=== PATIENT | male | born 1940 | race Asian ===

== ENCOUNTER 2017-09-03 23:12 | Inpatient (IN) | payer OTHER, MEDICARE ==
[2017-09-03 23:22] VITALS: BMI 26.9
--- NOTE | 2017-09-03 23:29 | PDOC ---
History of Present Illness - General Chief Complaint: Shortness of Breath Stated Complaint: TROUBLE BREATHING (PCP SENT) Time Seen by Provider: 09/03/17 23:26 History Source: Patient Exam Limitations: No Limitations - History of Present Illness Initial Comments: 09/03/17 23:30 Pt presents with h/o AMI in Jul of this year. Had [address] during catheterization. Pt has been compliant with his medications. Pt is on Aspirin , Plavix and Coumadin. Today pt has had worsening SOB. H/o CHF pt given total of Lasix 80mg by family and pt has been urinating frequently. Pt denies CP at this time. 09/04/17 00:11 PCP: Coleman Iverson Cardio: Coleman Acevedo Past History - Past Medical History Allergies/Adverse Reactions: Allergies Allergy/AdvReac Type Severity Reaction Status Date / Time No Known Allergies Allergy Verified 04/09/16 11:14 Home Medications: Ambulatory Orders Amiodarone HCl [Cordarone -] 200 mg PO DAILY 09/03/17 Aspirin [ASA -] 81 mg PO DAILY 09/03/17 Carvedilol [Coreg -] 6.25 mg PO BID 09/03/17 Clopidogrel Bisulfate [Plavix -] 75 mg PO DAILY 09/03/17 Furosemide [Lasix -] 40 mg PO DAILY 09/03/17 Hydralazine HCl 10 mg PO TID 09/03/17 Insulin Glargine,Hum.rec.anlog [Lantus Solostar PEN (NF)] 35 units SQ HS Insulin Regular [NOVOLIN R VIAL *IVPUSH / ER / ICU Only*] 0 units SQ TID Isosorbide Dinitrate [Isordil -] 20 mg PO TID 09/03/17 Pantoprazole Sodium [Protonix -] 40 mg PO BID 09/03/17 Rosuvastatin [Crestor -] 10 mg PO DAILY 09/03/17 Rosuvastatin [Crestor -] 10 mg PO HS 09/03/17 Tamsulosin HCl [Flomax -] 0.4 mg PO HS 09/03/17 Warfarin Sodium [Coumadin] 3 mg PO HS 09/03/17 Anemia: No Asthma: No Cancer: No Cardiac Disorders: Yes CVA: Yes (1999, NO RESIDUAL.) COPD: No CHF: Yes Dementia: No Diabetes: Yes GI Disorders: No Disorders: No HTN: Yes Hypercholesterolemia: No Liver Disease: No Seizures: No Thyroid Disease: No - Surgical History Abdominal Surgery: No Appendectomy: No Cardiac Surgery: Yes (STENTS X 2.) Cholecystectomy: No Lung Surgery: No Neurologic Surgery: No Orthopedic Surgery: Yes (RT SHOULDER) - Suicide/Smoking/Psychosocial Hx Smoking History: Never smoked Have you smoked in the past 12 months: No Hx Alcohol Use: No Drug/Substance Use Hx: No Substance Use Type: None Hx Substance Use Treatment: No Review of Systems - Review of Systems Constitutional: Yes: Symptoms Reported, See HPI. No: Chills, Diaphoresis, Fever , Loss of Appetite, Malaise, Night Sweats, Weakness, Weight Stable, Other HEENTM: Yes: Symptoms Reported, See HPI. No: Eye Pain, Blurred Vision, Tearing , Recent change in vision, Double Vision, Ear Pain, Ocular Prothesis, Ear Discharge, Nose Congestion, Nose Bleeding, Hearing Loss, Dental Problems Respiratory: Yes: Symptoms reported, Orthopnea, Shortness of Breath, SOB with Exertion, SOB at Rest. No: Wheezing, Productive cough, Hemoptysis, Other Cardiac (ROS): Yes: Symptoms Reported, See HPI. No: Chest Pain, Edema, Irregular Heart Rate, Lightheadedness, Palpitations, Syncope, Chest Tightness ABD/GI: Yes: Symptoms Reported, See HPI. No: Abdominal Distended, Abd. Pain w/ defecation, Blood Streaked Bowels, Constipated, Diarrhea, Difficulty Swallowing , Nausea, Poor Appetite, Poor Fluid Intake, Abdominal cramping : Yes: Symptoms Reported, See HPI. No: Burning, Dysuria, Discharge, Frequency , Flank Pain, Urgency, Other Musculoskeletal: Yes: Symptoms Reported, See HPI. No: Back Pain, Gout, Joint Pain, Joint Swelling, Muscle Weakness, Neck Pain Integumentary: Yes: Symptoms Reported, See HPI. No: Bruising, Change in Color, Change in Hair/Nails, Flushing, Lesions, Lumps Neurological: Yes: Symptoms reported, See HPI. No: Headache, Numbness, Paresthesia, Seizure, Weakness Psychiatric: No: Anxiety, Depression, Frequent Crying, Stressors, Sleep Pattern Change Endocrine: Yes: Symptoms Reported, See HPI. No: Excessive Sweating, Flushing, Intolerance to Cold, Intolerance to Heat, Increased Hunger Hematologic/Lymphatic: Yes: Symptoms Reported, See HPI. No: Anemia, Blood Clots , Easy Bleeding *Physical Exam - Vital Signs Last Vital Signs Temp Pulse Resp BP Pulse Ox 98.1 F 68 26 H 114/60 90 L 09/03/17 23:12 09/03/17 23:12 09/03/17 23:12 09/03/17 23:12 09/03/17 23:12 - Physical Exam Comments: 09/03/17 23:36 *Physical Exam General Appearance: Yes: Appropriately Dressed. No: Apparent Distress, Intoxicated HEENT: positive: EOMI, LUIS, Normal ENT Inspection, Normal Voice, TMs Normal, Pharynx Normal. negative: Pale Conjunctivae, Photophobia, Scleral Icterus (R), Scleral Icterus (L) Neck: positive: Trachea midline, Normal Thyroid, Supple. negative: Tender, Rigid, Carotid bruit, Stridor, Lymphadenopathy (R), Lymphadenopathy (L), Thyromegaly Respiratory/Chest: positive: decrease Breath Sounds. 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 negative: Edema , JVD, Murmur, Bradycardia, Tachycardia Vascular Pulses: Dorsalis-Pedis (R): 2+, Doralis-Pedis (L): 2+ Gastrointestinal/Abdominal: positive: Normal Bowel Sounds, Flat, Soft. negative : Tender, Organomegaly, Pulsatile Mass, Increased Bowel Sounds, Decreased BS, Distended, Guarding, Rebound, Hernia, Hepatomegaly, Spleenomegaly Lymphatic: negative: Adenopathy, Tenderness Musculoskeletal: positive: Normal Inspection. negative: CVA Tenderness, Decreased Range of Motion Extremity: positive: Normal Capillary Refill, Normal Inspection, Normal Range of Motion, Pelvis Stable. negative: Tender, Pedal Edema, Swelling, Erythema Integumentary: positive: Normal Color, Dry, Warm. 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 negative: EOM Palsy, Facial Droop, Sensory Deficit Heart Score/ECG Review - History History: Highly suspicious - Electrocardiogram EKG: Non specific repolarization disturbance - Age Age: >/= 65 - Risk Factors Risk Factors Heart Score: Yes Hx Hypercholesterolemia, Yes Hx Hypertension, Yes Hx Diabetes Based on the list above the patient has:: >/=3 risk factors or Hx atherosclerotic disease - Bingham Bingham: Left Bingham Deviation - ECG Impressions Normal ECG: No ED Treatment Course - LABORATORY CBC & Chemistry Diagram: 09/03/17 23:51 09/03/17 23:51 *DC/Admit/Observation/Transfer Diagnosis at time of Disposition: HTN (hypertension), Shortness of breath, Acute systolic CHF (congestive heart failure) - Discharge Dispostion Condition at time of disposition: Stable Admit: Yes - Referrals Referrals: Coleman Hess MD [Primary Care Provider] - - Patient Instructions - Post Discharge Activity
[2017-09-04 00:01] LABS: BASO % 0.4 % (0-2.0); HEMATOCRIT 29.4 % (35.4-49); HEMOGLOBIN 9.8 GM/dL (11.7-16.9); LYMPH % 6.5 % (8-40); MCH 25.6 pg (25.7-33.7); MCHC 33.4 g/dl (32.0-35.9); MEAN CELL VOLUME 76.5 fl (80-96); MONO % 6.5 % (3.8-10.2); NEUT % 85.6 % (42.8-82.8); PLATELET COUNT 140 K/MM3 (134-434); RBC 3.85 M/mm3 (4.00-5.60); RDW 16.5 % (11.9-15.9); WHITE BLOOD COUNT 8.8 K/mm3 (4.0-10.0)
[2017-09-04 00:13] LABS: INR 1.43 (0.82-1.09); PROTHROMBIN TIME (PATIENT) 16.2 SEC (9.98-11.88)
[2017-09-04 00:25] LABS: ALBUMIN 2.6 g/dl (3.4-5.0); ALK PHOS 98 U/L (45-117); ANION GAP 14 (8-16); BILIRUBIN,TOTAL 0.4 mg/dL (0.2-1.0); BLOOD UREA NITROGEN 85 mg/dL (7-18); CALCIUM 8.3 mg/dL (8.5-10.1); CHLORIDE 96 mmol/L (98-107); CHOLESTEROL 131 mg/dL (50-200); CO2 22 mmol/L (21-32); CREATININE 2.9 mg/dL (0.7-1.3); GLUCOSE,RANDOM 250 mg/dL (74-106); MAGNESIUM 2.6 mg/dL (1.8-2.4); SGOT/AST 24 U/L (15-37); SGPT/ALT 35 U/L (12-78); SODIUM 132 mmol/L (136-145); TOT PROT 6.8 g/dl (6.4-8.2); TRIGLYCERIDES 73 mg/dL (35-160)
[2017-09-04] MEDS ORDERED: ALBUTEROL SO4 2.5/IPRATROPIUM 0.5 INH SOL 3 ML VIAL.NEB. NEB STA (00:37)
[2017-09-04 00:40] LABS: HDL CHOLESTEROL 46 mg/dL (40-60); LDL CHOLESTEROL (ONLY SJRH) 70 mg/dL (5-100)
[2017-09-04] MEDS ORDERED: ALBUTEROL SO4 2.5/IPRATROPIUM 0.5 INH SOL 3 ML VIAL.NEB. NEB ONE ×2 (00:59→06:30)
[2017-09-04] MEDS ORDERED: WARFARIN NA 2 MG TABLET (UD) PO ONE (01:31)
[2017-09-04] MEDS ORDERED: WARFARIN NA 1 MG TABLET (FP) ONE (01:34)
[2017-09-04] MEDS ORDERED: FUROSEMIDE 40 MG/4 ML INJECTABLE VIAL IVPUSH SCH (06:00)
[2017-09-04] MEDS: hydrALAZINE HCL 10 MG TABLET PO SCH ×3 (06:18→21:38)
[2017-09-04] MEDS ORDERED: methylPREDNISolone NA SUCC 40 MG/1 ML VIAL IVPUSH ONE (06:30)
[2017-09-04] MEDS ORDERED: INSULIN SLIDING SCALE (NOVOLOG) 1 VIAL SQ SCH (07:00)
[2017-09-04] MEDS ORDERED: INSULIN (NOVOLOG) ASPART 100 UNITS/ML 10ML VIAL ONE (07:30)
[2017-09-04] MEDS ORDERED: ALBUTEROL SO4 2.5/IPRATROPIUM 0.5 INH SOL 3 ML VIAL.NEB. NEB SCH ×2 (07:45→08:00)
[2017-09-04] MEDS: ISOSORBIDE DINITRATE 10 MG TABLET (FP) PO SCH ×3 (08:27→18:38)
--- NOTE | 2017-09-04 08:57 | CON.CARD ---
Consult Consult Specialty:: cardiology Reason for Consultation:: recent CO-->PCI; now with dyspnea - History of Present Illness Chief Complaint: Pt alert; still easily short of breath, but feels better. 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 Had [address] during catheterization ([facility]); renal "shutdown" occurred, per , and pt had a prolonged course before discharge home. Pt has been compliant with his medications, which include Aspirin, Plavix , Coumadin, amiodarone, carvedilol, hydralazine, isordil, rosuvastatin, furosemide. Today pt has had worsening SOB. H/o CHF pt given total of Lasix 80mg by family and pt has been urinating frequently. Pt denies CP at this time. 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 No: Addictions, Bipolar, Depression, Panic, Psychosis, Schizophrenia, Other Endocrine: Yes: Diabetes Mellitus. No: [place]'s Disease, Laquita's Disease, Diabetes Insipidus, Hyperparathyroidism, Hyperthyroidism, Hypothyroidism, Osteopenia, SIADH, Other - Past Surgical History Past Surgical History: Yes: Stent - Alcohol/Substance Use Hx Alcohol Use: No History of Substance Use: reports: None - Smoking History Smoking history: Never smoked Have you smoked in the past 12 months: No - Social History Usual Living Arrangement: With Spouse ADL: Independent History of Recent Travel: No Home Medications - Allergies Allergies/Adverse Reactions: Allergies Allergy/AdvReac Type Severity Reaction Status Date / Time No Known Allergies Allergy Verified 04/09/16 11:14 - Home Medications Home Medications: Ambulatory Orders Amiodarone HCl [Cordarone -] 200 mg PO DAILY 09/03/17 Aspirin [ASA -] 81 mg PO DAILY 09/03/17 Carvedilol [Coreg -] 6.25 mg PO BID 09/03/17 Clopidogrel Bisulfate [Plavix -] 75 mg PO DAILY 09/03/17 Furosemide [Lasix -] 40 mg PO DAILY 09/03/17 Hydralazine HCl 10 mg PO TID 09/03/17 Insulin Glargine,Hum.rec.anlog [Lantus Solostar PEN (NF)] 35 units SQ HS Insulin Regular [NOVOLIN R VIAL *IVPUSH / ER / ICU Only*] 0 units SQ TID Isosorbide Dinitrate [Isordil -] 20 mg PO TID 09/03/17 Pantoprazole Sodium [Protonix -] 40 mg PO BID 09/03/17 Rosuvastatin [Crestor -] 10 mg PO DAILY 09/03/17 Rosuvastatin [Crestor -] 10 mg PO HS 09/03/17 Tamsulosin HCl [Flomax -] 0.4 mg PO HS 09/03/17 Warfarin Sodium [Coumadin] 3 mg PO HS 09/03/17 Acetaminophen [Tylenol -] 650 mg PO Q8H PRN 09/04/17 Nitroglycerin Sublingual [Nitrostat -] 0.4 mg SL PRN PRN 09/04/17 Family Disease History - Family Disease History Family History: Denies Review of Systems - Review of Systems Constitutional: reports: Weakness Eyes: reports: No Symptoms HENT: reports: No Symptoms Neck: reports: No Symptoms Cardiovascular: reports: Shortness of Breath Respiratory: reports: SOB Gastrointestinal: reports: No Symptoms Genitourinary: reports: No Symptoms Musculoskeletal: reports: Muscle Weakness Integumentary: reports: No Symptoms Neurological: reports: Unsteady Gait, Weakness Endocrine: reports: No Symptoms Hematology/Lymphatic: reports: No Symptoms Psychiatric: reports: Anxiety, Depression - Risk Factors Known Risk Factors: Yes: Age, Diabetes Mellitus, Gender, Hypercholesterolemia ( CVA; ?VT-->amiodarone), Hypertension, Physical Inactivity, Prior CO /Emb Stroke Vital Signs: Vital Signs Temperature 98.2 F 09/04/17 02:10 Pulse Rate 70 09/04/17 02:10 Respiratory Rate 18 09/04/17 02:10 Blood Pressure 133/76 09/04/17 02:10 O2 Sat by Pulse Oximetry (%) 94 L 09/04/17 02:10 Constitutional: Yes: Anxious, Mild Distress Eyes: Yes: WNL HENT: Yes: WNL Neck: Yes: WNL Respiratory: Yes: Diminished, Rales, Wheezes Gastrointestinal: Yes: Soft Renal/: No: Anuria Cardiovascular: Yes: Regular Rate and Rhythm JVD: Yes Carotid Bruit: No PMI: Displaced Heart Sounds: Yes: S1, Split S2 Murmur: Yes: Systolic Murmur, Grade 2 Musculoskeletal: Yes: Muscle Weakness Extremities: Yes: Cool Edema: Yes Edema: LLE: Trace, RLE: Trace Peripheral Pulses WNL: Yes Integumentary: Yes: WNL Neurological: Yes: Alert, Unsteady Gait, Weakness Psychiatric: Yes: Other - Other Data Labs, Other Data: CBC, BMP 09/03/17 23:51 09/03/17 23:51 INR, PTT INR 1.43 (0.82-1.09) H D 09/03/17 23:51 Troponin, BNP 09/03/17 09/03/17 23:51 23:51 Troponin I 0.03 D B-Natriuretic Peptide 29966.49 H Troponin, BNP 09/03/17 09/03/17 23:51 23:51 Troponin I 0.03 D B-Natriuretic Peptide 46292.49 H Abnormal Lab Results 09/04/17 09/04/17 09/04/17 08:10 08:10 11:40 PT with INR 16.80 H INR 1.49 H PTT (Actin FS) Sodium 131 L BUN 88 H Creatinine 3.0 H Random Glucose 213 H Calcium 8.0 L U Random Total Protein 48 H 09/04/17 09/05/17 17:15 06:30 PT with INR 22.00 H INR 1.95 H D PTT (Actin FS) 69.7 H D Sodium BUN Creatinine Random Glucose Calcium U Random Total Protein Echo: Pending Prior Cardiac Procedures: Cardiac Catheterization, PTCA with Stent Imaging - Results Chest X-ray: Image Reviewed (moderate congestive changes) EKG: Image Reviewed (NSR; LAD; LVH; Qs in II, III, aVF (inferior wall CO)) Problem List - Problems (1) HTN (hypertension) Assessment/Plan: On carvedilol for systolic CHF, HTN, CAD, s/p CO. On hydralazine + Isordil for systolic CHF, HTN. (Ongoing renal dysfunction precludes ACEI or ARB). On furosemide for systolic CHF, HTN, though renal status will have to be followed closely, as discussed with nephrology team. Code(s): I10 - ESSENTIAL (PRIMARY) HYPERTENSION (2) Status post myocardial infarction Assessment/Plan: Recent (07/2017) CO treated at [facility] with several coronary stents. On amiodarone 200 mg daily, likely for VT or VF elin-CO (to obtain records for precise reason necessitating use of this medication). Monitor closely for side effects. Pt is on statin, diuretic, and warfarin, all of which may influence amiodarone. Increase dose of carvedilol as tolerated (CO; systolic CHF; arrhythmia). Code(s): I25.2 - OLD MYOCARDIAL INFARCTION (3) CVA (cerebral infarction) Assessment/Plan: left lacunar infarct, right encephalomalacia noted on [address] CT. Code(s): I63.9 - CEREBRAL INFARCTION, UNSPECIFIED (4) Diabetes mellitus Code(s): E11.9 - TYPE 2 DIABETES MELLITUS WITHOUT COMPLICATIONS Qualifiers: Diabetes mellitus complication status: with ophthalmic complications Diabetes mellitus complication detail: with diabetic retinopathy (5) Hx of heart artery stent Assessment/Plan: Obtain records from [facility]. Code(s): Z95.5 - PRESENCE OF CORONARY ANGIOPLASTY IMPLANT AND GRAFT (6) Non-sustained ventricular tachycardia Assessment/Plan: Obtain [facility] records; pt has been on amiodarone started during treatment for CO last month. Optimize carvedilol. Code(s): I47.2 - VENTRICULAR TACHYCARDIA (7) Renal dysfunction Assessment/Plan: Pt underwent several coronary stents as treatment for recent CO; renal shutdown apparently ensued post-procedure, resulting in several days in ICU. Pt Code(s): N28.9 - DISORDER OF KIDNEY AND URETER, UNSPECIFIED (8) Acute on chronic systolic CHF (congestive heart failure) Assessment/Plan: Pt has been symptomatic for several days; +JVD; rales and expiratory wheezes on ausculatation; congestive changes on CXR. On carvedilol, amiodarone, hydralazine+isordil. (Renal dysfunction precludes ACEI or ARB presently). F/u records from [facility] (ECHO, stents, clinical course). As discussed with rehabilitation specialist, because of acute CHF, furosemide to be continued while closely monitoring renal parameters. Keep electrolytes WNL; this is especially important with pt taking amiodarone. BUN/Cr, electrolytes, daily weight, Is and Os. Code(s): I50.23 - ACUTE ON CHRONIC SYSTOLIC (CONGESTIVE) HEART FAILURE (9) Anxiety and depression Assessment/Plan: Pt denies, though cries several times during interview (this may also be due to residual effects of CVA). Code(s): F41.8 - OTHER SPECIFIED ANXIETY DISORDERS (10) LV (left ventricular) mural thrombus Assessment/Plan: On warfarin (stop IV heparin when INR approaches 2.0). Records of recent ECHOs done at [facility]. Code(s): ENG1472 -
[2017-09-04 09:03] LABS: INR 1.49 (0.82-1.09); PROTHROMBIN TIME (PATIENT) 16.8 SEC (9.98-11.88)
[2017-09-04] MEDS: PANTOPRAZOLE 40 MG TABLET (FP) PO SCH ×2 (09:03→21:38)
[2017-09-04] MEDS: CLOPIDOGREL BISULFATE 75 MG TABLET (FP) PO SCH (09:03)
[2017-09-04] MEDS: ASPIRIN COATED 81 MG TABLET.EC PO SCH (09:03)
[2017-09-04] MEDS: AMIODARONE HCL 200 MG TABLET (FP) PO SCH (09:03)
[2017-09-04] MEDS: CARVEDILOL 6.25 MG TABLET (FP) PO SCH ×2 (09:03→21:38)
[2017-09-04] MEDS ORDERED: HEPARIN NA (PORCINE) 5,000 UNITS/ML 1ML VIAL IVPUSH PRN ×2 (09:40)
[2017-09-04] MEDS ORDERED: HEPARIN SOD,PORK IN 0.45% NACL 25,000 UNITS/500 ML INFUS.BAG IVPB SCH (09:45)
[2017-09-04] MEDS ORDERED: CEFTRIAXONE 1 GM in DEXTROSE 5%-WATER - 50 ML IVPB SCH (10:00)
--- NOTE | 2017-09-04 10:23 | CONSULT ---
Consultation: REQUESTING PROVIDER: Dr. Coleman Hess CONSULT REQUEST: We have been asked to medically evaluate this patient for THEE on CKD HISTORY OF PRESENT ILLNESS: Patient is a 77 year old male with a PMHx of CAD s/p WI (recently on 07/2017) and s/p 5 stent placement, HTN, HLD, IDDMII, Diastolic CHF, CKD, BPH who presented for to the hospital for severe shortness of breath that worsened in the last 24 hours. According to the patient and his , patient was recently discharged from [facility] after suffering an acute WI with 5 stents placed. Patient was placed on several medications but his Creatinine and BUN were elevated after the contrast. In the ED patient was found to have THEE with an elevated BNP >14k. Patient otherwise denies fever, chills, nausea, vomiting , diarrhea, abdominal pain, chest pain, palpitations, headaches, dysuria, hematuria, acute vision changes. REVIEW OF SYSTEMS: CONSTITUTIONAL: Absent: fever, chills, diaphoresis, generalized weakness, malaise, loss of appetite, weight change HEENT: Absent: rhinorrhea, nasal congestion, throat pain, throat swelling, difficulty swallowing, mouth swelling, ear pain, eye pain, visual changes CARDIOVASCULAR: Absent: chest pain, syncope, palpitations, irregular heart rate, lightheadedness , peripheral edema RESPIRATORY: (+) shortness of breath, dyspnea with exertion, orthopnea, wheezing Absent: cough, stridor, hemoptysis GASTROINTESTINAL: Absent: abdominal pain, abdominal distension, nausea, vomiting, diarrhea, constipation, melena, hematochezia GENITOURINARY: Absent: dysuria, frequency, urgency, hesitancy, hematuria, flank pain, genital pain MUSCULOSKELETAL: Absent: myalgia, arthralgia, joint swelling, back pain, neck pain SKIN: Absent: rash, itching, pallor HEMATOLOGIC/IMMUNOLOGIC: Absent: easy bleeding, easy bruising, lymphadenopathy, frequent infections ENDOCRINE: Absent: unexplained weight gain, unexplained weight loss, heat intolerance, cold intolerance NEUROLOGIC: Absent: headache, focal weakness or paresthesias, dizziness, unsteady gait, seizure, mental status changes, bladder or bowel incontinence PSYCHIATRIC: Absent: anxiety, depression, suicidal or homicidal ideation, hallucinations. PHYSICAL EXAMINATION Vital Signs - 24 hr 09/03/17 09/03/17 09/04/17 23:12 23:18 01:40 Temperature 98.1 F Pulse Rate 68 67 Pulse Rate [ Apical] Respiratory 26 H Rate Blood Pressure 114/60 Blood Pressure [Right Arm] O2 Sat by Pulse 90 L 89 L 96 Oximetry (%) 09/04/17 09/04/17 09/04/17 01:53 01:54 02:00 Temperature 98.2 F Pulse Rate 70 Pulse Rate [ 70 Apical] Respiratory 20 18 Rate Blood Pressure 133/76 Blood Pressure 135/78 [Right Arm] O2 Sat by Pulse 97 96 Oximetry (%) 09/04/17 02:10 Temperature 98.2 F Pulse Rate 70 Pulse Rate [ Apical] Respiratory 18 Rate Blood Pressure 133/76 Blood Pressure [Right Arm] O2 Sat by Pulse 94 L Oximetry (%) GENERAL: Awake, alert, and fully oriented, in no acute distress. HEAD: Normal with no signs of trauma. EYES: Pupils equal, round and reactive to light, extraocular movements intact, sclera anicteric, conjunctiva clear. EARS, NOSE, THROAT: Oropharynx clear without exudates. Moist mucous membranes. NECK: Normal range of motion, supple without lymphadenopathy, JVD, or masses. LUNGS: Bibasilar rales throughout lung bases bilaterally with expiratory wheezing. HEART: Regular rate and rhythm, normal S1 and S2 ABDOMEN: Soft, nontender, not distended, normoactive bowel sounds, no guarding, no rebound, no masses. MUSCULOSKELETAL: No CVA tenderness. EXTREMITIES: No peripheral edema. NEUROLOGICAL: Cranial nerves II-XII intact. Normal speech. PSYCHIATRIC: Cooperative. Good eye contact. Appropriate mood and affect. SKIN: Warm, dry, normal turgor Laboratory Results - last 24 hr CBC, BMP 09/03/17 23:51 09/04/17 08:10 Laboratory Tests 09/03/17 09/03/17 09/04/17 23:51 23:51 08:10 Calcium 8.0 L B-Natriuretic Peptide 41844.49 H Albumin 2.6 L Active Medications Generic Name Dose Route Start Last Admin Trade Name Freq PRN Reason Stop Dose Admin Albuterol/Ipratropium 1 amp 09/04/17 09:04 Duoneb - NEB RQID COREY Amiodarone HCl 200 mg 09/04/17 10:00 09/04/17 09:03 Cordarone - PO 200 mg DAILY COREY Administration Aspirin 81 mg 09/04/17 10:00 09/04/17 09:03 Ecotrin - PO 81 mg DAILY COREY Administration Carvedilol 6.25 mg 09/04/17 10:00 09/04/17 09:03 Coreg - PO 6.25 mg BID COREY Administration Clopidogrel Bisulfate 75 mg 09/04/17 10:00 09/04/17 09:03 Plavix - PO 75 mg DAILY COREY Administration Furosemide 40 mg 09/04/17 06:00 09/04/17 06:17 Lasix Injection - IVPUSH 40 mg BIDLASIX COREY Administration Heparin Sodium (Porcine) 1,000 unit 09/04/17 09:40 Heparin - IVPUSH PRN PRN Heparin Heparin Sodium (Porcine) 5,000 unit 09/04/17 09:40 Heparin - IVPUSH PRN PRN Heparin Hydralazine HCl 10 mg 09/04/17 06:00 09/04/17 06:18 Apresoline - PO 10 mg TID COREY Administration CEFTRIAXONE 1 G/50 ML PREMIX 50 mls @ 100 mls/hr 09/04/17 08:00 Ceftriaxone 1 Gm-D5w Bag IVPB DAILY COREY HEPARIN SOD,PORK IN 0.45% NACL 25,000 units in 500 mls @ 20 mls/hr 09/04/17 09 :45 Heparin-1/2ns 25,000 Units/500 IVPB TITR [facility] Protocol 1,000 UNITS/HR Insulin Aspart 1 vial 09/04/17 07:42 Novolog Vial Sliding Scale - SQ TIDAC [facility] Protocol Insulin Detemir 35 units 09/04/17 22:00 Levemir Vial SQ HS [facility] Isosorbide Dinitrate 10 mg 09/04/17 08:00 09/04/17 08:27 Isordil - PO 10 mg TIDISORDIL COREY Administration Pantoprazole Sodium 40 mg 09/04/17 10:00 09/04/17 09:03 Protonix - PO 40 mg BID COREY Administration Rosuvastatin Calcium 10 mg 09/04/17 22:00 Crestor - PO HS COREY Tamsulosin HCl 0.4 mg 09/04/17 22:00 Flomax - PO HS [facility] ASSESSMENT/PLAN: Patient is a 77 year old male who presented for shortness of breath and was found to have THEE and Acute CHF. Patient admitted for further monitoring and management. THEE on CKD -Secondary to contrast induced Nephropathy. Patient was recently hospitalized in [place] for acute WI and contrast was given, likely causing his THEE. Patient has CKD with baseline Creatinine of 1.8 and therefore the THEE from the contrast will take longer to recover -Clinical picture is also consistent with Cardio Renal Syndrome with a BNP >14, 000 and crackles on physical exam. Patient likely has acute CHF from the Acute on chronic kidney disease. -No indication for emergent dialysis -Will need to continue diureses and will increase from Lasix 40mg BID to 80mg IV BID. -Urine electrolytes and Urea ordered to calculate FeNa -Renal U/S ordered -Patient's reports he was taking Ramipril but was discontinued due to his worsening kidney function. Will hold CHENTE/ARBs for now. -Avoid Nephrotoxic medications -Renally dose medications -Continue Flomax 0.4mg daily -Continue to monitor BMP daily Acute Diastolic CHF -Continue Lasix 80mg IV BID. -Continue home medications, as per cardiology -Cardiology following with recommendations appreciated HypoNatremia -Secondary to cardiorenal syndrome -Will continue to duirese as it should improve hyponatremia -Continue to monitor BMP HTN -Continue home medication Hydralazine and Coreg -Continue to monitor BP IDDMII -ISS -BGM Dispo: We will continue to follow the patient. Thank you for this consultative opportunity. Luna Kate [id number] Visit type - Emergency Visit Emergency Visit: Yes ED Registration Date: 09/04/17 Care time: The patient presented to the Emergency Department on the above date and was hospitalized for further evaluation of their emergent condition. - New Patient This patient is new to me today: Yes Date on this admission: 09/04/17 - Critical Care Critical Care patient: No
[2017-09-04 10:50] LABS: ANION GAP 10 (8-16); BLOOD UREA NITROGEN 88 mg/dL (7-18); CHLORIDE 98 mmol/L (98-107); CO2 23 mmol/L (21-32); GLUCOSE,RANDOM 213 mg/dL (74-106); POTASSIUM 4.5 mmol/L (3.5-5.1); SODIUM 131 mmol/L (136-145)
[2017-09-04] MEDS: ALBUTEROL SO4 2.5/IPRATROPIUM 0.5 INH SOL 3 ML VIAL.NEB. NEB SCH ×3 (11:28→20:34)
[2017-09-04] MEDS: CEFTRIAXONE 1 G/50 ML PREMIX 50 ML IVPB SCH ×2 (11:57→11:58)
[2017-09-04] MEDS: INSULIN SLIDING SCALE (NOVOLOG) 1 VIAL SQ SCH ×2 (11:57→17:15)
--- NOTE | 2017-09-04 12:24 | EKG ---
Test Reason : Blood Pressure : / mmHG Vent. Rate : 069 BPM Atrial Rate : 069 BPM P-R Int : 206 ms QRS Dur : 096 ms QT Int : 424 ms P-R-T Axes : 028 -61 100 degrees QTc Int : 454 ms NORMAL SINUS RHYTHM POSSIBLE LEFT ATRIAL ENLARGEMENT LEFT AXIS DEVIATION LEFT VENTRICULAR HYPERTROPHY WITH REPOLARIZATION ABNORMALITY INFERIOR INFARCT , AGE UNDETERMINED ANTEROSEPTAL INFARCT (CITED ON OR BEFORE 02-JAN-2015) ABNORMAL ECG WHEN COMPARED WITH ECG OF 10-APR-2016 08:48, INFERIOR INFARCT IS NOW PRESENT T WAVE INVERSION LESS EVIDENT IN LATERAL LEADS Confirmed by GRACIELA GONZÁLES MD ([id number]) on 09/04/2017 12:24:38 PM Referred By: Confirmed By:GRACIELA GONZÁLES MD
--- NOTE | 2017-09-04 15:15 | PN ---
Teaching Attending Note Name of Resident: Luna Kate (Nephrology) ATTENDING PHYSICIAN STATEMENT I saw and evaluated the patient. I reviewed the resident's note and discussed the case with the resident. I agree with the resident's findings and plan as documented. SUBJECTIVE: 77 year old gentleman with PMhx of CAD s/p recent DC and cardiac cath, Hypertension, HLD, IDDM, CHF, BPH who presented with SOB and admitted for CHF exacerbation with Cr of 3. Pt has acute renal failure following cardiac cath at [facility] with peak Cr ~4. Pt is making urine. SOB is improving. NO NSIAD use. PMhx: as above Allergies: NKDA Family Hx: NC social hx: No T/A/D ROS: + SOB, No CP, no Abd pain, no N/V/D, no rash. all other pertinent ros negative Home Medications Medication Instructions Recorded Amiodarone HCl [Cordarone -] 200 mg PO DAILY 09/03/17 Aspirin [ASA -] 81 mg PO DAILY 09/03/17 Carvedilol [Coreg -] 6.25 mg PO BID 09/03/17 Clopidogrel Bisulfate [Plavix -] 75 mg PO DAILY 09/03/17 Furosemide [Lasix -] 40 mg PO DAILY 09/03/17 Hydralazine HCl 10 mg PO TID 09/03/17 Insulin Glargine,Hum.rec.anlog 35 units SQ HS 09/03/17 [Lantus Solostar PEN (NF)] Insulin Regular [NOVOLIN R VIAL 0 units SQ TID 09/03/17 *IVPUSH / ER / ICU Only*] Isosorbide Dinitrate [Isordil -] 20 mg PO TID 09/03/17 Pantoprazole Sodium [Protonix -] 40 mg PO BID 09/03/17 Rosuvastatin [Crestor -] 10 mg PO DAILY 09/03/17 Rosuvastatin [Crestor -] 10 mg PO HS 09/03/17 Tamsulosin HCl [Flomax -] 0.4 mg PO HS 09/03/17 Warfarin Sodium [Coumadin] 3 mg PO HS 09/03/17 Acetaminophen [Tylenol -] 650 mg PO Q8H PRN 09/04/17 Nitroglycerin Sublingual 0.4 mg SL PRN PRN 09/04/17 [Nitrostat -] OBJECTIVE: Vital Signs Temperature 98.2 F 09/04/17 13:32 Pulse Rate 78 09/04/17 13:32 Respiratory Rate 20 09/04/17 13:32 Blood Pressure 118/62 09/04/17 13:32 O2 Sat by Pulse Oximetry (%) 94 L 09/04/17 10:00 NAD awake and alert RRR, NO M/R + rales soft NT/ND NO LE edema CBC, BMP 09/03/17 23:51 09/04/17 08:10 Current Medications Albuterol/Ipratropium (Duoneb -) 1 amp NEB RQID [facility] Last Admin: 09/04/17 11:28 Dose: 1 amp Amiodarone HCl (Cordarone -) 200 mg PO DAILY [facility] Last Admin: 09/04/17 09:03 Dose: 200 mg Aspirin (Ecotrin -) 81 mg PO DAILY [facility] Last Admin: 09/04/17 09:03 Dose: 81 mg Carvedilol (Coreg -) 6.25 mg PO BID [facility] Last Admin: 09/04/17 09:03 Dose: 6.25 mg Clopidogrel Bisulfate (Plavix -) 75 mg PO DAILY [facility] Last Admin: 09/04/17 09:03 Dose: 75 mg Furosemide (Lasix Injection -) 80 mg IVPUSH BIDLASIX [facility] Heparin Sodium (Porcine) (Heparin -) 1,000 unit IVPUSH PRN PRN PRN Reason: Heparin Heparin Sodium (Porcine) (Heparin -) 5,000 unit IVPUSH PRN PRN PRN Reason: Heparin Hydralazine HCl (Apresoline -) 10 mg PO TID [facility] Last Admin: 09/04/17 06:18 Dose: 10 mg CEFTRIAXONE 1 G/50 ML PREMIX (Ceftriaxone 1 Gm-D5w Bag) 50 mls @ 100 mls/hr IVPB DAILY [facility] Last Admin: 09/04/17 11:58 Dose: Not Given HEPARIN SOD,PORK IN 0.45% NACL (Heparin-1/2ns 25,000 Units/500) 25,000 units in 500 mls @ 20 mls/hr IVPB TITR COREY; 1,000 UNITS/HR PRN Reason: Protocol Last Admin: 09/04/17 11:57 Dose: 1,000 units/hr, 20 mls/hr Insulin Aspart (Novolog Vial Sliding Scale -) 1 vial SQ TIDAC [facility] PRN Reason: Protocol Last Admin: 09/04/17 11:57 Dose: 6 units Insulin Detemir (Levemir Vial) 35 units SQ HS [facility] Isosorbide Dinitrate (Isordil -) 10 mg PO TIDISORDIL [facility] Last Admin: 09/04/17 13:22 Dose: 10 mg Pantoprazole Sodium (Protonix -) 40 mg PO BID [facility] Last Admin: 09/04/17 09:03 Dose: 40 mg Rosuvastatin Calcium (Crestor -) 10 mg PO HS C[facility] Tamsulosin HCl (Flomax -) 0.4 mg PO HS [facility] ASSESSMENT AND PLAN: 77 year old gentleman with PMhx of CAD s/p recent DC and cardiac cath, Hypertension, HLD, IDDM, CHF, BPH who presented with SOB and admitted for CHF exacerbation with Cr of 3 #Acute Renal failure secondary to SOSA with volume overload NO acute indication for ELECTROPLATING TECHNICIAN check FeUrea, UPCR check US of the kidney and blader Increase Lasix to 80mg BID IV trend renal function and electrolytes dose all meds for CrCl less then 20 hold CHENTE/ARB continue Flomax Florencio Del Cid DO
[2017-09-04] MEDS: FUROSEMIDE 40 MG/4 ML INJECTABLE VIAL IVPUSH SCH (16:03)
--- NOTE | 2017-09-04 19:21 | HP ---
Admitting History and Physical - Primary Care Physician PCP: Coleman Hess - Admission Chief Complaint: SOB. CHF. Pneumonia History of Present Illness: 77 y/o who had acute MS about three weeks ago and was at [facility] and underwent cardiac cath and placement of 5 stents. Developed acute kidney failure due to IV dye and was in patient for three weeks and did not require HD. He was initially started on Brilinta and developed GI bleed he was then maintained on ASA 81 and Plavix 75 and Protonix. He is also on Coumadin due to ventricular thrombus. He has CHF, HTN, HLD ,DM on Insulin. He has been home for the last nine days and developed severe CHF with wheezing and was brought to ED. BNP was very high and chest XRAY showed congestion and bilateral infiltrates and he was started on BD, IV Rocephin and was also given one dose of IV Slumedrol. He now feels less dyspneic, no chest pain, no palpitations. 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 No: Addictions, Bipolar, Depression, Panic, Psychosis, Schizophrenia, Other Endocrine: Yes: Diabetes Mellitus. No: Angelo's Disease, Delphos's Disease, Diabetes Insipidus, Hyperparathyroidism, Hyperthyroidism, Hypothyroidism, Osteopenia, SIADH, Other - Past Surgical History Past Surgical History: Yes: Stent - Advance Directives Advance Directives: Yes: Living Will - Smoking History Smoking history: Never smoked Have you smoked in the past 12 months: No - Alcohol/Substance Use Hx Alcohol Use: No History of Substance Use: reports: None - Social History ADL: Independent History of Recent Travel: No Home Medications - Allergies Allergies/Adverse Reactions: Allergies Allergy/AdvReac Type Severity Reaction Status Date / Time No Known Allergies Allergy Verified 04/09/16 11:14 - Home Medications Home Medications: Ambulatory Orders Amiodarone HCl [Cordarone -] 200 mg PO DAILY 09/03/17 Aspirin [ASA -] 81 mg PO DAILY 09/03/17 Carvedilol [Coreg -] 6.25 mg PO BID 09/03/17 Clopidogrel Bisulfate [Plavix -] 75 mg PO DAILY 09/03/17 Furosemide [Lasix -] 40 mg PO DAILY 09/03/17 Hydralazine HCl 10 mg PO TID 09/03/17 Insulin Glargine,Hum.rec.anlog [Lantus Solostar PEN (NF)] 35 units SQ HS Insulin Regular [NOVOLIN R VIAL *IVPUSH / ER / ICU Only*] 0 units SQ TID Isosorbide Dinitrate [Isordil -] 20 mg PO TID 09/03/17 Pantoprazole Sodium [Protonix -] 40 mg PO BID 09/03/17 Rosuvastatin [Crestor -] 10 mg PO DAILY 09/03/17 Rosuvastatin [Crestor -] 10 mg PO HS 09/03/17 Tamsulosin HCl [Flomax -] 0.4 mg PO HS 09/03/17 Warfarin Sodium [Coumadin] 3 mg PO HS 09/03/17 Acetaminophen [Tylenol -] 650 mg PO Q8H PRN 09/04/17 Nitroglycerin Sublingual [Nitrostat -] 0.4 mg SL PRN PRN 09/04/17 Review of Systems - Review of Systems Constitutional: reports: Weakness Eyes: reports: No Symptoms HENT: reports: No Symptoms Neck: reports: No Symptoms Cardiovascular: reports: Shortness of Breath Respiratory: reports: SOB, Wheezing Gastrointestinal: reports: No Symptoms Genitourinary: reports: No Symptoms Musculoskeletal: reports: No Symptoms Integumentary: reports: No Symptoms Neurological: reports: No Symptoms Endocrine: reports: No Symptoms Hematology/Lymphatic: reports: No Symptoms Psychiatric: reports: Anxiety Physical Examination Vital Signs: Vital Signs Temperature 98.2 F 09/04/17 13:32 Pulse Rate 78 09/04/17 13:32 Respiratory Rate 20 09/04/17 13:32 Blood Pressure 118/62 09/04/17 13:32 O2 Sat by Pulse Oximetry (%) 94 L 09/04/17 10:00 Constitutional: Yes: Well Nourished, Moderate Distress Eyes: Yes: Conjunctiva Clear, EOM Intact HENT: Yes: WNL Neck: Yes: Supple Cardiovascular: Yes: Regular Rate and Rhythm, S1, S2 Respiratory: Yes: Rales, Wheezes Gastrointestinal: Yes: Normal Bowel Sounds, Soft Renal/: Yes: WNL Breast(s): Yes: WNL Musculoskeletal: Yes: WNL Extremities: Yes: WNL Edema: LLE: 1+, RLE: 1+ Peripheral Pulses WNL: Yes Integumentary: Yes: WNL Neurological: Yes: Alert, Oriented ...Motor Strength: WNL Psychiatric: Yes: Alert, Oriented Labs: CBC, BMP 09/03/17 23:51 09/04/17 08:10 Imaging - Results Chest X-ray: Report Reviewed, Image Reviewed EKG: Report Reviewed, Image Reviewed (Inferior infarct which is new) Problem List - Problems (1) Pneumonia Assessment/Plan: Chest Xray shows bilateral infiltrates and congestion. WBC is normal and he is afebrile, has been stated on IV Rocephin Code(s): J18.9 - PNEUMONIA, UNSPECIFIED ORGANISM (2) Acute on chronic systolic CHF (congestive heart failure) Assessment/Plan: Started on IV Lasix, dose increased to 80mg IV due to poor renal function Code(s): I50.23 - ACUTE ON CHRONIC SYSTOLIC (CONGESTIVE) HEART FAILURE (3) Anemia Assessment/Plan: Had a recent5 episode of GI bleed due to Brilinta and was started on Pantoprazole at [facility]. Code(s): D64.9 - ANEMIA, UNSPECIFIED (4) Chronic renal disease Assessment/Plan: Recent episode of anuria following IV dye used for cardiac cath and has recovered some renal function.Also possibility of superimposed diabetic nephropathy Code(s): N18.9 - CHRONIC KIDNEY DISEASE, UNSPECIFIED (5) HTN (hypertension) Assessment/Plan: Well controlled Code(s): I10 - ESSENTIAL (PRIMARY) HYPERTENSION (6) LV (left ventricular) mural thrombus Code(s): TNW0015 - (7) Shortness of breath Code(s): R06.02 - SHORTNESS OF BREATH (8) Diabetes mellitus Code(s): E11.9 - TYPE 2 DIABETES MELLITUS WITHOUT COMPLICATIONS Qualifiers: Diabetes mellitus complication status: with ophthalmic complications Diabetes mellitus complication detail: with diabetic retinopathy Assessment/Plan Continue IV Lasix, Continue Albuterol/ipratropium inhalation, Continue IV Rocephin. Cold agglutinins to r/o mycoplasmaC Cardiology consult with and nephrology consult with
[2017-09-04] MEDS: TAMSULOSIN HCL 0.4 MG CAP.ER.24H (FP) PO SCH (21:38)
[2017-09-04] MEDS: ROSUVASTATIN CA 10 MG TABLET (FP) PO SCH (21:38)
[2017-09-04] MEDS: INSULIN DETEMIR 100 UNITS/ML MDV SQ SCH (21:38)
[2017-09-05] MEDS: hydrALAZINE HCL 10 MG TABLET PO SCH ×3 (05:57→21:06)
[2017-09-05] MEDS: FUROSEMIDE 40 MG/4 ML INJECTABLE VIAL IVPUSH SCH (05:58)
[2017-09-05] MEDS: INSULIN SLIDING SCALE (NOVOLOG) 1 VIAL SQ SCH ×4 (06:00→17:26)
[2017-09-05 07:36] LABS: INR 1.95 (0.82-1.09)
[2017-09-05] MEDS: ALBUTEROL SO4 2.5/IPRATROPIUM 0.5 INH SOL 3 ML VIAL.NEB. NEB SCH ×4 (08:12→20:40)
[2017-09-05] MEDS ORDERED: WARFARIN NA 2 MG TABLET (UD) PO ONE ×2 (09:37→18:00)
--- NOTE | 2017-09-05 09:46 | PN ---
Progress Note, Physician History of Present Illness: 78 yr old man (linnea Kingsley; of MD on staff at [facility]) presents with h/o AMI 07/2017. Had [address] during catheterization ([facility]); renal "shutdown" occurred, per , and pt had a prolonged course before discharge home. Pt has been compliant with his medications, which include Aspirin, Plavix , Coumadin, amiodarone, carvedilol, hydralazine, isordil, rosuvastatin, furosemide. Today pt has had worsening SOB. H/o CHF pt given total of Lasix 80mg by family and pt has been urinating frequently. Pt denies CP at this time. - Current Medication List Current Medications: Active Medications Albuterol/Ipratropium (Duoneb -) 1 amp NEB RQID [facility] Last Admin: 09/05/17 08:12 Dose: 1 amp Amiodarone HCl (Cordarone -) 200 mg PO DAILY [facility] Last Admin: 09/04/17 09:03 Dose: 200 mg Aspirin (Ecotrin -) 81 mg PO DAILY [facility] Last Admin: 09/04/17 09:03 Dose: 81 mg Carvedilol (Coreg -) 6.25 mg PO BID [facility] Last Admin: 09/04/17 21:38 Dose: 6.25 mg Clopidogrel Bisulfate (Plavix -) 75 mg PO DAILY [facility] Last Admin: 09/04/17 09:03 Dose: 75 mg Furosemide (Lasix Injection -) 80 mg IVPUSH BIDLASIX [facility] Last Admin: 09/05/17 05:58 Dose: 80 mg Hydralazine HCl (Apresoline -) 10 mg PO TID [facility] Last Admin: 09/05/17 05:57 Dose: 10 mg CEFTRIAXONE 1 G/50 ML PREMIX (Ceftriaxone 1 Gm-D5w Bag) 50 mls @ 100 mls/hr IVPB DAILY [facility] Last Admin: 09/04/17 11:58 Dose: Not Given Insulin Aspart (Novolog Vial Sliding Scale -) 1 vial SQ TIDAC [facility] PRN Reason: Protocol Last Admin: 09/05/17 06:00 Dose: 10 units Insulin Detemir (Levemir Vial) 35 units SQ HS [facility] Last Admin: 09/04/17 21:38 Dose: 35 units Isosorbide Dinitrate (Isordil -) 10 mg PO TIDISORDIL [facility] Last Admin: 09/04/17 18:38 Dose: 10 mg Pantoprazole Sodium (Protonix -) 40 mg PO BID [facility] Last Admin: 09/04/17 21:38 Dose: 40 mg Rosuvastatin Calcium (Crestor -) 10 mg PO HS [facility] Last Admin: 09/04/17 21:38 Dose: 10 mg Tamsulosin HCl (Flomax -) 0.4 mg PO [facility] Last Admin: 09/04/17 21:38 Dose: 0.4 mg - Objective Vital Signs: Vital Signs Temperature 97.6 F 09/05/17 06:00 Pulse Rate 50 L 09/05/17 06:00 Respiratory Rate 18 09/05/17 06:00 Blood Pressure 125/57 09/05/17 06:00 O2 Sat by Pulse Oximetry (%) 95 09/04/17 21:00 Eyes: Yes: WNL, Conjunctiva Clear, EOM Intact HENT: Yes: WNL, Atraumatic, Normocephalic Neck: Yes: WNL, Supple, Trachea Midline Cardiovascular: Yes: WNL, Regular Rate and Rhythm, S1, S2 Respiratory: Yes: Rales Gastrointestinal: Yes: WNL, Normal Bowel Sounds Genitourinary: Yes: WNL Musculoskeletal: Yes: WNL Extremities: Yes: WNL Edema: No Integumentary: Yes: WNL Neurological: Yes: WNL, Alert, Oriented ...Motor Strength: WNL Psychiatric: Yes: WNL Labs: CBC, BMP 09/03/17 23:51 09/04/17 08:10 INR, PTT INR 1.95 (0.82-1.09) H D 09/05/17 06:30 Laboratory Tests 09/03/17 09/03/17 09/03/17 23:51 23:51 23:51 WBC 8.8 RBC 3.85 L Hgb 9.8 L Hct 29.4 L MCV 76.5 L MCH 25.6 L MCHC 33.4 RDW 16.5 H Plt Count 140 MPV 11.0 Neutrophils % 85.6 H Lymphocytes % 6.5 L D Monocytes % 6.5 Eosinophils % 1.0 Basophils % 0.4 PT with INR 16.20 H INR 1.43 H D PTT (Actin FS) Sodium 132 L Potassium 5.0 Chloride 96 L Carbon Dioxide 22 Anion Gap 14 BUN 85 H D Creatinine 2.9 H Creat Clearance w eGFR 21.15 POC Glucometer Random Glucose 250 H D Calcium 8.3 L Magnesium 2.6 H Total Bilirubin 0.4 D AST 24 D ALT 35 D Alkaline Phosphatase 98 D Creatine Kinase 69 Troponin I 0.03 D B-Natriuretic Peptide Total Protein 6.8 Albumin 2.6 L Triglycerides 73 D Cholesterol 131 D Total LDL Cholesterol 70 D HDL Cholesterol 46 D U Random Total Protein Ur Random Sodium Ur Random Potassium Ur Random Chloride Ur Random Urea Nitrogn Urine Creatinine Stool Occult Blood Blood Type Antibody Screen 09/03/17 09/03/17 09/04/17 23:51 23:51 05:58 WBC RBC Hgb Hct MCV MCH MCHC RDW Plt Count MPV Neutrophils % Lymphocytes % Monocytes % Eosinophils % Basophils % PT with INR INR PTT (Actin FS) Sodium Potassium Chloride Carbon Dioxide Anion Gap BUN Creatinine Creat Clearance w eGFR POC Glucometer 246 Random Glucose Calcium Magnesium Total Bilirubin AST ALT Alkaline Phosphatase Creatine Kinase Troponin I B-Natriuretic Peptide 07624.49 H Total Protein Albumin Triglycerides Cholesterol Total LDL Cholesterol HDL Cholesterol U Random Total Protein Ur Random Sodium Ur Random Potassium Ur Random Chloride Ur Random Urea Nitrogn Urine Creatinine Stool Occult Blood Blood Type A POSITIVE Antibody Screen Negative 09/04/17 09/04/17 09/04/17 08:10 08:10 11:40 WBC RBC Hgb Hct MCV MCH MCHC RDW Plt Count MPV Neutrophils % Lymphocytes % Monocytes % Eosinophils % Basophils % PT with INR 16.80 H INR 1.49 H PTT (Actin FS) Sodium 131 L Potassium 4.5 Chloride 98 Carbon Dioxide 23 Anion Gap 10 BUN 88 H Creatinine 3.0 H Creat Clearance w eGFR POC Glucometer Random Glucose 213 H Calcium 8.0 L Magnesium Total Bilirubin AST ALT Alkaline Phosphatase Creatine Kinase Troponin I B-Natriuretic Peptide Total Protein Albumin Triglycerides Cholesterol Total LDL Cholesterol HDL Cholesterol U Random Total Protein Ur Random Sodium 35 Ur Random Potassium 36.2 Ur Random Chloride 57 Ur Random Urea Nitrogn Urine Creatinine Stool Occult Blood Blood Type Antibody Screen 09/04/17 09/04/17 09/04/17 11:40 11:40 11:41 WBC RBC Hgb Hct MCV MCH MCHC RDW Plt Count MPV Neutrophils % Lymphocytes % Monocytes % Eosinophils % Basophils % PT with INR INR PTT (Actin FS) Sodium Potassium Chloride Carbon Dioxide Anion Gap BUN Creatinine Creat Clearance w eGFR POC Glucometer 298 Random Glucose Calcium Magnesium Total Bilirubin AST ALT Alkaline Phosphatase Creatine Kinase Troponin I B-Natriuretic Peptide Total Protein Albumin Triglycerides Cholesterol Total LDL Cholesterol HDL Cholesterol U Random Total Protein 48 H Ur Random Sodium Ur Random Potassium Ur Random Chloride Ur Random Urea Nitrogn Urine Creatinine 54.6 Stool Occult Blood Blood Type Antibody Screen 09/04/17 09/04/17 09/04/17 11:43 16:30 17:04 WBC RBC Hgb Hct MCV MCH MCHC RDW Plt Count MPV Neutrophils % Lymphocytes % Monocytes % Eosinophils % Basophils % PT with INR INR PTT (Actin FS) Sodium Potassium Chloride Carbon Dioxide Anion Gap BUN Creatinine Creat Clearance w eGFR POC Glucometer 473 Random Glucose Calcium Magnesium Total Bilirubin AST ALT Alkaline Phosphatase Creatine Kinase Troponin I B-Natriuretic Peptide Total Protein Albumin Triglycerides Cholesterol Total LDL Cholesterol HDL Cholesterol U Random Total Protein Ur Random Sodium Ur Random Potassium Ur Random Chloride Ur Random Urea Nitrogn 491 Urine Creatinine Stool Occult Blood Negative Blood Type Antibody Screen 09/04/17 09/04/17 09/05/17 17:06 17:15 05:56 WBC RBC Hgb Hct MCV MCH MCHC RDW Plt Count MPV Neutrophils % Lymphocytes % Monocytes % Eosinophils % Basophils % PT with INR INR PTT (Actin FS) 69.7 H D Sodium Potassium Chloride Carbon Dioxide Anion Gap BUN Creatinine Creat Clearance w eGFR POC Glucometer 471 454 Random Glucose Calcium Magnesium Total Bilirubin AST ALT Alkaline Phosphatase Creatine Kinase Troponin I B-Natriuretic Peptide Total Protein Albumin Triglycerides Cholesterol Total LDL Cholesterol HDL Cholesterol U Random Total Protein Ur Random Sodium Ur Random Potassium Ur Random Chloride Ur Random Urea Nitrogn Urine Creatinine Stool Occult Blood Blood Type Antibody Screen 09/05/17 09/05/17 06:30 10:15 WBC RBC Hgb Hct MCV MCH MCHC RDW Plt Count MPV Neutrophils % Lymphocytes % Monocytes % Eosinophils % Basophils % PT with INR 22.00 H INR 1.95 H D PTT (Actin FS) Sodium Potassium Chloride Carbon Dioxide Anion Gap BUN Creatinine Creat Clearance w eGFR POC Glucometer 319 Random Glucose Calcium Magnesium Total Bilirubin AST ALT Alkaline Phosphatase Creatine Kinase Troponin I B-Natriuretic Peptide Total Protein Albumin Triglycerides Cholesterol Total LDL Cholesterol HDL Cholesterol U Random Total Protein Ur Random Sodium Ur Random Potassium Ur Random Chloride Ur Random Urea Nitrogn Urine Creatinine Stool Occult Blood Blood Type Antibody Screen Assessment/Plan - Problems (1) HTN (hypertension) Assessment/Plan: On carvedilol for systolic CHF, HTN, CAD, s/p FL. On hydralazine + Isordil for systolic CHF, HTN. (Ongoing renal dysfunction precludes ACEI or ARB). On furosemide for systolic CHF, HTN, though renal status will have to be followed closely, as discussed with nephrology team. Code(s): I10 - ESSENTIAL (PRIMARY) HYPERTENSION (2) Status post myocardial infarction Assessment/Plan: Recent (07/2017) FL treated at [facility] with several coronary stents. On amiodarone 200 mg daily, likely for VT or VF elin-FL (to obtain records for precise reason necessitating use of this medication). Monitor closely for side effects. Pt is on statin, diuretic, and warfarin, all of which may influence amiodarone. Increase dose of carvedilol as tolerated (FL; systolic CHF; arrhythmia). Code(s): I25.2 - OLD MYOCARDIAL INFARCTION (3) CVA (cerebral infarction) Assessment/Plan: left lacunar infarct, right encephalomalacia noted on [address] CT. Code(s): I63.9 - CEREBRAL INFARCTION, UNSPECIFIED (4) Diabetes mellitus Code(s): E11.9 - TYPE 2 DIABETES MELLITUS WITHOUT COMPLICATIONS Qualifiers: Diabetes mellitus complication status: with ophthalmic complications Diabetes mellitus complication detail: with diabetic retinopathy (5) Hx of heart artery stent Assessment/Plan: as per c. cath report; PCI asya x3 RCA, PTCA rpda Code(s): Z95.5 - PRESENCE OF CORONARY ANGIOPLASTY IMPLANT AND GRAFT (6) Non-sustained ventricular tachycardia Assessment/Plan: Obtain [facility] records; pt has been on amiodarone started during treatment for FL last month. Optimize carvedilol. Code(s): I47.2 - VENTRICULAR TACHYCARDIA (7) Renal dysfunction Assessment/Plan: Pt underwent several coronary stents as treatment for recent FL; renal shutdown apparently ensued post-procedure, resulting in several days in ICU. Pt Code(s): N28.9 - DISORDER OF KIDNEY AND URETER, UNSPECIFIED (8) Acute on chronic systolic CHF (congestive heart failure) Assessment/Plan: Pt has been symptomatic for several days; +JVD; rales and expiratory wheezes on ausculatation; congestive changes on CXR. On carvedilol, amiodarone, hydralazine+isordil. (Renal dysfunction precludes ACEI or ARB presently). F/u records from [facility] (ECHO, stents, clinical course). As discussed with inspector watch assembly, because of acute CHF, furosemide to be continued while closely monitoring renal parameters. Keep electrolytes WNL; this is especially important with pt taking amiodarone. BUN/Cr, electrolytes, daily weight, Is and Os. may need increased dose of lasix/ lasix drip or HD if diuresis non effective Code(s): I50.23 - ACUTE ON CHRONIC SYSTOLIC (CONGESTIVE) HEART FAILURE (9) Anxiety and depression Assessment/Plan: Pt denies, though cries several times during interview (this may also be due to residual effects of CVA). Code(s): F41.8 - OTHER SPECIFIED ANXIETY DISORDERS (10) LV (left ventricular) mural thrombus Assessment/Plan: On warfarin (stop IV heparin when INR approaches 2.0). will repeat echo
[2017-09-05] MEDS ORDERED: PT OWN MED DRAWER 7, Y5N ONE (10:19)
[2017-09-05] MEDS ORDERED: INSULIN (NOVOLOG) ASPART 100 UNITS/ML 10ML VIAL ONE (10:21)
[2017-09-05] MEDS: ISOSORBIDE DINITRATE 10 MG TABLET (FP) PO SCH ×4 (10:29→17:25)
[2017-09-05] MEDS: AMIODARONE HCL 200 MG TABLET (FP) PO SCH (10:32)
[2017-09-05] MEDS: PANTOPRAZOLE 40 MG TABLET (FP) PO SCH ×2 (10:32→21:06)
[2017-09-05] MEDS: CLOPIDOGREL BISULFATE 75 MG TABLET (FP) PO SCH (10:32)
[2017-09-05] MEDS: ASPIRIN COATED 81 MG TABLET.EC PO SCH (10:32)
[2017-09-05] MEDS: CARVEDILOL 6.25 MG TABLET (FP) PO SCH ×2 (10:32→21:06)
[2017-09-05] MEDS: CEFTRIAXONE 1 G/50 ML PREMIX 50 ML IVPB SCH (10:34)
--- NOTE | 2017-09-05 11:18 | EKG ---
Test Reason : Blood Pressure : / mmHG Vent. Rate : 076 BPM Atrial Rate : 076 BPM P-R Int : 212 ms QRS Dur : 102 ms QT Int : 402 ms P-R-T Axes : 030 -59 108 degrees QTc Int : 452 ms SINUS RHYTHM WITH 1ST DEGREE A-V BLOCK LEFT AXIS DEVIATION LEFT VENTRICULAR HYPERTROPHY WITH REPOLARIZATION ABNORMALITY INFERIOR INFARCT (CITED ON OR BEFORE 09-APR-2016) ANTEROLATERAL INFARCT (CITED ON OR BEFORE 02-JAN-2015) ABNORMAL ECG WHEN COMPARED WITH ECG OF 03-SEP-2017 23:27, NO SIGNIFICANT CHANGE WAS FOUND Confirmed by STEPHEN DEL RIO MD ([id number]) on 09/05/2017 11:17:34 AM Referred By: Confirmed By:STEPHEN DEL RIO MD
[2017-09-05 11:51] LABS: ANION GAP 12 (8-16); BLOOD UREA NITROGEN 102 mg/dL (7-18); CALCIUM 8.2 mg/dL (8.5-10.1); CHLORIDE 93 mmol/L (98-107); CO2 20 mmol/L (21-32); CREATININE 3.6 mg/dL (0.7-1.3); POTASSIUM 5.8 mmol/L (3.5-5.1)
[2017-09-05 11:54] LABS: GLUCOSE,RANDOM 444 mg/dL (74-106); SODIUM 125 mmol/L (136-145)
[2017-09-05] MEDS ORDERED: SODIUM POLYSTYRENE SULFONATE 15 GM/60 ML BOTTLE PO ONE ×2 (11:58→14:45)
[2017-09-05] MEDS ORDERED: FUROSEMIDE 100 MG/10 ML INJECTABLE VIAL IVPB ONE (14:43)
[2017-09-05] MEDS ORDERED: methylPREDNISolone NA SUCC 40 MG/1 ML VIAL IVPB ONE (15:30)
--- NOTE | 2017-09-05 16:28 | PN ---
Progress Note (short form) - Note Progress Note: Renal follow up for THEE/Fluid overload Pt seen and examined at the bedside reports worsening SOB depite diuretics no CP, Fever, chills + Cough making urine Vital Signs Temperature 97.2 F L 09/05/17 15:17 Pulse Rate 67 09/05/17 15:17 Respiratory Rate 20 09/05/17 15:17 Blood Pressure 137/74 09/05/17 15:17 O2 Sat by Pulse Oximetry (%) 95 09/05/17 10:00 Intake & Output 09/02/17 09/03/17 09/04/17 09/05/17 23:59 23:59 23:59 23:59 Intake Total 1260 340 Output Total 1200 700 Balance 60 -360 Weight 75.75 kg 73.936 kg 75.024 kg NAD awake and alert RRR, NO M/R + rales soft NT/ND NO LE edema CBC, BMP 09/03/17 23:51 09/05/17 11:00 Current Medications Albuterol/Ipratropium (Duoneb -) 1 amp NEB RQID [facility] Last Admin: 09/05/17 13:42 Dose: 1 amp Amiodarone HCl (Cordarone -) 200 mg PO DAILY [facility] Last Admin: 09/05/17 10:32 Dose: 200 mg Aspirin (Ecotrin -) 81 mg PO DAILY [facility] Last Admin: 09/05/17 10:32 Dose: 81 mg Carvedilol (Coreg -) 6.25 mg PO BID [facility] Last Admin: 09/05/17 10:32 Dose: 6.25 mg Clopidogrel Bisulfate (Plavix -) 75 mg PO DAILY [facility] Last Admin: 09/05/17 10:32 Dose: 75 mg Hydralazine HCl (Apresoline -) 10 mg PO TID [facility] Last Admin: 09/05/17 14:39 Dose: 10 mg CEFTRIAXONE 1 G/50 ML PREMIX (Ceftriaxone 1 Gm-D5w Bag) 50 mls @ 100 mls/hr IVPB DAILY [facility] Last Admin: 09/05/17 10:34 Dose: 100 mls/hr Furosemide 100 mg/ Sodium (Chloride) 50 mls @ 2.5 mls/hr IVPB TITR [facility]; 5 MG/HR PRN Reason: Protocol Insulin Aspart (Novolog Vial Sliding Scale -) 1 vial SQ TIDAC [facility] PRN Reason: Protocol Last Admin: 09/05/17 12:09 Dose: 10 units Insulin Detemir (Levemir Vial) 35 units SQ HS [facility] Last Admin: 09/04/17 21:38 Dose: 35 units Isosorbide Dinitrate (Isordil -) 10 mg PO TIDISORDIL [facility] Last Admin: 09/05/17 14:36 Dose: 10 mg Pantoprazole Sodium (Protonix -) 40 mg PO BID [facility] Last Admin: 09/05/17 10:32 Dose: 40 mg Rosuvastatin Calcium (Crestor -) 10 mg PO HS [facility] Last Admin: 09/04/17 21:38 Dose: 10 mg Tamsulosin HCl (Flomax -) 0.4 mg PO [facility] Last Admin: 09/04/17 21:38 Dose: 0.4 mg Warfarin Sodium (Coumadin -) 2 mg PO ONCE ONE Stop: 09/05/17 18:01 ASSESSMENT AND PLAN: 77 year old gentleman with PMhx of CAD s/p recent [place] and cardiac cath, Hypertension, HLD, IDDM, CHF, BPH who presented with SOB and admitted for CHF exacerbation with Cr of 3 #Acute Renal failure secondary to SOSA with volume overload and Hyperkalemai Renal function worsening today, however pt still with significant volume overload CXR concerning for air bronchograms however CT done 2 weeks ago reviewed with the (consistent with HF) will increase Lasix to 100mg IVPB x 1 this afternoon and start Lasix 5mg per hour following trend weight, renal function and electrolytes dose all meds for CrCl less then 15 no acute indication for [facility] at this time will give Kayexlate x 1 for hyperkalemia Repeat BMP this evening Florencio Del Cid DO
[2017-09-05] MEDS: FUROSEMIDE INJECTION 100 MG in SODIUM CHLORIDE 40 ML IVPB SCH (19:02)
[2017-09-05 19:16] LABS: ANION GAP 14 (8-16); BLOOD UREA NITROGEN 101 mg/dL (7-18); CALCIUM 8.8 mg/dL (8.5-10.1); CHLORIDE 95 mmol/L (98-107); CO2 24 mmol/L (21-32); CREATININE 3.3 mg/dL (0.7-1.3); GLUCOSE,RANDOM 101 mg/dL (74-106); POTASSIUM 4.9 mmol/L (3.5-5.1); SODIUM 133 mmol/L (136-145)
[2017-09-05] MEDS: TAMSULOSIN HCL 0.4 MG CAP.ER.24H (FP) PO SCH (21:06)
[2017-09-05] MEDS: INSULIN DETEMIR 100 UNITS/ML MDV SQ SCH (21:06)
[2017-09-05] MEDS: ROSUVASTATIN CA 10 MG TABLET (FP) PO SCH (21:06)
--- NOTE | 2017-09-05 22:45 | PN ---
Progress Note, Physician History of Present Illness: Continues to have SOB, denies any chest pain. Could not sleep last night due to SOB.Denies any shaking chills - Current Medication List Current Medications: Active Medications Albuterol/Ipratropium (Duoneb -) 1 amp NEB RQID [facility] Last Admin: 09/05/17 20:40 Dose: Not Given Amiodarone HCl (Cordarone -) 200 mg PO DAILY [facility] Last Admin: 09/05/17 10:32 Dose: 200 mg Aspirin (Ecotrin -) 81 mg PO DAILY [facility] Last Admin: 09/05/17 10:32 Dose: 81 mg Carvedilol (Coreg -) 6.25 mg PO BID [facility] Last Admin: 09/05/17 21:06 Dose: 6.25 mg Clopidogrel Bisulfate (Plavix -) 75 mg PO DAILY [facility] Last Admin: 09/05/17 10:32 Dose: 75 mg Hydralazine HCl (Apresoline -) 10 mg PO TID [facility] Last Admin: 09/05/17 21:06 Dose: 10 mg CEFTRIAXONE 1 G/50 ML PREMIX (Ceftriaxone 1 Gm-D5w Bag) 50 mls @ 100 mls/hr IVPB DAILY [facility] Last Admin: 09/05/17 10:34 Dose: 100 mls/hr Furosemide 100 mg/ Sodium (Chloride) 50 mls @ 2.5 mls/hr IVPB TITR [facility]; 5 MG/HR PRN Reason: Protocol Last Admin: 09/05/17 19:02 Dose: 5 mg/hr, 2.5 mls/hr Insulin Aspart (Novolog Vial Sliding Scale -) 1 vial SQ TIDAC [facility] PRN Reason: Protocol Last Admin: 09/05/17 17:26 Dose: Not Given Insulin Detemir (Levemir Vial) 35 units SQ [facility] Last Admin: 09/05/17 21:06 Dose: 35 units Isosorbide Dinitrate (Isordil -) 10 mg PO TIDISORDIL [facility] Last Admin: 09/05/17 17:25 Dose: 10 mg Pantoprazole Sodium (Protonix -) 40 mg PO BID [facility] Last Admin: 09/05/17 21:06 Dose: 40 mg Rosuvastatin Calcium (Crestor -) 10 mg PO [facility] Last Admin: 09/05/17 21:06 Dose: 10 mg Tamsulosin HCl (Flomax -) 0.4 mg PO [facility] Last Admin: 09/05/17 21:06 Dose: 0.4 mg - Objective Vital Signs: Vital Signs Temperature 97.2 F L 09/05/17 19:38 Pulse Rate 67 09/05/17 19:38 Respiratory Rate 20 09/05/17 19:40 Blood Pressure 137/74 09/05/17 19:38 O2 Sat by Pulse Oximetry (%) 95 09/05/17 19:40 Constitutional: Yes: Anxious, Mild Distress Eyes: Yes: Conjunctiva Clear, EOM Intact HENT: Yes: WNL Neck: Yes: Supple Cardiovascular: Yes: Regular Rate and Rhythm, S1, S2 Respiratory: Yes: Regular, On Nasal O2, Rales Gastrointestinal: Yes: Normal Bowel Sounds, Soft Genitourinary: Yes: WNL Musculoskeletal: Yes: WNL Extremities: Yes: WNL Integumentary: Yes: WNL Neurological: Yes: Alert, Oriented ...Motor Strength: WNL Psychiatric: Yes: Alert, Oriented Labs: CBC, BMP 09/03/17 23:51 09/05/17 18:00 INR, PTT INR 1.95 (0.82-1.09) H D 09/05/17 06:30 - ....Imaging Chest X-ray: Report Reviewed, Image Reviewed Problem List - Problems (1) Chronic renal disease Code(s): N18.9 - CHRONIC KIDNEY DISEASE, UNSPECIFIED (2) Anemia Code(s): D64.9 - ANEMIA, UNSPECIFIED (3) Acute on chronic systolic CHF (congestive heart failure) Code(s): I50.23 - ACUTE ON CHRONIC SYSTOLIC (CONGESTIVE) HEART FAILURE (4) HTN (hypertension) Code(s): I10 - ESSENTIAL (PRIMARY) HYPERTENSION (5) Shortness of breath Code(s): R06.02 - SHORTNESS OF BREATH (6) Acute thrombus of left ventricle with acute ND Code(s): I21.29 - STEMI INVOLVING OTH SITES (7) BPH (benign prostatic hypertrophy) Code(s): N40.0 - BENIGN PROSTATIC HYPERPLASIA WITHOUT LOWER URINRY TRACT SYMP (8) Diabetes 1.5, managed as type 1 Code(s): E13.9 - OTHER SPECIFIED DIABETES MELLITUS WITHOUT COMPLICATIONS (9) Hx of heart artery stent Code(s): Z95.5 - PRESENCE OF CORONARY ANGIOPLASTY IMPLANT AND GRAFT
[2017-09-06] MEDS: hydrALAZINE HCL 10 MG TABLET PO SCH ×3 (06:02→21:33)
[2017-09-06] MEDS: INSULIN SLIDING SCALE (NOVOLOG) 1 VIAL SQ SCH ×4 (06:02→17:30)
[2017-09-06] MEDS: ALBUTEROL SO4 2.5/IPRATROPIUM 0.5 INH SOL 3 ML VIAL.NEB. NEB SCH ×4 (07:15→20:00)
[2017-09-06 07:42] LABS: ANION GAP 13 (8-16); BLOOD UREA NITROGEN 103 mg/dL (7-18); CALCIUM 8.2 mg/dL (8.5-10.1); CHLORIDE 93 mmol/L (98-107); CO2 26 mmol/L (21-32); CREATININE 3.6 mg/dL (0.7-1.3); MAGNESIUM 2.7 mg/dL (1.8-2.4); PHOSPHOROUS 6.3 mg/dL (2.5-4.9); POTASSIUM 5.1 mmol/L (3.5-5.1); SODIUM 132 mmol/L (136-145)
[2017-09-06 07:51] LABS: INR 1.62 (0.82-1.09); PROTHROMBIN TIME (PATIENT) 18.3 SEC (9.98-11.88)
[2017-09-06 07:57] LABS: BASO % 0.1 % (0-2.0); HEMATOCRIT 27.6 % (35.4-49); HEMOGLOBIN 9.2 GM/dL (11.7-16.9); LYMPH % 4.6 % (8-40); MCH 25.6 pg (25.7-33.7); MCHC 33.2 g/dl (32.0-35.9); MEAN CELL VOLUME 77.2 fl (80-96); MEAN PLT VOLUME 10.6 fl (7.5-11.1); MONO % 3.1 % (3.8-10.2); NEUT % 92.2 % (42.8-82.8); PLATELET COUNT 147 K/MM3 (134-434); RBC 3.58 M/mm3 (4.00-5.60); RDW 16.7 % (11.9-15.9); WHITE BLOOD COUNT 5.9 K/mm3 (4.0-10.0)
[2017-09-06] MEDS: ISOSORBIDE DINITRATE 10 MG TABLET (FP) PO SCH ×3 (08:18→17:31)
[2017-09-06 08:21] LABS: GLUCOSE,RANDOM 427 mg/dL (74-106)
--- NOTE | 2017-09-06 09:42 | PN ---
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 Had [address] [facility] renal "shutdown" occurred, per , and pt had a prolonged course before discharge home. Pt has been compliant with his medications, which include Aspirin, Plavix , Coumadin, amiodarone, carvedilol, hydralazine, isordil, rosuvastatin, furosemide. Today pt has had worsening SOB. H/o CHF pt given total of Lasix 80mg by family and pt has been urinating frequently. Pt denies CP at this time. - Current Medication List Current Medications: Active Medications Albuterol/Ipratropium (Duoneb -) 1 amp NEB RQID [facility] Last Admin: 09/06/17 07:15 Dose: 1 amp Amiodarone HCl (Cordarone -) 200 mg PO DAILY [facility] Last Admin: 09/05/17 10:32 Dose: 200 mg Aspirin (Ecotrin -) 81 mg PO DAILY [facility] Last Admin: 09/05/17 10:32 Dose: 81 mg Carvedilol (Coreg -) 6.25 mg PO BID [facility] Last Admin: 09/05/17 21:06 Dose: 6.25 mg Clopidogrel Bisulfate (Plavix -) 75 mg PO DAILY [facility] Last Admin: 09/05/17 10:32 Dose: 75 mg Hydralazine HCl (Apresoline -) 10 mg PO TID [facility] Last Admin: 09/06/17 06:02 Dose: 10 mg CEFTRIAXONE 1 G/50 ML PREMIX (Ceftriaxone 1 Gm-D5w Bag) 50 mls @ 100 mls/hr IVPB DAILY [facility] Last Admin: 09/05/17 10:34 Dose: 100 mls/hr Furosemide 100 mg/ Sodium (Chloride) 50 mls @ 2.5 mls/hr IVPB TITR [facility]; 5 MG/HR PRN Reason: Protocol Last Admin: 09/05/17 19:02 Dose: 5 mg/hr, 2.5 mls/hr Insulin Aspart (Novolog Vial Sliding Scale -) 1 vial SQ TIDAC [facility] PRN Reason: Protocol Last Admin: 09/06/17 06:02 Dose: 12 units Insulin Detemir (Levemir Vial) 35 units SQ HS [facility] Last Admin: 09/05/17 21:06 Dose: 35 units Isosorbide Dinitrate (Isordil -) 10 mg PO TIDISORDIL [facility] Last Admin: 09/06/17 08:18 Dose: 10 mg Pantoprazole Sodium (Protonix -) 40 mg PO BID [facility] Last Admin: 09/05/17 21:06 Dose: 40 mg Rosuvastatin Calcium (Crestor -) 10 mg PO [facility] Last Admin: 09/05/17 21:06 Dose: 10 mg Tamsulosin HCl (Flomax -) 0.4 mg PO [facility] Last Admin: 09/05/17 21:06 Dose: 0.4 mg - Objective Vital Signs: Vital Signs Temperature 98.8 F 09/06/17 05:57 Pulse Rate 83 09/06/17 05:57 Respiratory Rate 20 09/06/17 05:57 Blood Pressure 126/66 09/06/17 05:57 O2 Sat by Pulse Oximetry (%) 95 09/05/17 19:40 Eyes: Yes: WNL, Conjunctiva Clear, EOM Intact HENT: Yes: WNL, Atraumatic, Normocephalic Neck: Yes: WNL, Supple, Trachea Midline Cardiovascular: Yes: WNL, Regular Rate and Rhythm Respiratory: Yes: WNL, Regular, CTA Bilaterally Gastrointestinal: Yes: WNL, Normal Bowel Sounds Genitourinary: Yes: WNL Musculoskeletal: Yes: WNL Extremities: Yes: WNL Edema: No Integumentary: Yes: WNL Neurological: Yes: WNL, Alert, Oriented ...Motor Strength: WNL Psychiatric: Yes: WNL Labs: CBC, BMP 09/06/17 06:50 09/06/17 06:50 INR, PTT INR 1.62 (0.82-1.09) H 09/06/17 06:50 Assessment/Plan - Problems (1) HTN (hypertension) Assessment/Plan: On carvedilol for systolic CHF, HTN, CAD, s/p NV. On hydralazine + Isordil for systolic CHF, HTN. (Ongoing renal dysfunction precludes ACEI or ARB). On furosemide for systolic CHF, HTN, though renal status will have to be followed closely, as discussed with nephrology team. Code(s): I10 - ESSENTIAL (PRIMARY) HYPERTENSION (2) Status post myocardial infarction Assessment/Plan: Recent (07/2017) NV treated at [facility] with several coronary stents. On amiodarone 200 mg daily, likely for VT or VF elin-NV (to obtain records for precise reason necessitating use of this medication). Monitor closely for side effects. Pt is on statin, diuretic, and warfarin, all of which may influence amiodarone. Increase dose of carvedilol as tolerated (NV; systolic CHF; arrhythmia). Code(s): I25.2 - OLD MYOCARDIAL INFARCTION (3) CVA (cerebral infarction) Assessment/Plan: left lacunar infarct, right encephalomalacia noted on [address] CT. Code(s): I63.9 - CEREBRAL INFARCTION, UNSPECIFIED (4) Diabetes mellitus Code(s): E11.9 - TYPE 2 DIABETES MELLITUS WITHOUT COMPLICATIONS Qualifiers: Diabetes mellitus complication status: with ophthalmic complications Diabetes mellitus complication detail: with diabetic retinopathy (5) Hx of heart artery stent Assessment/Plan: as per c. cath report; PCI asya x3 RCA, PTCA rpda Code(s): Z95.5 - PRESENCE OF CORONARY ANGIOPLASTY IMPLANT AND GRAFT (6) Non-sustained ventricular tachycardia Assessment/Plan: Obtain [facility] records; pt has been on amiodarone started during treatment for NV last month. Optimize carvedilol. Code(s): I47.2 - VENTRICULAR TACHYCARDIA (7) Renal dysfunction Assessment/Plan: Pt underwent several coronary stents as treatment for recent NV; renal shutdown apparently ensued post-procedure, resulting in several days in ICU. Pt Code(s): N28.9 - DISORDER OF KIDNEY AND URETER, UNSPECIFIED (8) Acute on chronic systolic CHF (congestive heart failure) Assessment/Plan: Pt has been symptomatic for several days; +JVD; rales and expiratory wheezes on ausculatation; congestive changes on CXR. On carvedilol, amiodarone, hydralazine+isordil. (Renal dysfunction precludes ACEI or ARB presently). [facility], clinical course). As discussed with teaching specialists, because of acute CHF, furosemide to be continued while closely monitoring renal parameters. Keep electrolytes WNL; this is especially important with pt taking amiodarone. BUN/Cr, electrolytes, daily weight, Is and Os. may need increased dose of lasix/ lasix drip or HD if diuresis non effective Code(s): I50.23 - ACUTE ON CHRONIC SYSTOLIC (CONGESTIVE) HEART FAILURE (9) Anxiety and depression Assessment/Plan: Pt denies, though cries several times during interview (this may also be due to residual effects of CVA). Code(s): F41.8 - OTHER SPECIFIED ANXIETY DISORDERS (10) LV (left ventricular) mural thrombus Assessment/Plan: On warfarin (stop IV heparin when INR approaches 2.0). will repeat echo feels better today , rales resolved, worsening BUN/Cr. cont present rx renalk f/u echo yeaterday normal ef
[2017-09-06] MEDS: CARVEDILOL 6.25 MG TABLET (FP) PO SCH ×2 (10:07→21:32)
[2017-09-06] MEDS: FOLIC ACID 1 MG TABLET (FP) PO SCH (10:07)
[2017-09-06] MEDS: AMIODARONE HCL 200 MG TABLET (FP) PO SCH (10:07)
[2017-09-06] MEDS: ASPIRIN COATED 81 MG TABLET.EC PO SCH (10:07)
[2017-09-06] MEDS: CLOPIDOGREL BISULFATE 75 MG TABLET (FP) PO SCH (10:07)
[2017-09-06] MEDS: CEFTRIAXONE 1 G/50 ML PREMIX 50 ML IVPB SCH (10:08)
[2017-09-06] MEDS: PANTOPRAZOLE 40 MG TABLET (FP) PO SCH ×2 (10:08→21:32)
--- NOTE | 2017-09-06 12:18 | PN ---
Progress Note (short form) - Note Progress Note: Renal follow up for THEE/Fluid overload Pt seen and examined at the bedside awake and alert reports that SOB is improved from yesterday no fever, chills no N/V making urine Vital Signs Temperature 98.8 F 09/06/17 05:57 Pulse Rate 83 09/06/17 05:57 Respiratory Rate 20 09/06/17 10:00 Blood Pressure 126/66 09/06/17 05:57 O2 Sat by Pulse Oximetry (%) 97 09/06/17 10:00 Intake & Output 09/03/17 09/04/17 09/05/17 09/06/17 23:59 23:59 23:59 23:59 Intake Total 1260 1340 240 Output Total 1200 1650 600 Balance 60 -310 -360 Weight 75.75 kg 73.936 kg 75.024 kg 74.389 kg NAD awake and alert RRR, NO M/R + rales soft NT/ND NO LE edema CBC, BMP 09/06/17 06:50 09/06/17 06:50 Current Medications Albuterol/Ipratropium (Duoneb -) 1 amp NEB RQID [facility] Last Admin: 09/06/17 07:15 Dose: 1 amp Amiodarone HCl (Cordarone -) 200 mg PO DAILY [facility] Last Admin: 09/06/17 10:07 Dose: 200 mg Aspirin (Ecotrin -) 81 mg PO DAILY [facility] Last Admin: 09/06/17 10:07 Dose: 81 mg Calcium Acetate (Phoslo -) 667 mg PO TIDCM [facility] Carvedilol (Coreg -) 6.25 mg PO BID [facility] Last Admin: 09/06/17 10:07 Dose: 6.25 mg Clopidogrel Bisulfate (Plavix -) 75 mg PO DAILY [facility] Last Admin: 09/06/17 10:07 Dose: 75 mg Ferrous Gluconate (Fergon -) 324 mg PO DAILY [facility] Folic Acid (Folic Acid -) 1 mg PO DAILY [facility] Last Admin: 09/06/17 10:07 Dose: 1 mg Hydralazine HCl (Apresoline -) 10 mg PO TID [facility] Last Admin: 09/06/17 06:02 Dose: 10 mg CEFTRIAXONE 1 G/50 ML PREMIX (Ceftriaxone 1 Gm-D5w Bag) 50 mls @ 100 mls/hr IVPB DAILY [facility] Last Admin: 09/06/17 10:08 Dose: 100 mls/hr Furosemide 100 mg/ Sodium (Chloride) 50 mls @ 2.5 mls/hr IVPB TITR [facility]; 5 MG/HR PRN Reason: Protocol Last Admin: 09/05/17 19:02 Dose: 5 mg/hr, 2.5 mls/hr Insulin Aspart (Novolog Vial Sliding Scale -) 1 vial SQ TIDAC [facility] PRN Reason: Protocol Last Admin: 09/06/17 11:55 Dose: 8 units Insulin Detemir (Levemir Vial) 35 units SQ HS [facility] Last Admin: 09/05/17 21:06 Dose: 35 units Isosorbide Dinitrate (Isordil -) 10 mg PO TIDISORDIL [facility] Last Admin: 09/06/17 08:18 Dose: 10 mg Pantoprazole Sodium (Protonix -) 40 mg PO BID [facility] Last Admin: 09/06/17 10:08 Dose: 40 mg Rosuvastatin Calcium (Crestor -) 10 mg PO HS [facility] Last Admin: 09/05/17 21:06 Dose: 10 mg Tamsulosin HCl (Flomax -) 0.4 mg PO HS [facility] Last Admin: 09/05/17 21:06 Dose: 0.4 mg Warfarin Sodium (Coumadin -) 4 mg PO ONCE ONE Stop: 09/06/17 18:01 ASSESSMENT AND PLAN: 77 year old gentleman with PMhx of CAD s/p recent [place] and cardiac cath, Hypertension, HLD, IDDM, CHF, BPH who presented with SOB and admitted for CHF exacerbation with Cr of 3 #Acute Renal failure secondary to SOSA with volume overload and Hyperkalemia Renal function stable in the last 24 hours pt is non-oliguric and clinical status improved continue Lasix gtt at 5mg per hour with goal of evolemia despite high bun no overt signs of uremia to [facility] health system dialysis repeat BMP later this evening avoid CHENTE/ARB/NSAIDs dose all meds for CrCl less then 15 Diet changed to renal Florencio Del Cid DO
[2017-09-06] MEDS: FUROSEMIDE INJECTION 100 MG in SODIUM CHLORIDE 40 ML IVPB SCH (12:30)
[2017-09-06] MEDS: FERROUS GLUCONATE 324 MG TAB (FP) PO SCH (13:26)
[2017-09-06] MEDS: CALCIUM ACETATE 667 MG CAPSULE (FP) PO SCH ×2 (14:39→17:31)
[2017-09-06] MEDS ORDERED: WARFARIN NA 2 MG TABLET (UD) PO ONE (18:00)
[2017-09-06 19:13] LABS: ANION GAP 10 (8-16); BLOOD UREA NITROGEN 103 mg/dL (7-18); CALCIUM 8.1 mg/dL (8.5-10.1); CHLORIDE 94 mmol/L (98-107); CO2 27 mmol/L (21-32); CREATININE 3.3 mg/dL (0.7-1.3); GLUCOSE,RANDOM 182 mg/dL (74-106); POTASSIUM 5.1 mmol/L (3.5-5.1); SODIUM 131 mmol/L (136-145)
[2017-09-06] MEDS: INSULIN DETEMIR 100 UNITS/ML MDV SQ SCH (21:32)
[2017-09-06] MEDS: ROSUVASTATIN CA 10 MG TABLET (FP) PO SCH (21:33)
[2017-09-06] MEDS: TAMSULOSIN HCL 0.4 MG CAP.ER.24H (FP) PO SCH (21:33)
[2017-09-07] MEDS: hydrALAZINE HCL 10 MG TABLET PO SCH ×3 (06:37→21:47)
[2017-09-07] MEDS: INSULIN SLIDING SCALE (NOVOLOG) 1 VIAL SQ SCH ×3 (06:46→16:37)
[2017-09-07] MEDS: ALBUTEROL SO4 2.5/IPRATROPIUM 0.5 INH SOL 3 ML VIAL.NEB. NEB SCH (07:30)
[2017-09-07 08:00] LABS: ANION GAP 11 (8-16); CALCIUM 8.4 mg/dL (8.5-10.1); CHLORIDE 93 mmol/L (98-107); CO2 29 mmol/L (21-32); CREATININE 3.2 mg/dL (0.7-1.3); GLUCOSE,RANDOM 215 mg/dL (74-106); MAGNESIUM 2.3 mg/dL (1.8-2.4); PHOSPHOROUS 5.1 mg/dL (2.5-4.9); POTASSIUM 4.7 mmol/L (3.5-5.1); SODIUM 133 mmol/L (136-145)
[2017-09-07 08:03] LABS: BLOOD UREA NITROGEN 104 mg/dL (7-18)
[2017-09-07] MEDS: CALCIUM ACETATE 667 MG CAPSULE (FP) PO SCH ×3 (08:40→17:55)
[2017-09-07] MEDS: ISOSORBIDE DINITRATE 10 MG TABLET (FP) PO SCH ×3 (08:40→17:54)
[2017-09-07] MEDS ORDERED: PT OWN MED DRAWER 7, Y5N ONE ×2 (09:02→16:54)
[2017-09-07 09:06] LABS: BASO % 0.4 % (0-2.0); EOS % 2.5 % (0-4.5); HEMATOCRIT 28.2 % (35.4-49); HEMOGLOBIN 9.3 GM/dL (11.7-16.9); LYMPH % 9.4 % (8-40); MCH 25.3 pg (25.7-33.7); MCHC 32.9 g/dl (32.0-35.9); MEAN CELL VOLUME 76.7 fl (80-96); MEAN PLT VOLUME 10.2 fl (7.5-11.1); MONO % 9.3 % (3.8-10.2); NEUT % 78.4 % (42.8-82.8); PLATELET COUNT 148 K/MM3 (134-434); RBC 3.68 M/mm3 (4.00-5.60); RDW 16.3 % (11.9-15.9); WHITE BLOOD COUNT 7.3 K/mm3 (4.0-10.0)
--- NOTE | 2017-09-07 09:16 | PN ---
Progress Note, Physician History of Present Illness: 78 yr old man (linnea Kingsley; of MD on staff at [facility]) presents with h/o AMI 07/2017. Had [address] [facility] renal "shutdown" occurred, per , and pt had a prolonged course before discharge home. Pt has been compliant with his medications, which include Aspirin, Plavix , Coumadin, amiodarone, carvedilol, hydralazine, isordil, rosuvastatin, furosemide. Today pt has had worsening SOB. H/o CHF pt given total of Lasix 80mg by family and pt has been urinating frequently. Pt denies CP at this time. - Current Medication List Current Medications: Active Medications Albuterol/Ipratropium (Duoneb -) 1 amp NEB RQID [facility] Last Admin: 09/06/17 20:00 Dose: 1 amp Amiodarone HCl (Cordarone -) 200 mg PO DAILY [facility] Last Admin: 09/06/17 10:07 Dose: 200 mg Aspirin (Ecotrin -) 81 mg PO DAILY [facility] Last Admin: 09/06/17 10:07 Dose: 81 mg Calcium Acetate (Phoslo -) 667 mg PO TIDCM [facility] Last Admin: 09/07/17 08:40 Dose: 667 mg Carvedilol (Coreg -) 6.25 mg PO BID [facility] Last Admin: 09/06/17 21:32 Dose: 6.25 mg Clopidogrel Bisulfate (Plavix -) 75 mg PO DAILY [facility] Last Admin: 09/06/17 10:07 Dose: 75 mg Ferrous Gluconate (Fergon -) 324 mg PO DAILY [facility] Last Admin: 09/06/17 13:26 Dose: Not Given Folic Acid (Folic Acid -) 1 mg PO DAILY [facility] Last Admin: 09/06/17 10:07 Dose: 1 mg Hydralazine HCl (Apresoline -) 10 mg PO TID [facility] Last Admin: 09/07/17 06:37 Dose: 10 mg CEFTRIAXONE 1 G/50 ML PREMIX (Ceftriaxone 1 Gm-D5w Bag) 50 mls @ 100 mls/hr IVPB DAILY [facility] Last Admin: 09/06/17 10:08 Dose: 100 mls/hr Furosemide 100 mg/ Sodium (Chloride) 50 mls @ 2.5 mls/hr IVPB TITR [facility]; 5 MG/HR PRN Reason: Protocol Last Admin: 09/06/17 12:30 Dose: 5 mg/hr, 2.5 mls/hr Insulin Aspart (Novolog Vial Sliding Scale -) 1 vial SQ TIDAC [facility] PRN Reason: Protocol Last Admin: 09/07/17 06:46 Dose: 4 units Insulin Detemir (Levemir Vial) 35 units SQ HS [facility] Last Admin: 09/06/17 21:32 Dose: 35 units Isosorbide Dinitrate (Isordil -) 10 mg PO TIDISORDIL [facility] Last Admin: 09/07/17 08:40 Dose: 10 mg Pantoprazole Sodium (Protonix -) 40 mg PO BID [facility] Last Admin: 09/06/17 21:32 Dose: 40 mg Rosuvastatin Calcium (Crestor -) 10 mg PO HS [facility] Last Admin: 09/06/17 21:33 Dose: 10 mg Tamsulosin HCl (Flomax -) 0.4 mg PO HS [facility] Last Admin: 09/06/17 21:33 Dose: 0.4 mg - Objective Vital Signs: Vital Signs Temperature 97.6 F 09/07/17 06:00 Pulse Rate 73 09/07/17 06:00 Respiratory Rate 20 09/07/17 06:00 Blood Pressure 134/86 09/07/17 06:00 O2 Sat by Pulse Oximetry (%) 97 09/06/17 21:00 Eyes: Yes: WNL, Conjunctiva Clear, EOM Intact HENT: Yes: WNL, Atraumatic, Normocephalic Neck: Yes: WNL, Supple, Trachea Midline Cardiovascular: Yes: WNL, Regular Rate and Rhythm Respiratory: Yes: WNL, Regular, CTA Bilaterally Gastrointestinal: Yes: WNL, Normal Bowel Sounds Genitourinary: Yes: WNL Musculoskeletal: Yes: WNL Extremities: Yes: WNL Edema: Yes Edema: LLE: 1+, RLE: Trace Integumentary: Yes: WNL Neurological: Yes: WNL, Alert, Oriented ...Motor Strength: WNL Psychiatric: Yes: WNL Labs: CBC, BMP 09/07/17 06:30 09/07/17 06:30 INR, PTT INR 1.62 (0.82-1.09) H 09/06/17 06:50 Assessment/Plan - Problems (1) HTN (hypertension) Assessment/Plan: On carvedilol for systolic CHF, HTN, CAD, s/p ID. On hydralazine + Isordil for systolic CHF, HTN. (Ongoing renal dysfunction precludes ACEI or ARB). On furosemide for systolic CHF, HTN, though renal status will have to be followed closely, as discussed with nephrology team. Code(s): I10 - ESSENTIAL (PRIMARY) HYPERTENSION (2) Status post myocardial infarction Assessment/Plan: Recent (07/2017) ID treated at [facility] with several coronary stents. On amiodarone 200 mg daily, likely for VT or VF elin-ID (to obtain records for precise reason necessitating use of this medication). Monitor closely for side effects. Pt is on statin, diuretic, and warfarin, all of which may influence amiodarone. Increase dose of carvedilol as tolerated (ID; systolic CHF; arrhythmia). Code(s): I25.2 - OLD MYOCARDIAL INFARCTION (3) CVA (cerebral infarction) Assessment/Plan: left lacunar infarct, right encephalomalacia noted on [address] CT[address] Code(s): I63.9 - CEREBRAL INFARCTION, UNSPECIFIED (4) Diabetes mellitus Code(s): E11.9 - TYPE 2 DIABETES MELLITUS WITHOUT COMPLICATIONS Qualifiers: Diabetes mellitus complication status: with ophthalmic complications Diabetes mellitus complication detail: with diabetic retinopathy (5) Hx of heart artery stent Assessment/Plan: as per c. cath report; PCI asya x3 RCA, PTCA rpda Code(s): Z95.5 - PRESENCE OF CORONARY ANGIOPLASTY IMPLANT AND GRAFT (6) Non-sustained ventricular tachycardia Assessment/Plan: Obtain [facility] records; pt has been on amiodarone started during treatment for ID last month. Optimize carvedilol. Code(s): I47.2 - VENTRICULAR TACHYCARDIA (7) Renal dysfunction Assessment/Plan: Pt underwent several coronary stents as treatment for recent ID; renal shutdown apparently ensued post-procedure, resulting in several days in ICU. Pt Code(s): N28.9 - DISORDER OF KIDNEY AND URETER, UNSPECIFIED (8) Acute on chronic systolic CHF (congestive heart failure) Assessment/Plan: Pt has been symptomatic for several days; +JVD; rales and expiratory wheezes on ausculatation; congestive changes on CXR. On carvedilol, amiodarone, hydralazine+isordil. (Renal dysfunction precludes ACEI or ARB presently). F/u records from [facility] (ECHO, stents, clinical course). As discussed with assessment nurse, because of acute CHF, furosemide to be continued while closely monitoring renal parameters. Keep electrolytes WNL; this is especially important with pt taking amiodarone. BUN/Cr, electrolytes, daily weight, Is and Os. may need increased dose of lasix/ lasix drip or HD if diuresis non effective Code(s): I50.23 - ACUTE ON CHRONIC SYSTOLIC (CONGESTIVE) HEART FAILURE (9) Anxiety and depression Assessment/Plan: Pt denies, though cries several times during interview (this may also be due to residual effects of CVA). Code(s): F41.8 - OTHER SPECIFIED ANXIETY DISORDERS (10) LV (left ventricular) mural thrombus Assessment/Plan: On warfarin (stop IV heparin when INR approaches 2.0). will repeat echo feels better today , rales resolved, worsening BUN/Cr. cont present rx renalk f/u echo yeaterday normal ef brief episode of AF with rvr in sr now cont ac (LV thrombus) d/c albuterol - sob due to chf and b agonist may trigger af
[2017-09-07] MEDS: CEFTRIAXONE 1 G/50 ML PREMIX 50 ML IVPB SCH (09:32)
[2017-09-07] MEDS: FERROUS GLUCONATE 324 MG TAB (FP) PO SCH (09:32)
[2017-09-07 09:33] LABS: INR 1.66 (0.82-1.09); PROTHROMBIN TIME (PATIENT) 18.8 SEC (9.98-11.88)
[2017-09-07] MEDS: ASPIRIN COATED 81 MG TABLET.EC PO SCH (09:33)
[2017-09-07] MEDS: PANTOPRAZOLE 40 MG TABLET (FP) PO SCH ×2 (09:33→21:48)
[2017-09-07] MEDS: CLOPIDOGREL BISULFATE 75 MG TABLET (FP) PO SCH (09:33)
[2017-09-07] MEDS: FOLIC ACID 1 MG TABLET (FP) PO SCH (09:33)
[2017-09-07] MEDS: AMIODARONE HCL 200 MG TABLET (FP) PO SCH (09:33)
[2017-09-07] MEDS: CARVEDILOL 6.25 MG TABLET (FP) PO SCH ×2 (09:33→21:47)
--- NOTE | 2017-09-07 10:39 | PN ---
Progress Note (short form) - Note Progress Note: Renal follow up for THEE/Fluid overload Pt seen and examined at the bedside awake and alert feels about the same as yesterday sob overall improved making urine weights improving Vital Signs Temperature 97.6 F 09/07/17 06:00 Pulse Rate 73 09/07/17 06:00 Respiratory Rate 20 09/07/17 06:00 Blood Pressure 134/86 09/07/17 06:00 O2 Sat by Pulse Oximetry (%) 97 09/06/17 21:00 Intake & Output 09/04/17 09/05/17 09/06/17 09/08/17 23:59 23:59 23:59 00:59 Intake Total 1260 1340 642.5 137.5 Output Total 1200 1650 1350 760 Balance 60 -310 -707.5 -622.5 Weight 73.936 kg 75.024 kg 74.389 kg 72.756 kg NAD awake and alert RRR, NO M/R + rales soft NT/ND NO LE edema CBC, BMP 09/07/17 06:30 09/07/17 06:30 Current Medications Amiodarone HCl (Cordarone -) 200 mg PO DAILY [facility] Last Admin: 09/07/17 09:33 Dose: 200 mg Aspirin (Ecotrin -) 81 mg PO DAILY [facility] Last Admin: 09/07/17 09:33 Dose: 81 mg Calcium Acetate (Phoslo -) 667 mg PO TIDCM [facility] Last Admin: 09/07/17 08:40 Dose: 667 mg Carvedilol (Coreg -) 6.25 mg PO BID [facility] Last Admin: 09/07/17 09:33 Dose: 6.25 mg Clopidogrel Bisulfate (Plavix -) 75 mg PO DAILY [facility] Last Admin: 09/07/17 09:33 Dose: 75 mg Ferrous Gluconate (Fergon -) 324 mg PO DAILY [facility] Last Admin: 09/07/17 09:32 Dose: 324 mg Folic Acid (Folic Acid -) 1 mg PO DAILY [facility] Last Admin: 09/07/17 09:33 Dose: 1 mg Hydralazine HCl (Apresoline -) 10 mg PO TID [facility] Last Admin: 09/07/17 06:37 Dose: 10 mg CEFTRIAXONE 1 G/50 ML PREMIX (Ceftriaxone 1 Gm-D5w Bag) 50 mls @ 100 mls/hr IVPB DAILY [facility] Last Admin: 09/07/17 09:32 Dose: 100 mls/hr Furosemide 100 mg/ Sodium (Chloride) 50 mls @ 2.5 mls/hr IVPB TITR [facility]; 5 MG/HR PRN Reason: Protocol Last Admin: 09/06/17 12:30 Dose: 5 mg/hr, 2.5 mls/hr Insulin Aspart (Novolog Vial Sliding Scale -) 1 vial SQ TIDAC [facility] PRN Reason: Protocol Last Admin: 09/07/17 06:46 Dose: 4 units Insulin Detemir (Levemir Vial) 35 units SQ HS [facility] Last Admin: 09/06/17 21:32 Dose: 35 units Isosorbide Dinitrate (Isordil -) 10 mg PO TIDISORDIL [facility] Last Admin: 09/07/17 08:40 Dose: 10 mg Pantoprazole Sodium (Protonix -) 40 mg PO BID [facility] Last Admin: 09/07/17 09:33 Dose: 40 mg Rosuvastatin Calcium (Crestor -) 10 mg PO HS [facility] Last Admin: 09/06/17 21:33 Dose: 10 mg Tamsulosin HCl (Flomax -) 0.4 mg PO HS [facility] Last Admin: 09/06/17 21:33 Dose: 0.4 mg ASSESSMENT AND PLAN: 77 year old gentleman with PMhx of CAD s/p recent [place] and cardiac cath, Hypertension, HLD, IDDM, CHF, BPH who presented with SOB and admitted for CHF exacerbation with Cr of 3 #Acute Renal failure secondary to SOSA with volume overload and Hyperkalemia Renal function stable volume status and weight improved continue Lasix gtt trend BUN/Cr and electrolytes daily can consider increasing Lasix gtt to 7.5mg per hour no acute indication for [employer] Florencio Del Cid DO
[2017-09-07] MEDS ORDERED: ALBUTEROL SO4 2.5/IPRATROPIUM 0.5 INH SOL 3 ML VIAL.NEB. NEB SCH (16:00)
[2017-09-07] MEDS ORDERED: WARFARIN NA 5 MG TABLET (UD) PO ONE (18:00)
[2017-09-07] MEDS: FUROSEMIDE INJECTION 100 MG in SODIUM CHLORIDE 40 ML IVPB SCH (18:00)
--- NOTE | 2017-09-07 20:00 | EKG ---
Test Reason : Blood Pressure : / mmHG Vent. Rate : 080 BPM Atrial Rate : 080 BPM P-R Int : 190 ms QRS Dur : 108 ms QT Int : 414 ms P-R-T Axes : 023 -55 104 degrees QTc Int : 477 ms SINUS RHYTHM WITH OCCASIONAL PREMATURE VENTRICULAR COMPLEXES POSSIBLE LEFT ATRIAL ENLARGEMENT LEFT AXIS DEVIATION LEFT VENTRICULAR HYPERTROPHY WITH REPOLARIZATION ABNORMALITY INFERIOR INFARCT (CITED ON OR BEFORE 09-APR-2016) ANTEROSEPTAL INFARCT (CITED ON OR BEFORE 02-JAN-2015) ABNORMAL ECG WHEN COMPARED WITH ECG OF 06-SEP-2017 22:25, SINUS RHYTHM HAS REPLACED ATRIAL FIBRILLATION VENT. RATE HAS DECREASED Confirmed by TOMASA OLMOS MD ([id number]) on 09/07/2017 8:00:47 PM Referred By: Confirmed By:TOMASA OLMOS MD
--- NOTE | 2017-09-07 20:02 | EKG ---
Test Reason : Blood Pressure : / mmHG Vent. Rate : 107 BPM Atrial Rate : 119 BPM P-R Int : 000 ms QRS Dur : 102 ms QT Int : 362 ms P-R-T Axes : 000 -58 115 degrees QTc Int : 483 ms POSSIBLE ATRIAL FIBRILLATION WITH RAPID VENTRICULAR RESPONSE LEFT AXIS DEVIATION MODERATE VOLTAGE CRITERIA FOR LVH, MAY BE NORMAL VARIANT INFERIOR INFARCT (CITED ON OR BEFORE 09-APR-2016) ANTEROSEPTAL INFARCT (CITED ON OR BEFORE 02-JAN-2015) MARKED ST ABNORMALITY, POSSIBLE LATERAL SUBENDOCARDIAL INJURY ABNORMAL ECG WHEN COMPARED WITH ECG OF 05-SEP-2017 09:04, ATRIAL FIBRILLATION HAS REPLACED SINUS RHYTHM VENT. RATE HAS INCREASED Confirmed by TOMASA OLMOS MD ([id number]) on 09/07/2017 8:02:14 PM Referred By: Confirmed By:TOMASA OLMOS MD
[2017-09-07] MEDS: ALBUTEROL SO4 0.083% IH SOL 2.5 MG/3 ML VIAL.NEB. NEB SCH (20:40)
[2017-09-07] MEDS: ROSUVASTATIN CA 10 MG TABLET (FP) PO SCH (21:47)
[2017-09-07] MEDS: TAMSULOSIN HCL 0.4 MG CAP.ER.24H (FP) PO SCH (21:48)
[2017-09-07] MEDS: INSULIN DETEMIR 100 UNITS/ML MDV SQ SCH (21:51)
--- NOTE | 2017-09-07 23:44 | PN ---
Progress Note, Physician History of Present Illness: Progress note for 09/06/17. Continues to have SOB with wheezing which improves with inhalation. No shaking chills. - Current Medication List Current Medications: Active Medications Albuterol Sulfate (Ventolin 0.083% Nebulizer Soln -) 1 amp NEB RTID [facility] Last Admin: 09/07/17 20:40 Dose: 1 amp Amiodarone HCl (Cordarone -) 200 mg PO DAILY [facility] Last Admin: 09/07/17 09:33 Dose: 200 mg Aspirin (Ecotrin -) 81 mg PO DAILY [facility] Last Admin: 09/07/17 09:33 Dose: 81 mg Calcium Acetate (Phoslo -) 667 mg PO TIDCM [facility] Last Admin: 09/07/17 17:55 Dose: 667 mg Carvedilol (Coreg -) 6.25 mg PO BID [facility] Last Admin: 09/07/17 21:47 Dose: 6.25 mg Clopidogrel Bisulfate (Plavix -) 75 mg PO DAILY [facility] Last Admin: 09/07/17 09:33 Dose: 75 mg Ferrous Gluconate (Fergon -) 324 mg PO DAILY [facility] Last Admin: 09/07/17 09:32 Dose: 324 mg Folic Acid (Folic Acid -) 1 mg PO DAILY [facility] Last Admin: 09/07/17 09:33 Dose: 1 mg Hydralazine HCl (Apresoline -) 10 mg PO TID [facility] Last Admin: 09/07/17 21:47 Dose: 10 mg CEFTRIAXONE 1 G/50 ML PREMIX (Ceftriaxone 1 Gm-D5w Bag) 50 mls @ 100 mls/hr IVPB DAILY [facility] Last Admin: 09/07/17 09:32 Dose: 100 mls/hr Furosemide 100 mg/ Sodium (Chloride) 50 mls @ 2.5 mls/hr IVPB TITR [facility]; 5 MG/HR PRN Reason: Protocol Last Admin: 09/07/17 18:00 Dose: Not Given Insulin Aspart (Novolog Vial Sliding Scale -) 1 vial SQ TIDAC [facility] PRN Reason: Protocol Last Admin: 09/07/17 16:37 Dose: 4 units Insulin Detemir (Levemir Vial) 35 units SQ HS [facility] Last Admin: 09/07/17 21:51 Dose: 35 units Isosorbide Dinitrate (Isordil -) 10 mg PO TIDISORDIL [facility] Last Admin: 09/07/17 17:54 Dose: 10 mg Pantoprazole Sodium (Protonix -) 40 mg PO BID [facility] Last Admin: 09/07/17 21:48 Dose: 40 mg Rosuvastatin Calcium (Crestor -) 10 mg PO HS [facility] Last Admin: 09/07/17 21:47 Dose: 10 mg Tamsulosin HCl (Flomax -) 0.4 mg PO [facility] Last Admin: 09/07/17 21:48 Dose: 0.4 mg - Objective Vital Signs: Vital Signs Temperature 98 F 09/07/17 22:00 Pulse Rate 73 09/07/17 22:00 Respiratory Rate 20 09/07/17 22:00 Blood Pressure 146/80 09/07/17 22:00 O2 Sat by Pulse Oximetry (%) 97 09/07/17 21:00 Constitutional: Yes: Mild Distress Eyes: Yes: WNL, Conjunctiva Clear HENT: Yes: WNL Neck: Yes: WNL, Supple Cardiovascular: Yes: Regular Rate and Rhythm, S1, S2 Respiratory: Yes: Rales, Wheezes Gastrointestinal: Yes: Normal Bowel Sounds, Soft Genitourinary: Yes: WNL Musculoskeletal: Yes: WNL Extremities: Yes: WNL Edema: No Peripheral Pulses WNL: Yes Neurological: Yes: Alert, Oriented ...Motor Strength: WNL Psychiatric: Yes: Alert, Oriented Labs: CBC, BMP 09/07/17 06:30 09/07/17 06:30 INR, PTT INR 1.66 (0.82-1.09) H 09/07/17 09:10 - ....Imaging Chest X-ray: Report Reviewed, Image Reviewed Problem List - Problems (1) Pneumonia Assessment/Plan: Chest Xray still with bilateal infiltrates without any progression Code(s): J18.9 - PNEUMONIA, UNSPECIFIED ORGANISM (2) Acute on chronic systolic CHF (congestive heart failure) Assessment/Plan: Continues to have SOB, started on IV Lasix drip as BUN and CR are elevated Code(s): I50.23 - ACUTE ON CHRONIC SYSTOLIC (CONGESTIVE) HEART FAILURE (3) Anemia Assessment/Plan: Hemoglobin is stable around 9Gm Code(s): D64.9 - ANEMIA, UNSPECIFIED (4) Chronic renal disease Code(s): N18.9 - CHRONIC KIDNEY DISEASE, UNSPECIFIED (5) HTN (hypertension) Code(s): I10 - ESSENTIAL (PRIMARY) HYPERTENSION (6) LV (left ventricular) mural thrombus Code(s): OHL7111 - (7) Shortness of breath Code(s): R06.02 - SHORTNESS OF BREATH (8) Diabetes mellitus Assessment/Plan: BGM are fluctuating and is being covered with regular Insulin Code(s): E11.9 - TYPE 2 DIABETES MELLITUS WITHOUT COMPLICATIONS Qualifiers: Diabetes mellitus complication status: with ophthalmic complications Diabetes mellitus complication detail: with diabetic retinopathy Assessment/Plan Continue IV Lasix drip and follow BUN and creatinine. IV Rocephin to continue
--- NOTE | 2017-09-07 23:53 | PN ---
Progress Note, Physician History of Present Illness: Continues to have episodes of SOB which improve after inhalation treatment. Remains afebrile without cough. - Current Medication List Current Medications: Active Medications Albuterol Sulfate (Ventolin 0.083% Nebulizer Soln -) 1 amp NEB RTID [facility] Last Admin: 09/07/17 20:40 Dose: 1 amp Amiodarone HCl (Cordarone -) 200 mg PO DAILY [facility] Last Admin: 09/07/17 09:33 Dose: 200 mg Aspirin (Ecotrin -) 81 mg PO DAILY [facility] Last Admin: 09/07/17 09:33 Dose: 81 mg Calcium Acetate (Phoslo -) 667 mg PO TIDCM [facility] Last Admin: 09/07/17 17:55 Dose: 667 mg Carvedilol (Coreg -) 6.25 mg PO BID [facility] Last Admin: 09/07/17 21:47 Dose: 6.25 mg Clopidogrel Bisulfate (Plavix -) 75 mg PO DAILY [facility] Last Admin: 09/07/17 09:33 Dose: 75 mg Ferrous Gluconate (Fergon -) 324 mg PO DAILY [facility] Last Admin: 09/07/17 09:32 Dose: 324 mg Folic Acid (Folic Acid -) 1 mg PO DAILY [facility] Last Admin: 09/07/17 09:33 Dose: 1 mg Hydralazine HCl (Apresoline -) 10 mg PO TID [facility] Last Admin: 09/07/17 21:47 Dose: 10 mg CEFTRIAXONE 1 G/50 ML PREMIX (Ceftriaxone 1 Gm-D5w Bag) 50 mls @ 100 mls/hr IVPB DAILY [facility] Last Admin: 09/07/17 09:32 Dose: 100 mls/hr Furosemide 100 mg/ Sodium (Chloride) 50 mls @ 2.5 mls/hr IVPB TITR [facility]; 5 MG/HR PRN Reason: Protocol Last Admin: 09/07/17 18:00 Dose: Not Given Insulin Aspart (Novolog Vial Sliding Scale -) 1 vial SQ TIDAC [facility] PRN Reason: Protocol Last Admin: 09/07/17 16:37 Dose: 4 units Insulin Detemir (Levemir Vial) 35 units SQ HS [facility] Last Admin: 09/07/17 21:51 Dose: 35 units Isosorbide Dinitrate (Isordil -) 10 mg PO TIDISORDIL [facility] Last Admin: 09/07/17 17:54 Dose: 10 mg Pantoprazole Sodium (Protonix -) 40 mg PO BID [facility] Last Admin: 09/07/17 21:48 Dose: 40 mg Rosuvastatin Calcium (Crestor -) 10 mg PO [facility] Last Admin: 09/07/17 21:47 Dose: 10 mg Tamsulosin HCl (Flomax -) 0.4 mg PO [facility] Last Admin: 09/07/17 21:48 Dose: 0.4 mg - Objective Vital Signs: Vital Signs Temperature 98 F 09/07/17 22:00 Pulse Rate 73 09/07/17 22:00 Respiratory Rate 20 09/07/17 22:00 Blood Pressure 146/80 09/07/17 22:00 O2 Sat by Pulse Oximetry (%) 97 09/07/17 21:00 Constitutional: Yes: Calm, Mild Distress Eyes: Yes: Conjunctiva Clear HENT: Yes: WNL Neck: Yes: Supple Cardiovascular: Yes: Regular Rate and Rhythm, S1, S2 Respiratory: Yes: Rales Gastrointestinal: Yes: Normal Bowel Sounds, Soft Genitourinary: Yes: WNL Musculoskeletal: Yes: WNL Extremities: Yes: WNL Edema: No Peripheral Pulses WNL: Yes Integumentary: Yes: WNL Neurological: Yes: Alert, Oriented ...Motor Strength: WNL Psychiatric: Yes: Alert, Oriented Labs: CBC, BMP 09/07/17 06:30 09/07/17 06:30 INR, PTT INR 1.66 (0.82-1.09) H 09/07/17 09:10 Problem List - Problems (1) Pneumonia Assessment/Plan: Repeat chest XRAY shows fluffy infiltrates bilateral which could be fungal and will get ID to evaluate Code(s): J18.9 - PNEUMONIA, UNSPECIFIED ORGANISM (2) Acute on chronic systolic CHF (congestive heart failure) Code(s): I50.23 - ACUTE ON CHRONIC SYSTOLIC (CONGESTIVE) HEART FAILURE (3) Anemia Assessment/Plan: Anemia with Hb 9Gm which is due to GI bleed from past admission superimposed most likely on anemia of chronic disease Code(s): D64.9 - ANEMIA, UNSPECIFIED (4) Chronic renal disease Assessment/Plan: BUN and creatinine are stable Code(s): N18.9 - CHRONIC KIDNEY DISEASE, UNSPECIFIED (5) HTN (hypertension) Code(s): I10 - ESSENTIAL (PRIMARY) HYPERTENSION (6) LV (left ventricular) mural thrombus Code(s): [id number] - (7) Shortness of breath Code(s): R06.02 - SHORTNESS OF BREATH (8) Diabetes mellitus Code(s): E11.9 - TYPE 2 DIABETES MELLITUS WITHOUT COMPLICATIONS Qualifiers: Diabetes mellitus complication status: with ophthalmic complications Diabetes mellitus complication detail: with diabetic retinopathy Assessment/Plan Chest Xray shows bilateral fluffy infiltrates which could be due to fungal infection. Will get , ID to evaluate, will continue Rocephin in interim.
[2017-09-08] MEDS ORDERED: ALBUTEROL SO4 0.083% IH SOL 2.5 MG/3 ML VIAL.NEB. NEB ONE (00:44)
[2017-09-08] MEDS: ALBUTEROL SO4 0.083% IH SOL 2.5 MG/3 ML VIAL.NEB. NEB PRN (00:54)
[2017-09-08] MEDS: hydrALAZINE HCL 10 MG TABLET PO SCH ×3 (06:18→21:05)
[2017-09-08] MEDS: INSULIN SLIDING SCALE (NOVOLOG) 1 VIAL SQ SCH ×3 (06:33→17:42)
[2017-09-08 07:14] LABS: HEMATOCRIT 29.8 % (35.4-49); HEMOGLOBIN 9.6 GM/dL (11.7-16.9); MCH 25.2 pg (25.7-33.7); MCHC 32.4 g/dl (32.0-35.9); MEAN CELL VOLUME 77.8 fl (80-96); MEAN PLT VOLUME 9.7 fl (7.5-11.1); PLATELET COUNT 164 K/MM3 (134-434); RBC 3.83 M/mm3 (4.00-5.60); RDW 16.7 % (11.9-15.9); WHITE BLOOD COUNT 6.6 K/mm3 (4.0-10.0)
[2017-09-08] MEDS: ALBUTEROL SO4 0.083% IH SOL 2.5 MG/3 ML VIAL.NEB. NEB SCH ×3 (07:20→20:10)
[2017-09-08 07:29] LABS: INR 1.67 (0.82-1.09); PROTHROMBIN TIME (PATIENT) 18.9 SEC (9.98-11.88)
[2017-09-08] MEDS: CALCIUM ACETATE 667 MG CAPSULE (FP) PO SCH ×3 (08:40→17:27)
[2017-09-08] MEDS: ISOSORBIDE DINITRATE 10 MG TABLET (FP) PO SCH ×3 (08:40→17:27)
[2017-09-08] MEDS ORDERED: PT OWN MED DRAWER 7, Y5N ONE ×2 (08:51→20:54)
[2017-09-08] MEDS: FOLIC ACID 1 MG TABLET (FP) PO SCH (09:18)
[2017-09-08] MEDS: CEFTRIAXONE 1 G/50 ML PREMIX 50 ML IVPB SCH (09:19)
[2017-09-08] MEDS: AMIODARONE HCL 200 MG TABLET (FP) PO SCH (09:19)
[2017-09-08] MEDS: FERROUS GLUCONATE 324 MG TAB (FP) PO SCH (09:19)
[2017-09-08] MEDS: CARVEDILOL 6.25 MG TABLET (FP) PO SCH ×2 (09:19→21:05)
[2017-09-08] MEDS: ASPIRIN COATED 81 MG TABLET.EC PO SCH (09:19)
[2017-09-08] MEDS: CLOPIDOGREL BISULFATE 75 MG TABLET (FP) PO SCH (09:19)
[2017-09-08] MEDS: PANTOPRAZOLE 40 MG TABLET (FP) PO SCH ×2 (09:19→21:05)
--- NOTE | 2017-09-08 09:26 | PN ---
Progress Note, Physician Chief Complaint: ID Full note dictated Complains of "runny eyes" and nonproductive couph NO fever chills - Current Medication List Current Medications: Active Medications Albuterol Sulfate (Ventolin 0.083% Nebulizer Soln -) 1 amp NEB RTID [facility] Last Admin: 09/08/17 07:20 Dose: 1 amp Albuterol Sulfate (Ventolin 0.083% Nebulizer Soln -) 1 amp NEB Q4H PRN PRN Reason: SHORT OF BREATH/WHEEZING Last Admin: 09/08/17 00:54 Dose: 1 amp Amiodarone HCl (Cordarone -) 200 mg PO DAILY [facility] Last Admin: 09/07/17 09:33 Dose: 200 mg Aspirin (Ecotrin -) 81 mg PO DAILY [facility] Last Admin: 09/07/17 09:33 Dose: 81 mg Calcium Acetate (Phoslo -) 667 mg PO TIDCM [facility] Last Admin: 09/08/17 08:40 Dose: 667 mg Carvedilol (Coreg -) 6.25 mg PO BID [facility] Last Admin: 09/07/17 21:47 Dose: 6.25 mg Clopidogrel Bisulfate (Plavix -) 75 mg PO DAILY [facility] Last Admin: 09/07/17 09:33 Dose: 75 mg Ferrous Gluconate (Fergon -) 324 mg PO DAILY [facility] Last Admin: 09/07/17 09:32 Dose: 324 mg Folic Acid (Folic Acid -) 1 mg PO DAILY [facility] Last Admin: 09/07/17 09:33 Dose: 1 mg Hydralazine HCl (Apresoline -) 10 mg PO TID [facility] Last Admin: 09/08/17 06:18 Dose: 10 mg CEFTRIAXONE 1 G/50 ML PREMIX (Ceftriaxone 1 Gm-D5w Bag) 50 mls @ 100 mls/hr IVPB DAILY [facility] Last Admin: 09/07/17 09:32 Dose: 100 mls/hr Furosemide 100 mg/ Sodium (Chloride) 50 mls @ 2.5 mls/hr IVPB TITR [facility]; 5 MG/HR PRN Reason: Protocol Last Admin: 09/07/17 18:00 Dose: Not Given Insulin Aspart (Novolog Vial Sliding Scale -) 1 vial SQ TIDAC [facility] PRN Reason: Protocol Last Admin: 09/08/17 06:33 Dose: 4 units Insulin Detemir (Levemir Vial) 35 units SQ HS [facility] Last Admin: 09/07/17 21:51 Dose: 35 units Isosorbide Dinitrate (Isordil -) 10 mg PO TIDISORDIL [facility] Last Admin: 09/08/17 08:40 Dose: 10 mg Pantoprazole Sodium (Protonix -) 40 mg PO BID [facility] Last Admin: 09/07/17 21:48 Dose: 40 mg Rosuvastatin Calcium (Crestor -) 10 mg PO [facility] Last Admin: 09/07/17 21:47 Dose: 10 mg Tamsulosin HCl (Flomax -) 0.4 mg PO [facility] Last Admin: 09/07/17 21:48 Dose: 0.4 mg - Objective Vital Signs: Vital Signs Temperature 97.8 F 09/08/17 06:00 Pulse Rate 70 09/08/17 06:00 Respiratory Rate 20 09/08/17 06:00 Blood Pressure 114/60 09/08/17 06:00 O2 Sat by Pulse Oximetry (%) 97 09/07/17 21:00 Eyes: Yes: Conjunctiva Clear Neck: Yes: WNL, Supple Cardiovascular: Yes: Regular Rate and Rhythm, S1, S2 Respiratory: Yes: WNL, Regular, CTA Bilaterally, Rales Gastrointestinal: Yes: Soft Edema: Yes Labs: CBC, BMP 09/08/17 06:34 09/07/17 06:30 INR, PTT INR 1.67 (0.82-1.09) H 09/08/17 06:34 Assessment/Plan Microbiology 09/06/17 20:56 Urine - Urine Clean Catch Legionella Antigen - Final 09/06/17 20:56 Urine - Urine Clean Catch Streptococcus pneumoniae Antigen ( M - Final Laboratory Tests 09/05/17 09/07/17 09/08/17 06:30 06:30 06:34 WBC 6.6 Hgb 9.6 L Plt Count 164 BUN 104 H Creatinine 3.2 H Cold Agglutinins Pending Assessment Persistant airspace disease despite diuretics ? "atypical pneumonia " with conjunctivitis considered Mycoplasma unusual in this age group but other atypicals including viral disease considered Could be CHF related Plan Stop Ceftriaxone as this is not pneumococcal pneumonia Treat for atypicals with Levofloxacin 250mg daily after 500 initially Tobramycin opthalmic gtss both eyes Influenza screen CT noncontrast chest Jeri GALVAN
--- NOTE | 2017-09-08 09:48 | PN ---
Progress Note, Physician - Current Medication List Current Medications: Active Medications Albuterol Sulfate (Ventolin 0.083% Nebulizer Soln -) 1 amp NEB RTID [facility] Last Admin: 09/08/17 07:20 Dose: 1 amp Albuterol Sulfate (Ventolin 0.083% Nebulizer Soln -) 1 amp NEB Q4H PRN PRN Reason: SHORT OF BREATH/WHEEZING Last Admin: 09/08/17 00:54 Dose: 1 amp Amiodarone HCl (Cordarone -) 200 mg PO DAILY [facility] Last Admin: 09/08/17 09:19 Dose: 200 mg Aspirin (Ecotrin -) 81 mg PO DAILY [facility] Last Admin: 09/08/17 09:19 Dose: 81 mg Calcium Acetate (Phoslo -) 667 mg PO TIDCM [facility] Last Admin: 09/08/17 08:40 Dose: 667 mg Carvedilol (Coreg -) 6.25 mg PO BID [facility] Last Admin: 09/08/17 09:19 Dose: 6.25 mg Clopidogrel Bisulfate (Plavix -) 75 mg PO DAILY [facility] Last Admin: 09/08/17 09:19 Dose: 75 mg Ferrous Gluconate (Fergon -) 324 mg PO DAILY [facility] Last Admin: 09/08/17 09:19 Dose: 324 mg Folic Acid (Folic Acid -) 1 mg PO DAILY [facility] Last Admin: 09/08/17 09:18 Dose: 1 mg Hydralazine HCl (Apresoline -) 10 mg PO TID [facility] Last Admin: 09/08/17 06:18 Dose: 10 mg Furosemide 100 mg/ Sodium (Chloride) 50 mls @ 2.5 mls/hr IVPB TITR [facility]; 5 MG/HR PRN Reason: Protocol Last Admin: 09/07/17 18:00 Dose: Not Given Insulin Aspart (Novolog Vial Sliding Scale -) 1 vial SQ TIDAC [facility] PRN Reason: Protocol Last Admin: 09/08/17 06:33 Dose: 4 units Insulin Detemir (Levemir Vial) 35 units SQ HS [facility] Last Admin: 09/07/17 21:51 Dose: 35 units Isosorbide Dinitrate (Isordil -) 10 mg PO TIDISORDIL [facility] Last Admin: 09/08/17 08:40 Dose: 10 mg Levofloxacin (Levaquin -) 500 mg PO ONCE ONE Stop: 09/08/17 09:46 Levofloxacin (Levaquin -) 250 mg PO DAILY [facility] Pantoprazole Sodium (Protonix -) 40 mg PO BID [facility] Last Admin: 09/08/17 09:19 Dose: 40 mg Rosuvastatin Calcium (Crestor -) 10 mg PO [facility] Last Admin: 09/07/17 21:47 Dose: 10 mg Tamsulosin HCl (Flomax -) 0.4 mg PO [facility] Last Admin: 09/07/17 21:48 Dose: 0.4 mg - Objective Vital Signs: Vital Signs Temperature 97.8 F 09/08/17 06:00 Pulse Rate 70 09/08/17 06:00 Respiratory Rate 20 09/08/17 06:00 Blood Pressure 114/60 09/08/17 06:00 O2 Sat by Pulse Oximetry (%) 97 09/07/17 21:00 Labs: CBC, BMP 09/08/17 06:34 09/07/17 06:30 INR, PTT INR 1.67 (0.82-1.09) H 09/08/17 06:34 Problem List - Problems (1) Primary atypical pneumonia Code(s): J18.9 - PNEUMONIA, UNSPECIFIED ORGANISM (2) Acute on chronic systolic CHF (congestive heart failure) Code(s): I50.23 - ACUTE ON CHRONIC SYSTOLIC (CONGESTIVE) HEART FAILURE
--- NOTE | 2017-09-08 10:37 | CONS ---
DATE OF CONSULTATION: HISTORY: This is a 77-year-old male whom I am asked to see for the possibility of pneumonia. The patient presents with a recent myocardial infarction in July of this year. He underwent coronary catheterization with placement of [address] [facility] complicated by renal failure as per his . He spent approximately 3 weeks in the hospital before discharge. He went home and 3 days later is readmitted with chief complaint of shortness of breath and a nonproductive cough. He had no fever, chills, elevated WBC on admission, and his chest x-ray showed bilateral pulmonary congestion initially thought compatible with congestive heart failure. He has been treated with Lasix diuretics and seen by Dr. Moreno here. He was also placed on ceftriaxone empirically by Dr. Hess, which he has been on for 4 days. His cough is persistent and nonproductive with no hemoptysis, and he also notes bilateral runny eyes. He denies any purulent eye discharge. His x-ray shows persistent "pulmonary congestion". He has no history of recent travel, and his last travel was to [place] in 2017. He has no unusual hobbies, pet exposures, and on HIV risk factors. PAST MEDICAL HISTORY: Includes CVA with full recovery, coronary artery disease with multiple stents, congestive heart failure, hypertension, hyperlipidemia, prior [place], chronic kidney disease, anxiety disorder, diabetes mellitus. MEDICATIONS: Amiodarone, aspirin, carvedilol, Plavix, Lasix, hydralazine, insulin, Protonix, Crestor, Flomax, Coumadin, nitroglycerin. ALLERGIES: None known. SOCIAL HISTORY: Lives with his . No recent travel. Nonsmoker. No alcohol abuse. FAMILY HISTORY: Noncontributory. REVIEW OF SYSTEMS: Respiratory: Shortness of breath, nonproductive cough. HEENT: Conjunctival tearing. Cardiac: No chest pain, palpitations, syncope. Gastrointestinal: No weight loss, abdominal pain, nausea, vomiting. Genitourinary: No dysuria, hematuria, urinary frequency. PHYSICAL EXAMINATION: Vital Signs: The temperature is 97.8, pulse 70, blood pressure 114/60, respirations 20. General: An alert male in mild respiratory distress. Neck: Supple. Lungs: Clear to percussion with bilateral crackles. Heart: S1, S2. Regular rhythm without audible murmur. Abdomen: Soft, nontender without hepatosplenomegaly. Extremities: Without clubbing, cyanosis, or edema. LABORATORY DATA: The white count is 6.6, hemoglobin 9.6, platelets 164, INR 1.67, BUN 104, creatinine 3.2. There are no liver enzymes. No urinalysis. Chest x- ray dated September 07 shows no significant change in "air-space disease". ASSESSMENT: A 77-year-old male with extensive comorbidities, coronary artery disease, diabetes, and hypertension, recent prolonged admission at [facility] for placement of multiple stents, home 3 days admitted now with shortness of breath and nonproductive cough, coryza. In the absence of any fever or chills, persistent pulmonary infiltrates most likely consistent with fluid overload; however, the possibility of an "atypical pneumonitis" is considered including viral organisms. Mycoplasma unusual in this age group. Dr. Hess ordered cold agglutinins, which are pending. PLAN: Discontinue ceftriaxone as I doubt this is a pneumococcal or gram- negative pneumonia. Substitute levofloxacin for coverage of atypical organisms adjusted for creatinine clearance. Send him for a CT of the chest noncontrast for further delineation of pulmonary infiltrates. Obtain an ESR and a CRP. QuantiFeron Gold,Tobramycin eye drops. AYSHA HARDING M.D. [id number] MTDD
--- NOTE | 2017-09-08 11:22 | PN ---
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 Had [address] during [facility] ([facility] renal "shutdown" occurred, per , and pt had a prolonged course before discharge home. Pt has been compliant with his medications, which include Aspirin, Plavix , Coumadin, amiodarone, carvedilol, hydralazine, isordil, rosuvastatin, furosemide. Today pt has had worsening SOB. H/o CHF pt given total of Lasix 80mg by family and pt has been urinating frequently. Pt denies CP at this time. - Current Medication List Current Medications: Active Medications Albuterol Sulfate (Ventolin 0.083% Nebulizer Soln -) 1 amp NEB RTID [facility] Last Admin: 09/08/17 07:20 Dose: 1 amp Albuterol Sulfate (Ventolin 0.083% Nebulizer Soln -) 1 amp NEB Q4H PRN PRN Reason: SHORT OF BREATH/WHEEZING Last Admin: 09/08/17 00:54 Dose: 1 amp Amiodarone HCl (Cordarone -) 200 mg PO DAILY [facility] Last Admin: 09/08/17 09:19 Dose: 200 mg Aspirin (Ecotrin -) 81 mg PO DAILY [facility] Last Admin: 09/08/17 09:19 Dose: 81 mg Calcium Acetate (Phoslo -) 667 mg PO TIDCM [facility] Last Admin: 09/08/17 08:40 Dose: 667 mg Carvedilol (Coreg -) 6.25 mg PO BID [facility] Last Admin: 09/08/17 09:19 Dose: 6.25 mg Clopidogrel Bisulfate (Plavix -) 75 mg PO DAILY [facility] Last Admin: 09/08/17 09:19 Dose: 75 mg Ferrous Gluconate (Fergon -) 324 mg PO DAILY [facility] Last Admin: 09/08/17 09:19 Dose: 324 mg Folic Acid (Folic Acid -) 1 mg PO DAILY [facility] Last Admin: 09/08/17 09:18 Dose: 1 mg Hydralazine HCl (Apresoline -) 10 mg PO TID [facility] Last Admin: 09/08/17 06:18 Dose: 10 mg Furosemide 100 mg/ Sodium (Chloride) 50 mls @ 2.5 mls/hr IVPB TITR [facility]; 5 MG/HR PRN Reason: Protocol Last Admin: 09/07/17 18:00 Dose: Not Given Insulin Aspart (Novolog Vial Sliding Scale -) 1 vial SQ TIDAC [facility] PRN Reason: Protocol Last Admin: 09/08/17 06:33 Dose: 4 units Insulin Detemir (Levemir Vial) 35 units SQ HS [facility] Last Admin: 09/07/17 21:51 Dose: 35 units Isosorbide Dinitrate (Isordil -) 10 mg PO TIDISORDIL [facility] Last Admin: 09/08/17 08:40 Dose: 10 mg Levofloxacin (Levaquin -) 250 mg PO DAILY [facility] Pantoprazole Sodium (Protonix -) 40 mg PO BID [facility] Last Admin: 09/08/17 09:19 Dose: 40 mg Rosuvastatin Calcium (Crestor -) 10 mg PO HS [facility] Last Admin: 09/07/17 21:47 Dose: 10 mg Tamsulosin HCl (Flomax -) 0.4 mg PO [facility] Last Admin: 09/07/17 21:48 Dose: 0.4 mg Tobramycin Sulfate (Tobrex Ophthalmic Solution -) 1 drop OU TID [facility] - Objective Vital Signs: Vital Signs Temperature 97.8 F 09/08/17 06:00 Pulse Rate 70 09/08/17 06:00 Respiratory Rate 20 09/08/17 06:00 Blood Pressure 114/60 09/08/17 06:00 O2 Sat by Pulse Oximetry (%) 97 09/07/17 21:00 Eyes: Yes: WNL, Conjunctiva Clear, EOM Intact HENT: Yes: WNL, Atraumatic, Normocephalic Neck: Yes: WNL, Supple, Trachea Midline Cardiovascular: Yes: WNL, Regular Rate and Rhythm Respiratory: Yes: WNL, Regular, CTA Bilaterally Gastrointestinal: Yes: WNL, Normal Bowel Sounds Genitourinary: Yes: WNL Musculoskeletal: Yes: WNL Extremities: Yes: WNL Edema: No Integumentary: Yes: WNL Neurological: Yes: WNL, Alert, Oriented ...Motor Strength: WNL Psychiatric: Yes: WNL Labs: CBC, BMP 09/08/17 06:34 09/07/17 06:30 INR, PTT INR 1.67 (0.82-1.09) H 09/08/17 06:34 Assessment/Plan - Problems (1) HTN (hypertension) Assessment/Plan: On carvedilol for systolic CHF, HTN, CAD, s/p SC. On hydralazine + Isordil for systolic CHF, HTN. (Ongoing renal dysfunction precludes ACEI or ARB). On furosemide for systolic CHF, HTN, though renal status will have to be followed closely, as discussed with nephrology team. Code(s): I10 - ESSENTIAL (PRIMARY) HYPERTENSION (2) Status post myocardial infarction Assessment/Plan: Recent (07/2017) SC treated at [facility] with several coronary stents. On amiodarone 200 mg daily, likely for VT or VF elin-SC (to obtain records for precise reason necessitating use of this medication). Monitor closely for side effects. Pt is on statin, diuretic, and warfarin, all of which may influence amiodarone. Increase dose of carvedilol as tolerated (SC; systolic CHF; arrhythmia). Code(s): I25.2 - OLD MYOCARDIAL INFARCTION (3) CVA (cerebral infarction) Assessment/Plan: left lacunar infarct, right encephalomalacia noted on [address] CT. Code(s): I63.9 - CEREBRAL INFARCTION, UNSPECIFIED (4) Diabetes mellitus Code(s): E11.9 - TYPE 2 DIABETES MELLITUS WITHOUT COMPLICATIONS Qualifiers: Diabetes mellitus complication status: with ophthalmic complications Diabetes mellitus complication detail: with diabetic retinopathy (5) Hx of heart artery stent Assessment/Plan: as per c. cath report; PCI asya x3 RCA, PTCA rpda Code(s): Z95.5 - PRESENCE OF CORONARY ANGIOPLASTY IMPLANT AND GRAFT (6) Non-sustained ventricular tachycardia Assessment/Plan: Obtain [facility] records; pt has been on amiodarone started during treatment for SC last month. Optimize carvedilol. Code(s): I47.2 - VENTRICULAR TACHYCARDIA (7) Renal dysfunction Assessment/Plan: Pt underwent several coronary stents as treatment for recent SC; renal shutdown apparently ensued post-procedure, resulting in several days in ICU. Pt Code(s): N28.9 - DISORDER OF KIDNEY AND URETER, UNSPECIFIED (8) Acute on chronic systolic CHF (congestive heart failure) Assessment/Plan: Pt has been symptomatic for several days; +JVD; rales and expiratory wheezes on ausculatation; congestive changes on CXR. On carvedilol, amiodarone, hydralazine+isordil. (Renal dysfunction precludes ACEI or ARB presently). F/u records from [facility] (ECHO, stents, clinical course). As discussed with photographer helper, because of acute CHF, furosemide to be continued while closely monitoring renal parameters. Keep electrolytes WNL; this is especially important with pt taking amiodarone. BUN/Cr, electrolytes, daily weight, Is and Os. may need increased dose of lasix/ lasix drip or HD if diuresis non effective Code(s): I50.23 - ACUTE ON CHRONIC SYSTOLIC (CONGESTIVE) HEART FAILURE (9) Anxiety and depression Assessment/Plan: Pt denies, though cries several times during interview (this may also be due to residual effects of CVA). Code(s): F41.8 - OTHER SPECIFIED ANXIETY DISORDERS (10) LV (left ventricular) mural thrombus Assessment/Plan: On warfarin (stop IV heparin when INR approaches 2.0). will repeat echo feels better today , rales resolved, worsening BUN/Cr. cont present rx renalk f/u echo yeater normal ef brief episode of AF with rvr in sr now cont ac (LV thrombus) d/c albuterol - sob due to chf and b agonist may trigger af
[2017-09-08 11:50] LABS: ANION GAP 12 (8-16); BLOOD UREA NITROGEN 88 mg/dL (7-18); CALCIUM 8.4 mg/dL (8.5-10.1); CHLORIDE 92 mmol/L (98-107); CO2 30 mmol/L (21-32); CREATININE 2.8 mg/dL (0.7-1.3); POTASSIUM 4.4 mmol/L (3.5-5.1); SODIUM 134 mmol/L (136-145)
[2017-09-08 11:55] LABS: GLUCOSE,RANDOM 357 mg/dL (74-106)
[2017-09-08] MEDS ORDERED: WARFARIN NA 3 MG TABLET PO ONE (12:15)
[2017-09-08] MEDS: FUROSEMIDE INJECTION 100 MG in SODIUM CHLORIDE 40 ML IVPB SCH (14:13)
[2017-09-08] MEDS: TOBRAMYCIN 0.3% OPHTH SOLN 5 ML BOTTLE OU SCH ×2 (14:13→21:06)
--- NOTE | 2017-09-08 15:02 | PN ---
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 Had [address] during catheterization ([facility]); renal "shutdown" occurred, per , and pt had a prolonged course before discharge home. Pt has been compliant with his medications, which include Aspirin, Plavix , Coumadin, amiodarone, carvedilol, hydralazine, isordil, rosuvastatin, furosemide. Today pt has had worsening SOB. H/o CHF pt given total of Lasix 80mg by family and pt has been urinating frequently. Pt denies CP at this time. - Current Medication List Current Medications: Active Medications Albuterol Sulfate (Ventolin 0.083% Nebulizer Soln -) 1 amp NEB RTID [facility] Last Admin: 09/08/17 13:46 Dose: 1 amp Albuterol Sulfate (Ventolin 0.083% Nebulizer Soln -) 1 amp NEB Q4H PRN PRN Reason: SHORT OF BREATH/WHEEZING Last Admin: 09/08/17 00:54 Dose: 1 amp Amiodarone HCl (Cordarone -) 200 mg PO DAILY [facility] Last Admin: 09/08/17 09:19 Dose: 200 mg Aspirin (Ecotrin -) 81 mg PO DAILY [facility] Last Admin: 09/08/17 09:19 Dose: 81 mg Calcium Acetate (Phoslo -) 667 mg PO TIDCM [facility] Last Admin: 09/08/17 12:50 Dose: 667 mg Carvedilol (Coreg -) 6.25 mg PO BID [facility] Last Admin: 09/08/17 09:19 Dose: 6.25 mg Clopidogrel Bisulfate (Plavix -) 75 mg PO DAILY [facility] Last Admin: 09/08/17 09:19 Dose: 75 mg Ferrous Gluconate (Fergon -) 324 mg PO DAILY [facility] Last Admin: 09/08/17 09:19 Dose: 324 mg Folic Acid (Folic Acid -) 1 mg PO DAILY [facility] Last Admin: 09/08/17 09:18 Dose: 1 mg Hydralazine HCl (Apresoline -) 10 mg PO TID [facility] Last Admin: 09/08/17 14:12 Dose: 10 mg Furosemide 100 mg/ Sodium (Chloride) 50 mls @ 3.75 mls/hr IVPB TITR [facility]; 7.5 MG /HR PRN Reason: Protocol Last Admin: 09/08/17 14:13 Dose: 7.5 mg/hr, 3.75 mls/hr Insulin Aspart (Novolog Vial Sliding Scale -) 1 vial SQ TIDAC [facility] PRN Reason: Protocol Last Admin: 09/08/17 12:48 Dose: 12 units Insulin Detemir (Levemir Vial) 35 units SQ HS [facility] Last Admin: 09/07/17 21:51 Dose: 35 units Isosorbide Dinitrate (Isordil -) 10 mg PO TIDISORDIL [facility] Last Admin: 09/08/17 12:50 Dose: 10 mg Levofloxacin (Levaquin -) 250 mg PO DAILY [facility] Pantoprazole Sodium (Protonix -) 40 mg PO BID [facility] Last Admin: 09/08/17 09:19 Dose: 40 mg Rosuvastatin Calcium (Crestor -) 10 mg PO HS [facility] Last Admin: 09/07/17 21:47 Dose: 10 mg Tamsulosin HCl (Flomax -) 0.4 mg PO HS [facility] Last Admin: 09/07/17 21:48 Dose: 0.4 mg Tobramycin Sulfate (Tobrex Ophthalmic Solution -) 1 drop OU TID [facility] Last Admin: 09/08/17 14:13 Dose: 1 drop - Objective Vital Signs: Vital Signs Temperature 97.9 F 09/08/17 14:11 Pulse Rate 75 09/08/17 14:11 Respiratory Rate 20 09/08/17 14:11 Blood Pressure 128/58 09/08/17 14:11 O2 Sat by Pulse Oximetry (%) 96 09/08/17 09:00 Eyes: Yes: WNL, Conjunctiva Clear, EOM Intact HENT: Yes: WNL, Atraumatic, Normocephalic Neck: Yes: WNL, Supple, Trachea Midline Cardiovascular: Yes: WNL, Regular Rate and Rhythm Respiratory: Yes: WNL, Regular, CTA Bilaterally Gastrointestinal: Yes: WNL, Normal Bowel Sounds Genitourinary: Yes: WNL Musculoskeletal: Yes: WNL Extremities: Yes: WNL Edema: No Integumentary: Yes: WNL Neurological: Yes: WNL, Alert, Oriented ...Motor Strength: WNL Psychiatric: Yes: WNL Labs: CBC, BMP 09/08/17 06:34 09/08/17 10:10 INR, PTT INR 1.67 (0.82-1.09) H 09/08/17 06:34 Assessment/Plan - Problems (1) HTN (hypertension) Assessment/Plan: On carvedilol for systolic CHF, HTN, CAD, s/p UT. On hydralazine + Isordil for systolic CHF, HTN. (Ongoing renal dysfunction precludes ACEI or ARB). On furosemide for systolic CHF, HTN, though renal status will have to be followed closely, as discussed with nephrology team. Code(s): I10 - ESSENTIAL (PRIMARY) HYPERTENSION (2) Status post myocardial infarction Assessment/Plan: Recent (07/2017) UT treated at [facility] with several coronary stents. On amiodarone 200 mg daily, likely for VT or VF elin-UT (to obtain records for precise reason necessitating use of this medication). Monitor closely for side effects. Pt is on statin, diuretic, and warfarin, all of which may influence amiodarone. Increase dose of carvedilol as tolerated (UT; systolic CHF; arrhythmia). Code(s): I25.2 - OLD MYOCARDIAL INFARCTION (3) CVA (cerebral infarction) Assessment/Plan: left lacunar infarct, right encephalomalacia noted on [address] CT. Code(s): I63.9 - CEREBRAL INFARCTION, UNSPECIFIED (4) Diabetes mellitus Code(s): E11.9 - TYPE 2 DIABETES MELLITUS WITHOUT COMPLICATIONS Qualifiers: Diabetes mellitus complication status: with ophthalmic complications Diabetes mellitus complication detail: with diabetic retinopathy (5) Hx of heart artery stent Assessment/Plan: as per c. cath report; PCI asya x3 RCA, PTCA rpda Code(s): Z95.5 - PRESENCE OF CORONARY ANGIOPLASTY IMPLANT AND GRAFT (6) Non-sustained ventricular tachycardia Assessment/Plan: Obtain [facility] records; pt has been on amiodarone started during treatment for UT last month. Optimize carvedilol. Code(s): I47.2 - VENTRICULAR TACHYCARDIA (7) Renal dysfunction Assessment/Plan: Pt underwent several coronary stents as treatment for recent UT; renal shutdown apparently ensued post-procedure, resulting in several days in ICU. Pt Code(s): N28.9 - DISORDER OF KIDNEY AND URETER, UNSPECIFIED (8) Acute on chronic systolic CHF (congestive heart failure) Assessment/Plan: Pt has been symptomatic for several days; +JVD; rales and expiratory wheezes on ausculatation; congestive changes on CXR. On carvedilol, amiodarone, hydralazine+isordil. (Renal dysfunction precludes ACEI or ARB presently). F/u records from [facility] (ECHO, stents, clinical course). As discussed with creative services coordinator, because of acute CHF, furosemide to be continued while closely monitoring renal parameters. Keep electrolytes WNL; this is especially important with pt taking amiodarone. BUN/Cr, electrolytes, daily weight, Is and Os. may need increased dose of lasix/ lasix drip or HD if diuresis non effective Code(s): I50.23 - ACUTE ON CHRONIC SYSTOLIC (CONGESTIVE) HEART FAILURE (9) Anxiety and depression Assessment/Plan: Pt denies, though cries several times during interview (this may also be due to residual effects of CVA). Code(s): F41.8 - OTHER SPECIFIED ANXIETY DISORDERS (10) LV (left ventricular) mural thrombus Assessment/Plan: On warfarin (stop IV heparin when INR approaches 2.0). will repeat echo feels better today , rales resolved, worsening BUN/Cr. cont present rx renalk f/u echo yeaterday normal ef brief episode of AF with rvr in sr now cont ac (LV thrombus) d/c albuterol - sob due to chf and b agonist may trigger af
--- NOTE | 2017-09-08 18:26 | PN ---
Progress Note (short form) - Note Progress Note: Renal follow up for THEE/Fluid overload Pt seen and examined at the bedside awake and alert sitting in the chair reports continued SOB, chest congestion no chest pain making urine weights improving Vital Signs Temperature 97.9 F 09/08/17 14:11 Pulse Rate 75 09/08/17 14:11 Respiratory Rate 20 09/08/17 14:11 Blood Pressure 128/58 09/08/17 14:11 O2 Sat by Pulse Oximetry (%) 96 09/08/17 09:00 Intake & Output 09/05/17 09/06/17 09/07/17 09/08/17 22:59 22:59 23:59 23:59 Intake Total 230 Output Total 1150 Balance -920 Weight 72.178 kg NAD awake and alert RRR, NO M/R + rales soft NT/ND NO LE edema CBC, BMP 09/08/17 06:34 09/08/17 10:10 Current Medications Albuterol Sulfate (Ventolin 0.083% Nebulizer Soln -) 1 amp NEB RTID [facility] Last Admin: 09/08/17 13:46 Dose: 1 amp Albuterol Sulfate (Ventolin 0.083% Nebulizer Soln -) 1 amp NEB Q4H PRN PRN Reason: SHORT OF BREATH/WHEEZING Last Admin: 09/08/17 00:54 Dose: 1 amp Amiodarone HCl (Cordarone -) 200 mg PO DAILY [facility] Last Admin: 09/08/17 09:19 Dose: 200 mg Aspirin (Ecotrin -) 81 mg PO DAILY [facility] Last Admin: 09/08/17 09:19 Dose: 81 mg Calcium Acetate (Phoslo -) 667 mg PO TIDCM [facility] Last Admin: 09/08/17 17:27 Dose: 667 mg Carvedilol (Coreg -) 6.25 mg PO BID [facility] Last Admin: 09/08/17 09:19 Dose: 6.25 mg Clopidogrel Bisulfate (Plavix -) 75 mg PO DAILY [facility] Last Admin: 09/08/17 09:19 Dose: 75 mg Ferrous Gluconate (Fergon -) 324 mg PO DAILY [facility] Last Admin: 09/08/17 09:19 Dose: 324 mg Folic Acid (Folic Acid -) 1 mg PO DAILY [facility] Last Admin: 09/08/17 09:18 Dose: 1 mg Hydralazine HCl (Apresoline -) 10 mg PO TID [facility] Last Admin: 09/08/17 14:12 Dose: 10 mg Furosemide 100 mg/ Sodium (Chloride) 50 mls @ 3.75 mls/hr IVPB TITR [facility]; 7.5 MG /HR PRN Reason: Protocol Last Admin: 09/08/17 14:13 Dose: 7.5 mg/hr, 3.75 mls/hr Insulin Aspart (Novolog Vial Sliding Scale -) 1 vial SQ TIDAC [facility] PRN Reason: Protocol Last Admin: 09/08/17 17:42 Dose: 2 units Insulin Detemir (Levemir Vial) 35 units SQ HS [facility] Last Admin: 09/07/17 21:51 Dose: 35 units Isosorbide Dinitrate (Isordil -) 10 mg PO TIDISORDIL [facility] Last Admin: 09/08/17 17:27 Dose: 10 mg Levofloxacin (Levaquin -) 250 mg PO DAILY [facility] Pantoprazole Sodium (Protonix -) 40 mg PO BID [facility] Last Admin: 09/08/17 09:19 Dose: 40 mg Rosuvastatin Calcium (Crestor -) 10 mg PO HS [facility] Last Admin: 09/07/17 21:47 Dose: 10 mg Tamsulosin HCl (Flomax -) 0.4 mg PO [facility] Last Admin: 09/07/17 21:48 Dose: 0.4 mg Tobramycin Sulfate (Tobrex Ophthalmic Solution -) 1 drop OU TID [facility] Last Admin: 09/08/17 14:13 Dose: 1 drop ASSESSMENT AND PLAN: 77 year old gentleman with PMhx of CAD s/p recent AR and cardiac cath, Hypertension, HLD, IDDM, CHF, BPH who presented with SOB and admitted for CHF exacerbation with Cr of 3 #Acute Renal failure secondary to SOSA with volume overload and Hyperkalemia Renal function improving with diureiss and improved cardiac output will increase Lasix gtt to 7.5mg per hour trend BUN/Cr, daily weights trial of bipap overnight as needed for SOB Cardiology follow up Florencio Del Cid DO
--- NOTE | 2017-09-08 20:21 | PN ---
Progress Note, Physician History of Present Illness: Continues to have episodes of SOB of breath with wheezing which improves with BD. He was seen by ALFREDO Magaña who ordered a CT scan of chest which shows bilateral infiltrates., suggestive of infectious or inflammatory nature, but pulmonary edema is a possibility. He has been started on IV Levaquin. - Current Medication List Current Medications: Active Medications Albuterol Sulfate (Ventolin 0.083% Nebulizer Soln -) 1 amp NEB RTID [facility] Last Admin: 09/08/17 13:46 Dose: 1 amp Albuterol Sulfate (Ventolin 0.083% Nebulizer Soln -) 1 amp NEB Q4H PRN PRN Reason: SHORT OF BREATH/WHEEZING Last Admin: 09/08/17 00:54 Dose: 1 amp Amiodarone HCl (Cordarone -) 200 mg PO DAILY [facility] Last Admin: 09/08/17 09:19 Dose: 200 mg Aspirin (Ecotrin -) 81 mg PO DAILY [facility] Last Admin: 09/08/17 09:19 Dose: 81 mg Calcium Acetate (Phoslo -) 667 mg PO TIDCM [facility] Last Admin: 09/08/17 17:27 Dose: 667 mg Carvedilol (Coreg -) 6.25 mg PO BID [facility] Last Admin: 09/08/17 09:19 Dose: 6.25 mg Clopidogrel Bisulfate (Plavix -) 75 mg PO DAILY [facility] Last Admin: 09/08/17 09:19 Dose: 75 mg Ferrous Gluconate (Fergon -) 324 mg PO DAILY [facility] Last Admin: 09/08/17 09:19 Dose: 324 mg Folic Acid (Folic Acid -) 1 mg PO DAILY [facility] Last Admin: 09/08/17 09:18 Dose: 1 mg Hydralazine HCl (Apresoline -) 10 mg PO TID [facility] Last Admin: 09/08/17 14:12 Dose: 10 mg Furosemide 100 mg/ Sodium (Chloride) 50 mls @ 3.75 mls/hr IVPB TITR [facility]; 7.5 MG /HR PRN Reason: Protocol Last Admin: 09/08/17 14:13 Dose: 7.5 mg/hr, 3.75 mls/hr Insulin Aspart (Novolog Vial Sliding Scale -) 1 vial SQ TIDAC [facility] PRN Reason: Protocol Last Admin: 09/08/17 17:42 Dose: 2 units Insulin Detemir (Levemir Vial) 35 units SQ HS [facility] Last Admin: 09/07/17 21:51 Dose: 35 units Isosorbide Dinitrate (Isordil -) 10 mg PO TIDISORDIL [facility] Last Admin: 09/08/17 17:27 Dose: 10 mg Levofloxacin (Levaquin -) 250 mg PO DAILY [facility] Pantoprazole Sodium (Protonix -) 40 mg PO BID [facility] Last Admin: 09/08/17 09:19 Dose: 40 mg Rosuvastatin Calcium (Crestor -) 10 mg PO [facility] Last Admin: 09/07/17 21:47 Dose: 10 mg Tamsulosin HCl (Flomax -) 0.4 mg PO [facility] Last Admin: 09/07/17 21:48 Dose: 0.4 mg Tobramycin Sulfate (Tobrex Ophthalmic Solution -) 1 drop OU TID [facility] Last Admin: 09/08/17 14:13 Dose: 1 drop - Objective Vital Signs: Vital Signs Temperature 98.1 F 09/08/17 18:00 Pulse Rate 76 09/08/17 18:00 Respiratory Rate 20 09/08/17 18:00 Blood Pressure 139/83 09/08/17 18:00 O2 Sat by Pulse Oximetry (%) 96 09/08/17 09:00 Constitutional: Yes: Calm, Moderate Distress Eyes: Yes: Conjunctiva Clear HENT: Yes: WNL Neck: Yes: Supple Cardiovascular: Yes: Regular Rate and Rhythm, S1, S2 Respiratory: Yes: On Nasal O2, Rales, SOB Gastrointestinal: Yes: Normal Bowel Sounds, Soft Musculoskeletal: Yes: WNL Extremities: Yes: WNL Edema: No Integumentary: Yes: WNL Neurological: Yes: Alert, Oriented ...Motor Strength: WNL Psychiatric: Yes: Alert, Oriented Labs: CBC, BMP 09/08/17 06:34 09/08/17 10:10 INR, PTT INR 1.67 (0.82-1.09) H 09/08/17 06:34 - ....Imaging Cat Scan: Report Reviewed Problem List - Problems (1) Pneumonia Assessment/Plan: Bilateral pneumonian most likely after present CT of chest.Remains afebrile and also without leukocytosis. Cold agglutinin is negative. Code(s): J18.9 - PNEUMONIA, UNSPECIFIED ORGANISM (2) Acute on chronic systolic CHF (congestive heart failure) Code(s): I50.23 - ACUTE ON CHRONIC SYSTOLIC (CONGESTIVE) HEART FAILURE (3) Anemia Assessment/Plan: Anemia is stable at 9.6 Gm. Has been started on Iron and Folic acid Code(s): D64.9 - ANEMIA, UNSPECIFIED (4) Chronic renal disease Assessment/Plan: Continues with IV Lasix drip. BUN is now 88 and CR 2.8 .Rate has been increased due to CHF Code(s): N18.9 - CHRONIC KIDNEY DISEASE, UNSPECIFIED (5) HTN (hypertension) Code(s): I10 - ESSENTIAL (PRIMARY) HYPERTENSION (6) LV (left ventricular) mural thrombus Code(s): [id number] - (7) Shortness of breath Code(s): R06.02 - SHORTNESS OF BREATH (8) Diabetes mellitus Code(s): E11.9 - TYPE 2 DIABETES MELLITUS WITHOUT COMPLICATIONS Qualifiers: Diabetes mellitus complication status: with ophthalmic complications Diabetes mellitus complication detail: with diabetic retinopathy Assessment/Plan Continue IV Levaquin as per . IV Lasix drip as per Dr Del Cid
[2017-09-08] MEDS: INSULIN DETEMIR 100 UNITS/ML MDV SQ SCH (21:05)
[2017-09-08] MEDS: TAMSULOSIN HCL 0.4 MG CAP.ER.24H (FP) PO SCH (21:05)
[2017-09-08] MEDS: ROSUVASTATIN CA 10 MG TABLET (FP) PO SCH (21:06)
[2017-09-09] MEDS ORDERED: PT OWN MED DRAWER 7, Y5N ONE ×3 (05:39→10:35)
[2017-09-09] MEDS: hydrALAZINE HCL 10 MG TABLET PO SCH (05:47)
[2017-09-09] MEDS: TOBRAMYCIN 0.3% OPHTH SOLN 5 ML BOTTLE OU SCH ×3 (05:47→21:15)
[2017-09-09] MEDS: INSULIN SLIDING SCALE (NOVOLOG) 1 VIAL SQ SCH ×3 (06:07→17:37)
[2017-09-09] MEDS: FUROSEMIDE INJECTION 100 MG in SODIUM CHLORIDE 40 ML IVPB SCH ×3 (06:08→18:44)
[2017-09-09] MEDS ORDERED: INSULIN (NOVOLOG) ASPART 100 UNITS/ML 10ML VIAL ONE (06:15)
[2017-09-09 06:50] LABS: INR 2.69 (0.82-1.09); PROTHROMBIN TIME (PATIENT) 30.4 SEC (9.98-11.88)
[2017-09-09 06:52] LABS: HEMATOCRIT 30.3 % (35.4-49); HEMOGLOBIN 9.8 GM/dL (11.7-16.9); MCH 25.1 pg (25.7-33.7); MCHC 32.4 g/dl (32.0-35.9); MEAN CELL VOLUME 77.6 fl (80-96); MEAN PLT VOLUME 9.3 fl (7.5-11.1); PLATELET COUNT 161 K/MM3 (134-434); RDW 16.8 % (11.9-15.9); WHITE BLOOD COUNT 6.1 K/mm3 (4.0-10.0)
[2017-09-09] MEDS: ALBUTEROL SO4 0.083% IH SOL 2.5 MG/3 ML VIAL.NEB. NEB SCH ×3 (08:37→19:17)
[2017-09-09] MEDS: CALCIUM ACETATE 667 MG CAPSULE (FP) PO SCH ×3 (10:39→17:38)
[2017-09-09] MEDS: ISOSORBIDE DINITRATE 10 MG TABLET (FP) PO SCH ×3 (10:45→17:39)
[2017-09-09] MEDS: CLOPIDOGREL BISULFATE 75 MG TABLET (FP) PO SCH (10:48)
[2017-09-09] MEDS: ASPIRIN COATED 81 MG TABLET.EC PO SCH (10:48)
[2017-09-09] MEDS: PANTOPRAZOLE 40 MG TABLET (FP) PO SCH ×2 (10:48→21:14)
[2017-09-09] MEDS: AMIODARONE HCL 200 MG TABLET (FP) PO SCH (10:48)
[2017-09-09] MEDS: CARVEDILOL 6.25 MG TABLET (FP) PO SCH (10:49)
[2017-09-09] MEDS: FOLIC ACID 1 MG TABLET (FP) PO SCH (10:49)
[2017-09-09 11:21] LABS: ANION GAP 11 (8-16); BLOOD UREA NITROGEN 83 mg/dL (7-18); CALCIUM 7.9 mg/dL (8.5-10.1); CHLORIDE 92 mmol/L (98-107); CO2 30 mmol/L (21-32); CREATININE 2.7 mg/dL (0.7-1.3); GLUCOSE,RANDOM 270 mg/dL (74-106); POTASSIUM 3.9 mmol/L (3.5-5.1); SODIUM 133 mmol/L (136-145)
--- NOTE | 2017-09-09 12:19 | PN ---
Progress Note, Physician Chief Complaint: Awake, alert OOB in chair No c/o chest pain/ dyspnea/ cough Afebrile WBC WNL ESR [address] chest shows bilateral infiltrates - Current Medication List Current Medications: Active Medications Albuterol Sulfate (Ventolin 0.083% Nebulizer Soln -) 1 amp NEB RTID [facility] Last Admin: 09/09/17 08:37 Dose: 1 amp Albuterol Sulfate (Ventolin 0.083% Nebulizer Soln -) 1 amp NEB Q4H PRN PRN Reason: SHORT OF BREATH/WHEEZING Last Admin: 09/08/17 00:54 Dose: 1 amp Amiodarone HCl (Cordarone -) 200 mg PO DAILY [facility] Last Admin: 09/09/17 10:48 Dose: 200 mg Aspirin (Ecotrin -) 81 mg PO DAILY [facility] Last Admin: 09/09/17 10:48 Dose: 81 mg Calcium Acetate (Phoslo -) 667 mg PO TIDCM [facility] Last Admin: 09/09/17 10:39 Dose: 667 mg Carvedilol (Coreg -) 6.25 mg PO BID [facility] Last Admin: 09/09/17 10:49 Dose: 6.25 mg Clopidogrel Bisulfate (Plavix -) 75 mg PO DAILY [facility] Last Admin: 09/09/17 10:48 Dose: 75 mg Ferrous Gluconate (Fergon -) 324 mg PO DAILY [facility] Last Admin: 09/08/17 09:19 Dose: 324 mg Folic Acid (Folic Acid -) 1 mg PO DAILY [facility] Last Admin: 09/09/17 10:49 Dose: 1 mg Hydralazine HCl (Apresoline -) 10 mg PO TID [facility] Last Admin: 09/09/17 05:47 Dose: 10 mg Furosemide 100 mg/ Sodium (Chloride) 50 mls @ 3.75 mls/hr IVPB TITR [facility]; 7.5 MG /HR PRN Reason: Protocol Last Admin: 09/09/17 06:08 Dose: 7.5 mg/hr, 3.75 mls/hr Insulin Aspart (Novolog Vial Sliding Scale -) 1 vial SQ TIDAC [facility] PRN Reason: Protocol Last Admin: 09/09/17 06:07 Dose: 6 units Insulin Detemir (Levemir Vial) 35 units SQ HS [facility] Last Admin: 09/08/17 21:05 Dose: 35 units Isosorbide Dinitrate (Isordil -) 10 mg PO TIDISORDIL [facility] Last Admin: 09/09/17 10:45 Dose: 10 mg Levofloxacin (Levaquin -) 250 mg PO DAILY [facility] Last Admin: 09/09/17 10:49 Dose: 250 mg Pantoprazole Sodium (Protonix -) 40 mg PO BID [facility] Last Admin: 09/09/17 10:48 Dose: 40 mg Rosuvastatin Calcium (Crestor -) 10 mg PO HS [facility] Last Admin: 09/08/17 21:06 Dose: 10 mg Tamsulosin HCl (Flomax -) 0.4 mg PO [facility] Last Admin: 09/08/17 21:05 Dose: 0.4 mg Tobramycin Sulfate (Tobrex Ophthalmic Solution -) 1 drop OU TID [facility] Last Admin: 09/09/17 05:47 Dose: 1 drop - Objective Vital Signs: Vital Signs Temperature 98.4 F 09/09/17 09:10 Pulse Rate 76 09/09/17 09:10 Respiratory Rate 19 09/09/17 09:10 Blood Pressure 138/64 09/09/17 09:10 O2 Sat by Pulse Oximetry (%) 100 09/09/17 05:56 Constitutional: Yes: No Distress Eyes: Yes: Conjunctiva Clear Cardiovascular: Yes: Regular Rate and Rhythm, S1, S2 Respiratory: Yes: Other (Few crepitations at bases bilaterally) Gastrointestinal: Yes: Normal Bowel Sounds, Soft. No: Tenderness Edema: LLE: 1+, RLE: 1+ Labs: CBC, BMP 09/09/17 05:30 09/09/17 05:30 INR, PTT INR 2.69 (0.82-1.09) H D 09/09/17 05:30 Assessment/Plan Bilateral pulmonary infiltrates pneumonia v. pulm edema ? Atypical pneumonia Continue empiric levaquin
--- NOTE | 2017-09-09 12:34 | PN ---
Progress Note, Physician Chief Complaint: Pt is sitting up OOB; feels better (no longer easily short of breath). 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 Had [address] during catheterization (IA [place]); renal "shutdown" occurred, per , and pt had a prolonged course before discharge home. Pt has been compliant with his medications, which include Aspirin, Plavix , Coumadin, amiodarone, carvedilol, hydralazine, isordil, rosuvastatin, furosemide. Today pt has had worsening SOB. H/o CHF pt given total of Lasix 80mg by family and pt has been urinating frequently. Pt denies CP at this time. - Current Medication List Current Medications: Active Medications Albuterol Sulfate (Ventolin 0.083% Nebulizer Soln -) 1 amp NEB RTID [facility] Last Admin: 09/09/17 08:37 Dose: 1 amp Albuterol Sulfate (Ventolin 0.083% Nebulizer Soln -) 1 amp NEB Q4H PRN PRN Reason: SHORT OF BREATH/WHEEZING Last Admin: 09/08/17 00:54 Dose: 1 amp Amiodarone HCl (Cordarone -) 200 mg PO DAILY [facility] Last Admin: 09/09/17 10:48 Dose: 200 mg Aspirin (Ecotrin -) 81 mg PO DAILY [facility] Last Admin: 09/09/17 10:48 Dose: 81 mg Calcium Acetate (Phoslo -) 667 mg PO TIDCM [facility] Last Admin: 09/09/17 10:39 Dose: 667 mg Carvedilol (Coreg -) 6.25 mg PO BID [facility] Last Admin: 09/09/17 10:49 Dose: 6.25 mg Clopidogrel Bisulfate (Plavix -) 75 mg PO DAILY [facility] Last Admin: 09/09/17 10:48 Dose: 75 mg Ferrous Gluconate (Fergon -) 324 mg PO DAILY [facility] Last Admin: 09/08/17 09:19 Dose: 324 mg Folic Acid (Folic Acid -) 1 mg PO DAILY [facility] Last Admin: 09/09/17 10:49 Dose: 1 mg Hydralazine HCl (Apresoline -) 10 mg PO TID [facility] Last Admin: 09/09/17 05:47 Dose: 10 mg Furosemide 100 mg/ Sodium (Chloride) 50 mls @ 3.75 mls/hr IVPB TITR [facility]; 7.5 MG /HR PRN Reason: Protocol Last Admin: 09/09/17 06:08 Dose: 7.5 mg/hr, 3.75 mls/hr Insulin Aspart (Novolog Vial Sliding Scale -) 1 vial SQ TIDAC [facility] PRN Reason: Protocol Last Admin: 09/09/17 06:07 Dose: 6 units Insulin Detemir (Levemir Vial) 35 units SQ HS [facility] Last Admin: 09/08/17 21:05 Dose: 35 units Isosorbide Dinitrate (Isordil -) 10 mg PO TIDISORDIL [facility] Last Admin: 09/09/17 10:45 Dose: 10 mg Levofloxacin (Levaquin -) 250 mg PO DAILY [facility] Last Admin: 09/09/17 10:49 Dose: 250 mg Pantoprazole Sodium (Protonix -) 40 mg PO BID [facility] Last Admin: 09/09/17 10:48 Dose: 40 mg Rosuvastatin Calcium (Crestor -) 10 mg PO HS [facility] Last Admin: 09/08/17 21:06 Dose: 10 mg Tamsulosin HCl (Flomax -) 0.4 mg PO [facility] Last Admin: 09/08/17 21:05 Dose: 0.4 mg Tobramycin Sulfate (Tobrex Ophthalmic Solution -) 1 drop OU TID [facility] Last Admin: 09/09/17 05:47 Dose: 1 drop - Objective Vital Signs: Vital Signs Temperature 98.4 F 09/09/17 09:10 Pulse Rate 76 09/09/17 09:10 Respiratory Rate 19 09/09/17 09:10 Blood Pressure 138/64 09/09/17 09:10 O2 Sat by Pulse Oximetry (%) 100 09/09/17 05:56 Constitutional: Yes: Anxious Eyes: Yes: WNL HENT: Yes: WNL Cardiovascular: Yes: S1, S2, S4 Respiratory: Yes: Regular Gastrointestinal: Yes: Soft ...Rectal Exam: Yes: Deferred Genitourinary: No: Anuria Labs: CBC, BMP 09/09/17 05:30 09/09/17 05:30 INR, PTT INR 2.69 (0.82-1.09) H D 09/09/17 05:30 Problem List - Problems (1) HTN (hypertension) Assessment/Plan: On carvedilol for systolic CHF, HTN, CAD, s/p MT. On hydralazine + Isordil for systolic CHF, HTN. (Ongoing renal dysfunction precludes ACEI or ARB, or spinronlactone). On furosemide for systolic CHF, HTN, though renal status will have to be followed closely, as discussed with nephrology team. Code(s): I10 - ESSENTIAL (PRIMARY) HYPERTENSION (2) Status post myocardial infarction Assessment/Plan: Recent (07/2017) STEMI treated at [facility] with several coronary stents ( proximal/mid/distal) to RCA, and angioplasty of RPDA. (Hx NSTEMI 2014 treated with proximal LAD stent).. Will discontinue amiodarone (which was started at [facility] 07/2017 for "inotropic-assisted diuresis", along with milronone). Increase carvedilol to 12.5 mg bid for HR, BP, and systolic CHF. BUN/Cr (chronic renal insufficiency); electrolytes, Is and Os, daily weight. Code(s): I25.2 - OLD MYOCARDIAL INFARCTION (3) CVA (cerebral infarction) Assessment/Plan: left lacunar infarct, right encephalomalacia noted on 2016 CT. Physical rehabilitation will be ikmportant for cardiac health. Code(s): I63.9 - CEREBRAL INFARCTION, UNSPECIFIED (4) Diabetes mellitus Code(s): E11.9 - TYPE 2 DIABETES MELLITUS WITHOUT COMPLICATIONS Qualifiers: Diabetes mellitus complication status: with ophthalmic complications Diabetes mellitus complication detail: with diabetic retinopathy (5) Hx of heart artery stent Assessment/Plan: Records reviewed: Pt underwent Xience DE stents x 4 to prox, mid, and distal RCA; : DE stent to RPL; and RPDA angioplasty for STEMI treatment 07/2017. Planned for IVUS of residual pLAD 80%, D1 90% (hx PCI to mid and distal LAD 2009 , and NSTEMI 2014 s/p PCI to RPL, dRCA, adn pLCx). Contiinue ASA and clopidogrel; also on warfarin for LV thrombus. Code(s): Z95.5 - PRESENCE OF CORONARY ANGIOPLASTY IMPLANT AND GRAFT (6) Renal dysfunction Assessment/Plan: F/u with pan operator. Pt is now on furosemide IV drip; improving Cr. Code(s): N28.9 - DISORDER OF KIDNEY AND URETER, UNSPECIFIED (7) Acute on chronic systolic CHF (congestive heart failure) Assessment/Plan: Continue carvedilol (increased dose to 12.5 bid). Discontinue amiodarone (started at [facility] while in ICU undergoing inotrpe-assisted diuresis). Continue hydralazine + isordil for reduced afterload, decreassed mortality with systolic CHF (and pt unable to use ACEI, ARB, or spironolactone due to renal dysfunction presently). ECHO: improved LVEF compared to initially during STEMI treatment 07/2017, when it was severely reduced; LVEF is now mildly reduced on 09/05/17 ECHO. Code(s): I50.23 - ACUTE ON CHRONIC SYSTOLIC (CONGESTIVE) HEART FAILURE (8) Anxiety and depression Assessment/Plan: Pt denies, though cries several times during interview (this may also be due to residual effects of CVA). His says the crying spells have essentially started since the recent STEMI. Consider starting antidepressant medication. Code(s): F41.8 - OTHER SPECIFIED ANXIETY DISORDERS (9) LV (left ventricular) mural thrombus Assessment/Plan: On warfarin; INR therapeutic. Code(s): [id number] -
[2017-09-09] MEDS: FERROUS GLUCONATE 324 MG TAB (FP) PO SCH (12:52)
[2017-09-09] MEDS ORDERED: CARVEDILOL 6.25 MG TABLET (FP) PO ONE (13:30)
--- NOTE | 2017-09-09 16:23 | EKG ---
Test Reason : Blood Pressure : / mmHG Vent. Rate : 070 BPM Atrial Rate : 070 BPM P-R Int : 196 ms QRS Dur : 106 ms QT Int : 458 ms P-R-T Axes : 032 -63 099 degrees QTc Int : 494 ms SINUS RHYTHM WITH OCCASIONAL PREMATURE VENTRICULAR COMPLEXES POSSIBLE LEFT ATRIAL ENLARGEMENT LEFT AXIS DEVIATION LEFT VENTRICULAR HYPERTROPHY WITH REPOLARIZATION ABNORMALITY INFERIOR INFARCT (CITED ON OR BEFORE 09-APR-2016) ANTEROSEPTAL INFARCT (CITED ON OR BEFORE 02-JAN-2015) ABNORMAL ECG WHEN COMPARED WITH ECG OF 09-SEP-2017 13:50, NO SIGNIFICANT CHANGE WAS FOUND Confirmed by MD PHYLLIS, TOÑITO ([id number]) on 09/09/2017 4:23:10 PM Referred By: Confirmed By:TOÑITO FERGUSON MD
--- NOTE | 2017-09-09 17:40 | PN ---
Progress Note (short form) - Note Progress Note: Renal follow up for THEE/Fluid overload Pt seen and examined at the bedside sitting in chair on bipap overnight feels better no fever, chills no chest pain Vital Signs Temperature 97.8 F 09/09/17 14:41 Pulse Rate 68 09/09/17 14:41 Respiratory Rate 20 09/09/17 14:41 Blood Pressure 130/72 09/09/17 14:41 O2 Sat by Pulse Oximetry (%) 97 09/09/17 13:18 NAD awake and alert RRR, NO M/R + rales soft NT/ND NO LE edema ASSESSMENT AND PLAN: 77 year old gentleman with PMhx of CAD s/p recent MT and cardiac cath, Hypertension, HLD, IDDM, CHF, BPH who presented with SOB and admitted for CHF exacerbation with Cr of 3 #Acute Renal failure secondary to SOSA with volume overload and Hyperkalemia continue lasix gtt trend renal function, improving thus far continue bipap as needed cardiology follow up no indication for [employer] Florencio Del Cid DO
[2017-09-09] MEDS ORDERED: WARFARIN NA 3 MG TABLET PO ONE (18:30)
--- NOTE | 2017-09-09 20:49 | PN ---
Progress Note, Physician History of Present Illness: Feels better with some improvement in SOB. Was able to sleep better with BIPAP. Denies any chest pain, PND. Appetite is improving. - Current Medication List Current Medications: Active Medications Albuterol Sulfate (Ventolin 0.083% Nebulizer Soln -) 1 amp NEB RTID [facility] Last Admin: 09/09/17 19:17 Dose: 1 amp Albuterol Sulfate (Ventolin 0.083% Nebulizer Soln -) 1 amp NEB Q4H PRN PRN Reason: SHORT OF BREATH/WHEEZING Last Admin: 09/08/17 00:54 Dose: 1 amp Aspirin (Ecotrin -) 81 mg PO DAILY [facility] Last Admin: 09/09/17 10:48 Dose: 81 mg Calcium Acetate (Phoslo -) 667 mg PO TIDCM [facility] Last Admin: 09/09/17 17:38 Dose: 667 mg Carvedilol (Coreg -) 12.5 mg PO BID [facility] Clopidogrel Bisulfate (Plavix -) 75 mg PO DAILY [facility] Last Admin: 09/09/17 10:48 Dose: 75 mg Ferrous Gluconate (Fergon -) 324 mg PO DAILY [facility] Last Admin: 09/09/17 12:52 Dose: 324 mg Folic Acid (Folic Acid -) 1 mg PO DAILY [facility] Last Admin: 09/09/17 10:49 Dose: 1 mg Hydralazine HCl (Apresoline -) 25 mg PO BID [facility] Furosemide 100 mg/ Sodium (Chloride) 50 mls @ 3.75 mls/hr IVPB TITR COREY; 7.5 MG /HR PRN Reason: Protocol Last Admin: 09/09/17 18:44 Dose: 7.5 mg/hr, 3.75 mls/hr Insulin Aspart (Novolog Vial Sliding Scale -) 1 vial SQ TIDAC [facility] PRN Reason: Protocol Last Admin: 09/09/17 17:37 Dose: 4 units Insulin Detemir (Levemir Vial) 35 units SQ HS [facility] Last Admin: 09/08/17 21:05 Dose: 35 units Isosorbide Dinitrate (Isordil -) 10 mg PO BIDISORDIL [facility] Last Admin: 09/09/17 17:39 Dose: 10 mg Levofloxacin (Levaquin -) 250 mg PO DAILY [facility] Last Admin: 09/09/17 10:49 Dose: 250 mg Pantoprazole Sodium (Protonix -) 40 mg PO BID [facility] Last Admin: 09/09/17 10:48 Dose: 40 mg Rosuvastatin Calcium (Crestor -) 10 mg PO [facility] Last Admin: 09/08/17 21:06 Dose: 10 mg Tamsulosin HCl (Flomax -) 0.4 mg PO [facility] Last Admin: 09/08/17 21:05 Dose: 0.4 mg Tobramycin Sulfate (Tobrex Ophthalmic Solution -) 1 drop OU TID [facility] Last Admin: 09/09/17 15:03 Dose: 1 drop - Objective Vital Signs: Vital Signs Temperature 97.6 F 09/09/17 17:56 Pulse Rate 68 09/09/17 17:56 Respiratory Rate 20 09/09/17 17:56 Blood Pressure 140/68 09/09/17 17:56 O2 Sat by Pulse Oximetry (%) 97 09/09/17 13:18 Constitutional: Yes: Well Nourished, Mild Distress Eyes: Yes: Conjunctiva Clear HENT: Yes: WNL Neck: Yes: Supple Cardiovascular: Yes: Regular Rate and Rhythm, S1, S2 Respiratory: Yes: On Nasal O2, Rales Gastrointestinal: Yes: Normal Bowel Sounds, Soft Genitourinary: Yes: WNL Musculoskeletal: Yes: WNL Extremities: Yes: WNL Edema: No Peripheral Pulses WNL: Yes Integumentary: Yes: WNL Neurological: Yes: Alert, Oriented ...Motor Strength: WNL Psychiatric: Yes: Alert, Oriented Labs: CBC, BMP 09/09/17 05:30 09/09/17 05:30 INR, PTT INR 2.69 (0.82-1.09) H D 09/09/17 05:30 - ....Imaging EKG: Report Reviewed, Image Reviewed Problem List - Problems (1) Pneumonia Assessment/Plan: Difficult to say if pulmonary findings are due to CHF or infectious. CT scan findings more towards infectious, Is being treated with Levaquin. Code(s): J18.9 - PNEUMONIA, UNSPECIFIED ORGANISM (2) Acute on chronic systolic CHF (congestive heart failure) Code(s): I50.23 - ACUTE ON CHRONIC SYSTOLIC (CONGESTIVE) HEART FAILURE (3) Anemia Assessment/Plan: Anemia improving with iron replacement Code(s): D64.9 - ANEMIA, UNSPECIFIED (4) Chronic renal disease Code(s): N18.9 - CHRONIC KIDNEY DISEASE, UNSPECIFIED (5) HTN (hypertension) Code(s): I10 - ESSENTIAL (PRIMARY) HYPERTENSION (6) LV (left ventricular) mural thrombus Code(s): [id number] - (7) Shortness of breath Assessment/Plan: Used BIPAP last night and appears to have had less SOB. IV Lasix drip being continued due to volume overload Code(s): R06.02 - SHORTNESS OF BREATH (8) Diabetes mellitus Code(s): E11.9 - TYPE 2 DIABETES MELLITUS WITHOUT COMPLICATIONS Qualifiers: Diabetes mellitus complication status: with ophthalmic complications Diabetes mellitus complication detail: with diabetic retinopathy Assessment/Plan Continue IV lasix drip due CHF with acute renal failure. Will repeat chest Xray in AM to assess CHF
[2017-09-09] MEDS: ROSUVASTATIN CA 10 MG TABLET (FP) PO SCH (21:14)
[2017-09-09] MEDS: CARVEDILOL 12.5 MG TABLET (FP) PO SCH (21:14)
[2017-09-09] MEDS: INSULIN DETEMIR 100 UNITS/ML MDV SQ SCH (21:14)
[2017-09-09] MEDS: hydrALAZINE HCL 25 MG TABLET (FP) PO SCH (21:14)
[2017-09-09] MEDS: TAMSULOSIN HCL 0.4 MG CAP.ER.24H (FP) PO SCH (21:14)
[2017-09-10] MEDS ORDERED: PT OWN MED DRAWER 7, Y5N ONE ×4 (05:39→10:18)
[2017-09-10] MEDS: INSULIN SLIDING SCALE (NOVOLOG) 1 VIAL SQ SCH ×3 (06:00→17:06)
[2017-09-10] MEDS: TOBRAMYCIN 0.3% OPHTH SOLN 5 ML BOTTLE OU SCH ×3 (06:00→22:33)
[2017-09-10 06:05] LABS: INR 2.76 (0.82-1.09); PROTHROMBIN TIME (PATIENT) 31.2 SEC (9.98-11.88)
[2017-09-10 06:07] LABS: HEMATOCRIT 30.1 % (35.4-49); HEMOGLOBIN 9.8 GM/dL (11.7-16.9); MCH 25.3 pg (25.7-33.7); MCHC 32.5 g/dl (32.0-35.9); MEAN CELL VOLUME 77.8 fl (80-96); MEAN PLT VOLUME 10.2 fl (7.5-11.1); PLATELET COUNT 194 K/MM3 (134-434); RBC 3.86 M/mm3 (4.00-5.60); RDW 16.5 % (11.9-15.9); WHITE BLOOD COUNT 5.6 K/mm3 (4.0-10.0)
--- NOTE | 2017-09-10 07:20 | PN ---
Progress Note, Physician Chief Complaint: ID Remains afebrile On Levofloxacin - Current Medication List Current Medications: Active Medications Albuterol Sulfate (Ventolin 0.083% Nebulizer Soln -) 1 amp NEB RTID [facility] Last Admin: 09/09/17 19:17 Dose: 1 amp Albuterol Sulfate (Ventolin 0.083% Nebulizer Soln -) 1 amp NEB Q4H PRN PRN Reason: SHORT OF BREATH/WHEEZING Last Admin: 09/08/17 00:54 Dose: 1 amp Aspirin (Ecotrin -) 81 mg PO DAILY [facility] Last Admin: 09/09/17 10:48 Dose: 81 mg Calcium Acetate (Phoslo -) 667 mg PO TIDCM [facility] Last Admin: 09/09/17 17:38 Dose: 667 mg Carvedilol (Coreg -) 12.5 mg PO BID [facility] Last Admin: 09/09/17 21:14 Dose: 12.5 mg Clopidogrel Bisulfate (Plavix -) 75 mg PO DAILY [facility] Last Admin: 09/09/17 10:48 Dose: 75 mg Ferrous Gluconate (Fergon -) 324 mg PO DAILY [facility] Last Admin: 09/09/17 12:52 Dose: 324 mg Folic Acid (Folic Acid -) 1 mg PO DAILY [facility] Last Admin: 09/09/17 10:49 Dose: 1 mg Hydralazine HCl (Apresoline -) 25 mg PO BID [facility] Last Admin: 09/09/17 21:14 Dose: 25 mg Furosemide 100 mg/ Sodium (Chloride) 50 mls @ 3.75 mls/hr IVPB TITR COREY; 7.5 MG /HR PRN Reason: Protocol Last Admin: 09/09/17 18:44 Dose: 7.5 mg/hr, 3.75 mls/hr Insulin Aspart (Novolog Vial Sliding Scale -) 1 vial SQ TIDAC [facility] PRN Reason: Protocol Last Admin: 09/10/17 06:00 Dose: 10 units Insulin Detemir (Levemir Vial) 35 units SQ HS [facility] Last Admin: 09/09/17 21:14 Dose: 35 units Isosorbide Dinitrate (Isordil -) 10 mg PO BIDISORDIL [facility] Last Admin: 09/09/17 17:39 Dose: 10 mg Levofloxacin (Levaquin -) 250 mg PO DAILY [facility] Last Admin: 09/09/17 10:49 Dose: 250 mg Pantoprazole Sodium (Protonix -) 40 mg PO BID [facility] Last Admin: 09/09/17 21:14 Dose: 40 mg Rosuvastatin Calcium (Crestor -) 10 mg PO [facility] Last Admin: 09/09/17 21:14 Dose: 10 mg Tamsulosin HCl (Flomax -) 0.4 mg PO [facility] Last Admin: 09/09/17 21:14 Dose: 0.4 mg Tobramycin Sulfate (Tobrex Ophthalmic Solution -) 1 drop OU TID [facility] Last Admin: 09/10/17 06:00 Dose: 1 drop - Objective Vital Signs: Vital Signs Temperature 97.8 F 09/10/17 06:24 Pulse Rate 71 09/10/17 06:24 Respiratory Rate 18 09/10/17 06:24 Blood Pressure 133/66 09/10/17 06:24 O2 Sat by Pulse Oximetry (%) 97 09/10/17 04:15 Constitutional: Yes: No Distress Cardiovascular: Yes: Regular Rate and Rhythm, S1, S2. No: Murmur Respiratory: Yes: WNL, Regular, CTA Bilaterally, Rales Gastrointestinal: Yes: WNL, Normal Bowel Sounds, Soft. No: Tenderness, Tenderness, Epigastrium Edema: No Labs: CBC, BMP 09/10/17 05:30 09/09/17 05:30 INR, PTT INR 2.76 (0.82-1.09) H 09/10/17 05:30 Problem List - Problems (1) Primary atypical pneumonia Code(s): J18.9 - PNEUMONIA, UNSPECIFIED ORGANISM (2) Acute on chronic systolic CHF (congestive heart failure) Code(s): I50.23 - ACUTE ON CHRONIC SYSTOLIC (CONGESTIVE) HEART FAILURE Assessment/Plan Laboratory Tests 09/05/17 09/09/17 09/09/17 06:30 05:30 05:30 WBC RBC Hct Plt Count ESR 40 H BUN 83 H Creatinine 2.7 H Cold Agglutinins Negative 09/10/17 05:30 WBC 5.6 RBC 3.86 L Hct 30.1 L Plt Count 194 D ESR BUN Creatinine Cold Agglutinins Assessment Clinically I am not convinced he has an acute infectious process. CT reviewed just as consistent with edema as opposed to PNA Fungal disease such as Aspergillus was mentioned by Dr Escalante however I do not feel radiological picture is typical for that. At this point I would stop Levoflox and observe. Obviously if these "infiltrates" seen on CT do not clear that would prompt further investigation as to the etiology which might include BAL. Note both ESR and CRP are low argues against infection Jeri GALVAN
[2017-09-10] MEDS: ALBUTEROL SO4 0.083% IH SOL 2.5 MG/3 ML VIAL.NEB. NEB SCH ×3 (08:00→20:39)
[2017-09-10] MEDS: CALCIUM ACETATE 667 MG CAPSULE (FP) PO SCH ×3 (08:27→17:06)
[2017-09-10] MEDS ORDERED: INSULIN (NOVOLOG) ASPART 100 UNITS/ML 10ML VIAL ONE (10:06)
[2017-09-10] MEDS: hydrALAZINE HCL 25 MG TABLET (FP) PO SCH ×2 (10:12→22:28)
[2017-09-10] MEDS: ASPIRIN COATED 81 MG TABLET.EC PO SCH (10:13)
[2017-09-10] MEDS: FOLIC ACID 1 MG TABLET (FP) PO SCH (10:13)
[2017-09-10] MEDS: CLOPIDOGREL BISULFATE 75 MG TABLET (FP) PO SCH (10:13)
[2017-09-10] MEDS: PANTOPRAZOLE 40 MG TABLET (FP) PO SCH ×2 (10:13→22:28)
[2017-09-10] MEDS: ISOSORBIDE DINITRATE 10 MG TABLET (FP) PO SCH ×2 (10:13→17:06)
[2017-09-10] MEDS: CARVEDILOL 12.5 MG TABLET (FP) PO SCH ×2 (10:13→22:28)
[2017-09-10] MEDS: FERROUS GLUCONATE 324 MG TAB (FP) PO SCH (10:19)
--- NOTE | 2017-09-10 11:16 | PN ---
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 Had [address] during [facility] ([facility] renal "shutdown" occurred, per , and pt had a prolonged course before discharge home. Pt has been compliant with his medications, which include Aspirin, Plavix , Coumadin, amiodarone, carvedilol, hydralazine, isordil, rosuvastatin, furosemide. Today pt has had worsening SOB. H/o CHF pt given total of Lasix 80mg by family and pt has been urinating frequently. Pt denies CP at this time. - Current Medication List Current Medications: Active Medications Albuterol Sulfate (Ventolin 0.083% Nebulizer Soln -) 1 amp NEB RTID [facility] Last Admin: 09/09/17 19:17 Dose: 1 amp Albuterol Sulfate (Ventolin 0.083% Nebulizer Soln -) 1 amp NEB Q4H PRN PRN Reason: SHORT OF BREATH/WHEEZING Last Admin: 09/08/17 00:54 Dose: 1 amp Aspirin (Ecotrin -) 81 mg PO DAILY [facility] Last Admin: 09/10/17 10:13 Dose: 81 mg Calcium Acetate (Phoslo -) 667 mg PO TIDCM [facility] Last Admin: 09/10/17 08:27 Dose: 667 mg Carvedilol (Coreg -) 12.5 mg PO BID [facility] Last Admin: 09/10/17 10:13 Dose: 12.5 mg Clopidogrel Bisulfate (Plavix -) 75 mg PO DAILY [facility] Last Admin: 09/10/17 10:13 Dose: 75 mg Ferrous Gluconate (Fergon -) 324 mg PO DAILY [facility] Last Admin: 09/10/17 10:19 Dose: 324 mg Folic Acid (Folic Acid -) 1 mg PO DAILY [facility] Last Admin: 09/10/17 10:13 Dose: 1 mg Hydralazine HCl (Apresoline -) 25 mg PO BID [facility] Last Admin: 09/10/17 10:12 Dose: 25 mg Furosemide 100 mg/ Sodium (Chloride) 50 mls @ 3.75 mls/hr IVPB TITR [facility]; 7.5 MG /HR PRN Reason: Protocol Last Admin: 09/09/17 18:44 Dose: 7.5 mg/hr, 3.75 mls/hr Insulin Aspart (Novolog Vial Sliding Scale -) 1 vial SQ TIDAC [facility] PRN Reason: Protocol Last Admin: 09/10/17 06:00 Dose: 10 units Insulin Detemir (Levemir Vial) 35 units SQ [facility] Last Admin: 09/09/17 21:14 Dose: 35 units Isosorbide Dinitrate (Isordil -) 10 mg PO BIDISORDIL [facility] Last Admin: 09/10/17 10:13 Dose: 10 mg Pantoprazole Sodium (Protonix -) 40 mg PO BID [facility] Last Admin: 09/10/17 10:13 Dose: 40 mg Rosuvastatin Calcium (Crestor -) 10 mg PO [facility] Last Admin: 09/09/17 21:14 Dose: 10 mg Tamsulosin HCl (Flomax -) 0.4 mg PO HS [facility] Last Admin: 09/09/17 21:14 Dose: 0.4 mg Tobramycin Sulfate (Tobrex Ophthalmic Solution -) 1 drop OU TID [facility] Last Admin: 09/10/17 06:00 Dose: 1 drop - Objective Vital Signs: Vital Signs Temperature 98.0 F 09/10/17 08:50 Pulse Rate 70 09/10/17 10:12 Respiratory Rate 19 09/10/17 10:12 Blood Pressure 128/60 09/10/17 10:12 O2 Sat by Pulse Oximetry (%) 97 09/10/17 08:50 Eyes: Yes: WNL, Conjunctiva Clear, EOM Intact HENT: Yes: WNL, Atraumatic, Normocephalic Neck: Yes: WNL, Supple, Trachea Midline Cardiovascular: Yes: WNL, Regular Rate and Rhythm Respiratory: Yes: WNL, Regular, CTA Bilaterally Gastrointestinal: Yes: WNL, Normal Bowel Sounds Genitourinary: Yes: WNL Musculoskeletal: Yes: WNL Extremities: Yes: WNL Edema: Yes Integumentary: Yes: WNL Neurological: Yes: WNL, Alert, Oriented ...Motor Strength: WNL Psychiatric: Yes: WNL Labs: CBC, BMP 09/10/17 05:30 09/09/17 05:30 INR, PTT INR 2.76 (0.82-1.09) H 09/10/17 05:30 Assessment/Plan - Problems (1) HTN (hypertension) Assessment/Plan: On carvedilol for systolic CHF, HTN, CAD, s/p [place]. On hydralazine + Isordil for systolic CHF, HTN. (Ongoing renal dysfunction precludes ACEI or ARB, or spinronlactone). On furosemide for systolic CHF, HTN, though renal status will have to be followed closely, as discussed with nephrology team. Code(s): I10 - ESSENTIAL (PRIMARY) HYPERTENSION (2) Status post myocardial infarction Assessment/Plan: Recent (07/2017) STEMI treated at [facility] with several coronary stents ( proximal/mid/distal) to RCA, and angioplasty of RPDA. (Hx NSTEMI 2014 treated with proximal LAD stent).. Will discontinue amiodarone (which was started at [facility] 07/2017 for "inotropic-assisted diuresis", along with milronone). Increase carvedilol to 12.5 mg bid for HR, BP, and systolic CHF. BUN/Cr (chronic renal insufficiency); electrolytes, Is and Os, daily weight. Code(s): I25.2 - OLD MYOCARDIAL INFARCTION (3) CVA (cerebral infarction) Assessment/Plan: left lacunar infarct, right encephalomalacia noted on 2016 CT. Physical rehabilitation will be ikmportant for cardiac health. Code(s): I63.9 - CEREBRAL INFARCTION, UNSPECIFIED (4) Diabetes mellitus Code(s): E11.9 - TYPE 2 DIABETES MELLITUS WITHOUT COMPLICATIONS Qualifiers: Diabetes mellitus complication status: with ophthalmic complications Diabetes mellitus complication detail: with diabetic retinopathy (5) Hx of heart artery stent Assessment/Plan: Records reviewed: Pt underwent Xience DE stents x 4 to prox, mid, and distal RCA; : DE stent to RPL; and RPDA angioplasty for STEMI treatment 07/2017. Planned for IVUS of residual pLAD 80%, D1 90% (hx PCI to mid and distal LAD 2009 , and NSTEMI 2014 s/p PCI to RPL, dRCA, adn pLCx). Contiinue ASA and clopidogrel; also on warfarin for LV thrombus. 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 Pt is now on furosemide IV drip; improving Cr. Code(s): N28.9 - DISORDER OF KIDNEY AND URETER, UNSPECIFIED (7) Acute on chronic systolic CHF (congestive heart failure) Assessment/Plan: Continue carvedilol (increased dose to 12.5 bid). Discontinue amiodarone (started at [facility] while in ICU undergoing inotrpe-assisted diuresis). Continue hydralazine + isordil for reduced afterload, decreassed mortality with systolic CHF (and pt unable to use ACEI, ARB, or spironolactone due to renal dysfunction presently). ECHO: improved LVEF compared to initially during STEMI treatment 07/2017, when it was severely reduced; LVEF is now mildly reduced on 09/05/17 ECHO. Code(s): I50.23 - ACUTE ON CHRONIC SYSTOLIC (CONGESTIVE) HEART FAILURE (8) Anxiety and depression Assessment/Plan: Pt denies, though cries several times during interview (this may also be due to residual effects of CVA). His says the crying spells have essentially started since the recent STEMI. Consider starting antidepressant medication. Code(s): F41.8 - OTHER SPECIFIED ANXIETY DISORDERS (9) LV (left ventricular) mural thrombus Assessment/Plan: On warfarin; INR therapeutic. Code(s): RMS3716 -
[2017-09-10 11:55] LABS: ANION GAP 10 (8-16); BLOOD UREA NITROGEN 75 mg/dL (7-18); CALCIUM 7.6 mg/dL (8.5-10.1); CHLORIDE 91 mmol/L (98-107); CO2 31 mmol/L (21-32); CREATININE 2.7 mg/dL (0.7-1.3); POTASSIUM 4.1 mmol/L (3.5-5.1); SODIUM 132 mmol/L (136-145)
[2017-09-10] MEDS: FUROSEMIDE INJECTION 100 MG in SODIUM CHLORIDE 40 ML IVPB SCH ×2 (12:04→14:30)
[2017-09-10 12:16] LABS: GLUCOSE,RANDOM 377 mg/dL (74-106)
--- NOTE | 2017-09-10 16:53 | PN ---
Progress Note (short form) - Note Progress Note: Renal follow up for THEE/Fluid overload Pt seen and examined at the bedside no acute complaints reports feeling about the same at the bedside making urine used BIPAP overnight Vital Signs Temperature 97.8 F 09/10/17 14:00 Pulse Rate 71 09/10/17 14:00 Respiratory Rate 20 09/10/17 14:00 Blood Pressure 126/63 09/10/17 14:00 O2 Sat by Pulse Oximetry (%) 97 09/10/17 08:50 Intake & Output 09/07/17 09/08/17 09/09/17 09/10/17 23:59 23:59 23:59 23:59 Intake Total 669 450.6 26.6 Output Total 1550 1150 1370 Balance -881 -699.4 -1343.4 Weight 72.178 kg 72.348 kg 72.802 kg NAD awake and alert RRR, NO M/R + rales soft NT/ND NO LE edema CBC, BMP 09/10/17 05:30 09/10/17 11:35 Current Medications Albuterol Sulfate (Ventolin 0.083% Nebulizer Soln -) 1 amp NEB RTID [facility] Last Admin: 09/10/17 08:00 Dose: 1 amp Albuterol Sulfate (Ventolin 0.083% Nebulizer Soln -) 1 amp NEB Q4H PRN PRN Reason: SHORT OF BREATH/WHEEZING Last Admin: 09/08/17 00:54 Dose: 1 amp Aspirin (Ecotrin -) 81 mg PO DAILY [facility] Last Admin: 09/10/17 10:13 Dose: 81 mg Calcium Acetate (Phoslo -) 667 mg PO TIDCM [facility] Last Admin: 09/10/17 12:06 Dose: 667 mg Carvedilol (Coreg -) 12.5 mg PO BID [facility] Last Admin: 09/10/17 10:13 Dose: 12.5 mg Clopidogrel Bisulfate (Plavix -) 75 mg PO DAILY [facility] Last Admin: 09/10/17 10:13 Dose: 75 mg Ferrous Gluconate (Fergon -) 324 mg PO DAILY [facility] Last Admin: 09/10/17 10:19 Dose: 324 mg Folic Acid (Folic Acid -) 1 mg PO DAILY [facility] Last Admin: 09/10/17 10:13 Dose: 1 mg Hydralazine HCl (Apresoline -) 25 mg PO BID [facility] Last Admin: 09/10/17 10:12 Dose: 25 mg Furosemide 100 mg/ Sodium (Chloride) 50 mls @ 5 mls/hr IVPB TITR [facility]; 10 MG/HR PRN Reason: Protocol Insulin Aspart (Novolog Vial Sliding Scale -) 1 vial SQ TIDAC [facility] PRN Reason: Protocol Last Admin: 09/10/17 12:02 Dose: 4 units Insulin Detemir (Levemir Vial) 35 units SQ HS [facility] Last Admin: 09/09/17 21:14 Dose: 35 units Isosorbide Dinitrate (Isordil -) 10 mg PO BIDISORDIL [facility] Last Admin: 09/10/17 10:13 Dose: 10 mg Pantoprazole Sodium (Protonix -) 40 mg PO BID [facility] Last Admin: 09/10/17 10:13 Dose: 40 mg Rosuvastatin Calcium (Crestor -) 10 mg PO HS [facility] Last Admin: 09/09/17 21:14 Dose: 10 mg Tamsulosin HCl (Flomax -) 0.4 mg PO HS [facility] Last Admin: 09/09/17 21:14 Dose: 0.4 mg Tobramycin Sulfate (Tobrex Ophthalmic Solution -) 1 drop OU TID [facility] Last Admin: 09/10/17 14:37 Dose: 1 drop ASSESSMENT AND PLAN: 77 year old gentleman with PMhx of CAD s/p recent [place] and cardiac cath, Hypertension, HLD, IDDM, CHF, BPH who presented with SOB and admitted for CHF exacerbation with Cr of 3 #Acute Renal failure secondary to SOSA with volume overload and Hyperkalemia CXR shows improving congestion, weights stable will increase Lasix to 10mg per hour trend BUN/Cr and electrolytes Cardiology follow up continue flomax Florencio Del Cid DO
[2017-09-10] MEDS ORDERED: WARFARIN NA 3 MG TABLET PO ONE (18:59)
--- NOTE | 2017-09-10 20:53 | PN ---
Progress Note, Physician History of Present Illness: Feels better with slight improvement in SOB. Hs been without nasal O2 all day. Chest Xray shows improvement in congestion. - Current Medication List Current Medications: Active Medications Albuterol Sulfate (Ventolin 0.083% Nebulizer Soln -) 1 amp NEB RTID [facility] Last Admin: 09/10/17 20:39 Dose: 1 amp Albuterol Sulfate (Ventolin 0.083% Nebulizer Soln -) 1 amp NEB Q4H PRN PRN Reason: SHORT OF BREATH/WHEEZING Last Admin: 09/08/17 00:54 Dose: 1 amp Aspirin (Ecotrin -) 81 mg PO DAILY [facility] Last Admin: 09/10/17 10:13 Dose: 81 mg Calcium Acetate (Phoslo -) 667 mg PO TIDCM [facility] Last Admin: 09/10/17 17:06 Dose: 667 mg Carvedilol (Coreg -) 12.5 mg PO BID [facility] Last Admin: 09/10/17 10:13 Dose: 12.5 mg Clopidogrel Bisulfate (Plavix -) 75 mg PO DAILY [facility] Last Admin: 09/10/17 10:13 Dose: 75 mg Ferrous Gluconate (Fergon -) 324 mg PO DAILY [facility] Last Admin: 09/10/17 10:19 Dose: 324 mg Folic Acid (Folic Acid -) 1 mg PO DAILY [facility] Last Admin: 09/10/17 10:13 Dose: 1 mg Hydralazine HCl (Apresoline -) 25 mg PO BID [facility] Last Admin: 09/10/17 10:12 Dose: 25 mg Furosemide 100 mg/ Sodium (Chloride) 50 mls @ 5 mls/hr IVPB TITR [facility]; 10 MG/HR PRN Reason: Protocol Last Admin: 09/10/17 14:30 Dose: 10 mg/hr, 5 mls/hr Insulin Aspart (Novolog Vial Sliding Scale -) 1 vial SQ TIDAC [facility] PRN Reason: Protocol Last Admin: 09/10/17 17:06 Dose: 10 units Insulin Detemir (Levemir Vial) 35 units SQ HS [facility] Last Admin: 09/09/17 21:14 Dose: 35 units Isosorbide Dinitrate (Isordil -) 10 mg PO BIDISORDIL [facility] Last Admin: 09/10/17 17:06 Dose: 10 mg Pantoprazole Sodium (Protonix -) 40 mg PO BID [facility] Last Admin: 09/10/17 10:13 Dose: 40 mg Rosuvastatin Calcium (Crestor -) 10 mg PO [facility] Last Admin: 09/09/17 21:14 Dose: 10 mg Tamsulosin HCl (Flomax -) 0.4 mg PO [facility] Last Admin: 09/09/17 21:14 Dose: 0.4 mg Tobramycin Sulfate (Tobrex Ophthalmic Solution -) 1 drop OU TID [facility] Last Admin: 09/10/17 14:37 Dose: 1 drop - Objective Vital Signs: Vital Signs Temperature 98.6 F 09/10/17 18:28 Pulse Rate 74 09/10/17 18:28 Respiratory Rate 20 09/10/17 18:28 Blood Pressure 125/59 09/10/17 18:28 O2 Sat by Pulse Oximetry (%) 97 09/10/17 08:50 Labs: CBC, BMP 09/10/17 05:30 09/10/17 11:35 INR, PTT INR 2.76 (0.82-1.09) H 09/10/17 05:30 Problem List - Problems (1) Pneumonia Code(s): J18.9 - PNEUMONIA, UNSPECIFIED ORGANISM (2) Acute on chronic systolic CHF (congestive heart failure) Code(s): I50.23 - ACUTE ON CHRONIC SYSTOLIC (CONGESTIVE) HEART FAILURE (3) Anemia Code(s): D64.9 - ANEMIA, UNSPECIFIED (4) Chronic renal disease Code(s): N18.9 - CHRONIC KIDNEY DISEASE, UNSPECIFIED (5) HTN (hypertension) Code(s): I10 - ESSENTIAL (PRIMARY) HYPERTENSION (6) LV (left ventricular) mural thrombus Code(s): [id number] - (7) Shortness of breath Code(s): R06.02 - SHORTNESS OF BREATH (8) Diabetes mellitus Code(s): E11.9 - TYPE 2 DIABETES MELLITUS WITHOUT COMPLICATIONS Qualifiers: Diabetes mellitus complication status: with ophthalmic complications Diabetes mellitus complication detail: with diabetic retinopathy
[2017-09-10] MEDS: ROSUVASTATIN CA 10 MG TABLET (FP) PO SCH (22:29)
[2017-09-10] MEDS: TAMSULOSIN HCL 0.4 MG CAP.ER.24H (FP) PO SCH (22:29)
[2017-09-10] MEDS: INSULIN DETEMIR 100 UNITS/ML MDV SQ SCH (22:30)
[2017-09-11] MEDS ORDERED: PT OWN MED DRAWER 7, Y5N ONE (06:07)
[2017-09-11] MEDS: TOBRAMYCIN 0.3% OPHTH SOLN 5 ML BOTTLE OU SCH ×3 (06:23→22:25)
[2017-09-11] MEDS: INSULIN SLIDING SCALE (NOVOLOG) 1 VIAL SQ SCH ×3 (06:23→17:12)
[2017-09-11] MEDS ORDERED: WARFARIN NA 3 MG TABLET PO ONE (06:45)
[2017-09-11] MEDS ORDERED: WARFARIN NA 2 MG TABLET (UD) PO ONE (06:45)
[2017-09-11 07:03] LABS: ANION GAP 15 (8-16); BLOOD UREA NITROGEN 66 mg/dL (7-18); CALCIUM 7.8 mg/dL (8.5-10.1); CHLORIDE 92 mmol/L (98-107); CO2 29 mmol/L (21-32); CREATININE 2.6 mg/dL (0.7-1.3); GLUCOSE,RANDOM 150 mg/dL (74-106); MAGNESIUM 2.2 mg/dL (1.8-2.4); PHOSPHOROUS 3.2 mg/dL (2.5-4.9); POTASSIUM 3.6 mmol/L (3.5-5.1); SODIUM 136 mmol/L (136-145)
[2017-09-11 07:05] LABS: BASO % 0.9 % (0-2.0); EOS % 5.9 % (0-4.5); HEMOGLOBIN 9.5 GM/dL (11.7-16.9); LYMPH % 12.2 % (8-40); MCH 25.1 pg (25.7-33.7); MCHC 32.7 g/dl (32.0-35.9); MEAN CELL VOLUME 76.5 fl (80-96); MEAN PLT VOLUME 9.4 fl (7.5-11.1); MONO % 9.5 % (3.8-10.2); NEUT % 71.5 % (42.8-82.8); PLATELET COUNT 166 K/MM3 (134-434); RBC 3.79 M/mm3 (4.00-5.60); RDW 16.6 % (11.9-15.9)
[2017-09-11 07:18] LABS: INR 2.48 (0.82-1.09)
[2017-09-11] MEDS: ALBUTEROL SO4 0.083% IH SOL 2.5 MG/3 ML VIAL.NEB. NEB SCH ×3 (07:25→20:39)
[2017-09-11] MEDS: CALCIUM ACETATE 667 MG CAPSULE (FP) PO SCH ×3 (08:19→17:12)
[2017-09-11] MEDS: CARVEDILOL 12.5 MG TABLET (FP) PO SCH ×2 (10:19→22:24)
[2017-09-11] MEDS: FERROUS GLUCONATE 324 MG TAB (FP) PO SCH (10:19)
[2017-09-11] MEDS: CLOPIDOGREL BISULFATE 75 MG TABLET (FP) PO SCH (10:19)
[2017-09-11] MEDS: PANTOPRAZOLE 40 MG TABLET (FP) PO SCH ×2 (10:20→22:24)
[2017-09-11] MEDS: FOLIC ACID 1 MG TABLET (FP) PO SCH (10:20)
[2017-09-11] MEDS: ASPIRIN COATED 81 MG TABLET.EC PO SCH (10:20)
[2017-09-11] MEDS: ISOSORBIDE DINITRATE 10 MG TABLET (FP) PO SCH ×2 (10:20→18:51)
[2017-09-11] MEDS: hydrALAZINE HCL 25 MG TABLET (FP) PO SCH ×2 (10:21→22:24)
[2017-09-11] MEDS ORDERED: INSULIN (NOVOLOG) ASPART 100 UNITS/ML 10ML VIAL ONE (12:51)
[2017-09-11] MEDS: FUROSEMIDE INJECTION 100 MG in SODIUM CHLORIDE 40 ML IVPB SCH (12:53)
--- NOTE | 2017-09-11 15:44 | PN ---
Progress Note, Physician Chief Complaint: Pt is sitting up OOB; is present. He has no complaints; feels better when using BIPaP. 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 Had [address] [facility] within the last few weeks; renal "shutdown" occurred, per , and pt had a prolonged course before discharge home. Pt has been compliant with his medications, which include Aspirin, Plavix, Coumadin, amiodarone, carvedilol, hydralazine, isordil , rosuvastatin, furosemide. Today pt has had worsening SOB. H/o systolic CHF ; pt given total of Lasix 80mg by family and pt has been urinating frequently. Pt denies CP at this time. - Current Medication List Current Medications: Active Medications Albuterol Sulfate (Ventolin 0.083% Nebulizer Soln -) 1 amp NEB RTID [facility] Last Admin: 09/11/17 13:43 Dose: 1 amp Albuterol Sulfate (Ventolin 0.083% Nebulizer Soln -) 1 amp NEB Q4H PRN PRN Reason: SHORT OF BREATH/WHEEZING Last Admin: 09/08/17 00:54 Dose: 1 amp Aspirin (Ecotrin -) 81 mg PO DAILY [facility] Last Admin: 09/11/17 10:20 Dose: 81 mg Calcium Acetate (Phoslo -) 667 mg PO TIDCM [facility] Last Admin: 09/11/17 12:53 Dose: 667 mg Carvedilol (Coreg -) 12.5 mg PO BID [facility] Last Admin: 09/11/17 10:19 Dose: 12.5 mg Clopidogrel Bisulfate (Plavix -) 75 mg PO DAILY [facility] Last Admin: 09/11/17 10:19 Dose: 75 mg Ferrous Gluconate (Fergon -) 324 mg PO DAILY [facility] Last Admin: 09/11/17 10:19 Dose: 324 mg Folic Acid (Folic Acid -) 1 mg PO DAILY [facility] Last Admin: 09/11/17 10:20 Dose: 1 mg Hydralazine HCl (Apresoline -) 25 mg PO BID [facility] Last Admin: 09/11/17 10:21 Dose: 25 mg Furosemide 100 mg/ Sodium (Chloride) 50 mls @ 5 mls/hr IVPB TITR [facility]; 10 MG/HR PRN Reason: Protocol Last Admin: 09/11/17 12:53 Dose: 10 mg/hr, 5 mls/hr Insulin Aspart (Novolog Vial Sliding Scale -) 1 vial SQ TIDAC [facility] PRN Reason: Protocol Last Admin: 09/11/17 11:53 Dose: 4 units Insulin Detemir (Levemir Vial) 35 units SQ HS [facility] Last Admin: 09/10/17 22:30 Dose: 35 units Isosorbide Dinitrate (Isordil -) 10 mg PO BIDISORDIL [facility] Last Admin: 09/11/17 10:20 Dose: 10 mg Pantoprazole Sodium (Protonix -) 40 mg PO BID [facility] Last Admin: 09/11/17 10:20 Dose: 40 mg Rosuvastatin Calcium (Crestor -) 10 mg PO HS [facility] Last Admin: 09/10/17 22:29 Dose: 10 mg Tamsulosin HCl (Flomax -) 0.4 mg PO HS [facility] Last Admin: 09/10/17 22:29 Dose: 0.4 mg Tobramycin Sulfate (Tobrex Ophthalmic Solution -) 1 drop OU TID [facility] Last Admin: 09/11/17 14:34 Dose: 1 drop - Objective Vital Signs: Vital Signs Temperature 97.4 F L 09/11/17 10:00 Pulse Rate 73 09/11/17 11:11 Respiratory Rate 18 09/11/17 10:00 Blood Pressure 128/59 09/11/17 10:00 O2 Sat by Pulse Oximetry (%) 93 L 09/11/17 11:11 Constitutional: Yes: Well Nourished, Calm Eyes: Yes: WNL HENT: Yes: WNL Neck: Yes: WNL Cardiovascular: Yes: S1, S2 Respiratory: Yes: Regular, Poor Air Entry, Rales, SOB on Exertion. No: Wheezes Gastrointestinal: Yes: Soft ...Rectal Exam: Yes: Deferred Genitourinary: No: Anuria Musculoskeletal: Yes: Muscle Weakness Extremities: Yes: WNL Edema: No Peripheral Pulses WNL: Yes Integumentary: Yes: WNL Neurological: Yes: Alert, Oriented, Weakness Psychiatric: Yes: Other (anxeity/depression) Labs: CBC, BMP 09/11/17 05:35 09/11/17 05:35 INR, PTT INR 2.48 (0.82-1.09) H 09/11/17 05:35 - ....Imaging Other: Image Reviewed (telemetry: NSR; occasional APCs; no arrhythmias) Problem List - Problems (1) HTN (hypertension) Assessment/Plan: On carvedilol for systolic CHF, HTN, CAD, s/p [place]. On hydralazine + Isordil for systolic CHF, HTN. (Ongoing renal dysfunction precludes ACEI or ARB, or spinronlactone). On furosemide for systolic CHF, HTN, though renal status will have to be followed closely, as discussed with nephrology team. To add metolazone. Code(s): I10 - ESSENTIAL (PRIMARY) HYPERTENSION (2) Status post myocardial infarction Assessment/Plan: Recent (07/2017) STEMI treated at [facility] with several coronary stents ( proximal/mid/distal) to RCA, and angioplasty of RPDA. (Hx NSTEMI 2014 treated with proximal LAD stent).. Discontinued amiodarone (which was started at [facility] 07/2017 for "inotropic-assisted diuresis", along with milronone). Increased carvedilol to 12.5 mg bid for HR, BP, and systolic CHF. BUN/Cr (chronic renal insufficiency); electrolytes, Is and Os, daily weight. Cardiac rehabilitation as outpt. Code(s): I25.2 - OLD MYOCARDIAL INFARCTION (3) CVA (cerebral infarction) Assessment/Plan: left lacunar infarct, right encephalomalacia noted on 2016 CT. Physical rehabilitation will be ikmportant for cardiac health. Code(s): I63.9 - CEREBRAL INFARCTION, UNSPECIFIED (4) Diabetes mellitus Code(s): E11.9 - TYPE 2 DIABETES MELLITUS WITHOUT COMPLICATIONS Qualifiers: Diabetes mellitus complication status: with ophthalmic complications Diabetes mellitus complication detail: with diabetic retinopathy (5) Hx of heart artery stent Assessment/Plan: Records reviewed: Pt underwent Xience DE stents x 4 to prox, mid, and distal RCA; : DE stent to RPL; and RPDA angioplasty for STEMI treatment 07/2017. Planned for IVUS of residual pLAD 80%, D1 90% (hx PCI to mid and distal LAD 2009 , and NSTEMI 2014 s/p PCI to RPL, dRCA, adn pLCx). Contiinue ASA and clopidogrel; also on warfarin for LV thrombus. Cardiac rehab as outpt. Code(s): Z95.5 - PRESENCE OF CORONARY ANGIOPLASTY IMPLANT AND GRAFT (6) Renal dysfunction Assessment/Plan: Discussed with Dr. Del Cid. Agree with starting metolazone 5 mg, in addition to IV furosemide drip. Code(s): N28.9 - DISORDER OF KIDNEY AND URETER, UNSPECIFIED (7) Acute on chronic systolic CHF (congestive heart failure) Assessment/Plan: Pt says he feels better (less short of breath); however, still with bilateral rales, L>R; BW relatively unchanged, +JVD; short of breath with mild exerion, though able to walk across the room with assistance. Agree with adding metolazone 5 mg to IV Lasix drip. Code(s): I50.23 - ACUTE ON CHRONIC SYSTOLIC (CONGESTIVE) HEART FAILURE (8) Anxiety and depression Assessment/Plan: Pt denies, though cries several times during interview (this may also be due to residual effects of CVA). His says the crying spells have essentially started since the recent STEMI. Consider starting antidepressant medication. Code(s): F41.8 - OTHER SPECIFIED ANXIETY DISORDERS (9) LV (left ventricular) mural thrombus Assessment/Plan: On warfarin; keep INR 2-3. Code(s): [id number] -
[2017-09-11] MEDS ORDERED: METOLAZONE 5 MG TABLET PO ONE (15:47)
--- NOTE | 2017-09-11 18:56 | PN ---
Progress Note (short form) - Note Progress Note: Renal follow up for THEE/Fluid overload Pt seen and examined at the bedside no acute complaints Vital Signs Temperature 98.1 F 09/11/17 14:00 Pulse Rate 70 09/11/17 14:00 Respiratory Rate 16 09/11/17 14:00 Blood Pressure 139/74 09/11/17 14:00 O2 Sat by Pulse Oximetry (%) 93 L 09/11/17 11:11 Intake & Output 09/08/17 09/09/17 09/10/17 09/11/17 23:59 23:59 23:59 23:59 Intake Total 669 450.6 296.6 455 Output Total 1550 1150 1570 250 Balance -881 -699.4 -1273.4 205 Weight 72.178 kg 72.348 kg 72.802 kg 72.631 kg NAD awake and alert RRR, NO M/R + rales soft NT/ND NO LE edema CBC, BMP 09/11/17 05:35 09/11/17 05:35 Current Medications Albuterol Sulfate (Ventolin 0.083% Nebulizer Soln -) 1 amp NEB RTID [facility] Last Admin: 09/11/17 13:43 Dose: 1 amp Albuterol Sulfate (Ventolin 0.083% Nebulizer Soln -) 1 amp NEB Q4H PRN PRN Reason: SHORT OF BREATH/WHEEZING Last Admin: 09/08/17 00:54 Dose: 1 amp Aspirin (Ecotrin -) 81 mg PO DAILY [facility] Last Admin: 09/11/17 10:20 Dose: 81 mg Calcium Acetate (Phoslo -) 667 mg PO TIDCM [facility] Last Admin: 09/11/17 17:12 Dose: 667 mg Carvedilol (Coreg -) 12.5 mg PO BID [facility] Last Admin: 09/11/17 10:19 Dose: 12.5 mg Clopidogrel Bisulfate (Plavix -) 75 mg PO DAILY [facility] Last Admin: 09/11/17 10:19 Dose: 75 mg Ferrous Gluconate (Fergon -) 324 mg PO DAILY [facility] Last Admin: 09/11/17 10:19 Dose: 324 mg Folic Acid (Folic Acid -) 1 mg PO DAILY [facility] Last Admin: 09/11/17 10:20 Dose: 1 mg Hydralazine HCl (Apresoline -) 25 mg PO BID [facility] Last Admin: 09/11/17 10:21 Dose: 25 mg Furosemide 100 mg/ Sodium (Chloride) 50 mls @ 5 mls/hr IVPB TITR [facility]; 10 MG/HR PRN Reason: Protocol Last Admin: 09/11/17 12:53 Dose: 10 mg/hr, 5 mls/hr Insulin Aspart (Novolog Vial Sliding Scale -) 1 vial SQ TIDAC [facility] PRN Reason: Protocol Last Admin: 09/11/17 17:12 Dose: 4 units Insulin Detemir (Levemir Vial) 35 units SQ HS [facility] Last Admin: 09/10/17 22:30 Dose: 35 units Isosorbide Dinitrate (Isordil -) 10 mg PO BIDISORDIL [facility] Last Admin: 09/11/17 10:20 Dose: 10 mg Pantoprazole Sodium (Protonix -) 40 mg PO BID [facility] Last Admin: 09/11/17 10:20 Dose: 40 mg Rosuvastatin Calcium (Crestor -) 10 mg PO HS [facility] Last Admin: 09/10/17 22:29 Dose: 10 mg Tamsulosin HCl (Flomax -) 0.4 mg PO HS [facility] Last Admin: 09/10/17 22:29 Dose: 0.4 mg Tobramycin Sulfate (Tobrex Ophthalmic Solution -) 1 drop OU TID [facility] Last Admin: 09/11/17 14:34 Dose: 1 drop ASSESSMENT AND PLAN: 77 year old gentleman with PMhx of CAD s/p recent [place] and cardiac cath, Hypertension, HLD, IDDM, CHF, BPH who presented with SOB and admitted for CHF exacerbation with Cr of 3 #Acute Renal failure secondary to SOSA with volume overload and Hyperkalemia Renal function stable w/o significant improvement with weight will give metolazone 5mg x 1 continue Lasix gtt at 10mg per hour Florencio Del Cid DO
[2017-09-11] MEDS: TAMSULOSIN HCL 0.4 MG CAP.ER.24H (FP) PO SCH (22:24)
[2017-09-11] MEDS: ROSUVASTATIN CA 10 MG TABLET (FP) PO SCH (22:24)
[2017-09-11] MEDS: WARFARIN NA 3 MG TABLET PO SCH (22:24)
[2017-09-11] MEDS: INSULIN DETEMIR 100 UNITS/ML MDV SQ SCH (22:25)
[2017-09-12] MEDS: INSULIN SLIDING SCALE (NOVOLOG) 1 VIAL SQ SCH ×3 (06:48→17:22)
[2017-09-12] MEDS: TOBRAMYCIN 0.3% OPHTH SOLN 5 ML BOTTLE OU SCH ×3 (06:48→21:28)
[2017-09-12] MEDS ORDERED: PT OWN MED DRAWER 7, Y5N ONE ×3 (06:54→21:20)
[2017-09-12] MEDS ORDERED: INSULIN (NOVOLOG) ASPART 100 UNITS/ML 10ML VIAL ONE ×2 (06:54→12:02)
[2017-09-12 07:15] LABS: INR 2.52 (0.82-1.09); PROTHROMBIN TIME (PATIENT) 28.5 SEC (9.98-11.88)
[2017-09-12] MEDS: ALBUTEROL SO4 0.083% IH SOL 2.5 MG/3 ML VIAL.NEB. NEB SCH ×2 (07:42→14:23)
[2017-09-12] MEDS: CLOPIDOGREL BISULFATE 75 MG TABLET (FP) PO SCH (09:00)
[2017-09-12] MEDS: FOLIC ACID 1 MG TABLET (FP) PO SCH (09:00)
[2017-09-12] MEDS: hydrALAZINE HCL 25 MG TABLET (FP) PO SCH ×2 (09:00→21:28)
[2017-09-12] MEDS: CALCIUM ACETATE 667 MG CAPSULE (FP) PO SCH ×3 (09:00→17:22)
[2017-09-12] MEDS: ISOSORBIDE DINITRATE 10 MG TABLET (FP) PO SCH ×2 (09:00→17:27)
[2017-09-12] MEDS: CARVEDILOL 12.5 MG TABLET (FP) PO SCH ×2 (09:00→21:28)
[2017-09-12] MEDS: FERROUS GLUCONATE 324 MG TAB (FP) PO SCH (09:01)
[2017-09-12] MEDS: ASPIRIN COATED 81 MG TABLET.EC PO SCH (09:01)
[2017-09-12] MEDS: PANTOPRAZOLE 40 MG TABLET (FP) PO SCH ×2 (09:01→21:28)
[2017-09-12 09:42] LABS: ANION GAP 8 (8-16); BLOOD UREA NITROGEN 70 mg/dL (7-18); CALCIUM 7.9 mg/dL (8.5-10.1); CHLORIDE 89 mmol/L (98-107); CO2 36 mmol/L (21-32); CREATININE 2.5 mg/dL (0.7-1.3); GLUCOSE,RANDOM 165 mg/dL (74-106); POTASSIUM 3.5 mmol/L (3.5-5.1); SODIUM 133 mmol/L (136-145)
[2017-09-12] MEDS: FUROSEMIDE INJECTION 100 MG in SODIUM CHLORIDE 40 ML IVPB SCH (12:28)
--- NOTE | 2017-09-12 15:52 | PN ---
Progress Note (short form) - Note Progress Note: PULMONARY CONSULTATION DICTATED 09/12/17 IMP ACUTE ON CHRONIC CHF ASHD S/PMI S/P STENTS LEFT VENTRICULAR THROMBUS CKD HTN DM HLD H/O CVA PLAN LASIX O2 PRN DAILY WTS BRONCHODILATORS PRN MONITOR LYTES ,RENAL FUNCTION BIPAP PRN IF PT DEVELOPES INCREASED RESPIRATORY DISTRESS SLEEP SCREEN DR CARCAMO Problem List - Problems (1) Acute on chronic systolic CHF (congestive heart failure) Code(s): I50.23 - ACUTE ON CHRONIC SYSTOLIC (CONGESTIVE) HEART FAILURE (2) Anemia Code(s): D64.9 - ANEMIA, UNSPECIFIED (3) Chronic renal disease Code(s): N18.9 - CHRONIC KIDNEY DISEASE, UNSPECIFIED (4) HTN (hypertension) Code(s): I10 - ESSENTIAL (PRIMARY) HYPERTENSION (5) LV (left ventricular) mural thrombus Code(s): [id number] - (6) Status post myocardial infarction Code(s): I25.2 - OLD MYOCARDIAL INFARCTION (7) CVA (cerebral infarction) Code(s): I63.9 - CEREBRAL INFARCTION, UNSPECIFIED (8) Hx of heart artery stent Code(s): Z95.5 - PRESENCE OF CORONARY ANGIOPLASTY IMPLANT AND GRAFT (9) Diabetes mellitus Code(s): E11.9 - TYPE 2 DIABETES MELLITUS WITHOUT COMPLICATIONS Qualifiers: Diabetes mellitus complication status: with ophthalmic complications Diabetes mellitus complication detail: with diabetic retinopathy
--- NOTE | 2017-09-12 16:52 | CONS ---
DATE OF CONSULTATION: 09/12/2017 REFERRING PHYSICIAN: Coleman Hess M.D. HISTORY OF PRESENT ILLNESS: The patient is a 77-year-old Bangladeshi male with past medical history of ASHD status post SC in 2017, status post recent SC approximately 3-4 weeks ago, status post cardiac catheterization with 5 stents, was complicated by acute renal failure secondary to contrast, history of CVA with full recovery, congestive heart failure, hypertension, hyperlipidemia, anxiety disorder, diabetes, is a nonsmoker, admitted to [facility] on 09/04/2017 secondary to shortness of breath, nonproductive cough. Upon admission, patient denied any fevers, chills, nausea, vomiting, diaphoresis. On admission, chest pain felt to be congestive heart failure. He was placed on IV Lasix. He was also placed on empiric antibiotic therapy ceftriaxone. Throughout the hospitalization his cough persisted. It was nonproductive with no hemoptysis. He also complains of runny eyes. He denied any recent travel. There is no history of asthma or COPD. There is no history of occupational exposures. Patient was evaluated by Dr. Wilcox for infectious disease, placed on Levaquin for possible atypical pneumonia. He had a chest x-ray performed which revealed bilateral upper lobes as well as bilateral pleural effusion most likely consistent with CHF. He was also evaluated by cardiology, see above. Patient during the hospitalization initially was placed on BiPAP with improvement in his respiratory symptoms. Apparently while he was at [facility] a few weeks ago he was also placed on intermittent BiPAP therapy secondary to shortness of breath with improvement. PAST MEDICAL HISTORY: Again includes ASHD status post SC, status post multiple stents, congestive heart failure, diabetes, chronic kidney disease, hypertension, hyperlipidemia. Left ventricular thrombus. REVIEW OF SYSTEMS: No orthopnea. Positive dyspnea. No cough. No chest pain. No palpitations. No fever. No chills. No weight loss. No night sweats. No hemoptysis. 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 No ETOH, no tobacco. CURRENT MEDICATIONS: Include Flomax, Coumadin, albuterol, Coreg, Apresoline, Crestor, Novolog, Levemir, Fergon, Lasix, Isordil, Ecotrin, Plavix, Protonix, and folic acid. PHYSICAL EXAMINATION: General: The patient is a well-developed, well-nourished male awake, alert, in no acute distress. Vital signs: He is currently afebrile. Blood pressure 120/61, respiratory rate 20, O2 saturation 97% on room air. HEENT: Head is normocephalic, atraumatic. Neck: Supple. Heart: Regular. S1, S2. Chest: Bilateral crackles 2/3 up. Abdomen: Soft. Bowel sounds positive. Extremities: No cyanosis, edema. LABORATORY: WBC is 6.0, hematocrit 9.5, hematocrit 29, platelet count 166,000, INR 2.52. Chemistry: BUN 70, creatinine 2.5. Chest x-ray reveals improving congestion bilaterally. No acute infiltrates or effusions. Echo revealed left ventricular normal size, left ventricular systolic function mildly reduced as apical akinesis, moderate posterior wall hypokinesis, inferior wall moderate hypokinesis and enlarged apical thrombus. IMPRESSION: 1. Dyspnea secondary to [id number] congestive heart failure. 2. Atherosclerotic heart disease status post myocardial infarction status post stents. 3. Pmrrb-[id number] renal failure. 4. Hypertension. 5. Hyperlipidemia. 6. Left apical left ventricular thrombus. PLAN: Continue diuretics. Supplemental O2 as needed. Daily weights. Follow up chest x-rays. Will order a sleep screen. Continue inhaled bronchodilators p.r.n. BiPAP if patient should develop increased respiratory distress. NAHUN CARCAMO M.D. [id number]
--- NOTE | 2017-09-12 16:57 | PN ---
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 Had [address] [facility] renal "shutdown" occurred, per , and pt had a prolonged course before discharge home. Pt has been compliant with his medications, which include Aspirin, Plavix , Coumadin, amiodarone, carvedilol, hydralazine, isordil, rosuvastatin, furosemide. Today pt has had worsening SOB. H/o CHF pt given total of Lasix 80mg by family and pt has been urinating frequently. Pt denies CP at this time. - Current Medication List Current Medications: Active Medications Albuterol Sulfate (Ventolin 0.083% Nebulizer Soln -) 1 amp NEB RTID [facility] Last Admin: 09/12/17 14:23 Dose: 1 amp Albuterol Sulfate (Ventolin 0.083% Nebulizer Soln -) 1 amp NEB Q4H PRN PRN Reason: SHORT OF BREATH/WHEEZING Last Admin: 09/08/17 00:54 Dose: 1 amp Aspirin (Ecotrin -) 81 mg PO DAILY [facility] Last Admin: 09/12/17 09:01 Dose: 81 mg Calcium Acetate (Phoslo -) 667 mg PO TIDCM [facility] Last Admin: 09/12/17 12:10 Dose: 667 mg Carvedilol (Coreg -) 12.5 mg PO BID [facility] Last Admin: 09/12/17 09:00 Dose: 12.5 mg Clopidogrel Bisulfate (Plavix -) 75 mg PO DAILY [facility] Last Admin: 09/12/17 09:00 Dose: 75 mg Ferrous Gluconate (Fergon -) 324 mg PO DAILY [facility] Last Admin: 09/12/17 09:01 Dose: 324 mg Folic Acid (Folic Acid -) 1 mg PO DAILY [facility] Last Admin: 09/12/17 09:00 Dose: 1 mg Hydralazine HCl (Apresoline -) 25 mg PO BID [facility] Last Admin: 09/12/17 09:00 Dose: 25 mg Furosemide 100 mg/ Sodium (Chloride) 50 mls @ 5 mls/hr IVPB TITR COREY; 10 MG/HR PRN Reason: Protocol Last Admin: 09/12/17 12:28 Dose: 10 mg/hr, 5 mls/hr Insulin Aspart (Novolog Vial Sliding Scale -) 1 vial SQ TIDAC [facility] PRN Reason: Protocol Last Admin: 09/12/17 12:09 Dose: Not Given Insulin Detemir (Levemir Vial) 35 units SQ [facility] Last Admin: 09/11/17 22:25 Dose: 35 units Isosorbide Dinitrate (Isordil -) 10 mg PO BIDISORDIL [facility] Last Admin: 09/12/17 09:00 Dose: 10 mg Pantoprazole Sodium (Protonix -) 40 mg PO BID [facility] Last Admin: 09/12/17 09:01 Dose: 40 mg Rosuvastatin Calcium (Crestor -) 10 mg PO [facility] Last Admin: 09/11/17 22:24 Dose: 10 mg Tamsulosin HCl (Flomax -) 0.4 mg PO [facility] Last Admin: 09/11/17 22:24 Dose: 0.4 mg Tobramycin Sulfate (Tobrex Ophthalmic Solution -) 1 drop OU TID [facility] Last Admin: 09/12/17 14:09 Dose: 1 drop Warfarin Sodium (Coumadin -) 3 mg PO DAILY@1800 [facility] Last Admin: 09/11/17 22:24 Dose: 3 mg - Objective Vital Signs: Vital Signs Temperature 98.3 F 09/12/17 14:00 Pulse Rate 67 09/12/17 14:00 Respiratory Rate 20 09/12/17 14:00 Blood Pressure 120/61 09/12/17 14:00 O2 Sat by Pulse Oximetry (%) 97 09/12/17 11:39 Eyes: Yes: WNL, Conjunctiva Clear, EOM Intact HENT: Yes: WNL, Atraumatic, Normocephalic Neck: Yes: WNL, Supple, Trachea Midline Cardiovascular: Yes: WNL, Regular Rate and Rhythm Respiratory: Yes: WNL, Regular, CTA Bilaterally Gastrointestinal: Yes: WNL, Normal Bowel Sounds Genitourinary: Yes: WNL Musculoskeletal: Yes: WNL Extremities: Yes: WNL Edema: No Integumentary: Yes: WNL Neurological: Yes: WNL, Alert, Oriented ...Motor Strength: WNL Psychiatric: Yes: WNL Labs: CBC, BMP 09/11/17 05:35 09/12/17 09:27 INR, PTT INR 2.52 (0.82-1.09) H 09/12/17 06:15 Assessment/Plan - Problems (1) HTN (hypertension) Assessment/Plan: On carvedilol for systolic CHF, HTN, CAD, s/p OK. On hydralazine + Isordil for systolic CHF, HTN. (Ongoing renal dysfunction precludes ACEI or ARB, or spinronlactone). On furosemide for systolic CHF, HTN, though renal status will have to be followed closely, as discussed with nephrology team. To add metolazone. Code(s): I10 - ESSENTIAL (PRIMARY) HYPERTENSION (2) Status post myocardial infarction Assessment/Plan: Recent (07/2017) STEMI treated at [facility] with several coronary stents ( proximal/mid/distal) to RCA, and angioplasty of RPDA. (Hx NSTEMI 2014 treated with proximal LAD stent).. Discontinued amiodarone (which was started at [facility] 07/2017 for "inotropic-assisted diuresis", along with milronone). Increased carvedilol to 12.5 mg bid for HR, BP, and systolic CHF. BUN/Cr (chronic renal insufficiency); electrolytes, Is and Os, daily weight. Cardiac rehabilitation as outpt. Code(s): I25.2 - OLD MYOCARDIAL INFARCTION (3) CVA (cerebral infarction) Assessment/Plan: left lacunar infarct, right encephalomalacia noted on 2015 CT. Physical rehabilitation will be ikmportant for cardiac health. Code(s): I63.9 - CEREBRAL INFARCTION, UNSPECIFIED (4) Diabetes mellitus Code(s): E11.9 - TYPE 2 DIABETES MELLITUS WITHOUT COMPLICATIONS Qualifiers: Diabetes mellitus complication status: with ophthalmic complications Diabetes mellitus complication detail: with diabetic retinopathy (5) Hx of heart artery stent Assessment/Plan: Records reviewed: Pt underwent Xience DE stents x 4 to prox, mid, and distal RCA; : DE stent to RPL; and RPDA angioplasty for STEMI treatment 07/2017. Planned for IVUS of residual pLAD 80%, D1 90% (hx PCI to mid and distal LAD 2009 , and NSTEMI 2014 s/p PCI to RPL, dRCA, adn pLCx). Contiinue ASA and clopidogrel; also on warfarin for LV thrombus. Cardiac rehab as outpt. Code(s): Z95.5 - PRESENCE OF CORONARY ANGIOPLASTY IMPLANT AND GRAFT (6) Renal dysfunction Assessment/Plan: Discussed with Dr. Del Cid. Agree with starting metolazone 5 mg, in addition to IV furosemide drip. Code(s): N28.9 - DISORDER OF KIDNEY AND URETER, UNSPECIFIED (7) Acute on chronic systolic CHF (congestive heart failure) Assessment/Plan: Pt says he feels better (less short of breath); however, still with bilateral rales, L>R; BW relatively unchanged, +JVD; short of breath with mild exerion, though able to walk across the room with assistance. Agree with adding metolazone 5 mg to IV Lasix drip. Code(s): I50.23 - ACUTE ON CHRONIC SYSTOLIC (CONGESTIVE) HEART FAILURE (8) Anxiety and depression Assessment/Plan: Pt denies, though cries several times during interview (this may also be due to residual effects of CVA). His says the crying spells have essentially started since the recent STEMI. Consider starting antidepressant medication. Code(s): F41.8 - OTHER SPECIFIED ANXIETY DISORDERS (9) LV (left ventricular) mural thrombus Assessment/Plan: On warfarin; keep INR 2-3. Code(s): [id number] - Episode of cp today ekg unchanged cp free now will cont to observe cont medical rx.
[2017-09-12] MEDS: WARFARIN NA 3 MG TABLET PO SCH (17:27)
--- NOTE | 2017-09-12 18:03 | PN ---
Progress Note (short form) - Note Progress Note: Renal follow up for THEE/Fluid overload Pt seen and examined at the bedside reports feeling no different making urine Vital Signs Temperature 98.3 F 09/12/17 14:00 Pulse Rate 67 09/12/17 14:00 Respiratory Rate 20 09/12/17 14:00 Blood Pressure 120/61 09/12/17 14:00 O2 Sat by Pulse Oximetry (%) 98 09/12/17 17:38 Intake & Output 09/09/17 09/10/17 09/11/17 09/12/17 23:59 23:59 23:59 23:59 Intake Total 450.6 296.6 1105 260 Output Total 1150 1570 2350 1400 Balance -699.4 -1273.4 -1245 -1140 Weight 72.348 kg 72.802 kg 72.631 kg 73.301 kg NAD awake and alert RRR, NO M/R + rales soft NT/ND NO LE edema CBC, BMP 09/11/17 05:35 09/12/17 09:27 Current Medications Albuterol Sulfate (Ventolin 0.083% Nebulizer Soln -) 1 amp NEB RTID [facility] Last Admin: 09/12/17 14:23 Dose: 1 amp Albuterol Sulfate (Ventolin 0.083% Nebulizer Soln -) 1 amp NEB Q4H PRN PRN Reason: SHORT OF BREATH/WHEEZING Last Admin: 09/08/17 00:54 Dose: 1 amp Aspirin (Ecotrin -) 81 mg PO DAILY [facility] Last Admin: 09/12/17 09:01 Dose: 81 mg Calcium Acetate (Phoslo -) 667 mg PO TIDCM [facility] Last Admin: 09/12/17 17:22 Dose: 667 mg Carvedilol (Coreg -) 12.5 mg PO BID [facility] Last Admin: 09/12/17 09:00 Dose: 12.5 mg Clopidogrel Bisulfate (Plavix -) 75 mg PO DAILY [facility] Last Admin: 09/12/17 09:00 Dose: 75 mg Ferrous Gluconate (Fergon -) 324 mg PO DAILY [facility] Last Admin: 09/12/17 09:01 Dose: 324 mg Folic Acid (Folic Acid -) 1 mg PO DAILY [facility] Last Admin: 09/12/17 09:00 Dose: 1 mg Hydralazine HCl (Apresoline -) 25 mg PO BID [facility] Last Admin: 09/12/17 09:00 Dose: 25 mg Furosemide 100 mg/ Sodium (Chloride) 50 mls @ 5 mls/hr IVPB TITR COREY; 10 MG/HR PRN Reason: Protocol Last Admin: 09/12/17 12:28 Dose: 10 mg/hr, 5 mls/hr Insulin Aspart (Novolog Vial Sliding Scale -) 1 vial SQ TIDAC [facility] PRN Reason: Protocol Last Admin: 09/12/17 17:22 Dose: 4 units Insulin Detemir (Levemir Vial) 35 units SQ HS [facility] Last Admin: 09/11/17 22:25 Dose: 35 units Isosorbide Dinitrate (Isordil -) 10 mg PO BIDISORDIL [facility] Last Admin: 09/12/17 17:27 Dose: 10 mg Pantoprazole Sodium (Protonix -) 40 mg PO BID [facility] Last Admin: 09/12/17 09:01 Dose: 40 mg Rosuvastatin Calcium (Crestor -) 10 mg PO HS [facility] Last Admin: 09/11/17 22:24 Dose: 10 mg Tamsulosin HCl (Flomax -) 0.4 mg PO HS [facility] Last Admin: 09/11/17 22:24 Dose: 0.4 mg Tobramycin Sulfate (Tobrex Ophthalmic Solution -) 1 drop OU TID [facility] Last Admin: 09/12/17 14:09 Dose: 1 drop Warfarin Sodium (Coumadin -) 3 mg PO DAILY@1800 [facility] Last Admin: 09/12/17 17:27 Dose: 3 mg ASSESSMENT AND PLAN: 77 year old gentleman with PMhx of CAD s/p recent PR and cardiac cath, Hypertension, HLD, IDDM, CHF, BPH who presented with SOB and admitted for CHF exacerbation with Cr of 3 #Acute Renal failure secondary to SOSA with volume overload and Hyperkalemia Cr improving, BUN uptrending could be indicative of intravascular volume depletion will d/c Lasix gtt start Lasix 80mg Daily starting in AM Trend daily weights, BUN/Cr and electrolytes Florencio Del Cid DO
--- NOTE | 2017-09-12 19:47 | PN ---
Progress Note, Physician History of Present Illness: Continues to have SOB off and on. Was seen by to assess need for Bipap at night as he definitely does better with it most likely due to iumproved oxygenation. May require O2 monitoring at night to determine need for Bipap - Current Medication List Current Medications: Active Medications Albuterol Sulfate (Ventolin 0.083% Nebulizer Soln -) 1 amp NEB RTID [facility] Last Admin: 09/12/17 14:23 Dose: 1 amp Albuterol Sulfate (Ventolin 0.083% Nebulizer Soln -) 1 amp NEB Q4H PRN PRN Reason: SHORT OF BREATH/WHEEZING Last Admin: 09/08/17 00:54 Dose: 1 amp Aspirin (Ecotrin -) 81 mg PO DAILY [facility] Last Admin: 09/12/17 09:01 Dose: 81 mg Calcium Acetate (Phoslo -) 667 mg PO TIDCM [facility] Last Admin: 09/12/17 17:22 Dose: 667 mg Carvedilol (Coreg -) 12.5 mg PO BID [facility] Last Admin: 09/12/17 09:00 Dose: 12.5 mg Clopidogrel Bisulfate (Plavix -) 75 mg PO DAILY [facility] Last Admin: 09/12/17 09:00 Dose: 75 mg Ferrous Gluconate (Fergon -) 324 mg PO DAILY [facility] Last Admin: 09/12/17 09:01 Dose: 324 mg Folic Acid (Folic Acid -) 1 mg PO DAILY [facility] Last Admin: 09/12/17 09:00 Dose: 1 mg Furosemide (Lasix -) 80 mg PO DAILY [facility] Hydralazine HCl (Apresoline -) 25 mg PO BID [facility] Last Admin: 09/12/17 09:00 Dose: 25 mg Insulin Aspart (Novolog Vial Sliding Scale -) 1 vial SQ TIDAC [facility] PRN Reason: Protocol Last Admin: 09/12/17 17:22 Dose: 4 units Insulin Detemir (Levemir Vial) 35 units SQ HS [facility] Last Admin: 09/11/17 22:25 Dose: 35 units Isosorbide Dinitrate (Isordil -) 10 mg PO BIDISORDIL [facility] Last Admin: 09/12/17 17:27 Dose: 10 mg Pantoprazole Sodium (Protonix -) 40 mg PO BID [facility] Last Admin: 09/12/17 09:01 Dose: 40 mg Rosuvastatin Calcium (Crestor -) 10 mg PO [facility] Last Admin: 09/11/17 22:24 Dose: 10 mg Tamsulosin HCl (Flomax -) 0.4 mg PO [facility] Last Admin: 09/11/17 22:24 Dose: 0.4 mg Tobramycin Sulfate (Tobrex Ophthalmic Solution -) 1 drop OU TID [facility] Last Admin: 09/12/17 14:09 Dose: 1 drop Warfarin Sodium (Coumadin -) 3 mg PO DAILY@1800 [facility] Last Admin: 09/12/17 17:27 Dose: 3 mg - Objective Vital Signs: Vital Signs Temperature 98.3 F 09/12/17 14:00 Pulse Rate 67 09/12/17 14:00 Respiratory Rate 20 09/12/17 14:00 Blood Pressure 120/61 09/12/17 14:00 O2 Sat by Pulse Oximetry (%) 98 09/12/17 17:38 Labs: CBC, BMP 09/11/17 05:35 09/12/17 09:27 INR, PTT INR 2.52 (0.82-1.09) H 09/12/17 06:15 Problem List - Problems (1) Pneumonia Code(s): J18.9 - PNEUMONIA, UNSPECIFIED ORGANISM (2) Acute on chronic systolic CHF (congestive heart failure) Code(s): I50.23 - ACUTE ON CHRONIC SYSTOLIC (CONGESTIVE) HEART FAILURE (3) Anemia Code(s): D64.9 - ANEMIA, UNSPECIFIED (4) Chronic renal disease Code(s): N18.9 - CHRONIC KIDNEY DISEASE, UNSPECIFIED (5) HTN (hypertension) Code(s): I10 - ESSENTIAL (PRIMARY) HYPERTENSION (6) LV (left ventricular) mural thrombus Code(s): [id number] - (7) Shortness of breath Code(s): R06.02 - SHORTNESS OF BREATH (8) Diabetes mellitus Code(s): E11.9 - TYPE 2 DIABETES MELLITUS WITHOUT COMPLICATIONS Qualifiers: Diabetes mellitus complication status: with ophthalmic complications Diabetes mellitus complication detail: with diabetic retinopathy
[2017-09-12] MEDS: ALBUTEROL SO4 0.083% IH SOL 2.5 MG/3 ML VIAL.NEB. NEB PRN (20:35)
[2017-09-12] MEDS: TAMSULOSIN HCL 0.4 MG CAP.ER.24H (FP) PO SCH (21:28)
[2017-09-12] MEDS: INSULIN DETEMIR 100 UNITS/ML MDV SQ SCH (21:28)
[2017-09-12] MEDS: ROSUVASTATIN CA 10 MG TABLET (FP) PO SCH (21:32)
[2017-09-13] MEDS ORDERED: PT OWN MED DRAWER 7, Y5N ONE ×2 (06:16→10:19)
[2017-09-13] MEDS: TOBRAMYCIN 0.3% OPHTH SOLN 5 ML BOTTLE OU SCH ×3 (06:34→22:07)
[2017-09-13] MEDS: INSULIN SLIDING SCALE (NOVOLOG) 1 VIAL SQ SCH ×3 (06:37→17:16)
[2017-09-13 08:26] LABS: CHLORIDE 87 mmol/L (98-107); POTASSIUM 3.6 mmol/L (3.5-5.1); SODIUM 130 mmol/L (136-145)
[2017-09-13] MEDS: CALCIUM ACETATE 667 MG CAPSULE (FP) PO SCH ×3 (08:34→17:16)
[2017-09-13 08:36] LABS: ANION GAP 9 (8-16); BLOOD UREA NITROGEN 79 mg/dL (7-18); CALCIUM 7.9 mg/dL (8.5-10.1); CO2 34 mmol/L (21-32); CREATININE 2.9 mg/dL (0.7-1.3); GLUCOSE,RANDOM 146 mg/dL (74-106); MAGNESIUM 2.4 mg/dL (1.8-2.4); PHOSPHOROUS 4.1 mg/dL (2.5-4.9)
[2017-09-13] MEDS: FERROUS GLUCONATE 324 MG TAB (FP) PO SCH (10:23)
[2017-09-13] MEDS: ISOSORBIDE DINITRATE 10 MG TABLET (FP) PO SCH ×2 (10:23→17:16)
[2017-09-13] MEDS: FUROSEMIDE 40 MG TABLET (FP) PO SCH (10:23)
[2017-09-13] MEDS: CLOPIDOGREL BISULFATE 75 MG TABLET (FP) PO SCH (10:23)
[2017-09-13] MEDS: CARVEDILOL 12.5 MG TABLET (FP) PO SCH ×2 (10:23→22:07)
[2017-09-13] MEDS: PANTOPRAZOLE 40 MG TABLET (FP) PO SCH ×2 (10:24→22:06)
[2017-09-13] MEDS: FOLIC ACID 1 MG TABLET (FP) PO SCH (10:24)
[2017-09-13] MEDS: hydrALAZINE HCL 25 MG TABLET (FP) PO SCH ×2 (10:24→22:06)
[2017-09-13] MEDS: ASPIRIN COATED 81 MG TABLET.EC PO SCH (10:24)
--- NOTE | 2017-09-13 11:06 | PN ---
Progress Note, Physician Chief Complaint: Pt alert; able to walk slowly across room without assistance; not dyspneic, tachypneic, or tachycardic. 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 Had [address] during catheterization for STEMI ([facility]) within the last few weeks; renal "shutdown" occurred, per , and pt had a prolonged course before discharge home. Pt has been compliant with his medications, which include Aspirin, Plavix, Coumadin, amiodarone, carvedilol, hydralazine, isordil , rosuvastatin, furosemide. Today pt has had worsening SOB. H/o systolic CHF ; pt given total of Lasix 80mg by family and pt has been urinating frequently. Pt denies CP at this time. - Current Medication List Current Medications: Active Medications Aspirin (Ecotrin -) 81 mg PO DAILY [facility] Last Admin: 09/13/17 10:24 Dose: 81 mg Calcium Acetate (Phoslo -) 667 mg PO TIDCM [facility] Last Admin: 09/13/17 08:34 Dose: 667 mg Carvedilol (Coreg -) 12.5 mg PO BID [facility] Last Admin: 09/13/17 10:23 Dose: 12.5 mg Clopidogrel Bisulfate (Plavix -) 75 mg PO DAILY [facility] Last Admin: 09/13/17 10:23 Dose: 75 mg Ferrous Gluconate (Fergon -) 324 mg PO DAILY [facility] Last Admin: 09/13/17 10:23 Dose: 324 mg Folic Acid (Folic Acid -) 1 mg PO DAILY [facility] Last Admin: 09/13/17 10:24 Dose: 1 mg Furosemide (Lasix -) 80 mg PO DAILY [facility] Last Admin: 09/13/17 10:23 Dose: 80 mg Hydralazine HCl (Apresoline -) 25 mg PO BID [facility] Last Admin: 09/13/17 10:24 Dose: 25 mg Insulin Aspart (Novolog Vial Sliding Scale -) 1 vial SQ TIDAC [facility] PRN Reason: Protocol Last Admin: 09/13/17 06:37 Dose: 2 units Insulin Detemir (Levemir Vial) 35 units SQ [facility] Last Admin: 09/12/17 21:28 Dose: 35 units Isosorbide Dinitrate (Isordil -) 10 mg PO BIDISORDIL [facility] Last Admin: 09/13/17 10:23 Dose: 10 mg Pantoprazole Sodium (Protonix -) 40 mg PO BID [facility] Last Admin: 09/13/17 10:24 Dose: 40 mg Rosuvastatin Calcium (Crestor -) 10 mg PO HS [facility] Last Admin: 09/12/17 21:32 Dose: 10 mg Tamsulosin HCl (Flomax -) 0.4 mg PO HS [facility] Last Admin: 09/12/17 21:28 Dose: 0.4 mg Tobramycin Sulfate (Tobrex Ophthalmic Solution -) 1 drop OU TID [facility] Last Admin: 09/13/17 06:34 Dose: 1 drop Warfarin Sodium (Coumadin -) 3 mg PO DAILY@1800 [facility] Last Admin: 09/12/17 17:27 Dose: 3 mg - Objective Vital Signs: Vital Signs Temperature 98.1 F 09/13/17 10:22 Pulse Rate 71 09/13/17 10:22 Respiratory Rate 19 09/13/17 10:22 Blood Pressure 112/69 09/13/17 10:22 O2 Sat by Pulse Oximetry (%) 99 09/12/17 21:00 Constitutional: Yes: Calm Eyes: Yes: WNL HENT: Yes: WNL Neck: Yes: WNL Cardiovascular: Yes: Regular Rate and Rhythm Respiratory: Yes: Regular, Rales (mild; chronic) Gastrointestinal: Yes: Soft ...Rectal Exam: Yes: Deferred Genitourinary: No: Anuria Musculoskeletal: Yes: Muscle Weakness Extremities: Yes: Cool Edema: No Peripheral Pulses WNL: Yes Integumentary: Yes: WNL Neurological: Yes: Alert, Oriented, Weakness Psychiatric: Yes: Other (anxiety) Labs: CBC, BMP 09/11/17 05:35 09/13/17 06:00 INR, PTT INR 2.52 (0.82-1.09) H 09/12/17 06:15 - ....Imaging Other: Image Reviewed (telemetry: NSR) Problem List - Problems (1) HTN (hypertension) Assessment/Plan: On carvedilol for systolic CHF, HTN, CAD, s/p DE. On hydralazine + Isordil for systolic CHF, HTN. (Ongoing renal dysfunction precludes ACEI or ARB, or spinronlactone). On furosemide (changed to IVP, not drip); metolazone prn. Code(s): I10 - ESSENTIAL (PRIMARY) HYPERTENSION (2) Status post myocardial infarction Assessment/Plan: Recent (07/2017) STEMI treated at [facility] with several coronary stents ( proximal/mid/distal) to RCA, and angioplasty of RPDA. (Hx NSTEMI 2014 treated with proximal LAD stent).. Discontinued amiodarone (which was started at [facility] 07/2017 for "inotropic-assisted diuresis", along with milronone). Increased carvedilol to 12.5 mg bid for HR, BP, and systolic CHF. BUN/Cr (chronic renal insufficiency); electrolytes, Is and Os, daily weight. Cardiac rehabilitation as outpt. Froma a cardiac perspective, py may be followed as outpatient. Code(s): I25.2 - OLD MYOCARDIAL INFARCTION (3) CVA (cerebral infarction) Assessment/Plan: left lacunar infarct, right encephalomalacia noted on 2015 CT. Physical rehabilitation will be ikmportant for cardiac health. Code(s): I63.9 - CEREBRAL INFARCTION, UNSPECIFIED (4) Diabetes mellitus Code(s): E11.9 - TYPE 2 DIABETES MELLITUS WITHOUT COMPLICATIONS Qualifiers: Diabetes mellitus complication status: with ophthalmic complications Diabetes mellitus complication detail: with diabetic retinopathy (5) Hx of heart artery stent Assessment/Plan: Records reviewed: Pt underwent Xience DE stents x 4 to prox, mid, and distal RCA; : DE stent to RPL; and RPDA angioplasty for STEMI treatment 07/2017. Planned for IVUS of residual pLAD 80%, D1 90% (hx PCI to mid and distal LAD 2009 , and NSTEMI 2014 s/p PCI to RPL, dRCA, adn pLCx). Contiinue ASA and clopidogrel; also on warfarin for LV thrombus. Cardiac rehab as outpt. Code(s): Z95.5 - PRESENCE OF CORONARY ANGIOPLASTY IMPLANT AND GRAFT (6) Renal dysfunction Assessment/Plan: Discussed with Dr. Del Cid. Agree with starting metolazone 5 mg prn, in addition to IV furosemide (drip stopped; now on IVP). Code(s): N28.9 - DISORDER OF KIDNEY AND URETER, UNSPECIFIED (7) Acute on chronic systolic CHF (congestive heart failure) Assessment/Plan: Pt's breathing has improrved. Chronic L>R rales. CXWR: no acute pathology. able to walk across the room with assistance. Changed to IV furosemide; continue Coreg, hydralazine+ Imdur; Metolazone prn. Code(s): I50.23 - ACUTE ON CHRONIC SYSTOLIC (CONGESTIVE) HEART FAILURE (8) Anxiety and depression Code(s): F41.8 - OTHER SPECIFIED ANXIETY DISORDERS (9) LV (left ventricular) mural thrombus Assessment/Plan: On warfarin; keep INR 2-3. Code(s): [id number] -
--- NOTE | 2017-09-13 12:24 | PN ---
Progress Note (short form) - Note Progress Note: Feels much beter on NIPPV use at night. Unsure if he has nocturnal O2 desaturation as he has required supplemental O2. Intake & Output 09/10/17 09/11/17 09/12/17 09/13/17 23:59 23:59 23:59 23:59 Intake Total 296.6 1105 790 Output Total 1570 2350 2200 200 Balance -1273.4 -1245 -1410 -200 Weight 160 lb 8 oz 160 lb 2 oz 161 lb 9.6 oz Last Vital Signs Temp Pulse Resp BP Pulse Ox 98.1 F 71 19 112/69 99 09/13/17 10:22 09/13/17 10:22 09/13/17 10:22 09/13/17 10:22 09/12/17 21:00 Active Medications Aspirin (Ecotrin -) 81 mg PO DAILY [facility] Last Admin: 09/13/17 10:24 Dose: 81 mg Calcium Acetate (Phoslo -) 667 mg PO TIDCM [facility] Last Admin: 09/13/17 12:07 Dose: 667 mg Carvedilol (Coreg -) 12.5 mg PO BID [facility] Last Admin: 09/13/17 10:23 Dose: 12.5 mg Clopidogrel Bisulfate (Plavix -) 75 mg PO DAILY [facility] Last Admin: 09/13/17 10:23 Dose: 75 mg Ferrous Gluconate (Fergon -) 324 mg PO DAILY [facility] Last Admin: 09/13/17 10:23 Dose: 324 mg Folic Acid (Folic Acid -) 1 mg PO DAILY [facility] Last Admin: 09/13/17 10:24 Dose: 1 mg Furosemide (Lasix -) 80 mg PO DAILY [facility] Last Admin: 09/13/17 10:23 Dose: 80 mg Hydralazine HCl (Apresoline -) 25 mg PO BID [facility] Last Admin: 09/13/17 10:24 Dose: 25 mg Insulin Aspart (Novolog Vial Sliding Scale -) 1 vial SQ TIDAC [facility] PRN Reason: Protocol Last Admin: 09/13/17 12:00 Dose: 4 units Insulin Detemir (Levemir Vial) 35 units SQ HS [facility] Last Admin: 09/12/17 21:28 Dose: 35 units Isosorbide Dinitrate (Isordil -) 10 mg PO BIDISORDIL [facility] Last Admin: 09/13/17 10:23 Dose: 10 mg Pantoprazole Sodium (Protonix -) 40 mg PO BID [facility] Last Admin: 09/13/17 10:24 Dose: 40 mg Rosuvastatin Calcium (Crestor -) 10 mg PO HS [facility] Last Admin: 09/12/17 21:32 Dose: 10 mg Tamsulosin HCl (Flomax -) 0.4 mg PO [facility] Last Admin: 09/12/17 21:28 Dose: 0.4 mg Tobramycin Sulfate (Tobrex Ophthalmic Solution -) 1 drop OU TID [facility] Last Admin: 09/13/17 06:34 Dose: 1 drop Warfarin Sodium (Coumadin -) 3 mg PO DAILY@1800 [facility] Last Admin: 09/12/17 17:27 Dose: 3 mg Constitutional: Yes: NAD Eyes: Yes: WNL HENT: Yes: WNL Neck: Yes: WNL Cardiovascular: Yes: Regular Rate and Rhythm Respiratory: Yes: minimal basilar Rales Gastrointestinal: Yes: Soft ...Rectal Exam: Yes: Deferred Genitourinary: No: Anuria Musculoskeletal: Yes: Muscle Weakness Extremities: Yes: Cool Edema: No Peripheral Pulses WNL: Yes Integumentary: Yes: WNL Neurological: Yes: Alert, Oriented, Weakness Psychiatric: Yes: calm Labs: Laboratory Results - last 24 hr 09/12/17 09/12/17 09/12/17 12:07 15:10 16:23 Sodium Potassium Chloride Carbon Dioxide Anion Gap BUN Creatinine POC Glucometer 96 248 Random Glucose Calcium Phosphorus Magnesium Creatine Kinase 56 Troponin I 0.03 09/12/17 09/13/17 09/13/17 21:27 05:31 06:00 Sodium 130 L Potassium 3.6 Chloride 87 L Carbon Dioxide 34 H Anion Gap 9 BUN 79 H Creatinine 2.9 H POC Glucometer 251 193 Random Glucose 146 H Calcium 7.9 L Phosphorus 4.1 D Magnesium 2.4 Creatine Kinase Troponin I Problem List - Problems (1) Acute on chronic systolic CHF (congestive heart failure) Code(s): I50.23 - ACUTE ON CHRONIC SYSTOLIC (CONGESTIVE) HEART FAILURE (2) Anemia Code(s): D64.9 - ANEMIA, UNSPECIFIED (3) Chronic renal disease Code(s): N18.9 - CHRONIC KIDNEY DISEASE, UNSPECIFIED (4) HTN (hypertension) Code(s): I10 - ESSENTIAL (PRIMARY) HYPERTENSION (5) LV (left ventricular) mural thrombus Code(s): [id number] - (6) Status post myocardial infarction Code(s): I25.2 - OLD MYOCARDIAL INFARCTION (7) CVA (cerebral infarction) Code(s): I63.9 - CEREBRAL INFARCTION, UNSPECIFIED (8) Hx of heart artery stent Code(s): Z95.5 - PRESENCE OF CORONARY ANGIOPLASTY IMPLANT AND GRAFT (9) Diabetes mellitus Code(s): E11.9 - TYPE 2 DIABETES MELLITUS WITHOUT COMPLICATIONS Qualifiers: Diabetes mellitus complication status: with ophthalmic complications Diabetes mellitus complication detail: with diabetic retinopathy IMP ACUTE ON CHRONIC CHF ASHD S/PMI S/P STENTS LEFT VENTRICULAR THROMBUS CKD HTN DM HLD H/O CVA SEVERE OSAS ON PORTABLE SCREEN: RDI 31.6 PLAN LASIX O2 PRN DAILY WTS BRONCHODILATORS PRN MONITOR LYTES ,RENAL FUNCTION NIPPV PRN I AM CONCERNED ABOUT NOCTURNAL O2 DESATURATION GIVEN THE NEW FINDING OF SEVERE OSAS. GIVEN HIS SIGNIFICANT CARDIAC HISTORY AND RECURRENT HOSPITALIZATIONS FOR CHF, I WILL RECOMMEND TO MONITOR OVERNIGHT OFF O2 TO ASCERTAIN WHETHER HE WILL REQUIRE NOCTURNAL O2 THERAPY. DR SANTO
--- NOTE | 2017-09-13 12:42 | PN ---
Progress Note, Physician History of Present Illness: Continues to have SOB. Denies chest pain, palpitations. Continuous monitoring showed sleep apnea last night but had nasal O2 ongoing. Discussed at [facility] with who advises to continue monitoring without nasal O2 to determine drop of O2 monitoring during sleep apnea. - Current Medication List Current Medications: Active Medications Aspirin (Ecotrin -) 81 mg PO DAILY [facility] Last Admin: 09/13/17 10:24 Dose: 81 mg Calcium Acetate (Phoslo -) 667 mg PO TIDCM [facility] Last Admin: 09/13/17 12:07 Dose: 667 mg Carvedilol (Coreg -) 12.5 mg PO BID [facility] Last Admin: 09/13/17 10:23 Dose: 12.5 mg Clopidogrel Bisulfate (Plavix -) 75 mg PO DAILY [facility] Last Admin: 09/13/17 10:23 Dose: 75 mg Ferrous Gluconate (Fergon -) 324 mg PO DAILY [facility] Last Admin: 09/13/17 10:23 Dose: 324 mg Folic Acid (Folic Acid -) 1 mg PO DAILY [facility] Last Admin: 09/13/17 10:24 Dose: 1 mg Furosemide (Lasix -) 80 mg PO DAILY [facility] Last Admin: 09/13/17 10:23 Dose: 80 mg Hydralazine HCl (Apresoline -) 25 mg PO BID [facility] Last Admin: 09/13/17 10:24 Dose: 25 mg Insulin Aspart (Novolog Vial Sliding Scale -) 1 vial SQ TIDAC [facility] PRN Reason: Protocol Last Admin: 09/13/17 12:00 Dose: 4 units Insulin Detemir (Levemir Vial) 35 units SQ [facility] Last Admin: 09/12/17 21:28 Dose: 35 units Isosorbide Dinitrate (Isordil -) 10 mg PO BIDISORDIL [facility] Last Admin: 09/13/17 10:23 Dose: 10 mg Pantoprazole Sodium (Protonix -) 40 mg PO BID [facility] Last Admin: 09/13/17 10:24 Dose: 40 mg Rosuvastatin Calcium (Crestor -) 10 mg PO HS [facility] Last Admin: 09/12/17 21:32 Dose: 10 mg Tamsulosin HCl (Flomax -) 0.4 mg PO HS [facility] Last Admin: 09/12/17 21:28 Dose: 0.4 mg Tobramycin Sulfate (Tobrex Ophthalmic Solution -) 1 drop OU TID [facility] Last Admin: 09/13/17 06:34 Dose: 1 drop Warfarin Sodium (Coumadin -) 3 mg PO DAILY@1800 [facility] Last Admin: 09/12/17 17:27 Dose: 3 mg - Objective Vital Signs: Vital Signs Temperature 98.1 F 09/13/17 10:22 Pulse Rate 71 09/13/17 10:22 Respiratory Rate 19 09/13/17 10:22 Blood Pressure 112/69 09/13/17 10:22 O2 Sat by Pulse Oximetry (%) 99 09/12/17 21:00 Constitutional: Yes: Well Nourished, Mild Distress Eyes: Yes: WNL HENT: Yes: WNL Neck: Yes: Supple Cardiovascular: Yes: Regular Rate and Rhythm, S2 Respiratory: Yes: Regular, Rales Gastrointestinal: Yes: Normal Bowel Sounds, Soft Genitourinary: Yes: WNL Musculoskeletal: Yes: WNL Extremities: Yes: WNL Edema: No Neurological: Yes: Alert, Oriented, Cran Nerves II-XII Intact ...Motor Strength: WNL Psychiatric: Yes: Alert, Oriented Labs: CBC, BMP 09/11/17 05:35 09/13/17 06:00 INR, PTT INR 2.52 (0.82-1.09) H 09/12/17 06:15 Problem List - Problems (1) Acute on chronic systolic CHF (congestive heart failure) Assessment/Plan: Continues to improve with IV Lasix with BUN down to 66 and CR downto 2.7.Has been feeling better when using Bipap at night. Case discussed with who feels as O2 monitoring showed apnea that further monitoring of O2 at night may show further drop in O2 . Code(s): I50.23 - ACUTE ON CHRONIC SYSTOLIC (CONGESTIVE) HEART FAILURE (2) Anemia Assessment/Plan: On replacement Iron supplements, had GI bleed during admission to [facility].Hemoglobin stable at 9.5 Code(s): D64.9 - ANEMIA, UNSPECIFIED (3) Chronic renal disease Assessment/Plan: Acute on chronic renal failure improving with BUN down to 66 and Cr down to 2.7 Code(s): N18.9 - CHRONIC KIDNEY DISEASE, UNSPECIFIED (4) HTN (hypertension) Code(s): I10 - ESSENTIAL (PRIMARY) HYPERTENSION (5) LV (left ventricular) mural thrombus Code(s): [id number] - (6) Shortness of breath Code(s): R06.02 - SHORTNESS OF BREATH (7) Diabetes mellitus Code(s): E11.9 - TYPE 2 DIABETES MELLITUS WITHOUT COMPLICATIONS Qualifiers: Diabetes mellitus complication status: with ophthalmic complications Diabetes mellitus complication detail: with diabetic retinopathy Assessment/Plan Acute on chronic systolic heart failur. Acute on chronic kidney filure. Diabetes mellitus Ventricular thrombus Anemia due to blood loss. S/P angioplasty with five stents. Continue present regimen. To undergo further monitlring of O2 at night to evlate need for Bipap with O2 as recommended by Dr. Bob.
--- NOTE | 2017-09-13 12:50 | PN ---
Progress Note (short form) - Note Progress Note: Renal follow up for THEE/Fluid overload Pt seen and examined at the bedside feeling better was able to walk today w/o significant limitation no CP making urine Vital Signs Temperature 98.1 F 09/13/17 10:22 Pulse Rate 71 09/13/17 10:22 Respiratory Rate 19 09/13/17 10:22 Blood Pressure 112/69 09/13/17 10:22 O2 Sat by Pulse Oximetry (%) 99 09/12/17 21:00 Intake & Output 09/10/17 09/11/17 09/12/17 09/13/17 23:59 23:59 23:59 23:59 Intake Total 296.6 1105 790 Output Total 1570 2350 2200 200 Balance -1273.4 -1245 -1410 -200 Weight 72.802 kg 72.631 kg 73.301 kg NAD awake and alert RRR, NO M/R + rales soft NT/ND NO LE edema CBC, BMP 09/11/17 05:35 09/13/17 06:00 Current Medications Aspirin (Ecotrin -) 81 mg PO DAILY [facility] Last Admin: 09/13/17 10:24 Dose: 81 mg Calcium Acetate (Phoslo -) 667 mg PO TIDCM [facility] Last Admin: 09/13/17 12:07 Dose: 667 mg Carvedilol (Coreg -) 12.5 mg PO BID [facility] Last Admin: 09/13/17 10:23 Dose: 12.5 mg Clopidogrel Bisulfate (Plavix -) 75 mg PO DAILY [facility] Last Admin: 09/13/17 10:23 Dose: 75 mg Ferrous Gluconate (Fergon -) 324 mg PO DAILY [facility] Last Admin: 09/13/17 10:23 Dose: 324 mg Folic Acid (Folic Acid -) 1 mg PO DAILY [facility] Last Admin: 09/13/17 10:24 Dose: 1 mg Furosemide (Lasix -) 80 mg PO DAILY [facility] Last Admin: 09/13/17 10:23 Dose: 80 mg Hydralazine HCl (Apresoline -) 25 mg PO BID [facility] Last Admin: 09/13/17 10:24 Dose: 25 mg Insulin Aspart (Novolog Vial Sliding Scale -) 1 vial SQ TIDAC [facility] PRN Reason: Protocol Last Admin: 09/13/17 12:00 Dose: 4 units Insulin Detemir (Levemir Vial) 35 units SQ HS [facility] Last Admin: 09/12/17 21:28 Dose: 35 units Isosorbide Dinitrate (Isordil -) 10 mg PO BIDISORDIL [facility] Last Admin: 09/13/17 10:23 Dose: 10 mg Pantoprazole Sodium (Protonix -) 40 mg PO BID [facility] Last Admin: 09/13/17 10:24 Dose: 40 mg Rosuvastatin Calcium (Crestor -) 10 mg PO HS [facility] Last Admin: 09/12/17 21:32 Dose: 10 mg Tamsulosin HCl (Flomax -) 0.4 mg PO HS [facility] Last Admin: 09/12/17 21:28 Dose: 0.4 mg Tobramycin Sulfate (Tobrex Ophthalmic Solution -) 1 drop OU TID [facility] Last Admin: 09/13/17 06:34 Dose: 1 drop Warfarin Sodium (Coumadin -) 3 mg PO DAILY@1800 [facility] Last Admin: 09/12/17 17:27 Dose: 3 mg ASSESSMENT AND PLAN: 77 year old gentleman with PMhx of CAD s/p recent SD and cardiac cath, Hypertension, HLD, IDDM, CHF, BPH who presented with SOB and admitted for CHF exacerbation with Cr of 3 #Acute Renal failure secondary to SOSA with volume overload and Hyperkalemia BUN/Cr uptrended today likely a result of overdiuresis/intravascular volume depletion will change Lasix to oral 80mg Daily Trend daily weights salt restriction no indication for DOCUMENT REVIEWER expect that renal function should improve as volume is controlled and more time elapses from contrast exposure #Hyponatremia due to HF/CKD no indication for 3% saline continue salt restriction Pt will need to be seen in the office next week with labs done prior. Florencio Del Cid DO
[2017-09-13 13:29] LABS: INR 2.5 (0.82-1.09); PROTHROMBIN TIME (PATIENT) 28.2 SEC (9.98-11.88)
[2017-09-13] MEDS: ALBUTEROL SO4 0.083% IH SOL 2.5 MG/3 ML VIAL.NEB. NEB PRN ×2 (16:50→22:49)
[2017-09-13] MEDS: WARFARIN NA 3 MG TABLET PO SCH (17:16)
--- NOTE | 2017-09-13 18:42 | EKG ---
Test Reason : Blood Pressure : / mmHG Vent. Rate : 071 BPM Atrial Rate : 071 BPM P-R Int : 208 ms QRS Dur : 098 ms QT Int : 450 ms P-R-T Axes : 014 -60 098 degrees QTc Int : 489 ms NORMAL SINUS RHYTHM POSSIBLE LEFT ATRIAL ENLARGEMENT LEFT AXIS DEVIATION LEFT VENTRICULAR HYPERTROPHY WITH REPOLARIZATION ABNORMALITY INFERIOR INFARCT (CITED ON OR BEFORE 09-APR-2016) ANTEROLATERAL INFARCT (CITED ON OR BEFORE 02-JAN-2015) ABNORMAL ECG WHEN COMPARED WITH ECG OF 09-SEP-2017 13:50, PREMATURE VENTRICULAR COMPLEXES ARE NO LONGER PRESENT Confirmed by SOPHIE HILL MD ([id number]) on 09/13/2017 6:42:01 PM Referred By: Confirmed By:SOPHIE HILL MD
[2017-09-13] MEDS: TAMSULOSIN HCL 0.4 MG CAP.ER.24H (FP) PO SCH (22:06)
[2017-09-13] MEDS: INSULIN DETEMIR 100 UNITS/ML MDV SQ SCH (22:07)
[2017-09-13] MEDS: ROSUVASTATIN CA 10 MG TABLET (FP) PO SCH (22:07)
[2017-09-14 05:54] VITALS: TEMP 98
[2017-09-14] MEDS: INSULIN SLIDING SCALE (NOVOLOG) 1 VIAL SQ SCH ×2 (06:54→11:57)
[2017-09-14] MEDS: TOBRAMYCIN 0.3% OPHTH SOLN 5 ML BOTTLE OU SCH (06:56)
[2017-09-14] MEDS: CALCIUM ACETATE 667 MG CAPSULE (FP) PO SCH ×2 (08:36→11:55)
[2017-09-14 09:07] LABS: INR 2.43 (0.82-1.09); PROTHROMBIN TIME (PATIENT) 27.5 SEC (9.98-11.88)
[2017-09-14 10:40] VITALS: BP 127/59; PULSE 76
[2017-09-14] MEDS: PANTOPRAZOLE 40 MG TABLET (FP) PO SCH (10:41)
[2017-09-14] MEDS: FUROSEMIDE 40 MG TABLET (FP) PO SCH (10:41)
[2017-09-14] MEDS: hydrALAZINE HCL 25 MG TABLET (FP) PO SCH (10:42)
[2017-09-14] MEDS: CARVEDILOL 12.5 MG TABLET (FP) PO SCH (10:42)
[2017-09-14] MEDS: ISOSORBIDE DINITRATE 10 MG TABLET (FP) PO SCH (10:42)
[2017-09-14] MEDS: FOLIC ACID 1 MG TABLET (FP) PO SCH (10:42)
[2017-09-14] MEDS: ASPIRIN COATED 81 MG TABLET.EC PO SCH (10:42)
[2017-09-14] MEDS: FERROUS GLUCONATE 324 MG TAB (FP) PO SCH (10:42)
[2017-09-14] MEDS: CLOPIDOGREL BISULFATE 75 MG TABLET (FP) PO SCH (10:42)
--- NOTE | 2017-09-14 11:09 | PN ---
Progress Note (short form) - Note Progress Note: Renal follow up for THEE/Fluid overload Pt seen and examined at the bedside sitting in the chair sob improved weight improved making urine for discharge today Vital Signs Temperature 98 F 09/14/17 08:50 Pulse Rate 76 09/14/17 08:50 Respiratory Rate 17 09/14/17 08:50 Blood Pressure 127/59 09/14/17 08:50 O2 Sat by Pulse Oximetry (%) 99 09/13/17 21:00 Intake & Output 09/11/17 09/12/17 09/13/17 09/14/17 23:59 23:59 23:59 23:59 Intake Total 3317 562 2463 120 Output Total 2350 2200 1500 Balance -1245 -1410 -170 120 Weight 72.631 kg 73.301 kg 71.781 kg NAD awake and alert RRR, NO M/R + rales soft NT/ND NO LE edema CBC, BMP 09/11/17 05:35 09/13/17 06:00 Current Medications Albuterol Sulfate (Ventolin 0.083% Nebulizer Soln -) 1 amp NEB Q4H PRN PRN Reason: SHORT OF BREATH/WHEEZING Last Admin: 09/13/17 22:49 Dose: 1 amp Aspirin (Ecotrin -) 81 mg PO DAILY [facility] Last Admin: 09/14/17 10:42 Dose: 81 mg Calcium Acetate (Phoslo -) 667 mg PO TIDCM [facility] Last Admin: 09/14/17 08:36 Dose: 667 mg Carvedilol (Coreg -) 12.5 mg PO BID [facility] Last Admin: 09/14/17 10:42 Dose: 12.5 mg Clopidogrel Bisulfate (Plavix -) 75 mg PO DAILY [facility] Last Admin: 09/14/17 10:42 Dose: 75 mg Ferrous Gluconate (Fergon -) 324 mg PO DAILY [facility] Last Admin: 09/14/17 10:42 Dose: 324 mg Folic Acid (Folic Acid -) 1 mg PO DAILY [facility] Last Admin: 09/14/17 10:42 Dose: 1 mg Furosemide (Lasix -) 80 mg PO DAILY [facility] Last Admin: 09/14/17 10:41 Dose: 80 mg Hydralazine HCl (Apresoline -) 25 mg PO BID [facility] Last Admin: 09/14/17 10:42 Dose: 25 mg Insulin Aspart (Novolog Vial Sliding Scale -) 1 vial SQ TIDAC [facility] PRN Reason: Protocol Last Admin: 09/14/17 06:54 Dose: Not Given Insulin Detemir (Levemir Vial) 35 units SQ HS [facility] Last Admin: 09/13/17 22:07 Dose: 35 units Isosorbide Dinitrate (Isordil -) 10 mg PO BIDISORDIL [facility] Last Admin: 09/14/17 10:42 Dose: 10 mg Pantoprazole Sodium (Protonix -) 40 mg PO BID [facility] Last Admin: 09/14/17 10:41 Dose: 40 mg Rosuvastatin Calcium (Crestor -) 10 mg PO HS [facility] Last Admin: 09/13/17 22:07 Dose: 10 mg Tamsulosin HCl (Flomax -) 0.4 mg PO HS [facility] Last Admin: 09/13/17 22:06 Dose: 0.4 mg Tobramycin Sulfate (Tobrex Ophthalmic Solution -) 1 drop OU TID [facility] Last Admin: 09/14/17 06:56 Dose: 1 drop Warfarin Sodium (Coumadin -) 3 mg PO DAILY@1800 [facility] Last Admin: 09/13/17 17:16 Dose: 3 mg ASSESSMENT AND PLAN: 77 year old gentleman with PMhx of CAD s/p recent [place] and cardiac cath, Hypertension, HLD, IDDM, CHF, BPH who presented with SOB and admitted for CHF exacerbation with Cr of 3 #Acute Renal failure secondary to SOSA with volume overload and Hyperkalemia no new labs today weight improved can be discharged on Lasix 80mg PO daily trend weights, edema at home repeat labs later this week #Hyponatremia due to HF/CKD no indication for 3% saline continue salt restriction Pt will need to be seen in the office next week with labs done prior. Florencio Del Cid DO
[2017-09-14] MEDS: ALBUTEROL SO4 0.083% IH SOL 2.5 MG/3 ML VIAL.NEB. NEB PRN (11:30)
--- NOTE | 2017-09-14 12:26 | PN ---
Progress Note (short form) - Note Progress Note: Feels OK today. Intermittent desaturation overnight down to 76%. This is likely due to a combination of cardiac and pulmonary issues. Intake & Output 09/11/17 09/12/17 09/13/17 09/14/17 23:59 23:59 23:59 23:59 Intake Total 0456 189 3845 470 Output Total 2350 2200 1500 Balance -1245 -1410 -170 470 Weight 160 lb 2 oz 161 lb 9.6 oz 158 lb 4 oz Last Vital Signs Temp Pulse Resp BP Pulse Ox 98 F 76 17 127/59 98 09/14/17 08:50 09/14/17 08:50 09/14/17 08:50 09/14/17 08:50 09/14/17 11:29 Active Medications Albuterol Sulfate (Ventolin 0.083% Nebulizer Soln -) 1 amp NEB Q4H PRN PRN Reason: SHORT OF BREATH/WHEEZING Last Admin: 09/14/17 11:30 Dose: 1 amp Aspirin (Ecotrin -) 81 mg PO DAILY [facility] Last Admin: 09/14/17 10:42 Dose: 81 mg Calcium Acetate (Phoslo -) 667 mg PO TIDCM [facility] Last Admin: 09/14/17 11:55 Dose: 667 mg Carvedilol (Coreg -) 12.5 mg PO BID [facility] Last Admin: 09/14/17 10:42 Dose: 12.5 mg Clopidogrel Bisulfate (Plavix -) 75 mg PO DAILY [facility] Last Admin: 09/14/17 10:42 Dose: 75 mg Ferrous Gluconate (Fergon -) 324 mg PO DAILY [facility] Last Admin: 09/14/17 10:42 Dose: 324 mg Folic Acid (Folic Acid -) 1 mg PO DAILY [facility] Last Admin: 09/14/17 10:42 Dose: 1 mg Furosemide (Lasix -) 80 mg PO DAILY [facility] Last Admin: 09/14/17 10:41 Dose: 80 mg Hydralazine HCl (Apresoline -) 25 mg PO BID [facility] Last Admin: 09/14/17 10:42 Dose: 25 mg Insulin Aspart (Novolog Vial Sliding Scale -) 1 vial SQ TIDAC [facility] PRN Reason: Protocol Last Admin: 09/14/17 11:57 Dose: 4 units Insulin Detemir (Levemir Vial) 35 units SQ HS [facility] Last Admin: 09/13/17 22:07 Dose: 35 units Isosorbide Dinitrate (Isordil -) 10 mg PO BIDISORDIL [facility] Last Admin: 09/14/17 10:42 Dose: 10 mg Pantoprazole Sodium (Protonix -) 40 mg PO BID [facility] Last Admin: 09/14/17 10:41 Dose: 40 mg Rosuvastatin Calcium (Crestor -) 10 mg PO [facility] Last Admin: 09/13/17 22:07 Dose: 10 mg Tamsulosin HCl (Flomax -) 0.4 mg PO [facility] Last Admin: 09/13/17 22:06 Dose: 0.4 mg Tobramycin Sulfate (Tobrex Ophthalmic Solution -) 1 drop OU TID [facility] Last Admin: 09/14/17 06:56 Dose: 1 drop Warfarin Sodium (Coumadin -) 3 mg PO DAILY@1800 [facility] Last Admin: 09/13/17 17:16 Dose: 3 mg Constitutional: Yes: NAD Eyes: Yes: WNL HENT: Yes: WNL Neck: Yes: WNL Cardiovascular: Yes: Regular Rate and Rhythm Respiratory: Yes: minimal basilar Rales Gastrointestinal: Yes: Soft ...Rectal Exam: Yes: Deferred Genitourinary: No: Anuria Musculoskeletal: Yes: Muscle Weakness Extremities: Yes: Cool Edema: No Peripheral Pulses WNL: Yes Integumentary: Yes: WNL Neurological: Yes: Alert, Oriented, Weakness Psychiatric: Yes: calm Labs: Laboratory Results - last 24 hr 09/13/17 09/13/17 09/13/17 12:00 12:47 17:15 PT with INR 28.20 H INR 2.50 H POC Glucometer 248 145 09/14/17 09/14/17 05:29 08:30 PT with INR 27.50 H INR 2.43 H POC Glucometer 132 Problem List - Problems (1) Acute on chronic systolic CHF (congestive heart failure) Code(s): I50.23 - ACUTE ON CHRONIC SYSTOLIC (CONGESTIVE) HEART FAILURE (2) Anemia Code(s): D64.9 - ANEMIA, UNSPECIFIED (3) Chronic renal disease Code(s): N18.9 - CHRONIC KIDNEY DISEASE, UNSPECIFIED (4) HTN (hypertension) Code(s): I10 - ESSENTIAL (PRIMARY) HYPERTENSION (5) LV (left ventricular) mural thrombus Code(s): RMD8772 - (6) Status post myocardial infarction Code(s): I25.2 - OLD MYOCARDIAL INFARCTION (7) CVA (cerebral infarction) Code(s): I63.9 - CEREBRAL INFARCTION, UNSPECIFIED (8) Hx of heart artery stent Code(s): Z95.5 - PRESENCE OF CORONARY ANGIOPLASTY IMPLANT AND GRAFT (9) Diabetes mellitus Code(s): E11.9 - TYPE 2 DIABETES MELLITUS WITHOUT COMPLICATIONS Qualifiers: Diabetes mellitus complication status: with ophthalmic complications Diabetes mellitus complication detail: with diabetic retinopathy IMP ACUTE ON CHRONIC CHF ASHD S/PMI S/P STENTS LEFT VENTRICULAR THROMBUS CKD HTN DM HLD H/O CVA SEVERE OSAS ON PORTABLE SCREEN: RDI 31.6 PLAN LASIX O2 PRN DAILY WTS BRONCHODILATORS PRN MONITOR LYTES ,RENAL FUNCTION NIPPV PRN WILL NEED HOME O2. DESATURATION TO THE 76% OVERNIGHT FOR SUSTAINED PERIODS OF TIME. WILL NEED HOME PAP THERAPY AND NOCTURNAL O2 D/C PLANNING DR SANTO
--- NOTE | 2017-09-15 16:01 | DS ---
Physical Examination Vital Signs: Vital Signs Temperature 98 F 09/14/17 08:50 Pulse Rate 76 09/14/17 08:50 Respiratory Rate 17 09/14/17 08:50 Blood Pressure 127/59 09/14/17 08:50 O2 Sat by Pulse Oximetry (%) 98 09/14/17 11:29 Findings/Remarks: O2 monitoring at night showed that O2 dropped to 76 for a sustained period of time. Constitutional: Yes: Well Nourished, Calm Eyes: Yes: Conjunctiva Clear, EOM Intact HENT: Yes: WNL Neck: Yes: Supple Cardiovascular: Yes: Regular Rate and Rhythm, S1, S2 Respiratory: Yes: Regular, Rales Gastrointestinal: Yes: Normal Bowel Sounds, Soft Renal/: Yes: WNL Musculoskeletal: Yes: WNL Extremities: Yes: WNL Edema: No Integumentary: Yes: WNL Neurological: Yes: WNL, Alert, Oriented ...Motor Strength: WNL Labs: CBC, BMP 09/11/17 05:35 09/13/17 06:00 Discharge Summary Reason For Visit: SOB HYPERTENSION ACUTE SYSTOLIC CHF Acute on chronic systolic heart failure, Acute on chronic renal fialure, s/p conary artery disease with 5 stents. Diabetes mellitus, Sleep Apnea Ventricular thrombus Anemia due to recent GI blood loss. Procedures: Principal: CT scan chest. Serial chest Xrays Other Procedures: O2 monitoring at night Hospital Course: 77 y/o diabetic on Insulin who had recently been discharged from [facility] who developed acute SOB and was brought to ED. He was in acute systlolic heart failure., acute on chronic renal failure, his BNP was very high. He had recently been discharged from [facility] after acute [place] , placement of five coronary stents, acute renal shutdown and had been in the hospital for 3 weeks. During this admission he was treated with IV Lasix drip continuously.He was also treated with IV Rocephin for possible pneimonia but after CT of chest showed that findings in chest Xray were more consistent with severe CHF. A trial of Bipap showed imrpovement in his SOB, pulmonary b2b sales consultant was consulted and it was found that he has sleep apnea and his O2 drops to 76% for a sustained period and it was determined that he requires Bipap at night. His renal function improved and also his CHF. He was discharged home with VNS who will arrange for his Bipap Condition: Improved - Instructions Diet, Activity, Other Instructions: Follow up with Dr. Del Cid next week. Referrals: Coleman Hess MD [Primary Care Provider] - Florencio Del Cid MD [Staff Physician] - Disposition: HOME - Home Medications Comprehensive Discharge Medication List: Ambulatory Orders Aspirin [ASA -] 81 mg PO DAILY 09/03/17 Carvedilol [Coreg -] 6.25 mg PO BID 09/03/17 Clopidogrel Bisulfate [Plavix -] 75 mg PO DAILY 09/03/17 Furosemide [Lasix -] 40 mg PO DAILY 09/03/17 Hydralazine HCl 10 mg PO TID 09/03/17 Insulin Glargine,Hum.rec.anlog [Lantus Solostar PEN -] 35 units SQ HS 09/03/17 Insulin Regular [Novolin R Vial -] 0 units SQ TID 09/03/17 Isosorbide Dinitrate [Isordil -] 20 mg PO TID 09/03/17 Pantoprazole Sodium [Protonix -] 40 mg PO BID 09/03/17 Rosuvastatin [Crestor -] 10 mg PO DAILY 09/03/17 Rosuvastatin [Crestor -] 10 mg PO HS 09/03/17 Tamsulosin HCl [Flomax -] 0.4 mg PO HS 09/03/17 Warfarin Sodium [Coumadin] 3 mg PO HS 09/03/17 Acetaminophen [Tylenol .Regular Strength -] 650 mg PO Q8H PRN 09/04/17 Nitroglycerin Sublingual [Nitrostat -] 0.4 mg SL PRN PRN 09/04/17 Aspirin Coated [Ecotrin -] 81 mg PO DAILY tablet.ec 09/14/17 Calcium Acetate [Phoslo -] 667 mg PO TIDCM 30 Days #90 capsule 09/14/17 Carvedilol [Coreg -] 12.5 mg PO BID tablet 09/14/17 Clopidogrel Bisulfate [Plavix -] 75 mg PO DAILY tablet 09/14/17 Ferrous Gluconate [Fergon -] 324 mg PO DAILY 90 Days #90 tab 09/14/17 Folic Acid - 1 mg PO DAILY 90 Days #90 tablet 09/14/17 Furosemide [Lasix -] 80 mg PO DAILY tablet 09/14/17 Insulin (Levemir) [Levemir Vial] 35 units SQ HS ml 09/14/17 Insulin Sliding Scale [Novolog Vial Sliding Scale -] 1 vial SQ TIDAC units Pantoprazole Sodium [Protonix -] 40 mg PO BID #0 tablet.ec 09/14/17 Rosuvastatin [Crestor -] 10 mg PO HS tablet 09/14/17 Tamsulosin HCl [Flomax -] 0.4 mg PO HS cap.er.24h 09/14/17 Warfarin Na [Coumadin -] 3 mg PO DAILY@1800 tablet 09/14/17 hydrALAZINE HCL [Apresoline -] 25 mg PO BID tablet 09/14/17
== END 2017-09-14 13:28 | disposition home or self-care (01) | DRG 291 ==
LOC: JER 23:12 → JERBED 09-04 00:40 → UNDOADMIN 09-04 01:55 → JERBED 09-04 02:24 → J4S 09-04 02:24
PROVIDERS: ADMIT Internal Medicine Hematology & Oncology; ATTEND Internal Medicine Hematology & Oncology
DX: I13.0 Hypertensive heart and chronic kidney disease with heart failure and stage 1 through stage 4 chronic kidney disease, or unspecified chronic kidney disease (principal); J18.9 Pneumonia, unspecified organism; I50.23 Acute on chronic systolic (congestive) heart failure; N17.9 Acute kidney failure, unspecified; E87.1 Hypo-osmolality and hyponatremia; I47.2 Ventricular tachycardia; D64.9 Anemia, unspecified; N18.9 Chronic kidney disease, unspecified; I25.10 Atherosclerotic heart disease of native coronary artery without angina pectoris; Z98.61 Coronary angioplasty status; E78.5 Hyperlipidemia, unspecified; G47.33 Obstructive sleep apnea (adult) (pediatric); E87.70 Fluid overload, unspecified; E87.5 Hyperkalemia; F41.8 Other specified anxiety disorders; N40.0 Benign prostatic hyperplasia without lower urinary tract symptoms; E11.319 Type 2 diabetes mellitus with unspecified diabetic retinopathy without macular edema; Z86.73 Personal history of transient ischemic attack (TIA), and cerebral infarction without residual deficits
CPT/HCPCS: 36415; 71045-TC-FY; 71250-TC; 76775-TC; 76856-TC; 80048; 80053; 80061; 82272; 82436; 82550; 82570; 82962; 83721; 83735; 83880; 84100; 84133; 84156; 84300; 84484; 84540; 85025; 85027; 85610; 85651; 85730; 86140; 86157; 86480; 86850; 86900; 86901; 87899; 93005; 93010; 93306-TC; 94640; 94660; 94761; 97116-GP; 97161-GP; 99284-25

== ENCOUNTER 2017-11-21 09:59 | Inpatient (IN) | payer OTHER, MEDICARE ==
--- NOTE | 2017-11-21 10:08 | PDOC ---
History of Present Illness - General Chief Complaint: Injury Stated Complaint: FALL/ LIGHTHEADED Time Seen by Provider: 11/21/17 10:08 - History of Present Illness Initial Comments: 11/21/17 10:09 Mr. 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 Per family who is with him he slid out of bed and fell on to his right buttock. Did not experience any LOC or dizziness and describes this as a mechanical fall. He has had increasing falls lately and was recently evaluated for similar in [place]. The patient denies chest pain, shortness of breath, headache and dizziness. Denies fever, chills, nausea, vomit, diarrhea and constipation. Denies dysuria, frequency, urgency and hematuria. Allergies: NKDA Past History - Past Medical History Allergies/Adverse Reactions: Allergies Allergy/AdvReac Type Severity Reaction Status Date / Time No Known Allergies Allergy Verified 04/09/16 11:14 Home Medications: Ambulatory Orders Aspirin [ASA -] 81 mg PO DAILY 09/03/17 Carvedilol [Coreg -] 6.25 mg PO BID 09/03/17 Clopidogrel Bisulfate [Plavix -] 75 mg PO DAILY 09/03/17 Furosemide [Lasix -] 40 mg PO DAILY 09/03/17 Hydralazine HCl 10 mg PO TID 09/03/17 Insulin Glargine,Hum.rec.anlog [Lantus Solostar PEN -] 35 units SQ HS 09/03/17 Insulin Regular [Novolin R Vial -] 0 units SQ TID 09/03/17 Isosorbide Dinitrate [Isordil -] 20 mg PO TID 09/03/17 Pantoprazole Sodium [Protonix -] 40 mg PO BID 09/03/17 Rosuvastatin [Crestor -] 10 mg PO DAILY 09/03/17 Rosuvastatin [Crestor -] 10 mg PO HS 09/03/17 Tamsulosin HCl [Flomax -] 0.4 mg PO HS 09/03/17 Warfarin Sodium [Coumadin] 3 mg PO HS 09/03/17 Acetaminophen [Tylenol .Regular Strength -] 650 mg PO Q8H PRN 09/04/17 Nitroglycerin Sublingual [Nitrostat -] 0.4 mg SL PRN PRN 09/04/17 Aspirin Coated [Ecotrin -] 81 mg PO DAILY tablet.ec 09/14/17 Calcium Acetate [Phoslo -] 667 mg PO TIDCM 30 Days #90 capsule 09/14/17 Carvedilol [Coreg -] 12.5 mg PO BID tablet 09/14/17 Clopidogrel Bisulfate [Plavix -] 75 mg PO DAILY tablet 09/14/17 Ferrous Gluconate [Fergon -] 324 mg PO DAILY 90 Days #90 tab 09/14/17 Folic Acid - 1 mg PO DAILY 90 Days #90 tablet 09/14/17 Furosemide [Lasix -] 80 mg PO DAILY tablet 09/14/17 Insulin (Levemir) [Levemir Vial] 35 units SQ HS ml 09/14/17 Insulin Sliding Scale [Novolog Vial Sliding Scale -] 1 vial SQ TIDAC units Pantoprazole Sodium [Protonix -] 40 mg PO BID #0 tablet.ec 09/14/17 Rosuvastatin [Crestor -] 10 mg PO HS tablet 09/14/17 Tamsulosin HCl [Flomax -] 0.4 mg PO HS cap.er.24h 09/14/17 Warfarin Na [Coumadin -] 3 mg PO DAILY@1800 tablet 09/14/17 hydrALAZINE HCL [Apresoline -] 25 mg PO BID tablet 09/14/17 Anemia: No (GIB) Asthma: No Cancer: No Cardiac Disorders: Yes (AL, Stents) CVA: Yes (1999, NO RESIDUAL.) COPD: No CHF: Yes Dementia: No Diabetes: Yes (IDDM) GI Disorders: Yes (GIB) Disorders: Yes (BPH) HTN: Yes Hypercholesterolemia: Yes Liver Disease: No Seizures: No Thyroid Disease: No - Surgical History Abdominal Surgery: No Appendectomy: No Cardiac Surgery: Yes (multiple stents) Cholecystectomy: No Lung Surgery: No Neurologic Surgery: No Orthopedic Surgery: Yes (right shoulder sx) - Immunization History Immunization Up to Date: Yes - Suicide/Smoking/Psychosocial Hx Smoking History: Never smoked Have you smoked in the past 12 months: No Hx Alcohol Use: No Drug/Substance Use Hx: No Substance Use Type: None Hx Substance Use Treatment: No Review of Systems - Review of Systems Comments:: 11/21/17 10:09 GENERAL/CONSTITUTIONAL: +Increased falls recently. No fever or chills. No weakness. HEAD, EYES, EARS, NOSE AND THROAT: No change in vision. No ear pain or discharge. No sore throat. CARDIOVASCULAR: No chest pain or shortness of breath RESPIRATORY: No cough, wheezing, or hemoptysis. GASTROINTESTINAL: No nausea, vomiting, diarrhea or constipation. GENITOURINARY: No dysuria, frequency, or change in urination. MUSCULOSKELETAL: +Right buttock/hip pain after fall. Scrotal swelling with bilateral lower edema swelling reported. SKIN: No rash NEUROLOGIC: No headache, vertigo, loss of consciousness, or change in strength/ sensation. ENDOCRINE: No increased thirst. No abnormal weight change HEMATOLOGIC/LYMPHATIC: No anemia, easy bleeding, or history of blood clots. ALLERGIC/IMMUNOLOGIC: No hives or skin allergy. *Physical Exam - Vital Signs Last Vital Signs Temp Pulse Resp BP Pulse Ox 97.7 F 84 18 143/70 96 11/21/17 10:00 11/21/17 10:00 11/21/17 10:00 11/21/17 10:11/21/17 10:00 - Physical Exam Comments: 11/21/17 10:09 GENERAL: Awake, alert, and fully oriented, in no acute distress HEAD: No signs of trauma, normocephalic, atraumatic EYES: PERRLA, EOMI, sclera anicteric, conjunctiva clear ENT: Auricles normal inspection, hearing grossly normal, nares patent, oropharynx clear without exudates. Moist mucosa NECK: Normal ROM, supple, no lymphadenopathy, JVD, or masses LUNGS: No distress, speaks full sentences, clear to auscultation bilaterally HEART: Regular rate and rhythm, normal S1 and S2, no murmurs, rubs or gallops, peripheral pulses normal and equal bilaterally. ABDOMEN: Soft, nontender, normoactive bowel sounds. No guarding, no rebound. No masses EXTREMITIES: +Bilateral lower extremity edema (2+) extending to scrotum. Normal inspection, Normal range of motion, no edema. No clubbing or cyanosis. NEUROLOGICAL: Cranial nerves II through XII grossly intact. Normal speech, normal gait, no focal sensorimotor deficits SKIN: Warm, Dry, normal turgor, no rashes or lesions noted. ED Treatment Course - LABORATORY CBC & Chemistry Diagram: 11/21/17 11:30 11/21/17 11:30 Medical Decision Making - Medical Decision Making 11/21/17 10:49 Mr. Davila is a 77 yo male w/ pmh as described who presents following fall earlier today. Workup begun for evaluation of increased falls and to r/o acute injury from most recent fall. 11/21/17 12:41 Large hematoma consisten with physical exam noted on CT. Patient also noted to have hyponatremia with elevated BNP as below. Paging PCP for admission for increasing falls with hyponatremia and fluid overload. 11/21/17 13:09 Discussed with PCP who will admit for further evaluation. *DC/Admit/Observation/Transfer Diagnosis at time of Disposition: Hyponatremia Fluid overload Qualifiers: Hypervolemia type: unspecified Qualified Code(s): E87.70 - Fluid overload, unspecified Fall Qualifiers: Encounter type: initial encounter Qualified Code(s): W19.XXXA - Unspecified fall, initial encounter - Discharge Dispostion Decision to Admit order: Yes - Referrals Referrals: Donovan eDlvalle MD [Primary Care Provider] - - Patient Instructions - Post Discharge Activity
[2017-11-21] MEDS ORDERED: traMADol HCL 50 MG TABLET PO ONE (10:41)
[2017-11-21] MEDS ORDERED: traMADol HCL 50 MG TABLET ONE (11:09)
--- NOTE | 2017-11-21 11:21 | PDOC ---
Attending Attestation - Resident Resident Name: Hermilo Brito - ED Attending Attestation I have performed the following: I have examined & evaluated the patient, The case was reviewed & discussed with the resident, I agree w/resident's findings & plan, Exceptions are as noted - HPI HPI: 11/21/17 11:18 "The patient is a 77 year old male, with a significant past medical history of CHF, DM, HTN, HLD, RV thrombus (on Plavix, Aspirin, Coumadin), CAD s/p stents x5 , who presents to the emergency department s/p mechanical fall earlier this morning. Per daughter, patient was sitting in bed, slid down and landed on his buttocks. The patient reports associated right hip pain and ecchymosis. He denies any head trauma, LOC, changes in vision, neck or back pain, weakness, dizziness, or lightheadedness. Per daughter, patient has had increasing falls lately, his last being 2 weeks ago. He denies any chest pain, shortness of breath, diaphoresis, or palpitations. He denies any abdominal pain, nausea, vomiting, diarrhea, or constipation. He denies any dysuria, hematuria, frequency , or urgency. He denies any fever or chills. He denies any recent travel or sick contacts. Pt normally ambulatory with walker but has not been able to walk since his fall 2/2 pain. - Physicial Exam PE: 11/21/17 11:21 "GENERAL: Awake, alert, and fully oriented, in no acute distress. HEAD: No signs of trauma EYES: PERRLA, EOMI, sclera anicteric, conjunctiva clear ENT: Auricles normal inspection, hearing grossly normal, nares patent, oropharynx clear without exudates. Moist mucosa NECK: Nontender, no stepoffs, Normal ROM, supple, no lymphadenopathy, JVD, or masses LUNGS: Breath sounds equal, clear to auscultation bilaterally. No wheezes, and no crackles HEART: Regular rate and rhythm, normal S1 and S2, no murmurs, rubs or gallops ABDOMEN: Soft, nontender, normoactive bowel sounds. No guarding, no rebound. No masses EXTREMITIES: + R hip ecchymosis and tenderness, no shortening or rotation NEUROLOGICAL: Cranial nerves II through XII intact. 5/5 strength and sensation in all extremities, Normal speech, normal gait, normal cerebellar function SKIN: Warm, Dry, normal turgor, no rashes or lesions noted. " - Medical Decision Making 11/21/17 11:24 77 M with mechanical fall getting out of bed today. Now with R hip bruise and pain. Will r/o fx. Pt also with increasing frequency of falls. Will obtain head CT and labs. - Labs, UA, CXR - CT head - XR hip 11/21/17 14:51 Labs notable for hyponatremia XR and CTs unremarkable. Dr. Del Cid at bedside to evaluate pt. Recommends lasix 100mg IV and ICU level care for possible initiation of HD. Pt admitted to Dr. Hess <Luis Gill - Last Filed: 11/21/17 14:51> - Medical Decision Making 11/21/17 15:11 Documentation prepared by Celestine Rivera, acting as medical practitioners for Luis Gill MD. <Celestine Rivera - Last Filed: 11/21/17 15:11> ED Treatment Course - LABORATORY CBC & Chemistry Diagram: 11/21/17 11:30 11/21/17 11:30 - ADDITIONAL ORDERS Additional order review: Laboratory Results 11/21/17 11/21/17 11/21/17 11:30 11:30 11:30 PT with INR 14.80 H INR 1.31 H PTT (Actin FS) 28.5 Sodium 124 L* Potassium 3.5 Chloride 80 L Carbon Dioxide 30 Anion Gap 14 BUN 137 H* D Creatinine 3.6 H Creat Clearance w eGFR 16.48 Random Glucose 241 H Calcium 8.1 L Total Bilirubin 0.9 D AST 94 H D ALT 67 D Alkaline Phosphatase 208 H D Creatine Kinase Troponin I B-Natriuretic Peptide 7918.00 H Total Protein 6.3 L Albumin 2.7 L Urine Color Yellow Urine Appearance Clear Urine pH 5.0 Ur Specific [place] 1.011 Urine Protein 1+ H Urine Glucose (UA) Negative Urine Ketones Negative Urine Blood Negative Urine Nitrite Negative Urine Bilirubin Negative Urine Urobilinogen Negative Ur Leukocyte Esterase Negative Urine WBC (Auto) 4 Urine RBC (Auto) <1 Ur Epithelial Cells Rare Hyaline Casts 36 Urine Mucus Rare 11/21/17 11:26 PT with INR INR PTT (Actin FS) Sodium Potassium Chloride Carbon Dioxide Anion Gap BUN Creatinine Creat Clearance w eGFR Random Glucose Calcium Total Bilirubin AST ALT Alkaline Phosphatase Creatine Kinase 129 Troponin I < 0.02 D B-Natriuretic Peptide Total Protein Albumin Urine Color Urine Appearance Urine pH Ur Specific [place] Urine Protein Urine Glucose (UA) Urine Ketones Urine Blood Urine Nitrite Urine Bilirubin Urine Urobilinogen Ur Leukocyte Esterase Urine WBC (Auto) Urine RBC (Auto) Ur Epithelial Cells Hyaline Casts Urine Mucus 11/21/17 11:30 RBC 3.41 L MCV 77.0 L MCHC 31.7 L RDW 20.0 H MPV 10.2 Neutrophils % 78.7 Lymphocytes % 9.9 D Monocytes % 9.2 Eosinophils % 1.3 Basophils % 0.9 - RADIOLOGY Radiograph Interpretation: 11/21/17 15:08 EXAM: CR Hip and Pelvis-Right INTERPRETED BY: Dr. Durham REVIEWED BY: Dr. Gill IMPRESSION: Intact hips. No acute fracture or subluxation appreciated. Symptoms persist, further imaging may be of help EXAM: CXR INTERPRETED BY: Dr. Durham REVIEWED BY: Dr. Gill IMPRESSION: Imaging reveals a large heart with congestive changes similar to that seen on 09/12/2017. Follow-up recommended. EXAM: CT Lower extremity INTERPRETED BY: Dr. Moncada REVIEWED BY: Dr. Gill IMPRESSION: No CT evidence of fracture. If there is ongoing clinical concern additional evaluation utilizing MRI may be performed (reported sensitivity 100%) . A large 11 x 5 x 4 cm hyperdense structure consistent with a hematoma is seen within the soft tissues posterior to the right hip. Correlation with follow-up CT or MRI is suggested to document resolution of this structure. EXAM: Head CT INTERPRETED BY: Dr. Wilson REVIEWED BY: Dr. Gill IMPRESSION: No significant interval change Moderate atrophy and ventricular dilatation. Focal old infarct in the right occipital lobe, old lacunar infarct in the left periventricular white matter along superior margin of the left basal ganglia and likely old lacunar infarcts in the right cerebellum are again seen. No mass lesion, gross acute infarct or intracranial hemorrhage are identified. Correlate clinically to determine further evaluation and follow-up. - Medications Given in the ED: ED Medications Discontinued Medications Generic Name Dose Route Start Last Admin Trade Name Freq PRN Reason Stop Dose Admin Sodium Chloride 500 mls @ 1,000 mls/hr 11/21/17 12:22 11/21/17 12:47 Normal Saline - IV 11/21/17 12:51 1,000 mls/hr ASDIR STA Administration Tramadol HCl 50 mg 05/25/18 10:41 11/21/17 10:42 Ultram - PO 11/21/17 10:42 50 mg ONCE ONE Administration <Celestine Rivera - Last Filed: 11/21/17 15:11>
[2017-11-21 11:41] LABS: BASO % 0.9 % (0-2.0); EOS % 1.3 % (0-4.5); HEMATOCRIT 26.3 % (35.4-49); HEMOGLOBIN 8.3 GM/dL (11.7-16.9); LYMPH % 9.9 % (8-40); MCH 24.4 pg (25.7-33.7); MCHC 31.7 g/dl (32.0-35.9); MEAN PLT VOLUME 10.2 fl (7.5-11.1); MONO % 9.2 % (3.8-10.2); NEUT % 78.7 % (42.8-82.8); PLATELET COUNT 210 K/MM3 (134-434); RBC 3.41 M/mm3 (4.00-5.60); WHITE BLOOD COUNT 6.7 K/mm3 (4.0-10.0)
[2017-11-21 11:42] LABS: URINE APPEARANCE CLEAR; URINE BILIRUBIN NEGATIVE (<2.0 mg/dL); URINE COLOR YELLOW; URINE GLUCOSE (UA) NEGATIVE (NEGATIVE); URINE KETONE NEGATIVE (NEGATIVE); URINE LEUK ESTERASE NEGATIVE (NEGATIVE); URINE NITRITE NEGATIVE (NEGATIVE); URINE UROBILINOGEN NEGATIVE mg/dL (0.2-1.0)
[2017-11-21 11:52] LABS: URINE PROTEIN 1+ (NEGATIVE)
[2017-11-21 11:55] LABS: INR 1.31 (0.82-1.09); PROTHROMBIN TIME (PATIENT) 14.8 SEC (9.7-13.0)
[2017-11-21 11:56] LABS: EPI CELLS RARE /HPF (FEW); URINE HYALINE CAST 36 /lpf; URINE MUCUS RARE
[2017-11-21 11:58] LABS: ACTIVATED PTT 28.5 SECONDS (26.9-34.4)
[2017-11-21 12:05] LABS: ALBUMIN 2.7 g/dl (3.4-5.0); ANION GAP 14 (8-16); BILIRUBIN,TOTAL 0.9 mg/dL (0.2-1.0); CALCIUM 8.1 mg/dL (8.5-10.1); CHLORIDE 80 mmol/L (98-107); CO2 30 mmol/L (21-32); CREATININE 3.6 mg/dL (0.7-1.3); GLUCOSE,RANDOM 241 mg/dL (74-106); POTASSIUM 3.5 mmol/L (3.5-5.1); SGOT/AST 94 U/L (15-37); SGPT/ALT 67 U/L (12-78); TOT PROT 6.3 g/dl (6.4-8.2)
[2017-11-21 12:08] LABS: ALK PHOS 208 U/L (45-117)
[2017-11-21 12:19] LABS: BLOOD UREA NITROGEN 137 mg/dL (7-18); SODIUM 124 mmol/L (136-145)
[2017-11-21] MEDS ORDERED: SODIUM CHLORIDE 500 ML IV STA (12:22)
[2017-11-21] MEDS ORDERED: FUROSEMIDE 100 MG/10 ML INJECTABLE VIAL IVPB ONE (14:59)
--- NOTE | 2017-11-21 15:39 | CONSULT ---
Consult - text type - Consultation Consultation Note: Renal Consult for THEE This is a 77 year old gentleman with PMhx of CAD s/p GA, CHF, Hypertension, IDDM , HLD, CKD, with recent THEE who presented from home with fall and found to have THEE and fluid overlaod/CHF. Pt has a fall about 1 week ago and was taken to [facility] and discharged w/ no fractures. Pts Dr. Davila reports that he gained a large amount of weight subsequent to the fall despite being on his diuretics. No CP. Pt is more confused, no N/V. In the ED pt sitting up in bed with mild respiratory distress. No obstructive symptoms. No flank pain. No NSAID use. PMhx: as above Allergies: NDKA Family hx: NC Social hx: No T/A/D ROS: as per HPI Vital Signs Temperature 97.7 F 11/21/17 10:00 Pulse Rate 84 11/21/17 10:00 Respiratory Rate 18 11/21/17 10:00 Blood Pressure 143/70 11/21/17 10:00 O2 Sat by Pulse Oximetry (%) 96 11/21/17 10:00 Intake & Output 11/18/17 11/19/17 11/20/17 11/21/17 23:59 23:59 23:59 23:59 Weight 76.204 kg Mild distress from SOB + JVD, Neck supple RRR, No M/R + rales b/l lung bocanegra soft NT/ND + edema, no clubbing or cyanosis pt is confused CBC, BMP 11/21/17 11:30 11/21/17 11:30 Current Medications Furosemide (Lasix Injection -) 100 mg IVPB ONCE ONE Stop: 11/21/17 15:00 Furosemide 100 mg/ Dextrose 50 mls @ 2.5 mls/hr IVPB TITR COREY 77 year old gentleman with PMhx of CAD s/p GA, CHF, Hypertension, IDDM, HLD, CKD , with recent THEE who presented from home with fall and found to have THEE and fluid overlaod/CHF. #THEE on CKD in setting of volume overload #Acute CHF #Hypervolemic Hyponatremia #Anemia #CAD Pt will need aggressive diuresis, will give Lasix 100 IVPB followed by lasix gtt will be admitted to ICU, discussed case with Dr. Morgan Titrate Last gtt low threshold to start dialysis if pt does not have adaqute response to IV Lasix No indication for 3% saline for hyponatremia, expect improvement with diuresis Check iron levels, may need iron and AMY Cardiology consult check BMP Q12h Will follow closely Florencio Del Cid DO
--- NOTE | 2017-11-21 16:47 | CONSULT ---
Consult Consult Specialty:: PULM/CCM Referred by:: SOPHIA Reason for Consultation:: SOB - History of Present Illness Chief Complaint: SOB / AMS History of Present Illness: 77 M, CAD, multiple PCI in July, s/p [place], CHF, Hypertension, IDDM, HLD, CKD, CSA/WELL TREATMENT OFFSIDER due to his cardiac history, and recent multiple falls. Was at [facility] for a fall last week and radiographs were taken that revealed no fratures. Unsure if CPK levels were checked. Now admitted via the ER due to progressive weight gain and confusion. No fever or chills. No travel history or sick contacts. No CP but reports SOB. No hemoptysis. 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 No: Addictions, Bipolar, Depression, Panic, Psychosis, Schizophrenia, Other Endocrine: Yes: Diabetes Mellitus. No: Heartwell's Disease, Laquita's Disease, Diabetes Insipidus, Hyperparathyroidism, Hyperthyroidism, Hypothyroidism, Osteopenia, SIADH, Other - Past Surgical History Past Surgical History: Yes: Stent - Alcohol/Substance Use Hx Alcohol Use: No History of Substance Use: reports: None - Smoking History Smoking history: Never smoked Have you smoked in the past 12 months: No - Social History Usual Living Arrangement: With Spouse ADL: Independent History of Recent Travel: No Home Medications - Allergies Allergies/Adverse Reactions: Allergies Allergy/AdvReac Type Severity Reaction Status Date / Time No Known Allergies Allergy Verified 04/09/16 11:14 - Home Medications Home Medications: Ambulatory Orders Aspirin [ASA -] 81 mg PO DAILY 09/03/17 Carvedilol [Coreg -] 6.25 mg PO BID 09/03/17 Clopidogrel Bisulfate [Plavix -] 75 mg PO DAILY 09/03/17 Furosemide [Lasix -] 40 mg PO DAILY 09/03/17 Hydralazine HCl 10 mg PO TID 09/03/17 Insulin Glargine,Hum.rec.anlog [Lantus Solostar PEN -] 35 units SQ HS 09/03/17 Insulin Regular [Novolin R Vial -] 0 units SQ TID 09/03/17 Isosorbide Dinitrate [Isordil -] 20 mg PO TID 09/03/17 Pantoprazole Sodium [Protonix -] 40 mg PO BID 09/03/17 Rosuvastatin [Crestor -] 10 mg PO DAILY 09/03/17 Rosuvastatin [Crestor -] 10 mg PO HS 09/03/17 Tamsulosin HCl [Flomax -] 0.4 mg PO HS 09/03/17 Warfarin Sodium [Coumadin] 3 mg PO HS 09/03/17 Acetaminophen [Tylenol .Regular Strength -] 650 mg PO Q8H PRN 09/04/17 Nitroglycerin Sublingual [Nitrostat -] 0.4 mg SL PRN PRN 09/04/17 Aspirin Coated [Ecotrin -] 81 mg PO DAILY tablet.ec 09/14/17 Calcium Acetate [Phoslo -] 667 mg PO TIDCM 30 Days #90 capsule 09/14/17 Carvedilol [Coreg -] 12.5 mg PO BID tablet 09/14/17 Clopidogrel Bisulfate [Plavix -] 75 mg PO DAILY tablet 09/14/17 Ferrous Gluconate [Fergon -] 324 mg PO DAILY 90 Days #90 tab 09/14/17 Folic Acid - 1 mg PO DAILY 90 Days #90 tablet 09/14/17 Furosemide [Lasix -] 80 mg PO DAILY tablet 09/14/17 Insulin (Levemir) [Levemir Vial] 35 units SQ HS ml 09/14/17 Insulin Sliding Scale [Novolog Vial Sliding Scale -] 1 vial SQ TIDAC units Pantoprazole Sodium [Protonix -] 40 mg PO BID #0 tablet.ec 09/14/17 Rosuvastatin [Crestor -] 10 mg PO HS tablet 09/14/17 Tamsulosin HCl [Flomax -] 0.4 mg PO HS cap.er.24h 09/14/17 Warfarin Na [Coumadin -] 3 mg PO DAILY@1800 tablet 09/14/17 hydrALAZINE HCL [Apresoline -] 25 mg PO BID tablet 09/14/17 Review of Systems - Review of Systems Constitutional: reports: Lethargy, Malaise, Weakness. denies: Chills, Fever, Night Sweats, Unintentional Wgt. Loss Eyes: reports: No Symptoms HENT: reports: No Symptoms Neck: reports: No Symptoms Cardiovascular: reports: Edema, Shortness of Breath. denies: Chest Pain, Palpitations Respiratory: reports: Cough, Orthopnea, Snoring, SOB, SOB on Exertion, Wheezing. denies: Hemoptysis Gastrointestinal: reports: Bloating Genitourinary: denies: Burning, Dysuria Breasts: reports: No Symptoms Reported Musculoskeletal: reports: Extremity Pain, Muscle Pain Integumentary: reports: Bruising, Change in Color Neurological: reports: Confusion Endocrine: reports: No Symptoms Hematology/Lymphatic: reports: No Symptoms Physical Exam Vital Signs: Vital Signs Temperature 97.2 F L 11/21/17 16:19 Pulse Rate 76 11/21/17 16:19 Respiratory Rate 18 11/21/17 16:19 Blood Pressure 113/62 11/21/17 16:19 O2 Sat by Pulse Oximetry (%) 96 11/21/17 16:19 Constitutional: Yes: Obese, Other (mildly confused) Eyes: Yes: Conjunctiva Clear, EOM Intact HENT: Yes: Atraumatic, Normocephalic Neck: Yes: Supple, Trachea Midline Cardiovascular: Yes: JVD, Murmur Respiratory: Yes: Cough, Diminished, On Nasal O2, Rales, Rhonchi, SOB. No: Accessory Muscle Use, Stridor, Tachypnea, Wheezes Gastrointestinal: Yes: Normal Bowel Sounds, Abdomen, Obese, Ascites. No: Pulsatile Mass, Tenderness, Rebound, Vomiting ...Rectal Exam: Yes: Deferred Renal/: No: CVA Tenderness - Left, CVA Tenderness - Right, [place] Present Musculoskeletal: Yes: Joint Swelling Extremities: Yes: Erythema Edema: Yes Peripheral Pulses WNL: Yes Integumentary: Yes: Bruising, Erythema. No: Jaundice, Skin Tear Neurological: Yes: Alert, Oriented, Confusion, Lethargy. No: Facial Droop Psychiatric: Yes: Alert Labs: CBC, BMP 11/21/17 11:30 11/21/17 11:30 Imaging - Results Chest X-ray: Report Reviewed, Image Reviewed Problem List - Problems (1) Fall Code(s): W19.XXXA - UNSPECIFIED FALL, INITIAL ENCOUNTER Qualifiers: Encounter type: initial encounter Qualified Code(s): W19.XXXA - Unspecified fall, initial encounter (2) Fluid overload Code(s): E87.70 - FLUID OVERLOAD, UNSPECIFIED Qualifiers: Hypervolemia type: unspecified Qualified Code(s): E87.70 - Fluid overload, unspecified (3) Hyponatremia Code(s): E87.1 - HYPO-OSMOLALITY AND HYPONATREMIA (4) Acute on chronic systolic CHF (congestive heart failure) Code(s): I50.23 - ACUTE ON CHRONIC SYSTOLIC (CONGESTIVE) HEART FAILURE (5) Acute renal failure Code(s): N17.9 - ACUTE KIDNEY FAILURE, UNSPECIFIED (6) Anemia Code(s): D64.9 - ANEMIA, UNSPECIFIED (7) BPH (benign prostatic hypertrophy) Code(s): N40.0 - BENIGN PROSTATIC HYPERPLASIA WITHOUT LOWER URINRY TRACT SYMP (8) Chronic renal disease Code(s): N18.9 - CHRONIC KIDNEY DISEASE, UNSPECIFIED Qualifiers: Chronic kidney disease stage: stage 4 (severe) Qualified Code(s): N18.4 - Chronic kidney disease, stage 4 (severe) (9) Diabetes mellitus Code(s): E11.9 - TYPE 2 DIABETES MELLITUS WITHOUT COMPLICATIONS Qualifiers: Diabetes mellitus complication status: with ophthalmic complications Diabetes mellitus complication detail: with diabetic retinopathy (10) HTN (hypertension) Code(s): I10 - ESSENTIAL (PRIMARY) HYPERTENSION (11) Hx of heart artery stent Code(s): Z95.5 - PRESENCE OF CORONARY ANGIOPLASTY IMPLANT AND GRAFT Assessment/Plan Noted Lasix was given already given and patient to be started on a Lasix drip. May need HD Strict I&O O2 as needed NIPPV at night for CSA/WELL TREATMENT OFFSIDER Cardiology evaluation BD TX PRN Monitor off ABX Follow CE Normal transfusion thresholds (Would not transfuse unless Hgb less than 8) Follow Na levels ICU monitoring Dr Bob Critical care time spent in reviewing chart, evaluating patient and formulating plan - 36 minutes.
--- NOTE | 2017-11-21 18:13 | CONSULT ---
Consultation: REQUESTING PROVIDER: CONSULT REQUEST: We have been asked to medically evaluate this patient for ( hyponatremia and CHF exacerbation ). HISTORY OF PRESENT ILLNESS: This is a 77 year old gentleman with PMhx of CAD s/p [place], CHF, Hypertension, IDDM , HLD, CKD, with recent THEE who presented from home with fall and found to have THEE and fluid overlaod/CHF. Pt has a fall about 1 week ago and was taken to [facility] and discharged w/ no fractures. Pts Dr. Davila reports that he gained a large amount of weight subsequent to the fall despite being on his diuretics. No CP. Pt is more confused, no N/V. In the ED pt sitting up in bed with mild respiratory distress. No obstructive symptoms. No flank pain. No NSAID use. REVIEW OF SYSTEMS: CONSTITUTIONAL: Absent: fever, chills, diaphoresis, generalized weakness, malaise, loss of appetite, weight change HEENT: Absent: rhinorrhea, nasal congestion, throat pain, throat swelling, difficulty swallowing, mouth swelling, ear pain, eye pain, visual changes CARDIOVASCULAR: Absent: chest pain, syncope, palpitations, irregular heart rate, lightheadedness , peripheral edema RESPIRATORY: Absent: cough, shortness of breath, dyspnea with exertion, orthopnea, wheezing, stridor, hemoptysis GASTROINTESTINAL: Absent: abdominal pain, abdominal distension, nausea, vomiting, diarrhea, constipation, melena, hematochezia GENITOURINARY: Absent: dysuria, frequency, urgency, hesitancy, hematuria, flank pain, genital pain MUSCULOSKELETAL: Absent: myalgia, arthralgia, joint swelling, back pain, HIP RIGHT pain SKIN: Absent: rash, itching, pallor HEMATOLOGIC/IMMUNOLOGIC: Absent: easy bleeding, easy bruising, lymphadenopathy, frequent infections ENDOCRINE: Absent: unexplained weight gain, unexplained weight loss, heat intolerance, cold intolerance NEUROLOGIC: Absent: headache, focal weakness or paresthesias, dizziness, unsteady gait, seizure, mental status changes, bladder or bowel incontinence PSYCHIATRIC: Absent: anxiety, depression, suicidal or homicidal ideation, hallucinations. PHYSICAL EXAMINATION Vital Signs - 24 hr 11/21/17 11/21/17 10:00 16:19 Temperature 97.7 F 97.2 F L Pulse Rate 84 Pulse Rate [ 76 Left Radial] Respiratory 18 18 Rate Blood Pressure 143/70 Blood Pressure 113/62 [Left Arm] O2 Sat by Pulse 96 96 Oximetry (%) GENERAL: AAOx3 in mild distress , with right pelvic pain HEAD: NC/AT EYES: MARQUITA, EOMI , sclera anicteric, conjunctiva clear. EARS, NOSE, THROAT: Ears normal, nares patent, oropharynx clear without exudates. Moist mucous membranes. NECK: Normal range of motion, supple without lymphadenopathy,+ JVD, LUNGS: B/L rales . No wheezes, . No accessory muscle use. HEART: Regular rate and rhythm, normal S1 and S2 without murmur, rub or gallop. ABDOMEN: Soft, nontender, not distended, normoactive bowel sounds, no guarding, no rebound, MUSCULOSKELETAL: LIMITED ROM IN RIGHT HIP DUE TO PAIN . No bony deformities or tenderness. No CVA tenderness. UPPER EXTREMITIES: 2+ pulses, warm, well-perfused. No cyanosis. No clubbing. Cap refill <2 seconds. No peripheral edema. LOWER EXTREMITIES: 2+ pulses, warm, well-perfused. No calf tenderness. +2 peripheral edema. RIGHT HIP PAIN , STRENGTH 3/5 DISTAL AND PROXIMAL IN RIGHT LE , RIGHT KNEE HEMATOMA AND EFFUSION NEUROLOGICAL: Cranial nerves II-XII intact. Normal speech. SENSATION INTACT , NO FOCAL DEFICIT PSYCHIATRIC: Cooperative. Good eye contact. Appropriate mood and affect. SKIN: Warm, dry, Laboratory Results - last 24 hr 11/21/17 11/21/17 11/21/17 11:26 11:30 11:30 WBC 6.7 D RBC 3.41 L Hgb 8.3 L D Hct 26.3 L D MCV 77.0 L MCH 24.4 L MCHC 31.7 L RDW 20.0 H Plt Count 210 D MPV 10.2 Neutrophils % 78.7 Lymphocytes % 9.9 D Monocytes % 9.2 Eosinophils % 1.3 Basophils % 0.9 Nucleated RBC % 0 PT with INR 14.80 H INR 1.31 H PTT (Actin FS) 28.5 Sodium Potassium Chloride Carbon Dioxide Anion Gap BUN Creatinine Creat Clearance w eGFR Random Glucose Calcium Total Bilirubin AST ALT Alkaline Phosphatase Creatine Kinase 129 Troponin I < 0.02 D B-Natriuretic Peptide Total Protein Albumin Urine Color Urine Appearance Urine pH Ur Specific Stuart Urine Protein Urine Glucose (UA) Urine Ketones Urine Blood Urine Nitrite Urine Bilirubin Urine Urobilinogen Ur Leukocyte Esterase Urine WBC (Auto) Urine RBC (Auto) Ur Epithelial Cells Hyaline Casts Urine Mucus 11/21/17 11/21/17 11:30 11:30 WBC RBC Hgb Hct MCV MCH MCHC RDW Plt Count MPV Neutrophils % Lymphocytes % Monocytes % Eosinophils % Basophils % Nucleated RBC % PT with INR INR PTT (Actin FS) Sodium 124 L* Potassium 3.5 Chloride 80 L Carbon Dioxide 30 Anion Gap 14 BUN 137 H* D Creatinine 3.6 H Creat Clearance w eGFR 16.48 Random Glucose 241 H Calcium 8.1 L Total Bilirubin 0.9 D AST 94 H D ALT 67 D Alkaline Phosphatase 208 H D Creatine Kinase Troponin I B-Natriuretic Peptide 7918.00 H Total Protein 6.3 L Albumin 2.7 L Urine Color Yellow Urine Appearance Clear Urine pH 5.0 Ur Specific Stuart 1.011 Urine Protein 1+ H Urine Glucose (UA) Negative Urine Ketones Negative Urine Blood Negative Urine Nitrite Negative Urine Bilirubin Negative Urine Urobilinogen Negative Ur Leukocyte Esterase Negative Urine WBC (Auto) 4 Urine RBC (Auto) <1 Ur Epithelial Cells Rare Hyaline Casts 36 Urine Mucus Rare Active Medications Generic Name Dose Route Start Last Admin Trade Name Freq PRN Reason Stop Dose Admin Calcium Acetate 667 mg 11/21/17 18:15 Phoslo - PO TIDCM COREY Furosemide 100 mg/ Dextrose 50 mls @ 2.5 mls/hr 11/21/17 15:00 IVPB TITR COREY Protocol 5 MG/HR Insulin Aspart 1 vial 11/21/17 22:00 Novolog Vial Sliding Scale - SQ ACHS COREY Protocol Rosuvastatin Calcium 10 mg 11/21/17 22:00 Crestor - PO HS COREY Tamsulosin HCl 0.4 mg 11/21/17 22:00 Flomax - PO HS COREY CBC, BMP 11/21/17 11:30 11/21/17 11:[address] :11/21/2017 No significant interval change Moderate atrophy and ventricular dilatation. Focal old infarct in the right occipital lobe, old lacunar infarct in the left periventricular white matter along superior margin of the left basal ganglia and likely old lacunar infarcts in the right cerebellum are again seen. No mass lesion, gross acute infarct or intracranial hemorrhage are identified. Correlate clinically to determine further evaluation and follow-up. _ Hip pelvic CT : 11/21/[address] evidence of fracture. If there is ongoing clinical concern additional evaluation utilizing MRI may be performed (reported sensitivity 100%). A large 11 x 5 x 4 cm hyperdense structure consistent with a hematoma is seen within the soft tissues posterior to the right hip. Correlation with follow-up CT or MRI is suggested to document resolution of this structure. _ ASSESSMENT/PLAN: Fall * mechanical slipped from bed , no dizziness or loc , no post ictal symptoms . 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 * THEE and CKD * BUN/Cr 137/3.6 * monitor * iv lasix 100 mg ivpush * nephrology consulted * monitor I&O closely * if pt did not make enough urine possible HD tomorrow Hyponatremia hypervolemia * NA 124 * c/w diuretics lasix iv abd drip * no need for hypertonic saline for now * pt is stable withj no AMS or seizure symptoms * bmp q12 hour * Anemia likely from chronic disease * H/H 8.3/26.3 * monitor * transfuse as needed for hgb below 7 * CAD AFIB HTN * c/w ac asa , plavix and coumadin * c/w home meds BB, hydraluzine , isosorbid dinitrate HLD * c/w statin 10 mg Q HS IDDM : * ISS * Levemir 25 units Q AM (35 at home , i decreased due to pt low appetite ) * BGM * monitor BPH * continue tamsulosin 0.4 mg po daily FEN * f: no standing fluids * E: hyponatremia hypervolemia on diuretics , continue to monitor * N: diabetic low NA diet PROPH * dvts: asa, plavix , coumadin * GI: no any meds proph DIPSO * Admit to ICU for monitoring We will continue to follow the patient. Thank you for this consultative opportunity. Visit type - Emergency Visit Emergency Visit: Yes ED Registration Date: 11/21/17 Care time: The patient presented to the Emergency Department on the above date and was hospitalized for further evaluation of their emergent condition. - New Patient This patient is new to me today: Yes Date on this admission: 11/21/17 - Critical Care Critical Care patient: Yes Total Critical Care Time (in minutes): 45 Critical Care Statement: The care of this patient involved high complexity decision making to prevent further life threatening deterioration of the patient 's condition and/or to evaluate & treat vital organ system(s) failure or risk of failure.
[2017-11-21] MEDS ORDERED: CALCIUM ACETATE 667 MG CAPSULE (FP) PO SCH (18:15)
[2017-11-21] MEDS ORDERED: ISOSORBIDE DINITRATE 20 MG TABLET (FP) PO SCH (18:45)
[2017-11-21] MEDS: FUROSEMIDE INJECTION 100 MG in DEXTROSE 5%-WATER - 40 ML IVPB SCH (20:00)
[2017-11-21] MEDS: WARFARIN NA 2 MG TABLET (UD) PO SCH (20:00)
[2017-11-21 21:12] LABS: ANION GAP 14 (8-16); CALCIUM 8.3 mg/dL (8.5-10.1); CHLORIDE 81 mmol/L (98-107); CO2 30 mmol/L (21-32); CREATININE 3.4 mg/dL (0.7-1.3); GLUCOSE,RANDOM 292 mg/dL (74-106); POTASSIUM 3.1 mmol/L (3.5-5.1); SODIUM 125 mmol/L (136-145)
[2017-11-21 21:14] LABS: BLOOD UREA NITROGEN 140 mg/dL (7-18)
--- NOTE | 2017-11-21 21:46 | HP ---
Admitting History and Physical - Primary Care Physician PCP: Coleman Hess - Admission Chief Complaint: CHF,. Hyponatremia,. Hematoma History of Present Illness: 77 y/o male of origin who is a known case of AMI in 08/17 who underwent placement of 5 stents and then developed AKF and has severe CHF. Also has DM, HTN, HLD and CKD ,anemia. This AM he slipped out of bed and fell and has a hematoma right buttock area but evaluation in the ED did not show any fractures. He had similar fall 2 weeks ago and was evaluated at [facility].. His diabetes is very labile with episodes of severe hypoglycemia after Insulin. 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 No: Addictions, Bipolar, Depression, Panic, Psychosis, Schizophrenia, Other Endocrine: Yes: Diabetes Mellitus. No: [place]'s Disease, Sumner's Disease, Diabetes Insipidus, Hyperparathyroidism, Hyperthyroidism, Hypothyroidism, Osteopenia, SIADH, Other - Past Surgical History Past Surgical History: Yes: Stent - Smoking History Smoking history: Never smoked Have you smoked in the past 12 months: No - Alcohol/Substance Use Hx Alcohol Use: No History of Substance Use: reports: None - Social History ADL: Independent History of Recent Travel: No Home Medications - Allergies Allergies/Adverse Reactions: Allergies Allergy/AdvReac Type Severity Reaction Status Date / Time No Known Allergies Allergy Verified 04/09/16 11:14 - Home Medications Home Medications: Ambulatory Orders Clopidogrel Bisulfate [Plavix -] 75 mg PO DAILY 09/03/17 Insulin Glargine,Hum.rec.anlog [Lantus Solostar PEN -] 35 units SQ DAILY Insulin Regular [Novolin R Vial -] 0 units SQ TID 09/03/17 Rosuvastatin [Crestor -] 10 mg PO DAILY 09/03/17 Tamsulosin HCl [Flomax -] 0.4 mg PO HS 09/03/17 Calcium Acetate [Phoslo -] 667 mg PO TIDCM 30 Days #90 capsule 09/14/17 Carvedilol [Coreg -] 12.5 mg PO BID tablet 09/14/17 Folic Acid - 1 mg PO DAILY 90 Days #90 tablet 09/14/17 Insulin Sliding Scale [Novolog Vial Sliding Scale -] 1 vial SQ TIDAC units hydrALAZINE HCL [Apresoline -] 25 mg PO BID tablet 09/14/17 Allopurinol [Zyloprim -] 300 mg PO DAILY 11/21/17 Aspirin [ASA -] 81 mg PO DAILY 11/21/17 Furosemide [Lasix -] 80 mg PO BID 11/21/17 Isosorbide Dinitrate [Isordil -] 20 mg PO BID 11/21/17 Metolazone 5 mg PO DAILY 11/21/17 Warfarin Sodium [Coumadin] 2 mg PO Q2D 11/21/17 Warfarin Sodium [Coumadin] 4 mg PO Q2D 11/21/17 Review of Systems - Review of Systems Constitutional: reports: Lethargy, Weakness Eyes: reports: No Symptoms HENT: reports: No Symptoms Neck: reports: No Symptoms Cardiovascular: reports: Edema, Shortness of Breath Respiratory: reports: Orthopnea, SOB on Exertion Gastrointestinal: reports: No Symptoms Genitourinary: reports: No Symptoms Musculoskeletal: reports: No Symptoms Integumentary: reports: No Symptoms Neurological: reports: Confusion, Incoordination, Unsteady Gait Endocrine: reports: No Symptoms Hematology/Lymphatic: reports: Easily Bruised Psychiatric: reports: Altered Sleep Pattern Physical Examination Vital Signs: Vital Signs Temperature 97.3 F L 11/21/17 18:00 Pulse Rate 73 11/21/17 20:29 Respiratory Rate 13 11/21/17 20:29 Blood Pressure 133/75 11/21/17 20:29 O2 Sat by Pulse Oximetry (%) 99 11/21/17 21:00 Constitutional: Yes: Moderate Distress Eyes: Yes: Conjunctiva Clear, EOM Intact HENT: Yes: WNL Neck: Yes: Supple Cardiovascular: Yes: Regular Rate and Rhythm, S1, S2 Respiratory: Yes: On Nasal O2, Rales Gastrointestinal: Yes: Normal Bowel Sounds, Soft, Distention Breast(s): Yes: WNL Musculoskeletal: Yes: WNL Extremities: Yes: WNL Edema: Yes Edema: LLE: 4+, RLE: 4+ Peripheral Pulses WNL: Yes Integumentary: Yes: Other (Huge hematoma right buttock area) Neurological: Yes: Alert, Cran Nerves II-XII Intact, Lethargy ...Motor Strength: WNL Psychiatric: Yes: Alert Labs: CBC, BMP 11/21/17 11:30 11/21/17 20:10 Imaging - Results Chest X-ray: Report Reviewed, Image Reviewed Cat Scan: Report Reviewed EKG: Report Reviewed, Image Reviewed Problem List - Problems (1) Acute on chronic systolic and diastolic heart failure, NYHA class 1 Code(s): I50.43 - ACUTE ON CHRONIC COMBINED SYSTOLIC AND DIASTOLIC HRT FAIL (2) Fluid overload Code(s): E87.70 - FLUID OVERLOAD, UNSPECIFIED Qualifiers: Hypervolemia type: unspecified Qualified Code(s): E87.70 - Fluid overload, unspecified (3) Hyponatremia Code(s): E87.1 - HYPO-OSMOLALITY AND HYPONATREMIA (4) Anemia Code(s): D64.9 - ANEMIA, UNSPECIFIED (5) BPH (benign prostatic hypertrophy) Code(s): N40.0 - BENIGN PROSTATIC HYPERPLASIA WITHOUT LOWER URINRY TRACT SYMP (6) Chronic renal disease Code(s): N18.9 - CHRONIC KIDNEY DISEASE, UNSPECIFIED Qualifiers: Chronic kidney disease stage: stage 4 (severe) Qualified Code(s): N18.4 - Chronic kidney disease, stage 4 (severe) (7) Diabetes 1.5, managed as type 1 Code(s): E13.9 - OTHER SPECIFIED DIABETES MELLITUS WITHOUT COMPLICATIONS (8) HTN (hypertension) Code(s): I10 - ESSENTIAL (PRIMARY) HYPERTENSION (9) Hx of heart artery stent Code(s): Z95.5 - PRESENCE OF CORONARY ANGIOPLASTY IMPLANT AND GRAFT (10) LV (left ventricular) mural thrombus Code(s): [id number] -
[2017-11-21] MEDS ORDERED: INSULIN SLIDING SCALE (NOVOLOG) 1 VIAL SQ SCH ×2 (22:00)
[2017-11-21] MEDS ORDERED: ROSUVASTATIN CA 10 MG TABLET (FP) PO SCH (22:00)
[2017-11-21] MEDS ORDERED: TAMSULOSIN HCL 0.4 MG CAP.ER.24H (FP) PO SCH (22:00)
--- NOTE | 2017-11-21 22:01 | CON.CARD ---
Consult Consult Specialty:: cardiology Reason for Consultation:: shortness of breath; hx SD - History of Present Illness Chief Complaint: Pt is anxious; short of breath when lying flat History of Present Illness: Mr. Davial is a 77 yo male (b. [place]) w/ pmh of AMI in Jul of this year with subsequent 5 stents during catheterization (and prior NSTEMI a few years ago, also resulting in PCI), systolic/diastolic CHF, HTN, HLD, IDDM, and known left ventricle thrombus (currently on plavix, ASA, and coumadin) who presents following fall earlier today. Per his , who is with him, he slid out of bed and fell on to his right buttock. Did not experience any LOC or dizziness and describes this as a mechanical fall. He has had increasing falls lately and was recently evaluated for similar fall on right side 11/11/17 in [facility]. 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 No: Addictions, Bipolar, Depression, Panic, Psychosis, Schizophrenia, Other Endocrine: Yes: Diabetes Mellitus. No: Chittenden's Disease, Brewster's Disease, Diabetes Insipidus, Hyperparathyroidism, Hyperthyroidism, Hypothyroidism, Osteopenia, SIADH, Other - Past Surgical History Past Surgical History: Yes: Stent - Alcohol/Substance Use Hx Alcohol Use: No History of Substance Use: reports: None - Smoking History Smoking history: Never smoked Have you smoked in the past 12 months: No - Social History Usual Living Arrangement: With Spouse ADL: Independent History of Recent Travel: No Home Medications - Allergies Allergies/Adverse Reactions: Allergies Allergy/AdvReac Type Severity Reaction Status Date / Time No Known Allergies Allergy Verified 04/09/16 11:14 - Home Medications Home Medications: Ambulatory Orders Clopidogrel Bisulfate [Plavix -] 75 mg PO DAILY 09/03/17 Insulin Glargine,Hum.rec.anlog [Lantus Solostar PEN -] 35 units SQ DAILY Insulin Regular [Novolin R Vial -] 0 units SQ TID 09/03/17 Rosuvastatin [Crestor -] 10 mg PO DAILY 09/03/17 Tamsulosin HCl [Flomax -] 0.4 mg PO HS 09/03/17 Calcium Acetate [Phoslo -] 667 mg PO TIDCM 30 Days #90 capsule 09/14/17 Carvedilol [Coreg -] 12.5 mg PO BID tablet 09/14/17 Folic Acid - 1 mg PO DAILY 90 Days #90 tablet 09/14/17 Insulin Sliding Scale [Novolog Vial Sliding Scale -] 1 vial SQ TIDAC units hydrALAZINE HCL [Apresoline -] 25 mg PO BID tablet 09/14/17 Allopurinol [Zyloprim -] 300 mg PO DAILY 11/21/17 Aspirin [ASA -] 81 mg PO DAILY 11/21/17 Furosemide [Lasix -] 80 mg PO BID 11/21/17 Isosorbide Dinitrate [Isordil -] 20 mg PO BID 11/21/17 Metolazone 5 mg PO DAILY 11/21/17 Warfarin Sodium [Coumadin] 2 mg PO Q2D 11/21/17 Warfarin Sodium [Coumadin] 4 mg PO Q2D 11/21/17 Family Disease History - Family Disease History Family History: Denies Review of Systems - Review of Systems Constitutional: reports: Weakness Eyes: reports: No Symptoms HENT: reports: No Symptoms Neck: reports: No Symptoms Cardiovascular: reports: Shortness of Breath Respiratory: reports: SOB Gastrointestinal: reports: Bloating Genitourinary: reports: No Symptoms Breasts: reports: No Symptoms Reported Musculoskeletal: reports: Muscle Weakness Integumentary: reports: Bruising Neurological: reports: Weakness Endocrine: reports: No Symptoms Psychiatric: reports: Altered Sleep Pattern, Anxiety - Risk Factors Known Risk Factors: Yes: Age, Diabetes Mellitus, Gender, Hypercholesterolemia, Hypertension, Physical Inactivity, Prior SD /Emb Stroke, Other (RV thrombus) Vital Signs: Vital Signs Temperature 97.3 F L 11/21/17 18:00 Pulse Rate 73 11/21/17 20:29 Respiratory Rate 13 11/21/17 20:29 Blood Pressure 133/75 11/21/17 20:29 O2 Sat by Pulse Oximetry (%) 99 11/21/17 21:00 Constitutional: Yes: Anxious, Mild Distress Eyes: Yes: WNL HENT: Yes: WNL Neck: Yes: WNL Respiratory: Yes: Diminished Gastrointestinal: Yes: Soft, Distention. No: Tenderness Renal/: No: Anuria Cardiovascular: Yes: Regular Rate and Rhythm JVD: Yes Carotid Bruit: No PMI: Displaced Heart Sounds: Yes: S1, Split S2 Murmur: Yes: Systolic Murmur, Grade 2 Musculoskeletal: Yes: Muscle Weakness Edema: Yes Edema: LLE: 3+, RLE: 3+ Peripheral Pulses WNL: Yes Integumentary: Yes: Bruising (large area of mottled skin changes posterolateral right hip (tense)) Neurological: Yes: Alert, Weakness Psychiatric: Yes: Alert - Other Data Labs, Other Data: CBC, BMP 11/21/17 11:30 11/21/17 20:10 INR, PTT INR 1.31 (0.82-1.09) H 11/21/17 11:30 Troponin, BNP 11/21/17 11/21/17 11:26 11:30 Troponin I < 0.02 D B-Natriuretic Peptide 7918.00 H Troponin, BNP 11/21/17 11/21/17 11:26 11:30 Troponin I < 0.02 D B-Natriuretic Peptide 7918.00 H Echo: Report Reviewed (09/14: mildly reduced LVEF; inferoposterior and apical hypokinesis; small pericardial effusion; large apical thrombus; mild NM; moderate MR; unable to assess TR) Ejection Fraction %: LVEF > or = 40 % Imaging - Results Chest X-ray: Image Reviewed (enlarged heart; moderate CHF) EKG: Image Reviewed (NSR: LAD; poor R wave progression) Problem List - Problems (1) Acute on chronic systolic and diastolic heart failure, NYHA class 1 Assessment/Plan: +JVD; bilateral rales; BNP 7.918. TNI < 0.02. On carvedilol, hydralazine+isordil. Now on furosemide IV drip. (ACEI/ARB/and RAAS agent use precluded due to poor renal function presently). F/u BUN/Cr, electrolytes, Is and Os, daily weight. Code(s): I50.43 - ACUTE ON CHRONIC COMBINED SYSTOLIC AND DIASTOLIC HRT FAIL (2) Fall Assessment/Plan: Large right LE hip hematoma. Pt has had multiple falls; rhabdomyolysis may have occurred, further compromising pt's renal function. CK now 137. Hb 8.3. BUN 137/3.6 Cr. Code(s): W19.XXXA - UNSPECIFIED FALL, INITIAL ENCOUNTER Qualifiers: Encounter type: initial encounter Qualified Code(s): W19.XXXA - Unspecified fall, initial encounter (3) Fluid overload Code(s): E87.70 - FLUID OVERLOAD, UNSPECIFIED Qualifiers: Hypervolemia type: unspecified Qualified Code(s): E87.70 - Fluid overload, unspecified (4) Hyponatremia Assessment/Plan: Correction per head tennis professional; presently on IV furosemide. Regarding other electrolytes: Keep K 4-4.5 Mg 2-2.3 PO4 2.5-3.5 Code(s): E87.1 - HYPO-OSMOLALITY AND HYPONATREMIA (5) Anemia Code(s): D64.9 - ANEMIA, UNSPECIFIED (6) Anxiety and depression Code(s): F41.8 - OTHER SPECIFIED ANXIETY DISORDERS (7) BPH (benign prostatic hypertrophy) Code(s): N40.0 - BENIGN PROSTATIC HYPERPLASIA WITHOUT LOWER URINRY TRACT SYMP (8) CVA (cerebral infarction) Code(s): I63.9 - CEREBRAL INFARCTION, UNSPECIFIED (9) Diabetes mellitus Code(s): E11.9 - TYPE 2 DIABETES MELLITUS WITHOUT COMPLICATIONS Qualifiers: Diabetes mellitus complication status: with ophthalmic complications Diabetes mellitus complication detail: with diabetic retinopathy (10) HTN (hypertension) Code(s): I10 - ESSENTIAL (PRIMARY) HYPERTENSION (11) Hx of heart artery stent Assessment/Plan: s/p SD x 2; five coronary stents placed 07/2017 at [facility]. Continue dual antiplatetlet Rx. Pt is also on wafarin for apical thrombus (INR presently subtherapeutic); follow stool quaiac, Hb closely in view of the higher risk of bleed while on this "triple therapy". Aggressive control of lipids (on statin) while simultaneously following LFTs ( AST presently elevated nearly x3). Code(s): Z95.5 - PRESENCE OF CORONARY ANGIOPLASTY IMPLANT AND GRAFT (12) LV (left ventricular) mural thrombus Assessment/Plan: On warfarin. Code(s): [id number] - (13) Renal dysfunction Assessment/Plan: Recevied IVP furosemide in ER; now on IV drip. F/u Is and Os, electrolytes. Per head tennis professional, may require hemodialysis if response to above is inadequate. Code(s): N28.9 - DISORDER OF KIDNEY AND URETER, UNSPECIFIED (14) Status post myocardial infarction Code(s): I25.2 - OLD MYOCARDIAL INFARCTION (15) Syncope Code(s): R55 - SYNCOPE AND COLLAPSE (16) Sleep apnea Assessment/Plan: Code(s): G47.30 - SLEEP APNEA, UNSPECIFIED (17) Hyperlipidemia Assessment/Plan: On rosuvastatin 10 mg qd; LDL cholesterol 70 mg/dL on 08/2017. AST elevated nearly x 3; f/u levels. Code(s): E78.5 - HYPERLIPIDEMIA, UNSPECIFIED
[2017-11-21] MEDS: hydrALAZINE HCL 25 MG TABLET (FP) PO SCH (22:30)
[2017-11-21] MEDS: CARVEDILOL 12.5 MG TABLET (FP) PO SCH (22:32)
[2017-11-21] MEDS: TAMSULOSIN HCL 0.4 MG CAP.ER.24H (FP) PO SCH (22:32)
[2017-11-22] MEDS: KCL 10 MEQ IVPB 10 MEQ/100 ML INFUS.BAG IVPB SCH ×2 (02:30→03:50)
[2017-11-22] MEDS: INSULIN SLIDING SCALE (NOVOLOG) 1 VIAL SQ SCH ×4 (06:22→18:44)
[2017-11-22 06:44] LABS: BASO % 0.2 % (0-2.0); EOS % 0.9 % (0-4.5); HEMATOCRIT 25.3 % (35.4-49); HEMOGLOBIN 8.2 GM/dL (11.7-16.9); LYMPH % 8.9 % (8-40); MCH 25.1 pg (25.7-33.7); MCHC 32.3 g/dl (32.0-35.9); MEAN CELL VOLUME 77.5 fl (80-96); MEAN PLT VOLUME 9.7 fl (7.5-11.1); MONO % 9.1 % (3.8-10.2); NEUT % 80.9 % (42.8-82.8); PLATELET COUNT 189 K/MM3 (134-434); RBC 3.26 M/mm3 (4.00-5.60); WHITE BLOOD COUNT 6.1 K/mm3 (4.0-10.0)
[2017-11-22] MEDS ORDERED: INSULIN (LEVEMIR) 100 UNITS/ML UNITS SQ SCH (07:00)
[2017-11-22 07:16] LABS: ALBUMIN 2.6 g/dl (3.4-5.0); ANION GAP 11 (8-16); CALCIUM 8.3 mg/dL (8.5-10.1); CHLORIDE 82 mmol/L (98-107); CO2 35 mmol/L (21-32); CREATININE 3.5 mg/dL (0.7-1.3); GLUCOSE,RANDOM 235 mg/dL (74-106); PHOSPHOROUS 5.2 mg/dL (2.5-4.9); POTASSIUM 3.5 mmol/L (3.5-5.1); SGOT/AST 42 U/L (15-37); SGPT/ALT 61 U/L (12-78); SODIUM 128 mmol/L (136-145)
[2017-11-22 07:21] LABS: ALK PHOS 188 U/L (45-117); BILIRUBIN,TOTAL 0.9 mg/dL (0.2-1.0); MAGNESIUM 2.8 mg/dL (1.8-2.4)
[2017-11-22 07:25] LABS: BLOOD UREA NITROGEN 134 mg/dL (7-18)
[2017-11-22] MEDS ORDERED: SODIUM CHLORIDE 250 ML IV PRN ×2 (08:14→14:00)
[2017-11-22] MEDS ORDERED: ALBUMIN HUMAN 25% 12.5 GM/50 ML VIAL IVPB SCH (08:15)
[2017-11-22] MEDS: CALCIUM ACETATE 667 MG CAPSULE (FP) PO SCH ×3 (08:39→17:12)
--- NOTE | 2017-11-22 08:40 | PN ---
Progress Note, Physician History of Present Illness: Mr. Davila is a 77 yo male (b. [place]) w/ pmh of AMI in Jul of this year with subsequent 5 stents during catheterization (and prior NSTEMI a few years ago, also resulting in PCI), systolic/diastolic CHF, HTN, HLD, IDDM, and known left ventricle thrombus (currently on plavix, ASA, and coumadin) who presents following fall earlier today. Per his , who is with him, he slid out of bed and fell on to his right buttock. Did not experience any LOC or dizziness and describes this as a mechanical fall. He has had increasing falls lately and was recently evaluated for similar fall on right side 11/11/17 in [facility]. - Current Medication List Current Medications: Active Medications Albumin Human (Albumin Human 25%) 12.5 gm IVPB Q30M [facility] Allopurinol (Zyloprim -) 300 mg PO DAILY [facility] Aspirin (Asa -) 81 mg PO DAILY [facility] Calcium Acetate (Phoslo -) 667 mg PO TIDCM [facility] Last Admin: 11/22/17 08:39 Dose: 667 mg Carvedilol (Coreg -) 12.5 mg PO BID [facility] Last Admin: 11/21/17 22:32 Dose: 12.5 mg Clopidogrel Bisulfate (Plavix -) 75 mg PO DAILY [facility] Folic Acid (Folic Acid -) 1 mg PO DAILY [facility] Hydralazine HCl (Apresoline -) 25 mg PO BID [facility] Last Admin: 11/21/17 22:30 Dose: 25 mg Furosemide 100 mg/ Dextrose 50 mls @ 2.5 mls/hr IVPB TITR [facility]; Protocol Last Admin: 11/21/17 20:00 Dose: 5 mg/hr, 2.5 mls/hr Sodium Chloride (Normal Saline -) 250 mls @ 3,000 mls/hr IV PRN PRN PRN Reason: Hypotension during Dialysis Stop: 11/23/17 08:15 Insulin Aspart (Novolog Vial Sliding Scale -) 1 vial SQ TIDAC [facility]; Protocol Last Admin: 11/22/17 06:22 Dose: 4 units Isosorbide Dinitrate (Isordil -) 20 mg PO DAILY [facility] Metolazone (Zaroxolyn -) 5 mg PO DAILY [facility] Rosuvastatin Calcium (Crestor -) 10 mg PO HS [facility] Tamsulosin HCl (Flomax -) 0.4 mg PO HS [facility] Last Admin: 11/21/17 22:32 Dose: 0.4 mg Warfarin Sodium (Coumadin -) 2 mg PO [email or web address] [facility] Warfarin Sodium (Coumadin -) 4 mg PO [email or web address]@1800 [facility] Last Admin: 11/21/17 20:00 Dose: 4 mg - Objective Vital Signs: Vital Signs Temperature 97.4 F L 11/22/17 02:00 Pulse Rate 75 11/22/17 06:00 Respiratory Rate 17 11/22/17 06:00 Blood Pressure 124/83 11/22/17 06:00 O2 Sat by Pulse Oximetry (%) 99 11/21/17 21:00 Eyes: Yes: WNL, Conjunctiva Clear, EOM Intact HENT: Yes: WNL, Atraumatic, Normocephalic Neck: Yes: WNL, Supple, Trachea Midline Cardiovascular: Yes: WNL, Regular Rate and Rhythm Respiratory: Yes: WNL, Regular, CTA Bilaterally Gastrointestinal: Yes: WNL, Normal Bowel Sounds Genitourinary: Yes: WNL Musculoskeletal: Yes: WNL Extremities: Yes: WNL Edema: Yes Edema: LLE: 2+, RLE: 2+ Integumentary: Yes: WNL Neurological: Yes: WNL, Alert, Oriented ...Motor Strength: WNL Psychiatric: Yes: WNL Labs: CBC, BMP 11/22/17 05:35 11/22/17 05:35 INR, PTT INR 1.31 (0.82-1.09) H 11/21/17 11:30 Laboratory Tests 11/21/17 11/21/17 11/21/17 11:26 11:30 11:30 WBC 6.7 D RBC 3.41 L Hgb 8.3 L D Hct 26.3 L D MCV 77.0 L MCH 24.4 L MCHC 31.7 L RDW 20.0 H Plt Count 210 D MPV 10.2 Neutrophils % 78.7 Lymphocytes % 9.9 D Monocytes % 9.2 Eosinophils % 1.3 Basophils % 0.9 Nucleated RBC % 0 PT with INR 14.80 H INR 1.31 H PTT (Actin FS) 28.5 Sodium Potassium Chloride Carbon Dioxide Anion Gap BUN Creatinine Creat Clearance w eGFR Random Glucose Calcium Phosphorus Magnesium Total Bilirubin AST ALT Alkaline Phosphatase Creatine Kinase 129 Troponin I < 0.02 D B-Natriuretic Peptide Total Protein Albumin TSH Urine Color Urine Appearance Urine pH Ur Specific [place] Urine Protein Urine Glucose (UA) Urine Ketones Urine Blood Urine Nitrite Urine Bilirubin Urine Urobilinogen Ur Leukocyte Esterase Urine WBC (Auto) Urine RBC (Auto) Ur Epithelial Cells Hyaline Casts Urine Mucus 11/21/17 11/21/17 11/21/17 11:30 11:30 20:10 WBC RBC Hgb Hct MCV MCH MCHC RDW Plt Count MPV Neutrophils % Lymphocytes % Monocytes % Eosinophils % Basophils % Nucleated RBC % PT with INR INR PTT (Actin FS) Sodium 124 L* 125 L Potassium 3.5 3.1 L Chloride 80 L 81 L Carbon Dioxide 30 30 Anion Gap 14 14 BUN 137 H* D 140 H* Creatinine 3.6 H 3.4 H Creat Clearance w eGFR 16.48 Random Glucose 241 H 292 H D Calcium 8.1 L 8.3 L Phosphorus Magnesium Total Bilirubin 0.9 D AST 94 H D ALT 67 D Alkaline Phosphatase 208 H D Creatine Kinase Troponin I B-Natriuretic Peptide 7918.00 H Total Protein 6.3 L Albumin 2.7 L TSH Urine Color Yellow Urine Appearance Clear Urine pH 5.0 Ur Specific [place] 1.011 Urine Protein 1+ H Urine Glucose (UA) Negative Urine Ketones Negative Urine Blood Negative Urine Nitrite Negative Urine Bilirubin Negative Urine Urobilinogen Negative Ur Leukocyte Esterase Negative Urine WBC (Auto) 4 Urine RBC (Auto) <1 Ur Epithelial Cells Rare Hyaline Casts 36 Urine Mucus Rare 11/21/17 11/21/17 11/22/17 21:41 21:41 05:35 WBC 6.1 RBC 3.26 L Hgb 8.2 L Hct 25.3 L MCV 77.5 L MCH 25.1 L MCHC 32.3 RDW 20.0 H Plt Count 189 MPV 9.7 Neutrophils % 80.9 Lymphocytes % 8.9 Monocytes % 9.1 Eosinophils % 0.9 Basophils % 0.2 Nucleated RBC % 0 PT with INR INR PTT (Actin FS) Sodium Potassium Chloride Carbon Dioxide Anion Gap BUN Creatinine Creat Clearance w eGFR Random Glucose Calcium Phosphorus Magnesium 2.7 H Total Bilirubin AST ALT Alkaline Phosphatase Creatine Kinase Troponin I B-Natriuretic Peptide Total Protein Albumin TSH 5.99 H D Urine Color Urine Appearance Urine pH Ur Specific [place] Urine Protein Urine Glucose (UA) Urine Ketones Urine Blood Urine Nitrite Urine Bilirubin Urine Urobilinogen Ur Leukocyte Esterase Urine WBC (Auto) Urine RBC (Auto) Ur Epithelial Cells Hyaline Casts Urine Mucus 11/22/17 05:35 WBC RBC Hgb Hct MCV MCH MCHC RDW Plt Count MPV Neutrophils % Lymphocytes % Monocytes % Eosinophils % Basophils % Nucleated RBC % PT with INR INR PTT (Actin FS) Sodium 128 L Potassium 3.5 Chloride 82 L Carbon Dioxide 35 H Anion Gap 11 BUN 134 H* Creatinine 3.5 H Creat Clearance w eGFR 17.02 Random Glucose 235 H Calcium 8.3 L Phosphorus 5.2 H Magnesium 2.8 H Total Bilirubin 0.9 AST 42 H D ALT 61 Alkaline Phosphatase 188 H Creatine Kinase Troponin I B-Natriuretic Peptide Total Protein 6.0 L Albumin 2.6 L TSH Urine Color Urine Appearance Urine pH Ur Specific [place] Urine Protein Urine Glucose (UA) Urine Ketones Urine Blood Urine Nitrite Urine Bilirubin Urine Urobilinogen Ur Leukocyte Esterase Urine WBC (Auto) Urine RBC (Auto) Ur Epithelial Cells Hyaline Casts Urine Mucus Assessment/Plan Echo: Report Reviewed (09/14: mildly reduced LVEF; inferoposterior and apical hypokinesis; small pericardial effusion; large apical thrombus; mild NH; moderate MR; unable to assess TR) Ejection Fraction %: LVEF > or = 40 % Imaging - Results Chest X-ray: Image Reviewed (enlarged heart; moderate CHF) EKG: Image Reviewed (NSR: LAD; poor R wave progression) Problem List - Problems (1) Acute on chronic systolic and diastolic heart failure, NYHA class 1 Assessment/Plan: +JVD; bilateral rales; BNP 7.918. TNI < 0.02. On carvedilol, hydralazine+isordil. Now on furosemide IV drip. (ACEI/ARB/and RAAS agent use precluded due to poor renal function presently). F/u BUN/Cr, electrolytes, Is and Os, daily weight. Code(s): I50.43 - ACUTE ON CHRONIC COMBINED SYSTOLIC AND DIASTOLIC HRT FAIL (2) Fall Assessment/Plan: Large right LE hip hematoma. Pt has had multiple falls; rhabdomyolysis may have occurred, further compromising pt's renal function. CK now 137. Hb 8.3. BUN 137/3.6 Cr. Code(s): W19.XXXA - UNSPECIFIED FALL, INITIAL ENCOUNTER Qualifiers: Encounter type: initial encounter Qualified Code(s): W19.XXXA - Unspecified fall, initial encounter (3) Fluid overload Code(s): E87.70 - FLUID OVERLOAD, UNSPECIFIED Qualifiers: Hypervolemia type: unspecified Qualified Code(s): E87.70 - Fluid overload, unspecified (4) Hyponatremia Assessment/Plan: Correction per supply controller; presently on IV furosemide. Regarding other electrolytes: Keep K 4-4.5 Mg 2-2.3 PO4 2.5-3.5 Code(s): E87.1 - HYPO-OSMOLALITY AND HYPONATREMIA (5) Anemia Code(s): D64.9 - ANEMIA, UNSPECIFIED (6) Anxiety and depression Code(s): F41.8 - OTHER SPECIFIED ANXIETY DISORDERS (7) BPH (benign prostatic hypertrophy) Code(s): N40.0 - BENIGN PROSTATIC HYPERPLASIA WITHOUT LOWER URINRY TRACT SYMP (8) CVA (cerebral infarction) Code(s): I63.9 - CEREBRAL INFARCTION, UNSPECIFIED (9) Diabetes mellitus Code(s): E11.9 - TYPE 2 DIABETES MELLITUS WITHOUT COMPLICATIONS Qualifiers: Diabetes mellitus complication status: with ophthalmic complications Diabetes mellitus complication detail: with diabetic retinopathy (10) HTN (hypertension) Code(s): I10 - ESSENTIAL (PRIMARY) HYPERTENSION (11) Hx of heart artery stent Assessment/Plan: s/p DC x 2; five coronary stents placed 07/2017 at [facility]. Continue dual antiplatetlet Rx. Pt is also on wafarin for apical thrombus (INR presently subtherapeutic); follow stool quaiac, Hb closely in view of the higher risk of bleed while on this "triple therapy". Aggressive control of lipids (on statin) while simultaneously following LFTs ( AST presently elevated nearly x3). Code(s): Z95.5 - PRESENCE OF CORONARY ANGIOPLASTY IMPLANT AND GRAFT (12) LV (left ventricular) mural thrombus Assessment/Plan: On warfarin. Code(s): [id number] - (13) Renal dysfunction Assessment/Plan: Recevied IVP furosemide in ER; now on IV drip. F/u Is and Os, electrolytes. Per supply controller, may require hemodialysis if response to above is inadequate. Code(s): N28.9 - DISORDER OF KIDNEY AND URETER, UNSPECIFIED (14) Status post myocardial infarction Code(s): I25.2 - OLD MYOCARDIAL INFARCTION (15) Syncope Code(s): R55 - SYNCOPE AND COLLAPSE (16) Sleep apnea Assessment/Plan: Code(s): G47.30 - SLEEP APNEA, UNSPECIFIED (17) Hyperlipidemia Assessment/Plan: On rosuvastatin 10 mg qd; LDL cholesterol 70 mg/dL on 08/2017. AST elevated nearly x 3; f/u levels. Code(s): E78.5 - HYPERLIPIDEMIA, UNSPECIFIED cc time spent 36 min
--- NOTE | 2017-11-22 08:47 | PN ---
Progress Note (short form) - Note Progress Note: Pulm/CCM Pt seen and examined in ICU 24Hr: -good Uop with lasix gtt but BUN still >130 -Nephrology would like to dialyze today -awake alert hemodynamically stable today -awaiting to come by for consent for cath Active Medications Albumin Human (Albumin Human 25%) 12.5 gm IVPB Q30M [facility] Allopurinol (Zyloprim -) 300 mg PO DAILY [facility] Aspirin (Asa -) 81 mg PO DAILY [facility] Calcium Acetate (Phoslo -) 667 mg PO TIDCM [facility] Last Admin: 11/22/17 08:39 Dose: 667 mg Carvedilol (Coreg -) 12.5 mg PO BID [facility] Last Admin: 11/21/17 22:32 Dose: 12.5 mg Clopidogrel Bisulfate (Plavix -) 75 mg PO DAILY [facility] Folic Acid (Folic Acid -) 1 mg PO DAILY [facility] Hydralazine HCl (Apresoline -) 25 mg PO BID [facility] Last Admin: 11/21/17 22:30 Dose: 25 mg Furosemide 100 mg/ Dextrose 50 mls @ 2.5 mls/hr IVPB TITR [facility]; Protocol Last Admin: 11/21/17 20:00 Dose: 5 mg/hr, 2.5 mls/hr Sodium Chloride (Normal Saline -) 250 mls @ 3,000 mls/hr IV PRN PRN PRN Reason: Hypotension during Dialysis Stop: 11/23/17 08:15 Insulin Aspart (Novolog Vial Sliding Scale -) 1 vial SQ TIDAC [facility]; Protocol Last Admin: 11/22/17 06:22 Dose: 4 units Isosorbide Dinitrate (Isordil -) 20 mg PO DAILY [facility] Metolazone (Zaroxolyn -) 5 mg PO DAILY [facility] Rosuvastatin Calcium (Crestor -) 10 mg PO HS [facility] Tamsulosin HCl (Flomax -) 0.4 mg PO HS [facility] Last Admin: 11/21/17 22:32 Dose: 0.4 mg Warfarin Sodium (Coumadin -) 2 mg PO [email or web address] [facility] Warfarin Sodium (Coumadin -) 4 mg PO MoWeFr@1800 [facility] Last Admin: 11/21/17 20:00 Dose: 4 mg CBCD WBC 6.1 K/mm3 (4.0-10.0) 11/22/17 05:35 RBC 3.26 M/mm3 (4.00-5.60) L 11/22/17 05:35 Hgb 8.2 GM/dL (11.7-16.9) L 11/22/17 05:35 Hct 25.3 % (35.4-49) L 11/22/17 05:35 MCV 77.5 fl (80-96) L 11/22/17 05:35 MCHC 32.3 g/dl (32.0-35.9) 11/22/17 05:35 RDW 20.0 % (11.9-15.9) H 11/22/17 05:35 Plt Count 189 K/MM3 (134-434) 11/22/17 05:35 MPV 9.7 fl (7.5-11.1) 11/22/17 05:35 CMP Sodium 128 mmol/L (136-145) L 11/22/17 05:35 Potassium 3.5 mmol/L (3.5-5.1) 11/22/17 05:35 Chloride 82 mmol/L (98-107) L 11/22/17 05:35 Carbon Dioxide 35 mmol/L (21-32) H 11/22/17 05:35 Anion Gap 11 (8-16) 11/22/17 05:35 BUN 134 mg/dL (7-18) H* 11/22/17 05:35 Creatinine 3.5 mg/dL (0.7-1.3) H 11/22/17 05:35 Creat Clearance w eGFR 17.02 (>60) 11/22/17 05:35 Random Glucose 235 mg/dL (74-106) H 11/22/17 05:35 Calcium 8.3 mg/dL (8.5-10.1) L 11/22/17 05:35 Total Bilirubin 0.9 mg/dL (0.2-1.0) 11/22/17 05:35 AST 42 U/L (15-37) H D 11/22/17 05:35 ALT 61 U/L (12-78) 11/22/17 05:35 Alkaline Phosphatase 188 U/L (45-117) H 11/22/17 05:35 Total Protein 6.0 g/dl (6.4-8.2) L 11/22/17 05:35 Albumin 2.6 g/dl (3.4-5.0) L 11/22/17 05:35 CARDIAC ENZYMES Creatine Kinase 129 IU/L (39-308) 11/21/17 11:26 Troponin I < 0.02 ng/ml (0.00-0.05) D 11/21/17 11:26 INR, PTT INR 1.31 (0.82-1.09) H 11/21/17 11:30 Problem List - Problems (1) Fall Code(s): W19.XXXA - UNSPECIFIED FALL, INITIAL ENCOUNTER Qualifiers: Encounter type: initial encounter Qualified Code(s): W19.XXXA - Unspecified fall, initial encounter (2) Fluid overload Code(s): E87.70 - FLUID OVERLOAD, UNSPECIFIED Qualifiers: Hypervolemia type: unspecified Qualified Code(s): E87.70 - Fluid overload, unspecified (3) Hyponatremia Code(s): E87.1 - HYPO-OSMOLALITY AND HYPONATREMIA (4) Acute on chronic systolic CHF (congestive heart failure) Code(s): I50.23 - ACUTE ON CHRONIC SYSTOLIC (CONGESTIVE) HEART FAILURE (5) Acute renal failure Code(s): N17.9 - ACUTE KIDNEY FAILURE, UNSPECIFIED (6) Anemia Code(s): D64.9 - ANEMIA, UNSPECIFIED (7) BPH (benign prostatic hypertrophy) Code(s): N40.0 - BENIGN PROSTATIC HYPERPLASIA WITHOUT LOWER URINRY TRACT SYMP (8) Chronic renal disease Code(s): N18.9 - CHRONIC KIDNEY DISEASE, UNSPECIFIED Qualifiers: Chronic kidney disease stage: stage 4 (severe) Qualified Code(s): N18.4 - Chronic kidney disease, stage 4 (severe) (9) Diabetes mellitus Code(s): E11.9 - TYPE 2 DIABETES MELLITUS WITHOUT COMPLICATIONS Qualifiers: Diabetes mellitus complication status: with ophthalmic complications Diabetes mellitus complication detail: with diabetic retinopathy (10) HTN (hypertension) Code(s): I10 - ESSENTIAL (PRIMARY) HYPERTENSION (11) Hx of heart artery stent Code(s): Z95.5 - PRESENCE OF CORONARY ANGIOPLASTY IMPLANT AND GRAFT Assessment/Plan HD todayd per Renal Strict I&O O2 as needed 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
--- NOTE | 2017-11-22 08:54 | EKG ---
Test Reason : Blood Pressure : / mmHG Vent. Rate : 082 BPM Atrial Rate : 082 BPM P-R Int : 208 ms QRS Dur : 096 ms QT Int : 418 ms P-R-T Axes : 033 -64 098 degrees QTc Int : 488 ms POOR DATA QUALITY, INTERPRETATION MAY BE ADVERSELY AFFECTED SINUS RHYTHM WITH PREMATURE ATRIAL COMPLEXES LEFT AXIS DEVIATION LEFT VENTRICULAR HYPERTROPHY WITH REPOLARIZATION ABNORMALITY INFERIOR INFARCT (CITED ON OR BEFORE 09-APR-2016) ANTEROLATERAL INFARCT (CITED ON OR BEFORE 02-JAN-2015) ABNORMAL ECG WHEN COMPARED WITH ECG OF 12-SEP-2017 14:44, PREMATURE ATRIAL COMPLEXES ARE NOW PRESENT Confirmed by STEPHEN DEL RIO MD ([id number]) on 11/22/2017 8:54:00 AM Referred By: Confirmed By:STEPHEN DEL RIO MD
[2017-11-22] MEDS ORDERED: PT OWN MED DRAWER 7, Y5N ONE (09:22)
[2017-11-22] MEDS: hydrALAZINE HCL 25 MG TABLET (FP) PO SCH ×2 (09:29→21:45)
[2017-11-22] MEDS: METOLAZONE 5 MG TABLET PO SCH (09:31)
[2017-11-22] MEDS: FOLIC ACID 1 MG TABLET (FP) PO SCH (09:31)
[2017-11-22] MEDS: CARVEDILOL 12.5 MG TABLET (FP) PO SCH ×2 (09:31→21:45)
[2017-11-22] MEDS: ASPIRIN 81 MG CHEWABLE TABLETS PO SCH (09:31)
[2017-11-22] MEDS: ISOSORBIDE DINITRATE 20 MG TABLET (FP) PO SCH (09:32)
[2017-11-22] MEDS: ALLOPURINOL 100 MG TABLET (FP) PO SCH (09:32)
[2017-11-22] MEDS: CLOPIDOGREL BISULFATE 75 MG TABLET (FP) PO SCH (09:32)
[2017-11-22] MEDS ORDERED: LIDOCAINE HCL 1%, 10 MG/ML (20ML VIAL) ONE (12:00)
[2017-11-22] MEDS ORDERED: LIDOCAINE HCL 1%, 10 MG/ML (50 mL VIAL) SQ ONE (12:30)
--- NOTE | 2017-11-22 13:34 | PROC ---
Central Line Insertion Indication: Other (HD cath) Risks and Benefits Explained: Yes Consent on Chart: Yes Central Line: Dialysis Cath, Tri Lumen Anesthesia: 1% Lidocaine Sterile Technique: Yes Ultrasound Guided Assistance: Yes Position: Right Internal Jugular Post Insertion: Yes: Bilateral Breath Sounds Sterile Dressing Applied: Yes
[2017-11-22] MEDS: FUROSEMIDE INJECTION 100 MG in DEXTROSE 5%-WATER - 40 ML IVPB SCH ×2 (15:00→19:30)
[2017-11-22] MEDS: ALBUMIN HUMAN 25% 12.5 GM/50 ML VIAL IVPB SCH ×4 (16:00→17:30)
[2017-11-22] MEDS: WARFARIN NA 2 MG TABLET (UD) PO SCH (17:12)
[2017-11-22] MEDS: TAMSULOSIN HCL 0.4 MG CAP.ER.24H (FP) PO SCH (21:45)
[2017-11-22] MEDS: ROSUVASTATIN CA 10 MG TABLET (FP) PO SCH (22:35)
--- NOTE | 2017-11-22 23:46 | PN ---
Progress Note, Physician History of Present Illness: c/o SOB and swelling of feet. As his renal function was severely affected and his CHF was quite severe it was decided to proceed with placement of a Shiley catheter and hemodialysis was started this afternoon. - Current Medication List Current Medications: Active Medications Allopurinol (Zyloprim -) 300 mg PO DAILY [facility] Last Admin: 11/22/17 09:32 Dose: 300 mg Aspirin (Asa -) 81 mg PO DAILY [facility] Last Admin: 11/22/17 09:31 Dose: 81 mg Calcium Acetate (Phoslo -) 667 mg PO TIDCM [facility] Last Admin: 11/22/17 17:12 Dose: 667 mg Carvedilol (Coreg -) 12.5 mg PO BID [facility] Last Admin: 11/22/17 21:45 Dose: 12.5 mg Clopidogrel Bisulfate (Plavix -) 75 mg PO DAILY [facility] Last Admin: 11/22/17 09:32 Dose: 75 mg Folic Acid (Folic Acid -) 1 mg PO DAILY [facility] Last Admin: 11/22/17 09:31 Dose: 1 mg Hydralazine HCl (Apresoline -) 25 mg PO BID [facility] Last Admin: 11/22/17 21:45 Dose: 25 mg Sodium Chloride (Normal Saline -) 250 mls @ 3,000 mls/hr IV PRN PRN PRN Reason: Hypotension during Dialysis Furosemide 100 mg/ Dextrose 50 mls @ 2.5 mls/hr IVPB TITR [facility]; Protocol Last Admin: 11/22/17 19:30 Dose: 5 mg/hr, 2.5 mls/hr Insulin Aspart (Novolog Vial Sliding Scale -) 1 vial SQ TIDAC [facility]; Protocol Last Admin: 11/22/17 18:44 Dose: Not Given Isosorbide Dinitrate (Isordil -) 20 mg PO DAILY [facility] Last Admin: 11/22/17 09:32 Dose: 20 mg Metolazone (Zaroxolyn -) 5 mg PO DAILY [facility] Last Admin: 11/22/17 09:31 Dose: 5 mg Rosuvastatin Calcium (Crestor -) 10 mg PO HS [facility] Last Admin: 11/22/17 22:35 Dose: 10 mg Tamsulosin HCl (Flomax -) 0.4 mg PO HS [facility] Last Admin: 11/22/17 21:45 Dose: 0.4 mg Warfarin Sodium (Coumadin -) 2 mg PO [email or web address] [facility] Last Admin: 11/22/17 17:12 Dose: 2 mg Warfarin Sodium (Coumadin -) 4 mg PO MoWeFr@1800 [facility] Last Admin: 11/21/17 20:00 Dose: 4 mg - Objective Vital Signs: Vital Signs Temperature 97.6 F 11/22/17 18:10 Pulse Rate 75 11/22/17 20:30 Respiratory Rate 18 11/22/17 20:30 Blood Pressure 119/83 11/22/17 20:30 O2 Sat by Pulse Oximetry (%) 100 11/22/17 20:11 Constitutional: Yes: Calm, Anxious Eyes: Yes: Conjunctiva Clear, EOM Intact HENT: Yes: WNL Neck: Yes: Supple Cardiovascular: Yes: Regular Rate and Rhythm, S1, S2 Respiratory: Yes: Regular, Rales Gastrointestinal: Yes: Normal Bowel Sounds, Soft Genitourinary: Yes: WNL Breast(s): Yes: WNL Musculoskeletal: Yes: WNL Extremities: Yes: WNL Edema: Yes Edema: LLE: 4+, RLE: 4+ Peripheral Pulses WNL: Yes Integumentary: Yes: Bruising (hematoma around right buttock area) Neurological: Yes: Lethargy ...Motor Strength: WNL Labs: CBC, BMP 11/22/17 05:35 11/22/17 05:35 INR, PTT INR 1.31 (0.82-1.09) H 11/21/17 11:30 - ....Imaging X-ray: Report Reviewed, Image Reviewed EKG: Report Reviewed, Image Reviewed Problem List - Problems (1) Acute on chronic systolic and diastolic heart failure, NYHA class 1 Assessment/Plan: Marked CHF with marked leg edema, bilateral rales, with dilutional hyponatremia of 126 indicative of excess fluid overload Code(s): I50.43 - ACUTE ON CHRONIC COMBINED SYSTOLIC AND DIASTOLIC HRT FAIL (2) Fluid overload Code(s): E87.70 - FLUID OVERLOAD, UNSPECIFIED Qualifiers: Hypervolemia type: unspecified Qualified Code(s): E87.70 - Fluid overload, unspecified (3) Hyponatremia Assessment/Plan: Dilutional hyponatremia Code(s): E87.1 - HYPO-OSMOLALITY AND HYPONATREMIA (4) Anemia Assessment/Plan: Anemia of chronic disease Code(s): D64.9 - ANEMIA, UNSPECIFIED Qualifiers: Anemia type: due to chronic kidney disease Chronic kidney disease stage: stage 4 (severe) Qualified Code(s): N18.4 - Chronic kidney disease, stage 4 ( severe); D63.1 - Anemia in chronic kidney disease (5) BPH (benign prostatic hypertrophy) Code(s): N40.0 - BENIGN PROSTATIC HYPERPLASIA WITHOUT LOWER URINRY TRACT SYMP (6) Chronic renal disease Assessment/Plan: CKD most likely due to HTN and associted diabetic nephropathy Code(s): N18.9 - CHRONIC KIDNEY DISEASE, UNSPECIFIED Qualifiers: Chronic kidney disease stage: stage 4 (severe) Qualified Code(s): N18.4 - Chronic kidney disease, stage 4 (severe) (7) Diabetes 1.5, managed as type 1 Code(s): E13.9 - OTHER SPECIFIED DIABETES MELLITUS WITHOUT COMPLICATIONS (8) HTN (hypertension) Assessment/Plan: HTN well controlled with present medications Code(s): I10 - ESSENTIAL (PRIMARY) HYPERTENSION (9) Hx of heart artery stent Assessment/Plan: CAD stable after multiple stent placement after angioplaty done after acute DE a month ago Code(s): Z95.5 - PRESENCE OF CORONARY ANGIOPLASTY IMPLANT AND GRAFT (10) LV (left ventricular) mural thrombus Code(s): [id number] - Assessment/Plan IMP:Acute renal failure on CKD Hyponatremia, CHF with fluid overload, CAD with s/p angioplasty with plaement of multiple stents DM2 on Insulin HTN. LV thrombus on anticaogulation with coumadin besides Plavix and Aspirin Assess:Hopefully will improve with HD which will have to be continue till he is free of fluid overload. He is tolerating HD well and appears much more alert after a few hours of HD.
--- NOTE | 2017-11-22 23:51 | PN ---
Progress Note (short form) - Note Progress Note: seen at the start of dialysis treatment uneventful so far getting UF and dialysis Current Medications Allopurinol (Zyloprim -) 300 mg PO DAILY [facility] Last Admin: 11/22/17 09:32 Dose: 300 mg Aspirin (Asa -) 81 mg PO DAILY [facility] Last Admin: 11/22/17 09:31 Dose: 81 mg Calcium Acetate (Phoslo -) 667 mg PO TIDCM [facility] Last Admin: 11/22/17 17:12 Dose: 667 mg Carvedilol (Coreg -) 12.5 mg PO BID [facility] Last Admin: 11/22/17 21:45 Dose: 12.5 mg Clopidogrel Bisulfate (Plavix -) 75 mg PO DAILY [facility] Last Admin: 11/22/17 09:32 Dose: 75 mg Folic Acid (Folic Acid -) 1 mg PO DAILY [facility] Last Admin: 11/22/17 09:31 Dose: 1 mg Hydralazine HCl (Apresoline -) 25 mg PO BID [facility] Last Admin: 11/22/17 21:45 Dose: 25 mg Sodium Chloride (Normal Saline -) 250 mls @ 3,000 mls/hr IV PRN PRN PRN Reason: Hypotension during Dialysis Furosemide 100 mg/ Dextrose 50 mls @ 2.5 mls/hr IVPB TITR [facility]; Protocol Last Admin: 11/22/17 19:30 Dose: 5 mg/hr, 2.5 mls/hr Insulin Aspart (Novolog Vial Sliding Scale -) 1 vial SQ TIDAC [facility]; Protocol Last Admin: 11/22/17 18:44 Dose: Not Given Isosorbide Dinitrate (Isordil -) 20 mg PO DAILY [facility] Last Admin: 11/22/17 09:32 Dose: 20 mg Metolazone (Zaroxolyn -) 5 mg PO DAILY [facility] Last Admin: 11/22/17 09:31 Dose: 5 mg Rosuvastatin Calcium (Crestor -) 10 mg PO HS [facility] Last Admin: 11/22/17 22:35 Dose: 10 mg Tamsulosin HCl (Flomax -) 0.4 mg PO HS [facility] Last Admin: 11/22/17 21:45 Dose: 0.4 mg Warfarin Sodium (Coumadin -) 2 mg PO SuTuThSa@1800 [facility] Last Admin: 11/22/17 17:12 Dose: 2 mg Warfarin Sodium (Coumadin -) 4 mg PO MoWeFr@1800 [facility] Last Admin: 11/21/17 20:00 Dose: 4 mg Last Vital Signs Temp Pulse Resp BP Pulse Ox 97.6 F 75 18 119/83 100 11/22/17 18:10 11/22/17 20:30 11/22/17 20:30 11/22/17 20:30 11/22/17 20:11 awake , seems sleepy or lethargic family at bedside Lungs decr bs Heart soft s1s2 Abd soft Ext mod edema r>l CBC, BMP 11/22/17 05:35 11/22/17 05:35 IMP- Heart failure Kidney Failure fluid overload poor response to medical therapy now on intermittent HD with ultrafiltration
[2017-11-23] MEDS: INSULIN SLIDING SCALE (NOVOLOG) 1 VIAL SQ SCH ×3 (06:21→17:30)
[2017-11-23 06:34] LABS: BASO % 0.3 % (0-2.0); EOS % 0.5 % (0-4.5); HEMATOCRIT 26.2 % (35.4-49); HEMOGLOBIN 8.3 GM/dL (11.7-16.9); LYMPH % 8.4 % (8-40); MCH 24.8 pg (25.7-33.7); MCHC 31.7 g/dl (32.0-35.9); MEAN CELL VOLUME 78.3 fl (80-96); MONO % 9.5 % (3.8-10.2); NEUT % 81.3 % (42.8-82.8); PLATELET COUNT 153 K/MM3 (134-434); RBC 3.35 M/mm3 (4.00-5.60); RDW 20.3 % (11.9-15.9); WHITE BLOOD COUNT 7.4 K/mm3 (4.0-10.0)
[2017-11-23 06:51] LABS: ALBUMIN 2.6 g/dl (3.4-5.0); ANION GAP 6 (8-16); BLOOD UREA NITROGEN 93 mg/dL (7-18); CALCIUM 8.5 mg/dL (8.5-10.1); CHLORIDE 92 mmol/L (98-107); CO2 35 mmol/L (21-32); GLUCOSE,RANDOM 234 mg/dL (74-106); POTASSIUM 3.3 mmol/L (3.5-5.1); SODIUM 133 mmol/L (136-145)
[2017-11-23 06:53] LABS: ALK PHOS 183 U/L (45-117); BILIRUBIN,TOTAL 0.9 mg/dL (0.2-1.0); CREATININE 2.7 mg/dL (0.7-1.3); SGOT/AST 26 U/L (15-37); SGPT/ALT 49 U/L (12-78); TOT PROT 6.2 g/dl (6.4-8.2)
[2017-11-23] MEDS: CALCIUM ACETATE 667 MG CAPSULE (FP) PO SCH ×3 (08:36→17:52)
[2017-11-23] MEDS: METOLAZONE 5 MG TABLET PO SCH (09:49)
[2017-11-23] MEDS: CARVEDILOL 12.5 MG TABLET (FP) PO SCH ×2 (09:49→21:41)
[2017-11-23] MEDS: CLOPIDOGREL BISULFATE 75 MG TABLET (FP) PO SCH (09:49)
[2017-11-23] MEDS: ALLOPURINOL 100 MG TABLET (FP) PO SCH (09:49)
[2017-11-23] MEDS: ASPIRIN 81 MG CHEWABLE TABLETS PO SCH (09:49)
[2017-11-23] MEDS: hydrALAZINE HCL 25 MG TABLET (FP) PO SCH ×2 (09:49→21:41)
[2017-11-23] MEDS: FOLIC ACID 1 MG TABLET (FP) PO SCH (09:50)
[2017-11-23] MEDS ORDERED: PT OWN MED DRAWER 7, Y5N ONE ×2 (09:57→20:19)
[2017-11-23] MEDS: ISOSORBIDE DINITRATE 20 MG TABLET (FP) PO SCH (09:58)
--- NOTE | 2017-11-23 10:00 | PN ---
Progress Note (short form) - Note Progress Note: PULMONARY/CCM Pt seen and examined in the ICU. s/p HD yesterday, tolerated well. States breathing is improving. No chest pain. Vital Signs Period Temp Pulse Resp BP Sys/Simons Pulse Ox Last 24 Hr 97.6 F-98.3 F 70-85 13-28 116-139/65-93 100 Intake & Output 11/20/17 11/21/17 11/22/17 11/23/17 23:59 23:59 23:59 23:59 Intake Total 100 907.5 25 Output Total 250 2130 Balance -150 -1222.5 25 Weight 76.2 kg 77.8 kg 75.3 kg Gen: NAD at rest Heart: RRR Lung: scattered rhonchi Abd: softly distended, nontender Ext: + edema CBC, BMP 11/23/17 05:30 11/23/17 05:30 Active Medications Allopurinol (Zyloprim -) 300 mg PO DAILY [facility] Last Admin: 11/23/17 09:49 Dose: 300 mg Aspirin (Asa -) 81 mg PO DAILY [facility] Last Admin: 11/23/17 09:49 Dose: 81 mg Calcium Acetate (Phoslo -) 667 mg PO TIDCM [facility] Last Admin: 11/23/17 08:36 Dose: 667 mg Carvedilol (Coreg -) 12.5 mg PO BID [facility] Last Admin: 11/23/17 09:49 Dose: 12.5 mg Clopidogrel Bisulfate (Plavix -) 75 mg PO DAILY [facility] Last Admin: 11/23/17 09:49 Dose: 75 mg Folic Acid (Folic Acid -) 1 mg PO DAILY [facility] Last Admin: 11/23/17 09:50 Dose: 1 mg Hydralazine HCl (Apresoline -) 25 mg PO BID [facility] Last Admin: 11/23/17 09:49 Dose: 25 mg Sodium Chloride (Normal Saline -) 250 mls @ 3,000 mls/hr IV PRN PRN PRN Reason: Hypotension during Dialysis Furosemide 100 mg/ Dextrose 50 mls @ 2.5 mls/hr IVPB TITR [facility]; Protocol Last Admin: 11/22/17 19:30 Dose: 5 mg/hr, 2.5 mls/hr Insulin Aspart (Novolog Vial Sliding Scale -) 1 vial SQ TIDAC [facility]; Protocol Last Admin: 11/23/17 06:21 Dose: 4 units Isosorbide Dinitrate (Isordil -) 20 mg PO DAILY [facility] Last Admin: 11/23/17 09:58 Dose: 20 mg Metolazone (Zaroxolyn -) 5 mg PO DAILY [facility] Last Admin: 11/23/17 09:49 Dose: 5 mg Rosuvastatin Calcium (Crestor -) 10 mg PO [facility] Last Admin: 11/22/17 22:35 Dose: 10 mg Tamsulosin HCl (Flomax -) 0.4 mg PO [facility] Last Admin: 11/22/17 21:45 Dose: 0.4 mg Warfarin Sodium (Coumadin -) 2 mg PO SuTuThSa@1800 [facility] Last Admin: 11/22/17 17:12 Dose: 2 mg Warfarin Sodium (Coumadin -) 4 mg PO MoWeFr@1800 [facility] Last Admin: 11/21/17 20:00 Dose: 4 mg A/P Acute on Chronic Renal Failure requiring HD Acute on Chronic Systolic/Diastolic Heart Failure Volume Overload Hyponatremia CAD LV Thrombus HTN DM Hyperlipidemia - continue lasix, zaroxolyn - monitor urine output, creatinine - HD per renal with ultrafiltration - keep net negative - replete lytes - continue anticoagulation - O2 to keep Spo2 >90% - glucose control - continue ICU monitoring critical care time spent in reviewing chart, evaluating patient and formulating plan 35 min
--- NOTE | 2017-11-23 10:03 | PN ---
Progress Note, Physician History of Present Illness: Mr. Davila is a 77 yo male (b. [place]) w/ pmh of AMI in Jul of this year with subsequent 5 stents during catheterization (and prior NSTEMI a few years ago, also resulting in PCI), systolic/diastolic CHF, HTN, HLD, IDDM, and known left ventricle thrombus (currently on plavix, ASA, and coumadin) who presents following fall earlier today. Per his , who is with him, he slid out of bed and fell on to his right buttock. Did not experience any LOC or dizziness and describes this as a mechanical fall. He has had increasing falls lately and was recently evaluated for similar fall on right side 11/11/17 in [facility]. - Current Medication List Current Medications: Active Medications Allopurinol (Zyloprim -) 300 mg PO DAILY [facility] Last Admin: 11/23/17 09:49 Dose: 300 mg Aspirin (Asa -) 81 mg PO DAILY [facility] Last Admin: 11/23/17 09:49 Dose: 81 mg Calcium Acetate (Phoslo -) 667 mg PO TIDCM [facility] Last Admin: 11/23/17 08:36 Dose: 667 mg Carvedilol (Coreg -) 12.5 mg PO BID [facility] Last Admin: 11/23/17 09:49 Dose: 12.5 mg Clopidogrel Bisulfate (Plavix -) 75 mg PO DAILY [facility] Last Admin: 11/23/17 09:49 Dose: 75 mg Folic Acid (Folic Acid -) 1 mg PO DAILY [facility] Last Admin: 11/23/17 09:50 Dose: 1 mg Hydralazine HCl (Apresoline -) 25 mg PO BID [facility] Last Admin: 11/23/17 09:49 Dose: 25 mg Sodium Chloride (Normal Saline -) 250 mls @ 3,000 mls/hr IV PRN PRN PRN Reason: Hypotension during Dialysis Furosemide 100 mg/ Dextrose 50 mls @ 2.5 mls/hr IVPB TITR [facility]; Protocol Last Admin: 11/22/17 19:30 Dose: 5 mg/hr, 2.5 mls/hr Insulin Aspart (Novolog Vial Sliding Scale -) 1 vial SQ TIDAC [facility]; Protocol Last Admin: 11/23/17 06:21 Dose: 4 units Isosorbide Dinitrate (Isordil -) 20 mg PO DAILY [facility] Last Admin: 11/23/17 09:58 Dose: 20 mg Metolazone (Zaroxolyn -) 5 mg PO DAILY [facility] Last Admin: 11/23/17 09:49 Dose: 5 mg Rosuvastatin Calcium (Crestor -) 10 mg PO [facility] Last Admin: 11/22/17 22:35 Dose: 10 mg Tamsulosin HCl (Flomax -) 0.4 mg PO [facility] Last Admin: 11/22/17 21:45 Dose: 0.4 mg Warfarin Sodium (Coumadin -) 2 mg PO SuTuThSa@1800 [facility] Last Admin: 11/22/17 17:12 Dose: 2 mg Warfarin Sodium (Coumadin -) 4 mg PO MoWeFr@1800 [facility] Last Admin: 11/21/17 20:00 Dose: 4 mg - Objective Vital Signs: Vital Signs Temperature 98.2 F 11/23/17 02:00 Pulse Rate 80 11/23/17 06:00 Respiratory Rate 13 11/23/17 06:00 Blood Pressure 133/76 11/23/17 06:00 O2 Sat by Pulse Oximetry (%) 100 11/22/17 20:11 Eyes: Yes: WNL, Conjunctiva Clear, EOM Intact HENT: Yes: WNL, Atraumatic, Normocephalic Neck: Yes: WNL, Supple, Trachea Midline Cardiovascular: Yes: WNL, Regular Rate and Rhythm Respiratory: Yes: WNL, Regular, CTA Bilaterally Gastrointestinal: Yes: WNL, Normal Bowel Sounds Genitourinary: Yes: WNL Musculoskeletal: Yes: WNL Extremities: Yes: WNL Edema: No Integumentary: Yes: WNL Neurological: Yes: WNL, Alert, Oriented ...Motor Strength: WNL Psychiatric: Yes: WNL Labs: CBC, BMP 11/23/17 05:30 11/23/17 05:30 INR, PTT INR 1.31 (0.82-1.09) H 11/21/17 11:30 Assessment/Plan Echo: Report Reviewed (09/14: mildly reduced LVEF; inferoposterior and apical hypokinesis; small pericardial effusion; large apical thrombus; mild PA; moderate MR; unable to assess TR) Ejection Fraction %: LVEF > or = 40 % Imaging - Results Chest X-ray: Image Reviewed (enlarged heart; moderate CHF) EKG: Image Reviewed (NSR: LAD; poor R wave progression) Problem List - Problems (1) Acute on chronic systolic and diastolic heart failure, NYHA class 1 Assessment/Plan: +JVD; bilateral rales; BNP 7.918. TNI < 0.02. On carvedilol, hydralazine+isordil. Now on furosemide IV drip. (ACEI/ARB/and RAAS agent use precluded due to poor renal function presently). F/u BUN/Cr, electrolytes, Is and Os, daily weight. Code(s): I50.43 - ACUTE ON CHRONIC COMBINED SYSTOLIC AND DIASTOLIC HRT FAIL (2) Fall Assessment/Plan: Large right LE hip hematoma. Pt has had multiple falls; rhabdomyolysis may have occurred, further compromising pt's renal function. CK now 137. Hb 8.3. BUN 137/3.6 Cr. Code(s): W19.XXXA - UNSPECIFIED FALL, INITIAL ENCOUNTER Qualifiers: Encounter type: initial encounter Qualified Code(s): W19.XXXA - Unspecified fall, initial encounter (3) Fluid overload Code(s): E87.70 - FLUID OVERLOAD, UNSPECIFIED Qualifiers: Hypervolemia type: unspecified Qualified Code(s): E87.70 - Fluid overload, unspecified (4) Hyponatremia Assessment/Plan: Correction per river rat; presently on IV furosemide. Regarding other electrolytes: Keep K 4-4.5 Mg 2-2.3 PO4 2.5-3.5 Code(s): E87.1 - HYPO-OSMOLALITY AND HYPONATREMIA (5) Anemia Code(s): D64.9 - ANEMIA, UNSPECIFIED (6) Anxiety and depression Code(s): F41.8 - OTHER SPECIFIED ANXIETY DISORDERS (7) BPH (benign prostatic hypertrophy) Code(s): N40.0 - BENIGN PROSTATIC HYPERPLASIA WITHOUT LOWER URINRY TRACT SYMP (8) CVA (cerebral infarction) Code(s): I63.9 - CEREBRAL INFARCTION, UNSPECIFIED (9) Diabetes mellitus Code(s): E11.9 - TYPE 2 DIABETES MELLITUS WITHOUT COMPLICATIONS Qualifiers: Diabetes mellitus complication status: with ophthalmic complications Diabetes mellitus complication detail: with diabetic retinopathy (10) HTN (hypertension) Code(s): I10 - ESSENTIAL (PRIMARY) HYPERTENSION (11) Hx of heart artery stent Assessment/Plan: s/p [place] x 2; five coronary stents placed 07/2017 at [facility]. Continue dual antiplatetlet Rx. Pt is also on wafarin for apical thrombus (INR presently subtherapeutic); follow stool quaiac, Hb closely in view of the higher risk of bleed while on this "triple therapy". Aggressive control of lipids (on statin) while simultaneously following LFTs ( AST presently elevated nearly x3). Code(s): Z95.5 - PRESENCE OF CORONARY ANGIOPLASTY IMPLANT AND GRAFT (12) LV (left ventricular) mural thrombus Assessment/Plan: On warfarin. Code(s): [id number] - (13) Renal dysfunction Assessment/Plan: Recevied IVP furosemide in ER; now on IV drip. F/u Is and Os, electrolytes. Per river rat, may require hemodialysis if response to above is inadequate. Code(s): N28.9 - DISORDER OF KIDNEY AND URETER, UNSPECIFIED (14) Status post myocardial infarction Code(s): I25.2 - OLD MYOCARDIAL INFARCTION (15) Syncope Code(s): R55 - SYNCOPE AND COLLAPSE (16) Sleep apnea Assessment/Plan: Code(s): G47.30 - SLEEP APNEA, UNSPECIFIED (17) Hyperlipidemia Assessment/Plan: On rosuvastatin 10 mg qd; LDL cholesterol 70 mg/dL on 08/2017. AST elevated nearly x 3; f/u levels. Code(s): E78.5 - HYPERLIPIDEMIA, UNSPECIFIED stable s/p HD cc time spent 36 min
[2017-11-23] MEDS: POTASSIUM CHLORIDE TABS 20 MEQ TABLET.ER (FP) PO SCH ×3 (12:05→17:28)
[2017-11-23] MEDS ORDERED: POTASSIUM CHLORIDE TABS 20 MEQ TABLET.ER (FP) PO SCH (17:00)
[2017-11-23] MEDS: WARFARIN NA 2 MG TABLET (UD) PO SCH (17:32)
--- NOTE | 2017-11-23 17:37 | PN ---
Progress Note (short form) - Note Progress Note: seen at the start of dialysis treatment uneventful Current Medications Allopurinol (Zyloprim -) 300 mg PO DAILY [facility] Last Admin: 11/23/17 09:49 Dose: 300 mg Aspirin (Asa -) 81 mg PO DAILY [facility] Last Admin: 11/23/17 09:49 Dose: 81 mg Calcium Acetate (Phoslo -) 667 mg PO TIDCM [facility] Last Admin: 11/23/17 12:25 Dose: 667 mg Carvedilol (Coreg -) 12.5 mg PO BID [facility] Last Admin: 11/23/17 09:49 Dose: 12.5 mg Clopidogrel Bisulfate (Plavix -) 75 mg PO DAILY [facility] Last Admin: 11/23/17 09:49 Dose: 75 mg Folic Acid (Folic Acid -) 1 mg PO DAILY [facility] Last Admin: 11/23/17 09:50 Dose: 1 mg Hydralazine HCl (Apresoline -) 25 mg PO BID [facility] Last Admin: 11/23/17 09:49 Dose: 25 mg Sodium Chloride (Normal Saline -) 250 mls @ 3,000 mls/hr IV PRN PRN PRN Reason: Hypotension during Dialysis Furosemide 100 mg/ Dextrose 50 mls @ 2.5 mls/hr IVPB TITR [facility]; Protocol Last Admin: 11/22/17 19:30 Dose: 5 mg/hr, 2.5 mls/hr Insulin Aspart (Novolog Vial Sliding Scale -) 1 vial SQ TIDAC [facility]; Protocol Last Admin: 11/23/17 17:30 Dose: 12 units Isosorbide Dinitrate (Isordil -) 20 mg PO DAILY [facility] Last Admin: 11/23/17 09:58 Dose: 20 mg Metolazone (Zaroxolyn -) 5 mg PO DAILY [facility] Last Admin: 11/23/17 09:49 Dose: 5 mg Rosuvastatin Calcium (Crestor -) 10 mg PO HS [facility] Last Admin: 11/22/17 22:35 Dose: 10 mg Tamsulosin HCl (Flomax -) 0.4 mg PO HS [facility] Last Admin: 11/22/17 21:45 Dose: 0.4 mg Warfarin Sodium (Coumadin -) 2 mg PO SuTuThSa@1800 [facility] Last Admin: 11/23/17 17:32 Dose: 2 mg Warfarin Sodium (Coumadin -) 4 mg PO MoWeFr@1800 [facility] Last Admin: 11/21/17 20:00 Dose: 4 mg Last Vital Signs Temp Pulse Resp BP Pulse Ox 98.0 F 80 13 130/82 100 11/23/17 12:00 11/23/17 12:00 11/23/17 12:00 11/23/17 12:00 11/23/17 09:00 CBC, BMP 11/23/17 05:30 11/23/17 05:30 IM CKD HF s/p fluid overload better today with oxygenation and sob Plan- follow up in am to decide on dialysis
[2017-11-23] MEDS ORDERED: INSULIN (NOVOLOG) ASPART 100 UNITS/ML 10ML VIAL SQ ONE (19:15)
[2017-11-23] MEDS: FUROSEMIDE INJECTION 100 MG in DEXTROSE 5%-WATER - 40 ML IVPB SCH (19:40)
--- NOTE | 2017-11-23 19:59 | PN ---
Progress Note, Physician History of Present Illness: Feel better. Denies chest pain, SOB ,abdominal pain. Tolerated HD well yesterday . Appetite better. - Current Medication List Current Medications: Active Medications Allopurinol (Zyloprim -) 300 mg PO DAILY [facility] Last Admin: 11/23/17 09:49 Dose: 300 mg Aspirin (Asa -) 81 mg PO DAILY [facility] Last Admin: 11/23/17 09:49 Dose: 81 mg Calcium Acetate (Phoslo -) 667 mg PO TIDCM [facility] Last Admin: 11/23/17 17:52 Dose: 667 mg Carvedilol (Coreg -) 12.5 mg PO BID [facility] Last Admin: 11/23/17 09:49 Dose: 12.5 mg Clopidogrel Bisulfate (Plavix -) 75 mg PO DAILY [facility] Last Admin: 11/23/17 09:49 Dose: 75 mg Folic Acid (Folic Acid -) 1 mg PO DAILY [facility] Last Admin: 11/23/17 09:50 Dose: 1 mg Hydralazine HCl (Apresoline -) 25 mg PO BID [facility] Last Admin: 11/23/17 09:49 Dose: 25 mg Sodium Chloride (Normal Saline -) 250 mls @ 3,000 mls/hr IV PRN PRN PRN Reason: Hypotension during Dialysis Furosemide 100 mg/ Dextrose 50 mls @ 2.5 mls/hr IVPB TITR [facility]; Protocol Last Admin: 11/22/17 19:30 Dose: 5 mg/hr, 2.5 mls/hr Insulin Aspart (Novolog Vial Sliding Scale -) 1 vial SQ TIDAC [facility]; Protocol Last Admin: 11/23/17 17:30 Dose: 12 units Insulin Detemir (Levemir Vial) 20 units SQ [facility] Isosorbide Dinitrate (Isordil -) 20 mg PO DAILY [facility] Last Admin: 11/23/17 09:58 Dose: 20 mg Metolazone (Zaroxolyn -) 5 mg PO DAILY [facility] Last Admin: 11/23/17 09:49 Dose: 5 mg Rosuvastatin Calcium (Crestor -) 10 mg PO [facility] Last Admin: 11/22/17 22:35 Dose: 10 mg Tamsulosin HCl (Flomax -) 0.4 mg PO [facility] Last Admin: 11/22/17 21:45 Dose: 0.4 mg Warfarin Sodium (Coumadin -) 2 mg PO SuTuThSa@1800 [facility] Last Admin: 11/23/17 17:32 Dose: 2 mg Warfarin Sodium (Coumadin -) 4 mg PO MoWeFr@1800 [facility] Last Admin: 11/21/17 20:00 Dose: 4 mg - Objective Vital Signs: Vital Signs Temperature 98.0 F 11/23/17 12:00 Pulse Rate 80 11/23/17 12:00 Respiratory Rate 13 11/23/17 12:00 Blood Pressure 130/82 11/23/17 12:00 O2 Sat by Pulse Oximetry (%) 100 11/23/17 09:00 Constitutional: Yes: No Distress, Calm Eyes: Yes: Conjunctiva Clear HENT: Yes: WNL Neck: Yes: Supple Cardiovascular: Yes: Regular Rate and Rhythm, S1, S2 Respiratory: Yes: Regular, Rales Gastrointestinal: Yes: Normal Bowel Sounds, Soft Genitourinary: Yes: [place] Present Breast(s): Yes: WNL Musculoskeletal: Yes: WNL Extremities: Yes: WNL Edema: Yes Edema: LLE: 2+, RLE: 2+ Peripheral Pulses WNL: Yes Integumentary: Yes: WNL Neurological: Yes: Alert, Oriented ...Motor Strength: WNL Psychiatric: Yes: Alert, Oriented Labs: CBC, BMP 11/23/17 05:30 11/23/17 05:30 INR, PTT INR 1.31 (0.82-1.09) H 11/21/17 11:30 - ....Imaging Chest X-ray: Report Reviewed, Image Reviewed Problem List - Problems (1) Acute on chronic systolic and diastolic heart failure, NYHA class 1 Assessment/Plan: After HD leg edema has improved , respiratory rate has improved and he feels much better. Code(s): I50.43 - ACUTE ON CHRONIC COMBINED SYSTOLIC AND DIASTOLIC HRT FAIL (2) Fluid overload Assessment/Plan: Hyponatremia was dilutional and improved to 133 post HD Code(s): E87.70 - FLUID OVERLOAD, UNSPECIFIED Qualifiers: Hypervolemia type: unspecified Qualified Code(s): E87.70 - Fluid overload, unspecified (3) Anemia Assessment/Plan: HB is stable at 8.3 Gm% and most likely due renal failure Code(s): D64.9 - ANEMIA, UNSPECIFIED Qualifiers: Anemia type: due to chronic kidney disease Chronic kidney disease stage: stage 4 (severe) Qualified Code(s): N18.4 - Chronic kidney disease, stage 4 ( severe); D63.1 - Anemia in chronic kidney disease (4) BPH (benign prostatic hypertrophy) Code(s): N40.0 - BENIGN PROSTATIC HYPERPLASIA WITHOUT LOWER URINRY TRACT SYMP (5) Chronic renal disease Code(s): N18.9 - CHRONIC KIDNEY DISEASE, UNSPECIFIED Qualifiers: Chronic kidney disease stage: stage 4 (severe) Qualified Code(s): N18.4 - Chronic kidney disease, stage 4 (severe) (6) Diabetes 1.5, managed as type 1 Assessment/Plan: BGM are being covered with Reg.Insulin as patient's PO intake isn't consistent. Code(s): E13.9 - OTHER SPECIFIED DIABETES MELLITUS WITHOUT COMPLICATIONS (7) Hx of heart artery stent Assessment/Plan: Denies any chest pain , SOB or palpitations Code(s): Z95.5 - PRESENCE OF CORONARY ANGIOPLASTY IMPLANT AND GRAFT (8) LV (left ventricular) mural thrombus Code(s): [id number] - Assessment/Plan IMP: Acute on chronic renal failure, CAD s/p Acute DC s/p Angioplasty with placement of five stents. Left ventricular thrombus. DM tpe 2 on Insulin. Assess: Decision to HD will be by housing inspector Nehemias Lozano. He definitely has improved but continues with fluid overload. CHF will improve after each dialysis. He was very lethargic before HD and has shown marked improvement in mentation.
[2017-11-23] MEDS: TAMSULOSIN HCL 0.4 MG CAP.ER.24H (FP) PO SCH (21:41)
[2017-11-23] MEDS ORDERED: INSULIN (LEVEMIR) 100 UNITS/ML UNITS SQ SCH (22:00)
[2017-11-23] MEDS: ROSUVASTATIN CA 10 MG TABLET (FP) PO SCH (23:11)
[2017-11-24] MEDS: INSULIN (LEVEMIR) 100 UNITS/ML UNITS SQ SCH (06:23)
[2017-11-24] MEDS: INSULIN SLIDING SCALE (NOVOLOG) 1 VIAL SQ SCH ×3 (06:24→16:02)
[2017-11-24 06:42] LABS: BASO % 0.6 % (0-2.0); HEMATOCRIT 27.1 % (35.4-49); HEMOGLOBIN 8.7 GM/dL (11.7-16.9); MCH 25.2 pg (25.7-33.7); MCHC 32.1 g/dl (32.0-35.9); MEAN CELL VOLUME 78.6 fl (80-96); MONO % 10.8 % (3.8-10.2); NEUT % 75.6 % (42.8-82.8); PLATELET COUNT 167 K/MM3 (134-434); RBC 3.45 M/mm3 (4.00-5.60); RDW 20.3 % (11.9-15.9); WHITE BLOOD COUNT 7.3 K/mm3 (4.0-10.0)
[2017-11-24 06:46] LABS: INR 1.42 (0.82-1.09); PROTHROMBIN TIME (PATIENT) 16.1 SEC (9.7-13.0)
[2017-11-24 06:49] LABS: ACTIVATED PTT 31.4 SECONDS (26.9-34.4)
[2017-11-24 07:17] LABS: CHLORIDE 93 mmol/L (98-107); POTASSIUM 3.9 mmol/L (3.5-5.1); SODIUM 134 mmol/L (136-145)
[2017-11-24 07:37] LABS: ALBUMIN 2.7 g/dl (3.4-5.0); ALK PHOS 187 U/L (45-117); BLOOD UREA NITROGEN 102 mg/dL (7-18); CALCIUM 8.1 mg/dL (8.5-10.1); CO2 32 mmol/L (21-32); MAGNESIUM 2.4 mg/dL (1.8-2.4); PHOSPHOROUS 3.7 mg/dL (2.5-4.9); SGOT/AST 26 U/L (15-37); SGPT/ALT 42 U/L (12-78); TOT PROT 6.1 g/dl (6.4-8.2)
[2017-11-24 07:46] LABS: GLUCOSE,RANDOM 329 mg/dL (74-106)
[2017-11-24] MEDS ORDERED: INSULIN (NOVOLOG) ASPART 100 UNITS/ML 10ML VIAL SQ ONE (08:00)
[2017-11-24] MEDS: CALCIUM ACETATE 667 MG CAPSULE (FP) PO SCH ×3 (08:51→17:53)
--- NOTE | 2017-11-24 09:11 | PN ---
Progress Note, Physician History of Present Illness: Mr. Davila is a 77 yo male (b. [place]) w/ pmh of AMI in Jul of this year with subsequent 5 stents during catheterization (and prior NSTEMI a few years ago, also resulting in PCI), systolic/diastolic CHF, HTN, HLD, IDDM, and known left ventricle thrombus (currently on plavix, ASA, and coumadin) who presents following fall earlier today. Per his , who is with him, he slid out of bed and fell on to his right buttock. Did not experience any LOC or dizziness and describes this as a mechanical fall. He has had increasing falls lately and was recently evaluated for similar fall on right side 11/11/17 in [facility]. - Current Medication List Current Medications: Active Medications Allopurinol (Zyloprim -) 300 mg PO DAILY [facility] Last Admin: 11/23/17 09:49 Dose: 300 mg Aspirin (Asa -) 81 mg PO DAILY [facility] Last Admin: 11/23/17 09:49 Dose: 81 mg Calcium Acetate (Phoslo -) 667 mg PO TIDCM [facility] Last Admin: 11/24/17 08:51 Dose: 667 mg Carvedilol (Coreg -) 12.5 mg PO BID [facility] Last Admin: 11/23/17 21:41 Dose: 12.5 mg Clopidogrel Bisulfate (Plavix -) 75 mg PO DAILY [facility] Last Admin: 11/23/17 09:49 Dose: 75 mg Folic Acid (Folic Acid -) 1 mg PO DAILY [facility] Last Admin: 11/23/17 09:50 Dose: 1 mg Hydralazine HCl (Apresoline -) 25 mg PO BID [facility] Last Admin: 11/23/17 21:41 Dose: 25 mg Sodium Chloride (Normal Saline -) 250 mls @ 3,000 mls/hr IV PRN PRN PRN Reason: Hypotension during Dialysis Furosemide 100 mg/ Dextrose 50 mls @ 2.5 mls/hr IVPB TITR [facility]; Protocol Last Admin: 11/23/17 19:40 Dose: 5 mg/hr, 2.5 mls/hr Insulin Aspart (Novolog Vial Sliding Scale -) 1 vial SQ TIDAC [facility]; Protocol Last Admin: 11/24/17 06:24 Dose: 10 units Insulin Detemir (Levemir Vial) 20 units SQ AM [facility] Last Admin: 11/24/17 06:23 Dose: 20 units Isosorbide Dinitrate (Isordil -) 20 mg PO DAILY [facility] Last Admin: 11/23/17 09:58 Dose: 20 mg Metolazone (Zaroxolyn -) 5 mg PO DAILY [facility] Last Admin: 11/23/17 09:49 Dose: 5 mg Rosuvastatin Calcium (Crestor -) 10 mg PO [facility] Last Admin: 11/23/17 23:11 Dose: 10 mg Tamsulosin HCl (Flomax -) 0.4 mg PO [facility] Last Admin: 11/23/17 21:41 Dose: 0.4 mg Warfarin Sodium (Coumadin -) 2 mg PO SuTuThSa@1800 [facility] Last Admin: 11/23/17 17:32 Dose: 2 mg Warfarin Sodium (Coumadin -) 4 mg PO MoWeFr@1800 [facility] Last Admin: 11/21/17 20:00 Dose: 4 mg - Objective Vital Signs: Vital Signs Temperature 97.7 F 11/24/17 06:00 Pulse Rate 83 11/24/17 08:00 Respiratory Rate 21 11/24/17 08:00 Blood Pressure 125/69 11/24/17 08:00 O2 Sat by Pulse Oximetry (%) 100 11/24/17 06:50 Eyes: Yes: WNL, Conjunctiva Clear, EOM Intact HENT: Yes: WNL, Atraumatic, Normocephalic Neck: Yes: WNL, Supple, Trachea Midline Cardiovascular: Yes: WNL, Regular Rate and Rhythm Respiratory: Yes: WNL, Regular, CTA Bilaterally Gastrointestinal: Yes: WNL, Normal Bowel Sounds Genitourinary: Yes: WNL Musculoskeletal: Yes: WNL Extremities: Yes: WNL Edema: No Integumentary: Yes: WNL Neurological: Yes: WNL, Alert, Oriented ...Motor Strength: WNL Psychiatric: Yes: WNL Labs: CBC, BMP 11/24/17 05:30 11/24/17 05:30 INR, PTT INR 1.42 (0.82-1.09) H 11/24/17 05:30 Assessment/Plan Echo: Report Reviewed (09/14: mildly reduced LVEF; inferoposterior and apical hypokinesis; small pericardial effusion; large apical thrombus; mild ND; moderate MR; unable to assess TR) Ejection Fraction %: LVEF > or = 40 % Imaging - Results Chest X-ray: Image Reviewed (enlarged heart; moderate CHF) EKG: Image Reviewed (NSR: LAD; poor R wave progression) Problem List - Problems (1) Acute on chronic systolic and diastolic heart failure, NYHA class 1 Assessment/Plan: +JVD; bilateral rales; BNP 7.918. TNI < 0.02. On carvedilol, hydralazine+isordil. Now on furosemide IV drip. (ACEI/ARB/and RAAS agent use precluded due to poor renal function presently). F/u BUN/Cr, electrolytes, Is and Os, daily weight. Code(s): I50.43 - ACUTE ON CHRONIC COMBINED SYSTOLIC AND DIASTOLIC HRT FAIL (2) Fall Assessment/Plan: Large right LE hip hematoma. Pt has had multiple falls; rhabdomyolysis may have occurred, further compromising pt's renal function. CK now 137. Hb 8.3. BUN 137/3.6 Cr. Code(s): W19.XXXA - UNSPECIFIED FALL, INITIAL ENCOUNTER Qualifiers: Encounter type: initial encounter Qualified Code(s): W19.XXXA - Unspecified fall, initial encounter (3) Fluid overload Code(s): E87.70 - FLUID OVERLOAD, UNSPECIFIED Qualifiers: Hypervolemia type: unspecified Qualified Code(s): E87.70 - Fluid overload, unspecified (4) Hyponatremia Assessment/Plan: Correction per fruit packer; presently on IV furosemide. Regarding other electrolytes: Keep K 4-4.5 Mg 2-2.3 PO4 2.5-3.5 Code(s): E87.1 - HYPO-OSMOLALITY AND HYPONATREMIA (5) Anemia Code(s): D64.9 - ANEMIA, UNSPECIFIED (6) Anxiety and depression Code(s): F41.8 - OTHER SPECIFIED ANXIETY DISORDERS (7) BPH (benign prostatic hypertrophy) Code(s): N40.0 - BENIGN PROSTATIC HYPERPLASIA WITHOUT LOWER URINRY TRACT SYMP (8) CVA (cerebral infarction) Code(s): I63.9 - CEREBRAL INFARCTION, UNSPECIFIED (9) Diabetes mellitus Code(s): E11.9 - TYPE 2 DIABETES MELLITUS WITHOUT COMPLICATIONS Qualifiers: Diabetes mellitus complication status: with ophthalmic complications Diabetes mellitus complication detail: with diabetic retinopathy (10) HTN (hypertension) Code(s): I10 - ESSENTIAL (PRIMARY) HYPERTENSION (11) Hx of heart artery stent Assessment/Plan: s/p [place] x 2; five coronary stents placed 07/2017 at [facility]. Continue dual antiplatetlet Rx. Pt is also on wafarin for apical thrombus (INR presently subtherapeutic); follow stool quaiac, Hb closely in view of the higher risk of bleed while on this "triple therapy". Aggressive control of lipids (on statin) while simultaneously following LFTs ( AST presently elevated nearly x3). Code(s): Z95.5 - PRESENCE OF CORONARY ANGIOPLASTY IMPLANT AND GRAFT (12) LV (left ventricular) mural thrombus Assessment/Plan: On warfarin. Code(s): [id number] - (13) Renal dysfunction Assessment/Plan: Recevied IVP furosemide in ER; now on IV drip. F/u Is and Os, electrolytes. Per fruit packer, may require hemodialysis if response to above is inadequate. Code(s): N28.9 - DISORDER OF KIDNEY AND URETER, UNSPECIFIED (14) Status post myocardial infarction Code(s): I25.2 - OLD MYOCARDIAL INFARCTION (15) Syncope Code(s): R55 - SYNCOPE AND COLLAPSE (16) Sleep apnea Assessment/Plan: Code(s): G47.30 - SLEEP APNEA, UNSPECIFIED (17) Hyperlipidemia Assessment/Plan: On rosuvastatin 10 mg qd; LDL cholesterol 70 mg/dL on 08/2017. AST elevated nearly x 3; f/u levels. Code(s): E78.5 - HYPERLIPIDEMIA, UNSPECIFIED stable s/p HD cc time spent 36 min
[2017-11-24] MEDS ORDERED: PT OWN MED DRAWER 7, Y5N ONE ×2 (09:25→22:53)
--- NOTE | 2017-11-24 09:43 | PN ---
Progress Note (short form) - Note Progress Note: PULMONARY/CCM Pt seen and examined in the ICU. 24HR: negative fluid balance on IV lasix and metolazone Vital Signs Temp 97.7 F 11/24/17 06:00 Pulse 83 11/24/17 08:00 Resp 21 11/24/17 08:00 BP 125/69 11/24/17 08:00 Pulse Ox 100 11/24/17 06:50 Intake & Output 11/23/17 11/23/17 11/24/17 11:59 23:59 11:59 Intake Total 25 650 140 Output Total 800 700 Balance 25 -150 -560 Weight 75.3 kg 74.661 kg Intake: IV 25 10 20 Lasix Injection - 100 mg 25 10 20 In D5w - 40 ml @ 5 MG/HR 2.5 mls/hr IVPB TITR [facility] Rx#:[id number] IVPB 0 0 Oral 640 120 Output: Urine 800 700 [place] 800 700 Other: Voiding Method Indwelling Catheter Indwelling Catheter Bowel Movement No No No Weight Measurement Method Built in [facility] Gen: NAD at rest Heart: RRR Lung: clear anterior, no wheezes Abd: softly distended, nontender Ext: trace edema significantly improved from 48hrs prior Active Medications Allopurinol (Zyloprim -) 300 mg PO DAILY [facility] Last Admin: 11/23/17 09:49 Dose: 300 mg Aspirin (Asa -) 81 mg PO DAILY [facility] Last Admin: 11/23/17 09:49 Dose: 81 mg Calcium Acetate (Phoslo -) 667 mg PO TIDCM [facility] Last Admin: 11/24/17 08:51 Dose: 667 mg Carvedilol (Coreg -) 12.5 mg PO BID [facility] Last Admin: 11/23/17 21:41 Dose: 12.5 mg Clopidogrel Bisulfate (Plavix -) 75 mg PO DAILY [facility] Last Admin: 11/23/17 09:49 Dose: 75 mg Folic Acid (Folic Acid -) 1 mg PO DAILY [facility] Last Admin: 11/23/17 09:50 Dose: 1 mg Hydralazine HCl (Apresoline -) 25 mg PO BID [facility] Last Admin: 11/23/17 21:41 Dose: 25 mg Sodium Chloride (Normal Saline -) 250 mls @ 3,000 mls/hr IV PRN PRN PRN Reason: Hypotension during Dialysis Furosemide 100 mg/ Dextrose 50 mls @ 2.5 mls/hr IVPB TITR [facility]; Protocol Last Admin: 11/23/17 19:40 Dose: 5 mg/hr, 2.5 mls/hr Insulin Aspart (Novolog Vial Sliding Scale -) 1 vial SQ TIDAC [facility]; Protocol Last Admin: 11/24/17 06:24 Dose: 10 units Insulin Detemir (Levemir Vial) 20 units SQ AM [facility] Last Admin: 11/24/17 06:23 Dose: 20 units Isosorbide Dinitrate (Isordil -) 20 mg PO DAILY [facility] Last Admin: 11/23/17 09:58 Dose: 20 mg Metolazone (Zaroxolyn -) 5 mg PO DAILY [facility] Last Admin: 11/23/17 09:49 Dose: 5 mg Rosuvastatin Calcium (Crestor -) 10 mg PO [facility] Last Admin: 11/23/17 23:11 Dose: 10 mg Tamsulosin HCl (Flomax -) 0.4 mg PO [facility] Last Admin: 11/23/17 21:41 Dose: 0.4 mg Warfarin Sodium (Coumadin -) 2 mg PO SuTuThSa@1800 [facility] Last Admin: 11/23/17 17:32 Dose: 2 mg Warfarin Sodium (Coumadin -) 4 mg PO MoWeFr@1800 [facility] Last Admin: 11/21/17 20:00 Dose: 4 mg A/P Acute on Chronic Renal Failure requiring HD Acute on Chronic Systolic/Diastolic Heart Failure Volume Overload Hyponatremia CAD LV Thrombus HTN DM Hyperlipidemia - continue lasix, zaroxolyn---making good urine - monitor urine output, creatinine - HD per renal, appears to be able to be managed on diuretics - keep net negative - replete lytes - continue anticoagulation - O2 to keep Spo2 >90% - glucose control - ok for floor Musa ACNP 1872 critical care time spent in reviewing chart, evaluating patient and formulating plan 35 min
[2017-11-24] MEDS: METOLAZONE 5 MG TABLET PO SCH (09:46)
[2017-11-24] MEDS: FOLIC ACID 1 MG TABLET (FP) PO SCH (09:46)
[2017-11-24] MEDS: ISOSORBIDE DINITRATE 20 MG TABLET (FP) PO SCH (09:46)
[2017-11-24] MEDS: ASPIRIN 81 MG CHEWABLE TABLETS PO SCH (09:46)
[2017-11-24] MEDS: CLOPIDOGREL BISULFATE 75 MG TABLET (FP) PO SCH (09:47)
[2017-11-24] MEDS: hydrALAZINE HCL 25 MG TABLET (FP) PO SCH ×2 (09:47→21:55)
[2017-11-24] MEDS: ALLOPURINOL 100 MG TABLET (FP) PO SCH (09:47)
[2017-11-24] MEDS: CARVEDILOL 12.5 MG TABLET (FP) PO SCH ×2 (09:47→21:55)
--- NOTE | 2017-11-24 11:17 | PN ---
Progress Note (short form) - Note Progress Note: cxr show increased density urine output decent but not in a degree to make a difference in the present fluid overloaded state he denies complaints and is not in distress Last Vital Signs Temp Pulse Resp BP Pulse Ox 98.4 F 81 14 126/82 100 11/24/17 14:00 11/24/17 15:30 11/24/17 15:30 11/24/17 15:30 11/24/17 15:51 Lungs decr bs Heart reg s1s2 Abd soft nontender Ext mild edema r>l CBC, BMP 11/24/17 05:30 11/24/17 05:30 IM CKD HF fluid overload better today with oxygenation and sob Plan-hd today seen during the treatment-
[2017-11-24] MEDS ORDERED: WARFARIN NA 2 MG TABLET (UD) PO ONE (16:13)
--- NOTE | 2017-11-24 16:20 | PN ---
Progress Note, Physician History of Present Illness: C/O SOB. Denies any chest pain, palpitations, leg pain. Was evaluate by crts who found that Right lung remains congested by today's chesat Xray and decided that he should undergo HD today because of fluid overload. - Current Medication List Current Medications: Active Medications Allopurinol (Zyloprim -) 300 mg PO DAILY [facility] Last Admin: 11/24/17 09:47 Dose: 300 mg Aspirin (Asa -) 81 mg PO DAILY [facility] Last Admin: 11/24/17 09:46 Dose: 81 mg Calcium Acetate (Phoslo -) 667 mg PO TIDCM [facility] Last Admin: 11/24/17 12:54 Dose: 667 mg Carvedilol (Coreg -) 12.5 mg PO BID [facility] Last Admin: 11/24/17 09:47 Dose: 12.5 mg Clopidogrel Bisulfate (Plavix -) 75 mg PO DAILY [facility] Last Admin: 11/24/17 09:47 Dose: 75 mg Folic Acid (Folic Acid -) 1 mg PO DAILY [facility] Last Admin: 11/24/17 09:46 Dose: 1 mg Hydralazine HCl (Apresoline -) 25 mg PO BID [facility] Last Admin: 11/24/17 09:47 Dose: 25 mg Sodium Chloride (Normal Saline -) 250 mls @ 3,000 mls/hr IV PRN PRN PRN Reason: Hypotension during Dialysis Furosemide 100 mg/ Dextrose 50 mls @ 2.5 mls/hr IVPB TITR [facility]; Protocol Last Admin: 11/23/17 19:40 Dose: 5 mg/hr, 2.5 mls/hr Insulin Aspart (Novolog Vial Sliding Scale -) 1 vial SQ TIDAC [facility]; Protocol Last Admin: 11/24/17 16:02 Dose: 4 units Insulin Detemir (Levemir Vial) 20 units SQ AM [facility] Last Admin: 11/24/17 06:23 Dose: 20 units Isosorbide Dinitrate (Isordil -) 20 mg PO DAILY [facility] Last Admin: 11/24/17 09:46 Dose: 20 mg Metolazone (Zaroxolyn -) 5 mg PO DAILY [facility] Last Admin: 11/24/17 09:46 Dose: 5 mg Rosuvastatin Calcium (Crestor -) 10 mg PO HS [facility] Last Admin: 11/23/17 23:11 Dose: 10 mg Tamsulosin HCl (Flomax -) 0.4 mg PO HS [facility] Last Admin: 11/23/17 21:41 Dose: 0.4 mg Warfarin Sodium (Coumadin -) 2 mg PO SuTuThSa@1800 [facility] Last Admin: 11/23/17 17:32 Dose: 2 mg Warfarin Sodium (Coumadin -) 4 mg PO MoWeFr@1800 [facility] Last Admin: 11/21/17 20:00 Dose: 4 mg Warfarin Sodium (Coumadin -) 4 mg PO NOW ONE Stop: 11/24/17 16:14 - Objective Vital Signs: Vital Signs Temperature 98.4 F 11/24/17 14:00 Pulse Rate 81 11/24/17 15:30 Respiratory Rate 14 11/24/17 15:30 Blood Pressure 126/82 11/24/17 15:30 O2 Sat by Pulse Oximetry (%) 100 11/24/17 15:51 Constitutional: Yes: Calm, Anxious Eyes: Yes: Conjunctiva Clear HENT: Yes: WNL Neck: Yes: Supple Cardiovascular: Yes: Regular Rate and Rhythm, S1, S2 Respiratory: Yes: Regular, Rales Gastrointestinal: Yes: Normal Bowel Sounds, Soft Genitourinary: Yes: [place] Present Breast(s): Yes: WNL Musculoskeletal: Yes: WNL Extremities: Yes: WNL Edema: No Peripheral Pulses WNL: Yes Integumentary: Yes: WNL Neurological: Yes: Alert, Oriented, Cran Nerves II-XII Intact ...Motor Strength: WNL Psychiatric: Yes: Alert, Oriented Labs: CBC, BMP 11/24/17 05:30 11/24/17 05:30 INR, PTT INR 1.42 (0.82-1.09) H 11/24/17 05:30 - ....Imaging Chest X-ray: Report Reviewed, Image Reviewed Problem List - Problems (1) Acute on chronic systolic and diastolic heart failure, NYHA class 1 Assessment/Plan: Fluid overload being treated with hemodialysis and has shown marked improvement in edema and improvement in sodium level to 132.His SOB has improved. Code(s): I50.43 - ACUTE ON CHRONIC COMBINED SYSTOLIC AND DIASTOLIC HRT FAIL (2) Fluid overload Code(s): E87.70 - FLUID OVERLOAD, UNSPECIFIED Qualifiers: Hypervolemia type: unspecified Qualified Code(s): E87.70 - Fluid overload, unspecified (3) Anemia Assessment/Plan: Hemoglobin is stable and most likely due to chronic disease Code(s): D64.9 - ANEMIA, UNSPECIFIED Qualifiers: Anemia type: due to chronic kidney disease Chronic kidney disease stage: stage 4 (severe) Qualified Code(s): N18.4 - Chronic kidney disease, stage 4 ( severe); D63.1 - Anemia in chronic kidney disease (4) BPH (benign prostatic hypertrophy) Code(s): N40.0 - BENIGN PROSTATIC HYPERPLASIA WITHOUT LOWER URINRY TRACT SYMP (5) Chronic renal disease Code(s): N18.9 - CHRONIC KIDNEY DISEASE, UNSPECIFIED Qualifiers: Chronic kidney disease stage: stage 4 (severe) Qualified Code(s): N18.4 - Chronic kidney disease, stage 4 (severe) (6) Diabetes 1.5, managed as type 1 Assessment/Plan: DM is being controlled with TID coverage with regullar Insulin Code(s): E13.9 - OTHER SPECIFIED DIABETES MELLITUS WITHOUT COMPLICATIONS (7) Hx of heart artery stent Assessment/Plan: Continues be stable for the stents without chest pain or arrhythmia Code(s): Z95.5 - PRESENCE OF CORONARY ANGIOPLASTY IMPLANT AND GRAFT (8) LV (left ventricular) mural thrombus Code(s): JJB0475 - Assessment/Plan IMP: Acute on CKF CHF CAD with five stents recently DM 2 on Insulin LV thrombus Assess: Continue HD with daily assessment , CHF improving with improvement in fluid overload. Dibetic coverage with Regular INsulin
[2017-11-24] MEDS: WARFARIN NA 2 MG TABLET (UD) PO SCH (17:54)
[2017-11-24] MEDS: TAMSULOSIN HCL 0.4 MG CAP.ER.24H (FP) PO SCH (21:55)
[2017-11-24] MEDS: ROSUVASTATIN CA 10 MG TABLET (FP) PO SCH (22:01)
[2017-11-24] MEDS: FUROSEMIDE INJECTION 100 MG in DEXTROSE 5%-WATER - 40 ML IVPB SCH (23:00)
[2017-11-25] MEDS: INSULIN (LEVEMIR) 100 UNITS/ML UNITS SQ SCH (06:07)
[2017-11-25] MEDS: INSULIN SLIDING SCALE (NOVOLOG) 1 VIAL SQ SCH ×3 (06:09→17:00)
[2017-11-25 07:20] LABS: INR 1.61 (0.82-1.09); PROTHROMBIN TIME (PATIENT) 18.2 SEC (9.7-13.0)
[2017-11-25] MEDS: CALCIUM ACETATE 667 MG CAPSULE (FP) PO SCH ×3 (08:45→17:01)
[2017-11-25] MEDS: METOLAZONE 5 MG TABLET PO SCH (09:16)
[2017-11-25] MEDS: hydrALAZINE HCL 25 MG TABLET (FP) PO SCH ×2 (09:16→22:20)
[2017-11-25] MEDS: CLOPIDOGREL BISULFATE 75 MG TABLET (FP) PO SCH (09:16)
[2017-11-25] MEDS: FOLIC ACID 1 MG TABLET (FP) PO SCH (09:16)
[2017-11-25] MEDS: ASPIRIN 81 MG CHEWABLE TABLETS PO SCH (09:16)
[2017-11-25] MEDS: CARVEDILOL 12.5 MG TABLET (FP) PO SCH ×2 (09:16→22:20)
[2017-11-25] MEDS ORDERED: PT OWN MED DRAWER 7, Y5N ONE ×3 (09:22→22:16)
[2017-11-25] MEDS: ISOSORBIDE DINITRATE 20 MG TABLET (FP) PO SCH (09:26)
[2017-11-25 10:39] LABS: BASO % 1.2 % (0-2.0); HEMATOCRIT 26.4 % (35.4-49); HEMOGLOBIN 8.3 GM/dL (11.7-16.9); LYMPH % 13.8 % (8-40); MCH 24.8 pg (25.7-33.7); MCHC 31.3 g/dl (32.0-35.9); MEAN CELL VOLUME 79.3 fl (80-96); MONO % 11.3 % (3.8-10.2); NEUT % 71.7 % (42.8-82.8); PLATELET COUNT 149 K/MM3 (134-434); RBC 3.33 M/mm3 (4.00-5.60); RDW 20.6 % (11.9-15.9); WHITE BLOOD COUNT 7.4 K/mm3 (4.0-10.0)
[2017-11-25 11:07] LABS: ALBUMIN 2.5 g/dl (3.4-5.0); ALK PHOS 168 U/L (45-117); ANION GAP 8 (8-16); BILIRUBIN,TOTAL 0.7 mg/dL (0.2-1.0); BLOOD UREA NITROGEN 69 mg/dL (7-18); CALCIUM 8.4 mg/dL (8.5-10.1); CHLORIDE 98 mmol/L (98-107); CO2 31 mmol/L (21-32); CREATININE 2.5 mg/dL (0.7-1.3); GLUCOSE,RANDOM 220 mg/dL (74-106); MAGNESIUM 2.1 mg/dL (1.8-2.4); PHOSPHOROUS 3.4 mg/dL (2.5-4.9); POTASSIUM 3.8 mmol/L (3.5-5.1); SGOT/AST 21 U/L (15-37); SGPT/ALT 38 U/L (12-78); SODIUM 137 mmol/L (136-145); TOT PROT 5.8 g/dl (6.4-8.2)
--- NOTE | 2017-11-25 11:12 | PN ---
Physical Exam: SUBJECTIVE: Patient seen and examined. No abdominal pain, CP, SOB. Tolerating PO. OBJECTIVE: Vital Signs Period Temp Pulse Resp BP Sys/Simons Pulse Ox Last 24 Hr 98.3 F-99 F 70-84 13-18 115-168/60-90 95-100 Gen: Alert, non-toxic Heart: S1/S2, no M/R/G Lung: Bibasilar rales Abd: softly distended, nontender Ext: + edema, 2+ DP pulses, (+) B/L LE edema Laboratory Results - last 24 hr 11/24/17 11/24/17 11/25/17 15:58 22:04 05:35 WBC RBC Hgb Hct MCV MCH MCHC RDW Plt Count MPV Neutrophils % Lymphocytes % Monocytes % Eosinophils % Basophils % Nucleated RBC % PT with INR 18.20 H INR 1.61 H POC Glucometer [phone] 11/25/17 05:35 WBC 7.4 RBC 3.33 L Hgb 8.3 L Hct 26.4 L MCV 79.3 L MCH 24.8 L MCHC 31.3 L RDW 20.6 H Plt Count 149 MPV 10.0 Neutrophils % 71.7 Lymphocytes % 13.8 D Monocytes % 11.3 H Eosinophils % 2.0 Basophils % 1.2 Nucleated RBC % 0 PT with INR INR POC Glucometer Active Medications Generic Name Dose Route Start Last Admin Trade Name Shaiq PRN Reason Stop Dose Admin Allopurinol 300 mg 11/22/17 10:00 11/24/17 09:47 Zyloprim - PO 300 mg DAILY [facility] Administration Aspirin 81 mg 11/22/17 10:00 11/25/17 09:16 Asa - PO 81 mg DAILY [facility] Administration Calcium Acetate 667 mg 11/22/17 08:00 11/25/17 08:45 Phoslo - PO 667 mg TIDCM [facility] Administration Carvedilol 12.5 mg 11/21/17 22:00 11/25/17 09:16 Coreg - PO 12.5 mg BID [facility] Administration Clopidogrel Bisulfate 75 mg 11/22/17 10:00 11/25/17 09:16 Plavix - PO 75 mg DAILY [facility] Administration Folic Acid 1 mg 11/22/17 10:00 11/25/17 09:16 Folic Acid - PO 1 mg DAILY [facility] Administration Hydralazine HCl 25 mg 11/21/17 22:00 11/25/17 09:16 Apresoline - PO 25 mg BID [facility] Administration Sodium Chloride 250 mls @ 3,000 mls/hr 11/22/17 14:00 Normal Saline - IV PRN PRN Hypotension during Dialysis Furosemide 100 mg/ Dextrose 50 mls @ 2.5 mls/hr 11/22/17 19:17 11/24/17 23:00 IVPB 5 mg/hr TITR [facility] 2.5 mls/hr Administration Protocol 5 MG/HR Insulin Aspart 1 vial 11/22/17 07:00 11/25/17 06:09 Novolog Vial Sliding Scale - SQ 4 units TIDAC [facility] Administration Protocol Insulin Detemir 20 units 11/24/17 07:00 11/25/17 06:07 Levemir Vial SQ 20 units AM [facility] Administration Isosorbide Dinitrate 20 mg 11/22/17 10:00 11/25/17 09:26 Isordil - PO 20 mg DAILY [facility] Administration Metolazone 5 mg 11/22/17 10:00 11/25/17 09:16 Zaroxolyn - PO 5 mg DAILY [facility] Administration Rosuvastatin Calcium 10 mg 11/22/17 22:00 11/24/17 22:01 Crestor - PO 10 mg HS [facility] Administration Tamsulosin HCl 0.4 mg 11/21/17 22:00 11/24/17 21:55 Flomax - PO 0.4 mg HS [facility] Administration Warfarin Sodium 2 mg 11/22/17 18:00 11/23/17 17:32 Coumadin - PO 2 mg SuTuThSa@1800 [facility] Administration Warfarin Sodium 4 mg 11/21/17 19:00 11/24/17 17:54 Coumadin - PO 4 mg MoWeFr@1800 [facility] Administration ASSESSMENT/PLAN: 77 year old male presents to our facility following a likely mechanical fall, patient found to be volume overloaded (hyponatremic hypervolemia), AMS as well as ARF. Patient admitted to ICU for HD initiation. #1 ACUTE ON CHRONIC RENAL FAILURE - HD yesterday, net negative of 60 mL - Patient to receive HD x2, then trial of PO diuretics as per nephrology - Switch Lasix to 100 mg IV BID - R lung congestion grossly unchanged on CXR - Strict I's/O's - Monitor electrolytes - Nephrology following, appreciate recs #2 ACUTE ON CHRONIC SYSTOLIC CHF - Not fluid overloaded on PE - IBETH (08/2017) showed reduced LV function - Continue CoReg, Amiadarone, Hydralazine, Isoridil - Strict I's/O's #3 H/O LV Thrombus - Continue Warfarin, Plavix, ASA #$ HTN - Overnight BP 100's-130's/60's-70's - Continue Coreg, Amiadarone, Hydralazine # IDDM - BS 200's overnight - Continue Levemir and SSI - Target BS 140-180 Patient stable for transfer to inpatient medicine floor. Visit type - Emergency Visit Emergency Visit: No - New Patient This patient is new to me today: Yes Date on this admission: 11/25/17 - Critical Care Critical Care patient: No
--- NOTE | 2017-11-25 11:18 | PN ---
Teaching Attending Note Name of Resident: Samia Thompson ATTENDING PHYSICIAN STATEMENT I saw and evaluated the patient. I reviewed the resident's note and discussed the case with the resident. I agree with the resident's findings and plan as documented. SUBJECTIVE: Pt seen and examined in the ICU. Dialyzed yesterday, breathing continues to improve. Good urine output yesterday on lasix gtt. OBJECTIVE: Vital Signs Period Temp Pulse Resp BP Sys/Simons Pulse Ox Last 24 Hr 98.3 F-99 F 70-84 13-18 115-168/60-90 95-100 Intake & Output 11/22/17 11/23/17 11/24/17 11/25/17 23:59 23:59 23:59 23:59 Intake Total 907.5 675 880 20 Output Total 2130 800 1500 300 Balance -1222.5 -125 -620 -280 Weight 77.8 kg 75.3 kg 74.389 kg 71.94 kg Gen: NAD at rest Heart: RRR Lung: basilar rales Abd: soft, nontender Ext: + edema CBC, BMP 11/25/17 05:35 Active Medications Allopurinol (Zyloprim -) 300 mg PO DAILY [facility] Last Admin: 11/24/17 09:47 Dose: 300 mg Aspirin (Asa -) 81 mg PO DAILY [facility] Last Admin: 11/25/17 09:16 Dose: 81 mg Calcium Acetate (Phoslo -) 667 mg PO TIDCM [facility] Last Admin: 11/25/17 08:45 Dose: 667 mg Carvedilol (Coreg -) 12.5 mg PO BID [facility] Last Admin: 11/25/17 09:16 Dose: 12.5 mg Clopidogrel Bisulfate (Plavix -) 75 mg PO DAILY [facility] Last Admin: 11/25/17 09:16 Dose: 75 mg Folic Acid (Folic Acid -) 1 mg PO DAILY [facility] Last Admin: 11/25/17 09:16 Dose: 1 mg Hydralazine HCl (Apresoline -) 25 mg PO BID [facility] Last Admin: 11/25/17 09:16 Dose: 25 mg Sodium Chloride (Normal Saline -) 250 mls @ 3,000 mls/hr IV PRN PRN PRN Reason: Hypotension during Dialysis Furosemide 100 mg/ Dextrose 50 mls @ 2.5 mls/hr IVPB TITR [facility]; Protocol Last Admin: 11/24/17 23:00 Dose: 5 mg/hr, 2.5 mls/hr Insulin Aspart (Novolog Vial Sliding Scale -) 1 vial SQ TIDAC [facility]; Protocol Last Admin: 11/25/17 06:09 Dose: 4 units Insulin Detemir (Levemir Vial) 20 units SQ AM [facility] Last Admin: 11/25/17 06:07 Dose: 20 units Isosorbide Dinitrate (Isordil -) 20 mg PO DAILY [facility] Last Admin: 11/25/17 09:26 Dose: 20 mg Metolazone (Zaroxolyn -) 5 mg PO DAILY [facility] Last Admin: 11/25/17 09:16 Dose: 5 mg Rosuvastatin Calcium (Crestor -) [address] [facility] Last Admin: 11/24/17 22:01 Dose: 10 mg Tamsulosin HCl (Flomax -) 0.4 mg PO [facility] Last Admin: 11/24/17 21:55 Dose: 0.4 mg Warfarin Sodium (Coumadin -) 2 mg PO SuTuThSa@1800 [facility] Last Admin: 11/23/17 17:32 Dose: 2 mg Warfarin Sodium (Coumadin -) 4 mg PO MoWeFr@1800 [facility] Last Admin: 11/24/17 17:54 Dose: 4 mg ASSESSMENT AND PLAN: Acute on Chronic Renal Failure requiring HD Acute on Chronic Systolic/Diastolic Heart Failure Volume Overload Hyponatremia CAD LV Thrombus HTN DM Hyperlipidemia - continue lasix, zaroxolyn - monitor urine output, creatinine - HD per renal with ultrafiltration - keep net negative - monitor lytes - continue anticoagulation - O2 to keep Spo2 >90% - glucose control - can monitor on floor critical care time spent in reviewing chart, evaluating patient and formulating plan 35 min
[2017-11-25 11:35] LABS: ANISOCYTOSIS 2+; MACROCYTOSIS 1+; OVALOCYTE 1+; PLATELET ESTIMATE NORMAL; TEAR DROP CELLS 1+
[2017-11-25] MEDS: ALLOPURINOL 100 MG TABLET (FP) PO SCH (11:57)
[2017-11-25] MEDS ORDERED: SODIUM CHLORIDE 250 ML IV PRN (13:13)
--- NOTE | 2017-11-25 13:13 | PN ---
Progress Note (short form) - Note Progress Note: Renal follow up for THEE and Volume overlaod Pt seen and examined in the ICU awake and alert feel better but still has sob no N/V/D making urine, schumacher discontinued this am Vital Signs Temperature 98.3 F 11/25/17 10:28 Pulse Rate 84 11/25/17 10:28 Respiratory Rate 18 11/25/17 10:28 Blood Pressure 116/60 11/25/17 10:28 O2 Sat by Pulse Oximetry (%) 95 11/25/17 09:00 Intake & Output 11/22/17 11/23/17 11/24/17 11/25/17 23:59 23:59 23:59 23:59 Intake Total 907.5 675 880 20 Output Total 2130 800 1500 300 Balance -1222.5 -125 -620 -280 Weight 77.8 kg 75.3 kg 74.389 kg 71.94 kg NAD on NC O2 RRR + rales b/l lungs soft NT/ND + edema in LE CBC, BMP 11/25/17 05:35 11/25/17 05:35 Current Medications Allopurinol (Zyloprim -) 300 mg PO DAILY [facility] Last Admin: 11/25/17 11:57 Dose: Not Given Aspirin (Asa -) 81 mg PO DAILY [facility] Last Admin: 11/25/17 09:16 Dose: 81 mg Calcium Acetate (Phoslo -) 667 mg PO TIDCM [facility] Last Admin: 11/25/17 11:53 Dose: 667 mg Carvedilol (Coreg -) 12.5 mg PO BID [facility] Last Admin: 11/25/17 09:16 Dose: 12.5 mg Clopidogrel Bisulfate (Plavix -) 75 mg PO DAILY [facility] Last Admin: 11/25/17 09:16 Dose: 75 mg Folic Acid (Folic Acid -) 1 mg PO DAILY [facility] Last Admin: 11/25/17 09:16 Dose: 1 mg Furosemide (Lasix Injection -) 100 mg IVPB BID@0600,1400 [facility] Hydralazine HCl (Apresoline -) 25 mg PO BID [facility] Last Admin: 11/25/17 09:16 Dose: 25 mg Sodium Chloride (Normal Saline -) 250 mls @ 3,000 mls/hr IV PRN PRN PRN Reason: Hypotension during Dialysis Insulin Aspart (Novolog Vial Sliding Scale -) 1 vial SQ TIDAC [facility]; Protocol Last Admin: 11/25/17 11:56 Dose: 8 units Insulin Detemir (Levemir Vial) 20 units SQ AM [facility] Last Admin: 11/25/17 06:07 Dose: 20 units Isosorbide Dinitrate (Isordil -) 20 mg PO DAILY [facility] Last Admin: 11/25/17 09:26 Dose: 20 mg Metolazone (Zaroxolyn -) 5 mg PO DAILY [facility] Last Admin: 11/25/17 09:16 Dose: 5 mg Rosuvastatin Calcium (Crestor -) 10 mg PO HS [facility] Last Admin: 11/24/17 22:01 Dose: 10 mg Tamsulosin HCl (Flomax -) 0.4 mg PO [facility] Last Admin: 11/24/17 21:55 Dose: 0.4 mg Warfarin Sodium (Coumadin -) 2 mg PO SuTuThSa@1800 [facility] Last Admin: 11/23/17 17:32 Dose: 2 mg Warfarin Sodium (Coumadin -) 4 mg PO MoWeFr@1800 [facility] Last Admin: 11/24/17 17:54 Dose: 4 mg 77 year old gentleman with PMhx of CAD s/p VA, CHF, Hypertension, IDDM, HLD, CKD , with recent THEE who presented from home with fall and found to have THEE and fluid overlaod/CHF. #THEE on CKD in setting of volume overload #Acute CHF #Hypervolemic Hyponatremia #Anemia #CAD s/p dialysis yesterday with ~3L UF weights overall improved from admission but still remains fluid overloaded will change Lasix to 100mg IVPB BID for dialysis in AM with UF as tolerated will attempt to UF to evolemia this week an then monitor for improvement in renal function will give AMY for Anemia with HD tomorrow Florencio Del Cid DO
[2017-11-25] MEDS: FUROSEMIDE 100 MG/10 ML INJECTABLE VIAL IVPB SCH (14:32)
--- NOTE | 2017-11-25 15:16 | PN ---
Progress Note, Physician Chief Complaint: Pt lying in bed; alert; anxious; denies chest pain. History of Present Illness: Mr. Davila is a 77 yo male (b. [place]) w/ pmh of AMI in Jul of this year with subsequent 5 stents during catheterization (and prior NSTEMI a few years ago, also resulting in PCI), systolic/diastolic CHF, HTN, HLD, IDDM, and known left ventricle thrombus (currently on plavix, ASA, and coumadin) who presents following fall earlier today. Per his , who is with him, he slid out of bed and fell on to his right buttock. Did not experience any LOC or dizziness and describes this as a mechanical fall. He has had increasing falls lately and was recently evaluated for similar fall on right side 11/11/17 in [facility]. - Current Medication List Current Medications: Active Medications Allopurinol (Zyloprim -) 300 mg PO DAILY [facility] Last Admin: 11/25/17 11:57 Dose: Not Given Aspirin (Asa -) 81 mg PO DAILY [facility] Last Admin: 11/25/17 09:16 Dose: 81 mg Calcium Acetate (Phoslo -) 667 mg PO TIDCM [facility] Last Admin: 11/25/17 11:53 Dose: 667 mg Carvedilol (Coreg -) 12.5 mg PO BID [facility] Last Admin: 11/25/17 09:16 Dose: 12.5 mg Clopidogrel Bisulfate (Plavix -) 75 mg PO DAILY [facility] Last Admin: 11/25/17 09:16 Dose: 75 mg Epoetin Fahad (Epogen -) 20,000 unit IVPUSH ONCE ONE Stop: 11/26/17 06:01 Folic Acid (Folic Acid -) 1 mg PO DAILY [facility] Last Admin: 11/25/17 09:16 Dose: 1 mg Furosemide (Lasix Injection -) 100 mg IVPB BID@0600,1400 [facility] Last Admin: 11/25/17 14:32 Dose: 100 mg Hydralazine HCl (Apresoline -) 25 mg PO BID [facility] Last Admin: 11/25/17 09:16 Dose: 25 mg Sodium Chloride (Normal Saline -) 250 mls @ 3,000 mls/hr IV PRN PRN PRN Reason: Hypotension during Dialysis Sodium Chloride (Normal Saline -) 250 mls @ 3,000 mls/hr IV PRN PRN PRN Reason: Hypotension during Dialysis Stop: 11/26/17 13:13 Insulin Aspart (Novolog Vial Sliding Scale -) 1 vial SQ TIDAC [facility]; Protocol Last Admin: 11/25/17 11:56 Dose: 8 units Insulin Detemir (Levemir Vial) 20 units SQ AM [facility] Last Admin: 11/25/17 06:07 Dose: 20 units Isosorbide Dinitrate (Isordil -) 20 mg PO DAILY [facility] Last Admin: 11/25/17 09:26 Dose: 20 mg Metolazone (Zaroxolyn -) 5 mg PO DAILY [facility] Last Admin: 11/25/17 09:16 Dose: 5 mg Rosuvastatin Calcium (Crestor -) 10 mg PO [facility] Last Admin: 11/24/17 22:01 Dose: 10 mg Tamsulosin HCl (Flomax -) 0.4 mg PO [facility] Last Admin: 11/24/17 21:55 Dose: 0.4 mg Warfarin Sodium (Coumadin -) 2 mg PO [email or web address] [facility] Last Admin: 11/23/17 17:32 Dose: 2 mg Warfarin Sodium (Coumadin -) 4 mg PO [email or web address] [facility] Last Admin: 11/24/17 17:54 Dose: 4 mg - Objective Vital Signs: Vital Signs Temperature 98.3 F 11/25/17 10:28 Pulse Rate 84 11/25/17 10:28 Respiratory Rate 18 11/25/17 10:28 Blood Pressure 116/60 11/25/17 10:28 O2 Sat by Pulse Oximetry (%) 95 11/25/17 09:00 Constitutional: Yes: Anxious Eyes: Yes: WNL HENT: Yes: WNL Neck: Yes: WNL Cardiovascular: Yes: S1, S2 Respiratory: Yes: WNL Gastrointestinal: Yes: Soft, Distention. No: Tenderness ...Rectal Exam: Yes: Deferred Genitourinary: No: Anuria Musculoskeletal: Yes: Muscle Weakness Extremities: Yes: Cool Edema: Yes Edema: LLE: 1+, RLE: 1+ Peripheral Pulses WNL: No Peripheral Pulses: Left Doralis Pedis: 1+, Right Dorsalis Pedis: 1+ Integumentary: Yes: WNL Neurological: Yes: Alert, Weakness Psychiatric: Yes: Other (anxiety/depression) Labs: CBC, BMP 11/25/17 05:35 05/29/18 05:35 INR, PTT INR 1.61 (0.82-1.09) H 11/25/17 05:35 Abnormal Lab Results 11/25/17 11/25/17 11/25/17 05:35 05:35 05:35 RBC 3.33 L Hgb 8.3 L Hct 26.4 L MCV 79.3 L MCH 24.8 L MCHC 31.3 L RDW 20.6 H Monocytes % 11.3 H PT with INR 18.20 H INR 1.61 H BUN 69 H D Creatinine 2.5 H Random Glucose 220 H D Calcium 8.4 L Alkaline Phosphatase 168 H Total Protein 5.8 L Albumin 2.5 L 11/26/17 06:00 RBC 3.32 L Hgb 8.2 L Hct 26.2 L MCV 79.0 L MCH 24.8 L MCHC 31.4 L RDW 20.7 H Monocytes % 10.7 H PT with INR INR BUN Creatinine Random Glucose Calcium Alkaline Phosphatase Total Protein Albumin - ....Imaging Chest X-ray: Image Reviewed (improved aeration; mild-moderate vascular congestion) Other: Image Reviewed (telemetry: NSR; no arrhythmias) Problem List - Problems (1) Acute on chronic systolic and diastolic heart failure, NYHA class 1 Assessment/Plan: No longer with JVD; Improving CXR TNI < 0.02. On carvedilol, hydralazine+isordil. Now on furosemide IVP 40 mg bid. (ACEI/ARB/and RAAS agent use remain precluded due to poor renal function presently). F/u BUN/Cr, electrolytes, Is and Os, daily weight. Code(s): I50.43 - ACUTE ON CHRONIC COMBINED SYSTOLIC AND DIASTOLIC HRT FAIL (2) Fall Assessment/Plan: Large right LE hip hematoma. Pt has had multiple falls; rhabdomyolysis may have occurred, further compromising pt's renal function. CK now 137. Hb 8.3. Code(s): W19.XXXA - UNSPECIFIED FALL, INITIAL ENCOUNTER Qualifiers: Encounter type: initial encounter Qualified Code(s): W19.XXXA - Unspecified fall, initial encounter (3) Fluid overload Code(s): E87.70 - FLUID OVERLOAD, UNSPECIFIED Qualifiers: Hypervolemia type: unspecified Qualified Code(s): E87.70 - Fluid overload, unspecified (4) Hyponatremia Assessment/Plan: Correction per line fixer; presently on IV furosemide; now with normal Na level. Regarding other electrolytes: Keep K 4-4.5 Mg 2-2.3 PO4 2.5-3.5 Code(s): E87.1 - HYPO-OSMOLALITY AND HYPONATREMIA (5) Anemia Code(s): D64.9 - ANEMIA, UNSPECIFIED Qualifiers: Anemia type: due to chronic kidney disease Chronic kidney disease stage: stage 4 (severe) Qualified Code(s): N18.4 - Chronic kidney disease, stage 4 ( severe); D63.1 - Anemia in chronic kidney disease (6) Anxiety and depression Code(s): F41.8 - OTHER SPECIFIED ANXIETY DISORDERS (7) BPH (benign prostatic hypertrophy) Code(s): N40.0 - BENIGN PROSTATIC HYPERPLASIA WITHOUT LOWER URINRY TRACT SYMP (8) CVA (cerebral infarction) Code(s): I63.9 - CEREBRAL INFARCTION, UNSPECIFIED (9) Diabetes mellitus Code(s): E11.9 - TYPE 2 DIABETES MELLITUS WITHOUT COMPLICATIONS Qualifiers: Diabetes mellitus complication status: with ophthalmic complications Diabetes mellitus complication detail: with diabetic retinopathy (10) HTN (hypertension) Code(s): I10 - ESSENTIAL (PRIMARY) HYPERTENSION (11) Hx of heart artery stent Assessment/Plan: s/p [place] x 2; five coronary stents placed 07/2017 at [facility]. Continue dual antiplatetlet Rx. Pt is also on warfarin for apical thrombus (INR presently subtherapeutic); follow stool quaiac, Hb closely in view of the higher risk of bleed while on this "triple therapy". Aggressive control of lipids (on statin; would increase dose) while simultaneously following LFTs, which have normalized. Code(s): Z95.5 - PRESENCE OF CORONARY ANGIOPLASTY IMPLANT AND GRAFT (12) LV (left ventricular) mural thrombus Assessment/Plan: On warfarin; keep INR 2-3 Code(s): [id number] - (13) Renal dysfunction Assessment/Plan: Received IVP furosemide in ER, then IV drip; now on IVP bid.. F/u Is and Os, electrolytes. Per line fixer, may require hemodialysis if response to above is inadequate. Code(s): N28.9 - DISORDER OF KIDNEY AND URETER, UNSPECIFIED (14) Status post myocardial infarction Code(s): I25.2 - OLD MYOCARDIAL INFARCTION (15) Syncope Code(s): R55 - SYNCOPE AND COLLAPSE (16) Sleep apnea Assessment/Plan: Rx per human projectile. Code(s): G47.30 - SLEEP APNEA, UNSPECIFIED (17) Hyperlipidemia Assessment/Plan: On rosuvastatin 10 mg qd; LDL cholesterol 70 mg/dL on 08/2017; consider increasing the dose, given pt's significant vasculopathy. (AST elevated nearly x 3 initially, likely from "passive congestion" with CHF; now WNL). Code(s): E78.5 - HYPERLIPIDEMIA, UNSPECIFIED Assessment/Plan CCU time spent: 40 minutes.
[2017-11-25] MEDS: WARFARIN NA 2 MG TABLET (UD) PO SCH (17:01)
[2017-11-25] MEDS ORDERED: HEMOQUE TEST 1 EACH EACH ONE (19:50)
[2017-11-25] MEDS: TAMSULOSIN HCL 0.4 MG CAP.ER.24H (FP) PO SCH (22:20)
[2017-11-25] MEDS: ROSUVASTATIN CA 10 MG TABLET (FP) PO SCH (23:26)
[2017-11-26] MEDS: FUROSEMIDE 100 MG/10 ML INJECTABLE VIAL IVPB SCH ×2 (05:43→14:18)
[2017-11-26] MEDS: INSULIN SLIDING SCALE (NOVOLOG) 1 VIAL SQ SCH ×3 (06:01→17:22)
[2017-11-26] MEDS: INSULIN (LEVEMIR) 100 UNITS/ML UNITS SQ SCH (06:02)
[2017-11-26 06:30] LABS: BASO % 1.1 % (0-2.0); EOS % 2.6 % (0-4.5); HEMATOCRIT 26.2 % (35.4-49); HEMOGLOBIN 8.2 GM/dL (11.7-16.9); LYMPH % 13.5 % (8-40); MCH 24.8 pg (25.7-33.7); MCHC 31.4 g/dl (32.0-35.9); MEAN PLT VOLUME 9.1 fl (7.5-11.1); MONO % 10.7 % (3.8-10.2); NEUT % 72.1 % (42.8-82.8); PLATELET COUNT 136 K/MM3 (134-434); RBC 3.32 M/mm3 (4.00-5.60); RDW 20.7 % (11.9-15.9); WHITE BLOOD COUNT 7.9 K/mm3 (4.0-10.0)
[2017-11-26 06:48] LABS: ANION GAP 10 (8-16); BLOOD UREA NITROGEN 93 mg/dL (7-18); CALCIUM 8.2 mg/dL (8.5-10.1); CHLORIDE 96 mmol/L (98-107); CO2 31 mmol/L (21-32); CREATININE 2.9 mg/dL (0.7-1.3); POTASSIUM 3.8 mmol/L (3.5-5.1); SODIUM 137 mmol/L (136-145)
[2017-11-26 07:36] LABS: GLUCOSE,RANDOM 316 mg/dL (74-106)
[2017-11-26 08:37] LABS: ALBUMIN 2.5 g/dl (3.4-5.0); ALK PHOS 153 U/L (45-117); BILIRUBIN,TOTAL 0.6 mg/dL (0.2-1.0); PHOSPHOROUS 4.3 mg/dL (2.5-4.9); SGOT/AST 17 U/L (15-37); SGPT/ALT 33 U/L (12-78); TOT PROT 5.8 g/dl (6.4-8.2)
[2017-11-26] MEDS ORDERED: EPOETIN ALFA 20,000 UNIT/1 ML VIAL IVPUSH ONE (09:00)
[2017-11-26] MEDS: CALCIUM ACETATE 667 MG CAPSULE (FP) PO SCH ×3 (09:13→17:20)
[2017-11-26] MEDS: METOLAZONE 5 MG TABLET PO SCH (12:00)
--- NOTE | 2017-11-26 12:03 | PN ---
Teaching Attending Note Name of Resident: Evelyn Arguello ATTENDING PHYSICIAN STATEMENT I saw and evaluated the patient. I reviewed the resident's note and discussed the case with the resident. I agree with the resident's findings and plan as documented. SUBJECTIVE: Pt seen and examined in the ICU. Getting dialyzed this AM. Breathing continues to improve. OBJECTIVE: Vital Signs Period Temp Pulse Resp BP Sys/Simons Pulse Ox Last 24 Hr 98.0 F-99.5 F 75-112 14-22 116-139/61-91 100-100 Intake & Output 11/23/17 11/24/17 11/25/17 11/26/17 23:59 23:59 23:59 23:59 Intake Total 675 880 650 110 Output Total 800 1500 650 Balance -125 -620 0 110 Weight 75.3 kg 74.389 kg 71.94 kg 72.938 kg Gen: NAD at rest Heart: RRR Lung: bibasilar rales Abd: soft, nontender Ext: no edema CBC, BMP 11/26/17 06:00 11/26/17 06:00 Active Medications Allopurinol (Zyloprim -) 300 mg PO DAILY [facility] Last Admin: 11/25/17 11:57 Dose: Not Given Aspirin (Asa -) 81 mg PO DAILY [facility] Last Admin: 11/25/17 09:16 Dose: 81 mg Calcium Acetate (Phoslo -) 667 mg PO TIDCM [facility] Last Admin: 11/26/17 09:13 Dose: 667 mg Carvedilol (Coreg -) 12.5 mg PO BID [facility] Last Admin: 11/25/17 22:20 Dose: 12.5 mg Clopidogrel Bisulfate (Plavix -) 75 mg PO DAILY [facility] Last Admin: 11/25/17 09:16 Dose: 75 mg Folic Acid (Folic Acid -) 1 mg PO DAILY [facility] Last Admin: 11/25/17 09:16 Dose: 1 mg Furosemide (Lasix Injection -) 100 mg IVPB BID@0600,1400 [facility] Last Admin: 11/26/17 05:43 Dose: 100 mg Hydralazine HCl (Apresoline -) 25 mg PO BID [facility] Last Admin: 11/25/17 22:20 Dose: 25 mg Sodium Chloride (Normal Saline -) 250 mls @ 3,000 mls/hr IV PRN PRN PRN Reason: Hypotension during Dialysis Sodium Chloride (Normal Saline -) 250 mls @ 3,000 mls/hr IV PRN PRN PRN Reason: Hypotension during Dialysis Stop: 11/26/17 13:13 Insulin Aspart (Novolog Vial Sliding Scale -) 1 vial SQ TIDAC [facility]; Protocol Last Admin: 11/26/17 06:01 Dose: 8 units Insulin Detemir (Levemir Vial) 20 units SQ AM [facility] Last Admin: 11/26/17 06:02 Dose: 20 units Isosorbide Dinitrate (Isordil -) 20 mg PO DAILY [facility] Last Admin: 11/25/17 09:26 Dose: 20 mg Metolazone (Zaroxolyn -) 5 mg PO DAILY [facility] Last Admin: 11/25/17 09:16 Dose: 5 mg Rosuvastatin Calcium (Crestor -) [address] [facility] Last Admin: 11/25/17 23:26 Dose: 10 mg Tamsulosin HCl (Flomax -) 0.[address] [facility] Last Admin: 11/25/17 22:20 Dose: 0.4 mg Warfarin Sodium (Coumadin -) 2 mg PO [email or web address] [facility] Last Admin: 11/25/17 17:01 Dose: 2 mg Warfarin Sodium (Coumadin -) 4 mg PO [email or web address] [facility] Last Admin: 11/24/17 17:54 Dose: 4 mg ASSESSMENT AND PLAN: Acute on Chronic Renal Failure requiring HD Acute on Chronic Systolic/Diastolic Heart Failure Volume Overload Hyponatremia CAD LV Thrombus HTN DM Hyperlipidemia - continue lasix, zaroxolyn - monitor urine output, creatinine - HD per renal with ultrafiltration - keep net negative - monitor lytes - continue anticoagulation - O2 to keep Spo2 >90% - glucose control - can monitor on floor
[2017-11-26] MEDS ORDERED: SODIUM CHLORIDE 250 ML IV PRN ×2 (12:23→14:40)
[2017-11-26] MEDS: hydrALAZINE HCL 25 MG TABLET (FP) PO SCH ×2 (12:47→23:05)
[2017-11-26] MEDS: ALLOPURINOL 100 MG TABLET (FP) PO SCH (12:47)
[2017-11-26] MEDS: FOLIC ACID 1 MG TABLET (FP) PO SCH (12:47)
--- NOTE | 2017-11-26 12:47 | PN ---
Progress Note, Physician History of Present Illness: Mr. Davila is a 77 yo male (b. [place]) w/ pmh of AMI in Jul of this year with subsequent 5 stents during catheterization (and prior NSTEMI a few years ago, also resulting in PCI), systolic/diastolic CHF, HTN, HLD, IDDM, and known left ventricle thrombus (currently on plavix, ASA, and coumadin) who presents following fall earlier today. Per his , who is with him, he slid out of bed and fell on to his right buttock. Did not experience any LOC or dizziness and describes this as a mechanical fall. He has had increasing falls lately and was recently evaluated for similar fall on right side 11/11/17 in [facility]. - Current Medication List Current Medications: Active Medications Albumin Human (Albumin Human 25%) 12.5 gm IVPB Q30M [facility] Allopurinol (Zyloprim -) 300 mg PO DAILY [facility] Last Admin: 11/25/17 11:57 Dose: Not Given Aspirin (Asa -) 81 mg PO DAILY [facility] Last Admin: 11/25/17 09:16 Dose: 81 mg Calcium Acetate (Phoslo -) 667 mg PO TIDCM [facility] Last Admin: 11/26/17 09:13 Dose: 667 mg Carvedilol (Coreg -) 12.5 mg PO BID [facility] Last Admin: 11/25/17 22:20 Dose: 12.5 mg Clopidogrel Bisulfate (Plavix -) 75 mg PO DAILY [facility] Last Admin: 11/25/17 09:16 Dose: 75 mg Folic Acid (Folic Acid -) 1 mg PO DAILY [facility] Last Admin: 11/25/17 09:16 Dose: 1 mg Furosemide (Lasix Injection -) 100 mg IVPB BID@0600,1400 [facility] Last Admin: 11/26/17 05:43 Dose: 100 mg Hydralazine HCl (Apresoline -) 25 mg PO BID [facility] Last Admin: 11/25/17 22:20 Dose: 25 mg Sodium Chloride (Normal Saline -) 250 mls @ 3,000 mls/hr IV PRN PRN PRN Reason: Hypotension during Dialysis Sodium Chloride (Normal Saline -) 250 mls @ 3,000 mls/hr IV PRN PRN PRN Reason: Hypotension during Dialysis Stop: 11/26/17 13:13 Sodium Chloride (Normal Saline -) 250 mls @ 3,000 mls/hr IV PRN PRN PRN Reason: Hypotension during Dialysis Stop: 11/27/17 12:24 Insulin Aspart (Novolog Vial Sliding Scale -) 1 vial SQ TIDAC [facility]; Protocol Last Admin: 11/26/17 06:01 Dose: 8 units Insulin Detemir (Levemir Vial) 20 units SQ AM [facility] Last Admin: 11/26/17 06:02 Dose: 20 units Isosorbide Dinitrate (Isordil -) 20 mg PO DAILY [facility] Last Admin: 11/25/17 09:26 Dose: 20 mg Metolazone (Zaroxolyn -) 5 mg PO DAILY [facility] Last Admin: 11/25/17 09:16 Dose: 5 mg Rosuvastatin Calcium (Crestor -) 10 mg PO [facility] Last Admin: 11/25/17 23:26 Dose: 10 mg Tamsulosin HCl (Flomax -) 0.4 mg PO [facility] Last Admin: 11/25/17 22:20 Dose: 0.4 mg Warfarin Sodium (Coumadin -) 2 mg PO [email or web address] [facility] Last Admin: 11/25/17 17:01 Dose: 2 mg Warfarin Sodium (Coumadin -) 4 mg PO [email or web address] [facility] Last Admin: 11/24/17 17:54 Dose: 4 mg - Objective Vital Signs: Vital Signs Temperature 98.0 F 11/26/17 10:00 Pulse Rate 80 11/26/17 10:20 Respiratory Rate 14 11/26/17 10:20 Blood Pressure 125/78 11/26/17 10:20 O2 Sat by Pulse Oximetry (%) 100 11/25/17 22:00 Eyes: Yes: WNL, Conjunctiva Clear, EOM Intact HENT: Yes: WNL, Atraumatic, Normocephalic Neck: Yes: WNL, Supple, Trachea Midline Cardiovascular: Yes: WNL, Regular Rate and Rhythm Respiratory: Yes: WNL, Regular, CTA Bilaterally Gastrointestinal: Yes: WNL, Normal Bowel Sounds Genitourinary: Yes: WNL Musculoskeletal: Yes: WNL Extremities: Yes: WNL Edema: No Integumentary: Yes: WNL Neurological: Yes: WNL, Alert, Oriented ...Motor Strength: WNL Psychiatric: Yes: WNL Labs: CBC, BMP 11/26/17 06:00 11/26/17 06:00 INR, PTT INR 1.61 (0.82-1.09) H 11/25/17 05:35 Assessment/Plan - Problems (1) Acute on chronic systolic and diastolic heart failure, NYHA class 1 Assessment/Plan: No longer with JVD; Improving CXR TNI < 0.02. On carvedilol, hydralazine+isordil. Now on furosemide IVP 40 mg bid. (ACEI/ARB/and RAAS agent use remain precluded due to poor renal function presently). F/u BUN/Cr, electrolytes, Is and Os, daily weight. Code(s): I50.43 - ACUTE ON CHRONIC COMBINED SYSTOLIC AND DIASTOLIC HRT FAIL (2) Fall Assessment/Plan: Large right LE hip hematoma. Pt has had multiple falls; rhabdomyolysis may have occurred, further compromising pt's renal function. CK now 137. Hb 8.3. Code(s): W19.XXXA - UNSPECIFIED FALL, INITIAL ENCOUNTER Qualifiers: Encounter type: initial encounter Qualified Code(s): W19.XXXA - Unspecified fall, initial encounter (3) Fluid overload Code(s): E87.70 - FLUID OVERLOAD, UNSPECIFIED Qualifiers: Hypervolemia type: unspecified Qualified Code(s): E87.70 - Fluid overload, unspecified (4) Hyponatremia Assessment/Plan: Correction per type rolling machine operator; presently on IV furosemide; now with normal Na level. Regarding other electrolytes: Keep K 4-4.5 Mg 2-2.3 PO4 2.5-3.5 Code(s): E87.1 - HYPO-OSMOLALITY AND HYPONATREMIA (5) Anemia Code(s): D64.9 - ANEMIA, UNSPECIFIED Qualifiers: Anemia type: due to chronic kidney disease Chronic kidney disease stage: stage 4 (severe) Qualified Code(s): N18.4 - Chronic kidney disease, stage 4 ( severe); D63.1 - Anemia in chronic kidney disease (6) Anxiety and depression Code(s): F41.8 - OTHER SPECIFIED ANXIETY DISORDERS (7) BPH (benign prostatic hypertrophy) Code(s): N40.0 - BENIGN PROSTATIC HYPERPLASIA WITHOUT LOWER URINRY TRACT SYMP (8) CVA (cerebral infarction) Code(s): I63.9 - CEREBRAL INFARCTION, UNSPECIFIED (9) Diabetes mellitus Code(s): E11.9 - TYPE 2 DIABETES MELLITUS WITHOUT COMPLICATIONS Qualifiers: Diabetes mellitus complication status: with ophthalmic complications Diabetes mellitus complication detail: with diabetic retinopathy (10) HTN (hypertension) Code(s): I10 - ESSENTIAL (PRIMARY) HYPERTENSION (11) Hx of heart artery stent Assessment/Plan: s/p [place] x 2; five coronary stents placed 07/2017 at [facility]. Continue dual antiplatetlet Rx. Pt is also on warfarin for apical thrombus (INR presently subtherapeutic); follow stool quaiac, Hb closely in view of the higher risk of bleed while on this "triple therapy". Aggressive control of lipids (on statin; would increase dose) while simultaneously following LFTs, which have normalized. Code(s): Z95.5 - PRESENCE OF CORONARY ANGIOPLASTY IMPLANT AND GRAFT (12) LV (left ventricular) mural thrombus Assessment/Plan: On warfarin; keep INR 2-3 Code(s): [id number] - (13) Renal dysfunction Assessment/Plan: Received IVP furosemide in ER, then IV drip; now on IVP bid.. F/u Is and Os, electrolytes. Per type rolling machine operator, may require hemodialysis if response to above is inadequate. Code(s): N28.9 - DISORDER OF KIDNEY AND URETER, UNSPECIFIED (14) Status post myocardial infarction Code(s): I25.2 - OLD MYOCARDIAL INFARCTION (15) Syncope Code(s): R55 - SYNCOPE AND COLLAPSE (16) Sleep apnea Assessment/Plan: Rx per coverage specialist. Code(s): G47.30 - SLEEP APNEA, UNSPECIFIED (17) Hyperlipidemia Assessment/Plan: On rosuvastatin 10 mg qd; LDL cholesterol 70 mg/dL on 08/2017; consider increasing the dose, given pt's significant vasculopathy. (AST elevated nearly x 3 initially, likely from "passive congestion" with CHF; now WNL). Code(s): E78.5 - HYPERLIPIDEMIA, UNSPECIFIED Assessment/Plan CCU time spent: 36 minutes.
[2017-11-26] MEDS: CARVEDILOL 12.5 MG TABLET (FP) PO SCH ×2 (12:48→23:05)
[2017-11-26] MEDS: ISOSORBIDE DINITRATE 20 MG TABLET (FP) PO SCH (12:48)
[2017-11-26] MEDS: CLOPIDOGREL BISULFATE 75 MG TABLET (FP) PO SCH (12:48)
[2017-11-26] MEDS: ASPIRIN 81 MG CHEWABLE TABLETS PO SCH (12:48)
[2017-11-26] MEDS ORDERED: INSULIN (LEVEMIR) 100 UNITS/ML UNITS SQ SCH (13:51)
[2017-11-26] MEDS ORDERED: INSULIN (NOVOLOG) ASPART 100 UNITS/ML 10ML VIAL SQ ONE ×2 (14:40→17:45)
--- NOTE | 2017-11-26 16:03 | PN ---
Physical Exam: SUBJECTIVE: Patient seen and examined;s/p hemodialysis this am. Denies [place]/SOB/ CP; edema improved. OBJECTIVE: Vital Signs Period Temp Pulse Resp BP Sys/Simons Pulse Ox Last 24 Hr 98 F-99.5 F 75-91 14-22 109-142/59-81 98-100 GENERAL: The patient is awake, alert, and fully oriented, in no acute distress. LUNGS: mild bi basilar crackles HEART: Regular rate and rhythm, S1, S2 without murmur, rub or gallop. ABDOMEN: Soft, nontender, nondistended, normoactive bowel sounds, EXTREMITIES: 2+ pulses, warm, well-perfused, 1+ edema Laboratory Results - last 24 hr 11/22/17 11/25/17 11/26/17 16:30 15:56 06:00 WBC 7.9 RBC 3.32 L Hgb 8.2 L Hct 26.2 L MCV 79.0 L MCH 24.8 L MCHC 31.4 L RDW 20.7 H Plt Count 136 MPV 9.1 Neutrophils % 72.1 Lymphocytes % 13.5 Monocytes % 10.7 H Eosinophils % 2.6 Basophils % 1.1 Nucleated RBC % 0 Sodium Potassium Chloride Carbon Dioxide Anion Gap BUN Creatinine Creat Clearance w eGFR Random Glucose Calcium Phosphorus Ferritin 51.426 Total Bilirubin AST ALT Alkaline Phosphatase Total Protein Albumin Free T4 Hep C Ab Diagnostic 0.2 Liver Fibrosis Interp 11/26/17 11/26/17 06:00 06:00 WBC RBC Hgb Hct MCV MCH MCHC RDW Plt Count MPV Neutrophils % Lymphocytes % Monocytes % Eosinophils % Basophils % Nucleated RBC % Sodium 137 Cancelled Potassium 3.8 Cancelled Chloride 96 L Cancelled Carbon Dioxide 31 Cancelled Anion Gap 10 Cancelled BUN 93 H D Cancelled Creatinine 2.9 H Cancelled Creat Clearance w eGFR No Result Required. Cancelled Random Glucose 316 H* D Cancelled Calcium 8.2 L Cancelled Phosphorus 4.3 D Cancelled Ferritin Total Bilirubin 0.6 Cancelled AST 17 Cancelled ALT 33 Cancelled Alkaline Phosphatase 153 H Cancelled Total Protein 5.8 L Cancelled Albumin 2.5 L Cancelled Free T4 0.95 Cancelled Hep C Ab Diagnostic Liver Fibrosis Interp Active Medications Generic Name Dose Route Start Last Admin Trade Name Freq PRN Reason Stop Dose Admin Albumin Human 12.5 gm 11/27/17 06:00 Albumin Human 25% IVPB Q30M [facility] Allopurinol 300 mg 11/27/17 10:00 Zyloprim - PO DAILY [facility] Aspirin 81 mg 11/27/17 10:00 Asa - PO DAILY [facility] Calcium Acetate 667 mg 11/26/17 17:30 Phoslo - PO TIDCM [facility] Carvedilol 12.5 mg 11/26/17 22:00 Coreg - PO BID [facility] Clopidogrel Bisulfate 75 mg 11/27/17 10:00 Plavix - PO DAILY [facility] Folic Acid 1 mg 11/27/17 10:00 Folic Acid - PO DAILY [facility] Furosemide 100 mg 11/25/17 14:00 11/26/17 14:18 Lasix Injection - IVPB 100 mg BID@0600,1400 [facility] Administration Hydralazine HCl 25 mg 11/26/17 22:00 Apresoline - PO BID [facility] Sodium Chloride 250 mls @ 3,000 mls/hr 11/26/17 12:23 Normal Saline - IV 11/27/17 12:24 PRN PRN Hypotension during Dialysis Insulin Aspart 1 vial 11/26/17 16:30 Novolog Vial Sliding Scale - SQ TIDAC [facility] Protocol Insulin Detemir 35 units 11/26/17 13:51 Levemir Vial SQ AM [facility] Isosorbide Dinitrate 20 mg 11/27/17 10:00 Isordil - PO DAILY [facility] Metolazone 5 mg 11/27/17 10:00 Zaroxolyn - PO DAILY [facility] Rosuvastatin Calcium 10 mg 11/26/17 22:00 Crestor - PO HS [facility] Tamsulosin HCl 0.4 mg 11/26/17 22:00 Flomax - PO HS [facility] Warfarin Sodium 2 mg 11/27/17 18:00 Coumadin - PO [email or web address] [facility] Warfarin Sodium 4 mg 11/26/17 18:00 Coumadin - PO [email or web address] [facility] ASSESSMENT/PLAN: This is a 77 year old male with a history of CHF, DM, CAD, Anemia, CKD presents in volume overload. #Acute CHF #Hypervolemic Hyponatremia #Anemia #CAD #THEE on CKD -HD today; -cont lasix 100mg IV BID -strict I/Os -daily weights -epogen for anemia sec to ckd -cont dual antiplatelet for replaced valve and LV thrombus -lfts normalized -debbie nephro/cardio stable to transfer to tele Visit type - Emergency Visit Emergency Visit: Yes ED Registration Date: 11/21/17 Care time: The patient presented to the Emergency Department on the above date and was hospitalized for further evaluation of their emergent condition. - New Patient This patient is new to me today: Yes Date on this admission: 11/26/17 - Critical Care Critical Care patient: Yes Total Critical Care Time (in minutes): 35 Critical Care Statement: The care of this patient involved high complexity decision making to prevent further life threatening deterioration of the patient 's condition and/or to evaluate & treat vital organ system(s) failure or risk of failure.
[2017-11-26] MEDS: WARFARIN NA 2 MG TABLET (UD) PO SCH (17:20)
--- NOTE | 2017-11-26 17:35 | PN ---
Progress Note (short form) - Note Progress Note: Renal follow up for THEE and Volume overlaod Pt seen and examined in the ICU earlier today s/p dialysis with 3.5kg UF BP stable pt reports feeling a little better Vital Signs Temperature 98 F 11/26/17 14:30 Pulse Rate 78 11/26/17 14:30 Respiratory Rate 20 11/26/17 14:30 Blood Pressure 140/70 11/26/17 14:30 O2 Sat by Pulse Oximetry (%) 98 11/26/17 14:00 Intake & Output 11/23/17 11/24/17 11/25/17 11/26/17 23:59 23:59 23:59 23:59 Intake Total 675 880 650 380 Output Total 800 1500 650 Balance -125 -620 0 380 Weight 75.3 kg 74.389 kg 71.94 kg 72.938 kg NAD on NC O2 RRR + rales b/l lungs soft NT/ND + edema in LE CBC, BMP 11/26/17 06:00 11/26/17 06:00 Laboratory Tests 11/21/17 11/21/17 11/21/17 11:26 11:30 11:30 Calcium 8.1 L Phosphorus Creatine Kinase 129 Troponin I < 0.02 D B-Natriuretic Peptide 7918.00 H Albumin 2.7 L Urine Protein 1+ H 11/26/17 06:00 Calcium 8.2 L Phosphorus 4.3 D Creatine Kinase Troponin I B-Natriuretic Peptide Albumin 2.5 L Urine Protein Current Medications Albumin Human (Albumin Human 25%) 12.5 gm IVPB Q30M [facility] Allopurinol (Zyloprim -) 300 mg PO DAILY [facility] Aspirin (Asa -) 81 mg PO DAILY [facility] Calcium Acetate (Phoslo -) 667 mg PO TIDCM [facility] Last Admin: 11/26/17 17:20 Dose: 667 mg Carvedilol (Coreg -) 12.5 mg PO BID [facility] Clopidogrel Bisulfate (Plavix -) 75 mg PO DAILY [facility] Folic Acid (Folic Acid -) 1 mg PO DAILY [facility] Furosemide (Lasix Injection -) 100 mg IVPB BID@0600,1400 [facility] Last Admin: 11/26/17 14:18 Dose: 100 mg Hydralazine HCl (Apresoline -) 25 mg PO BID [facility] Sodium Chloride (Normal Saline -) 250 mls @ 3,000 mls/hr IV PRN PRN PRN Reason: Hypotension during Dialysis Stop: 11/27/17 12:24 Insulin Aspart (Novolog Vial Sliding Scale -) 1 vial SQ TIDAC [facility]; Protocol Last Admin: 11/26/17 17:22 Dose: 10 units Insulin Detemir (Levemir Vial) 35 units SQ AM [facility] Isosorbide Dinitrate (Isordil -) 20 mg PO DAILY [facility] Metolazone (Zaroxolyn -) 5 mg PO DAILY [facility] Rosuvastatin Calcium (Crestor -) 10 mg PO HS [facility] Tamsulosin HCl (Flomax -) 0.4 mg PO HS [facility] Warfarin Sodium (Coumadin -) 2 mg PO SuTuThSa@1800 [facility] Warfarin Sodium (Coumadin -) 4 mg PO MoWeFr@1800 [facility] Last Admin: 11/26/17 17:20 Dose: 4 mg 77 year old gentleman with PMhx of CAD s/p [place], CHF, Hypertension, IDDM, HLD, CKD , with recent THEE who presented from home with fall and found to have THEE and fluid overlaod/CHF. #THEE on CKD in setting of volume overload #Acute CHF #Hypervolemic Hyponatremia #Anemia #CAD for additional dialysis tomorrow with UF as tolerated dialysis catheter can be removed after session continue Lasix BID and Metolazone iron studies pending will monitor renal function off dialysis following tomorrow Florencio Del Cid DO
[2017-11-26] MEDS: ROSUVASTATIN CA 10 MG TABLET (FP) PO SCH (23:04)
[2017-11-26] MEDS: TAMSULOSIN HCL 0.4 MG CAP.ER.24H (FP) PO SCH (23:05)
[2017-11-27 00:07] LABS: HBSAG SCREEN Negative (Negative); HEP A AB, IGM Negative (Negative); HEP B CORE AB, TOT Negative (Negative)
[2017-11-27] MEDS: FUROSEMIDE 100 MG/10 ML INJECTABLE VIAL IVPB SCH ×2 (05:59→16:36)
[2017-11-27] MEDS ORDERED: ALBUMIN HUMAN 25% 12.5 GM/50 ML VIAL IVPB SCH (06:00)
[2017-11-27] MEDS: INSULIN SLIDING SCALE (NOVOLOG) 1 VIAL SQ SCH ×3 (06:35→17:43)
[2017-11-27] MEDS: INSULIN (LEVEMIR) 100 UNITS/ML UNITS SQ SCH (08:31)
[2017-11-27] MEDS: CALCIUM ACETATE 667 MG CAPSULE (FP) PO SCH ×3 (08:31→17:45)
[2017-11-27] MEDS ORDERED: PT OWN MED DRAWER 7, Y5N ONE (09:07)
[2017-11-27] MEDS ORDERED: INSULIN (LEVEMIR) 100 UNITS/ML UNITS SQ SCH (10:00)
[2017-11-27 10:12] LABS: SERUM IRON SATURATION 14 % (15-55); TOTAL IRON BINDING CAPACITY 300 ug/dL (250-450); UIBC 257 ug/dL (111-343)
--- NOTE | 2017-11-27 11:45 | PN ---
Progress Note (short form) - Note Progress Note: More comfortable on NC O2. Currently on HD. Reports SOB is improving. No CP. Intake & Output 11/24/17 11/25/17 11/26/17 11/27/17 23:59 23:59 23:59 23:59 Intake Total 880 650 480 500 Output Total 1500 650 Balance -620 0 480 500 Weight 164 lb 158 lb 9.6 oz 160 lb 12.8 oz 167 lb Last Vital Signs Temp Pulse Resp BP Pulse Ox 98 F 66 20 118/20 99 11/27/17 08:28 11/27/17 08:28 11/27/17 08:28 11/27/17 08:28 11/27/17 06:00 Active Medications Albumin Human (Albumin Human 25%) 12.5 gm IVPB Q30M [facility] Allopurinol (Zyloprim -) 300 mg PO DAILY [facility] Aspirin (Asa -) 81 mg PO DAILY [facility] Calcium Acetate (Phoslo -) 667 mg PO TIDCM [facility] Last Admin: 11/27/17 08:31 Dose: 667 mg Carvedilol (Coreg -) 12.5 mg PO BID [facility] Last Admin: 11/26/17 23:05 Dose: 12.5 mg Clopidogrel Bisulfate (Plavix -) 75 mg PO DAILY [facility] Folic Acid (Folic Acid -) 1 mg PO DAILY [facility] Furosemide (Lasix Injection -) 100 mg IVPB BID@0600,1400 [facility] Last Admin: 11/27/17 05:59 Dose: 100 mg Hydralazine HCl (Apresoline -) 25 mg PO BID [facility] Last Admin: 11/26/17 23:05 Dose: 25 mg Sodium Chloride (Normal Saline -) 250 mls @ 3,000 mls/hr IV PRN PRN PRN Reason: Hypotension during Dialysis Stop: 11/27/17 12:24 Insulin Aspart (Novolog Vial Sliding Scale -) 1 vial SQ TIDAC [facility]; Protocol Last Admin: 11/27/17 06:35 Dose: 6 units Insulin Detemir (Levemir Vial) 35 units SQ DAILY@0700 [facility] Last Admin: 11/27/17 08:31 Dose: 35 units Isosorbide Dinitrate (Isordil -) 20 mg PO DAILY [facility] Metolazone (Zaroxolyn -) 5 mg PO DAILY [facility] Rosuvastatin Calcium (Crestor -) 10 mg PO HS [facility] Last Admin: 11/26/17 23:04 Dose: 10 mg Tamsulosin HCl (Flomax -) 0.4 mg PO [facility] Last Admin: 11/26/17 23:05 Dose: 0.4 mg Warfarin Sodium (Coumadin -) 2 mg PO SuTuThSa@1800 [facility] Warfarin Sodium (Coumadin -) 4 mg PO MoWeFr@1800 [facility] Last Admin: 11/26/17 17:20 Dose: 4 mg Gen: NAD at rest Heart: RRR Lung: bibasilar rales Abd: soft, nontender Ext: less edema Laboratory Results - last 24 hr 11/22/17 11/25/17 11/25/17 16:30 05:40 10:47 Creat Clearance w eGFR POC Glucometer 291.51769 375.98148 Iron TIBC Iron Saturation Hep A IgM Ab Confirm Negative Hepatitis A Ab Total Positive H Hep Bs Antigen Negative Hep Bs Antibody Non reactive Hep B Core Total Ab Negative 11/25/17 11/25/17 11/25/17 15:56 16:11 19:56 Creat Clearance w eGFR POC Glucometer > 400 350.91442 Iron 43 TIBC 300 Iron Saturation 14 L Hep A IgM Ab Confirm Hepatitis A Ab Total Hep Bs Antigen Hep Bs Antibody Hep B Core Total Ab 11/26/17 11/26/17 11/26/17 05:33 06:00 12:26 Creat Clearance w eGFR No Result Required. POC Glucometer 367.98286 > 400 Iron TIBC Iron Saturation Hep A IgM Ab Confirm Hepatitis A Ab Total Hep Bs Antigen Hep Bs Antibody Hep B Core Total Ab 11/26/17 11/26/17 11/27/17 17:17 23:02 06:09 Creat Clearance w eGFR POC Glucometer 448 334 305 Iron TIBC Iron Saturation Hep A IgM Ab Confirm Hepatitis A Ab Total Hep Bs Antigen Hep Bs Antibody Hep B Core Total Ab ASSESSMENT AND PLAN: Acute on Chronic Renal Failure requiring HD Acute on Chronic Systolic/Diastolic Heart Failure Volume Overload Hyponatremia CAD LV Thrombus HTN DM Hyperlipidemia - HD Per Renal - Lasix, zaroxolyn - monitor urine output, creatinine - monitor lytes - Anticoagulation - O2 to keep Spo2 >90% - glucose control Dr Bob Problem List - Problems (1) Fall Code(s): W19.XXXA - UNSPECIFIED FALL, INITIAL ENCOUNTER Qualifiers: Encounter type: initial encounter Qualified Code(s): W19.XXXA - Unspecified fall, initial encounter (2) Fluid overload Code(s): E87.70 - FLUID OVERLOAD, UNSPECIFIED Qualifiers: Hypervolemia type: unspecified Qualified Code(s): E87.70 - Fluid overload, unspecified (3) Hyponatremia Code(s): E87.1 - HYPO-OSMOLALITY AND HYPONATREMIA (4) Acute on chronic systolic CHF (congestive heart failure) Code(s): I50.23 - ACUTE ON CHRONIC SYSTOLIC (CONGESTIVE) HEART FAILURE (5) Acute renal failure Code(s): N17.9 - ACUTE KIDNEY FAILURE, UNSPECIFIED (6) Anemia Code(s): D64.9 - ANEMIA, UNSPECIFIED Qualifiers: Anemia type: due to chronic kidney disease Chronic kidney disease stage: stage 4 (severe) Qualified Code(s): N18.4 - Chronic kidney disease, stage 4 ( severe); D63.1 - Anemia in chronic kidney disease (7) BPH (benign prostatic hypertrophy) Code(s): N40.0 - BENIGN PROSTATIC HYPERPLASIA WITHOUT LOWER URINRY TRACT SYMP (8) Chronic renal disease Code(s): N18.9 - CHRONIC KIDNEY DISEASE, UNSPECIFIED Qualifiers: Chronic kidney disease stage: stage 4 (severe) Qualified Code(s): N18.4 - Chronic kidney disease, stage 4 (severe) (9) Diabetes mellitus Code(s): E11.9 - TYPE 2 DIABETES MELLITUS WITHOUT COMPLICATIONS Qualifiers: Diabetes mellitus complication status: with ophthalmic complications Diabetes mellitus complication detail: with diabetic retinopathy (10) HTN (hypertension) Code(s): I10 - ESSENTIAL (PRIMARY) HYPERTENSION (11) Hx of heart artery stent Code(s): Z95.5 - PRESENCE OF CORONARY ANGIOPLASTY IMPLANT AND GRAFT
[2017-11-27 11:59] LABS: BASO % 1.6 % (0-2.0); EOS % 2.3 % (0-4.5); HEMATOCRIT 29.1 % (35.4-49); LYMPH % 14.7 % (8-40); MCH 24.7 pg (25.7-33.7); MCHC 31.1 g/dl (32.0-35.9); MEAN CELL VOLUME 79.5 fl (80-96); MEAN PLT VOLUME 9.3 fl (7.5-11.1); MONO % 9.7 % (3.8-10.2); NEUT % 71.7 % (42.8-82.8); PLATELET COUNT 119 K/MM3 (134-434); RBC 3.66 M/mm3 (4.00-5.60); WHITE BLOOD COUNT 7.5 K/mm3 (4.0-10.0)
[2017-11-27 12:23] LABS: INR 1.66 (0.82-1.09); PROTHROMBIN TIME (PATIENT) 18.8 SEC (9.7-13.0)
--- NOTE | 2017-11-27 12:57 | PN ---
Progress Note, Physician Chief Complaint: Pt lying in bed; alert; anxious; denies chest pain. His is at bedside. History of Present Illness: Mr. Daivla is a 77 yo male (b. [place]) w/ pmh of AMI in Jul of this year with subsequent 5 stents during catheterization (and prior NSTEMI a few years ago, also resulting in PCI), systolic/diastolic CHF, HTN, HLD, IDDM, and known left ventricle thrombus (currently on plavix, ASA, and coumadin) who presents following fall earlier today. Per his , who is with him, he slid out of bed and fell on to his right buttock. Did not experience any LOC or dizziness and describes this as a mechanical fall. He has had increasing falls lately and was recently evaluated for similar fall on right side 11/11/17 in [facility]. - Current Medication List Current Medications: Active Medications Albumin Human (Albumin Human 25%) 12.5 gm IVPB Q30M [facility] Allopurinol (Zyloprim -) 300 mg PO DAILY [facility] Aspirin (Asa -) 81 mg PO DAILY [facility] Calcium Acetate (Phoslo -) 667 mg PO TIDCM [facility] Last Admin: 11/27/17 08:31 Dose: 667 mg Carvedilol (Coreg -) 12.5 mg PO BID [facility] Last Admin: 11/26/17 23:05 Dose: 12.5 mg Clopidogrel Bisulfate (Plavix -) 75 mg PO DAILY [facility] Folic Acid (Folic Acid -) 1 mg PO DAILY [facility] Furosemide (Lasix Injection -) 100 mg IVPB BID@0600,1400 [facility] Last Admin: 11/27/17 05:59 Dose: 100 mg Hydralazine HCl (Apresoline -) 25 mg PO BID [facility] Last Admin: 11/26/17 23:05 Dose: 25 mg Sodium Chloride (Normal Saline -) 250 mls @ 3,000 mls/hr IV PRN PRN PRN Reason: Hypotension during Dialysis Stop: 11/27/17 12:24 Insulin Aspart (Novolog Vial Sliding Scale -) 1 vial SQ TIDAC [facility]; Protocol Last Admin: 11/27/17 06:35 Dose: 6 units Insulin Detemir (Levemir Vial) 35 units SQ DAILY@0700 [facility] Last Admin: 11/27/17 08:31 Dose: 35 units Isosorbide Dinitrate (Isordil -) 20 mg PO DAILY [facility] Metolazone (Zaroxolyn -) 5 mg PO DAILY [facility] Rosuvastatin Calcium (Crestor -) 10 mg PO [facility] Last Admin: 11/26/17 23:04 Dose: 10 mg Tamsulosin HCl (Flomax -) 0.4 mg PO [facility] Last Admin: 11/26/17 23:05 Dose: 0.4 mg Warfarin Sodium (Coumadin -) 2 mg PO SuTuThSa@1800 [facility] Warfarin Sodium (Coumadin -) 4 mg PO MoWeFr@1800 [facility] Last Admin: 11/26/17 17:20 Dose: 4 mg - Objective Vital Signs: Vital Signs Temperature 98 F 11/27/17 08:28 Pulse Rate 66 11/27/17 08:28 Respiratory Rate 20 11/27/17 08:28 Blood Pressure 118/20 11/27/17 08:28 O2 Sat by Pulse Oximetry (%) 99 11/27/17 06:00 Constitutional: Yes: Anxious Eyes: Yes: WNL HENT: Yes: WNL Neck: Yes: WNL Cardiovascular: Yes: Pulse Irregular Respiratory: Yes: Diminished Gastrointestinal: Yes: Soft ...Rectal Exam: Yes: Deferred Genitourinary: No: Anuria Musculoskeletal: Yes: Muscle Weakness Extremities: Yes: Cool Edema: No Peripheral Pulses WNL: No Peripheral Pulses: Left Doralis Pedis: 1+, Right Dorsalis Pedis: 1+ Integumentary: Yes: WNL Neurological: Yes: Alert, Weakness Psychiatric: Yes: Alert, Other (anxiety/depression) Labs: CBC, BMP 11/27/17 11:30 11/26/17 06:00 INR, PTT INR 1.66 (0.82-1.09) H 11/27/17 11:30 Abnormal Lab Results 11/25/17 11/27/17 11/27/17 15:56 11:30 11:30 RBC 3.66 L Hgb 9.0 L Hct 29.1 L MCV 79.5 L MCH 24.7 L MCHC 31.1 L RDW 21.0 H Plt Count 119 L PT with INR INR Chloride 94 L BUN 69 H D Creatinine 2.6 H Random Glucose 288 H Calcium 8.0 L Iron Saturation 14 L Alkaline Phosphatase 156 H Total Protein 6.2 L Albumin 2.7 L 11/27/17 11:30 RBC Hgb Hct MCV MCH MCHC RDW Plt Count PT with INR 18.80 H INR 1.66 H Chloride BUN Creatinine Random Glucose Calcium Iron Saturation Alkaline Phosphatase Total Protein Albumin Problem List - Problems (1) Acute on chronic systolic and diastolic heart failure, NYHA class 1 Assessment/Plan: No longer with JVD; Improving CXR TNI < 0.02. On carvedilol, hydralazine+isordil. On furosemide IV drip. For hemodialysis, then long-term observation as to future need per flame planer. (ACEI/ARB/and RAAS agent use remain precluded due to poor renal function presently). F/u BUN/Cr, electrolytes, Is and Os, daily weight. Code(s): I50.43 - ACUTE ON CHRONIC COMBINED SYSTOLIC AND DIASTOLIC HRT FAIL (2) Fall Assessment/Plan: Large right LE hip hematoma. Pt has had multiple falls; rhabdomyolysis may have occurred, further compromising pt's renal function. CK now 137. Hb 8.3. Code(s): W19.XXXA - UNSPECIFIED FALL, INITIAL ENCOUNTER Qualifiers: Encounter type: initial encounter Qualified Code(s): W19.XXXA - Unspecified fall, initial encounter (3) Fluid overload Code(s): E87.70 - FLUID OVERLOAD, UNSPECIFIED Qualifiers: Hypervolemia type: unspecified Qualified Code(s): E87.70 - Fluid overload, unspecified (4) Hyponatremia Assessment/Plan: Correction per flame planer; presently on IV furosemide; now with normal Na level. Regarding other electrolytes: Keep K 4-4.5 Mg 2-2.3 PO4 2.5-3.5 Code(s): E87.1 - HYPO-OSMOLALITY AND HYPONATREMIA (5) Anemia Code(s): D64.9 - ANEMIA, UNSPECIFIED Qualifiers: Anemia type: due to chronic kidney disease Chronic kidney disease stage: stage 4 (severe) Qualified Code(s): N18.4 - Chronic kidney disease, stage 4 ( severe); D63.1 - Anemia in chronic kidney disease (6) Anxiety and depression Code(s): F41.8 - OTHER SPECIFIED ANXIETY DISORDERS (7) BPH (benign prostatic hypertrophy) Code(s): N40.0 - BENIGN PROSTATIC HYPERPLASIA WITHOUT LOWER URINRY TRACT SYMP (8) CVA (cerebral infarction) Code(s): I63.9 - CEREBRAL INFARCTION, UNSPECIFIED (9) Diabetes mellitus Code(s): E11.9 - TYPE 2 DIABETES MELLITUS WITHOUT COMPLICATIONS Qualifiers: Diabetes mellitus complication status: with ophthalmic complications Diabetes mellitus complication detail: with diabetic retinopathy (10) HTN (hypertension) Code(s): I10 - ESSENTIAL (PRIMARY) HYPERTENSION (11) Hx of heart artery stent Assessment/Plan: s/p PR x 2; five coronary stents placed 07/2017 at [facility]. Continue dual antiplatetlet Rx. Pt is also on warfarin for apical thrombus (INR presently subtherapeutic); follow stool quaiac, Hb closely in view of the higher risk of bleed while on this "triple therapy". Aggressive control of lipids (on statin; would increase dose) while simultaneously following LFTs, which have normalized. Code(s): Z95.5 - PRESENCE OF CORONARY ANGIOPLASTY IMPLANT AND GRAFT (12) LV (left ventricular) mural thrombus Assessment/Plan: On warfarin; keep INR 2-3 Code(s): [id number] - (13) Renal dysfunction Assessment/Plan: Received IVP furosemide in ER, then IV drip.. F/u Is and Os, electrolytes. Per flame planer, may require hemodialysis if response to above is inadequate. Code(s): N28.9 - DISORDER OF KIDNEY AND URETER, UNSPECIFIED (14) Status post myocardial infarction Code(s): I25.2 - OLD MYOCARDIAL INFARCTION (15) Syncope Code(s): R55 - SYNCOPE AND COLLAPSE (16) Sleep apnea Code(s): G47.30 - SLEEP APNEA, UNSPECIFIED (17) Hyperlipidemia Code(s): E78.5 - HYPERLIPIDEMIA, UNSPECIFIED
[2017-11-27 13:11] LABS: MAGNESIUM 2.2 mg/dL (1.8-2.4)
[2017-11-27 14:04] LABS: ALBUMIN 2.7 g/dl (3.4-5.0); ANION GAP 12 (8-16); BLOOD UREA NITROGEN 69 mg/dL (7-18); CHLORIDE 94 mmol/L (98-107); CO2 30 mmol/L (21-32); GLUCOSE,RANDOM 288 mg/dL (74-106); POTASSIUM 3.8 mmol/L (3.5-5.1); SODIUM 136 mmol/L (136-145)
[2017-11-27 14:08] LABS: ALK PHOS 156 U/L (45-117); BILIRUBIN,TOTAL 0.6 mg/dL (0.2-1.0); CREATININE 2.6 mg/dL (0.7-1.3); PHOSPHOROUS 3.6 mg/dL (2.5-4.9); SGOT/AST 23 U/L (15-37); SGPT/ALT 33 U/L (12-78); TOT PROT 6.2 g/dl (6.4-8.2)
--- NOTE | 2017-11-27 14:46 | PN ---
Progress Note (short form) - Note Progress Note: Renal follow up for THEE and Volume overlaod Pt seen and examined at the bedside during dialysis awake and alert BP stable, goal UF is 3.5L no cramping, dizziness, sob, chest pain Vital Signs Temperature 98 F 11/26/17 14:30 Pulse Rate 78 11/26/17 14:30 Respiratory Rate 20 11/26/17 14:30 Blood Pressure 140/70 11/26/17 14:30 O2 Sat by Pulse Oximetry (%) 98 11/26/17 14:00 Intake & Output 11/23/17 11/24/17 11/25/17 11/26/17 23:59 23:59 23:59 23:59 Intake Total 675 880 650 380 Output Total 800 1500 650 Balance -125 -620 0 380 Weight 75.3 kg 74.389 kg 71.94 kg 72.938 kg NAD on NC O2 RRR + rales b/l lungs soft NT/ND + edema in LE CBC, BMP 11/27/17 11:30 11/27/17 11:30 Current Medications Albumin Human (Albumin Human 25%) 12.5 gm IVPB Q30M [facility] Allopurinol (Zyloprim -) 300 mg PO DAILY [facility] Aspirin (Asa -) 81 mg PO DAILY [facility] Calcium Acetate (Phoslo -) 667 mg PO TIDCM [facility] Last Admin: 11/27/17 08:31 Dose: 667 mg Carvedilol (Coreg -) 12.5 mg PO BID [facility] Last Admin: 11/26/17 23:05 Dose: 12.5 mg Clopidogrel Bisulfate (Plavix -) 75 mg PO DAILY [facility] Folic Acid (Folic Acid -) 1 mg PO DAILY [facility] Furosemide (Lasix Injection -) 100 mg IVPB BID@0600,1400 [facility] Last Admin: 11/27/17 05:59 Dose: 100 mg Hydralazine HCl (Apresoline -) 25 mg PO BID [facility] Last Admin: 11/26/17 23:05 Dose: 25 mg Sodium Chloride (Normal Saline -) 250 mls @ 3,000 mls/hr IV PRN PRN PRN Reason: Hypotension during Dialysis Stop: 11/27/17 12:24 Insulin Aspart (Novolog Vial Sliding Scale -) 1 vial SQ TIDAC [facility]; Protocol Last Admin: 11/27/17 06:35 Dose: 6 units Insulin Detemir (Levemir Vial) 35 units SQ DAILY@0700 [facility] Last Admin: 11/27/17 08:31 Dose: 35 units Isosorbide Dinitrate (Isordil -) 20 mg PO DAILY [facility] Metolazone (Zaroxolyn -) 5 mg PO DAILY [facility] Rosuvastatin Calcium (Crestor -) 10 mg PO [facility] Last Admin: 11/26/17 23:04 Dose: 10 mg Tamsulosin HCl (Flomax -) 0.4 mg PO [facility] Last Admin: 11/26/17 23:05 Dose: 0.4 mg Warfarin Sodium (Coumadin -) 2 mg PO SuTuThSa@1800 [facility] Warfarin Sodium (Coumadin -) 4 mg PO MoWeFr@1800 [facility] Last Admin: 11/26/17 17:20 Dose: 4 mg 77 year old gentleman with PMhx of CAD s/p [place], CHF, Hypertension, IDDM, HLD, CKD , with recent THEE who presented from home with fall and found to have THEE and fluid overlaod/CHF. #THEE on CKD in setting of volume overload #Acute CHF #Anemia #CAD tolerating dialysis well will plan to remove catheter today and observe off dialysis continue IV Lasix daily Trend weights and urine output will continue AMY with HD if pt is unable to maintain volume status or if there is a rapid rise in BUN/Cr pt may need correction HD this was discussed with the and patient Florencio Del Cid DO
[2017-11-27] MEDS: hydrALAZINE HCL 25 MG TABLET (FP) PO SCH ×2 (15:31→21:45)
[2017-11-27] MEDS: CLOPIDOGREL BISULFATE 75 MG TABLET (FP) PO SCH (15:31)
[2017-11-27] MEDS: ASPIRIN 81 MG CHEWABLE TABLETS PO SCH (15:31)
[2017-11-27] MEDS: FOLIC ACID 1 MG TABLET (FP) PO SCH (15:32)
[2017-11-27] MEDS: ALLOPURINOL 100 MG TABLET (FP) PO SCH (15:32)
[2017-11-27] MEDS: CARVEDILOL 12.5 MG TABLET (FP) PO SCH ×2 (15:32→21:46)
[2017-11-27] MEDS: ISOSORBIDE DINITRATE 20 MG TABLET (FP) PO SCH (15:32)
[2017-11-27] MEDS: METOLAZONE 5 MG TABLET PO SCH (15:33)
--- NOTE | 2017-11-27 17:52 | PN ---
Progress Note, Physician History of Present Illness: Undergoing Hemodialysis.Denies chest pain ,palpitations leg pain, Appetite has improved. - Current Medication List Current Medications: Active Medications Albumin Human (Albumin Human 25%) 12.5 gm IVPB Q30M [facility] Allopurinol (Zyloprim -) 300 mg PO DAILY [facility] Last Admin: 11/27/17 15:32 Dose: 300 mg Aspirin (Asa -) 81 mg PO DAILY [facility] Last Admin: 11/27/17 15:31 Dose: 81 mg Calcium Acetate (Phoslo -) 667 mg PO TIDCM [facility] Last Admin: 11/27/17 17:45 Dose: 667 mg Carvedilol (Coreg -) 12.5 mg PO BID [facility] Last Admin: 11/27/17 15:32 Dose: 12.5 mg Clopidogrel Bisulfate (Plavix -) 75 mg PO DAILY [facility] Last Admin: 11/27/17 15:31 Dose: 75 mg Folic Acid (Folic Acid -) 1 mg PO DAILY [facility] Last Admin: 11/27/17 15:32 Dose: 1 mg Furosemide (Lasix Injection -) 100 mg IVPB BID@0600,1400 [facility] Last Admin: 11/27/17 16:36 Dose: 100 mg Hydralazine HCl (Apresoline -) 25 mg PO BID [facility] Last Admin: 11/27/17 15:31 Dose: 25 mg Sodium Chloride (Normal Saline -) 250 mls @ 3,000 mls/hr IV PRN PRN PRN Reason: Hypotension during Dialysis Stop: 11/27/17 12:24 Insulin Aspart (Novolog Vial Sliding Scale -) 1 vial SQ TIDAC [facility]; Protocol Last Admin: 11/27/17 17:43 Dose: 10 units Insulin Detemir (Levemir Vial) 35 units SQ DAILY@0700 [facility] Last Admin: 11/27/17 08:31 Dose: 35 units Isosorbide Dinitrate (Isordil -) 20 mg PO DAILY [facility] Last Admin: 11/27/17 15:32 Dose: 20 mg Metolazone (Zaroxolyn -) 5 mg PO DAILY [facility] Last Admin: 11/27/17 15:33 Dose: 5 mg Rosuvastatin Calcium (Crestor -) 10 mg PO HS [facility] Last Admin: 11/26/17 23:04 Dose: 10 mg Tamsulosin HCl (Flomax -) 0.4 mg PO [facility] Last Admin: 11/26/17 23:05 Dose: 0.4 mg Warfarin Sodium (Coumadin -) 2 mg PO SuTuThSa@1800 [facility] Last Admin: 11/27/17 17:45 Dose: 2 mg Warfarin Sodium (Coumadin -) 4 mg PO MoWeFr@1800 [facility] Last Admin: 11/26/17 17:20 Dose: 4 mg - Objective Vital Signs: Vital Signs Temperature 98.7 F 11/27/17 17:38 Pulse Rate 79 11/27/17 17:38 Respiratory Rate 18 11/27/17 17:38 Blood Pressure 112/55 11/27/17 17:38 O2 Sat by Pulse Oximetry (%) 99 11/27/17 06:00 Constitutional: Yes: No Distress, Calm Eyes: Yes: WNL, Conjunctiva Clear, EOM Intact HENT: Yes: WNL Neck: Yes: Supple Cardiovascular: Yes: Regular Rate and Rhythm, S1, S2 Respiratory: Yes: Regular, Rales Gastrointestinal: Yes: Normal Bowel Sounds, Soft Genitourinary: Yes: WNL Musculoskeletal: Yes: WNL Extremities: Yes: Calf Tenderness Edema: No Peripheral Pulses WNL: Yes Integumentary: Yes: WNL Neurological: Yes: Alert, Oriented, Cran Nerves II-XII Intact ...Motor Strength: WNL Psychiatric: Yes: Alert, Oriented Labs: CBC, BMP 11/27/17 11:30 11/27/17 11:30 INR, PTT INR 1.66 (0.82-1.09) H 11/27/17 11:30 - ....Imaging Chest X-ray: Report Reviewed, Image Reviewed Problem List - Problems (1) Acute on chronic systolic and diastolic heart failure, NYHA class 1 Assessment/Plan: Has improved much with HD, denies SOB. Edema has resolved. HB is now 9Gm%.Exam stilol shows a few rales at base.His appetite has improved Code(s): I50.43 - ACUTE ON CHRONIC COMBINED SYSTOLIC AND DIASTOLIC HRT FAIL (2) Fluid overload Code(s): E87.70 - FLUID OVERLOAD, UNSPECIFIED Qualifiers: Hypervolemia type: unspecified Qualified Code(s): E87.70 - Fluid overload, unspecified (3) Anemia Assessment/Plan: Hb is now 9Gm%.Anemia of chronc disease. Code(s): D64.9 - ANEMIA, UNSPECIFIED Qualifiers: Anemia type: due to chronic kidney disease Chronic kidney disease stage: stage 4 (severe) Qualified Code(s): N18.4 - Chronic kidney disease, stage 4 ( severe); D63.1 - Anemia in chronic kidney disease (4) BPH (benign prostatic hypertrophy) Code(s): N40.0 - BENIGN PROSTATIC HYPERPLASIA WITHOUT LOWER URINRY TRACT SYMP (5) Diabetes 1.5, managed as type 1 Assessment/Plan: Levemir dose has been increased to 35 daily besides sliding scale coverage with Reg.Insulin. Code(s): E13.9 - OTHER SPECIFIED DIABETES MELLITUS WITHOUT COMPLICATIONS (6) Hx of heart artery stent Code(s): Z95.5 - PRESENCE OF CORONARY ANGIOPLASTY IMPLANT AND GRAFT (7) LV (left ventricular) mural thrombus Assessment/Plan: Being anticoagulated with coumadin, Plavix and Aspirin. Code(s): EEV1147 - Assessment/Plan Acute renal failure. CKD, CHF S/P angioplasty with stents. Diabetes mellitus 2 on Insulin. LV mural thrombus. Assessment. After completion of HD the catheter was d/c as per lone lead lineman to determine whether he will require constant HD. His cardiac status remains CHF but probably will improve once renal function continues to improve.
[2017-11-27] MEDS ORDERED: WARFARIN NA 5 MG TABLET (UD) PO ONE (17:53)
[2017-11-27] MEDS ORDERED: WARFARIN NA 2 MG TABLET (UD) PO SCH (18:00)
[2017-11-27] MEDS ORDERED: WARFARIN NA 3 MG TABLET PO ONE (19:30)
[2017-11-27] MEDS: TAMSULOSIN HCL 0.4 MG CAP.ER.24H (FP) PO SCH (21:46)
[2017-11-27] MEDS: ROSUVASTATIN CA 10 MG TABLET (FP) PO SCH (21:46)
[2017-11-28] MEDS: INSULIN SLIDING SCALE (NOVOLOG) 1 VIAL SQ SCH ×3 (06:50→17:18)
[2017-11-28] MEDS: FUROSEMIDE 100 MG/10 ML INJECTABLE VIAL IVPB SCH ×2 (06:51→14:30)
[2017-11-28] MEDS: INSULIN (LEVEMIR) 100 UNITS/ML UNITS SQ SCH (06:53)
[2017-11-28] MEDS ORDERED: PT OWN MED DRAWER 7, Y5N ONE (07:12)
[2017-11-28] MEDS: CALCIUM ACETATE 667 MG CAPSULE (FP) PO SCH ×3 (08:45→17:18)
[2017-11-28] MEDS: METOLAZONE 5 MG TABLET PO SCH (10:30)
[2017-11-28] MEDS: FOLIC ACID 1 MG TABLET (FP) PO SCH (10:39)
[2017-11-28] MEDS: ISOSORBIDE DINITRATE 20 MG TABLET (FP) PO SCH (10:39)
[2017-11-28] MEDS: hydrALAZINE HCL 25 MG TABLET (FP) PO SCH ×2 (10:39→22:10)
[2017-11-28] MEDS: CARVEDILOL 12.5 MG TABLET (FP) PO SCH ×2 (10:39→22:10)
[2017-11-28] MEDS: CLOPIDOGREL BISULFATE 75 MG TABLET (FP) PO SCH (10:39)
[2017-11-28] MEDS: ASPIRIN 81 MG CHEWABLE TABLETS PO SCH (10:40)
[2017-11-28] MEDS: ALLOPURINOL 100 MG TABLET (FP) PO SCH (11:51)
--- NOTE | 2017-11-28 12:04 | PN ---
Progress Note, Physician History of Present Illness: Mr. Davila is a 77 yo male (b. [place]) w/ pmh of AMI in Jul of this year with subsequent 5 stents during catheterization (and prior NSTEMI a few years ago, also resulting in PCI), systolic/diastolic CHF, HTN, HLD, IDDM, and known left ventricle thrombus (currently on plavix, ASA, and coumadin) who presents following fall earlier today. Per his , who is with him, he slid out of bed and fell on to his right buttock. Did not experience any LOC or dizziness and describes this as a mechanical fall. He has had increasing falls lately and was recently evaluated for similar fall on right side 11/11/17 in [facility]. - Current Medication List Current Medications: Active Medications Albumin Human (Albumin Human 25%) 12.5 gm IVPB Q30M [facility] Allopurinol (Zyloprim -) 300 mg PO DAILY [facility] Last Admin: 11/28/17 11:51 Dose: 300 mg Aspirin (Asa -) 81 mg PO DAILY [facility] Last Admin: 11/28/17 10:40 Dose: 81 mg Calcium Acetate (Phoslo -) 667 mg PO TIDCM [facility] Last Admin: 11/28/17 11:51 Dose: 667 mg Carvedilol (Coreg -) 12.5 mg PO BID [facility] Last Admin: 11/28/17 10:39 Dose: 12.5 mg Clopidogrel Bisulfate (Plavix -) 75 mg PO DAILY [facility] Last Admin: 11/28/17 10:39 Dose: 75 mg Folic Acid (Folic Acid -) 1 mg PO DAILY [facility] Last Admin: 11/28/17 10:39 Dose: 1 mg Furosemide (Lasix Injection -) 100 mg IVPB BID@0600,1400 [facility] Last Admin: 11/28/17 06:51 Dose: 100 mg Hydralazine HCl (Apresoline -) 25 mg PO BID [facility] Last Admin: 11/28/17 10:39 Dose: 25 mg Sodium Chloride (Normal Saline -) 250 mls @ 3,000 mls/hr IV PRN PRN PRN Reason: Hypotension during Dialysis Stop: 11/27/17 12:24 Insulin Aspart (Novolog Vial Sliding Scale -) 1 vial SQ TIDAC [facility]; Protocol Last Admin: 11/28/17 11:52 Dose: 4 units Insulin Detemir (Levemir Vial) 35 units SQ DAILY@0700 [facility] Last Admin: 11/28/17 06:53 Dose: 35 units Isosorbide Dinitrate (Isordil -) 20 mg PO DAILY [facility] Last Admin: 11/28/17 10:39 Dose: 20 mg Metolazone (Zaroxolyn -) 5 mg PO DAILY [facility] Last Admin: 11/27/17 15:33 Dose: 5 mg Rosuvastatin Calcium (Crestor -) 10 mg PO [facility] Last Admin: 11/27/17 21:46 Dose: 10 mg Tamsulosin HCl (Flomax -) 0.4 mg PO [facility] Last Admin: 11/27/17 21:46 Dose: 0.4 mg Warfarin Sodium (Coumadin -) 2 mg PO SuTuThSa@1800 [facility] Last Admin: 11/27/17 17:45 Dose: 2 mg Warfarin Sodium (Coumadin -) 4 mg PO MoWeFr@1800 [facility] Last Admin: 11/26/17 17:20 Dose: 4 mg - Objective Vital Signs: Vital Signs Temperature 98 F 11/28/17 10:00 Pulse Rate 65 11/28/17 10:00 Respiratory Rate 20 11/28/17 10:00 Blood Pressure 112/50 11/28/17 10:00 O2 Sat by Pulse Oximetry (%) 99 11/27/17 21:00 Eyes: Yes: WNL, Conjunctiva Clear, EOM Intact HENT: Yes: WNL, Atraumatic, Normocephalic Neck: Yes: WNL, Supple, Trachea Midline Cardiovascular: Yes: WNL, Regular Rate and Rhythm Respiratory: Yes: WNL, Regular, CTA Bilaterally Gastrointestinal: Yes: WNL, Normal Bowel Sounds Genitourinary: Yes: WNL Musculoskeletal: Yes: WNL Extremities: Yes: WNL Edema: No Integumentary: Yes: WNL Neurological: Yes: WNL, Alert, Oriented ...Motor Strength: WNL Psychiatric: Yes: WNL Labs: CBC, BMP 11/27/17 11:30 11/27/17 11:30 INR, PTT INR 1.66 (0.82-1.09) H 11/27/17 11:30 Assessment/Plan - Problems (1) Acute on chronic systolic and diastolic heart failure, NYHA class 1 Assessment/Plan: No longer with JVD; Improving CXR TNI < 0.02. On carvedilol, hydralazine+isordil. On furosemide IV drip. For hemodialysis, then long-term observation as to future need per linux unix system administrator. (ACEI/ARB/and RAAS agent use remain precluded due to poor renal function presently). F/u BUN/Cr, electrolytes, Is and Os, daily weight. Code(s): I50.43 - ACUTE ON CHRONIC COMBINED SYSTOLIC AND DIASTOLIC HRT FAIL (2) Fall Assessment/Plan: Large right LE hip hematoma. Pt has had multiple falls; rhabdomyolysis may have occurred, further compromising pt's renal function. CK now 137. Hb 8.3. Code(s): W19.XXXA - UNSPECIFIED FALL, INITIAL ENCOUNTER Qualifiers: Encounter type: initial encounter Qualified Code(s): W19.XXXA - Unspecified fall, initial encounter (3) Fluid overload Code(s): E87.70 - FLUID OVERLOAD, UNSPECIFIED Qualifiers: Hypervolemia type: unspecified Qualified Code(s): E87.70 - Fluid overload, unspecified (4) Hyponatremia Assessment/Plan: Correction per linux unix system administrator; presently on IV furosemide; now with normal Na level. Regarding other electrolytes: Keep K 4-4.5 Mg 2-2.3 PO4 2.5-3.5 Code(s): E87.1 - HYPO-OSMOLALITY AND HYPONATREMIA (5) Anemia Code(s): D64.9 - ANEMIA, UNSPECIFIED Qualifiers: Anemia type: due to chronic kidney disease Chronic kidney disease stage: stage 4 (severe) Qualified Code(s): N18.4 - Chronic kidney disease, stage 4 ( severe); D63.1 - Anemia in chronic kidney disease (6) Anxiety and depression Code(s): F41.8 - OTHER SPECIFIED ANXIETY DISORDERS (7) BPH (benign prostatic hypertrophy) Code(s): N40.0 - BENIGN PROSTATIC HYPERPLASIA WITHOUT LOWER URINRY TRACT SYMP (8) CVA (cerebral infarction) Code(s): I63.9 - CEREBRAL INFARCTION, UNSPECIFIED (9) Diabetes mellitus Code(s): E11.9 - TYPE 2 DIABETES MELLITUS WITHOUT COMPLICATIONS Qualifiers: Diabetes mellitus complication status: with ophthalmic complications Diabetes mellitus complication detail: with diabetic retinopathy (10) HTN (hypertension) Code(s): I10 - ESSENTIAL (PRIMARY) HYPERTENSION (11) Hx of heart artery stent Assessment/Plan: s/p DE x 2; five coronary stents placed 07/2017 at [facility]. Continue dual antiplatetlet Rx. Pt is also on warfarin for apical thrombus (INR presently subtherapeutic); follow stool quaiac, Hb closely in view of the higher risk of bleed while on this "triple therapy". Aggressive control of lipids (on statin; would increase dose) while simultaneously following LFTs, which have normalized. Code(s): Z95.5 - PRESENCE OF CORONARY ANGIOPLASTY IMPLANT AND GRAFT (12) LV (left ventricular) mural thrombus Assessment/Plan: On warfarin; keep INR 2-3 Code(s): [id number] - (13) Renal dysfunction Assessment/Plan: Received IVP furosemide in ER, then IV drip.. F/u Is and Os, electrolytes. Per linux unix system administrator, may require hemodialysis if response to above is inadequate. Code(s): N28.9 - DISORDER OF KIDNEY AND URETER, UNSPECIFIED (14) Status post myocardial infarction Code(s): I25.2 - OLD MYOCARDIAL INFARCTION (15) Syncope Code(s): R55 - SYNCOPE AND COLLAPSE (16) Sleep apnea Code(s): G47.30 - SLEEP APNEA, UNSPECIFIED (17) Hyperlipidemia Code(s): E78.5 - HYPERLIPIDEMIA, UNSPECIFIED
--- NOTE | 2017-11-28 12:09 | PN ---
Progress Note, Physician History of Present Illness: PULMONARY ALERT,OOB-CHAIR,LESS DYSPNEIC - Current Medication List Current Medications: Active Medications Albumin Human (Albumin Human 25%) 12.5 gm IVPB Q30M [facility] Allopurinol (Zyloprim -) 300 mg PO DAILY [facility] Last Admin: 11/28/17 11:51 Dose: 300 mg Aspirin (Asa -) 81 mg PO DAILY [facility] Last Admin: 11/28/17 10:40 Dose: 81 mg Calcium Acetate (Phoslo -) 667 mg PO TIDCM [facility] Last Admin: 11/28/17 11:51 Dose: 667 mg Carvedilol (Coreg -) 12.5 mg PO BID [facility] Last Admin: 11/28/17 10:39 Dose: 12.5 mg Clopidogrel Bisulfate (Plavix -) 75 mg PO DAILY [facility] Last Admin: 11/28/17 10:39 Dose: 75 mg Folic Acid (Folic Acid -) 1 mg PO DAILY [facility] Last Admin: 11/28/17 10:39 Dose: 1 mg Furosemide (Lasix Injection -) 100 mg IVPB BID@0600,1400 [facility] Last Admin: 11/28/17 06:51 Dose: 100 mg Hydralazine HCl (Apresoline -) 25 mg PO BID [facility] Last Admin: 11/28/17 10:39 Dose: 25 mg Sodium Chloride (Normal Saline -) 250 mls @ 3,000 mls/hr IV PRN PRN PRN Reason: Hypotension during Dialysis Stop: 11/27/17 12:24 Insulin Aspart (Novolog Vial Sliding Scale -) 1 vial SQ TIDAC [facility]; Protocol Last Admin: 11/28/17 11:52 Dose: 4 units Insulin Detemir (Levemir Vial) 35 units SQ DAILY@0700 [facility] Last Admin: 11/28/17 06:53 Dose: 35 units Isosorbide Dinitrate (Isordil -) 20 mg PO DAILY [facility] Last Admin: 11/28/17 10:39 Dose: 20 mg Metolazone (Zaroxolyn -) 5 mg PO DAILY [facility] Last Admin: 11/27/17 15:33 Dose: 5 mg Rosuvastatin Calcium (Crestor -) 10 mg PO [facility] Last Admin: 11/27/17 21:46 Dose: 10 mg Tamsulosin HCl (Flomax -) 0.4 mg PO [facility] Last Admin: 11/27/17 21:46 Dose: 0.4 mg Warfarin Sodium (Coumadin -) 2 mg PO SuTuThSa@1800 [facility] Last Admin: 11/27/17 17:45 Dose: 2 mg Warfarin Sodium (Coumadin -) 4 mg PO MoWeFr@1800 [facility] Last Admin: 11/26/17 17:20 Dose: 4 mg - Objective Vital Signs: Vital Signs Temperature 98 F 11/28/17 10:00 Pulse Rate 65 11/28/17 10:00 Respiratory Rate 20 11/28/17 10:00 Blood Pressure 112/50 11/28/17 10:00 O2 Sat by Pulse Oximetry (%) 99 11/27/17 21:00 Constitutional: Yes: Well Nourished, Calm Eyes: Yes: WNL HENT: Yes: WNL Neck: Yes: WNL Cardiovascular: Yes: Regular Rate and Rhythm, S1, S2 Respiratory: Yes: Rales (BILATERAL RALES) Gastrointestinal: Yes: Normal Bowel Sounds, Soft Extremities: Yes: WNL Edema: No Labs: CBC, BMP 11/27/17 11:30 11/27/17 11:30 INR, PTT INR 1.66 (0.82-1.09) H 11/27/17 11:30 Assessment/Plan ASSESSMENT AND PLAN: Acute on Chronic Renal Failure requiring HD Acute on Chronic Systolic/Diastolic Heart Failure Volume Overload Hyponatremia CAD LV Thrombus HTN DM Hyperlipidemia - HD Per Renal - Lasix, zaroxolyn - monitor urine output, creatinine - monitor lytes - Anticoagulation - O2 to keep Spo2 >90% - glucose control DR CARCAMO Problem List - Problems (1) Fall Code(s): W19.XXXA - UNSPECIFIED FALL, INITIAL ENCOUNTER Qualifiers: Encounter type: initial encounter Qualified Code(s): W19.XXXA - Unspecified fall, initial encounter (2) Fluid overload Code(s): E87.70 - FLUID OVERLOAD, UNSPECIFIED Qualifiers: Hypervolemia type: unspecified Qualified Code(s): E87.70 - Fluid overload, unspecified (3) Hyponatremia Code(s): E87.1 - HYPO-OSMOLALITY AND HYPONATREMIA (4) Acute on chronic systolic CHF (congestive heart failure) Code(s): I50.23 - ACUTE ON CHRONIC SYSTOLIC (CONGESTIVE) HEART FAILURE (5) Acute renal failure Code(s): N17.9 - ACUTE KIDNEY FAILURE, UNSPECIFIED (6) Anemia Code(s): D64.9 - ANEMIA, UNSPECIFIED Qualifiers: Anemia type: due to chronic kidney disease Chronic kidney disease stage: stage 4 (severe) Qualified Code(s): N18.4 - Chronic kidney disease, stage 4 ( severe); D63.1 - Anemia in chronic kidney disease (7) BPH (benign prostatic hypertrophy) Code(s): N40.0 - BENIGN PROSTATIC HYPERPLASIA WITHOUT LOWER URINRY TRACT SYMP (8) Chronic renal disease Code(s): N18.9 - CHRONIC KIDNEY DISEASE, UNSPECIFIED Qualifiers: Chronic kidney disease stage: stage 4 (severe) Qualified Code(s): N18.4 - Chronic kidney disease, stage 4 (severe) (9) Diabetes mellitus Code(s): E11.9 - TYPE 2 DIABETES MELLITUS WITHOUT COMPLICATIONS Qualifiers: Diabetes mellitus complication status: with ophthalmic complications Diabetes mellitus complication detail: with diabetic retinopathy (10) HTN (hypertension) Code(s): I10 - ESSENTIAL (PRIMARY) HYPERTENSION (11) Hx of heart artery stent Code(s): Z95.5 - PRESENCE OF CORONARY ANGIOPLASTY IMPLANT AND GRAFT
--- NOTE | 2017-11-28 16:19 | PN ---
Progress Note (short form) - Note Progress Note: Renal follow up for THEE and Volume overlaod Pt seen and examined at the bedside no acute complaints has mild sob still apatite is slightly improved but not normal Vital Signs Temperature 98 F 11/28/17 14:29 Pulse Rate 76 11/28/17 14:29 Respiratory Rate 20 11/28/17 14:29 Blood Pressure 124/65 11/28/17 14:29 O2 Sat by Pulse Oximetry (%) 99 11/28/17 09:00 Intake & Output 11/25/17 11/26/17 11/27/17 11/28/17 23:59 23:59 23:59 23:59 Intake Total 650 480 850 830 Output Total 650 Balance 0 480 850 830 Weight 71.94 kg 72.938 kg 75.75 kg NAD on NC O2 RRR + rales b/l lungs soft NT/ND trace edema in LE CBC, BMP 11/27/17 11:30 Current Medications Albumin Human (Albumin Human 25%) 12.5 gm IVPB Q30M [facility] Allopurinol (Zyloprim -) 300 mg PO DAILY [facility] Last Admin: 11/28/17 11:51 Dose: 300 mg Aspirin (Asa -) 81 mg PO DAILY [facility] Last Admin: 11/28/17 10:40 Dose: 81 mg Calcium Acetate (Phoslo -) 667 mg PO TIDCM [facility] Last Admin: 11/28/17 11:51 Dose: 667 mg Carvedilol (Coreg -) 12.5 mg PO BID [facility] Last Admin: 11/28/17 10:39 Dose: 12.5 mg Clopidogrel Bisulfate (Plavix -) 75 mg PO DAILY [facility] Last Admin: 11/28/17 10:39 Dose: 75 mg Folic Acid (Folic Acid -) 1 mg PO DAILY [facility] Last Admin: 11/28/17 10:39 Dose: 1 mg Furosemide (Lasix Injection -) 100 mg IVPB BID@0600,1400 [facility] Last Admin: 11/28/17 14:30 Dose: 100 mg Hydralazine HCl (Apresoline -) 25 mg PO BID [facility] Last Admin: 11/28/17 10:39 Dose: 25 mg Sodium Chloride (Normal Saline -) 250 mls @ 3,000 mls/hr IV PRN PRN PRN Reason: Hypotension during Dialysis Stop: 11/27/17 12:24 Insulin Aspart (Novolog Vial Sliding Scale -) 1 vial SQ TIDAC [facility]; Protocol Last Admin: 11/28/17 11:52 Dose: 4 units Insulin Detemir (Levemir Vial) 35 units SQ DAILY@0700 [facility] Last Admin: 11/28/17 06:53 Dose: 35 units Isosorbide Dinitrate (Isordil -) 20 mg PO DAILY [facility] Last Admin: 11/28/17 10:39 Dose: 20 mg Metolazone (Zaroxolyn -) 5 mg PO DAILY@0530 [facility] Rosuvastatin Calcium (Crestor -) 10 mg PO [facility] Last Admin: 11/27/17 21:46 Dose: 10 mg Tamsulosin HCl (Flomax -) 0.4 mg PO [facility] Last Admin: 11/27/17 21:46 Dose: 0.4 mg Warfarin Sodium (Coumadin -) 2 mg PO SuTuThSa@1800 [facility] Last Admin: 11/27/17 17:45 Dose: 2 mg Warfarin Sodium (Coumadin -) 4 mg PO MoWeFr@1800 [facility] Last Admin: 11/26/17 17:20 Dose: 4 mg 77 year old gentleman with PMhx of CAD s/p [place], CHF, Hypertension, IDDM, HLD, CKD , with recent THEE who presented from home with fall and found to have THEE and fluid overlaod/CHF. #THEE on CKD in setting of volume overload #Acute CHF #Anemia #CAD s/p dialysis yesterday and HD catheter removed will continue on Lasix 100mg IV BID and Metolazone Daily Trend weights, BUN/Cr and electrolytes if shows signs of worsening fluid overload or uremia will need to plan for penitentiary dialysis will consult vascular surgery for tentative catheter placement trend LUISA Del Cid DO
[2017-11-28 16:43] LABS: ANION GAP 8 (8-16); BLOOD UREA NITROGEN 56 mg/dL (7-18); CALCIUM 7.7 mg/dL (8.5-10.1); CHLORIDE 92 mmol/L (98-107); CO2 30 mmol/L (21-32); CREATININE 2.8 mg/dL (0.7-1.3); POTASSIUM 4.9 mmol/L (3.5-5.1); SODIUM 130 mmol/L (136-145)
[2017-11-28 16:52] LABS: GLUCOSE,RANDOM 447 mg/dL (74-106)
[2017-11-28 17:09] LABS: INR 1.91 (0.82-1.09); PROTHROMBIN TIME (PATIENT) 21.6 SEC (9.7-13.0)
[2017-11-28] MEDS ORDERED: INSULIN (NOVOLOG) ASPART 100 UNITS/ML 10ML VIAL SQ ONE (18:15)
[2017-11-28] MEDS: WARFARIN NA 2 MG TABLET (UD) PO SCH (18:22)
--- NOTE | 2017-11-28 18:29 | PN ---
Progress Note, Physician History of Present Illness: Denies SOB, denies chest pain. c/o weakness of legs. Sitting up in bed. - Current Medication List Current Medications: Active Medications Albumin Human (Albumin Human 25%) 12.5 gm IVPB Q30M [facility] Allopurinol (Zyloprim -) 300 mg PO DAILY [facility] Last Admin: 11/28/17 11:51 Dose: 300 mg Aspirin (Asa -) 81 mg PO DAILY [facility] Last Admin: 11/28/17 10:40 Dose: 81 mg Calcium Acetate (Phoslo -) 667 mg PO TIDCM [facility] Last Admin: 11/28/17 17:18 Dose: 667 mg Carvedilol (Coreg -) 12.5 mg PO BID [facility] Last Admin: 11/28/17 10:39 Dose: 12.5 mg Clopidogrel Bisulfate (Plavix -) 75 mg PO DAILY [facility] Last Admin: 11/28/17 10:39 Dose: 75 mg Folic Acid (Folic Acid -) 1 mg PO DAILY [facility] Last Admin: 11/28/17 10:39 Dose: 1 mg Furosemide (Lasix Injection -) 100 mg IVPB BID@0600,1400 [facility] Last Admin: 11/28/17 14:30 Dose: 100 mg Hydralazine HCl (Apresoline -) 25 mg PO BID [facility] Last Admin: 11/28/17 10:39 Dose: 25 mg Sodium Chloride (Normal Saline -) 250 mls @ 3,000 mls/hr IV PRN PRN PRN Reason: Hypotension during Dialysis Stop: 11/27/17 12:24 Insulin Aspart (Novolog Vial Sliding Scale -) 1 vial SQ TIDAC [facility]; Protocol Last Admin: 11/28/17 17:18 Dose: 16 units Insulin Detemir (Levemir Vial) 35 units SQ DAILY@0700 [facility] Last Admin: 11/28/17 06:53 Dose: 35 units Isosorbide Dinitrate (Isordil -) 20 mg PO DAILY [facility] Last Admin: 11/28/17 10:39 Dose: 20 mg Metolazone (Zaroxolyn -) 5 mg PO DAILY@0530 [facility] Rosuvastatin Calcium (Crestor -) 10 mg PO [facility] Last Admin: 11/27/17 21:46 Dose: 10 mg Tamsulosin HCl (Flomax -) 0.4 mg PO [facility] Last Admin: 11/27/17 21:46 Dose: 0.4 mg Warfarin Sodium (Coumadin -) 2 mg PO SuTuThSa@1800 [facility] Last Admin: 11/27/17 17:45 Dose: 2 mg Warfarin Sodium (Coumadin -) 4 mg PO MoWeFr@1800 [facility] Last Admin: 11/28/17 18:22 Dose: 4 mg - Objective Vital Signs: Vital Signs Temperature 98.7 F 11/28/17 18:00 Pulse Rate 74 11/28/17 18:00 Respiratory Rate 20 11/28/17 18:00 Blood Pressure 125/65 11/28/17 18:00 O2 Sat by Pulse Oximetry (%) 99 11/28/17 09:00 Constitutional: Yes: No Distress, Calm Eyes: Yes: Conjunctiva Clear, EOM Intact HENT: Yes: WNL Neck: Yes: Supple Cardiovascular: Yes: Regular Rate and Rhythm, S1, S2 Respiratory: Yes: Regular, Rales Gastrointestinal: Yes: Normal Bowel Sounds, Soft Genitourinary: Yes: WNL Breast(s): Yes: WNL Musculoskeletal: Yes: WNL Extremities: Yes: WNL Edema: Yes Edema: LLE: 1+, RLE: 1+ Peripheral Pulses WNL: Yes Integumentary: Yes: WNL Neurological: Yes: Alert, Oriented, Cran Nerves II-XII Intact ...Motor Strength: WNL Psychiatric: Yes: Alert, Oriented Labs: CBC, BMP 11/27/17 11:30 11/28/17 15:10 INR, PTT INR 1.91 (0.82-1.09) H 11/28/17 16:00 Problem List - Problems (1) Acute on chronic systolic and diastolic heart failure, NYHA class 1 Assessment/Plan: Continuues to be in CHF with bilateral rales more than yesterday Code(s): I50.43 - ACUTE ON CHRONIC COMBINED SYSTOLIC AND DIASTOLIC HRT FAIL (2) Fluid overload Code(s): E87.70 - FLUID OVERLOAD, UNSPECIFIED Qualifiers: Hypervolemia type: unspecified Qualified Code(s): E87.70 - Fluid overload, unspecified (3) Anemia Assessment/Plan: Hb 9Gm% stable Code(s): D64.9 - ANEMIA, UNSPECIFIED Qualifiers: Anemia type: due to chronic kidney disease Chronic kidney disease stage: stage 4 (severe) Qualified Code(s): N18.4 - Chronic kidney disease, stage 4 ( severe); D63.1 - Anemia in chronic kidney disease (4) BPH (benign prostatic hypertrophy) Code(s): N40.0 - BENIGN PROSTATIC HYPERPLASIA WITHOUT LOWER URINRY TRACT SYMP (5) Diabetes 1.5, managed as type 1 Code(s): E13.9 - OTHER SPECIFIED DIABETES MELLITUS WITHOUT COMPLICATIONS (6) Hx of heart artery stent Assessment/Plan: Denies any chest pain, palpitations or PND Code(s): Z95.5 - PRESENCE OF CORONARY ANGIOPLASTY IMPLANT AND GRAFT (7) LV (left ventricular) mural thrombus Code(s): [id number] - Assessment/Plan Imp.Acute on Chronic renal failure, CHF , CAD with s/p angioplasty with stents Diabetes 2 on Insulin. Anemia of chronic disease. Hyponatremia. Assess:Continues to be in systolic and diastolic HF and probably will benefit from half-way HD pulmonary congestion had improved while on HD. Sample Steamer Dr Del Cid is planning half-way HD with placement of permacath.
[2017-11-28] MEDS ORDERED: Insulin (LOG) Aspart 100 UNITS/ML VIAL SQ ONE (21:45)
[2017-11-28] MEDS: ROSUVASTATIN CA 10 MG TABLET (FP) PO SCH (22:01)
[2017-11-28] MEDS: DOCUSATE SODIUM 100 MG CAPSULE (FP) PO SCH (22:01)
[2017-11-28] MEDS: TAMSULOSIN HCL 0.4 MG CAP.ER.24H (FP) PO SCH (22:10)
[2017-11-29] MEDS ORDERED: METOLAZONE 5 MG TABLET PO SCH (05:30)
[2017-11-29] MEDS: FUROSEMIDE 100 MG/10 ML INJECTABLE VIAL IVPB SCH ×2 (06:25→14:42)
[2017-11-29] MEDS: DOCUSATE SODIUM 100 MG CAPSULE (FP) PO SCH ×3 (06:26→21:09)
[2017-11-29] MEDS: INSULIN SLIDING SCALE (NOVOLOG) 1 VIAL SQ SCH ×3 (07:03→17:27)
[2017-11-29] MEDS: INSULIN (LEVEMIR) 100 UNITS/ML UNITS SQ SCH (07:04)
[2017-11-29 08:16] LABS: BASO % 0.8 % (0-2.0); EOS % 1.8 % (0-4.5); HEMATOCRIT 30.1 % (35.4-49); HEMOGLOBIN 9.6 GM/dL (11.7-16.9); LYMPH % 12.7 % (8-40); MCH 25.1 pg (25.7-33.7); MEAN CELL VOLUME 78.6 fl (80-96); MEAN PLT VOLUME 9.3 fl (7.5-11.1); MONO % 7.3 % (3.8-10.2); NEUT % 77.4 % (42.8-82.8); PLATELET COUNT 98 K/MM3 (134-434); RBC 3.83 M/mm3 (4.00-5.60); RDW 21.3 % (11.9-15.9); WHITE BLOOD COUNT 7.9 K/mm3 (4.0-10.0)
[2017-11-29 08:20] LABS: PROTHROMBIN TIME (PATIENT) 22.6 SEC (9.7-13.0)
--- NOTE | 2017-11-29 08:35 | PN ---
Progress Note, Physician History of Present Illness: pulmonary alert,weak,comfortable,less dyspneic - Current Medication List Current Medications: Active Medications Albumin Human (Albumin Human 25%) 12.5 gm IVPB Q30M [facility] Allopurinol (Zyloprim -) 300 mg PO DAILY [facility] Last Admin: 11/28/17 11:51 Dose: 300 mg Aspirin (Asa -) 81 mg PO DAILY [facility] Last Admin: 11/28/17 10:40 Dose: 81 mg Calcium Acetate (Phoslo -) 667 mg PO TIDCM [facility] Last Admin: 11/28/17 17:18 Dose: 667 mg Carvedilol (Coreg -) 12.5 mg PO BID [facility] Last Admin: 11/28/17 22:10 Dose: 12.5 mg Clopidogrel Bisulfate (Plavix -) 75 mg PO DAILY [facility] Last Admin: 11/28/17 10:39 Dose: 75 mg Docusate Sodium (Colace -) 100 mg PO TID [facility] Last Admin: 11/29/17 06:26 Dose: 100 mg Folic Acid (Folic Acid -) 1 mg PO DAILY [facility] Last Admin: 11/28/17 10:39 Dose: 1 mg Furosemide (Lasix Injection -) 100 mg IVPB BID@0600,1400 [facility] Last Admin: 11/29/17 06:25 Dose: 100 mg Hydralazine HCl (Apresoline -) 25 mg PO BID [facility] Last Admin: 11/28/17 22:10 Dose: 25 mg Sodium Chloride (Normal Saline -) 250 mls @ 3,000 mls/hr IV PRN PRN PRN Reason: Hypotension during Dialysis Stop: 11/27/17 12:24 Insulin Aspart (Novolog Vial Sliding Scale -) 1 vial SQ TIDAC [facility]; Protocol Last Admin: 11/29/17 07:03 Dose: 4 units Insulin Detemir (Levemir Vial) 35 units SQ DAILY@0700 [facility] Last Admin: 11/29/17 07:04 Dose: 35 units Isosorbide Dinitrate (Isordil -) 20 mg PO DAILY [facility] Last Admin: 11/28/17 10:39 Dose: 20 mg Metolazone (Zaroxolyn -) 5 mg PO DAILY@0530 [facility] Last Admin: 11/29/17 05:51 Dose: 5 mg Rosuvastatin Calcium (Crestor -) 10 mg PO HS [facility] Last Admin: 11/28/17 22:01 Dose: 10 mg Tamsulosin HCl (Flomax -) 0.4 mg PO HS [facility] Last Admin: 11/28/17 22:10 Dose: 0.4 mg Warfarin Sodium (Coumadin -) 2 mg PO SuTuThSa@1800 [facility] Last Admin: 11/27/17 17:45 Dose: 2 mg Warfarin Sodium (Coumadin -) 4 mg PO MoWeFr@1800 [facility] Last Admin: 11/28/17 18:22 Dose: 4 mg - Objective Vital Signs: Vital Signs Temperature 97.9 F 11/29/17 06:00 Pulse Rate 69 11/29/17 06:00 Respiratory Rate 18 11/29/17 06:00 Blood Pressure 131/72 11/29/17 06:00 O2 Sat by Pulse Oximetry (%) 99 11/28/17 21:00 Constitutional: Yes: Well Nourished, Calm Eyes: Yes: WNL HENT: Yes: WNL Neck: Yes: WNL Cardiovascular: Yes: Regular Rate and Rhythm, S1, S2 Respiratory: Yes: Rales (bilateral rales 1/2 up) Gastrointestinal: Yes: Normal Bowel Sounds, Soft Extremities: Yes: WNL Edema: Yes Edema: LLE: Trace, RLE: Trace Labs: INR, PTT INR 2.00 (0.82-1.09) H 11/29/17 07:30 - ....Imaging Chest X-ray: Image Reviewed (mild congestion) Assessment/Plan ASSESSMENT AND PLAN: Acute on Chronic Renal Failure requiring HD Acute on Chronic Systolic/Diastolic Heart Failure Volume Overload Hyponatremia CAD LV Thrombus HTN DM Hyperlipidemia - HD Per Renal - Lasix, zaroxolyn - monitor urine output, creatinine - monitor lytes - Anticoagulation - O2 to keep Spo2 >90% DR CARCAMO Problem List - Problems (1) Fall Code(s): W19.XXXA - UNSPECIFIED FALL, INITIAL ENCOUNTER Qualifiers: Encounter type: initial encounter Qualified Code(s): W19.XXXA - Unspecified fall, initial encounter (2) Fluid overload Code(s): E87.70 - FLUID OVERLOAD, UNSPECIFIED Qualifiers: Hypervolemia type: unspecified Qualified Code(s): E87.70 - Fluid overload, unspecified (3) Hyponatremia Code(s): E87.1 - HYPO-OSMOLALITY AND HYPONATREMIA (4) Acute on chronic systolic CHF (congestive heart failure) Code(s): I50.23 - ACUTE ON CHRONIC SYSTOLIC (CONGESTIVE) HEART FAILURE (5) Acute renal failure Code(s): N17.9 - ACUTE KIDNEY FAILURE, UNSPECIFIED (6) Anemia Code(s): D64.9 - ANEMIA, UNSPECIFIED Qualifiers: Anemia type: due to chronic kidney disease Chronic kidney disease stage: stage 4 (severe) Qualified Code(s): N18.4 - Chronic kidney disease, stage 4 ( severe); D63.1 - Anemia in chronic kidney disease (7) BPH (benign prostatic hypertrophy) Code(s): N40.0 - BENIGN PROSTATIC HYPERPLASIA WITHOUT LOWER URINRY TRACT SYMP (8) Chronic renal disease Code(s): N18.9 - CHRONIC KIDNEY DISEASE, UNSPECIFIED Qualifiers: Chronic kidney disease stage: stage 4 (severe) Qualified Code(s): N18.4 - Chronic kidney disease, stage 4 (severe) (9) Diabetes mellitus Code(s): E11.9 - TYPE 2 DIABETES MELLITUS WITHOUT COMPLICATIONS Qualifiers: Diabetes mellitus complication status: with ophthalmic complications Diabetes mellitus complication detail: with diabetic retinopathy (10) HTN (hypertension) Code(s): I10 - ESSENTIAL (PRIMARY) HYPERTENSION (11) Hx of heart artery stent Code(s): Z95.5 - PRESENCE OF CORONARY ANGIOPLASTY IMPLANT AND GRAFT
[2017-11-29 08:39] LABS: CHLORIDE 95 mmol/L (98-107); POTASSIUM 4.7 mmol/L (3.5-5.1); SODIUM 132 mmol/L (136-145)
[2017-11-29 09:02] LABS: MAGNESIUM 2.5 mg/dL (1.8-2.4)
[2017-11-29 09:08] LABS: ALBUMIN 2.8 g/dl (3.4-5.0); ALK PHOS 146 U/L (45-117); ANION GAP 12 (8-16); BILIRUBIN,TOTAL 0.5 mg/dL (0.2-1.0); BLOOD UREA NITROGEN 70 mg/dL (7-18); CO2 25 mmol/L (21-32); CREATININE 2.8 mg/dL (0.7-1.3); GLUCOSE,RANDOM 231 mg/dL (74-106); PHOSPHOROUS 4.4 mg/dL (2.5-4.9); SGOT/AST 18 U/L (15-37); SGPT/ALT 32 U/L (12-78); TOT PROT 6.5 g/dl (6.4-8.2)
[2017-11-29] MEDS: CLOPIDOGREL BISULFATE 75 MG TABLET (FP) PO SCH (09:15)
[2017-11-29] MEDS: FOLIC ACID 1 MG TABLET (FP) PO SCH (09:15)
[2017-11-29] MEDS: ASPIRIN 81 MG CHEWABLE TABLETS PO SCH (09:15)
[2017-11-29] MEDS: CALCIUM ACETATE 667 MG CAPSULE (FP) PO SCH ×3 (09:15→17:27)
[2017-11-29] MEDS: CARVEDILOL 12.5 MG TABLET (FP) PO SCH ×2 (09:15→21:09)
[2017-11-29] MEDS: ISOSORBIDE DINITRATE 20 MG TABLET (FP) PO SCH (09:15)
[2017-11-29] MEDS: ALLOPURINOL 100 MG TABLET (FP) PO SCH (09:16)
[2017-11-29] MEDS: hydrALAZINE HCL 25 MG TABLET (FP) PO SCH ×2 (09:16→21:09)
[2017-11-29 09:36] LABS: ACANTHOCYTES 1+; ANISOCYTOSIS 2+; MACROCYTOSIS 1+; OVALOCYTE 2+; PLATELET ESTIMATE DECREASED; TEAR DROP CELLS 1+
--- NOTE | 2017-11-29 11:14 | PN ---
Progress Note, Physician History of Present Illness: Denies chest pain, denies SOB, denies PND. Appetite better. Urine output good - Current Medication List Current Medications: Active Medications Albumin Human (Albumin Human 25%) [address] [facility] Allopurinol (Zyloprim -) [address] [facility] Last Admin: 11/29/17 09:16 Dose: 300 mg Aspirin (Asa -) [address] [facility] Last Admin: 11/29/17 09:15 Dose: 81 mg Calcium Acetate (Phoslo -) [address] [facility] Last Admin: 11/29/17 09:15 Dose: 667 mg Carvedilol (Coreg -) 12.[address] [facility] Last Admin: 11/29/17 09:15 Dose: 12.5 mg Clopidogrel Bisulfate (Plavix -) [address] [facility] Last Admin: 11/29/17 09:15 Dose: 75 mg Docusate Sodium (Colace -) [address] [facility] Last Admin: 11/29/17 06:26 Dose: 100 mg Folic Acid (Folic Acid -) [address] [facility] Last Admin: 11/29/17 09:15 Dose: 1 mg Furosemide (Lasix Injection -) 100 mg IVPB BID@0600,1400 [facility] Last Admin: 11/29/17 06:25 Dose: 100 mg Hydralazine HCl (Apresoline -) [address] [facility] Last Admin: 11/29/17 09:16 Dose: 25 mg Sodium Chloride (Normal Saline -) 250 mls @ 3,000 mls/hr IV PRN PRN PRN Reason: Hypotension during Dialysis Stop: 11/27/17 12:24 Insulin Aspart (Novolog Vial Sliding Scale -) [facility] Protocol Last Admin: 11/29/17 07:03 Dose: 4 units Insulin Detemir (Levemir Vial) 35 units SQ DAILY@0700 [facility] Last Admin: 11/29/17 07:04 Dose: 35 units Isosorbide Dinitrate (Isordil -) [address] [facility] Last Admin: 11/29/17 09:15 Dose: 20 mg Metolazone (Zaroxolyn -) 5 mg PO DAILY@0530 [facility] Last Admin: 11/29/17 05:51 Dose: 5 mg Rosuvastatin Calcium (Crestor -) 10 mg PO [facility] Last Admin: 11/28/17 22:01 Dose: 10 mg Tamsulosin HCl (Flomax -) 0.4 mg PO [facility] Last Admin: 11/28/17 22:10 Dose: 0.4 mg Warfarin Sodium (Coumadin -) 2 mg PO SuTuThSa@1800 [facility] Last Admin: 11/27/17 17:45 Dose: 2 mg Warfarin Sodium (Coumadin -) 4 mg PO MoWeFr@1800 [facility] Last Admin: 11/28/17 18:22 Dose: 4 mg - Objective Vital Signs: Vital Signs Temperature 97.9 F 11/29/17 06:00 Pulse Rate 69 11/29/17 06:00 Respiratory Rate 18 11/29/17 06:00 Blood Pressure 131/72 11/29/17 06:00 O2 Sat by Pulse Oximetry (%) 99 11/28/17 21:00 Constitutional: Yes: No Distress, Calm Eyes: Yes: Conjunctiva Clear, EOM Intact HENT: Yes: WNL Neck: Yes: Supple Cardiovascular: Yes: Regular Rate and Rhythm, S1, S2 Respiratory: Yes: Regular, Rales Gastrointestinal: Yes: Normal Bowel Sounds, Soft Genitourinary: Yes: WNL Breast(s): Yes: WNL Musculoskeletal: Yes: WNL Extremities: Yes: WNL Edema: No Peripheral Pulses WNL: Yes Integumentary: Yes: WNL Neurological: Yes: Alert, Oriented ...Motor Strength: WNL Psychiatric: Yes: Alert, Oriented Labs: CBC, BMP 11/29/17 07:30 11/29/17 07:30 INR, PTT INR 2.00 (0.82-1.09) H 11/29/17 07:30 Problem List - Problems (1) Acute on chronic systolic and diastolic heart failure, NYHA class 1 Assessment/Plan: CHF seems to be improving without any edema and few rales at base. Code(s): I50.43 - ACUTE ON CHRONIC COMBINED SYSTOLIC AND DIASTOLIC HRT FAIL (2) Fluid overload Assessment/Plan: Sodium is up to 132 indicative of less fluid overload Code(s): E87.70 - FLUID OVERLOAD, UNSPECIFIED Qualifiers: Hypervolemia type: unspecified Qualified Code(s): E87.70 - Fluid overload, unspecified (3) Anemia Assessment/Plan: Hemoglobin is now 9.6 may indicate less dilutional effect or effect of Procrit 20,000 which will help for better oxygenation. Code(s): D64.9 - ANEMIA, UNSPECIFIED Qualifiers: Anemia type: due to chronic kidney disease Chronic kidney disease stage: stage 4 (severe) Qualified Code(s): N18.4 - Chronic kidney disease, stage 4 ( severe); D63.1 - Anemia in chronic kidney disease (4) BPH (benign prostatic hypertrophy) Code(s): N40.0 - BENIGN PROSTATIC HYPERPLASIA WITHOUT LOWER URINRY TRACT SYMP (5) Diabetes 1.5, managed as type 1 Code(s): E13.9 - OTHER SPECIFIED DIABETES MELLITUS WITHOUT COMPLICATIONS (6) Hx of heart artery stent Assessment/Plan: Denies any chest pain and no SOB or PND Code(s): Z95.5 - PRESENCE OF CORONARY ANGIOPLASTY IMPLANT AND GRAFT (7) LV (left ventricular) mural thrombus Code(s): [id number] - Assessment/Plan IMP: Acute on chronic renal failure CHF, CAD Anemia of chronic disease, DM2 on Insulin, LV thrombus. Assess: He continues to show imrpovement in CHF and less fluid overload. Being given a trial off HD to determine whether will require care home HD and placement of permacath.
--- NOTE | 2017-11-29 11:35 | PN ---
Progress Note (short form) - Note Progress Note: [facility] Pt seen and examined. Needs HD access. Will plan for PC on friday. Will need to hold coumadin. INR is already 2.00 Walter Huff DO
--- NOTE | 2017-11-29 11:37 | PN ---
Progress Note (short form) - Note Progress Note: [facility] Please start IV heparin once INR falls below 2. Walter Huff DO
--- NOTE | 2017-11-29 12:12 | PN ---
Progress Note, Physician Chief Complaint: Events noted. Coverage for Dr. Perez Generalized weakness History of Present Illness: Patient was seen and examined. Awake and alert. Chart was reviewed Denies chest pain or shortness of breath Await permacath placement on Friday - Current Medication List Current Medications: Active Medications Albumin Human (Albumin Human 25%) 12.5 gm IVPB Q30M [facility] Allopurinol (Zyloprim -) 300 mg PO DAILY [facility] Last Admin: 11/29/17 09:16 Dose: 300 mg Aspirin (Asa -) 81 mg PO DAILY [facility] Last Admin: 11/29/17 09:15 Dose: 81 mg Calcium Acetate (Phoslo -) 667 mg PO TIDCM [facility] Last Admin: 11/29/17 09:15 Dose: 667 mg Carvedilol (Coreg -) 12.5 mg PO BID [facility] Last Admin: 11/29/17 09:15 Dose: 12.5 mg Clopidogrel Bisulfate (Plavix -) 75 mg PO DAILY [facility] Last Admin: 11/29/17 09:15 Dose: 75 mg Docusate Sodium (Colace -) 100 mg PO TID [facility] Last Admin: 11/29/17 06:26 Dose: 100 mg Folic Acid (Folic Acid -) 1 mg PO DAILY [facility] Last Admin: 11/29/17 09:15 Dose: 1 mg Furosemide (Lasix Injection -) 100 mg IVPB BID@0600,1400 [facility] Last Admin: 11/29/17 06:25 Dose: 100 mg Hydralazine HCl (Apresoline -) 25 mg PO BID [facility] Last Admin: 11/29/17 09:16 Dose: 25 mg Sodium Chloride (Normal Saline -) 250 mls @ 3,000 mls/hr IV PRN PRN PRN Reason: Hypotension during Dialysis Stop: 11/27/17 12:24 Insulin Aspart (Novolog Vial Sliding Scale -) 1 vial SQ TIDAC [facility]; Protocol Last Admin: 11/29/17 07:03 Dose: 4 units Insulin Detemir (Levemir Vial) 35 units SQ DAILY@0700 [facility] Last Admin: 11/29/17 07:04 Dose: 35 units Isosorbide Dinitrate (Isordil -) 20 mg PO DAILY [facility] Last Admin: 11/29/17 09:15 Dose: 20 mg Metolazone (Zaroxolyn -) 5 mg PO DAILY@0530 [facility] Last Admin: 11/29/17 05:51 Dose: 5 mg Rosuvastatin Calcium (Crestor -) 10 mg PO [facility] Last Admin: 11/28/17 22:01 Dose: 10 mg Tamsulosin HCl (Flomax -) 0.4 mg PO [facility] Last Admin: 11/28/17 22:10 Dose: 0.4 mg - Objective Vital Signs: Vital Signs Temperature 98.3 F 11/29/17 10:00 Pulse Rate 76 11/29/17 10:00 Respiratory Rate 18 11/29/17 10:00 Blood Pressure 110/54 11/29/17 10:00 O2 Sat by Pulse Oximetry (%) 99 11/29/17 10:00 Neck: Yes: Supple Cardiovascular: Yes: Regular Rate and Rhythm, S1, S2 Respiratory: Yes: CTA Bilaterally Gastrointestinal: Yes: Normal Bowel Sounds, Soft. No: Tenderness Edema: No Labs: CBC, BMP 11/29/17 07:30 11/29/17 07:30 INR, PTT INR 2.00 (0.82-1.09) H 11/29/17 07:30 Problem List - Problems (1) Acute on chronic systolic and diastolic heart failure, NYHA class 1 Code(s): I50.43 - ACUTE ON CHRONIC COMBINED SYSTOLIC AND DIASTOLIC HRT FAIL (2) Fall Code(s): W19.XXXA - UNSPECIFIED FALL, INITIAL ENCOUNTER Qualifiers: Encounter type: initial encounter Qualified Code(s): W19.XXXA - Unspecified fall, initial encounter (3) Hyperlipidemia Code(s): E78.5 - HYPERLIPIDEMIA, UNSPECIFIED (4) Acute on chronic systolic CHF (congestive heart failure) Code(s): I50.23 - ACUTE ON CHRONIC SYSTOLIC (CONGESTIVE) HEART FAILURE (5) Acute renal failure Code(s): N17.9 - ACUTE KIDNEY FAILURE, UNSPECIFIED (6) Acute thrombus of left ventricle with acute ME Code(s): I21.29 - STEMI INVOLVING OTH SITES (7) CVA (cerebral infarction) Code(s): I63.9 - CEREBRAL INFARCTION, UNSPECIFIED (8) Diabetes mellitus Code(s): E11.9 - TYPE 2 DIABETES MELLITUS WITHOUT COMPLICATIONS Qualifiers: Diabetes mellitus complication status: with ophthalmic complications Diabetes mellitus complication detail: with diabetic retinopathy (9) Hx of heart artery stent Code(s): Z95.5 - PRESENCE OF CORONARY ANGIOPLASTY IMPLANT AND GRAFT (10) LV (left ventricular) mural thrombus Code(s): [id number] - (11) Renal dysfunction Code(s): N28.9 - DISORDER OF KIDNEY AND URETER, UNSPECIFIED Assessment/Plan 1. Acute on chronic systolic and diastolic heart failure NYHA class 1 2. CAD, history of NSTEMI, PCI, angina 3. HTN 4. Hypercholesterolemia 5. IDDM 6. LV apical thrombus 7. Mechanical fall 8. THEE in the setting of CKD PLAN: 1. Continue present management per Renal service. Await permacath on Friday. INR is being monitored closely. If INR less than 2.0, consider Heparin drip as a bridge. Monitor renal function and electrolytes 2. Continue Carvedilol, Hydralazine and Isosorbide 3. Currently on ASA and Plavix 4. Continue Rosuvastatin 5. Diuretics including Lasix IV and Zaroxolyn has been given (at the discretion of the arnp) Guarded Further plans are to follow Moises Joyner MD
--- NOTE | 2017-11-29 14:08 | PN ---
Progress Note (short form) - Note Progress Note: Renal follow up for THEE and Volume overlaod Pt seen and examined at the bedside awake and alert sitting in chair no acute complaints tolerating oral diet making urine but not quantified no SOB, uses 2 pillows at night Vital Signs Temperature 98.3 F 11/29/17 10:00 Pulse Rate 76 11/29/17 10:00 Respiratory Rate 18 11/29/17 10:00 Blood Pressure 110/54 11/29/17 10:00 O2 Sat by Pulse Oximetry (%) 99 11/29/17 10:00 Intake & Output 11/26/17 11/27/17 11/28/17 11/29/17 23:59 23:59 23:59 23:59 Intake Total 949 947 5455 Balance 307 398 1341 Weight 72.938 kg 75.75 kg 77.201 kg NAD on NC O2 RRR + rales b/l lungs soft NT/ND trace edema in LE CBC, BMP 11/29/17 07:30 11/29/17 07:30 Current Medications Albumin Human (Albumin Human 25%) 12.5 gm IVPB Q30M [facility] Allopurinol (Zyloprim -) 300 mg PO DAILY [facility] Last Admin: 11/29/17 09:16 Dose: 300 mg Aspirin (Asa -) 81 mg PO DAILY [facility] Last Admin: 11/29/17 09:15 Dose: 81 mg Calcium Acetate (Phoslo -) 667 mg PO TIDCM [facility] Last Admin: 11/29/17 12:08 Dose: 667 mg Carvedilol (Coreg -) 12.5 mg PO BID [facility] Last Admin: 11/29/17 09:15 Dose: 12.5 mg Clopidogrel Bisulfate (Plavix -) 75 mg PO DAILY [facility] Last Admin: 11/29/17 09:15 Dose: 75 mg Docusate Sodium (Colace -) 100 mg PO TID [facility] Last Admin: 11/29/17 06:26 Dose: 100 mg Folic Acid (Folic Acid -) 1 mg PO DAILY [facility] Last Admin: 11/29/17 09:15 Dose: 1 mg Furosemide (Lasix Injection -) 100 mg IVPB BID@0600,1400 [facility] Last Admin: 11/29/17 06:25 Dose: 100 mg Hydralazine HCl (Apresoline -) 25 mg PO BID [facility] Last Admin: 11/29/17 09:16 Dose: 25 mg Sodium Chloride (Normal Saline -) 250 mls @ 3,000 mls/hr IV PRN PRN PRN Reason: Hypotension during Dialysis Stop: 11/27/17 12:24 Insulin Aspart (Novolog Vial Sliding Scale -) 1 vial SQ TIDAC [facility]; Protocol Last Admin: 11/29/17 12:09 Dose: 8 units Insulin Detemir (Levemir Vial) 35 units SQ DAILY@0700 [facility] Last Admin: 11/29/17 07:04 Dose: 35 units Isosorbide Dinitrate (Isordil -) 20 mg PO DAILY [facility] Last Admin: 11/29/17 09:15 Dose: 20 mg Metolazone (Zaroxolyn -) 10 mg PO DAILY@0530 [facility] Rosuvastatin Calcium (Crestor -) 10 mg PO [facility] Last Admin: 11/28/17 22:01 Dose: 10 mg Tamsulosin HCl (Flomax -) 0.4 mg PO [facility] Last Admin: 11/28/17 22:10 Dose: 0.4 mg 77 year old gentleman with PMhx of CAD s/p [place], CHF, Hypertension, IDDM, HLD, CKD , with recent THEE who presented from home with fall and found to have THEE and fluid overlaod/CHF. #THEE on CKD in setting of volume overload #Acute CHF #Anemia #CAD BUN/Cr slowly trending up off dialysis Weight increasing despite diuretics will increase metoalzone to 10mg daily (may not be effective given eGFR is so low) Vascular consult appreciated Trend BUN/Cr and electrolytes Florencio Del Cid DO
[2017-11-29] MEDS ORDERED: PT OWN MED DRAWER 7, Y5N ONE (15:27)
[2017-11-29] MEDS: ROSUVASTATIN CA 10 MG TABLET (FP) PO SCH (21:09)
[2017-11-29] MEDS: TAMSULOSIN HCL 0.4 MG CAP.ER.24H (FP) PO SCH (21:09)
[2017-11-30] MEDS ORDERED: PT OWN MED DRAWER 7, Y5N ONE (05:22)
[2017-11-30] MEDS: DOCUSATE SODIUM 100 MG CAPSULE (FP) PO SCH ×3 (05:31→21:57)
[2017-11-30] MEDS: METOLAZONE 5 MG TABLET PO SCH (05:31)
[2017-11-30] MEDS: INSULIN (LEVEMIR) 100 UNITS/ML UNITS SQ SCH (06:47)
[2017-11-30] MEDS: FUROSEMIDE 100 MG/10 ML INJECTABLE VIAL IVPB SCH ×2 (06:47→15:50)
[2017-11-30] MEDS: INSULIN SLIDING SCALE (NOVOLOG) 1 VIAL SQ SCH ×3 (06:48→17:08)
[2017-11-30 07:00] LABS: INR 1.81 (0.82-1.09); PROTHROMBIN TIME (PATIENT) 20.5 SEC (9.7-13.0)
[2017-11-30 07:26] LABS: CHLORIDE 91 mmol/L (98-107); POTASSIUM 4.2 mmol/L (3.5-5.1); SODIUM 131 mmol/L (136-145)
[2017-11-30 07:31] LABS: ANION GAP 13 (8-16); BLOOD UREA NITROGEN 86 mg/dL (7-18); CO2 27 mmol/L (21-32); CREATININE 2.7 mg/dL (0.7-1.3); GLUCOSE,RANDOM 201 mg/dL (74-106)
[2017-11-30] MEDS: CALCIUM ACETATE 667 MG CAPSULE (FP) PO SCH ×3 (08:25→17:12)
[2017-11-30] MEDS ORDERED: HEPARIN NA (PORCINE) 5,000 UNITS/ML 1ML VIAL IVPUSH PRN ×2 (08:51)
[2017-11-30] MEDS ORDERED: HEPARIN SOD,PORK IN 0.45% NACL 25,000 UNITS/500 ML INFUS.BAG IVPB SCH (09:00)
[2017-11-30] MEDS ORDERED: SODIUM CHLORIDE 250 ML IV PRN (09:43)
--- NOTE | 2017-11-30 09:43 | PN ---
Progress Note (short form) - Note Progress Note: Renal follow up for THEE and Volume overlaod Pt seen and examined at the bedside no acute complaints making urine but not quantified denies overt sob Vital Signs Temperature 97.8 F 11/30/17 02:00 Pulse Rate 67 11/30/17 02:00 Respiratory Rate 20 11/30/17 02:00 Blood Pressure 131/76 11/30/17 02:00 O2 Sat by Pulse Oximetry (%) 99 11/29/17 21:00 Intake & Output 11/27/17 11/28/17 11/29/17 11/30/17 23:59 23:59 23:59 23:59 Intake Total 850 1130 0 65 Balance 850 1130 0 65 Weight 75.75 kg 77.201 kg 77.167 kg NAD on NC O2 RRR + rales b/l lungs soft NT/ND trace edema in LE CBC, BMP 11/29/17 07:30 11/30/17 05:30 Current Medications Albumin Human (Albumin Human 25%) 12.5 gm IVPB Q30M [facility] Allopurinol (Zyloprim -) 300 mg PO DAILY [facility] Last Admin: 11/29/17 09:16 Dose: 300 mg Aspirin (Asa -) 81 mg PO DAILY [facility] Last Admin: 11/29/17 09:15 Dose: 81 mg Calcium Acetate (Phoslo -) 667 mg PO TIDCM [facility] Last Admin: 11/29/17 17:27 Dose: 667 mg Carvedilol (Coreg -) 12.5 mg PO BID [facility] Last Admin: 11/29/17 21:09 Dose: 12.5 mg Clopidogrel Bisulfate (Plavix -) 75 mg PO DAILY [facility] Last Admin: 11/29/17 09:15 Dose: 75 mg Docusate Sodium (Colace -) 100 mg PO TID [facility] Last Admin: 11/30/17 05:31 Dose: 100 mg Folic Acid (Folic Acid -) 1 mg PO DAILY [facility] Last Admin: 11/29/17 09:15 Dose: 1 mg Furosemide (Lasix Injection -) 100 mg IVPB BID@0600,1400 [facility] Last Admin: 11/30/17 06:47 Dose: 100 mg Heparin Sodium (Porcine) (Heparin -) 1,000 unit IVPUSH PRN PRN PRN Reason: Heparin Heparin Sodium (Porcine) (Heparin -) 5,000 unit IVPUSH PRN PRN PRN Reason: Heparin Hydralazine HCl (Apresoline -) 25 mg PO BID [facility] Last Admin: 11/29/17 21:09 Dose: 25 mg Sodium Chloride (Normal Saline -) 250 mls @ 3,000 mls/hr IV PRN PRN PRN Reason: Hypotension during Dialysis Stop: 11/27/17 12:24 HEPARIN SOD,PORK IN 0.45% NACL (Heparin-1/2ns 25,000 Units/500) 25,000 units in 500 mls @ 20 mls/hr IVPB TITR [facility]; Protocol Insulin Aspart (Novolog Vial Sliding Scale -) 1 vial SQ TIDAC [facility]; Protocol Last Admin: 11/30/17 06:48 Dose: 2 units Insulin Detemir (Levemir Vial) 35 units SQ DAILY@0700 [facility] Last Admin: 11/30/17 06:47 Dose: 35 units Isosorbide Dinitrate (Isordil -) 20 mg PO DAILY [facility] Last Admin: 11/29/17 09:15 Dose: 20 mg Metolazone (Zaroxolyn -) 10 mg PO DAILY@0530 [facility] Last Admin: 11/30/17 05:31 Dose: 10 mg Rosuvastatin Calcium (Crestor -) 10 mg PO HS [facility] Last Admin: 11/29/17 21:09 Dose: 10 mg Tamsulosin HCl (Flomax -) 0.4 mg PO [facility] Last Admin: 11/29/17 21:09 Dose: 0.4 mg 77 year old gentleman with PMhx of CAD s/p [place], CHF, Hypertension, IDDM, HLD, CKD , with recent THEE who presented from home with fall and found to have THEE and fluid overlaod/CHF. #THEE on CKD in setting of volume overload #Acute CHF #Anemia #CAD pt unable to achieve suffiecent diuresis with diuretics alone will plan for permacath placement tomorrow and HD will need outpatient HD unit placement continue Lasix and metolazone will continue AMY with HD started Heparin gtt as INR < 2 Florencio Del Cid DO
--- NOTE | 2017-11-30 09:59 | PN ---
Progress Note, Physician - Current Medication List Current Medications: Active Medications Albumin Human (Albumin Human 25%) 12.5 gm IVPB Q30M [facility] Allopurinol (Zyloprim -) 300 mg PO DAILY [facility] Last Admin: 11/29/17 09:16 Dose: 300 mg Aspirin (Asa -) 81 mg PO DAILY [facility] Last Admin: 11/29/17 09:15 Dose: 81 mg Calcium Acetate (Phoslo -) 667 mg PO TIDCM [facility] Last Admin: 11/29/17 17:27 Dose: 667 mg Carvedilol (Coreg -) 12.5 mg PO BID [facility] Last Admin: 11/29/17 21:09 Dose: 12.5 mg Clopidogrel Bisulfate (Plavix -) 75 mg PO DAILY [facility] Last Admin: 11/29/17 09:15 Dose: 75 mg Docusate Sodium (Colace -) 100 mg PO TID [facility] Last Admin: 11/30/17 05:31 Dose: 100 mg Epoetin Fahad (Procrit -) 10,000 unit IVPUSH ONCE ONE Stop: 12/01/17 06:01 Folic Acid (Folic Acid -) 1 mg PO DAILY [facility] Last Admin: 11/29/17 09:15 Dose: 1 mg Furosemide (Lasix Injection -) 100 mg IVPB BID@0600,1400 [facility] Last Admin: 11/30/17 06:47 Dose: 100 mg Heparin Sodium (Porcine) (Heparin -) 1,000 unit IVPUSH PRN PRN PRN Reason: Heparin Heparin Sodium (Porcine) (Heparin -) 5,000 unit IVPUSH PRN PRN PRN Reason: Heparin Hydralazine HCl (Apresoline -) 25 mg PO BID [facility] Last Admin: 11/29/17 21:09 Dose: 25 mg Sodium Chloride (Normal Saline -) 250 mls @ 3,000 mls/hr IV PRN PRN PRN Reason: Hypotension during Dialysis Stop: 11/27/17 12:24 HEPARIN SOD,PORK IN 0.45% NACL (Heparin-1/2ns 25,000 Units/500) 25,000 units in 500 mls @ 20 mls/hr IVPB [facility]; Protocol Sodium Chloride (Normal Saline -) 250 mls @ 3,000 mls/hr IV PRN PRN PRN Reason: Hypotension during Dialysis Stop: 12/01/17 09:43 Iron Sucrose 100 mg/ Sodium (Chloride) 100 mls @ 200 mls/hr IVPB ONCE ONE Stop: 12/01/17 10:29 Insulin Aspart (Novolog Vial Sliding Scale -) 1 vial SQ TIDAC [facility]; Protocol Last Admin: 11/30/17 06:48 Dose: 2 units Insulin Detemir (Levemir Vial) 35 units SQ DAILY@0700 [facility] Last Admin: 11/30/17 06:47 Dose: 35 units Isosorbide Dinitrate (Isordil -) 20 mg PO DAILY [facility] Last Admin: 11/29/17 09:15 Dose: 20 mg Metolazone (Zaroxolyn -) 10 mg PO DAILY@0530 [facility] Last Admin: 11/30/17 05:31 Dose: 10 mg Rosuvastatin Calcium (Crestor -) 10 mg PO [facility] Last Admin: 11/29/17 21:09 Dose: 10 mg Tamsulosin HCl (Flomax -) 0.4 mg PO [facility] Last Admin: 11/29/17 21:09 Dose: 0.4 mg - Objective Vital Signs: Vital Signs Temperature 97.8 F 11/30/17 02:00 Pulse Rate 67 11/30/17 02:00 Respiratory Rate 20 11/30/17 02:00 Blood Pressure 131/76 11/30/17 02:00 O2 Sat by Pulse Oximetry (%) 99 11/29/17 21:00 Labs: CBC, BMP 11/29/17 07:30 11/30/17 05:30 INR, PTT INR 1.81 (0.82-1.09) H 11/30/17 05:30 Assessment/Plan ASSESSMENT AND PLAN: Acute on Chronic Renal Failure requiring HD Acute on Chronic Systolic/Diastolic Heart Failure Volume Overload Hyponatremia CAD LV Thrombus HTN DM Hyperlipidemia - HD Per Renal - Lasix, zaroxolyn - monitor urine output, creatinine - monitor lytes - Anticoagulation - O2 to keep Spo2 >90% DR CARCAMO Problem List - Problems (1) Fall Code(s): W19.XXXA - UNSPECIFIED FALL, INITIAL ENCOUNTER Qualifiers: Encounter type: initial encounter Qualified Code(s): W19.XXXA - Unspecified fall, initial encounter (2) Fluid overload Code(s): E87.70 - FLUID OVERLOAD, UNSPECIFIED Qualifiers: Hypervolemia type: unspecified Qualified Code(s): E87.70 - Fluid overload, unspecified (3) Hyponatremia Code(s): E87.1 - HYPO-OSMOLALITY AND HYPONATREMIA (4) Acute on chronic systolic CHF (congestive heart failure) Code(s): I50.23 - ACUTE ON CHRONIC SYSTOLIC (CONGESTIVE) HEART FAILURE (5) Acute renal failure Code(s): N17.9 - ACUTE KIDNEY FAILURE, UNSPECIFIED (6) Anemia Code(s): D64.9 - ANEMIA, UNSPECIFIED Qualifiers: Anemia type: due to chronic kidney disease Chronic kidney disease stage: stage 4 (severe) Qualified Code(s): N18.4 - Chronic kidney disease, stage 4 ( severe); D63.1 - Anemia in chronic kidney disease (7) BPH (benign prostatic hypertrophy) Code(s): N40.0 - BENIGN PROSTATIC HYPERPLASIA WITHOUT LOWER URINRY TRACT SYMP (8) Chronic renal disease Code(s): N18.9 - CHRONIC KIDNEY DISEASE, UNSPECIFIED Qualifiers: Chronic kidney disease stage: stage 4 (severe) Qualified Code(s): N18.4 - Chronic kidney disease, stage 4 (severe) (9) Diabetes mellitus Code(s): E11.9 - TYPE 2 DIABETES MELLITUS WITHOUT COMPLICATIONS Qualifiers: Diabetes mellitus complication status: with ophthalmic complications Diabetes mellitus complication detail: with diabetic retinopathy (10) HTN (hypertension) Code(s): I10 - ESSENTIAL (PRIMARY) HYPERTENSION (11) Hx of heart artery stent Code(s): Z95.5 - PRESENCE OF CORONARY ANGIOPLASTY IMPLANT AND GRAFT
--- NOTE | 2017-11-30 10:18 | PN ---
Progress Note, Physician History of Present Illness: pulmonary feeling better,-sob,-cp - Current Medication List Current Medications: Active Medications Albumin Human (Albumin Human 25%) 12.5 gm IVPB Q30M [facility] Allopurinol (Zyloprim -) 300 mg PO DAILY [facility] Last Admin: 11/29/17 09:16 Dose: 300 mg Aspirin (Asa -) 81 mg PO DAILY [facility] Last Admin: 11/29/17 09:15 Dose: 81 mg Calcium Acetate (Phoslo -) 667 mg PO TIDCM [facility] Last Admin: 11/29/17 17:27 Dose: 667 mg Carvedilol (Coreg -) 12.5 mg PO BID [facility] Last Admin: 11/29/17 21:09 Dose: 12.5 mg Clopidogrel Bisulfate (Plavix -) 75 mg PO DAILY [facility] Last Admin: 11/29/17 09:15 Dose: 75 mg Docusate Sodium (Colace -) 100 mg PO TID [facility] Last Admin: 11/30/17 05:31 Dose: 100 mg Epoetin Fahad (Procrit -) 10,000 unit IVPUSH ONCE ONE Stop: 12/01/17 06:01 Folic Acid (Folic Acid -) 1 mg PO DAILY [facility] Last Admin: 11/29/17 09:15 Dose: 1 mg Furosemide (Lasix Injection -) 100 mg IVPB BID@0600,1400 [facility] Last Admin: 11/30/17 06:47 Dose: 100 mg Heparin Sodium (Porcine) (Heparin -) 1,000 unit IVPUSH PRN PRN PRN Reason: Heparin Heparin Sodium (Porcine) (Heparin -) 5,000 unit IVPUSH PRN PRN PRN Reason: Heparin Hydralazine HCl (Apresoline -) 25 mg PO BID [facility] Last Admin: 11/29/17 21:09 Dose: 25 mg Sodium Chloride (Normal Saline -) 250 mls @ 3,000 mls/hr IV PRN PRN PRN Reason: Hypotension during Dialysis Stop: 11/27/17 12:24 HEPARIN SOD,PORK IN 0.45% NACL (Heparin-1/2ns 25,000 Units/500) 25,000 units in 500 mls @ 20 mls/hr IVPB [facility]; Protocol Sodium Chloride (Normal Saline -) 250 mls @ 3,000 mls/hr IV PRN PRN PRN Reason: Hypotension during Dialysis Stop: 12/01/17 09:43 Iron Sucrose 100 mg/ Sodium (Chloride) 100 mls @ 200 mls/hr IVPB ONCE ONE Stop: 12/01/17 10:29 Insulin Aspart (Novolog Vial Sliding Scale -) 1 vial SQ TIDAC [facility]; Protocol Last Admin: 11/30/17 06:48 Dose: 2 units Insulin Detemir (Levemir Vial) 35 units SQ DAILY@0700 [facility] Last Admin: 11/30/17 06:47 Dose: 35 units Isosorbide Dinitrate (Isordil -) 20 mg PO DAILY [facility] Last Admin: 11/29/17 09:15 Dose: 20 mg Metolazone (Zaroxolyn -) 10 mg PO DAILY@0530 [facility] Last Admin: 11/30/17 05:31 Dose: 10 mg Rosuvastatin Calcium (Crestor -) 10 mg PO [facility] Last Admin: 11/29/17 21:09 Dose: 10 mg Tamsulosin HCl (Flomax -) 0.4 mg PO [facility] Last Admin: 11/29/17 21:09 Dose: 0.4 mg - Objective Vital Signs: Vital Signs Temperature 97.8 F 11/30/17 02:00 Pulse Rate 67 11/30/17 02:00 Respiratory Rate 20 11/30/17 02:00 Blood Pressure 131/76 11/30/17 02:00 O2 Sat by Pulse Oximetry (%) 99 11/29/17 21:00 Constitutional: Yes: Well Nourished, Calm Eyes: Yes: WNL HENT: Yes: WNL Neck: Yes: WNL Cardiovascular: Yes: Regular Rate and Rhythm, S1, S2 Respiratory: Yes: Rales (bibasialr rales) Gastrointestinal: Yes: Normal Bowel Sounds, Soft Extremities: Yes: WNL Edema: No Labs: CBC, BMP 11/30/17 05:30 INR, PTT INR 1.81 (0.82-1.09) H 11/30/17 05:30 Assessment/Plan ASSESSMENT AND PLAN: Acute on Chronic Renal Failure requiring HD Acute on Chronic Systolic/Diastolic Heart Failure Volume Overload Hyponatremia CAD LV Thrombus HTN DM Hyperlipidemia - HD Per Renal - Lasix, zaroxolyn - monitor urine output, creatinine - monitor lytes - Anticoagulation - O2 to keep Spo2 >90% DR CARCAMO Problem List - Problems (1) Fall Code(s): W19.XXXA - UNSPECIFIED FALL, INITIAL ENCOUNTER Qualifiers: Encounter type: initial encounter Qualified Code(s): W19.XXXA - Unspecified fall, initial encounter (2) Fluid overload Code(s): E87.70 - FLUID OVERLOAD, UNSPECIFIED Qualifiers: Hypervolemia type: unspecified Qualified Code(s): E87.70 - Fluid overload, unspecified (3) Hyponatremia Code(s): E87.1 - HYPO-OSMOLALITY AND HYPONATREMIA (4) Acute on chronic systolic CHF (congestive heart failure) Code(s): I50.23 - ACUTE ON CHRONIC SYSTOLIC (CONGESTIVE) HEART FAILURE (5) Acute renal failure Code(s): N17.9 - ACUTE KIDNEY FAILURE, UNSPECIFIED (6) Anemia Code(s): D64.9 - ANEMIA, UNSPECIFIED Qualifiers: Anemia type: due to chronic kidney disease Chronic kidney disease stage: stage 4 (severe) Qualified Code(s): N18.4 - Chronic kidney disease, stage 4 ( severe); D63.1 - Anemia in chronic kidney disease (7) BPH (benign prostatic hypertrophy) Code(s): N40.0 - BENIGN PROSTATIC HYPERPLASIA WITHOUT LOWER URINRY TRACT SYMP (8) Chronic renal disease Code(s): N18.9 - CHRONIC KIDNEY DISEASE, UNSPECIFIED Qualifiers: Chronic kidney disease stage: stage 4 (severe) Qualified Code(s): N18.4 - Chronic kidney disease, stage 4 (severe) (9) Diabetes mellitus Code(s): E11.9 - TYPE 2 DIABETES MELLITUS WITHOUT COMPLICATIONS Qualifiers: Diabetes mellitus complication status: with ophthalmic complications Diabetes mellitus complication detail: with diabetic retinopathy (10) HTN (hypertension) Code(s): I10 - ESSENTIAL (PRIMARY) HYPERTENSION (11) Hx of heart artery stent Code(s): Z95.5 - PRESENCE OF CORONARY ANGIOPLASTY IMPLANT AND GRAFT
[2017-11-30] MEDS: FOLIC ACID 1 MG TABLET (FP) PO SCH (10:24)
[2017-11-30] MEDS: ISOSORBIDE DINITRATE 20 MG TABLET (FP) PO SCH (10:24)
[2017-11-30] MEDS: hydrALAZINE HCL 25 MG TABLET (FP) PO SCH ×2 (10:25→21:57)
[2017-11-30] MEDS: CLOPIDOGREL BISULFATE 75 MG TABLET (FP) PO SCH (10:25)
[2017-11-30] MEDS: CARVEDILOL 12.5 MG TABLET (FP) PO SCH ×2 (10:25→21:57)
[2017-11-30] MEDS: ASPIRIN 81 MG CHEWABLE TABLETS PO SCH (10:37)
--- NOTE | 2017-11-30 10:44 | PN ---
Progress Note, Physician Chief Complaint: Events noted. Coverage for Dr. Perez Generalized weakness More awake History of Present Illness: Patient was seen and examined. Awake and alert. Chart was reviewed Denies chest pain or shortness of breath Await permacath placement on Friday - Current Medication List Current Medications: Active Medications Albumin Human (Albumin Human 25%) 12.5 gm IVPB Q30M [facility] Allopurinol (Zyloprim -) 300 mg PO DAILY [facility] Last Admin: 11/29/17 09:16 Dose: 300 mg Aspirin (Asa -) 81 mg PO DAILY [facility] Last Admin: 11/29/17 09:15 Dose: 81 mg Calcium Acetate (Phoslo -) 667 mg PO TIDCM [facility] Last Admin: 11/30/17 08:25 Dose: 667 mg Carvedilol (Coreg -) 12.5 mg PO BID [facility] Last Admin: 11/30/17 10:25 Dose: 12.5 mg Clopidogrel Bisulfate (Plavix -) 75 mg PO DAILY [facility] Last Admin: 11/30/17 10:25 Dose: 75 mg Docusate Sodium (Colace -) 100 mg PO TID [facility] Last Admin: 11/30/17 05:31 Dose: 100 mg Epoetin Fahad (Procrit -) 10,000 unit IVPUSH ONCE ONE Stop: 12/01/17 06:01 Folic Acid (Folic Acid -) 1 mg PO DAILY [facility] Last Admin: 11/30/17 10:24 Dose: 1 mg Furosemide (Lasix Injection -) 100 mg IVPB BID@0600,1400 [facility] Last Admin: 11/30/17 06:47 Dose: 100 mg Heparin Sodium (Porcine) (Heparin -) 1,000 unit IVPUSH PRN PRN PRN Reason: Heparin Heparin Sodium (Porcine) (Heparin -) 5,000 unit IVPUSH PRN PRN PRN Reason: Heparin Hydralazine HCl (Apresoline -) 25 mg PO BID [facility] Last Admin: 11/30/17 10:25 Dose: 25 mg Sodium Chloride (Normal Saline -) 250 mls @ 3,000 mls/hr IV PRN PRN PRN Reason: Hypotension during Dialysis Stop: 11/27/17 12:24 HEPARIN SOD,PORK IN 0.45% NACL (Heparin-1/2ns 25,000 Units/500) 25,000 units in 500 mls @ 20 mls/hr IVPB TITR [facility]; Protocol Last Admin: 11/30/17 10:28 Dose: 1,000 units/hr, 20 mls/hr Sodium Chloride (Normal Saline -) 250 mls @ 3,000 mls/hr IV PRN PRN PRN Reason: Hypotension during Dialysis Stop: 12/01/17 09:43 Iron Sucrose 100 mg/ Sodium (Chloride) 100 mls @ 200 mls/hr IVPB ONCE ONE Stop: 12/01/17 10:29 Insulin Aspart (Novolog Vial Sliding Scale -) 1 vial SQ TIDAC [facility]; Protocol Last Admin: 11/30/17 06:48 Dose: 2 units Insulin Detemir (Levemir Vial) 35 units SQ DAILY@0700 [facility] Last Admin: 11/30/17 06:47 Dose: 35 units Isosorbide Dinitrate (Isordil -) 20 mg PO DAILY [facility] Last Admin: 11/30/17 10:24 Dose: 20 mg Metolazone (Zaroxolyn -) 10 mg PO DAILY@0530 [facility] Last Admin: 11/30/17 05:31 Dose: 10 mg Rosuvastatin Calcium (Crestor -) 10 mg PO [facility] Last Admin: 11/29/17 21:09 Dose: 10 mg Tamsulosin HCl (Flomax -) 0.4 mg PO [facility] Last Admin: 11/29/17 21:09 Dose: 0.4 mg - Objective Vital Signs: Vital Signs Temperature 97.8 F 11/30/17 02:00 Pulse Rate 67 11/30/17 02:00 Respiratory Rate 20 11/30/17 02:00 Blood Pressure 131/76 11/30/17 02:00 O2 Sat by Pulse Oximetry (%) 99 11/29/17 21:00 HENT: Yes: Atraumatic Neck: Yes: Supple Cardiovascular: Yes: Regular Rate and Rhythm, S1, S2 Respiratory: Yes: Diminished Gastrointestinal: Yes: Normal Bowel Sounds, Soft. No: Tenderness Edema: No Labs: CBC, BMP 11/29/17 07:30 11/30/17 05:30 INR, PTT INR 1.81 (0.82-1.09) H 11/30/17 05:30 Problem List - Problems (1) Acute on chronic systolic and diastolic heart failure, NYHA class 1 Code(s): I50.43 - ACUTE ON CHRONIC COMBINED SYSTOLIC AND DIASTOLIC HRT FAIL (2) Fall Code(s): W19.XXXA - UNSPECIFIED FALL, INITIAL ENCOUNTER Qualifiers: Encounter type: initial encounter Qualified Code(s): W19.XXXA - Unspecified fall, initial encounter (3) Hyperlipidemia Code(s): E78.5 - HYPERLIPIDEMIA, UNSPECIFIED Qualifiers: Hyperlipidemia type: pure hypercholesterolemia Qualified Code(s): E78.00 - Pure hypercholesterolemia, unspecified; E78.0 - Pure hypercholesterolemia (4) Acute on chronic systolic CHF (congestive heart failure) Code(s): I50.23 - ACUTE ON CHRONIC SYSTOLIC (CONGESTIVE) HEART FAILURE (5) Acute renal failure Code(s): N17.9 - ACUTE KIDNEY FAILURE, UNSPECIFIED (6) Acute thrombus of left ventricle with acute MD Code(s): I21.29 - STEMI INVOLVING OTH SITES (7) CVA (cerebral infarction) Code(s): I63.9 - CEREBRAL INFARCTION, UNSPECIFIED Qualifiers: Cerebral infarction mechanism: unspecified mechanism Qualified Code(s): I63.9 - Cerebral infarction, unspecified (8) Diabetes mellitus Code(s): E11.9 - TYPE 2 DIABETES MELLITUS WITHOUT COMPLICATIONS Qualifiers: Diabetes mellitus type: type 2 Diabetes mellitus complication status: with ophthalmic complications Diabetes mellitus complication detail: with diabetic retinopathy (9) Hx of heart artery stent Code(s): Z95.5 - PRESENCE OF CORONARY ANGIOPLASTY IMPLANT AND GRAFT (10) LV (left ventricular) mural thrombus Code(s): [id number] - (11) Renal dysfunction Code(s): N28.9 - DISORDER OF KIDNEY AND URETER, UNSPECIFIED Assessment/Plan 1. Acute on chronic systolic and diastolic heart failure NYHA class 1 2. CAD, history of NSTEMI, PCI, angina 3. HTN 4. Hypercholesterolemia 5. IDDM 6. LV apical thrombus 7. Mechanical fall 8. THEE in the setting of CKD PLAN: 1. Continue present management per Renal service. Await permacath tomorrow. INR is being monitored closely. If INR less than 2.0, consider Heparin drip as a bridge. Monitor renal function and electrolytes 2. Continue Carvedilol, Hydralazine and Isosorbide 3. Currently on ASA and Plavix 4. Continue Rosuvastatin 5. Diuretics including Lasix IV and Zaroxolyn as tolerated Guarded Further plans are to follow Sang H. Anya MD
[2017-11-30] MEDS: ALLOPURINOL 100 MG TABLET (FP) PO SCH (11:56)
[2017-11-30] MEDS ORDERED: INSULIN (NOVOLOG) ASPART 100 UNITS/ML 10ML VIAL SQ ONE ×2 (17:15→21:45)
--- NOTE | 2017-11-30 21:24 | PN ---
Progress Note, Physician History of Present Illness: Feels better, denies chest pain, SOB, PND. - Current Medication List Current Medications: Active Medications Albumin Human (Albumin Human 25%) 12.5 gm IVPB Q30M [facility] Allopurinol (Zyloprim -) 300 mg PO DAILY [facility] Last Admin: 11/30/17 11:56 Dose: 300 mg Aspirin (Asa -) 81 mg PO DAILY [facility] Last Admin: 11/30/17 10:37 Dose: 81 mg Calcium Acetate (Phoslo -) 667 mg PO TIDCM [facility] Last Admin: 11/30/17 17:12 Dose: 667 mg Carvedilol (Coreg -) 12.5 mg PO BID [facility] Last Admin: 11/30/17 10:25 Dose: 12.5 mg Clopidogrel Bisulfate (Plavix -) 75 mg PO DAILY [facility] Last Admin: 11/30/17 10:25 Dose: 75 mg Docusate Sodium (Colace -) 100 mg PO TID [facility] Last Admin: 11/30/17 14:35 Dose: 100 mg Epoetin Fahad (Procrit -) 10,000 unit IVPUSH ONCE ONE Stop: 12/01/17 06:01 Escitalopram Oxalate (Lexapro -) 5 mg PO [facility] Folic Acid (Folic Acid -) 1 mg PO DAILY [facility] Last Admin: 11/30/17 10:24 Dose: 1 mg Furosemide (Lasix Injection -) 100 mg IVPB BID@0600,1400 [facility] Last Admin: 11/30/17 15:50 Dose: 100 mg Heparin Sodium (Porcine) (Heparin -) 1,000 unit IVPUSH PRN PRN PRN Reason: Heparin Heparin Sodium (Porcine) (Heparin -) 5,000 unit IVPUSH PRN PRN PRN Reason: Heparin Hydralazine HCl (Apresoline -) 25 mg PO BID [facility] Last Admin: 11/30/17 10:25 Dose: 25 mg Sodium Chloride (Normal Saline -) 250 mls @ 3,000 mls/hr IV PRN PRN PRN Reason: Hypotension during Dialysis Stop: 11/27/17 12:24 HEPARIN SOD,PORK IN 0.45% NACL (Heparin-1/2ns 25,000 Units/500) 25,000 units in 500 mls @ 20 mls/hr IVPB [facility]; Protocol Stop: 12/01/17 08:00 Last Titration: 11/30/17 18:47 Dose: 700 units/hr, 14 mls/hr Sodium Chloride (Normal Saline -) 250 mls @ 3,000 mls/hr IV PRN PRN PRN Reason: Hypotension during Dialysis Stop: 12/01/17 09:43 Iron Sucrose 100 mg/ Sodium (Chloride) 100 mls @ 200 mls/hr IVPB ONCE ONE Stop: 12/01/17 10:29 Insulin Aspart (Novolog Vial Sliding Scale -) [facility]; Protocol Last Admin: 11/30/17 17:08 Dose: Not Given Insulin Detemir (Levemir Vial) 35 units SQ DAILY@0700 [facility] Last Admin: 11/30/17 06:47 Dose: 35 units Isosorbide Dinitrate (Isordil -) 20 mg PO DAILY [facility] Last Admin: 11/30/17 10:24 Dose: 20 mg Metolazone (Zaroxolyn -) 10 mg PO DAILY@0530 [facility] Last Admin: 11/30/17 05:31 Dose: 10 mg Rosuvastatin Calcium (Crestor -) 10 mg PO [facility] Last Admin: 11/29/17 21:09 Dose: 10 mg Tamsulosin HCl (Flomax -) 0.4 mg PO [facility] Last Admin: 11/29/17 21:09 Dose: 0.4 mg - Objective Vital Signs: Vital Signs Temperature 98.9 F 11/30/17 13:00 Pulse Rate 73 11/30/17 13:00 Respiratory Rate 20 11/30/17 13:00 Blood Pressure 126/64 11/30/17 13:00 O2 Sat by Pulse Oximetry (%) 98 11/30/17 10:00 Constitutional: Yes: Well Nourished, No Distress, Calm Eyes: Yes: Conjunctiva Clear, EOM Intact HENT: Yes: WNL Neck: Yes: Supple Cardiovascular: Yes: Regular Rate and Rhythm, S1, S2 Respiratory: Yes: Regular, Rales Gastrointestinal: Yes: Normal Bowel Sounds, Soft Genitourinary: Yes: WNL Musculoskeletal: Yes: WNL Extremities: Yes: WNL Edema: No Peripheral Pulses WNL: Yes Integumentary: Yes: WNL Neurological: Yes: Alert, Oriented, Cran Nerves II-XII Intact ...Motor Strength: WNL Psychiatric: Yes: Alert, Oriented Labs: CBC, BMP 11/29/17 07:30 11/30/17 05:30 INR, PTT INR 1.81 (0.82-1.09) H 11/30/17 05:30 - ....Imaging X-ray: Report Reviewed, Image Reviewed Problem List - Problems (1) Acute on chronic systolic and diastolic heart failure, NYHA class 1 Assessment/Plan: HD has definitely improved his CHF and fluid overload and will require shelter HD as Cr/Bun are rising off HD. Code(s): I50.43 - ACUTE ON CHRONIC COMBINED SYSTOLIC AND DIASTOLIC HRT FAIL (2) Fluid overload Code(s): E87.70 - FLUID OVERLOAD, UNSPECIFIED Qualifiers: Hypervolemia type: unspecified Qualified Code(s): E87.70 - Fluid overload, unspecified (3) Anemia Assessment/Plan: Hb is stable with Procrit and IV iron replacement. Code(s): D64.9 - ANEMIA, UNSPECIFIED Qualifiers: Anemia type: due to chronic kidney disease Chronic kidney disease stage: stage 4 (severe) Qualified Code(s): N18.4 - Chronic kidney disease, stage 4 ( severe); D63.1 - Anemia in chronic kidney disease (4) BPH (benign prostatic hypertrophy) Code(s): N40.0 - BENIGN PROSTATIC HYPERPLASIA WITHOUT LOWER URINRY TRACT SYMP (5) Diabetes 1.5, managed as type 1 Code(s): E13.9 - OTHER SPECIFIED DIABETES MELLITUS WITHOUT COMPLICATIONS (6) Hx of heart artery stent Assessment/Plan: Denies any chest pain or SOB at rest. Unable to move around without help Code(s): Z95.5 - PRESENCE OF CORONARY ANGIOPLASTY IMPLANT AND GRAFT (7) LV (left ventricular) mural thrombus Code(s): [id number] - Assessment/Plan Imp: Acute on CKD, CHF systolic and diastolic, S/P Acute MO with stent placement DM 2 on Levemir and Novolog coverage. Anemia of chronic disease. Assessment: Will undergo placement of permacath for shelter HD, warfarin was d/ c and started on IV Heparin
[2017-11-30] MEDS: TAMSULOSIN HCL 0.4 MG CAP.ER.24H (FP) PO SCH (21:57)
[2017-11-30] MEDS: ROSUVASTATIN CA 10 MG TABLET (FP) PO SCH (21:57)
[2017-11-30] MEDS ORDERED: ESCITALOPRAM OXALATE 10 MG TABLET (FP) PO SCH (22:00)
[2017-12-01] MEDS ORDERED: EPOETIN ALFA 10,000 UNIT/1 ML VIAL IVPUSH ONE ×2 (06:00→12:15)
[2017-12-01] MEDS: INSULIN (LEVEMIR) 100 UNITS/ML UNITS SQ SCH (06:21)
[2017-12-01] MEDS ORDERED: PT OWN MED DRAWER 7, Y5N ONE ×2 (06:24→09:10)
[2017-12-01] MEDS: METOLAZONE 5 MG TABLET PO SCH (06:30)
[2017-12-01] MEDS: DOCUSATE SODIUM 100 MG CAPSULE (FP) PO SCH ×3 (06:30→23:10)
[2017-12-01] MEDS: INSULIN SLIDING SCALE (NOVOLOG) 1 VIAL SQ SCH ×3 (06:31→17:31)
[2017-12-01] MEDS: FUROSEMIDE 100 MG/10 ML INJECTABLE VIAL IVPB SCH ×2 (06:58→13:52)
[2017-12-01] MEDS: hydrALAZINE HCL 25 MG TABLET (FP) PO SCH ×2 (09:18→23:10)
[2017-12-01] MEDS: FOLIC ACID 1 MG TABLET (FP) PO SCH (09:18)
[2017-12-01] MEDS: CALCIUM ACETATE 667 MG CAPSULE (FP) PO SCH ×3 (09:18→17:26)
[2017-12-01] MEDS: ISOSORBIDE DINITRATE 20 MG TABLET (FP) PO SCH (09:18)
[2017-12-01] MEDS: CARVEDILOL 12.5 MG TABLET (FP) PO SCH ×2 (09:18→23:10)
[2017-12-01] MEDS: ASPIRIN 81 MG CHEWABLE TABLETS PO SCH (09:18)
[2017-12-01] MEDS: ALLOPURINOL 100 MG TABLET (FP) PO SCH (09:23)
[2017-12-01] MEDS: CLOPIDOGREL BISULFATE 75 MG TABLET (FP) PO SCH (09:23)
[2017-12-01] MEDS ORDERED: IRON SUCROSE INJECTION 100 MG in SODIUM CHLORIDE 95 ML IVPB ONE ×2 (10:00→12:30)
[2017-12-01] MEDS ORDERED: LIDOCAINE HCL 1%, 10 MG/ML (20ML VIAL) ONE (10:04)
[2017-12-01] MEDS ORDERED: HEPARIN NA (PORCINE) 5,000 UNITS/ML 1ML VIAL ONE (10:04)
[2017-12-01] MEDS ORDERED: PROMETHAZINE HCL 25 MG/1 ML VIAL IVPUSH PRN ×2 (10:04→11:37)
[2017-12-01] MEDS ORDERED: ONDANSETRON 4 MG/2 ML VIAL IVPUSH PRN ×2 (10:04→11:37)
[2017-12-01] MEDS ORDERED: POVIDONE-IODINE OINTMENT 10% - 28.4 GM TUBE ONE (10:05)
[2017-12-01] MEDS ORDERED: PROPOFOL 20 ML ONE (10:14)
[2017-12-01] MEDS ORDERED: MIDAZOLAM HCL 2 MG/2 ML SINGLE DOSE VIAL ONE (10:14)
[2017-12-01] MEDS ORDERED: ceFAZolin SODIUM 1 GM VIAL ONE (10:15)
[2017-12-01] MEDS ORDERED: SODIUM CHLORIDE 1,000 ML IV SCH (10:15)
[2017-12-01] MEDS ORDERED: SODIUM CHLORIDE 0.9% P/F 10 ML VIAL IJ ONE (10:15)
[2017-12-01] MEDS ORDERED: ceFAZolin SODIUM 1 GM VIAL IVPB ONE (10:43)
[2017-12-01] MEDS ORDERED: LIDOCAINE HCL 1%, 10 MG/ML (20ML VIAL) INF ONE (10:50)
[2017-12-01] MEDS ORDERED: HEPARIN NA (PORCINE) 5,000 UNITS/ML 1ML VIAL SQ ONE (10:55)
[2017-12-01] MEDS ORDERED: HEPARIN NA (PORCINE) 1,000 UNITS/ML 10ML M-D VIAL SQ ONE (11:03)
--- NOTE | 2017-12-01 11:15 | OP ---
Operative Note - Note: Operative Date: 12/01/17 Pre-Operative Diagnosis: ESRD Operation: Insertion of permacath Post-Operative Diagnosis: Same as Pre-op Surgeon: Walter Huff Anesthesia: Fractional Estimated Blood Loss (mls): 20 Operative Report Dictated: Yes
[2017-12-01] MEDS ORDERED: HEPARIN NA (PORCINE) 5,000 UNITS/ML 1ML VIAL IVPUSH PRN ×5 (11:23→16:24)
[2017-12-01] MEDS ORDERED: SODIUM CHLORIDE 250 ML IV PRN ×3 (12:15→20:22)
--- NOTE | 2017-12-01 13:18 | PN ---
Progress Note, Physician History of Present Illness: Mr. Davila is a 77 yo male (b. [place]) w/ pmh of AMI in Jul of this year with subsequent 5 stents during catheterization (and prior NSTEMI a few years ago, also resulting in PCI), systolic/diastolic CHF, HTN, HLD, IDDM, and known left ventricle thrombus (currently on plavix, ASA, and coumadin) who presents following fall earlier today. Per his , who is with him, he slid out of bed and fell on to his right buttock. Did not experience any LOC or dizziness and describes this as a mechanical fall. He has had increasing falls lately and was recently evaluated for similar fall on right side 11/11/17 in [facility]. - Current Medication List Current Medications: Active Medications Albumin Human (Albumin Human 25%) 12.5 gm IVPB Q30M [facility] Stop: 12/01/17 13:31 Allopurinol (Zyloprim -) 300 mg PO DAILY [facility] Aspirin (Asa -) 81 mg PO DAILY [facility] Calcium Acetate (Phoslo -) 667 mg PO TIDCM [facility] Carvedilol (Coreg -) 12.5 mg PO BID [facility] Clopidogrel Bisulfate (Plavix -) 75 mg PO DAILY [facility] Docusate Sodium (Colace -) 100 mg PO TID [facility] Escitalopram Oxalate (Lexapro -) 5 mg PO HS [facility] Fentanyl (Sublimaze Injection -) 50 mcg IVPUSH [id number] PRN PRN Reason: PAIN-PACU ORDER X 4 DOSES ONLY Stop: 12/01/17 19:00 Folic Acid (Folic Acid -) 1 mg PO DAILY [facility] Furosemide (Lasix Injection -) 100 mg IVPB BID@0600,1400 [facility] Heparin Sodium (Porcine) (Heparin -) 1,000 unit IVPUSH PRN PRN PRN Reason: Heparin Heparin Sodium (Porcine) (Heparin -) 5,000 unit IVPUSH PRN PRN PRN Reason: Heparin Hydralazine HCl (Apresoline -) 25 mg PO BID [facility] HEPARIN SOD,PORK IN 0.45% NACL (Heparin-1/2ns 25,000 Units/500) 25,000 unit in 500 mls @ 16 mls/hr IVPB TITR [facility]; Protocol Sodium Chloride (Normal Saline -) 250 mls @ 3,000 mls/hr IV PRN PRN PRN Reason: Hypotension during Dialysis Sodium Chloride (Normal Saline -) 250 mls @ 3,000 mls/hr IV PRN PRN PRN Reason: Hypotension during Dialysis Sodium Chloride (Normal Saline -) 1,000 mls @ 42 mls/hr IV ASDIR [facility] Insulin Aspart (Novolog Vial Sliding Scale -) 1 vial SQ TIDAC [facility]; Protocol Insulin Detemir (Levemir Vial) 35 units SQ DAILY@0700 [facility] Isosorbide Dinitrate (Isordil -) 20 mg PO DAILY [facility] Metolazone (Zaroxolyn -) 10 mg PO DAILY@0530 [facility] Ondansetron HCl (Zofran Injection) 4 mg IVPUSH Q6H PRN PRN Reason: NAUSEA AND/OR VOMITING Stop: 12/02/17 11:36 Promethazine HCl (Phenergan Injection -) 12.5 mg IVPUSH Q6H PRN PRN Reason: NAUSEA-FOR RESCUE AFTER 15 MIN Stop: 12/02/17 11:36 Rosuvastatin Calcium (Crestor -) 10 mg PO HS [facility] Tamsulosin HCl (Flomax -) 0.4 mg PO HS [facility] - Objective Vital Signs: Vital Signs Temperature 96.9 F L 12/01/17 12:54 Pulse Rate 62 12/01/17 12:54 Respiratory Rate 18 12/01/17 12:54 Blood Pressure 109/64 12/01/17 12:54 O2 Sat by Pulse Oximetry (%) 99 12/01/17 12:15 Eyes: Yes: WNL, Conjunctiva Clear, EOM Intact HENT: Yes: WNL, Atraumatic, Normocephalic Neck: Yes: WNL, Supple, Trachea Midline Cardiovascular: Yes: WNL, Regular Rate and Rhythm Respiratory: Yes: WNL, Regular, CTA Bilaterally Gastrointestinal: Yes: WNL, Normal Bowel Sounds Genitourinary: Yes: WNL Musculoskeletal: Yes: WNL Extremities: Yes: WNL Edema: No Integumentary: Yes: WNL Neurological: Yes: WNL, Alert, Oriented ...Motor Strength: WNL Psychiatric: Yes: WNL Labs: CBC, BMP 11/29/17 07:30 11/30/17 05:30 INR, PTT INR 1.81 (0.82-1.09) H 11/30/17 05:30 Assessment/Plan 1. Acute on chronic systolic and diastolic heart failure NYHA class 1 2. CAD, history of NSTEMI, PCI, angina 3. HTN 4. Hypercholesterolemia 5. IDDM 6. LV apical thrombus 7. Mechanical fall 8. THEE in the setting of CKD PLAN: Continue present management per Renal service. Stable s/p permacath INR is being monitored closely. If INR less than 2.0, consider Heparin drip as a bridge. Monitor renal function and electrolytes Continue Carvedilol, Hydralazine and Isosorbide Currently on ASA and Plavix Continue Rosuvastatin Diuretics including Lasix IV and Zaroxolyn as tolerated
[2017-12-01] MEDS: SODIUM CHLORIDE 1,000 ML IV SCH (13:38)
[2017-12-01] MEDS: ALBUMIN HUMAN 25% 12.5 GM/50 ML VIAL IVPB SCH ×6 (13:38→22:05)
--- NOTE | 2017-12-01 15:28 | PN ---
Progress Note (short form) - Note Progress Note: POD #0 Patient had right chest wall permcatheter placed this morning. RN called Dr. Huff and informed him that patient was oozing from insertion site. Dr. Huff had RN place surgicel and reinforce with a pressure dressing. Oozing resolved.
[2017-12-01] MEDS ORDERED: INSULIN (NOVOLOG) ASPART 100 UNITS/ML 10ML VIAL SQ ONE (17:15)
[2017-12-01] MEDS ORDERED: BISACODYL 5 MG TABLET.DR (FP) PO ONE (17:15)
[2017-12-01] MEDS: HEPARIN SOD,PORK IN 0.45% NACL 25,000 UNIT/500 ML INFUS.BAG IVPB SCH (17:19)
[2017-12-01 19:21] LABS: HEMATOCRIT 29.9 % (35.4-49); HEMOGLOBIN 9.3 GM/dL (11.7-16.9); MCH 24.8 pg (25.7-33.7); MCHC 31.1 g/dl (32.0-35.9); MEAN CELL VOLUME 79.8 fl (80-96); MEAN PLT VOLUME 10.9 fl (7.5-11.1); PLATELET COUNT 135 K/MM3 (134-434); RBC 3.75 M/mm3 (4.00-5.60); RDW 21.8 % (11.9-15.9); WHITE BLOOD COUNT 7.3 K/mm3 (4.0-10.0)
[2017-12-01 19:41] LABS: ALBUMIN 3.1 g/dl (3.4-5.0); ANION GAP 10 (8-16); BLOOD UREA NITROGEN 103 mg/dL (7-18); CALCIUM 8.6 mg/dL (8.5-10.1); CHLORIDE 92 mmol/L (98-107); CO2 33 mmol/L (21-32); CREATININE 2.7 mg/dL (0.7-1.3); PHOSPHOROUS 4.9 mg/dL (2.5-4.9); POTASSIUM 3.5 mmol/L (3.5-5.1); SGOT/AST 18 U/L (15-37); SGPT/ALT 25 U/L (12-78); SODIUM 135 mmol/L (136-145)
[2017-12-01 19:43] LABS: ALK PHOS 120 U/L (45-117); BILIRUBIN,TOTAL 0.5 mg/dL (0.2-1.0); TOT PROT 6.8 g/dl (6.4-8.2)
[2017-12-01 19:45] LABS: GLUCOSE,RANDOM 414 mg/dL (74-106)
--- NOTE | 2017-12-01 20:20 | PN ---
Progress Note (short form) - Note Progress Note: Renal follow up for THEE and Volume overlaod Pt seen and examined in the recovery room earlier today s/p right IJ permcath placement has some bleeding at the catheter site no acute complaints no sob, chest pain Vital Signs Temperature 97.7 F 12/01/17 18:28 Pulse Rate 89 12/01/17 20:05 Respiratory Rate 18 12/01/17 20:05 Blood Pressure 139/91 12/01/17 20:05 O2 Sat by Pulse Oximetry (%) 98 12/01/17 14:00 Intake & Output 11/28/17 11/29/17 11/30/17 12/01/17 23:59 23:59 23:59 23:59 Intake Total 1130 0 75 427 Output Total 20 Balance 1130 0 75 407 Weight 77.201 kg 77.167 kg 76.022 kg NAD on NC O2 RRR + rales b/l lungs soft NT/ND trace edema in LE CBC, BMP 12/01/17 18:15 12/01/17 18:15 Current Medications Allopurinol (Zyloprim -) 300 mg PO DAILY [facility] Aspirin (Asa -) 81 mg PO DAILY [facility] Calcium Acetate (Phoslo -) 667 mg PO TIDCM [facility] Last Admin: 12/01/17 17:26 Dose: 667 mg Carvedilol (Coreg -) 12.5 mg PO BID [facility] Clopidogrel Bisulfate (Plavix -) 75 mg PO DAILY [facility] Docusate Sodium (Colace -) 100 mg PO TID [facility] Last Admin: 12/01/17 13:52 Dose: 100 mg Escitalopram Oxalate (Lexapro -) 5 mg PO HS [facility] Folic Acid (Folic Acid -) 1 mg PO DAILY [facility] Furosemide (Lasix Injection -) 100 mg IVPB BID@0600,1400 [facility] Last Admin: 12/01/17 13:52 Dose: 100 mg Heparin Sodium (Porcine) (Heparin -) 1,000 unit IVPUSH PRN PRN PRN Reason: Heparin Heparin Sodium (Porcine) (Heparin -) 5,000 unit IVPUSH PRN PRN PRN Reason: Heparin Hydralazine HCl (Apresoline -) 25 mg PO BID [facility] HEPARIN SOD,PORK IN 0.45% NACL (Heparin-1/2ns 25,000 Units/500) 25,000 unit in 500 mls @ 16 mls/hr IVPB TITR [facility]; Protocol Last Admin: 12/01/17 17:19 Dose: Not Given Sodium Chloride (Normal Saline -) 250 mls @ 3,000 mls/hr IV PRN PRN PRN Reason: Hypotension during Dialysis Sodium Chloride (Normal Saline -) 250 mls @ 3,000 mls/hr IV PRN PRN PRN Reason: Hypotension during Dialysis Sodium Chloride (Normal Saline -) 1,000 mls @ 42 mls/hr IV ASDIR [facility] Last Admin: 12/01/17 13:38 Dose: 42 mls/hr Insulin Aspart (Novolog Vial Sliding Scale -) 1 vial SQ TIDAC [facility]; Protocol Last Admin: 12/01/17 17:20 Dose: Not Given Insulin Detemir (Levemir Vial) 35 units SQ DAILY@0700 [facility] Isosorbide Dinitrate (Isordil -) 20 mg PO DAILY [facility] Metolazone (Zaroxolyn -) 10 mg PO DAILY@0530 [facility] Ondansetron HCl (Zofran Injection) 4 mg IVPUSH Q6H PRN PRN Reason: NAUSEA AND/OR VOMITING Stop: 12/02/17 11:36 Promethazine HCl (Phenergan Injection -) 12.5 mg IVPUSH Q6H PRN PRN Reason: NAUSEA-FOR RESCUE AFTER 15 MIN Stop: 12/02/17 11:36 Rosuvastatin Calcium (Crestor -) 10 mg PO HS [facility] Tamsulosin HCl (Flomax -) 0.4 mg PO HS [facility] 77 year old gentleman with PMhx of CAD s/p [place], CHF, Hypertension, IDDM, HLD, CKD , with recent THEE who presented from home with fall and found to have THEE and fluid overlaod/CHF. #THEE on CKD in setting of volume overload now ESRD with dialysis dependence #Acute CHF #Anemia #CAD s/p permcath placement for dialysis today with UF as tolerated will plan for additional dialysis with UF as needed tomorrow AMY with HD for anemia outpatient HD placement Florencio Del Cid DO
[2017-12-01] MEDS ORDERED: WARFARIN NA 5 MG TABLET (UD) PO ONE ×2 (20:34→23:15)
--- NOTE | 2017-12-01 20:38 | PN ---
Progress Note, Physician History of Present Illness: Underwent placement of permacath this AM and now undergoing HD. Denies any chest pain or SOB, Appetite improving - Current Medication List Current Medications: Active Medications Allopurinol (Zyloprim -) 300 mg PO DAILY [facility] Aspirin (Asa -) 81 mg PO DAILY [facility] Calcium Acetate (Phoslo -) 667 mg PO TIDCM [facility] Last Admin: 12/01/17 17:26 Dose: 667 mg Carvedilol (Coreg -) 12.5 mg PO BID [facility] Clopidogrel Bisulfate (Plavix -) 75 mg PO DAILY [facility] Docusate Sodium (Colace -) 100 mg PO TID [facility] Last Admin: 12/01/17 13:52 Dose: 100 mg Escitalopram Oxalate (Lexapro -) 5 mg PO HS [facility] Folic Acid (Folic Acid -) 1 mg PO DAILY [facility] Furosemide (Lasix Injection -) 100 mg IVPB BID@0600,1400 [facility] Last Admin: 12/01/17 13:52 Dose: 100 mg Heparin Sodium (Porcine) (Heparin -) 1,000 unit IVPUSH PRN PRN PRN Reason: Heparin Heparin Sodium (Porcine) (Heparin -) 5,000 unit IVPUSH PRN PRN PRN Reason: Heparin Hydralazine HCl (Apresoline -) 25 mg PO BID [facility] HEPARIN SOD,PORK IN 0.45% NACL (Heparin-1/2ns 25,000 Units/500) 25,000 unit in 500 mls @ 16 mls/hr IVPB TITR [facility]; Protocol Last Admin: 12/01/17 17:19 Dose: Not Given Sodium Chloride (Normal Saline -) 250 mls @ 3,000 mls/hr IV PRN PRN PRN Reason: Hypotension during Dialysis Sodium Chloride (Normal Saline -) 250 mls @ 3,000 mls/hr IV PRN PRN PRN Reason: Hypotension during Dialysis Sodium Chloride (Normal Saline -) 1,000 mls @ 42 mls/hr IV ASDIR [facility] Last Admin: 12/01/17 13:38 Dose: 42 mls/hr Sodium Chloride (Normal Saline -) 250 mls @ 3,000 mls/hr IV PRN PRN PRN Reason: Hypotension during Dialysis Stop: 12/02/17 20:22 Insulin Aspart (Novolog Vial Sliding Scale -) 1 vial SQ TIDAC [facility]; Protocol Last Admin: 12/01/17 17:20 Dose: Not Given Insulin Detemir (Levemir Vial) 35 units SQ DAILY@0700 [facility] Isosorbide Dinitrate (Isordil -) 20 mg PO DAILY [facility] Metolazone (Zaroxolyn -) 10 mg PO DAILY@0530 [facility] Ondansetron HCl (Zofran Injection) 4 mg IVPUSH Q6H PRN PRN Reason: NAUSEA AND/OR VOMITING Stop: 12/02/17 11:36 Promethazine HCl (Phenergan Injection -) 12.5 mg IVPUSH Q6H PRN PRN Reason: NAUSEA-FOR RESCUE AFTER 15 MIN Stop: 12/02/17 11:36 Rosuvastatin Calcium (Crestor -) 10 mg PO HS [facility] Tamsulosin HCl (Flomax -) 0.4 mg PO HS [facility] Warfarin Sodium (Coumadin -) 5 mg PO NOW ONE Stop: 12/01/17 20:35 - Objective Vital Signs: Vital Signs Temperature 97.7 F 12/01/17 18:28 Pulse Rate 89 12/01/17 20:05 Respiratory Rate 18 12/01/17 20:05 Blood Pressure 139/91 12/01/17 20:05 O2 Sat by Pulse Oximetry (%) 98 12/01/17 14:00 Constitutional: Yes: Well Nourished, No Distress, Calm Eyes: Yes: Conjunctiva Clear, EOM Intact HENT: Yes: WNL Neck: Yes: Supple Cardiovascular: Yes: Regular Rate and Rhythm, S1, S2 Respiratory: Yes: Regular, Rales Gastrointestinal: Yes: Normal Bowel Sounds, Soft Genitourinary: Yes: WNL Musculoskeletal: Yes: WNL Extremities: Yes: WNL Edema: LLE: 1+, RLE: 1+ Integumentary: Yes: WNL Neurological: Yes: Alert, Oriented ...Motor Strength: WNL Psychiatric: Yes: Alert, Oriented Labs: CBC, BMP 12/01/17 18:15 12/01/17 18:15 INR, PTT INR 1.81 (0.82-1.09) H 11/30/17 05:30 Problem List - Problems (1) Acute on chronic systolic and diastolic heart failure, NYHA class 1 Assessment/Plan: Tolerating HD well, BUN and creatinine are going down,Also marked improvement in CHF. Code(s): I50.43 - ACUTE ON CHRONIC COMBINED SYSTOLIC AND DIASTOLIC HRT FAIL (2) Fluid overload Assessment/Plan: Edema has improved but shows bilateral pulmonary rales at both bases Code(s): E87.70 - FLUID OVERLOAD, UNSPECIFIED Qualifiers: Hypervolemia type: unspecified Qualified Code(s): E87.70 - Fluid overload, unspecified (3) Anemia Assessment/Plan: Hemoglobin is stable and received second dose of Procrit Code(s): D64.9 - ANEMIA, UNSPECIFIED Qualifiers: Anemia type: due to chronic kidney disease Chronic kidney disease stage: stage 4 (severe) Qualified Code(s): N18.4 - Chronic kidney disease, stage 4 ( severe); D63.1 - Anemia in chronic kidney disease (4) BPH (benign prostatic hypertrophy) Code(s): N40.0 - BENIGN PROSTATIC HYPERPLASIA WITHOUT LOWER URINRY TRACT SYMP (5) Diabetes 1.5, managed as type 1 Code(s): E13.9 - OTHER SPECIFIED DIABETES MELLITUS WITHOUT COMPLICATIONS (6) Hx of heart artery stent Assessment/Plan: Denies any chest pain or SOB at rest.Has not been ambulating much, needs help of two persons due to generalized weakness. Code(s): Z95.5 - PRESENCE OF CORONARY ANGIOPLASTY IMPLANT AND GRAFT (7) LV (left ventricular) mural thrombus Code(s): EGP4843 - Assessment/Plan Acute on CKD CHF syst and diastolic, CAD with stents.s/p Acute LA 2 months ago. DM on Levemir and Novolog coverage, Assess: As BUN and creatinine were rising and due to CHF it was decided to proceed with permacath placement which he tolerated well and was started on HD. He has shown improvement in CHF every time he was getting HD and hopefully will cont. to improve.
[2017-12-01] MEDS: TAMSULOSIN HCL 0.4 MG CAP.ER.24H (FP) PO SCH (23:11)
[2017-12-01] MEDS: ROSUVASTATIN CA 10 MG TABLET (FP) PO SCH (23:11)
[2017-12-01] MEDS: ESCITALOPRAM OXALATE 10 MG TABLET (FP) PO SCH (23:11)
[2017-12-02] MEDS ORDERED: PT OWN MED DRAWER 7, Y5N ONE (05:38)
[2017-12-02] MEDS: DOCUSATE SODIUM 100 MG CAPSULE (FP) PO SCH ×3 (05:41→21:49)
[2017-12-02] MEDS: METOLAZONE 5 MG TABLET PO SCH (05:41)
[2017-12-02] MEDS ORDERED: INSULIN (NOVOLOG) ASPART 100 UNITS/ML 10ML VIAL ONE ×2 (06:15→11:33)
[2017-12-02] MEDS: FUROSEMIDE 100 MG/10 ML INJECTABLE VIAL IVPB SCH ×2 (06:22→16:38)
[2017-12-02] MEDS: INSULIN SLIDING SCALE (NOVOLOG) 1 VIAL SQ SCH ×3 (06:22→16:39)
[2017-12-02] MEDS: HEPARIN SOD,PORK IN 0.45% NACL 25,000 UNIT/500 ML INFUS.BAG IVPB SCH ×2 (08:30→16:38)
[2017-12-02] MEDS: INSULIN (LEVEMIR) 100 UNITS/ML UNITS SQ SCH (09:09)
[2017-12-02] MEDS: CALCIUM ACETATE 667 MG CAPSULE (FP) PO SCH ×3 (09:10→16:41)
[2017-12-02] MEDS: FOLIC ACID 1 MG TABLET (FP) PO SCH (10:55)
[2017-12-02] MEDS: hydrALAZINE HCL 25 MG TABLET (FP) PO SCH ×2 (10:56→21:50)
[2017-12-02] MEDS: ASPIRIN 81 MG CHEWABLE TABLETS PO SCH (10:56)
[2017-12-02] MEDS: ISOSORBIDE DINITRATE 20 MG TABLET (FP) PO SCH (10:56)
[2017-12-02] MEDS: CLOPIDOGREL BISULFATE 75 MG TABLET (FP) PO SCH (10:56)
[2017-12-02] MEDS: ALLOPURINOL 300 MG TABLET (FP) PO SCH (10:56)
[2017-12-02] MEDS: CARVEDILOL 12.5 MG TABLET (FP) PO SCH ×2 (10:56→21:49)
[2017-12-02] MEDS: SODIUM CHLORIDE 1,000 ML IV SCH (12:09)
--- NOTE | 2017-12-02 13:38 | PN ---
Progress Note (short form) - Note Progress Note: PULMONARY s/p permacath placement. Currently receiving HD. c/o right groin pain. Gen: NAD at rest Heart: RRR Lung: scattered rhonchi Abd: softly distended, nontender Ext: less edema CBC, BMP 12/01/17 18:15 12/01/17 20:30 Active Medications Allopurinol (Zyloprim -) 300 mg PO DAILY [facility] Last Admin: 12/02/17 10:56 Dose: 300 mg Aspirin (Asa -) 81 mg PO DAILY [facility] Last Admin: 12/02/17 10:56 Dose: 81 mg Calcium Acetate (Phoslo -) 667 mg PO TIDCM [facility] Last Admin: 12/02/17 12:08 Dose: 667 mg Carvedilol (Coreg -) 12.5 mg PO BID [facility] Last Admin: 12/02/17 10:56 Dose: 12.5 mg Clopidogrel Bisulfate (Plavix -) 75 mg PO DAILY [facility] Last Admin: 12/02/17 10:56 Dose: 75 mg Docusate Sodium (Colace -) 100 mg PO TID [facility] Last Admin: 12/02/17 05:41 Dose: Not Given Escitalopram Oxalate (Lexapro -) 5 mg PO HS [facility] Last Admin: 12/01/17 23:11 Dose: 5 mg Folic Acid (Folic Acid -) 1 mg PO DAILY [facility] Last Admin: 12/02/17 10:55 Dose: 1 mg Furosemide (Lasix Injection -) 100 mg IVPB BID@0600,1400 [facility] Last Admin: 12/02/17 06:22 Dose: 100 mg Heparin Sodium (Porcine) (Heparin -) 1,000 unit IVPUSH PRN PRN PRN Reason: Heparin Heparin Sodium (Porcine) (Heparin -) 5,000 unit IVPUSH PRN PRN PRN Reason: Heparin Hydralazine HCl (Apresoline -) 25 mg PO BID [facility] Last Admin: 12/02/17 10:56 Dose: 25 mg HEPARIN SOD,PORK IN 0.45% NACL (Heparin-1/2ns 25,000 Units/500) 25,000 unit in 500 mls @ 16 mls/hr IVPB TITR [facility]; Protocol Last Admin: 12/02/17 08:30 Dose: 800 units/hr, 16 mls/hr Sodium Chloride (Normal Saline -) 250 mls @ 3,000 mls/hr IV PRN PRN PRN Reason: Hypotension during Dialysis Sodium Chloride (Normal Saline -) 250 mls @ 3,000 mls/hr IV PRN PRN PRN Reason: Hypotension during Dialysis Sodium Chloride (Normal Saline -) 1,000 mls @ 42 mls/hr IV ASDIR [facility] Last Admin: 12/02/17 12:09 Dose: Not Given Sodium Chloride (Normal Saline -) 250 mls @ 3,000 mls/hr IV PRN PRN PRN Reason: Hypotension during Dialysis Stop: 12/02/17 20:22 Insulin Aspart (Novolog Vial Sliding Scale -) 1 vial SQ TIDAC [facility]; Protocol Last Admin: 12/02/17 12:08 Dose: 8 units Insulin Detemir (Levemir Vial) 35 units SQ DAILY@0700 [facility] Last Admin: 12/02/17 09:09 Dose: 35 units Isosorbide Dinitrate (Isordil -) 20 mg PO DAILY [facility] Last Admin: 12/02/17 10:56 Dose: 20 mg Metolazone (Zaroxolyn -) 10 mg PO DAILY@0530 [facility] Last Admin: 12/02/17 05:41 Dose: Not Given Rosuvastatin Calcium (Crestor -) 10 mg PO HS [facility] Last Admin: 12/01/17 23:11 Dose: 10 mg Tamsulosin HCl (Flomax -) 0.4 mg PO [facility] Last Admin: 12/01/17 23:11 Dose: 0.4 mg A/P Acute on Chronic Renal Failure requiring HD Acute on Chronic Systolic/Diastolic Heart Failure Volume Overload Hyponatremia CAD LV Thrombus HTN DM Hyperlipidemia - continue lasix, zaroxolyn - monitor urine output, creatinine - HD per renal with ultrafiltration - continue anticoagulation - O2 to keep Spo2 >90%
[2017-12-02 14:24] LABS: HEMATOCRIT 30.2 % (35.4-49); HEMOGLOBIN 9.2 GM/dL (11.7-16.9); MCH 24.7 pg (25.7-33.7); MCHC 30.4 g/dl (32.0-35.9); MEAN CELL VOLUME 81.3 fl (80-96); MEAN PLT VOLUME 10.8 fl (7.5-11.1); PLATELET COUNT 106 K/MM3 (134-434); RBC 3.71 M/mm3 (4.00-5.60); RDW 22.3 % (11.9-15.9)
[2017-12-02 14:40] LABS: INR 1.33 (0.82-1.09)
[2017-12-02 14:43] LABS: ACTIVATED PTT 45.4 SECONDS (26.9-34.4)
[2017-12-02 14:48] LABS: ANION GAP 8 (8-16); BLOOD UREA NITROGEN 47 mg/dL (7-18); CALCIUM 8.2 mg/dL (8.5-10.1); CHLORIDE 99 mmol/L (98-107); CO2 29 mmol/L (21-32); CREATININE 2.2 mg/dL (0.7-1.3); SODIUM 136 mmol/L (136-145)
[2017-12-02 14:56] LABS: GLUCOSE,RANDOM 416 mg/dL (74-106)
[2017-12-02 15:13] VITALS: BMI 26.9
--- NOTE | 2017-12-02 16:14 | PN ---
Progress Note, Physician Chief Complaint: Pt lying in bed; alert; anxious; denies chest pain or dyspnea; pt does not speak when asked if he is anxious or depressed, but looks away. History of Present Illness: Mr. Davila is a 77 yo male (b. [place]) w/ pmh of AMI in Jul of this year with subsequent 5 stents during catheterization (and prior NSTEMI a few years ago, also resulting in PCI), systolic/diastolic CHF, HTN, HLD, IDDM, and known left ventricle thrombus (currently on plavix, ASA, and coumadin) who presents following fall earlier today. Per his , who is with him, he slid out of bed and fell on to his right buttock. Did not experience any LOC or dizziness and describes this as a mechanical fall. He has had increasing falls lately and was recently evaluated for similar fall on right side 11/11/[address] [facility]. - Current Medication List Current Medications: Active Medications Allopurinol (Zyloprim -) 300 mg PO DAILY [facility] Last Admin: 12/02/17 10:56 Dose: 300 mg Aspirin (Asa -) 81 mg PO DAILY [facility] Last Admin: 12/02/17 10:56 Dose: 81 mg Calcium Acetate (Phoslo -) 667 mg PO TIDCM [facility] Last Admin: 12/02/17 12:08 Dose: 667 mg Carvedilol (Coreg -) 12.5 mg PO BID [facility] Last Admin: 12/02/17 10:56 Dose: 12.5 mg Clopidogrel Bisulfate (Plavix -) 75 mg PO DAILY [facility] Last Admin: 12/02/17 10:56 Dose: 75 mg Docusate Sodium (Colace -) 100 mg PO TID [facility] Last Admin: 12/02/17 05:41 Dose: Not Given Escitalopram Oxalate (Lexapro -) 5 mg PO HS [facility] Last Admin: 12/01/17 23:11 Dose: 5 mg Folic Acid (Folic Acid -) 1 mg PO DAILY [facility] Last Admin: 12/02/17 10:55 Dose: 1 mg Furosemide (Lasix Injection -) 100 mg IVPB BID@0600,1400 [facility] Last Admin: 12/02/17 06:22 Dose: 100 mg Heparin Sodium (Porcine) (Heparin -) 1,000 unit IVPUSH PRN PRN PRN Reason: Heparin Heparin Sodium (Porcine) (Heparin -) 5,000 unit IVPUSH PRN PRN PRN Reason: Heparin Hydralazine HCl (Apresoline -) 25 mg PO BID [facility] Last Admin: 12/02/17 10:56 Dose: 25 mg HEPARIN SOD,PORK IN 0.45% NACL (Heparin-1/2ns 25,000 Units/500) 25,000 unit in 500 mls @ 16 mls/hr IVPB TITR [facility]; Protocol Last Admin: 12/02/17 08:30 Dose: 800 units/hr, 16 mls/hr Sodium Chloride (Normal Saline -) 250 mls @ 3,000 mls/hr IV PRN PRN PRN Reason: Hypotension during Dialysis Sodium Chloride (Normal Saline -) 250 mls @ 3,000 mls/hr IV PRN PRN PRN Reason: Hypotension during Dialysis Sodium Chloride (Normal Saline -) 1,000 mls @ 42 mls/hr IV ASDIR [facility] Last Admin: 12/02/17 12:09 Dose: Not Given Sodium Chloride (Normal Saline -) 250 mls @ 3,000 mls/hr IV PRN PRN PRN Reason: Hypotension during Dialysis Stop: 12/02/17 20:22 Insulin Aspart (Novolog Vial Sliding Scale -) 1 vial SQ TIDAC [facility]; Protocol Last Admin: 12/02/17 12:08 Dose: 8 units Insulin Detemir (Levemir Vial) 35 units SQ DAILY@0700 [facility] Last Admin: 12/02/17 09:09 Dose: 35 units Isosorbide Dinitrate (Isordil -) 20 mg PO DAILY [facility] Last Admin: 12/02/17 10:56 Dose: 20 mg Metolazone (Zaroxolyn -) 10 mg PO DAILY@0530 [facility] Last Admin: 12/02/17 05:41 Dose: Not Given Rosuvastatin Calcium (Crestor -) 10 mg PO HS [facility] Last Admin: 12/01/17 23:11 Dose: 10 mg Tamsulosin HCl (Flomax -) 0.4 mg PO HS [facility] Last Admin: 12/01/17 23:11 Dose: 0.4 mg - Objective Vital Signs: Vital Signs Temperature 97.7 F 12/02/17 13:50 Pulse Rate 81 12/02/17 14:20 Respiratory Rate 18 12/02/17 14:20 Blood Pressure 117/68 12/02/17 14:20 O2 Sat by Pulse Oximetry (%) 97 12/02/17 10:04 Labs: CBC, BMP 12/02/17 13:40 12/02/17 13:40 INR, PTT INR 1.33 (0.82-1.09) H 12/02/17 13:40 Problem List - Problems (1) Acute on chronic systolic and diastolic heart failure, NYHA class 1 Assessment/Plan: No longer with JVD; No CHF on 12/01/17 CXR. TNI < 0.02. On carvedilol, hydralazine+isordil. Now again on furosemide IVP bid. s/p Permacath; would start ACEI if pt will be on permanent hemodialysis. F/u BUN/Cr, electrolytes, Is and Os, daily weight. Code(s): I50.43 - ACUTE ON CHRONIC COMBINED SYSTOLIC AND DIASTOLIC HRT FAIL (2) Fall Assessment/Plan: Large right LE hip hematoma. Pt has had multiple falls; rhabdomyolysis may have occurred, further compromising pt's renal function. CK now 137. Hb 8.3. Code(s): W19.XXXA - UNSPECIFIED FALL, INITIAL ENCOUNTER Qualifiers: Encounter type: initial encounter Qualified Code(s): W19.XXXA - Unspecified fall, initial encounter (3) Fluid overload Code(s): E87.70 - FLUID OVERLOAD, UNSPECIFIED Qualifiers: Hypervolemia type: unspecified Qualified Code(s): E87.70 - Fluid overload, unspecified (4) Hyponatremia Assessment/Plan: Correction per commutator tester; presently on IV furosemide; now with normal Na level. Regarding other electrolytes: Keep K 4-4.5 Mg 2-2.3 PO4 2.5-3.5 Code(s): E87.1 - HYPO-OSMOLALITY AND HYPONATREMIA (5) Anemia Code(s): D64.9 - ANEMIA, UNSPECIFIED Qualifiers: Anemia type: due to chronic kidney disease Chronic kidney disease stage: stage 4 (severe) Qualified Code(s): N18.4 - Chronic kidney disease, stage 4 ( severe); D63.1 - Anemia in chronic kidney disease (6) Anxiety and depression Assessment/Plan: Pt is reticent. Consider psychiatric f/u. Code(s): F41.8 - OTHER SPECIFIED ANXIETY DISORDERS (7) BPH (benign prostatic hypertrophy) Code(s): N40.0 - BENIGN PROSTATIC HYPERPLASIA WITHOUT LOWER URINRY TRACT SYMP (8) CVA (cerebral infarction) Assessment/Plan: Physical rehabilitation. Code(s): I63.9 - CEREBRAL INFARCTION, UNSPECIFIED Qualifiers: Cerebral infarction mechanism: unspecified mechanism Qualified Code(s): I63.9 - Cerebral infarction, unspecified (9) Diabetes mellitus Assessment/Plan: Glucose remains elevated; adjust medications accordingly. Code(s): E11.9 - TYPE 2 DIABETES MELLITUS WITHOUT COMPLICATIONS Qualifiers: Diabetes mellitus type: type 2 Diabetes mellitus complication status: with ophthalmic complications Diabetes mellitus complication detail: with diabetic retinopathy (10) HTN (hypertension) Code(s): I10 - ESSENTIAL (PRIMARY) HYPERTENSION (11) Hx of heart artery stent Assessment/Plan: s/p [place] x 2; five coronary stents placed 07/2017 at [facility]. Continue dual antiplatetlet Rx. Pt is also on warfarin for apical thrombus (INR presently subtherapeutic); follow stool quaiac, Hb closely in view of the higher risk of bleed while on this "triple therapy". Aggressive control of lipids (on statin; would increase dose) while simultaneously following LFTs, which have normalized. Code(s): Z95.5 - PRESENCE OF CORONARY ANGIOPLASTY IMPLANT AND GRAFT (12) LV (left ventricular) mural thrombus Assessment/Plan: On warfarin; restart (with IV heparin as bridge) now that Permacath placed. Code(s): [id number] - (13) Renal dysfunction Assessment/Plan: For hemodialysis "permanently". Code(s): N28.9 - DISORDER OF KIDNEY AND URETER, UNSPECIFIED (14) Status post myocardial infarction Code(s): I25.2 - OLD MYOCARDIAL INFARCTION (15) Syncope Code(s): R55 - SYNCOPE AND COLLAPSE (16) Sleep apnea Code(s): G47.30 - SLEEP APNEA, UNSPECIFIED (17) Hyperlipidemia Code(s): E78.5 - HYPERLIPIDEMIA, UNSPECIFIED Qualifiers: Hyperlipidemia type: pure hypercholesterolemia Qualified Code(s): E78.00 - Pure hypercholesterolemia, unspecified; E78.0 - Pure hypercholesterolemia
--- NOTE | 2017-12-02 17:37 | PN ---
Progress Note (short form) - Note Progress Note: Renal follow up for THEE and Volume overlaod Pt seen and examined at the bedside awake and alert no acute complaints no sob, chest pain Vital Signs Temperature 97.7 F 12/02/17 13:50 Pulse Rate 82 12/02/17 15:50 Respiratory Rate 18 12/02/17 15:50 Blood Pressure 118/70 12/02/17 15:50 O2 Sat by Pulse Oximetry (%) 97 12/02/17 10:04 Intake & Output 11/29/17 11/30/17 12/01/17 12/02/17 23:59 23:59 23:59 23:59 Intake Total 0 75 687 Output Total 20 2 Balance 0 75 667 -2 Weight 77.201 kg 77.167 kg 76.022 kg NAD on NC O2 RRR + rales b/l lungs soft NT/ND trace edema in LE CBC, BMP 12/02/17 13:40 12/02/17 13:40 Current Medications Allopurinol (Zyloprim -) 300 mg PO DAILY [facility] Last Admin: 12/02/17 10:56 Dose: 300 mg Aspirin (Asa -) 81 mg PO DAILY [facility] Last Admin: 12/02/17 10:56 Dose: 81 mg Calcium Acetate (Phoslo -) 667 mg PO TIDCM [facility] Last Admin: 12/02/17 16:41 Dose: 667 mg Carvedilol (Coreg -) 12.5 mg PO BID [facility] Last Admin: 12/02/17 10:56 Dose: 12.5 mg Clopidogrel Bisulfate (Plavix -) 75 mg PO DAILY [facility] Last Admin: 12/02/17 10:56 Dose: 75 mg Docusate Sodium (Colace -) 100 mg PO TID [facility] Last Admin: 12/02/17 16:38 Dose: 100 mg Escitalopram Oxalate (Lexapro -) 5 mg PO HS [facility] Last Admin: 12/01/17 23:11 Dose: 5 mg Folic Acid (Folic Acid -) 1 mg PO DAILY [facility] Last Admin: 12/02/17 10:55 Dose: 1 mg Furosemide (Lasix Injection -) 100 mg IVPB BID@0600,1400 [facility] Last Admin: 12/02/17 16:38 Dose: 100 mg Heparin Sodium (Porcine) (Heparin -) 1,000 unit IVPUSH PRN PRN PRN Reason: Heparin Last Admin: 12/02/17 15:30 Dose: 1,000 unit Heparin Sodium (Porcine) (Heparin -) 5,000 unit IVPUSH PRN PRN PRN Reason: Heparin Hydralazine HCl (Apresoline -) 25 mg PO BID [facility] Last Admin: 12/02/17 10:56 Dose: 25 mg HEPARIN SOD,PORK IN 0.45% NACL (Heparin-1/2ns 25,000 Units/500) 25,000 unit in 500 mls @ 16 mls/hr IVPB TITR [facility]; Protocol Last Admin: 12/02/17 16:38 Dose: Not Given Sodium Chloride (Normal Saline -) 250 mls @ 3,000 mls/hr IV PRN PRN PRN Reason: Hypotension during Dialysis Sodium Chloride (Normal Saline -) 250 mls @ 3,000 mls/hr IV PRN PRN PRN Reason: Hypotension during Dialysis Sodium Chloride (Normal Saline -) 1,000 mls @ 42 mls/hr IV ASDIR [facility] Last Admin: 12/02/17 12:09 Dose: Not Given Sodium Chloride (Normal Saline -) 250 mls @ 3,000 mls/hr IV PRN PRN PRN Reason: Hypotension during Dialysis Stop: 12/02/17 20:22 Insulin Aspart (Novolog Vial Sliding Scale -) 1 vial SQ TIDAC [facility]; Protocol Last Admin: 12/02/17 16:39 Dose: 2 units Insulin Detemir (Levemir Vial) 35 units SQ DAILY@0700 [facility] Last Admin: 12/02/17 09:09 Dose: 35 units Isosorbide Dinitrate (Isordil -) 20 mg PO DAILY [facility] Last Admin: 12/02/17 10:56 Dose: 20 mg Metolazone (Zaroxolyn -) 10 mg PO DAILY@0530 [facility] Last Admin: 12/02/17 05:41 Dose: Not Given Rosuvastatin Calcium (Crestor -) 10 mg PO HS [facility] Last Admin: 12/01/17 23:11 Dose: 10 mg Tamsulosin HCl (Flomax -) 0.4 mg PO HS [facility] Last Admin: 12/01/17 23:11 Dose: 0.4 mg Warfarin Sodium (Coumadin -) 5 mg PO NOW ONE Stop: 12/02/17 18:01 77 year old gentleman with PMhx of CAD s/p RI, CHF, Hypertension, IDDM, HLD, CKD , with recent THEE who presented from home with fall and found to have THEE and fluid overlaod/CHF. #THEE on CKD in setting of volume overload now ESRD with dialysis dependence #Acute CHF #Anemia #CAD tolerating dialysis well outpatient dialysis arranged awaiting theraputic INR vascular follow up Florencio Del Cid DO
[2017-12-02] MEDS ORDERED: WARFARIN NA 5 MG TABLET (UD) PO ONE (18:00)
--- NOTE | 2017-12-02 21:08 | PN ---
Progress Note, Physician History of Present Illness: Denies any chest pain,SOB, PND, palpitations. Known case of Sys/diast CHF, DM2, HTN ,acute on CKD, s/p acute GA with placement of five stents, on coumadin for left ventricular thrombus and on Plavix and Aspirin because of stents.Has anemia of chronic disease and with some component of iron deficiency due to past GI bleed. - Current Medication List Current Medications: Active Medications Allopurinol (Zyloprim -) 300 mg PO DAILY [facility] Last Admin: 12/02/17 10:56 Dose: 300 mg Aspirin (Asa -) 81 mg PO DAILY [facility] Last Admin: 12/02/17 10:56 Dose: 81 mg Calcium Acetate (Phoslo -) 667 mg PO TIDCM [facility] Last Admin: 12/02/17 16:41 Dose: 667 mg Carvedilol (Coreg -) 12.5 mg PO BID [facility] Last Admin: 12/02/17 10:56 Dose: 12.5 mg Clopidogrel Bisulfate (Plavix -) 75 mg PO DAILY [facility] Last Admin: 12/02/17 10:56 Dose: 75 mg Docusate Sodium (Colace -) 100 mg PO TID [facility] Last Admin: 12/02/17 16:38 Dose: 100 mg Escitalopram Oxalate (Lexapro -) 5 mg PO HS [facility] Last Admin: 12/01/17 23:11 Dose: 5 mg Folic Acid (Folic Acid -) 1 mg PO DAILY [facility] Last Admin: 12/02/17 10:55 Dose: 1 mg Furosemide (Lasix Injection -) 100 mg IVPB BID@0600,1400 [facility] Last Admin: 12/02/17 16:38 Dose: 100 mg Hydralazine HCl (Apresoline -) 25 mg PO BID [facility] Last Admin: 12/02/17 10:56 Dose: 25 mg Sodium Chloride (Normal Saline -) 250 mls @ 3,000 mls/hr IV PRN PRN PRN Reason: Hypotension during Dialysis Sodium Chloride (Normal Saline -) 250 mls @ 3,000 mls/hr IV PRN PRN PRN Reason: Hypotension during Dialysis Sodium Chloride (Normal Saline -) 1,000 mls @ 42 mls/hr IV ASDIR [facility] Last Admin: 12/02/17 12:09 Dose: Not Given Insulin Aspart (Novolog Vial Sliding Scale -) 1 vial SQ TIDAC [facility]; Protocol Last Admin: 12/02/17 16:39 Dose: 2 units Insulin Detemir (Levemir Vial) 35 units SQ DAILY@0700 [facility] Last Admin: 12/02/17 09:09 Dose: 35 units Isosorbide Dinitrate (Isordil -) 20 mg PO DAILY [facility] Last Admin: 12/02/17 10:56 Dose: 20 mg Metolazone (Zaroxolyn -) 10 mg PO DAILY@0530 [facility] Last Admin: 12/02/17 05:41 Dose: Not Given Rosuvastatin Calcium (Crestor -) 10 mg PO [facility] Last Admin: 12/01/17 23:11 Dose: 10 mg Tamsulosin HCl (Flomax -) 0.4 mg PO [facility] Last Admin: 12/01/17 23:11 Dose: 0.4 mg - Objective Vital Signs: Vital Signs Temperature 98.3 F 12/02/17 18:00 Pulse Rate 82 12/02/17 18:00 Respiratory Rate 20 12/02/17 18:00 Blood Pressure 128/77 12/02/17 18:00 O2 Sat by Pulse Oximetry (%) 97 12/02/17 10:04 Constitutional: Yes: Well Nourished, No Distress, Calm Eyes: Yes: Conjunctiva Clear HENT: Yes: WNL Neck: Yes: Supple Cardiovascular: Yes: Regular Rate and Rhythm, S1, S2 Respiratory: Yes: Regular, Rales Gastrointestinal: Yes: Normal Bowel Sounds, Soft Genitourinary: Yes: WNL Musculoskeletal: Yes: WNL Extremities: Yes: WNL Edema: No Peripheral Pulses WNL: Yes Integumentary: Yes: WNL Neurological: Yes: Alert, Oriented ...Motor Strength: WNL Psychiatric: Yes: Alert, Oriented Labs: CBC, BMP 12/02/17 13:40 12/02/17 13:40 INR, PTT INR 1.33 (0.82-1.09) H 12/02/17 13:40 - ....Imaging X-ray: Report Reviewed, Image Reviewed Problem List - Problems (1) Acute on chronic systolic and diastolic heart failure, NYHA class 1 Assessment/Plan: Undergoing HD and has definitely been improving with less edema and pulmonary congestion Code(s): I50.43 - ACUTE ON CHRONIC COMBINED SYSTOLIC AND DIASTOLIC HRT FAIL (2) Fluid overload Code(s): E87.70 - FLUID OVERLOAD, UNSPECIFIED Qualifiers: Hypervolemia type: unspecified Qualified Code(s): E87.70 - Fluid overload, unspecified (3) Anemia Assessment/Plan: Anemia is stable with HB of 9.2Gm% Code(s): D64.9 - ANEMIA, UNSPECIFIED Qualifiers: Anemia type: due to chronic kidney disease Chronic kidney disease stage: stage 4 (severe) Qualified Code(s): N18.4 - Chronic kidney disease, stage 4 ( severe); D63.1 - Anemia in chronic kidney disease (4) BPH (benign prostatic hypertrophy) Code(s): N40.0 - BENIGN PROSTATIC HYPERPLASIA WITHOUT LOWER URINRY TRACT SYMP (5) Diabetes 1.5, managed as type 1 Code(s): E13.9 - OTHER SPECIFIED DIABETES MELLITUS WITHOUT COMPLICATIONS (6) Hx of heart artery stent Assessment/Plan: Continues to be in CHF but improving without any chest pain or SOB Code(s): Z95.5 - PRESENCE OF CORONARY ANGIOPLASTY IMPLANT AND GRAFT (7) LV (left ventricular) mural thrombus Code(s): [id number] - Assessment/Plan IMP:Acute on CKD, Syst/diast CHF DM 2 on Insulin Anemia of chronic disease, CAD s/p acute GA with five stents Assess: Has been undergoing HD after placement of permacath and has been improving with less fluid overload. CHF is also improving
[2017-12-02] MEDS: ESCITALOPRAM OXALATE 10 MG TABLET (FP) PO SCH (21:49)
[2017-12-02] MEDS: ROSUVASTATIN CA 10 MG TABLET (FP) PO SCH (21:49)
[2017-12-02] MEDS: TAMSULOSIN HCL 0.4 MG CAP.ER.24H (FP) PO SCH (21:49)
[2017-12-03] MEDS ORDERED: PT OWN MED DRAWER 7, Y5N ONE (05:37)
[2017-12-03] MEDS: METOLAZONE 5 MG TABLET PO SCH (05:44)
[2017-12-03] MEDS: DOCUSATE SODIUM 100 MG CAPSULE (FP) PO SCH ×3 (05:44→22:29)
[2017-12-03] MEDS ORDERED: INSULIN (NOVOLOG) ASPART 100 UNITS/ML 10ML VIAL ONE (06:04)
[2017-12-03] MEDS: FUROSEMIDE 100 MG/10 ML INJECTABLE VIAL IVPB SCH ×2 (06:15→15:05)
[2017-12-03] MEDS: INSULIN (LEVEMIR) 100 UNITS/ML UNITS SQ SCH (06:15)
[2017-12-03] MEDS: INSULIN SLIDING SCALE (NOVOLOG) 1 VIAL SQ SCH ×4 (06:15→22:29)
[2017-12-03 07:57] LABS: BASO % 1.8 % (0-2.0); EOS % 1.9 % (0-4.5); HEMATOCRIT 29.1 % (35.4-49); HEMOGLOBIN 9.2 GM/dL (11.7-16.9); MCHC 31.7 g/dl (32.0-35.9); MEAN PLT VOLUME 10.1 fl (7.5-11.1); MONO % 8.6 % (3.8-10.2); NEUT % 73.7 % (42.8-82.8); PLATELET COUNT 90 K/MM3 (134-434); RBC 3.68 M/mm3 (4.00-5.60); RDW 21.5 % (11.9-15.9); WHITE BLOOD COUNT 6.9 K/mm3 (4.0-10.0)
[2017-12-03 08:23] LABS: INR 1.44 (0.82-1.09); PROTHROMBIN TIME (PATIENT) 16.3 SEC (9.7-13.0)
[2017-12-03 08:43] LABS: ACANTHOCYTES 1+; ANISOCYTOSIS 2+; MACROCYTOSIS 1+; OVALOCYTE 1+; PLATELET ESTIMATE DECREASED
[2017-12-03] MEDS: CALCIUM ACETATE 667 MG CAPSULE (FP) PO SCH ×3 (10:03→18:42)
[2017-12-03] MEDS: ISOSORBIDE DINITRATE 20 MG TABLET (FP) PO SCH (10:03)
[2017-12-03] MEDS: ASPIRIN 81 MG CHEWABLE TABLETS PO SCH (10:03)
[2017-12-03] MEDS: hydrALAZINE HCL 25 MG TABLET (FP) PO SCH ×2 (10:03→22:29)
[2017-12-03] MEDS: FOLIC ACID 1 MG TABLET (FP) PO SCH (10:03)
[2017-12-03] MEDS: CARVEDILOL 12.5 MG TABLET (FP) PO SCH ×2 (10:03→22:28)
[2017-12-03] MEDS: ALLOPURINOL 300 MG TABLET (FP) PO SCH (10:03)
[2017-12-03] MEDS: CLOPIDOGREL BISULFATE 75 MG TABLET (FP) PO SCH (10:03)
--- NOTE | 2017-12-03 10:57 | PN ---
Progress Note, Physician History of Present Illness: Mr. Davila is a 77 yo male (b. [place]) w/ pmh of AMI in Jul of this year with subsequent 5 stents during catheterization (and prior NSTEMI a few years ago, also resulting in PCI), systolic/diastolic CHF, HTN, HLD, IDDM, and known left ventricle thrombus (currently on plavix, ASA, and coumadin) who presents following fall earlier today. Per his , who is with him, he slid out of bed and fell on to his right buttock. Did not experience any LOC or dizziness and describes this as a mechanical fall. He has had increasing falls lately and was recently evaluated for similar fall on right side 11/11/17 in [facility]. - Current Medication List Current Medications: Active Medications Allopurinol (Zyloprim -) 300 mg PO DAILY [facility] Last Admin: 12/03/17 10:03 Dose: 300 mg Aspirin (Asa -) 81 mg PO DAILY [facility] Last Admin: 12/03/17 10:03 Dose: 81 mg Calcium Acetate (Phoslo -) 667 mg PO TIDCM [facility] Last Admin: 12/03/17 10:03 Dose: 667 mg Carvedilol (Coreg -) 12.5 mg PO BID [facility] Last Admin: 12/03/17 10:03 Dose: 12.5 mg Clopidogrel Bisulfate (Plavix -) 75 mg PO DAILY [facility] Last Admin: 12/03/17 10:03 Dose: 75 mg Docusate Sodium (Colace -) 100 mg PO TID [facility] Last Admin: 12/03/17 05:44 Dose: 100 mg Escitalopram Oxalate (Lexapro -) 5 mg PO HS [facility] Last Admin: 12/02/17 21:49 Dose: 5 mg Folic Acid (Folic Acid -) 1 mg PO DAILY [facility] Last Admin: 12/03/17 10:03 Dose: 1 mg Furosemide (Lasix Injection -) 100 mg IVPB BID@0600,1400 [facility] Last Admin: 12/03/17 06:15 Dose: 100 mg Hydralazine HCl (Apresoline -) 25 mg PO BID [facility] Last Admin: 12/03/17 10:03 Dose: 25 mg Sodium Chloride (Normal Saline -) 250 mls @ 3,000 mls/hr IV PRN PRN PRN Reason: Hypotension during Dialysis Sodium Chloride (Normal Saline -) 250 mls @ 3,000 mls/hr IV PRN PRN PRN Reason: Hypotension during Dialysis Sodium Chloride (Normal Saline -) 1,000 mls @ 42 mls/hr IV ASDIR [facility] Last Admin: 12/02/17 12:09 Dose: Not Given Insulin Aspart (Novolog Vial Sliding Scale -) 1 vial SQ TIDAC [facility]; Protocol Last Admin: 12/03/17 06:15 Dose: 4 units Insulin Detemir (Levemir Vial) 35 units SQ DAILY@0700 [facility] Last Admin: 12/03/17 06:15 Dose: 35 units Isosorbide Dinitrate (Isordil -) 20 mg PO DAILY [facility] Last Admin: 12/03/17 10:03 Dose: 20 mg Metolazone (Zaroxolyn -) 10 mg PO DAILY@0530 [facility] Last Admin: 12/03/17 05:44 Dose: 10 mg Rosuvastatin Calcium (Crestor -) 10 mg PO [facility] Last Admin: 12/02/17 21:49 Dose: 10 mg Tamsulosin HCl (Flomax -) 0.4 mg PO [facility] Last Admin: 12/02/17 21:49 Dose: 0.4 mg - Objective Vital Signs: Vital Signs Temperature 98.6 F 12/03/17 06:00 Pulse Rate 73 12/03/17 06:00 Respiratory Rate 20 12/03/17 06:00 Blood Pressure 115/68 12/03/17 06:00 O2 Sat by Pulse Oximetry (%) 95 12/02/17 21:00 Eyes: Yes: WNL, Conjunctiva Clear, EOM Intact HENT: Yes: WNL, Atraumatic, Normocephalic Neck: Yes: WNL, Supple, Trachea Midline Cardiovascular: Yes: WNL, Regular Rate and Rhythm Respiratory: Yes: WNL, Regular, CTA Bilaterally Gastrointestinal: Yes: WNL, Normal Bowel Sounds Genitourinary: Yes: WNL Musculoskeletal: Yes: WNL Extremities: Yes: WNL Edema: Yes Integumentary: Yes: WNL Neurological: Yes: WNL, Alert, Oriented ...Motor Strength: WNL Psychiatric: Yes: WNL Labs: CBC, BMP 12/03/17 06:20 12/02/17 13:40 INR, PTT INR 1.44 (0.82-1.09) H 12/03/17 06:20 Assessment/Plan Problems (1) Acute on chronic systolic and diastolic heart failure, NYHA class 1 Assessment/Plan: No longer with JVD; No CHF on 12/01/17 CXR. TNI < 0.02. On carvedilol, hydralazine+isordil. Now again on furosemide IVP bid. s/p Permacath; would start ACEI if pt will be on permanent hemodialysis. F/u BUN/Cr, electrolytes, Is and Os, daily weight. Code(s): I50.43 - ACUTE ON CHRONIC COMBINED SYSTOLIC AND DIASTOLIC HRT FAIL (2) Fall Assessment/Plan: Large right LE hip hematoma. Pt has had multiple falls; rhabdomyolysis may have occurred, further compromising pt's renal function. CK now 137. Hb 8.3. Code(s): W19.XXXA - UNSPECIFIED FALL, INITIAL ENCOUNTER Qualifiers: Encounter type: initial encounter Qualified Code(s): W19.XXXA - Unspecified fall, initial encounter (3) Fluid overload Code(s): E87.70 - FLUID OVERLOAD, UNSPECIFIED Qualifiers: Hypervolemia type: unspecified Qualified Code(s): E87.70 - Fluid overload, unspecified (4) Hyponatremia Assessment/Plan: Correction per cma or lpn; presently on IV furosemide; now with normal Na level. Regarding other electrolytes: Keep K 4-4.5 Mg 2-2.3 PO4 2.5-3.5 Code(s): E87.1 - HYPO-OSMOLALITY AND HYPONATREMIA (5) Anemia Code(s): D64.9 - ANEMIA, UNSPECIFIED Qualifiers: Anemia type: due to chronic kidney disease Chronic kidney disease stage: stage 4 (severe) Qualified Code(s): N18.4 - Chronic kidney disease, stage 4 ( severe); D63.1 - Anemia in chronic kidney disease (6) Anxiety and depression Assessment/Plan: Pt is reticent. Consider psychiatric f/u. Code(s): F41.8 - OTHER SPECIFIED ANXIETY DISORDERS (7) BPH (benign prostatic hypertrophy) Code(s): N40.0 - BENIGN PROSTATIC HYPERPLASIA WITHOUT LOWER URINRY TRACT SYMP (8) CVA (cerebral infarction) Assessment/Plan: Physical rehabilitation. Code(s): I63.9 - CEREBRAL INFARCTION, UNSPECIFIED Qualifiers: Cerebral infarction mechanism: unspecified mechanism Qualified Code(s): I63.9 - Cerebral infarction, unspecified (9) Diabetes mellitus Assessment/Plan: Glucose remains elevated; adjust medications accordingly. Code(s): E11.9 - TYPE 2 DIABETES MELLITUS WITHOUT COMPLICATIONS Qualifiers: Diabetes mellitus type: type 2 Diabetes mellitus complication status: with ophthalmic complications Diabetes mellitus complication detail: with diabetic retinopathy (10) HTN (hypertension) Code(s): I10 - ESSENTIAL (PRIMARY) HYPERTENSION (11) Hx of heart artery stent Assessment/Plan: s/p [place] x 2; five coronary stents placed 07/2017 at [facility]. Continue dual antiplatetlet Rx. Pt is also on warfarin for apical thrombus (INR presently subtherapeutic); follow stool quaiac, Hb closely in view of the higher risk of bleed while on this "triple therapy". Aggressive control of lipids (on statin; would increase dose) while simultaneously following LFTs, which have normalized. Code(s): Z95.5 - PRESENCE OF CORONARY ANGIOPLASTY IMPLANT AND GRAFT (12) LV (left ventricular) mural thrombus Assessment/Plan: On warfarin; restart (with IV heparin as bridge) now that Permacath placed. Code(s): [id number] - (13) Renal dysfunction Assessment/Plan: For hemodialysis "permanently". Code(s): N28.9 - DISORDER OF KIDNEY AND URETER, UNSPECIFIED (14) Status post myocardial infarction Code(s): I25.2 - OLD MYOCARDIAL INFARCTION (15) Syncope Code(s): R55 - SYNCOPE AND COLLAPSE (16) Sleep apnea Code(s): G47.30 - SLEEP APNEA, UNSPECIFIED (17) Hyperlipidemia Code(s): E78.5 - HYPERLIPIDEMIA, UNSPECIFIED Qualifiers: Hyperlipidemia type: pure hypercholesterolemia Qualified Code(s): E78.00 - Pure hypercholesterolemia, unspecified; E78.0 - Pure hypercholesterolemia
--- NOTE | 2017-12-03 11:10 | OP ---
DATE OF OPERATION: 12/01/2017 PREOPERATIVE DIAGNOSIS: End-stage renal disease. POSTOPERATIVE DIAGNOSIS: End-stage renal disease. PROCEDURE: Insertion of PermCath. SURGEON: Walter Fernandez DO ANESTHESIA: Fractional. BLOOD LOSS: 20 mL. INDICATIONS: The patient is a 72-year-old male who comes in in acute renal failure. He had a neck Shiley placed which is now removed and now needs temporary dialysis catheter placement. The patient was consented for the procedure, understanding all risks, benefits, and alternatives. DESCRIPTION OF PROCEDURE: He was then taken to the operating room. Once in the operative suite, he was placed on the operating table in supine manner. The area of the right neck and chest was prepped and draped in sterile surgical manner. We then went ahead and injected 10 mL of lidocaine 1% over the right internal jugular under ultrasound guidance. We then took our Micropuncture needle and punctured the right internal jugular vein under ultrasound guidance. Micropuncture wire was inserted. Micropuncture sheath was inserted. A 0.043 floppy guidewire was then inserted under fluoroscopy. We then injected 10 mL of lidocaine 1% above and below the clavicle. We then took a No. 11-blade and made a 1-cm incision at the puncture site. We then took a 15-blade and made a 1-cm incision below the clavicle. We then tunneled the PermCath up to the puncture site. We then placed our breakaway sheath over the guidewire into the vein under fluoroscopy, and the cannula and guidewire were removed. The catheter was then placed into the sheath, sheath was broken away as the catheter was placed inside the vein. The neck of the catheter was nice and smooth. The tip of the catheter was located outside the right atrium. We then mira back on each port of the catheter and there was good flow. Heparinized saline was injected, 2000 units of IV heparin was injected into each port. Biosyn 4-0 was used, then 2 simple stitches were placed at the puncture site. Nylon 3-0 was used on the catheter to attach it to the skin. Biopatch, Steri-Strips, 4x4, and Tegaderms were placed. The patient tolerated the procedure with no complication. Total blood loss 20 mL. The patient was transferred to the PACU in stable condition where a chest x-ray will be ordered. WALTER FERNANDEZ DO PIPE WRAPPING MACHINE OPERATOR/[id number]
[2017-12-03 11:34] LABS: ANION GAP 7 (8-16); BLOOD UREA NITROGEN 27 mg/dL (7-18); CALCIUM 8.6 mg/dL (8.5-10.1); CHLORIDE 102 mmol/L (98-107); CO2 29 mmol/L (21-32); GLUCOSE,RANDOM 248 mg/dL (74-106); POTASSIUM 4.1 mmol/L (3.5-5.1); SODIUM 138 mmol/L (136-145)
--- NOTE | 2017-12-03 12:09 | PN ---
Progress Note, Physician History of Present Illness: pulmonary alert,feeling better,oob-chair,-resp distress - Current Medication List Current Medications: Active Medications Allopurinol (Zyloprim -) 300 mg PO DAILY [facility] Last Admin: 12/03/17 10:03 Dose: 300 mg Aspirin (Asa -) 81 mg PO DAILY [facility] Last Admin: 12/03/17 10:03 Dose: 81 mg Calcium Acetate (Phoslo -) 667 mg PO TIDCM [facility] Last Admin: 12/03/17 10:03 Dose: 667 mg Carvedilol (Coreg -) 12.5 mg PO BID [facility] Last Admin: 12/03/17 10:03 Dose: 12.5 mg Clopidogrel Bisulfate (Plavix -) 75 mg PO DAILY [facility] Last Admin: 12/03/17 10:03 Dose: 75 mg Docusate Sodium (Colace -) 100 mg PO TID [facility] Last Admin: 12/03/17 05:44 Dose: 100 mg Escitalopram Oxalate (Lexapro -) 5 mg PO HS [facility] Last Admin: 12/02/17 21:49 Dose: 5 mg Folic Acid (Folic Acid -) 1 mg PO DAILY [facility] Last Admin: 12/03/17 10:03 Dose: 1 mg Furosemide (Lasix Injection -) 100 mg IVPB BID@0600,1400 [facility] Last Admin: 12/03/17 06:15 Dose: 100 mg Hydralazine HCl (Apresoline -) 25 mg PO BID [facility] Last Admin: 12/03/17 10:03 Dose: 25 mg Sodium Chloride (Normal Saline -) 250 mls @ 3,000 mls/hr IV PRN PRN PRN Reason: Hypotension during Dialysis Sodium Chloride (Normal Saline -) 250 mls @ 3,000 mls/hr IV PRN PRN PRN Reason: Hypotension during Dialysis Sodium Chloride (Normal Saline -) 1,000 mls @ 42 mls/hr IV ASDIR [facility] Last Admin: 12/02/17 12:09 Dose: Not Given Insulin Aspart (Novolog Vial Sliding Scale -) 1 vial SQ TIDAC [facility]; Protocol Last Admin: 12/03/17 06:15 Dose: 4 units Insulin Aspart (Novolog Vial) 18 units SQ ONCE ONE Stop: 12/03/17 12:16 Insulin Detemir (Levemir Vial) 35 units SQ DAILY@0700 [facility] Last Admin: 12/03/17 06:15 Dose: 35 units Isosorbide Dinitrate (Isordil -) 20 mg PO DAILY [facility] Last Admin: 12/03/17 10:03 Dose: 20 mg Metolazone (Zaroxolyn -) 10 mg PO DAILY@0530 [facility] Last Admin: 12/03/17 05:44 Dose: 10 mg Rosuvastatin Calcium (Crestor -) 10 mg PO [facility] Last Admin: 12/02/17 21:49 Dose: 10 mg Tamsulosin HCl (Flomax -) 0.4 mg PO [facility] Last Admin: 12/02/17 21:49 Dose: 0.4 mg Warfarin Sodium (Coumadin -) 6 mg PO ONCE@1800 ONE Stop: 12/03/17 18:01 - Objective Vital Signs: Vital Signs Temperature 98.6 F 12/03/17 06:00 Pulse Rate 73 12/03/17 06:00 Respiratory Rate 20 12/03/17 06:00 Blood Pressure 115/68 12/03/17 06:00 O2 Sat by Pulse Oximetry (%) 95 12/02/17 21:00 Constitutional: Yes: Well Nourished, Calm Eyes: Yes: WNL HENT: Yes: WNL Neck: Yes: WNL Cardiovascular: Yes: Regular Rate and Rhythm, S1 Respiratory: Yes: Rales (bilateral crackles 1/4/up) Gastrointestinal: Yes: Normal Bowel Sounds, Soft Extremities: Yes: WNL Edema: No Labs: CBC, BMP 12/03/17 06:20 12/03/17 06:20 INR, PTT INR 1.44 (0.82-1.09) H 12/03/17 06:20 Assessment/Plan ASSESSMENT AND PLAN: Acute on Chronic Renal Failure requiring HD Acute on Chronic Systolic/Diastolic Heart Failure improving Volume Overload Hyponatremia CAD LV Thrombus HTN DM Hyperlipidemia - HD Per Renal - Lasix - monitor urine output, creatinine - monitor lytes - Anticoagulation - O2 to keep Spo2 >90% DR CARCAMO Problem List - Problems (1) Fall Code(s): W19.XXXA - UNSPECIFIED FALL, INITIAL ENCOUNTER Qualifiers: Encounter type: initial encounter Qualified Code(s): W19.XXXA - Unspecified fall, initial encounter (2) Fluid overload Code(s): E87.70 - FLUID OVERLOAD, UNSPECIFIED Qualifiers: Hypervolemia type: unspecified Qualified Code(s): E87.70 - Fluid overload, unspecified (3) Hyponatremia Code(s): E87.1 - HYPO-OSMOLALITY AND HYPONATREMIA (4) Acute on chronic systolic CHF (congestive heart failure) Code(s): I50.23 - ACUTE ON CHRONIC SYSTOLIC (CONGESTIVE) HEART FAILURE (5) Acute renal failure Code(s): N17.9 - ACUTE KIDNEY FAILURE, UNSPECIFIED (6) Anemia Code(s): D64.9 - ANEMIA, UNSPECIFIED Qualifiers: Anemia type: due to chronic kidney disease Chronic kidney disease stage: stage 4 (severe) Qualified Code(s): N18.4 - Chronic kidney disease, stage 4 ( severe); D63.1 - Anemia in chronic kidney disease (7) BPH (benign prostatic hypertrophy) Code(s): N40.0 - BENIGN PROSTATIC HYPERPLASIA WITHOUT LOWER URINRY TRACT SYMP (8) Chronic renal disease Code(s): N18.9 - CHRONIC KIDNEY DISEASE, UNSPECIFIED Qualifiers: Chronic kidney disease stage: stage 4 (severe) Qualified Code(s): N18.4 - Chronic kidney disease, stage 4 (severe) (9) Diabetes mellitus Code(s): E11.9 - TYPE 2 DIABETES MELLITUS WITHOUT COMPLICATIONS Qualifiers: Diabetes mellitus complication status: with ophthalmic complications Diabetes mellitus complication detail: with diabetic retinopathy (10) HTN (hypertension) Code(s): I10 - ESSENTIAL (PRIMARY) HYPERTENSION (11) Hx of heart artery stent Code(s): Z95.5 - PRESENCE OF CORONARY ANGIOPLASTY IMPLANT AND GRAFT
[2017-12-03] MEDS ORDERED: INSULIN (NOVOLOG) ASPART 100 UNITS/ML 10ML VIAL SQ ONE (12:15)
[2017-12-03] MEDS: SODIUM CHLORIDE 1,000 ML IV SCH (13:11)
[2017-12-03] MEDS ORDERED: HEPARIN NA (PORCINE) 5,000 UNITS/ML 1ML VIAL IVPUSH PRN ×4 (14:14→14:32)
[2017-12-03] MEDS ORDERED: HEPARIN - 25,000 UNIT in SODIUM CHLORIDE 495 ML IV SCH (14:15)
[2017-12-03] MEDS ORDERED: HEPARIN NA (PORCINE) 5,000 UNITS/ML 1ML VIAL IVPUSH ONE (14:32)
--- NOTE | 2017-12-03 15:34 | PN ---
Progress Note (short form) - Note Progress Note: Renal follow up for THEE and Volume overlaod Pt seen and examined at the bedside no acute complaints off heparin gtt s/p dialysis yesterday Vital Signs Temperature 98.4 F 12/03/17 11:00 Pulse Rate 77 12/03/17 11:00 Respiratory Rate 20 12/03/17 11:00 Blood Pressure 131/71 12/03/17 11:00 O2 Sat by Pulse Oximetry (%) 95 12/03/17 11:00 Intake & Output 11/30/17 12/01/17 12/02/17 12/03/17 23:59 23:59 23:59 23:59 Intake Total 75 203 870 4448 Output Total 20 2 Balance 75 101 820 2851 Weight 77.167 kg 76.022 kg 73.255 kg NAD on NC O2 RRR + rales b/l lungs soft NT/ND trace edema in LE CBC, BMP 12/03/17 06:20 12/03/17 12:16 Current Medications Allopurinol (Zyloprim -) 300 mg PO DAILY [facility] Last Admin: 12/03/17 10:03 Dose: 300 mg Aspirin (Asa -) 81 mg PO DAILY [facility] Last Admin: 12/03/17 10:03 Dose: 81 mg Calcium Acetate (Phoslo -) 667 mg PO TIDCM [facility] Last Admin: 12/03/17 13:10 Dose: 667 mg Carvedilol (Coreg -) 12.5 mg PO BID [facility] Last Admin: 12/03/17 10:03 Dose: 12.5 mg Clopidogrel Bisulfate (Plavix -) 75 mg PO DAILY [facility] Last Admin: 12/03/17 10:03 Dose: 75 mg Docusate Sodium (Colace -) 100 mg PO TID [facility] Last Admin: 12/03/17 15:05 Dose: 100 mg Escitalopram Oxalate (Lexapro -) 5 mg PO HS [facility] Last Admin: 12/02/17 21:49 Dose: 5 mg Folic Acid (Folic Acid -) 1 mg PO DAILY [facility] Last Admin: 12/03/17 10:03 Dose: 1 mg Furosemide (Lasix Injection -) 100 mg IVPB BID@0600,1400 [facility] Last Admin: 12/03/17 15:05 Dose: 100 mg Heparin Sodium (Porcine) (Heparin -) 1,000 unit IVPUSH PRN PRN PRN Reason: Heparin Heparin Sodium (Porcine) (Heparin -) 2,900 unit 40 unit/kg (2900 unit) IVPUSH PRN PRN PRN Reason: For aPTT 35 to 45 seconds Heparin Sodium (Porcine) (Heparin -) 5,900 unit 80 unit/kg (5900 unit) IVPUSH PRN PRN PRN Reason: aPTT <35 seconds Hydralazine HCl (Apresoline -) 25 mg PO BID [facility] Last Admin: 12/03/17 10:03 Dose: 25 mg Sodium Chloride (Normal Saline -) 250 mls @ 3,000 mls/hr IV PRN PRN PRN Reason: Hypotension during Dialysis Sodium Chloride (Normal Saline -) 250 mls @ 3,000 mls/hr IV PRN PRN PRN Reason: Hypotension during Dialysis Sodium Chloride (Normal Saline -) 1,000 mls @ 42 mls/hr IV ASDIR [facility] Last Admin: 12/03/17 13:11 Dose: 42 mls/hr Heparin Sodium (Porcine) 25, (000 unit/ Sodium Chloride) 500 mls @ 26.37 mls/ hr IV TITR [facility]; Protocol Insulin Aspart (Novolog Vial Sliding Scale -) 1 vial SQ TIDAC [facility]; Protocol Last Admin: 12/03/17 13:11 Dose: Not Given Insulin Detemir (Levemir Vial) 35 units SQ DAILY@0700 [facility] Last Admin: 12/03/17 06:15 Dose: 35 units Isosorbide Dinitrate (Isordil -) 20 mg PO DAILY [facility] Last Admin: 12/03/17 10:03 Dose: 20 mg Metolazone (Zaroxolyn -) 10 mg PO DAILY@0530 [facility] Last Admin: 12/03/17 05:44 Dose: 10 mg Rosuvastatin Calcium (Crestor -) 10 mg PO HS [facility] Last Admin: 12/02/17 21:49 Dose: 10 mg Tamsulosin HCl (Flomax -) 0.4 mg PO [facility] Last Admin: 12/02/17 21:49 Dose: 0.4 mg 77 year old gentleman with PMhx of CAD s/p DC, CHF, Hypertension, IDDM, HLD, CKD , with recent THEE who presented from home with fall and found to have THEE and fluid overlaod/CHF. #THEE on CKD in setting of volume overload now ESRD with dialysis dependence #Acute CHF #Anemia #CAD will plan for placement of AVF or AVG this admission discussed with pt and family as well as Dr. 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
[2017-12-03] MEDS: HEPARIN - 25,000 UNIT in SODIUM CHLORIDE 495 ML IV SCH (15:41)
--- NOTE | 2017-12-03 17:24 | PN ---
Progress Note (short form) - Note Progress Note: Vascular Surgery Vein mapping reviewed. Pt has a good cephalic vein in left arm. Can do avf on friday. Please hold coumadin. Walter Huff DO
[2017-12-03] MEDS ORDERED: WARFARIN NA 3 MG TABLET PO ONE (18:00)
[2017-12-03] MEDS ORDERED: WARFARIN NA 7.5 MG TABLET (FP) PO ONE ×2 (18:00→19:35)
--- NOTE | 2017-12-03 18:10 | CONSULT ---
Consult Consult Specialty:: Endocrinology Referred by:: Dr Coleman Hess Reason for Consultation:: Hyperglycemia - History of Present Illness Chief Complaint: Fall History of Present Illness: This is a 77 year old gentleman with PMhx of CAD s/p OR, CHF, Hypertension, DM on Insulin, HLD, CKD, with recent THEE who was admitted after fall at home and found to have THEE and fluid overlaod/CHF. Pt had a fall about 1 week ago and was taken to [facility] and discharged w/ no fractures. Pts Dr. Davila reports that he gained a large amount of weight subsequent to the fall despite being on his diuretics. Pt was treated with IV diuretics and then with dialysis with improvement in symptoms and decrease in edema. Pt referred for management of uncontrolled blood sugar. Blood sugar at home has been fluctuating depending on what he ate. 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 No: Addictions, Bipolar, Depression, Panic, Psychosis, Schizophrenia, Other Endocrine: Yes: Diabetes Mellitus. No: Schley's Disease, Laquita's Disease, Diabetes Insipidus, Hyperparathyroidism, Hyperthyroidism, Hypothyroidism, Osteopenia, SIADH, Other - Past Surgical History Past Surgical History: Yes: Stent - Alcohol/Substance Use Hx Alcohol Use: No History of Substance Use: reports: None - Smoking History Smoking history: Never smoked Have you smoked in the past 12 months: No - Social History Usual Living Arrangement: With Spouse ADL: Independent History of Recent Travel: No Home Medications - Allergies Allergies/Adverse Reactions: Allergies Allergy/AdvReac Type Severity Reaction Status Date / Time No Known Allergies Allergy Verified 04/09/16 11:14 - Home Medications Home Medications: Ambulatory Orders Clopidogrel Bisulfate [Plavix -] 75 mg PO DAILY 09/03/17 Insulin Glargine,Hum.rec.anlog [Lantus Solostar PEN -] 35 units SQ DAILY Insulin Regular [Novolin R Vial -] 0 units SQ TID 09/03/17 Rosuvastatin [Crestor -] 10 mg PO DAILY 09/03/17 Tamsulosin HCl [Flomax -] 0.4 mg PO HS 09/03/17 Calcium Acetate [Phoslo -] 667 mg PO TIDCM 30 Days #90 capsule 09/14/17 Carvedilol [Coreg -] 12.5 mg PO BID tablet 09/14/17 Folic Acid - 1 mg PO DAILY 90 Days #90 tablet 09/14/17 Insulin Sliding Scale [Novolog Vial Sliding Scale -] 1 vial SQ TIDAC units hydrALAZINE HCL [Apresoline -] 25 mg PO BID tablet 09/14/17 Allopurinol [Zyloprim -] 300 mg PO DAILY 11/21/17 Aspirin [ASA -] 81 mg PO DAILY 11/21/17 Furosemide [Lasix -] 80 mg PO BID 11/21/17 Isosorbide Dinitrate [Isordil -] 20 mg PO BID 11/21/17 Metolazone 5 mg PO DAILY 11/21/17 Warfarin Sodium [Coumadin] 2 mg PO Q2D 11/21/17 Warfarin Sodium [Coumadin] 4 mg PO Q2D 11/21/17 Review of Systems - Review of Systems Constitutional: reports: Loss of Appetite Eyes: reports: No Symptoms HENT: reports: No Symptoms Neck: reports: No Symptoms Cardiovascular: reports: No Symptoms Respiratory: reports: SOB on Exertion Gastrointestinal: reports: No Symptoms Genitourinary: reports: No Symptoms Musculoskeletal: reports: No Symptoms Neurological: reports: No Symptoms Endocrine: reports: No Symptoms Physical Exam Vital Signs: Vital Signs Temperature 98.8 F 12/03/17 14:30 Pulse Rate 78 12/03/17 14:30 Respiratory Rate 20 12/03/17 14:30 Blood Pressure 146/77 12/03/17 14:30 O2 Sat by Pulse Oximetry (%) 95 12/03/17 11:00 Constitutional: Yes: No Distress, Calm Eyes: Yes: Conjunctiva Clear, EOM Intact HENT: Yes: Atraumatic, Normocephalic Neck: Yes: Supple, Trachea Midline Cardiovascular: Yes: Regular Rate and Rhythm Respiratory: Yes: Rales Gastrointestinal: Yes: Normal Bowel Sounds, Soft Musculoskeletal: Yes: WNL Extremities: Yes: WNL Edema: Yes Neurological: Yes: Alert, Oriented Labs: CBC, BMP 12/03/17 06:20 12/03/17 12:16 Problem List - Problems (1) Acute on chronic systolic and diastolic heart failure, NYHA class 1 Code(s): I50.43 - ACUTE ON CHRONIC COMBINED SYSTOLIC AND DIASTOLIC HRT FAIL (2) Fall Code(s): W19.XXXA - UNSPECIFIED FALL, INITIAL ENCOUNTER Qualifiers: Encounter type: initial encounter Qualified Code(s): W19.XXXA - Unspecified fall, initial encounter (3) Fluid overload Code(s): E87.70 - FLUID OVERLOAD, UNSPECIFIED Qualifiers: Hypervolemia type: unspecified Qualified Code(s): E87.70 - Fluid overload, unspecified (4) Acute renal failure Code(s): N17.9 - ACUTE KIDNEY FAILURE, UNSPECIFIED (5) Diabetes mellitus Code(s): E11.9 - TYPE 2 DIABETES MELLITUS WITHOUT COMPLICATIONS Qualifiers: Diabetes mellitus type: type 2 Diabetes mellitus complication status: with ophthalmic complications Diabetes mellitus complication detail: with diabetic retinopathy Assessment/Plan A/P Acute on Chronic Renal Failure requiring HD Acute on Chronic Systolic/Diastolic Heart Failure Volume Overload DM uncontrolled CAD LV Thrombus HTN Hyperlipidemia IV diuretics IV Heparin Awaiting AV Graft/fistula Continue Levemir 35 units daily in the morning Change Novolog Coverage, to be given only once food is in the room and pt is ready to eat. Discussed with nursing staff. Will F/U
[2017-12-03] MEDS ORDERED: INSULIN SLIDING SCALE (NOVOLOG) 1 VIAL SQ SCH ×2 (18:17→18:20)
--- NOTE | 2017-12-03 20:35 | PN ---
Progress Note, Physician History of Present Illness: Denies any chest pain, SOB,PND. Appetite improving. Was able to walk in the room with help from two therapists. Has been started on IV Heparin drip and coumadin is being held in preparation for AV fistula for HD. - Current Medication List Current Medications: Active Medications Allopurinol (Zyloprim -) 300 mg PO DAILY [facility] Last Admin: 12/03/17 10:03 Dose: 300 mg Aspirin (Asa -) 81 mg PO DAILY [facility] Last Admin: 12/03/17 10:03 Dose: 81 mg Calcium Acetate (Phoslo -) 667 mg PO TIDCM [facility] Last Admin: 12/03/17 18:42 Dose: 667 mg Carvedilol (Coreg -) 12.5 mg PO BID [facility] Last Admin: 12/03/17 10:03 Dose: 12.5 mg Clopidogrel Bisulfate (Plavix -) 75 mg PO DAILY [facility] Last Admin: 12/03/17 10:03 Dose: 75 mg Docusate Sodium (Colace -) 100 mg PO TID [facility] Last Admin: 12/03/17 15:05 Dose: 100 mg Escitalopram Oxalate (Lexapro -) 5 mg PO HS [facility] Last Admin: 12/02/17 21:49 Dose: 5 mg Folic Acid (Folic Acid -) 1 mg PO DAILY [facility] Last Admin: 12/03/17 10:03 Dose: 1 mg Heparin Sodium (Porcine) (Heparin -) 1,000 unit IVPUSH PRN PRN PRN Reason: Heparin Heparin Sodium (Porcine) (Heparin -) 2,900 unit 40 unit/kg (2900 unit) IVPUSH PRN PRN PRN Reason: For aPTT 35 to 45 seconds Heparin Sodium (Porcine) (Heparin -) 5,900 unit 80 unit/kg (5900 unit) IVPUSH PRN PRN PRN Reason: aPTT <35 seconds Hydralazine HCl (Apresoline -) 25 mg PO BID [facility] Last Admin: 12/03/17 10:03 Dose: 25 mg Heparin Sodium (Porcine) 25, (000 unit/ Sodium Chloride) 500 mls @ 26.37 mls/ hr IV TITR [facility]; Protocol Last Admin: 12/03/17 15:41 Dose: 18 unit/kg/hr, 26.37 mls/hr Insulin Aspart (Novolog Vial Sliding Scale -) 1 vial SQ HS [facility]; Protocol Insulin Aspart (Novolog Vial Sliding Scale -) 1 vial SQ TIDCM [facility]; Protocol Insulin Detemir (Levemir Vial) 35 units SQ DAILY@0800 [facility] Isosorbide Dinitrate (Isordil -) 20 mg PO DAILY [facility] Last Admin: 12/03/17 10:03 Dose: 20 mg Losartan Potassium (Cozaar -) 25 mg PO DAILY [facility] Rosuvastatin Calcium (Crestor -) 10 mg PO [facility] Last Admin: 12/02/17 21:49 Dose: 10 mg Tamsulosin HCl (Flomax -) 0.4 mg PO [facility] Last Admin: 12/02/17 21:49 Dose: 0.4 mg Torsemide (Demadex -) 80 mg PO DAILY [facility] - Objective Vital Signs: Vital Signs Temperature 98.1 F 12/03/17 18:41 Pulse Rate 77 12/03/17 18:41 Respiratory Rate 18 12/03/17 18:41 Blood Pressure 150/79 12/03/17 18:41 O2 Sat by Pulse Oximetry (%) 95 12/03/17 11:00 Constitutional: Yes: No Distress, Calm Eyes: Yes: Conjunctiva Clear HENT: Yes: WNL Neck: Yes: Supple Cardiovascular: Yes: Regular Rate and Rhythm, S1, S2 Respiratory: Yes: Regular, Rales Gastrointestinal: Yes: Normal Bowel Sounds, Soft Genitourinary: Yes: WNL Musculoskeletal: Yes: WNL Extremities: Yes: WNL Edema: No Peripheral Pulses WNL: Yes Integumentary: Yes: WNL Neurological: Yes: Alert, Oriented, Cran Nerves II-XII Intact ...Motor Strength: WNL Psychiatric: Yes: Alert, Oriented Labs: CBC, BMP 12/03/17 06:20 12/03/17 12:16 INR, PTT INR 1.44 (0.82-1.09) H 12/03/17 06:20 Problem List - Problems (1) Acute on chronic systolic and diastolic heart failure, NYHA class 1 Assessment/Plan: )n HD doing well. AV fistula planned for next two days.On IV Heparin. Code(s): I50.43 - ACUTE ON CHRONIC COMBINED SYSTOLIC AND DIASTOLIC HRT FAIL (2) Fluid overload Assessment/Plan: Continues to have bilateral rales but less . Code(s): E87.70 - FLUID OVERLOAD, UNSPECIFIED Qualifiers: Hypervolemia type: unspecified Qualified Code(s): E87.70 - Fluid overload, unspecified (3) Anemia Assessment/Plan: Anemia stable with Procrit and iron replacement. Code(s): D64.9 - ANEMIA, UNSPECIFIED Qualifiers: Anemia type: due to chronic kidney disease Chronic kidney disease stage: stage 4 (severe) Qualified Code(s): N18.4 - Chronic kidney disease, stage 4 ( severe); D63.1 - Anemia in chronic kidney disease (4) BPH (benign prostatic hypertrophy) Code(s): N40.0 - BENIGN PROSTATIC HYPERPLASIA WITHOUT LOWER URINRY TRACT SYMP (5) Diabetes 1.5, managed as type 1 Assessment/Plan: DM being managed with Levemir and sliding scale Novolog Code(s): E13.9 - OTHER SPECIFIED DIABETES MELLITUS WITHOUT COMPLICATIONS (6) Hx of heart artery stent Code(s): Z95.5 - PRESENCE OF CORONARY ANGIOPLASTY IMPLANT AND GRAFT (7) LV (left ventricular) mural thrombus Code(s): [id number] -
[2017-12-03] MEDS: ROSUVASTATIN CA 10 MG TABLET (FP) PO SCH (22:27)
[2017-12-03] MEDS: ESCITALOPRAM OXALATE 10 MG TABLET (FP) PO SCH (22:28)
[2017-12-03] MEDS: TAMSULOSIN HCL 0.4 MG CAP.ER.24H (FP) PO SCH (22:28)
[2017-12-04] MEDS: DOCUSATE SODIUM 100 MG CAPSULE (FP) PO SCH ×3 (05:58→21:47)
[2017-12-04] MEDS ORDERED: INSULIN SLIDING SCALE (NOVOLOG) 1 VIAL SQ SCH (08:00)
[2017-12-04] MEDS ORDERED: INSULIN (NOVOLOG) ASPART 100 UNITS/ML 10ML VIAL ONE (08:19)
[2017-12-04] MEDS: INSULIN (LEVEMIR) 100 UNITS/ML UNITS SQ SCH (08:42)
[2017-12-04] MEDS: CALCIUM ACETATE 667 MG CAPSULE (FP) PO SCH ×3 (08:44→17:32)
[2017-12-04] MEDS: INSULIN SLIDING SCALE (NOVOLOG) 1 VIAL SQ SCH ×4 (08:44→21:48)
[2017-12-04] MEDS: ASPIRIN 81 MG CHEWABLE TABLETS PO SCH (09:00)
[2017-12-04] MEDS: FOLIC ACID 1 MG TABLET (FP) PO SCH (09:00)
[2017-12-04] MEDS: LOSARTAN POTASSIUM 25 MG TABLET PO SCH (09:00)
[2017-12-04] MEDS: ALLOPURINOL 300 MG TABLET (FP) PO SCH (09:01)
[2017-12-04] MEDS: TORSEMIDE 20 MG TABLET (FP) PO SCH (09:01)
[2017-12-04] MEDS: CLOPIDOGREL BISULFATE 75 MG TABLET (FP) PO SCH (09:01)
[2017-12-04] MEDS: ISOSORBIDE DINITRATE 20 MG TABLET (FP) PO SCH (09:01)
[2017-12-04] MEDS: hydrALAZINE HCL 25 MG TABLET (FP) PO SCH ×2 (09:01→21:47)
[2017-12-04] MEDS: CARVEDILOL 12.5 MG TABLET (FP) PO SCH ×2 (09:01→21:47)
--- NOTE | 2017-12-04 11:41 | PN ---
Progress Note (short form) - Note Progress Note: >>>>>>>>>>>>> covering note for Dr Hess Current Medications Allopurinol (Zyloprim -) 300 mg PO DAILY [facility] Last Admin: 12/04/17 09:01 Dose: 300 mg Aspirin (Asa -) 81 mg PO DAILY [facility] Last Admin: 12/04/17 09:00 Dose: 81 mg Calcium Acetate (Phoslo -) 667 mg PO TIDCM [facility] Last Admin: 12/04/17 08:44 Dose: 667 mg Carvedilol (Coreg -) 12.5 mg PO BID [facility] Last Admin: 12/04/17 09:01 Dose: 12.5 mg Clopidogrel Bisulfate (Plavix -) 75 mg PO DAILY [facility] Last Admin: 12/04/17 09:01 Dose: 75 mg Docusate Sodium (Colace -) 100 mg PO TID [facility] Last Admin: 12/04/17 05:58 Dose: 100 mg Escitalopram Oxalate (Lexapro -) 5 mg PO HS [facility] Last Admin: 12/03/17 22:28 Dose: 5 mg Folic Acid (Folic Acid -) 1 mg PO DAILY [facility] Last Admin: 12/04/17 09:00 Dose: 1 mg Heparin Sodium (Porcine) (Heparin -) 1,000 unit IVPUSH PRN PRN PRN Reason: Heparin Heparin Sodium (Porcine) (Heparin -) 2,900 unit 40 unit/kg (2900 unit) IVPUSH PRN PRN PRN Reason: For aPTT 35 to 45 seconds Heparin Sodium (Porcine) (Heparin -) 5,900 unit 80 unit/kg (5900 unit) IVPUSH PRN PRN PRN Reason: aPTT <35 seconds Hydralazine HCl (Apresoline -) 25 mg PO BID [facility] Last Admin: 12/04/17 09:01 Dose: 25 mg Heparin Sodium (Porcine) 25, (000 unit/ Sodium Chloride) 500 mls @ 26.37 mls/ hr IV TITR [facility]; Protocol Last Titration: 12/03/17 21:55 Dose: 15 unit/kg/hr, 21.97 mls/hr Insulin Aspart (Novolog Vial Sliding Scale -) 1 vial SQ HS [facility]; Protocol Last Admin: 12/03/17 22:29 Dose: Not Given Insulin Aspart (Novolog Vial Sliding Scale -) 1 vial SQ TIDCM [facility]; Protocol Last Admin: 12/04/17 08:44 Dose: 4 units Insulin Detemir (Levemir Vial) 35 units SQ DAILY@0800 [facility] Last Admin: 12/04/17 08:42 Dose: 35 units Isosorbide Dinitrate (Isordil -) 20 mg PO DAILY [facility] Last Admin: 12/04/17 09:01 Dose: 20 mg Losartan Potassium (Cozaar -) 25 mg PO DAILY [facility] Last Admin: 12/04/17 09:00 Dose: 25 mg Rosuvastatin Calcium (Crestor -) 10 mg PO [facility] Last Admin: 12/03/17 22:27 Dose: 10 mg Tamsulosin HCl (Flomax -) 0.4 mg PO [facility] Last Admin: 12/03/17 22:28 Dose: 0.4 mg Torsemide (Demadex -) 80 mg PO DAILY [facility] Last Admin: 12/04/17 09:01 Dose: 80 mg Laboratory Results - last 24 hr 12/03/17 12/03/17 12/03/17 06:20 11:11 12:16 PTT (Actin FS) Sodium 138 Potassium 4.1 Chloride 102 Carbon Dioxide 29 Anion Gap 7 L BUN 27 H D Creatinine 2.0 H POC Glucometer 429 Random Glucose 248 H D 375 H* D Calcium 8.6 12/03/17 12/03/17 12/03/17 16:00 16:39 18:30 PTT (Actin FS) Cancelled 153.2 H D Sodium Potassium Chloride Carbon Dioxide Anion Gap BUN Creatinine POC Glucometer 307 Random Glucose Calcium 12/03/17 12/04/17 12/04/17 22:26 04:30 08:30 PTT (Actin FS) 57.2 H D Sodium Potassium Chloride Carbon Dioxide Anion Gap BUN Creatinine POC Glucometer 229 191 Random Glucose Calcium Vital Signs Temperature 97.8 F 12/04/17 06:20 Pulse Rate 54 L 12/04/17 06:20 Respiratory Rate 20 12/04/17 06:20 Blood Pressure 114/63 12/04/17 06:20 O2 Sat by Pulse Oximetry (%) 97 12/03/17 21:00 CC: no specific complaint ````````````````````````````` skin--NL turgor; no acute lesions eyes--eomi; anicteric lungs--bilat decreased BS R>L; unlabored heart--slow abd--soft chest--with Rt sided catheter ext--no pitting edema neuro--awake; but a bit listless; able to respond to basic questions; able to follow some commands ``````````````````````````````````````` Summ > CHF--acute on chronic; diast & syst with RF: PLAN: cont cardiac meds; on HD to remove fluids; watch chems > DM--BS fluctuating; has narrow threshold for sudden hypoglycemia; cont current insulin reg; see Endocrine note > RF--will be on permamnet HD; to get AVF in AM > Group Home use of a/c--and antithrombotics; has LV thrombus; high risk for embolism > CAD--s/p stenting; on a/c > anemia--watch H/h; high risk of bleeding > Uricemia--on allopurinol ~~~~~~~~~~~~~~~~~ dr Jean....................for Dr Hess
--- NOTE | 2017-12-04 11:53 | PN ---
Progress Note (short form) - Note Progress Note: VAscular Surgery Pt seen and examined. For left avf adonay. Will check INR in am. NPO past midnite. Walter Huff DO
[2017-12-04 12:52] LABS: HEMATOCRIT 31.8 % (35.4-49); HEMOGLOBIN 9.8 GM/dL (11.7-16.9); MCHC 30.9 g/dl (32.0-35.9); MEAN CELL VOLUME 80.9 fl (80-96); MEAN PLT VOLUME 10.6 fl (7.5-11.1); PLATELET COUNT 105 K/MM3 (134-434); RBC 3.93 M/mm3 (4.00-5.60); RDW 23.1 % (11.9-15.9); WHITE BLOOD COUNT 6.4 K/mm3 (4.0-10.0)
[2017-12-04 13:02] LABS: INR 1.42 (0.82-1.09); PROTHROMBIN TIME (PATIENT) 16.1 SEC (9.7-13.0)
--- NOTE | 2017-12-04 13:33 | PN ---
Progress Note (short form) - Note Progress Note: PULMONARY Denies shortness of breath, cough or chest pain. Last Vital Signs Temp Pulse Resp BP Pulse Ox 97.8 F 54 L 20 114/63 97 12/04/17 06:20 12/04/17 06:20 12/04/17 06:20 12/04/17 06:20 12/03/17 21:00 Gen: NAD at rest Heart: RRR Lung: scattered rhonchi Abd: softly distended, nontender Ext: less edema CBC, BMP 12/04/17 12:35 12/03/17 12:16 INR, PTT INR 1.42 (0.82-1.09) H 12/04/17 12:35 Active Medications Allopurinol (Zyloprim -) 300 mg PO DAILY [facility] Last Admin: 12/04/17 09:01 Dose: 300 mg Aspirin (Asa -) 81 mg PO DAILY [facility] Last Admin: 12/04/17 09:00 Dose: 81 mg Calcium Acetate (Phoslo -) 667 mg PO TIDCM [facility] Last Admin: 12/04/17 11:55 Dose: 667 mg Carvedilol (Coreg -) 12.5 mg PO BID [facility] Last Admin: 12/04/17 09:01 Dose: 12.5 mg Clopidogrel Bisulfate (Plavix -) 75 mg PO DAILY [facility] Last Admin: 12/04/17 09:01 Dose: 75 mg Docusate Sodium (Colace -) 100 mg PO TID [facility] Last Admin: 12/04/17 05:58 Dose: 100 mg Escitalopram Oxalate (Lexapro -) 5 mg PO HS [facility] Last Admin: 12/03/17 22:28 Dose: 5 mg Folic Acid (Folic Acid -) 1 mg PO DAILY [facility] Last Admin: 12/04/17 09:00 Dose: 1 mg Heparin Sodium (Porcine) (Heparin -) 1,000 unit IVPUSH PRN PRN PRN Reason: Heparin Heparin Sodium (Porcine) (Heparin -) 2,900 unit 40 unit/kg (2900 unit) IVPUSH PRN PRN PRN Reason: For aPTT 35 to 45 seconds Heparin Sodium (Porcine) (Heparin -) 5,900 unit 80 unit/kg (5900 unit) IVPUSH PRN PRN PRN Reason: aPTT <35 seconds Hydralazine HCl (Apresoline -) 25 mg PO BID [facility] Last Admin: 12/04/17 09:01 Dose: 25 mg Heparin Sodium (Porcine) 25, (000 unit/ Sodium Chloride) 500 mls @ 26.37 mls/ hr IV TITR [facility]; Protocol Last Titration: 12/03/17 21:55 Dose: 15 unit/kg/hr, 21.97 mls/hr Insulin Aspart (Novolog Vial Sliding Scale -) 1 vial SQ HS [facility]; Protocol Last Admin: 12/03/17 22:29 Dose: Not Given Insulin Aspart (Novolog Vial Sliding Scale -) 1 vial SQ TIDCM [facility]; Protocol Last Admin: 12/04/17 11:53 Dose: 12 units Insulin Detemir (Levemir Vial) 35 units SQ DAILY@0800 [facility] Last Admin: 12/04/17 08:42 Dose: 35 units Isosorbide Dinitrate (Isordil -) 20 mg PO DAILY [facility] Last Admin: 12/04/17 09:01 Dose: 20 mg Losartan Potassium (Cozaar -) 25 mg PO DAILY [facility] Last Admin: 12/04/17 09:00 Dose: 25 mg Rosuvastatin Calcium (Crestor -) 10 mg PO HS [facility] Last Admin: 12/03/17 22:27 Dose: 10 mg Tamsulosin HCl (Flomax -) 0.4 mg PO HS [facility] Last Admin: 12/03/17 22:28 Dose: 0.4 mg Torsemide (Demadex -) 80 mg PO DAILY [facility] Last Admin: 12/04/17 09:01 Dose: 80 mg A/P Acute on Chronic Renal Failure requiring HD Acute on Chronic Systolic/Diastolic Heart Failure Volume Overload Hyponatremia CAD LV Thrombus HTN DM Hyperlipidemia - continue torsemide - monitor urine output, creatinine - HD per renal with ultrafiltration - continue anticoagulation - O2 to keep Spo2 >90% - for AVF tomorrow, no pulmonary contraindications
[2017-12-04] MEDS: HEPARIN - 25,000 UNIT in SODIUM CHLORIDE 495 ML IV SCH (14:45)
[2017-12-04] MEDS ORDERED: SODIUM CHLORIDE 250 ML IV PRN (16:09)
--- NOTE | 2017-12-04 16:09 | PN ---
Progress Note (short form) - Note Progress Note: Renal follow up for THEE and Volume overlaod Pt seen and examined at the bedside no acute complaints denies any sob, chest pain, abd pain, N/V for AVF creation tomorrow Vital Signs Temperature 98.2 F 12/04/17 13:45 Pulse Rate 79 12/04/17 13:45 Respiratory Rate 20 12/04/17 13:45 Blood Pressure 126/64 12/04/17 13:45 O2 Sat by Pulse Oximetry (%) 95 12/04/17 09:00 Intake & Output 12/01/17 12/02/17 12/03/17 12/04/17 23:59 23:59 23:59 23:59 Intake Total 512 118 4864.6 Output Total 20 2 Balance 472 322 3127.6 Weight 76.022 kg 73.255 kg 74.616 kg NAD on NC O2 RRR + rales b/l lungs soft NT/ND trace edema in LE CBC, BMP 12/04/17 12:35 12/03/17 12:16 Current Medications Allopurinol (Zyloprim -) 300 mg PO DAILY [facility] Last Admin: 12/04/17 09:01 Dose: 300 mg Aspirin (Asa -) 81 mg PO DAILY [facility] Last Admin: 12/04/17 09:00 Dose: 81 mg Calcium Acetate (Phoslo -) 667 mg PO TIDCM [facility] Last Admin: 12/04/17 11:55 Dose: 667 mg Carvedilol (Coreg -) 12.5 mg PO BID [facility] Last Admin: 12/04/17 09:01 Dose: 12.5 mg Clopidogrel Bisulfate (Plavix -) 75 mg PO DAILY [facility] Last Admin: 12/04/17 09:01 Dose: 75 mg Docusate Sodium (Colace -) 100 mg PO TID [facility] Last Admin: 12/04/17 13:57 Dose: 100 mg Escitalopram Oxalate (Lexapro -) 5 mg PO HS [facility] Last Admin: 12/03/17 22:28 Dose: 5 mg Folic Acid (Folic Acid -) 1 mg PO DAILY [facility] Last Admin: 12/04/17 09:00 Dose: 1 mg Heparin Sodium (Porcine) (Heparin -) 1,000 unit IVPUSH PRN PRN PRN Reason: Heparin Heparin Sodium (Porcine) (Heparin -) 2,900 unit 40 unit/kg (2900 unit) IVPUSH PRN PRN PRN Reason: For aPTT 35 to 45 seconds Heparin Sodium (Porcine) (Heparin -) 5,900 unit 80 unit/kg (5900 unit) IVPUSH PRN PRN PRN Reason: aPTT <35 seconds Hydralazine HCl (Apresoline -) 25 mg PO BID [facility] Last Admin: 12/04/17 09:01 Dose: 25 mg Heparin Sodium (Porcine) 25, (000 unit/ Sodium Chloride) 500 mls @ 26.37 mls/ hr IV TITR [facility]; Protocol Last Titration: 12/03/17 21:55 Dose: 15 unit/kg/hr, 21.97 mls/hr Insulin Aspart (Novolog Vial Sliding Scale -) 1 vial SQ HS [facility]; Protocol Last Admin: 12/03/17 22:29 Dose: Not Given Insulin Aspart (Novolog Vial Sliding Scale -) 1 vial SQ TIDCM [facility]; Protocol Last Admin: 12/04/17 11:53 Dose: 12 units Insulin Detemir (Levemir Vial) 35 units SQ DAILY@0800 [facility] Last Admin: 12/04/17 08:42 Dose: 35 units Isosorbide Dinitrate (Isordil -) 20 mg PO DAILY [facility] Last Admin: 12/04/17 09:01 Dose: 20 mg Losartan Potassium (Cozaar -) 25 mg PO DAILY [facility] Last Admin: 12/04/17 09:00 Dose: 25 mg Rosuvastatin Calcium (Crestor -) 10 mg PO HS [facility] Last Admin: 12/03/17 22:27 Dose: 10 mg Tamsulosin HCl (Flomax -) 0.[address] [facility] Last Admin: 12/03/17 22:28 Dose: 0.4 mg Torsemide (Demadex -) 80 mg PO DAILY [facility] Last Admin: 12/04/17 09:01 Dose: 80 mg 77 year old gentleman with PMhx of CAD s/p HI, CHF, Hypertension, IDDM, HLD, CKD , with recent THEE who presented from home with fall and found to have THEE and fluid overlaod/CHF. #THEE on CKD in setting of volume overload now ESRD with dialysis dependence #Acute CHF #Anemia #CAD for AVF/AVG placement tomorrow dialysis also to be performed tomorrow volume status is improved continue renal diet and fluid restriction continue torsemide daily on Losartan to restart coumadin after access placement Florencio Del Cid DO
--- NOTE | 2017-12-04 16:43 | PN ---
Progress Note (short form) - Note Progress Note: Denies any complaints Vital Signs Period Temp Pulse Resp BP Sys/Simons Pulse Ox Last 24 Hr 97.4 F-98.4 F 54-79 18-20 114-151/63-87 95-97 PE:AOx3 Neck: supple, No JVD HEENT: PERRL EOMI Lungs: b/L basal crackles Abd: Benign CVS: S1s2 Ext: +Edema Neuro: No focal deficit CMP Sodium 138 mmol/L (136-145) 12/03/17 06:20 Potassium 4.1 mmol/L (3.5-5.1) 12/03/17 06:20 Chloride 102 mmol/L (98-107) 12/03/17 06:20 Carbon Dioxide 29 mmol/L (21-32) 12/03/17 06:20 Anion Gap 7 (8-16) L 12/03/17 06:20 BUN 27 mg/dL (7-18) H D 12/03/17 06:20 Creatinine 2.0 mg/dL (0.7-1.3) H 12/03/17 06:20 Creat Clearance w eGFR 22.97 (>60) 12/01/17 18:15 POC Glucometer 393 UNITS (80-120) 12/04/17 17:28 Random Glucose 375 mg/dL (74-106) H* D 12/03/17 12:16 Calcium 8.6 mg/dL (8.5-10.1) 12/03/17 06:20 Phosphorus 3.0 mg/dL (2.5-4.9) D 12/02/17 13:40 Magnesium 2.5 mg/dL (1.8-2.4) H 11/29/17 07:30 Iron 43 ug/dL (38-169) 11/25/17 15:56 TIBC 300 ug/dL (250-450) 11/25/17 15:56 Iron Saturation 14 % (15-55) L 11/25/17 15:56 Ferritin 51.426 ng/ml (16.4-293.9) 11/25/17 15:56 Total Bilirubin 0.5 mg/dL (0.2-1.0) 12/01/17 18:15 AST 18 U/L (15-37) 12/01/17 18:15 ALT 25 U/L (12-78) D 12/01/17 18:15 Alkaline Phosphatase 120 U/L (45-117) H 12/01/17 18:15 Creatine Kinase 129 IU/L (39-308) 11/21/17 11:26 Troponin I < 0.02 ng/ml (0.00-0.05) D 11/21/17 11:26 B-Natriuretic Peptide 7918.00 pg/ml (5-450) H 11/21/17 11:30 Total Protein 6.8 g/dl (6.4-8.2) 12/01/17 18:15 Albumin 3.1 g/dl (3.4-5.0) L 12/01/17 18:15 TSH 5.99 uIU/ml (0.358-3.74) H D 11/21/17 21:41 Free T4 0.95 ng/dl (0.76-1.16) 11/26/17 06:00 Current Medications Generic Name Dose Route Start Last Admin Trade Name Mp PRN Reason Stop Dose Admin Allopurinol 300 mg 12/02/17 10:00 12/04/17 09:01 Zyloprim - PO 300 mg DAILY [facility] Administration Aspirin 81 mg 12/02/17 10:00 12/04/17 09:00 Asa - PO 81 mg DAILY [facility] Administration Calcium Acetate 667 mg 12/01/17 12:00 12/04/17 17:32 Phoslo - PO 667 mg TIDCM [facility] Administration Carvedilol 12.5 mg 12/01/17 22:00 12/04/17 09:01 Coreg - PO 12.5 mg BID [facility] Administration Clopidogrel Bisulfate 75 mg 12/02/17 10:00 12/04/17 09:01 Plavix - PO 75 mg DAILY [facility] Administration Docusate Sodium 100 mg 12/01/17 14:00 12/04/17 13:57 Colace - PO 100 mg TID [facility] Administration Epoetin Fahad 10,000 unit 12/05/17 06:00 Epogen - IVPUSH 12/05/17 06:01 ONCE ONE Escitalopram Oxalate 5 mg 12/01/17 22:00 12/03/17 22:28 Lexapro - PO 5 mg HS [facility] Administration Folic Acid 1 mg 12/02/17 10:00 12/04/17 09:00 Folic Acid - PO 1 mg DAILY [facility] Administration Heparin Sodium (Porcine) 1,000 unit 12/03/17 14:14 Heparin - IVPUSH PRN PRN Heparin Heparin Sodium (Porcine) 2,900 unit 12/03/17 14:32 Heparin - 40 unit/kg (2900 unit) IVPUSH PRN PRN For aPTT 35 to 45 seconds Heparin Sodium (Porcine) 5,900 unit 12/03/17 14:32 Heparin - 80 unit/kg (5900 unit) IVPUSH PRN PRN aPTT <35 seconds Hydralazine HCl 25 mg 12/01/17 22:00 12/04/17 09:01 Apresoline - PO 25 mg BID [facility] Administration Heparin Sodium (Porcine) 25, 500 mls @ 26.37 mls/hr 12/03/17 14:45 12/04/17 14:45 000 unit/ Sodium Chloride IV Not Given TITR [facility] Protocol 18 UNIT/KG/HR Sodium Chloride 250 mls @ 3,000 mls/hr 12/04/17 16:09 Normal Saline - IV 12/05/17 16:09 PRN PRN Hypotension during Dialysis Insulin Aspart 1 vial 12/03/17 22:00 12/03/17 22:29 Novolog Vial Sliding Scale - SQ Not Given HS [facility] Protocol Insulin Aspart 1 vial 12/04/17 08:00 12/04/17 17:30 Novolog Vial Sliding Scale - SQ 12 units TIDCM [facility] Administration Protocol Insulin Detemir 35 units 12/04/17 08:00 12/04/17 08:42 Levemir Vial SQ 35 units DAILY@0800 [facility] Administration Isosorbide Dinitrate 20 mg 12/02/17 10:00 12/04/17 09:01 Isordil - PO 20 mg DAILY [facility] Administration Losartan Potassium 25 mg 12/04/17 10:00 12/04/17 09:00 Cozaar - PO 25 mg DAILY [facility] Administration Rosuvastatin Calcium 10 mg 12/01/17 22:00 12/03/17 22:27 Crestor - PO 10 mg HS [facility] Administration Tamsulosin HCl 0.4 mg 12/01/17 22:00 12/03/17 22:28 Flomax - PO 0.4 mg HS [facility] Administration Torsemide 80 mg 12/04/17 10:00 12/04/17 09:01 Demadex - PO 80 mg DAILY [facility] Administration A/P Acute on Chronic Renal Failure requiring HD Acute on Chronic Systolic/Diastolic Heart Failure Volume Overload DM uncontrolled CAD LV Thrombus HTN Hyperlipidemia IV diuretics IV Heparin Awaiting AV Graft/fistula Continue Levemir 35 units daily in the morning Increase Novolog Coverage, to be given only once food is in the room and pt is ready to eat. Discussed with nursing staff. Will F/U Problem List - Problems (1) Acute on chronic systolic and diastolic heart failure, NYHA class 1 Code(s): I50.43 - ACUTE ON CHRONIC COMBINED SYSTOLIC AND DIASTOLIC HRT FAIL (2) Fall Code(s): W19.XXXA - UNSPECIFIED FALL, INITIAL ENCOUNTER Qualifiers: Encounter type: initial encounter Qualified Code(s): W19.XXXA - Unspecified fall, initial encounter (3) Fluid overload Code(s): E87.70 - FLUID OVERLOAD, UNSPECIFIED Qualifiers: Hypervolemia type: unspecified Qualified Code(s): E87.70 - Fluid overload, unspecified (4) Acute renal failure Code(s): N17.9 - ACUTE KIDNEY FAILURE, UNSPECIFIED (5) Diabetes mellitus Code(s): E11.9 - TYPE 2 DIABETES MELLITUS WITHOUT COMPLICATIONS Qualifiers: Diabetes mellitus type: type 2 Diabetes mellitus complication status: with ophthalmic complications Diabetes mellitus complication detail: with diabetic retinopathy
[2017-12-04] MEDS ORDERED: PT OWN MED DRAWER 7, Y5N ONE (17:10)
--- NOTE | 2017-12-04 18:54 | PN ---
Progress Note, Physician Chief Complaint: Pt alert; denies chest pain or dyspnea. Sitting in chair. History of Present Illness: Mr. Davila is a 77 yo male (b. [place]) w/ pmh of AMI in Jul of this year with subsequent 5 stents during catheterization (and prior NSTEMI a few years ago, also resulting in PCI), systolic/diastolic CHF, HTN, HLD, IDDM, and known left ventricle thrombus (currently on plavix, ASA, and coumadin) who presents following fall earlier today. Per his , who is with him, he slid out of bed and fell on to his right buttock. Did not experience any LOC or dizziness and describes this as a mechanical fall. He has had increasing falls lately and was recently evaluated for similar fall on right side 11/11/17 in [facility]. - Current Medication List Current Medications: Active Medications Allopurinol (Zyloprim -) 300 mg PO DAILY [facility] Last Admin: 12/04/17 09:01 Dose: 300 mg Aspirin (Asa -) 81 mg PO DAILY [facility] Last Admin: 12/04/17 09:00 Dose: 81 mg Calcium Acetate (Phoslo -) 667 mg PO TIDCM [facility] Last Admin: 12/04/17 17:32 Dose: 667 mg Carvedilol (Coreg -) 12.5 mg PO BID [facility] Last Admin: 12/04/17 09:01 Dose: 12.5 mg Clopidogrel Bisulfate (Plavix -) 75 mg PO DAILY [facility] Last Admin: 12/04/17 09:01 Dose: 75 mg Docusate Sodium (Colace -) 100 mg PO TID [facility] Last Admin: 12/04/17 13:57 Dose: 100 mg Epoetin Fahad (Epogen -) 10,000 unit IVPUSH ONCE ONE Stop: 12/05/17 06:01 Escitalopram Oxalate (Lexapro -) 5 mg PO HS [facility] Last Admin: 12/03/17 22:28 Dose: 5 mg Folic Acid (Folic Acid -) 1 mg PO DAILY [facility] Last Admin: 12/04/17 09:00 Dose: 1 mg Heparin Sodium (Porcine) (Heparin -) 1,000 unit IVPUSH PRN PRN PRN Reason: Heparin Heparin Sodium (Porcine) (Heparin -) 2,900 unit 40 unit/kg (2900 unit) IVPUSH PRN PRN PRN Reason: For aPTT 35 to 45 seconds Heparin Sodium (Porcine) (Heparin -) 5,900 unit 80 unit/kg (5900 unit) IVPUSH PRN PRN PRN Reason: aPTT <35 seconds Hydralazine HCl (Apresoline -) 25 mg PO BID [facility] Last Admin: 12/04/17 09:01 Dose: 25 mg Heparin Sodium (Porcine) 25, (000 unit/ Sodium Chloride) 500 mls @ 26.37 mls/ hr IV TITR [facility]; Protocol Last Admin: 12/04/17 14:45 Dose: Not Given Sodium Chloride (Normal Saline -) 250 mls @ 3,000 mls/hr IV PRN PRN PRN Reason: Hypotension during Dialysis Stop: 12/05/17 16:09 Insulin Aspart (Novolog Vial Sliding Scale -) 1 vial SQ HS [facility]; Protocol Last Admin: 12/03/17 22:29 Dose: Not Given Insulin Aspart (Novolog Vial Sliding Scale -) 1 vial SQ TIDCM [facility]; Protocol Insulin Detemir (Levemir Vial) 35 units SQ DAILY@0800 [facility] Last Admin: 12/04/17 08:42 Dose: 35 units Isosorbide Dinitrate (Isordil -) 20 mg PO DAILY [facility] Last Admin: 12/04/17 09:01 Dose: 20 mg Losartan Potassium (Cozaar -) 25 mg PO DAILY [facility] Last Admin: 12/04/17 09:00 Dose: 25 mg Rosuvastatin Calcium (Crestor -) 10 mg PO [facility] Last Admin: 12/03/17 22:27 Dose: 10 mg Tamsulosin HCl (Flomax -) 0.4 mg PO [facility] Last Admin: 12/03/17 22:28 Dose: 0.4 mg Torsemide (Demadex -) 80 mg PO DAILY [facility] Last Admin: 12/04/17 09:01 Dose: 80 mg - Objective Vital Signs: Vital Signs Temperature 98.3 F 12/04/17 18:00 Pulse Rate 66 12/04/17 18:00 Respiratory Rate 19 12/04/17 18:00 Blood Pressure 131/65 12/04/17 18:00 O2 Sat by Pulse Oximetry (%) 95 12/04/17 09:00 Labs: CBC, BMP 12/04/17 12:35 12/03/17 12:16 INR, PTT INR 1.42 (0.82-1.09) H 12/04/17 12:35 Problem List - Problems (1) Acute on chronic systolic and diastolic heart failure, NYHA class 1 Assessment/Plan: No longer with JVD; No CHF on 12/01/17 CXR. TNI < 0.02. On carvedilol, hydralazine+isordil. s/p Permacath; would start ACEI if pt will be on permanent hemodialysis. F/u BUN/Cr, electrolytes, Is and Os, daily weight. Diuretics per pipe installer. Code(s): I50.43 - ACUTE ON CHRONIC COMBINED SYSTOLIC AND DIASTOLIC HRT FAIL (2) Fall Assessment/Plan: Large right LE hip hematoma. Pt has had multiple falls; rhabdomyolysis may have occurred, further compromising pt's renal function. CK now 137. Hb 9.8. Code(s): W19.XXXA - UNSPECIFIED FALL, INITIAL ENCOUNTER Qualifiers: Encounter type: initial encounter Qualified Code(s): W19.XXXA - Unspecified fall, initial encounter (3) Fluid overload Code(s): E87.70 - FLUID OVERLOAD, UNSPECIFIED Qualifiers: Hypervolemia type: unspecified Qualified Code(s): E87.70 - Fluid overload, unspecified (4) Anemia Code(s): D64.9 - ANEMIA, UNSPECIFIED Qualifiers: Anemia type: due to chronic kidney disease Chronic kidney disease stage: stage 4 (severe) Qualified Code(s): N18.4 - Chronic kidney disease, stage 4 ( severe); D63.1 - Anemia in chronic kidney disease (5) Anxiety and depression Code(s): F41.8 - OTHER SPECIFIED ANXIETY DISORDERS (6) BPH (benign prostatic hypertrophy) Code(s): N40.0 - BENIGN PROSTATIC HYPERPLASIA WITHOUT LOWER URINRY TRACT SYMP (7) CVA (cerebral infarction) Code(s): I63.9 - CEREBRAL INFARCTION, UNSPECIFIED Qualifiers: Cerebral infarction mechanism: unspecified mechanism Qualified Code(s): I63.9 - Cerebral infarction, unspecified (8) Diabetes mellitus Code(s): E11.9 - TYPE 2 DIABETES MELLITUS WITHOUT COMPLICATIONS Qualifiers: Diabetes mellitus type: type 2 Diabetes mellitus complication status: with ophthalmic complications Diabetes mellitus complication detail: with diabetic retinopathy (9) HTN (hypertension) Code(s): I10 - ESSENTIAL (PRIMARY) HYPERTENSION (10) Hx of heart artery stent Code(s): Z95.5 - PRESENCE OF CORONARY ANGIOPLASTY IMPLANT AND GRAFT (11) LV (left ventricular) mural thrombus Code(s): [id number] - (12) Renal dysfunction Code(s): N28.9 - DISORDER OF KIDNEY AND URETER, UNSPECIFIED (13) Status post myocardial infarction Code(s): I25.2 - OLD MYOCARDIAL INFARCTION (14) Syncope Code(s): R55 - SYNCOPE AND COLLAPSE (15) Sleep apnea Code(s): G47.30 - SLEEP APNEA, UNSPECIFIED (16) Hyperlipidemia Code(s): E78.5 - HYPERLIPIDEMIA, UNSPECIFIED Qualifiers: Hyperlipidemia type: pure hypercholesterolemia Qualified Code(s): E78.00 - Pure hypercholesterolemia, unspecified; E78.0 - Pure hypercholesterolemia
[2017-12-04] MEDS: ESCITALOPRAM OXALATE 10 MG TABLET (FP) PO SCH (21:45)
[2017-12-04] MEDS: ROSUVASTATIN CA 10 MG TABLET (FP) PO SCH (21:46)
[2017-12-04] MEDS: TAMSULOSIN HCL 0.4 MG CAP.ER.24H (FP) PO SCH (21:48)
[2017-12-05] MEDS: DOCUSATE SODIUM 100 MG CAPSULE (FP) PO SCH ×2 (05:35→22:10)
[2017-12-05] MEDS ORDERED: EPOETIN ALFA 2,000 UNIT/1 ML VIAL IVPUSH ONE (06:00)
[2017-12-05 08:03] LABS: HEMATOCRIT 28.5 % (35.4-49); HEMOGLOBIN 9.1 GM/dL (11.7-16.9); MCH 25.5 pg (25.7-33.7); MCHC 31.8 g/dl (32.0-35.9); MEAN CELL VOLUME 80.2 fl (80-96); MEAN PLT VOLUME 10.8 fl (7.5-11.1); PLATELET COUNT 102 K/MM3 (134-434); RBC 3.56 M/mm3 (4.00-5.60); RDW 22.2 % (11.9-15.9)
[2017-12-05 08:32] LABS: CHLORIDE 98 mmol/L (98-107); POTASSIUM 4.4 mmol/L (3.5-5.1); SODIUM 134 mmol/L (136-145)
[2017-12-05] MEDS: INSULIN (LEVEMIR) 100 UNITS/ML UNITS SQ SCH (08:52)
[2017-12-05] MEDS: INSULIN SLIDING SCALE (NOVOLOG) 1 VIAL SQ SCH ×4 (08:52→23:20)
[2017-12-05] MEDS ORDERED: PT OWN MED DRAWER 7, Y5N ONE (09:12)
[2017-12-05 09:14] LABS: ALBUMIN 2.8 g/dl (3.4-5.0); ALK PHOS 86 U/L (45-117); ANION GAP 11 (8-16); BILIRUBIN,TOTAL 0.5 mg/dL (0.2-1.0); BLOOD UREA NITROGEN 66 mg/dL (7-18); CALCIUM 8.3 mg/dL (8.5-10.1); CO2 25 mmol/L (21-32); CREATININE 2.5 mg/dL (0.7-1.3); GLUCOSE,RANDOM 140 mg/dL (74-106); SGOT/AST 18 U/L (15-37); SGPT/ALT 21 U/L (12-78); TOT PROT 5.8 g/dl (6.4-8.2); URIC ACID 4.1 mg/dL (2.6-7.2)
[2017-12-05] MEDS: ISOSORBIDE DINITRATE 20 MG TABLET (FP) PO SCH (09:23)
[2017-12-05] MEDS: CALCIUM ACETATE 667 MG CAPSULE (FP) PO SCH ×3 (09:23→18:58)
[2017-12-05] MEDS: ASPIRIN 81 MG CHEWABLE TABLETS PO SCH (09:23)
[2017-12-05] MEDS: LOSARTAN POTASSIUM 25 MG TABLET PO SCH (09:23)
[2017-12-05] MEDS: FOLIC ACID 1 MG TABLET (FP) PO SCH (09:23)
[2017-12-05] MEDS: TORSEMIDE 20 MG TABLET (FP) PO SCH (09:23)
[2017-12-05] MEDS: hydrALAZINE HCL 25 MG TABLET (FP) PO SCH ×2 (09:23→22:10)
[2017-12-05] MEDS: CARVEDILOL 12.5 MG TABLET (FP) PO SCH ×2 (09:23→22:10)
[2017-12-05] MEDS: ALLOPURINOL 300 MG TABLET (FP) PO SCH (09:24)
[2017-12-05] MEDS: CLOPIDOGREL BISULFATE 75 MG TABLET (FP) PO SCH (09:24)
--- NOTE | 2017-12-05 10:20 | PN ---
Progress Note (short form) - Note Progress Note: Denies any complaints Awaiting AV graft Vital Signs Period Temp Pulse Resp BP Sys/Simons Pulse Ox Last 24 Hr 97.7 F-98.8 F 54-79 19-20 106-131/58-69 97 PE:AOx3 Neck: supple, No JVD HEENT: PERRL EOMI Lungs: b/L basal crackles Abd: Benign CVS: S1s2 Ext: +Edema Neuro: No focal deficit CMP Sodium 134 mmol/L (136-145) L 12/05/17 06:18 Potassium 4.4 mmol/L (3.5-5.1) 12/05/17 06:18 Chloride 98 mmol/L (98-107) 12/05/17 06:18 Carbon Dioxide 25 mmol/L (21-32) 12/05/17 06:18 Anion Gap 11 (8-16) 12/05/17 06:18 BUN 66 mg/dL (7-18) H D 12/05/17 06:18 Creatinine 2.5 mg/dL (0.7-1.3) H D 12/05/17 06:18 Creat Clearance w eGFR 25.10 (>60) 12/05/17 06:18 POC Glucometer 175 UNITS (80-120) 12/05/17 08:21 Random Glucose 140 mg/dL (74-106) H D 12/05/17 06:18 Uric Acid 4.1 mg/dL (2.6-7.2) D 12/05/17 06:18 Calcium 8.3 mg/dL (8.5-10.1) L 12/05/17 06:18 Phosphorus 3.0 mg/dL (2.5-4.9) D 12/02/17 13:40 Magnesium 2.5 mg/dL (1.8-2.4) H 11/29/17 07:30 Iron 43 ug/dL (38-169) 11/25/17 15:56 TIBC 300 ug/dL (250-450) 11/25/17 15:56 Iron Saturation 14 % (15-55) L 11/25/17 15:56 Ferritin 51.426 ng/ml (16.4-293.9) 11/25/17 15:56 Total Bilirubin 0.5 mg/dL (0.2-1.0) 12/05/17 06:18 AST 18 U/L (15-37) 12/05/17 06:18 ALT 21 U/L (12-78) 12/05/17 06:18 Alkaline Phosphatase 86 U/L (45-117) D 12/05/17 06:18 Creatine Kinase 129 IU/L (39-308) 11/21/17 11:26 Troponin I < 0.02 ng/ml (0.00-0.05) D 11/21/17 11:26 B-Natriuretic Peptide 7918.00 pg/ml (5-450) H 11/21/17 11:30 Total Protein 5.8 g/dl (6.4-8.2) L 12/05/17 06:18 Albumin 2.8 g/dl (3.4-5.0) L 12/05/17 06:18 TSH 13.70 uIU/ml (0.358-3.74) H D 12/05/17 06:18 Free T4 0.95 ng/dl (0.76-1.16) 11/26/17 06:00 Current Medications Generic Name Dose Route Start Last Admin Trade Name Shaiq PRN Reason Stop Dose Admin Allopurinol 300 mg 12/02/17 10:00 12/05/17 09:24 Zyloprim - PO Not Given DAILY [facility] Aspirin 81 mg 12/02/17 10:00 12/05/17 09:23 Asa - PO 81 mg DAILY [facility] Administration Calcium Acetate 667 mg 12/01/17 12:00 12/05/17 09:23 Phoslo - PO 667 mg TIDCM [facility] Administration Carvedilol 12.5 mg 12/01/17 22:00 12/05/17 09:23 Coreg - PO 12.5 mg BID [facility] Administration Clopidogrel Bisulfate 75 mg 12/02/17 10:00 12/05/17 09:24 Plavix - PO Not Given DAILY [facility] Docusate Sodium 100 mg 12/01/17 14:00 12/05/17 05:35 Colace - PO 100 mg TID [facility] Administration Epoetin Fahad 10,000 unit 12/05/17 06:00 Epogen - IVPUSH 12/05/17 06:01 ONCE ONE Escitalopram Oxalate 5 mg 12/01/17 22:00 12/04/17 21:45 Lexapro - PO 5 mg HS [facility] Administration Folic Acid 1 mg 12/02/17 10:00 12/05/17 09:23 Folic Acid - PO 1 mg DAILY [facility] Administration Heparin Sodium (Porcine) 1,000 unit 12/03/17 14:14 Heparin - IVPUSH PRN PRN Heparin Heparin Sodium (Porcine) 2,900 unit 12/03/17 14:32 Heparin - 40 unit/kg (2900 unit) IVPUSH PRN PRN For aPTT 35 to 45 seconds Heparin Sodium (Porcine) 5,900 unit 12/03/17 14:32 Heparin - 80 unit/kg (5900 unit) IVPUSH PRN PRN aPTT <35 seconds Hydralazine HCl 25 mg 12/01/17 22:00 12/05/17 09:23 Apresoline - PO 25 mg BID [facility] Administration Heparin Sodium (Porcine) 25, 500 mls @ 26.37 mls/hr 12/03/17 14:45 12/04/17 14:45 000 unit/ Sodium Chloride IV Not Given TITR [facility] Protocol 18 UNIT/KG/HR Sodium Chloride 250 mls @ 3,000 mls/hr 12/04/17 16:09 Normal Saline - IV 12/05/17 16:09 PRN PRN Hypotension during Dialysis Insulin Aspart 1 vial 12/03/17 22:00 12/04/17 21:48 Novolog Vial Sliding Scale - SQ 4 units HS [facility] Administration Protocol Insulin Aspart 1 vial 12/04/17 18:03 12/05/17 08:52 Novolog Vial Sliding Scale - SQ Not Given TIDCM [facility] Protocol Insulin Detemir 35 units 12/04/17 08:00 12/05/17 08:52 Levemir Vial SQ Not Given DAILY@0800 [facility] Isosorbide Dinitrate 20 mg 12/02/17 10:00 12/05/17 09:23 Isordil - PO 20 mg DAILY [facility] Administration Losartan Potassium 25 mg 12/04/17 10:00 12/05/17 09:23 Cozaar - PO 25 mg DAILY [facility] Administration Rosuvastatin Calcium 10 mg 12/01/17 22:00 12/04/17 21:46 Crestor - PO 10 mg HS [facility] Administration Tamsulosin HCl 0.4 mg 12/01/17 22:00 12/04/17 21:48 Flomax - PO 0.4 mg HS [facility] Administration Torsemide 80 mg 12/04/17 10:00 12/05/17 09:23 Demadex - PO 80 mg DAILY [facility] Administration A/P Acute on Chronic Renal Failure requiring HD Acute on Chronic Systolic/Diastolic Heart Failure Volume Overload DM uncontrolled ?Hypothyroidism: TSH 13.7 now was 5.99 on 11/21/17 CAD LV Thrombus HTN Hyperlipidemia IV diuretics IV Heparin Awaiting AV Graft/fistula Continue Levemir 35 units daily in the morning, Continue Novolog Coverage, to be given only once food is in the room and pt is ready to eat. Discussed with nursing staff. Repeat TFT next week, No LT4 replacement for now Will F/U Problem List - Problems (1) Acute on chronic systolic and diastolic heart failure, NYHA class 1 Code(s): I50.43 - ACUTE ON CHRONIC COMBINED SYSTOLIC AND DIASTOLIC HRT FAIL (2) Fall Code(s): W19.XXXA - UNSPECIFIED FALL, INITIAL ENCOUNTER Qualifiers: Encounter type: initial encounter Qualified Code(s): W19.XXXA - Unspecified fall, initial encounter (3) Fluid overload Code(s): E87.70 - FLUID OVERLOAD, UNSPECIFIED Qualifiers: Hypervolemia type: unspecified Qualified Code(s): E87.70 - Fluid overload, unspecified (4) Acute renal failure Code(s): N17.9 - ACUTE KIDNEY FAILURE, UNSPECIFIED (5) Diabetes mellitus Code(s): E11.9 - TYPE 2 DIABETES MELLITUS WITHOUT COMPLICATIONS Qualifiers: Diabetes mellitus type: type 2 Diabetes mellitus complication status: with ophthalmic complications Diabetes mellitus complication detail: with diabetic retinopathy
--- NOTE | 2017-12-05 11:32 | PN ---
Progress Note, Physician History of Present Illness: pulmonary alert,comfortable,oob-chair,-resp distress - Current Medication List Current Medications: Active Medications Allopurinol (Zyloprim -) 300 mg PO DAILY [facility] Last Admin: 12/05/17 09:24 Dose: Not Given Aspirin (Asa -) 81 mg PO DAILY [facility] Last Admin: 12/05/17 09:23 Dose: 81 mg Calcium Acetate (Phoslo -) 667 mg PO TIDCM [facility] Last Admin: 12/05/17 09:23 Dose: 667 mg Carvedilol (Coreg -) 12.5 mg PO BID [facility] Last Admin: 12/05/17 09:23 Dose: 12.5 mg Clopidogrel Bisulfate (Plavix -) 75 mg PO DAILY [facility] Last Admin: 12/05/17 09:24 Dose: Not Given Docusate Sodium (Colace -) 100 mg PO TID [facility] Last Admin: 12/05/17 05:35 Dose: 100 mg Epoetin Fahad (Epogen -) 10,000 unit IVPUSH ONCE ONE Stop: 12/05/17 06:01 Escitalopram Oxalate (Lexapro -) 5 mg PO HS [facility] Last Admin: 12/04/17 21:45 Dose: 5 mg Folic Acid (Folic Acid -) 1 mg PO DAILY [facility] Last Admin: 12/05/17 09:23 Dose: 1 mg Heparin Sodium (Porcine) (Heparin -) 1,000 unit IVPUSH PRN PRN PRN Reason: Heparin Heparin Sodium (Porcine) (Heparin -) 2,900 unit 40 unit/kg (2900 unit) IVPUSH PRN PRN PRN Reason: For aPTT 35 to 45 seconds Heparin Sodium (Porcine) (Heparin -) 5,900 unit 80 unit/kg (5900 unit) IVPUSH PRN PRN PRN Reason: aPTT <35 seconds Hydralazine HCl (Apresoline -) 25 mg PO BID [facility] Last Admin: 12/05/17 09:23 Dose: 25 mg Heparin Sodium (Porcine) 25, (000 unit/ Sodium Chloride) 500 mls @ 26.37 mls/ hr IV TITR [facility]; Protocol Last Admin: 12/04/17 14:45 Dose: Not Given Sodium Chloride (Normal Saline -) 250 mls @ 3,000 mls/hr IV PRN PRN PRN Reason: Hypotension during Dialysis Stop: 12/05/17 16:09 Insulin Aspart (Novolog Vial Sliding Scale -) 1 vial SQ HS [facility]; Protocol Last Admin: 12/04/17 21:48 Dose: 4 units Insulin Aspart (Novolog Vial Sliding Scale -) 1 vial SQ TIDCM [facility]; Protocol Last Admin: 12/05/17 08:52 Dose: Not Given Insulin Detemir (Levemir Vial) 35 units SQ DAILY@0800 [facility] Last Admin: 12/05/17 08:52 Dose: Not Given Isosorbide Dinitrate (Isordil -) 20 mg PO DAILY [facility] Last Admin: 12/05/17 09:23 Dose: 20 mg Losartan Potassium (Cozaar -) 25 mg PO DAILY [facility] Last Admin: 12/05/17 09:23 Dose: 25 mg Rosuvastatin Calcium (Crestor -) 10 mg PO [facility] Last Admin: 12/04/17 21:46 Dose: 10 mg Tamsulosin HCl (Flomax -) 0.4 mg PO [facility] Last Admin: 12/04/17 21:48 Dose: 0.4 mg Torsemide (Demadex -) 80 mg PO DAILY [facility] Last Admin: 12/05/17 09:23 Dose: 80 mg - Objective Vital Signs: Vital Signs Temperature 98.8 F 12/05/17 06:00 Pulse Rate 54 L 12/05/17 06:00 Respiratory Rate 19 12/05/17 06:00 Blood Pressure 117/58 12/05/17 06:00 O2 Sat by Pulse Oximetry (%) 97 12/04/17 21:00 Constitutional: Yes: Well Nourished, Calm Eyes: Yes: WNL HENT: Yes: WNL Neck: Yes: WNL Cardiovascular: Yes: Regular Rate and Rhythm, S1, S2 Respiratory: Yes: Rales (bibasailar rales) Gastrointestinal: Yes: Normal Bowel Sounds, Soft Extremities: Yes: WNL Edema: No Labs: CBC, BMP 12/05/17 06:18 12/05/17 06:18 INR, PTT INR 1.42 (0.82-1.09) H 12/04/17 12:35 Assessment/Plan ASSESSMENT AND PLAN: Acute on Chronic Renal Failure requiring HD Acute on Chronic Systolic/Diastolic Heart Failure improving Volume Overload Hyponatremia CAD LV Thrombus HTN DM Hyperlipidemia - HD as per renal - monitor urine output, creatinine - monitor lytes - Anticoagulation - O2 to keep Spo2 >90% DR CARCAMO Problem List - Problems (1) Fall Code(s): W19.XXXA - UNSPECIFIED FALL, INITIAL ENCOUNTER Qualifiers: Encounter type: initial encounter Qualified Code(s): W19.XXXA - Unspecified fall, initial encounter (2) Fluid overload Code(s): E87.70 - FLUID OVERLOAD, UNSPECIFIED Qualifiers: Hypervolemia type: unspecified Qualified Code(s): E87.70 - Fluid overload, unspecified (3) Hyponatremia Code(s): E87.1 - HYPO-OSMOLALITY AND HYPONATREMIA (4) Acute on chronic systolic CHF (congestive heart failure) Code(s): I50.23 - ACUTE ON CHRONIC SYSTOLIC (CONGESTIVE) HEART FAILURE (5) Acute renal failure Code(s): N17.9 - ACUTE KIDNEY FAILURE, UNSPECIFIED (6) Anemia Code(s): D64.9 - ANEMIA, UNSPECIFIED Qualifiers: Anemia type: due to chronic kidney disease Chronic kidney disease stage: stage 4 (severe) Qualified Code(s): N18.4 - Chronic kidney disease, stage 4 ( severe); D63.1 - Anemia in chronic kidney disease (7) BPH (benign prostatic hypertrophy) Code(s): N40.0 - BENIGN PROSTATIC HYPERPLASIA WITHOUT LOWER URINRY TRACT SYMP (8) Chronic renal disease Code(s): N18.9 - CHRONIC KIDNEY DISEASE, UNSPECIFIED Qualifiers: Chronic kidney disease stage: stage 4 (severe) Qualified Code(s): N18.4 - Chronic kidney disease, stage 4 (severe) (9) Diabetes mellitus Code(s): E11.9 - TYPE 2 DIABETES MELLITUS WITHOUT COMPLICATIONS Qualifiers: Diabetes mellitus complication status: with ophthalmic complications Diabetes mellitus complication detail: with diabetic retinopathy (10) HTN (hypertension) Code(s): I10 - ESSENTIAL (PRIMARY) HYPERTENSION (11) Hx of heart artery stent Code(s): Z95.5 - PRESENCE OF CORONARY ANGIOPLASTY IMPLANT AND GRAFT
--- NOTE | 2017-12-05 11:37 | PN ---
Progress Note, Physician History of Present Illness: Mr. Davila is a 77 yo male (b. [place]) w/ pmh of AMI in Jul of this year with subsequent 5 stents during catheterization (and prior NSTEMI a few years ago, also resulting in PCI), systolic/diastolic CHF, HTN, HLD, IDDM, and known left ventricle thrombus (currently on plavix, ASA, and coumadin) who presents following fall earlier today. Per his , who is with him, he slid out of bed and fell on to his right buttock. Did not experience any LOC or dizziness and describes this as a mechanical fall. He has had increasing falls lately and was recently evaluated for similar fall on right side 11/11/17 in [facility]. - Current Medication List Current Medications: Active Medications Allopurinol (Zyloprim -) 300 mg PO DAILY [facility] Last Admin: 12/05/17 09:24 Dose: Not Given Aspirin (Asa -) 81 mg PO DAILY [facility] Last Admin: 12/05/17 09:23 Dose: 81 mg Calcium Acetate (Phoslo -) 667 mg PO TIDCM [facility] Last Admin: 12/05/17 09:23 Dose: 667 mg Carvedilol (Coreg -) 12.5 mg PO BID [facility] Last Admin: 12/05/17 09:23 Dose: 12.5 mg Clopidogrel Bisulfate (Plavix -) 75 mg PO DAILY [facility] Last Admin: 12/05/17 09:24 Dose: Not Given Docusate Sodium (Colace -) 100 mg PO TID [facility] Last Admin: 12/05/17 05:35 Dose: 100 mg Epoetin Fahad (Epogen -) 10,000 unit IVPUSH ONCE ONE Stop: 12/05/17 06:01 Escitalopram Oxalate (Lexapro -) 5 mg PO HS [facility] Last Admin: 12/04/17 21:45 Dose: 5 mg Folic Acid (Folic Acid -) 1 mg PO DAILY [facility] Last Admin: 12/05/17 09:23 Dose: 1 mg Heparin Sodium (Porcine) (Heparin -) 1,000 unit IVPUSH PRN PRN PRN Reason: Heparin Heparin Sodium (Porcine) (Heparin -) 2,900 unit 40 unit/kg (2900 unit) IVPUSH PRN PRN PRN Reason: For aPTT 35 to 45 seconds Heparin Sodium (Porcine) (Heparin -) 5,900 unit 80 unit/kg (5900 unit) IVPUSH PRN PRN PRN Reason: aPTT <35 seconds Hydralazine HCl (Apresoline -) 25 mg PO BID [facility] Last Admin: 12/05/17 09:23 Dose: 25 mg Heparin Sodium (Porcine) 25, (000 unit/ Sodium Chloride) 500 mls @ 26.37 mls/ hr IV TITR [facility]; Protocol Last Admin: 12/04/17 14:45 Dose: Not Given Sodium Chloride (Normal Saline -) 250 mls @ 3,000 mls/hr IV PRN PRN PRN Reason: Hypotension during Dialysis Stop: 12/05/17 16:09 Insulin Aspart (Novolog Vial Sliding Scale -) 1 vial SQ HS [facility]; Protocol Last Admin: 12/04/17 21:48 Dose: 4 units Insulin Aspart (Novolog Vial Sliding Scale -) 1 vial SQ TIDCM [facility]; Protocol Last Admin: 12/05/17 08:52 Dose: Not Given Insulin Detemir (Levemir Vial) 35 units SQ DAILY@0800 [facility] Last Admin: 12/05/17 08:52 Dose: Not Given Isosorbide Dinitrate (Isordil -) 20 mg PO DAILY [facility] Last Admin: 12/05/17 09:23 Dose: 20 mg Losartan Potassium (Cozaar -) 25 mg PO DAILY [facility] Last Admin: 12/05/17 09:23 Dose: 25 mg Rosuvastatin Calcium (Crestor -) 10 mg PO HS [facility] Last Admin: 12/04/17 21:46 Dose: 10 mg Tamsulosin HCl (Flomax -) 0.4 mg PO [facility] Last Admin: 12/04/17 21:48 Dose: 0.4 mg Torsemide (Demadex -) 80 mg PO DAILY [facility] Last Admin: 12/05/17 09:23 Dose: 80 mg - Objective Vital Signs: Vital Signs Temperature 98.8 F 12/05/17 06:00 Pulse Rate 54 L 12/05/17 06:00 Respiratory Rate 19 12/05/17 06:00 Blood Pressure 117/58 12/05/17 06:00 O2 Sat by Pulse Oximetry (%) 97 12/04/17 21:00 Eyes: Yes: WNL, Conjunctiva Clear, EOM Intact HENT: Yes: WNL, Atraumatic, Normocephalic Neck: Yes: WNL, Supple, Trachea Midline Cardiovascular: Yes: WNL, Regular Rate and Rhythm Respiratory: Yes: WNL, Regular, CTA Bilaterally Gastrointestinal: Yes: WNL, Normal Bowel Sounds Genitourinary: Yes: WNL Musculoskeletal: Yes: WNL Extremities: Yes: WNL Edema: No Integumentary: Yes: WNL Neurological: Yes: WNL, Alert, Oriented ...Motor Strength: WNL Psychiatric: Yes: WNL Labs: CBC, BMP 12/05/17 06:18 12/05/17 06:18 INR, PTT INR 1.42 (0.82-1.09) H 12/04/17 12:35 Assessment/Plan - Problems (1) Acute on chronic systolic and diastolic heart failure, NYHA class 1 Assessment/Plan: No longer with JVD; No CHF on 12/01/17 CXR. TNI < 0.02. On carvedilol, hydralazine+isordil. s/p Permacath; would start ACEI if pt will be on permanent hemodialysis. F/u BUN/Cr, electrolytes, Is and Os, daily weight. 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 Code(s): I50.43 - ACUTE ON CHRONIC COMBINED SYSTOLIC AND DIASTOLIC HRT FAIL (2) Fall Assessment/Plan: Large right LE hip hematoma. Pt has had multiple falls; rhabdomyolysis may have occurred, further compromising pt's renal function. CK now 137. Hb 9.8. Code(s): W19.XXXA - UNSPECIFIED FALL, INITIAL ENCOUNTER Qualifiers: Encounter type: initial encounter Qualified Code(s): W19.XXXA - Unspecified fall, initial encounter (3) Fluid overload Code(s): E87.70 - FLUID OVERLOAD, UNSPECIFIED Qualifiers: Hypervolemia type: unspecified Qualified Code(s): E87.70 - Fluid overload, unspecified (4) Anemia Code(s): D64.9 - ANEMIA, UNSPECIFIED Qualifiers: Anemia type: due to chronic kidney disease Chronic kidney disease stage: stage 4 (severe) Qualified Code(s): N18.4 - Chronic kidney disease, stage 4 ( severe); D63.1 - Anemia in chronic kidney disease (5) Anxiety and depression Code(s): F41.8 - OTHER SPECIFIED ANXIETY DISORDERS (6) BPH (benign prostatic hypertrophy) Code(s): N40.0 - BENIGN PROSTATIC HYPERPLASIA WITHOUT LOWER URINRY TRACT SYMP (7) CVA (cerebral infarction) Code(s): I63.9 - CEREBRAL INFARCTION, UNSPECIFIED Qualifiers: Cerebral infarction mechanism: unspecified mechanism Qualified Code(s): I63.9 - Cerebral infarction, unspecified (8) Diabetes mellitus Code(s): E11.9 - TYPE 2 DIABETES MELLITUS WITHOUT COMPLICATIONS Qualifiers: Diabetes mellitus type: type 2 Diabetes mellitus complication status: with ophthalmic complications Diabetes mellitus complication detail: with diabetic retinopathy (9) HTN (hypertension) Code(s): I10 - ESSENTIAL (PRIMARY) HYPERTENSION (10) Hx of heart artery stent Code(s): Z95.5 - PRESENCE OF CORONARY ANGIOPLASTY IMPLANT AND GRAFT (11) LV (left ventricular) mural thrombus Code(s): [id number] - (12) Renal dysfunction Code(s): N28.9 - DISORDER OF KIDNEY AND URETER, UNSPECIFIED (13) Status post myocardial infarction Code(s): I25.2 - OLD MYOCARDIAL INFARCTION (14) Syncope Code(s): R55 - SYNCOPE AND COLLAPSE (15) Sleep apnea Code(s): G47.30 - SLEEP APNEA, UNSPECIFIED (16) Hyperlipidemia Code(s): E78.5 - HYPERLIPIDEMIA, UNSPECIFIED Qualifiers: Hyperlipidemia type: pure hypercholesterolemia Qualified Code(s): E78.00 - Pure hypercholesterolemia, unspecified; E78.0 - Pure hypercholesterolemia
[2017-12-05] MEDS ORDERED: HEPARIN NA (PORCINE) 5,000 UNITS/ML 1ML VIAL ONE (14:11)
[2017-12-05] MEDS ORDERED: POVIDONE-IODINE OINTMENT 10% - 28.4 GM TUBE ONE (14:11)
[2017-12-05] MEDS ORDERED: LIDOCAINE HCL 1%, 10 MG/ML (20ML VIAL) ONE (14:11)
[2017-12-05] MEDS ORDERED: DESMOPRESSIN ACETATE 4 MCG/ML AMP IVPB ONE ×2 (14:27→17:13)
--- NOTE | 2017-12-05 14:30 | PN ---
Progress Note (short form) - Note Progress Note: Renal follow up for THEE and Volume overlaod Pt seen and examined at the bedside no acute complaints awaiting AVF creation no CP, SOB, Abd pain Vital Signs Temperature 97.8 F 12/05/17 10:00 Pulse Rate 74 12/05/17 10:00 Respiratory Rate 18 12/05/17 10:00 Blood Pressure 124/61 12/05/17 10:00 O2 Sat by Pulse Oximetry (%) 95 12/05/17 09:00 Intake & Output 12/02/17 12/03/17 12/04/17 12/05/17 23:59 23:59 23:59 23:59 Intake Total 210 1043.6 788.6 0 Output Total 2 Balance 208 1043.6 788.6 0 Weight 73.255 kg 74.616 kg 77.111 kg NAD on NC O2 RRR + rales b/l lungs soft NT/ND trace edema in LE CBC, BMP 12/05/17 06:18 12/05/17 06:18 Current Medications Allopurinol (Zyloprim -) 300 mg PO DAILY [facility] Last Admin: 12/05/17 09:24 Dose: Not Given Aspirin (Asa -) 81 mg PO DAILY [facility] Last Admin: 12/05/17 09:23 Dose: 81 mg Calcium Acetate (Phoslo -) 667 mg PO TIDCM [facility] Last Admin: 12/05/17 13:22 Dose: Not Given Carvedilol (Coreg -) 12.5 mg PO BID [facility] Last Admin: 12/05/17 09:23 Dose: 12.5 mg Clopidogrel Bisulfate (Plavix -) 75 mg PO DAILY [facility] Last Admin: 12/05/17 09:24 Dose: Not Given Desmopressin Acetate (Ddavp Injection -) 20 mcg IVPB ONCE ONE Stop: 12/05/17 14:28 Docusate Sodium (Colace -) 100 mg PO TID [facility] Last Admin: 12/05/17 05:35 Dose: 100 mg Epoetin Fahad (Epogen -) 10,000 unit IVPUSH ONCE ONE Stop: 12/05/17 06:01 Escitalopram Oxalate (Lexapro -) 5 mg PO HS [facility] Last Admin: 12/04/17 21:45 Dose: 5 mg Folic Acid (Folic Acid -) 1 mg PO DAILY [facility] Last Admin: 12/05/17 09:23 Dose: 1 mg Heparin Sodium (Porcine) (Heparin -) 1,000 unit IVPUSH PRN PRN PRN Reason: Heparin Heparin Sodium (Porcine) (Heparin -) 2,900 unit 40 unit/kg (2900 unit) IVPUSH PRN PRN PRN Reason: For aPTT 35 to 45 seconds Heparin Sodium (Porcine) (Heparin -) 5,900 unit 80 unit/kg (5900 unit) IVPUSH PRN PRN PRN Reason: aPTT <35 seconds Hydralazine HCl (Apresoline -) 25 mg PO BID [facility] Last Admin: 12/05/17 09:23 Dose: 25 mg Heparin Sodium (Porcine) 25, (000 unit/ Sodium Chloride) 500 mls @ 26.37 mls/ hr IV TITR [facility]; Protocol Last Admin: 12/04/17 14:45 Dose: Not Given Sodium Chloride (Normal Saline -) 250 mls @ 3,000 mls/hr IV PRN PRN PRN Reason: Hypotension during Dialysis Stop: 12/05/17 16:09 Insulin Aspart (Novolog Vial Sliding Scale -) 1 vial SQ HS [facility]; Protocol Last Admin: 12/04/17 21:48 Dose: 4 units Insulin Aspart (Novolog Vial Sliding Scale -) 1 vial SQ TIDCM [facility]; Protocol Last Admin: 12/05/17 11:41 Dose: Not Given Insulin Detemir (Levemir Vial) 35 units SQ DAILY@0800 [facility] Last Admin: 12/05/17 08:52 Dose: Not Given Isosorbide Dinitrate (Isordil -) 20 mg PO DAILY [facility] Last Admin: 12/05/17 09:23 Dose: 20 mg Losartan Potassium (Cozaar -) 25 mg PO DAILY [facility] Last Admin: 12/05/17 09:23 Dose: 25 mg Rosuvastatin Calcium (Crestor -) 10 mg PO HS [facility] Last Admin: 12/04/17 21:46 Dose: 10 mg Tamsulosin HCl (Flomax -) 0.4 mg PO HS [facility] Last Admin: 12/04/17 21:48 Dose: 0.4 mg Torsemide (Demadex -) 80 mg PO DAILY [facility] Last Admin: 12/05/17 09:23 Dose: 80 mg 77 year old gentleman with PMhx of CAD s/p OR, CHF, Hypertension, IDDM, HLD, CKD , with recent THEE who presented from home with fall and found to have THEE and fluid overlaod/CHF. #THEE on CKD in setting of volume overload now ESRD with dialysis dependence #Acute CHF #Anemia #CAD awaiting aVF creation for dialysis following on Heparin gtt for ventricular thrombus continue ARB Renal diet, 1.2 L fluid restriction will continue AMY with HD Florencio Del Cid DO
[2017-12-05] MEDS ORDERED: PROPOFOL 20 ML ONE (14:48)
[2017-12-05] MEDS ORDERED: MIDAZOLAM HCL 2 MG/2 ML SINGLE DOSE VIAL ONE ×2 (14:48)
[2017-12-05] MEDS ORDERED: ceFAZolin SODIUM 1 GM VIAL IVPB ONE (15:00)
[2017-12-05] MEDS ORDERED: ceFAZolin SODIUM 1 GM VIAL ONE (15:15)
[2017-12-05] MEDS ORDERED: ePHEDrine SULFATE 50 MG/1 ML AMPULE ONE (15:19)
[2017-12-05] MEDS ORDERED: ONDANSETRON 4 MG/2 ML VIAL IVPUSH PRN ×2 (16:41→17:13)
[2017-12-05] MEDS ORDERED: oxyCODONE HCL 5 MG TABLET PO PRN ×2 (16:41→17:13)
--- NOTE | 2017-12-05 16:43 | OP ---
Operative Note - Note: Operative Date: 12/05/17 Pre-Operative Diagnosis: ESRD Operation: Creation of left cephalic vein fistula Post-Operative Diagnosis: Same as Pre-op Surgeon: Walter Huff Anesthesia: Fractional Estimated Blood Loss (mls): 30 Operative Report Dictated: Yes
[2017-12-05] MEDS ORDERED: HEPARIN NA (PORCINE) 5,000 UNITS/ML 1ML VIAL IVPUSH PRN ×3 (16:50→22:49)
--- NOTE | 2017-12-05 17:27 | PN ---
Progress Note (short form) - Note Progress Note: ####################### cover note for Dr Hess Current Medications Allopurinol (Zyloprim -) 300 mg PO DAILY [facility] Aspirin (Asa -) 81 mg PO DAILY [facility] Calcium Acetate (Phoslo -) 667 mg PO TIDCM [facility] Carvedilol (Coreg -) 12.5 mg PO BID [facility] Clopidogrel Bisulfate (Plavix -) 75 mg PO DAILY [facility] Desmopressin Acetate (Ddavp Injection -) 20 mcg IVPB ONCE ONE Stop: 12/05/17 17:14 Docusate Sodium (Colace -) 100 mg PO TID [facility] Epoetin Fahad (Epogen -) 10,000 unit IVPUSH ONCE ONE Stop: 12/05/17 17:14 Escitalopram Oxalate (Lexapro -) 5 mg PO HS [facility] Fentanyl (Sublimaze Injection -) 25 mcg IVPUSH [id number] PRN PRN Reason: PAIN-PACU ORDER X 4 DOSES ONLY Folic Acid (Folic Acid -) 1 mg PO DAILY [facility] Heparin Sodium (Porcine) (Heparin -) 5,000 unit IVPUSH PRN PRN PRN Reason: Heparin Heparin Sodium (Porcine) (Heparin -) 1,000 unit IVPUSH PRN PRN PRN Reason: Heparin Heparin Sodium (Porcine) (Heparin -) 5,000 unit IVPUSH PRN PRN PRN Reason: Heparin Hydralazine HCl (Apresoline -) 25 mg PO BID [facility] Heparin Sodium/Dextrose (Heparin Infusion -) 25,000 units in 500 mls @ 16 mls/ hr IVPB TITR [facility]; Protocol Sodium Chloride (Normal Saline -) 250 mls @ 3,000 mls/hr IV PRN PRN PRN Reason: Hypotension during Dialysis Insulin Aspart (Novolog Vial Sliding Scale -) 1 vial SQ HS [facility]; Protocol Insulin Aspart (Novolog Vial Sliding Scale -) 1 vial SQ TIDCM [facility]; Protocol Insulin Detemir (Levemir Vial) 35 units SQ DAILY@0800 [facility] Isosorbide Dinitrate (Isordil -) 20 mg PO DAILY [facility] Losartan Potassium (Cozaar -) 25 mg PO DAILY [facility] Ondansetron HCl (Zofran Injection) 4 mg IVPUSH Q6H PRN PRN Reason: NAUSEA AND/OR VOMITING Oxycodone HCl (Roxicodone -) 5 mg PO Q4H PRN PRN Reason: PAIN LEVEL 1-5 Stop: 12/06/17 16:40 Rosuvastatin Calcium (Crestor -) 10 mg PO HS [facility] Tamsulosin HCl (Flomax -) 0.4 mg PO HS [facility] Torsemide (Demadex -) 80 mg PO DAILY [facility] Laboratory Results - last 24 hr 12/04/1718 12/05/17 17:28 21:44 06:18 WBC 6.0 RBC 3.56 L Hgb 9.1 L Hct 28.5 L MCV 80.2 MCH 25.5 L MCHC 31.8 L RDW 22.2 H Plt Count 102 L MPV 10.8 PTT (Actin FS) Sodium Potassium Chloride Carbon Dioxide Anion Gap BUN Creatinine Creat Clearance w eGFR POC Glucometer 393 367 Random Glucose Uric Acid Calcium Total Bilirubin AST ALT Alkaline Phosphatase Total Protein Albumin TSH 12/05/17 12/05/17 12/05/17 06:18 06:18 08:21 WBC RBC Hgb Hct MCV MCH MCHC RDW Plt Count MPV PTT (Actin FS) 42.2 H D Sodium 134 L Potassium 4.4 Chloride 98 Carbon Dioxide 25 Anion Gap 11 BUN 66 H D Creatinine 2.5 H D Creat Clearance w eGFR 25.10 POC Glucometer 175 Random Glucose 140 H D Uric Acid 4.1 D Calcium 8.3 L Total Bilirubin 0.5 AST 18 ALT 21 Alkaline Phosphatase 86 D Total Protein 5.8 L Albumin 2.8 L TSH 13.70 H D 12/05/17 11:19 WBC RBC Hgb Hct MCV MCH MCHC RDW Plt Count MPV PTT (Actin FS) Sodium Potassium Chloride Carbon Dioxide Anion Gap BUN Creatinine Creat Clearance w eGFR POC Glucometer 202 Random Glucose Uric Acid Calcium Total Bilirubin AST ALT Alkaline Phosphatase Total Protein Albumin TSH Vital Signs Temperature 98.2 F 12/05/17 16:36 Pulse Rate 75 12/05/17 17:05 Respiratory Rate 16 12/05/17 17:05 Blood Pressure 126/63 12/05/17 17:05 O2 Sat by Pulse Oximetry (%) 100 12/05/17 17:05 CC: none ````````````````````````````` eyes--eomi; anicteric lungs--bilat decreased BS heart--slow abd--soft chest--with Rt sided catheter ext--no pitting edema neuro--groggy post-op ``````````````````````````````````````` Summ > hypothyroid--based on high TSH (which was mildly high last month); will get FT4; see endocrine note > CHF--acute on chronic; diast & syst with RF: PLAN: cont cardiac meds; on HD to remove fluids; watch chems > DM--BS fluctuating; has narrow threshold for sudden hypoglycemia; cont current insulin reg; see Endocrine note > RF--AVF created > Long Term use of a/c--and antithrombotics; has LV thrombus; high risk for embolism; resume IV Heparin; watch PLT > CAD--s/p stenting; on a/c > anemia--watch H/h; high risk of bleeding > Uricemia--on allopurinol ~~~~~~~~~~~~~~~~~ dr Jean....................for Dr Hess
--- NOTE | 2017-12-05 18:30 | OP ---
DATE OF OPERATION: 12/05/2017 PREOPERATIVE DIAGNOSIS: End-stage renal disease. POSTOPERATIVE DIAGNOSIS: End-stage renal disease. PROCEDURE: Creation of left cephalic vein fistula. SURGEON: Walter Fernandez DO ANESTHESIA: Fractional. BLOOD LOSS: 30 mL The patient is a 77-year-old male who needs permanent dialysis access. He had preoperative vein mapping showing that he has a good cephalic vein in his left arm. Patient was consented for the procedure, understanding all risks, benefits, and alternatives, was then taken to the operating room. Once in the operating room, he was laid on the operating room table in a supine manner. The area of the left arm was prepped and draped in a sterile surgical manner. We then went ahead and used, under ultrasound guidance, marked our cephalic vein and our brachial artery above the antecubital fossa, and a transverse line was drawn with a skin marker. We then went ahead and injected 10 mL of lidocaine 1% in the area. We then took our 15 blade and made a 6-cm incision. Bovie electrocautery used to control hemostasis, and we were able to get down through all the subcutaneous tissue. We then came down to our cephalic vein. Cephalic vein was dissected anteriorly and posteriorly. All branches were ligated using 4-0 silk. We then went medially and went to the bicipital aponeurosis using our Metzenbaum scissors and dissected out our brachial artery. Brachial artery was dissected anteriorly and posteriorly, and vessel loops were placed proximally and distally. Next, 5000 units of IV heparin were administered to the patient. We then ligated the vein distally using 2-0 silk. We then used a 4-Slovenian feeding tube, and the feeding tube went up into the cephalic vein. There was good backflow in the vein, and the vein dilated up appropriately. We then went ahead and transposed the vein over to the artery. Using Bro scissors, we made a 6-mm venotomy on the vein. After 3 minutes of being on 5000 units of IV heparin, we got distal and proximal control on our artery. Using a 15 blade, we made an arteriotomy extending to 7 mm using Bro scissors. Next, 6-0 Prolene double-arm was then used, and stay sutures were placed. We then used 6-0 Prolene double-arm, and we went outside in on the vein and inside out on the artery and ran the stitch around, forming knots between the artery and the vein. Once completed, we opened the distal artery first, then the proximal artery, and there was a good thrill in our AV fistula. The wound was well irrigated. Surgicel was placed. Next, 3-0 Vicryl was used, and the subcutaneous tissue was approximated in interrupted manner. Skin was closed with skin jesus. Area was wet and dried; 4 x 4 and Tegaderm were placed. The patient tolerated the procedure with no complication. Patient transferred to the PACU in stable condition. WALTER FERNANDEZ DO [id number]
[2017-12-05] MEDS ORDERED: DESMOPRESSIN ACETATE 20 MCG in SODIUM CHLORIDE 50 ML IVPB ONE (18:45)
[2017-12-05] MEDS ORDERED: SODIUM CHLORIDE 250 ML IV PRN (19:36)
[2017-12-05] MEDS ORDERED: EPOETIN ALFA 10,000 UNIT/1 ML VIAL IVPUSH ONE (19:45)
[2017-12-05] MEDS: HEPARIN INFUSION - 25,000 UNITS/500 ML INFUS.BAG IVPB SCH (22:09)
[2017-12-05] MEDS: TAMSULOSIN HCL 0.4 MG CAP.ER.24H (FP) PO SCH (22:10)
[2017-12-05] MEDS: ROSUVASTATIN CA 10 MG TABLET (FP) PO SCH (22:11)
[2017-12-05] MEDS: ESCITALOPRAM OXALATE 10 MG TABLET (FP) PO SCH (22:11)
[2017-12-06] MEDS: DOCUSATE SODIUM 100 MG CAPSULE (FP) PO SCH ×3 (06:35→22:19)
[2017-12-06 07:13] LABS: HEMATOCRIT 30.4 % (35.4-49); HEMOGLOBIN 9.5 GM/dL (11.7-16.9); MCH 25.3 pg (25.7-33.7); MCHC 31.1 g/dl (32.0-35.9); MEAN CELL VOLUME 81.3 fl (80-96); MEAN PLT VOLUME 10.4 fl (7.5-11.1); PLATELET COUNT 102 K/MM3 (134-434); RBC 3.74 M/mm3 (4.00-5.60); RDW 24.1 % (11.9-15.9); WHITE BLOOD COUNT 4.5 K/mm3 (4.0-10.0)
[2017-12-06 08:28] LABS: CHLORIDE 102 mmol/L (98-107); POTASSIUM 4.1 mmol/L (3.5-5.1); SODIUM 140 mmol/L (136-145)
[2017-12-06 08:47] LABS: ANION GAP 9 (8-16); BLOOD UREA NITROGEN 33 mg/dL (7-18); CALCIUM 8.2 mg/dL (8.5-10.1); CO2 29 mmol/L (21-32); GLUCOSE,RANDOM 274 mg/dL (74-106)
--- NOTE | 2017-12-06 08:53 | PN ---
Progress Note, Physician Chief Complaint: Weekend coverage for Chris TELE: NSR with periods frequent APCS - Current Medication List Current Medications: Active Medications Allopurinol (Zyloprim -) 300 mg PO DAILY [facility] Aspirin (Asa -) 81 mg PO DAILY [facility] Calcium Acetate (Phoslo -) 667 mg PO TIDCM [facility] Last Admin: 12/05/17 18:58 Dose: 667 mg Carvedilol (Coreg -) 12.5 mg PO BID [facility] Last Admin: 12/05/17 22:10 Dose: 12.5 mg Clopidogrel Bisulfate (Plavix -) 75 mg PO DAILY [facility] Docusate Sodium (Colace -) 100 mg PO TID [facility] Last Admin: 12/06/17 06:35 Dose: 100 mg Escitalopram Oxalate (Lexapro -) 5 mg PO HS [facility] Last Admin: 12/05/17 22:11 Dose: 5 mg Folic Acid (Folic Acid -) 1 mg PO DAILY [facility] Heparin Sodium (Porcine) (Heparin -) 5,000 unit IVPUSH PRN PRN PRN Reason: Heparin Heparin Sodium (Porcine) (Heparin -) 1,000 unit IVPUSH PRN PRN PRN Reason: Heparin Heparin Sodium (Porcine) (Heparin -) 5,000 unit IVPUSH PRN PRN PRN Reason: Heparin Hydralazine HCl (Apresoline -) 25 mg PO BID [facility] Last Admin: 12/05/17 22:10 Dose: 25 mg Heparin Sodium/Dextrose (Heparin Infusion -) 25,000 units in 500 mls @ 16 mls/ hr IVPB TITR [facility]; Protocol Last Admin: 12/05/17 22:09 Dose: 800 units/hr, 16 mls/hr Sodium Chloride (Normal Saline -) 250 mls @ 3,000 mls/hr IV PRN PRN PRN Reason: Hypotension during Dialysis Insulin Aspart (Novolog Vial Sliding Scale -) 1 vial SQ HS [facility]; Protocol Last Admin: 12/05/17 23:20 Dose: Not Given Insulin Aspart (Novolog Vial Sliding Scale -) 1 vial SQ TIDCM [facility]; Protocol Last Admin: 12/05/17 17:59 Dose: 10 unit Insulin Detemir (Levemir Vial) 35 units SQ DAILY@0800 [facility] Isosorbide Dinitrate (Isordil -) 20 mg PO DAILY [facility] Losartan Potassium (Cozaar -) 25 mg PO DAILY [facility] Ondansetron HCl (Zofran Injection) 4 mg IVPUSH Q6H PRN PRN Reason: NAUSEA AND/OR VOMITING Oxycodone HCl (Roxicodone -) 5 mg PO Q4H PRN PRN Reason: PAIN LEVEL 1-5 Stop: 12/06/17 16:40 Rosuvastatin Calcium (Crestor -) 10 mg PO [facility] Last Admin: 12/05/17 22:11 Dose: 10 mg Tamsulosin HCl (Flomax -) 0.4 mg PO [facility] Last Admin: 12/05/17 22:10 Dose: 0.4 mg Torsemide (Demadex -) 80 mg PO DAILY [facility] Warfarin Sodium (Coumadin -) 7.5 mg PO DAILY@1800 [facility] - Objective Vital Signs: Vital Signs Temperature 98.2 F 12/06/17 07:09 Pulse Rate 86 12/06/17 07:09 Respiratory Rate 18 12/06/17 07:09 Blood Pressure 108/54 12/06/17 07:09 O2 Sat by Pulse Oximetry (%) 100 12/05/17 21:00 Constitutional: Yes: Calm Eyes: Yes: Conjunctiva Clear Cardiovascular: Yes: Regular Rate and Rhythm Respiratory: Yes: Other (decreased basilar breath sounds) Gastrointestinal: Yes: Soft Edema: No Neurological: Yes: Alert, Oriented Labs: CBC, BMP 12/06/17 06:10 12/06/17 06:10 INR, PTT INR 1.42 (0.82-1.09) H 12/04/17 12:35 - ....Imaging EKG: Image Reviewed Assessment/Plan - Problems (1) Acute on chronic systolic and diastolic heart failure, NYHA class 1 Assessment/Plan: Clinically improved from admission On carvedilol, hydralazine+isordil, Losartan Is and Os, daily weight. Regular HD Code(s): I50.43 - ACUTE ON CHRONIC COMBINED SYSTOLIC AND DIASTOLIC HRT FAIL (2) Fall Assessment/Plan: Large right LE hip hematoma. Pt has had multiple falls; rhabdomyolysis may have occurred, further compromising pt's renal function. CK now 137. Hb 9.8. Code(s): W19.XXXA - UNSPECIFIED FALL, INITIAL ENCOUNTER Qualifiers: Encounter type: initial encounter Qualified Code(s): W19.XXXA - Unspecified fall, initial encounter (3) Fluid overload Code(s): E87.70 - FLUID OVERLOAD, UNSPECIFIED Qualifiers: Hypervolemia type: unspecified Qualified Code(s): E87.70 - Fluid overload, unspecified (4) Anemia Code(s): D64.9 - ANEMIA, UNSPECIFIED Qualifiers: Anemia type: due to chronic kidney disease Chronic kidney disease stage: stage 4 (severe) Qualified Code(s): N18.4 - Chronic kidney disease, stage 4 ( severe); D63.1 - Anemia in chronic kidney disease (5) Anxiety and depression Code(s): F41.8 - OTHER SPECIFIED ANXIETY DISORDERS (6) BPH (benign prostatic hypertrophy) Code(s): N40.0 - BENIGN PROSTATIC HYPERPLASIA WITHOUT LOWER URINRY TRACT SYMP (7) CVA (cerebral infarction) Code(s): I63.9 - CEREBRAL INFARCTION, UNSPECIFIED Qualifiers: Cerebral infarction mechanism: unspecified mechanism Qualified Code(s): I63.9 - Cerebral infarction, unspecified (8) Diabetes mellitus Code(s): E11.9 - TYPE 2 DIABETES MELLITUS WITHOUT COMPLICATIONS Qualifiers: Diabetes mellitus type: type 2 Diabetes mellitus complication status: with ophthalmic complications Diabetes mellitus complication detail: with diabetic retinopathy (9) HTN (hypertension) Code(s): I10 - ESSENTIAL (PRIMARY) HYPERTENSION (10) Hx of heart artery stent Code(s): Z95.5 - PRESENCE OF CORONARY ANGIOPLASTY IMPLANT AND GRAFT ON ASA and Plavix (11) LV (left ventricular) mural thrombus Code(s): [id number] - On IV heparin gtts (12) Renal dysfunction Code(s): N28.9 - DISORDER OF KIDNEY AND URETER, UNSPECIFIED (13) Status post myocardial infarction Code(s): I25.2 - OLD MYOCARDIAL INFARCTION (14) Syncope Code(s): R55 - SYNCOPE AND COLLAPSE (15) Sleep apnea Code(s): G47.30 - SLEEP APNEA, UNSPECIFIED (16) Hyperlipidemia Code(s): E78.5 - HYPERLIPIDEMIA, UNSPECIFIED Qualifiers: Hyperlipidemia type: pure hypercholesterolemia Qualified Code(s): E78.00 - Pure hypercholesterolemia, unspecified; E78.0 - Pure hypercholesterolemia
[2017-12-06] MEDS: CALCIUM ACETATE 667 MG CAPSULE (FP) PO SCH ×3 (09:45→17:38)
[2017-12-06] MEDS: INSULIN (LEVEMIR) 100 UNITS/ML UNITS SQ SCH (09:45)
[2017-12-06] MEDS: INSULIN SLIDING SCALE (NOVOLOG) 1 VIAL SQ SCH ×4 (09:46→22:19)
[2017-12-06] MEDS: TORSEMIDE 20 MG TABLET (FP) PO SCH (09:47)
[2017-12-06] MEDS: hydrALAZINE HCL 25 MG TABLET (FP) PO SCH ×2 (09:47→22:19)
[2017-12-06] MEDS: ALLOPURINOL 300 MG TABLET (FP) PO SCH (09:47)
[2017-12-06] MEDS: CLOPIDOGREL BISULFATE 75 MG TABLET (FP) PO SCH (09:47)
[2017-12-06] MEDS: ASPIRIN 81 MG CHEWABLE TABLETS PO SCH (09:48)
[2017-12-06] MEDS: CARVEDILOL 12.5 MG TABLET (FP) PO SCH ×2 (09:48→22:18)
[2017-12-06] MEDS: HEPARIN INFUSION - 25,000 UNITS/500 ML INFUS.BAG IVPB SCH ×3 (09:51→23:55)
[2017-12-06] MEDS ORDERED: INSULIN (NOVOLOG) ASPART 100 UNITS/ML 10ML VIAL ONE (09:56)
--- NOTE | 2017-12-06 10:59 | PN ---
Progress Note, Physician Chief Complaint: The patient was seen in his room. Sitting by the bed side No chest pain, No SOB, constipated. Had placement of AVF yesterday. Good bruit heard. History of Present Illness: 77 year old gentleman with PMhx of CAD s/p [place], CHF, Hypertension, IDDM, HLD, CKD , with recent THEE who presented from home with fall and found to have THEE and fluid overlaod/CHF. On HD through [facility]. AVF placed yesterday - Current Medication List Current Medications: Active Medications Allopurinol (Zyloprim -) 300 mg PO DAILY [facility] Last Admin: 12/06/17 09:47 Dose: 300 mg Aspirin (Asa -) 81 mg PO DAILY [facility] Last Admin: 12/06/17 09:48 Dose: 81 mg Calcium Acetate (Phoslo -) 667 mg PO TIDCM [facility] Last Admin: 12/06/17 09:45 Dose: 667 mg Carvedilol (Coreg -) 12.5 mg PO BID [facility] Last Admin: 12/06/17 09:48 Dose: 12.5 mg Clopidogrel Bisulfate (Plavix -) 75 mg PO DAILY [facility] Last Admin: 12/06/17 09:47 Dose: 75 mg Docusate Sodium (Colace -) 100 mg PO TID [facility] Last Admin: 12/06/17 06:35 Dose: 100 mg Escitalopram Oxalate (Lexapro -) 5 mg PO HS [facility] Last Admin: 12/05/17 22:11 Dose: 5 mg Folic Acid (Folic Acid -) 1 mg PO DAILY [facility] Heparin Sodium (Porcine) (Heparin -) 5,000 unit IVPUSH PRN PRN PRN Reason: Heparin Heparin Sodium (Porcine) (Heparin -) 1,000 unit IVPUSH PRN PRN PRN Reason: Heparin Last Admin: 12/06/17 09:52 Dose: 1,000 unit Heparin Sodium (Porcine) (Heparin -) 5,000 unit IVPUSH PRN PRN PRN Reason: Heparin Hydralazine HCl (Apresoline -) 25 mg PO BID [facility] Last Admin: 12/06/17 09:47 Dose: 25 mg Heparin Sodium/Dextrose (Heparin Infusion -) 25,000 units in 500 mls @ 16 mls/ hr IVPB TITR [facility]; Protocol Last Admin: 12/06/17 09:51 Dose: 900 units/hr, 18 mls/hr Sodium Chloride (Normal Saline -) 250 mls @ 3,000 mls/hr IV PRN PRN PRN Reason: Hypotension during Dialysis Insulin Aspart (Novolog Vial Sliding Scale -) 1 vial SQ HS [facility]; Protocol Last Admin: 12/05/17 23:20 Dose: Not Given Insulin Aspart (Novolog Vial Sliding Scale -) 1 vial SQ TIDCM [facility]; Protocol Last Admin: 12/06/17 09:46 Dose: 10 unit Insulin Detemir (Levemir Vial) 35 units SQ DAILY@0800 [facility] Last Admin: 12/06/17 09:45 Dose: 35 units Isosorbide Dinitrate (Isordil -) 20 mg PO DAILY [facility] Losartan Potassium (Cozaar -) 25 mg PO DAILY [facility] Ondansetron HCl (Zofran Injection) 4 mg IVPUSH Q6H PRN PRN Reason: NAUSEA AND/OR VOMITING Oxycodone HCl (Roxicodone -) 5 mg PO Q4H PRN PRN Reason: PAIN LEVEL 1-5 Stop: 12/06/17 16:40 Rosuvastatin Calcium (Crestor -) 10 mg PO [facility] Last Admin: 12/05/17 22:11 Dose: 10 mg Tamsulosin HCl (Flomax -) 0.4 mg PO [facility] Last Admin: 12/05/17 22:10 Dose: 0.4 mg Torsemide (Demadex -) 80 mg PO DAILY [facility] Last Admin: 12/06/17 09:47 Dose: 80 mg Warfarin Sodium (Coumadin -) 7.5 mg PO DAILY@1800 [facility] - Objective Vital Signs: Vital Signs Temperature 98.2 F 12/06/17 07:09 Pulse Rate 86 12/06/17 07:09 Respiratory Rate 18 12/06/17 07:09 Blood Pressure 108/54 12/06/17 07:09 O2 Sat by Pulse Oximetry (%) 100 12/05/17 21:00 Constitutional: Yes: Anxious HENT: Yes: Atraumatic Neck: Yes: Trachea Midline Cardiovascular: Yes: Pulse Irregular, S1, S2 Respiratory: Yes: CTA Bilaterally, Diminished, Rales Gastrointestinal: Yes: Normal Bowel Sounds, Soft, Distention Genitourinary: No: CVA Tenderness - Left, CVA Tenderness - Right Edema: No Labs: CBC, BMP 12/06/17 06:10 12/06/17 06:10 INR, PTT INR 1.42 (0.82-1.09) H 12/04/17 12:35 Problem List - Problems (1) ESRD (end stage renal disease) on dialysis Code(s): N18.6 - END STAGE RENAL DISEASE; Z99.2 - DEPENDENCE ON RENAL DIALYSIS (2) Anemia in CKD (chronic kidney disease) Code(s): N18.9 - CHRONIC KIDNEY DISEASE, UNSPECIFIED; D63.1 - ANEMIA IN CHRONIC KIDNEY DISEASE Assessment/Plan 77 year old gentleman with PMhx of CAD s/p [place], CHF, Hypertension, IDDM, HLD, CKD , with recent THEE who presented from home with fall and found to have THEE and fluid overlaod/CHF superimposed on advanced CKD. The patient has EDRD now, and id dialysis dependent. The chances of any meaningful renal recovery is remote. Has a ventricular thrombus. A/C in progress. AVF with good bruit. Permacath in place, and with no signs of infection. Had uneventful HD yesterday. Next dialysis planned for Friday. Outpatient HD arrangements in progress at [facility]. Full A/c in progress. Aimee Swan MD
--- NOTE | 2017-12-06 12:08 | PN ---
Progress Note (short form) - Note Progress Note: C/O pain at AV fistula site in left arm Blood sugar better yesterday Vital Signs Period Temp Pulse Resp BP Sys/Simons Pulse Ox Last 24 Hr 97 F-98.5 F 62-90 12-20 99-143/46-76 100-100 PE:AOx3 Neck: supple, No JVD HEENT: PERRL EOMI Lungs: b/L basal crackles Abd: Benign CVS: S1s2 Ext: +Edema Neuro: No focal deficit CMP Sodium 140 mmol/L (136-145) 12/06/17 06:10 Potassium 4.1 mmol/L (3.5-5.1) 12/06/17 06:10 Chloride 102 mmol/L (98-107) 12/06/17 06:10 Carbon Dioxide 29 mmol/L (21-32) 12/06/17 06:10 Anion Gap 9 (8-16) 12/06/17 06:10 BUN 33 mg/dL (7-18) H D 12/06/17 06:10 Creatinine 2.0 mg/dL (0.7-1.3) H 12/06/17 06:10 Creat Clearance w eGFR 25.10 (>60) 12/05/17 06:18 POC Glucometer 280 UNITS (80-120) 12/06/17 08:43 Random Glucose 274 mg/dL (74-106) H D 12/06/17 06:10 Uric Acid 4.1 mg/dL (2.6-7.2) D 12/05/17 06:18 Calcium 8.2 mg/dL (8.5-10.1) L 12/06/17 06:10 Phosphorus 3.7 mg/dL (2.5-4.9) D 12/05/17 19:45 Magnesium 2.5 mg/dL (1.8-2.4) H 11/29/17 07:30 Iron 43 ug/dL (38-169) 11/25/17 15:56 TIBC 300 ug/dL (250-450) 11/25/17 15:56 Iron Saturation 14 % (15-55) L 11/25/17 15:56 Ferritin 51.426 ng/ml (16.4-293.9) 11/25/17 15:56 Total Bilirubin 0.5 mg/dL (0.2-1.0) 12/05/17 06:18 AST 18 U/L (15-37) 12/05/17 06:18 ALT 21 U/L (12-78) 12/05/17 06:18 Alkaline Phosphatase 86 U/L (45-117) D 12/05/17 06:18 Creatine Kinase 129 IU/L (39-308) 11/21/17 11:26 Troponin I < 0.02 ng/ml (0.00-0.05) D 11/21/17 11:26 B-Natriuretic Peptide 7918.00 pg/ml (5-450) H 11/21/17 11:30 Total Protein 5.8 g/dl (6.4-8.2) L 12/05/17 06:18 Albumin 2.8 g/dl (3.4-5.0) L 12/05/17 06:18 TSH 13.70 uIU/ml (0.358-3.74) H D 12/05/17 06:18 Free T4 0.95 ng/dl (0.76-1.16) 11/26/17 06:00 Current Medications Generic Name Dose Route Start Last Admin Trade Name Freq PRN Reason Stop Dose Admin Allopurinol 300 mg 12/06/17 10:00 12/06/17 09:47 Zyloprim - PO 300 mg DAILY [facility] Administration Aspirin 81 mg 12/06/17 10:00 12/06/17 09:48 Asa - PO 81 mg DAILY [facility] Administration Calcium Acetate 667 mg 12/05/17 17:30 12/06/17 09:45 Phoslo - PO 667 mg TIDCM [facility] Administration Carvedilol 12.5 mg 12/05/17 22:00 12/06/17 09:48 Coreg - PO 12.5 mg BID [facility] Administration Clopidogrel Bisulfate 75 mg 12/06/17 10:00 12/06/17 09:47 Plavix - PO 75 mg DAILY [facility] Administration Docusate Sodium 100 mg 12/05/17 22:00 12/06/17 06:35 Colace - PO 100 mg TID [facility] Administration Escitalopram Oxalate 5 mg 12/05/17 22:00 12/05/17 22:11 Lexapro - PO 5 mg HS [facility] Administration Folic Acid 1 mg 12/06/17 10:00 Folic Acid - PO DAILY [facility] Heparin Sodium (Porcine) 5,000 unit 12/05/17 22:49 Heparin - IVPUSH PRN PRN Heparin Heparin Sodium (Porcine) 1,000 unit 12/05/17 16:50 12/06/17 09:52 Heparin - IVPUSH 1,000 unit PRN PRN Administration Heparin Heparin Sodium (Porcine) 5,000 unit 12/05/17 16:50 Heparin - IVPUSH PRN PRN Heparin Hydralazine HCl 25 mg 12/05/17 22:00 12/06/17 09:47 Apresoline - PO 25 mg BID [facility] Administration Heparin Sodium/Dextrose 25,000 units in 500 mls @ 16 mls/hr 12/05/17 22:00 09:51 Heparin Infusion - IVPB 900 units/hr TITR [facility] 18 mls/hr Administration Protocol 800 UNITS/HR Sodium Chloride 250 mls @ 3,000 mls/hr 12/05/17 19:36 Normal Saline - IV PRN PRN Hypotension during Dialysis Insulin Aspart 1 vial 12/05/17 22:00 12/05/17 23:20 Novolog Vial Sliding Scale - SQ Not Given HS [facility] Protocol Insulin Aspart 1 vial 12/05/17 17:30 12/06/17 09:46 Novolog Vial Sliding Scale - SQ 10 unit TIDCM [facility] Administration Protocol Insulin Detemir 35 units 12/06/17 08:00 12/06/17 09:45 Levemir Vial SQ 35 units DAILY@0800 [facility] Administration Isosorbide Dinitrate 20 mg 12/06/17 10:00 Isordil - PO DAILY [facility] Losartan Potassium 25 mg 12/06/17 10:00 Cozaar - PO DAILY [facility] Ondansetron HCl 4 mg 12/05/17 17:13 Zofran Injection IVPUSH Q6H PRN NAUSEA AND/OR VOMITING Oxycodone HCl 5 mg 12/05/17 17:13 Roxicodone - PO 12/06/17 16:40 Q4H PRN PAIN LEVEL 1-5 Rosuvastatin Calcium 10 mg 12/05/17 22:00 12/05/17 22:11 Crestor - PO 10 mg HS [facility] Administration Tamsulosin HCl 0.4 mg 12/05/17 22:00 12/05/17 22:10 Flomax - PO 0.4 mg HS [facility] Administration Torsemide 80 mg 12/06/17 10:00 12/06/17 09:47 Demadex - PO 80 mg DAILY [facility] Administration Warfarin Sodium 7.5 mg 12/06/17 18:00 Coumadin - PO DAILY@1800 [facility] A/P Acute on Chronic Renal Failure requiring HD Acute on Chronic Systolic/Diastolic Heart Failure Volume Overload DM uncontrolled ?Hypothyroidism: TSH 13.7 now was 5.99 on 11/21/17 CAD LV Thrombus HTN Hyperlipidemia IV diuretics IV Heparin S/P AV fistula Continue Levemir 35 units daily in the morning, didn't get any yesterday Continue Novolog Coverage, to be given only once food is in the room and pt is ready to eat. Discussed with nursing staff. Repeat TFT next week, No LT4 replacement for now Will F/U Problem List - Problems (1) Acute on chronic systolic and diastolic heart failure, NYHA class 1 Code(s): I50.43 - ACUTE ON CHRONIC COMBINED SYSTOLIC AND DIASTOLIC HRT FAIL (2) Fall Code(s): W19.XXXA - UNSPECIFIED FALL, INITIAL ENCOUNTER Qualifiers: Encounter type: initial encounter Qualified Code(s): W19.XXXA - Unspecified fall, initial encounter (3) Fluid overload Code(s): E87.70 - FLUID OVERLOAD, UNSPECIFIED Qualifiers: Hypervolemia type: unspecified Qualified Code(s): E87.70 - Fluid overload, unspecified (4) Acute renal failure Code(s): N17.9 - ACUTE KIDNEY FAILURE, UNSPECIFIED (5) Diabetes mellitus Code(s): E11.9 - TYPE 2 DIABETES MELLITUS WITHOUT COMPLICATIONS Qualifiers: Diabetes mellitus type: type 2 Diabetes mellitus complication status: with ophthalmic complications Diabetes mellitus complication detail: with diabetic retinopathy
[2017-12-06] MEDS: FOLIC ACID 1 MG TABLET (FP) PO SCH (12:22)
--- NOTE | 2017-12-06 12:22 | PN ---
Progress Note (short form) - Note Progress Note: OOB to chair. Reports feeling overall better. No CP or SOB. Reports LUE antecubital discomfort at AVF site. Intake & Output 12/03/17 12/04/17 12/05/17 12/06/17 23:59 23:59 23:59 23:59 Intake Total 1043.6 788.6 300 160 Output Total 30 Balance 1043.6 788.6 270 160 Weight 161 lb 8 oz 164 lb 8 oz 170 lb 165 lb Last Vital Signs Temp Pulse Resp BP Pulse Ox 98 F 90 20 113/52 100 12/06/17 10:00 12/06/17 10:00 12/06/17 10:00 12/06/17 10:00 12/05/17 21:00 Active Medications Allopurinol (Zyloprim -) 300 mg PO DAILY [facility] Last Admin: 12/06/17 09:47 Dose: 300 mg Aspirin (Asa -) 81 mg PO DAILY [facility] Last Admin: 12/06/17 09:48 Dose: 81 mg Calcium Acetate (Phoslo -) 667 mg PO TIDCM [facility] Last Admin: 12/06/17 09:45 Dose: 667 mg Carvedilol (Coreg -) 12.5 mg PO BID [facility] Last Admin: 12/06/17 09:48 Dose: 12.5 mg Clopidogrel Bisulfate (Plavix -) 75 mg PO DAILY [facility] Last Admin: 12/06/17 09:47 Dose: 75 mg Docusate Sodium (Colace -) 100 mg PO TID [facility] Last Admin: 12/06/17 06:35 Dose: 100 mg Escitalopram Oxalate (Lexapro -) 5 mg PO HS [facility] Last Admin: 12/05/17 22:11 Dose: 5 mg Folic Acid (Folic Acid -) 1 mg PO DAILY [facility] Heparin Sodium (Porcine) (Heparin -) 5,000 unit IVPUSH PRN PRN PRN Reason: Heparin Heparin Sodium (Porcine) (Heparin -) 1,000 unit IVPUSH PRN PRN PRN Reason: Heparin Last Admin: 12/06/17 09:52 Dose: 1,000 unit Heparin Sodium (Porcine) (Heparin -) 5,000 unit IVPUSH PRN PRN PRN Reason: Heparin Hydralazine HCl (Apresoline -) 25 mg PO BID [facility] Last Admin: 12/06/17 09:47 Dose: 25 mg Heparin Sodium/Dextrose (Heparin Infusion -) 25,000 units in 500 mls @ 16 mls/ hr IVPB TITR [facility]; Protocol Last Admin: 12/06/17 09:51 Dose: 900 units/hr, 18 mls/hr Sodium Chloride (Normal Saline -) 250 mls @ 3,000 mls/hr IV PRN PRN PRN Reason: Hypotension during Dialysis Insulin Aspart (Novolog Vial Sliding Scale -) 1 vial SQ HS [facility]; Protocol Last Admin: 12/05/17 23:20 Dose: Not Given Insulin Aspart (Novolog Vial Sliding Scale -) 1 vial SQ TIDCM [facility]; Protocol Last Admin: 12/06/17 09:46 Dose: 10 unit Insulin Detemir (Levemir Vial) 35 units SQ DAILY@0800 [facility] Last Admin: 12/06/17 09:45 Dose: 35 units Isosorbide Dinitrate (Isordil -) 20 mg PO DAILY [facility] Losartan Potassium (Cozaar -) 25 mg PO DAILY [facility] Ondansetron HCl (Zofran Injection) 4 mg IVPUSH Q6H PRN PRN Reason: NAUSEA AND/OR VOMITING Oxycodone HCl (Roxicodone -) 5 mg PO Q4H PRN PRN Reason: PAIN LEVEL 1-5 Stop: 12/06/17 16:40 Rosuvastatin Calcium (Crestor -) 10 mg PO [facility] Last Admin: 12/05/17 22:11 Dose: 10 mg Tamsulosin HCl (Flomax -) 0.4 mg PO [facility] Last Admin: 12/05/17 22:10 Dose: 0.4 mg Torsemide (Demadex -) 80 mg PO DAILY [facility] Last Admin: 12/06/17 09:47 Dose: 80 mg Warfarin Sodium (Coumadin -) 7.5 mg PO DAILY@1800 [facility] Constitutional: Yes: NAD Eyes: Yes: WNL HENT: Yes: WNL Neck: Yes: WNL Cardiovascular: Yes: Regular Rate and Rhythm, S1, S2 Respiratory: Yes: Few basilar Rales Gastrointestinal: Yes: Normal Bowel Sounds, Soft Extremities: Yes: Left UE AVF (appears clean, no discharge) Edema: No Labs: Laboratory Results - last 24 hr 12/05/17 12/05/17 12/05/17 17:54 19:45 22:55 WBC RBC Hgb Hct MCV MCH MCHC RDW Plt Count MPV PTT (Actin FS) Sodium Potassium Chloride Carbon Dioxide Anion Gap BUN Creatinine POC Glucometer 213 195 Random Glucose Calcium Phosphorus 3.7 D 12/06/17 12/06/17 12/06/17 06:10 06:10 06:10 WBC 4.5 RBC 3.74 L Hgb 9.5 L Hct 30.4 L MCV 81.3 MCH 25.3 L MCHC 31.1 L RDW 24.1 H Plt Count 102 L MPV 10.4 PTT (Actin FS) 49.2 H Sodium 140 Potassium 4.1 Chloride 102 Carbon Dioxide 29 Anion Gap 9 BUN 33 H D Creatinine 2.0 H POC Glucometer Random Glucose 274 H D Calcium 8.2 L Phosphorus 12/06/17 08:43 WBC RBC Hgb Hct MCV MCH MCHC RDW Plt Count MPV PTT (Actin FS) Sodium Potassium Chloride Carbon Dioxide Anion Gap BUN Creatinine POC Glucometer 280 Random Glucose Calcium Phosphorus Problem List - Problems (1) Fall Code(s): W19.XXXA - UNSPECIFIED FALL, INITIAL ENCOUNTER Qualifiers: Encounter type: initial encounter Qualified Code(s): W19.XXXA - Unspecified fall, initial encounter (2) Fluid overload Code(s): E87.70 - FLUID OVERLOAD, UNSPECIFIED Qualifiers: Hypervolemia type: unspecified Qualified Code(s): E87.70 - Fluid overload, unspecified (3) Hyponatremia Code(s): E87.1 - HYPO-OSMOLALITY AND HYPONATREMIA (4) Acute on chronic systolic CHF (congestive heart failure) Code(s): I50.23 - ACUTE ON CHRONIC SYSTOLIC (CONGESTIVE) HEART FAILURE (5) Acute renal failure Code(s): N17.9 - ACUTE KIDNEY FAILURE, UNSPECIFIED (6) Anemia Code(s): D64.9 - ANEMIA, UNSPECIFIED Qualifiers: Anemia type: due to chronic kidney disease Chronic kidney disease stage: stage 4 (severe) Qualified Code(s): N18.4 - Chronic kidney disease, stage 4 ( severe); D63.1 - Anemia in chronic kidney disease (7) BPH (benign prostatic hypertrophy) Code(s): N40.0 - BENIGN PROSTATIC HYPERPLASIA WITHOUT LOWER URINRY TRACT SYMP (8) Chronic renal disease Code(s): N18.9 - CHRONIC KIDNEY DISEASE, UNSPECIFIED Qualifiers: Chronic kidney disease stage: stage 4 (severe) Qualified Code(s): N18.4 - Chronic kidney disease, stage 4 (severe) (9) Diabetes mellitus Code(s): E11.9 - TYPE 2 DIABETES MELLITUS WITHOUT COMPLICATIONS Qualifiers: Diabetes mellitus complication status: with ophthalmic complications Diabetes mellitus complication detail: with diabetic retinopathy (10) HTN (hypertension) Code(s): I10 - ESSENTIAL (PRIMARY) HYPERTENSION (11) Hx of heart artery stent Code(s): Z95.5 - PRESENCE OF CORONARY ANGIOPLASTY IMPLANT AND GRAFT Assessment/Plan Acute on Chronic Renal Failure requiring HD Acute on Chronic Systolic/Diastolic Heart Failure improving Volume Overload Hyponatremia CAD LV Thrombus HTN DM Hyperlipidemia - HD as per renal - monitor urine output, creatinine - monitor lytes - Anticoagulation - O2 to keep Spo2 >90% - Tylenol Dr Bob Problem List - Problems (1) Fall Code(s): W19.XXXA - UNSPECIFIED FALL, INITIAL ENCOUNTER Qualifiers: Encounter type: initial encounter Qualified Code(s): W19.XXXA - Unspecified fall, initial encounter (2) Fluid overload Code(s): E87.70 - FLUID OVERLOAD, UNSPECIFIED Qualifiers: Hypervolemia type: unspecified Qualified Code(s): E87.70 - Fluid overload, unspecified (3) Hyponatremia Code(s): E87.1 - HYPO-OSMOLALITY AND HYPONATREMIA (4) Acute on chronic systolic CHF (congestive heart failure) Code(s): I50.23 - ACUTE ON CHRONIC SYSTOLIC (CONGESTIVE) HEART FAILURE (5) Acute renal failure Code(s): N17.9 - ACUTE KIDNEY FAILURE, UNSPECIFIED (6) Anemia Code(s): D64.9 - ANEMIA, UNSPECIFIED Qualifiers: Anemia type: due to chronic kidney disease Chronic kidney disease stage: stage 4 (severe) Qualified Code(s): N18.4 - Chronic kidney disease, stage 4 ( severe); D63.1 - Anemia in chronic kidney disease (7) BPH (benign prostatic hypertrophy) Code(s): N40.0 - BENIGN PROSTATIC HYPERPLASIA WITHOUT LOWER URINRY TRACT SYMP (8) Chronic renal disease Code(s): N18.9 - CHRONIC KIDNEY DISEASE, UNSPECIFIED Qualifiers: Chronic kidney disease stage: stage 4 (severe) Qualified Code(s): N18.4 - Chronic kidney disease, stage 4 (severe) (9) Diabetes mellitus Code(s): E11.9 - TYPE 2 DIABETES MELLITUS WITHOUT COMPLICATIONS Qualifiers: Diabetes mellitus type: type 2 Diabetes mellitus complication status: with ophthalmic complications Diabetes mellitus complication detail: with diabetic retinopathy (10) HTN (hypertension) Code(s): I10 - ESSENTIAL (PRIMARY) HYPERTENSION (11) Hx of heart artery stent Code(s): Z95.5 - PRESENCE OF CORONARY ANGIOPLASTY IMPLANT AND GRAFT
[2017-12-06] MEDS: LOSARTAN POTASSIUM 25 MG TABLET PO SCH (12:23)
--- NOTE | 2017-12-06 13:49 | PN ---
Progress Note (short form) - Note Progress Note: cover for Dr Hess Current Medications Allopurinol (Zyloprim -) 300 mg PO DAILY [facility] Last Admin: 12/06/17 09:47 Dose: 300 mg Aspirin (Asa -) 81 mg PO DAILY [facility] Last Admin: 12/06/17 09:48 Dose: 81 mg Calcium Acetate (Phoslo -) 667 mg PO TIDCM [facility] Last Admin: 12/06/17 12:26 Dose: Not Given Carvedilol (Coreg -) 12.5 mg PO BID [facility] Last Admin: 12/06/17 09:48 Dose: 12.5 mg Clopidogrel Bisulfate (Plavix -) 75 mg PO DAILY [facility] Last Admin: 12/06/17 09:47 Dose: 75 mg Docusate Sodium (Colace -) 100 mg PO TID [facility] Last Admin: 12/06/17 06:35 Dose: 100 mg Escitalopram Oxalate (Lexapro -) 5 mg PO HS [facility] Last Admin: 12/05/17 22:11 Dose: 5 mg Folic Acid (Folic Acid -) 1 mg PO DAILY [facility] Last Admin: 12/06/17 12:22 Dose: 1 mg Heparin Sodium (Porcine) (Heparin -) 5,000 unit IVPUSH PRN PRN PRN Reason: Heparin Heparin Sodium (Porcine) (Heparin -) 1,000 unit IVPUSH PRN PRN PRN Reason: Heparin Last Admin: 12/06/17 09:52 Dose: 1,000 unit Heparin Sodium (Porcine) (Heparin -) 5,000 unit IVPUSH PRN PRN PRN Reason: Heparin Hydralazine HCl (Apresoline -) 25 mg PO BID [facility] Last Admin: 12/06/17 09:47 Dose: 25 mg Heparin Sodium/Dextrose (Heparin Infusion -) 25,000 units in 500 mls @ 16 mls/ hr IVPB TITR [facility]; Protocol Last Admin: 12/06/17 09:51 Dose: 900 units/hr, 18 mls/hr Sodium Chloride (Normal Saline -) 250 mls @ 3,000 mls/hr IV PRN PRN PRN Reason: Hypotension during Dialysis Insulin Aspart (Novolog Vial Sliding Scale -) 1 vial SQ HS [facility]; Protocol Last Admin: 12/05/17 23:20 Dose: Not Given Insulin Aspart (Novolog Vial Sliding Scale -) 1 vial SQ TIDCM [facility]; Protocol Last Admin: 12/06/17 12:23 Dose: 16 unit Insulin Detemir (Levemir Vial) 35 units SQ DAILY@0800 [facility] Last Admin: 12/06/17 09:45 Dose: 35 units Isosorbide Dinitrate (Isordil -) 20 mg PO DAILY [facility] Losartan Potassium (Cozaar -) 25 mg PO DAILY [facility] Last Admin: 12/06/17 12:23 Dose: 25 mg Ondansetron HCl (Zofran Injection) 4 mg IVPUSH Q6H PRN PRN Reason: NAUSEA AND/OR VOMITING Oxycodone HCl (Roxicodone -) 5 mg PO Q4H PRN PRN Reason: PAIN LEVEL 1-5 Stop: 12/06/17 16:40 Last Admin: 12/06/17 12:24 Dose: 5 mg Polyethylene Glycol (Miralax (For Daily Use) -) 17 gm PO DAILY [facility] Rosuvastatin Calcium (Crestor -) 10 mg PO [facility] Last Admin: 12/05/17 22:11 Dose: 10 mg Tamsulosin HCl (Flomax -) 0.4 mg PO [facility] Last Admin: 12/05/17 22:10 Dose: 0.4 mg Torsemide (Demadex -) 80 mg PO DAILY [facility] Last Admin: 12/06/17 09:47 Dose: 80 mg Warfarin Sodium (Coumadin -) 7.5 mg PO DAILY@1800 [facility] Vital Signs Temp 98 F 12/06/17 10:00 Pulse 90 12/06/17 10:00 Resp 20 12/06/17 10:00 BP 113/52 12/06/17 10:00 Pulse Ox 100 12/05/17 21:00 Intake & Output 12/05/17 12/06/17 12/06/17 23:59 11:59 23:59 Intake Total 300 160 Output Total 30 Balance 270 160 Weight 165 lb Intake: IV 250 160 HEPARIN INFUSION - 25,000 160 units In 500 ml @ 800 UNITS/HR 16 mls/hr IVPB TITR [facility] Rx#:[id number] Oral 50 Output: Urine 0 Estimated Blood Loss 30 Other: Voiding Method Incontinent Incontinent # Unmeasured Voids Void 2 Weight Measurement Method Patient Lift Scale Laboratory Results - last 24 hr 0612/05/17 12/05/17 17:54 19:45 22:55 WBC RBC Hgb Hct MCV MCH MCHC RDW Plt Count MPV PTT (Actin FS) Sodium Potassium Chloride Carbon Dioxide Anion Gap BUN Creatinine POC Glucometer 213 195 Random Glucose Calcium Phosphorus 3.7 D 12/06/17 12/06/17 12/06/17 06:10 06:10 06:10 WBC 4.5 RBC 3.74 L Hgb 9.5 L Hct 30.4 L MCV 81.3 MCH 25.3 L MCHC 31.1 L RDW 24.1 H Plt Count 102 L MPV 10.4 PTT (Actin FS) 49.2 H Sodium 140 Potassium 4.1 Chloride 102 Carbon Dioxide 29 Anion Gap 9 BUN 33 H D Creatinine 2.0 H POC Glucometer Random Glucose 274 H D Calcium 8.2 L Phosphorus 12/06/17 08:43 WBC RBC Hgb Hct MCV MCH MCHC RDW Plt Count MPV PTT (Actin FS) Sodium Potassium Chloride Carbon Dioxide Anion Gap BUN Creatinine POC Glucometer 280 Random Glucose Calcium Phosphorus CC: none ````````````````````````````` eyes--eomi; anicteric lungs--bilat crackles; unlabored heart--rr abd--soft chest--with Rt sided catheter ext--no pitting edema; LUE AVF; bruit neuro--awake & responsive ``````````````````````````````````````` Summ > hypothyroid--based on high TSH (which was mildly high last month); FT4 pending ; mgmt as per Endocrine > CHF--acute on chronic; diast & syst with RF: PLAN: cont cardiac meds; on HD to remove fluids; watch chems > DM--BS fluctuating; BGM over 400 this AM; has narrow threshold for sudden hypoglycemia; cont current insulin reg; see Endocrine note > RF--AVF created, to use Permacath for now for HD; see renal note > Chcf use of a/c--and antithrombotics; has LV thrombus; high risk for embolism; resume PO a/c and bridge w/IV Heparin; watch PLT, coags > CAD--s/p stenting following PR this year > anemia--H/h stable so far > constip--start Miralax > Uricemia--on allopurinol ~~~~~~~~~~~~~~~~~ dr Jean....................for Dr Hess
[2017-12-06] MEDS: POLYETHYLENE GLYCOL 3350 119 GM BTL PO SCH (15:18)
[2017-12-06] MEDS: ISOSORBIDE DINITRATE 20 MG TABLET (FP) PO SCH (15:38)
[2017-12-06 17:48] LABS: INR 1.17 (0.82-1.09); PROTHROMBIN TIME (PATIENT) 13.2 SEC (9.7-13.0)
[2017-12-06] MEDS: WARFARIN NA 7.5 MG TABLET (FP) PO SCH (18:13)
[2017-12-06] MEDS: TAMSULOSIN HCL 0.4 MG CAP.ER.24H (FP) PO SCH (22:18)
[2017-12-06] MEDS: ROSUVASTATIN CA 10 MG TABLET (FP) PO SCH (22:18)
[2017-12-06] MEDS: ESCITALOPRAM OXALATE 10 MG TABLET (FP) PO SCH (22:19)
[2017-12-07] MEDS: DOCUSATE SODIUM 100 MG CAPSULE (FP) PO SCH ×3 (05:39→21:14)
[2017-12-07 07:37] LABS: HEMATOCRIT 29.4 % (35.4-49); HEMOGLOBIN 9.2 GM/dL (11.7-16.9); MCH 25.5 pg (25.7-33.7); MCHC 31.2 g/dl (32.0-35.9); MEAN CELL VOLUME 81.5 fl (80-96); MEAN PLT VOLUME 10.3 fl (7.5-11.1); PLATELET COUNT 105 K/MM3 (134-434); RBC 3.61 M/mm3 (4.00-5.60); WHITE BLOOD COUNT 5.7 K/mm3 (4.0-10.0)
[2017-12-07 07:52] LABS: INR 1.18 (0.82-1.09); PROTHROMBIN TIME (PATIENT) 13.3 SEC (9.7-13.0)
[2017-12-07 08:27] LABS: ANION GAP 9 (8-16); CALCIUM 8.5 mg/dL (8.5-10.1); CHLORIDE 99 mmol/L (98-107); CO2 28 mmol/L (21-32); CREATININE 3.2 mg/dL (0.7-1.3); GLUCOSE,RANDOM 128 mg/dL (74-106); POTASSIUM 4.5 mmol/L (3.5-5.1); SODIUM 136 mmol/L (136-145)
[2017-12-07 08:30] LABS: BLOOD UREA NITROGEN 53 mg/dL (7-18)
--- NOTE | 2017-12-07 08:44 | PN ---
Progress Note (short form) - Note Progress Note: Denies any complaints Vital Signs Period Temp Pulse Resp BP Sys/Simons Pulse Ox Last 24 Hr 98 F-99.3 F 73-90 16-20 94-113/50-61 96-96 PE:AOx3 Neck: supple, No JVD HEENT: PERRL EOMI Lungs: b/L basal crackles Abd: Benign CVS: S1s2 Ext: +Edema, left arm AVF + bruit Neuro: No focal deficit CMP Sodium 140 mmol/L (136-145) 12/06/17 06:10 Potassium 4.1 mmol/L (3.5-5.1) 12/06/17 06:10 Chloride 102 mmol/L (98-107) 12/06/17 06:10 Carbon Dioxide 29 mmol/L (21-32) 12/06/17 06:10 Anion Gap 9 (8-16) 12/06/17 06:10 BUN 33 mg/dL (7-18) H D 12/06/17 06:10 Creatinine 2.0 mg/dL (0.7-1.3) H 12/06/17 06:10 Creat Clearance w eGFR 25.10 (>60) 12/05/17 06:18 POC Glucometer 120 UNITS (80-120) 12/06/17 22:18 Random Glucose 274 mg/dL (74-106) H D 12/06/17 06:10 Uric Acid 4.1 mg/dL (2.6-7.2) D 12/05/17 06:18 Calcium 8.2 mg/dL (8.5-10.1) L 12/06/17 06:10 Phosphorus 3.7 mg/dL (2.5-4.9) D 12/05/17 19:45 Magnesium 2.5 mg/dL (1.8-2.4) H 11/29/17 07:30 Iron 43 ug/dL (38-169) 11/25/17 15:56 TIBC 300 ug/dL (250-450) 11/25/17 15:56 Iron Saturation 14 % (15-55) L 11/25/17 15:56 Ferritin 51.426 ng/ml (16.4-293.9) 11/25/17 15:56 Total Bilirubin 0.5 mg/dL (0.2-1.0) 12/05/17 06:18 AST 18 U/L (15-37) 12/05/17 06:18 ALT 21 U/L (12-78) 12/05/17 06:18 Alkaline Phosphatase 86 U/L (45-117) D 12/05/17 06:18 Creatine Kinase 129 IU/L (39-308) 11/21/17 11:26 Troponin I < 0.02 ng/ml (0.00-0.05) D 11/21/17 11:26 B-Natriuretic Peptide 7918.00 pg/ml (5-450) H 11/21/17 11:30 Total Protein 5.8 g/dl (6.4-8.2) L 12/05/17 06:18 Albumin 2.8 g/dl (3.4-5.0) L 12/05/17 06:18 TSH 13.70 uIU/ml (0.358-3.74) H D 12/05/17 06:18 Free T4 0.95 ng/dl (0.76-1.16) 11/26/17 06:00 Current Medications Generic Name Dose Route Start Last Admin Trade Name Freq PRN Reason Stop Dose Admin Allopurinol 300 mg 12/06/17 10:00 12/06/17 09:47 Zyloprim - PO 300 mg DAILY [facility] Administration Aspirin 81 mg 12/06/17 10:00 12/06/17 09:48 Asa - PO 81 mg DAILY [facility] Administration Calcium Acetate 667 mg 12/05/17 17:30 12/06/17 17:38 Phoslo - PO 667 mg TIDCM [facility] Administration Carvedilol 12.5 mg 12/05/17 22:00 12/06/17 22:18 Coreg - PO 12.5 mg BID [facility] Administration Clopidogrel Bisulfate 75 mg 12/06/17 10:00 12/06/17 09:47 Plavix - PO 75 mg DAILY [facility] Administration Docusate Sodium 100 mg 12/05/17 22:00 12/07/17 05:39 Colace - PO Not Given TID [facility] Escitalopram Oxalate 5 mg 12/05/17 22:00 12/06/17 22:19 Lexapro - PO 5 mg HS [facility] Administration Folic Acid 1 mg 12/06/17 10:00 12/06/17 12:22 Folic Acid - PO 1 mg DAILY [facility] Administration Heparin Sodium (Porcine) 5,000 unit 12/05/17 22:49 Heparin - IVPUSH PRN PRN Heparin Heparin Sodium (Porcine) 1,000 unit 12/05/17 16:50 12/06/17 09:52 Heparin - IVPUSH 1,000 unit PRN PRN Administration Heparin Heparin Sodium (Porcine) 5,000 unit 12/05/17 16:50 Heparin - IVPUSH PRN PRN Heparin Hydralazine HCl 25 mg 12/05/17 22:00 12/06/17 22:19 Apresoline - PO 25 mg BID [facility] Administration Heparin Sodium/Dextrose 25,000 units in 500 mls @ 16 mls/hr 12/05/17 22:00 23:55 Heparin Infusion - IVPB Not Given TITR [facility] Protocol 800 UNITS/HR Sodium Chloride 250 mls @ 3,000 mls/hr 12/05/17 19:36 Normal Saline - IV PRN PRN Hypotension during Dialysis Insulin Aspart 1 vial 12/05/17 22:00 12/06/17 22:19 Novolog Vial Sliding Scale - SQ Not Given HS [facility] Protocol Insulin Aspart 1 vial 12/05/17 17:30 12/06/17 17:39 Novolog Vial Sliding Scale - SQ 14 unit TIDCM [facility] Administration Protocol Insulin Detemir 35 units 12/06/17 08:00 12/06/17 09:45 Levemir Vial SQ 35 units DAILY@0800 [facility] Administration Isosorbide Dinitrate 20 mg 12/06/17 10:00 12/06/17 15:38 Isordil - PO Not Given DAILY [facility] Losartan Potassium 25 mg 12/06/17 10:00 12/06/17 12:23 Cozaar - PO 25 mg DAILY [facility] Administration Ondansetron HCl 4 mg 12/05/17 17:13 Zofran Injection IVPUSH Q6H PRN NAUSEA AND/OR VOMITING Polyethylene Glycol 17 gm 12/06/17 13:45 12/06/17 15:18 Miralax (For Daily Use) - PO 17 units DAILY [facility] Administration Rosuvastatin Calcium 10 mg 12/05/17 22:00 12/06/17 22:18 Crestor - PO 10 mg HS [facility] Administration Tamsulosin HCl 0.4 mg 12/05/17 22:00 12/06/17 22:18 Flomax - PO 0.4 mg HS [facility] Administration Torsemide 80 mg 12/06/17 10:00 12/06/17 09:47 Demadex - PO 80 mg DAILY [facility] Administration Warfarin Sodium 7.5 mg 12/06/17 18:00 12/06/17 18:13 Coumadin - PO 7.5 mg DAILY@1800 [facility] Administration A/P Acute on Chronic Renal Failure requiring HD Acute on Chronic Systolic/Diastolic Heart Failure Volume Overload DM uncontrolled: some improvement in blood sugar, Pt with h/o hypoglycemia at home so will not attempt tight control ?Hypothyroidism: TSH 13.7 now was 5.99 on 11/21/17 CAD LV Thrombus HTN Hyperlipidemia IV diuretics IV Heparin S/P AV fistula Novolog 5 units x1, Fs on 134, to be given while pt is eating breakfast. Discussed with nursing staff. Decrease Levemir 30 units daily in the morning, didn't get any yesterday Continue Novolog Coverage, to be given only once food is in the room and pt is ready to eat. Discussed with nursing staff. Repeat TFT next week, No LT4 replacement for now Will F/U Problem List - Problems (1) Acute on chronic systolic and diastolic heart failure, NYHA class 1 Code(s): I50.43 - ACUTE ON CHRONIC COMBINED SYSTOLIC AND DIASTOLIC HRT FAIL (2) Fall Code(s): W19.XXXA - UNSPECIFIED FALL, INITIAL ENCOUNTER Qualifiers: Encounter type: initial encounter Qualified Code(s): W19.XXXA - Unspecified fall, initial encounter (3) Fluid overload Code(s): E87.70 - FLUID OVERLOAD, UNSPECIFIED Qualifiers: Hypervolemia type: unspecified Qualified Code(s): E87.70 - Fluid overload, unspecified (4) Acute renal failure Code(s): N17.9 - ACUTE KIDNEY FAILURE, UNSPECIFIED (5) Diabetes mellitus Code(s): E11.9 - TYPE 2 DIABETES MELLITUS WITHOUT COMPLICATIONS Qualifiers: Diabetes mellitus type: type 2 Diabetes mellitus complication status: with ophthalmic complications Diabetes mellitus complication detail: with diabetic retinopathy
[2017-12-07] MEDS ORDERED: Insulin (LOG) Aspart 100 UNITS/ML VIAL SQ ONE (08:49)
[2017-12-07] MEDS: CALCIUM ACETATE 667 MG CAPSULE (FP) PO SCH ×3 (09:47→17:24)
[2017-12-07] MEDS: INSULIN SLIDING SCALE (NOVOLOG) 1 VIAL SQ SCH ×4 (09:48→21:12)
[2017-12-07] MEDS: INSULIN (LEVEMIR) 100 UNITS/ML UNITS SQ SCH (09:49)
--- NOTE | 2017-12-07 09:50 | PN ---
Progress Note, Physician Chief Complaint: Cardiology for Malevaniicz History of Present Illness: sitting in chair, no distress TELE: NSR, APCs, VPCS - Current Medication List Current Medications: Active Medications Allopurinol (Zyloprim -) 300 mg PO DAILY [facility] Last Admin: 12/06/17 09:47 Dose: 300 mg Aspirin (Asa -) 81 mg PO DAILY [facility] Last Admin: 12/06/17 09:48 Dose: 81 mg Calcium Acetate (Phoslo -) 667 mg PO TIDCM [facility] Last Admin: 12/06/17 17:38 Dose: 667 mg Carvedilol (Coreg -) 12.5 mg PO BID [facility] Last Admin: 12/06/17 22:18 Dose: 12.5 mg Clopidogrel Bisulfate (Plavix -) 75 mg PO DAILY [facility] Last Admin: 12/06/17 09:47 Dose: 75 mg Docusate Sodium (Colace -) 100 mg PO TID [facility] Last Admin: 12/07/17 05:39 Dose: Not Given Escitalopram Oxalate (Lexapro -) 5 mg PO [facility] Last Admin: 12/06/17 22:19 Dose: 5 mg Folic Acid (Folic Acid -) 1 mg PO DAILY [facility] Last Admin: 12/06/17 12:22 Dose: 1 mg Heparin Sodium (Porcine) (Heparin -) 5,000 unit IVPUSH PRN PRN PRN Reason: Heparin Heparin Sodium (Porcine) (Heparin -) 1,000 unit IVPUSH PRN PRN PRN Reason: Heparin Last Admin: 12/06/17 09:52 Dose: 1,000 unit Heparin Sodium (Porcine) (Heparin -) 5,000 unit IVPUSH PRN PRN PRN Reason: Heparin Hydralazine HCl (Apresoline -) 25 mg PO BID [facility] Last Admin: 12/06/17 22:19 Dose: 25 mg Heparin Sodium/Dextrose (Heparin Infusion -) 25,000 units in 500 mls @ 16 mls/ hr IVPB TITR [facility]; Protocol Last Admin: 12/06/17 23:55 Dose: Not Given Sodium Chloride (Normal Saline -) 250 mls @ 3,000 mls/hr IV PRN PRN PRN Reason: Hypotension during Dialysis Insulin Aspart (Novolog Vial Sliding Scale -) 1 vial SQ HS [facility]; Protocol Last Admin: 12/06/17 22:19 Dose: Not Given Insulin Aspart (Novolog Vial Sliding Scale -) 1 vial SQ TIDCM [facility]; Protocol Last Admin: 12/06/17 17:39 Dose: 14 unit Insulin Detemir (Levemir Vial) 30 units SQ DAILY@0800 [facility] Isosorbide Dinitrate (Isordil -) 20 mg PO DAILY [facility] Last Admin: 12/06/17 15:38 Dose: Not Given Losartan Potassium (Cozaar -) 25 mg PO DAILY [facility] Last Admin: 12/06/17 12:23 Dose: 25 mg Ondansetron HCl (Zofran Injection) 4 mg IVPUSH Q6H PRN PRN Reason: NAUSEA AND/OR VOMITING Polyethylene Glycol (Miralax (For Daily Use) -) 17 gm PO DAILY [facility] Last Admin: 12/06/17 15:18 Dose: 17 units Rosuvastatin Calcium (Crestor -) 10 mg PO [facility] Last Admin: 12/06/17 22:18 Dose: 10 mg Tamsulosin HCl (Flomax -) 0.4 mg PO [facility] Last Admin: 12/06/17 22:18 Dose: 0.4 mg Torsemide (Demadex -) 80 mg PO DAILY [facility] Last Admin: 12/06/17 09:47 Dose: 80 mg Warfarin Sodium (Coumadin -) 7.5 mg PO DAILY@1800 [facility] Last Admin: 12/06/17 18:13 Dose: 7.5 mg - Objective Vital Signs: Vital Signs Temperature 98 F 12/07/17 07:19 Pulse Rate 78 12/07/17 07:19 Respiratory Rate 18 12/07/17 09:00 Blood Pressure 110/61 12/07/17 07:19 O2 Sat by Pulse Oximetry (%) 96 12/07/17 09:00 Constitutional: Yes: No Distress, Calm Cardiovascular: Yes: Regular Rate and Rhythm Respiratory: Yes: Other (rales at bases 1/3 bilaterally) Gastrointestinal: Yes: Soft Edema: No Neurological: Yes: Alert, Oriented Labs: CBC, BMP 12/07/17 06:35 12/07/17 08:00 INR, PTT INR 1.18 (0.82-1.09) H 12/07/17 06:35 - ....Imaging EKG: Image Reviewed Assessment/Plan IMP: ESRD CAD Chronic systolic CHF LV thrombus REC: Continue AC. Continue tele. For regular HD. Coverage for Dr. Perez
[2017-12-07] MEDS: FOLIC ACID 1 MG TABLET (FP) PO SCH (10:01)
[2017-12-07] MEDS: TORSEMIDE 20 MG TABLET (FP) PO SCH (10:01)
[2017-12-07] MEDS: CLOPIDOGREL BISULFATE 75 MG TABLET (FP) PO SCH (10:02)
[2017-12-07] MEDS: LOSARTAN POTASSIUM 25 MG TABLET PO SCH (10:02)
[2017-12-07] MEDS: ALLOPURINOL 300 MG TABLET (FP) PO SCH (10:02)
[2017-12-07] MEDS: CARVEDILOL 12.5 MG TABLET (FP) PO SCH ×2 (10:02→21:14)
[2017-12-07] MEDS: ASPIRIN 81 MG CHEWABLE TABLETS PO SCH (10:02)
[2017-12-07] MEDS: hydrALAZINE HCL 25 MG TABLET (FP) PO SCH ×2 (10:02→21:14)
--- NOTE | 2017-12-07 10:40 | PN ---
Progress Note, Physician Chief Complaint: The patient was seen in his room. Comfortable. Sitting on the bed side chair No chest pain, No SOB, constipated. Slept well last night. History of Present Illness: 77 year old gentleman with PMhx of CAD s/p GA, CHF, Hypertension, IDDM, HLD, CKD , with recent THEE who presented from home with fall and found to have THEE and fluid overlaod/CHF. On HD through [facility]. Still has evidence of fluid overload. Minimal SOB. - Current Medication List Current Medications: Active Medications Allopurinol (Zyloprim -) 300 mg PO DAILY [facility] Last Admin: 12/07/17 10:02 Dose: 300 mg Aspirin (Asa -) 81 mg PO DAILY [facility] Last Admin: 12/07/17 10:02 Dose: 81 mg Calcium Acetate (Phoslo -) 667 mg PO TIDCM [facility] Last Admin: 12/07/17 09:47 Dose: 667 mg Carvedilol (Coreg -) 12.5 mg PO BID [facility] Last Admin: 12/07/17 10:02 Dose: 12.5 mg Clopidogrel Bisulfate (Plavix -) 75 mg PO DAILY [facility] Last Admin: 12/07/17 10:02 Dose: 75 mg Docusate Sodium (Colace -) 100 mg PO TID [facility] Last Admin: 12/07/17 05:39 Dose: Not Given Escitalopram Oxalate (Lexapro -) 5 mg PO HS [facility] Last Admin: 12/06/17 22:19 Dose: 5 mg Folic Acid (Folic Acid -) 1 mg PO DAILY [facility] Last Admin: 12/07/17 10:01 Dose: 1 mg Heparin Sodium (Porcine) (Heparin -) 5,000 unit IVPUSH PRN PRN PRN Reason: Heparin Heparin Sodium (Porcine) (Heparin -) 1,000 unit IVPUSH PRN PRN PRN Reason: Heparin Last Admin: 12/06/17 09:52 Dose: 1,000 unit Heparin Sodium (Porcine) (Heparin -) 5,000 unit IVPUSH PRN PRN PRN Reason: Heparin Hydralazine HCl (Apresoline -) 25 mg PO BID [facility] Last Admin: 12/07/17 10:02 Dose: 25 mg Heparin Sodium/Dextrose (Heparin Infusion -) 25,000 units in 500 mls @ 16 mls/ hr IVPB TITR [facility]; Protocol Last Admin: 12/06/17 23:55 Dose: Not Given Sodium Chloride (Normal Saline -) 250 mls @ 3,000 mls/hr IV PRN PRN PRN Reason: Hypotension during Dialysis Insulin Aspart (Novolog Vial Sliding Scale -) 1 vial SQ HS [facility]; Protocol Last Admin: 12/06/17 22:19 Dose: Not Given Insulin Aspart (Novolog Vial Sliding Scale -) 1 vial SQ TIDCM [facility]; Protocol Last Admin: 12/07/17 09:48 Dose: Not Given Insulin Detemir (Levemir Vial) 30 units SQ DAILY@0800 [facility] Isosorbide Dinitrate (Isordil -) 20 mg PO DAILY [facility] Last Admin: 12/06/17 15:38 Dose: Not Given Losartan Potassium (Cozaar -) 25 mg PO DAILY [facility] Last Admin: 12/07/17 10:02 Dose: 25 mg Ondansetron HCl (Zofran Injection) 4 mg IVPUSH Q6H PRN PRN Reason: NAUSEA AND/OR VOMITING Polyethylene Glycol (Miralax (For Daily Use) -) 17 gm PO DAILY [facility] Last Admin: 12/06/17 15:18 Dose: 17 units Rosuvastatin Calcium (Crestor -) 10 mg PO [facility] Last Admin: 12/06/17 22:18 Dose: 10 mg Tamsulosin HCl (Flomax -) 0.4 mg PO HS [facility] Last Admin: 12/06/17 22:18 Dose: 0.4 mg Torsemide (Demadex -) 80 mg PO DAILY [facility] Last Admin: 12/07/17 10:01 Dose: 80 mg Warfarin Sodium (Coumadin -) 7.5 mg PO DAILY@1800 [facility] Last Admin: 12/06/17 18:13 Dose: 7.5 mg - Objective Vital Signs: Vital Signs Temperature 98 F 12/07/17 10:00 Pulse Rate 77 12/07/17 10:00 Respiratory Rate 20 12/07/17 10:00 Blood Pressure 112/59 12/07/17 10:00 O2 Sat by Pulse Oximetry (%) 96 12/07/17 09:00 Constitutional: Yes: No Distress, Anxious Eyes: Yes: Conjunctiva Clear HENT: Yes: Normocephalic Cardiovascular: Yes: Regular Rate and Rhythm, S1, S2 Respiratory: Yes: Regular, Rales, Rhonchi, SOB on Exertion Gastrointestinal: Yes: Normal Bowel Sounds, Soft Genitourinary: No: Bladder Distention, CVA Tenderness - Left, CVA Tenderness - Right Edema: Yes Edema: LLE: 1+, RLE: 1+ Neurological: Yes: Alert, Oriented Labs: CBC, BMP 12/07/17 06:35 12/07/17 08:00 INR, PTT INR 1.18 (0.82-1.09) H 12/07/17 06:35 Problem List - Problems (1) ESRD (end stage renal disease) on dialysis Code(s): N18.6 - END STAGE RENAL DISEASE; Z99.2 - DEPENDENCE ON RENAL DIALYSIS (2) Anemia in CKD (chronic kidney disease) Code(s): N18.9 - CHRONIC KIDNEY DISEASE, UNSPECIFIED; D63.1 - ANEMIA IN CHRONIC KIDNEY DISEASE (3) Congestive heart failure Code(s): I50.9 - HEART FAILURE, UNSPECIFIED Assessment/Plan 77 year old gentleman with PMhx of CAD s/p GA, CHF, Hypertension, IDDM, HLD, CKD , with recent THEE who presented from home with fall and found to have THEE and fluid overlaod/CHF superimposed on advanced CKD. The patient has EDRD now, and is dialysis dependent. Has a ventricular thrombus. A/C in progress. AVF ( Left arm) with good bruit. Permacath in place, and with no signs of infection. Scheduled for dialysis tomorrow. Outpatient HD arrangements in progress at [facility]. Full A/c in progress. Will increase Torsemide to 100mg. Aimee Swan MD
[2017-12-07] MEDS: HEPARIN INFUSION - 25,000 UNITS/500 ML INFUS.BAG IVPB SCH ×2 (12:12→21:12)
--- NOTE | 2017-12-07 12:20 | PN ---
Progress Note (short form) - Note Progress Note: ^^^^^^^^^^^^^^^^ covering note Current Medications Allopurinol (Zyloprim -) 300 mg PO DAILY [facility] Last Admin: 12/07/17 10:02 Dose: 300 mg Aspirin (Asa -) 81 mg PO DAILY [facility] Last Admin: 12/07/17 10:02 Dose: 81 mg Calcium Acetate (Phoslo -) 667 mg PO TIDCM [facility] Last Admin: 12/07/17 12:10 Dose: 667 mg Carvedilol (Coreg -) 12.5 mg PO BID [facility] Last Admin: 12/07/17 10:02 Dose: 12.5 mg Clopidogrel Bisulfate (Plavix -) 75 mg PO DAILY [facility] Last Admin: 12/07/17 10:02 Dose: 75 mg Docusate Sodium (Colace -) 100 mg PO TID [facility] Last Admin: 12/07/17 05:39 Dose: Not Given Epoetin Fahad (Procrit -) 10,000 unit SQ ONCE ONE Stop: 12/08/17 10:43 Escitalopram Oxalate (Lexapro -) 5 mg PO [facility] Last Admin: 12/06/17 22:19 Dose: 5 mg Folic Acid (Folic Acid -) 1 mg PO DAILY [facility] Last Admin: 12/07/17 10:01 Dose: 1 mg Heparin Sodium (Porcine) (Heparin -) 5,000 unit IVPUSH PRN PRN PRN Reason: Heparin Heparin Sodium (Porcine) (Heparin -) 1,000 unit IVPUSH PRN PRN PRN Reason: Heparin Last Admin: 12/06/17 09:52 Dose: 1,000 unit Heparin Sodium (Porcine) (Heparin -) 5,000 unit IVPUSH PRN PRN PRN Reason: Heparin Hydralazine HCl (Apresoline -) 25 mg PO BID [facility] Last Admin: 12/07/17 10:02 Dose: 25 mg Heparin Sodium/Dextrose (Heparin Infusion -) 25,000 units in 500 mls @ 16 mls/ hr IVPB TITR [facility]; Protocol Last Admin: 12/07/17 12:12 Dose: 900 units/hr, 18 mls/hr Sodium Chloride (Normal Saline -) 250 mls @ 3,000 mls/hr IV PRN PRN PRN Reason: Hypotension during Dialysis Insulin Aspart (Novolog Vial Sliding Scale -) 1 vial SQ [facility]; Protocol Last Admin: 12/06/17 22:19 Dose: Not Given Insulin Aspart (Novolog Vial Sliding Scale -) 1 vial SQ TIDCM [facility]; Protocol Last Admin: 12/07/17 12:12 Dose: 10 unit Insulin Detemir (Levemir Vial) 30 units SQ DAILY@0800 [facility] Isosorbide Dinitrate (Isordil -) 20 mg PO DAILY [facility] Last Admin: 12/06/17 15:38 Dose: Not Given Losartan Potassium (Cozaar -) 25 mg PO DAILY [facility] Last Admin: 12/07/17 10:02 Dose: 25 mg Ondansetron HCl (Zofran Injection) 4 mg IVPUSH Q6H PRN PRN Reason: NAUSEA AND/OR VOMITING Polyethylene Glycol (Miralax (For Daily Use) -) 17 gm PO DAILY [facility] Last Admin: 12/06/17 15:18 Dose: 17 units Rosuvastatin Calcium (Crestor -) 10 mg PO [facility] Last Admin: 12/06/17 22:18 Dose: 10 mg Tamsulosin HCl (Flomax -) 0.4 mg PO [facility] Last Admin: 12/06/17 22:18 Dose: 0.4 mg Torsemide (Demadex -) 100 mg PO DAILY [facility] Warfarin Sodium (Coumadin -) 7.5 mg PO DAILY@1800 [facility] Last Admin: 12/06/17 18:13 Dose: 7.5 mg Laboratory Results - last 24 hr 12/06/17 12/06/17 12/06/17 16:15 16:15 16:49 WBC RBC Hgb Hct MCV MCH MCHC RDW Plt Count MPV PT with INR 13.20 H INR 1.17 H PTT (Actin FS) 51.7 H Sodium Potassium Chloride Carbon Dioxide Anion Gap BUN Creatinine POC Glucometer 314 Random Glucose Calcium 12/06/17 12/07/17 12/07/17 22:18 06:00 06:35 WBC 5.7 RBC 3.61 L Hgb 9.2 L Hct 29.4 L MCV 81.5 MCH 25.5 L MCHC 31.2 L RDW 24.0 H Plt Count 105 L MPV 10.3 PT with INR INR PTT (Actin FS) 62.2 H Sodium Potassium Chloride Carbon Dioxide Anion Gap BUN Creatinine POC Glucometer 120 Random Glucose Calcium 12/07/17 12/07/17 12/07/17 06:35 08:00 08:48 WBC RBC Hgb Hct MCV MCH MCHC RDW Plt Count MPV PT with INR 13.30 H INR 1.18 H PTT (Actin FS) Sodium 136 Potassium 4.5 Chloride 99 Carbon Dioxide 28 Anion Gap 9 BUN 53 H D Creatinine 3.2 H D POC Glucometer 134 Random Glucose 128 H D Calcium 8.5 12/07/17 11:56 WBC RBC Hgb Hct MCV MCH MCHC RDW Plt Count MPV PT with INR INR PTT (Act[facility] FS) Sodium Potassium Chloride Carbon Dioxide Anion Gap BUN Creatinine POC Glucometer 206 Random Glucose Calcium Vital Signs Temp 98 F 12/07/17 10:00 Pulse 77 12/07/17 10:00 Resp 20 12/07/17 10:00 BP 112/59 12/07/17 10:00 Pulse Ox 96 12/07/17 09:00 Intake & Output 12/06/17 12/07/17 12/07/17 23:59 11:59 23:59 Intake Total 456 Balance 456 Weight 164 lb 6 oz Intake: IV 216 HEPARIN INFUSION - 25,000 216 units In 500 ml @ 800 UNITS/HR 16 mls/hr IVPB TITR [facility] Rx#:[id number] Oral 240 Other: Voiding Method Diaper Diaper # Unmeasured Voids Void 2 Weight Measurement Method Patient Lift Scale CC: none ````````````````````````````` eyes--eomi; anicteric lungs--bilat crackles; unlabored heart--rr chest--with Rt sided catheter ext--no pitting edema; LUE AVF; bruit neuro--awake & responsive; eating his meal in NAD ``````````````````````````````````````` Summ > hypothyroid--based on high TSH (which was mildly high last month); FT4 pending ; mgmt as per Endocrine > CHF--now with RF; acute on chronic; diast & syst with RF: PLAN: cont cardiac meds; on HD to remove fluids; watch chems > DM--BS fluctuating; insulin adjustments made by Dr Coates; see Endocrine note > RF--AVF created, to use Permacath for now for HD; see renal note > Intermediate use of a/c--and antithrombotics; has LV thrombus; high risk for embolism; resume PO a/c, bridging in progress; watch PLT, coags > CAD--s/p stenting following MT this year > anemia--H/h slightly lower; check daily > constip--start Miralax; no BM yet > Uricemia--on allopurinol ~~~~~~~~~~~~~~~~~ (Discussed with family...present at bedside) dr Jean....................for Dr Hess
[2017-12-07] MEDS: POLYETHYLENE GLYCOL 3350 119 GM BTL PO SCH (12:21)
--- NOTE | 2017-12-07 12:30 | PN ---
Progress Note (short form) - Note Progress Note: OOB to chair. Reports feeling overall better. No CP or SOB. Less LUE antecubital discomfort at AVF site. Intake & Output 12/04/17 12/05/17 12/06/17 12/07/17 23:59 23:59 23:59 23:59 Intake Total 788.6 300 616 Output Total 30 Balance 788.6 270 616 Weight 164 lb 8 oz 170 lb 165 lb 164 lb 6 oz Last Vital Signs Temp Pulse Resp BP Pulse Ox 98 F 77 20 112/59 96 12/07/17 10:00 12/07/17 10:00 12/07/17 10:00 12/07/17 10:00 12/07/17 09:00 Active Medications Allopurinol (Zyloprim -) 300 mg PO DAILY [facility] Last Admin: 12/07/17 10:02 Dose: 300 mg Aspirin (Asa -) 81 mg PO DAILY [facility] Last Admin: 12/07/17 10:02 Dose: 81 mg Calcium Acetate (Phoslo -) 667 mg PO TIDCM [facility] Last Admin: 12/07/17 12:10 Dose: 667 mg Carvedilol (Coreg -) 12.5 mg PO BID [facility] Last Admin: 12/07/17 10:02 Dose: 12.5 mg Clopidogrel Bisulfate (Plavix -) 75 mg PO DAILY [facility] Last Admin: 12/07/17 10:02 Dose: 75 mg Docusate Sodium (Colace -) 100 mg PO TID [facility] Last Admin: 12/07/17 05:39 Dose: Not Given Epoetin Fahad (Procrit -) 10,000 unit SQ ONCE ONE Stop: 12/08/17 10:43 Escitalopram Oxalate (Lexapro -) 5 mg PO HS [facility] Last Admin: 12/06/17 22:19 Dose: 5 mg Folic Acid (Folic Acid -) 1 mg PO DAILY [facility] Last Admin: 12/07/17 10:01 Dose: 1 mg Heparin Sodium (Porcine) (Heparin -) 5,000 unit IVPUSH PRN PRN PRN Reason: Heparin Heparin Sodium (Porcine) (Heparin -) 1,000 unit IVPUSH PRN PRN PRN Reason: Heparin Last Admin: 12/06/17 09:52 Dose: 1,000 unit Heparin Sodium (Porcine) (Heparin -) 5,000 unit IVPUSH PRN PRN PRN Reason: Heparin Hydralazine HCl (Apresoline -) 25 mg PO BID [facility] Last Admin: 12/07/17 10:02 Dose: 25 mg Heparin Sodium/Dextrose (Heparin Infusion -) 25,000 units in 500 mls @ 16 mls/ hr IVPB TITR [facility]; Protocol Last Admin: 12/07/17 12:12 Dose: 900 units/hr, 18 mls/hr Sodium Chloride (Normal Saline -) 250 mls @ 3,000 mls/hr IV PRN PRN PRN Reason: Hypotension during Dialysis Insulin Aspart (Novolog Vial Sliding Scale -) 1 vial SQ HS [facility]; Protocol Last Admin: 12/06/17 22:19 Dose: Not Given Insulin Aspart (Novolog Vial Sliding Scale -) 1 vial SQ TIDCM [facility]; Protocol Last Admin: 12/07/17 12:12 Dose: 10 unit Insulin Detemir (Levemir Vial) 30 units SQ DAILY@0800 [facility] Isosorbide Dinitrate (Isordil -) 20 mg PO DAILY [facility] Last Admin: 12/06/17 15:38 Dose: Not Given Losartan Potassium (Cozaar -) 25 mg PO DAILY [facility] Last Admin: 12/07/17 10:02 Dose: 25 mg Ondansetron HCl (Zofran Injection) 4 mg IVPUSH Q6H PRN PRN Reason: NAUSEA AND/OR VOMITING Polyethylene Glycol (Miralax (For Daily Use) -) 17 gm PO DAILY [facility] Last Admin: 12/07/17 12:21 Dose: 17 gm Rosuvastatin Calcium (Crestor -) 10 mg PO [facility] Last Admin: 12/06/17 22:18 Dose: 10 mg Tamsulosin HCl (Flomax -) 0.4 mg PO [facility] Last Admin: 12/06/17 22:18 Dose: 0.4 mg Torsemide (Demadex -) 100 mg PO DAILY [facility] Warfarin Sodium (Coumadin -) 7.5 mg PO DAILY@1800 [facility] Last Admin: 12/06/17 18:13 Dose: 7.5 mg Constitutional: Yes: NAD Eyes: Yes: WNL HENT: Yes: WNL Neck: Yes: WNL Cardiovascular: Yes: Regular Rate and Rhythm, S1, S2 Respiratory: Yes: Few basilar Rales Gastrointestinal: Yes: Normal Bowel Sounds, Soft Extremities: Yes: Left UE AVF (appears clean, no discharge) Edema: No Labs: Laboratory Results - last 24 hr 12/06/17 12/06/17 12/06/17 16:15 16:15 16:49 WBC RBC Hgb Hct MCV MCH MCHC RDW Plt Count MPV PT with INR 13.20 H INR 1.17 H PTT (Actin FS) 51.7 H Sodium Potassium Chloride Carbon Dioxide Anion Gap BUN Creatinine POC Glucometer 314 Random Glucose Calcium 12/06/17 12/07/17 12/07/17 22:18 06:00 06:35 WBC 5.7 RBC 3.61 L Hgb 9.2 L Hct 29.4 L MCV 81.5 MCH 25.5 L MCHC 31.2 L RDW 24.0 H Plt Count 105 L MPV 10.3 PT with INR INR PTT (Actin FS) 62.2 H Sodium Potassium Chloride Carbon Dioxide Anion Gap BUN Creatinine POC Glucometer 120 Random Glucose Calcium 12/07/17 12/07/17 12/07/17 06:35 08:00 08:48 WBC RBC Hgb Hct MCV MCH MCHC RDW Plt Count MPV PT with INR 13.30 H INR 1.18 H PTT (Actin FS) Sodium 136 Potassium 4.5 Chloride 99 Carbon Dioxide 28 Anion Gap 9 BUN 53 H D Creatinine 3.2 H D POC Glucometer 134 Random Glucose 128 H D Calcium 8.5 12/07/17 11:56 WBC RBC Hgb Hct MCV MCH MCHC RDW Plt Count MPV PT with INR INR PTT ([facility] FS) Sodium Potassium Chloride Carbon Dioxide Anion Gap BUN Creatinine POC Glucometer 206 Random Glucose Calcium Problem List - Problems (1) Fall Code(s): W19.XXXA - UNSPECIFIED FALL, INITIAL ENCOUNTER Qualifiers: Encounter type: initial encounter Qualified Code(s): W19.XXXA - Unspecified fall, initial encounter (2) Fluid overload Code(s): E87.70 - FLUID OVERLOAD, UNSPECIFIED Qualifiers: Hypervolemia type: unspecified Qualified Code(s): E87.70 - Fluid overload, unspecified (3) Hyponatremia Code(s): E87.1 - HYPO-OSMOLALITY AND HYPONATREMIA (4) Acute on chronic systolic CHF (congestive heart failure) Code(s): I50.23 - ACUTE ON CHRONIC SYSTOLIC (CONGESTIVE) HEART FAILURE (5) Acute renal failure Code(s): N17.9 - ACUTE KIDNEY FAILURE, UNSPECIFIED (6) Anemia Code(s): D64.9 - ANEMIA, UNSPECIFIED Qualifiers: Anemia type: due to chronic kidney disease Chronic kidney disease stage: stage 4 (severe) Qualified Code(s): N18.4 - Chronic kidney disease, stage 4 ( severe); D63.1 - Anemia in chronic kidney disease (7) BPH (benign prostatic hypertrophy) Code(s): N40.0 - BENIGN PROSTATIC HYPERPLASIA WITHOUT LOWER URINRY TRACT SYMP (8) Chronic renal disease Code(s): N18.9 - CHRONIC KIDNEY DISEASE, UNSPECIFIED Qualifiers: Chronic kidney disease stage: stage 4 (severe) Qualified Code(s): N18.4 - Chronic kidney disease, stage 4 (severe) (9) Diabetes mellitus Code(s): E11.9 - TYPE 2 DIABETES MELLITUS WITHOUT COMPLICATIONS Qualifiers: Diabetes mellitus complication status: with ophthalmic complications Diabetes mellitus complication detail: with diabetic retinopathy (10) HTN (hypertension) Code(s): I10 - ESSENTIAL (PRIMARY) HYPERTENSION (11) Hx of heart artery stent Code(s): Z95.5 - PRESENCE OF CORONARY ANGIOPLASTY IMPLANT AND GRAFT Assessment/Plan Acute on Chronic Renal Failure requiring HD Acute on Chronic Systolic/Diastolic Heart Failure improving Volume Overload Hyponatremia CAD LV Thrombus HTN DM Hyperlipidemia - HD as per renal - monitor urine output, creatinine - monitor lytes - Anticoagulation - O2 to keep Spo2 >90% - Tylenol PRN Dr Bob Problem List - Problems (1) Fall Code(s): W19.XXXA - UNSPECIFIED FALL, INITIAL ENCOUNTER Qualifiers: Encounter type: initial encounter Qualified Code(s): W19.XXXA - Unspecified fall, initial encounter (2) Fluid overload Code(s): E87.70 - FLUID OVERLOAD, UNSPECIFIED Qualifiers: Hypervolemia type: unspecified Qualified Code(s): E87.70 - Fluid overload, unspecified (3) Hyponatremia Code(s): E87.1 - HYPO-OSMOLALITY AND HYPONATREMIA (4) Acute on chronic systolic CHF (congestive heart failure) Code(s): I50.23 - ACUTE ON CHRONIC SYSTOLIC (CONGESTIVE) HEART FAILURE (5) Acute renal failure Code(s): N17.9 - ACUTE KIDNEY FAILURE, UNSPECIFIED (6) Anemia Code(s): D64.9 - ANEMIA, UNSPECIFIED Qualifiers: Anemia type: due to chronic kidney disease Chronic kidney disease stage: stage 4 (severe) Qualified Code(s): N18.4 - Chronic kidney disease, stage 4 ( severe); D63.1 - Anemia in chronic kidney disease (7) BPH (benign prostatic hypertrophy) Code(s): N40.0 - BENIGN PROSTATIC HYPERPLASIA WITHOUT LOWER URINRY TRACT SYMP (8) Chronic renal disease Code(s): N18.9 - CHRONIC KIDNEY DISEASE, UNSPECIFIED Qualifiers: Chronic kidney disease stage: stage 4 (severe) Qualified Code(s): N18.4 - Chronic kidney disease, stage 4 (severe) (9) Diabetes mellitus Code(s): E11.9 - TYPE 2 DIABETES MELLITUS WITHOUT COMPLICATIONS Qualifiers: Diabetes mellitus type: type 2 Diabetes mellitus complication status: with ophthalmic complications Diabetes mellitus complication detail: with diabetic retinopathy (10) HTN (hypertension) Code(s): I10 - ESSENTIAL (PRIMARY) HYPERTENSION (11) Hx of heart artery stent Code(s): Z95.5 - PRESENCE OF CORONARY ANGIOPLASTY IMPLANT AND GRAFT
[2017-12-07] MEDS: ISOSORBIDE DINITRATE 20 MG TABLET (FP) PO SCH (17:12)
[2017-12-07] MEDS: WARFARIN NA 7.5 MG TABLET (FP) PO SCH (17:25)
[2017-12-07] MEDS: TAMSULOSIN HCL 0.4 MG CAP.ER.24H (FP) PO SCH (21:14)
[2017-12-07] MEDS: ROSUVASTATIN CA 10 MG TABLET (FP) PO SCH (21:14)
[2017-12-07] MEDS: ESCITALOPRAM OXALATE 10 MG TABLET (FP) PO SCH (21:14)
[2017-12-08] MEDS: DOCUSATE SODIUM 100 MG CAPSULE (FP) PO SCH ×2 (05:41→14:00)
[2017-12-08] MEDS: HEPARIN INFUSION - 25,000 UNITS/500 ML INFUS.BAG IVPB SCH (06:11)
[2017-12-08 06:59] LABS: INR 1.48 (0.82-1.09); PROTHROMBIN TIME (PATIENT) 16.7 SEC (9.7-13.0)
[2017-12-08 07:12] LABS: CHLORIDE 96 mmol/L (98-107); POTASSIUM 4.9 mmol/L (3.5-5.1); SODIUM 133 mmol/L (136-145)
[2017-12-08 07:39] LABS: ANION GAP 11 (8-16); BLOOD UREA NITROGEN 68 mg/dL (7-18); CALCIUM 8.7 mg/dL (8.5-10.1); CO2 26 mmol/L (21-32); CREATININE 3.8 mg/dL (0.7-1.3); GLUCOSE,RANDOM 112 mg/dL (74-106)
[2017-12-08 07:41] LABS: MCH 25.6 pg (25.7-33.7); MCHC 31.4 g/dl (32.0-35.9); MEAN CELL VOLUME 81.5 fl (80-96); MEAN PLT VOLUME 11.2 fl (7.5-11.1); PLATELET COUNT 128 K/MM3 (134-434); RBC 3.92 M/mm3 (4.00-5.60); RDW 23.9 % (11.9-15.9); WHITE BLOOD COUNT 5.3 K/mm3 (4.0-10.0)
--- NOTE | 2017-12-08 08:32 | PN ---
Progress Note, Physician History of Present Illness: Mr. Davila is a 77 yo male (b. [place]) w/ pmh of AMI in Jul of this year with subsequent 5 stents during catheterization (and prior NSTEMI a few years ago, also resulting in PCI), systolic/diastolic CHF, HTN, HLD, IDDM, and known left ventricle thrombus (currently on plavix, ASA, and coumadin) who presents following fall earlier today. Per his , who is with him, he slid out of bed and fell on to his right buttock. Did not experience any LOC or dizziness and describes this as a mechanical fall. He has had increasing falls lately and was recently evaluated for similar fall on right side 11/11/17 in [facility]. - Current Medication List Current Medications: Active Medications Allopurinol (Zyloprim -) 300 mg PO DAILY [facility] Last Admin: 12/07/17 10:02 Dose: 300 mg Aspirin (Asa -) 81 mg PO DAILY [facility] Last Admin: 12/07/17 10:02 Dose: 81 mg Calcium Acetate (Phoslo -) 667 mg PO TIDCM [facility] Last Admin: 12/07/17 17:24 Dose: 667 mg Carvedilol (Coreg -) 12.5 mg PO BID [facility] Last Admin: 12/07/17 21:14 Dose: 12.5 mg Clopidogrel Bisulfate (Plavix -) 75 mg PO DAILY [facility] Last Admin: 12/07/17 10:02 Dose: 75 mg Docusate Sodium (Colace -) 100 mg PO TID [facility] Last Admin: 12/08/17 05:41 Dose: 100 mg Epoetin Fahad (Procrit -) 10,000 unit SQ ONCE ONE Stop: 12/08/17 10:43 Escitalopram Oxalate (Lexapro -) 5 mg PO HS [facility] Last Admin: 12/07/17 21:14 Dose: 5 mg Folic Acid (Folic Acid -) 1 mg PO DAILY [facility] Last Admin: 12/07/17 10:01 Dose: 1 mg Heparin Sodium (Porcine) (Heparin -) 5,000 unit IVPUSH PRN PRN PRN Reason: Heparin Heparin Sodium (Porcine) (Heparin -) 1,000 unit IVPUSH PRN PRN PRN Reason: Heparin Last Admin: 12/06/17 09:52 Dose: 1,000 unit Heparin Sodium (Porcine) (Heparin -) 5,000 unit IVPUSH PRN PRN PRN Reason: Heparin Hydralazine HCl (Apresoline -) 25 mg PO BID [facility] Last Admin: 12/07/17 21:14 Dose: 25 mg Heparin Sodium/Dextrose (Heparin Infusion -) 25,000 units in 500 mls @ 16 mls/ hr IVPB TITR [facility]; Protocol Last Admin: 12/08/17 06:11 Dose: 900 units/hr, 18 mls/hr Sodium Chloride (Normal Saline -) 250 mls @ 3,000 mls/hr IV PRN PRN PRN Reason: Hypotension during Dialysis Insulin Aspart (Novolog Vial Sliding Scale -) 1 vial SQ HS [facility]; Protocol Last Admin: 12/07/17 21:12 Dose: Not Given Insulin Aspart (Novolog Vial Sliding Scale -) 1 vial SQ TIDCM [facility]; Protocol Last Admin: 12/07/17 17:25 Dose: 12 unit Insulin Detemir (Levemir Vial) 30 units SQ DAILY@0800 [facility] Isosorbide Dinitrate (Isordil -) 20 mg PO DAILY [facility] Last Admin: 12/07/17 17:12 Dose: Not Given Losartan Potassium (Cozaar -) 25 mg PO DAILY [facility] Last Admin: 12/07/17 10:02 Dose: 25 mg Ondansetron HCl (Zofran Injection) 4 mg IVPUSH Q6H PRN PRN Reason: NAUSEA AND/OR VOMITING Polyethylene Glycol (Miralax (For Daily Use) -) 17 gm PO DAILY [facility] Last Admin: 12/07/17 12:21 Dose: 17 gm Rosuvastatin Calcium (Crestor -) 10 mg PO HS [facility] Last Admin: 12/07/17 21:14 Dose: 10 mg Tamsulosin HCl (Flomax -) 0.4 mg PO HS [facility] Last Admin: 12/07/17 21:14 Dose: 0.4 mg Torsemide (Demadex -) 100 mg PO DAILY [facility] Warfarin Sodium (Coumadin -) 7.5 mg PO DAILY@1800 [facility] Last Admin: 12/07/17 17:25 Dose: 7.5 mg - Objective Vital Signs: Vital Signs Temperature 97.9 F 12/08/17 06:00 Pulse Rate 60 12/08/17 06:00 Respiratory Rate 18 12/08/17 06:00 Blood Pressure 100/46 12/08/17 06:00 O2 Sat by Pulse Oximetry (%) 97 12/07/17 20:41 Eyes: Yes: WNL, Conjunctiva Clear, EOM Intact HENT: Yes: WNL, Atraumatic, Normocephalic Neck: Yes: WNL, Supple, Trachea Midline Cardiovascular: Yes: WNL, Regular Rate and Rhythm Respiratory: Yes: WNL, Regular, CTA Bilaterally Gastrointestinal: Yes: WNL, Normal Bowel Sounds Genitourinary: Yes: WNL Musculoskeletal: Yes: WNL Extremities: Yes: WNL Edema: No Integumentary: Yes: WNL Neurological: Yes: WNL, Alert, Oriented ...Motor Strength: WNL Psychiatric: Yes: WNL Labs: CBC, BMP 12/08/17 06:05 12/08/17 06:05 INR, PTT INR 1.48 (0.82-1.09) H 12/08/17 06:05 Assessment/Plan - Problems (1) Acute on chronic systolic and diastolic heart failure, NYHA class 1 Assessment/Plan: On carvedilol, hydralazine+isordil. s/p Permacath; would start ACEI if pt will be on permanent hemodialysis. F/u BUN/Cr, electrolytes, Is and Os, daily weight. Diuretics per junior programmer analyst cont HD. Code(s): I50.43 - ACUTE ON CHRONIC COMBINED SYSTOLIC AND DIASTOLIC HRT FAIL (2) Fall Assessment/Plan: Large right LE hip hematoma. Pt has had multiple falls; rhabdomyolysis may have occurred, further compromising pt's renal function. Code(s): W19.XXXA - UNSPECIFIED FALL, INITIAL ENCOUNTER Qualifiers: Encounter type: initial encounter Qualified Code(s): W19.XXXA - Unspecified fall, initial encounter (3) Fluid overload Code(s): E87.70 - FLUID OVERLOAD, UNSPECIFIED Qualifiers: Hypervolemia type: unspecified Qualified Code(s): E87.70 - Fluid overload, unspecified (4) Anemia Code(s): D64.9 - ANEMIA, UNSPECIFIED Qualifiers: Anemia type: due to chronic kidney disease Chronic kidney disease stage: stage 4 (severe) Qualified Code(s): N18.4 - Chronic kidney disease, stage 4 ( severe); D63.1 - Anemia in chronic kidney disease (5) Anxiety and depression Code(s): F41.8 - OTHER SPECIFIED ANXIETY DISORDERS (6) BPH (benign prostatic hypertrophy) Code(s): N40.0 - BENIGN PROSTATIC HYPERPLASIA WITHOUT LOWER URINRY TRACT SYMP (7) CVA (cerebral infarction) Code(s): I63.9 - CEREBRAL INFARCTION, UNSPECIFIED Qualifiers: Cerebral infarction mechanism: unspecified mechanism Qualified Code(s): I63.9 - Cerebral infarction, unspecified (8) Diabetes mellitus Code(s): E11.9 - TYPE 2 DIABETES MELLITUS WITHOUT COMPLICATIONS Qualifiers: Diabetes mellitus type: type 2 Diabetes mellitus complication status: with ophthalmic complications Diabetes mellitus complication detail: with diabetic retinopathy (9) HTN (hypertension) Code(s): I10 - ESSENTIAL (PRIMARY) HYPERTENSION (10) Hx of heart artery stent Code(s): Z95.5 - PRESENCE OF CORONARY ANGIOPLASTY IMPLANT AND GRAFT (11) LV (left ventricular) mural thrombus Code(s): ABM6789 - (12) Renal dysfunction Code(s): N28.9 - DISORDER OF KIDNEY AND URETER, UNSPECIFIED (13) Status post myocardial infarction Code(s): I25.2 - OLD MYOCARDIAL INFARCTION (14) Syncope Code(s): R55 - SYNCOPE AND COLLAPSE (15) Sleep apnea Code(s): G47.30 - SLEEP APNEA, UNSPECIFIED (16) Hyperlipidemia Code(s): E78.5 - HYPERLIPIDEMIA, UNSPECIFIED Qualifiers: Hyperlipidemia type: pure hypercholesterolemia Qualified Code(s): E78.00 - Pure hypercholesterolemia, unspecified; E78.0 - Pure hypercholesterolemia
[2017-12-08] MEDS: INSULIN (LEVEMIR) 100 UNITS/ML UNITS SQ SCH (09:52)
[2017-12-08] MEDS: INSULIN SLIDING SCALE (NOVOLOG) 1 VIAL SQ SCH ×3 (10:01→17:31)
--- NOTE | 2017-12-08 10:07 | PN ---
Progress Note, Physician Chief Complaint: The patient was seen in his room. Comfortable. Sitting on the bed side chair. Had vomited once this morning. No chest pain, No SOB. Slept well last night. Ambulatory status suboptimal. History of Present Illness: 77 year old gentleman with PMhx of CAD s/p [place], CHF, Hypertension, IDDM, HLD, CKD , with recent THEE who presented from home with fall and found to have THEE and fluid overlaod/CHF. The respiration has improved marginally...On torsemide 100 mg For HD through Permacath. Still has some evidence of fluid overload. - Current Medication List Current Medications: Active Medications Allopurinol (Zyloprim -) 300 mg PO DAILY [facility] Last Admin: 12/07/17 10:02 Dose: 300 mg Aspirin (Asa -) 81 mg PO DAILY [facility] Last Admin: 12/07/17 10:02 Dose: 81 mg Calcium Acetate (Phoslo -) 667 mg PO TIDCM [facility] Last Admin: 12/07/17 17:24 Dose: 667 mg Carvedilol (Coreg -) 12.5 mg PO BID [facility] Last Admin: 12/07/17 21:14 Dose: 12.5 mg Clopidogrel Bisulfate (Plavix -) 75 mg PO DAILY [facility] Last Admin: 12/07/17 10:02 Dose: 75 mg Docusate Sodium (Colace -) 100 mg PO TID [facility] Last Admin: 12/08/17 05:41 Dose: 100 mg Epoetin Fahad (Procrit -) 10,000 unit SQ ONCE ONE Stop: 12/08/17 10:43 Escitalopram Oxalate (Lexapro -) 5 mg PO HS [facility] Last Admin: 12/07/17 21:14 Dose: 5 mg Folic Acid (Folic Acid -) 1 mg PO DAILY [facility] Last Admin: 12/07/17 10:01 Dose: 1 mg Heparin Sodium (Porcine) (Heparin -) 5,000 unit IVPUSH PRN PRN PRN Reason: Heparin Heparin Sodium (Porcine) (Heparin -) 1,000 unit IVPUSH PRN PRN PRN Reason: Heparin Last Admin: 12/06/17 09:52 Dose: 1,000 unit Heparin Sodium (Porcine) (Heparin -) 5,000 unit IVPUSH PRN PRN PRN Reason: Heparin Hydralazine HCl (Apresoline -) 25 mg PO BID [facility] Last Admin: 12/07/17 21:14 Dose: 25 mg Heparin Sodium/Dextrose (Heparin Infusion -) 25,000 units in 500 mls @ 16 mls/ hr IVPB TITR [facility]; Protocol Last Admin: 12/08/17 06:11 Dose: 900 units/hr, 18 mls/hr Sodium Chloride (Normal Saline -) 250 mls @ 3,000 mls/hr IV PRN PRN PRN Reason: Hypotension during Dialysis Insulin Aspart (Novolog Vial Sliding Scale -) 1 vial SQ HS [facility]; Protocol Last Admin: 12/07/17 21:12 Dose: Not Given Insulin Aspart (Novolog Vial Sliding Scale -) 1 vial SQ TIDCM [facility]; Protocol Last Admin: 12/08/17 10:01 Dose: Not Given Insulin Detemir (Levemir Vial) 30 units SQ DAILY@0800 [facility] Last Admin: 12/08/17 09:52 Dose: 30 units Isosorbide Dinitrate (Isordil -) 20 mg PO DAILY [facility] Last Admin: 12/07/17 17:12 Dose: Not Given Losartan Potassium (Cozaar -) 25 mg PO DAILY [facility] Last Admin: 12/07/17 10:02 Dose: 25 mg Ondansetron HCl (Zofran Injection) 4 mg IVPUSH Q6H PRN PRN Reason: NAUSEA AND/OR VOMITING Polyethylene Glycol (Miralax (For Daily Use) -) 17 gm PO DAILY [facility] Last Admin: 12/07/17 12:21 Dose: 17 gm Rosuvastatin Calcium (Crestor -) 10 mg PO [facility] Last Admin: 12/07/17 21:14 Dose: 10 mg Tamsulosin HCl (Flomax -) 0.4 mg PO [facility] Last Admin: 12/07/17 21:14 Dose: 0.4 mg Torsemide (Demadex -) 100 mg PO DAILY [facility] Warfarin Sodium (Coumadin -) 7.5 mg PO DAILY@1800 [facility] Last Admin: 12/07/17 17:25 Dose: 7.5 mg - Objective Vital Signs: Vital Signs Temperature 98 F 12/08/17 10:01 Pulse Rate 55 L 12/08/17 10:01 Respiratory Rate 20 12/08/17 10:01 Blood Pressure 95/45 12/08/17 10:01 O2 Sat by Pulse Oximetry (%) 97 12/07/17 20:41 Constitutional: Yes: No Distress, Anxious, Pallor Eyes: Yes: Conjunctiva Clear HENT: Yes: Normocephalic Neck: Yes: Trachea Midline Cardiovascular: Yes: S1, S2 Respiratory: Yes: CTA Bilaterally Gastrointestinal: Yes: Normal Bowel Sounds, Soft Genitourinary: No: Bladder Distention, CVA Tenderness - Left, CVA Tenderness - Right Extremities: Yes: Other (AVF left arm) Edema: Yes Edema: LLE: Trace, RLE: Trace Neurological: Yes: Alert, Oriented Labs: CBC, BMP 12/08/17 06:05 12/08/17 06:05 INR, PTT INR 1.48 (0.82-1.09) H 12/08/17 06:05 Problem List - Problems (1) ESRD (end stage renal disease) on dialysis Code(s): N18.6 - END STAGE RENAL DISEASE; Z99.2 - DEPENDENCE ON RENAL DIALYSIS (2) Anemia in CKD (chronic kidney disease) Code(s): N18.9 - CHRONIC KIDNEY DISEASE, UNSPECIFIED; D63.1 - ANEMIA IN CHRONIC KIDNEY DISEASE (3) Congestive heart failure Code(s): I50.9 - HEART FAILURE, UNSPECIFIED Assessment/Plan 77 year old gentleman with PMhx of CAD s/p [place], CHF, Hypertension, IDDM, HLD, CKD , with recent THEE who presented from home with fall and found to have THEE and fluid overlaod/CHF superimposed on advanced CKD. The patient has EDRD now, and is dialysis dependent. On IV Heparin. AVF ( Left arm) with good bruit. Permacath in place, and with no signs of infection. Scheduled for dialysis today. Orders reviewed with the RN. Outpatient HD arrangements in progress at [facility]. Full A/c in progress. Aimee Swan MD
--- NOTE | 2017-12-08 11:51 | PN ---
Progress Note, Physician History of Present Illness: pulmonary alert,weak,-resp distress,oob-chair.BP 95/45 - Current Medication List Current Medications: Active Medications Allopurinol (Zyloprim -) 300 mg PO DAILY [facility] Last Admin: 12/07/17 10:02 Dose: 300 mg Aspirin (Asa -) 81 mg PO DAILY [facility] Last Admin: 12/07/17 10:02 Dose: 81 mg Calcium Acetate (Phoslo -) 667 mg PO TIDCM [facility] Last Admin: 12/07/17 17:24 Dose: 667 mg Carvedilol (Coreg -) 12.5 mg PO BID [facility] Last Admin: 12/07/17 21:14 Dose: 12.5 mg Clopidogrel Bisulfate (Plavix -) 75 mg PO DAILY [facility] Last Admin: 12/07/17 10:02 Dose: 75 mg Docusate Sodium (Colace -) 100 mg PO TID [facility] Last Admin: 12/08/17 05:41 Dose: 100 mg Epoetin Fahad (Procrit -) 10,000 unit SQ ONCE ONE Stop: 12/08/17 10:43 Escitalopram Oxalate (Lexapro -) 5 mg PO HS [facility] Last Admin: 12/07/17 21:14 Dose: 5 mg Folic Acid (Folic Acid -) 1 mg PO DAILY [facility] Last Admin: 12/07/17 10:01 Dose: 1 mg Heparin Sodium (Porcine) (Heparin -) 5,000 unit IVPUSH PRN PRN PRN Reason: Heparin Heparin Sodium (Porcine) (Heparin -) 1,000 unit IVPUSH PRN PRN PRN Reason: Heparin Last Admin: 12/06/17 09:52 Dose: 1,000 unit Heparin Sodium (Porcine) (Heparin -) 5,000 unit IVPUSH PRN PRN PRN Reason: Heparin Hydralazine HCl (Apresoline -) 25 mg PO BID [facility] Last Admin: 12/07/17 21:14 Dose: 25 mg Heparin Sodium/Dextrose (Heparin Infusion -) 25,000 units in 500 mls @ 16 mls/ hr IVPB TITR [facility]; Protocol Last Admin: 12/08/17 06:11 Dose: 900 units/hr, 18 mls/hr Sodium Chloride (Normal Saline -) 250 mls @ 3,000 mls/hr IV PRN PRN PRN Reason: Hypotension during Dialysis Insulin Aspart (Novolog Vial Sliding Scale -) 1 vial SQ HS [facility]; Protocol Last Admin: 12/07/17 21:12 Dose: Not Given Insulin Aspart (Novolog Vial Sliding Scale -) 1 vial SQ TIDCM [facility]; Protocol Last Admin: 12/08/17 10:01 Dose: Not Given Insulin Detemir (Levemir Vial) 30 units SQ DAILY@0800 [facility] Last Admin: 12/08/17 09:52 Dose: 30 units Isosorbide Dinitrate (Isordil -) 20 mg PO DAILY [facility] Last Admin: 12/07/17 17:12 Dose: Not Given Losartan Potassium (Cozaar -) 25 mg PO DAILY [facility] Last Admin: 12/07/17 10:02 Dose: 25 mg Ondansetron HCl (Zofran Injection) 4 mg IVPUSH Q6H PRN PRN Reason: NAUSEA AND/OR VOMITING Polyethylene Glycol (Miralax (For Daily Use) -) 17 gm PO DAILY [facility] Last Admin: 12/07/17 12:21 Dose: 17 gm Rosuvastatin Calcium (Crestor -) 10 mg PO [facility] Last Admin: 12/07/17 21:14 Dose: 10 mg Tamsulosin HCl (Flomax -) 0.4 mg PO [facility] Last Admin: 12/07/17 21:14 Dose: 0.4 mg Torsemide (Demadex -) 100 mg PO DAILY [facility] Warfarin Sodium (Coumadin -) 7.5 mg PO DAILY@1800 [facility] Last Admin: 12/07/17 17:25 Dose: 7.5 mg - Objective Vital Signs: Vital Signs Temperature 98 F 12/08/17 10:01 Pulse Rate 55 L 12/08/17 10:01 Respiratory Rate 20 12/08/17 10:01 Blood Pressure 95/45 12/08/17 10:01 O2 Sat by Pulse Oximetry (%) 96 12/08/17 09:00 Constitutional: Yes: Calm, Thin Eyes: Yes: WNL HENT: Yes: WNL Neck: Yes: WNL Cardiovascular: Yes: Regular Rate and Rhythm, S1, S2 Respiratory: Yes: Rales (BILATERAL RALES) Gastrointestinal: Yes: Normal Bowel Sounds Extremities: Yes: WNL Edema: No Labs: CBC, BMP 12/08/17 06:05 12/08/17 06:05 INR, PTT INR 1.48 (0.82-1.09) H 12/08/17 06:05 Assessment/Plan ASSESSMENT AND PLAN: Acute on Chronic Renal Failure requiring HD Acute on Chronic Systolic/Diastolic Heart Failure improving Volume Overload Hyponatremia CAD LV Thrombus HTN DM Hyperlipidemia - HD as per renal - monitor urine output, creatinine - monitor lytes - Anticoagulation - O2 to keep Spo2 >90% DR CARCAMO Problem List - Problems (1) Fall Code(s): W19.XXXA - UNSPECIFIED FALL, INITIAL ENCOUNTER Qualifiers: Encounter type: initial encounter Qualified Code(s): W19.XXXA - Unspecified fall, initial encounter (2) Fluid overload Code(s): E87.70 - FLUID OVERLOAD, UNSPECIFIED Qualifiers: Hypervolemia type: unspecified Qualified Code(s): E87.70 - Fluid overload, unspecified (3) Hyponatremia Code(s): E87.1 - HYPO-OSMOLALITY AND HYPONATREMIA (4) Acute on chronic systolic CHF (congestive heart failure) Code(s): I50.23 - ACUTE ON CHRONIC SYSTOLIC (CONGESTIVE) HEART FAILURE (5) Acute renal failure Code(s): N17.9 - ACUTE KIDNEY FAILURE, UNSPECIFIED (6) Anemia Code(s): D64.9 - ANEMIA, UNSPECIFIED Qualifiers: Anemia type: due to chronic kidney disease Chronic kidney disease stage: stage 4 (severe) Qualified Code(s): N18.4 - Chronic kidney disease, stage 4 ( severe); D63.1 - Anemia in chronic kidney disease (7) BPH (benign prostatic hypertrophy) Code(s): N40.0 - BENIGN PROSTATIC HYPERPLASIA WITHOUT LOWER URINRY TRACT SYMP (8) Chronic renal disease Code(s): N18.9 - CHRONIC KIDNEY DISEASE, UNSPECIFIED Qualifiers: Chronic kidney disease stage: stage 4 (severe) Qualified Code(s): N18.4 - Chronic kidney disease, stage 4 (severe) (9) Diabetes mellitus Code(s): E11.9 - TYPE 2 DIABETES MELLITUS WITHOUT COMPLICATIONS Qualifiers: Diabetes mellitus complication status: with ophthalmic complications Diabetes mellitus complication detail: with diabetic retinopathy (10) HTN (hypertension) Code(s): I10 - ESSENTIAL (PRIMARY) HYPERTENSION (11) Hx of heart artery stent Code(s): Z95.5 - PRESENCE OF CORONARY ANGIOPLASTY IMPLANT AND GRAFT
[2017-12-08] MEDS: CALCIUM ACETATE 667 MG CAPSULE (FP) PO SCH ×3 (12:34→17:27)
[2017-12-08] MEDS: CLOPIDOGREL BISULFATE 75 MG TABLET (FP) PO SCH (12:39)
[2017-12-08] MEDS: FOLIC ACID 1 MG TABLET (FP) PO SCH (12:39)
--- NOTE | 2017-12-08 13:56 | PN ---
Progress Note (short form) - Note Progress Note: ================> covering note for Dr Hess Current Medications Allopurinol (Zyloprim -) 300 mg PO DAILY [facility] Last Admin: 12/07/17 10:02 Dose: 300 mg Aspirin (Asa -) 81 mg PO DAILY [facility] Last Admin: 12/07/17 10:02 Dose: 81 mg Bisacodyl (Dulcolax -) 5 mg PO DAILY [facility] Calcium Acetate (Phoslo -) 667 mg PO TIDCM [facility] Last Admin: 12/08/17 12:53 Dose: Not Given Carvedilol (Coreg -) 12.5 mg PO BID [facility] Last Admin: 12/07/17 21:14 Dose: 12.5 mg Clopidogrel Bisulfate (Plavix -) 75 mg PO DAILY [facility] Last Admin: 12/08/17 12:39 Dose: 75 mg Docusate Sodium (Colace -) 100 mg PO TID [facility] Last Admin: 12/08/17 05:41 Dose: 100 mg Epoetin Fahad (Procrit -) 10,000 unit SQ ONCE ONE Stop: 12/08/17 10:43 Escitalopram Oxalate (Lexapro -) 5 mg PO HS [facility] Last Admin: 12/07/17 21:14 Dose: 5 mg Folic Acid (Folic Acid -) 1 mg PO DAILY [facility] Last Admin: 12/08/17 12:39 Dose: 1 mg Heparin Sodium (Porcine) (Heparin -) 5,000 unit IVPUSH PRN PRN PRN Reason: Heparin Heparin Sodium (Porcine) (Heparin -) 1,000 unit IVPUSH PRN PRN PRN Reason: Heparin Last Admin: 12/06/17 09:52 Dose: 1,000 unit Heparin Sodium (Porcine) (Heparin -) 5,000 unit IVPUSH PRN PRN PRN Reason: Heparin Hydralazine HCl (Apresoline -) 25 mg PO BID [facility] Last Admin: 12/07/17 21:14 Dose: 25 mg Heparin Sodium/Dextrose (Heparin Infusion -) 25,000 units in 500 mls @ 16 mls/ hr IVPB TITR [facility]; Protocol Last Admin: 12/08/17 06:11 Dose: 900 units/hr, 18 mls/hr Sodium Chloride (Normal Saline -) 250 mls @ 3,000 mls/hr IV PRN PRN PRN Reason: Hypotension during Dialysis Insulin Aspart (Novolog Vial Sliding Scale -) 1 vial SQ HS [facility]; Protocol Last Admin: 12/07/17 21:12 Dose: Not Given Insulin Aspart (Novolog Vial Sliding Scale -) 1 vial SQ TIDCM [facility]; Protocol Last Admin: 12/08/17 12:35 Dose: 12 unit Insulin Detemir (Levemir Vial) 30 units SQ DAILY@0800 [facility] Last Admin: 12/08/17 09:52 Dose: 30 units Isosorbide Dinitrate (Isordil -) 20 mg PO DAILY [facility] Last Admin: 12/07/17 17:12 Dose: Not Given Losartan Potassium (Cozaar -) 25 mg PO DAILY [facility] Last Admin: 12/07/17 10:02 Dose: 25 mg Ondansetron HCl (Zofran Injection) 4 mg IVPUSH Q6H PRN PRN Reason: NAUSEA AND/OR VOMITING Polyethylene Glycol (Miralax (For Daily Use) -) 17 gm PO DAILY [facility] Last Admin: 12/07/17 12:21 Dose: 17 gm Rosuvastatin Calcium (Crestor -) 10 mg PO HS [facility] Last Admin: 12/07/17 21:14 Dose: 10 mg Tamsulosin HCl (Flomax -) 0.4 mg PO [facility] Last Admin: 12/07/17 21:14 Dose: 0.4 mg Torsemide (Demadex -) 100 mg PO DAILY [facility] Warfarin Sodium (Coumadin -) 5 mg PO DAILY@1800 [facility] Laboratory Results - last 24 hr 12/05/17 12/06/17 12/07/17 17:23 12:10 17:14 WBC RBC Hgb Hct MCV MCH MCHC RDW Plt Count MPV PT with INR INR PTT (Actin FS) Sodium Potassium Chloride Carbon Dioxide Anion Gap BUN Creatinine POC Glucometer 193 451 267 Random Glucose Calcium 12/07/17 12/08/17 12/08/17 20:56 06:05 06:05 WBC 5.3 RBC 3.92 L Hgb 10.0 L Hct 32.0 L MCV 81.5 MCH 25.6 L MCHC 31.4 L RDW 23.9 H Plt Count 128 L D MPV 11.2 H PT with INR 16.70 H INR 1.48 H PTT (Actin FS) Sodium Potassium Chloride Carbon Dioxide Anion Gap BUN Creatinine POC Glucometer 143 Random Glucose Calcium 12/08/17 12/08/17 12/08/17 06:05 06:30 12:28 WBC RBC Hgb Hct MCV MCH MCHC RDW Plt Count MPV PT with INR INR PTT (Actin FS) 74.0 H Sodium 133 L Potassium 4.9 Chloride 96 L Carbon Dioxide 26 Anion Gap 11 BUN 68 H D Creatinine 3.8 H POC Glucometer 271 Random Glucose 112 H Calcium 8.7 Vital Signs Temp 98 F 12/08/17 10:01 Pulse 55 L 12/08/17 10:01 Resp 20 12/08/17 10:01 BP 106/54 12/08/17 12:43 Pulse Ox 96 12/08/17 09:00 Intake & Output 12/07/17 12/08/17 12/08/17 23:59 11:59 23:59 Intake Total 356 126 Balance 356 126 Weight 174 lb 2 oz Intake: IV 306 126 HEPARIN INFUSION - 25,000 306 126 units In 500 ml @ 800 UNITS/HR 16 mls/hr IVPB TITR [facility] Rx#:[id number] Oral 50 Other: Voiding Method Diaper Diaper # Unmeasured Voids Void 1 Bowel Movement No Weight Measurement Method Patient Lift Scale CC: none ````````````````````````````` eyes--eomi; anicteric lungs--bilat crackles; unlabored heart--rr chest--with Rt sided catheter abd--NT, Mild distention, BS present ext--2+ pitting edema bilat; LUE AVF; trill felt neuro--awake & responsive; eating his meal in NAD ``````````````````````````````````````` Summ > Nausea/vom--x1 this AM; followed by low BP (?vasovagal); has no GI complaints ; no BMs yet > hypothyroid--based on high TSH (which was mildly high last month); FT4 pending ; mgmt as per Endocrine > CHF--with RF; diast & syst, is volume overloaded: PLAN: cont cardiac meds; on HD to remove fluids; watch chems > DM--BS fluctuate as usual, insulin mgmt by Dr Coates; see Endocrine note > RF--AVF created, to use Permacath for now for HD; see renal note > Fdc use of a/c--and antithrombotics; has LV thrombus; high risk for embolism; resume PO a/c, bridging in progress; watch PLT, coags > CAD--s/p stenting following OK this year > anemia--H/h better; check daily > constip--add dulcolax to Miralax & Colace; no BM yet > Uricemia--on allopurinol ~~~~~~~~~~~~~~~~~ dr Jean....................for Dr Hess
[2017-12-08] MEDS: hydrALAZINE HCL 25 MG TABLET (FP) PO SCH (15:05)
[2017-12-08] MEDS: BISACODYL 5 MG TABLET.DR (FP) PO SCH (15:05)
[2017-12-08] MEDS: LOSARTAN POTASSIUM 25 MG TABLET PO SCH (15:06)
[2017-12-08] MEDS: CARVEDILOL 12.5 MG TABLET (FP) PO SCH (15:06)
[2017-12-08] MEDS: TORSEMIDE 20 MG TABLET (FP) PO SCH (15:06)
[2017-12-08] MEDS: WARFARIN NA 5 MG TABLET (UD) PO SCH (17:27)
[2017-12-08] MEDS: ISOSORBIDE DINITRATE 20 MG TABLET (FP) PO SCH (17:32)
[2017-12-08] MEDS: ALLOPURINOL 300 MG TABLET (FP) PO SCH (17:32)
[2017-12-08] MEDS: ASPIRIN 81 MG CHEWABLE TABLETS PO SCH (19:42)
[2017-12-08] MEDS: POLYETHYLENE GLYCOL 3350 119 GM BTL PO SCH (19:42)
[2017-12-08] MEDS ORDERED: EPOETIN ALFA 10,000 UNIT/1 ML VIAL SQ ONE (20:15)
[2017-12-09] MEDS: CARVEDILOL 12.5 MG TABLET (FP) PO SCH ×2 (00:49→10:04)
[2017-12-09] MEDS: hydrALAZINE HCL 25 MG TABLET (FP) PO SCH ×2 (00:49→10:04)
[2017-12-09] MEDS: INSULIN SLIDING SCALE (NOVOLOG) 1 VIAL SQ SCH ×4 (00:50→17:23)
[2017-12-09] MEDS: TAMSULOSIN HCL 0.4 MG CAP.ER.24H (FP) PO SCH (00:58)
[2017-12-09] MEDS: DOCUSATE SODIUM 100 MG CAPSULE (FP) PO SCH ×3 (00:58→13:43)
[2017-12-09] MEDS: ESCITALOPRAM OXALATE 10 MG TABLET (FP) PO SCH (00:58)
[2017-12-09] MEDS: ROSUVASTATIN CA 10 MG TABLET (FP) PO SCH (00:59)
[2017-12-09 07:12] LABS: HEMATOCRIT 28.7 % (35.4-49); HEMOGLOBIN 9.1 GM/dL (11.7-16.9); MCH 25.7 pg (25.7-33.7); MCHC 31.7 g/dl (32.0-35.9); MEAN CELL VOLUME 80.9 fl (80-96); MEAN PLT VOLUME 10.7 fl (7.5-11.1); PLATELET COUNT 125 K/MM3 (134-434); RBC 3.54 M/mm3 (4.00-5.60); WHITE BLOOD COUNT 4.1 K/mm3 (4.0-10.0)
[2017-12-09 08:18] LABS: INR 2.36 (0.82-1.09); PROTHROMBIN TIME (PATIENT) 26.7 SEC (9.7-13.0)
[2017-12-09] MEDS: INSULIN (LEVEMIR) 100 UNITS/ML UNITS SQ SCH (08:37)
[2017-12-09] MEDS: CALCIUM ACETATE 667 MG CAPSULE (FP) PO SCH ×3 (08:42→17:24)
--- NOTE | 2017-12-09 08:53 | PN ---
Progress Note (short form) - Note Progress Note: Denies any complaints feels better Blood sugar improving Vital Signs Period Temp Pulse Resp BP Sys/Simons Pulse Ox Last 24 Hr 97.6 F-98.7 F 55-81 18-20 95-127/45-78 93-96 PE:AOx3 Neck: supple, No JVD HEENT: PERRL EOMI Lungs: b/L basal crackles Abd: Benign CVS: S1s2 Ext: +Edema, left arm AVF + bruit Neuro: No focal deficit CMP Sodium 133 mmol/L (136-145) L 12/08/17 06:05 Potassium 4.9 mmol/L (3.5-5.1) 12/08/17 06:05 Chloride 96 mmol/L (98-107) L 12/08/17 06:05 Carbon Dioxide 26 mmol/L (21-32) 12/08/17 06:05 Anion Gap 11 (8-16) 12/08/17 06:05 BUN 68 mg/dL (7-18) H D 12/08/17 06:05 Creatinine 3.8 mg/dL (0.7-1.3) H 12/08/17 06:05 Creat Clearance w eGFR 25.10 (>60) 12/05/17 06:18 POC Glucometer 154 UNITS (80-120) 12/08/17 22:48 Random Glucose 112 mg/dL (74-106) H 12/08/17 06:05 Uric Acid 4.1 mg/dL (2.6-7.2) D 12/05/17 06:18 Calcium 8.7 mg/dL (8.5-10.1) 12/08/17 06:05 Phosphorus 3.7 mg/dL (2.5-4.9) D 12/05/17 19:45 Magnesium 2.5 mg/dL (1.8-2.4) H 11/29/17 07:30 Iron 43 ug/dL (38-169) 11/25/17 15:56 TIBC 300 ug/dL (250-450) 11/25/17 15:56 Iron Saturation 14 % (15-55) L 11/25/17 15:56 Ferritin 51.426 ng/ml (16.4-293.9) 11/25/17 15:56 Total Bilirubin 0.5 mg/dL (0.2-1.0) 12/05/17 06:18 AST 18 U/L (15-37) 12/05/17 06:18 ALT 21 U/L (12-78) 12/05/17 06:18 Alkaline Phosphatase 86 U/L (45-117) D 12/05/17 06:18 Creatine Kinase 129 IU/L (39-308) 11/21/17 11:26 Troponin I < 0.02 ng/ml (0.00-0.05) D 11/21/17 11:26 B-Natriuretic Peptide 7918.00 pg/ml (5-450) H 11/21/17 11:30 Total Protein 5.8 g/dl (6.4-8.2) L 12/05/17 06:18 Albumin 2.8 g/dl (3.4-5.0) L 12/05/17 06:18 TSH 13.70 uIU/ml (0.358-3.74) H D 12/05/17 06:18 Free T4 0.95 ng/dl (0.76-1.16) 11/26/17 06:00 Current Medications Generic Name Dose Route Start Last Admin Trade Name Freq PRN Reason Stop Dose Admin Allopurinol 300 mg 12/06/17 10:00 12/08/17 17:32 Zyloprim - PO Not Given DAILY [facility] Aspirin 81 mg 12/06/17 10:00 12/08/17 19:42 Asa - PO Not Given DAILY [facility] Bisacodyl 5 mg 12/08/17 14:00 12/08/17 15:05 Dulcolax - PO 5 mg DAILY [facility] Administration Calcium Acetate 667 mg 12/05/17 17:30 12/09/17 08:42 Phoslo - PO 667 mg TIDCM [facility] Administration Carvedilol 12.5 mg 12/05/17 22:00 12/09/17 00:49 Coreg - PO Not Given BID [facility] Clopidogrel Bisulfate 75 mg 12/06/17 10:00 12/08/17 12:39 Plavix - PO 75 mg DAILY [facility] Administration Docusate Sodium 100 mg 12/05/17 22:00 12/09/17 07:43 Colace - PO 100 mg TID [facility] Administration Escitalopram Oxalate 5 mg 12/05/17 22:00 12/09/17 00:58 Lexapro - PO 5 mg HS [facility] Administration Folic Acid 1 mg 12/06/17 10:00 12/08/17 12:39 Folic Acid - PO 1 mg DAILY [facility] Administration Heparin Sodium (Porcine) 5,000 unit 12/05/17 22:49 Heparin - IVPUSH PRN PRN Heparin Heparin Sodium (Porcine) 1,000 unit 12/05/17 16:50 12/06/17 09:52 Heparin - IVPUSH 1,000 unit PRN PRN Administration Heparin Heparin Sodium (Porcine) 5,000 unit 12/05/17 16:50 Heparin - IVPUSH PRN PRN Heparin Hydralazine HCl 25 mg 12/05/17 22:00 12/09/17 00:49 Apresoline - PO Not Given BID [facility] Heparin Sodium/Dextrose 25,000 units in 500 mls @ 16 mls/hr 12/05/17 22:00 06:11 Heparin Infusion - IVPB 900 units/hr TITR [facility] 18 mls/hr Administration Protocol 800 UNITS/HR Sodium Chloride 250 mls @ 3,000 mls/hr 12/05/17 19:36 Normal Saline - IV PRN PRN Hypotension during Dialysis Insulin Aspart 1 vial 12/05/17 22:00 12/09/17 00:50 Novolog Vial Sliding Scale - SQ Not Given HS [facility] Protocol Insulin Aspart 1 vial 12/05/17 17:30 12/09/17 08:37 Novolog Vial Sliding Scale - SQ 10 unit TIDCM [facility] Administration Protocol Insulin Detemir 30 units 12/07/17 08:53 12/09/17 08:37 Levemir Vial SQ 30 units DAILY@0800 [facility] Administration Isosorbide Dinitrate 20 mg 12/06/17 10:00 12/08/17 17:32 Isordil - PO Not Given DAILY [facility] Losartan Potassium 25 mg 12/06/17 10:00 12/08/17 15:06 Cozaar - PO Not Given DAILY [facility] Ondansetron HCl 4 mg 12/05/17 17:13 Zofran Injection IVPUSH Q6H PRN NAUSEA AND/OR VOMITING Polyethylene Glycol 17 gm 12/06/17 13:45 12/08/17 19:42 Miralax (For Daily Use) - PO Not Given DAILY [facility] Rosuvastatin Calcium 10 mg 12/05/17 22:00 12/09/17 00:59 Crestor - PO 10 mg HS [facility] Administration Tamsulosin HCl 0.4 mg 12/05/17 22:00 12/09/17 00:58 Flomax - PO 0.4 mg HS [facility] Administration Torsemide 100 mg 12/08/17 10:00 12/08/17 15:06 Demadex - PO Not Given DAILY [facility] Warfarin Sodium 5 mg 12/08/17 18:00 12/08/17 17:27 Coumadin - PO 5 mg DAILY@1800 [facility] Administration A/P Acute on Chronic Renal Failure requiring HD Acute on Chronic Systolic/Diastolic Heart Failure Volume Overload DM uncontrolled: some improvement in blood sugar, Pt with h/o hypoglycemia at home so will not attempt tight control ?Hypothyroidism: TSH 13.7 now was 5.99 on 11/21/17 CAD LV Thrombus HTN Hyperlipidemia IV diuretics IV Heparin S/P AV fistula Levemir 30 units daily in the morning, Continue Novolog Coverage, to be given only once food is in the room and pt is ready to eat. Discussed with nursing staff. Repeat TFT next week, No LT4 replacement for now Will F/U Problem List - Problems (1) Acute on chronic systolic and diastolic heart failure, NYHA class 1 Code(s): I50.43 - ACUTE ON CHRONIC COMBINED SYSTOLIC AND DIASTOLIC HRT FAIL (2) Fall Code(s): W19.XXXA - UNSPECIFIED FALL, INITIAL ENCOUNTER Qualifiers: Encounter type: initial encounter Qualified Code(s): W19.XXXA - Unspecified fall, initial encounter (3) Fluid overload Code(s): E87.70 - FLUID OVERLOAD, UNSPECIFIED Qualifiers: Hypervolemia type: unspecified Qualified Code(s): E87.70 - Fluid overload, unspecified (4) Acute renal failure Code(s): N17.9 - ACUTE KIDNEY FAILURE, UNSPECIFIED (5) Diabetes mellitus Code(s): E11.9 - TYPE 2 DIABETES MELLITUS WITHOUT COMPLICATIONS Qualifiers: Diabetes mellitus type: type 2 Diabetes mellitus complication status: with ophthalmic complications Diabetes mellitus complication detail: with diabetic retinopathy
[2017-12-09 09:03] LABS: ANION GAP 11 (8-16); BLOOD UREA NITROGEN 36 mg/dL (7-18); CALCIUM 7.7 mg/dL (8.5-10.1); CHLORIDE 99 mmol/L (98-107); CO2 27 mmol/L (21-32); CREATININE 2.3 mg/dL (0.7-1.3); GLUCOSE,RANDOM 213 mg/dL (74-106); POTASSIUM 3.9 mmol/L (3.5-5.1); SODIUM 137 mmol/L (136-145); URIC ACID 2.7 mg/dL (2.6-7.2)
[2017-12-09] MEDS: ASPIRIN 81 MG CHEWABLE TABLETS PO SCH (10:04)
[2017-12-09] MEDS: CLOPIDOGREL BISULFATE 75 MG TABLET (FP) PO SCH (10:05)
[2017-12-09] MEDS: TORSEMIDE 20 MG TABLET (FP) PO SCH (10:05)
[2017-12-09] MEDS: BISACODYL 5 MG TABLET.DR (FP) PO SCH (10:05)
[2017-12-09] MEDS: ISOSORBIDE DINITRATE 20 MG TABLET (FP) PO SCH (10:05)
[2017-12-09] MEDS: POLYETHYLENE GLYCOL 3350 119 GM BTL PO SCH (10:05)
[2017-12-09] MEDS: FOLIC ACID 1 MG TABLET (FP) PO SCH (10:05)
[2017-12-09] MEDS: LOSARTAN POTASSIUM 25 MG TABLET PO SCH (10:05)
[2017-12-09] MEDS: ALLOPURINOL 300 MG TABLET (FP) PO SCH (10:05)
[2017-12-09 10:12] LABS: INR 2.13 (0.82-1.09); PROTHROMBIN TIME (PATIENT) 24.1 SEC (9.7-13.0)
--- NOTE | 2017-12-09 11:14 | PN ---
Progress Note, Physician Chief Complaint: Pt alert; denies chest pain or dyspnea. Sitting in chair. - Current Medication List Current Medications: Active Medications Allopurinol (Zyloprim -) 300 mg PO DAILY [facility] Last Admin: 12/09/17 10:05 Dose: 300 mg Aspirin (Asa -) 81 mg PO DAILY [facility] Last Admin: 12/09/17 10:04 Dose: 81 mg Bisacodyl (Dulcolax -) 5 mg PO DAILY [facility] Last Admin: 12/09/17 10:05 Dose: 5 mg Calcium Acetate (Phoslo -) 667 mg PO TIDCM [facility] Last Admin: 12/09/17 08:42 Dose: 667 mg Carvedilol (Coreg -) 12.5 mg PO BID [facility] Last Admin: 12/09/17 10:04 Dose: 12.5 mg Clopidogrel Bisulfate (Plavix -) 75 mg PO DAILY [facility] Last Admin: 12/09/17 10:05 Dose: 75 mg Docusate Sodium (Colace -) 100 mg PO TID [facility] Last Admin: 12/09/17 07:43 Dose: 100 mg Escitalopram Oxalate (Lexapro -) 5 mg PO HS [facility] Last Admin: 12/09/17 00:58 Dose: 5 mg Folic Acid (Folic Acid -) 1 mg PO DAILY [facility] Last Admin: 12/09/17 10:05 Dose: 1 mg Heparin Sodium (Porcine) (Heparin -) 5,000 unit IVPUSH PRN PRN PRN Reason: Heparin Heparin Sodium (Porcine) (Heparin -) 1,000 unit IVPUSH PRN PRN PRN Reason: Heparin Last Admin: 12/06/17 09:52 Dose: 1,000 unit Heparin Sodium (Porcine) (Heparin -) 5,000 unit IVPUSH PRN PRN PRN Reason: Heparin Hydralazine HCl (Apresoline -) 25 mg PO BID [facility] Last Admin: 12/09/17 10:04 Dose: 25 mg Heparin Sodium/Dextrose (Heparin Infusion -) 25,000 units in 500 mls @ 16 mls/ hr IVPB TITR [facility]; Protocol Last Admin: 12/08/17 06:11 Dose: 900 units/hr, 18 mls/hr Sodium Chloride (Normal Saline -) 250 mls @ 3,000 mls/hr IV PRN PRN PRN Reason: Hypotension during Dialysis Insulin Aspart (Novolog Vial Sliding Scale -) 1 vial SQ HS [facility]; Protocol Last Admin: 12/09/17 00:50 Dose: Not Given Insulin Aspart (Novolog Vial Sliding Scale -) 1 vial SQ TIDCM [facility]; Protocol Last Admin: 12/09/17 08:37 Dose: 10 unit Insulin Detemir (Levemir Vial) 30 units SQ DAILY@0800 [facility] Last Admin: 12/09/17 08:37 Dose: 30 units Isosorbide Dinitrate (Isordil -) 20 mg PO DAILY [facility] Last Admin: 12/09/17 10:05 Dose: 20 mg Losartan Potassium (Cozaar -) 25 mg PO DAILY [facility] Last Admin: 12/09/17 10:05 Dose: 25 mg Ondansetron HCl (Zofran Injection) 4 mg IVPUSH Q6H PRN PRN Reason: NAUSEA AND/OR VOMITING Polyethylene Glycol (Miralax (For Daily Use) -) 17 gm PO DAILY [facility] Last Admin: 12/09/17 10:05 Dose: 17 gm Rosuvastatin Calcium (Crestor -) 10 mg PO [facility] Last Admin: 12/09/17 00:59 Dose: 10 mg Tamsulosin HCl (Flomax -) 0.4 mg PO [facility] Last Admin: 12/09/17 00:58 Dose: 0.4 mg Torsemide (Demadex -) 100 mg PO DAILY [facility] Last Admin: 12/09/17 10:05 Dose: 100 mg Warfarin Sodium (Coumadin -) 5 mg PO DAILY@1800 [facility] Last Admin: 12/08/17 17:27 Dose: 5 mg - Objective Vital Signs: Vital Signs Temperature 98.7 F 12/09/17 06:26 Pulse Rate 76 12/09/17 06:26 Respiratory Rate 20 12/09/17 06:26 Blood Pressure 114/56 12/09/17 06:26 O2 Sat by Pulse Oximetry (%) 93 L 12/08/17 21:00 Labs: CBC, BMP 12/09/17 06:57 12/09/17 06:57 INR, PTT INR 2.13 (0.82-1.09) H 12/09/17 09:30 Problem List - Problems (1) Acute on chronic systolic and diastolic heart failure, NYHA class 1 Assessment/Plan: S/p hemodialysis yesterday. Continue present medications. Improved respiration. F/u electrolytes. Encourage physical rehab/walking. INR 2.3; will stop heparin; continue warfarin. Code(s): I50.43 - ACUTE ON CHRONIC COMBINED SYSTOLIC AND DIASTOLIC HRT FAIL (2) Fall Assessment/Plan: Large right LE hip hematoma. Pt has had multiple falls; rhabdomyolysis may have occurred, further compromising pt's renal function. CK now 137. Hb 9.8. Code(s): W19.XXXA - UNSPECIFIED FALL, INITIAL ENCOUNTER Qualifiers: Encounter type: initial encounter Qualified Code(s): W19.XXXA - Unspecified fall, initial encounter (3) Fluid overload Assessment/Plan: f/u with apparel cutter regarding hemodialysis schedule. Code(s): E87.70 - FLUID OVERLOAD, UNSPECIFIED Qualifiers: Hypervolemia type: unspecified Qualified Code(s): E87.70 - Fluid overload, unspecified (4) Anemia Code(s): D64.9 - ANEMIA, UNSPECIFIED Qualifiers: Anemia type: due to chronic kidney disease Chronic kidney disease stage: stage 4 (severe) Qualified Code(s): N18.4 - Chronic kidney disease, stage 4 ( severe); D63.1 - Anemia in chronic kidney disease (5) Anxiety and depression Code(s): F41.8 - OTHER SPECIFIED ANXIETY DISORDERS (6) BPH (benign prostatic hypertrophy) Code(s): N40.0 - BENIGN PROSTATIC HYPERPLASIA WITHOUT LOWER URINRY TRACT SYMP (7) CVA (cerebral infarction) Code(s): I63.9 - CEREBRAL INFARCTION, UNSPECIFIED Qualifiers: Cerebral infarction mechanism: unspecified mechanism Qualified Code(s): I63.9 - Cerebral infarction, unspecified (8) Diabetes mellitus Code(s): E11.9 - TYPE 2 DIABETES MELLITUS WITHOUT COMPLICATIONS Qualifiers: Diabetes mellitus type: type 2 Diabetes mellitus complication status: with ophthalmic complications Diabetes mellitus complication detail: with diabetic retinopathy (9) HTN (hypertension) Code(s): I10 - ESSENTIAL (PRIMARY) HYPERTENSION (10) Hx of heart artery stent Code(s): Z95.5 - PRESENCE OF CORONARY ANGIOPLASTY IMPLANT AND GRAFT (11) LV (left ventricular) mural thrombus Code(s): [id number] - (12) Renal dysfunction Code(s): N28.9 - DISORDER OF KIDNEY AND URETER, UNSPECIFIED (13) Status post myocardial infarction Code(s): I25.2 - OLD MYOCARDIAL INFARCTION (14) Syncope Code(s): R55 - SYNCOPE AND COLLAPSE (15) Sleep apnea Code(s): G47.30 - SLEEP APNEA, UNSPECIFIED (16) Hyperlipidemia Code(s): E78.5 - HYPERLIPIDEMIA, UNSPECIFIED Qualifiers: Hyperlipidemia type: pure hypercholesterolemia Qualified Code(s): E78.00 - Pure hypercholesterolemia, unspecified; E78.0 - Pure hypercholesterolemia
--- NOTE | 2017-12-09 11:19 | PN ---
Progress Note, Physician History of Present Illness: pulmonary alert,oob-chair,comfortable,-resp distress - Current Medication List Current Medications: Active Medications Allopurinol (Zyloprim -) 300 mg PO DAILY [facility] Last Admin: 12/09/17 10:05 Dose: 300 mg Aspirin (Asa -) 81 mg PO DAILY [facility] Last Admin: 12/09/17 10:04 Dose: 81 mg Bisacodyl (Dulcolax -) 5 mg PO DAILY [facility] Last Admin: 12/09/17 10:05 Dose: 5 mg Calcium Acetate (Phoslo -) 667 mg PO TIDCM [facility] Last Admin: 12/09/17 08:42 Dose: 667 mg Carvedilol (Coreg -) 12.5 mg PO BID [facility] Last Admin: 12/09/17 10:04 Dose: 12.5 mg Clopidogrel Bisulfate (Plavix -) 75 mg PO DAILY [facility] Last Admin: 12/09/17 10:05 Dose: 75 mg Docusate Sodium (Colace -) 100 mg PO TID [facility] Last Admin: 12/09/17 07:43 Dose: 100 mg Escitalopram Oxalate (Lexapro -) [address] [facility] Last Admin: 12/09/17 00:58 Dose: 5 mg Folic Acid (Folic Acid -) 1 mg PO DAILY [facility] Last Admin: 12/09/17 10:05 Dose: 1 mg Heparin Sodium (Porcine) (Heparin -) 5,000 unit IVPUSH PRN PRN PRN Reason: Heparin Heparin Sodium (Porcine) (Heparin -) 1,000 unit IVPUSH PRN PRN PRN Reason: Heparin Last Admin: 12/06/17 09:52 Dose: 1,000 unit Heparin Sodium (Porcine) (Heparin -) 5,000 unit IVPUSH PRN PRN PRN Reason: Heparin Hydralazine HCl (Apresoline -) 25 mg PO BID [facility] Last Admin: 12/09/17 10:04 Dose: 25 mg Sodium Chloride (Normal Saline -) 250 mls @ 3,000 mls/hr IV PRN PRN PRN Reason: Hypotension during Dialysis Insulin Aspart (Novolog Vial Sliding Scale -) [address] [facility]; Protocol Last Admin: 12/09/17 00:50 Dose: Not Given Insulin Aspart (Novolog Vial Sliding Scale -) 1 vial SQ TIDCM [facility]; Protocol Last Admin: 12/09/17 08:37 Dose: 10 unit Insulin Detemir (Levemir Vial) 30 units SQ DAILY@0800 [facility] Last Admin: 12/09/17 08:37 Dose: 30 units Isosorbide Dinitrate (Isordil -) 20 mg PO DAILY [facility] Last Admin: 12/09/17 10:05 Dose: 20 mg Losartan Potassium (Cozaar -) 25 mg PO DAILY [facility] Last Admin: 12/09/17 10:05 Dose: 25 mg Ondansetron HCl (Zofran Injection) 4 mg IVPUSH Q6H PRN PRN Reason: NAUSEA AND/OR VOMITING Polyethylene Glycol (Miralax (For Daily Use) -) 17 gm PO DAILY [facility] Last Admin: 12/09/17 10:05 Dose: 17 gm Rosuvastatin Calcium (Crestor -) [address] [facility] Last Admin: 12/09/17 00:59 Dose: 10 mg Tamsulosin HCl (Flomax -) 0.[address] [facility] Last Admin: 12/09/17 00:58 Dose: 0.4 mg Torsemide (Demadex -) 100 mg PO DAILY [facility] Last Admin: 12/09/17 10:05 Dose: 100 mg Warfarin Sodium (Coumadin -) 5 mg PO DAILY@1800 [facility] Last Admin: 12/08/17 17:27 Dose: 5 mg - Objective Vital Signs: Vital Signs Temperature 98.7 F 12/09/17 06:26 Pulse Rate 76 12/09/17 06:26 Respiratory Rate 20 12/09/17 06:26 Blood Pressure 114/56 12/09/17 06:26 O2 Sat by Pulse Oximetry (%) 93 L 12/08/17 21:00 Constitutional: Yes: Well Nourished, Calm Eyes: Yes: WNL HENT: Yes: WNL Neck: Yes: WNL Cardiovascular: Yes: Regular Rate and Rhythm, S1, S2 Respiratory: Yes: Rales (kartik crackles 1/3 up) Gastrointestinal: Yes: Normal Bowel Sounds, Soft Extremities: Yes: WNL Edema: No Labs: CBC, BMP 12/09/17 06:57 12/09/17 06:57 INR, PTT INR 2.13 (0.82-1.09) H 12/09/17 09:30 Assessment/Plan ASSESSMENT AND PLAN: Acute on Chronic Renal Failure requiring HD Acute on Chronic Systolic/Diastolic Heart Failure improving Volume Overload Hyponatremia CAD LV Thrombus HTN DM Hyperlipidemia - HD as per renal - monitor urine output, creatinine - monitor lytes - Anticoagulation - O2 to keep Spo2 >90% - PT DR CARCAMO Problem List - Problems (1) Fall Code(s): W19.XXXA - UNSPECIFIED FALL, INITIAL ENCOUNTER Qualifiers: Encounter type: initial encounter Qualified Code(s): W19.XXXA - Unspecified fall, initial encounter (2) Fluid overload Code(s): E87.70 - FLUID OVERLOAD, UNSPECIFIED Qualifiers: Hypervolemia type: unspecified Qualified Code(s): E87.70 - Fluid overload, unspecified (3) Hyponatremia Code(s): E87.1 - HYPO-OSMOLALITY AND HYPONATREMIA (4) Acute on chronic systolic CHF (congestive heart failure) Code(s): I50.23 - ACUTE ON CHRONIC SYSTOLIC (CONGESTIVE) HEART FAILURE (5) Acute renal failure Code(s): N17.9 - ACUTE KIDNEY FAILURE, UNSPECIFIED (6) Anemia Code(s): D64.9 - ANEMIA, UNSPECIFIED Qualifiers: Anemia type: due to chronic kidney disease Chronic kidney disease stage: stage 4 (severe) Qualified Code(s): N18.4 - Chronic kidney disease, stage 4 ( severe); D63.1 - Anemia in chronic kidney disease (7) BPH (benign prostatic hypertrophy) Code(s): N40.0 - BENIGN PROSTATIC HYPERPLASIA WITHOUT LOWER URINRY TRACT SYMP (8) Chronic renal disease Code(s): N18.9 - CHRONIC KIDNEY DISEASE, UNSPECIFIED Qualifiers: Chronic kidney disease stage: stage 4 (severe) Qualified Code(s): N18.4 - Chronic kidney disease, stage 4 (severe) (9) Diabetes mellitus Code(s): E11.9 - TYPE 2 DIABETES MELLITUS WITHOUT COMPLICATIONS Qualifiers: Diabetes mellitus complication status: with ophthalmic complications Diabetes mellitus complication detail: with diabetic retinopathy (10) HTN (hypertension) Code(s): I10 - ESSENTIAL (PRIMARY) HYPERTENSION (11) Hx of heart artery stent Code(s): Z95.5 - PRESENCE OF CORONARY ANGIOPLASTY IMPLANT AND GRAFT
[2017-12-09 11:27] LABS: MAGNESIUM 2.3 mg/dL (1.8-2.4)
--- NOTE | 2017-12-09 15:03 | PN ---
Progress Note, Physician Chief Complaint: The patient was seen in his room. Comfortable. Sitting on the bed side chair. Seems depressed. No chest pain, No SOB. Ambulatory status suboptimal. Had uneventful HD yesterday. History of Present Illness: 77 year old gentleman with PMhx of CAD s/p [place], CHF, Hypertension, IDDM, HLD, CKD , with recent THEE who presented from home with fall and found to have THEE and fluid overlaod/CHF. The respiration has improved marginally...On Torsemide 100 mg - Current Medication List Current Medications: Active Medications Allopurinol (Zyloprim -) 300 mg PO DAILY [facility] Last Admin: 12/09/17 10:05 Dose: 300 mg Aspirin (Asa -) 81 mg PO DAILY [facility] Last Admin: 12/09/17 10:04 Dose: 81 mg Bisacodyl (Dulcolax -) 5 mg PO DAILY [facility] Last Admin: 12/09/17 10:05 Dose: 5 mg Calcium Acetate (Phoslo -) 667 mg PO TIDCM [facility] Last Admin: 12/09/17 12:23 Dose: 667 mg Carvedilol (Coreg -) 12.5 mg PO BID [facility] Last Admin: 12/09/17 10:04 Dose: 12.5 mg Clopidogrel Bisulfate (Plavix -) 75 mg PO DAILY [facility] Last Admin: 12/09/17 10:05 Dose: 75 mg Docusate Sodium (Colace -) 100 mg PO TID [facility] Last Admin: 12/09/17 13:43 Dose: 100 mg Escitalopram Oxalate (Lexapro -) 5 mg PO HS [facility] Last Admin: 12/09/17 00:58 Dose: 5 mg Folic Acid (Folic Acid -) 1 mg PO DAILY [facility] Last Admin: 12/09/17 10:05 Dose: 1 mg Heparin Sodium (Porcine) (Heparin -) 5,000 unit IVPUSH PRN PRN PRN Reason: Heparin Heparin Sodium (Porcine) (Heparin -) 1,000 unit IVPUSH PRN PRN PRN Reason: Heparin Last Admin: 12/06/17 09:52 Dose: 1,000 unit Heparin Sodium (Porcine) (Heparin -) 5,000 unit IVPUSH PRN PRN PRN Reason: Heparin Hydralazine HCl (Apresoline -) 25 mg PO BID [facility] Last Admin: 06/12/18 10:04 Dose: 25 mg Sodium Chloride (Normal Saline -) 250 mls @ 3,000 mls/hr IV PRN PRN PRN Reason: Hypotension during Dialysis Insulin Aspart (Novolog Vial Sliding Scale -) 1 vial SQ HS [facility]; Protocol Last Admin: 12/09/17 00:50 Dose: Not Given Insulin Aspart (Novolog Vial Sliding Scale -) 1 vial SQ TIDCM [facility]; Protocol Last Admin: 12/09/17 12:23 Dose: 10 unit Insulin Detemir (Levemir Vial) 30 units SQ DAILY@0800 [facility] Last Admin: 12/09/17 08:37 Dose: 30 units Isosorbide Dinitrate (Isordil -) 20 mg PO DAILY [facility] Last Admin: 12/09/17 10:05 Dose: 20 mg Losartan Potassium (Cozaar -) 25 mg PO DAILY [facility] Last Admin: 12/09/17 10:05 Dose: 25 mg Ondansetron HCl (Zofran Injection) 4 mg IVPUSH Q6H PRN PRN Reason: NAUSEA AND/OR VOMITING Polyethylene Glycol (Miralax (For Daily Use) -) 17 gm PO DAILY [facility] Last Admin: 12/09/17 10:05 Dose: 17 gm Rosuvastatin Calcium (Crestor -) 10 mg PO [facility] Last Admin: 12/09/17 00:59 Dose: 10 mg Tamsulosin HCl (Flomax -) 0.4 mg PO [facility] Last Admin: 12/09/17 00:58 Dose: 0.4 mg Torsemide (Demadex -) 100 mg PO DAILY [facility] Last Admin: 12/09/17 10:05 Dose: 100 mg Warfarin Sodium (Coumadin -) 5 mg PO DAILY@1800 [facility] Last Admin: 12/08/17 17:27 Dose: 5 mg - Objective Vital Signs: Vital Signs Temperature 97.4 F L 12/09/17 14:47 Pulse Rate 80 12/09/17 14:47 Respiratory Rate 20 12/09/17 14:47 Blood Pressure 91/52 12/09/17 14:47 O2 Sat by Pulse Oximetry (%) 95 12/09/17 09:00 Constitutional: Yes: Calm, Pallor HENT: Yes: Atraumatic Cardiovascular: Yes: Pulse Irregular, S1, S2 Respiratory: Yes: CTA Bilaterally, Diminished Gastrointestinal: Yes: Normal Bowel Sounds, Soft Genitourinary: No: Bladder Distention, CVA Tenderness - Left, CVA Tenderness - Right Musculoskeletal: Yes: Joint Stiffness Extremities: Yes: Other (AVF left arm with good bruit) Edema: LLE: Trace, RLE: Trace Neurological: Yes: Alert, Oriented Psychiatric: Yes: Other (seems depressed) Labs: CBC, BMP 12/09/17 06:57 12/09/17 06:57 INR, PTT INR 2.13 (0.82-1.09) H 12/09/17 09:30 Problem List - Problems (1) ESRD (end stage renal disease) on dialysis Code(s): N18.6 - END STAGE RENAL DISEASE; Z99.2 - DEPENDENCE ON RENAL DIALYSIS (2) Anemia in CKD (chronic kidney disease) Code(s): N18.9 - CHRONIC KIDNEY DISEASE, UNSPECIFIED; D63.1 - ANEMIA IN CHRONIC KIDNEY DISEASE (3) Congestive heart failure Code(s): I50.9 - HEART FAILURE, UNSPECIFIED Assessment/Plan 77 year old gentleman with PMhx of CAD s/p [place], CHF, Hypertension, IDDM, HLD, CKD , with recent THEE who presented from home with fall and found to have THEE and fluid overlaod/CHF superimposed on advanced CKD. The patient has EDRD now, and is dialysis dependent. AVF ( Left arm) with good bruit. Permacath in place, and with no signs of infection. Outpatient HD arrangements done in [facility]...TTS at 2 PM Reviewed the discharge plans with the patient and his , Dr. Davila. Aimee Swan MD
[2017-12-09] MEDS: WARFARIN NA 5 MG TABLET (UD) PO SCH (17:24)
--- NOTE | 2017-12-09 17:24 | PN ---
Progress Note (short form) - Note Progress Note: @@@@@@@@@@@@@@@@@@@@@@@ cover for Dr Hess Current Medications Allopurinol (Zyloprim -) 300 mg PO DAILY [facility] Last Admin: 12/09/17 10:05 Dose: 300 mg Aspirin (Asa -) 81 mg PO DAILY [facility] Last Admin: 12/09/17 10:04 Dose: 81 mg Bisacodyl (Dulcolax -) 5 mg PO DAILY [facility] Last Admin: 12/09/17 10:05 Dose: 5 mg Calcium Acetate (Phoslo -) 667 mg PO TIDCM [facility] Last Admin: 12/09/17 12:23 Dose: 667 mg Carvedilol (Coreg -) 12.5 mg PO BID [facility] Last Admin: 12/09/17 10:04 Dose: 12.5 mg Clopidogrel Bisulfate (Plavix -) 75 mg PO DAILY [facility] Last Admin: 12/09/17 10:05 Dose: 75 mg Docusate Sodium (Colace -) 100 mg PO TID [facility] Last Admin: 12/09/17 13:43 Dose: 100 mg Escitalopram Oxalate (Lexapro -) 5 mg PO HS [facility] Last Admin: 12/09/17 00:58 Dose: 5 mg Folic Acid (Folic Acid -) 1 mg PO DAILY [facility] Last Admin: 12/09/17 10:05 Dose: 1 mg Heparin Sodium (Porcine) (Heparin -) 5,000 unit IVPUSH PRN PRN PRN Reason: Heparin Heparin Sodium (Porcine) (Heparin -) 1,000 unit IVPUSH PRN PRN PRN Reason: Heparin Last Admin: 12/06/17 09:52 Dose: 1,000 unit Heparin Sodium (Porcine) (Heparin -) 5,000 unit IVPUSH PRN PRN PRN Reason: Heparin Hydralazine HCl (Apresoline -) 25 mg PO BID [facility] Last Admin: 12/09/17 10:04 Dose: 25 mg Sodium Chloride (Normal Saline -) 250 mls @ 3,000 mls/hr IV PRN PRN PRN Reason: Hypotension during Dialysis Insulin Aspart (Novolog Vial Sliding Scale -) 1 vial SQ HS [facility]; Protocol Last Admin: 12/09/17 00:50 Dose: Not Given Insulin Aspart (Novolog Vial Sliding Scale -) 1 vial SQ TIDCM [facility]; Protocol Last Admin: 12/09/17 12:23 Dose: 10 unit Insulin Detemir (Levemir Vial) 30 units SQ DAILY@0800 [facility] Last Admin: 12/09/17 08:37 Dose: 30 units Isosorbide Dinitrate (Isordil -) 20 mg PO DAILY [facility] Last Admin: 12/09/17 10:05 Dose: 20 mg Losartan Potassium (Cozaar -) 25 mg PO DAILY [facility] Last Admin: 12/09/17 10:05 Dose: 25 mg Ondansetron HCl (Zofran Injection) 4 mg IVPUSH Q6H PRN PRN Reason: NAUSEA AND/OR VOMITING Polyethylene Glycol (Miralax (For Daily Use) -) 17 gm PO DAILY [facility] Last Admin: 12/09/17 10:05 Dose: 17 gm Rosuvastatin Calcium (Crestor -) 10 mg PO [facility] Last Admin: 12/09/17 00:59 Dose: 10 mg Tamsulosin HCl (Flomax -) 0.4 mg PO [facility] Last Admin: 12/09/17 00:58 Dose: 0.4 mg Torsemide (Demadex -) 100 mg PO DAILY [facility] Last Admin: 12/09/17 10:05 Dose: 100 mg Warfarin Sodium (Coumadin -) 5 mg PO DAILY@1800 [facility] Last Admin: 12/08/17 17:27 Dose: 5 mg Laboratory Results - last 24 hr 12/08/17 12/08/17 12/09/17 17:25 22:48 06:57 WBC 4.1 RBC 3.54 L Hgb 9.1 L Hct 28.7 L MCV 80.9 MCH 25.7 MCHC 31.7 L RDW 24.0 H Plt Count 125 L MPV 10.7 PT with INR INR PTT (Actin FS) Sodium Potassium Chloride Carbon Dioxide Anion Gap BUN Creatinine POC Glucometer 322 154 Random Glucose Uric Acid Calcium Magnesium 12/09/17 12/09/17 12/09/17 06:57 06:57 06:57 WBC RBC Hgb Hct MCV MCH MCHC RDW Plt Count MPV PT with INR 26.70 H INR 2.36 H D PTT (Actin FS) > 400.0 H Sodium 137 Potassium 3.9 D Chloride 99 Carbon Dioxide 27 Anion Gap 11 BUN 36 H D Creatinine 2.3 H D POC Glucometer Random Glucose 213 H D Uric Acid 2.7 D Calcium 7.7 L Magnesium 2.3 12/09/17 12/09/17 12/09/17 06:57 08:34 09:30 WBC RBC Hgb Hct MCV MCH MCHC RDW Plt Count MPV PT with INR 24.10 H INR 2.13 H PTT (Actin FS) Sodium Potassium Chloride Carbon Dioxide Anion Gap BUN Creatinine POC Glucometer 203 Random Glucose Uric Acid Calcium Magnesium Cancelled 12/09/17 12/09/17 09:30 11:50 WBC RBC Hgb Hct MCV MCH MCHC RDW Plt Count MPV PT with INR INR PTT (Actin FS) 56.8 H D Sodium Potassium Chloride Carbon Dioxide Anion Gap BUN Creatinine POC Glucometer 227 Random Glucose Uric Acid Calcium Magnesium Vital Signs Temp 97.4 F L 12/09/17 14:47 Pulse 80 12/09/17 14:47 Resp 20 12/09/17 14:47 BP 91/52 12/09/17 14:47 Pulse Ox 95 12/09/17 09:00 Intake & Output 12/08/17 12/09/17 12/09/17 23:59 11:59 23:59 Intake Total 416 Balance 416 Weight 172 lb Intake: IV 216 HEPARIN INFUSION - 25,000 216 units In 500 ml @ 800 UNITS/HR 16 mls/hr IVPB TITR [facility] Rx#:[id number] Oral 200 Other: Voiding Method Diaper Diaper # Unmeasured Voids Void 2 2 Weight Measurement Method Patient Lift Scale CC: none ````````````````````````````` eyes--eomi; anicteric lungs--bilat crackles; unlabored heart--rr chest--with Rt sided catheter abd--NT, Mild distention, BS present ext--2+ pitting edema bilat; LUE AVF; trill felt neuro--awake & responsive; good eye contact; follows commands ``````````````````````````````````````` Summ > hypothyroid--based on high TSH (which was mildly high last month); FT4 pending ; mgmt as per Endocrine > CHF--with RF; diast & syst, is volume overloaded: PLAN: cont cardiac meds; cont HD as OP to remove fluids; see renal note > DM--BS fluctuate as usual, insulin mgmt by Dr Coates; see Endocrine note > RF--AVF created, to use Permacath for now for HD; see renal note > Fdc use of a/c--and antithrombotics; has LV thrombus; high risk for embolism; bridging complete; will d/c home, INR 2.3 > CAD--s/p stenting following AK this year > anemia--H/h has remained stable > constip--add dulcolax to Miralax & Colace; no BM yet; discussed with who will administer laxatives at home > Uricemia--on allopurinol; urate level good. ~~~~~~~~~~~~~~~~~ dr Jean....................for Dr Hess
[2017-12-09] MEDS ORDERED: INSULIN (NOVOLOG) ASPART 100 UNITS/ML 10ML VIAL ONE (18:02)
[2017-12-09 18:35] VITALS: BP 106/54; PULSE 77; TEMP 98.7
== END 2017-12-09 18:36 | disposition home or self-care (01) | DRG 264 ==
LOC: JER 09:59 → JERBED 13:19 → JICU 17:38 → J4S 11-26 14:22
PROVIDERS: ADMIT Internal Medicine Hematology & Oncology; ATTEND Internal Medicine Hematology & Oncology
PROC: 02HV33Z Insertion of Infusion Device into Superior Vena Cava, Percutaneous Approach (ICD-10-PCS; 2017-11-22)
PROC: B548ZZA Ultrasonography of Superior Vena Cava, Guidance (ICD-10-PCS; 2017-11-22)
PROC: 02H633Z Insertion of Infusion Device into Right Atrium, Percutaneous Approach (ICD-10-PCS; 2017-12-01)
PROC: B244ZZZ Ultrasonography of Right Heart (ICD-10-PCS; 2017-12-01)
PROC: 5A1D70Z Performance of Urinary Filtration, Intermittent, Less than 6 Hours Per Day (ICD-10-PCS; 2017-12-01)
PROC: 03180ZD Bypass Left Brachial Artery to Upper Arm Vein, Open Approach (ICD-10-PCS; principal; 2017-12-05 14:30)
DX: I13.2 Hypertensive heart and chronic kidney disease with heart failure and with stage 5 chronic kidney disease, or end stage renal disease (principal); I50.43 Acute on chronic combined systolic (congestive) and diastolic (congestive) heart failure; N18.6 End stage renal disease; E87.1 Hypo-osmolality and hyponatremia; N17.9 Acute kidney failure, unspecified; N18.4 Chronic kidney disease, stage 4 (severe); E78.5 Hyperlipidemia, unspecified; Z79.4 Long term (current) use of insulin; I25.10 Atherosclerotic heart disease of native coronary artery without angina pectoris; I25.2 Old myocardial infarction; E11.22 Type 2 diabetes mellitus with diabetic chronic kidney disease; D64.9 Anemia, unspecified; N40.0 Benign prostatic hyperplasia without lower urinary tract symptoms; F41.8 Other specified anxiety disorders; Z86.73 Personal history of transient ischemic attack (TIA), and cerebral infarction without residual deficits; G47.30 Sleep apnea, unspecified; D63.8 Anemia in other chronic diseases classified elsewhere; I48.91 Unspecified atrial fibrillation; I51.3 Intracardiac thrombosis, not elsewhere classified; Z95.5 Presence of coronary angioplasty implant and graft; R11.2 Nausea with vomiting, unspecified; E11.65 Type 2 diabetes mellitus with hyperglycemia; K59.00 Constipation, unspecified; S70.01XA Contusion of right hip, initial encounter; W19.XXXA Unspecified fall, initial encounter; Y92.098 Other place in other non-institutional residence as the place of occurrence of the external cause; Y99.8 Other external cause status
CPT/HCPCS: 36415; 70450-TC; 71045-TC-FY; 73523-TC-FY; 73700-TC-RT; 76000-TC-FY; 80048; 80053; 81003; 81015; 82550; 82565; 82570; 82728; 82947; 82962; 83540; 83550; 83735; 83880; 84100; 84156; 84300; 84439; 84443; 84484; 84520; 84540; 84550; 85025; 85027; 85610; 85730; 86704; 86706; 86708; 87086; 87340; 93005; 93010; 93970-TC; 94760; 97116-GP; 97161-GP; 99284-25; J0885; J1644; J1756; J2597; J7030; P9047

== ENCOUNTER 2018-02-12 21:02 | Inpatient (IN) | payer OTHER, MEDICARE ==
--- NOTE | 2018-02-12 21:18 | PDOC ---
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 The patients (Dr. Davila ) states that this afternoon he vomited and noted that his blood pressure was relatively low and he was feeling weak. She brought him to [facility] ER where he has history. She states that he began getting dialyzed November and receives dialysis every Friday, , and Friday but did not go to Dialysis today. Earlier in the day he was seen by the vascular surgeon (Dr. Huff) for a renal angioplasty and was NPO. Surgical Hx: December 05 2017 - Renal angioplasty. 02/12/18 - Left AVF with stenosis. NH (Jul) with multiple stent placement. PCP: Coleman Hess <Suzanna Hayden - Last Filed: 02/12/18 23:33> <Valerie Wright - Last Filed: 02/14/18 03:50> - General Stated Complaint: WEAKNESS Time Seen by Provider: 02/12/18 21:17 Past History <Suzanna Hayden - Last Filed: 02/12/18 23:33> - Past Medical History Anemia: (GI BLEED) Asthma: No Cancer: No Cardiac Disorders: Yes (NH, Stents) CVA: Yes (1999, NO RESIDUAL.) COPD: No CHF: Yes Dementia: No Diabetes: Yes (IDDM) GI Disorders: Yes (GI BLEED) Disorders: Yes (BPH) HTN: Yes Hypercholesterolemia: Yes Liver Disease: No Seizures: No Thyroid Disease: No - Surgical History Abdominal Surgery: No Appendectomy: No Cardiac Surgery: Yes (multiple stents) Cholecystectomy: No Lung Surgery: No Neurologic Surgery: No Orthopedic Surgery: Yes (right shoulder sx) - Immunization History Immunization Up to Date: Yes - Suicide/Smoking/Psychosocial Hx Smoking History: Never smoked Have you smoked in the past 12 months: No Hx Alcohol Use: No Drug/Substance Use Hx: No Substance Use Type: None Hx Substance Use Treatment: No <Valerie Wright - Last Filed: 02/14/18 03:50> - Past Medical History Allergies/Adverse Reactions: Allergies Allergy/AdvReac Type Severity Reaction Status Date / Time No Known Allergies Allergy Verified 02/12/18 21:17 Home Medications: Ambulatory Orders Clopidogrel Bisulfate [Plavix -] 75 mg PO DAILY 09/03/17 Insulin Glargine,Hum.rec.anlog [Lantus Solostar PEN -] 30 units SQ DAILY Rosuvastatin [Crestor -] 10 mg PO DAILY 09/03/17 Tamsulosin HCl [Flomax -] 0.4 mg PO HS 09/03/17 Calcium Acetate [Phoslo -] 667 mg PO TIDCM 30 Days #90 capsule 09/14/17 Carvedilol [Coreg -] 12.5 mg PO BID tablet 09/14/17 hydrALAZINE HCL [Apresoline -] 25 mg PO BID tablet 09/14/17 Allopurinol [Zyloprim -] 300 mg PO DAILY 11/21/17 Aspirin [ASA -] 81 mg PO DAILY 11/21/17 Isosorbide Dinitrate [Isordil -] 20 mg PO BID 11/21/17 Warfarin Sodium [Coumadin] 4 mg PO ASDIR 11/21/17 Warfarin Sodium [Coumadin] 5 mg PO ASDIR 11/21/17 Escitalopram Oxalate [Lexapro -] 5 mg PO HS #30 tablet 12/09/17 Insulin Sliding Scale [Novolog Vial Sliding Scale -] 1 vial SQ HS units Insulin Sliding Scale [Novolog Vial Sliding Scale -] 1 vial SQ TIDCM units 06/16 Torsemide [Demadex -] 100 mg PO DAILY #30 tablet 12/09/17 Enoxaparin Sodium [Lovenox] 150 mg SCJ BID 02/11/18 Review of Systems - Review of Systems Comments:: GENERAL/CONSTITUTIONAL: No fever or chills. +weakness. HEAD, EYES, EARS, NOSE AND THROAT: No change in vision. No ear pain or discharge. No sore throat. CARDIOVASCULAR: No chest pain or shortness of breath. RESPIRATORY: No cough, wheezing, or hemoptysis. GASTROINTESTINAL: +nausea, +vomiting, no diarrhea or constipation. GENITOURINARY: No dysuria, frequency, or change in urination. MUSCULOSKELETAL: No joint or muscle swelling or pain. No neck or back pain. SKIN: No rash NEUROLOGIC: No headache, vertigo, loss of consciousness, or change in strength/ sensation. ENDOCRINE: No increased thirst. No abnormal weight change. HEMATOLOGIC/LYMPHATIC: No anemia, easy bleeding, or history of blood clots. ALLERGIC/IMMUNOLOGIC: No hives or skin allergy. Constitutional: Yes: Symptoms Reported <Suzanna Hayden - Last Filed: 02/12/18 23:33> *Physical Exam - Vital Signs Last Vital Signs Temp Pulse Resp BP Pulse Ox 98.8 F 90 18 121/57 97 02/12/18 21:18 02/12/18 21:18 02/12/18 21:18 02/12/18 21:18 02/12/18 21:18 - Physical Exam Comments: GENERAL: Awake, alert, and fully oriented, in no acute distress. HEAD: No signs of trauma EYES: PERRLA, EOMI, sclera anicteric, conjunctiva clear ENT: Auricles normal inspection, hearing grossly normal, nares patent, oropharynx clear without exudates. Moist mucosa NECK: Normal ROM, supple, no lymphadenopathy, JVD, or masses LUNGS: Coarse breath sounds at bases. No wheezes, and no crackles HEART: Regular rate and rhythm, normal S1 and S2, no murmurs, rubs or gallops CHEST: Shunt in right anterior chest wall. ABDOMEN: Soft, nontender, normoactive bowel sounds. No guarding, no rebound. No masses EXTREMITIES: +hematoma right groin/hip. Normal range of motion, no edema. AV graft - left arm. No clubbing or cyanosis. No cords, erythema, or tenderness NEUROLOGICAL: Cranial nerves II through XII grossly intact. Normal speech, normal gait SKIN: Warm, Dry, normal turgor, no rashes or lesions noted. <Suzanna Hayden - Last Filed: 02/12/18 23:33> Heart Score/ECG Review - ECG Intrepretation Rhythm: Regular Rhythm - [place]: Left [place] Deviation - ST and T Flattened T Waves: No Prolonged Q-T Interval: No - ECG Impressions Normal ECG: Yes Non-specific ST Elevation: No Ischemic Changes: Yes (old changes from 11/21/17) <Valerie Wright - Last Filed: 02/14/18 03:50> ED Treatment Course - LABORATORY CBC & Chemistry Diagram: 02/13/18 15:00 02/13/18 05:30 <Valerie Wright - Last Filed: 02/14/18 03:50> Medical Decision Making - Medical Decision Making 02/14/18 03:49 Pt was about to be discharged home, after he ate some home cooked food in the ER and seemed stable. Upon standing up he had seizure like activity, and vomited up everything he had eaten. Pt appears weak and unwell. Labs ordered and pt will be admitted to his [facility] <Valerie Wright - Last Filed: 02/14/18 03:50> *DC/Admit/Observation/Transfer - Attestations Scribe Attestion: 02/12/18 22:51 Documentation prepared by Suzanna Hayden, acting as medical coding technician for Valerie Wright MD. <Suzanna Hayden - Last Filed: 02/12/18 23:33> - Discharge Dispostion Decision to Admit order: Yes <Valerie Wright - Last Filed: 02/14/18 03:50> Diagnosis at time of Disposition: Weakness generalized, Vomiting, Observed seizure-like activity - Discharge Dispostion Condition at time of disposition: Guarded
[2018-02-13 00:16] LABS: BASO % 0.5 % (0-2.0); EOS % 0.1 % (0-4.5); HEMATOCRIT 32.4 % (35.4-49); HEMOGLOBIN 10.3 GM/dL (11.7-16.9); LYMPH % 10.2 % (8-40); MCH 26.4 pg (25.7-33.7); MCHC 31.7 g/dl (32.0-35.9); MEAN CELL VOLUME 83.3 fl (80-96); MEAN PLT VOLUME 11.2 fl (7.5-11.1); MONO % 4.6 % (3.8-10.2); NEUT % 84.6 % (42.8-82.8); PLATELET COUNT 92 K/MM3 (134-434); RBC 3.89 M/mm3 (4.00-5.60); RDW 20.2 % (11.9-15.9); WHITE BLOOD COUNT 9.1 K/mm3 (4.0-10.0)
[2018-02-13 00:37] LABS: AMYLASE 67 U/L (25-115)
[2018-02-13 00:40] LABS: ALBUMIN 2.9 g/dl (3.4-5.0); ALK PHOS 83 U/L (45-117); ANION GAP 11 (8-16); BILIRUBIN,TOTAL 0.3 mg/dL (0.2-1.0); BLOOD UREA NITROGEN 28 mg/dL (7-18); CALCIUM 8.1 mg/dL (8.5-10.1); CHLORIDE 98 mmol/L (98-107); CO2 24 mmol/L (21-32); POTASSIUM 5.1 mmol/L (3.5-5.1); SGOT/AST 18 U/L (15-37); SGPT/ALT 20 U/L (12-78); SODIUM 133 mmol/L (136-145); TOT PROT 5.8 g/dl (6.4-8.2)
[2018-02-13 00:41] LABS: LIPASE 236 U/L (73-393)
[2018-02-13 00:42] LABS: GLUCOSE,RANDOM 335 mg/dL (74-106)
[2018-02-13 01:09] LABS: PLATELET ESTIMATE DECREASED
[2018-02-13] MEDS: INSULIN SLIDING SCALE (NOVOLOG) 1 VIAL SQ SCH ×5 (04:00→22:00)
[2018-02-13 06:03] LABS: BASO % 0.3 % (0-2.0); EOS % 0.2 % (0-4.5); HEMATOCRIT 28.9 % (35.4-49); HEMOGLOBIN 9.3 GM/dL (11.7-16.9); LYMPH % 10.1 % (8-40); MCH 26.7 pg (25.7-33.7); MCHC 32.2 g/dl (32.0-35.9); MEAN CELL VOLUME 82.8 fl (80-96); MEAN PLT VOLUME 10.9 fl (7.5-11.1); NEUT % 83.4 % (42.8-82.8); PLATELET COUNT 75 K/MM3 (134-434); RBC 3.49 M/mm3 (4.00-5.60); RDW 20.5 % (11.9-15.9); WHITE BLOOD COUNT 9.4 K/mm3 (4.0-10.0)
[2018-02-13 06:26] LABS: ALBUMIN 2.7 g/dl (3.4-5.0); ANION GAP 11 (8-16); BLOOD UREA NITROGEN 35 mg/dL (7-18); CALCIUM 8.1 mg/dL (8.5-10.1); CHLORIDE 97 mmol/L (98-107); CO2 25 mmol/L (21-32); CREATININE 2.3 mg/dL (0.7-1.3); POTASSIUM 5.4 mmol/L (3.5-5.1); SGOT/AST 12 U/L (15-37); SGPT/ALT 17 U/L (12-78); SODIUM 133 mmol/L (136-145)
[2018-02-13 06:28] LABS: ALK PHOS 74 U/L (45-117); BILIRUBIN,TOTAL 0.3 mg/dL (0.2-1.0); TOT PROT 5.4 g/dl (6.4-8.2)
[2018-02-13 06:31] LABS: GLUCOSE,RANDOM 373 mg/dL (74-106)
[2018-02-13] MEDS ORDERED: PANTOPRAZOLE SODIUM 40 MG VIAL IVPUSH ONE (09:00)
--- NOTE | 2018-02-13 11:08 | EKG ---
Test Reason : Blood Pressure : / mmHG Vent. Rate : 088 BPM Atrial Rate : 088 BPM P-R Int : 172 ms QRS Dur : 092 ms QT Int : 392 ms P-R-T Axes : 044 -64 101 degrees QTc Int : 474 ms NORMAL SINUS RHYTHM POSSIBLE LEFT ATRIAL ENLARGEMENT LEFT AXIS DEVIATION LEFT VENTRICULAR HYPERTROPHY WITH REPOLARIZATION ABNORMALITY INFERIOR INFARCT (CITED ON OR BEFORE 09-APR-2016) ANTEROLATERAL INFARCT (CITED ON OR BEFORE 02-JAN-2015) ABNORMAL ECG Confirmed by ALANA GONSALES MD ([id number]) on 02/13/2018 11:08:31 AM Referred By: Confirmed By:ALANA GONSALES MD
--- NOTE | 2018-02-13 12:43 | CONSULT ---
Consult - text type - Consultation Consultation Note: Renal Consult for ESRD on HD This is a 77 year old gentleman with Hx of ESRD on HD (started this year) , CAD s/p PCI, Hypertension, Hyperlipidemia, CHF, Right Ventricular Thrombus on Coumadin who presented from home with weakness and hypotension. Pt also had a mechanical fall 3 days ago but has been ambulatory. Did not have dialysis yesterday because of low BP. No fevers, chills, SOB, abd pain, N/V/D. Large bruse on left hip with pain. Was on Lovenox as Coumadin was held for 1 week prior to fistuloplasty done yesterday. Did not take Lovenox yesterday. PMhx: as above Allergies: NKDA Family Hx: NC Social Hx: No T/A/D ROS: as per HPI Home Medications Medication Instructions Recorded Clopidogrel Bisulfate [Plavix -] 75 mg PO DAILY 09/03/17 Insulin Glargine,Hum.rec.anlog 30 units SQ DAILY 09/03/17 [Lantus Solostar PEN -] Rosuvastatin [Crestor -] 10 mg PO DAILY 09/03/17 Tamsulosin HCl [Flomax -] 0.4 mg PO HS 09/03/17 Calcium Acetate [Phoslo -] 667 mg PO TIDCM 30 Days #90 capsule 09/14/17 Carvedilol [Coreg -] 12.5 mg PO BID tablet 09/14/17 hydrALAZINE HCL [Apresoline -] 25 mg PO BID tablet 09/14/17 Allopurinol [Zyloprim -] 300 mg PO DAILY 11/21/17 Aspirin [ASA -] 81 mg PO DAILY 11/21/17 Isosorbide Dinitrate [Isordil -] 20 mg PO BID 11/21/17 Warfarin Sodium [Coumadin] 4 mg PO ASDIR 11/21/17 Warfarin Sodium [Coumadin] 5 mg PO ASDIR 11/21/17 Escitalopram Oxalate [Lexapro -] 5 mg PO HS #30 tablet 12/09/17 Insulin Sliding Scale [Novolog 1 vial SQ HS units 12/09/17 Vial Sliding Scale -] Insulin Sliding Scale [Novolog 1 vial SQ TIDCM units 12/09/17 Vial Sliding Scale -] Torsemide [Demadex -] 100 mg PO DAILY #30 tablet 12/09/17 Enoxaparin Sodium [Lovenox] 150 mg SCJ BID 02/11/18 Vital Signs Temperature 98.5 F 02/13/18 02:33 Pulse Rate 95 H 02/13/18 02:33 Respiratory Rate 11 L 02/13/18 02:33 Blood Pressure 101/76 02/13/18 02:33 O2 Sat by Pulse Oximetry (%) 93 L 02/13/18 02:33 Intake & Output 02/10/18 02/11/18 02/12/18 02/13/18 23:59 23:59 23:59 23:59 Output Total 0 Balance 0 Weight 63.049 kg 65.9 kg NAD awake and alert neck supple, No JVD MMM RRR, No M/R CTA, no rales or wheeze soft NT/ND No LE edema + hematoma on left hip left arm AVF + thrill Right IJ permacath in place CBC, BMP 02/13/18 05:30 02/13/18 05:30 Current Medications Epoetin Fahad (Epogen -) 20,000 unit IVPUSH ONCE ONE Stop: 02/13/18 12:11 Heparin Sodium (Porcine) (Heparin -) 1,000 unit IVPUSH PRN PRN PRN Reason: Heparin Heparin Sodium (Porcine) (Heparin -) 5,000 unit IVPUSH PRN PRN PRN Reason: Heparin Sodium Chloride (Normal Saline -) 250 mls @ 3,000 mls/hr IV PRN PRN PRN Reason: Hypotension during Dialysis Stop: 02/14/18 12:10 Heparin Sodium/Dextrose (Heparin Infusion -) 25,000 units in 500 mls @ 16 mls/ hr IVPB TITR [facility]; Protocol Insulin Aspart (Novolog Vial Sliding Scale -) 1 vial SQ ACHS [facility]; Protocol Last Admin: 02/13/18 06:48 Dose: 10 units 77 year old gentleman with Hx of ESRD on HD (started this year), CAD s/p PCI, Hypertension, Hyperlipidemia, CHF, Right Ventricular Thrombus on Coumadin who presented from home with weakness and hypotension. #Weakness/Hypotension r/o worsening anemia vs. CHF vs. infection #ESRD on HD with Hyperkalemia #Ventricular Thrombus #Anemia #Hip Hematoma w/o fracture Blood culture collected, no fever or leukocytosis at this time holding Abx To get ECHO today to checke LV Function Trend CBC, no acute indication for transfusion for dialysis today with minimal UF Renal Diet, 1.2L fluid restriction Will start heparin gtt (discussed with MrMeredith Marin) for RV thrombus Trend PTT/PT levels, drip to be tritarted based on levels Trend CBC and monitor hematoma ASA and plavix to be restarted as per cardiology will give AMY with HD for anemia. Florencio Del Cid DO
[2018-02-13] MEDS ORDERED: HEPARIN INFUSION - 25,000 UNITS/500 ML INFUS.BAG IVPB SCH (12:45)
[2018-02-13] MEDS ORDERED: HEPARIN NA (PORCINE) 5,000 UNITS/ML 1ML VIAL IVPUSH PRN ×2 (12:45)
[2018-02-13] MEDS ORDERED: SODIUM CHLORIDE 250 ML IV PRN (14:26)
[2018-02-13] MEDS ORDERED: EPOETIN ALFA 20,000 UNIT/1 ML VIAL IVPUSH ONE (14:30)
--- NOTE | 2018-02-13 15:12 | ECHO ---
Name: ONIEL DAVIS Exam:Adult Echocardiogram Study Date: 02/13/2018 02:08 PM Age: 77 yrs Height: 66 in Weight: 145 lb BSA: 1.7 m2 BP: 141/65 mmHg MMode/2D Measurements & Calculations IVSd: 1.1 cm Ao root diam: 3.3 cm LVIDd: 5.4 cm LA dimension: 3.5 cm LVIDs: 3.6 cm LVPWd: 0.70 cm EDV(Teich): 141.7 ml LVOT diam: 2.0 cm ESV(Teich): 54.3 ml RV S Mohit: 12.9 cm/sec Doppler Measurements & Calculations MV E max mohit: 82.9 cm/sec Med Peak E' Mohit: 4.1 cm/sec MV A max mohit: 109.6 cm/sec Med E/e': 20.4 MV E/A: 0.76 Lat Peak E' Mohit: 8.9 cm/sec Lat E/e': 9.3 Left Ventricle Ejection Fraction = 50-55%. The transmitral spectral Doppler flow pattern is suggestive of impaired L V relaxation. There is apical akinesis. Mild inferolateral hypokinesis. Mild to moderate inferior hypok inesis. Cannot exlcude LV apical thrombus. Right Ventricle The right ventricle is normal in size and function. Atria Normal left and right atrial size and function. Mitral Valve The mitral valve is normal in structure and function. There is no mitral valve stenosis. There is tra ce to mild mitral regurgitation. Tricuspid Valve The tricuspid valve is not well visualized, but is grossly normal. There is mild tricuspid regurgitat ion. Aortic Valve The aortic valve opens well. No hemodynamically significant valvular aortic stenosis. No aortic regur gitation is present. Pulmonic Valve The pulmonic valve is not well seen, but is grossly normal. There is no pulmonic valvular stenosis. T here is no pulmonic valvular regurgitation. Great Vessels The aortic root is normal size. Pericardium/Pleura There is no pericardial effusion. Interpretation Summary Ejection Fraction = 50-55%. There is apical akinesis. Mild inferolateral hypokinesis. Mild to moderate inferior hypokinesis. The right ventricle is normal in size and function. There is trace to mild mitral regurgitation. There is no pericardial effusion. Cannot exlcude LV apical thrombus. MD Jerrell Quintanilla 02/13/2018 03:12 PM
[2018-02-13 16:00] LABS: HEMATOCRIT 26.1 % (35.4-49); HEMOGLOBIN 8.4 GM/dL (11.7-16.9); MCH 26.3 pg (25.7-33.7); MCHC 32.1 g/dl (32.0-35.9); MEAN CELL VOLUME 81.8 fl (80-96); MEAN PLT VOLUME 11.4 fl (7.5-11.1); PLATELET COUNT 86 K/MM3 (134-434); RBC 3.19 M/mm3 (4.00-5.60); WHITE BLOOD COUNT 7.2 K/mm3 (4.0-10.0)
--- NOTE | 2018-02-13 16:07 | CON.CARD ---
Consult Consult Specialty:: cardiology Reason for Consultation:: hx ME; now weak, relative hypotension - History of Present Illness Chief Complaint: Pt alert; c/o pain in left hip History of Present Illness: Patient is a 77 year old male (bMeredith Kingsley), with PMHx of CVA, CAD (ME--> 5 coronary stents at [facility] 08/17, with subsequent renal failure and ventricular thrombus; currently on ASA, clopidogrel, and warfarin), ESRD ( hemodialysis since 11/2017), diastolic CHF, HTN, HLD, s/p GI Bleed, Anxiety, Diabetes Mellitus, who presents with generalized weakness and low blood pressure. The patients (Dr. Davila) states that this afternoon he vomited and noted that his blood pressure was relatively low and he was feeling weak. She brought him to [facility] ER where he has history. He receives dialysis every Friday, , and Friday, but did not go today. Earlier in the day, prior to planned hemodialysis, he underwent renal angioplasty by the vascular surgeon (Dr. Huff) and was NPO. Surgical Hx: December 05 2017 - Renal angioplasty. 02/12/18 - Left AVF with stenosis. ME (Jul, 2017) with multiple stent placements simultaenously. 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 No: Addictions, Bipolar, Depression, Panic, Psychosis, Schizophrenia, Other Endocrine: Yes: Diabetes Mellitus. No: Angelo's Disease, Goodrich's Disease, Diabetes Insipidus, Hyperparathyroidism, Hyperthyroidism, Hypothyroidism, Osteopenia, SIADH, Other - Past Surgical History Past Surgical History: Yes: Stent - Alcohol/Substance Use Hx Alcohol Use: No History of Substance Use: reports: None - Smoking History Smoking history: Never smoked Have you smoked in the past 12 months: No - Social History Usual Living Arrangement: With Spouse ADL: Independent History of Recent Travel: No Home Medications - Allergies Allergies/Adverse Reactions: Allergies Allergy/AdvReac Type Severity Reaction Status Date / Time No Known Allergies Allergy Verified 02/12/18 21:17 - Home Medications Home Medications: Ambulatory Orders Clopidogrel Bisulfate [Plavix -] 75 mg PO DAILY 09/03/17 Insulin Glargine,Hum.rec.anlog [Lantus Solostar PEN -] 30 units SQ DAILY Rosuvastatin [Crestor -] 10 mg PO DAILY 09/03/17 Tamsulosin HCl [Flomax -] 0.4 mg PO HS 09/03/17 Calcium Acetate [Phoslo -] 667 mg PO TIDCM 30 Days #90 capsule 09/14/17 Carvedilol [Coreg -] 12.5 mg PO BID tablet 09/14/17 hydrALAZINE HCL [Apresoline -] 25 mg PO BID tablet 09/14/17 Allopurinol [Zyloprim -] 300 mg PO DAILY 11/21/17 Aspirin [ASA -] 81 mg PO DAILY 11/21/17 Isosorbide Dinitrate [Isordil -] 20 mg PO BID 11/21/17 Warfarin Sodium [Coumadin] 4 mg PO ASDIR 11/21/17 Warfarin Sodium [Coumadin] 5 mg PO ASDIR 11/21/17 Escitalopram Oxalate [Lexapro -] 5 mg PO HS #30 tablet 12/09/17 Insulin Sliding Scale [Novolog Vial Sliding Scale -] 1 vial SQ HS units Insulin Sliding Scale [Novolog Vial Sliding Scale -] 1 vial SQ TIDCM units 06/16 Torsemide [Demadex -] 100 mg PO DAILY #30 tablet 12/09/17 Enoxaparin Sodium [Lovenox] 150 mg SCJ BID 02/11/18 Family Disease History - Family Disease History Family History: Denies Review of Systems - Review of Systems Constitutional: reports: Weakness Eyes: reports: No Symptoms HENT: reports: No Symptoms Vital Signs: Vital Signs Temperature 98.5 F 02/13/18 02:33 Pulse Rate 91 H 02/13/18 15:00 Respiratory Rate 18 02/13/18 15:00 Blood Pressure 131/72 02/13/18 15:00 O2 Sat by Pulse Oximetry (%) 93 L 02/13/18 10:00 - Other Data Labs, Other Data: CBC, BMP 02/13/18 05:30 Troponin, BNP 02/12/18 23:40 Troponin I < 0.02 Troponin, BNP 02/12/18 23:40 Troponin I < 0.02 Problem List - Problems (1) Vomiting Code(s): R11.10 - VOMITING, UNSPECIFIED (2) Weakness generalized Code(s): R53.1 - WEAKNESS (3) AV fistula Code(s): I77.0 - ARTERIOVENOUS FISTULA, ACQUIRED (4) Anemia in CKD (chronic kidney disease) Code(s): N18.9 - CHRONIC KIDNEY DISEASE, UNSPECIFIED; D63.1 - ANEMIA IN CHRONIC KIDNEY DISEASE (5) Anxiety and depression Code(s): F41.8 - OTHER SPECIFIED ANXIETY DISORDERS (6) BPH (benign prostatic hypertrophy) Code(s): N40.0 - BENIGN PROSTATIC HYPERPLASIA WITHOUT LOWER URINRY TRACT SYMP (7) CVA (cerebral infarction) Assessment/Plan: On ASA, clopidogrel, and wafrarin. High-dose statin to keep LDL as low as possible. Physical rehabilitation. Code(s): I63.9 - CEREBRAL INFARCTION, UNSPECIFIED Qualifiers: Cerebral infarction mechanism: unspecified mechanism Qualified Code(s): I63.9 - Cerebral infarction, unspecified (8) Diabetes mellitus Code(s): E11.9 - TYPE 2 DIABETES MELLITUS WITHOUT COMPLICATIONS Qualifiers: Diabetes mellitus type: type 2 Diabetes mellitus complication status: with ophthalmic complications Diabetes mellitus complication detail: with diabetic retinopathy (9) Fall Code(s): W19.XXXA - UNSPECIFIED FALL, INITIAL ENCOUNTER Qualifiers: Encounter type: initial encounter Qualified Code(s): W19.XXXA - Unspecified fall, initial encounter (10) Hx of heart artery stent Assessment/Plan: Hx ME-->multiple stents. On ASA and clopidogrel (as well as warfarin for ventricular thrombus). On carvedilol. Code(s): Z95.5 - PRESENCE OF CORONARY ANGIOPLASTY IMPLANT AND GRAFT (11) Hyperlipidemia Assessment/Plan: statin; keep LDL well below 70 mg/dL. Code(s): E78.5 - HYPERLIPIDEMIA, UNSPECIFIED Qualifiers: Hyperlipidemia type: pure hypercholesterolemia Qualified Code(s): E78.00 - Pure hypercholesterolemia, unspecified; E78.0 - Pure hypercholesterolemia (12) LV (left ventricular) mural thrombus Assessment/Plan: restart warfarin; IV heparin until INR 2-3. Code(s): [id number] - (13) Hypotension Assessment/Plan: Hold hydralazine. On carvedilol; may decrease dose if necessary. Undergoing hemodialysis today; f/u electrolytes, vitals. Code(s): I95.9 - HYPOTENSION, UNSPECIFIED (14) Chronic diastolic (congestive) heart failure Assessment/Plan: ECHO this admission: preserved LVEF, with regional wall abnormalities (apical, inferior); borderline dilated LV; cannot exclude LV apical thrombus. On carvedilol; hydralazine held until low BP has improved. Consider retrail of ACEI or ARB, given CAD, enlarged LV, and that pt is now on hemodialysis. Pt was initially hyperkalemic, however. Code(s): I50.32 - CHRONIC DIASTOLIC (CONGESTIVE) HEART FAILURE
[2018-02-13] MEDS ORDERED: HEMOQUE TEST 1 EACH EACH ONE (17:22)
[2018-02-13] MEDS: ROSUVASTATIN CA 10 MG TABLET (FP) PO SCH (21:57)
[2018-02-13] MEDS: ESCITALOPRAM OXALATE 10 MG TABLET (FP) PO SCH (21:58)
[2018-02-13] MEDS: CARVEDILOL 12.5 MG TABLET (FP) PO SCH (22:00)
[2018-02-13] MEDS ORDERED: CARVEDILOL 6.25 MG TABLET (FP) PO SCH (22:00)
[2018-02-13] MEDS: TAMSULOSIN HCL 0.4 MG CAP.ER.24H (FP) PO SCH (22:00)
[2018-02-14] MEDS ORDERED: SODIUM CHLORIDE 250 ML IV STA (04:50)
[2018-02-14 06:16] LABS: BASO % 0.5 % (0-2.0); EOS % 2.1 % (0-4.5); HEMATOCRIT 24.2 % (35.4-49); HEMOGLOBIN 7.9 GM/dL (11.7-16.9); LYMPH % 16.6 % (8-40); MCH 26.8 pg (25.7-33.7); MCHC 32.5 g/dl (32.0-35.9); MEAN CELL VOLUME 82.5 fl (80-96); MEAN PLT VOLUME 10.6 fl (7.5-11.1); MONO % 10.6 % (3.8-10.2); NEUT % 70.2 % (42.8-82.8); PLATELET COUNT 77 K/MM3 (134-434); RBC 2.93 M/mm3 (4.00-5.60); RDW 20.4 % (11.9-15.9); WHITE BLOOD COUNT 7.2 K/mm3 (4.0-10.0)
[2018-02-14] MEDS: INSULIN SLIDING SCALE (NOVOLOG) 1 VIAL SQ SCH ×3 (06:27→16:51)
[2018-02-14 06:40] LABS: CHLORIDE 101 mmol/L (98-107); POTASSIUM 3.9 mmol/L (3.5-5.1); SODIUM 139 mmol/L (136-145)
[2018-02-14 06:46] LABS: ALBUMIN 2.5 g/dl (3.4-5.0); ALK PHOS 65 U/L (45-117); ANION GAP 9 (8-16); BILIRUBIN,TOTAL 0.3 mg/dL (0.2-1.0); BLOOD UREA NITROGEN 18 mg/dL (7-18); CALCIUM 7.8 mg/dL (8.5-10.1); CO2 29 mmol/L (21-32); CREATININE 1.7 mg/dL (0.7-1.3); GLUCOSE,RANDOM 216 mg/dL (74-106); PHOSPHOROUS 3.2 mg/dL (2.5-4.9); SGOT/AST 14 U/L (15-37); SGPT/ALT 14 U/L (12-78); TOT PROT 4.9 g/dl (6.4-8.2)
[2018-02-14] MEDS ORDERED: ISOSORBIDE MONONITRATE 30 MG TAB.SR.24H (FP) PO SCH (10:00)
[2018-02-14] MEDS: CARVEDILOL 12.5 MG TABLET (FP) PO SCH ×2 (10:16→22:26)
[2018-02-14] MEDS: PANTOPRAZOLE 40 MG TABLET (FP) PO SCH (10:16)
--- NOTE | 2018-02-14 11:56 | HP ---
Admitting History and Physical - Primary Care Physician PCP: Coleman Hess - Admission Chief Complaint: Syncope. CHF History of Present Illness: Note for 02/13/18 77 y/o with severe CAD, DM, HTN, CHF, ventricular thrombus, and CKD on HD underwent revision of his AV shunt by Dr. Huff this AM under [place] and on his way to HD became unresponsive , EMS was called and VS were stable and he was brought to the ED by his . In the ER he was oriented , VS stable and he was admitted for further management.He also vomited several times even after some food was given in the ED. Denies any abdominal pain.Few days ago fell at home and developed a big hematoma in the groin as he was on Coumadin Plavix and Aspirin. 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 No: Addictions, Bipolar, Depression, Panic, Psychosis, Schizophrenia, Other Endocrine: Yes: Diabetes Mellitus. No: Brookline's Disease, Laquita's Disease, Diabetes Insipidus, Hyperparathyroidism, Hyperthyroidism, Hypothyroidism, Osteopenia, SIADH, Other - Past Surgical History Past Surgical History: Yes: Stent Additional Past Surgical History: AV fistula in the left arm - Smoking History Smoking history: Never smoked Have you smoked in the past 12 months: No - Alcohol/Substance Use Hx Alcohol Use: No History of Substance Use: reports: None - Social History Usual Living Arrangement: Yes: With Spouse ADL: Family Assistance History of Recent Travel: No Home Medications - Allergies Allergies/Adverse Reactions: Allergies Allergy/AdvReac Type Severity Reaction Status Date / Time No Known Allergies Allergy Verified 02/12/18 21:17 - Home Medications Home Medications: Ambulatory Orders Clopidogrel Bisulfate [Plavix -] 75 mg PO DAILY 09/03/17 Insulin Glargine,Hum.rec.anlog [Lantus Solostar PEN -] 30 units SQ DAILY Rosuvastatin [Crestor -] 10 mg PO DAILY 09/03/17 Tamsulosin HCl [Flomax -] 0.4 mg PO HS 09/03/17 Calcium Acetate [Phoslo -] 667 mg PO TIDCM 30 Days #90 capsule 09/14/17 Carvedilol [Coreg -] 12.5 mg PO BID tablet 09/14/17 hydrALAZINE HCL [Apresoline -] 25 mg PO BID tablet 09/14/17 Allopurinol [Zyloprim -] 300 mg PO DAILY 11/21/17 Aspirin [ASA -] 81 mg PO DAILY 11/21/17 Isosorbide Dinitrate [Isordil -] 20 mg PO BID 11/21/17 Warfarin Sodium [Coumadin] 4 mg PO ASDIR 11/21/17 Warfarin Sodium [Coumadin] 5 mg PO ASDIR 11/21/17 Escitalopram Oxalate [Lexapro -] 5 mg PO HS #30 tablet 12/09/17 Insulin Sliding Scale [Novolog Vial Sliding Scale -] 1 vial SQ HS units Insulin Sliding Scale [Novolog Vial Sliding Scale -] 1 vial SQ TIDCM units 06/16 Torsemide [Demadex -] 100 mg PO DAILY #30 tablet 12/09/17 Enoxaparin Sodium [Lovenox] 150 mg SCJ BID 02/11/18 Review of Systems - Review of Systems Constitutional: reports: Weakness Eyes: reports: No Symptoms HENT: reports: No Symptoms Neck: reports: No Symptoms Respiratory: reports: No Symptoms Gastrointestinal: reports: No Symptoms Genitourinary: reports: No Symptoms Breasts: reports: No Symptoms Reported Musculoskeletal: reports: No Symptoms Integumentary: reports: Bruising Neurological: reports: Parasthesia, Weakness Endocrine: reports: No Symptoms Physical Examination Vital Signs: Vital Signs Temperature 98.5 F 02/14/18 10:00 Pulse Rate 97 H 02/14/18 10:00 Respiratory Rate 13 02/14/18 10:00 Blood Pressure 97/54 02/14/18 10:00 O2 Sat by Pulse Oximetry (%) 99 02/14/18 10:00 Constitutional: Yes: Well Nourished, Calm, Pallor Eyes: Yes: Conjunctiva Clear, EOM Intact HENT: Yes: WNL Neck: Yes: Supple Cardiovascular: Yes: Regular Rate and Rhythm, S1, S2 Respiratory: Yes: Regular, CTA Bilaterally Gastrointestinal: Yes: Normal Bowel Sounds, Soft Renal/: Yes: WNL Breast(s): Yes: WNL Musculoskeletal: Yes: WNL Extremities: Yes: WNL Edema: No Peripheral Pulses WNL: Yes Integumentary: Yes: Other (There is a huge hematoma in the left groin extending to the upper thigh) Neurological: Yes: Alert, Oriented, Cran Nerves II-XII Intact Labs: CBC, BMP 02/14/18 05:30 02/14/18 05:30 Imaging - Results X-ray: Report Reviewed, Image Reviewed Problem List - Problems (1) Chronic diastolic (congestive) heart failure Assessment/Plan: His chest Xray shows marked improvement since starting HD and also peripheral edema has subsided Code(s): I50.32 - CHRONIC DIASTOLIC (CONGESTIVE) HEART FAILURE (2) Hypotension Assessment/Plan: His BP has been in the 100 to 120 range at home and possibility that he may need much less meds which will be regulated during this admission Code(s): I95.9 - HYPOTENSION, UNSPECIFIED (3) Anemia Assessment/Plan: On admission his Hb was 10.3 and had dropped to 8.4 by this afternoon .Possibility that this could be due further blood loss due to Lovenox. Code(s): D64.9 - ANEMIA, UNSPECIFIED Qualifiers: Chronic kidney disease stage: on chronic dialysis Qualified Code(s): N18.6 - End stage renal disease; D63.1 - Anemia in chronic kidney disease; Z99.2 - Dependence on renal dialysis (4) Diabetes 1.5, managed as type 1 Assessment/Plan: IMP:Syncope Ch. diastolic heart failure Ventricular thrombus Code(s): E13.9 - OTHER SPECIFIED DIABETES MELLITUS WITHOUT COMPLICATIONS (5) Syncope Assessment/Plan: He became unresponsive after couple of hours after general anesthesia but recovered and was oriented without any focal signs Code(s): R55 - SYNCOPE AND COLLAPSE
--- NOTE | 2018-02-14 12:24 | PN ---
Progress Note (short form) - Note Progress Note: Renal follow up for ESRD on HD Pt seen and examined at the bedside awake and alert complains of pain on left hip has cough no sob, cp, abd pain, N/V/D s/p dialysis yesterday Vital Signs Temperature 98.3 F 02/14/18 12:00 Pulse Rate 95 H 02/14/18 12:00 Respiratory Rate 17 02/14/18 12:00 Blood Pressure 103/53 02/14/18 12:00 O2 Sat by Pulse Oximetry (%) 99 02/14/18 10:00 Intake & Output 02/11/18 02/12/18 02/13/18 02/14/18 23:59 23:59 23:59 23:59 Intake Total 250 Output Total 0 0 Balance 0 250 Weight 63.049 kg 65.9 kg 67.132 kg NAD awake and alert RRR, No M/R CTA no rales or wheeze soft NT/ND Left hip hematoma no clubbing or cyanosis CBC, BMP 02/14/18 05:30 02/14/18 05:30 Current Medications Albuterol/Ipratropium (Duoneb -) 1 amp NEB Q6H PRN PRN Reason: SHORTNESS OF BREATH Carvedilol (Coreg -) 12.5 mg PO BID [facility] Last Admin: 02/14/18 10:16 Dose: 12.5 mg Escitalopram Oxalate (Lexapro -) 5 mg PO HS [facility] Last Admin: 02/13/18 21:58 Dose: 5 mg Heparin Sodium (Porcine) (Heparin -) 1,000 unit IVPUSH PRN PRN PRN Reason: Heparin Heparin Sodium (Porcine) (Heparin -) 5,000 unit IVPUSH PRN PRN PRN Reason: Heparin Last Admin: 02/13/18 13:20 Dose: 5,000 unit Sodium Chloride (Normal Saline -) 250 mls @ 3,000 mls/hr IV PRN PRN PRN Reason: Hypotension during Dialysis Stop: 02/14/18 14:25 Insulin Aspart (Novolog Vial Sliding Scale -) 1 vial SQ ACHS [facility]; Protocol Last Admin: 02/14/18 11:31 Dose: 12 units Isosorbide Mononitrate (Imdur -) 30 mg PO DAILY [facility] Last Admin: 02/14/18 10:16 Dose: Not Given Pantoprazole Sodium (Protonix -) 40 mg PO DAILY [facility] Last Admin: 02/14/18 10:16 Dose: 40 mg Rosuvastatin Calcium (Crestor -) 10 mg PO HS [facility] Last Admin: 02/13/18 21:57 Dose: 10 mg Tamsulosin HCl (Flomax -) 0.4 mg PO HS [facility] Last Admin: 02/13/18 22:00 Dose: 0.4 mg 77 year old [place] gentleman with Hx of ESRD on HD (started this year), CAD s/p PCI, Hypertension, Hyperlipidemia, CHF, Left Ventricular Thrombus on Coumadin who presented from home with weakness and hypotension. #Weakness/Hypotension r/o worsening anemia vs. CHF vs. infection #ESRD on HD with Hyperkalemia #Ventricular Thrombus #Anemia #Hip Hematoma w/o fracture s/p dialysis yesterday, tolerated it well. 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 Moreno, will most likely need to be restarted on A/C Pt with worsening anemia, elda due to hematoma formation trend CBC Q12h transfuse as needed Florencio Del Cid DO
[2018-02-14] MEDS ORDERED: HEPARIN NA (PORCINE) 5,000 UNITS/ML 1ML VIAL IVPUSH PRN ×2 (12:29)
[2018-02-14] MEDS ORDERED: HEPARIN SOD,PORK IN 0.45% NACL 25,000 UNITS/500 ML INFUS.BAG IVPB SCH (12:30)
--- NOTE | 2018-02-14 13:35 | PN ---
Progress Note, Physician History of Present Illness: No further near or true syncope, hemodynamics stabilizing. Received 1 U pRBC. - Current Medication List Current Medications: Active Medications Albuterol/Ipratropium (Duoneb -) 1 amp NEB Q6H PRN PRN Reason: SHORTNESS OF BREATH Allopurinol (Zyloprim -) 300 mg PO DAILY [facility] Calcium Acetate (Phoslo -) 667 mg PO TIDCM [facility] Carvedilol (Coreg -) 12.5 mg PO BID [facility] Last Admin: 02/14/18 10:16 Dose: 12.5 mg Escitalopram Oxalate (Lexapro -) 5 mg PO HS [facility] Last Admin: 02/13/18 21:58 Dose: 5 mg Heparin Sodium (Porcine) (Heparin -) 1,000 unit IVPUSH PRN PRN PRN Reason: Heparin Heparin Sodium (Porcine) (Heparin -) 5,000 unit IVPUSH PRN PRN PRN Reason: Heparin Sodium Chloride (Normal Saline -) 250 mls @ 3,000 mls/hr IV PRN PRN PRN Reason: Hypotension during Dialysis Stop: 02/14/18 14:25 HEPARIN SOD,PORK IN 0.45% NACL (Heparin-1/2ns 25,000 Units/500) 25,000 units in 500 mls @ 20 mls/hr IVPB TITR [facility]; Protocol Last Admin: 02/14/18 12:59 Dose: 1,000 units/hr, 20 mls/hr Insulin Aspart (Novolog Vial Sliding Scale -) 1 vial SQ ACHS [facility]; Protocol Last Admin: 02/14/18 11:31 Dose: 12 units Isosorbide Mononitrate (Imdur -) 30 mg PO DAILY [facility] Last Admin: 02/14/18 10:16 Dose: Not Given Pantoprazole Sodium (Protonix -) 40 mg PO DAILY [facility] Last Admin: 02/14/18 10:16 Dose: 40 mg Rosuvastatin Calcium (Crestor -) 10 mg PO HS [facility] Last Admin: 02/13/18 21:57 Dose: 10 mg Tamsulosin HCl (Flomax -) 0.4 mg PO HS [facility] Last Admin: 02/13/18 22:00 Dose: 0.4 mg - Objective Vital Signs: Vital Signs Temperature 98.3 F 02/14/18 12:00 Pulse Rate 95 H 02/14/18 12:00 Respiratory Rate 17 02/14/18 12:00 Blood Pressure 103/53 02/14/18 12:00 O2 Sat by Pulse Oximetry (%) 99 02/14/18 10:00 Constitutional: Yes: No Distress, Calm, Thin Neck: Yes: Supple Cardiovascular: Yes: Pulse Irregular Respiratory: Yes: Regular, CTA Bilaterally Gastrointestinal: Yes: Normal Bowel Sounds, Soft Edema: No Labs: CBC, BMP 02/14/18 05:30 02/14/18 05:30 - ....Imaging EKG: Report Reviewed (Tele: NSR) Assessment/Plan 02/13/2018 Echo: LVEF 50-55%, apical AK, mild inferolateral HK, mild-mod inf HK , normal RV size and fxn, tr-mild MR - Problems (1) Vomiting Code(s): R11.10 - VOMITING, UNSPECIFIED (2) Weakness generalized Code(s): R53.1 - WEAKNESS (3) AV fistula Code(s): I77.0 - ARTERIOVENOUS FISTULA, ACQUIRED (4) Anemia in CKD (chronic kidney disease) Code(s): N18.9 - CHRONIC KIDNEY DISEASE, UNSPECIFIED; D63.1 - ANEMIA IN CHRONIC KIDNEY DISEASE HD per renal (5) Anxiety and depression Code(s): F41.8 - OTHER SPECIFIED ANXIETY DISORDERS (6) BPH (benign prostatic hypertrophy) Code(s): N40.0 - BENIGN PROSTATIC HYPERPLASIA WITHOUT LOWER URINRY TRACT SYMP (7) CVA (cerebral infarction) Assessment/Plan: On ASA, clopidogrel, and heparin->wafrarin. High-dose statin to keep LDL as low as possible. Physical rehabilitation. Code(s): I63.9 - CEREBRAL INFARCTION, UNSPECIFIED Qualifiers: Cerebral infarction mechanism: unspecified mechanism Qualified Code(s): I63.9 - Cerebral infarction, unspecified (8) Diabetes mellitus Code(s): E11.9 - TYPE 2 DIABETES MELLITUS WITHOUT COMPLICATIONS Qualifiers: Diabetes mellitus type: type 2 Diabetes mellitus complication status: with ophthalmic complications Diabetes mellitus complication detail: with diabetic retinopathy (9) Fall Code(s): W19.XXXA - UNSPECIFIED FALL, INITIAL ENCOUNTER Qualifiers: Encounter type: initial encounter Qualified Code(s): W19.XXXA - Unspecified fall, initial encounter (10) Hx of heart artery stent Assessment/Plan: Hx MS-->multiple stents. On clopidogrel (as well as heparin->warfarin for ventricular thrombus), consider d/c ASA On carvedilol, Imdur 30 qd Code(s): Z95.5 - PRESENCE OF CORONARY ANGIOPLASTY IMPLANT AND GRAFT (11) Hyperlipidemia Assessment/Plan: Crestor 10 qd; keep LDL well below 70 mg/dL. Code(s): E78.5 - HYPERLIPIDEMIA, UNSPECIFIED Qualifiers: Hyperlipidemia type: pure hypercholesterolemia Qualified Code(s): E78.00 - Pure hypercholesterolemia, unspecified; E78.0 - Pure hypercholesterolemia (12) LV (left ventricular) mural thrombus Assessment/Plan: restart warfarin today; IV heparin until INR 2-3. Code(s): [id number] - (13) Hypotension Assessment/Plan: Hold hydralazine pending hemodynamic stability On carvedilol 12.5 bid; may decrease dose if necessary. Undergoing hemodialysis today; f/u electrolytes, vitals. Code(s): I95.9 - HYPOTENSION, UNSPECIFIED (14) Chronic diastolic (congestive) heart failure Assessment/Plan: ECHO this admission: preserved LVEF, with regional wall abnormalities (apical, inferior); borderline dilated LV; cannot exclude LV apical thrombus. On carvedilol; hydralazine held until low BP has improved. Consider retrial of ACEI or ARB, given CAD, enlarged LV, and that pt is now on hemodialysis. Pt was initially hyperkalemic, however. Code(s): I50.32 - CHRONIC DIASTOLIC (CONGESTIVE) HEART FAILURE
[2018-02-14] MEDS: ALBUTEROL SO4 2.5/IPRATROPIUM 0.5 INH SOL 3 ML VIAL.NEB. NEB PRN ×2 (14:11→21:42)
[2018-02-14] MEDS: ALLOPURINOL 300 MG TABLET (FP) PO SCH (14:55)
[2018-02-14 15:36] LABS: HEMATOCRIT 27.8 % (35.4-49); MCH 27.1 pg (25.7-33.7); MCHC 32.4 g/dl (32.0-35.9); MEAN CELL VOLUME 83.7 fl (80-96); MEAN PLT VOLUME 10.5 fl (7.5-11.1); PLATELET COUNT 78 K/MM3 (134-434); RBC 3.31 M/mm3 (4.00-5.60); RDW 19.3 % (11.9-15.9); WHITE BLOOD COUNT 8.4 K/mm3 (4.0-10.0)
[2018-02-14 15:59] LABS: PROTHROMBIN TIME (PATIENT) 11.3 SEC (9.7-13.0)
[2018-02-14] MEDS: WARFARIN NA 5 MG TABLET (UD) PO SCH (17:10)
[2018-02-14] MEDS: CALCIUM ACETATE 667 MG CAPSULE (FP) PO SCH (17:10)
[2018-02-14] MEDS: TAMSULOSIN HCL 0.4 MG CAP.ER.24H (FP) PO SCH (22:26)
[2018-02-14] MEDS: ESCITALOPRAM OXALATE 10 MG TABLET (FP) PO SCH (22:26)
[2018-02-14] MEDS ORDERED: WARFARIN NA 2.5 MG TABLET (FP) PO ONE (22:31)
--- NOTE | 2018-02-14 22:43 | PN ---
Progress Note, Physician History of Present Illness: 77 y/o with severe anemia most likely due to a huge hematoma in the left thigh after a fall. There is no melena or overt bleeding except for the hematoma. Denies any chest pain, SOB, palpitations. - Current Medication List Current Medications: Active Medications Albuterol/Ipratropium (Duoneb -) 1 amp NEB Q6H PRN PRN Reason: SHORTNESS OF BREATH Last Admin: 02/14/18 21:42 Dose: 1 amp Allopurinol (Zyloprim -) 300 mg PO DAILY [facility] Last Admin: 02/14/18 14:55 Dose: 300 mg Aspirin (Ecotrin -) 81 mg PO DAILY [facility] Calcium Acetate (Phoslo -) 667 mg PO TIDCM [facility] Last Admin: 02/14/18 17:10 Dose: 667 mg Carvedilol (Coreg -) 12.5 mg PO BID [facility] Last Admin: 02/14/18 22:26 Dose: 12.5 mg Clopidogrel Bisulfate (Plavix -) 75 mg PO DAILY [facility] Escitalopram Oxalate (Lexapro -) 5 mg PO HS [facility] Last Admin: 02/14/18 22:26 Dose: 5 mg Heparin Sodium (Porcine) (Heparin -) 1,000 unit IVPUSH PRN PRN PRN Reason: Heparin Heparin Sodium (Porcine) (Heparin -) 5,000 unit IVPUSH PRN PRN PRN Reason: Heparin HEPARIN SOD,PORK IN 0.45% NACL (Heparin-1/2ns 25,000 Units/500) 25,000 units in 500 mls @ 20 mls/hr IVPB TITR [facility]; Protocol Last Admin: 02/14/18 12:59 Dose: 1,000 units/hr, 20 mls/hr Insulin Aspart (Novolog Vial Sliding Scale -) 1 vial SQ ACHS [facility]; Protocol Last Admin: 02/14/18 16:51 Dose: 10 units Losartan Potassium (Cozaar -) 12.5 mg PO BID [facility] Pantoprazole Sodium (Protonix -) 40 mg PO DAILY [facility] Last Admin: 02/14/18 10:16 Dose: 40 mg Rosuvastatin Calcium (Crestor -) 10 mg PO HS [facility] Last Admin: 02/13/18 21:57 Dose: 10 mg Tamsulosin HCl (Flomax -) 0.4 mg PO HS [facility] Last Admin: 02/14/18 22:26 Dose: 0.4 mg Warfarin Sodium (Coumadin -) 5 mg PO DAILY@1800 [facility] Last Admin: 02/14/18 17:10 Dose: 5 mg - Objective Vital Signs: Vital Signs Temperature 98.3 F 02/14/18 16:00 Pulse Rate 89 02/14/18 16:00 Respiratory Rate 16 02/14/18 16:00 Blood Pressure 112/65 02/14/18 16:00 O2 Sat by Pulse Oximetry (%) 99 02/14/18 10:00 Constitutional: Yes: No Distress, Calm Eyes: Yes: Conjunctiva Clear HENT: Yes: WNL Neck: Yes: Supple Cardiovascular: Yes: Regular Rate and Rhythm, S1, S2 Respiratory: Yes: Regular, CTA Bilaterally, Cough Gastrointestinal: Yes: Normal Bowel Sounds, Soft Genitourinary: Yes: WNL Breast(s): Yes: WNL Musculoskeletal: Yes: WNL Extremities: Yes: WNL Edema: No Peripheral Pulses WNL: Yes Integumentary: Yes: WNL Neurological: Yes: Alert, Oriented, Cran Nerves II-XII Intact ...Motor Strength: WNL Psychiatric: Yes: Alert, Oriented Labs: CBC, BMP 02/14/18 15:10 02/14/18 05:30 INR, PTT INR 1.00 (0.83-1.09) 02/14/18 14:30 - ....Imaging X-ray: Report Reviewed, Image Reviewed Problem List - Problems (1) Chronic diastolic (congestive) heart failure Assessment/Plan: CHF improving with HD Code(s): I50.32 - CHRONIC DIASTOLIC (CONGESTIVE) HEART FAILURE (2) Hypotension Assessment/Plan: Have decided to stop issosorbide, hydralazine and maintain carvedilol 12.5 BID daily Code(s): I95.9 - HYPOTENSION, UNSPECIFIED (3) Weakness generalized Code(s): R53.1 - WEAKNESS (4) Anemia Assessment/Plan: Anemia most likely due to left hip hematoma Code(s): D64.9 - ANEMIA, UNSPECIFIED (5) Diabetes 1.5, managed as type 1 Code(s): E13.9 - OTHER SPECIFIED DIABETES MELLITUS WITHOUT COMPLICATIONS (6) Syncope Assessment/Plan: Hasn't had any episode of syncope since admission Code(s): R55 - SYNCOPE AND COLLAPSE Assessment/Plan imp: Anemia, CHF CAD with five stents Diabetes, Ventricular thrombus Hyperlipidemia Assess:As hemoglobin dropped to 7.9 this AM he was transfused one unit of packed cells. IV Heparin was held overnight and he was started on Coumadin, Pavix and Aspirin.
[2018-02-14 23:24] LABS: HEMATOCRIT 26.3 % (35.4-49); HEMOGLOBIN 8.6 GM/dL (11.7-16.9); MCH 27.6 pg (25.7-33.7); MCHC 32.6 g/dl (32.0-35.9); MEAN CELL VOLUME 84.7 fl (80-96); MEAN PLT VOLUME 10.7 fl (7.5-11.1); PLATELET COUNT 85 K/MM3 (134-434); RBC 3.11 M/mm3 (4.00-5.60); RDW 19.5 % (11.9-15.9); WHITE BLOOD COUNT 7.1 K/mm3 (4.0-10.0)
[2018-02-15 01:15] LABS: ALBUMIN 2.5 g/dl (3.4-5.0); ALK PHOS 73 U/L (45-117); ANION GAP 9 (8-16); BILIRUBIN,TOTAL 0.3 mg/dL (0.2-1.0); BLOOD UREA NITROGEN 35 mg/dL (7-18); CALCIUM 7.9 mg/dL (8.5-10.1); CHLORIDE 96 mmol/L (98-107); CO2 27 mmol/L (21-32); CREATININE 2.3 mg/dL (0.7-1.3); POTASSIUM 4.1 mmol/L (3.5-5.1); SGOT/AST 16 U/L (15-37); SGPT/ALT 13 U/L (12-78); SODIUM 132 mmol/L (136-145); TOT PROT 5.3 g/dl (6.4-8.2)
[2018-02-15 01:20] LABS: GLUCOSE,RANDOM 498 mg/dL (74-106)
[2018-02-15] MEDS: INSULIN SLIDING SCALE (NOVOLOG) 1 VIAL SQ SCH ×5 (01:28→22:45)
[2018-02-15] MEDS: ROSUVASTATIN CA 10 MG TABLET (FP) PO SCH ×2 (01:28→21:33)
[2018-02-15] MEDS: ALBUTEROL SO4 2.5/IPRATROPIUM 0.5 INH SOL 3 ML VIAL.NEB. NEB PRN ×2 (06:24→16:18)
[2018-02-15 07:10] LABS: HEMATOCRIT 24.7 % (35.4-49); HEMOGLOBIN 8.1 GM/dL (11.7-16.9); MCH 27.4 pg (25.7-33.7); MEAN CELL VOLUME 83.1 fl (80-96); MEAN PLT VOLUME 10.5 fl (7.5-11.1); PLATELET COUNT 79 K/MM3 (134-434); RBC 2.97 M/mm3 (4.00-5.60); RDW 19.4 % (11.9-15.9); WHITE BLOOD COUNT 6.6 K/mm3 (4.0-10.0)
[2018-02-15] MEDS: CALCIUM ACETATE 667 MG CAPSULE (FP) PO SCH ×3 (08:26→17:34)
[2018-02-15] MEDS: ASPIRIN COATED 81 MG TABLET.EC PO SCH (09:26)
[2018-02-15] MEDS: LOSARTAN POTASSIUM 25 MG TABLET PO SCH ×2 (09:27→21:32)
[2018-02-15] MEDS: CLOPIDOGREL BISULFATE 75 MG TABLET (FP) PO SCH (09:28)
[2018-02-15] MEDS: CARVEDILOL 12.5 MG TABLET (FP) PO SCH ×2 (09:28→21:32)
[2018-02-15] MEDS: PANTOPRAZOLE 40 MG TABLET (FP) PO SCH (09:28)
[2018-02-15] MEDS: ALLOPURINOL 300 MG TABLET (FP) PO SCH (09:28)
--- NOTE | 2018-02-15 10:13 | PN ---
Progress Note (short form) - Note Progress Note: Renal follow up for ESRD on HD Pt seen and examined at the bedside awake and alert no acute complaints denies any sob, cp, abd pain, n/v/d s/p prbc transfusion yesterday Vital Signs Temperature 97.8 F 02/15/18 08:00 Pulse Rate 80 02/15/18 08:00 Respiratory Rate 17 02/15/18 08:00 Blood Pressure 104/63 02/15/18 08:00 O2 Sat by Pulse Oximetry (%) 99 02/14/18 10:00 Intake & Output 02/12/18 02/13/18 02/14/18 02/15/18 23:59 23:59 23:59 23:59 Intake Total 896 172 Output Total 0 0 Balance 0 896 172 Weight 63.049 kg 65.9 kg 67.132 kg 67.33 kg NAD awake and alert RRR, No M/R CTA no rales or wheeze soft NT/ND Left hip hematoma no clubbing or cyanosis CBC, BMP 02/15/18 05:30 02/15/18 00:25 Laboratory Tests 11/27/17 11/30/17 02/15/18 11:30 05:30 00:25 Calcium 8.0 L 8.0 L 7.9 L Phosphorus 3.6 5.0 H Magnesium 2.2 Albumin 2.5 L Current Medications Albuterol/Ipratropium (Duoneb -) 1 amp NEB Q6H PRN PRN Reason: SHORTNESS OF BREATH Last Admin: 02/15/18 06:24 Dose: 1 amp Allopurinol (Zyloprim -) 300 mg PO DAILY [facility] Last Admin: 02/15/18 09:28 Dose: 300 mg Aspirin (Ecotrin -) 81 mg PO DAILY [facility] Last Admin: 02/15/18 09:26 Dose: 81 mg Calcium Acetate (Phoslo -) 667 mg PO TIDCM [facility] Last Admin: 02/15/18 08:26 Dose: 667 mg Carvedilol (Coreg -) 12.5 mg PO BID [facility] Last Admin: 02/15/18 09:28 Dose: 12.5 mg Clopidogrel Bisulfate (Plavix -) 75 mg PO DAILY [facility] Last Admin: 02/15/18 09:28 Dose: 75 mg Escitalopram Oxalate (Lexapro -) 5 mg PO HS [facility] Last Admin: 02/14/18 22:26 Dose: 5 mg Heparin Sodium (Porcine) (Heparin -) 1,000 unit IVPUSH PRN PRN PRN Reason: Heparin Heparin Sodium (Porcine) (Heparin -) 5,000 unit IVPUSH PRN PRN PRN Reason: Heparin HEPARIN SOD,PORK IN 0.45% NACL (Heparin-1/2ns 25,000 Units/500) 25,000 units in 500 mls @ 20 mls/hr IVPB TITR [facility]; Protocol Last Titration: 02/14/18 19:00 Dose: 1,000 units/hr, 20 mls/hr Insulin Aspart (Novolog Vial Sliding Scale -) 1 vial SQ ACHS [facility]; Protocol Last Admin: 02/15/18 06:21 Dose: 10 units Losartan Potassium (Cozaar -) 12.5 mg PO BID [facility] Last Admin: 02/15/18 09:27 Dose: 12.5 mg Pantoprazole Sodium (Protonix -) 40 mg PO DAILY [facility] Last Admin: 02/15/18 09:28 Dose: 40 mg Rosuvastatin Calcium (Crestor -) 10 mg PO HS [facility] Last Admin: 02/15/18 01:28 Dose: 10 mg Tamsulosin HCl (Flomax -) 0.4 mg PO HS [facility] Last Admin: 02/14/18 22:26 Dose: 0.4 mg Warfarin Sodium (Coumadin -) 5 mg PO DAILY@1800 [facility] Last Admin: 02/14/18 17:10 Dose: 5 mg 77 year old gentleman with Hx of ESRD on HD (started this year), CAD s/p PCI, Hypertension, Hyperlipidemia, CHF, Left Ventricular Thrombus on Coumadin who presented from home with weakness and hypotension. #Weakness/Hypotension r/o worsening anemia vs. CHF vs. infection #ESRD on HD with Hyperkalemia #Ventricular Thrombus #Anemia #Hip Hematoma w/o fracture no acute indication for DRY [employer] today next treatment planned for tomorrow continue heparin gtt as per proctol restarted on coumadin s/p PRBC transfusion yesterday will continue high dose AMY with HD Florencio Del Cid DO
[2018-02-15] MEDS ORDERED: SODIUM CHLORIDE 250 ML IV PRN ×2 (10:14→23:35)
--- NOTE | 2018-02-15 16:45 | PN ---
Progress Note, Physician History of Present Illness: No further near or true syncope, hemodynamics stabilizing. Received another 1 U pRBC today, left thigh hematoma increasing, heparin gtt d/dory. - Current Medication List Current Medications: Active Medications Albuterol/Ipratropium (Duoneb -) 1 amp NEB Q6H PRN PRN Reason: SHORTNESS OF BREATH Last Admin: 02/15/18 16:18 Dose: 1 amp Allopurinol (Zyloprim -) 300 mg PO DAILY [facility] Last Admin: 02/15/18 09:28 Dose: 300 mg Aspirin (Ecotrin -) 81 mg PO DAILY [facility] Last Admin: 02/15/18 09:26 Dose: 81 mg Calcium Acetate (Phoslo -) 667 mg PO TIDCM [facility] Last Admin: 02/15/18 08:26 Dose: 667 mg Carvedilol (Coreg -) 12.5 mg PO BID [facility] Last Admin: 02/15/18 09:28 Dose: 12.5 mg Clopidogrel Bisulfate (Plavix -) 75 mg PO DAILY [facility] Last Admin: 02/15/18 09:28 Dose: 75 mg Epoetin Fahad (Epogen -) 20,000 unit IVPUSH ONCE ONE Stop: 02/16/18 06:01 Escitalopram Oxalate (Lexapro -) 5 mg PO HS [facility] Last Admin: 02/14/18 22:26 Dose: 5 mg Heparin Sodium (Porcine) (Heparin -) 1,000 unit IVPUSH PRN PRN PRN Reason: Heparin Heparin Sodium (Porcine) (Heparin -) 5,000 unit IVPUSH PRN PRN PRN Reason: Heparin HEPARIN SOD,PORK IN 0.45% NACL (Heparin-1/2ns 25,000 Units/500) 25,000 units in 500 mls @ 20 mls/hr IVPB TITR [facility]; Protocol Last Titration: 02/14/18 19:00 Dose: 1,000 units/hr, 20 mls/hr Sodium Chloride (Normal Saline -) 250 mls @ 3,000 mls/hr IV PRN PRN PRN Reason: Hypotension during Dialysis Stop: 02/16/18 10:14 Insulin Aspart (Novolog Vial Sliding Scale -) 1 vial SQ ACHS [facility]; Protocol Last Admin: 02/15/18 12:56 Dose: 4 units Losartan Potassium (Cozaar -) 12.5 mg PO BID [facility] Last Admin: 02/15/18 09:27 Dose: 12.5 mg Pantoprazole Sodium (Protonix -) 40 mg PO DAILY [facility] Last Admin: 02/15/18 09:28 Dose: 40 mg Rosuvastatin Calcium (Crestor -) 10 mg PO [facility] Last Admin: 02/15/18 01:28 Dose: 10 mg Tamsulosin HCl (Flomax -) 0.4 mg PO [facility] Last Admin: 02/14/18 22:26 Dose: 0.4 mg Warfarin Sodium (Coumadin -) 5 mg PO DAILY@1800 [facility] Last Admin: 02/14/18 17:10 Dose: 5 mg - Objective Vital Signs: Vital Signs Temperature 97.8 F 02/15/18 08:00 Pulse Rate 80 02/15/18 08:00 Respiratory Rate 17 02/15/18 08:00 Blood Pressure 104/63 02/15/18 08:00 O2 Sat by Pulse Oximetry (%) 99 02/14/18 10:00 Constitutional: Yes: No Distress, Calm, Thin Neck: Yes: Supple Cardiovascular: Yes: Regular Rate and Rhythm Respiratory: Yes: Regular, Diminished, On Nasal O2 Gastrointestinal: Yes: Normal Bowel Sounds, Soft Edema: No Labs: CBC, BMP 02/15/18 05:30 02/15/18 00:25 INR, PTT INR 1.00 (0.83-1.09) 02/14/18 14:30 - ....Imaging Chest X-ray: Report Reviewed (Early bilateral infiltrates) Problem List - Problems (1) Hip hematoma, left Code(s): S70.02XA - CONTUSION OF LEFT HIP, INITIAL ENCOUNTER Qualifiers: Encounter type: subsequent encounter Qualified Code(s): S70.02XD - Contusion of left hip, subsequent encounter Assessment/Plan 02/13/2018 Echo: LVEF 50-55%, apical AK, mild inferolateral HK, mild-mod inf HK , normal RV size and fxn, tr-mild MR - Problems (2) Weakness generalized Code(s): R53.1 - WEAKNESS (3) AV fistula Code(s): I77.0 - ARTERIOVENOUS FISTULA, ACQUIRED (4) Anemia in CKD (chronic kidney disease) Code(s): N18.9 - CHRONIC KIDNEY DISEASE, UNSPECIFIED; D63.1 - ANEMIA IN CHRONIC KIDNEY DISEASE HD per renal (5) Anxiety and depression Code(s): F41.8 - OTHER SPECIFIED ANXIETY DISORDERS (6) BPH (benign prostatic hypertrophy) Code(s): N40.0 - BENIGN PROSTATIC HYPERPLASIA WITHOUT LOWER URINRY TRACT SYMP (7) CVA (cerebral infarction) Assessment/Plan: On ASA, clopidogrel, and warfarin per INR, consider d/c concomitant ASA while on anticoagulant High-dose statin to keep LDL as low as possible. Physical rehabilitation. Code(s): I63.9 - CEREBRAL INFARCTION, UNSPECIFIED Qualifiers: Cerebral infarction mechanism: unspecified mechanism Qualified Code(s): I63.9 - Cerebral infarction, unspecified (8) Diabetes mellitus Code(s): E11.9 - TYPE 2 DIABETES MELLITUS WITHOUT COMPLICATIONS Qualifiers: Diabetes mellitus type: type 2 Diabetes mellitus complication status: with ophthalmic complications Diabetes mellitus complication detail: with diabetic retinopathy (9) Fall Code(s): W19.XXXA - UNSPECIFIED FALL, INITIAL ENCOUNTER Qualifiers: Encounter type: initial encounter Qualified Code(s): W19.XXXA - Unspecified fall, initial encounter (10) Hx of heart artery stent Assessment/Plan: Hx ND-->multiple stents. On clopidogrel and warfarin for ventricular thrombus), consider d/c ASA On carvedilol, losartan Code(s): Z95.5 - PRESENCE OF CORONARY ANGIOPLASTY IMPLANT AND GRAFT (11) Hyperlipidemia Assessment/Plan: Crestor 10 qd; keep LDL well below 70 mg/dL. Code(s): E78.5 - HYPERLIPIDEMIA, UNSPECIFIED Qualifiers: Hyperlipidemia type: pure hypercholesterolemia Qualified Code(s): E78.00 - Pure hypercholesterolemia, unspecified; E78.0 - Pure hypercholesterolemia (12) LV (left ventricular) mural thrombus Assessment/Plan: D/c heparin gtt due to increasing left thigh hematoma, continue warfarin for INR 2-3. Code(s): RFR1972 - (13) Hypotension Assessment/Plan: Hold hydralazine pending hemodynamic stability On carvedilol 12.5 bid; may decrease dose if necessary. Undergoing hemodialysis today; f/u electrolytes, vitals. Code(s): I95.9 - HYPOTENSION, UNSPECIFIED (14) Chronic diastolic (congestive) heart failure Assessment/Plan: ECHO this admission: preserved LVEF, with regional wall abnormalities (apical, inferior); borderline dilated LV; cannot exclude LV apical thrombus. On carvedilol; hydralazine held until low BP has improved. Consider retrial of ACEI or ARB, given CAD, enlarged LV, and that pt is now on hemodialysis. Pt was initially hyperkalemic, however. Code(s): I50.32 - CHRONIC DIASTOLIC (CONGESTIVE) HEART FAILURE
[2018-02-15] MEDS ORDERED: DEXTROSE 5%-WATER - 50 ML IVPB ONE (17:30)
[2018-02-15] MEDS ORDERED: cefTRIAXone SODIUM 1 GM VIAL ONE (17:30)
[2018-02-15 17:44] LABS: INR 1.19 (0.83-1.09); PROTHROMBIN TIME (PATIENT) 13.5 SEC (9.7-13.0)
[2018-02-15] MEDS: WARFARIN NA 5 MG TABLET (UD) PO SCH (17:59)
[2018-02-15] MEDS ORDERED: CEFTRIAXONE 1 GM in DEXTROSE 5%-WATER - 50 ML IVPB ONE (18:00)
[2018-02-15] MEDS: ESCITALOPRAM OXALATE 10 MG TABLET (FP) PO SCH (21:30)
[2018-02-15] MEDS: TAMSULOSIN HCL 0.4 MG CAP.ER.24H (FP) PO SCH (21:32)
--- NOTE | 2018-02-15 21:47 | PN ---
Progress Note, Physician History of Present Illness: 77 y/o admitted with syncope. Known diabetic,ESRD onHD, CAD post angioplasty, ventricular thrombus, Hematoma left thigh and hip area due to a fall, on coumadin,aspirin and plavix. Has been coughing persistently without any fever and chest Xray showed bilat. lower lobe infiltratesd and he was started on Rocephin after appropriate BC and sputum cultures. - Current Medication List Current Medications: Active Medications Albuterol/Ipratropium (Duoneb -) 1 amp NEB Q6H PRN PRN Reason: SHORTNESS OF BREATH Last Admin: 02/15/18 16:18 Dose: 1 amp Allopurinol (Zyloprim -) 300 mg PO DAILY [facility] Last Admin: 02/15/18 09:28 Dose: 300 mg Aspirin (Ecotrin -) 81 mg PO DAILY [facility] Last Admin: 02/15/18 09:26 Dose: 81 mg Calcium Acetate (Phoslo -) 667 mg PO TIDCM [facility] Last Admin: 02/15/18 17:34 Dose: 667 mg Carvedilol (Coreg -) 12.5 mg PO BID [facility] Last Admin: 02/15/18 21:32 Dose: 12.5 mg Clopidogrel Bisulfate (Plavix -) 75 mg PO DAILY [facility] Last Admin: 02/15/18 09:28 Dose: 75 mg Epoetin Fahad (Epogen -) 20,000 unit IVPUSH ONCE ONE Stop: 02/16/18 06:01 Escitalopram Oxalate (Lexapro -) 5 mg PO [facility] Last Admin: 02/15/18 21:30 Dose: 5 mg Sodium Chloride (Normal Saline -) 250 mls @ 3,000 mls/hr IV PRN PRN PRN Reason: Hypotension during Dialysis Stop: 02/16/18 10:14 Insulin Aspart (Novolog Vial Sliding Scale -) 1 vial SQ ACHS [facility]; Protocol Last Admin: 02/15/18 17:39 Dose: 6 units Losartan Potassium (Cozaar -) 12.5 mg PO BID [facility] Last Admin: 02/15/18 21:32 Dose: 12.5 mg Pantoprazole Sodium (Protonix -) 40 mg PO DAILY [facility] Last Admin: 02/15/18 09:28 Dose: 40 mg Rosuvastatin Calcium (Crestor -) 10 mg PO [facility] Last Admin: 08/19/18 21:33 Dose: 10 mg Tamsulosin HCl (Flomax -) 0.4 mg PO HS [facility] Last Admin: 02/15/18 21:32 Dose: 0.4 mg Warfarin Sodium (Coumadin -) 5 mg PO DAILY@1800 [facility] Last Admin: 02/15/18 17:59 Dose: 5 mg - Objective Vital Signs: Vital Signs Temperature 98.4 F 02/15/18 18:41 Pulse Rate 83 02/15/18 18:41 Respiratory Rate 17 02/15/18 18:41 Blood Pressure 99/62 02/15/18 18:41 O2 Sat by Pulse Oximetry (%) 99 02/14/18 10:00 Constitutional: Yes: Well Nourished, No Distress, Calm Eyes: Yes: Conjunctiva Clear, EOM Intact HENT: Yes: WNL Neck: Yes: Supple Cardiovascular: Yes: Regular Rate and Rhythm, S1, S2 Respiratory: Yes: Regular, CTA Bilaterally, Cough Gastrointestinal: Yes: Normal Bowel Sounds, Soft Genitourinary: Yes: WNL Breast(s): Yes: WNL Musculoskeletal: Yes: WNL Extremities: Yes: WNL Edema: No Peripheral Pulses WNL: Yes Integumentary: Yes: WNL Neurological: Yes: Alert, Oriented, Numbness, Paresthesia ...Motor Strength: WNL Psychiatric: Yes: Alert, Oriented Labs: CBC, BMP 02/15/18 05:30 02/15/18 00:25 INR, PTT INR 1.19 (0.83-1.09) H 02/15/18 16:50 - ....Imaging Chest X-ray: Report Reviewed, Image Reviewed Problem List - Problems (1) Chronic diastolic (congestive) heart failure Assessment/Plan: After HD and d/c imdur and Hydralazine his alertness has increased and also CHF Code(s): I50.32 - CHRONIC DIASTOLIC (CONGESTIVE) HEART FAILURE (2) Hypotension Assessment/Plan: BP has been more controlled after D/C Imdur and D/c Code(s): I95.9 - HYPOTENSION, UNSPECIFIED (3) Anemia Assessment/Plan: Anemia is stable, which is due to the huge hematoma and anemia of chronic disease Code(s): D64.9 - ANEMIA, UNSPECIFIED Qualifiers: Chronic kidney disease stage: on chronic dialysis Qualified Code(s): N18.6 - End stage renal disease; D63.1 - Anemia in chronic kidney disease; Z99.2 - Dependence on renal dialysis (4) Diabetes 1.5, managed as type 1 Code(s): E13.9 - OTHER SPECIFIED DIABETES MELLITUS WITHOUT COMPLICATIONS (5) Syncope Assessment/Plan: Has had episodes of hypotension and meds being adjusted Code(s): R55 - SYNCOPE AND COLLAPSE (6) Pneumonia Assessment/Plan: He remains afebrile but chest XRAY was read as possible pneumonia and he was started on Rocephin Code(s): J18.9 - PNEUMONIA, UNSPECIFIED ORGANISM Assessment/Plan Imp:Syncope, Diastolic CHF CAD with five stents, Ventricular thrombus, ESRD on HD AV shunt ANemia of acute blood loss Anemia of chronic disease Hematoma Diabetes with neuropathy Assess: Chest Xray showed lower lobe infiltrates, but he remains afebrile and without leukocytosis. Have started on IV Rocephin after cultures wewre taken.He will be seen by ID, Dr Rios.
[2018-02-15] MEDS ORDERED: INSULIN (NOVOLOG) ASPART 100 UNITS/ML 10ML VIAL SQ STA (22:09)
[2018-02-16] MEDS: INSULIN SLIDING SCALE (NOVOLOG) 1 VIAL SQ SCH ×4 (06:19→22:12)
[2018-02-16 06:31] LABS: HEMATOCRIT 28.4 % (35.4-49); HEMOGLOBIN 9.6 GM/dL (11.7-16.9); MCH 28.6 pg (25.7-33.7); MCHC 33.8 g/dl (32.0-35.9); MEAN CELL VOLUME 84.7 fl (80-96); MEAN PLT VOLUME 10.2 fl (7.5-11.1); PLATELET COUNT 77 K/MM3 (134-434); RBC 3.35 M/mm3 (4.00-5.60); RDW 18.4 % (11.9-15.9); WHITE BLOOD COUNT 6.7 K/mm3 (4.0-10.0)
[2018-02-16] MEDS: CALCIUM ACETATE 667 MG CAPSULE (FP) PO SCH ×3 (09:01→18:20)
--- NOTE | 2018-02-16 09:11 | PN ---
Progress Note (short form) - Note Progress Note: ID consult dictated 77 year old man with history of DM, CAD, ESRD- on HD s/p venoplasty on 02/12, discharged home and returned later that day with weakness +vomiting he had fallen 02/10 at home and had a large right hip/flank hematoma s/p blood transfusion this weekend for anemia felt to be secondary to blood loss from hematoma received rocephin one dose yesterday asked to see for cough no fevers no leukocytosis cxray c/w congestion suspect this is volume overload from transfusion -clinically and radiographically do not suspect pneumonia he is scheduled for HD today encourage incentive spirometry and continue nebulizers blood cultures repeated will follow with you Problem List - Problems (1) Fluid overload Code(s): E87.70 - FLUID OVERLOAD, UNSPECIFIED Qualifiers: Hypervolemia type: unspecified Qualified Code(s): E87.70 - Fluid overload, unspecified (2) Anemia Code(s): D64.9 - ANEMIA, UNSPECIFIED (3) Hip hematoma, left Code(s): S70.02XA - CONTUSION OF LEFT HIP, INITIAL ENCOUNTER Qualifiers: Encounter type: subsequent encounter Qualified Code(s): S70.02XD - Contusion of left hip, subsequent encounter (4) ESRD (end stage renal disease) on dialysis Code(s): N18.6 - END STAGE RENAL DISEASE; Z99.2 - DEPENDENCE ON RENAL DIALYSIS (5) CVA (cerebral infarction) Code(s): I63.9 - CEREBRAL INFARCTION, UNSPECIFIED Qualifiers: Cerebral infarction mechanism: unspecified mechanism Qualified Code(s): I63.9 - Cerebral infarction, unspecified (6) Diabetes mellitus Code(s): E11.9 - TYPE 2 DIABETES MELLITUS WITHOUT COMPLICATIONS Qualifiers: Diabetes mellitus type: type 2 Diabetes mellitus complication status: with ophthalmic complications Diabetes mellitus complication detail: with diabetic retinopathy (7) CAD (coronary artery disease) Code(s): I25.10 - ATHSCL HEART DISEASE OF [place] CORONARY ARTERY W/O ANG PCTRS
[2018-02-16] MEDS: ASPIRIN COATED 81 MG TABLET.EC PO SCH (09:12)
[2018-02-16] MEDS: LOSARTAN POTASSIUM 25 MG TABLET PO SCH ×3 (09:13→22:00)
[2018-02-16] MEDS: CLOPIDOGREL BISULFATE 75 MG TABLET (FP) PO SCH (09:14)
[2018-02-16] MEDS: PANTOPRAZOLE 40 MG TABLET (FP) PO SCH (09:15)
[2018-02-16] MEDS ORDERED: EPOETIN ALFA 20,000 UNIT/1 ML VIAL IVPUSH ONE (10:00)
--- NOTE | 2018-02-16 10:46 | CONS ---
DATE OF CONSULTATION: DATE OF DICTATION: 02/16/2018 INFECTIOUS DISEASE CONSULTATION REQUESTED BY: Coleman Hess MD HISTORY OF PRESENT ILLNESS: This is a 77-year-old man with a past medical history of coronary artery disease, diabetes, hypertension, CHF. He recently a month ago started on dialysis. He had venoplasty on the February 12 and later the night of February 12 he was brought to the emergency room with weakness. In the ER, he was stable. He had several episodes of vomiting, no abdominal pain, no fevers. Of note, 3 days prior he had had a fall at home on his left side, and he has had a large left hip and flank hematoma. He had blood cultures drawn on admission that are negative. I am asked to see him for cough. He has received 2 units of packed cells since admission. PAST MEDICAL HISTORY: Notable for CVA, coronary artery disease, CHF, hypertension, hyperlipidemia, [place], GI bleed, renal failure, hemodialysis, anemia, anxiety, and diabetes. SURGICAL HISTORY: Notable for stent and AV fistula. He has a right-sided Permacath as well. FAMILY HISTORY: Noncontributory. SOCIAL HISTORY: There is no history of cigarette or substance use. He lives at home with his . ALLERGIES: He has no known drug allergies. MEDICATIONS: At home include Plavix, insulin, Crestor, Flomax, PhosLo, Coreg, Apresoline, allopurinol, aspirin, Isordil, Coumadin, Lexapro, and Demadex, and Lovenox. REVIEW OF SYSTEMS: As per HPI. Currently, he is awake. He reports a lot of pain on the side of his hematoma. He is quite weak. He had some oatmeal for breakfast. He has some moist cough. PHYSICAL EXAMINATION: Vital Signs: He is afebrile. Temperature is 98.2, pulse 84, blood pressure 106/84, respiratory rate is 20, weight 67 kg. He was 63 kg on admission on February 12. HEENT: He is normocephalic. His eyes are anicteric. Neck: Supple. Lungs: Scattered rhonchi. Heart: Regular rate and rhythm. His Permacath site is without any erythema. Abdomen: Soft and nontender. Extremities: His left arm is without any erythema. He has extensive ecchymosis on the left arm as well as his left hip and left flank. Without edema. LABORATORIES: Notable for white count of 6.7, hemoglobin 9.6, platelets 77,000. Chemistries show BUN 35 and creatinine 2.3. Urinalysis is negative. Blood cultures from admission are pending. Repeat blood cultures are pending as well. Chest x-ray was done yesterday and consistent with cardiomegaly and congestion. He has increased markings in both the perihilar regions. He has a right IJ line as well. IN SUMMARY: This is a 77-year-old man with history of coronary artery disease, diabetes, cerebrovascular accident, end-stage renal disease on dialysis who now I am asked to see for cough. He has no fevers or white counts. Chest x-ray is consistent with congestion. Of note, he has received 2 units of blood since admission. He was last dialyzed on February 13. I would suspect some of his symptoms are mainly due to his overall debilitated state and his volume overload and I suspect he will improve with dialysis. Would encourage incentive spirometry. Would encourage nebulizer treatment and out of bed as tolerated. Will follow with you. He received a dose of ceftriaxone but radiographically do not suspect pneumonia so would watch him off antibiotics for the present. BATSHEVA CORREIA M.D. [id number]
[2018-02-16 11:13] LABS: ALBUMIN 2.3 g/dl (3.4-5.0); ALK PHOS 68 U/L (45-117); ANION GAP 7 (8-16); BILIRUBIN,TOTAL 0.3 mg/dL (0.2-1.0); BLOOD UREA NITROGEN 39 mg/dL (7-18); CALCIUM 7.8 mg/dL (8.5-10.1); CHLORIDE 98 mmol/L (98-107); CO2 31 mmol/L (21-32); CREATININE 2.1 mg/dL (0.7-1.3); GLUCOSE,RANDOM 247 mg/dL (74-106); PHOSPHOROUS 2.4 mg/dL (2.5-4.9); POTASSIUM 3.8 mmol/L (3.5-5.1); SGOT/AST 14 U/L (15-37); SGPT/ALT 13 U/L (12-78); SODIUM 136 mmol/L (136-145); TOT PROT 5.2 g/dl (6.4-8.2)
[2018-02-16] MEDS: CARVEDILOL 12.5 MG TABLET (FP) PO SCH ×2 (12:45→22:00)
[2018-02-16] MEDS: ALLOPURINOL 300 MG TABLET (FP) PO SCH (12:45)
[2018-02-16] MEDS ORDERED: METOPROLOL TARTRATE 5 MG/5 ML VIAL ONE ×2 (13:47→15:44)
[2018-02-16 15:00] LABS: CREATININE 0.9 mg/dL (0.7-1.3)
[2018-02-16] MEDS ORDERED: METOPROLOL TARTRATE 5 MG/5 ML VIAL IVPUSH ONE ×2 (15:46→16:45)
[2018-02-16] MEDS ORDERED: dilTIAZem HCL 125 MG/25 ML - 25 ML VIAL ONE (17:33)
--- NOTE | 2018-02-16 17:37 | PN ---
Progress Note, Physician Chief Complaint: Pt alert; denies chest pain or palpitations; his is at bedside. History of Present Illness: Patient is a 77 year old male (linnea Kingsley), with PMHx of CVA, CAD (MD--> 5 coronary stents at [facility] 08/17, with subsequent renal failure and ventricular thrombus; currently on ASA, clopidogrel, and warfarin), ESRD ( hemodialysis since 11/2017), diastolic CHF, HTN, HLD, s/p GI Bleed, Anxiety, Diabetes Mellitus, who presents with generalized weakness and low blood pressure. The patients (Dr. Davila) states that this afternoon he vomited and noted that his blood pressure was relatively low and he was feeling weak. She brought him to [facility] ER where he has history. He receives dialysis every Friday, , and Friday, but did not go today. Earlier in the day, prior to planned hemodialysis, he underwent renal angioplasty by the vascular surgeon (Dr. Huff) and was NPO. Surgical Hx: December 05 2017 - Renal angioplasty. 02/12/18 - Left AVF with stenosis. MD (Jul, 2017) with multiple stent placements simultaenously. PCP: Coleman Hess - Current Medication List Current Medications: Active Medications Albuterol/Ipratropium (Duoneb -) 1 amp NEB Q6H PRN PRN Reason: SHORTNESS OF BREATH Last Admin: 02/15/18 16:18 Dose: 1 amp Allopurinol (Zyloprim -) 300 mg PO DAILY [facility] Last Admin: 02/16/18 12:45 Dose: 300 mg Aspirin (Ecotrin -) 81 mg PO DAILY [facility] Last Admin: 02/16/18 09:12 Dose: 81 mg Calcium Acetate (Phoslo -) 667 mg PO TIDCM [facility] Last Admin: 02/16/18 12:43 Dose: 667 mg Carvedilol (Coreg -) 12.5 mg PO BID [facility] Last Admin: 02/16/18 12:45 Dose: 12.5 mg Clopidogrel Bisulfate (Plavix -) 75 mg PO DAILY [facility] Last Admin: 02/16/18 09:14 Dose: 75 mg Escitalopram Oxalate (Lexapro -) 5 mg PO HS [facility] Last Admin: 02/15/18 21:30 Dose: 5 mg Sodium Chloride (Normal Saline -) 250 mls @ 3,000 mls/hr IV PRN PRN PRN Reason: Hypotension during Dialysis Stop: 02/16/18 23:35 Insulin Aspart (Novolog Vial Sliding Scale -) 1 vial SQ ACHS [facility]; Protocol Last Admin: 02/16/18 12:43 Dose: 4 units Losartan Potassium (Cozaar -) 12.5 mg PO BID [facility] Last Admin: 02/15/18 21:32 Dose: 12.5 mg Pantoprazole Sodium (Protonix -) 40 mg PO DAILY [facility] Last Admin: 02/16/18 09:15 Dose: 40 mg Rosuvastatin Calcium (Crestor -) 10 mg PO [facility] Last Admin: 02/15/18 21:33 Dose: 10 mg Tamsulosin HCl (Flomax -) 0.4 mg PO [facility] Last Admin: 02/15/18 21:32 Dose: 0.4 mg Warfarin Sodium (Coumadin -) 5 mg PO DAILY@1800 [facility] Last Admin: 02/15/18 17:59 Dose: 5 mg - Objective Vital Signs: Vital Signs Temperature 98.5 F 02/16/18 13:00 Pulse Rate 145 H 02/16/18 16:00 Respiratory Rate 18 02/16/18 16:00 Blood Pressure 100/62 02/16/18 16:00 O2 Sat by Pulse Oximetry (%) 100 02/15/18 21:00 Constitutional: Yes: Thin Eyes: Yes: WNL HENT: Yes: WNL Neck: Yes: WNL Cardiovascular: Yes: Pulse Irregular Respiratory: Yes: Diminished Gastrointestinal: Yes: Soft ...Rectal Exam: Yes: Deferred Genitourinary: No: Anuria Musculoskeletal: Yes: Muscle Weakness Extremities: Yes: Cool Edema: No Peripheral Pulses WNL: Yes Integumentary: Yes: WNL Neurological: Yes: Alert, Oriented, Weakness Psychiatric: Yes: Other Labs: CBC, BMP 02/16/18 05:30 02/16/18 11:35 INR, PTT INR 1.19 (0.83-1.09) H 02/15/18 16:50 Abnormal Lab Results 02/15/18 02/16/18 02/16/18 16:50 05:30 09:45 RBC 3.35 L Hgb 9.6 L Hct 28.4 L RDW 18.4 H Plt Count 77 L PT with INR 13.50 H INR 1.19 H Anion Gap 7 L BUN 39 H Creatinine 2.1 H Random Glucose 247 H D Calcium 7.8 L Phosphorus 2.4 L D AST 14 L Total Protein 5.2 L Albumin 2.3 L - ....Imaging Other: Image Reviewed (telemetry: AFlutter with variable AV block) Problem List - Problems (1) Vomiting Code(s): R11.10 - VOMITING, UNSPECIFIED (2) Weakness generalized Code(s): R53.1 - WEAKNESS (3) AV fistula Code(s): I77.0 - ARTERIOVENOUS FISTULA, ACQUIRED (4) Anemia in CKD (chronic kidney disease) Code(s): N18.9 - CHRONIC KIDNEY DISEASE, UNSPECIFIED; D63.1 - ANEMIA IN CHRONIC KIDNEY DISEASE (5) Anxiety and depression Code(s): F41.8 - OTHER SPECIFIED ANXIETY DISORDERS (6) BPH (benign prostatic hypertrophy) Code(s): N40.0 - BENIGN PROSTATIC HYPERPLASIA WITHOUT LOWER URINRY TRACT SYMP (7) CVA (cerebral infarction) Code(s): I63.9 - CEREBRAL INFARCTION, UNSPECIFIED Qualifiers: Cerebral infarction mechanism: unspecified mechanism Qualified Code(s): I63.9 - Cerebral infarction, unspecified (8) Diabetes mellitus Code(s): E11.9 - TYPE 2 DIABETES MELLITUS WITHOUT COMPLICATIONS Qualifiers: Diabetes mellitus type: type 2 Diabetes mellitus complication status: with ophthalmic complications Diabetes mellitus complication detail: with diabetic retinopathy (9) Fall Code(s): W19.XXXA - UNSPECIFIED FALL, INITIAL ENCOUNTER Qualifiers: Encounter type: initial encounter Qualified Code(s): W19.XXXA - Unspecified fall, initial encounter (10) Hx of heart artery stent Code(s): Z95.5 - PRESENCE OF CORONARY ANGIOPLASTY IMPLANT AND GRAFT (11) Hyperlipidemia Code(s): E78.5 - HYPERLIPIDEMIA, UNSPECIFIED Qualifiers: Hyperlipidemia type: pure hypercholesterolemia Qualified Code(s): E78.00 - Pure hypercholesterolemia, unspecified; E78.0 - Pure hypercholesterolemia (12) LV (left ventricular) mural thrombus Assessment/Plan: restart warfarin; IV heparin until INR 2-3. Code(s): TKS2661 - (13) Hypotension Assessment/Plan: Hold hydralazine. On carvedilol; may decrease dose if necessary. Undergoing hemodialysis today; f/u electrolytes, vitals. Code(s): I95.9 - HYPOTENSION, UNSPECIFIED (14) Chronic diastolic (congestive) heart failure Assessment/Plan: ECHO this admission: preserved LVEF, with regional wall abnormalities (apical, inferior); borderline dilated LV; cannot exclude LV apical thrombus. On carvedilol; hydralazine held until low BP has improved. Consider retrail of ACEI or ARB, given CAD, enlarged LV, and that pt is now on hemodialysis. Pt was initially hyperkalemic, however. Code(s): I50.32 - CHRONIC DIASTOLIC (CONGESTIVE) HEART FAILURE (15) Atrial flutter Assessment/Plan: Pt developed atrial flutter during hemodialysis today; presently at HR of 149; AFlutter with 2:1 AV block. Pt was given usual carvedilol 12.5 mg earlier; responded to 250 ml 0.9% NS bolus and metoprolol IVP 2.5 mg by transient lowering of HR to 120s bpm. Plan: Responsed well transiently to diltiazem 10 mg IVP: HR in 80s, still in Atrial flutter with 3:1 AV block; after 15 minutes, HR returned to 149 bpm. Started IV diltiazem drip; after 2nd 10 mg bolus, HR again reverted to 80s bpm. BP 90/62 mmHg. Keep Mg 2-2.4, K 4-4.5, PO4 2.5-4.9. On warfarin for both AF/flutter and LV thrombus. Code(s): I48.92 - UNSPECIFIED ATRIAL FLUTTER
[2018-02-16 17:46] LABS: INR 1.36 (0.83-1.09); PROTHROMBIN TIME (PATIENT) 15.4 SEC (9.7-13.0)
[2018-02-16] MEDS ORDERED: SODIUM CHLORIDE 250 ML IV STA (17:58)
[2018-02-16] MEDS ORDERED: dilTIAZem HCL 50 MG/10 ML - 10 ML VIAL IVPUSH ONE (18:00)
[2018-02-16] MEDS ORDERED: PIPERACILLIN/TAZOBACTAM 2.25 GM VIAL IVPB ONE ×2 (18:08→22:13)
[2018-02-16] MEDS ORDERED: DEXTROSE 5%-WATER - 50 ML IVPB ONE ×2 (18:08→22:13)
[2018-02-16] MEDS: PIPERACILLIN/TAZOB 2.25 GM 2.25 GM in DEXTROSE 5%-WATER - 50 ML IVPB SCH ×2 (18:18→22:14)
[2018-02-16] MEDS: WARFARIN NA 5 MG TABLET (UD) PO SCH (18:18)
[2018-02-16] MEDS: DILTIAZEM INJECTION 125 MG in SODIUM CHLORIDE 100 ML IVPB SCH (18:19)
--- NOTE | 2018-02-16 18:37 | PN ---
Progress Note (short form) - Note Progress Note: ............. ICU Cover med note for Dr Hess .............. Current Medications Albuterol/Ipratropium (Duoneb -) 1 amp NEB Q6H PRN PRN Reason: SHORTNESS OF BREATH Last Admin: 02/15/18 16:18 Dose: 1 amp Allopurinol (Zyloprim -) 300 mg PO DAILY [facility] Last Admin: 02/16/18 12:45 Dose: 300 mg Aspirin (Ecotrin -) 81 mg PO DAILY [facility] Last Admin: 02/16/18 09:12 Dose: 81 mg Calcium Acetate (Phoslo -) 667 mg PO TIDCM [facility] Last Admin: 02/16/18 18:20 Dose: 667 mg Carvedilol (Coreg -) 12.5 mg PO BID [facility] Last Admin: 02/16/18 12:45 Dose: 12.5 mg Clopidogrel Bisulfate (Plavix -) 75 mg PO DAILY [facility] Last Admin: 02/16/18 09:14 Dose: 75 mg Escitalopram Oxalate (Lexapro -) 5 mg PO HS [facility] Last Admin: 02/15/18 21:30 Dose: 5 mg Piperacillin Sod/Tazobactam (Sod 2.25 gm/ Dextrose) 50 mls @ 100 mls/hr IVPB BID [facility]; Protocol Last Admin: 02/16/18 18:18 Dose: 100 mls/hr Diltiazem HCl 125 mg/ Sodium (Chloride) 125 mls @ 5 mls/hr IVPB TITR [facility]; Protocol Last Admin: 02/16/18 18:19 Dose: 5 mg/hr, 5 mls/hr Sodium Chloride (Normal Saline -) 250 mls @ 250 mls/hr IV ASDIR STA Stop: 02/16/18 18:57 Insulin Aspart (Novolog Vial Sliding Scale -) 1 vial SQ ACHS [facility]; Protocol Last Admin: 02/16/18 12:43 Dose: 4 units Losartan Potassium (Cozaar -) 12.5 mg PO BID [facility] Last Admin: 02/16/18 12:45 Dose: Not Given Pantoprazole Sodium (Protonix -) 40 mg PO DAILY [facility] Last Admin: 02/16/18 09:15 Dose: 40 mg Rosuvastatin Calcium (Crestor -) 10 mg PO HS [facility] Last Admin: 02/15/18 21:33 Dose: 10 mg Tamsulosin HCl (Flomax -) 0.4 mg PO [facility] Last Admin: 02/15/18 21:32 Dose: 0.4 mg Warfarin Sodium (Coumadin -) 5 mg PO DAILY@1800 [facility] Last Admin: 02/16/18 18:18 Dose: 5 mg Laboratory Results - last 24 hr 02/15/18 02/16/18 02/16/18 22:02 05:30 05:30 WBC 6.7 RBC 3.35 L Hgb 9.6 L Hct 28.4 L MCV 84.7 MCH 28.6 MCHC 33.8 RDW 18.4 H Plt Count 77 L MPV 10.2 PT with INR INR PTT (Actin FS) 29.4 Sodium Potassium Chloride Carbon Dioxide Anion Gap BUN Creatinine Creat Clearance w eGFR POC Glucometer [phone] Random Glucose Calcium Phosphorus Total Bilirubin AST ALT Alkaline Phosphatase Total Protein Albumin 02/16/18 02/16/18 02/16/18 05:34 09:45 11:35 WBC RBC Hgb Hct MCV MCH MCHC RDW Plt Count MPV PT with INR INR PTT (Actin FS) Sodium 136 Potassium 3.8 Chloride 98 Carbon Dioxide 31 Anion Gap 7 L BUN 39 H 13 D Creatinine 2.1 H 0.9 Creat Clearance w eGFR 30.70 POC Glucometer [phone] Random Glucose 247 H D Calcium 7.8 L Phosphorus 2.4 L D Total Bilirubin 0.3 AST 14 L ALT 13 Alkaline Phosphatase 68 Total Protein 5.2 L Albumin 2.3 L 02/16/18 02/16/18 12:38 14:05 WBC RBC Hgb Hct MCV MCH MCHC RDW Plt Count MPV PT with INR 15.40 H INR 1.36 H PTT (Actin FS) Sodium Potassium Chloride Carbon Dioxide Anion Gap BUN Creatinine Creat Clearance w eGFR POC Glucometer [phone] Random Glucose Calcium Phosphorus Total Bilirubin AST ALT Alkaline Phosphatase Total Protein Albumin Vital Signs Temperature 98.5 F 02/16/18 13:00 Pulse Rate 145 H 02/16/18 16:45 Respiratory Rate 18 02/16/18 16:00 Blood Pressure 94/58 02/16/18 16:45 O2 Sat by Pulse Oximetry (%) 100 02/15/18 21:00 CC; weak & coughing ````````````````` skin--ecchymosis L thigh eyes--non injected; eomi lungs--diminished breaths bilat heart--Rapid RR abd--soft ext--no edema of the LE neuro--awake; verbal; sparse speech, but alert; follows commands ``````````````````````````````````````````````` Summ > SVT--likely current cause of hypotension; which developed during dialysis session today; was not helped much by IV BB, and to get IV CCB > Hypotension--upon admission likley 2nd blood loss compounded by his Cardiac meds. > ESRD--onHD > anemia--of chronic Dz superimposed on local bleed 2nd trauma > CAD-- post angioplasty, ventricular thrombus, on Plavix, asa and warf; check daily INR > DM--on cover scale > Hematoma left thigh and hip --due to a fall, on coumadin,aspirin and plavix. IV hep stopped due to expanding hematoma > Asp PNA--seen by ID; given Zosyn Likely developed it dutring his anesthesia for plasty procedure ~~~~~~~~~~~~~~~ Dr Jean......for Dr Hess
--- NOTE | 2018-02-16 18:39 | PN ---
Progress Note (short form) - Note Progress Note: Renal follow up for ESRD on HD Pt seen and examined during dialysis earlier today initially dialysis was uneventful, however pt developed tachycardia and noted to be in Aflutter IV bolous given back to pt and pt was given IV Cardizem per Cardiology UF amount limited because of hypotension Vital Signs Temperature 98.5 F 02/16/18 13:00 Pulse Rate 145 H 02/16/18 16:45 Respiratory Rate 18 02/16/18 16:00 Blood Pressure 94/58 02/16/18 16:45 O2 Sat by Pulse Oximetry (%) 100 02/15/18 21:00 Intake & Output 02/13/18 02/14/18 02/15/18 02/16/18 23:59 23:59 23:59 23:59 Intake Total 896 1024 Output Total 0 0 0 Balance 0 896 1024 0 Weight 65.9 kg 67.132 kg 67.33 kg 67.16 kg NAD awake and alert RRR, No M/R CTA no rales or wheeze soft NT/ND Left hip hematoma no clubbing or cyanosis CBC, BMP 02/16/18 05:30 02/16/18 11:35 Current Medications Albuterol/Ipratropium (Duoneb -) 1 amp NEB Q6H PRN PRN Reason: SHORTNESS OF BREATH Last Admin: 02/15/18 16:18 Dose: 1 amp Allopurinol (Zyloprim -) 300 mg PO DAILY [facility] Last Admin: 02/16/18 12:45 Dose: 300 mg Aspirin (Ecotrin -) 81 mg PO DAILY [facility] Last Admin: 02/16/18 09:12 Dose: 81 mg Calcium Acetate (Phoslo -) 667 mg PO TIDCM [facility] Last Admin: 02/16/18 18:20 Dose: 667 mg Carvedilol (Coreg -) 12.5 mg PO BID [facility] Last Admin: 02/16/18 12:45 Dose: 12.5 mg Clopidogrel Bisulfate (Plavix -) 75 mg PO DAILY [facility] Last Admin: 02/16/18 09:14 Dose: 75 mg Escitalopram Oxalate (Lexapro -) 5 mg PO HS [facility] Last Admin: 02/15/18 21:30 Dose: 5 mg Piperacillin Sod/Tazobactam (Sod 2.25 gm/ Dextrose) 50 mls @ 100 mls/hr IVPB BID [facility]; Protocol Last Admin: 02/16/18 18:18 Dose: 100 mls/hr Diltiazem HCl 125 mg/ Sodium (Chloride) 125 mls @ 5 mls/hr IVPB TITR [facility]; Protocol Last Admin: 02/16/18 18:19 Dose: 5 mg/hr, 5 mls/hr Sodium Chloride (Normal Saline -) 250 mls @ 250 mls/hr IV ASDIR STA Stop: 02/16/18 18:57 Insulin Aspart (Novolog Vial Sliding Scale -) 1 vial SQ ACHS [facility]; Protocol Last Admin: 02/16/18 12:43 Dose: 4 units Losartan Potassium (Cozaar -) 12.5 mg PO BID [facility] Last Admin: 02/16/18 12:45 Dose: Not Given Pantoprazole Sodium (Protonix -) 40 mg PO DAILY [facility] Last Admin: 02/16/18 09:15 Dose: 40 mg Rosuvastatin Calcium (Crestor -) 10 mg PO HS [facility] Last Admin: 02/15/18 21:33 Dose: 10 mg Tamsulosin HCl (Flomax -) 0.4 mg PO HS [facility] Last Admin: 02/15/18 21:32 Dose: 0.4 mg Warfarin Sodium (Coumadin -) 5 mg PO DAILY@1800 [facility] Last Admin: 02/16/18 18:18 Dose: 5 mg 77 year old gentleman with Hx of ESRD on HD (started this year), CAD s/p PCI, Hypertension, Hyperlipidemia, CHF, Left Ventricular Thrombus on Coumadin who presented from home with weakness and hypotension. #Weakness/Hypotension r/o worsening anemia vs. CHF vs. infection #ESRD on HD with Hyperkalemia #Ventricular Thrombus #Anemia #Hip Hematoma w/o fracture s/p dialysis today complicated by aflutter with RVR Pt with mild pulmonary congestion may need additonal UF continue A/C as per cardiology all cultures negative thus far Trend CBC will continue AMY with HD Florencio Del Cid DO
[2018-02-16] MEDS ORDERED: SODIUM CHLORIDE 500 ML IV STA (20:19)
[2018-02-16] MEDS ORDERED: PHENYLEPHRINE HCL 10 MG/1 ML SINGLE DOSE VIAL ONE (20:24)
[2018-02-16] MEDS ORDERED: VASOPRESSIN 20 UNITS/ML VIAL IV ONE (20:28)
--- NOTE | 2018-02-16 20:32 | RAPID ---
Physical Examination Vital Signs: Vital Signs Temperature 98.5 F 02/16/18 13:00 Pulse Rate 145 H 02/16/18 16:00 Respiratory Rate 18 02/16/18 16:00 Blood Pressure 100/62 02/16/18 16:00 O2 Sat by Pulse Oximetry (%) 100 02/15/18 21:00 Labs: CBC, BMP 02/16/18 05:30 02/16/18 11:35 Rapid Response - Rapid Response Assessment: Code 99 called around 20:15. Team arrived to find pt had pulse and chest compressions had not been performed. Pt awake and responsive at this time though bradycardic. Cardizem drip discontinued. Pts blood pressure noted to be low. 500 cc bolus NS given. Will titrate vasopressin. peripherally for MAP > 65 and D/C as able. Will reevaluate after fluid bolus and vasopressin. Case discussed with cardiology who made recommendations for vasopressin as well as repeat EKG. Management as per ICU team and cardiology.
[2018-02-16] MEDS ORDERED: VASOPRESSIN 50 UNITS in SODIUM CHLORIDE 97.5 ML IVPB SCH (20:45)
--- NOTE | 2018-02-16 21:02 | CONSULT ---
Consultation: REQUESTING PROVIDER: Dr Hess PCP CONSULT REQUEST: ICU monitoring HISTORY OF PRESENT ILLNESS: The patient is a 77 y/o M with significant PMH of CAD, s/p 5 stents 08/17, diastolic CHF, HTN, hyperlipdemia, DM, CVA, LV thrombus, on Warfarin, Plavix, ESRD on HD since 12/15, GI bleed, anxiety, s/p fall 02/10 with large left hip hematoma. He was admitted to the hospital on 02/13/18 after he became unresponsive s/p renal angioplasty, also weakness, hypotension, worsening anemia. The patient is s/p unfinished dialysis earlier today complicated by aflutter with RVR, given Cardizem and started on Cardizem drip. He was admitted to ICU for further monitoring. After arrival to ICU he became hypotensive and bradycardic. Cardizem drip was stopped, bolus of 500 ml NS was administered. He was found to be in asystole on monitor, code 99 was called. After arrival to the patient he became responsive with palpable pulse, bradycardic in 30s-40s. After consultation with Dr Moreno the patient was started on Vasopressin gtt, EKG was done-no acute changes, his BP improved to 87/47, MAP 62, HR 58, Oxyg. Sat. 91 on 3L. Overnight the patient had significant BM that resulted in improvement of his BP. REVIEW OF SYSTEMS: CONSTITUTIONAL: generalized weakness, malaise, loss of appetite, Absent: fever, chills, diaphoresis, weight change HEENT: Absent: rhinorrhea, nasal congestion, throat pain, ear pain, eye pain, visual changes CARDIOVASCULAR: Absent: chest pain, syncope, palpitations, irregular heart rate, lightheadedness , peripheral edema RESPIRATORY: cough, Absent: shortness of breath, dyspnea with exertion, orthopnea, wheezing GASTROINTESTINAL: Absent: abdominal pain, abdominal distension, nausea, vomiting, diarrhea, constipation, melena GENITOURINARY: Absent: dysuria, frequency, urgency SKIN: Absent: rash, itching, pallor NEUROLOGIC: Absent: headache, focal weakness, seizure, mental status changes PHYSICAL EXAMINATION Vital Signs - 24 hr 02/15/18 02/16/18 02/16/18 22:00 00:38 00:40 Temperature 98.3 F Pulse Rate 80 78 Respiratory Rate Blood Pressure 121/61 02/16/18 02/16/18 02/16/18 01:59 05:41 09:35 Temperature 98.7 F 98.2 F 98.5 F Pulse Rate 83 84 81 Respiratory 16 20 15 Rate Blood Pressure 105/53 106/84 116/56 02/16/18 02/16/18 02/16/18 09:40 10:10 10:40 Temperature Pulse Rate 83 88 88 Respiratory 15 14 15 Rate Blood Pressure 125/66 129/65 129/64 02/16/18 02/16/18 02/16/18 11:10 11:40 12:10 Temperature Pulse Rate 90 89 90 Respiratory 15 15 19 Rate Blood Pressure 120/69 121/63 111/65 02/16/18 02/16/18 02/16/18 12:40 12:45 13:00 Temperature 98.5 F Pulse Rate 122 H 126 H 147 H Respiratory 16 16 16 Rate Blood Pressure 89/49 73/61 102/70 02/16/18 02/16/18 02/16/18 13:15 13:50 15:45 Temperature Pulse Rate 126 H 147 H 145 H Respiratory 16 Rate Blood Pressure 99/55 94/58 94/58 02/16/18 02/16/18 16:00 18:45 Temperature Pulse Rate 145 H 150 H Respiratory 18 Rate Blood Pressure 100/62 90/55 GENERAL: Awake, alert, and fully oriented, in moderate distress, somnolent. HEAD: Normal with no signs of trauma. EYES: Pupils equal, round and reactive to light, extraocular movements intact, sclera anicteric, conjunctiva clear. EARS, NOSE, THROAT: Ears normal, nares patent, oropharynx clear without exudates. Moist mucous membranes, on NC. NECK: Normal range of motion, supple without lymphadenopathy, JVD. LUNGS: Breath sounds equal, clear to auscultation bilaterally. No wheezes, and no crackles. HEART: Regular rate and rhythm, normal S1 and S2, no murmur, rub or gallop. ABDOMEN: Soft, nontender, not distended, normoactive bowel sounds, no guarding, no rebound, no masses. MUSCULOSKELETAL: Normal range of motion at all joints. No bony deformities or tenderness. UPPER EXTREMITIES: No peripheral edema, left UE- fistula, good bruit, ecchymoses. LOWER EXTREMITIES: 1+ pulses, warm, no peripheral edema, hematoma in left groin and hip. NEUROLOGICAL: Non focal, no facial asymmetry, normal speech. PSYCHIATRIC: Cooperative. Good eye contact. Appropriate mood and affect. SKIN: Warm, dry, normal turgor, no rashes. Laboratory Results - last 24 hr 02/15/18 02/16/18 02/16/18 22:02 05:30 05:30 WBC 6.7 RBC 3.35 L Hgb 9.6 L Hct 28.4 L MCV 84.7 MCH 28.6 MCHC 33.8 RDW 18.4 H Plt Count 77 L MPV 10.2 PT with INR INR PTT (Actin FS) 29.4 Sodium Potassium Chloride Carbon Dioxide Anion Gap BUN Creatinine Creat Clearance w eGFR POC Glucometer [phone] Random Glucose Calcium Phosphorus Magnesium Total Bilirubin AST ALT Alkaline Phosphatase Total Protein Albumin 02/16/18 02/16/18 02/16/18 05:34 09:45 11:35 WBC RBC Hgb Hct MCV MCH MCHC RDW Plt Count MPV PT with INR INR PTT (Actin FS) Sodium 136 Potassium 3.8 Chloride 98 Carbon Dioxide 31 Anion Gap 7 L BUN 39 H 13 D Creatinine 2.1 H 0.9 Creat Clearance w eGFR 30.70 POC Glucometer [phone] Random Glucose 247 H D Calcium 7.8 L Phosphorus 2.4 L D Magnesium Total Bilirubin 0.3 AST 14 L ALT 13 Alkaline Phosphatase 68 Total Protein 5.2 L Albumin 2.3 L 02/16/18 02/16/18 02/16/18 12:38 14:05 19:06 WBC RBC Hgb Hct MCV MCH MCHC RDW Plt Count MPV PT with INR 15.40 H INR 1.36 H PTT (Actin FS) Sodium Potassium Chloride Carbon Dioxide Anion Gap BUN Creatinine Creat Clearance w eGFR POC Glucometer [phone] > 400 Random Glucose Calcium Phosphorus Magnesium Total Bilirubin AST ALT Alkaline Phosphatase Total Protein Albumin 02/16/18 19:40 WBC RBC Hgb Hct MCV MCH MCHC RDW Plt Count MPV PT with INR INR PTT (Actin FS) Sodium Potassium Chloride Carbon Dioxide Anion Gap BUN Creatinine Creat Clearance w eGFR POC Glucometer Random Glucose Calcium Phosphorus Magnesium 1.9 Total Bilirubin AST ALT Alkaline Phosphatase Total Protein Albumin Active Medications Generic Name Dose Route Start Last Admin Trade Name Freq PRN Reason Stop Dose Admin Albuterol/Ipratropium 1 amp 02/14/18 12:11 02/15/18 16:18 Duoneb - NEB 1 amp Q6H PRN Administration SHORTNESS OF BREATH Allopurinol 300 mg 02/14/18 12:45 02/16/18 12:45 Zyloprim - PO 300 mg DAILY COREY Administration Aspirin 81 mg 02/15/18 10:00 02/16/18 09:12 Ecotrin - PO 81 mg DAILY COREY Administration Calcium Acetate 667 mg 02/14/18 17:30 02/16/18 18:20 Phoslo - PO 667 mg TIDCM COREY Administration Calcium Gluconate 1,000 mg 02/16/18 20:56 Calcium Gluconate 10% - IVPUSH 02/16/18 20:57 ONCE ONE Carvedilol 12.5 mg 02/13/18 22:00 02/16/18 12:45 Coreg - PO 12.5 mg BID COREY Administration Clopidogrel Bisulfate 75 mg 02/14/18 10:00 02/16/18 09:14 Plavix - PO 75 mg DAILY COREY Administration Escitalopram Oxalate 5 mg 02/13/18 22:00 02/15/18 21:30 Lexapro - PO 5 mg HS COREY Administration Piperacillin Sod/Tazobactam 50 mls @ 100 mls/hr 02/16/18 17:29 02/16/18 18:18 Sod 2.25 gm/ Dextrose IVPB 100 mls/hr BID COREY Administration Protocol Diltiazem HCl 125 mg/ Sodium 125 mls @ 5 mls/hr 02/16/18 18:00 02/16/18 18:45 Chloride IVPB 10 mg/hr TITR COREY 10 mls/hr Titration Protocol 5 MG/HR Sodium Chloride 250 mls @ 250 mls/hr 02/16/18 17:58 Normal Saline - IV 02/16/18 18:57 ASDIR STA Sodium Chloride 500 mls @ 500 mls/hr 02/16/18 20:19 Normal Saline - IV 02/16/18 21:18 ASDIR STA Vasopressin 50 units/ Sodium 100 mls @ 24 mls/hr 02/16/18 20:45 Chloride IVPB TITR COREY Protocol 0.2 UNITS/MIN Insulin Aspart 1 vial 02/13/18 03:42 02/16/18 20:02 Novolog Vial Sliding Scale - SQ 12 units ACHS COREY Administration Protocol Losartan Potassium 12.5 mg 02/15/18 10:00 08/20/18 12:45 Cozaar - PO Not Given BID COREY Pantoprazole Sodium 40 mg 02/14/18 10:00 02/16/18 09:15 Protonix - PO 40 mg DAILY COREY Administration Rosuvastatin Calcium 10 mg 02/13/18 22:00 02/15/18 21:33 Crestor - PO 10 mg HS COREY Administration Tamsulosin HCl 0.4 mg 02/13/18 22:00 02/15/18 21:32 Flomax - PO 0.4 mg HS COREY Administration Warfarin Sodium 5 mg 02/14/18 18:00 02/16/18 18:18 Coumadin - PO 5 mg DAILY@1800 COREY Administration ASSESSMENT/PLAN: The patient is a 77 y/o M with significant PMH of CAD, s/p 5 stents 08/17, diastolic CHF, HTN, hyperlipdemia, DM, CVA, LV thrombus, on Warfarin, Plavix, ESRD on HD since 12/15, GI bleed, anxiety, s/p fall 02/10 with large left hip hematoma, admitted for weakness, hypotension, worsening anemia, s/p unfinished dialysis earlier today complicated by aflutter with RVR, given Cardizem and started on Cardizem drip. He was admitted to ICU for further monitoring. hypotension and bradycardia rapid A.Fib with RVR s/p fall 02/10 with large left hip hematoma r/o aspiration PNA CAD, s/p 5 stents, on Warfarin, Plavix, ASA diastolic CHF HTN Hyperlipdemia DM CVA without deficits LV thrombus GI bleed anxiety Plan: hemodynamic instability probably caused by vasovagal/volume loss due to HD, Cardizem drip? stat BMP, Mg, Ca, Phos, stat EKG done given 500 ml NS bolus, will not continue with fluids continue Vasopressin for BP support, keep MAP over 65, if not improved will need Levophed hold Cardizem drip, hold oral meds for now given Calcium Gluconate 1 g IV ONCE the patient was found to have glucose over 400 on FS, his refused insulin continue Oxygen Supplementation continue abntibiotics (Zosyn) for possible aspiration pneumonia f/u labs and CXR tomorrow DVT PPX-not on heparin due to hematoma, cont Warfarin, Plavix Discussed with Dr Moreno-cardiology and Dr Darmiento-hospitalist at bedside, discussed need for central line insertion if patient remains hypotensive but she would prefer to avoid it for now. FULL CODE Dispo: We will continue to follow the patient. Thank you for this consultative opportunity. Problem List - Problems (1) CAD (coronary artery disease) Code(s): I25.10 - ATHSCL HEART DISEASE OF [place] CORONARY ARTERY W/O ANG PCTRS (2) Chronic diastolic (congestive) heart failure Code(s): I50.32 - CHRONIC DIASTOLIC (CONGESTIVE) HEART FAILURE (3) Hip hematoma, left Code(s): S70.02XA - CONTUSION OF LEFT HIP, INITIAL ENCOUNTER Qualifiers: Encounter type: subsequent encounter Qualified Code(s): S70.02XD - Contusion of left hip, subsequent encounter (4) Hypotension Code(s): I95.9 - HYPOTENSION, UNSPECIFIED (5) Weakness generalized Code(s): R53.1 - WEAKNESS (6) Anemia in CKD (chronic kidney disease) Code(s): N18.9 - CHRONIC KIDNEY DISEASE, UNSPECIFIED; D63.1 - ANEMIA IN CHRONIC KIDNEY DISEASE (7) CVA (cerebral infarction) Code(s): I63.9 - CEREBRAL INFARCTION, UNSPECIFIED Qualifiers: Cerebral infarction mechanism: unspecified mechanism Qualified Code(s): I63.9 - Cerebral infarction, unspecified (8) Diabetes mellitus Code(s): E11.9 - TYPE 2 DIABETES MELLITUS WITHOUT COMPLICATIONS Qualifiers: Diabetes mellitus type: type 2 Diabetes mellitus complication status: with ophthalmic complications Diabetes mellitus complication detail: with diabetic retinopathy (9) ESRD (end stage renal disease) on dialysis Code(s): N18.6 - END STAGE RENAL DISEASE; Z99.2 - DEPENDENCE ON RENAL DIALYSIS (10) Fall Code(s): W19.XXXA - UNSPECIFIED FALL, INITIAL ENCOUNTER Qualifiers: Encounter type: initial encounter Qualified Code(s): W19.XXXA - Unspecified fall, initial encounter (11) Fluid overload Code(s): E87.70 - FLUID OVERLOAD, UNSPECIFIED Qualifiers: Hypervolemia type: unspecified Qualified Code(s): E87.70 - Fluid overload, unspecified (12) Hyperlipidemia Code(s): E78.5 - HYPERLIPIDEMIA, UNSPECIFIED Qualifiers: Hyperlipidemia type: pure hypercholesterolemia Qualified Code(s): E78.00 - Pure hypercholesterolemia, unspecified; E78.0 - Pure hypercholesterolemia (13) LV (left ventricular) mural thrombus Code(s): WUT1640 - (14) Status post myocardial infarction Code(s): I25.2 - OLD MYOCARDIAL INFARCTION Visit type - Emergency Visit Emergency Visit: Yes ED Registration Date: 02/13/18 Care time: The patient presented to the Emergency Department on the above date and was hospitalized for further evaluation of their emergent condition. - New Patient This patient is new to me today: Yes Date on this admission: 02/17/18 - Critical Care Critical Care patient: Yes Total Critical Care Time (in minutes): 40 Critical Care Statement: The care of this patient involved high complexity decision making to prevent further life threatening deterioration of the patient 's condition and/or to evaluate & treat vital organ system(s) failure or risk of failure.
[2018-02-16] MEDS ORDERED: oxyCODONE HCL 5 MG TABLET PO ONE (21:10)
[2018-02-16] MEDS ORDERED: CALCIUM GLUCONATE 10% - 1,000 MG/10 ML VIAL IVPUSH ONE (21:15)
[2018-02-16 21:24] LABS: ANION GAP 9 (8-16); BLOOD UREA NITROGEN 24 mg/dL (7-18); CALCIUM 7.8 mg/dL (8.5-10.1); CHLORIDE 100 mmol/L (98-107); CO2 29 mmol/L (21-32); CREATININE 1.8 mg/dL (0.7-1.3); PHOSPHOROUS 2.4 mg/dL (2.5-4.9); POTASSIUM 4.4 mmol/L (3.5-5.1); SODIUM 138 mmol/L (136-145)
[2018-02-16 21:33] LABS: GLUCOSE,RANDOM 361 mg/dL (74-106)
[2018-02-16] MEDS: ROSUVASTATIN CA 10 MG TABLET (FP) PO SCH (22:00)
[2018-02-16] MEDS: TAMSULOSIN HCL 0.4 MG CAP.ER.24H (FP) PO SCH (22:00)
[2018-02-16] MEDS: ESCITALOPRAM OXALATE 10 MG TABLET (FP) PO SCH (22:04)
[2018-02-17 06:35] LABS: HEMATOCRIT 28.9 % (35.4-49); HEMOGLOBIN 9.3 GM/dL (11.7-16.9); MCH 27.7 pg (25.7-33.7); MEAN CELL VOLUME 86.8 fl (80-96); MEAN PLT VOLUME 10.2 fl (7.5-11.1); PLATELET COUNT 58 K/MM3 (134-434); RBC 3.33 M/mm3 (4.00-5.60); WHITE BLOOD COUNT 7.3 K/mm3 (4.0-10.0)
[2018-02-17 06:47] LABS: ALBUMIN 2.1 g/dl (3.4-5.0); ANION GAP 9 (8-16); BILIRUBIN,TOTAL 0.9 mg/dL (0.2-1.0); BLOOD UREA NITROGEN 40 mg/dL (7-18); CHLORIDE 100 mmol/L (98-107); CO2 27 mmol/L (21-32); CREATININE 2.6 mg/dL (0.7-1.3); MAGNESIUM 2.1 mg/dL (1.8-2.4); PHOSPHOROUS 4.6 mg/dL (2.5-4.9); POTASSIUM 5.2 mmol/L (3.5-5.1); SGPT/ALT 389 U/L (12-78); SODIUM 136 mmol/L (136-145); TOT PROT 4.8 g/dl (6.4-8.2)
[2018-02-17 07:00] LABS: ALK PHOS 135 U/L (45-117)
[2018-02-17 07:02] LABS: SGOT/AST 781 U/L (15-37)
[2018-02-17 07:20] LABS: GLUCOSE,RANDOM 515 mg/dL (74-106)
[2018-02-17] MEDS: INSULIN SLIDING SCALE (NOVOLOG) 1 VIAL SQ SCH ×3 (08:17→17:24)
[2018-02-17] MEDS: CALCIUM ACETATE 667 MG CAPSULE (FP) PO SCH ×3 (08:18→17:17)
[2018-02-17 08:20] LABS: INR 2.42 (0.83-1.09); PROTHROMBIN TIME (PATIENT) 27.3 SEC (9.7-13.0)
[2018-02-17] MEDS ORDERED: SODIUM CHLORIDE 250 ML IV PRN (08:51)
[2018-02-17] MEDS ORDERED: PIPERACILLIN/TAZOBACTAM 2.25 GM VIAL IVPB ONE (08:52)
[2018-02-17] MEDS ORDERED: DEXTROSE 5%-WATER - 50 ML IVPB ONE (08:52)
--- NOTE | 2018-02-17 09:00 | CONSULT ---
- Consultation REQUESTING PROVIDER: CONSULT REQUEST: We have been asked to surgically evaluate this patient for Left hip hematoma s/p fall. PCP:Coleman Hess HISTORY OF PRESENT ILLNESS: 77yo M s/p fall at home while on coumadin for Rt ventricle thrombus. Pt was found to have large hematoma on Left hip. No signs of fracture on x-ray. Pt denies any weakness or numbness in the Left leg or history of vascular disease. Pt currently in ICU for hypotension and hyperglycemia. PMHx: CAD, HTN, ESRD on HD, DM Home Medications Medication Instructions Recorded Clopidogrel Bisulfate [Plavix -] 75 mg PO DAILY 09/03/17 Insulin Glargine,Hum.rec.anlog 30 units SQ DAILY 09/03/17 [Lantus Solostar PEN -] Rosuvastatin [Crestor -] 10 mg PO DAILY 09/03/17 Tamsulosin HCl [Flomax -] 0.4 mg PO HS 09/03/17 Calcium Acetate [Phoslo -] 667 mg PO TIDCM 30 Days #90 capsule 09/14/17 Carvedilol [Coreg -] 12.5 mg PO BID tablet 09/14/17 hydrALAZINE HCL [Apresoline -] 25 mg PO BID tablet 09/14/17 Allopurinol [Zyloprim -] 300 mg PO DAILY 11/21/17 Aspirin [ASA -] 81 mg PO DAILY 11/21/17 Isosorbide Dinitrate [Isordil -] 20 mg PO BID 11/21/17 Warfarin Sodium [Coumadin] 4 mg PO ASDIR 11/21/17 Warfarin Sodium [Coumadin] 5 mg PO ASDIR 11/21/17 Escitalopram Oxalate [Lexapro -] 5 mg PO HS #30 tablet 12/09/17 Insulin Sliding Scale [Novolog 1 vial SQ HS units 12/09/17 Vial Sliding Scale -] Insulin Sliding Scale [Novolog 1 vial SQ TIDCM units 12/09/17 Vial Sliding Scale -] Torsemide [Demadex -] 100 mg PO DAILY #30 tablet 12/09/17 Enoxaparin Sodium [Lovenox] 150 mg SCJ BID 02/11/18 Allergies Allergy/AdvReac Type Severity Reaction Status Date / Time No Known Allergies Allergy Verified 02/12/18 21:17 REVIEW OF SYSTEMS: CONSTITUTIONAL: Absent: fever, chills, diaphoresis, generalized weakness, malaise, loss of appetite, weight change CARDIOVASCULAR: Absent: chest pain, syncope, palpitations, irregular heart rate, lightheadedness , peripheral edema RESPIRATORY: Absent: cough, shortness of breath, dyspnea with exertion, wheezing, stridor, hemoptysis GASTROINTESTINAL: Absent: abdominal pain, abdominal distension, nausea, vomiting, diarrhea, constipation, melena, hematochezia GENITOURINARY: Absent: dysuria, frequency, urgency, hesitancy, hematuria, flank pain, genital pain MUSCULOSKELETAL: Absent: myalgia, arthralgia, joint swelling, back pain, neck pain SKIN: Absent: rash, itching, pallor HEMATOLOGIC/IMMUNOLOGIC: Absent: easy bleeding, easy bruising, lymphadenopathy NEUROLOGIC: Absent: headache, focal weakness, paresthesias, dizziness, unsteady gait, seizure, mental status changes, bladder or bowel incontinence PSYCHIATRIC: Absent: anxiety, depression, suicidal or homicidal ideation, hallucinations. PHYSICAL EXAM: GENERAL: Awake, alert, and fully oriented, in no acute distress. HEAD: Normal with no signs of trauma. EYES: PERRL, sclera anicteric, conjunctiva clear. NECK: Normal ROM, supple without lymphadenopathy, JVD, or masses. LUNGS: Clear to auscultation bilat anteriorly. No wheezes, and no crackles. No accessory muscle use. HEART: Regular rate and rhythm. No murmurs MUSCULOSKELETAL: Normal ROM at all joints. No bony deformities or tenderness. No CVA tenderness. LOWER EXTREMITIES: Large Left hip hematoma, PT pulse dopplerable, warm, well- perfused. No calf tenderness. No peripheral edema. no weakness or numbness in Left leg NEUROLOGICAL: Normal speech, gait not observed. PSYCH: Cooperative. Good eye contact. Appropriate mood and affect. SKIN: Warm, dry, normal turgor, no rashes or lesions noted. Vital Signs Temperature 98.2 F 02/17/18 08:00 Pulse Rate 75 02/17/18 08:00 Respiratory Rate 21 02/17/18 08:00 Blood Pressure 111/59 02/17/18 08:00 O2 Sat by Pulse Oximetry (%) 100 02/17/18 08:00 Lab Results WBC 7.3 K/mm3 (4.0-10.0) 02/17/18 05:30 RBC 3.33 M/mm3 (4.00-5.60) L 02/17/18 05:30 Hgb 9.3 GM/dL (11.7-16.9) L 02/17/18 05:30 Hct 28.9 % (35.4-49) L 02/17/18 05:30 MCV 86.8 fl (80-96) 02/17/18 05:30 MCHC 32.0 g/dl (32.0-35.9) 02/17/18 05:30 RDW 19.0 % (11.9-15.9) H 02/17/18 05:30 Plt Count 58 K/MM3 (134-434) L D 02/17/18 05:30 Sodium 136 mmol/L (136-145) 02/17/18 05:30 Potassium 5.2 mmol/L (3.5-5.1) H 02/17/18 05:30 Chloride 100 mmol/L (98-107) 02/17/18 05:30 Carbon Dioxide 27 mmol/L (21-32) 02/17/18 05:30 Anion Gap 9 (8-16) 02/17/18 05:30 BUN 40 mg/dL (7-18) H 02/17/18 05:30 Creatinine 2.6 mg/dL (0.7-1.3) H 02/17/18 05:30 Random Glucose 515 mg/dL (74-106) H* D 02/17/18 05:30 Calcium 8.0 mg/dL (8.5-10.1) L 02/17/18 05:30 Blood Type A POSITIVE 02/13/18 19:30 Antibody Screen Negative 02/13/18 19:30 INR 2.42 (0.83-1.09) H 02/17/18 05:30 Problem List - Problems (1) Hip hematoma, left Assessment/Plan: Plan -Left leg neurovascular intact no need for hematoma evacuation at this time. -continue warm compresses on hematoma, explained to pt that hematoma will eventually reabsorb but could take months. -please contact Vascular team if any neurovascular changes in leg. Case discussed with Dr. Huff who approved with plan Code(s): S70.02XA - CONTUSION OF LEFT HIP, INITIAL ENCOUNTER Qualifiers: Encounter type: subsequent encounter Qualified Code(s): S70.02XD - Contusion of left hip, subsequent encounter
[2018-02-17] MEDS: ASPIRIN COATED 81 MG TABLET.EC PO SCH (09:03)
[2018-02-17] MEDS: CARVEDILOL 12.5 MG TABLET (FP) PO SCH ×2 (09:03→22:31)
[2018-02-17] MEDS: LOSARTAN POTASSIUM 25 MG TABLET PO SCH ×2 (09:03→22:31)
[2018-02-17] MEDS: PIPERACILLIN/TAZOB 2.25 GM 2.25 GM in DEXTROSE 5%-WATER - 50 ML IVPB SCH ×2 (09:03→23:25)
[2018-02-17] MEDS: CLOPIDOGREL BISULFATE 75 MG TABLET (FP) PO SCH (09:04)
[2018-02-17] MEDS: PANTOPRAZOLE 40 MG TABLET (FP) PO SCH (09:04)
[2018-02-17] MEDS: ALBUTEROL SO4 2.5/IPRATROPIUM 0.5 INH SOL 3 ML VIAL.NEB. NEB PRN ×2 (09:13→12:33)
--- NOTE | 2018-02-17 09:50 | PN ---
Progress Note, Physician Chief Complaint: Pt alert and oriented x 3; feels markedly better than yesterday; denies chest pian, no abdominal pain (since disimpaction last night); no palpitations or dizziness.Moves all extremities on request. History of Present Illness: Patient is a 77 year old male (bMeredith Kingsley), with PMHx of CVA, CAD (PR--> [address] [facility] 08/17, with subsequent renal failure and ventricular thrombus; currently on ASA, clopidogrel, and warfarin), ESRD ( hemodialysis since 11/2017), diastolic CHF, HTN, HLD, s/p GI Bleed, Anxiety, Diabetes Mellitus, who presents with generalized weakness and low blood pressure. The patients (Dr. Davila) states that this afternoon he vomited and noted that his blood pressure was relatively low and he was feeling weak. She brought him to [facility] ER where he has history. He receives dialysis every Friday, , and Friday, but did not go today. Earlier in the day, prior to planned hemodialysis, he underwent renal angioplasty by the vascular surgeon (Dr. Huff) and was NPO. Surgical Hx: December 05 2017 - Renal angioplasty. 02/12/18 - Left AVF with stenosis. PR (Jul, 2017) with multiple stent placements simultaenously. PCP: Coleman Hess - Current Medication List Current Medications: Active Medications Albuterol/Ipratropium (Duoneb -) 1 amp NEB Q6H PRN PRN Reason: SHORTNESS OF BREATH Last Admin: 02/17/18 09:13 Dose: 1 amp Allopurinol (Zyloprim -) 300 mg PO DAILY [facility] Last Admin: 02/16/18 12:45 Dose: 300 mg Aspirin (Ecotrin -) 81 mg PO DAILY [facility] Last Admin: 02/17/18 09:03 Dose: 81 mg Calcium Acetate (Phoslo -) 667 mg PO TIDCM [facility] Last Admin: 02/17/18 08:18 Dose: 667 mg Carvedilol (Coreg -) 12.5 mg PO BID [facility] Last Admin: 02/17/18 09:03 Dose: Not Given Clopidogrel Bisulfate (Plavix -) 75 mg PO DAILY [facility] Last Admin: 02/17/18 09:04 Dose: 75 mg Escitalopram Oxalate (Lexapro -) 5 mg PO HS [facility] Last Admin: 02/16/18 22:04 Dose: Not Given Piperacillin Sod/Tazobactam (Sod 2.25 gm/ Dextrose) 50 mls @ 100 mls/hr IVPB BID [facility]; Protocol Last Admin: 02/17/18 09:03 Dose: 100 mls/hr Diltiazem HCl 125 mg/ Sodium (Chloride) 125 mls @ 5 mls/hr IVPB TITR [facility]; Protocol Last Titration: 02/16/18 18:45 Dose: 10 mg/hr, 10 mls/hr Vasopressin 50 units/ Sodium (Chloride) 100 mls @ 24 mls/hr IVPB TITR [facility]; Protocol Last Titration: 02/16/18 20:05 Dose: 0.1 units/min, 12 mls/hr Insulin Aspart (Novolog Vial Sliding Scale -) 1 vial SQ ACHS [facility]; Protocol Last Admin: 02/17/18 08:17 Dose: 12 units Losartan Potassium (Cozaar -) 12.5 mg PO BID [facility] Last Admin: 02/17/18 09:03 Dose: Not Given Pantoprazole Sodium (Protonix -) 40 mg PO DAILY [facility] Last Admin: 02/17/18 09:04 Dose: 40 mg Rosuvastatin Calcium (Crestor -) 10 mg PO [facility] Last Admin: 02/16/18 22:00 Dose: Not Given Tamsulosin HCl (Flomax -) 0.4 mg PO [facility] Last Admin: 02/16/18 22:00 Dose: Not Given Warfarin Sodium (Coumadin -) 5 mg PO DAILY@1800 [facility] Last Admin: 02/16/18 18:18 Dose: 5 mg - Objective Vital Signs: Vital Signs Temperature 98.2 F 02/17/18 08:00 Pulse Rate 75 02/17/18 08:00 Respiratory Rate 21 02/17/18 08:00 Blood Pressure 111/59 02/17/18 08:00 O2 Sat by Pulse Oximetry (%) 100 02/17/18 08:00 Constitutional: Yes: Calm Eyes: Yes: WNL HENT: Yes: WNL Neck: Yes: WNL Cardiovascular: Yes: Pulse Irregular, S1 (varies in intensity) Respiratory: Yes: Regular Gastrointestinal: Yes: Soft ...Rectal Exam: Yes: Deferred Genitourinary: No: Anuria Musculoskeletal: Yes: Muscle Weakness Edema: No Peripheral Pulses WNL: Yes Integumentary: Yes: WNL Neurological: Yes: Alert, Oriented, Weakness Psychiatric: Yes: Other (anxiety/depression) Labs: CBC, BMP 02/17/18 05:30 02/17/18 05:30 INR, PTT INR 2.42 (0.83-1.09) H 02/17/18 05:30 Abnormal Lab Results 02/13/18 02/16/18 02/16/18 18:45 09:45 14:05 RBC Hgb Hct RDW Plt Count PT with INR 15.40 H INR 1.36 H PTT (Actin FS) Potassium Anion Gap 7 L BUN 39 H Creatinine 2.1 H Random Glucose 247 H D Calcium 7.8 L Phosphorus 2.4 L D AST 14 L ALT Alkaline Phosphatase Creatine Kinase Troponin I Total Protein 5.2 L Albumin 2.3 L TSH Crossmatch See Detail 02/16/18 02/17/18 02/17/18 19:40 05:30 05:30 RBC 3.33 L Hgb 9.3 L Hct 28.9 L RDW 19.0 H Plt Count 58 L D PT with INR INR PTT (Actin FS) 37.9 H Potassium Anion Gap BUN 24 H Creatinine 1.8 H Random Glucose 361 H* D Calcium 7.8 L Phosphorus 2.4 L AST ALT Alkaline Phosphatase Creatine Kinase Troponin I Total Protein Albumin TSH Crossmatch 02/17/18 02/17/18 05:30 05:30 RBC Hgb Hct RDW Plt Count PT with INR 27.30 H INR 2.42 H PTT (Actin FS) Potassium 5.2 H Anion Gap BUN 40 H Creatinine 2.6 H Random Glucose 515 H* D Calcium 8.0 L Phosphorus AST 781 H D ALT 389 H D Alkaline Phosphatase 135 H D Creatine Kinase 38 L Troponin I 0.06 H D Total Protein 4.8 L Albumin 2.1 L TSH 6.01 H D Crossmatch - ....Imaging Chest X-ray: Image Reviewed EKG: Image Reviewed Problem List - Problems (1) Weakness generalized Code(s): R53.1 - WEAKNESS (2) AV fistula Assessment/Plan: left AV fistula. For suture removal and decision on when to begin using\\ for hemodialysis. Code(s): I77.0 - ARTERIOVENOUS FISTULA, ACQUIRED (3) Anxiety and depression Assessment/Plan: on Lexapro. Code(s): F41.8 - OTHER SPECIFIED ANXIETY DISORDERS (4) BPH (benign prostatic hypertrophy) Code(s): N40.0 - BENIGN PROSTATIC HYPERPLASIA WITHOUT LOWER URINRY TRACT SYMP (5) CVA (cerebral infarction) Assessment/Plan: Od laconar infarcts in right occiput, cerebelloum on 11/14 CT. On ASA and clopidogrel for recent PR-->several DE stents, and wafrarin (LV thrombu; PAF). High-dose statin to keep LDL as low as possible. Physical rehabilitation. Code(s): I63.9 - CEREBRAL INFARCTION, UNSPECIFIED Qualifiers: Cerebral infarction mechanism: unspecified mechanism Qualified Code(s): I63.9 - Cerebral infarction, unspecified (6) Diabetes mellitus Code(s): E11.9 - TYPE 2 DIABETES MELLITUS WITHOUT COMPLICATIONS Qualifiers: Diabetes mellitus type: type 2 Diabetes mellitus complication status: with ophthalmic complications Diabetes mellitus complication detail: with diabetic retinopathy (7) Fall Code(s): W19.XXXA - UNSPECIFIED FALL, INITIAL ENCOUNTER Qualifiers: Encounter type: initial encounter Qualified Code(s): W19.XXXA - Unspecified fall, initial encounter (8) Hx of heart artery stent Assessment/Plan: Hx PR-->multiple stents. On ASA and clopidogrel (as well as warfarin for ventricular thrombus). On carvedilol. Code(s): Z95.5 - PRESENCE OF CORONARY ANGIOPLASTY IMPLANT AND GRAFT (9) Hyperlipidemia Assessment/Plan: statin; keep LDL well below 70 mg/dL. Code(s): E78.5 - HYPERLIPIDEMIA, UNSPECIFIED Qualifiers: Hyperlipidemia type: pure hypercholesterolemia Qualified Code(s): E78.00 - Pure hypercholesterolemia, unspecified; E78.0 - Pure hypercholesterolemia (10) LV (left ventricular) mural thrombus Assessment/Plan: restart warfarin; IV heparin until INR 2-3. Code(s): DFQ3290 - (11) Hypotension Assessment/Plan: See under "atrial flutter". Code(s): I95.9 - HYPOTENSION, UNSPECIFIED (12) Chronic diastolic (congestive) heart failure Assessment/Plan: ECHO this admission: preserved LVEF, with regional wall abnormalities (apical, inferior); borderline dilated LV; cannot exclude LV apical thrombus. On carvedilol; hydralazine held until low BP has improved. For midadrine. Code(s): I50.32 - CHRONIC DIASTOLIC (CONGESTIVE) HEART FAILURE (13) Atrial flutter Assessment/Plan: Hemodialysis had to be stopped early yesterday when pt developed atrial flutter with 2:1 AV block and VR prodominately in the 140s bpm. Pt was given usual carvedilol 12.5 mg earlier; responded to 250 ml 0.9% NS bolus and metoprolol IVP 2.5 mg by transient lowering of HR to 120s bpm. Plan:Responsed well transiently to diltiazem 10 mg IVP: HR in 80s, still in Atrial flutter with 3:1 AV block; after 15 minutes, HR returned to 149 bpm. Started IV diltiazem drip; after 2nd 10 mg bolus, HR again reverted to 80s bpm. BP 90/62 mmHg. Shortly after starting the latter, pt developed a four-second sinus pause; it is unclear if he truly lost consciousness, but he quickly was noted to be alert and oriented. He was given fluids, and placed on vasopressin to increase BP. He was in sinus bradycardia overnight; He had not had a bowel movement for several days, and was in pain from this. After disimpaction of a large amount of stool, he felt much better. Straining may have contributed to the long sinus pause through vagal stimulation. f/u EKG, telemetry. Carvedilol and IV diltiazem held due to bradycardia and while on vasopression., Code(s): I48.92 - UNSPECIFIED ATRIAL FLUTTER
[2018-02-17] MEDS: ALLOPURINOL 300 MG TABLET (FP) PO SCH (10:55)
--- NOTE | 2018-02-17 11:06 | PN ---
Teaching Attending Note Name of Resident: Nura Garrison ATTENDING PHYSICIAN STATEMENT I saw and evaluated the patient. I reviewed the resident's note and discussed the case with the resident. I agree with the resident's findings and plan as documented. SUBJECTIVE: Pt seen and examined in the ICU. Episode of syncope associated with 4 second pause. Currently back in sinus rhythm. Denies shortness of breath or chest pain. +nonproductive cough. OBJECTIVE: Vital Signs Period Temp Pulse Resp BP Sys/Simons Pulse Ox Last 24 Hr 98 F-98.6 F 52-150 15-24 71-121/40-84 100-100 Intake & Output 02/14/18 02/15/18 02/16/18 02/17/18 23:59 23:59 23:59 23:59 Intake Total 896 1024 20 554 Output Total 0 0 Balance 896 1024 20 554 Weight 67.132 kg 67.33 kg 67.16 kg 66.82 kg Gen: NAD at rest Heart: RRR Lung: basilar rales Abd: soft, nontender Ext: no edema CBC, BMP 02/17/18 05:30 02/17/18 05:30 Active Medications Albuterol/Ipratropium (Duoneb -) 1 amp NEB Q6H PRN PRN Reason: SHORTNESS OF BREATH Last Admin: 02/17/18 09:13 Dose: 1 amp Allopurinol (Zyloprim -) 300 mg PO DAILY [facility] Last Admin: 02/17/18 10:55 Dose: 300 mg Aspirin (Ecotrin -) 81 mg PO DAILY [facility] Last Admin: 02/17/18 09:03 Dose: 81 mg Calcium Acetate (Phoslo -) 667 mg PO TIDCM [facility] Last Admin: 02/17/18 08:18 Dose: 667 mg Carvedilol (Coreg -) 12.5 mg PO BID [facility] Last Admin: 02/17/18 09:03 Dose: Not Given Clopidogrel Bisulfate (Plavix -) 75 mg PO DAILY [facility] Last Admin: 02/17/18 09:04 Dose: 75 mg Escitalopram Oxalate (Lexapro -) 5 mg PO HS [facility] Last Admin: 02/16/18 22:04 Dose: Not Given Piperacillin Sod/Tazobactam (Sod 2.25 gm/ Dextrose) 50 mls @ 100 mls/hr IVPB BID [facility]; Protocol Last Admin: 02/17/18 09:03 Dose: 100 mls/hr Diltiazem HCl 125 mg/ Sodium (Chloride) 125 mls @ 5 mls/hr IVPB TITR [facility]; Protocol Last Titration: 02/16/18 18:45 Dose: 10 mg/hr, 10 mls/hr Vasopressin 50 units/ Sodium (Chloride) 100 mls @ 24 mls/hr IVPB TITR [facility]; Protocol Last Titration: 02/16/18 20:05 Dose: 0.1 units/min, 12 mls/hr Insulin Aspart (Novolog Vial Sliding Scale -) 1 vial SQ ACHS [facility]; Protocol Last Admin: 02/17/18 08:17 Dose: 12 units Losartan Potassium (Cozaar -) 12.5 mg PO BID [facility] Last Admin: 02/17/18 09:03 Dose: Not Given Pantoprazole Sodium (Protonix -) 40 mg PO DAILY [facility] Last Admin: 02/17/18 09:04 Dose: 40 mg Rosuvastatin Calcium (Crestor -) 10 mg PO HS [facility] Last Admin: 02/16/18 22:00 Dose: Not Given Tamsulosin HCl (Flomax -) 0.4 mg PO HS [facility] Last Admin: 02/16/18 22:00 Dose: Not Given Warfarin Sodium (Coumadin -) 5 mg PO DAILY@1800 [facility] Last Admin: 02/16/18 18:18 Dose: 5 mg ASSESSMENT AND PLAN: Syncope Paroxysmal Atrial Fibrillation with RVR now in sinus rhythm CAD LV Diastolic Dysfunction HTN Hyperlipidemia DM LV thrombus h/o CVA ESRD on HD - holding AV gabe agents, will need to reintroduce beta pradeep if no further pauses - continue anticoagulation - check CXR - HD per renal - cough suppressants - glucose control - taper off vasopressin gtt - o2 to keep Spo2 >90% - continue ICU monitoring for now
[2018-02-17] MEDS ORDERED: FUROSEMIDE 100 MG/10 ML INJECTABLE VIAL IVPB ONE (11:39)
[2018-02-17] MEDS ORDERED: INSULIN (NOVOLOG) ASPART 100 UNITS/ML 10ML VIAL SQ ONE ×3 (11:46→22:45)
--- NOTE | 2018-02-17 12:18 | PN ---
Progress Note (short form) - Note Progress Note: Renal follow up for ESRD on HD Pt seen and examined in the ICU awake and alert complains of cough, no sob overnight events reviewed BP remains marginal denies any cp, abd pain, fever, chills Vital Signs Temperature 98.5 F 02/17/18 12:00 Pulse Rate 74 02/17/18 12:00 Respiratory Rate 16 02/17/18 12:00 Blood Pressure 104/54 02/17/18 12:00 O2 Sat by Pulse Oximetry (%) 100 02/17/18 08:00 Intake & Output 02/14/18 02/15/18 02/16/18 02/17/18 23:59 23:59 23:59 23:59 Intake Total 896 1024 20 554 Output Total 0 0 Balance 896 1024 20 554 Weight 67.132 kg 67.33 kg 67.16 kg 66.82 kg NAD awake and alert RRR, No M/R CTA no rales or wheeze soft NT/ND Left hip hematoma no clubbing or cyanosis CBC, BMP 02/17/18 05:30 02/17/18 11:05 Current Medications Albuterol/Ipratropium (Duoneb -) 1 amp NEB Q6H PRN PRN Reason: SHORTNESS OF BREATH Last Admin: 02/17/18 09:13 Dose: 1 amp Allopurinol (Zyloprim -) 300 mg PO DAILY [facility] Last Admin: 02/17/18 10:55 Dose: 300 mg Aspirin (Ecotrin -) 81 mg PO DAILY [facility] Last Admin: 02/17/18 09:03 Dose: 81 mg Calcium Acetate (Phoslo -) 667 mg PO TIDCM [facility] Last Admin: 02/17/18 12:02 Dose: 667 mg Carvedilol (Coreg -) 12.5 mg PO BID [facility] Last Admin: 02/17/18 09:03 Dose: Not Given Clopidogrel Bisulfate (Plavix -) 75 mg PO DAILY [facility] Last Admin: 02/17/18 09:04 Dose: 75 mg Escitalopram Oxalate (Lexapro -) 5 mg PO HS [facility] Last Admin: 02/16/18 22:04 Dose: Not Given Piperacillin Sod/Tazobactam (Sod 2.25 gm/ Dextrose) 50 mls @ 100 mls/hr IVPB BID [facility]; Protocol Last Admin: 02/17/18 09:03 Dose: 100 mls/hr Diltiazem HCl 125 mg/ Sodium (Chloride) 125 mls @ 5 mls/hr IVPB TITR [facility]; Protocol Last Titration: 02/16/18 18:45 Dose: 10 mg/hr, 10 mls/hr Vasopressin 50 units/ Sodium (Chloride) 100 mls @ 24 mls/hr IVPB TITR [facility]; Protocol Last Titration: 02/16/18 20:05 Dose: 0.1 units/min, 12 mls/hr Insulin Aspart (Novolog Vial Sliding Scale -) 1 vial SQ ACHS [facility]; Protocol Last Admin: 02/17/18 11:55 Dose: Not Given Losartan Potassium (Cozaar -) 12.5 mg PO BID [facility] Last Admin: 02/17/18 09:03 Dose: Not Given Midodrine (Proamatine -) 5 mg PO BID-MID [facility] Pantoprazole Sodium (Protonix -) 40 mg PO DAILY [facility] Last Admin: 02/17/18 09:04 Dose: 40 mg Rosuvastatin Calcium (Crestor -) 10 mg PO HS [facility] Last Admin: 02/16/18 22:00 Dose: Not Given Tamsulosin HCl (Flomax -) 0.4 mg PO HS [facility] Last Admin: 02/16/18 22:00 Dose: Not Given Warfarin Sodium (Coumadin -) 5 mg PO DAILY@1800 [facility] Last Admin: 02/16/18 18:18 Dose: 5 mg 77 year old gentleman with Hx of ESRD on HD (started this year), CAD s/p PCI, Hypertension, Hyperlipidemia, CHF, Left Ventricular Thrombus on Coumadin who presented from home with weakness and hypotension. #Weakness/Hypotension r/o worsening anemia vs. CHF vs. infection #ESRD on HD with Hyperkalemia #Ventricular Thrombus #Anemia #Hip Hematoma w/o fracture #New Aflutter with RVR will defer UF today given marginal BP trial of Lasix diuresis today start Midodrine BID for BP support hold antihypertensives will plan for HD/UF tomorrow A/c as per cardiology, rate control as per cardiology trend H/H, transfuse for Hgb < 8 all cultures remain negative thus far prognosis is guarded Florencio Del Cid DO
[2018-02-17] MEDS ORDERED: PT OWN MED DRAWER 7, Y5N ONE ×3 (12:26→22:27)
[2018-02-17] MEDS: MIDODRINE HCL 5 MG TABLET PO SCH ×2 (12:29→17:17)
--- NOTE | 2018-02-17 12:39 | PN ---
Progress Note (short form) - Note Progress Note: events noted-syncopal event overnight not tachycardic today more alert nonproductive cough Vital Signs Period Temp Pulse Resp BP Sys/Simons Pulse Ox Last 24 Hr 98 F-98.6 F 52-150 16-24 71-116/40-84 100-100 cor-rrr lungs decreased bs at bases abd soft,nt ext no edema CBC, BMP 02/17/18 05:30 02/17/18 11:05 Microbiology 02/12/18 23:40 Blood - Peripheral Venous Blood Culture - Preliminary NO GROWTH OBTAINED AFTER 96 HOURS, INCUBATION TO CONTINUE FOR 1 DAYS. 02/15/18 16:50 Blood - Peripheral Venous Blood Culture - Preliminary NO GROWTH OBTAINED AFTER 24 HOURS, INCUBATION TO CONTINUE FOR 4 DAYS. 02/15/18 16:50 Blood - Peripheral Venous Blood Culture - Preliminary NO GROWTH OBTAINED AFTER 24 HOURS, INCUBATION TO CONTINUE FOR 4 DAYS. cxray-congestion, increased marking right base a/p rapid afib esrd/hd ?aspiration pneumonia versus volume overload diabetes CAD hematoma to continue zosyn for now day #1 Problem List - Problems (1) Fluid overload Code(s): E87.70 - FLUID OVERLOAD, UNSPECIFIED Qualifiers: Hypervolemia type: unspecified Qualified Code(s): E87.70 - Fluid overload, unspecified (2) Anemia Code(s): D64.9 - ANEMIA, UNSPECIFIED (3) Hip hematoma, left Code(s): S70.02XA - CONTUSION OF LEFT HIP, INITIAL ENCOUNTER Qualifiers: Encounter type: subsequent encounter Qualified Code(s): S70.02XD - Contusion of left hip, subsequent encounter (4) ESRD (end stage renal disease) on dialysis Code(s): N18.6 - END STAGE RENAL DISEASE; Z99.2 - DEPENDENCE ON RENAL DIALYSIS (5) CVA (cerebral infarction) Code(s): I63.9 - CEREBRAL INFARCTION, UNSPECIFIED Qualifiers: Cerebral infarction mechanism: unspecified mechanism Qualified Code(s): I63.9 - Cerebral infarction, unspecified (6) Diabetes mellitus Code(s): E11.9 - TYPE 2 DIABETES MELLITUS WITHOUT COMPLICATIONS Qualifiers: Diabetes mellitus type: type 2 Diabetes mellitus complication status: with ophthalmic complications Diabetes mellitus complication detail: with diabetic retinopathy (7) CAD (coronary artery disease) Code(s): I25.10 - ATHSCL HEART DISEASE OF [place] CORONARY ARTERY W/O ANG PCTRS
--- NOTE | 2018-02-17 13:08 | EKG ---
Test Reason : Blood Pressure : / mmHG Vent. Rate : 075 BPM Atrial Rate : 075 BPM P-R Int : 190 ms QRS Dur : 088 ms QT Int : 412 ms P-R-T Axes : 028 -60 104 degrees QTc Int : 460 ms SINUS RHYTHM WITH PREMATURE ATRIAL COMPLEXES WITH ABERRANT CONDUCTION LEFT AXIS DEVIATION LEFT VENTRICULAR HYPERTROPHY WITH REPOLARIZATION ABNORMALITY INFERIOR INFARCT (CITED ON OR BEFORE 09-APR-2016) ANTEROLATERAL INFARCT (CITED ON OR BEFORE 02-JAN-2015) ABNORMAL ECG Confirmed by Leroy Ham MD ([id number]) on 02/17/2018 1:08:19 PM Referred By: NAFISA IBRAHIM Confirmed By:Leroy Ham MD
--- NOTE | 2018-02-17 13:12 | EKG ---
Test Reason : Blood Pressure : / mmHG Vent. Rate : 054 BPM Atrial Rate : 054 BPM P-R Int : 152 ms QRS Dur : 098 ms QT Int : 450 ms P-R-T Axes : 042 -61 120 degrees QTc Int : 426 ms SINUS BRADYCARDIA LEFT AXIS DEVIATION INCOMPLETE RIGHT BUNDLE BRANCH BLOCK LEFT VENTRICULAR HYPERTROPHY WITH REPOLARIZATION ABNORMALITY CANNOT RULE OUT SEPTAL INFARCT (CITED ON OR BEFORE 02-JAN-2015) POSSIBLE LATERAL INFARCT (CITED ON OR BEFORE 02-JAN-2015) INFERIOR INFARCT (CITED ON OR BEFORE 09-APR-2016) ABNORMAL ECG Confirmed by Leroy Ham MD ([id number]) on 02/17/2018 1:12:12 PM Referred By: SERGIO Confirmed By:Leroy Ham MD
--- NOTE | 2018-02-17 14:01 | PN ---
Physical Exam: SUBJECTIVE: Patient seen and examined this am in icu. Pt resting in bed, denies any cp or sob at this moment. Pt was asystole for 4 seconds overnight. Code 99 called, no chest compressions performed. OBJECTIVE: Vital Signs Period Temp Pulse Resp BP Sys/Simons Pulse Ox Last 24 Hr 98 F-98.6 F 52-150 16-24 71-116/40-84 100-100 GENERAL: Weak, NAD. HEAD: NC/AT EYES: EOMI. ENT:MMM NECK: No JVD. LUNGS: Breath sounds equal, clear to auscultation bilaterally, no wheezes, no crackles, no accessory muscle use. HEART: Regular rate and rhythm, S1, S2 without murmur, rub or gallop. ABDOMEN: Soft, nontender, nondistended, normoactive bowel sounds, no guarding, no rebound, no hepatosplenomegaly, no masses. EXTREMITIES: 2+ pulses, warm, well-perfused, no edema. NEUROLOGICAL: Cranial nerves II through XII grossly intact. Normal speech, gait not observed. PSYCH: Normal mood, normal affect. SKIN: Warm, dry, normal turgor, no rashes or lesions noted Laboratory Results - last 24 hr 02/13/18 02/13/18 02/16/18 15:00 18:45 11:35 WBC RBC Hgb Hct MCV MCH MCHC RDW Plt Count MPV PT with INR INR PTT (Actin FS) Sodium Potassium Chloride Carbon Dioxide Anion Gap BUN 13 D Creatinine 0.9 Creat Clearance w eGFR POC Glucometer Random Glucose Calcium Phosphorus Magnesium Total Bilirubin AST ALT Alkaline Phosphatase Creatine Kinase Troponin I Total Protein Albumin TSH Hepatitis C RNA No Result Required. HCV RNA PCR w/Genot Rflx No Result Required. Blood Type A POSITIVE Antibody Screen Negative Crossmatch See Detail 02/16/18 02/16/18 02/16/18 14:05 19:06 19:40 WBC RBC Hgb Hct MCV MCH MCHC RDW Plt Count MPV PT with INR 15.40 H INR 1.36 H PTT (Actin FS) Sodium Potassium Chloride Carbon Dioxide Anion Gap BUN Creatinine Creat Clearance w eGFR POC Glucometer > 400 Random Glucose Calcium Phosphorus Magnesium 1.9 Total Bilirubin AST ALT Alkaline Phosphatase Creatine Kinase Troponin I Total Protein Albumin TSH Hepatitis C RNA HCV RNA PCR w/Genot Rflx Blood Type Antibody Screen Crossmatch 0802/17/18 02/17/18 19:40 05:30 05:30 WBC 7.3 RBC 3.33 L Hgb 9.3 L Hct 28.9 L MCV 86.8 MCH 27.7 MCHC 32.0 RDW 19.0 H Plt Count 58 L D MPV 10.2 PT with INR INR PTT (Actin FS) 37.9 H Sodium 138 Potassium 4.4 Chloride 100 Carbon Dioxide 29 Anion Gap 9 BUN 24 H Creatinine 1.8 H Creat Clearance w eGFR 36.67 POC Glucometer Random Glucose 361 H* D Calcium 7.8 L Phosphorus 2.4 L Magnesium Cancelled Total Bilirubin AST ALT Alkaline Phosphatase Creatine Kinase Troponin I Total Protein Albumin TSH Hepatitis C RNA HCV RNA PCR w/Genot Rflx Blood Type Antibody Screen Crossmatch 02/17/18 02/17/18 02/17/18 05:30 05:30 11:05 WBC RBC Hgb Hct MCV MCH MCHC RDW Plt Count MPV PT with INR 27.30 H INR 2.42 H PTT (Actin FS) Sodium 136 Potassium 5.2 H Chloride 100 Carbon Dioxide 27 Anion Gap 9 BUN 40 H Creatinine 2.6 H Creat Clearance w eGFR 23.99 POC Glucometer Random Glucose 515 H* D 547 H* Calcium 8.0 L Phosphorus 4.6 D Magnesium 2.1 Total Bilirubin 0.9 AST 781 H D ALT 389 H D Alkaline Phosphatase 135 H D Creatine Kinase 38 L Troponin I 0.06 H D Total Protein 4.8 L Albumin 2.1 L TSH 6.01 H D Hepatitis C RNA HCV RNA PCR w/Genot Rflx Blood Type Antibody Screen Crossmatch Active Medications Generic Name Dose Route Start Last Admin Trade Name Freq PRN Reason Stop Dose Admin Albumin Human 12.5 gm 02/18/18 06:00 Albumin Human 25% IVPB 02/18/18 07:31 Q30M COREY Albuterol/Ipratropium 1 amp 02/14/18 12:11 02/17/18 12:33 Duoneb - NEB 1 amp Q6H PRN Administration SHORTNESS OF BREATH Allopurinol 300 mg 02/14/18 12:45 02/17/18 10:55 Zyloprim - PO 300 mg DAILY COREY Administration Aspirin 81 mg 02/15/18 10:00 02/17/18 09:03 Ecotrin - PO 81 mg DAILY COREY Administration Calcium Acetate 667 mg 02/14/18 17:30 02/17/18 12:02 Phoslo - PO 667 mg TIDCM COREY Administration Carvedilol 12.5 mg 02/13/18 22:00 02/17/18 09:03 Coreg - PO Not Given BID COREY Clopidogrel Bisulfate 75 mg 02/14/18 10:00 02/17/18 09:04 Plavix - PO 75 mg DAILY COREY Administration Epoetin Fahad 20,000 unit 02/18/18 08:00 Procrit - IVPUSH 02/18/18 08:01 ONCE ONE Escitalopram Oxalate 5 mg 02/13/18 22:00 02/16/18 22:04 Lexapro - PO Not Given HS COREY Guaifenesin 10 ml 02/17/18 13:13 Diabetic Tussin Dm - PO Q6H PRN COUGH Piperacillin Sod/Tazobactam 50 mls @ 100 mls/hr 02/16/18 17:29 02/17/18 09:03 Sod 2.25 gm/ Dextrose IVPB 100 mls/hr BID COREY Administration Protocol Diltiazem HCl 125 mg/ Sodium 125 mls @ 5 mls/hr 02/16/18 18:00 02/16/18 18:45 Chloride IVPB 10 mg/hr TITR COREY 10 mls/hr Titration Protocol 5 MG/HR Vasopressin 50 units/ Sodium 100 mls @ 24 mls/hr 02/16/18 20:45 02/16/18 20: 05 Chloride IVPB 0.1 units/min TITR COREY 12 mls/hr Titration Protocol 0.2 UNITS/MIN Sodium Chloride 250 mls @ 3,000 mls/hr 02/17/18 12:17 Normal Saline - IV 02/18/18 12:18 PRN PRN Hypotension during Dialysis Insulin Aspart 1 vial 02/13/18 03:42 02/17/18 11:55 Novolog Vial Sliding Scale - SQ Not Given ACHS COREY Protocol Losartan Potassium 12.5 mg 02/15/18 10:00 02/17/18 09:03 Cozaar - PO Not Given BID COREY Midodrine 5 mg 02/17/18 12:00 02/17/18 12:29 Proamatine - PO 5 mg BID-MID COREY Administration Pantoprazole Sodium 40 mg 02/14/18 10:00 02/17/18 09:04 Protonix - PO 40 mg DAILY COREY Administration Rosuvastatin Calcium 10 mg 02/13/18 22:00 02/16/18 22:00 Crestor - PO Not Given HS COREY Tamsulosin HCl 0.4 mg 02/13/18 22:00 02/16/18 22:00 Flomax - PO Not Given HS COREY Warfarin Sodium 5 mg 02/14/18 18:00 02/16/18 18:18 Coumadin - PO 5 mg DAILY@1800 COREY Administration ASSESSMENT/PLAN: Patient is a 77 year old male (b. [place]), with PMHx of CVA, DM, CAD (SC--> 5 coronary stents at [facility] 08/17, with subsequent renal failure and ventricular thrombus; currently on ASA, clopidogrel, and warfarin), ESRD ( hemodialysis since 11/2017), diastolic CHF, HTN, HLD, s/p GI Bleed, Anxiety, and Diabetes Mellitus. Cardio: CAD, CHF, HLD 4 second asystolic period preceded by Atrial Flutter -Vasopressin started last night for pt's BP. Now being weaned. -Cardizem gtt, temporarily withed due to pt's marginal BP -Carvidilol 12.5 mg PO BID -Warfarin 5 mg po daily--> Left Ventricular Thrombus -Crestor 10 mg PO HS -Cozaar 12.5 mg PO BID -Plavix 75 mg PO DAILY -ASA 81 MG PO Daily -Dr Moreno on board Renal: CKD ESRD on HD with Hyperkalemia -HD deferred until tomorrow due to pt's marginal BP. - Midodrine 5 MG PO BID for BP - HD tomorrow - K 5.2 this am. Continue to monitor electrolytes. -Dr Del Cid on board ENDO- DM2 Novolog Vial Sliding Scale 1 vial SQ ACHS I.D-Possible Aspiration Pneumonia -Zosyn 50 mls @ 100 mls/hr IVPB BID 02/17/18 Xray--> B/L Pulmonary and Pleural changes increased since prior xray FEN NS @ 250 mls @ 3,000 mls/hr PRN Hypotension Monitor Electrolytes Diabetic/Sodium diet DVT ppx: SCD's Dispo: Continue to monitor in icu. Visit type - Emergency Visit Emergency Visit: Yes ED Registration Date: 02/13/18 Care time: The patient presented to the Emergency Department on the above date and was hospitalized for further evaluation of their emergent condition. - New Patient This patient is new to me today: No - Critical Care Critical Care patient: Yes Total Critical Care Time (in minutes): 35 Critical Care Statement: The care of this patient involved high complexity decision making to prevent further life threatening deterioration of the patient 's condition and/or to evaluate & treat vital organ system(s) failure or risk of failure.
[2018-02-17] MEDS: guaiFENesin/D-M SUGAR-FREE/ACLHOL-FREE 118 ML BOTTLE PO PRN (16:23)
[2018-02-17 16:24] LABS: ANION GAP 10 MMOL/L (8-16); BLOOD UREA NITROGEN 55 mg/dL (7-18); CALCIUM 7.9 mg/dL (8.5-10.1); CHLORIDE 97 mmol/L (98-107); CO2 27 mmol/L (21-32); CREATININE 3.1 mg/dL (0.7-1.3); POTASSIUM 4.8 mmol/L (3.5-5.1); SODIUM 134 mmol/L (136-145)
[2018-02-17 16:29] LABS: GLUCOSE,RANDOM 583 mg/dL (74-106)
[2018-02-17] MEDS: WARFARIN NA 5 MG TABLET (UD) PO SCH (17:19)
[2018-02-17] MEDS: DILTIAZEM INJECTION 125 MG in SODIUM CHLORIDE 100 ML IVPB SCH (18:00)
--- NOTE | 2018-02-17 19:14 | CONSULT ---
Consult Consult Specialty:: Endocrinology Referred by:: Nura Garrison MD Reason for Consultation:: Hyperglycemia - History of Present Illness Chief Complaint: Vomiting, fatigue History of Present Illness: This is a 77 year old male with h/o CVA, CAD s/p 5 stents, CHF, HTN, HLD, ND ( Jul 2017),right ventricle thrombus (currently on plavix, ASA, and coumadin), GI Bleed, Renal Insufficiency, Anxiety, Diabetes Mellitus on Insulin, who presented with generalized weakness, vomiting and low blood pressure. pt had a vascular procedure the same day. Events during the hospitalization included and episode of ?bradycardia/asystole in the ICU yesterday. Pt referred for management of hyperglycemia of >500 today. Pt currently only on Novolog SS. Home Insulin regimen includes Lantus 30 units daily in the morning and Novolog SS. FS at home 100 to 200s. Pt has brittle DM. - History Source History Provided By: Patient, Family Member, Medical Record - Past Medical History [employer]: Yes: CVA, Other (had CVA in past with full recovery) Cardio/Vascular: Yes: CAD, CHF, HTN, Hyperlipdemia, ND Gastrointestinal: Yes: GI Bleed Renal/: Yes: Renal Failure, Hemodialysis, Other (BUN is elevated with slight elevation of creatinine) Psych: Yes: Anxiety. No: Addictions, Bipolar, Depression, Panic, Psychosis, Schizophrenia, Other Endocrine: Yes: Diabetes Mellitus. No: [place]'s Disease, [place]'s Disease, Diabetes Insipidus, Hyperparathyroidism, Hyperthyroidism, Hypothyroidism, Osteopenia, SIADH, Other - Past Surgical History Past Surgical History: Yes: Stent - Alcohol/Substance Use Hx Alcohol Use: No History of Substance Use: reports: None - Smoking History Smoking history: Never smoked Have you smoked in the past 12 months: No - Social History Usual Living Arrangement: With Spouse ADL: Family Assistance History of Recent Travel: No Home Medications - Allergies Allergies/Adverse Reactions: Allergies Allergy/AdvReac Type Severity Reaction Status Date / Time No Known Allergies Allergy Verified 02/12/18 21:17 - Home Medications Home Medications: Ambulatory Orders Clopidogrel Bisulfate [Plavix -] 75 mg PO DAILY 09/03/17 Insulin Glargine,Hum.rec.anlog [Lantus Solostar PEN -] 30 units SQ DAILY Rosuvastatin [Crestor -] 10 mg PO DAILY 09/03/17 Tamsulosin HCl [Flomax -] 0.4 mg PO HS 09/03/17 Calcium Acetate [Phoslo -] 667 mg PO TIDCM 30 Days #90 capsule 09/14/17 Carvedilol [Coreg -] 12.5 mg PO BID tablet 09/14/17 hydrALAZINE HCL [Apresoline -] 25 mg PO BID tablet 09/14/17 Allopurinol [Zyloprim -] 300 mg PO DAILY 11/21/17 Aspirin [ASA -] 81 mg PO DAILY 11/21/17 Isosorbide Dinitrate [Isordil -] 20 mg PO BID 11/21/17 Warfarin Sodium [Coumadin] 4 mg PO ASDIR 11/21/17 Warfarin Sodium [Coumadin] 5 mg PO ASDIR 11/21/17 Escitalopram Oxalate [Lexapro -] 5 mg PO HS #30 tablet 12/09/17 Insulin Sliding Scale [Novolog Vial Sliding Scale -] 1 vial SQ HS units Insulin Sliding Scale [Novolog Vial Sliding Scale -] 1 vial SQ TIDCM units 06/16 Torsemide [Demadex -] 100 mg PO DAILY #30 tablet 12/09/17 Enoxaparin Sodium [Lovenox] 150 mg SCJ BID 02/11/18 Review of Systems - Review of Systems Constitutional: reports: Malaise, Weakness Eyes: reports: No Symptoms HENT: reports: No Symptoms Neck: reports: No Symptoms Cardiovascular: reports: No Symptoms Respiratory: reports: No Symptoms Gastrointestinal: reports: No Symptoms Genitourinary: reports: No Symptoms Musculoskeletal: reports: No Symptoms Neurological: reports: No Symptoms Physical Exam Vital Signs: Vital Signs Temperature 98.0 F 02/17/18 18:00 Pulse Rate 78 02/17/18 18:00 Respiratory Rate 17 02/17/18 18:00 Blood Pressure 114/64 02/17/18 18:00 O2 Sat by Pulse Oximetry (%) 100 02/17/18 08:00 Constitutional: Yes: No Distress, Calm Eyes: Yes: Conjunctiva Clear, EOM Intact HENT: Yes: Atraumatic, Normocephalic Neck: Yes: Supple, Trachea Midline Cardiovascular: Yes: Regular Rate and Rhythm Respiratory: Yes: Regular, CTA Bilaterally Gastrointestinal: Yes: Normal Bowel Sounds, Soft Musculoskeletal: Yes: WNL Extremities: Yes: Other (Ecchymosis left thigh) Edema: No Neurological: Yes: Alert, Oriented Labs: CBC, BMP 02/17/18 05:30 02/17/18 15:00 Problem List - Problems (1) Chronic diastolic (congestive) heart failure Code(s): I50.32 - CHRONIC DIASTOLIC (CONGESTIVE) HEART FAILURE (2) Hip hematoma, left Code(s): S70.02XA - CONTUSION OF LEFT HIP, INITIAL ENCOUNTER Qualifiers: Encounter type: subsequent encounter Qualified Code(s): S70.02XD - Contusion of left hip, subsequent encounter (3) Hypotension Code(s): I95.9 - HYPOTENSION, UNSPECIFIED (4) Vomiting Code(s): R11.10 - VOMITING, UNSPECIFIED (5) Weakness generalized Code(s): R53.1 - WEAKNESS (6) Diabetes mellitus Code(s): E11.9 - TYPE 2 DIABETES MELLITUS WITHOUT COMPLICATIONS Qualifiers: Diabetes mellitus type: type 2 Diabetes mellitus complication status: with ophthalmic complications Diabetes mellitus complication detail: with diabetic retinopathy (7) ESRD (end stage renal disease) on dialysis Code(s): N18.6 - END STAGE RENAL DISEASE; Z99.2 - DEPENDENCE ON RENAL DIALYSIS Assessment/Plan AP: T2DM with hyperlgycemia ESRD S/P Asystole of 4 sec CAD H/O CVA Possible Aspiration Pneumonia NOvolog SS coverage BGM 2 hrs after last Insulin dose Hi Novolog 8 units Stat Rpt BGM again in 2 hr BGM Q4 hrs overnight Start Levemir 10 units daily starting tomorrow morning
[2018-02-17] MEDS ORDERED: INSULIN SLIDING SCALE (NOVOLOG) 1 VIAL SQ SCH (22:00)
[2018-02-17] MEDS ORDERED: Insulin (LOG) Aspart 100 UNITS/ML VIAL SQ SCH (22:00)
[2018-02-17] MEDS: ESCITALOPRAM OXALATE 10 MG TABLET (FP) PO SCH (22:31)
[2018-02-17] MEDS: POLYETHYLENE GLYCOL 3350 119 GM BTL PO SCH (22:31)
[2018-02-17] MEDS: ROSUVASTATIN CA 10 MG TABLET (FP) PO SCH (22:32)
[2018-02-17] MEDS: TAMSULOSIN HCL 0.4 MG CAP.ER.24H (FP) PO SCH (22:32)
[2018-02-18] MEDS ORDERED: PIPERACILLIN/TAZOBACTAM 2.25 GM VIAL IVPB ONE ×3 (00:56→20:33)
[2018-02-18] MEDS ORDERED: DEXTROSE 5%-WATER - 50 ML IVPB ONE ×3 (00:57→20:33)
[2018-02-18] MEDS ORDERED: Insulin (LOG) Aspart 100 UNITS/ML VIAL SQ ONE ×2 (02:30→21:35)
[2018-02-18 06:06] LABS: HBSAG SCREEN Negative (Negative); HEP A AB, IGM Negative (Negative); HEP B CORE AB, TOT Negative (Negative)
[2018-02-18 06:34] LABS: HEMATOCRIT 27.4 % (35.4-49); HEMOGLOBIN 8.9 GM/dL (11.7-16.9); MCH 27.8 pg (25.7-33.7); MCHC 32.3 g/dl (32.0-35.9); MEAN CELL VOLUME 86.1 fl (80-96); MEAN PLT VOLUME 10.7 fl (7.5-11.1); PLATELET COUNT 84 K/MM3 (134-434); RBC 3.18 M/mm3 (4.00-5.60); RDW 18.7 % (11.9-15.9); WHITE BLOOD COUNT 7.6 K/mm3 (4.0-10.0)
[2018-02-18] MEDS: INSULIN SLIDING SCALE (NOVOLOG) 1 VIAL SQ SCH ×5 (06:36→21:30)
[2018-02-18 07:06] LABS: CHLORIDE 100 mmol/L (98-107); POTASSIUM 4.5 mmol/L (3.5-5.1); SODIUM 139 mmol/L (136-145)
[2018-02-18 07:32] LABS: SGPT/ALT 631 U/L (12-78)
[2018-02-18 08:32] LABS: ALBUMIN 2.1 g/dl (3.4-5.0); ALK PHOS 126 U/L (45-117); ANION GAP 11 MMOL/L (8-16); BILIRUBIN,TOTAL 0.7 mg/dL (0.2-1.0); BLOOD UREA NITROGEN 67 mg/dL (7-18); CALCIUM 8.3 mg/dL (8.5-10.1); CO2 28 mmol/L (21-32); CREATININE 3.5 mg/dL (0.7-1.3); GLUCOSE,RANDOM 289 mg/dL (74-106); MAGNESIUM 2.4 mg/dL (1.8-2.4); PHOSPHOROUS 3.4 mg/dL (2.5-4.9); TOT PROT 4.9 g/dl (6.4-8.2)
[2018-02-18 08:35] LABS: SGOT/AST 676 U/L (15-37)
[2018-02-18] MEDS: CALCIUM ACETATE 667 MG CAPSULE (FP) PO SCH ×3 (08:36→18:11)
[2018-02-18] MEDS ORDERED: EPOETIN ALFA 20,000 UNIT/1 ML VIAL IVPUSH ONE (09:00)
[2018-02-18] MEDS ORDERED: PT OWN MED DRAWER 7, Y5N ONE (09:11)
[2018-02-18 09:47] LABS: INR 3.69 (0.83-1.09); PROTHROMBIN TIME (PATIENT) 41.7 SEC (9.7-13.0)
[2018-02-18] MEDS: ALBUMIN HUMAN 25% 12.5 GM/50 ML VIAL IVPB SCH ×4 (10:00→12:00)
--- NOTE | 2018-02-18 10:01 | PN ---
Progress Note (short form) - Note Progress Note: awake, no complaints for HD today Vital Signs Vital Signs Period Temp Pulse Resp BP Sys/Simons Pulse Ox Last 24 Hr 98.0 F-98.6 F 60-78 15-20 89-122/49-79 100 cor-rrr llungs decreased bs at bases abd soft,nt +hematoma unchanged ext no edema CBC, BMP 02/18/18 05:30 02/18/18 05:30 cxray-congestion improved a/p rapid afib esrd/hd ?aspiration pneumonia versus volume overload diabetes CAD hematoma to continue zosyn for now day #2- would treat short course- total 5 days Problem List - Problems (1) Fluid overload Code(s): E87.70 - FLUID OVERLOAD, UNSPECIFIED Qualifiers: Hypervolemia type: unspecified Qualified Code(s): E87.70 - Fluid overload, unspecified (2) Anemia Code(s): D64.9 - ANEMIA, UNSPECIFIED (3) Hip hematoma, left Code(s): S70.02XA - CONTUSION OF LEFT HIP, INITIAL ENCOUNTER Qualifiers: Encounter type: subsequent encounter Qualified Code(s): S70.02XD - Contusion of left hip, subsequent encounter (4) ESRD (end stage renal disease) on dialysis Code(s): N18.6 - END STAGE RENAL DISEASE; Z99.2 - DEPENDENCE ON RENAL DIALYSIS (5) CVA (cerebral infarction) Code(s): I63.9 - CEREBRAL INFARCTION, UNSPECIFIED Qualifiers: Cerebral infarction mechanism: unspecified mechanism Qualified Code(s): I63.9 - Cerebral infarction, unspecified (6) Diabetes mellitus Code(s): E11.9 - TYPE 2 DIABETES MELLITUS WITHOUT COMPLICATIONS Qualifiers: Diabetes mellitus type: type 2 Diabetes mellitus complication status: with ophthalmic complications Diabetes mellitus complication detail: with diabetic retinopathy (7) CAD (coronary artery disease) Code(s): I25.10 - ATHSCL HEART DISEASE OF [place] CORONARY ARTERY W/O ANG PCTRS
[2018-02-18] MEDS: MIDODRINE HCL 5 MG TABLET PO SCH (10:20)
[2018-02-18] MEDS ORDERED: dilTIAZem HCL 25 MG/5 ML - 5 ML VIAL ONE (10:33)
[2018-02-18] MEDS: DILTIAZEM INJECTION 125 MG in SODIUM CHLORIDE 100 ML IVPB SCH (10:44)
--- NOTE | 2018-02-18 11:28 | PN ---
Teaching Attending Note Name of Resident: Nura Garrison ATTENDING PHYSICIAN STATEMENT I saw and evaluated the patient. I reviewed the resident's note and discussed the case with the resident. I agree with the resident's findings and plan as documented. SUBJECTIVE: Pt seen and examined in the ICU. Rapid atrial fibrillation during HD. Started on cardizem gtt, experienced a 3.6sec pause and converted back into sinus rhythm. OBJECTIVE: Vital Signs Period Temp Pulse Resp BP Sys/Simons Pulse Ox Last 24 Hr 97.7 F-98.5 F 60-133 15-20 85-122/49-79 100 Intake & Output 02/15/18 02/16/18 02/17/18 02/18/18 23:59 23:59 23:59 23:59 Intake Total 1024 20 1094 50 Output Total 0 0 0 Balance 1024 20 1094 50 Weight 67.33 kg 67.16 kg 66.82 kg 69.655 kg Gen: weak appearing Heart: RRR Lung: basilar rhonchi, rales Abd: soft, nontender Ext: no edema CBC, BMP 02/18/18 05:30 02/18/18 05:30 Active Medications Albuterol/Ipratropium (Duoneb -) 1 amp NEB Q6H PRN PRN Reason: SHORTNESS OF BREATH Last Admin: 02/17/18 12:33 Dose: 1 amp Allopurinol (Zyloprim -) 300 mg PO DAILY [facility] Last Admin: 02/17/18 10:55 Dose: 300 mg Aspirin (Ecotrin -) 81 mg PO DAILY [facility] Last Admin: 02/17/18 09:03 Dose: 81 mg Calcium Acetate (Phoslo -) 667 mg PO TIDCM [facility] Last Admin: 02/18/18 08:36 Dose: 667 mg Carvedilol (Coreg -) 12.5 mg PO BID [facility] Last Admin: 02/17/18 22:31 Dose: 12.5 mg Clopidogrel Bisulfate (Plavix -) 75 mg PO DAILY [facility] Last Admin: 02/17/18 09:04 Dose: 75 mg Escitalopram Oxalate (Lexapro -) 5 mg PO HS [facility] Last Admin: 02/17/18 22:31 Dose: 5 mg Guaifenesin (Diabetic Tussin Dm -) 10 ml PO Q6H PRN PRN Reason: COUGH Last Admin: 02/17/18 16:23 Dose: 10 ml Piperacillin Sod/Tazobactam (Sod 2.25 gm/ Dextrose) 50 mls @ 100 mls/hr IVPB BID [facility]; Protocol Last Admin: 02/17/18 23:25 Dose: 100 mls/hr Insulin Aspart (Novolog Vial Sliding Scale -) 1 vial SQ TIDAC [facility]; Protocol Last Admin: 02/18/18 06:36 Dose: Not Given Insulin Aspart (Novolog Vial Sliding Scale -) 1 vial SQ HS [facility]; Protocol Last Admin: 02/18/18 01:20 Dose: Not Given Losartan Potassium (Cozaar -) 12.5 mg PO BID [facility] Last Admin: 02/17/18 22:31 Dose: 12.5 mg Midodrine (Proamatine -) 5 mg PO BID-MID [facility] Last Admin: 02/18/18 10:20 Dose: 5 mg Pantoprazole Sodium (Protonix -) 40 mg PO DAILY [facility] Last Admin: 02/17/18 09:04 Dose: 40 mg Polyethylene Glycol (Miralax (For Daily Use) -) 17 gm PO DAILY [facility] Last Admin: 02/17/18 22:31 Dose: 17 grams Rosuvastatin Calcium (Crestor -) 10 mg PO HS [facility] Last Admin: 02/17/18 22:32 Dose: 10 mg Tamsulosin HCl (Flomax -) 0.4 mg PO HS [facility] Last Admin: 02/17/18 22:32 Dose: 0.4 mg Warfarin Sodium (Coumadin -) 4 mg PO DAILY@1800 COREY ASSESSMENT AND PLAN: Syncope Paroxysmal Atrial Fibrillation with RVR now in sinus rhythm CAD LV Diastolic Dysfunction HTN Hyperlipidemia DM LV thrombus h/o CVA ESRD on HD - stop cardizem gtt - resume coreg, low dose cardizem - continue anticoagulation - HD per renal with UF as tolerated - cough suppressants - glucose control - on empiric antibiotics per ID - o2 to keep Spo2 >90% - continue ICU monitoring for now
[2018-02-18] MEDS: guaiFENesin/D-M SUGAR-FREE/ACLHOL-FREE 118 ML BOTTLE PO PRN (11:29)
[2018-02-18] MEDS: ALLOPURINOL 300 MG TABLET (FP) PO SCH (11:30)
[2018-02-18] MEDS: CLOPIDOGREL BISULFATE 75 MG TABLET (FP) PO SCH (11:30)
[2018-02-18] MEDS: ASPIRIN COATED 81 MG TABLET.EC PO SCH (11:31)
[2018-02-18] MEDS: LOSARTAN POTASSIUM 25 MG TABLET PO SCH (11:31)
--- NOTE | 2018-02-18 11:31 | PN ---
Progress Note (short form) - Note Progress Note: Pt had a 2-3 second asystolic pause in heart rate noted on monitor with Cardizem gtt. Telemetry preceeding showed sinus tachycardia and telemetry post- pause was ventricular escape rhythm into sinus rhythm @71bpm. BP with MAP of 54 (86/42). Pt assessed and unknown if syncopal event, however pt was awake and alert to verbal. Minimally talkative, however would respond to commands and conversational prompts. Cardizem gtt discontinued due to inability to tolerate with B-blockade Can try low dose Cardizem throughout the day to trial Will discuss with Cardiology Fabio Comer, DO - IM PGY-2
[2018-02-18] MEDS: CARVEDILOL 12.5 MG TABLET (FP) PO SCH (11:32)
[2018-02-18] MEDS: PANTOPRAZOLE 40 MG TABLET (FP) PO SCH (11:32)
[2018-02-18] MEDS: PIPERACILLIN/TAZOB 2.25 GM 2.25 GM in DEXTROSE 5%-WATER - 50 ML IVPB SCH ×2 (11:33→21:15)
[2018-02-18] MEDS ORDERED: INSULIN (NOVOLOG) ASPART 100 UNITS/ML 10ML VIAL ONE ×2 (11:54→17:36)
[2018-02-18] MEDS ORDERED: INSULIN (LEVEMIR) 100 UNITS/ML UNITS SQ ONE (11:55)
[2018-02-18] MEDS: POLYETHYLENE GLYCOL 3350 119 GM BTL PO SCH (11:56)
--- NOTE | 2018-02-18 11:58 | PN ---
Progress Note (short form) - Note Progress Note: Back from dialysis, Done for an hour only b/o tachycardia BGM better but still high Vital Signs Period Temp Pulse Resp BP Sys/Simons Pulse Ox Last 24 Hr 97.7 F-98.5 F 60-133 15-20 85-122/49-79 100 PE: Drowsy, arousable Neck: Supple HEENT: EOMI Lungs:CTA CVS: S1S2 Abd: Benign Ext: No edema CMP Sodium 139 mmol/L (136-145) 02/18/18 05:30 Potassium 4.5 mmol/L (3.5-5.1) 02/18/18 05:30 Chloride 100 mmol/L (98-107) 02/18/18 05:30 Carbon Dioxide 28 mmol/L (21-32) 02/18/18 05:30 Anion Gap 11 MMOL/L (8-16) 02/18/18 05:30 BUN 67 mg/dL (7-18) H 02/18/18 05:30 Creatinine 3.5 mg/dL (0.7-1.3) H 02/18/18 05:30 Creat Clearance w eGFR 17.02 (>60) 02/18/18 05:30 POC Glucometer > 400 UNITS (80-120) 02/18/18 02:25 Random Glucose 289 mg/dL (74-106) H D 02/18/18 05:30 Lactic Acid 1.5 mmol/L (0.0-2.0) 02/13/18 05:30 Calcium 8.3 mg/dL (8.5-10.1) L 02/18/18 05:30 Phosphorus 3.4 mg/dL (2.5-4.9) D 02/18/18 05:30 Magnesium 2.4 mg/dL (1.8-2.4) 02/18/18 05:30 Total Bilirubin 0.7 mg/dL (0.2-1.0) 02/18/18 05:30 AST 676 U/L (15-37) H 02/18/18 05:30 ALT 631 U/L (12-78) H D 02/18/18 05:30 Alkaline Phosphatase 126 U/L (45-117) H 02/18/18 05:30 Creatine Kinase 38 IU/L (39-308) L 02/17/18 05:30 Troponin I 0.06 ng/ml (0.00-0.05) H D 02/17/18 05:30 Total Protein 4.9 g/dl (6.4-8.2) L 02/18/18 05:30 Albumin 2.1 g/dl (3.4-5.0) L 02/18/18 05:30 Total Amylase 67 U/L (25-115) 02/12/18 23:40 Lipase 236 U/L (73-393) 02/12/18 23:40 TSH 6.01 uIU/ml (0.358-3.74) H D 02/17/18 05:30 Current Medications Generic Name Dose Route Start Last Admin Trade Name Freq PRN Reason Stop Dose Admin Albuterol/Ipratropium 1 amp 02/14/18 12:11 02/17/18 12:33 Duoneb - NEB 1 amp Q6H PRN Administration SHORTNESS OF BREATH Allopurinol 300 mg 02/14/18 12:45 02/18/18 11:30 Zyloprim - PO 300 mg DAILY COREY Administration Aspirin 81 mg 02/15/18 10:00 02/18/18 11:31 Ecotrin - PO 81 mg DAILY COREY Administration Calcium Acetate 667 mg 02/14/18 17:30 02/18/18 08:36 Phoslo - PO 667 mg TIDCM COREY Administration Carvedilol 12.5 mg 02/13/18 22:00 02/18/18 11:32 Coreg - PO 12.5 mg BID COREY Administration Clopidogrel Bisulfate 75 mg 02/14/18 10:00 02/18/18 11:30 Plavix - PO 75 mg DAILY COREY Administration Escitalopram Oxalate 5 mg 02/13/18 22:00 02/17/18 22:31 Lexapro - PO 5 mg HS COREY Administration Guaifenesin 10 ml 02/17/18 13:13 02/18/18 11:29 Diabetic Tussin Dm - PO 10 ml Q6H PRN Administration COUGH Piperacillin Sod/Tazobactam 50 mls @ 100 mls/hr 02/16/18 17:29 02/18/18 11:33 Sod 2.25 gm/ Dextrose IVPB 100 mls/hr BID COREY Administration Protocol Insulin Aspart 1 vial 02/17/18 22:00 02/18/18 01:20 Novolog Vial Sliding Scale - SQ Not Given HS [facility] Protocol Insulin Aspart 1 vial 02/18/18 11:55 Novolog Vial Sliding Scale - SQ TIDAC [facility] Protocol Insulin Detemir 10 units 02/18/18 11:55 Levemir Vial SQ 02/18/18 11:56 ONCE ONE Losartan Potassium 12.5 mg 02/15/18 10:00 02/18/18 11:31 Cozaar - PO 12.5 mg BID C[facility]Y Administration Midodrine 5 mg 02/17/18 12:00 02/18/18 10:20 Proamatine - PO 5 mg BID-MID C[facility] Administration Pantoprazole Sodium 40 mg 02/14/18 10:00 02/18/18 11:32 Protonix - PO 40 mg DAILY [facility] Administration Polyethylene Glycol 17 gm 02/17/18 20:15 02/18/18 11:56 Miralax (For Daily Use) - PO 17 grams DAILY [facility] Administration Rosuvastatin Calcium 10 mg 02/13/18 22:00 02/17/18 22:32 Crestor - PO 10 mg HS C[facility] Administration Tamsulosin HCl 0.4 mg 02/13/18 22:00 02/17/18 22:32 Flomax - PO 0.4 mg HS [facility] Administration Warfarin Sodium 4 mg 02/18/18 18:00 Coumadin - PO DAILY@1800 C[facility]Y AP: T2DM with hyperlgycemia ESRD S/P Asystole of 4 sec CAD H/O CVA Possible Aspiration Pneumonia Blood sugar goal around 200 to avoid hypoglycemia as pt has frequent hypoglycemia at home especially at night. NOvolog SS coverage BGM QACHS and 3 AM Start Levemir 10 units today Novolog ss coverage Will f/u Problem List - Problems (1) Chronic diastolic (congestive) heart failure Code(s): I50.32 - CHRONIC DIASTOLIC (CONGESTIVE) HEART FAILURE (2) Hip hematoma, left Code(s): S70.02XA - CONTUSION OF LEFT HIP, INITIAL ENCOUNTER Qualifiers: Encounter type: subsequent encounter Qualified Code(s): S70.02XD - Contusion of left hip, subsequent encounter (3) Hypotension Code(s): I95.9 - HYPOTENSION, UNSPECIFIED (4) Vomiting Code(s): R11.10 - VOMITING, UNSPECIFIED (5) Weakness generalized Code(s): R53.1 - WEAKNESS (6) Diabetes mellitus Code(s): E11.9 - TYPE 2 DIABETES MELLITUS WITHOUT COMPLICATIONS Qualifiers: Diabetes mellitus type: type 2 Diabetes mellitus complication status: with ophthalmic complications Diabetes mellitus complication detail: with diabetic retinopathy (7) ESRD (end stage renal disease) on dialysis Code(s): N18.6 - END STAGE RENAL DISEASE; Z99.2 - DEPENDENCE ON RENAL DIALYSIS
[2018-02-18] MEDS ORDERED: FUROSEMIDE 100 MG/10 ML INJECTABLE VIAL IVPB ONE (14:30)
[2018-02-18] MEDS ORDERED: MIDODRINE HCL 5 MG TABLET PO SCH (18:00)
--- NOTE | 2018-02-18 18:43 | PN ---
Progress Note, Physician Chief Complaint: Pt alert and oriented x 3; weak; fo HD today. History of Present Illness: Patient is a 77 year old male (linnea Kingsley), with PMHx of CVA, CAD (AL--> 5 coronary stents at [facility] 08/17, with subsequent renal failure and ventricular thrombus; currently on ASA, clopidogrel, and warfarin), ESRD ( hemodialysis since 11/2017), diastolic CHF, HTN, HLD, s/p GI Bleed, Anxiety, Diabetes Mellitus, who presents with generalized weakness and low blood pressure. The patients (Dr. Davila) states that this afternoon he vomited and noted that his blood pressure was relatively low and he was feeling weak. She brought him to [facility] ER where he has history. He receives dialysis every Friday, , and Friday, but did not go today. Earlier in the day, prior to planned hemodialysis, he underwent renal angioplasty by the vascular surgeon (Dr. Huff) and was NPO. Surgical Hx: December 05 2017 - Renal angioplasty. 02/12/18 - Left AVF with stenosis. AL (Jul, 2017) with multiple stent placements simultaenously. PCP: Coleman Hess - Current Medication List Current Medications: Active Medications Albuterol/Ipratropium (Duoneb -) 1 amp NEB Q6H PRN PRN Reason: SHORTNESS OF BREATH Last Admin: 02/17/18 12:33 Dose: 1 amp Allopurinol (Zyloprim -) 300 mg PO DAILY [facility] Last Admin: 02/18/18 11:30 Dose: 300 mg Aspirin (Ecotrin -) 81 mg PO DAILY [facility] Last Admin: 02/18/18 11:31 Dose: 81 mg Calcium Acetate (Phoslo -) 667 mg PO TIDCM [facility] Last Admin: 02/18/18 18:11 Dose: 667 mg Escitalopram Oxalate (Lexapro -) 5 mg PO HS [facility] Last Admin: 02/17/18 22:31 Dose: 5 mg Guaifenesin (Diabetic Tussin Dm -) 10 ml PO Q6H PRN PRN Reason: COUGH Last Admin: 02/18/18 11:29 Dose: 10 ml Piperacillin Sod/Tazobactam (Sod 2.25 gm/ Dextrose) 50 mls @ 100 mls/hr IVPB BID [facility]; Protocol Last Admin: 02/18/18 11:33 Dose: 100 mls/hr Insulin Aspart (Novolog Vial Sliding Scale -) 1 vial SQ TIDAC [facility]; Protocol Last Admin: 02/18/18 17:00 Dose: 14 units Insulin Aspart (Novolog Vial Sliding Scale -) 1 vial SQ HS [facility]; Protocol Metoprolol Tartrate (Lopressor -) 12.5 mg PO Q6HPO [facility] Midodrine (Proamatine -) 7.5 mg PO TID-MID [facility] Last Admin: 02/18/18 18:12 Dose: 7.5 mg Pantoprazole Sodium (Protonix -) 40 mg PO DAILY [facility] Last Admin: 02/18/18 11:32 Dose: 40 mg Polyethylene Glycol (Miralax (For Daily Use) -) 17 gm PO DAILY [facility] Last Admin: 02/18/18 11:56 Dose: 17 grams Rosuvastatin Calcium (Crestor -) 10 mg PO [facility] Last Admin: 02/17/18 22:32 Dose: 10 mg Tamsulosin HCl (Flomax -) 0.4 mg PO [facility] Last Admin: 02/17/18 22:32 Dose: 0.4 mg Warfarin Sodium (Coumadin -) 4 mg PO DAILY@1800 [facility] - Objective Vital Signs: Vital Signs Temperature 98.2 F 02/18/18 18:00 Pulse Rate 78 02/18/18 18:00 Respiratory Rate 18 02/18/18 18:00 Blood Pressure 108/61 02/18/18 18:00 O2 Sat by Pulse Oximetry (%) 100 02/18/18 09:00 Constitutional: Yes: Calm Eyes: Yes: WNL Labs: CBC, BMP 02/18/18 05:30 02/18/18 05:30 INR, PTT INR 3.69 (0.83-1.09) H 02/18/18 05:30 Problem List - Problems (1) Vomiting Code(s): R11.10 - VOMITING, UNSPECIFIED (2) AV fistula Assessment/Plan: left AV fistula. For f/u with vascular surgeon; sutures may be removed this week Still using right peacath for hemodialysis presently. Code(s): I77.0 - ARTERIOVENOUS FISTULA, ACQUIRED (3) Anxiety and depression Code(s): F41.8 - OTHER SPECIFIED ANXIETY DISORDERS (4) BPH (benign prostatic hypertrophy) Code(s): N40.0 - BENIGN PROSTATIC HYPERPLASIA WITHOUT LOWER URINRY TRACT SYMP (5) CVA (cerebral infarction) Assessment/Plan: Od laconar infarcts in right occiput, cerebelloum on 11/14 CT. On ASA and clopidogrel for recent AL-->several DE stents, and wafrarin (LV thrombu; PAF). High-dose statin to keep LDL as low as possible. Physical rehabilitation. Code(s): I63.9 - CEREBRAL INFARCTION, UNSPECIFIED Qualifiers: Cerebral infarction mechanism: unspecified mechanism Qualified Code(s): I63.9 - Cerebral infarction, unspecified (6) Fall Code(s): W19.XXXA - UNSPECIFIED FALL, INITIAL ENCOUNTER Qualifiers: Encounter type: initial encounter Qualified Code(s): W19.XXXA - Unspecified fall, initial encounter (7) Hx of heart artery stent Assessment/Plan: Hx AL-->multiple stents. On ASA and clopidogrel (as well as warfarin for ventricular thrombus). Carvedilol changed to metoprolol for better AV inhibition. Clopidogrel held pending possible ablation therapy for atrial flutter. Code(s): Z95.5 - PRESENCE OF CORONARY ANGIOPLASTY IMPLANT AND GRAFT (8) Hyperlipidemia Code(s): E78.5 - HYPERLIPIDEMIA, UNSPECIFIED Qualifiers: Hyperlipidemia type: pure hypercholesterolemia Qualified Code(s): E78.00 - Pure hypercholesterolemia, unspecified; E78.0 - Pure hypercholesterolemia (9) LV (left ventricular) mural thrombus Code(s): [id number] - (10) Hypotension Code(s): I95.9 - HYPOTENSION, UNSPECIFIED (11) Chronic diastolic (congestive) heart failure Assessment/Plan: ECHO this admission: preserved LVEF, with regional wall abnormalities (apical, inferior); borderline dilated LV; cannot exclude LV apical thrombus. On carvedilol; hydralazine held until low BP has improved. Consider retrail of ACEI or ARB, given CAD, enlarged LV, and that pt is now on hemodialysis. Pt was initially hyperkalemic, however. Code(s): I50.32 - CHRONIC DIASTOLIC (CONGESTIVE) HEART FAILURE (12) Atrial flutter Assessment/Plan: Pt for hemodialysis today. Received carvedilol late last ight. Follow on telemonitoring. Addendum: While undergoing hemodialysis, pt developed Atrial flutter with HR >140 bpm, hpotension, and then a prolonged pause after beig given IV diltiazem Dialysis was stopped; fluids ad albumin were given. Pt is now in sinus rhythm, HR in 60s bpm; alert and oriented x 3. Discussed pt with Dr. Matti Daugherty, EP, who treated him in 2014 post coronary angiogram when he developed a brief episode of AF. At that time, it was felt no treatment apart from beta blockers (metoprolol) was necessary, but future arrhythmia might entail ablation Rx and/or PPM. As per our discussion, pt will be changed from carvedilol to metroplol tartrate 12.5 mg q6h, with plans to increase to 25-50 mg q 6h if tolerated (though, in the past, metoprolol had to be stopped due to hypotension). Losartan was stopped. Clopidogrel held pending possible ablation therapy for atrial flutter next week. (Pt may have left UE AV fistula sutures removed this week, ad perma cath removed ). Code(s): I48.92 - UNSPECIFIED ATRIAL FLUTTER
--- NOTE | 2018-02-18 20:05 | PN ---
Progress Note, Physician History of Present Illness: Denies any chest pain. Denies any SOB. Cough has improved and hasn't had any fever - Current Medication List Current Medications: Active Medications Albuterol/Ipratropium (Duoneb -) 1 amp NEB Q6H PRN PRN Reason: SHORTNESS OF BREATH Last Admin: 02/17/18 12:33 Dose: 1 amp Aspirin (Ecotrin -) 81 mg PO DAILY [facility] Last Admin: 02/18/18 11:31 Dose: 81 mg Calcium Acetate (Phoslo -) 667 mg PO TIDCM [facility] Last Admin: 02/18/18 18:11 Dose: 667 mg Escitalopram Oxalate (Lexapro -) 5 mg PO HS [facility] Last Admin: 02/17/18 22:31 Dose: 5 mg Guaifenesin (Diabetic Tussin Dm -) 10 ml PO Q6H PRN PRN Reason: COUGH Last Admin: 02/18/18 11:29 Dose: 10 ml Piperacillin Sod/Tazobactam (Sod 2.25 gm/ Dextrose) 50 mls @ 100 mls/hr IVPB BID [facility]; Protocol Last Admin: 02/18/18 11:33 Dose: 100 mls/hr Insulin Aspart (Novolog Vial Sliding Scale -) 1 vial SQ TIDAC [facility]; Protocol Last Admin: 02/18/18 17:00 Dose: 14 units Insulin Aspart (Novolog Vial Sliding Scale -) 1 vial SQ HS [facility]; Protocol Metoprolol Tartrate (Lopressor -) 12.5 mg PO Q6HPO [facility] Midodrine (Proamatine -) 7.5 mg PO TID-MID [facility] Last Admin: 02/18/18 18:12 Dose: 7.5 mg Pantoprazole Sodium (Protonix -) 40 mg PO DAILY [facility] Last Admin: 02/18/18 11:32 Dose: 40 mg Polyethylene Glycol (Miralax (For Daily Use) -) 17 gm PO DAILY [facility] Last Admin: 02/18/18 11:56 Dose: 17 grams Tamsulosin HCl (Flomax -) 0.4 mg PO HS [facility] Last Admin: 02/17/18 22:32 Dose: 0.4 mg Warfarin Sodium (Coumadin -) 4 mg PO DAILY@1800 [facility] - Objective Vital Signs: Vital Signs Temperature 98.2 F 02/18/18 18:00 Pulse Rate 78 02/18/18 18:00 Respiratory Rate 18 02/18/18 18:00 Blood Pressure 108/61 02/18/18 18:00 O2 Sat by Pulse Oximetry (%) 100 02/18/18 09:00 Constitutional: Yes: No Distress, Calm Eyes: Yes: Conjunctiva Clear, EOM Intact HENT: Yes: WNL Neck: Yes: Supple Cardiovascular: Yes: Regular Rate and Rhythm, S1, S2 Respiratory: Yes: Regular, CTA Bilaterally Gastrointestinal: Yes: Normal Bowel Sounds, Soft Genitourinary: Yes: WNL Musculoskeletal: Yes: WNL Extremities: Yes: WNL Edema: No Peripheral Pulses WNL: Yes Integumentary: Yes: WNL Neurological: Yes: Alert, Oriented, Cran Nerves II-XII Intact ...Motor Strength: WNL Psychiatric: Yes: Alert, Oriented Labs: CBC, BMP 02/18/18 05:30 02/18/18 05:30 INR, PTT INR 3.69 (0.83-1.09) H 02/18/18 05:30 - ....Imaging Chest X-ray: Report Reviewed, Image Reviewed EKG: Report Reviewed, Image Reviewed Problem List - Problems (1) Chronic diastolic (congestive) heart failure Assessment/Plan: CHF has improved with HD on a regular basis with improved peripheral edema and lung congestion Code(s): I50.32 - CHRONIC DIASTOLIC (CONGESTIVE) HEART FAILURE (2) Hypotension Assessment/Plan: BP has been around 100 with midodrine Code(s): I95.9 - HYPOTENSION, UNSPECIFIED (3) Anemia Assessment/Plan: anemia is stable at 9 Gm% Code(s): D64.9 - ANEMIA, UNSPECIFIED (4) Diabetes 1.5, managed as type 1 Code(s): E13.9 - OTHER SPECIFIED DIABETES MELLITUS WITHOUT COMPLICATIONS (5) Syncope Code(s): R55 - SYNCOPE AND COLLAPSE Assessment/Plan IMP:Pneumonia, CHF CAD with 5 stents DM on Insulin Peripheral neuropathy ESRD on HD AV fistula. Assess: Had another episode of prolonged pause with Afib but recovered and now in sinus. Decision to be made about ablation due to AFIB. CHF improves with HD but gets hypotensive.
[2018-02-18] MEDS: ALBUTEROL SO4 2.5/IPRATROPIUM 0.5 INH SOL 3 ML VIAL.NEB. NEB PRN (20:15)
[2018-02-18] MEDS: ESCITALOPRAM OXALATE 10 MG TABLET (FP) PO SCH (21:15)
[2018-02-18] MEDS: TAMSULOSIN HCL 0.4 MG CAP.ER.24H (FP) PO SCH (21:15)
--- NOTE | 2018-02-18 22:28 | PN ---
Physical Exam: SUBJECTIVE: Patient seen and examined this am and evening in icu .Pt experienced an episode of rapid a-fib during HD this morning. Cardizem drip started, patient observed to have a 3-4 second asystolic pause and cardizem drip withheld. Awake, alert, denies any cp or sob at this time. OBJECTIVE: Vital Signs Period Temp Pulse Resp BP Sys/Simons Pulse Ox Last 24 Hr 97.7 F-98.2 F 60-133 15-19 70-112/49-79 100 GENERAL: Pleasent, alert, weak. HEAD: NC/AT EYES: EOMI. ENT: MMM NECK: No JVD. LUNGS: Breath sounds equal, clear to auscultation bilaterally, no wheezes, no crackles, no accessory muscle use. HEART: RRR ABDOMEN: NT, ND, No HSM EXTREMITIES: No CE NEUROLOGICAL: No Neuro Deficits observed PSYCH: Normal mood, normal affect. SKIN: No Rashes appreciated. Laboratory Results - last 24 hr 02/13/18 02/13/18 02/17/18 15:00 19:30 06:13 WBC RBC Hgb Hct MCV MCH MCHC RDW Plt Count MPV PT with INR INR PTT (Actin FS) Sodium Potassium Chloride Carbon Dioxide Anion Gap BUN Creatinine Creat Clearance w eGFR POC Glucometer > 400 Random Glucose Calcium Phosphorus Magnesium Total Bilirubin AST ALT Alkaline Phosphatase Total Protein Albumin Hep A IgM Ab Confirm Negative Hepatitis A Ab Total Positive H Hep Bs Antigen Negative Hep Bs Antibody Non reactive Hep B Core Total Ab Negative Blood Type A POSITIVE Antibody Screen Negative Crossmatch See Detail 02/17/18 02/17/18 02/17/18 10:46 16:28 19:46 WBC RBC Hgb Hct MCV MCH MCHC RDW Plt Count MPV PT with INR INR PTT (Actin FS) Sodium Potassium Chloride Carbon Dioxide Anion Gap BUN Creatinine Creat Clearance w eGFR POC Glucometer > 400 > 400 > 400 Random Glucose Calcium Phosphorus Magnesium Total Bilirubin AST ALT Alkaline Phosphatase Total Protein Albumin Hep A IgM Ab Confirm Hepatitis A Ab Total Hep Bs Antigen Hep Bs Antibody Hep B Core Total Ab Blood Type Antibody Screen Crossmatch 02/17/18 02/18/18 02/18/18 22:18 02:25 05:30 WBC 7.6 RBC 3.18 L Hgb 8.9 L Hct 27.4 L MCV 86.1 MCH 27.8 MCHC 32.3 RDW 18.7 H Plt Count 84 L D MPV 10.7 PT with INR INR PTT (Actin FS) Sodium Potassium Chloride Carbon Dioxide Anion Gap BUN Creatinine Creat Clearance w eGFR POC Glucometer > 400 > 400 Random Glucose Calcium Phosphorus Magnesium Total Bilirubin AST ALT Alkaline Phosphatase Total Protein Albumin Hep A IgM Ab Confirm Hepatitis A Ab Total Hep Bs Antigen Hep Bs Antibody Hep B Core Total Ab Blood Type Antibody Screen Crossmatch 02/18/18 02/18/18 02/18/18 05:30 05:30 05:30 WBC RBC Hgb Hct MCV MCH MCHC RDW Plt Count MPV PT with INR INR PTT (Actin FS) 37.6 H Sodium 139 Cancelled Potassium 4.5 Cancelled Chloride 100 Cancelled Carbon Dioxide 28 Cancelled Anion Gap 11 Cancelled BUN 67 H Cancelled Creatinine 3.5 H Cancelled Creat Clearance w eGFR 17.02 Cancelled POC Glucometer Random Glucose 289 H D Cancelled Calcium 8.3 L Cancelled Phosphorus 3.4 D Cancelled Magnesium 2.4 Total Bilirubin 0.7 Cancelled AST 676 H Cancelled ALT 631 H D Cancelled Alkaline Phosphatase 126 H Cancelled Total Protein 4.9 L Cancelled Albumin 2.1 L Cancelled Hep A IgM Ab Confirm Hepatitis A Ab Total Hep Bs Antigen Hep Bs Antibody Hep B Core Total Ab Blood Type Antibody Screen Crossmatch 02/18/18 02/18/18 02/18/18 05:30 11:48 21:24 WBC RBC Hgb Hct MCV MCH MCHC RDW Plt Count MPV PT with INR 41.70 H INR 3.69 H PTT (Actin FS) Sodium Potassium Chloride Carbon Dioxide Anion Gap BUN Creatinine Creat Clearance w eGFR POC Glucometer > 400 > 400 Random Glucose Calcium Phosphorus Magnesium Total Bilirubin AST ALT Alkaline Phosphatase Total Protein Albumin Hep A IgM Ab Confirm Hepatitis A Ab Total Hep Bs Antigen Hep Bs Antibody Hep B Core Total Ab Blood Type Antibody Screen Crossmatch Active Medications Generic Name Dose Route Start Last Admin Trade Name Freq PRN Reason Stop Dose Admin Albuterol/Ipratropium 1 amp 02/14/18 12:11 02/17/18 12:33 Duoneb - NEB 1 amp Q6H PRN Administration SHORTNESS OF BREATH Aspirin 81 mg 02/15/18 10:00 02/18/18 11:31 Ecotrin - PO 81 mg DAILY [facility] Administration Calcium Acetate 667 mg 02/14/18 17:30 02/18/18 18:11 Phoslo - PO 667 mg TIDCM [facility] Administration Escitalopram Oxalate 5 mg 02/13/18 22:00 02/18/18 21:15 Lexapro - PO 5 mg HS [facility] Administration Guaifenesin 10 ml 02/17/18 13:13 02/18/18 11:29 Diabetic Tussin Dm - PO 10 ml Q6H PRN Administration COUGH Piperacillin Sod/Tazobactam 50 mls @ 100 mls/hr 02/16/18 17:29 02/18/18 21:15 Sod 2.25 gm/ Dextrose IVPB 100 mls/hr BID [facility] Administration Protocol Insulin Aspart 1 vial 02/18/18 11:55 02/18/18 17:00 Novolog Vial Sliding Scale - SQ 14 units TIDAC [facility] Administration Protocol Insulin Aspart 1 vial 02/18/18 22:00 Novolog Vial Sliding Scale - SQ HS [facility] Protocol Metoprolol Tartrate 12.5 mg 02/19/18 06:00 Lopressor - PO Q6HPO [facility] Midodrine 7.5 mg 02/18/18 18:00 02/18/18 18:12 Proamatine - PO 7.5 mg TID-MID [facility] Administration Pantoprazole Sodium 40 mg 02/14/18 10:00 02/18/18 11:32 Protonix - PO 40 mg DAILY [facility] Administration Polyethylene Glycol 17 gm 02/17/18 20:15 02/18/18 11:56 Miralax (For Daily Use) - PO 17 grams DAILY [facility] Administration Tamsulosin HCl 0.4 mg 02/13/18 22:00 02/18/18 21:15 Flomax - PO 0.4 mg HS [facility] Administration Warfarin Sodium 4 mg 02/18/18 18:00 Coumadin - PO DAILY@1800 [facility] ASSESSMENT/PLAN: Patient is a 77 year old male (b. [place]), with PMHx of CVA, DM, CAD ([place]--> 5 coronary stents at [facility] 08/17, with subsequent renal failure and ventricular thrombus; currently on ASA, clopidogrel, and warfarin), ESRD ( hemodialysis since 11/2017), diastolic CHF, HTN, HLD, s/p GI Bleed, Anxiety, and Diabetes Mellitus. Cardio: CAD, CHF, HLD 4 second asystolic period preceded by Atrial Flutter yesterday 02/17 2-3 second asystolic episode today 02/18 during HD. Cardizem gtt wittheld -Cardizem gtt, temporarily withed due to pt's asystolic episode. -Carvidilol 12.5 mg PO BID switched to lopressor per Dr Moreno -Warfarin 4 mg po daily--> Left Ventricular Thrombus -ASA 81 MG PO Daily -Dr Moreno on board Renal: CKD ESRD on HD with Hyperkalemia -HD today, stopped prematule due to rhythm. HD tomorrow 02/18. - Midodrine 7.5 MG PO BID for BP - HD tomorrow - K 4.5 this am. Continue to monitor electrolytes. -Dr Del Cid on board ENDO- DM2 Novolog Vial Sliding Scale [address] Villegas on board I.D-Possible Aspiration Pneumonia -Zosyn 50 mls @ 100 mls/hr IVPB BID 02/17/18 Xray--> B/L Pulmonary and Pleural changes increased since prior xray 02/18--> b/l pulmonary and pleural changes diminished slightly. FEN No Fluids Monitor Electrolytes Diabetic/Sodium diet DVT ppx: SCD's Dispo: Continue to monitor in icu. Visit type - Emergency Visit Emergency Visit: Yes ED Registration Date: 02/13/18 Care time: The patient presented to the Emergency Department on the above date and was hospitalized for further evaluation of their emergent condition. - New Patient This patient is new to me today: No - Critical Care Critical Care patient: Yes Total Critical Care Time (in minutes): 35 Critical Care Statement: The care of this patient involved high complexity decision making to prevent further life threatening deterioration of the patient 's condition and/or to evaluate & treat vital organ system(s) failure or risk of failure.
[2018-02-19] MEDS: METOPROLOL TARTRATE 25 MG TABLET (FP) PO SCH ×3 (06:07→17:17)
[2018-02-19] MEDS: INSULIN SLIDING SCALE (NOVOLOG) 1 VIAL SQ SCH ×4 (06:21→21:18)
[2018-02-19] MEDS ORDERED: SODIUM CHLORIDE 250 ML IV PRN (06:33)
[2018-02-19 06:58] LABS: HEMATOCRIT 30.5 % (35.4-49); HEMOGLOBIN 9.7 GM/dL (11.7-16.9); MCH 27.4 pg (25.7-33.7); MCHC 31.8 g/dl (32.0-35.9); MEAN CELL VOLUME 86.1 fl (80-96); MEAN PLT VOLUME 10.2 fl (7.5-11.1); PLATELET COUNT 91 K/MM3 (134-434); RBC 3.54 M/mm3 (4.00-5.60); RDW 19.6 % (11.9-15.9)
[2018-02-19 07:01] LABS: PROTHROMBIN TIME (PATIENT) 52.2 SEC (9.7-13.0)
[2018-02-19 07:10] LABS: ALBUMIN 2.2 g/dl (3.4-5.0); ANION GAP 10 MMOL/L (8-16); BLOOD UREA NITROGEN 54 mg/dL (7-18); CALCIUM 7.9 mg/dL (8.5-10.1); CHLORIDE 101 mmol/L (98-107); CO2 29 mmol/L (21-32); CREATININE 3.3 mg/dL (0.7-1.3); GLUCOSE,RANDOM 256 mg/dL (74-106); MAGNESIUM 2.2 mg/dL (1.8-2.4); PHOSPHOROUS 3.5 mg/dL (2.5-4.9); POTASSIUM 4.7 mmol/L (3.5-5.1); SGOT/AST 377 U/L (15-37); SODIUM 140 mmol/L (136-145)
[2018-02-19 07:11] LABS: ALK PHOS 118 U/L (45-117); BILIRUBIN,TOTAL 0.8 mg/dL (0.2-1.0); TOT PROT 4.9 g/dl (6.4-8.2)
[2018-02-19 07:17] LABS: SGPT/ALT 540 U/L (12-78)
[2018-02-19 07:27] LABS: INR 4.62 (0.83-1.09)
[2018-02-19] MEDS ORDERED: PT OWN MED DRAWER 7, Y5N ONE ×3 (09:02→16:07)
[2018-02-19] MEDS ORDERED: PIPERACILLIN/TAZOBACTAM 2.25 GM VIAL IVPB ONE ×2 (09:02→21:11)
[2018-02-19] MEDS ORDERED: DEXTROSE 5%-WATER - 50 ML IVPB ONE ×2 (09:02→21:11)
[2018-02-19] MEDS: PANTOPRAZOLE 40 MG TABLET (FP) PO SCH (09:32)
[2018-02-19] MEDS: CALCIUM ACETATE 667 MG CAPSULE (FP) PO SCH ×3 (09:32→17:22)
[2018-02-19] MEDS: ASPIRIN COATED 81 MG TABLET.EC PO SCH (09:32)
[2018-02-19] MEDS: MIDODRINE HCL 5 MG, MIDODRINE HCL 2.5 MG PO SCH ×2 (09:33→16:19)
[2018-02-19] MEDS: PIPERACILLIN/TAZOB 2.25 GM 2.25 GM in DEXTROSE 5%-WATER - 50 ML IVPB SCH ×2 (09:35→21:17)
[2018-02-19] MEDS ORDERED: INSULIN (LEVEMIR) 100 UNITS/ML UNITS SQ ONE (09:45)
[2018-02-19] MEDS: ALBUMIN HUMAN 25% 12.5 GM/50 ML VIAL IVPB SCH ×3 (10:03→10:05)
[2018-02-19] MEDS: LACTOBACILLUS ACIDOPHILUS 1 TABLET PO SCH (10:13)
[2018-02-19] MEDS: POLYETHYLENE GLYCOL 3350 119 GM BTL PO SCH (10:13)
--- NOTE | 2018-02-19 11:01 | PN ---
Teaching Attending Note Name of Resident: Nura Garrison ATTENDING PHYSICIAN STATEMENT I saw and evaluated the patient. I reviewed the resident's note and discussed the case with the resident. I agree with the resident's findings and plan as documented. SUBJECTIVE: Pt seen and examined in the ICU. Tolerated HD today without arrhythmias. Still with nonproductive cough but without shortness of breath, cough or palpitations. Remains in sinus rhythm. OBJECTIVE: Vital Signs Period Temp Pulse Resp BP Sys/Simons Pulse Ox Last 24 Hr 97.5 F-98.2 F 65-124 12-19 85-110/38-82 98-100 Intake & Output 02/16/18 02/17/18 02/18/18 02/19/18 23:59 23:59 23:59 23:59 Intake Total 20 1094 315 50 Output Total 0 0 0 0 Balance 20 1094 315 50 Weight 67.16 kg 66.82 kg 69.655 kg 71 kg Gen: NAD at rest, weak appearing Heart: RRR Lung: decreased breath sounds at the bases Abd: soft, nontender Ext: no edema CBC, BMP 02/19/18 05:30 02/19/18 05:30 INR, PTT INR 4.62 (0.83-1.09) H* 02/19/18 05:30 Active Medications Albuterol/Ipratropium (Duoneb -) 1 amp NEB Q6H PRN PRN Reason: SHORTNESS OF BREATH Last Admin: 02/18/18 20:15 Dose: 1 amp Aspirin (Ecotrin -) 81 mg PO DAILY [facility] Last Admin: 02/19/18 09:32 Dose: 81 mg Calcium Acetate (Phoslo -) 667 mg PO TIDCM [facility] Last Admin: 02/19/18 09:32 Dose: 667 mg Escitalopram Oxalate (Lexapro -) 5 mg PO HS [facility] Last Admin: 02/18/18 21:15 Dose: 5 mg Guaifenesin (Diabetic Tussin Dm -) 10 ml PO Q6H PRN PRN Reason: COUGH Last Admin: 02/18/18 11:29 Dose: 10 ml Piperacillin Sod/Tazobactam (Sod 2.25 gm/ Dextrose) 50 mls @ 100 mls/hr IVPB BID [facility]; Protocol Last Admin: 02/19/18 09:35 Dose: 100 mls/hr Sodium Chloride (Normal Saline -) 250 mls @ 3,000 mls/hr IV PRN PRN PRN Reason: Hypotension during Dialysis Stop: 02/20/18 06:32 Insulin Aspart (Novolog Vial Sliding Scale -) 1 vial SQ TIDAC [facility]; Protocol Last Admin: 02/19/18 06:21 Dose: 6 units Insulin Aspart (Novolog Vial Sliding Scale -) 1 vial SQ HS [facility]; Protocol Last Admin: 02/18/18 21:30 Dose: Not Given Lactobacillus Acidophilus (Bacid -) 1 tab PO DAILY [facility] Last Admin: 02/19/18 10:13 Dose: 1 tab Metoprolol Tartrate (Lopressor -) 12.5 mg PO Q6HPO [facility] Last Admin: 02/19/18 06:07 Dose: 12.5 mg Midodrine 5 mg/ Midodrine 2.5 (mg) 7.5 mg PO TID-MID [facility] Last Admin: 02/19/18 09:33 Dose: 7.5 mg Pantoprazole Sodium (Protonix -) 40 mg PO DAILY [facility] Last Admin: 02/19/18 09:32 Dose: 40 mg Polyethylene Glycol (Miralax (For Daily Use) -) 17 gm PO DAILY [facility] Last Admin: 02/19/18 10:13 Dose: 17 grams Tamsulosin HCl (Flomax -) 0.4 mg PO [facility] Last Admin: 02/18/18 21:15 Dose: 0.4 mg Warfarin Sodium (Coumadin -) 4 mg PO DAILY@1800 [facility] ASSESSMENT AND PLAN: Syncope Sinus Pause Paroxysmal Atrial Fibrillation with RVR now in sinus rhythm CAD LV Diastolic Dysfunction HTN Hyperlipidemia DM LV thrombus h/o CVA ESRD on HD - rate control with metoprolol - continue anticoagulation with target INR 2-3 - HD per renal with UF as tolerated - cough suppressants - glucose control - on empiric antibiotics per ID - o2 to keep Spo2 >90% - continue ICU monitoring for now
[2018-02-19] MEDS ORDERED: MAGNESIUM OXIDE 400 MG TABLET (FP) PO ONE (11:30)
--- NOTE | 2018-02-19 12:12 | PN ---
Physical Exam: SUBJECTIVE: Patient seen and examined this am in icu. Received HD this am. Resting in bed comfortably. C/o dry cough. Dr Davila at bedside. Denies cp or sob. OBJECTIVE: Vital Signs Period Temp Pulse Resp BP Sys/Simons Pulse Ox Last 24 Hr 97.5 F-98.2 F 65-106 12-19 85-110/38-82 98-100 GENERAL: AAOx3. NAD. HEAD: NC/AT EYES: EOMI. ENT: MMM NECK: No JVD. LUNGS: B/L rhonchi. HEART: RRR ABDOMEN: NT, ND, No HSM EXTREMITIES: No CCE NEUROLOGICAL: No Neuro Deficits observed PSYCH: Normal mood, normal affect. SKIN: No Rashes appreciated. Laboratory Results - last 24 hr 02/18/18 02/18/18 02/18/18 05:17 11:48 15:54 WBC RBC Hgb Hct MCV MCH MCHC RDW Plt Count MPV PT with INR INR PTT (Actin FS) Sodium Potassium Chloride Carbon Dioxide Anion Gap BUN Creatinine Creat Clearance w eGFR POC Glucometer [phone] > 400 > 400 Random Glucose Calcium Phosphorus Magnesium Total Bilirubin AST ALT Alkaline Phosphatase Total Protein Albumin 02/18/18 02/18/18 02/19/18 18:27 21:24 05:30 WBC 8.0 RBC 3.54 L Hgb 9.7 L Hct 30.5 L MCV 86.1 MCH 27.4 MCHC 31.8 L RDW 19.6 H Plt Count 91 L MPV 10.2 PT with INR INR PTT (Actin FS) Sodium Potassium Chloride Carbon Dioxide Anion Gap BUN Creatinine Creat Clearance w eGFR POC Glucometer > 400 > 400 Random Glucose Calcium Phosphorus Magnesium Total Bilirubin AST ALT Alkaline Phosphatase Total Protein Albumin 02/19/18 02/19/18 02/19/18 05:30 05:30 05:30 WBC RBC Hgb Hct MCV MCH MCHC RDW Plt Count MPV PT with INR 52.20 H INR 4.62 H* PTT (Actin FS) 41.0 H Sodium 140 Potassium 4.7 Chloride 101 Carbon Dioxide 29 Anion Gap 10 BUN 54 H Creatinine 3.3 H Creat Clearance w eGFR 18.22 POC Glucometer Random Glucose 256 H Calcium 7.9 L Phosphorus 3.5 Magnesium 2.2 Total Bilirubin 0.8 AST 377 H D ALT 540 H Alkaline Phosphatase 118 H Total Protein 4.9 L Albumin 2.2 L 02/19/18 02/19/18 06:20 10:26 WBC RBC Hgb Hct MCV MCH MCHC RDW Plt Count MPV PT with INR INR PTT (Actin FS) Sodium Potassium Chloride Carbon Dioxide Anion Gap BUN Creatinine Creat Clearance w eGFR POC Glucometer [phone] Random Glucose Calcium Phosphorus Magnesium Total Bilirubin AST ALT Alkaline Phosphatase Total Protein Albumin Active Medications Generic Name Dose Route Start Last Admin Trade Name Freq PRN Reason Stop Dose Admin Albuterol/Ipratropium 1 amp 02/14/18 12:11 02/18/18 20:15 Duoneb - NEB 1 amp Q6H PRN Administration SHORTNESS OF BREATH Aspirin 81 mg 02/15/18 10:00 02/19/18 09:32 Ecotrin - PO 81 mg DAILY [facility] Administration Calcium Acetate 667 mg 02/14/18 17:30 02/19/18 09:32 Phoslo - PO 667 mg TIDCM [facility] Administration Escitalopram Oxalate 5 mg 02/13/18 22:00 02/18/18 21:15 Lexapro - PO 5 mg HS [facility] Administration Guaifenesin 10 ml 02/17/18 13:13 02/18/18 11:29 Diabetic Tussin Dm - PO 10 ml Q6H PRN Administration COUGH Piperacillin Sod/Tazobactam 50 mls @ 100 mls/hr 02/16/18 17:29 02/19/18 09:35 Sod 2.25 gm/ Dextrose IVPB 100 mls/hr BID [facility] Administration Protocol Sodium Chloride 250 mls @ 3,000 mls/hr 02/19/18 06:33 Normal Saline - IV 02/20/18 06:32 PRN PRN Hypotension during Dialysis Insulin Aspart 1 vial 02/18/18 11:55 02/19/18 06:21 Novolog Vial Sliding Scale - SQ 6 units TIDAC [facility] Administration Protocol Insulin Aspart 1 vial 02/18/18 22:00 02/18/18 21:30 Novolog Vial Sliding Scale - SQ Not Given HS [facility] Protocol Lactobacillus Acidophilus 1 tab 02/19/18 10:00 02/19/18 10:13 Bacid - PO 1 tab DAILY [facility] Administration Metoprolol Tartrate 12.5 mg 02/19/18 06:00 02/19/18 06:07 Lopressor - PO 12.5 mg Q6HPO [facility] Administration Midodrine 5 mg/ Midodrine 2.5 7.5 mg 02/19/18 10:00 02/19/18 09:33 mg PO 7.5 mg TID-MID [facility] Administration Pantoprazole Sodium 40 mg 02/14/18 10:00 02/19/18 09:32 Protonix - PO 40 mg DAILY [facility] Administration Polyethylene Glycol 17 gm 02/17/18 20:15 02/19/18 10:13 Miralax (For Daily Use) - PO 17 grams DAILY [facility] Administration Tamsulosin HCl 0.4 mg 02/13/18 22:00 02/18/18 21:15 Flomax - PO 0.4 mg HS [facility] Administration Warfarin Sodium 4 mg 02/18/18 18:00 Coumadin - PO DAILY@1800 [facility] ASSESSMENT/PLAN: Patient is a 77 year old male (b. [place]), with PMHx of CVA, DM, CAD (MT--> 5 coronary stents at [facility] 08/17, with subsequent renal failure and ventricular thrombus; currently on ASA, clopidogrel, and warfarin), ESRD ( hemodialysis since 11/2017), diastolic CHF, HTN, HLD, s/p GI Bleed, Anxiety, and Diabetes Mellitus. Cardio: CAD, CHF, HLD 4 second asystolic period preceded by Atrial Flutter 02/17 2-3 second asystolic episode yesterday 02/18 during HD. Cardizem gtt wittheld -Cardizem gtt, temporarily withed due to pt's asystolic episode. Lopressor 12.5 mg po q6h per Dr Moreno -Warfarin 4 mg po daily--> Left Ventricular Thrombus. Currently on hold d/t INR 4.62. Target INR 2-3 -ASA 81 MG PO Daily -Dr Moreno on board Renal: CKD ESRD on HD with Hyperkalemia -HD today. Tolerated well. No Acute events. - Midodrine 7.5 MG PO BID for BP - K 4.7 this am. Continue to monitor electrolytes. -Dr Del Cid on board ENDO- DM2 Novolog Vial Sliding Scale 1 vial SQ ACHS Received Levemir [address] Villegas on board I.D-Possible Aspiration Pneumonia -Zosyn 50 mls @ 100 mls/hr IVPB BID 02/18--> b/l pulmonary and pleural changes diminished slightly. FEN No Fluids Monitor Electrolytes Diabetic/Sodium diet DVT ppx: SCD's Dispo: Continue to monitor in icu. Visit type - Emergency Visit Emergency Visit: Yes ED Registration Date: 02/13/18 Care time: The patient presented to the Emergency Department on the above date and was hospitalized for further evaluation of their emergent condition. - New Patient This patient is new to me today: No - Critical Care Critical Care patient: Yes Total Critical Care Time (in minutes): 35 Critical Care Statement: The care of this patient involved high complexity decision making to prevent further life threatening deterioration of the patient 's condition and/or to evaluate & treat vital organ system(s) failure or risk of failure.
--- NOTE | 2018-02-19 12:29 | PN ---
Progress Note (short form) - Note Progress Note: Tolerated dialysis today, BGM 200s. Vital Signs Period Temp Pulse Resp BP Sys/Simons Pulse Ox Last 24 Hr 97.5 F-98.2 F 65-106 12-19 85-110/38-82 98-100 PE: Drowsy, arousable Neck: Supple HEENT: EOMI Lungs:CTA CVS: S1S2 Abd: Benign Ext: No edema CMP Sodium 140 mmol/L (136-145) 02/19/18 05:30 Potassium 4.7 mmol/L (3.5-5.1) 02/19/18 05:30 Chloride 101 mmol/L (98-107) 02/19/18 05:30 Carbon Dioxide 29 mmol/L (21-32) 02/19/18 05:30 Anion Gap 10 MMOL/L (8-16) 02/19/18 05:30 BUN 54 mg/dL (7-18) H 02/19/18 05:30 Creatinine 3.3 mg/dL (0.7-1.3) H 02/19/18 05:30 Creat Clearance w eGFR 18.22 (>60) 02/19/18 05:30 POC Glucometer 253.31075 UNITS (80-120) 02/19/18 10:26 Random Glucose 256 mg/dL (74-106) H 02/19/18 05:30 Lactic Acid 1.5 mmol/L (0.0-2.0) 02/13/18 05:30 Calcium 7.9 mg/dL (8.5-10.1) L 02/19/18 05:30 Phosphorus 3.5 mg/dL (2.5-4.9) 02/19/18 05:30 Magnesium 2.2 mg/dL (1.8-2.4) 02/19/18 05:30 Total Bilirubin 0.8 mg/dL (0.2-1.0) 02/19/18 05:30 AST 377 U/L (15-37) H D 02/19/18 05:30 ALT 540 U/L (12-78) H 02/19/18 05:30 Alkaline Phosphatase 118 U/L (45-117) H 02/19/18 05:30 Creatine Kinase 38 IU/L (39-308) L 02/17/18 05:30 Troponin I 0.06 ng/ml (0.00-0.05) H D 02/17/18 05:30 Total Protein 4.9 g/dl (6.4-8.2) L 02/19/18 05:30 Albumin 2.2 g/dl (3.4-5.0) L 02/19/18 05:30 Total Amylase 67 U/L (25-115) 02/12/18 23:40 Lipase 236 U/L (73-393) 02/12/18 23:40 TSH 6.01 uIU/ml (0.358-3.74) H D 02/17/18 05:30 Current Medications Generic Name Dose Route Start Last Admin Trade Name Freq PRN Reason Stop Dose Admin Albuterol/Ipratropium 1 amp 02/14/18 12:11 02/18/18 20:15 Duoneb - NEB 1 amp Q6H PRN Administration SHORTNESS OF BREATH Aspirin 81 mg 02/15/18 10:00 02/19/18 09:32 Ecotrin - PO 81 mg DAILY [facility] Administration Calcium Acetate 667 mg 02/14/18 17:30 02/19/18 09:32 Phoslo - PO 667 mg TIDCM [facility] Administration Escitalopram Oxalate 5 mg 02/13/18 22:00 02/18/18 21:15 Lexapro - PO 5 mg HS [facility] Administration Guaifenesin 10 ml 02/17/18 13:13 02/18/18 11:29 Diabetic Tussin Dm - PO 10 ml Q6H PRN Administration COUGH Piperacillin Sod/Tazobactam 50 mls @ 100 mls/hr 02/16/18 17:29 02/19/18 09:35 Sod 2.25 gm/ Dextrose IVPB 100 mls/hr BID [facility] Administration Protocol Sodium Chloride 250 mls @ 3,000 mls/hr 02/19/18 06:33 Normal Saline - IV 02/20/18 06:32 PRN PRN Hypotension during Dialysis Insulin Aspart 1 vial 02/18/18 11:55 02/19/18 06:21 Novolog Vial Sliding Scale - SQ 6 units TIDAC [facility] Administration Protocol Insulin Aspart 1 vial 02/18/18 22:00 02/18/18 21:30 Novolog Vial Sliding Scale - SQ Not Given HS [facility] Protocol Lactobacillus Acidophilus 1 tab 02/19/18 10:00 02/19/18 10:13 Bacid - PO 1 tab DAILY [facility] Administration Metoprolol Tartrate 12.5 mg 02/19/18 06:00 02/19/18 06:07 Lopressor - PO 12.5 mg Q6HPO [facility] Administration Midodrine 5 mg/ Midodrine 2.5 7.5 mg 02/19/18 10:00 02/19/18 09:33 mg PO 7.5 mg TID-MID [facility] Administration Pantoprazole Sodium 40 mg 02/14/18 10:00 02/19/18 09:32 Protonix - PO 40 mg DAILY [facility] Administration Polyethylene Glycol 17 gm 02/17/18 20:15 02/19/18 10:13 Miralax (For Daily Use) - PO 17 grams DAILY [facility] Administration Tamsulosin HCl 0.4 mg 02/13/18 22:00 02/18/18 21:15 Flomax - PO 0.4 mg HS [facility] Administration Warfarin Sodium 4 mg 02/18/18 18:00 Coumadin - PO DAILY@1800 [facility] AP: T2DM with hyperlgycemia ESRD S/P Asystole of 4 sec CAD H/O CVA Possible Aspiration Pneumonia Blood sugar goal around 200 to avoid hypoglycemia as pt has frequent hypoglycemia at home especially at night. Option Insulin drip discussed with family who want to continue with current basal/bolus regimen for now. BGM QACHS and 3 AM Got Levemir 16 units today Novolog ss coverage Will f/u Problem List - Problems (1) Chronic diastolic (congestive) heart failure Code(s): I50.32 - CHRONIC DIASTOLIC (CONGESTIVE) HEART FAILURE (2) Hip hematoma, left Code(s): S70.02XA - CONTUSION OF LEFT HIP, INITIAL ENCOUNTER Qualifiers: Encounter type: subsequent encounter Qualified Code(s): S70.02XD - Contusion of left hip, subsequent encounter (3) Hypotension Code(s): I95.9 - HYPOTENSION, UNSPECIFIED (4) Vomiting Code(s): R11.10 - VOMITING, UNSPECIFIED (5) ESRD (end stage renal disease) on dialysis Code(s): N18.6 - END STAGE RENAL DISEASE; Z99.2 - DEPENDENCE ON RENAL DIALYSIS
--- NOTE | 2018-02-19 14:56 | PN ---
Progress Note (short form) - Note Progress Note: VAscular surgery Pt seen and examined. Suture removed from left avf site. Can start using avf with one needle at next HD session. I spoke to the HD nurses about this. Once two needles can be placed, will remove right IJ pc. Left hip hematoma is stable. No need for evacuation. Will take a month to resorb. Walter Huff DO
--- NOTE | 2018-02-19 17:26 | PN ---
Progress Note (short form) - Note Progress Note: Renal follow up for ESRD on HD Pt seen and examined in the ICU awake and alert but groggy s/p dialysis this am, tolerated it well, mild tachycardia UF of 2L achieved on Metoprolol IV for rate control Vital Signs Temperature 97.6 F 02/19/18 14:31 Pulse Rate 72 02/19/18 16:00 Respiratory Rate 17 02/19/18 16:00 Blood Pressure 100/50 02/19/18 16:00 O2 Sat by Pulse Oximetry (%) 98 02/19/18 08:45 Intake & Output 02/16/18 02/17/18 02/18/18 02/19/18 23:59 23:59 23:59 23:59 Intake Total 20 1094 315 300 Output Total 0 0 0 0 Balance 20 1094 315 300 Weight 67.16 kg 66.82 kg 69.655 kg 71 kg NAD awake and alert RRR, No M/R Dec BS at the lung bases soft NT/ND Left hip hematoma Trace edema CBC, BMP 02/19/18 05:30 02/19/18 05:30 Current Medications Albuterol/Ipratropium (Duoneb -) 1 amp NEB Q6H PRN PRN Reason: SHORTNESS OF BREATH Last Admin: 02/18/18 20:15 Dose: 1 amp Aspirin (Ecotrin -) 81 mg PO DAILY [facility] Last Admin: 02/19/18 09:32 Dose: 81 mg Calcium Acetate (Phoslo -) 667 mg PO TIDCM [facility] Last Admin: 02/19/18 12:33 Dose: 667 mg Escitalopram Oxalate (Lexapro -) 5 mg PO HS [facility] Last Admin: 02/18/18 21:15 Dose: 5 mg Guaifenesin (Diabetic Tussin Dm -) 10 ml PO Q6H PRN PRN Reason: COUGH Last Admin: 02/18/18 11:29 Dose: 10 ml Piperacillin Sod/Tazobactam (Sod 2.25 gm/ Dextrose) 50 mls @ 100 mls/hr IVPB BID [facility]; Protocol Last Admin: 02/19/18 09:35 Dose: 100 mls/hr Sodium Chloride (Normal Saline -) 250 mls @ 3,000 mls/hr IV PRN PRN PRN Reason: Hypotension during Dialysis Stop: 08/24/18 06:32 Insulin Aspart (Novolog Vial Sliding Scale -) 1 vial SQ TIDAC [facility]; Protocol Last Admin: 02/19/18 12:34 Dose: 6 units Insulin Aspart (Novolog Vial Sliding Scale -) 1 vial SQ HS [facility]; Protocol Last Admin: 02/18/18 21:30 Dose: Not Given Lactobacillus Acidophilus (Bacid -) 1 tab PO DAILY [facility] Last Admin: 02/19/18 10:13 Dose: 1 tab Metoprolol Tartrate (Lopressor -) 12.5 mg PO Q6HPO [facility] Last Admin: 02/19/18 12:37 Dose: Not Given Midodrine 5 mg/ Midodrine 2.5 (mg) 7.5 mg PO TID-MID [facility] Last Admin: 02/19/18 16:19 Dose: 7.5 mg Pantoprazole Sodium (Protonix -) 40 mg PO DAILY [facility] Last Admin: 02/19/18 09:32 Dose: 40 mg Polyethylene Glycol (Miralax (For Daily Use) -) 17 gm PO DAILY [facility] Last Admin: 02/19/18 10:13 Dose: 17 grams Tamsulosin HCl (Flomax -) 0.4 mg PO [facility] Last Admin: 02/18/18 21:15 Dose: 0.4 mg Warfarin Sodium (Coumadin -) 4 mg PO DAILY@1800 [facility] 77 year old gentleman with Hx of ESRD on HD (started this year), CAD s/p PCI, Hypertension, Hyperlipidemia, CHF, Left Ventricular Thrombus on Coumadin who presented from home with weakness and hypotension. #Weakness/Hypotension r/o worsening anemia vs. CHF vs. infection #ESRD on HD with Hyperkalemia #Ventricular Thrombus #Anemia #Hip Hematoma w/o fracture #New Aflutter with RVR tolerated HD with UF today, will need additional UF tomorrow if pt unable to tolerate UF because of hypotension or tachyarrythmia may need transfer for CVVHD Cardiology following, may need possible ablation/PPM Trend CBC, will continue AMY with HD continue midodrine to 10mg Q8h, keep MAP > 70 hold phos binder for now Florencio Del Cid DO
--- NOTE | 2018-02-19 18:59 | PN ---
Progress Note (short form) - Note Progress Note: covering ICU medical note for Dr Hess Current Medications Albuterol/Ipratropium (Duoneb -) 1 amp NEB Q6H PRN PRN Reason: SHORTNESS OF BREATH Last Admin: 02/18/18 20:15 Dose: 1 amp Aspirin (Ecotrin -) 81 mg PO DAILY [facility] Last Admin: 02/19/18 09:32 Dose: 81 mg Escitalopram Oxalate (Lexapro -) 5 mg PO HS [facility] Last Admin: 02/18/18 21:15 Dose: 5 mg Guaifenesin (Diabetic Tussin Dm -) 10 ml PO Q6H PRN PRN Reason: COUGH Last Admin: 02/18/18 11:29 Dose: 10 ml Piperacillin Sod/Tazobactam (Sod 2.25 gm/ Dextrose) 50 mls @ 100 mls/hr IVPB BID [facility]; Protocol Last Admin: 02/19/18 09:35 Dose: 100 mls/hr Sodium Chloride (Normal Saline -) 250 mls @ 3,000 mls/hr IV PRN PRN PRN Reason: Hypotension during Dialysis Stop: 02/20/18 06:32 Insulin Aspart (Novolog Vial Sliding Scale -) 1 vial SQ HS [facility]; Protocol Last Admin: 02/18/18 21:30 Dose: Not Given Insulin Aspart (Novolog Vial Sliding Scale -) 1 vial SQ TIDAC [facility]; Protocol Lactobacillus Acidophilus (Bacid -) 1 tab PO DAILY [facility] Last Admin: 02/19/18 10:13 Dose: 1 tab Metoprolol Tartrate (Lopressor -) 12.5 mg PO Q6HPO [facility] Last Admin: 02/19/18 17:17 Dose: Not Given Midodrine (Proamatine -) 10 mg PO TID-MID [facility] Pantoprazole Sodium (Protonix -) 40 mg PO DAILY [facility] Last Admin: 02/19/18 09:32 Dose: 40 mg Polyethylene Glycol (Miralax (For Daily Use) -) 17 gm PO DAILY [facility] Last Admin: 02/19/18 10:13 Dose: 17 grams Tamsulosin HCl (Flomax -) 0.4 mg PO HS [facility] Last Admin: 02/18/18 21:15 Dose: 0.4 mg Warfarin Sodium (Coumadin -) 4 mg PO DAILY@1800 [facility] Laboratory Results - last 24 hr 02/18/18 02/18/18 02/18/18 05:17 11:48 15:54 WBC RBC Hgb Hct MCV MCH MCHC RDW Plt Count MPV PT with INR INR PTT (Actin FS) Sodium Potassium Chloride Carbon Dioxide Anion Gap BUN Creatinine Creat Clearance w eGFR POC Glucometer 354.93886 > 400 > 400 Random Glucose Calcium Phosphorus Magnesium Total Bilirubin AST ALT Alkaline Phosphatase Total Protein Albumin 02/18/18 02/18/18 02/19/18 18:27 21:24 05:30 WBC 8.0 RBC 3.54 L Hgb 9.7 L Hct 30.5 L MCV 86.1 MCH 27.4 MCHC 31.8 L RDW 19.6 H Plt Count 91 L MPV 10.2 PT with INR INR PTT (Actin FS) Sodium Potassium Chloride Carbon Dioxide Anion Gap BUN Creatinine Creat Clearance w eGFR POC Glucometer > 400 > 400 Random Glucose Calcium Phosphorus Magnesium Total Bilirubin AST ALT Alkaline Phosphatase Total Protein Albumin 02/19/18 02/19/18 02/19/18 05:30 05:30 05:30 WBC RBC Hgb Hct MCV MCH MCHC RDW Plt Count MPV PT with INR 52.20 H INR 4.62 H* PTT (Actin FS) 41.0 H Sodium 140 Potassium 4.7 Chloride 101 Carbon Dioxide 29 Anion Gap 10 BUN 54 H Creatinine 3.3 H Creat Clearance w eGFR 18.22 POC Glucometer Random Glucose 256 H Calcium 7.9 L Phosphorus 3.5 Magnesium 2.2 Total Bilirubin 0.8 AST 377 H D ALT 540 H Alkaline Phosphatase 118 H Total Protein 4.9 L Albumin 2.2 L 02/19/18 02/19/18 02/19/18 06:20 10:26 12:20 WBC RBC Hgb Hct MCV MCH MCHC RDW Plt Count MPV PT with INR INR PTT (Actin FS) Sodium Potassium Chloride Carbon Dioxide Anion Gap BUN Creatinine Creat Clearance w eGFR POC Glucometer 278.64641 253.93605 287.51663 Random Glucose Calcium Phosphorus Magnesium Total Bilirubin AST ALT Alkaline Phosphatase Total Protein Albumin 02/19/18 17:17 WBC RBC Hgb Hct MCV MCH MCHC RDW Plt Count MPV PT with INR INR PTT (Actin FS) Sodium Potassium Chloride Carbon Dioxide Anion Gap BUN Creatinine Creat Clearance w eGFR POC Glucometer > 400 Random Glucose Calcium Phosphorus Magnesium Total Bilirubin AST ALT Alkaline Phosphatase Total Protein Albumin Vital Signs Temp 97.6 F 02/19/18 14:31 Pulse 72 02/19/18 16:00 Resp 17 02/19/18 16:00 BP 100/50 02/19/18 16:00 Pulse Ox 98 02/19/18 08:45 Intake & Output 02/18/18 02/19/18 02/19/18 23:59 11:59 23:59 Intake Total 50 50 250 Output Total 0 0 Balance 50 50 250 Weight 156 lb 8.451 oz Intake: IVPB 50 50 50 Oral 200 Output: Urine 0 0 Void 0 0 Other: Voiding Method Incontinent Incontinent Diaper Bowel Movement No No No Body Mass Index (BMI) 24.7 Weight Measurement Method Built in [facility] CC; None ````````````````` skin--ecchymosis L thigh eyes--non injected; eomi lungs--diminished breaths bilat heart--RR abd--soft ext--trace edema of the LE neuro--awake; able to greet people, and can verbalize but with impaired sensorium; is able to follow some commands but listless for most part ``````````````````````````````````````````````` Summ > SVT--seems to under control now, but low BP has persisted, and did not have SVT today during UF > Hypotension--mulitfactorial; has hampered dialysis and volume control; now somewhat improved with Midodrine. > ESRD--on HD, but has had to be attenuated due to low BP state > anemia--H/h stable > high Transaminases--now trending downward; cause not likely to be hepatitis but rather rt sided heart failure in face of low BP; will check daily; might US if persistently high > CAD-- post angioplasty, ventricular thrombus, on Plavix, asa, warf on hold due to high INR > DM--see endocrine note > Hematoma left thigh and hip --due to a fall, no Fx > Asp PNA--seen by ID; on zosyn > CHF--2nd volume overload; hope to resume dialysis once BP sufficiently high ~~~~~~~~~~~~~~~ Dr Jean......for Dr Hess
[2018-02-19] MEDS: MIDODRINE HCL 5 MG TABLET PO SCH (19:03)
[2018-02-19] MEDS ORDERED: Insulin (LOG) Aspart 100 UNITS/ML VIAL SQ ONE (21:17)
[2018-02-19] MEDS: TAMSULOSIN HCL 0.4 MG CAP.ER.24H (FP) PO SCH (21:17)
[2018-02-19] MEDS: ESCITALOPRAM OXALATE 10 MG TABLET (FP) PO SCH (21:17)
[2018-02-20] MEDS: METOPROLOL TARTRATE 25 MG TABLET (FP) PO SCH ×4 (02:36→17:45)
[2018-02-20] MEDS ORDERED: PT OWN MED DRAWER 7, Y5N ONE ×4 (02:53→17:43)
[2018-02-20 06:11] LABS: HEMOGLOBIN 9.9 GM/dL (11.7-16.9); MCH 27.8 pg (25.7-33.7); MCHC 31.8 g/dl (32.0-35.9); MEAN CELL VOLUME 87.2 fl (80-96); MEAN PLT VOLUME 9.9 fl (7.5-11.1); PLATELET COUNT 98 K/MM3 (134-434); RBC 3.55 M/mm3 (4.00-5.60); RDW 18.9 % (11.9-15.9); WHITE BLOOD COUNT 7.7 K/mm3 (4.0-10.0)
[2018-02-20] MEDS: INSULIN SLIDING SCALE (NOVOLOG) 1 VIAL SQ SCH ×5 (06:28→21:14)
[2018-02-20 06:38] LABS: CHLORIDE 103 mmol/L (98-107); POTASSIUM 4.4 mmol/L (3.5-5.1); SODIUM 142 mmol/L (136-145)
[2018-02-20 06:47] LABS: ALBUMIN 2.3 g/dl (3.4-5.0); ALK PHOS 114 U/L (45-117); ANION GAP 6 MMOL/L (8-16); BILIRUBIN,TOTAL 0.8 mg/dL (0.2-1.0); BLOOD UREA NITROGEN 31 mg/dL (7-18); CALCIUM 7.7 mg/dL (8.5-10.1); CO2 33 mmol/L (21-32); CREATININE 2.6 mg/dL (0.7-1.3); GLUCOSE,RANDOM 201 mg/dL (74-106); MAGNESIUM 2.1 mg/dL (1.8-2.4); PHOSPHOROUS 2.5 mg/dL (2.5-4.9); SGOT/AST 353 U/L (15-37); TOT PROT 5.1 g/dl (6.4-8.2)
[2018-02-20 06:51] LABS: SGPT/ALT 572 U/L (12-78)
[2018-02-20] MEDS ORDERED: PIPERACILLIN/TAZOBACTAM 2.25 GM VIAL IVPB ONE (08:06)
[2018-02-20] MEDS ORDERED: DEXTROSE 5%-WATER - 50 ML IVPB ONE (08:07)
--- NOTE | 2018-02-20 08:48 | PN ---
Progress Note (short form) - Note Progress Note: awake, no complaints alert eating breakfast much stronger today! still with cough Vital Signs Period Temp Pulse Resp BP Sys/Simons Pulse Ox Last 24 Hr 97.6 F-99 F 59-75 13-19 91-132/38-74 98-98 cor-rrr lungs decreased bs at bases abd soft,nt ext no edema CBC, BMP 02/20/18 05:30 02/20/18 05:30 Microbiology 02/15/18 16:50 Blood - Peripheral Venous Blood Culture - Preliminary NO GROWTH OBTAINED AFTER 96 HOURS, INCUBATION TO CONTINUE FOR 1 DAYS. 02/15/18 16:50 Blood - Peripheral Venous Blood Culture - Preliminary NO GROWTH OBTAINED AFTER 96 HOURS, INCUBATION TO CONTINUE FOR 1 DAYS. 02/12/18 23:40 Blood - Peripheral Venous Blood Culture - Final NO GROWTH AFTER 5 DAYS INCUBATION cxray-congestion a/p rapid afib esrd/hd volume overload diabetes CAD hematoma d/c zosyn encourage incentive spirometry Problem List - Problems (1) Fluid overload Code(s): E87.70 - FLUID OVERLOAD, UNSPECIFIED Qualifiers: Hypervolemia type: unspecified Qualified Code(s): E87.70 - Fluid overload, unspecified (2) Anemia Code(s): D64.9 - ANEMIA, UNSPECIFIED (3) Hip hematoma, left Code(s): S70.02XA - CONTUSION OF LEFT HIP, INITIAL ENCOUNTER Qualifiers: Encounter type: subsequent encounter Qualified Code(s): S70.02XD - Contusion of left hip, subsequent encounter (4) ESRD (end stage renal disease) on dialysis Code(s): N18.6 - END STAGE RENAL DISEASE; Z99.2 - DEPENDENCE ON RENAL DIALYSIS (5) CVA (cerebral infarction) Code(s): I63.9 - CEREBRAL INFARCTION, UNSPECIFIED Qualifiers: Cerebral infarction mechanism: unspecified mechanism Qualified Code(s): I63.9 - Cerebral infarction, unspecified (6) Diabetes mellitus Code(s): E11.9 - TYPE 2 DIABETES MELLITUS WITHOUT COMPLICATIONS Qualifiers: Diabetes mellitus type: type 2 Diabetes mellitus complication status: with ophthalmic complications Diabetes mellitus complication detail: with diabetic retinopathy (7) CAD (coronary artery disease) Code(s): I25.10 - ATHSCL HEART DISEASE OF [place] CORONARY ARTERY W/O ANG PCTRS
[2018-02-20 09:28] LABS: INR 3.13 (0.83-1.09); PROTHROMBIN TIME (PATIENT) 35.4 SEC (9.7-13.0)
[2018-02-20] MEDS: POLYETHYLENE GLYCOL 3350 119 GM BTL PO SCH (09:58)
[2018-02-20] MEDS: LACTOBACILLUS ACIDOPHILUS 1 TABLET PO SCH (09:58)
[2018-02-20] MEDS: ASPIRIN COATED 81 MG TABLET.EC PO SCH (09:58)
[2018-02-20] MEDS: PANTOPRAZOLE 40 MG TABLET (FP) PO SCH (09:59)
[2018-02-20] MEDS: MIDODRINE HCL 5 MG TABLET PO SCH ×3 (09:59→17:46)
--- NOTE | 2018-02-20 11:08 | PN ---
Progress Note (short form) - Note Progress Note: Dry cough BGM fluctuating No hypos Vital Signs Period Temp Pulse Resp BP Sys/Simons Pulse Ox Last 24 Hr 97.6 F-99 F 59-75 13-20 93-132/50-63 98-98 PE: Drowsy, arousable Neck: Supple HEENT: EOMI Lungs:CTA CVS: S1S2 Abd: Benign Ext: No edema CMP Sodium 142 mmol/L (136-145) 02/20/18 05:30 Potassium 4.4 mmol/L (3.5-5.1) 02/20/18 05:30 Chloride 103 mmol/L (98-107) 02/20/18 05:30 Carbon Dioxide 33 mmol/L (21-32) H 02/20/18 05:30 Anion Gap 6 MMOL/L (8-16) L 02/20/18 05:30 BUN 31 mg/dL (7-18) H 02/20/18 05:30 Creatinine 2.6 mg/dL (0.7-1.3) H 02/20/18 05:30 Creat Clearance w eGFR 23.99 (>60) 02/20/18 05:30 POC Glucometer > 400 UNITS (80-120) 02/19/18 21:08 Random Glucose 201 mg/dL (74-106) H D 02/20/18 05:30 Lactic Acid 1.5 mmol/L (0.0-2.0) 02/13/18 05:30 Calcium 7.7 mg/dL (8.5-10.1) L 02/20/18 05:30 Phosphorus 2.5 mg/dL (2.5-4.9) D 02/20/18 05:30 Magnesium 2.1 mg/dL (1.8-2.4) 02/20/18 05:30 Total Bilirubin 0.8 mg/dL (0.2-1.0) 02/20/18 05:30 AST 353 U/L (15-37) H 02/20/18 05:30 ALT 572 U/L (12-78) H 02/20/18 05:30 Alkaline Phosphatase 114 U/L (45-117) 02/20/18 05:30 Ammonia 22.7 umol/L (11-32) 02/20/18 05:30 Creatine Kinase 38 IU/L (39-308) L 02/17/18 05:30 Troponin I 0.06 ng/ml (0.00-0.05) H D 02/17/18 05:30 Total Protein 5.1 g/dl (6.4-8.2) L 02/20/18 05:30 Albumin 2.3 g/dl (3.4-5.0) L 02/20/18 05:30 Total Amylase 67 U/L (25-115) 02/12/18 23:40 Lipase 236 U/L (73-393) 02/12/18 23:40 TSH 6.01 uIU/ml (0.358-3.74) H D 02/17/18 05:30 Current Medications Generic Name Dose Route Start Last Admin Trade Name Freq PRN Reason Stop Dose Admin Albuterol/Ipratropium 1 amp 02/14/18 12:11 02/18/18 20:15 Duoneb - NEB 1 amp Q6H PRN Administration SHORTNESS OF BREATH Aspirin 81 mg 02/15/18 10:00 02/20/18 09:58 Ecotrin - PO 81 mg DAILY [facility] Administration Escitalopram Oxalate 5 mg 02/13/18 22:00 02/19/18 21:17 Lexapro - PO 5 mg HS [facility] Administration Guaifenesin 10 ml 02/17/18 13:13 02/18/18 11:29 Diabetic Tussin Dm - PO 10 ml Q6H PRN Administration COUGH Insulin Aspart 1 vial 02/18/18 22:00 02/19/18 21:18 Novolog Vial Sliding Scale - SQ 8 units HS [facility] Administration Protocol Insulin Aspart 1 vial 02/19/18 17:41 02/20/18 06:28 Novolog Vial Sliding Scale - SQ 6 units TIDAC [facility] Administration Protocol Lactobacillus Acidophilus 1 tab 02/19/18 10:00 02/20/18 09:58 Bacid - PO 1 tab DAILY [facility] Administration Metoprolol Tartrate 12.5 mg 02/19/18 06:00 02/20/18 06:27 Lopressor - PO 12.5 mg Q6HPO [facility] Administration Midodrine 10 mg 02/19/18 17:26 02/20/18 09:59 Proamatine - PO 10 mg TID-MID [facility] Administration Pantoprazole Sodium 40 mg 02/14/18 10:00 02/20/18 09:59 Protonix - PO 40 mg DAILY [facility] Administration Polyethylene Glycol 17 gm 02/17/18 20:15 02/20/18 09:58 Miralax (For Daily Use) - PO 17 grams DAILY [facility] Administration Tamsulosin HCl 0.4 mg 02/13/18 22:00 02/19/18 21:17 Flomax - PO 0.4 mg HS [facility] Administration Warfarin Sodium 4 mg 02/18/18 18:00 Coumadin - PO DAILY@1800 [facility] AP: T2DM with hyperlgycemia ESRD S/P Asystole of 4 sec CAD H/O CVA Possible Aspiration Pneumonia Blood sugar goal around 200 to avoid hypoglycemia as pt has frequent hypoglycemia at home especially at night. Option Insulin drip discussed with family who want to continue with current basal/bolus regimen for now. BGM QACHS and 3 AM Increase Levemir 20 units today Increase Novolog ss coverage Will f/u Problem List - Problems (1) Chronic diastolic (congestive) heart failure Code(s): I50.32 - CHRONIC DIASTOLIC (CONGESTIVE) HEART FAILURE (2) Hip hematoma, left Code(s): S70.02XA - CONTUSION OF LEFT HIP, INITIAL ENCOUNTER Qualifiers: Encounter type: subsequent encounter Qualified Code(s): S70.02XD - Contusion of left hip, subsequent encounter (3) Hypotension Code(s): I95.9 - HYPOTENSION, UNSPECIFIED (4) Vomiting Code(s): R11.10 - VOMITING, UNSPECIFIED (5) ESRD (end stage renal disease) on dialysis Code(s): N18.6 - END STAGE RENAL DISEASE; Z99.2 - DEPENDENCE ON RENAL DIALYSIS
[2018-02-20] MEDS: INSULIN (LEVEMIR) 100 UNITS/ML UNITS SQ SCH (11:46)
--- NOTE | 2018-02-20 12:25 | PN ---
Teaching Attending Note Name of Resident: Nura Garrison ATTENDING PHYSICIAN STATEMENT I saw and evaluated the patient. I reviewed the resident's note and discussed the case with the resident. I agree with the resident's findings and plan as documented. SUBJECTIVE: Patient seen and examined in the ICU. Still with some nonproductive cough. Shortness of breath seems improved. Remains in sinus rhythm. CXR: slightly increased CHF pattern OBJECTIVE: Intake & Output 02/17/18 02/18/18 02/19/18 02/20/18 23:59 23:59 23:59 23:59 Intake Total 1094 315 350 250 Output Total 0 0 0 Balance 1094 315 350 250 Weight 147 lb 5 oz 153 lb 9 oz 156 lb 8.451 oz Last Vital Signs Temp Pulse Resp BP Pulse Ox 98.0 F 73 20 120/60 98 02/20/18 12:00 02/20/18 12:20 02/20/18 12:20 02/20/18 12:20 02/20/18 08:00 Active Medications Albuterol/Ipratropium (Duoneb -) 1 amp NEB Q6H PRN PRN Reason: SHORTNESS OF BREATH Last Admin: 02/18/18 20:15 Dose: 1 amp Aspirin (Ecotrin -) 81 mg PO DAILY [facility] Last Admin: 02/20/18 09:58 Dose: 81 mg Escitalopram Oxalate (Lexapro -) 5 mg PO HS [facility] Last Admin: 02/19/18 21:17 Dose: 5 mg Guaifenesin (Diabetic Tussin Dm -) 10 ml PO Q6H PRN PRN Reason: COUGH Last Admin: 02/18/18 11:29 Dose: 10 ml Insulin Aspart (Novolog Vial Sliding Scale -) 1 vial SQ HS [facility]; Protocol Last Admin: 02/19/18 21:18 Dose: 8 units Insulin Aspart (Novolog Vial Sliding Scale -) 1 vial SQ TIDAC [facility]; Protocol Last Admin: 02/20/18 11:47 Dose: 10 units Insulin Detemir (Levemir Vial) 20 units SQ ACBK [facility] Last Admin: 02/20/18 11:46 Dose: 20 units Lactobacillus Acidophilus (Bacid -) 1 tab PO DAILY [facility] Last Admin: 02/20/18 09:58 Dose: 1 tab Metoprolol Tartrate (Lopressor -) 12.5 mg PO Q6HPO [facility] Last Admin: 02/20/18 11:48 Dose: 12.5 mg Midodrine (Proamatine -) 10 mg PO TID-MID [facility] Last Admin: 02/20/18 09:59 Dose: 10 mg Pantoprazole Sodium (Protonix -) 40 mg PO DAILY [facility] Last Admin: 02/20/18 09:59 Dose: 40 mg Polyethylene Glycol (Miralax (For Daily Use) -) 17 gm PO DAILY [facility] Last Admin: 02/20/18 09:58 Dose: 17 grams Tamsulosin HCl (Flomax -) 0.4 mg PO HS [facility] Last Admin: 02/19/18 21:17 Dose: 0.4 mg Warfarin Sodium (Coumadin -) 4 mg PO DAILY@1800 [facility] Gen: Awake and alert, weak appearing Heart: RRR Lung: Bilateral rales, no wheeze Abd: soft, nontender Ext: no edema Laboratory Results - last 24 hr 02/19/18 02/19/18 02/19/18 12:20 17:17 21:08 WBC RBC Hgb Hct MCV MCH MCHC RDW Plt Count MPV PT with INR INR PTT (Actin FS) Sodium Potassium Chloride Carbon Dioxide Anion Gap BUN Creatinine Creat Clearance w eGFR POC Glucometer [phone] > 400 > 400 Random Glucose Calcium Phosphorus Magnesium Total Bilirubin AST ALT Alkaline Phosphatase Ammonia Total Protein Albumin 02/20/18 02/20/18 02/20/18 05:30 05:30 05:30 WBC 7.7 RBC 3.55 L Hgb 9.9 L Hct 31.0 L MCV 87.2 MCH 27.8 MCHC 31.8 L RDW 18.9 H Plt Count 98 L MPV 9.9 PT with INR INR PTT (Actin FS) 41.6 H Sodium 142 Potassium 4.4 Chloride 103 Carbon Dioxide 33 H Anion Gap 6 L BUN 31 H Creatinine 2.6 H Creat Clearance w eGFR 23.99 POC Glucometer Random Glucose 201 H D Calcium 7.7 L Phosphorus 2.5 D Magnesium 2.1 Total Bilirubin 0.8 AST 353 H ALT 572 H Alkaline Phosphatase 114 Ammonia Total Protein 5.1 L Albumin 2.3 L 02/20/18 02/20/18 05:30 05:30 WBC RBC Hgb Hct MCV MCH MCHC RDW Plt Count MPV PT with INR 35.40 H INR 3.13 H PTT (Actin FS) Sodium Potassium Chloride Carbon Dioxide Anion Gap BUN Creatinine Creat Clearance w eGFR POC Glucometer Random Glucose Calcium Phosphorus Magnesium Total Bilirubin AST ALT Alkaline Phosphatase Ammonia 22.7 Total Protein Albumin ASSESSMENT AND PLAN: Syncope Sinus Pause Paroxysmal Atrial Fibrillation with RVR now in sinus rhythm CAD LV Diastolic Dysfunction HTN Hyperlipidemia DM LV thrombus h/o CVA ESRD on HD - rate control with metoprolol - continue anticoagulation with target INR 2-3 - HD per renal with UF as tolerated - cough suppressants - glucose control - Empiric antibiotics per ID - O2 to keep Spo2 >90% - continue ICU monitoring Dr Bob Critical care time spent in reviewing chart, evaluating patient and formulating plan - 36 minutes.
--- NOTE | 2018-02-20 15:20 | PN ---
Progress Note (short form) - Note Progress Note: Renal follow up for ESRD on HD Pt seen and examined in the ICU awake and alert still somewhat confused no cp, sob, abd pain + cough for UF today Vital Signs Temperature 97.8 F 02/20/18 14:20 Pulse Rate 59 L 02/20/18 14:00 Respiratory Rate 16 02/20/18 14:00 Blood Pressure 95/48 02/20/18 14:00 O2 Sat by Pulse Oximetry (%) 98 02/20/18 08:00 Intake & Output 02/17/18 02/18/18 02/19/18 02/20/18 23:59 23:59 23:59 23:59 Intake Total 1094 315 350 250 Output Total 0 0 0 Balance 1094 315 350 250 Weight 66.82 kg 69.655 kg 71 kg NAD awake and alert RRR, No M/R Dec BS at the lung bases soft NT/ND Left hip hematoma Trace edema CBC, BMP 02/20/18 05:30 02/20/18 05:30 Current Medications Albuterol/Ipratropium (Duoneb -) 1 amp NEB Q6H PRN PRN Reason: SHORTNESS OF BREATH Last Admin: 02/18/18 20:15 Dose: 1 amp Aspirin (Ecotrin -) 81 mg PO DAILY [facility] Last Admin: 02/20/18 09:58 Dose: 81 mg Escitalopram Oxalate (Lexapro -) 5 mg PO HS [facility] Last Admin: 02/19/18 21:17 Dose: 5 mg Guaifenesin (Diabetic Tussin Dm -) 10 ml PO Q6H PRN PRN Reason: COUGH Last Admin: 02/18/18 11:29 Dose: 10 ml Insulin Aspart (Novolog Vial Sliding Scale -) 1 vial SQ HS [facility]; Protocol Last Admin: 02/19/18 21:18 Dose: 8 units Insulin Aspart (Novolog Vial Sliding Scale -) 1 vial SQ TIDAC [facility]; Protocol Last Admin: 02/20/18 11:47 Dose: 10 units Insulin Detemir (Levemir Vial) 20 units SQ ACBK [facility] Last Admin: 02/20/18 11:46 Dose: 20 units Lactobacillus Acidophilus (Bacid -) 1 tab PO DAILY [facility] Last Admin: 02/20/18 09:58 Dose: 1 tab Metoprolol Tartrate (Lopressor -) 12.5 mg PO Q6HPO [facility] Last Admin: 02/20/18 11:48 Dose: 12.5 mg Midodrine (Proamatine -) 5 mg PO TID-MID [facility] Last Admin: 02/20/18 14:12 Dose: 5 mg Polyethylene Glycol (Miralax (For Daily Use) -) 17 gm PO DAILY [facility] Last Admin: 02/20/18 09:58 Dose: 17 grams Tamsulosin HCl (Flomax -) 0.4 mg PO HS [facility] Last Admin: 02/19/18 21:17 Dose: 0.4 mg Warfarin Sodium (Coumadin -) 4 mg PO DAILY@1800 [facility] 77 year old [place] gentleman with Hx of ESRD on HD (started this year), CAD s/p PCI, Hypertension, Hyperlipidemia, CHF, Left Ventricular Thrombus on Coumadin who presented from home with weakness and hypotension. #Weakness/Hypotension #CHF/Volume overload #ESRD on HD with Hyperkalemia #Ventricular Thrombus #Anemia #Hip Hematoma w/o fracture #New Aflutter with RVR For isolated UF today will attempt to remove 2L as tolerated midodrine dose decreased as per ICU Continue Metoprolol for rate control Hgb stable, will continue AMY with HD Cardiology following if pt unable to tolerate UF or HD may need CVVHD Florencio Del Cid DO
[2018-02-20] MEDS: WARFARIN NA 2 MG TABLET (UD) PO SCH (17:02)
[2018-02-20] MEDS ORDERED: SODIUM CHLORIDE 250 ML IV PRN (17:42)
--- NOTE | 2018-02-20 19:40 | PN ---
Physical Exam: SUBJECTIVE: Patient seen and examined this am and afternoon in icu. Pt endorses feeling better, denies cp or sob, still has non-productive. Will undergo UF soon today per renal. Dr Davila at bedside. OBJECTIVE: Vital Signs Period Temp Pulse Resp BP Sys/Simons Pulse Ox Last 24 Hr 97.8 F-99 F 59-76 14-20 95-132/48-65 98-98 GENERAL: AAOx3. NAD. HEAD: NC/AT EYES: EOMI. ENT: MMM NECK: No JVD. LUNGS: B/L rhonchi. HEART: RRR ABDOMEN: NT, ND, No HSM EXTREMITIES: No CCE. L Hip hematoma. NEUROLOGICAL: No Neuro Deficits observed PSYCH: Normal mood, normal affect. SKIN: No Rashes appreciated. Laboratory Results - last 24 hr 02/19/18 02/20/18 02/20/18 21:08 02:47 05:30 WBC 7.7 RBC 3.55 L Hgb 9.9 L Hct 31.0 L MCV 87.2 MCH 27.8 MCHC 31.8 L RDW 18.9 H Plt Count 98 L MPV 9.9 PT with INR INR PTT (Actin FS) Sodium Potassium Chloride Carbon Dioxide Anion Gap BUN Creatinine Creat Clearance w eGFR POC Glucometer > [phone] Random Glucose Calcium Phosphorus Magnesium Total Bilirubin AST ALT Alkaline Phosphatase Ammonia Total Protein Albumin 02/20/18 02/20/18 02/20/18 05:30 05:30 05:30 WBC RBC Hgb Hct MCV MCH MCHC RDW Plt Count MPV PT with INR INR PTT (Actin FS) 41.6 H Sodium 142 Potassium 4.4 Chloride 103 Carbon Dioxide 33 H Anion Gap 6 L BUN 31 H Creatinine 2.6 H Creat Clearance w eGFR 23.99 POC Glucometer Random Glucose 201 H D Calcium 7.7 L Phosphorus 2.5 D Magnesium 2.1 Total Bilirubin 0.8 AST 353 H ALT 572 H Alkaline Phosphatase 114 Ammonia 22.7 Total Protein 5.1 L Albumin 2.3 L 02/20/18 02/20/18 02/20/18 05:30 06:19 11:37 WBC RBC Hgb Hct MCV MCH MCHC RDW Plt Count MPV PT with INR 35.40 H INR 3.13 H PTT (Actin FS) Sodium Potassium Chloride Carbon Dioxide Anion Gap BUN Creatinine Creat Clearance w eGFR POC Glucometer [phone] Random Glucose Calcium Phosphorus Magnesium Total Bilirubin AST ALT Alkaline Phosphatase Ammonia Total Protein Albumin 02/20/18 16:27 WBC RBC Hgb Hct MCV MCH MCHC RDW Plt Count MPV PT with INR INR PTT (Actin FS) Sodium Potassium Chloride Carbon Dioxide Anion Gap BUN Creatinine Creat Clearance w eGFR POC Glucometer [phone] Random Glucose Calcium Phosphorus Magnesium Total Bilirubin AST ALT Alkaline Phosphatase Ammonia Total Protein Albumin Active Medications Generic Name Dose Route Start Last Admin Trade Name Freq PRN Reason Stop Dose Admin Albumin Human 12.5 gm 02/20/18 17:45 Albumin Human 25% IVPB Q30M [facility] Albuterol/Ipratropium 1 amp 02/14/18 12:11 02/18/18 20:15 Duoneb - NEB 1 amp Q6H PRN Administration SHORTNESS OF BREATH Aspirin 81 mg 02/15/18 10:00 02/20/18 09:58 Ecotrin - PO 81 mg DAILY [facility] Administration Escitalopram Oxalate 5 mg 02/13/18 22:00 02/19/18 21:17 Lexapro - PO 5 mg HS [facility] Administration Guaifenesin 10 ml 02/17/18 13:13 02/18/18 11:29 Diabetic Tussin Dm - PO 10 ml Q6H PRN Administration COUGH Sodium Chloride 250 mls @ 3,000 mls/hr 02/20/18 17:42 Normal Saline - IV 02/21/18 17:42 PRN PRN Hypotension during Dialysis Insulin Aspart 1 vial 02/18/18 22:00 02/19/18 21:18 Novolog Vial Sliding Scale - SQ 8 units HS [facility] Administration Protocol Insulin Aspart 1 vial 02/20/18 11:12 02/20/18 16:31 Novolog Vial Sliding Scale - SQ 12 units TIDAC [facility] Administration Protocol Insulin Detemir 20 units 02/20/18 11:09 02/20/18 11:46 Levemir Vial SQ 20 units ACBK [facility] Administration Lactobacillus Acidophilus 1 tab 02/19/18 10:00 02/20/18 09:58 Bacid - PO 1 tab DAILY [facility] Administration Metoprolol Tartrate 12.5 mg 02/19/18 06:00 02/20/18 17:45 Lopressor - PO 12.5 mg Q6HPO [facility] Administration Midodrine 5 mg 02/20/18 12:30 02/20/18 17:46 Proamatine - PO 5 mg TID-MID [facility] Administration Polyethylene Glycol 17 gm 02/17/18 20:15 02/20/18 09:58 Miralax (For Daily Use) - PO 17 grams DAILY [facility] Administration Tamsulosin HCl 0.4 mg 02/13/18 22:00 02/19/18 21:17 Flomax - PO 0.4 mg HS [facility] Administration Warfarin Sodium 4 mg 02/18/18 18:00 02/20/18 17:02 Coumadin - PO Not Given DAILY@1800 [facility] ASSESSMENT/PLAN: Patient is a 77 year old male (b. [place]), with PMHx of CVA, DM, CAD (OK--> 5 coronary stents at [facility] 08/17, with subsequent renal failure and ventricular thrombus; currently on ASA, clopidogrel, and warfarin), ESRD ( hemodialysis since 11/2017), diastolic CHF, HTN, HLD, s/p GI Bleed, Anxiety, and Diabetes Mellitus. Cardio: CAD, CHF, HLD 4 second asystolic period preceded by Atrial Flutter 02/17 2-3 second asystolic episode 02/18 during HD. Cardizem gtt wittheld. Lopressor 12.5 mg po q6h per Dr Moreno -Warfarin 4 mg po daily--> Left Ventricular Thrombus. Currently on hold d/t INR 3.13 today 02/20/18. Target INR 2-3 -ASA 81 MG PO Daily -Dr Moreno on board Renal: CKD ESRD on HD with Hyperkalemia -UF today. 2L fluid attempt on removing. - Midodrine 10 mg tapered to 5 mg today - K 4.4 this am. Continue to monitor electrolytes. -Dr Del Cid on board ENDO- DM2 Novolog Vial Sliding Scale 1 vial SQ ACHS Increase Levemir 20 units today 02/20/18 Dr Villegas on board I.D-Possible Aspiration Pneumonia Zosyn 50 mls @ 100 mls/hr IVPB BID--> D/C'ed today per I.D 02/20/18--> Congestive and Infiltrative changes with pleural fluid, widened mediastinum unchanged from previous C-XRAY 02/19. . FEN No Fluids Monitor Electrolytes Diabetic/Sodium diet DVT ppx: SCD's Dispo: Continue to monitor in icu. Visit type - Emergency Visit Emergency Visit: Yes ED Registration Date: 02/13/18 Care time: The patient presented to the Emergency Department on the above date and was hospitalized for further evaluation of their emergent condition. - New Patient This patient is new to me today: No - Critical Care Critical Care patient: Yes Total Critical Care Time (in minutes): 35 Critical Care Statement: The care of this patient involved high complexity decision making to prevent further life threatening deterioration of the patient 's condition and/or to evaluate & treat vital organ system(s) failure or risk of failure.
--- NOTE | 2018-02-20 20:59 | PN ---
Progress Note, Physician History of Present Illness: Underwent HD today and tolerated well. Continues to have cough but without any fever or sputum production. Denies any chest pain, SOB or PND. - Current Medication List Current Medications: Active Medications Albumin Human (Albumin Human 25%) 12.5 gm IVPB Q30M [facility] Albuterol/Ipratropium (Duoneb -) 1 amp NEB Q6H PRN PRN Reason: SHORTNESS OF BREATH Last Admin: 02/18/18 20:15 Dose: 1 amp Aspirin (Ecotrin -) 81 mg PO DAILY [facility] Last Admin: 02/20/18 09:58 Dose: 81 mg Escitalopram Oxalate (Lexapro -) 5 mg PO HS [facility] Last Admin: 02/19/18 21:17 Dose: 5 mg Guaifenesin (Diabetic Tussin Dm -) 10 ml PO Q6H PRN PRN Reason: COUGH Last Admin: 02/18/18 11:29 Dose: 10 ml Sodium Chloride (Normal Saline -) 250 mls @ 3,000 mls/hr IV PRN PRN PRN Reason: Hypotension during Dialysis Stop: 02/21/18 17:42 Insulin Aspart (Novolog Vial Sliding Scale -) 1 vial SQ HS [facility]; Protocol Last Admin: 02/19/18 21:18 Dose: 8 units Insulin Aspart (Novolog Vial Sliding Scale -) 1 vial SQ TIDAC [facility]; Protocol Last Admin: 02/20/18 16:31 Dose: 12 units Insulin Detemir (Levemir Vial) 20 units SQ ACBK [facility] Last Admin: 02/20/18 11:46 Dose: 20 units Lactobacillus Acidophilus (Bacid -) 1 tab PO DAILY [facility] Last Admin: 02/20/18 09:58 Dose: 1 tab Metoprolol Tartrate (Lopressor -) 12.5 mg PO Q6HPO [facility] Last Admin: 02/20/18 17:45 Dose: 12.5 mg Midodrine (Proamatine -) 5 mg PO TID-MID [facility] Last Admin: 02/20/18 17:46 Dose: 5 mg Polyethylene Glycol (Miralax (For Daily Use) -) 17 gm PO DAILY [facility] Last Admin: 02/20/18 09:58 Dose: 17 grams Tamsulosin HCl (Flomax -) 0.4 mg PO HS [facility] Last Admin: 02/19/18 21:17 Dose: 0.4 mg Warfarin Sodium (Coumadin -) 4 mg PO DAILY@1800 [facility] Last Admin: 02/20/18 17:02 Dose: Not Given - Objective Vital Signs: Vital Signs Temperature 98.0 F 02/20/18 18:00 Pulse Rate 69 02/20/18 20:00 Respiratory Rate 18 02/20/18 20:00 Blood Pressure 113/58 02/20/18 20:00 O2 Sat by Pulse Oximetry (%) 98 02/20/18 08:00 Constitutional: Yes: Well Nourished, No Distress, Calm Eyes: Yes: Conjunctiva Clear, EOM Intact HENT: Yes: WNL Neck: Yes: Supple Cardiovascular: Yes: Regular Rate and Rhythm, S1, S2 Respiratory: Yes: Regular, CTA Bilaterally Gastrointestinal: Yes: Normal Bowel Sounds, Soft Genitourinary: Yes: WNL Musculoskeletal: Yes: WNL Extremities: Yes: WNL Edema: No Integumentary: Yes: WNL Neurological: Yes: Alert, Oriented, Cran Nerves II-XII Intact ...Motor Strength: WNL Psychiatric: Yes: Alert, Oriented Labs: CBC, BMP 02/20/18 05:30 02/20/18 05:30 INR, PTT INR 3.13 (0.83-1.09) H 02/20/18 05:30 Problem List - Problems (1) Chronic diastolic (congestive) heart failure Assessment/Plan: Denies any chest pain or SOB. Chest Xray shows pulmonary congestion and possible effusion Code(s): I50.32 - CHRONIC DIASTOLIC (CONGESTIVE) HEART FAILURE (2) Hypotension Assessment/Plan: BP has been in normal range Code(s): I95.9 - HYPOTENSION, UNSPECIFIED (3) Anemia Assessment/Plan: Anemia is stable around 9Gm% Code(s): D64.9 - ANEMIA, UNSPECIFIED (4) Diabetes 1.5, managed as type 1 Assessment/Plan: Diabetes is under better control Code(s): E13.9 - OTHER SPECIFIED DIABETES MELLITUS WITHOUT COMPLICATIONS (5) Syncope Assessment/Plan: Two episodes of syncope followed by AFIB. Now in sinus rhythm. Complete evaluation will be done by addictions counselor whether to consider ablation . PPM cannot be done due to access for HD Code(s): R55 - SYNCOPE AND COLLAPSE Assessment/Plan Imp: Diastolic CHF, CAD with five stents, Episodes of AFIB/Flutter with prolonged pause and syncope Anemia due to anemia of ch.disease and also blood loss Diabetes on Insulin ESRD on HD. Assess: Case discussed with who feels not a candidate for PPM and may be ablation. As he was not able to have full dialysis with episodes of hypotension it is decided to perform in two sessions. Anticoagulation to cont. with Coumadin and Aspirin at present and Plavix being held. LFTs are improving and Rosuvastatin and Allopurinol being held.
[2018-02-20] MEDS: ESCITALOPRAM OXALATE 10 MG TABLET (FP) PO SCH (21:07)
[2018-02-20] MEDS: TAMSULOSIN HCL 0.4 MG CAP.ER.24H (FP) PO SCH (21:07)
[2018-02-20] MEDS: ALBUTEROL SO4 2.5/IPRATROPIUM 0.5 INH SOL 3 ML VIAL.NEB. NEB PRN (22:35)
[2018-02-21] MEDS: METOPROLOL TARTRATE 25 MG TABLET (FP) PO SCH ×4 (00:12→18:12)
[2018-02-21] MEDS ORDERED: HEMOQUE TEST 1 EACH EACH ONE (01:00)
--- NOTE | 2018-02-21 01:41 | PN ---
Progress Note (short form) - Note Progress Note: 7 beats NSVT overnight, patient sleeping
[2018-02-21] MEDS: guaiFENesin/D-M SUGAR-FREE/ACLHOL-FREE 118 ML BOTTLE PO PRN ×2 (06:03→14:20)
[2018-02-21] MEDS: INSULIN (LEVEMIR) 100 UNITS/ML UNITS SQ SCH (06:18)
[2018-02-21] MEDS: INSULIN SLIDING SCALE (NOVOLOG) 1 VIAL SQ SCH ×4 (06:19→22:38)
[2018-02-21 06:34] LABS: HEMATOCRIT 31.3 % (35.4-49); HEMOGLOBIN 9.7 GM/dL (11.7-16.9); MCH 27.4 pg (25.7-33.7); MCHC 30.9 g/dl (32.0-35.9); MEAN CELL VOLUME 88.6 fl (80-96); MEAN PLT VOLUME 10.9 fl (7.5-11.1); PLATELET COUNT 99 K/MM3 (134-434); RBC 3.53 M/mm3 (4.00-5.60); RDW 19.9 % (11.9-15.9); WHITE BLOOD COUNT 7.3 K/mm3 (4.0-10.0)
[2018-02-21 06:43] LABS: INR 1.86 (0.83-1.09)
[2018-02-21 06:53] LABS: ALBUMIN 2.3 g/dl (3.4-5.0); ANION GAP 9 MMOL/L (8-16); BLOOD UREA NITROGEN 48 mg/dL (7-18); CALCIUM 8.2 mg/dL (8.5-10.1); CHLORIDE 103 mmol/L (98-107); CO2 30 mmol/L (21-32); GLUCOSE,RANDOM 222 mg/dL (74-106); MAGNESIUM 2.4 mg/dL (1.8-2.4); POTASSIUM 4.7 mmol/L (3.5-5.1); SODIUM 142 mmol/L (136-145)
[2018-02-21 06:56] LABS: ALK PHOS 110 U/L (45-117); BILIRUBIN,TOTAL 0.7 mg/dL (0.2-1.0); CREATININE 3.5 mg/dL (0.7-1.3); PHOSPHOROUS 3.9 mg/dL (2.5-4.9); SGOT/AST 122 U/L (15-37); TOT PROT 5.1 g/dl (6.4-8.2)
[2018-02-21 07:03] LABS: SGPT/ALT 419 U/L (12-78)
--- NOTE | 2018-02-21 08:16 | PN ---
Progress Note (short form) - Note Progress Note: PULM/CCM Patient seen and examined in the ICU. CA + Ox3, marked improve in SOB, Still w / loose cough but NAD. Active Medications Albumin Human (Albumin Human 25%) 12.5 gm IVPB Q30M [facility] Stop: 02/21/18 12:31 Albuterol/Ipratropium (Duoneb -) 1 amp NEB Q6H PRN PRN Reason: SHORTNESS OF BREATH Last Admin: 02/21/18 08:25 Dose: 1 amp Aspirin (Ecotrin -) 81 mg PO DAILY [facility] Last Admin: 02/21/18 09:39 Dose: 81 mg Escitalopram Oxalate (Lexapro -) 5 mg PO HS [facility] Last Admin: 02/20/18 21:07 Dose: 5 mg Guaifenesin (Diabetic Tussin Dm -) 10 ml PO Q6H PRN PRN Reason: COUGH Last Admin: 02/21/18 06:03 Dose: 10 ml Sodium Chloride (Normal Saline -) 250 mls @ 3,000 mls/hr IV PRN PRN PRN Reason: Hypotension during Dialysis Stop: 02/22/18 10:59 Insulin Aspart (Novolog Vial Sliding Scale -) 1 vial SQ HS [facility]; Protocol Last Admin: 02/20/18 21:14 Dose: 5 units Insulin Aspart (Novolog Vial Sliding Scale -) 1 vial SQ TIDAC [facility]; Protocol Last Admin: 02/21/18 06:19 Dose: 10 units Insulin Detemir (Levemir Vial) 20 units SQ ACBK [facility] Last Admin: 02/21/18 06:18 Dose: 20 units Lactobacillus Acidophilus (Bacid -) 1 tab PO DAILY [facility] Last Admin: 02/21/18 09:38 Dose: 1 tab Metoprolol Tartrate (Lopressor -) 12.5 mg PO Q6HPO [facility] Last Admin: 02/21/18 05:06 Dose: 12.5 mg Midodrine (Proamatine -) 5 mg PO TID-MID [facility] Last Admin: 02/21/18 09:40 Dose: 5 mg Polyethylene Glycol (Miralax (For Daily Use) -) 17 gm PO DAILY [facility] Last Admin: 02/21/18 09:39 Dose: 17 grams Tamsulosin HCl (Flomax -) 0.4 mg PO HS [facility] Last Admin: 02/20/18 21:07 Dose: 0.4 mg Warfarin Sodium (Coumadin -) 4 mg PO DAILY@1800 [facility] Last Admin: 02/20/18 17:02 Dose: Not Given V/S Period Temp Pulse Resp BP Sys/Simons Pulse Ox Last 24 Hr 97.8 F-98.8 F 56-75 15-20 95-127/48-69 99-99 Intake & Output 02/18/18 02/19/18 02/20/18 02/21/18 23:59 23:59 23:59 23:59 Intake Total 315 350 600 120 Output Total 0 0 0 0 Balance 315 350 600 120 Weight 69.655 kg 71 kg 69.4 kg Gen: Awake and alert, NAD PULM: Bilateral ronchi 2/ bibasilar rales, no wheeze CV: RRR ABD: soft, nontender EXT: + Pulses, WWP X4, no edema CBC, BMP 02/21/18 05:30 02/21/18 05:30 Microbiology 02/15/18 16:50 Blood - Peripheral Venous Blood Culture - Final NO GROWTH AFTER 5 DAYS INCUBATION 02/15/18 16:50 Blood - Peripheral Venous Blood Culture - Final NO GROWTH AFTER 5 DAYS INCUBATION 02/12/18 23:40 Blood - Peripheral Venous Blood Culture - Final NO GROWTH AFTER 5 DAYS INCUBATION ASSESSMENT AND PLAN: Syncope Sinus Pause Paroxysmal Atrial Fibrillation with RVR now in sinus rhythm CAD LV Diastolic Dysfunction HTN Hyperlipidemia DM LV thrombus h/o CVA ESRD on HD - O2 to keep Spo2 >90% - Empiric antibiotics per ID - HD today I will try to pull off > 3L as tolerated - rate control with metoprolol - continue anticoagulation with target INR 2-3 - glucose control - continue ICU monitoring DGL, ACNP-[facility] ICU PULM/[facility] 4411 Critical Care Total Critical Care Time (in minutes): 39 Critical Care Statement: The care of this patient involved high complexity decision making to prevent further life threatening deterioration of the patient 's condition and/or to evaluate & treat vital organ system(s) failure or risk of failure.
[2018-02-21] MEDS: ALBUTEROL SO4 2.5/IPRATROPIUM 0.5 INH SOL 3 ML VIAL.NEB. NEB PRN ×3 (08:25→21:48)
[2018-02-21] MEDS: LACTOBACILLUS ACIDOPHILUS 1 TABLET PO SCH (09:38)
[2018-02-21] MEDS: ASPIRIN COATED 81 MG TABLET.EC PO SCH (09:39)
[2018-02-21] MEDS: POLYETHYLENE GLYCOL 3350 119 GM BTL PO SCH (09:39)
[2018-02-21] MEDS: MIDODRINE HCL 5 MG TABLET PO SCH ×3 (09:40→18:14)
[2018-02-21] MEDS ORDERED: EPOETIN ALFA 10,000 UNIT/1 ML VIAL IVPUSH ONE (11:00)
[2018-02-21] MEDS ORDERED: SODIUM CHLORIDE 250 ML IV PRN (11:00)
--- NOTE | 2018-02-21 11:33 | PN ---
Progress Note, Physician Chief Complaint: Pt is undergoing hemodialysis; alert; no complaints History of Present Illness: Patient is a 77 year old male (linnea Kingsley), with PMHx of CVA, CAD (NC--> 5 coronary stents at [facility] 08/17, with subsequent renal failure and ventricular thrombus; currently on ASA, clopidogrel, and warfarin), ESRD ( hemodialysis since 11/2017), diastolic CHF, HTN, HLD, s/p GI Bleed, Anxiety, Diabetes Mellitus, who presents with generalized weakness and low blood pressure. The patients (Dr. Davila) states that this afternoon he vomited and noted that his blood pressure was relatively low and he was feeling weak. She brought him to [facility] ER where he has history. He receives dialysis every Friday, , and Friday, but did not go today. Earlier in the day, prior to planned hemodialysis, he underwent renal angioplasty by the vascular surgeon (Dr. Huff) and was NPO. Surgical Hx: December 05 2017 - Renal angioplasty. 02/12/18 - Left AVF with stenosis. NC (Jul, 2017) with multiple stent placements simultaenously. PCP: Coleman Hess - Current Medication List Current Medications: Active Medications Albumin Human (Albumin Human 25%) 12.5 gm IVPB Q30M [facility] Stop: 02/21/18 12:31 Albuterol/Ipratropium (Duoneb -) 1 amp NEB Q6H PRN PRN Reason: SHORTNESS OF BREATH Last Admin: 02/21/18 08:25 Dose: 1 amp Aspirin (Ecotrin -) 81 mg PO DAILY [facility] Last Admin: 02/21/18 09:39 Dose: 81 mg Escitalopram Oxalate (Lexapro -) 5 mg PO HS [facility] Last Admin: 02/20/18 21:07 Dose: 5 mg Guaifenesin (Diabetic Tussin Dm -) 10 ml PO Q6H PRN PRN Reason: COUGH Last Admin: 02/21/18 06:03 Dose: 10 ml Sodium Chloride (Normal Saline -) 250 mls @ 3,000 mls/hr IV PRN PRN PRN Reason: Hypotension during Dialysis Stop: 02/22/18 10:59 Insulin Aspart (Novolog Vial Sliding Scale -) 1 vial SQ [facility]; Protocol Last Admin: 02/20/18 21:14 Dose: 5 units Insulin Aspart (Novolog Vial Sliding Scale -) 1 vial SQ TIDAC [facility]; Protocol Last Admin: 02/21/18 06:19 Dose: 10 units Insulin Detemir (Levemir Vial) 20 units SQ ACBK [facility] Last Admin: 02/21/18 06:18 Dose: 20 units Lactobacillus Acidophilus (Bacid -) 1 tab PO DAILY [facility] Last Admin: 02/21/18 09:38 Dose: 1 tab Metoprolol Tartrate (Lopressor -) 12.5 mg PO Q6HPO [facility] Last Admin: 02/21/18 05:06 Dose: 12.5 mg Midodrine (Proamatine -) 5 mg PO TID-MID [facility] Last Admin: 02/21/18 09:40 Dose: 5 mg Polyethylene Glycol (Miralax (For Daily Use) -) 17 gm PO DAILY [facility] Last Admin: 02/21/18 09:39 Dose: 17 grams Tamsulosin HCl (Flomax -) 0.4 mg PO HS [facility] Last Admin: 02/20/18 21:07 Dose: 0.4 mg Warfarin Sodium (Coumadin -) 4 mg PO DAILY@1800 [facility] Last Admin: 02/20/18 17:02 Dose: Not Given - Objective Vital Signs: Vital Signs Temperature 98.8 F 02/21/18 10:45 Pulse Rate 64 02/21/18 11:20 Respiratory Rate 18 02/21/18 11:20 Blood Pressure 114/62 02/21/18 11:20 O2 Sat by Pulse Oximetry (%) 99 02/21/18 09:00 Constitutional: Yes: No Distress Eyes: Yes: WNL HENT: Yes: WNL Neck: Yes: WNL Cardiovascular: Yes: Pulse Irregular, S1, S2 Respiratory: Yes: Regular Gastrointestinal: Yes: Soft ...Rectal Exam: Yes: Deferred Genitourinary: No: Anuria Musculoskeletal: Yes: Muscle Weakness Extremities: Yes: Cool Edema: No Peripheral Pulses WNL: Yes Integumentary: Yes: Other Wound/Incision: Yes: Sutures Removed (left UE AV graft) Neurological: Yes: Alert, Oriented, Weakness Psychiatric: Yes: Alert, Oriented, Other (anxiety/depression) Labs: CBC, BMP 02/21/18 05:30 02/21/18 05:30 INR, PTT INR 1.86 (0.83-1.09) H 02/21/18 05:30 Abnormal Lab Results 02/21/18 02/21/18 02/21/18 05:30 05:30 05:30 RBC 3.53 L Hgb 9.7 L Hct 31.3 L MCHC 30.9 L RDW 19.9 H Plt Count 99 L PT with INR 21.00 H INR 1.86 H BUN 48 H Creatinine 3.5 H Random Glucose 222 H Calcium 8.2 L AST 122 H D ALT 419 H D Total Protein 5.1 L Albumin 2.3 L - ....Imaging Chest X-ray: Image Reviewed (no significant change (CHF)) Other: Image Reviewed (telemetry: NSR) Problem List - Problems (1) Vomiting Code(s): R11.10 - VOMITING, UNSPECIFIED (2) AV fistula Assessment/Plan: left AV fistula. Code(s): I77.0 - ARTERIOVENOUS FISTULA, ACQUIRED (3) Anxiety and depression Code(s): F41.8 - OTHER SPECIFIED ANXIETY DISORDERS (4) BPH (benign prostatic hypertrophy) Code(s): N40.0 - BENIGN PROSTATIC HYPERPLASIA WITHOUT LOWER URINRY TRACT SYMP (5) CVA (cerebral infarction) Assessment/Plan: Od laconar infarcts in right occiput, cerebelloum on 11/14 CT. On ASA and clopidogrel for recent NC-->several DE stents, and wafrarin (LV thrombu; PAF). High-dose statin to keep LDL as low as possible. Physical rehabilitation. Code(s): I63.9 - CEREBRAL INFARCTION, UNSPECIFIED Qualifiers: Cerebral infarction mechanism: unspecified mechanism Qualified Code(s): I63.9 - Cerebral infarction, unspecified (6) Fall Code(s): W19.XXXA - UNSPECIFIED FALL, INITIAL ENCOUNTER Qualifiers: Encounter type: initial encounter Qualified Code(s): W19.XXXA - Unspecified fall, initial encounter (7) Hx of heart artery stent Assessment/Plan: Hx NC-->multiple stents. On ASA and clopidogrel (as well as warfarin for ventricular thrombus). Carvedilol changed to metoprolol for better AV inhibition. Clopidogrel held pending possible ablation therapy for atrial flutter (this will be restarted if pt does not have further atrial flutter with difficult-to- control VR, or marked sinus pauses that woulrd require PPM, as pt has multiple coronary stents, with risk of in-stent restenosis). Code(s): Z95.5 - PRESENCE OF CORONARY ANGIOPLASTY IMPLANT AND GRAFT (8) Hyperlipidemia Assessment/Plan: statin; keep LDL well below 70 mg/dL. Code(s): E78.5 - HYPERLIPIDEMIA, UNSPECIFIED Qualifiers: Hyperlipidemia type: pure hypercholesterolemia Qualified Code(s): E78.00 - Pure hypercholesterolemia, unspecified; E78.0 - Pure hypercholesterolemia (9) LV (left ventricular) mural thrombus Assessment/Plan: restarted warfarin; keep INR 2-3. Code(s): [id number] - (10) Hypotension Assessment/Plan: See under "atrial flutter". Code(s): I95.9 - HYPOTENSION, UNSPECIFIED (11) Chronic diastolic (congestive) heart failure Assessment/Plan: ECHO this admission: preserved LVEF, with regional wall abnormalities (apical, inferior); borderline dilated LV; cannot exclude LV apical thrombus. On carvedilol; hydralazine held until low BP has improved. Consider retrial of ARB, given CAD, enlarged LV, and that pt is now on hemodialysis. Pt was initially hyperkalemic, however F/u NT-BNP.. Code(s): I50.32 - CHRONIC DIASTOLIC (CONGESTIVE) HEART FAILURE (12) Atrial flutter Assessment/Plan: Pt is undergoing hemodialysis today. On metoprolol 12.5 mg q6h, with plans to increase dose slowly if BP allows. If pt develops atrial flutter and/or pauses that are refractory to present therapy, will have to start IV amiodarone, though he had side effects (headache ; ?vomiting) when on the medication during another admission earlier this year On warfarin for LV thrombus, atrial flutter. Code(s): I48.92 - UNSPECIFIED ATRIAL FLUTTER (13) ESRD (end stage renal disease) on dialysis Assessment/Plan: Pt for UF and hemodialysis. If metoprolol alone does not control rhythm and heart rate while attempting to remove fluid during dialysis, or pt becomes severely hypotensive, will have to consider amiodarone. Code(s): N18.6 - END STAGE RENAL DISEASE; Z99.2 - DEPENDENCE ON RENAL DIALYSIS (14) Hypothyroid Assessment/Plan: F/u TFTs (TSH is >6). Code(s): E03.9 - HYPOTHYROIDISM, UNSPECIFIED (15) Elevated LFTs Code(s): R94.5 - ABNORMAL RESULTS OF LIVER FUNCTION STUDIES
--- NOTE | 2018-02-21 11:53 | PN ---
Progress Note (short form) - Note Progress Note: seen while on dialysis no complaints tolerating the dialysis tx so far Current Medications Albumin Human (Albumin Human 25%) 12.5 gm IVPB Q30M [facility] Stop: 02/21/18 12:31 Albuterol/Ipratropium (Duoneb -) 1 amp NEB Q6H PRN PRN Reason: SHORTNESS OF BREATH Last Admin: 02/21/18 08:25 Dose: 1 amp Aspirin (Ecotrin -) 81 mg PO DAILY [facility] Last Admin: 02/21/18 09:39 Dose: 81 mg Escitalopram Oxalate (Lexapro -) 5 mg PO [facility] Last Admin: 02/20/18 21:07 Dose: 5 mg Guaifenesin (Diabetic Tussin Dm -) 10 ml PO Q6H PRN PRN Reason: COUGH Last Admin: 02/21/18 06:03 Dose: 10 ml Sodium Chloride (Normal Saline -) 250 mls @ 3,000 mls/hr IV PRN PRN PRN Reason: Hypotension during Dialysis Stop: 02/22/18 10:59 Insulin Aspart (Novolog Vial Sliding Scale -) 1 vial SQ HS [facility]; Protocol Last Admin: 02/20/18 21:14 Dose: 5 units Insulin Aspart (Novolog Vial Sliding Scale -) 1 vial SQ TIDAC [facility]; Protocol Last Admin: 02/21/18 06:19 Dose: 10 units Insulin Detemir (Levemir Vial) 20 units SQ ACBK [facility] Last Admin: 02/21/18 06:18 Dose: 20 units Lactobacillus Acidophilus (Bacid -) 1 tab PO DAILY [facility] Last Admin: 02/21/18 09:38 Dose: 1 tab Metoprolol Tartrate (Lopressor -) 12.5 mg PO Q6HPO [facility] Last Admin: 02/21/18 05:06 Dose: 12.5 mg Midodrine (Proamatine -) 5 mg PO TID-MID [facility] Last Admin: 02/21/18 09:40 Dose: 5 mg Polyethylene Glycol (Miralax (For Daily Use) -) 17 gm PO DAILY [facility] Last Admin: 02/21/18 09:39 Dose: 17 grams Tamsulosin HCl (Flomax -) 0.4 mg PO [facility] Last Admin: 02/20/18 21:07 Dose: 0.4 mg Warfarin Sodium (Coumadin -) 4 mg PO DAILY@1800 [facility] Last Admin: 02/20/18 17:02 Dose: Not Given Last Vital Signs Temp Pulse Resp BP Pulse Ox 98.8 F 64 18 114/62 99 02/21/18 10:45 02/21/18 11:20 02/21/18 11:20 02/21/18 11:20 02/21/18 09:00 lungs good air exch, some congestion heart reg abd soft nontender ext no edema CBC, BMP 02/21/18 05:30 02/21/18 05:30 CHF/ CARDIOMYOPATHY ESRD Plan- albumin prn for ;low bp fluid removal as don
--- NOTE | 2018-02-21 12:35 | PN ---
Progress Note (short form) - Note Progress Note: medical ICU note Current Medications Albumin Human (Albumin Human 25%) 12.5 gm IVPB Q30M [facility] Stop: 02/21/18 12:31 Albuterol/Ipratropium (Duoneb -) 1 amp NEB Q6H PRN PRN Reason: SHORTNESS OF BREATH Last Admin: 02/21/18 08:25 Dose: 1 amp Aspirin (Ecotrin -) 81 mg PO DAILY [facility] Last Admin: 02/21/18 09:39 Dose: 81 mg Escitalopram Oxalate (Lexapro -) 5 mg PO [facility] Last Admin: 02/20/18 21:07 Dose: 5 mg Guaifenesin (Diabetic Tussin Dm -) 10 ml PO Q6H PRN PRN Reason: COUGH Last Admin: 02/21/18 06:03 Dose: 10 ml Sodium Chloride (Normal Saline -) 250 mls @ 3,000 mls/hr IV PRN PRN PRN Reason: Hypotension during Dialysis Stop: 02/22/18 10:59 Insulin Aspart (Novolog Vial Sliding Scale -) 1 vial SQ HS [facility]; Protocol Last Admin: 02/20/18 21:14 Dose: 5 units Insulin Aspart (Novolog Vial Sliding Scale -) 1 vial SQ TIDAC [facility]; Protocol Last Admin: 02/21/18 06:19 Dose: 10 units Insulin Detemir (Levemir Vial) 20 units SQ ACBK [facility] Last Admin: 02/21/18 06:18 Dose: 20 units Lactobacillus Acidophilus (Bacid -) 1 tab PO DAILY [facility] Last Admin: 02/21/18 09:38 Dose: 1 tab Metoprolol Tartrate (Lopressor -) 12.5 mg PO Q6HPO [facility] Last Admin: 02/21/18 05:06 Dose: 12.5 mg Midodrine (Proamatine -) 5 mg PO TID-MID [facility] Last Admin: 02/21/18 09:40 Dose: 5 mg Polyethylene Glycol (Miralax (For Daily Use) -) 17 gm PO DAILY [facility] Last Admin: 02/21/18 09:39 Dose: 17 grams Tamsulosin HCl (Flomax -) 0.4 mg PO HS [facility] Last Admin: 02/20/18 21:07 Dose: 0.4 mg Warfarin Sodium (Coumadin -) 4 mg PO DAILY@1800 [facility] Last Admin: 02/20/18 17:02 Dose: Not Given Laboratory Results - last 24 hr 02/20/18 02/20/18 02/20/18 02:47 06:19 11:37 WBC RBC Hgb Hct MCV MCH MCHC RDW Plt Count MPV PT with INR INR Sodium Potassium Chloride Carbon Dioxide Anion Gap BUN Creatinine Creat Clearance w eGFR POC Glucometer [phone] 262.93202 Random Glucose Calcium Phosphorus Magnesium Total Bilirubin AST ALT Alkaline Phosphatase Total Protein Albumin 02/20/18 02/21/18 02/21/18 16:27 05:30 05:30 WBC 7.3 RBC 3.53 L Hgb 9.7 L Hct 31.3 L MCV 88.6 MCH 27.4 MCHC 30.9 L RDW 19.9 H Plt Count 99 L MPV 10.9 D PT with INR 21.00 H INR 1.86 H Sodium Potassium Chloride Carbon Dioxide Anion Gap BUN Creatinine Creat Clearance w eGFR POC Glucometer [phone] Random Glucose Calcium Phosphorus Magnesium Total Bilirubin AST ALT Alkaline Phosphatase Total Protein Albumin 02/21/18 05:30 WBC RBC Hgb Hct MCV MCH MCHC RDW Plt Count MPV PT with INR INR Sodium 142 Potassium 4.7 Chloride 103 Carbon Dioxide 30 Anion Gap 9 BUN 48 H Creatinine 3.5 H Creat Clearance w eGFR 17.02 POC Glucometer Random Glucose 222 H Calcium 8.2 L Phosphorus 3.9 D Magnesium 2.4 Total Bilirubin 0.7 AST 122 H D ALT 419 H D Alkaline Phosphatase 110 Total Protein 5.1 L Albumin 2.3 L Vital Signs Temperature 98.8 F 02/21/18 10:45 Pulse Rate 59 L 02/21/18 12:20 Respiratory Rate 18 02/21/18 12:20 Blood Pressure 113/55 02/21/18 12:20 O2 Sat by Pulse Oximetry (%) 99 02/21/18 09:00 CC; None ````````````````` skin--ecchymosis L thigh eyes--non injected; eomi Chest--with RT PC (receiving HD) lungs--diminished breaths bilat heart--RR abd--soft ext--no visible pedal edema neuro--awake; able to greet people, good eye contact; and can verbalize but with impaired sensorium; is able to follow some commands but listless for most part ``````````````````````````````````````````````` Summ > SVT--episodes of AF still occur; but not sustaineed; now undergoing HD w/o arrhythmia; Amiodarone being considered by Cardiology > Hypotension--mulitfactorial; improved with Midodrine, and better able to tolerate HD. > ESRD--on HD Via PC > anemia--H/h stable > high Transaminases--trending downward; cause not likely to be hepatitis but rather rt sided heart failure in face of low BP; will check daily; might need US if remains high > CAD-- post angioplasty, has ventricular thrombus, on Plavix, asa, warfarin > DM--on Levimir; see endocrine note > Hematoma left thigh and hip --no intervention needed so far > Asp PNA--seen by ID; off zosyn > CHF--2nd volume overload; hope to resume dialysis at full capacity once BP sufficiently high ~~~~~~~~~~~~~~~ Dr Jean......for Dr Hess
--- NOTE | 2018-02-21 12:49 | PN ---
Progress Note (short form) - Note Progress Note: Dry cough BGM fluctuating No hypos Apetite good Vital Signs Period Temp Pulse Resp BP Sys/Simons Pulse Ox Last 24 Hr 97.6 F-99 F 59-75 13-20 93-132/50-63 98-98 PE: awake, alert Neck: Supple HEENT: EOMI Lungs:CTA CVS: S1S2 Abd: Benign Ext: No edema CMP Sodium 142 mmol/L (136-145) 02/21/18 05:30 Potassium 4.7 mmol/L (3.5-5.1) 02/21/18 05:30 Chloride 103 mmol/L (98-107) 02/21/18 05:30 Carbon Dioxide 30 mmol/L (21-32) 02/21/18 05:30 Anion Gap 9 MMOL/L (8-16) 02/21/18 05:30 BUN 48 mg/dL (7-18) H 02/21/18 05:30 Creatinine 3.5 mg/dL (0.7-1.3) H 02/21/18 05:30 Creat Clearance w eGFR 17.02 (>60) 02/21/18 05:30 POC Glucometer [phone] UNITS (80-120) 02/20/18 16:27 Random Glucose 222 mg/dL (74-106) H 02/21/18 05:30 Lactic Acid 1.5 mmol/L (0.0-2.0) 02/13/18 05:30 Calcium 8.2 mg/dL (8.5-10.1) L 02/21/18 05:30 Phosphorus 3.9 mg/dL (2.5-4.9) D 02/21/18 05:30 Magnesium 2.4 mg/dL (1.8-2.4) 02/21/18 05:30 Total Bilirubin 0.7 mg/dL (0.2-1.0) 02/21/18 05:30 AST 122 U/L (15-37) H D 02/21/18 05:30 ALT 419 U/L (12-78) H D 02/21/18 05:30 Alkaline Phosphatase 110 U/L (45-117) 02/21/18 05:30 Ammonia 22.7 umol/L (11-32) 02/20/18 05:30 Creatine Kinase 38 IU/L (39-308) L 02/17/18 05:30 Troponin I 0.06 ng/ml (0.00-0.05) H D 02/17/18 05:30 Total Protein 5.1 g/dl (6.4-8.2) L 02/21/18 05:30 Albumin 2.3 g/dl (3.4-5.0) L 02/21/18 05:30 Total Amylase 67 U/L (25-115) 02/12/18 23:40 Lipase 236 U/L (73-393) 02/12/18 23:40 TSH 6.01 uIU/ml (0.358-3.74) H D 02/17/18 05:30 Current Medications Generic Name Dose Route Start Last Admin Trade Name Freq PRN Reason Stop Dose Admin Albuterol/Ipratropium 1 amp 02/14/18 12:11 02/21/18 08:25 Duoneb - NEB 1 amp Q6H PRN Administration SHORTNESS OF BREATH Aspirin 81 mg 02/15/18 10:00 02/21/18 09:39 Ecotrin - PO 81 mg DAILY [facility] Administration Escitalopram Oxalate 5 mg 02/13/18 22:00 02/20/18 21:07 Lexapro - PO 5 mg HS [facility] Administration Guaifenesin 10 ml 02/17/18 13:13 02/21/18 06:03 Diabetic Tussin Dm - PO 10 ml Q6H PRN Administration COUGH Sodium Chloride 250 mls @ 3,000 mls/hr 02/21/18 11:00 Normal Saline - IV 02/22/18 10:59 PRN PRN Hypotension during Dialysis Insulin Aspart 1 vial 02/18/18 22:00 02/20/18 21:14 Novolog Vial Sliding Scale - SQ 5 units HS [facility] Administration Protocol Insulin Aspart 1 vial 02/20/18 11:12 02/21/18 12:40 Novolog Vial Sliding Scale - SQ 10 units TIDAC [facility] Administration Protocol Insulin Detemir 20 units 02/20/18 11:09 02/21/18 06:18 Levemir Vial SQ 20 units ACBK [facility] Administration Lactobacillus Acidophilus 1 tab 02/19/18 10:00 02/21/18 09:38 Bacid - PO 1 tab DAILY [facility] Administration Metoprolol Tartrate 12.5 mg 02/19/18 06:00 08/25/18 05:06 Lopressor - PO 12.5 mg Q6HPO [facility] Administration Midodrine 5 mg 02/20/18 12:30 02/21/18 09:40 Proamatine - PO 5 mg TID-MID [facility] Administration Polyethylene Glycol 17 gm 02/17/18 20:15 02/21/18 09:39 Miralax (For Daily Use) - PO 17 grams DAILY [facility] Administration Tamsulosin HCl 0.4 mg 02/13/18 22:00 02/20/18 21:07 Flomax - PO 0.4 mg HS [facility] Administration Warfarin Sodium 4 mg 02/18/18 18:00 02/20/18 17:02 Coumadin - PO Not Given DAILY@1800 [facility] AP: T2DM with hyperlgycemia ESRD S/P Asystole of 4 sec CAD H/O CVA Possible Aspiration Pneumonia Blood sugar goal around 200 to avoid hypoglycemia as pt has frequent hypoglycemia at home especially at night. Option Insulin drip discussed with family who want to continue with current basal/bolus regimen for now. BGM QACHS and 3 AM Increase Levemir 24 units today Novolog ss coverage Will f/u Problem List - Problems (1) Chronic diastolic (congestive) heart failure Code(s): I50.32 - CHRONIC DIASTOLIC (CONGESTIVE) HEART FAILURE (2) Hip hematoma, left Code(s): S70.02XA - CONTUSION OF LEFT HIP, INITIAL ENCOUNTER Qualifiers: Encounter type: subsequent encounter Qualified Code(s): S70.02XD - Contusion of left hip, subsequent encounter (3) Hypotension Code(s): I95.9 - HYPOTENSION, UNSPECIFIED (4) Vomiting Code(s): R11.10 - VOMITING, UNSPECIFIED (5) ESRD (end stage renal disease) on dialysis Code(s): N18.6 - END STAGE RENAL DISEASE; Z99.2 - DEPENDENCE ON RENAL DIALYSIS
[2018-02-21] MEDS: ALBUMIN HUMAN 25% 12.5 GM/50 ML VIAL IVPB SCH ×4 (12:50→14:19)
[2018-02-21] MEDS: WARFARIN NA 2 MG TABLET (UD) PO SCH (18:12)
--- NOTE | 2018-02-21 20:56 | PN ---
Progress Note, Physician - Current Medication List Current Medications: Active Medications Albuterol/Ipratropium (Duoneb -) 1 amp NEB Q6H PRN PRN Reason: SHORTNESS OF BREATH Last Admin: 02/21/18 16:54 Dose: 1 amp Aspirin (Ecotrin -) 81 mg PO DAILY [facility] Last Admin: 02/21/18 09:39 Dose: 81 mg Escitalopram Oxalate (Lexapro -) 5 mg PO HS [facility] Last Admin: 02/20/18 21:07 Dose: 5 mg Guaifenesin (Diabetic Tussin Dm -) 10 ml PO Q6H PRN PRN Reason: COUGH Last Admin: 02/21/18 14:20 Dose: 10 ml Sodium Chloride (Normal Saline -) 250 mls @ 3,000 mls/hr IV PRN PRN PRN Reason: Hypotension during Dialysis Stop: 02/22/18 10:59 Insulin Aspart (Novolog Vial Sliding Scale -) 1 vial SQ HS [facility]; Protocol Last Admin: 02/20/18 21:14 Dose: 5 units Insulin Aspart (Novolog Vial Sliding Scale -) 1 vial SQ TIDAC [facility]; Protocol Last Admin: 02/21/18 16:56 Dose: 10 units Insulin Detemir (Levemir Vial) 24 units SQ ACBK [facility] Lactobacillus Acidophilus (Bacid -) 1 tab PO DAILY [facility] Last Admin: 02/21/18 09:38 Dose: 1 tab Metoprolol Tartrate (Lopressor -) 12.5 mg PO Q6HPO [facility] Last Admin: 02/21/18 18:12 Dose: 12.5 mg Midodrine (Proamatine -) 5 mg PO TID-MID [facility] Last Admin: 02/21/18 18:14 Dose: 5 mg Polyethylene Glycol (Miralax (For Daily Use) -) 17 gm PO DAILY [facility] Last Admin: 02/21/18 09:39 Dose: 17 grams Tamsulosin HCl (Flomax -) 0.4 mg PO HS [facility] Last Admin: 02/20/18 21:07 Dose: 0.4 mg Warfarin Sodium (Coumadin -) 4 mg PO DAILY@1800 [facility] Last Admin: 02/21/18 18:12 Dose: 4 mg - Objective Vital Signs: Vital Signs Temperature 98.5 F 02/21/18 18:00 Pulse Rate 70 02/21/18 20:00 Respiratory Rate 16 02/21/18 20:38 Blood Pressure 122/59 02/21/18 20:00 O2 Sat by Pulse Oximetry (%) 99 02/21/18 20:38 Labs: CBC, BMP 02/21/18 05:30 02/21/18 05:30 INR, PTT INR 1.86 (0.83-1.09) H 02/21/18 05:30 Problem List - Problems (1) Weakness generalized Code(s): R53.1 - WEAKNESS (2) AV fistula Code(s): I77.0 - ARTERIOVENOUS FISTULA, ACQUIRED (3) Anxiety and depression Code(s): F41.8 - OTHER SPECIFIED ANXIETY DISORDERS (4) BPH (benign prostatic hypertrophy) Code(s): N40.0 - BENIGN PROSTATIC HYPERPLASIA WITHOUT LOWER URINRY TRACT SYMP (5) CVA (cerebral infarction) Code(s): I63.9 - CEREBRAL INFARCTION, UNSPECIFIED Qualifiers: Cerebral infarction mechanism: unspecified mechanism Qualified Code(s): I63.9 - Cerebral infarction, unspecified (6) Diabetes mellitus Code(s): E11.9 - TYPE 2 DIABETES MELLITUS WITHOUT COMPLICATIONS Qualifiers: Diabetes mellitus type: type 2 Diabetes mellitus complication status: with ophthalmic complications Diabetes mellitus complication detail: with diabetic retinopathy (7) Fall Code(s): W19.XXXA - UNSPECIFIED FALL, INITIAL ENCOUNTER Qualifiers: Encounter type: initial encounter Qualified Code(s): W19.XXXA - Unspecified fall, initial encounter (8) Hx of heart artery stent Code(s): Z95.5 - PRESENCE OF CORONARY ANGIOPLASTY IMPLANT AND GRAFT (9) Hyperlipidemia Code(s): E78.5 - HYPERLIPIDEMIA, UNSPECIFIED Qualifiers: Hyperlipidemia type: pure hypercholesterolemia Qualified Code(s): E78.00 - Pure hypercholesterolemia, unspecified; E78.0 - Pure hypercholesterolemia (10) LV (left ventricular) mural thrombus Code(s): [id number] - (11) Hypotension Code(s): I95.9 - HYPOTENSION, UNSPECIFIED (12) Chronic diastolic (congestive) heart failure Code(s): I50.32 - CHRONIC DIASTOLIC (CONGESTIVE) HEART FAILURE (13) Atrial flutter Code(s): I48.92 - UNSPECIFIED ATRIAL FLUTTER
[2018-02-21] MEDS ORDERED: PT OWN MED DRAWER 7, Y5N ONE (21:11)
[2018-02-21] MEDS: ESCITALOPRAM OXALATE 10 MG TABLET (FP) PO SCH (22:37)
[2018-02-21] MEDS: TAMSULOSIN HCL 0.4 MG CAP.ER.24H (FP) PO SCH (22:37)
[2018-02-21] MEDS: ROSUVASTATIN CA 10 MG TABLET (FP) PO SCH (22:38)
[2018-02-22 05:55] LABS: HEMATOCRIT 32.5 % (35.4-49); MCH 27.7 pg (25.7-33.7); MCHC 30.8 g/dl (32.0-35.9); MEAN CELL VOLUME 89.7 fl (80-96); PLATELET COUNT 109 K/MM3 (134-434); RBC 3.62 M/mm3 (4.00-5.60); RDW 19.6 % (11.9-15.9); WHITE BLOOD COUNT 7.7 K/mm3 (4.0-10.0)
[2018-02-22 06:10] LABS: INR 1.6 (0.83-1.09); PROTHROMBIN TIME (PATIENT) 18.1 SEC (9.7-13.0)
[2018-02-22 06:21] LABS: ALBUMIN 2.7 g/dl (3.4-5.0); ANION GAP 6 MMOL/L (8-16); BLOOD UREA NITROGEN 33 mg/dL (7-18); CALCIUM 7.9 mg/dL (8.5-10.1); CHLORIDE 102 mmol/L (98-107); CO2 33 mmol/L (21-32); GLUCOSE,RANDOM 222 mg/dL (74-106); POTASSIUM 4.4 mmol/L (3.5-5.1); SODIUM 141 mmol/L (136-145)
[2018-02-22 06:25] LABS: ALK PHOS 102 U/L (45-117); BILIRUBIN,TOTAL 0.8 mg/dL (0.2-1.0); CREATININE 2.8 mg/dL (0.7-1.3); SGOT/AST 51 U/L (15-37); SGPT/ALT 295 U/L (12-78); TOT PROT 5.5 g/dl (6.4-8.2)
[2018-02-22] MEDS: INSULIN (LEVEMIR) 100 UNITS/ML UNITS SQ SCH (06:47)
[2018-02-22] MEDS: METOPROLOL TARTRATE 25 MG TABLET (FP) PO SCH ×4 (06:47→17:29)
[2018-02-22] MEDS: INSULIN SLIDING SCALE (NOVOLOG) 1 VIAL SQ SCH ×4 (06:48→21:41)
--- NOTE | 2018-02-22 07:39 | PN ---
Progress Note (short form) - Note Progress Note: PULM/CCM Patient seen and examined in the ICU. CA + Ox3. Got HD yesterday for 3.5L off w /o issues. NAD. Active Medications Albuterol/Ipratropium (Duoneb -) 1 amp NEB Q6H PRN PRN Reason: SHORTNESS OF BREATH Last Admin: 02/22/18 08:20 Dose: 1 amp Aspirin (Ecotrin -) 81 mg PO DAILY [facility] Last Admin: 02/22/18 09:43 Dose: 81 mg Escitalopram Oxalate (Lexapro -) 5 mg PO [facility] Last Admin: 02/21/18 22:37 Dose: 5 mg Guaifenesin (Diabetic Tussin Dm -) 10 ml PO Q6H PRN PRN Reason: COUGH Last Admin: 02/21/18 14:20 Dose: 10 ml Sodium Chloride (Normal Saline -) 250 mls @ 3,000 mls/hr IV PRN PRN PRN Reason: Hypotension during Dialysis Stop: 02/22/18 10:59 Insulin Aspart (Novolog Vial Sliding Scale -) 1 vial SQ HS [facility]; Protocol Last Admin: 02/21/18 22:38 Dose: 4 units Insulin Aspart (Novolog Vial Sliding Scale -) 1 vial SQ TIDAC [facility]; Protocol Last Admin: 02/22/18 06:48 Dose: 8 units Insulin Detemir (Levemir Vial) 24 units SQ ACBK [facility] Last Admin: 02/22/18 06:47 Dose: 24 units Lactobacillus Acidophilus (Bacid -) 1 tab PO DAILY [facility] Last Admin: 02/22/18 09:42 Dose: 1 tab Metoprolol Tartrate (Lopressor -) 12.5 mg PO Q12H [facility] Metoprolol Tartrate (Lopressor -) 25 mg PO Q12H [facility] Midodrine (Proamatine -) 5 mg PO TID-MID [facility] Last Admin: 02/22/18 09:43 Dose: 5 mg Polyethylene Glycol (Miralax (For Daily Use) -) 17 gm PO DAILY [facility] Last Admin: 02/21/18 09:39 Dose: 17 grams Rosuvastatin Calcium (Crestor -) 10 mg PO [facility] Last Admin: 02/21/18 22:38 Dose: 10 mg Tamsulosin HCl (Flomax -) 0.4 mg PO [facility] Last Admin: 02/21/18 22:37 Dose: 0.4 mg Warfarin Sodium (Coumadin -) 4 mg PO DAILY@1800 [facility] Last Admin: 02/21/18 18:12 Dose: 4 mg V/S Period Temp Pulse Resp BP Sys/Simons Pulse Ox Last 24 Hr 98.1 F-98.8 F 59-80 14-18 105-131/52-76 99 Intake & Output 02/19/18 02/20/18 02/21/18 02/22/18 23:59 23:59 23:59 23:59 Intake Total 350 600 410 150 Output Total 0 0 0 Balance 350 600 410 150 Weight 71 kg 69.4 kg 65.969 kg GEN: Awake and alert, NAD PULM: Bilateral ronchi & bibasilar rales, no wheeze CV: RRR ABD: soft, nontender EXT: + Pulses, WWP X4, no edema CBC, BMP 02/22/18 05:30 02/22/18 05:30 INR, PTT INR 1.60 (0.83-1.09) H 02/22/18 05:30 Microbiology 02/15/18 16:50 Blood - Peripheral Venous Blood Culture - Final NO GROWTH AFTER 5 DAYS INCUBATION 02/15/18 16:50 Blood - Peripheral Venous Blood Culture - Final NO GROWTH AFTER 5 DAYS INCUBATION 02/12/18 23:40 Blood - Peripheral Venous Blood Culture - Final NO GROWTH AFTER 5 DAYS INCUBATION CXR 02/23: Since 02/20/2018 at 0806 hours, the congestive and infiltrative changes have diminished slightly. Follow-up recommended. Impression : slight improvement. ASSESS: Syncope Sinus Pause Paroxysmal Atrial Fibrillation with RVR (now in sinus rhythm) CAD LV Diastolic Dysfunction HTN Hyperlipidemia DM LV thrombus h/o CVA ESRD on HD PLAN: - O2 to keep Spo2 >90% - HD today I will try to pull off > 3L as tolerated - rate control with metoprolol - continue anticoagulation with target INR 2-3 - glucose control - D/c --> Med Surg DGL, ACNP-BC [facility] ICU PULM/[facility] [id number] Critical Care Total Critical Care Time (in minutes): 38 Critical Care Statement: The care of this patient involved high complexity decision making to prevent further life threatening deterioration of the patient 's condition and/or to evaluate & treat vital organ system(s) failure or risk of failure.
[2018-02-22] MEDS: ALBUTEROL SO4 2.5/IPRATROPIUM 0.5 INH SOL 3 ML VIAL.NEB. NEB PRN ×2 (08:20→16:32)
[2018-02-22] MEDS ORDERED: METOPROLOL TARTRATE 25 MG TABLET (FP) PO ONE (09:15)
[2018-02-22] MEDS: LACTOBACILLUS ACIDOPHILUS 1 TABLET PO SCH (09:42)
[2018-02-22] MEDS: ASPIRIN COATED 81 MG TABLET.EC PO SCH (09:43)
[2018-02-22] MEDS: MIDODRINE HCL 5 MG TABLET PO SCH ×3 (09:43→17:51)
[2018-02-22] MEDS: POLYETHYLENE GLYCOL 3350 119 GM BTL PO SCH (10:23)
[2018-02-22] MEDS: guaiFENesin/D-M SUGAR-FREE/ACLHOL-FREE 118 ML BOTTLE PO PRN (10:27)
--- NOTE | 2018-02-22 16:17 | PN ---
Progress Note (short form) - Note Progress Note: 77 M CAD s/p PCI, Hypertension, Hyperlipidemia, Left Ventricular Thrombus on Coumadin weakness and hypotension. CHF/Volume overload ESRD on HD with Hyperkalemia Anemia Hip Hematoma w/o fracture New Aflutter with RVR Current Medications Albuterol/Ipratropium (Duoneb -) 1 amp NEB Q6H PRN PRN Reason: SHORTNESS OF BREATH Last Admin: 02/22/18 08:20 Dose: 1 amp Aspirin (Ecotrin -) 81 mg PO DAILY [facility] Last Admin: 02/22/18 09:43 Dose: 81 mg Escitalopram Oxalate (Lexapro -) 5 mg PO HS [facility] Last Admin: 02/21/18 22:37 Dose: 5 mg Guaifenesin (Diabetic Tussin Dm -) 10 ml PO Q6H PRN PRN Reason: COUGH Last Admin: 02/22/18 10:27 Dose: 10 ml Insulin Aspart (Novolog Vial Sliding Scale -) 1 vial SQ HS [facility]; Protocol Last Admin: 02/21/18 22:38 Dose: 4 units Insulin Aspart (Novolog Vial Sliding Scale -) 1 vial SQ TIDAC [facility]; Protocol Last Admin: 02/22/18 12:25 Dose: 10 units Insulin Detemir (Levemir Vial) 24 units SQ ACBK [facility] Last Admin: 02/22/18 06:47 Dose: 24 units Lactobacillus Acidophilus (Bacid -) 1 tab PO DAILY [facility] Last Admin: 02/22/18 09:42 Dose: 1 tab Metoprolol Tartrate (Lopressor -) 12.5 mg PO Q12H [facility] Last Admin: 02/22/18 12:29 Dose: 12.5 mg Metoprolol Tartrate (Lopressor -) 25 mg PO Q12H [facility] Midodrine (Proamatine -) 5 mg PO TID-MID [facility] Last Admin: 02/22/18 14:21 Dose: 5 mg Polyethylene Glycol (Miralax (For Daily Use) -) 17 gm PO DAILY [facility] Last Admin: 02/22/18 10:23 Dose: 17 grams Rosuvastatin Calcium (Crestor -) 10 mg PO HS [facility] Last Admin: 02/21/18 22:38 Dose: 10 mg Tamsulosin HCl (Flomax -) 0.4 mg PO HS [facility] Last Admin: 02/21/18 22:37 Dose: 0.4 mg Warfarin Sodium (Coumadin -) 4 mg PO DAILY@1800 [facility] Last Admin: 02/21/18 18:12 Dose: 4 mg uneventful 24 h no arrhythmias on higher dose of beta pradeep now lost 8 lbs persistent hiccups started yesterday Last Vital Signs Temp Pulse Resp BP Pulse Ox 98.0 F 74 18 111/53 99 02/22/18 14:00 02/22/18 14:00 02/22/18 14:00 02/22/18 14:00 02/22/18 09:00 alert no complaints lungs good air exch, more clear heart reg abd soft nontender in epig area ext no edema CBC, BMP 02/22/18 05:30 02/22/18 05:30 CBC, BMP 02/21/18 05:30 02/21/18 05:30 CHF/ CARDIOMYOPATHY/fluid overload ESRD hiccups r/o gastric irritation was on PPI at beginning of hosp stay will resume Plan- pantoprazole
--- NOTE | 2018-02-22 17:03 | PN ---
Progress Note (short form) - Note Progress Note: Feels better Transferred out of ICU No hypos Apetite good Vital Signs Period Temp Pulse Resp BP Sys/Simons Pulse Ox Last 24 Hr 98.0 F-98.5 F 67-80 14-18 100-122/51-76 99-99 PE: awake, alert Neck: Supple HEENT: EOMI Lungs:CTA CVS: S1S2 Abd: Benign Ext: No edema CMP Sodium 141 mmol/L (136-145) 02/22/18 05:30 Potassium 4.4 mmol/L (3.5-5.1) 02/22/18 05:30 Chloride 102 mmol/L (98-107) 02/22/18 05:30 Carbon Dioxide 33 mmol/L (21-32) H 02/22/18 05:30 Anion Gap 6 MMOL/L (8-16) L 02/22/18 05:30 BUN 33 mg/dL (7-18) H 02/22/18 05:30 Creatinine 2.8 mg/dL (0.7-1.3) H 02/22/18 05:30 Creat Clearance w eGFR 22.03 (>60) 02/22/18 05:30 POC Glucometer 271.49691 UNITS (80-120) 02/22/18 11:53 Random Glucose 222 mg/dL (74-106) H 02/22/18 05:30 Lactic Acid 1.5 mmol/L (0.0-2.0) 02/13/18 05:30 Calcium 7.9 mg/dL (8.5-10.1) L 02/22/18 05:30 Phosphorus 3.9 mg/dL (2.5-4.9) D 02/21/18 05:30 Magnesium 2.4 mg/dL (1.8-2.4) 02/21/18 05:30 Total Bilirubin 0.8 mg/dL (0.2-1.0) 02/22/18 05:30 AST 51 U/L (15-37) H D 02/22/18 05:30 ALT 295 U/L (12-78) H D 02/22/18 05:30 Alkaline Phosphatase 102 U/L (45-117) 02/22/18 05:30 Ammonia 22.7 umol/L (11-32) 02/20/18 05:30 Creatine Kinase 38 IU/L (39-308) L 02/17/18 05:30 Troponin I 0.06 ng/ml (0.00-0.05) H D 02/17/18 05:30 B-Natriuretic Peptide 88338.90 pg/ml (5-450) H 02/21/18 20:05 Total Protein 5.5 g/dl (6.4-8.2) L 02/22/18 05:30 Albumin 2.7 g/dl (3.4-5.0) L 02/22/18 05:30 Total Amylase 67 U/L (25-115) 02/12/18 23:40 Lipase 236 U/L (73-393) 02/12/18 23:40 TSH 6.01 uIU/ml (0.358-3.74) H D 02/17/18 05:30 Free T4 0.84 ng/dl (0.76-1.16) 02/21/18 20:05 Current Medications Generic Name Dose Route Start Last Admin Trade Name Freq PRN Reason Stop Dose Admin Albuterol/Ipratropium 1 amp 02/14/18 12:11 02/22/18 16:32 Duoneb - NEB 1 amp Q6H PRN Administration SHORTNESS OF BREATH Aspirin 81 mg 02/15/18 10:00 02/22/18 09:43 Ecotrin - PO 81 mg DAILY [facility] Administration Escitalopram Oxalate 5 mg 02/13/18 22:00 02/21/18 22:37 Lexapro - PO 5 mg HS [facility] Administration Guaifenesin 10 ml 02/17/18 13:13 02/22/18 10:27 Diabetic Tussin Dm - PO 10 ml Q6H PRN Administration COUGH Insulin Aspart 1 vial 02/18/18 22:00 02/21/18 22:38 Novolog Vial Sliding Scale - SQ 4 units HS [facility] Administration Protocol Insulin Aspart 1 vial 02/20/18 11:12 02/22/18 12:25 Novolog Vial Sliding Scale - SQ 10 units TIDAC [facility] Administration Protocol Insulin Detemir 24 units 02/22/18 07:00 02/22/18 06:47 Levemir Vial SQ 24 units ACBK [facility] Administration Lactobacillus Acidophilus 1 tab 02/19/18 10:00 02/22/18 09:42 Bacid - PO 1 tab DAILY [facility] Administration Metoprolol Tartrate 12.5 mg 02/22/18 12:00 02/22/18 12:29 Lopressor - PO 12.5 mg Q12H [facility] Administration Metoprolol Tartrate 25 mg 02/22/18 18:00 Lopressor - PO Q12H [facility] Midodrine 5 mg 02/20/18 12:30 02/22/18 14:21 Proamatine - PO 5 mg TID-MID [facility] Administration Pantoprazole Sodium 40 mg 02/22/18 16:30 Protonix Packets For Oral Suspension - PO DAILY [facility] Polyethylene Glycol 17 gm 02/17/18 20:15 02/22/18 10:23 Miralax (For Daily Use) - PO 17 grams DAILY [facility] Administration Rosuvastatin Calcium 10 mg 02/21/18 22:00 02/21/18 22:38 Crestor - PO 10 mg HS [facility] Administration Tamsulosin HCl 0.4 mg 02/13/18 22:00 02/21/18 22:37 Flomax - PO 0.4 mg HS [facility] Administration Warfarin Sodium 4 mg 02/18/18 18:00 02/21/18 18:12 Coumadin - PO 4 mg DAILY@1800 [facility] Administration AP: T2DM with hyperlgycemia ESRD S/P Asystole of 4 sec CAD H/O CVA Possible Aspiration Pneumonia Blood sugar goal around 200 to avoid hypoglycemia as pt has frequent hypoglycemia at home especially at night. Option Insulin drip discussed with family who want to continue with current basal/bolus regimen for now. BGM QACHS and 3 AM Continue Levemir 24 units. Novolog ss coverage Rpt TSH as outpt. Will f/u Problem List - Problems (1) Chronic diastolic (congestive) heart failure Code(s): I50.32 - CHRONIC DIASTOLIC (CONGESTIVE) HEART FAILURE (2) Hip hematoma, left Code(s): S70.02XA - CONTUSION OF LEFT HIP, INITIAL ENCOUNTER Qualifiers: Encounter type: subsequent encounter Qualified Code(s): S70.02XD - Contusion of left hip, subsequent encounter (3) Hypotension Code(s): I95.9 - HYPOTENSION, UNSPECIFIED (4) ESRD (end stage renal disease) on dialysis Code(s): N18.6 - END STAGE RENAL DISEASE; Z99.2 - DEPENDENCE ON RENAL DIALYSIS
[2018-02-22] MEDS: PANTOPRAZOLE SOD 40 MG SUSPENSION PACKET PO SCH (17:28)
[2018-02-22] MEDS: WARFARIN NA 2 MG TABLET (UD) PO SCH (17:29)
[2018-02-22] MEDS ORDERED: WARFARIN NA 2 MG TABLET (UD) PO ONE (20:30)
[2018-02-22] MEDS ORDERED: INSULIN (NOVOLOG) ASPART 100 UNITS/ML 10ML VIAL ONE (21:11)
[2018-02-22] MEDS: ESCITALOPRAM OXALATE 10 MG TABLET (FP) PO SCH (21:39)
[2018-02-22] MEDS: ROSUVASTATIN CA 10 MG TABLET (FP) PO SCH (21:40)
[2018-02-22] MEDS: TAMSULOSIN HCL 0.4 MG CAP.ER.24H (FP) PO SCH (21:41)
--- NOTE | 2018-02-22 21:55 | EKG ---
Test Reason : Blood Pressure : / mmHG Vent. Rate : 071 BPM Atrial Rate : 071 BPM P-R Int : 176 ms QRS Dur : 092 ms QT Int : 420 ms P-R-T Axes : 031 -63 108 degrees QTc Int : 456 ms SINUS RHYTHM WITH OCCASIONAL PREMATURE VENTRICULAR COMPLEXES POSSIBLE LEFT ATRIAL ENLARGEMENT LEFT AXIS DEVIATION INFERIOR INFARCT (CITED ON OR BEFORE 09-APR-2016) ANTEROLATERAL INFARCT (CITED ON OR BEFORE 02-JAN-2015) ABNORMAL ECG WHEN COMPARED WITH ECG OF 17-FEB-2018 10:19, PREMATURE VENTRICULAR COMPLEXES ARE NOW PRESENT ABERRANT CONDUCTION IS NO LONGER PRESENT Confirmed by SERGIO GALVAN, SOPHIE ([id number]) on 02/22/2018 9:54:44 PM Referred By: Hardy DOUGHERTY Confirmed By:SOPHIE HILL MD
[2018-02-23] MEDS: METOPROLOL TARTRATE 25 MG TABLET (FP) PO SCH ×4 (00:40→18:32)
--- NOTE | 2018-02-23 04:16 | PN ---
Progress Note, Physician Chief Complaint: Pt alert; asymptomatic. History of Present Illness: Patient is a 77 year old male (b. [place]), with PMHx of CVA, CAD ([place]--> 5 coronary stents at [facility] 08/17, with subsequent renal failure and ventricular thrombus; currently on ASA, clopidogrel, and warfarin), ESRD ( hemodialysis since 11/2017), diastolic CHF, HTN, HLD, s/p GI Bleed, Anxiety, Diabetes Mellitus, who presents with generalized weakness and low blood pressure. The patients (Dr. Davila) states that this afternoon he vomited and noted that his blood pressure was relatively low and he was feeling weak. She brought him to [facility] ER where he has history. He receives dialysis every Friday, , and Friday, but did not go today. Earlier in the day, prior to planned hemodialysis, he underwent renal angioplasty by the vascular surgeon (Dr. Huff) and was NPO. Surgical Hx: December 05 2017 - Renal angioplasty. 02/12/18 : Left AVFistula with stenosis. [place] (Jul, 2017) with multiple stent placements simultaenously. PCP: Coleman Hess - Current Medication List Current Medications: Active Medications Albuterol/Ipratropium (Duoneb -) 1 amp NEB Q6H PRN PRN Reason: SHORTNESS OF BREATH Last Admin: 02/22/18 16:32 Dose: 1 amp Aspirin (Ecotrin -) 81 mg PO DAILY [facility] Last Admin: 02/22/18 09:43 Dose: 81 mg Escitalopram Oxalate (Lexapro -) 5 mg PO HS [facility] Last Admin: 02/22/18 21:39 Dose: 5 mg Guaifenesin (Diabetic Tussin Dm -) 10 ml PO Q6H PRN PRN Reason: COUGH Last Admin: 02/22/18 10:27 Dose: 10 ml Insulin Aspart (Novolog Vial Sliding Scale -) 1 vial SQ HS [facility]; Protocol Last Admin: 02/22/18 21:41 Dose: Not Given Insulin Aspart (Novolog Vial Sliding Scale -) 1 vial SQ TIDAC [facility]; Protocol Last Admin: 02/22/18 17:28 Dose: 4 units Insulin Detemir (Levemir Vial) 24 units SQ ACBK [facility] Last Admin: 02/22/18 06:47 Dose: 24 units Lactobacillus Acidophilus (Bacid -) 1 tab PO DAILY [facility] Last Admin: 02/22/18 09:42 Dose: 1 tab Metoprolol Tartrate (Lopressor -) 12.5 mg PO Q12H [facility] Last Admin: 02/23/18 00:40 Dose: 12.5 mg Metoprolol Tartrate (Lopressor -) 25 mg PO Q12H [facility] Last Admin: 02/22/18 17:29 Dose: 25 mg Midodrine (Proamatine -) 5 mg PO TID-MID [facility] Last Admin: 02/22/18 17:51 Dose: 5 mg Pantoprazole Sodium (Protonix Packets For Oral Suspension -) 40 mg PO DAILY [facility] Last Admin: 02/22/18 17:28 Dose: 40 mg Polyethylene Glycol (Miralax (For Daily Use) -) 17 gm PO DAILY [facility] Last Admin: 02/22/18 10:23 Dose: 17 grams Rosuvastatin Calcium (Crestor -) 10 mg PO [facility] Last Admin: 02/22/18 21:40 Dose: 10 mg Tamsulosin HCl (Flomax -) 0.4 mg PO [facility] Last Admin: 02/22/18 21:41 Dose: 0.4 mg Warfarin Sodium (Coumadin -) 4 mg PO DAILY@1800 [facility] Last Admin: 02/22/18 17:29 Dose: 4 mg - Objective Vital Signs: Vital Signs Temperature 98.4 F 02/23/18 01:10 Pulse Rate 68 02/23/18 01:10 Respiratory Rate 20 02/23/18 01:10 Blood Pressure 101/49 02/23/18 01:10 O2 Sat by Pulse Oximetry (%) 100 02/22/18 21:00 Constitutional: Yes: Calm Eyes: Yes: WNL HENT: Yes: WNL Neck: Yes: WNL Cardiovascular: Yes: Murmur, S1, S2 Respiratory: Yes: Regular Gastrointestinal: Yes: Soft ...Rectal Exam: Yes: Deferred Genitourinary: No: Anuria Musculoskeletal: Yes: Muscle Weakness Extremities: Yes: Cool Edema: No Peripheral Pulses WNL: Yes Integumentary: Yes: WNL Neurological: Yes: Alert, Oriented, Weakness Psychiatric: Yes: Alert, Oriented Labs: CBC, BMP 02/22/18 05:30 02/22/18 05:30 INR, PTT INR 1.60 (0.83-1.09) H 02/22/18 05:30 Abnormal Lab Results 02/22/18 02/22/18 02/22/18 05:30 05:30 05:30 RBC 3.62 L Hgb 10.0 L Hct 32.5 L MCHC 30.8 L RDW 19.6 H Plt Count 109 L PT with INR 18.10 H INR 1.60 H Carbon Dioxide 33 H Anion Gap 6 L BUN 33 H Creatinine 2.8 H Random Glucose 222 H Calcium 7.9 L AST 51 H D ALT 295 H D Total Protein 5.5 L Albumin 2.7 L - ....Imaging Chest X-ray: Image Reviewed (some (small) improvement in CHF) Problem List - Problems (1) AV fistula Assessment/Plan: left AV fistula. Code(s): I77.0 - ARTERIOVENOUS FISTULA, ACQUIRED (2) Anxiety and depression Assessment/Plan: on Lexapro. Code(s): F41.8 - OTHER SPECIFIED ANXIETY DISORDERS (3) BPH (benign prostatic hypertrophy) Code(s): N40.0 - BENIGN PROSTATIC HYPERPLASIA WITHOUT LOWER URINRY TRACT SYMP (4) CVA (cerebral infarction) Assessment/Plan: Od laconar infarcts in right occipital, periventricular sites; infarct left cerebelloum on 11/14 CT. On ASA and clopidogrel for recent [place]-->several [place] stents, and wafarin (LV thrombu; PAF). High-dose statin to keep LDL as low as possible. Physical rehabilitation. Code(s): I63.9 - CEREBRAL INFARCTION, UNSPECIFIED Qualifiers: Cerebral infarction mechanism: unspecified mechanism Qualified Code(s): I63.9 - Cerebral infarction, unspecified (5) Fall Code(s): W19.XXXA - UNSPECIFIED FALL, INITIAL ENCOUNTER Qualifiers: Encounter type: initial encounter Qualified Code(s): W19.XXXA - Unspecified fall, initial encounter (6) Hx of heart artery stent Assessment/Plan: Hx [place]-->multiple stents. On ASA and clopidogrel (as well as warfarin for ventricular thrombus and atrial flutter); improved platelet quantity off clopidogrel --restart if no plan for early PPM. On carvedilol. Code(s): Z95.5 - PRESENCE OF CORONARY ANGIOPLASTY IMPLANT AND GRAFT (7) Hyperlipidemia Assessment/Plan: statin; keep LDL well below 70 mg/dL. Code(s): E78.5 - HYPERLIPIDEMIA, UNSPECIFIED Qualifiers: Hyperlipidemia type: pure hypercholesterolemia Qualified Code(s): E78.00 - Pure hypercholesterolemia, unspecified; E78.0 - Pure hypercholesterolemia (8) LV (left ventricular) mural thrombus Assessment/Plan: Once again on warfarin; IV heparin until INR 2-3 (1.6 today) Code(s): JND0129 - (9) Hypotension Assessment/Plan: See under "atrial flutter". Code(s): I95.9 - HYPOTENSION, UNSPECIFIED (10) Chronic diastolic (congestive) heart failure Assessment/Plan: ECHO this admission: preserved LVEF, with regional wall abnormalities (apical, inferior); borderline dilated LV; cannot exclude LV apical thrombus. On metoprolol (dose increased today); hydralazine held until low BP has improved. On warfarin. 3 lb weight loss after dialysis yesterday. Code(s): I50.32 - CHRONIC DIASTOLIC (CONGESTIVE) HEART FAILURE (11) Atrial flutter Assessment/Plan: Tolerated UF and hemodialysis yesterday well (did not develop atrial flutter). Now in NSR; periods of ventricular quadrigeminy. Will increase metoprolol tartrate to 25 mg alternating with 12.5 mg q6h. Code(s): I48.92 - UNSPECIFIED ATRIAL FLUTTER (12) Elevated LFTs Assessment/Plan: improving values since hemodilysis yesterday. Code(s): R94.5 - ABNORMAL RESULTS OF LIVER FUNCTION STUDIES
[2018-02-23] MEDS: INSULIN SLIDING SCALE (NOVOLOG) 1 VIAL SQ SCH ×4 (06:27→22:24)
[2018-02-23] MEDS: INSULIN (LEVEMIR) 100 UNITS/ML UNITS SQ SCH (06:29)
[2018-02-23 07:48] LABS: HEMATOCRIT 31.6 % (35.4-49); HEMOGLOBIN 9.8 GM/dL (11.7-16.9); MCH 27.7 pg (25.7-33.7); MEAN CELL VOLUME 89.4 fl (80-96); MEAN PLT VOLUME 10.2 fl (7.5-11.1); PLATELET COUNT 105 K/MM3 (134-434); RBC 3.54 M/mm3 (4.00-5.60); RDW 20.7 % (11.9-15.9)
[2018-02-23 08:10] LABS: ALBUMIN 2.6 g/dl (3.4-5.0); ANION GAP 12 MMOL/L (8-16); BLOOD UREA NITROGEN 54 mg/dL (7-18); CALCIUM 8.2 mg/dL (8.5-10.1); CHLORIDE 99 mmol/L (98-107); CO2 29 mmol/L (21-32); GLUCOSE,RANDOM 183 mg/dL (74-106); MAGNESIUM 2.5 mg/dL (1.8-2.4); POTASSIUM 4.8 mmol/L (3.5-5.1); SGOT/AST 27 U/L (15-37); SODIUM 140 mmol/L (136-145)
[2018-02-23 08:12] LABS: ALK PHOS 94 U/L (45-117); BILIRUBIN,TOTAL 0.7 mg/dL (0.2-1.0); CREATININE 3.5 mg/dL (0.7-1.3); PHOSPHOROUS 4.8 mg/dL (2.5-4.9); SGPT/ALT 210 U/L (12-78); TOT PROT 5.4 g/dl (6.4-8.2)
[2018-02-23 08:37] LABS: INR 2.03 (0.83-1.09); PROTHROMBIN TIME (PATIENT) 22.9 SEC (9.7-13.0)
[2018-02-23] MEDS: LACTOBACILLUS ACIDOPHILUS 1 TABLET PO SCH (09:16)
[2018-02-23] MEDS: ASPIRIN COATED 81 MG TABLET.EC PO SCH (09:16)
[2018-02-23] MEDS: PANTOPRAZOLE SOD 40 MG SUSPENSION PACKET PO SCH (09:16)
[2018-02-23] MEDS: POLYETHYLENE GLYCOL 3350 119 GM BTL PO SCH (09:17)
[2018-02-23] MEDS: MIDODRINE HCL 5 MG TABLET PO SCH ×3 (09:18→18:32)
--- NOTE | 2018-02-23 10:28 | PN ---
Progress Note, Physician History of Present Illness: PULMONARY ALERT,OOB-CHAIR,COMFORTABLE,-RESP DISTRESS,LESS COUGH - Current Medication List Current Medications: Active Medications Albuterol/Ipratropium (Duoneb -) 1 amp NEB Q6H PRN PRN Reason: SHORTNESS OF BREATH Last Admin: 02/22/18 16:32 Dose: 1 amp Aspirin (Ecotrin -) 81 mg PO DAILY [facility] Last Admin: 02/23/18 09:16 Dose: 81 mg Escitalopram Oxalate (Lexapro -) 5 mg PO [facility] Last Admin: 02/22/18 21:39 Dose: 5 mg Guaifenesin (Diabetic Tussin Dm -) 10 ml PO Q6H PRN PRN Reason: COUGH Last Admin: 02/22/18 10:27 Dose: 10 ml Insulin Aspart (Novolog Vial Sliding Scale -) 1 vial SQ HS [facility]; Protocol Last Admin: 02/22/18 21:41 Dose: Not Given Insulin Aspart (Novolog Vial Sliding Scale -) 1 vial SQ TIDAC [facility]; Protocol Last Admin: 02/23/18 06:27 Dose: Not Given Insulin Detemir (Levemir Vial) 24 units SQ ACBK [facility] Last Admin: 02/23/18 06:29 Dose: 24 units Lactobacillus Acidophilus (Bacid -) 1 tab PO DAILY [facility] Last Admin: 02/23/18 09:16 Dose: 1 tab Metoprolol Tartrate (Lopressor -) 12.5 mg PO Q12H [facility] Last Admin: 02/23/18 00:40 Dose: 12.5 mg Metoprolol Tartrate (Lopressor -) 25 mg PO Q12H [facility] Last Admin: 02/23/18 06:28 Dose: 25 mg Midodrine (Proamatine -) 5 mg PO TID-MID [facility] Last Admin: 02/23/18 09:18 Dose: 5 mg Pantoprazole Sodium (Protonix Packets For Oral Suspension -) 40 mg PO DAILY [facility] Last Admin: 02/23/18 09:16 Dose: 40 mg Polyethylene Glycol (Miralax (For Daily Use) -) 17 gm PO DAILY [facility] Last Admin: 02/23/18 09:17 Dose: 17 grams Rosuvastatin Calcium (Crestor -) 10 mg PO HS [facility] Last Admin: 02/22/18 21:40 Dose: 10 mg Tamsulosin HCl (Flomax -) 0.4 mg PO HS [facility] Last Admin: 02/22/18 21:41 Dose: 0.4 mg Warfarin Sodium (Coumadin -) 4 mg PO DAILY@1800 [facility] Last Admin: 02/22/18 17:29 Dose: 4 mg - Objective Vital Signs: Vital Signs Temperature 97.8 F 02/23/18 05:00 Pulse Rate 60 02/23/18 05:00 Respiratory Rate 19 02/23/18 05:00 Blood Pressure 100/55 02/23/18 05:00 O2 Sat by Pulse Oximetry (%) 100 02/22/18 21:00 Constitutional: Yes: Well Nourished, Calm Eyes: Yes: WNL HENT: Yes: WNL Neck: Yes: WNL Cardiovascular: Yes: Regular Rate and Rhythm, S1, S2 Respiratory: Yes: Diminished Gastrointestinal: Yes: Normal Bowel Sounds, Soft Extremities: Yes: WNL Edema: No Labs: CBC, BMP 02/23/18 06:00 02/23/18 06:00 INR, PTT INR 2.03 (0.83-1.09) H 02/23/18 06:00 - ....Imaging X-ray: Report Reviewed, Image Reviewed (LESS CONGESTION BILATERALLY) Problem List - Problems (1) CAD (coronary artery disease) Code(s): I25.10 - ATHSCL HEART DISEASE OF [place] CORONARY ARTERY W/O ANG PCTRS (2) Chronic diastolic (congestive) heart failure Code(s): I50.32 - CHRONIC DIASTOLIC (CONGESTIVE) HEART FAILURE (3) ESRD (end stage renal disease) on dialysis Code(s): N18.6 - END STAGE RENAL DISEASE; Z99.2 - DEPENDENCE ON RENAL DIALYSIS (4) Hypothyroid Code(s): E03.9 - HYPOTHYROIDISM, UNSPECIFIED (5) Acute on chronic systolic CHF (congestive heart failure) Code(s): I50.23 - ACUTE ON CHRONIC SYSTOLIC (CONGESTIVE) HEART FAILURE (6) Anemia Code(s): D64.9 - ANEMIA, UNSPECIFIED (7) CVA (cerebral infarction) Code(s): I63.9 - CEREBRAL INFARCTION, UNSPECIFIED Qualifiers: Cerebral infarction mechanism: unspecified mechanism Qualified Code(s): I63.9 - Cerebral infarction, unspecified (8) ESRD (end stage renal disease) on dialysis Code(s): N18.6 - END STAGE RENAL DISEASE; Z99.2 - DEPENDENCE ON RENAL DIALYSIS (9) Hx of heart artery stent Code(s): Z95.5 - PRESENCE OF CORONARY ANGIOPLASTY IMPLANT AND GRAFT (10) LV (left ventricular) mural thrombus Code(s): [id number] - (11) Syncope Code(s): R55 - SYNCOPE AND COLLAPSE Assessment/Plan ASSESSMENT AND PLAN: Syncope Sinus Pause Paroxysmal Atrial Fibrillation with RVR now in sinus rhythm CAD LV Diastolic Dysfunction HTN Hyperlipidemia DM LV thrombus h/o CVA ESRD on HD - rate control with metoprolol - anticoagulation with target INR 2-3 - HD per renal with UF as tolerated - cough suppressants - glucose control - Empiric antibiotics per ID - O2 to keep Spo2 >90% DR CARCAMO
[2018-02-23] MEDS ORDERED: INSULIN (NOVOLOG) ASPART 100 UNITS/ML 10ML VIAL ONE (11:19)
--- NOTE | 2018-02-23 14:16 | PN ---
Progress Note (short form) - Note Progress Note: Feels good No complaints Has dry cough No hypos Apetite good Vital Signs Period Temp Pulse Resp BP Sys/Simons Pulse Ox Last 24 Hr 97.8 F-98.4 F 60-72 18-21 100-114/49-60 100 PE: awake, alert Neck: Supple HEENT: EOMI Lungs:CTA CVS: S1S2 Abd: Benign Ext: No edema CMP Sodium 140 mmol/L (136-145) 02/23/18 06:00 Potassium 4.8 mmol/L (3.5-5.1) 02/23/18 06:00 Chloride 99 mmol/L (98-107) 02/23/18 06:00 Carbon Dioxide 29 mmol/L (21-32) 02/23/18 06:00 Anion Gap 12 MMOL/L (8-16) 02/23/18 06:00 BUN 54 mg/dL (7-18) H 02/23/18 06:00 Creatinine 3.5 mg/dL (0.7-1.3) H 02/23/18 06:00 Creat Clearance w eGFR 17.02 (>60) 02/23/18 06:00 POC Glucometer 236 UNITS (80-120) 02/23/18 11:29 Random Glucose 183 mg/dL (74-106) H 02/23/18 06:00 Lactic Acid 1.5 mmol/L (0.0-2.0) 02/13/18 05:30 Calcium 8.2 mg/dL (8.5-10.1) L 02/23/18 06:00 Phosphorus 4.8 mg/dL (2.5-4.9) D 02/23/18 06:00 Magnesium 2.5 mg/dL (1.8-2.4) H 02/23/18 06:00 Total Bilirubin 0.7 mg/dL (0.2-1.0) 02/23/18 06:00 AST 27 U/L (15-37) D 02/23/18 06:00 ALT 210 U/L (12-78) H D 02/23/18 06:00 Alkaline Phosphatase 94 U/L (45-117) 02/23/18 06:00 Ammonia 22.7 umol/L (11-32) 02/20/18 05:30 Creatine Kinase 38 IU/L (39-308) L 02/17/18 05:30 Troponin I 0.06 ng/ml (0.00-0.05) H D 02/17/18 05:30 B-Natriuretic Peptide 81824.90 pg/ml (5-450) H 02/21/18 20:05 Total Protein 5.4 g/dl (6.4-8.2) L 02/23/18 06:00 Albumin 2.6 g/dl (3.4-5.0) L 02/23/18 06:00 Total Amylase 67 U/L (25-115) 02/12/18 23:40 Lipase 236 U/L (73-393) 02/12/18 23:40 TSH 6.01 uIU/ml (0.358-3.74) H D 02/17/18 05:30 Free T4 0.84 ng/dl (0.76-1.16) 02/21/18 20:05 Current Medications Generic Name Dose Route Start Last Admin Trade Name Freq PRN Reason Stop Dose Admin Albuterol/Ipratropium 1 amp 02/14/18 12:11 02/22/18 16:32 Duoneb - NEB 1 amp Q6H PRN Administration SHORTNESS OF BREATH Aspirin 81 mg 02/15/18 10:00 02/23/18 09:16 Ecotrin - PO 81 mg DAILY [facility] Administration Escitalopram Oxalate 5 mg 02/13/18 22:00 02/22/18 21:39 Lexapro - PO 5 mg HS [facility] Administration Guaifenesin 10 ml 02/17/18 13:13 02/22/18 10:27 Diabetic Tussin Dm - PO 10 ml Q6H PRN Administration COUGH Insulin Aspart 1 vial 02/18/18 22:00 02/22/18 21:41 Novolog Vial Sliding Scale - SQ Not Given HS [facility] Protocol Insulin Aspart 1 vial 02/20/18 11:12 02/23/18 11:33 Novolog Vial Sliding Scale - SQ 8 units TIDAC [facility] Administration Protocol Insulin Detemir 24 units 02/22/18 07:00 02/23/18 06:29 Levemir Vial SQ 24 units ACBK [facility] Administration Lactobacillus Acidophilus 1 tab 02/19/18 10:00 02/23/18 09:16 Bacid - PO 1 tab DAILY [facility] Administration Metoprolol Tartrate 12.5 mg 02/22/18 12:00 02/23/18 12:57 Lopressor - PO 12.5 mg Q12H [facility] Administration Metoprolol Tartrate 25 mg 02/22/18 18:00 02/23/18 06:28 Lopressor - PO 25 mg Q12H [facility] Administration Midodrine 5 mg 02/20/18 12:30 02/23/18 09:18 Proamatine - PO 5 mg TID-MID [facility] Administration Pantoprazole Sodium 40 mg 02/22/18 16:30 02/23/18 09:16 Protonix Packets For Oral Suspension - PO 40 mg DAILY [facility] Administration Polyethylene Glycol 17 gm 02/17/18 20:15 02/23/18 09:17 Miralax (For Daily Use) - PO 17 grams DAILY [facility] Administration Rosuvastatin Calcium 10 mg 02/21/18 22:00 02/22/18 21:40 Crestor - PO 10 mg HS [facility] Administration Tamsulosin HCl 0.4 mg 02/13/18 22:00 02/22/18 21:41 Flomax - PO 0.4 mg HS [facility] Administration Warfarin Sodium 4 mg 02/18/18 18:00 02/22/18 17:29 Coumadin - PO 4 mg DAILY@1800 [facility] Administration AP: T2DM with hyperlgycemia ESRD S/P Asystole of 4 sec CAD H/O CVA Possible Aspiration Pneumonia Blood sugar goal around 200 to avoid hypoglycemia as pt has frequent hypoglycemia at home especially at night. Option Insulin drip discussed with family who want to continue with current basal/bolus regimen for now. BGM QACHS and 3 AM Increase Levemir 28 units. Novolog ss coverage Rpt TSH as outpt. Will f/u Problem List - Problems (1) Chronic diastolic (congestive) heart failure Code(s): I50.32 - CHRONIC DIASTOLIC (CONGESTIVE) HEART FAILURE (2) Hip hematoma, left Code(s): S70.02XA - CONTUSION OF LEFT HIP, INITIAL ENCOUNTER Qualifiers: Encounter type: subsequent encounter Qualified Code(s): S70.02XD - Contusion of left hip, subsequent encounter (3) Hypotension Code(s): I95.9 - HYPOTENSION, UNSPECIFIED (4) ESRD (end stage renal disease) on dialysis Code(s): N18.6 - END STAGE RENAL DISEASE; Z99.2 - DEPENDENCE ON RENAL DIALYSIS
--- NOTE | 2018-02-23 14:49 | PN ---
Progress Note (short form) - Note Progress Note: Renal follow up for ESRD on HD Pt seen and examined in the ICU awake and alert tolerated dialysis well over the weekend has cough but is improved no cp, mild JOYNER last dialysis was Friday Vital Signs Temperature 98 F 02/23/18 09:00 Pulse Rate 68 02/23/18 09:00 Respiratory Rate 18 02/23/18 09:00 Blood Pressure 114/60 02/23/18 09:00 O2 Sat by Pulse Oximetry (%) 100 02/22/18 21:00 Intake & Output 02/20/18 02/21/18 02/22/18 02/23/18 23:59 23:59 23:59 23:59 Intake Total 600 410 480 650 Output Total 0 0 Balance 600 410 480 650 Weight 69.4 kg 65.969 kg NAD awake and alert RRR, No M/R Dec BS at the lung bases soft NT/ND Left hip hematoma Trace edema CBC, BMP 02/23/18 06:00 02/23/18 06:00 Current Medications Albuterol/Ipratropium (Duoneb -) 1 amp NEB Q6H PRN PRN Reason: SHORTNESS OF BREATH Last Admin: 02/22/18 16:32 Dose: 1 amp Aspirin (Ecotrin -) 81 mg PO DAILY [facility] Last Admin: 02/23/18 09:16 Dose: 81 mg Escitalopram Oxalate (Lexapro -) 5 mg PO HS [facility] Last Admin: 02/22/18 21:39 Dose: 5 mg Guaifenesin (Diabetic Tussin Dm -) 10 ml PO Q6H PRN PRN Reason: COUGH Last Admin: 02/22/18 10:27 Dose: 10 ml Insulin Aspart (Novolog Vial Sliding Scale -) 1 vial SQ HS [facility]; Protocol Last Admin: 02/22/18 21:41 Dose: Not Given Insulin Aspart (Novolog Vial Sliding Scale -) 1 vial SQ TIDAC [facility]; Protocol Last Admin: 02/23/18 11:33 Dose: 8 units Insulin Detemir (Levemir Vial) 28 units SQ ACBK [facility] Lactobacillus Acidophilus (Bacid -) 1 tab PO DAILY [facility] Last Admin: 02/23/18 09:16 Dose: 1 tab Metoprolol Tartrate (Lopressor -) 12.5 mg PO Q12H [facility] Last Admin: 08/27/18 12:57 Dose: 12.5 mg Metoprolol Tartrate (Lopressor -) 25 mg PO Q12H [facility] Last Admin: 02/23/18 06:28 Dose: 25 mg Midodrine (Proamatine -) 5 mg PO TID-MID [facility] Last Admin: 02/23/18 09:18 Dose: 5 mg Pantoprazole Sodium (Protonix Packets For Oral Suspension -) 40 mg PO DAILY [facility] Last Admin: 02/23/18 09:16 Dose: 40 mg Polyethylene Glycol (Miralax (For Daily Use) -) 17 gm PO DAILY [facility] Last Admin: 02/23/18 09:17 Dose: 17 grams Rosuvastatin Calcium (Crestor -) 10 mg PO HS [facility] Last Admin: 02/22/18 21:40 Dose: 10 mg Tamsulosin HCl (Flomax -) 0.4 mg PO [facility] Last Admin: 02/22/18 21:41 Dose: 0.4 mg Warfarin Sodium (Coumadin -) 4 mg PO DAILY@1800 [facility] Last Admin: 02/22/18 17:29 Dose: 4 mg 77 year old Romanian gentleman with Hx of ESRD on HD (started this year), CAD s/p PCI, Hypertension, Hyperlipidemia, CHF, Left Ventricular Thrombus on Coumadin who presented from home with weakness and hypotension. #Weakness/Hypotension #CHF/Volume overload #ESRD on HD with Hyperkalemia #Ventricular Thrombus #Anemia #Hip Hematoma w/o fracture #New Aflutter with RVR for dialysis as inpatient tomorrow with UF as tolerated no acute indication for CVVHD Cardiology follow up continue midodrine on Metoprolol for arrhythmia prevention Florencio Del Cid DO
[2018-02-23] MEDS ORDERED: SODIUM CHLORIDE 250 ML IV PRN (14:51)
[2018-02-23] MEDS: WARFARIN NA 2 MG TABLET (UD) PO SCH (18:31)
[2018-02-23] MEDS: TAMSULOSIN HCL 0.4 MG CAP.ER.24H (FP) PO SCH (22:24)
[2018-02-23] MEDS: ROSUVASTATIN CA 10 MG TABLET (FP) PO SCH (22:24)
[2018-02-23] MEDS: ESCITALOPRAM OXALATE 10 MG TABLET (FP) PO SCH (22:24)
[2018-02-24] MEDS: METOPROLOL TARTRATE 25 MG TABLET (FP) PO SCH ×5 (00:23→21:38)
[2018-02-24] MEDS: INSULIN SLIDING SCALE (NOVOLOG) 1 VIAL SQ SCH ×4 (06:57→21:39)
[2018-02-24] MEDS: INSULIN (LEVEMIR) 100 UNITS/ML UNITS SQ SCH (07:10)
[2018-02-24] MEDS ORDERED: PT OWN MED DRAWER 7, Y5N ONE ×2 (10:49→17:39)
--- NOTE | 2018-02-24 10:52 | PN ---
Progress Note, Physician History of Present Illness: PULMONARY ALERT,FEELING BETTERNAD,-CP,DYSPNEA IMPROVING - Current Medication List Current Medications: Active Medications Albumin Human (Albumin Human 25%) 12.5 gm IVPB Q30M [facility] Albuterol/Ipratropium (Duoneb -) 1 amp NEB Q6H PRN PRN Reason: SHORTNESS OF BREATH Last Admin: 02/22/18 16:32 Dose: 1 amp Aspirin (Ecotrin -) 81 mg PO DAILY [facility] Last Admin: 02/23/18 09:16 Dose: 81 mg Epoetin Fahad (Epogen -) 10,000 unit IVPUSH ONCE ONE Stop: 02/24/18 06:01 Escitalopram Oxalate (Lexapro -) 5 mg PO HS [facility] Last Admin: 02/23/18 22:24 Dose: 5 mg Guaifenesin (Diabetic Tussin Dm -) 10 ml PO Q6H PRN PRN Reason: COUGH Last Admin: 02/22/18 10:27 Dose: 10 ml Sodium Chloride (Normal Saline -) 250 mls @ 3,000 mls/hr IV PRN PRN PRN Reason: Hypotension during Dialysis Stop: 02/24/18 14:51 Insulin Aspart (Novolog Vial Sliding Scale -) 1 vial SQ HS [facility]; Protocol Last Admin: 02/23/18 22:24 Dose: Not Given Insulin Aspart (Novolog Vial Sliding Scale -) 1 vial SQ TIDAC [facility]; Protocol Last Admin: 02/24/18 06:57 Dose: Not Given Insulin Detemir (Levemir Vial) 28 units SQ ACBK [facility] Last Admin: 02/24/18 07:10 Dose: 28 units Lactobacillus Acidophilus (Bacid -) 1 tab PO DAILY [facility] Last Admin: 02/23/18 09:16 Dose: 1 tab Metoprolol Tartrate (Lopressor -) 12.5 mg PO Q12H [facility] Last Admin: 02/24/18 00:23 Dose: Not Given Metoprolol Tartrate (Lopressor -) 25 mg PO Q12H [facility] Last Admin: 02/24/18 06:57 Dose: Not Given Midodrine (Proamatine -) 5 mg PO TID-MID [facility] Last Admin: 02/23/18 18:32 Dose: 5 mg Pantoprazole Sodium (Protonix Packets For Oral Suspension -) 40 mg PO DAILY [facility] Last Admin: 02/23/18 09:16 Dose: 40 mg Polyethylene Glycol (Miralax (For Daily Use) -) 17 gm PO DAILY [facility] Last Admin: 02/23/18 09:17 Dose: 17 grams Rosuvastatin Calcium (Crestor -) 10 mg PO [facility] Last Admin: 02/23/18 22:24 Dose: 10 mg Tamsulosin HCl (Flomax -) 0.4 mg PO [facility] Last Admin: 02/23/18 22:24 Dose: 0.4 mg Warfarin Sodium (Coumadin -) 4 mg PO DAILY@1800 [facility] Last Admin: 02/23/18 18:31 Dose: 4 mg - Objective Vital Signs: Vital Signs Temperature 98.1 F 02/24/18 02:00 Pulse Rate 59 L 02/24/18 06:00 Respiratory Rate 18 02/24/18 06:00 Blood Pressure 110/61 02/24/18 06:00 O2 Sat by Pulse Oximetry (%) 100 02/22/18 21:00 Constitutional: Yes: Well Nourished, Calm Eyes: Yes: WNL HENT: Yes: WNL Neck: Yes: WNL Cardiovascular: Yes: Regular Rate and Rhythm, S1, S2 Respiratory: Yes: Rales (FEW BIBASAILAR CRACKLES) Gastrointestinal: Yes: Normal Bowel Sounds, Soft Extremities: Yes: WNL Edema: No Labs: Problem List - Problems (1) CAD (coronary artery disease) Code(s): I25.10 - ATHSCL HEART DISEASE OF [place] CORONARY ARTERY W/O ANG PCTRS (2) Chronic diastolic (congestive) heart failure Code(s): I50.32 - CHRONIC DIASTOLIC (CONGESTIVE) HEART FAILURE (3) ESRD (end stage renal disease) on dialysis Code(s): N18.6 - END STAGE RENAL DISEASE; Z99.2 - DEPENDENCE ON RENAL DIALYSIS (4) Hypothyroid Code(s): E03.9 - HYPOTHYROIDISM, UNSPECIFIED (5) Acute on chronic systolic CHF (congestive heart failure) Code(s): I50.23 - ACUTE ON CHRONIC SYSTOLIC (CONGESTIVE) HEART FAILURE (6) Anemia Code(s): D64.9 - ANEMIA, UNSPECIFIED (7) CVA (cerebral infarction) Code(s): I63.9 - CEREBRAL INFARCTION, UNSPECIFIED Qualifiers: Cerebral infarction mechanism: unspecified mechanism Qualified Code(s): I63.9 - Cerebral infarction, unspecified (8) ESRD (end stage renal disease) on dialysis Code(s): N18.6 - END STAGE RENAL DISEASE; Z99.2 - DEPENDENCE ON RENAL DIALYSIS (9) Hx of heart artery stent Code(s): Z95.5 - PRESENCE OF CORONARY ANGIOPLASTY IMPLANT AND GRAFT (10) LV (left ventricular) mural thrombus Code(s): [id number] - (11) Syncope Code(s): R55 - SYNCOPE AND COLLAPSE Assessment/Plan ASSESSMENT AND PLAN: Syncope Sinus Pause Paroxysmal Atrial Fibrillation with RVR now in sinus rhythm CAD LV Diastolic Dysfunction HTN Hyperlipidemia DM LV thrombus h/o CVA ESRD on HD - rate control with metoprolol - anticoagulation with target INR 2-3 - HD per renal with UF as tolerated - cough suppressants - glucose control - O2 to keep Spo2 >90% DR CARCAMO
[2018-02-24] MEDS: MIDODRINE HCL 5 MG TABLET PO SCH ×3 (10:54→18:14)
--- NOTE | 2018-02-24 12:43 | PN ---
Progress Note, Physician Chief Complaint: Pt alert; asymptomatic.Pt's and son are at bedside. History of Present Illness: Patient is a 77 year old male (bMeredith Kingsley), with PMHx of CVA, CAD ([place]--> 5 coronary stents at [facility] 08/17, with subsequent renal failure and ventricular thrombus; currently on ASA, clopidogrel, and warfarin), ESRD ( hemodialysis since 11/2017), diastolic CHF, HTN, HLD, s/p GI Bleed, Anxiety, Diabetes Mellitus, who presents with generalized weakness and low blood pressure. The patients (Dr. Davila) states that this afternoon he vomited and noted that his blood pressure was relatively low and he was feeling weak. She brought him to [facility] ER where he has history. He receives dialysis every Friday, , and Friday, but did not go today. Earlier in the day, prior to planned hemodialysis, he underwent renal angioplasty by the vascular surgeon (Dr. Huff) and was NPO. Surgical Hx: December 05 2017 - Renal angioplasty. 02/12/18 : Left AVFistula with stenosis. [place] (Jul, 2017) with multiple stent placements simultaenously. PCP: Coleman Hess - Current Medication List Current Medications: Active Medications Albumin Human (Albumin Human 25%) 12.5 gm IVPB Q30M [facility] Albuterol/Ipratropium (Duoneb -) 1 amp NEB Q6H PRN PRN Reason: SHORTNESS OF BREATH Last Admin: 02/22/18 16:32 Dose: 1 amp Aspirin (Ecotrin -) 81 mg PO DAILY [facility] Last Admin: 02/23/18 09:16 Dose: 81 mg Epoetin Fahad (Epogen -) 10,000 unit IVPUSH ONCE ONE Stop: 02/24/18 06:01 Escitalopram Oxalate (Lexapro -) 5 mg PO HS [facility] Last Admin: 02/23/18 22:24 Dose: 5 mg Guaifenesin (Diabetic Tussin Dm -) 10 ml PO Q6H PRN PRN Reason: COUGH Last Admin: 02/22/18 10:27 Dose: 10 ml Sodium Chloride (Normal Saline -) 250 mls @ 3,000 mls/hr IV PRN PRN PRN Reason: Hypotension during Dialysis Stop: 02/24/18 14:51 Insulin Aspart (Novolog Vial Sliding Scale -) 1 vial SQ HS [facility]; Protocol Last Admin: 02/23/18 22:24 Dose: Not Given Insulin Aspart (Novolog Vial Sliding Scale -) 1 vial SQ TIDAC [facility]; Protocol Last Admin: 02/24/18 12:39 Dose: 8 units Insulin Detemir (Levemir Vial) 28 units SQ ACBK [facility] Last Admin: 02/24/18 07:10 Dose: 28 units Lactobacillus Acidophilus (Bacid -) 1 tab PO DAILY [facility] Last Admin: 02/23/18 09:16 Dose: 1 tab Metoprolol Tartrate (Lopressor -) 12.5 mg PO Q12H [facility] Last Admin: 02/24/18 00:23 Dose: Not Given Metoprolol Tartrate (Lopressor -) 25 mg PO Q12H [facility] Last Admin: 02/24/18 06:57 Dose: Not Given Midodrine (Proamatine -) 5 mg PO TID-MID [facility] Last Admin: 02/24/18 10:54 Dose: 5 mg Pantoprazole Sodium (Protonix Packets For Oral Suspension -) 40 mg PO DAILY [facility] Last Admin: 02/23/18 09:16 Dose: 40 mg Polyethylene Glycol (Miralax (For Daily Use) -) 17 gm PO DAILY [facility] Last Admin: 02/23/18 09:17 Dose: 17 grams Rosuvastatin Calcium (Crestor -) 10 mg PO [facility] Last Admin: 02/23/18 22:24 Dose: 10 mg Tamsulosin HCl (Flomax -) 0.4 mg PO [facility] Last Admin: 02/23/18 22:24 Dose: 0.4 mg Warfarin Sodium (Coumadin -) 4 mg PO DAILY@1800 [facility] Last Admin: 02/23/18 18:31 Dose: 4 mg - Objective Vital Signs: Vital Signs Temperature 98.1 F 02/24/18 02:00 Pulse Rate 59 L 02/24/18 06:00 Respiratory Rate 18 02/24/18 06:00 Blood Pressure 110/61 02/24/18 06:00 O2 Sat by Pulse Oximetry (%) 100 02/22/18 21:00 Constitutional: Yes: No Distress Eyes: Yes: WNL HENT: Yes: WNL Neck: Yes: WNL Cardiovascular: Yes: Regular Rate and Rhythm Respiratory: Yes: Diminished Gastrointestinal: Yes: Soft ...Rectal Exam: Yes: Deferred Genitourinary: No: Anuria Musculoskeletal: Yes: Muscle Weakness Extremities: Yes: Cool Edema: No Peripheral Pulses WNL: Yes Integumentary: Yes: Other Wound/Incision: Yes: Open to air Neurological: Yes: Alert, Oriented, Weakness Psychiatric: Yes: Alert Labs: CBC, BMP 02/23/18 06:00 02/23/18 06:00 INR, PTT INR 2.03 (0.83-1.09) H 02/23/18 06:00 Problem List - Problems (1) AV fistula Assessment/Plan: left AV fistula. Still using right Permacath for hemodialysis. Code(s): I77.0 - ARTERIOVENOUS FISTULA, ACQUIRED (2) Anxiety and depression Assessment/Plan: on Lexapro. Code(s): F41.8 - OTHER SPECIFIED ANXIETY DISORDERS (3) BPH (benign prostatic hypertrophy) Code(s): N40.0 - BENIGN PROSTATIC HYPERPLASIA WITHOUT LOWER URINRY TRACT SYMP (4) CVA (cerebral infarction) Assessment/Plan: Od laconar infarcts in right occipital, periventricular sites; infarct left cerebelloum on 11/14 CT. On ASA and clopidogrel for recent [place]-->several [place] stents, and wafarin (LV thrombu; PAF). High-dose statin to keep LDL as low as possible. Physical rehabilitation. Code(s): I63.9 - CEREBRAL INFARCTION, UNSPECIFIED Qualifiers: Cerebral infarction mechanism: unspecified mechanism Qualified Code(s): I63.9 - Cerebral infarction, unspecified (5) Fall Code(s): W19.XXXA - UNSPECIFIED FALL, INITIAL ENCOUNTER Qualifiers: Encounter type: initial encounter Qualified Code(s): W19.XXXA - Unspecified fall, initial encounter (6) Hx of heart artery stent Assessment/Plan: Hx [place]-->multiple stents. On ASA and clopidogrel (as well as warfarin for ventricular thrombus and atrial flutter); improved platelet quantity off clopidogrel --restart if no plan for early PPM. On carvedilol. Code(s): Z95.5 - PRESENCE OF CORONARY ANGIOPLASTY IMPLANT AND GRAFT (7) Hyperlipidemia Code(s): E78.5 - HYPERLIPIDEMIA, UNSPECIFIED Qualifiers: Hyperlipidemia type: pure hypercholesterolemia Qualified Code(s): E78.00 - Pure hypercholesterolemia, unspecified; E78.0 - Pure hypercholesterolemia (8) LV (left ventricular) mural thrombus Code(s): [id number] - (9) Hypotension Code(s): I95.9 - HYPOTENSION, UNSPECIFIED (10) Chronic diastolic (congestive) heart failure Code(s): I50.32 - CHRONIC DIASTOLIC (CONGESTIVE) HEART FAILURE (11) Atrial flutter Assessment/Plan: Tolerated UF and hemodialysis yesterday well (did not develop atrial flutter). Now in NSR; periods of ventricular quadrigeminy. Increased metoprolol tartrate to 25 mg alternating with 12.5 mg q6h. For hemodialysis in am. Code(s): I48.92 - UNSPECIFIED ATRIAL FLUTTER (12) Elevated LFTs Assessment/Plan: improving values since hemodilysis yesterday. Code(s): R94.5 - ABNORMAL RESULTS OF LIVER FUNCTION STUDIES (13) Hip hematoma, left Code(s): S70.02XA - CONTUSION OF LEFT HIP, INITIAL ENCOUNTER Qualifiers: Encounter type: subsequent encounter Qualified Code(s): S70.02XD - Contusion of left hip, subsequent encounter
--- NOTE | 2018-02-24 12:48 | PN ---
Progress Note (short form) - Note Progress Note: Feels good No new complaints Has dry cough and Hiccups No hypos Apetite good Vital Signs Period Temp Pulse Resp BP Sys/Simons Pulse Ox Last 24 Hr 97.6 F-98.2 F 59-71 18-20 110-141/48-61 PE: awake, alert Neck: Supple HEENT: EOMI Lungs:CTA CVS: S1S2 Abd: Benign Ext: No edema CMP Sodium 140 mmol/L (136-145) 02/23/18 06:00 Potassium 4.8 mmol/L (3.5-5.1) 02/23/18 06:00 Chloride 99 mmol/L (98-107) 02/23/18 06:00 Carbon Dioxide 29 mmol/L (21-32) 02/23/18 06:00 Anion Gap 12 MMOL/L (8-16) 02/23/18 06:00 BUN 54 mg/dL (7-18) H 02/23/18 06:00 Creatinine 3.5 mg/dL (0.7-1.3) H 02/23/18 06:00 Creat Clearance w eGFR 17.02 (>60) 02/23/18 06:00 POC Glucometer 150 UNITS (80-120) 02/24/18 05:45 Random Glucose 183 mg/dL (74-106) H 02/23/18 06:00 Lactic Acid 1.5 mmol/L (0.0-2.0) 02/13/18 05:30 Calcium 8.2 mg/dL (8.5-10.1) L 02/23/18 06:00 Phosphorus 4.8 mg/dL (2.5-4.9) D 02/23/18 06:00 Magnesium 2.5 mg/dL (1.8-2.4) H 02/23/18 06:00 Total Bilirubin 0.7 mg/dL (0.2-1.0) 02/23/18 06:00 AST 27 U/L (15-37) D 02/23/18 06:00 ALT 210 U/L (12-78) H D 02/23/18 06:00 Alkaline Phosphatase 94 U/L (45-117) 02/23/18 06:00 Ammonia 22.7 umol/L (11-32) 02/20/18 05:30 Creatine Kinase 38 IU/L (39-308) L 02/17/18 05:30 Troponin I 0.06 ng/ml (0.00-0.05) H D 02/17/18 05:30 B-Natriuretic Peptide 45054.90 pg/ml (5-450) H 02/21/18 20:05 Total Protein 5.4 g/dl (6.4-8.2) L 02/23/18 06:00 Albumin 2.6 g/dl (3.4-5.0) L 02/23/18 06:00 Total Amylase 67 U/L (25-115) 02/12/18 23:40 Lipase 236 U/L (73-393) 02/12/18 23:40 TSH 6.01 uIU/ml (0.358-3.74) H D 02/17/18 05:30 Free T4 0.84 ng/dl (0.76-1.16) 02/21/18 20:05 Current Medications Generic Name Dose Route Start Last Admin Trade Name Freq PRN Reason Stop Dose Admin Albumin Human 12.5 gm 02/24/18 06:00 Albumin Human 25% IVPB Q30M [facility] Albuterol/Ipratropium 1 amp 02/14/18 12:11 02/22/18 16:32 Duoneb - NEB 1 amp Q6H PRN Administration SHORTNESS OF BREATH Aspirin 81 mg 02/15/18 10:00 02/23/18 09:16 Ecotrin - PO 81 mg DAILY [facility] Administration Epoetin Fahad 10,000 unit 02/24/18 06:00 Epogen - IVPUSH 02/24/18 06:01 ONCE ONE Escitalopram Oxalate 5 mg 02/13/18 22:00 02/23/18 22:24 Lexapro - PO 5 mg HS [facility] Administration Guaifenesin 10 ml 02/17/18 13:13 02/22/18 10:27 Diabetic Tussin Dm - PO 10 ml Q6H PRN Administration COUGH Sodium Chloride 250 mls @ 3,000 mls/hr 02/23/18 14:51 Normal Saline - IV 02/24/18 14:51 PRN PRN Hypotension during Dialysis Insulin Aspart 1 vial 02/18/18 22:00 02/23/18 22:24 Novolog Vial Sliding Scale - SQ Not Given HS [facility] Protocol Insulin Aspart 1 vial 02/20/18 11:12 02/24/18 12:39 Novolog Vial Sliding Scale - SQ 8 units TIDAC [facility] Administration Protocol Insulin Detemir 28 units 02/24/18 07:00 02/24/18 07:10 Levemir Vial SQ 28 units ACBK [facility] Administration Lactobacillus Acidophilus 1 tab 02/19/18 10:00 02/23/18 09:16 Bacid - PO 1 tab DAILY [facility] Administration Metoprolol Tartrate 12.5 mg 02/22/18 12:00 02/24/18 00:23 Lopressor - PO Not Given Q12H [facility] Metoprolol Tartrate 25 mg 02/22/18 18:00 02/24/18 06:57 Lopressor - PO Not Given Q12H [facility] Midodrine 5 mg 02/20/18 12:30 02/24/18 10:54 Proamatine - PO 5 mg TID-MID [facility] Administration Pantoprazole Sodium 40 mg 02/22/18 16:30 02/23/18 09:16 Protonix Packets For Oral Suspension - PO 40 mg DAILY [facility] Administration Polyethylene Glycol 17 gm 02/17/18 20:15 02/23/18 09:17 Miralax (For Daily Use) - PO 17 grams DAILY [facility] Administration Rosuvastatin Calcium 10 mg 02/21/18 22:00 02/23/18 22:24 Crestor - PO 10 mg HS [facility] Administration Tamsulosin HCl 0.4 mg 02/13/18 22:00 02/23/18 22:24 Flomax - PO 0.4 mg HS [facility] Administration Warfarin Sodium 4 mg 02/18/18 18:00 02/23/18 18:31 Coumadin - PO 4 mg DAILY@1800 [facility] Administration AP: T2DM with hyperlgycemia ESRD S/P Asystole of 4 sec CAD H/O CVA Possible Aspiration Pneumonia Blood sugar goal around 200 to avoid hypoglycemia as pt has frequent hypoglycemia at home especially at night. BGM QACHS and 3 AM Levemir 28 units. Novolog ss coverage Rpt TSH as outpt. Will f/u Problem List - Problems (1) Chronic diastolic (congestive) heart failure Code(s): I50.32 - CHRONIC DIASTOLIC (CONGESTIVE) HEART FAILURE (2) Hip hematoma, left Code(s): S70.02XA - CONTUSION OF LEFT HIP, INITIAL ENCOUNTER Qualifiers: Qualified Code(s): S70.02XD - Contusion of left hip, subsequent encounter (3) Hypotension Code(s): I95.9 - HYPOTENSION, UNSPECIFIED (4) ESRD (end stage renal disease) on dialysis Code(s): N18.6 - END STAGE RENAL DISEASE; Z99.2 - DEPENDENCE ON RENAL DIALYSIS
[2018-02-24 13:52] LABS: HEMATOCRIT 31.9 % (35.4-49); HEMOGLOBIN 10.2 GM/dL (11.7-16.9); MCH 28.1 pg (25.7-33.7); MCHC 32.1 g/dl (32.0-35.9); MEAN CELL VOLUME 87.5 fl (80-96); MEAN PLT VOLUME 10.9 fl (7.5-11.1); PLATELET COUNT 139 K/MM3 (134-434); RBC 3.65 M/mm3 (4.00-5.60); RDW 20.6 % (11.9-15.9); WHITE BLOOD COUNT 6.5 K/mm3 (4.0-10.0)
[2018-02-24] MEDS ORDERED: EPOETIN ALFA 10,000 UNIT/1 ML VIAL IVPUSH ONE (14:00)
[2018-02-24] MEDS: ALBUMIN HUMAN 25% 12.5 GM/50 ML VIAL IVPB SCH ×4 (14:00→15:30)
--- NOTE | 2018-02-24 14:12 | PN ---
Progress Note, Physician Chief Complaint: Pt alert;; no chest pain or dyspnea; no dizziness or palpitations.He is presently undergoing hemodialysis. History of Present Illness: Patient is a 77 year old male (linnea Kingsley), with PMHx of CVA, CAD (SC--> 5 coronary stents at [facility] 08/17, with subsequent renal failure and ventricular thrombus; currently on ASA, clopidogrel, and warfarin), ESRD ( hemodialysis since 11/2017), diastolic CHF, HTN, HLD, s/p GI Bleed, Anxiety, Diabetes Mellitus, who presents with generalized weakness and low blood pressure. The patients (Dr. Davila) states that this afternoon he vomited and noted that his blood pressure was relatively low and he was feeling weak. She brought him to [facility] ER where he has history. He receives dialysis every Friday, , and Friday, but did not go today. Earlier in the day, prior to planned hemodialysis, he underwent renal angioplasty by the vascular surgeon (Dr. Huff) and was NPO. Surgical Hx: December 05 2017 - Renal angioplasty. 02/12/18 : Left AVFistula with stenosis. SC (Jul, 2017) with multiple stent placements simultaenously. PCP: Coleman Hess - Current Medication List Current Medications: Active Medications Albumin Human (Albumin Human 25%) 12.5 gm IVPB Q30M [facility] Albuterol/Ipratropium (Duoneb -) 1 amp NEB Q6H PRN PRN Reason: SHORTNESS OF BREATH Last Admin: 02/22/18 16:32 Dose: 1 amp Aspirin (Ecotrin -) 81 mg PO DAILY [facility] Last Admin: 02/23/18 09:16 Dose: 81 mg Epoetin Fahad (Epogen -) 10,000 unit IVPUSH ONCE ONE Stop: 02/24/18 06:01 Escitalopram Oxalate (Lexapro -) 5 mg PO HS [facility] Last Admin: 02/23/18 22:24 Dose: 5 mg Guaifenesin (Diabetic Tussin Dm -) 10 ml PO Q6H PRN PRN Reason: COUGH Last Admin: 02/22/18 10:27 Dose: 10 ml Sodium Chloride (Normal Saline -) 250 mls @ 3,000 mls/hr IV PRN PRN PRN Reason: Hypotension during Dialysis Stop: 02/24/18 14:51 Insulin Aspart (Novolog Vial Sliding Scale -) 1 vial SQ HS [facility]; Protocol Last Admin: 02/23/18 22:24 Dose: Not Given Insulin Aspart (Novolog Vial Sliding Scale -) 1 vial SQ TIDAC [facility]; Protocol Last Admin: 02/24/18 12:39 Dose: 8 units Insulin Detemir (Levemir Vial) 28 units SQ ACBK [facility] Last Admin: 02/24/18 07:10 Dose: 28 units Lactobacillus Acidophilus (Bacid -) 1 tab PO DAILY [facility] Last Admin: 02/23/18 09:16 Dose: 1 tab Metoprolol Tartrate (Lopressor -) 12.5 mg PO Q12H [facility] Last Admin: 02/24/18 12:52 Dose: Not Given Metoprolol Tartrate (Lopressor -) 25 mg PO Q12H [facility] Last Admin: 02/24/18 06:57 Dose: Not Given Midodrine (Proamatine -) 5 mg PO TID-MID [facility] Last Admin: 02/24/18 10:54 Dose: 5 mg Pantoprazole Sodium (Protonix Packets For Oral Suspension -) 40 mg PO DAILY [facility] Last Admin: 02/23/18 09:16 Dose: 40 mg Polyethylene Glycol (Miralax (For Daily Use) -) 17 gm PO DAILY [facility] Last Admin: 02/23/18 09:17 Dose: 17 grams Rosuvastatin Calcium (Crestor -) 10 mg PO [facility] Last Admin: 02/23/18 22:24 Dose: 10 mg Tamsulosin HCl (Flomax -) 0.4 mg PO [facility] Last Admin: 02/23/18 22:24 Dose: 0.4 mg Warfarin Sodium (Coumadin -) 4 mg PO DAILY@1800 [facility] Last Admin: 02/23/18 18:31 Dose: 4 mg - Objective Vital Signs: Vital Signs Temperature 97.9 F 02/24/18 10:00 Pulse Rate 66 02/24/18 10:00 Respiratory Rate 18 02/24/18 10:00 Blood Pressure 116/60 02/24/18 10:00 O2 Sat by Pulse Oximetry (%) 99 02/24/18 09:00 Labs: CBC, BMP 02/23/18 06:00 02/23/18 06:00 INR, PTT INR 2.03 (0.83-1.09) H 02/23/18 06:00 Problem List - Problems (1) AV fistula Assessment/Plan: left AV fistula. Still using right Permacath for hemodialysis. Code(s): I77.0 - ARTERIOVENOUS FISTULA, ACQUIRED (2) Anxiety and depression Assessment/Plan: on Lexapro. Code(s): F41.8 - OTHER SPECIFIED ANXIETY DISORDERS (3) BPH (benign prostatic hypertrophy) Code(s): N40.0 - BENIGN PROSTATIC HYPERPLASIA WITHOUT LOWER URINRY TRACT SYMP (4) CVA (cerebral infarction) Assessment/Plan: Od laconar infarcts in right occipital, periventricular sites; infarct left cerebelloum on 11/14 CT. On ASA and clopidogrel for recent SC-->several DE stents, and wafarin (LV thrombu; PAF). High-dose statin to keep LDL as low as possible. Physical rehabilitation. Code(s): I63.9 - CEREBRAL INFARCTION, UNSPECIFIED Qualifiers: Cerebral infarction mechanism: unspecified mechanism Qualified Code(s): I63.9 - Cerebral infarction, unspecified (5) Fall Code(s): W19.XXXA - UNSPECIFIED FALL, INITIAL ENCOUNTER Qualifiers: Encounter type: initial encounter Qualified Code(s): W19.XXXA - Unspecified fall, initial encounter (6) Hx of heart artery stent Assessment/Plan: Hx SC-->multiple stents. On ASA and clopidogrel (as well as warfarin for ventricular thrombus and atrial flutter). Will restart clopidogrel; f/u platelet.s Code(s): Z95.5 - PRESENCE OF CORONARY ANGIOPLASTY IMPLANT AND GRAFT (7) Hyperlipidemia Assessment/Plan: statin; keep LDL well below 70 mg/dL. Code(s): E78.5 - HYPERLIPIDEMIA, UNSPECIFIED Qualifiers: Hyperlipidemia type: pure hypercholesterolemia Qualified Code(s): E78.00 - Pure hypercholesterolemia, unspecified; E78.0 - Pure hypercholesterolemia (8) LV (left ventricular) mural thrombus Assessment/Plan: Once again on warfarin; IV heparin until INR 2-3 (1.6 today) Code(s): [id number] - (9) Hypotension Assessment/Plan: See under "atrial flutter". Code(s): I95.9 - HYPOTENSION, UNSPECIFIED (10) Chronic diastolic (congestive) heart failure Assessment/Plan: ECHO this admission: preserved LVEF, with regional wall abnormalities (apical, inferior); borderline dilated LV; cannot exclude LV apical thrombus. On metoprolol (dose increased today); hydralazine held until low BP has improved. On warfarin. 3 lb weight loss after dialysis yesterday. Code(s): I50.32 - CHRONIC DIASTOLIC (CONGESTIVE) HEART FAILURE (11) Atrial flutter Assessment/Plan: Tolerated UF and hemodialysis yesterday well (did not develop atrial flutter). Now in NSR; periods of mraked bradycardia. Will decrease metoprolol tartrate to 12.5 mg q 8h. Code(s): I48.92 - UNSPECIFIED ATRIAL FLUTTER (12) Elevated LFTs Assessment/Plan: improving values since hemodilysis yesterday. Code(s): R94.5 - ABNORMAL RESULTS OF LIVER FUNCTION STUDIES (13) Hip hematoma, left Code(s): S70.02XA - CONTUSION OF LEFT HIP, INITIAL ENCOUNTER Qualifiers: Encounter type: subsequent encounter Qualified Code(s): S70.02XD - Contusion of left hip, subsequent encounter
[2018-02-24 14:56] LABS: ANION GAP 14 MMOL/L (8-16); BLOOD UREA NITROGEN 74 mg/dL (7-18); CALCIUM 8.2 mg/dL (8.5-10.1); CHLORIDE 94 mmol/L (98-107); CO2 26 mmol/L (21-32); CREATININE 3.5 mg/dL (0.7-1.3); GLUCOSE,RANDOM 201 mg/dL (74-106); PHOSPHOROUS 5.2 mg/dL (2.5-4.9); POTASSIUM 4.9 mmol/L (3.5-5.1); SODIUM 134 mmol/L (136-145)
--- NOTE | 2018-02-24 15:36 | PN ---
Progress Note (short form) - Note Progress Note: Renal follow up for ESRD on HD Pt seen and examined during dialysis seen about 35 minutes into tx BP and HR stable thus far goal UF is 3L pt continues to have cough and mild sob Vital Signs Temperature 97.7 F 02/24/18 14:00 Pulse Rate 69 02/24/18 15:15 Respiratory Rate 18 02/24/18 15:15 Blood Pressure 129/76 02/24/18 15:15 O2 Sat by Pulse Oximetry (%) 99 02/24/18 09:00 Intake & Output 02/21/18 02/22/18 02/23/18 02/24/18 23:59 23:59 23:59 23:59 Intake Total 410 480 930 Output Total 0 Balance 410 480 930 Weight 69.4 kg 65.969 kg NAD RRR, No M/R Dec BS at the lung bases, no rales soft NT/ND Left hip hematoma + sacral edema CBC, BMP 02/24/18 13:20 02/24/18 13:20 Current Medications Albuterol/Ipratropium (Duoneb -) 1 amp NEB Q6H PRN PRN Reason: SHORTNESS OF BREATH Last Admin: 02/22/18 16:32 Dose: 1 amp Aspirin (Ecotrin -) 81 mg PO DAILY [facility] Last Admin: 02/23/18 09:16 Dose: 81 mg Clopidogrel Bisulfate (Plavix -) 75 mg PO DAILY [facility] Escitalopram Oxalate (Lexapro -) 5 mg PO HS [facility] Last Admin: 02/23/18 22:24 Dose: 5 mg Guaifenesin (Diabetic Tussin Dm -) 10 ml PO Q6H PRN PRN Reason: COUGH Last Admin: 02/22/18 10:27 Dose: 10 ml Insulin Aspart (Novolog Vial Sliding Scale -) 1 vial SQ HS [facility]; Protocol Last Admin: 02/23/18 22:24 Dose: Not Given Insulin Aspart (Novolog Vial Sliding Scale -) 1 vial SQ TIDAC [facility]; Protocol Last Admin: 02/24/18 12:39 Dose: 8 units Insulin Detemir (Levemir Vial) 28 units SQ ACBK [facility] Last Admin: 02/24/18 07:10 Dose: 28 units Lactobacillus Acidophilus (Bacid -) 1 tab PO DAILY [facility] Last Admin: 02/23/18 09:16 Dose: 1 tab Metoprolol Tartrate (Lopressor -) 12.5 mg PO TID [facility] Last Admin: 02/24/18 15:05 Dose: Not Given Midodrine (Proamatine -) 5 mg PO TID-MID [facility] Last Admin: 02/24/18 10:54 Dose: 5 mg Pantoprazole Sodium (Protonix Packets For Oral Suspension -) 40 mg PO DAILY [facility] Last Admin: 02/23/18 09:16 Dose: 40 mg Polyethylene Glycol (Miralax (For Daily Use) -) 17 gm PO DAILY [facility] Last Admin: 02/23/18 09:17 Dose: 17 grams Rosuvastatin Calcium (Crestor -) 10 mg PO HS [facility] Last Admin: 02/23/18 22:24 Dose: 10 mg Tamsulosin HCl (Flomax -) 0.4 mg PO [facility] Last Admin: 02/23/18 22:24 Dose: 0.4 mg Warfarin Sodium (Coumadin -) 4 mg PO DAILY@1800 [facility] Last Admin: 02/23/18 18:31 Dose: 4 mg 77 year old [place] gentleman with Hx of ESRD on HD (started this year), CAD s/p PCI, Hypertension, Hyperlipidemia, CHF, Left Ventricular Thrombus on Coumadin who presented from home with weakness and hypotension. #Weakness/Hypotension #CHF/Volume overload #ESRD on HD with Hyperkalemia #Ventricular Thrombus #Anemia #Hip Hematoma w/o fracture tolerating HD well today will check CXR in the AM likely will need additional UF tomorrow Continue metoprolol as per cardiology for rate control Florencio Del Cid DO
[2018-02-24] MEDS ORDERED: SODIUM CHLORIDE 250 ML IV PRN (15:37)
[2018-02-24] MEDS: LACTOBACILLUS ACIDOPHILUS 1 TABLET PO SCH (18:12)
[2018-02-24] MEDS: ASPIRIN COATED 81 MG TABLET.EC PO SCH (18:12)
[2018-02-24] MEDS: WARFARIN NA 2 MG TABLET (UD) PO SCH (18:13)
[2018-02-24] MEDS: POLYETHYLENE GLYCOL 3350 119 GM BTL PO SCH (18:13)
[2018-02-24] MEDS: PANTOPRAZOLE SOD 40 MG SUSPENSION PACKET PO SCH (18:13)
[2018-02-24] MEDS: TAMSULOSIN HCL 0.4 MG CAP.ER.24H (FP) PO SCH (21:38)
[2018-02-24] MEDS: ROSUVASTATIN CA 10 MG TABLET (FP) PO SCH (21:39)
[2018-02-24] MEDS: ESCITALOPRAM OXALATE 10 MG TABLET (FP) PO SCH (21:39)
[2018-02-25] MEDS ORDERED: EPOETIN ALFA 10,000 UNIT/1 ML VIAL IVPUSH ONE (06:00)
[2018-02-25 06:48] LABS: INR 3.28 (0.83-1.09); PROTHROMBIN TIME (PATIENT) 37.1 SEC (9.7-13.0)
[2018-02-25] MEDS: INSULIN SLIDING SCALE (NOVOLOG) 1 VIAL SQ SCH ×4 (06:59→22:34)
[2018-02-25] MEDS: METOPROLOL TARTRATE 25 MG TABLET (FP) PO SCH ×3 (07:00→22:35)
[2018-02-25] MEDS: INSULIN (LEVEMIR) 100 UNITS/ML UNITS SQ SCH (07:00)
--- NOTE | 2018-02-25 09:41 | PN ---
Progress Note (short form) - Note Progress Note: Feels good No new complaints Has dry cough No hypos Apetite good Vital Signs Period Temp Pulse Resp BP Sys/Simons Pulse Ox Last 24 Hr 97.5 F-98.3 F 60-82 18-20 95-134/52-76 99 PE: awake, alert Neck: Supple HEENT: EOMI Lungs:CTA CVS: S1S2 Abd: Benign Ext: No edema CMP Sodium 134 mmol/L (136-145) L 02/24/18 13:20 Potassium 4.9 mmol/L (3.5-5.1) 02/24/18 13:20 Chloride 94 mmol/L (98-107) L 02/24/18 13:20 Carbon Dioxide 26 mmol/L (21-32) 02/24/18 13:20 Anion Gap 14 MMOL/L (8-16) 02/24/18 13:20 BUN 74 mg/dL (7-18) H 02/24/18 13:20 Creatinine 3.5 mg/dL (0.7-1.3) H 02/24/18 13:20 Creat Clearance w eGFR 17.02 (>60) 02/24/18 13:20 POC Glucometer 117 UNITS (80-120) 02/25/18 06:55 Random Glucose 201 mg/dL (74-106) H 02/24/18 13:20 Lactic Acid 1.5 mmol/L (0.0-2.0) 02/13/18 05:30 Calcium 8.2 mg/dL (8.5-10.1) L 02/24/18 13:20 Phosphorus 5.2 mg/dL (2.5-4.9) H 02/24/18 13:20 Magnesium 2.5 mg/dL (1.8-2.4) H 02/23/18 06:00 Total Bilirubin 0.7 mg/dL (0.2-1.0) 02/23/18 06:00 AST 27 U/L (15-37) D 02/23/18 06:00 ALT 210 U/L (12-78) H D 02/23/18 06:00 Alkaline Phosphatase 94 U/L (45-117) 02/23/18 06:00 Ammonia 22.7 umol/L (11-32) 02/20/18 05:30 Creatine Kinase 38 IU/L (39-308) L 02/17/18 05:30 Troponin I 0.06 ng/ml (0.00-0.05) H D 02/17/18 05:30 B-Natriuretic Peptide 97829.90 pg/ml (5-450) H 02/21/18 20:05 Total Protein 5.4 g/dl (6.4-8.2) L 02/23/18 06:00 Albumin 2.6 g/dl (3.4-5.0) L 02/23/18 06:00 Total Amylase 67 U/L (25-115) 02/12/18 23:40 Lipase 236 U/L (73-393) 02/12/18 23:40 TSH 6.01 uIU/ml (0.358-3.74) H D 02/17/18 05:30 Free T4 0.84 ng/dl (0.76-1.16) 02/21/18 20:05 Current Medications Generic Name Dose Route Start Last Admin Trade Name Freq PRN Reason Stop Dose Admin Albuterol/Ipratropium 1 amp 02/14/18 12:11 02/22/18 16:32 Duoneb - NEB 1 amp Q6H PRN Administration SHORTNESS OF BREATH Aspirin 81 mg 02/15/18 10:00 02/24/18 18:12 Ecotrin - PO 81 mg DAILY [facility] Administration Clopidogrel Bisulfate 75 mg 02/25/18 10:00 Plavix - PO DAILY [facility] Epoetin Fahad 10,000 unit 02/25/18 06:00 Procrit - IVPUSH 02/25/18 06:01 ONCE ONE Escitalopram Oxalate 5 mg 02/13/18 22:00 02/24/18 21:39 Lexapro - PO 5 mg HS [facility] Administration Guaifenesin 10 ml 02/17/18 13:13 02/22/18 10:27 Diabetic Tussin Dm - PO 10 ml Q6H PRN Administration COUGH Sodium Chloride 250 mls @ 3,000 mls/hr 02/24/18 15:37 Normal Saline - IV 02/25/18 15:37 PRN PRN Hypotension during Dialysis Insulin Aspart 1 vial 02/18/18 22:00 02/24/18 21:39 Novolog Vial Sliding Scale - SQ Not Given HS [facility] Protocol Insulin Aspart 1 vial 02/20/18 11:12 08/29/18 06:59 Novolog Vial Sliding Scale - SQ Not Given TIDAC [facility] Protocol Insulin Detemir 28 units 02/24/18 07:00 02/25/18 07:00 Levemir Vial SQ Not Given ACBK [facility] Lactobacillus Acidophilus 1 tab 02/19/18 10:00 02/24/18 18:12 Bacid - PO 1 tab DAILY [facility] Administration Metoprolol Tartrate 12.5 mg 02/24/18 14:15 02/25/18 07:00 Lopressor - PO 12.5 mg TID [facility] Administration Midodrine 5 mg 02/20/18 12:30 02/24/18 18:14 Proamatine - PO 5 mg TID-MID [facility] Administration Pantoprazole Sodium 40 mg 02/22/18 16:30 02/24/18 18:13 Protonix Packets For Oral Suspension - PO 40 mg DAILY [facility] Administration Polyethylene Glycol 17 gm 02/17/18 20:15 02/24/18 18:13 Miralax (For Daily Use) - PO 17 grams DAILY [facility] Administration Rosuvastatin Calcium 10 mg 02/21/18 22:00 02/24/18 21:39 Crestor - PO 10 mg HS [facility] Administration Tamsulosin HCl 0.4 mg 02/13/18 22:00 02/24/18 21:38 Flomax - PO 0.4 mg HS [facility] Administration Warfarin Sodium 4 mg 02/18/18 18:00 02/24/18 18:13 Coumadin - PO 4 mg DAILY@1800 [facility] Administration AP: T2DM with hyperlgycemia ESRD S/P Asystole of 4 sec CAD H/O CVA Possible Aspiration Pneumonia Blood sugar goal around 120 to 180 to avoid hypoglycemia.Blood sugar in the hospital has been stable with no demonstrated brittleness eventhough pt had frequent hypoglycemia at home especially at night. BGM QACHS and 3 AM Snack of half sandwich if FS <120 at bedtime or 3 AM. Decrease Levemir 25 units. Novolog ss coverage Rpt TSH as outpt. Will f/u Problem List - Problems (1) Chronic diastolic (congestive) heart failure Code(s): I50.32 - CHRONIC DIASTOLIC (CONGESTIVE) HEART FAILURE (2) Hip hematoma, left Code(s): S70.02XA - CONTUSION OF LEFT HIP, INITIAL ENCOUNTER Qualifiers: Encounter type: subsequent encounter Qualified Code(s): S70.02XD - Contusion of left hip, subsequent encounter (3) Hypotension Code(s): I95.9 - HYPOTENSION, UNSPECIFIED (4) ESRD (end stage renal disease) on dialysis Code(s): N18.6 - END STAGE RENAL DISEASE; Z99.2 - DEPENDENCE ON RENAL DIALYSIS
[2018-02-25] MEDS: PANTOPRAZOLE SOD 40 MG SUSPENSION PACKET PO SCH (09:54)
--- NOTE | 2018-02-25 10:02 | PN ---
Progress Note, Physician History of Present Illness: pulmonary alert,comfortable,-cp,-resp distress - Current Medication List Current Medications: Active Medications Albuterol/Ipratropium (Duoneb -) 1 amp NEB Q6H PRN PRN Reason: SHORTNESS OF BREATH Last Admin: 02/22/18 16:32 Dose: 1 amp Aspirin (Ecotrin -) 81 mg PO DAILY [facility] Last Admin: 02/24/18 18:12 Dose: 81 mg Clopidogrel Bisulfate (Plavix -) 75 mg PO DAILY [facility] Epoetin Fahad (Procrit -) 10,000 unit IVPUSH ONCE ONE Stop: 02/25/18 06:01 Escitalopram Oxalate (Lexapro -) 5 mg PO [facility] Last Admin: 02/24/18 21:39 Dose: 5 mg Guaifenesin (Diabetic Tussin Dm -) 10 ml PO Q6H PRN PRN Reason: COUGH Last Admin: 02/22/18 10:27 Dose: 10 ml Sodium Chloride (Normal Saline -) 250 mls @ 3,000 mls/hr IV PRN PRN PRN Reason: Hypotension during Dialysis Stop: 02/25/18 15:37 Insulin Aspart (Novolog Vial Sliding Scale -) 1 vial SQ HS [facility]; Protocol Last Admin: 02/24/18 21:39 Dose: Not Given Insulin Aspart (Novolog Vial Sliding Scale -) 1 vial SQ TIDAC [facility]; Protocol Last Admin: 02/25/18 06:59 Dose: Not Given Insulin Detemir (Levemir Vial) 25 units SQ ACBK [facility] Lactobacillus Acidophilus (Bacid -) 1 tab PO DAILY [facility] Last Admin: 02/24/18 18:12 Dose: 1 tab Metoprolol Tartrate (Lopressor -) 12.5 mg PO TID [facility] Last Admin: 02/25/18 07:00 Dose: 12.5 mg Midodrine (Proamatine -) 5 mg PO TID-MID [facility] Last Admin: 02/24/18 18:14 Dose: 5 mg Pantoprazole Sodium (Protonix Packets For Oral Suspension -) 40 mg PO DAILY [facility] Last Admin: 02/24/18 18:13 Dose: 40 mg Polyethylene Glycol (Miralax (For Daily Use) -) 17 gm PO DAILY [facility] Last Admin: 02/24/18 18:13 Dose: 17 grams Rosuvastatin Calcium (Crestor -) 10 mg PO HS [facility] Last Admin: 02/24/18 21:39 Dose: 10 mg Tamsulosin HCl (Flomax -) 0.4 mg PO [facility] Last Admin: 02/24/18 21:38 Dose: 0.4 mg Warfarin Sodium (Coumadin -) 4 mg PO DAILY@1800 [facility] Last Admin: 02/24/18 18:13 Dose: 4 mg - Objective Vital Signs: Vital Signs Temperature 97.5 F L 02/25/18 05:00 Pulse Rate 70 02/25/18 05:00 Respiratory Rate 20 02/25/18 05:00 Blood Pressure 116/60 02/25/18 05:00 O2 Sat by Pulse Oximetry (%) 99 02/24/18 21:00 Constitutional: Yes: Well Nourished, Calm Eyes: Yes: WNL HENT: Yes: WNL Neck: Yes: WNL Cardiovascular: Yes: Regular Rate and Rhythm, S1, S2 Respiratory: Yes: Rales, Wheezes (basilar rales) Gastrointestinal: Yes: Normal Bowel Sounds, Soft Extremities: Yes: WNL Edema: No Labs: CBC, BMP 02/24/18 13:20 PTT INR 3.28 (0.83-1.09) H 02/25/18 05:30 Problem List - Problems (1) CAD (coronary artery disease) Code(s): I25.10 - ATHSCL HEART DISEASE OF [place] CORONARY ARTERY W/O ANG PCTRS (2) Chronic diastolic (congestive) heart failure Code(s): I50.32 - CHRONIC DIASTOLIC (CONGESTIVE) HEART FAILURE (3) ESRD (end stage renal disease) on dialysis Code(s): N18.6 - END STAGE RENAL DISEASE; Z99.2 - DEPENDENCE ON RENAL DIALYSIS (4) Hypothyroid Code(s): E03.9 - HYPOTHYROIDISM, UNSPECIFIED (5) Acute on chronic systolic CHF (congestive heart failure) Code(s): I50.23 - ACUTE ON CHRONIC SYSTOLIC (CONGESTIVE) HEART FAILURE (6) Anemia Code(s): D64.9 - ANEMIA, UNSPECIFIED (7) CVA (cerebral infarction) Code(s): I63.9 - CEREBRAL INFARCTION, UNSPECIFIED Qualifiers: Cerebral infarction mechanism: unspecified mechanism Qualified Code(s): I63.9 - Cerebral infarction, unspecified (8) ESRD (end stage renal disease) on dialysis Code(s): N18.6 - END STAGE RENAL DISEASE; Z99.2 - DEPENDENCE ON RENAL DIALYSIS (9) Hx of heart artery stent Code(s): Z95.5 - PRESENCE OF CORONARY ANGIOPLASTY IMPLANT AND GRAFT (10) LV (left ventricular) mural thrombus Code(s): [id number] - (11) Syncope Code(s): R55 - SYNCOPE AND COLLAPSE Assessment/Plan ASSESSMENT AND PLAN: Syncope Sinus Pause Paroxysmal Atrial Fibrillation with RVR now in sinus rhythm CAD LV Diastolic Dysfunction HTN Hyperlipidemia DM LV thrombus h/o CVA ESRD on HD - rate control with metoprolol - anticoagulation with target INR 2-3 - HD per renal with UF as tolerated - cough suppressants - glucose control - O2 to keep Spo2 >90% DR CARCAMO
[2018-02-25] MEDS: LACTOBACILLUS ACIDOPHILUS 1 TABLET PO SCH (10:05)
[2018-02-25] MEDS: CLOPIDOGREL BISULFATE 75 MG TABLET (FP) PO SCH (10:05)
[2018-02-25] MEDS: ASPIRIN COATED 81 MG TABLET.EC PO SCH (10:05)
[2018-02-25] MEDS: MIDODRINE HCL 5 MG TABLET PO SCH ×3 (10:06→18:05)
[2018-02-25] MEDS: POLYETHYLENE GLYCOL 3350 119 GM BTL PO SCH (10:06)
--- NOTE | 2018-02-25 11:53 | PN ---
Progress Note, Physician History of Present Illness: Patient is a 77 year old male (linnea Kingsley), with PMHx of CVA, CAD (PA--> 5 coronary stents at [facility] 08/17, with subsequent renal failure and ventricular thrombus; currently on ASA, clopidogrel, and warfarin), ESRD ( hemodialysis since 11/2017), diastolic CHF, HTN, HLD, s/p GI Bleed, Anxiety, Diabetes Mellitus, who presents with generalized weakness and low blood pressure. The patients (Dr. Davila) states that this afternoon he vomited and noted that his blood pressure was relatively low and he was feeling weak. She brought him to [facility] ER where he has history. He receives dialysis every Friday, , and Friday, but did not go today. Earlier in the day, prior to planned hemodialysis, he underwent renal angioplasty by the vascular surgeon (Dr. Huff) and was NPO. - Current Medication List Current Medications: Active Medications Albuterol/Ipratropium (Duoneb -) 1 amp NEB Q6H PRN PRN Reason: SHORTNESS OF BREATH Last Admin: 02/22/18 16:32 Dose: 1 amp Aspirin (Ecotrin -) 81 mg PO DAILY [facility] Last Admin: 02/25/18 10:05 Dose: 81 mg Clopidogrel Bisulfate (Plavix -) 75 mg PO DAILY [facility] Last Admin: 02/25/18 10:05 Dose: 75 mg Epoetin Fahad (Procrit -) 10,000 unit IVPUSH ONCE ONE Stop: 02/25/18 06:01 Escitalopram Oxalate (Lexapro -) 5 mg PO HS [facility] Last Admin: 02/24/18 21:39 Dose: 5 mg Guaifenesin (Diabetic Tussin Dm -) 10 ml PO Q6H PRN PRN Reason: COUGH Last Admin: 02/22/18 10:27 Dose: 10 ml Sodium Chloride (Normal Saline -) 250 mls @ 3,000 mls/hr IV PRN PRN PRN Reason: Hypotension during Dialysis Stop: 02/25/18 15:37 Insulin Aspart (Novolog Vial Sliding Scale -) 1 vial SQ HS [facility]; Protocol Last Admin: 02/24/18 21:39 Dose: Not Given Insulin Aspart (Novolog Vial Sliding Scale -) 1 vial SQ TIDAC [facility]; Protocol Last Admin: 02/25/18 06:59 Dose: Not Given Insulin Detemir (Levemir Vial) 25 units SQ ACBK [facility] Lactobacillus Acidophilus (Bacid -) 1 tab PO DAILY [facility] Last Admin: 02/25/18 10:05 Dose: 1 tab Metoprolol Tartrate (Lopressor -) 12.5 mg PO TID [facility] Last Admin: 02/25/18 07:00 Dose: 12.5 mg Midodrine (Proamatine -) 5 mg PO TID-MID [facility] Last Admin: 02/25/18 10:06 Dose: 5 mg Pantoprazole Sodium (Protonix Packets For Oral Suspension -) 40 mg PO DAILY [facility] Last Admin: 02/25/18 09:54 Dose: 40 mg Polyethylene Glycol (Miralax (For Daily Use) -) 17 gm PO DAILY [facility] Last Admin: 02/25/18 10:06 Dose: 17 grams Rosuvastatin Calcium (Crestor -) 10 mg PO [facility] Last Admin: 02/24/18 21:39 Dose: 10 mg Tamsulosin HCl (Flomax -) 0.4 mg PO [facility] Last Admin: 02/24/18 21:38 Dose: 0.4 mg Warfarin Sodium (Coumadin -) 4 mg PO DAILY@1800 [facility] Last Admin: 02/24/18 18:13 Dose: 4 mg - Objective Vital Signs: Vital Signs Temperature 98.1 F 02/25/18 09:00 Pulse Rate 69 02/25/18 09:00 Respiratory Rate 20 02/25/18 09:00 Blood Pressure 106/57 02/25/18 09:00 O2 Sat by Pulse Oximetry (%) 99 02/25/18 09:00 Eyes: Yes: WNL, Conjunctiva Clear, EOM Intact HENT: Yes: WNL, Atraumatic, Normocephalic Neck: Yes: WNL, Supple, Trachea Midline Cardiovascular: Yes: WNL, Regular Rate and Rhythm Respiratory: Yes: WNL, Regular, CTA Bilaterally Gastrointestinal: Yes: WNL, Normal Bowel Sounds Genitourinary: Yes: WNL Musculoskeletal: Yes: WNL Extremities: Yes: WNL Edema: No Integumentary: Yes: WNL Neurological: Yes: WNL, Alert, Oriented ...Motor Strength: WNL Psychiatric: Yes: WNL Labs: CBC, BMP 02/24/18 13:20 02/24/18 13:20 INR, PTT INR 3.28 (0.83-1.09) H 02/25/18 05:30 Assessment/Plan - Problems (1) AV fistula Assessment/Plan: left AV fistula. Still using right Permacath for hemodialysis. Code(s): I77.0 - ARTERIOVENOUS FISTULA, ACQUIRED (2) Anxiety and depression Assessment/Plan: on Lexapro. Code(s): F41.8 - OTHER SPECIFIED ANXIETY DISORDERS (3) BPH (benign prostatic hypertrophy) Code(s): N40.0 - BENIGN PROSTATIC HYPERPLASIA WITHOUT LOWER URINRY TRACT SYMP (4) CVA (cerebral infarction) Assessment/Plan: Od laconar infarcts in right occipital, periventricular sites; infarct left cerebelloum on 11/14 CT. On ASA and clopidogrel for recent PA-->several DE stents, and wafarin (LV thrombu; PAF). High-dose statin to keep LDL as low as possible. Physical rehabilitation. Code(s): I63.9 - CEREBRAL INFARCTION, UNSPECIFIED Qualifiers: Cerebral infarction mechanism: unspecified mechanism Qualified Code(s): I63.9 - Cerebral infarction, unspecified (5) Fall Code(s): W19.XXXA - UNSPECIFIED FALL, INITIAL ENCOUNTER Qualifiers: Encounter type: initial encounter Qualified Code(s): W19.XXXA - Unspecified fall, initial encounter (6) Hx of heart artery stent Assessment/Plan: Hx PA-->multiple stents. On ASA and clopidogrel (as well as warfarin for ventricular thrombus and atrial flutter). Will restart clopidogrel; f/u platelet.s Code(s): Z95.5 - PRESENCE OF CORONARY ANGIOPLASTY IMPLANT AND GRAFT (7) Hyperlipidemia Assessment/Plan: statin; keep LDL well below 70 mg/dL. Code(s): E78.5 - HYPERLIPIDEMIA, UNSPECIFIED Qualifiers: Hyperlipidemia type: pure hypercholesterolemia Qualified Code(s): E78.00 - Pure hypercholesterolemia, unspecified; E78.0 - Pure hypercholesterolemia (8) LV (left ventricular) mural thrombus Assessment/Plan: Once again on warfarin; IV heparin until INR 2-3 (1.6 today) Code(s): [id number] - (9) Hypotension Assessment/Plan: See under "atrial flutter". Code(s): I95.9 - HYPOTENSION, UNSPECIFIED (10) Chronic diastolic (congestive) heart failure Assessment/Plan: ECHO this admission: preserved LVEF, with regional wall abnormalities (apical, inferior); borderline dilated LV; cannot exclude LV apical thrombus. On metoprolol (dose increased today); hydralazine held until low BP has improved. On warfarin. 3 lb weight loss after dialysis yesterday. Code(s): I50.32 - CHRONIC DIASTOLIC (CONGESTIVE) HEART FAILURE (11) Atrial flutter Assessment/Plan: Tolerated UF and hemodialysis yesterday well (did not develop atrial flutter). Now in NSR; periods of mraked bradycardia. Will decrease metoprolol tartrate to 12.5 mg q 8h. Code(s): I48.92 - UNSPECIFIED ATRIAL FLUTTER (12) Elevated LFTs Assessment/Plan: improving values since hemodilysis yesterday. Code(s): R94.5 - ABNORMAL RESULTS OF LIVER FUNCTION STUDIES (13) Hip hematoma, left Code(s): S70.02XA - CONTUSION OF LEFT HIP, INITIAL ENCOUNTER Qualifiers: Encounter type: subsequent encounter Qualified Code(s): S70.02XD - Contusion of left hip, subsequent encounter
[2018-02-25] MEDS ORDERED: INSULIN (NOVOLOG) ASPART 100 UNITS/ML 10ML VIAL ONE (12:54)
--- NOTE | 2018-02-25 15:05 | PN ---
Progress Note (short form) - Note Progress Note: Renal follow up for ESRD on HD Pt seen and examined at the bedside has persistent cough no cp, mild gonzales + pain in left hip Vital Signs Temperature 98.1 F 02/25/18 09:00 Pulse Rate 69 02/25/18 09:00 Respiratory Rate 20 02/25/18 09:00 Blood Pressure 106/57 02/25/18 09:00 O2 Sat by Pulse Oximetry (%) 99 02/25/18 09:00 Intake & Output 02/22/18 02/23/18 02/24/18 02/25/18 23:59 23:59 23:59 23:59 Intake Total 480 930 240 Balance 480 930 240 Weight 65.969 kg 73.301 kg NAD RRR, No M/R Dec BS at the lung bases, no rales soft NT/ND Left hip hematoma + sacral edema CBC, BMP 02/24/18 13:20 02/24/18 13:20 Current Medications Albuterol/Ipratropium (Duoneb -) 1 amp NEB Q6H PRN PRN Reason: SHORTNESS OF BREATH Last Admin: 02/22/18 16:32 Dose: 1 amp Aspirin (Ecotrin -) 81 mg PO DAILY [facility] Last Admin: 02/25/18 10:05 Dose: 81 mg Clopidogrel Bisulfate (Plavix -) 75 mg PO DAILY [facility] Last Admin: 02/25/18 10:05 Dose: 75 mg Epoetin Fahad (Procrit -) 10,000 unit IVPUSH ONCE ONE Stop: 02/25/18 06:01 Escitalopram Oxalate (Lexapro -) 5 mg PO HS [facility] Last Admin: 02/24/18 21:39 Dose: 5 mg Guaifenesin (Diabetic Tussin Dm -) 10 ml PO Q6H PRN PRN Reason: COUGH Last Admin: 02/22/18 10:27 Dose: 10 ml Sodium Chloride (Normal Saline -) 250 mls @ 3,000 mls/hr IV PRN PRN PRN Reason: Hypotension during Dialysis Stop: 02/25/18 15:37 Insulin Aspart (Novolog Vial Sliding Scale -) 1 vial SQ HS [facility]; Protocol Last Admin: 02/24/18 21:39 Dose: Not Given Insulin Aspart (Novolog Vial Sliding Scale -) 1 vial SQ TIDAC [facility]; Protocol Last Admin: 02/25/18 12:37 Dose: 10 units Insulin Detemir (Levemir Vial) 25 units SQ ACBK [facility] Lactobacillus Acidophilus (Bacid -) 1 tab PO DAILY [facility] Last Admin: 02/25/18 10:05 Dose: 1 tab Metoprolol Tartrate (Lopressor -) 12.5 mg PO TID [facility] Last Admin: 02/25/18 07:00 Dose: 12.5 mg Midodrine (Proamatine -) 5 mg PO TID-MID [facility] Last Admin: 02/25/18 10:06 Dose: 5 mg Pantoprazole Sodium (Protonix Packets For Oral Suspension -) 40 mg PO DAILY [facility] Last Admin: 02/25/18 09:54 Dose: 40 mg Polyethylene Glycol (Miralax (For Daily Use) -) 17 gm PO DAILY [facility] Last Admin: 02/25/18 10:06 Dose: 17 grams Rosuvastatin Calcium (Crestor -) 10 mg PO HS [facility] Last Admin: 02/24/18 21:39 Dose: 10 mg Tamsulosin HCl (Flomax -) 0.[address] [facility] Last Admin: 02/24/18 21:38 Dose: 0.4 mg Warfarin Sodium (Coumadin -) 4 mg PO DAILY@1800 [facility] Last Admin: 02/24/18 18:13 Dose: 4 mg 77 year old gentleman with Hx of ESRD on HD (started this year), CAD s/p PCI, Hypertension, Hyperlipidemia, CHF, Left Ventricular Thrombus on Coumadin who presented from home with weakness and hypotension. #Weakness/Hypotension #CHF/Volume overload #ESRD on HD with Hyperkalemia #Ventricular Thrombus #Anemia #Hip Hematoma w/o fracture isolated UF today with goal of 2L removal continue salt restriction for Hd tomorrow as tolerated continue BB as per cardiology get CT of pelvis to r/o fracture of left hip Florencio Del Cid DO
--- NOTE | 2018-02-25 17:41 | PN ---
Progress Note (short form) - Note Progress Note: ^^^^^^^^^^^^ medical cover for Dr Hess ^^^^^^^^^^^^^^^ Current Medications Albuterol/Ipratropium (Duoneb -) 1 amp NEB Q6H PRN PRN Reason: SHORTNESS OF BREATH Last Admin: 02/22/18 16:32 Dose: 1 amp Aspirin (Ecotrin -) 81 mg PO DAILY [facility] Last Admin: 02/25/18 10:05 Dose: 81 mg Clopidogrel Bisulfate (Plavix -) 75 mg PO DAILY [facility] Last Admin: 02/25/18 10:05 Dose: 75 mg Epoetin Fahad (Procrit -) 10,000 unit IVPUSH ONCE ONE Stop: 02/25/18 06:01 Escitalopram Oxalate (Lexapro -) 5 mg PO [facility] Last Admin: 02/24/18 21:39 Dose: 5 mg Guaifenesin (Diabetic Tussin Dm -) 10 ml PO Q6H PRN PRN Reason: COUGH Last Admin: 02/22/18 10:27 Dose: 10 ml Sodium Chloride (Normal Saline -) 250 mls @ 3,000 mls/hr IV PRN PRN PRN Reason: Hypotension during Dialysis Stop: 02/25/18 15:37 Insulin Aspart (Novolog Vial Sliding Scale -) 1 vial SQ HS [facility]; Protocol Last Admin: 02/24/18 21:39 Dose: Not Given Insulin Aspart (Novolog Vial Sliding Scale -) 1 vial SQ TIDAC [facility]; Protocol Last Admin: 02/25/18 12:37 Dose: 10 units Insulin Detemir (Levemir Vial) 25 units SQ ACBK [facility] Lactobacillus Acidophilus (Bacid -) 1 tab PO DAILY [facility] Last Admin: 02/25/18 10:05 Dose: 1 tab Metoprolol Tartrate (Lopressor -) 12.5 mg PO TID [facility] Last Admin: 02/25/18 14:33 Dose: Not Given Midodrine (Proamatine -) 5 mg PO TID-MID [facility] Last Admin: 02/25/18 14:34 Dose: Not Given Pantoprazole Sodium (Protonix Packets For Oral Suspension -) 40 mg PO DAILY [facility] Last Admin: 02/25/18 09:54 Dose: 40 mg Polyethylene Glycol (Miralax (For Daily Use) -) 17 gm PO DAILY [facility] Last Admin: 02/25/18 10:06 Dose: 17 grams Rosuvastatin Calcium (Crestor -) 10 mg PO [facility] Last Admin: 02/24/18 21:39 Dose: 10 mg Tamsulosin HCl (Flomax -) 0.4 mg PO [facility] Last Admin: 02/24/18 21:38 Dose: 0.4 mg Warfarin Sodium (Coumadin -) 4 mg PO DAILY@1800 [facility] Last Admin: 02/24/18 18:13 Dose: 4 mg Laboratory Results - last 24 hr 02/24/18 02/24/18 02/25/18 17:21 21:37 02:52 PT with INR INR POC Glucometer 227 193 105 02/25/18 02/25/18 02/25/18 05:30 06:55 12:26 PT with INR 37.10 H INR 3.28 H POC Glucometer 117 288 Vital Signs Temperature 98.2 F 02/25/18 14:20 Pulse Rate 66 02/25/18 16:30 Respiratory Rate 18 02/25/18 16:30 Blood Pressure 113/65 02/25/18 16:30 O2 Sat by Pulse Oximetry (%) 99 02/25/18 09:00 CC; None ````````````````` skin--ecchymosis L thigh, indurated eyes--non injected; eomi lungs--diminished breaths bilat lungs heart--RR abd--soft chest--with RU side PC ext--LUE trill palpated neuro--drowsy but rousable; verbal; able to move on command; but listless for most part ``````````````````````````````````````````````` Summ > SVT--seems to under control now, no runs of SVT or pauses reported today > Hypotension--mulitfactorial; has been better with Midodrine, and now able to have dialysis. > ESRD--on HD, but has had to be attenuated due to low BP state > anemia--H/h improved, will check in AM > high Transaminases--3/4 enzymes in NL range; likely was due to passive hepatic congestion > CAD-- post angioplasty, ventricular thrombus, on Plavix, asa, warf on hold due to high INR > DM--Glucose in 100--200's; see endocrine note > Hematoma left thigh and hip --due to a fall, no Fx on Xray; CT of the Hip ordered > Asp PNA--on admission, now off Abs > CHF--2nd volume overload; CXR still shows bilat lower lobe congestion & effusions ~~~~~~~~~~~~~~~ Dr Jean......for Dr Hess
[2018-02-25] MEDS: ESCITALOPRAM OXALATE 10 MG TABLET (FP) PO SCH (22:34)
[2018-02-25] MEDS: TAMSULOSIN HCL 0.4 MG CAP.ER.24H (FP) PO SCH (22:35)
[2018-02-25] MEDS: ROSUVASTATIN CA 10 MG TABLET (FP) PO SCH (22:35)
[2018-02-26] MEDS: METOPROLOL TARTRATE 25 MG TABLET (FP) PO SCH ×3 (06:09→21:47)
[2018-02-26] MEDS: INSULIN (LEVEMIR) 100 UNITS/ML UNITS SQ SCH (06:34)
[2018-02-26] MEDS: INSULIN SLIDING SCALE (NOVOLOG) 1 VIAL SQ SCH ×4 (06:34→21:47)
[2018-02-26 07:10] LABS: HEMATOCRIT 33.2 % (35.4-49); HEMOGLOBIN 10.4 GM/dL (11.7-16.9); MCH 27.7 pg (25.7-33.7); MCHC 31.3 g/dl (32.0-35.9); MEAN CELL VOLUME 88.6 fl (80-96); MEAN PLT VOLUME 10.9 fl (7.5-11.1); PLATELET COUNT 143 K/MM3 (134-434); RBC 3.75 M/mm3 (4.00-5.60); RDW 23.5 % (11.9-15.9); WHITE BLOOD COUNT 7.3 K/mm3 (4.0-10.0)
[2018-02-26 08:20] LABS: CHLORIDE 96 mmol/L (98-107); POTASSIUM 5.3 mmol/L (3.5-5.1); SODIUM 135 mmol/L (136-145)
[2018-02-26 08:35] LABS: ANION GAP 11 MMOL/L (8-16); BLOOD UREA NITROGEN 60 mg/dL (7-18); CALCIUM 8.1 mg/dL (8.5-10.1); CO2 28 mmol/L (21-32); CREATININE 3.1 mg/dL (0.7-1.3); GLUCOSE,RANDOM 261 mg/dL (74-106)
[2018-02-26] MEDS ORDERED: PT OWN MED DRAWER 7, Y5N ONE ×2 (09:34→18:43)
[2018-02-26] MEDS: LACTOBACILLUS ACIDOPHILUS 1 TABLET PO SCH (09:45)
[2018-02-26] MEDS: PANTOPRAZOLE SOD 40 MG SUSPENSION PACKET PO SCH (09:45)
[2018-02-26] MEDS: CLOPIDOGREL BISULFATE 75 MG TABLET (FP) PO SCH (09:45)
[2018-02-26] MEDS: MIDODRINE HCL 5 MG TABLET PO SCH ×3 (09:46→19:23)
[2018-02-26] MEDS: POLYETHYLENE GLYCOL 3350 119 GM BTL PO SCH (09:50)
[2018-02-26] MEDS: ASPIRIN COATED 81 MG TABLET.EC PO SCH (09:50)
--- NOTE | 2018-02-26 10:08 | PN ---
Progress Note (short form) - Note Progress Note: Feels good No new complaints Has dry cough No hypos Apetite good Vital Signs Period Temp Pulse Resp BP Sys/Simons Pulse Ox Last 24 Hr 97.7 F-98.3 F 62-74 18-20 106-126/53-81 98 PE: awake, alert Neck: Supple HEENT: EOMI Lungs:CTA CVS: S1S2 Abd: Benign Ext: No edema CMP Sodium 135 mmol/L (136-145) L 02/26/18 05:30 Potassium 5.3 mmol/L (3.5-5.1) H 02/26/18 05:30 Chloride 96 mmol/L (98-107) L 02/26/18 05:30 Carbon Dioxide 28 mmol/L (21-32) 02/26/18 05:30 Anion Gap 11 MMOL/L (8-16) 02/26/18 05:30 BUN 60 mg/dL (7-18) H 02/26/18 05:30 Creatinine 3.1 mg/dL (0.7-1.3) H 02/26/18 05:30 Creat Clearance w eGFR 19.58 (>60) 02/26/18 05:30 POC Glucometer 271 UNITS (80-120) 02/26/18 05:57 Random Glucose 261 mg/dL (74-106) H D 02/26/18 05:30 Lactic Acid 1.5 mmol/L (0.0-2.0) 02/13/18 05:30 Calcium 8.1 mg/dL (8.5-10.1) L 02/26/18 05:30 Phosphorus 5.2 mg/dL (2.5-4.9) H 02/24/18 13:20 Magnesium 2.5 mg/dL (1.8-2.4) H 02/23/18 06:00 Total Bilirubin 0.7 mg/dL (0.2-1.0) 02/23/18 06:00 AST 27 U/L (15-37) D 02/23/18 06:00 ALT 210 U/L (12-78) H D 02/23/18 06:00 Alkaline Phosphatase 94 U/L (45-117) 02/23/18 06:00 Ammonia 22.7 umol/L (11-32) 08/24/18 05:30 Creatine Kinase 38 IU/L (39-308) L 02/17/18 05:30 Troponin I 0.06 ng/ml (0.00-0.05) H D 02/17/18 05:30 B-Natriuretic Peptide 77835.90 pg/ml (5-450) H 02/21/18 20:05 Total Protein 5.4 g/dl (6.4-8.2) L 02/23/18 06:00 Albumin 2.6 g/dl (3.4-5.0) L 02/23/18 06:00 Total Amylase 67 U/L (25-115) 02/12/18 23:40 Lipase 236 U/L (73-393) 02/12/18 23:40 TSH 6.01 uIU/ml (0.358-3.74) H D 02/17/18 05:30 Free T4 0.84 ng/dl (0.76-1.16) 02/21/18 20:05 Current Medications Generic Name Dose Route Start Last Admin Trade Name Freq PRN Reason Stop Dose Admin Albuterol/Ipratropium 1 amp 02/14/18 12:11 02/22/18 16:32 Duoneb - NEB 1 amp Q6H PRN Administration SHORTNESS OF BREATH Aspirin 81 mg 02/15/18 10:00 02/26/18 09:50 Ecotrin - PO 81 mg DAILY [facility] Administration Clopidogrel Bisulfate 75 mg 02/25/18 10:00 02/26/18 09:45 Plavix - PO 75 mg DAILY [facility] Administration Epoetin Fahad 10,000 unit 02/25/18 06:00 Procrit - IVPUSH 02/25/18 06:01 ONCE ONE Escitalopram Oxalate 5 mg 02/13/18 22:00 02/25/18 22:34 Lexapro - PO 5 mg HS [facility] Administration Guaifenesin 10 ml 02/17/18 13:13 02/22/18 10:27 Diabetic Tussin Dm - PO 10 ml Q6H PRN Administration COUGH Sodium Chloride 250 mls @ 3,000 mls/hr 02/24/18 15:37 Normal Saline - IV 02/25/18 15:37 PRN PRN Hypotension during Dialysis Insulin Aspart 1 vial 02/18/18 22:00 02/25/18 22:34 Novolog Vial Sliding Scale - SQ Not Given HS [facility] Protocol Insulin Aspart 1 vial 02/20/18 11:12 02/26/18 06:34 Novolog Vial Sliding Scale - SQ 10 units TIDAC [facility] Administration Protocol Insulin Detemir 25 units 02/25/18 09:46 02/26/18 06:34 Levemir Vial SQ 25 units ACBK [facility] Administration Lactobacillus Acidophilus 1 tab 02/19/18 10:00 02/26/18 09:45 Bacid - PO 1 tab DAILY [facility] Administration Metoprolol Tartrate 12.5 mg 02/24/18 14:15 02/26/18 06:09 Lopressor - PO 12.5 mg TID [facility] Administration Midodrine 5 mg 02/20/18 12:30 02/26/18 09:46 Proamatine - PO 5 mg TID-MID [facility] Administration Pantoprazole Sodium 40 mg 02/22/18 16:30 02/26/18 09:45 Protonix Packets For Oral Suspension - PO 40 mg DAILY [facility] Administration Polyethylene Glycol 17 gm 02/17/18 20:15 02/26/18 09:50 Miralax (For Daily Use) - PO Not Given DAILY [facility] Rosuvastatin Calcium 10 mg 02/21/18 22:00 02/25/18 22:35 Crestor - PO 10 mg HS [facility] Administration Tamsulosin HCl 0.4 mg 02/13/18 22:00 02/25/18 22:35 Flomax - PO 0.4 mg HS [facility] Administration Warfarin Sodium 4 mg 02/18/18 18:00 02/24/18 18:13 Coumadin - PO 4 mg DAILY@1800 [facility] Administration AP: T2DM with hyperlgycemia ESRD S/P Asystole of 4 sec CAD H/O CVA Possible Aspiration Pneumonia Blood sugar goal around 120 to 180 to avoid hypoglycemia.Blood sugar in the hospital has been stable with no demonstrated brittleness eventhough pt had frequent hypoglycemia at home especially at night. BGM QACHS and 3 AM Snack of half sandwich if FS <120 at bedtime or 3 AM. ContinueLevemir 25 units. Novolog ss coverage Rpt TSH as outpt. Will f/u Problem List - Problems (1) Chronic diastolic (congestive) heart failure Code(s): I50.32 - CHRONIC DIASTOLIC (CONGESTIVE) HEART FAILURE (2) Hip hematoma, left Code(s): S70.02XA - CONTUSION OF LEFT HIP, INITIAL ENCOUNTER Qualifiers: Encounter type: subsequent encounter Qualified Code(s): S70.02XD - Contusion of left hip, subsequent encounter (3) Hypotension Code(s): I95.9 - HYPOTENSION, UNSPECIFIED (4) ESRD (end stage renal disease) on dialysis Code(s): N18.6 - END STAGE RENAL DISEASE; Z99.2 - DEPENDENCE ON RENAL DIALYSIS
--- NOTE | 2018-02-26 12:17 | PN ---
Progress Note (short form) - Note Progress Note: Renal follow up for ESRD on HD Pt seen and examined at the bedside s/p UF yesterday, tolerated it well, BP and HR remained stable no acute complaints today, no cp, sob, abd pain for HD today Vital Signs Temperature 98.1 F 02/26/18 09:00 Pulse Rate 58 L 02/26/18 09:00 Respiratory Rate 18 02/26/18 09:00 Blood Pressure 114/56 02/26/18 09:00 O2 Sat by Pulse Oximetry (%) 98 02/25/18 21:00 Intake & Output 02/23/18 02/24/18 02/25/18 02/26/18 23:59 23:59 23:59 23:59 Intake Total 930 480 Balance 930 480 Weight 73.301 kg 72.756 kg NAD RRR, No M/R Dec BS at the lung bases, no rales soft NT/ND Left hip hematoma + sacral edema CBC, BMP 02/26/18 05:30 02/26/18 05:30 Current Medications Albuterol/Ipratropium (Duoneb -) 1 amp NEB Q6H PRN PRN Reason: SHORTNESS OF BREATH Last Admin: 02/22/18 16:32 Dose: 1 amp Aspirin (Ecotrin -) 81 mg PO DAILY [facility] Last Admin: 02/26/18 09:50 Dose: 81 mg Clopidogrel Bisulfate (Plavix -) 75 mg PO DAILY [facility] Last Admin: 02/26/18 09:45 Dose: 75 mg Epoetin Fahad (Procrit -) 10,000 unit IVPUSH ONCE ONE Stop: 02/25/18 06:01 Epoetin Fahad (Epogen -) 10,000 unit IVPUSH ONCE ONE Stop: 02/26/18 11:07 Escitalopram Oxalate (Lexapro -) 5 mg PO HS [facility] Last Admin: 02/25/18 22:34 Dose: 5 mg Guaifenesin (Diabetic Tussin Dm -) 10 ml PO Q6H PRN PRN Reason: COUGH Last Admin: 02/22/18 10:27 Dose: 10 ml Sodium Chloride (Normal Saline -) 250 mls @ 3,000 mls/hr IV PRN PRN PRN Reason: Hypotension during Dialysis Stop: 02/25/18 15:37 Sodium Chloride (Normal Saline -) 250 mls @ 3,000 mls/hr IV PRN PRN PRN Reason: Hypotension during Dialysis Stop: 02/27/18 11:06 Insulin Aspart (Novolog Vial Sliding Scale -) 1 vial SQ HS [facility]; Protocol Last Admin: 02/25/18 22:34 Dose: Not Given Insulin Aspart (Novolog Vial Sliding Scale -) 1 vial SQ TIDAC [facility]; Protocol Last Admin: 02/26/18 06:34 Dose: 10 units Insulin Detemir (Levemir Vial) 25 units SQ ACBK [facility] Last Admin: 02/26/18 06:34 Dose: 25 units Lactobacillus Acidophilus (Bacid -) 1 tab PO DAILY [facility] Last Admin: 02/26/18 09:45 Dose: 1 tab Metoprolol Tartrate (Lopressor -) 12.5 mg PO TID [facility] Last Admin: 02/26/18 06:09 Dose: 12.5 mg Midodrine (Proamatine -) 5 mg PO TID-MID [facility] Last Admin: 02/26/18 09:46 Dose: 5 mg Pantoprazole Sodium (Protonix Packets For Oral Suspension -) 40 mg PO DAILY [facility] Last Admin: 02/26/18 09:45 Dose: 40 mg Polyethylene Glycol (Miralax (For Daily Use) -) 17 gm PO DAILY [facility] Last Admin: 02/26/18 09:50 Dose: Not Given Rosuvastatin Calcium (Crestor -) 10 mg PO HS [facility] Last Admin: 02/25/18 22:35 Dose: 10 mg Tamsulosin HCl (Flomax -) 0.4 mg PO [facility] Last Admin: 02/25/18 22:35 Dose: 0.4 mg Warfarin Sodium (Coumadin -) 4 mg PO DAILY@1800 [facility] Last Admin: 02/24/18 18:13 Dose: 4 mg 77 year old gentleman with Hx of ESRD on HD (started this year), CAD s/p PCI, Hypertension, Hyperlipidemia, CHF, Left Ventricular Thrombus on Coumadin who presented from home with weakness and hypotension. #Weakness/Hypotension #CHF/Volume overload #ESRD on HD with Hyperkalemia #Ventricular Thrombus #Anemia #Hip Hematoma w/o fracture s/p UF yesterday, HD today weights w/o signifincat improvement, pt denies drinking much water will trend weights after HD today continue low salt diet, 1.2L fluid restriction BP and HR stable, hopefully representing improved cardiac output CT of Pelvis showed no fracture of the hip pain control PT as tolerated a/c with warfarin Florencio Del Cid DO
--- NOTE | 2018-02-26 12:28 | PN ---
Progress Note, Physician History of Present Illness: PULMONARY ALERT,OOB-CHAIR,COMFORTABLE,-DYSPNEA,-CP - Current Medication List Current Medications: Active Medications Albuterol/Ipratropium (Duoneb -) 1 amp NEB Q6H PRN PRN Reason: SHORTNESS OF BREATH Last Admin: 02/22/18 16:32 Dose: 1 amp Aspirin (Ecotrin -) 81 mg PO DAILY [facility] Last Admin: 02/26/18 09:50 Dose: 81 mg Clopidogrel Bisulfate (Plavix -) 75 mg PO DAILY [facility] Last Admin: 02/26/18 09:45 Dose: 75 mg Epoetin Fahad (Procrit -) 10,000 unit IVPUSH ONCE ONE Stop: 02/25/18 06:01 Epoetin Fahad (Epogen -) 10,000 unit IVPUSH ONCE ONE Stop: 02/26/18 11:07 Escitalopram Oxalate (Lexapro -) 5 mg PO HS [facility] Last Admin: 02/25/18 22:34 Dose: 5 mg Guaifenesin (Diabetic Tussin Dm -) 10 ml PO Q6H PRN PRN Reason: COUGH Last Admin: 02/22/18 10:27 Dose: 10 ml Sodium Chloride (Normal Saline -) 250 mls @ 3,000 mls/hr IV PRN PRN PRN Reason: Hypotension during Dialysis Stop: 02/25/18 15:37 Sodium Chloride (Normal Saline -) 250 mls @ 3,000 mls/hr IV PRN PRN PRN Reason: Hypotension during Dialysis Stop: 02/27/18 11:06 Insulin Aspart (Novolog Vial Sliding Scale -) 1 vial SQ HS [facility]; Protocol Last Admin: 02/25/18 22:34 Dose: Not Given Insulin Aspart (Novolog Vial Sliding Scale -) 1 vial SQ TIDAC [facility]; Protocol Last Admin: 02/26/18 06:34 Dose: 10 units Insulin Detemir (Levemir Vial) 25 units SQ ACBK [facility] Last Admin: 02/26/18 06:34 Dose: 25 units Lactobacillus Acidophilus (Bacid -) 1 tab PO DAILY [facility] Last Admin: 02/26/18 09:45 Dose: 1 tab Metoprolol Tartrate (Lopressor -) 12.5 mg PO TID [facility] Last Admin: 02/26/18 06:09 Dose: 12.5 mg Midodrine (Proamatine -) 5 mg PO TID-MID [facility] Last Admin: 02/26/18 09:46 Dose: 5 mg Pantoprazole Sodium (Protonix Packets For Oral Suspension -) 40 mg PO DAILY [facility] Last Admin: 02/26/18 09:45 Dose: 40 mg Polyethylene Glycol (Miralax (For Daily Use) -) 17 gm PO DAILY [facility] Last Admin: 02/26/18 09:50 Dose: Not Given Rosuvastatin Calcium (Crestor -) [address] [facility] Last Admin: 02/25/18 22:35 Dose: 10 mg Tamsulosin HCl (Flomax -) 0.[address] [facility] Last Admin: 02/25/18 22:35 Dose: 0.4 mg Warfarin Sodium (Coumadin -) 4 mg PO DAILY@1800 [facility] Last Admin: 02/24/18 18:13 Dose: 4 mg - Objective Vital Signs: Vital Signs Temperature 98.1 F 02/26/18 09:00 Pulse Rate 58 L 02/26/18 09:00 Respiratory Rate 18 02/26/18 09:00 Blood Pressure 114/56 02/26/18 09:00 O2 Sat by Pulse Oximetry (%) 98 02/25/18 21:00 Constitutional: Yes: Well Nourished, Calm Eyes: Yes: WNL HENT: Yes: WNL Neck: Yes: WNL Cardiovascular: Yes: Pulse Irregular, S1, S2 Respiratory: Yes: Rales (FEW BIBASILAR CRACKLES) Gastrointestinal: Yes: Normal Bowel Sounds, Soft Extremities: Yes: WNL Edema: No Labs: CBC, BMP 02/26/18 05:30 02/26/18 05:30 INR, PTT INR 3.28 (0.83-1.09) H 02/25/18 05:30 - ....Imaging Cat Scan: Report Reviewed (LEFT UPPER THIGH HEMATOMA) Problem List - Problems (1) CAD (coronary artery disease) Code(s): I25.10 - ATHSCL HEART DISEASE OF [place] CORONARY ARTERY W/O ANG PCTRS (2) Chronic diastolic (congestive) heart failure Code(s): I50.32 - CHRONIC DIASTOLIC (CONGESTIVE) HEART FAILURE (3) ESRD (end stage renal disease) on dialysis Code(s): N18.6 - END STAGE RENAL DISEASE; Z99.2 - DEPENDENCE ON RENAL DIALYSIS (4) Hypothyroid Code(s): E03.9 - HYPOTHYROIDISM, UNSPECIFIED (5) Acute on chronic systolic CHF (congestive heart failure) Code(s): I50.23 - ACUTE ON CHRONIC SYSTOLIC (CONGESTIVE) HEART FAILURE (6) Anemia Code(s): D64.9 - ANEMIA, UNSPECIFIED Qualifiers: Chronic kidney disease stage: on chronic dialysis Qualified Code(s): N18.6 - End stage renal disease; D63.1 - Anemia in chronic kidney disease; Z99.2 - Dependence on renal dialysis (7) CVA (cerebral infarction) Code(s): I63.9 - CEREBRAL INFARCTION, UNSPECIFIED Qualifiers: Cerebral infarction mechanism: unspecified mechanism Qualified Code(s): I63.9 - Cerebral infarction, unspecified (8) ESRD (end stage renal disease) on dialysis Code(s): N18.6 - END STAGE RENAL DISEASE; Z99.2 - DEPENDENCE ON RENAL DIALYSIS (9) Hx of heart artery stent Code(s): Z95.5 - PRESENCE OF CORONARY ANGIOPLASTY IMPLANT AND GRAFT (10) LV (left ventricular) mural thrombus Code(s): [id number] - (11) Syncope Code(s): R55 - SYNCOPE AND COLLAPSE Assessment/Plan ASSESSMENT AND PLAN: Syncope Sinus Pause Paroxysmal Atrial Fibrillation with RVR now in sinus rhythm CAD LV Diastolic Dysfunction HTN Hyperlipidemia DM LV thrombus h/o CVA ESRD on HD L upper thigh hematoma - rate control with metoprolol - anticoagulation with target INR 2-3 - HD per renal with UF as tolerated - cough suppressants - glucose control - O2 to keep Spo2 >90% - consider vascular consult DR CARCAMO
--- NOTE | 2018-02-26 12:30 | PN ---
Progress Note, Physician Chief Complaint: Pt alert;; OOB in cfhair; no complaints. History of Present Illness: Patient is a 77 year old male (linnea Kingsley), with PMHx of CVA, CAD (OK--> 5 coronary stents at [facility] 08/17, with subsequent renal failure and ventricular thrombus; currently on ASA, clopidogrel, and warfarin), ESRD ( hemodialysis since 11/2017), diastolic CHF, HTN, HLD, s/p GI Bleed, Anxiety, Diabetes Mellitus, who presents with generalized weakness and low blood pressure. The patients (Dr. Davila) states that this afternoon he vomited and noted that his blood pressure was relatively low and he was feeling weak. She brought him to [facility] where he has history. He receives dialysis every Friday, , and Friday, but did not go today. Earlier in the day, prior to planned hemodialysis, he underwent renal angioplasty by the vascular surgeon (Dr. Huff) and was NPO. Surgical Hx: December 05 2017 - Renal angioplasty. 02/12/18 : Left AVFistula with stenosis. [place] (Jul, 2017) with multiple stent placements simultaenously. PCP: Coleman Hess - Current Medication List Current Medications: Active Medications Albuterol/Ipratropium (Duoneb -) 1 amp NEB Q6H PRN PRN Reason: SHORTNESS OF BREATH Last Admin: 02/22/18 16:32 Dose: 1 amp Aspirin (Ecotrin -) 81 mg PO DAILY [facility] Last Admin: 02/26/18 09:50 Dose: 81 mg Clopidogrel Bisulfate (Plavix -) 75 mg PO DAILY [facility] Last Admin: 02/26/18 09:45 Dose: 75 mg Epoetin Fahad (Procrit -) 10,000 unit IVPUSH ONCE ONE Stop: 02/25/18 06:01 Epoetin Fahad (Epogen -) 10,000 unit IVPUSH ONCE ONE Stop: 02/26/18 11:07 Escitalopram Oxalate (Lexapro -) 5 mg PO HS [facility] Last Admin: 02/25/18 22:34 Dose: 5 mg Guaifenesin (Diabetic Tussin Dm -) 10 ml PO Q6H PRN PRN Reason: COUGH Last Admin: 02/22/18 10:27 Dose: 10 ml Sodium Chloride (Normal Saline -) 250 mls @ 3,000 mls/hr IV PRN PRN PRN Reason: Hypotension during Dialysis Stop: 02/25/18 15:37 Sodium Chloride (Normal Saline -) 250 mls @ 3,000 mls/hr IV PRN PRN PRN Reason: Hypotension during Dialysis Stop: 02/27/18 11:06 Insulin Aspart (Novolog Vial Sliding Scale -) 1 vial SQ HS [facility]; Protocol Last Admin: 02/25/18 22:34 Dose: Not Given Insulin Aspart (Novolog Vial Sliding Scale -) 1 vial SQ TIDAC [facility]; Protocol Last Admin: 02/26/18 06:34 Dose: 10 units Insulin Detemir (Levemir Vial) 25 units SQ ACBK [facility] Last Admin: 02/26/18 06:34 Dose: 25 units Lactobacillus Acidophilus (Bacid -) 1 tab PO DAILY [facility] Last Admin: 02/26/18 09:45 Dose: 1 tab Metoprolol Tartrate (Lopressor -) 12.5 mg PO TID [facility] Last Admin: 02/26/18 06:09 Dose: 12.5 mg Midodrine (Proamatine -) 5 mg PO TID-MID [facility] Last Admin: 02/26/18 09:46 Dose: 5 mg Pantoprazole Sodium (Protonix Packets For Oral Suspension -) 40 mg PO DAILY [facility] Last Admin: 02/26/18 09:45 Dose: 40 mg Polyethylene Glycol (Miralax (For Daily Use) -) 17 gm PO DAILY [facility] Last Admin: 02/26/18 09:50 Dose: Not Given Rosuvastatin Calcium (Crestor -) 10 mg PO HS [facility] Last Admin: 02/25/18 22:35 Dose: 10 mg Tamsulosin HCl (Flomax -) 0.4 mg PO HS [facility] Last Admin: 02/25/18 22:35 Dose: 0.4 mg Warfarin Sodium (Coumadin -) 4 mg PO DAILY@1800 [facility] Last Admin: 02/24/18 18:13 Dose: 4 mg - Objective Vital Signs: Vital Signs Temperature 98.1 F 02/26/18 09:00 Pulse Rate 58 L 02/26/18 09:00 Respiratory Rate 18 02/26/18 09:00 Blood Pressure 114/56 02/26/18 09:00 O2 Sat by Pulse Oximetry (%) 98 02/25/18 21:00 Labs: CBC, BMP 02/26/18 05:30 02/26/18 05:30 INR, PTT INR 3.28 (0.83-1.09) H 02/25/18 05:30 Problem List - Problems (1) AV fistula Assessment/Plan: left AV fistula. Still using right Permacath for hemodialysis. Code(s): I77.0 - ARTERIOVENOUS FISTULA, ACQUIRED (2) Anxiety and depression Assessment/Plan: on Lexapro. Code(s): F41.8 - OTHER SPECIFIED ANXIETY DISORDERS (3) BPH (benign prostatic hypertrophy) Code(s): N40.0 - BENIGN PROSTATIC HYPERPLASIA WITHOUT LOWER URINRY TRACT SYMP (4) CVA (cerebral infarction) Assessment/Plan: Od laconar infarcts in right occipital, periventricular sites; infarct left cerebelloum on 11/14 CT. On ASA and clopidogrel for recent OK-->several DE stents, and wafarin (LV thrombu; PAF). High-dose statin to keep LDL as low as possible. Physical rehabilitation. Code(s): I63.9 - CEREBRAL INFARCTION, UNSPECIFIED Qualifiers: Cerebral infarction mechanism: unspecified mechanism Qualified Code(s): I63.9 - Cerebral infarction, unspecified (5) Fall Code(s): W19.XXXA - UNSPECIFIED FALL, INITIAL ENCOUNTER Qualifiers: Encounter type: initial encounter Qualified Code(s): W19.XXXA - Unspecified fall, initial encounter (6) Hx of heart artery stent Assessment/Plan: Hx OK-->multiple stents. On ASA and clopidogrel (as well as warfarin for ventricular thrombus and atrial flutter). Will restart clopidogrel; f/u platelet (increased today to 143). Code(s): Z95.5 - PRESENCE OF CORONARY ANGIOPLASTY IMPLANT AND GRAFT (7) Hyperlipidemia Assessment/Plan: statin; keep LDL well below 70 mg/dL. Code(s): E78.5 - HYPERLIPIDEMIA, UNSPECIFIED Qualifiers: Hyperlipidemia type: pure hypercholesterolemia Qualified Code(s): E78.00 - Pure hypercholesterolemia, unspecified; E78.0 - Pure hypercholesterolemia (8) LV (left ventricular) mural thrombus Assessment/Plan: Once again on warfarin; IV heparin until INR 2-3 (2.57 today) Code(s): [id number] - (9) Hypotension Assessment/Plan: See under "atrial flutter". Code(s): I95.9 - HYPOTENSION, UNSPECIFIED (10) Chronic diastolic (congestive) heart failure Assessment/Plan: ECHO this admission: preserved LVEF, with regional wall abnormalities (apical, inferior); borderline dilated LV; cannot exclude LV apical thrombus. On metoprolol (dose increased today); hydralazine held until low BP has improved. On warfarin. Tolerating hemodialysis well. Removal of fluid contributing to improved cardiac output. Code(s): I50.32 - CHRONIC DIASTOLIC (CONGESTIVE) HEART FAILURE (11) Atrial flutter Assessment/Plan: He has been tolerated hemodialysis lately without development of AFlutter with 2 :1 block; follow today's response to hemodialysis. Now in NSR; periods of mraked bradycardi metoprolol tartrate 12.5 mg q 8h. Code(s): I48.92 - UNSPECIFIED ATRIAL FLUTTER (12) Elevated LFTs Assessment/Plan: improving values; ALT remains elevated. Code(s): R94.5 - ABNORMAL RESULTS OF LIVER FUNCTION STUDIES (13) Hip hematoma, left Code(s): S70.02XA - CONTUSION OF LEFT HIP, INITIAL ENCOUNTER Qualifiers: Encounter type: subsequent encounter Qualified Code(s): S70.02XD - Contusion of left hip, subsequent encounter
[2018-02-26 12:53] VITALS: BMI 25.8
[2018-02-26] MEDS ORDERED: SODIUM CHLORIDE 250 ML IV PRN (13:40)
[2018-02-26] MEDS ORDERED: EPOETIN ALFA 10,000 UNIT/1 ML VIAL IVPUSH ONE (13:45)
--- NOTE | 2018-02-26 18:04 | PN ---
Progress Note (short form) - Note Progress Note: .............. medical cover note for Dr Hess ....................... Current Medications Albuterol/Ipratropium (Duoneb -) 1 amp NEB Q6H PRN PRN Reason: SHORTNESS OF BREATH Last Admin: 02/22/18 16:32 Dose: 1 amp Aspirin (Ecotrin -) 81 mg PO DAILY [facility] Last Admin: 02/26/18 09:50 Dose: 81 mg Clopidogrel Bisulfate (Plavix -) 75 mg PO DAILY [facility] Last Admin: 02/26/18 09:45 Dose: 75 mg Escitalopram Oxalate (Lexapro -) 5 mg PO HS [facility] Last Admin: 02/25/18 22:34 Dose: 5 mg Guaifenesin (Diabetic Tussin Dm -) 10 ml PO Q6H PRN PRN Reason: COUGH Last Admin: 02/22/18 10:27 Dose: 10 ml Sodium Chloride (Normal Saline -) 250 mls @ 3,000 mls/hr IV PRN PRN PRN Reason: Hypotension during Dialysis Stop: 02/27/18 13:39 Insulin Aspart (Novolog Vial Sliding Scale -) 1 vial SQ HS [facility]; Protocol Last Admin: 02/25/18 22:34 Dose: Not Given Insulin Aspart (Novolog Vial Sliding Scale -) 1 vial SQ TIDAC [facility]; Protocol Last Admin: 02/26/18 13:21 Dose: 4 units Insulin Detemir (Levemir Vial) 25 units SQ ACBK [facility] Last Admin: 02/26/18 06:34 Dose: 25 units Lactobacillus Acidophilus (Bacid -) 1 tab PO DAILY [facility] Last Admin: 02/26/18 09:45 Dose: 1 tab Metoprolol Tartrate (Lopressor -) 12.5 mg PO TID [facility] Last Admin: 02/26/18 13:22 Dose: 12.5 mg Midodrine (Proamatine -) 5 mg PO TID-MID [facility] Last Admin: 02/26/18 13:22 Dose: 5 mg Pantoprazole Sodium (Protonix Packets For Oral Suspension -) 40 mg PO DAILY [facility] Last Admin: 02/26/18 09:45 Dose: 40 mg Polyethylene Glycol (Miralax (For Daily Use) -) 17 gm PO DAILY [facility] Last Admin: 02/26/18 09:50 Dose: Not Given Rosuvastatin Calcium (Crestor -) 10 mg PO [facility] Last Admin: 02/25/18 22:35 Dose: 10 mg Tamsulosin HCl (Flomax -) 0.4 mg PO [facility] Last Admin: 02/25/18 22:35 Dose: 0.4 mg Warfarin Sodium (Coumadin -) 4 mg PO DAILY@1800 [facility] Last Admin: 02/24/18 18:13 Dose: 4 mg Laboratory Results - last 24 hr 02/25/18 02/25/18 02/26/18 18:01 22:23 02:46 WBC RBC Hgb Hct MCV MCH MCHC RDW Plt Count MPV Sodium Potassium Chloride Carbon Dioxide Anion Gap BUN Creatinine Creat Clearance w eGFR POC Glucometer 369 194 233 Random Glucose Calcium 02/26/18 02/26/18 02/26/18 05:30 05:30 05:57 WBC 7.3 RBC 3.75 L Hgb 10.4 L Hct 33.2 L MCV 88.6 MCH 27.7 MCHC 31.3 L RDW 23.5 H Plt Count 143 MPV 10.9 Sodium 135 L Potassium 5.3 H Chloride 96 L Carbon Dioxide 28 Anion Gap 11 BUN 60 H Creatinine 3.1 H Creat Clearance w eGFR 19.58 POC Glucometer 271 Random Glucose 261 H D Calcium 8.1 L 02/26/18 02/26/18 12:27 17:29 WBC RBC Hgb Hct MCV MCH MCHC RDW Plt Count MPV Sodium Potassium Chloride Carbon Dioxide Anion Gap BUN Creatinine Creat Clearance w eGFR POC Glucometer 179 199 Random Glucose Calcium Vital Signs Period Temp Pulse Resp BP Sys/Simons Pulse Ox Last 24 Hr 97.7 F-98.3 F 58-81 18-20 114-134/56-78 97-98 CC; None; on HD via PC ````````````````` skin--ecchymosis L thigh, indurated eyes--non injected; eomi lungs--diminished breaths bilat lungs heart--RR abd--soft chest--with RU side PC ext--LUE trill palpated neuro--drowsy but rousable; verbal; able to move on command; but listless for most part ``````````````````````````````````````````````` Summ > SVT--seems to under control now, no runs of SVT; longest pause shown by Nurse on monitor was 1.9 seconds > Hypotension--has been better with Midodrine, and now able to have dialysis. > ESRD--on HD (see renal note) > anemia--H/h stable, will check in AM > high Transaminases--3/4 enzymes in NL range; likely due to passive hepatic congestion > CAD-- post angioplasty, ventricular thrombus, on Plavix, asa, warf on hold due to high INR > DM--Glucose fluctating, but is prone to hypoglycemic state; see endocrine note > Hematoma left thigh and hip --due to a fall, no Fx on Xray; CT of the Hip shows no Fx but has extensive hematoma > Asp PNA--on admission, now off Abs > CHF--2nd volume overload; CXR still shows bilat lower lobe congestion & effusions; will check in AM ~~~~~~~~~~~~~~~ Dr Jean......for Dr Hess
[2018-02-26 18:46] LABS: INR 2.57 (0.83-1.09)
[2018-02-26] MEDS: WARFARIN NA 2 MG TABLET (UD) PO SCH (19:22)
[2018-02-26] MEDS: ESCITALOPRAM OXALATE 10 MG TABLET (FP) PO SCH (21:45)
[2018-02-26] MEDS: ROSUVASTATIN CA 10 MG TABLET (FP) PO SCH (21:46)
[2018-02-26] MEDS: TAMSULOSIN HCL 0.4 MG CAP.ER.24H (FP) PO SCH (21:46)
[2018-02-27] MEDS: METOPROLOL TARTRATE 25 MG TABLET (FP) PO SCH ×3 (05:28→21:31)
[2018-02-27] MEDS: INSULIN SLIDING SCALE (NOVOLOG) 1 VIAL SQ SCH ×4 (06:15→21:32)
[2018-02-27] MEDS: INSULIN (LEVEMIR) 100 UNITS/ML UNITS SQ SCH (06:46)
[2018-02-27 07:00] LABS: BASO % 0.7 % (0-2.0); EOS % 2.1 % (0-4.5); HEMATOCRIT 35.3 % (35.4-49); HEMOGLOBIN 11.1 GM/dL (11.7-16.9); LYMPH % 13.1 % (8-40); MCH 27.9 pg (25.7-33.7); MCHC 31.3 g/dl (32.0-35.9); MEAN CELL VOLUME 89.2 fl (80-96); MEAN PLT VOLUME 10.5 fl (7.5-11.1); NEUT % 75.1 % (42.8-82.8); PLATELET COUNT 161 K/MM3 (134-434); RBC 3.96 M/mm3 (4.00-5.60); RDW 21.6 % (11.9-15.9); WHITE BLOOD COUNT 7.1 K/mm3 (4.0-10.0)
[2018-02-27 07:02] LABS: INR 2.28 (0.83-1.09); PROTHROMBIN TIME (PATIENT) 25.8 SEC (9.7-13.0)
[2018-02-27 07:30] LABS: CHLORIDE 101 mmol/L (98-107); POTASSIUM 4.4 mmol/L (3.5-5.1); SODIUM 142 mmol/L (136-145)
[2018-02-27 07:35] LABS: ANION GAP 8 MMOL/L (8-16); BLOOD UREA NITROGEN 31 mg/dL (7-18); CALCIUM 8.2 mg/dL (8.5-10.1); CO2 33 mmol/L (21-32); CREATININE 1.8 mg/dL (0.7-1.3); GLUCOSE,RANDOM 127 mg/dL (74-106); PHOSPHOROUS 3.1 mg/dL (2.5-4.9)
[2018-02-27] MEDS: ASPIRIN COATED 81 MG TABLET.EC PO SCH (09:26)
[2018-02-27] MEDS: LACTOBACILLUS ACIDOPHILUS 1 TABLET PO SCH (09:26)
[2018-02-27] MEDS: MIDODRINE HCL 5 MG TABLET PO SCH ×3 (09:26→17:09)
[2018-02-27] MEDS: PANTOPRAZOLE SOD 40 MG SUSPENSION PACKET PO SCH (09:26)
[2018-02-27] MEDS: CLOPIDOGREL BISULFATE 75 MG TABLET (FP) PO SCH (09:26)
[2018-02-27] MEDS: POLYETHYLENE GLYCOL 3350 119 GM BTL PO SCH (09:26)
--- NOTE | 2018-02-27 10:05 | PN ---
Progress Note (short form) - Note Progress Note: Feels good No new complaints Has dry cough No hypos Apetite good Blood sugar stable for last 24 hrs Vital Signs Period Temp Pulse Resp BP Sys/Simons Pulse Ox Last 24 Hr 98 F-98.3 F 56-96 18-18 107-134/60-78 99 PE: awake, alert Neck: Supple HEENT: EOMI Lungs:CTA CVS: S1S2 Abd: Benign Ext: No edema CMP Sodium 142 mmol/L (136-145) 02/27/18 05:35 Potassium 4.4 mmol/L (3.5-5.1) 02/27/18 05:35 Chloride 101 mmol/L (98-107) 02/27/18 05:35 Carbon Dioxide 33 mmol/L (21-32) H 02/27/18 05:35 Anion Gap 8 MMOL/L (8-16) 02/27/18 05:35 BUN 31 mg/dL (7-18) H D 02/27/18 05:35 Creatinine 1.8 mg/dL (0.7-1.3) H 02/27/18 05:35 Creat Clearance w eGFR 36.67 (>60) 02/27/18 05:35 POC Glucometer 143 UNITS (80-120) 02/27/18 05:20 Random Glucose 127 mg/dL (74-106) H D 02/27/18 05:35 Lactic Acid 1.5 mmol/L (0.0-2.0) 02/13/18 05:30 Calcium 8.2 mg/dL (8.5-10.1) L 02/27/18 05:35 Phosphorus 3.1 mg/dL (2.5-4.9) D 02/27/18 05:35 Magnesium 2.5 mg/dL (1.8-2.4) H 02/23/18 06:00 Total Bilirubin 0.7 mg/dL (0.2-1.0) 02/23/18 06:00 AST 27 U/L (15-37) D 02/23/18 06:00 ALT 210 U/L (12-78) H D 02/23/18 06:00 Alkaline Phosphatase 94 U/L (45-117) 02/23/18 06:00 Ammonia 22.7 umol/L (11-32) 02/20/18 05:30 Creatine Kinase 38 IU/L (39-308) L 02/17/18 05:30 Troponin I 0.06 ng/ml (0.00-0.05) H D 02/17/18 05:30 B-Natriuretic Peptide 74888.90 pg/ml (5-450) H 02/21/18 20:05 Total Protein 5.4 g/dl (6.4-8.2) L 02/23/18 06:00 Albumin 2.6 g/dl (3.4-5.0) L 02/23/18 06:00 Total Amylase 67 U/L (25-115) 02/12/18 23:40 Lipase 236 U/L (73-393) 02/12/18 23:40 TSH 6.01 uIU/ml (0.358-3.74) H D 02/17/18 05:30 Free T4 0.84 ng/dl (0.76-1.16) 02/21/18 20:05 Current Medications Generic Name Dose Route Start Last Admin Trade Name Freq PRN Reason Stop Dose Admin Albuterol/Ipratropium 1 amp 02/14/18 12:11 02/22/18 16:32 Duoneb - NEB 1 amp Q6H PRN Administration SHORTNESS OF BREATH Aspirin 81 mg 02/15/18 10:00 02/27/18 09:26 Ecotrin - PO 81 mg DAILY [facility] Administration Clopidogrel Bisulfate 75 mg 02/25/18 10:00 02/27/18 09:26 Plavix - PO 75 mg DAILY [facility] Administration Escitalopram Oxalate 5 mg 02/13/18 22:00 02/26/18 21:45 Lexapro - PO 5 mg HS [facility] Administration Guaifenesin 10 ml 02/17/18 13:13 02/22/18 10:27 Diabetic Tussin Dm - PO 10 ml Q6H PRN Administration COUGH Sodium Chloride 250 mls @ 3,000 mls/hr 02/26/18 13:40 Normal Saline - IV 02/27/18 13:39 PRN PRN Hypotension during Dialysis Insulin Aspart 1 vial 02/18/18 22:00 02/26/18 21:47 Novolog Vial Sliding Scale - SQ Not Given HS [facility] Protocol Insulin Aspart 1 vial 02/20/18 11:12 02/27/18 06:15 Novolog Vial Sliding Scale - SQ Not Given TIDAC [facility] Protocol Insulin Detemir 25 units 02/25/18 09:46 02/27/18 06:46 Levemir Vial SQ 25 units ACBK [facility] Administration Lactobacillus Acidophilus 1 tab 02/19/18 10:00 02/27/18 09:26 Bacid - PO 1 tab DAILY [facility] Administration Metoprolol Tartrate 12.5 mg 02/24/18 14:15 02/27/18 05:28 Lopressor - PO Not Given TID [facility] Midodrine 5 mg 02/20/18 12:30 02/27/18 09:26 Proamatine - PO 5 mg TID-MID [facility] Administration Pantoprazole Sodium 40 mg 02/22/18 16:30 02/27/18 09:26 Protonix Packets For Oral Suspension - PO 40 mg DAILY [facility] Administration Polyethylene Glycol 17 gm 02/17/18 20:15 02/27/18 09:26 Miralax (For Daily Use) - PO Not Given DAILY [facility] Rosuvastatin Calcium 10 mg 02/21/18 22:00 02/26/18 21:46 Crestor - PO 10 mg HS [facility] Administration Tamsulosin HCl 0.4 mg 02/13/18 22:00 02/26/18 21:46 Flomax - PO 0.4 mg HS [facility] Administration Warfarin Sodium 4 mg 02/18/18 18:00 02/26/18 19:22 Coumadin - PO 4 mg DAILY@1800 [facility] Administration AP: T2DM with hyperlgycemia: Stable now ESRD S/P Asystole of 4 sec CAD H/O CVA Possible Aspiration Pneumonia Left thigh hematoma: CT report noted Blood sugar goal around 120 to 180 to avoid hypoglycemia.Blood sugar in the hospital has been stable with no demonstrated brittleness eventhough pt had frequent hypoglycemia at home especially at night. BGM QACHS and 3 AM Snack of half sandwich if FS <120 at bedtime or 3 AM. ContinueLevemir 25 units. Novolog ss coverage Rpt TSH as outpt. Will f/u Problem List - Problems (1) Chronic diastolic (congestive) heart failure Code(s): I50.32 - CHRONIC DIASTOLIC (CONGESTIVE) HEART FAILURE (2) Hip hematoma, left Code(s): S70.02XA - CONTUSION OF LEFT HIP, INITIAL ENCOUNTER Qualifiers: Encounter type: subsequent encounter Qualified Code(s): S70.02XD - Contusion of left hip, subsequent encounter (3) Hypotension Code(s): I95.9 - HYPOTENSION, UNSPECIFIED (4) ESRD (end stage renal disease) on dialysis Code(s): N18.6 - END STAGE RENAL DISEASE; Z99.2 - DEPENDENCE ON RENAL DIALYSIS
--- NOTE | 2018-02-27 10:58 | PN ---
Progress Note, Physician History of Present Illness: Patient is a 77 year old male (linnea Kingsley), with PMHx of CVA, CAD (ID--> 5 coronary stents at [facility] 08/17, with subsequent renal failure and ventricular thrombus; currently on ASA, clopidogrel, and warfarin), ESRD ( hemodialysis since 11/2017), diastolic CHF, HTN, HLD, s/p GI Bleed, Anxiety, Diabetes Mellitus, who presents with generalized weakness and low blood pressure. The patients (Dr. Davila) states that this afternoon he vomited and noted that his blood pressure was relatively low and he was feeling weak. She brought him to [facility] ER where he has history. He receives dialysis every Friday, , and Friday, but did not go today. Earlier in the day, prior to planned hemodialysis, he underwent renal angioplasty by the vascular surgeon (Dr. Huff) and was NPO. - Current Medication List Current Medications: Active Medications Albuterol/Ipratropium (Duoneb -) 1 amp NEB Q6H PRN PRN Reason: SHORTNESS OF BREATH Last Admin: 02/22/18 16:32 Dose: 1 amp Aspirin (Ecotrin -) 81 mg PO DAILY [facility] Last Admin: 02/27/18 09:26 Dose: 81 mg Clopidogrel Bisulfate (Plavix -) 75 mg PO DAILY [facility] Last Admin: 02/27/18 09:26 Dose: 75 mg Escitalopram Oxalate (Lexapro -) 5 mg PO HS [facility] Last Admin: 02/26/18 21:45 Dose: 5 mg Guaifenesin (Diabetic Tussin Dm -) 10 ml PO Q6H PRN PRN Reason: COUGH Last Admin: 02/22/18 10:27 Dose: 10 ml Sodium Chloride (Normal Saline -) 250 mls @ 3,000 mls/hr IV PRN PRN PRN Reason: Hypotension during Dialysis Stop: 02/27/18 13:39 Insulin Aspart (Novolog Vial Sliding Scale -) 1 vial SQ HS [facility]; Protocol Last Admin: 02/26/18 21:47 Dose: Not Given Insulin Aspart (Novolog Vial Sliding Scale -) 1 vial SQ TIDAC [facility]; Protocol Last Admin: 02/27/18 06:15 Dose: Not Given Insulin Detemir (Levemir Vial) 25 units SQ ACBK [facility] Last Admin: 02/27/18 06:46 Dose: 25 units Lactobacillus Acidophilus (Bacid -) 1 tab PO DAILY [facility] Last Admin: 02/27/18 09:26 Dose: 1 tab Metoprolol Tartrate (Lopressor -) 12.5 mg PO TID [facility] Last Admin: 02/27/18 05:28 Dose: Not Given Midodrine (Proamatine -) 5 mg PO TID-MID [facility] Last Admin: 02/27/18 09:26 Dose: 5 mg Pantoprazole Sodium (Protonix Packets For Oral Suspension -) 40 mg PO DAILY [facility] Last Admin: 02/27/18 09:26 Dose: 40 mg Polyethylene Glycol (Miralax (For Daily Use) -) 17 gm PO DAILY [facility] Last Admin: 02/27/18 09:26 Dose: Not Given Rosuvastatin Calcium (Crestor -) 10 mg PO HS [facility] Last Admin: 02/26/18 21:46 Dose: 10 mg Tamsulosin HCl (Flomax -) 0.4 mg PO [facility] Last Admin: 02/26/18 21:46 Dose: 0.4 mg Warfarin Sodium (Coumadin -) 4 mg PO DAILY@1800 [facility] Last Admin: 02/26/18 19:22 Dose: 4 mg - Objective Vital Signs: Vital Signs Temperature 98 F 02/27/18 09:00 Pulse Rate 76 02/27/18 09:00 Respiratory Rate 18 02/27/18 09:00 Blood Pressure 111/52 02/27/18 09:00 O2 Sat by Pulse Oximetry (%) 99 02/27/18 09:00 Eyes: Yes: WNL, Conjunctiva Clear, EOM Intact HENT: Yes: WNL, Atraumatic, Normocephalic Neck: Yes: WNL, Supple, Trachea Midline Cardiovascular: Yes: WNL, Regular Rate and Rhythm Respiratory: Yes: WNL, Regular, CTA Bilaterally Gastrointestinal: Yes: WNL, Normal Bowel Sounds Genitourinary: Yes: WNL Musculoskeletal: Yes: WNL Extremities: Yes: WNL Edema: No Integumentary: Yes: WNL Neurological: Yes: WNL, Alert, Oriented ...Motor Strength: WNL Psychiatric: Yes: WNL Labs: CBC, BMP 02/27/18 05:35 02/27/18 05:35 INR, PTT INR 2.28 (0.83-1.09) H 02/27/18 05:35 Assessment/Plan - Problems (1) AV fistula Assessment/Plan: left AV fistula. Still using right Permacath for hemodialysis. Code(s): I77.0 - ARTERIOVENOUS FISTULA, ACQUIRED (2) Anxiety and depression Assessment/Plan: on Lexapro. Code(s): F41.8 - OTHER SPECIFIED ANXIETY DISORDERS (3) BPH (benign prostatic hypertrophy) Code(s): N40.0 - BENIGN PROSTATIC HYPERPLASIA WITHOUT LOWER URINRY TRACT SYMP (4) CVA (cerebral infarction) Assessment/Plan: Od laconar infarcts in right occipital, periventricular sites; infarct left cerebelloum on 11/14 CT. On ASA and clopidogrel for recent ID-->several DE stents, and wafarin (LV thrombu; PAF). High-dose statin to keep LDL as low as possible. Physical rehabilitation. Code(s): I63.9 - CEREBRAL INFARCTION, UNSPECIFIED Qualifiers: Cerebral infarction mechanism: unspecified mechanism Qualified Code(s): I63.9 - Cerebral infarction, unspecified (5) Fall Code(s): W19.XXXA - UNSPECIFIED FALL, INITIAL ENCOUNTER Qualifiers: Encounter type: initial encounter Qualified Code(s): W19.XXXA - Unspecified fall, initial encounter (6) Hx of heart artery stent Assessment/Plan: Hx ID-->multiple stents. On ASA and clopidogrel (as well as warfarin for ventricular thrombus and atrial flutter). Will restart clopidogrel; f/u platelet (increased today to 143). Code(s): Z95.5 - PRESENCE OF CORONARY ANGIOPLASTY IMPLANT AND GRAFT (7) Hyperlipidemia Assessment/Plan: statin; keep LDL well below 70 mg/dL. Code(s): E78.5 - HYPERLIPIDEMIA, UNSPECIFIED Qualifiers: Hyperlipidemia type: pure hypercholesterolemia Qualified Code(s): E78.00 - Pure hypercholesterolemia, unspecified; E78.0 - Pure hypercholesterolemia (8) LV (left ventricular) mural thrombus Assessment/Plan: Once again on warfarin; IV heparin until INR 2-3 (2.57 today) Code(s): SGX7136 - (9) Hypotension Assessment/Plan: See under "atrial flutter". Code(s): I95.9 - HYPOTENSION, UNSPECIFIED (10) Chronic diastolic (congestive) heart failure Assessment/Plan: ECHO this admission: preserved LVEF, with regional wall abnormalities (apical, inferior); borderline dilated LV; cannot exclude LV apical thrombus. On metoprolol (dose increased today); hydralazine held until low BP has improved. On warfarin. Tolerating hemodialysis well. Removal of fluid contributing to improved cardiac output. Code(s): I50.32 - CHRONIC DIASTOLIC (CONGESTIVE) HEART FAILURE (11) Atrial flutter Assessment/Plan: He has been tolerated hemodialysis lately without development of AFlutter with 2 :1 block; follow today's response to hemodialysis. Now in NSR; periods of mraked bradycardi metoprolol tartrate 12.5 mg q 8h. Code(s): I48.92 - UNSPECIFIED ATRIAL FLUTTER (12) Elevated LFTs Assessment/Plan: improving values; ALT remains elevated. Code(s): R94.5 - ABNORMAL RESULTS OF LIVER FUNCTION STUDIES (13) Hip hematoma, left Code(s): S70.02XA - CONTUSION OF LEFT HIP, INITIAL ENCOUNTER Qualifiers: Encounter type: subsequent encounter Qualified Code(s): S70.02XD - Contusion of left hip, subsequent encounter
[2018-02-27 11:26] LABS: ANISOCYTOSIS 2+; MACROCYTOSIS 1+; PLATELET ESTIMATE NORMAL
--- NOTE | 2018-02-27 11:56 | PN ---
Progress Note, Physician History of Present Illness: PULMONARY ALERT,OOB-CHAIR,COMFORTABLE,-SOB - Current Medication List Current Medications: Active Medications Albuterol/Ipratropium (Duoneb -) 1 amp NEB Q6H PRN PRN Reason: SHORTNESS OF BREATH Last Admin: 02/22/18 16:32 Dose: 1 amp Aspirin (Ecotrin -) 81 mg PO DAILY [facility] Last Admin: 02/27/18 09:26 Dose: 81 mg Clopidogrel Bisulfate (Plavix -) 75 mg PO DAILY [facility] Last Admin: 02/27/18 09:26 Dose: 75 mg Escitalopram Oxalate (Lexapro -) 5 mg PO [facility] Last Admin: 02/26/18 21:45 Dose: 5 mg Guaifenesin (Diabetic Tussin Dm -) 10 ml PO Q6H PRN PRN Reason: COUGH Last Admin: 02/22/18 10:27 Dose: 10 ml Sodium Chloride (Normal Saline -) 250 mls @ 3,000 mls/hr IV PRN PRN PRN Reason: Hypotension during Dialysis Stop: 02/27/18 13:39 Insulin Aspart (Novolog Vial Sliding Scale -) 1 vial SQ HS [facility]; Protocol Last Admin: 02/26/18 21:47 Dose: Not Given Insulin Aspart (Novolog Vial Sliding Scale -) 1 vial SQ TIDAC [facility]; Protocol Last Admin: 02/27/18 11:48 Dose: 10 units Insulin Detemir (Levemir Vial) 25 units SQ ACBK [facility] Last Admin: 02/27/18 06:46 Dose: 25 units Lactobacillus Acidophilus (Bacid -) 1 tab PO DAILY [facility] Last Admin: 02/27/18 09:26 Dose: 1 tab Metoprolol Tartrate (Lopressor -) 12.5 mg PO TID [facility] Last Admin: 02/27/18 05:28 Dose: Not Given Midodrine (Proamatine -) 5 mg PO TID-MID [facility] Last Admin: 02/27/18 09:26 Dose: 5 mg Pantoprazole Sodium (Protonix Packets For Oral Suspension -) 40 mg PO DAILY [facility] Last Admin: 02/27/18 09:26 Dose: 40 mg Polyethylene Glycol (Miralax (For Daily Use) -) 17 gm PO DAILY [facility] Last Admin: 02/27/18 09:26 Dose: Not Given Rosuvastatin Calcium (Crestor -) 10 mg PO [facility] Last Admin: 02/26/18 21:46 Dose: 10 mg Tamsulosin HCl (Flomax -) 0.4 mg PO [facility] Last Admin: 02/26/18 21:46 Dose: 0.4 mg Warfarin Sodium (Coumadin -) 4 mg PO DAILY@1800 [facility] Last Admin: 02/26/18 19:22 Dose: 4 mg - Objective Vital Signs: Vital Signs Temperature 98 F 02/27/18 09:00 Pulse Rate 76 02/27/18 09:00 Respiratory Rate 18 02/27/18 09:00 Blood Pressure 111/52 02/27/18 09:00 O2 Sat by Pulse Oximetry (%) 99 02/27/18 09:00 Constitutional: Yes: Well Nourished, Calm Eyes: Yes: WNL HENT: Yes: WNL Neck: Yes: WNL Cardiovascular: Yes: Pulse Irregular, S1, S2 Respiratory: Yes: Rales (BIBASILAR CRACKLES) Gastrointestinal: Yes: Normal Bowel Sounds, Soft Extremities: Yes: WNL Edema: No Labs: CBC, BMP 02/27/18 05:35 02/27/18 05:35 INR, PTT INR 2.28 (0.83-1.09) H 02/27/18 05:35 - ....Imaging Chest X-ray: Report Reviewed, Image Reviewed Problem List - Problems (1) CAD (coronary artery disease) Code(s): I25.10 - ATHSCL HEART DISEASE OF [place] CORONARY ARTERY W/O ANG PCTRS (2) Chronic diastolic (congestive) heart failure Code(s): I50.32 - CHRONIC DIASTOLIC (CONGESTIVE) HEART FAILURE (3) ESRD (end stage renal disease) on dialysis Code(s): N18.6 - END STAGE RENAL DISEASE; Z99.2 - DEPENDENCE ON RENAL DIALYSIS (4) Hypothyroid Code(s): E03.9 - HYPOTHYROIDISM, UNSPECIFIED (5) Acute on chronic systolic CHF (congestive heart failure) Code(s): I50.23 - ACUTE ON CHRONIC SYSTOLIC (CONGESTIVE) HEART FAILURE (6) Anemia Code(s): D64.9 - ANEMIA, UNSPECIFIED Qualifiers: Chronic kidney disease stage: on chronic dialysis Qualified Code(s): N18.6 - End stage renal disease; D63.1 - Anemia in chronic kidney disease; Z99.2 - Dependence on renal dialysis (7) CVA (cerebral infarction) Code(s): I63.9 - CEREBRAL INFARCTION, UNSPECIFIED Qualifiers: Cerebral infarction mechanism: unspecified mechanism Qualified Code(s): I63.9 - Cerebral infarction, unspecified (8) ESRD (end stage renal disease) on dialysis Code(s): N18.6 - END STAGE RENAL DISEASE; Z99.2 - DEPENDENCE ON RENAL DIALYSIS (9) Hx of heart artery stent Code(s): Z95.5 - PRESENCE OF CORONARY ANGIOPLASTY IMPLANT AND GRAFT (10) LV (left ventricular) mural thrombus Code(s): TTH8840 - (11) Syncope Code(s): R55 - SYNCOPE AND COLLAPSE Assessment/Plan ASSESSMENT AND PLAN: Syncope Sinus Pause Paroxysmal Atrial Fibrillation with RVR now in sinus rhythm CAD LV Diastolic Dysfunction HTN Hyperlipidemia DM LV thrombus h/o CVA ESRD on HD L upper thigh hematoma - rate control with metoprolol - anticoagulation with target INR 2-3 - HD per renal with UF as tolerated - cough suppressants - glucose control - O2 to keep Spo2 >90% - consider vascular consult DR CARCAMO
--- NOTE | 2018-02-27 15:35 | DS ---
Physical Examination Vital Signs: Vital Signs Temperature 98 F 02/27/18 14:00 Pulse Rate 68 02/27/18 14:00 Respiratory Rate 18 02/27/18 14:00 Blood Pressure 110/65 02/27/18 14:00 O2 Sat by Pulse Oximetry (%) 99 02/27/18 09:00 Constitutional: Yes: No Distress Eyes: Yes: Conjunctiva Clear Cardiovascular: Yes: Pulse Irregular Respiratory: Yes: Diminished Gastrointestinal: Yes: Soft ...Rectal Exam: Yes: Deferred Renal/: Yes: Anuria Musculoskeletal: Yes: Muscle Weakness, Other (Lt hip hematoma) Edema: LLE: Trace, RLE: Trace Integumentary: Yes: Bruising, Other (LUE venous access; Rt PC) Neurological: Yes: Weakness ...Motor Strength: WNL Labs: CBC, BMP 02/27/18 05:35 02/27/18 05:35 Laboratory Results - last 24 hr 02/26/18 02/26/18 02/26/18 17:29 18:01 20:45 WBC RBC Hgb Hct MCV MCH MCHC RDW Plt Count MPV Absolute Neuts (auto) Neutrophils % Lymphocytes % Monocytes % Eosinophils % Basophils % Nucleated RBC % Hypochromia Platelet Estimate Polychromasia Poikilocytosis Anisocytosis Microcytosis Macrocytosis Stomatocytes PT with INR 29.00 H INR 2.57 H Sodium Potassium Chloride Carbon Dioxide Anion Gap BUN Creatinine Creat Clearance w eGFR POC Glucometer 199 132 Random Glucose Calcium Phosphorus 02/27/18 02/27/18 02/27/18 03:09 05:20 05:35 WBC 7.1 RBC 3.96 L Hgb 11.1 L Hct 35.3 L MCV 89.2 MCH 27.9 MCHC 31.3 L RDW 21.6 H Plt Count 161 MPV 10.5 Absolute Neuts (auto) 5.4 Neutrophils % 75.1 Lymphocytes % 13.1 D Monocytes % 9.0 Eosinophils % 2.1 Basophils % 0.7 Nucleated RBC % 0 Hypochromia 1+ Platelet Estimate Normal Polychromasia 2+ Poikilocytosis 1+ Anisocytosis 2+ Microcytosis 2+ Macrocytosis 1+ Stomatocytes 1+ PT with INR INR Sodium Potassium Chloride Carbon Dioxide Anion Gap BUN Creatinine Creat Clearance w eGFR POC Glucometer 119 143 Random Glucose Calcium Phosphorus 02/27/18 02/27/18 02/27/18 05:35 05:35 11:47 WBC RBC Hgb Hct MCV MCH MCHC RDW Plt Count MPV Absolute Neuts (auto) Neutrophils % Lymphocytes % Monocytes % Eosinophils % Basophils % Nucleated RBC % Hypochromia Platelet Estimate Polychromasia Poikilocytosis Anisocytosis Microcytosis Macrocytosis Stomatocytes PT with INR 25.80 H INR 2.28 H Sodium 142 Potassium 4.4 Chloride 101 Carbon Dioxide 33 H Anion Gap 8 BUN 31 H D Creatinine 1.8 H Creat Clearance w eGFR 36.67 POC Glucometer 268 Random Glucose 127 H D Calcium 8.2 L Phosphorus 3.1 D Discharge Summary Reason For Visit: WITNESSED SEIZURE-LIKE ACTIVITY,CEREBRAL Current Active Problems Atrial flutter (Acute) CAD (coronary artery disease) (Acute) Chronic diastolic (congestive) heart failure (Acute) ESRD (end stage renal disease) on dialysis (Acute) Elevated LFTs (Acute) Hip hematoma, left (Acute) Hypotension (Acute) Observed seizure-like activity (Acute) Pneumonia aspiration? anemia prostatism detention use of anticoagulation depression T2 DM Lt ventricular thrombus hyperuricemia cough constipation muscle weakness Procedures: Principal: HD. transfusion Hospital Course: 77 y/o with severe CAD, DM, HTN, CHF, ventricular thrombus, and CKD on HD underwent revision of his AV shunt by Dr. Huff in AM of admission under [place] and on his way to HD became unresponsive , EMS was called and VS were stable and he was brought to the ED by his . In the ER he was oriented , VS stable and he was admitted for further management, as he also vomited several times in the ED. he was noted to have extensive ecchymosis of the LLE/Hip 2nd a fall at home a few prior to admission. Xrays of the areas involved did not show any FX. The HR was stablen but was admitted to ICU The course was complicated by hemodynamic instability (PAT while on HD); Hypotension; elevated LFTs (2nd dimnished hepatic perfusion); fluctuating H/H. He was mainted on a/c because of large LV thrombus. His HR and BP were eventually stabilized so that he could undergo dialysis. Some of cardiac meds needed re-adjustment as did the insulin. There was question that he developed aspiration PNA (while undergoing venoplasty) but this was not fully established. The CXR continued to show bibasilar congestive changes. Eccymosis and hematoma of the hip peristed and could not be stood on his feet. The CT of the LE's confirmed no visible fractures. The plan is to maintain dialysis in order to remove excess fluid; monitor glucose and avoid hypoglycemia; and to avoid Low BP states. Condition: Guarded - Instructions Diet, Activity, Other Instructions: low sodium; renal; diabetic soft diet On HD TIW check BGM TID a/c and HS Give a sugary snack if BS under 120 (he is prone to hypoglycemia) check INR TIW and adjust Warfarin as needed check CBC frequently, and watch for low H/H Physical therapy; speech therapy; nutritional eval Cardiology consult with Dr Moreno Renal consult Dr Del Cid Endocrine consult with Dr Coates Referrals: Coleman Hess MD [Primary Care Provider] - Disposition: RETIREMENT FACILITY - Home Medications Comprehensive Discharge Medication List: Ambulatory Orders Albuterol 2.5/Ipratropium 0.5 [Duoneb -] 1 amp NEB Q6H PRN amp 02/27/18 Allopurinol [Zyloprim -] 300 mg PO DAILY #30 tab 02/27/18 Aspirin Coated [Ecotrin -] 81 mg PO DAILY tablet.ec 02/27/18 Clopidogrel Bisulfate [Plavix -] 75 mg PO DAILY tablet 02/27/18 Escitalopram Oxalate [Lexapro -] 5 mg PO HS tablet 02/27/18 Guaifenesin/D-Methorphan Hb [Diabetic Tussin Dm -] 10 ml PO Q6H PRN ml Insulin (Levemir) [Levemir Vial] 25 units SQ ACBK units 02/27/18 Insulin Sliding Scale [Novolog Vial Sliding Scale -] 1 vial SQ HS units Insulin Sliding Scale [Novolog Vial Sliding Scale -] 1 vial SQ TIDAC units Lactobacillus Acidophilus [Bacid -] 1 tab PO DAILY tab 02/27/18 Metoprolol Tartrate [Lopressor -] 12.5 mg PO TID tablet 02/27/18 Midodrine HCl [Proamatine -] 5 mg PO TID-MID tablet 02/27/18 Pantoprazole Suspension [Protonix Packets For Oral Suspension -] 40 mg PO DAILY packet 02/27/18 Polyethylene Glycol 3350 [Miralax 119 gm Btl -] 17 gm PO DAILY bottle 02/27/18 Rosuvastatin [Crestor -] 10 mg PO HS tablet 02/27/18 Tamsulosin HCl [Flomax -] 0.4 mg PO HS cap.er.24h 02/27/18 Warfarin Na [Coumadin -] 4 mg PO DAILY@1800 tablet 02/27/18
--- NOTE | 2018-02-27 16:42 | PN ---
Progress Note (short form) - Note Progress Note: Renal follow up for ESRD on HD Pt seen and examined at the bedside no acute complaints s/p dialysis yesterday Vital Signs Temperature 98 F 02/27/18 14:00 Pulse Rate 68 02/27/18 14:00 Respiratory Rate 18 02/27/18 14:00 Blood Pressure 110/65 02/27/18 14:00 O2 Sat by Pulse Oximetry (%) 99 02/27/18 09:00 Intake & Output 02/24/18 02/25/18 02/26/18 02/27/18 23:59 23:59 23:59 23:59 Intake Total 480 370 75 Balance 480 370 75 Weight 73.301 kg 72.756 kg NAD RRR, No M/R Dec BS at the lung bases, no rales soft NT/ND Left hip hematoma + sacral edema CBC, BMP 02/27/18 05:35 02/27/18 05:35 Current Medications Albuterol/Ipratropium (Duoneb -) 1 amp NEB Q6H PRN PRN Reason: SHORTNESS OF BREATH Last Admin: 02/22/18 16:32 Dose: 1 amp Aspirin (Ecotrin -) 81 mg PO DAILY [facility] Last Admin: 02/27/18 09:26 Dose: 81 mg Clopidogrel Bisulfate (Plavix -) 75 mg PO DAILY [facility] Last Admin: 02/27/18 09:26 Dose: 75 mg Escitalopram Oxalate (Lexapro -) 5 mg PO HS [facility] Last Admin: 02/26/18 21:45 Dose: 5 mg Guaifenesin (Diabetic Tussin Dm -) 10 ml PO Q6H PRN PRN Reason: COUGH Last Admin: 02/22/18 10:27 Dose: 10 ml Insulin Aspart (Novolog Vial Sliding Scale -) 1 vial SQ HS [facility]; Protocol Last Admin: 02/26/18 21:47 Dose: Not Given Insulin Aspart (Novolog Vial Sliding Scale -) 1 vial SQ TIDAC [facility]; Protocol Last Admin: 02/27/18 11:48 Dose: 10 units Insulin Detemir (Levemir Vial) 25 units SQ ACBK [facility] Last Admin: 02/27/18 06:46 Dose: 25 units Lactobacillus Acidophilus (Bacid -) 1 tab PO DAILY [facility] Last Admin: 02/27/18 09:26 Dose: 1 tab Metoprolol Tartrate (Lopressor -) 12.5 mg PO TID [facility] Last Admin: 02/27/18 13:47 Dose: 12.5 mg Midodrine (Proamatine -) 5 mg PO TID-MID [facility] Last Admin: 02/27/18 13:47 Dose: 5 mg Pantoprazole Sodium (Protonix Packets For Oral Suspension -) 40 mg PO DAILY [facility] Last Admin: 02/27/18 09:26 Dose: 40 mg Polyethylene Glycol (Miralax (For Daily Use) -) 17 gm PO DAILY [facility] Last Admin: 02/27/18 09:26 Dose: Not Given Rosuvastatin Calcium (Crestor -) 10 mg PO HS [facility] Last Admin: 02/26/18 21:46 Dose: 10 mg Tamsulosin HCl (Flomax -) 0.4 mg PO [facility] Last Admin: 02/26/18 21:46 Dose: 0.4 mg Warfarin Sodium (Coumadin -) 4 mg PO DAILY@1800 [facility] Last Admin: 02/26/18 19:22 Dose: 4 mg 77 year old [place] gentleman with Hx of ESRD on HD (started this year), CAD s/p PCI, Hypertension, Hyperlipidemia, CHF, Left Ventricular Thrombus on Coumadin who presented from home with weakness and hypotension. #Weakness/Hypotension #CHF/Volume overload #ESRD on HD with Hyperkalemia #Ventricular Thrombus #Anemia #Hip Hematoma w/o fracture s/p dialysis yesterday, no VOIP ENGINE[employer] planned for today next dialysis in AM with UF as tolerated Continue BB as per cardiology Renal diet, 1.2L fluid restriction Florencio Del Cid DO
[2018-02-27] MEDS: WARFARIN NA 2 MG TABLET (UD) PO SCH (17:09)
[2018-02-27] MEDS: ESCITALOPRAM OXALATE 10 MG TABLET (FP) PO SCH (21:30)
[2018-02-27] MEDS: ROSUVASTATIN CA 10 MG TABLET (FP) PO SCH (21:31)
[2018-02-27] MEDS: TAMSULOSIN HCL 0.4 MG CAP.ER.24H (FP) PO SCH (21:31)
[2018-02-28] MEDS: METOPROLOL TARTRATE 25 MG TABLET (FP) PO SCH (05:55)
[2018-02-28] MEDS: INSULIN (LEVEMIR) 100 UNITS/ML UNITS SQ SCH (06:26)
[2018-02-28] MEDS: INSULIN SLIDING SCALE (NOVOLOG) 1 VIAL SQ SCH ×3 (06:26→16:23)
[2018-02-28] MEDS ORDERED: METOPROLOL TARTRATE 25 MG TABLET (FP) PO SCH ×2 (06:30→22:00)
[2018-02-28] MEDS ORDERED: SODIUM CHLORIDE 250 ML IV PRN (07:44)
[2018-02-28] MEDS ORDERED: EPOETIN ALFA 10,000 UNIT/1 ML VIAL IVPUSH ONE (09:00)
[2018-02-28] MEDS: PANTOPRAZOLE SOD 40 MG SUSPENSION PACKET PO SCH (09:01)
[2018-02-28] MEDS: LACTOBACILLUS ACIDOPHILUS 1 TABLET PO SCH (09:01)
[2018-02-28] MEDS: POLYETHYLENE GLYCOL 3350 119 GM BTL PO SCH (09:01)
[2018-02-28] MEDS: MIDODRINE HCL 5 MG TABLET PO SCH ×4 (09:01→17:27)
[2018-02-28] MEDS: ASPIRIN COATED 81 MG TABLET.EC PO SCH (09:01)
[2018-02-28] MEDS: CLOPIDOGREL BISULFATE 75 MG TABLET (FP) PO SCH (09:01)
[2018-02-28 09:12] LABS: HEMATOCRIT 34.3 % (35.4-49); HEMOGLOBIN 10.7 GM/dL (11.7-16.9); MCH 27.9 pg (25.7-33.7); MCHC 31.3 g/dl (32.0-35.9); MEAN CELL VOLUME 89.1 fl (80-96); MEAN PLT VOLUME 10.2 fl (7.5-11.1); PLATELET COUNT 175 K/MM3 (134-434); RBC 3.85 M/mm3 (4.00-5.60); RDW 22.6 % (11.9-15.9); WHITE BLOOD COUNT 6.9 K/mm3 (4.0-10.0)
[2018-02-28 09:19] LABS: INR 2.38 (0.83-1.09); PROTHROMBIN TIME (PATIENT) 26.9 SEC (9.7-13.0)
[2018-02-28 09:37] LABS: ANION GAP 8 MMOL/L (8-16); BLOOD UREA NITROGEN 48 mg/dL (7-18); CHLORIDE 100 mmol/L (98-107); CO2 29 mmol/L (21-32); CREATININE 2.5 mg/dL (0.7-1.3); GLUCOSE,RANDOM 155 mg/dL (74-106); POTASSIUM 4.7 mmol/L (3.5-5.1); SODIUM 137 mmol/L (136-145)
--- NOTE | 2018-02-28 10:19 | PN ---
Progress Note, Physician Chief Complaint: Pt alert and oriented; no compaints; undergoing hemodialysis. History of Present Illness: Patient is a 77 year old male (linnea Kingsley), with PMHx of CVA, CAD (TX--> 5 coronary stents at [facility] 08/17, with subsequent renal failure and ventricular thrombus; currently on ASA, clopidogrel, and warfarin), ESRD ( hemodialysis since 11/2017), diastolic CHF, HTN, HLD, s/p GI Bleed, Anxiety, Diabetes Mellitus, who presents with generalized weakness and low blood pressure. The patients (Dr. Davila) states that this afternoon he vomited and noted that his blood pressure was relatively low and he was feeling weak. She brought him to [facility] ER where he has history. He receives dialysis every Friday, , and Friday, but did not go today. Earlier in the day, prior to planned hemodialysis, he underwent renal angioplasty by the vascular surgeon (Dr. Huff) and was NPO. Surgical Hx: December 05 2017 - Renal angioplasty. 02/12/18 : Left AVFistula with stenosis. TX (Jul, 2017) with multiple stent placements simultaenously. PCP: Coleman Hess - Current Medication List Current Medications: Active Medications Albuterol/Ipratropium (Duoneb -) 1 amp NEB Q6H PRN PRN Reason: SHORTNESS OF BREATH Last Admin: 02/22/18 16:32 Dose: 1 amp Aspirin (Ecotrin -) 81 mg PO DAILY [facility] Last Admin: 02/28/18 09:01 Dose: 81 mg Clopidogrel Bisulfate (Plavix -) 75 mg PO DAILY [facility] Last Admin: 02/28/18 09:01 Dose: 75 mg Escitalopram Oxalate (Lexapro -) 5 mg PO HS [facility] Last Admin: 02/27/18 21:30 Dose: 5 mg Guaifenesin (Diabetic Tussin Dm -) 10 ml PO Q6H PRN PRN Reason: COUGH Last Admin: 02/22/18 10:27 Dose: 10 ml Sodium Chloride (Normal Saline -) 250 mls @ 3,000 mls/hr IV PRN PRN PRN Reason: Hypotension during Dialysis Stop: 03/01/18 07:43 Insulin Aspart (Novolog Vial Sliding Scale -) 1 vial SQ [facility]; Protocol Last Admin: 02/27/18 21:32 Dose: Not Given Insulin Aspart (Novolog Vial Sliding Scale -) 1 vial SQ TIDAC [facility]; Protocol Last Admin: 02/28/18 06:26 Dose: Not Given Insulin Detemir (Levemir Vial) 25 units SQ ACBK [facility] Last Admin: 02/28/18 06:26 Dose: 25 units Lactobacillus Acidophilus (Bacid -) 1 tab PO DAILY [facility] Last Admin: 02/28/18 09:01 Dose: 1 tab Metoprolol Tartrate (Lopressor -) 12.5 mg PO TID [facility] Last Admin: 02/28/18 06:32 Dose: Not Given Midodrine (Proamatine -) 5 mg PO TID-MID [facility] Last Admin: 02/28/18 09:01 Dose: 5 mg Pantoprazole Sodium (Protonix Packets For Oral Suspension -) 40 mg PO DAILY [facility] Last Admin: 02/28/18 09:01 Dose: 40 mg Polyethylene Glycol (Miralax (For Daily Use) -) 17 gm PO DAILY [facility] Last Admin: 02/28/18 09:01 Dose: Not Given Rosuvastatin Calcium (Crestor -) 10 mg PO [facility] Last Admin: 02/27/18 21:31 Dose: 10 mg Tamsulosin HCl (Flomax -) 0.4 mg PO [facility] Last Admin: 02/27/18 21:31 Dose: 0.4 mg Warfarin Sodium (Coumadin -) 4 mg PO DAILY@1800 [facility] Last Admin: 02/27/18 17:09 Dose: 4 mg - Objective Vital Signs: Vital Signs Temperature 98.1 F 02/28/18 05:48 Pulse Rate 75 02/28/18 08:55 Respiratory Rate 18 02/28/18 08:55 Blood Pressure 115/48 02/28/18 08:55 O2 Sat by Pulse Oximetry (%) 99 02/27/18 19:37 Constitutional: Yes: Calm Eyes: Yes: WNL HENT: Yes: WNL Neck: Yes: WNL Cardiovascular: Yes: Bradycardia Respiratory: Yes: Regular Gastrointestinal: Yes: Soft ...Rectal Exam: Yes: Erythema Genitourinary: No: Anuria Musculoskeletal: Yes: Muscle Weakness Extremities: Yes: Cool Edema: No Peripheral Pulses WNL: Yes Integumentary: Yes: WNL Neurological: Yes: Alert, Oriented, Weakness Psychiatric: Yes: Other Labs: CBC, BMP 02/28/18 08:00 02/28/18 08:00 INR, PTT INR 2.38 (0.83-1.09) H 02/28/18 08:00 Abnormal Lab Results 02/28/18 02/28/18 02/28/18 08:00 08:00 08:00 RBC 3.85 L Hgb 10.7 L Hct 34.3 L MCHC 31.3 L RDW 22.6 H PT with INR 26.90 H INR 2.38 H BUN 48 H Creatinine 2.5 H Random Glucose 155 H D Calcium 8.0 L TSH 9.06 H D - ....Imaging Other: Image Reviewed (telemetry: NSR; periods of sinus bradycardia) Problem List - Problems (1) AV fistula Assessment/Plan: left AV fistula. Still using right Permacath for hemodialysis. Code(s): I77.0 - ARTERIOVENOUS FISTULA, ACQUIRED (2) Anxiety and depression Assessment/Plan: on Lexapro. Code(s): F41.8 - OTHER SPECIFIED ANXIETY DISORDERS (3) BPH (benign prostatic hypertrophy) Code(s): N40.0 - BENIGN PROSTATIC HYPERPLASIA WITHOUT LOWER URINRY TRACT SYMP (4) CVA (cerebral infarction) Assessment/Plan: Od laconar infarcts in right occipital, periventricular sites; infarct left cerebelloum on 11/14 CT. On ASA and clopidogrel for recent TX-->several DE stents, and wafarin (LV thrombu; PAF). High-dose statin to keep LDL as low as possible. Physical rehabilitation. Code(s): I63.9 - CEREBRAL INFARCTION, UNSPECIFIED Qualifiers: Cerebral infarction mechanism: unspecified mechanism Qualified Code(s): I63.9 - Cerebral infarction, unspecified (5) Fall Code(s): W19.XXXA - UNSPECIFIED FALL, INITIAL ENCOUNTER Qualifiers: Encounter type: initial encounter Qualified Code(s): W19.XXXA - Unspecified fall, initial encounter (6) Hx of heart artery stent Assessment/Plan: Hx TX-->multiple stents. On ASA and clopidogrel (as well as warfarin for ventricular thrombus and atrial flutter). Will restart clopidogrel; f/u platelet (increased today to 143). Code(s): Z95.5 - PRESENCE OF CORONARY ANGIOPLASTY IMPLANT AND GRAFT (7) Hyperlipidemia Assessment/Plan: statin; keep LDL well below 70 mg/dL. Code(s): E78.5 - HYPERLIPIDEMIA, UNSPECIFIED Qualifiers: Hyperlipidemia type: pure hypercholesterolemia Qualified Code(s): E78.00 - Pure hypercholesterolemia, unspecified; E78.0 - Pure hypercholesterolemia (8) LV (left ventricular) mural thrombus Assessment/Plan: On warfarin; INR therapeutic Code(s): DSV8471 - (9) Hypotension Assessment/Plan: See under "atrial flutter". Code(s): I95.9 - HYPOTENSION, UNSPECIFIED (10) Chronic diastolic (congestive) heart failure Assessment/Plan: ECHO this admission: preserved LVEF, with regional wall abnormalities (apical, inferior); borderline dilated LV; cannot exclude LV apical thrombus. On metoprolol (dose increased today); hydralazine held until low BP has improved. On warfarin. Tolerating hemodialysis well. Removal of fluid contributing to improved cardiac output. Code(s): I50.32 - CHRONIC DIASTOLIC (CONGESTIVE) HEART FAILURE (11) Atrial flutter Assessment/Plan: He has been tolerated hemodialysis lately without development of AFlutter with 2 :1 block; follow today's response to hemodialysis. Metoprolol decreased to 12.5 mg bid (doses have been held several times over the past 48 hours due to marked sinus bradycardia). From a cardiac standpoint, pt may be transferred to rehabilitation facility; will f/u as outpatient. Code(s): I48.92 - UNSPECIFIED ATRIAL FLUTTER (12) Elevated LFTs Code(s): R94.5 - ABNORMAL RESULTS OF LIVER FUNCTION STUDIES (13) Hip hematoma, left Code(s): S70.02XA - CONTUSION OF LEFT HIP, INITIAL ENCOUNTER Qualifiers: Encounter type: subsequent encounter Qualified Code(s): S70.02XD - Contusion of left hip, subsequent encounter (14) Hypothyroid Assessment/Plan: F/u TFTs (TSH is >9; free T4 WNL; f/u free T3. Code(s): E03.9 - HYPOTHYROIDISM, UNSPECIFIED
--- NOTE | 2018-02-28 11:04 | PN ---
Progress Note (short form) - Note Progress Note: Renal follow up for ESRD on HD Pt seen and examined during dialysis awake and alert BP stable, goal UF is 3.5L catheter with good flow no acute complaints no cp, abd pain, N/V/D Vital Signs Temperature 98 F 02/28/18 10:00 Pulse Rate 66 02/28/18 10:00 Respiratory Rate 18 02/28/18 10:00 Blood Pressure 115/60 02/28/18 10:00 O2 Sat by Pulse Oximetry (%) 98 02/28/18 09:00 Intake & Output 02/25/18 02/26/18 02/27/18 02/28/18 23:59 23:59 23:59 23:59 Intake Total 480 370 75 75 Balance 480 370 75 75 Weight 73.301 kg 72.756 kg 71.668 kg NAD RRR, No M/R Dec BS at the lung bases, no rales soft NT/ND Left hip hematoma + sacral edema CBC, BMP 02/28/18 08:00 02/28/18 08:00 Current Medications Albuterol/Ipratropium (Duoneb -) 1 amp NEB Q6H PRN PRN Reason: SHORTNESS OF BREATH Last Admin: 02/22/18 16:32 Dose: 1 amp Aspirin (Ecotrin -) 81 mg PO DAILY [facility] Last Admin: 02/28/18 09:01 Dose: 81 mg Clopidogrel Bisulfate (Plavix -) 75 mg PO DAILY [facility] Last Admin: 02/28/18 09:01 Dose: 75 mg Escitalopram Oxalate (Lexapro -) 5 mg PO [facility] Last Admin: 02/27/18 21:30 Dose: 5 mg Guaifenesin (Diabetic Tussin Dm -) 10 ml PO Q6H PRN PRN Reason: COUGH Last Admin: 02/22/18 10:27 Dose: 10 ml Sodium Chloride (Normal Saline -) 250 mls @ 3,000 mls/hr IV PRN PRN PRN Reason: Hypotension during Dialysis Stop: 03/01/18 07:43 Insulin Aspart (Novolog Vial Sliding Scale -) 1 vial SQ HS [facility]; Protocol Last Admin: 02/27/18 21:32 Dose: Not Given Insulin Aspart (Novolog Vial Sliding Scale -) 1 vial SQ TIDAC [facility]; Protocol Last Admin: 02/28/18 06:26 Dose: Not Given Insulin Detemir (Levemir Vial) 25 units SQ ACBK [facility] Last Admin: 02/28/18 06:26 Dose: 25 units Lactobacillus Acidophilus (Bacid -) 1 tab PO DAILY [facility] Last Admin: 02/28/18 09:01 Dose: 1 tab Metoprolol Tartrate (Lopressor -) 12.5 mg PO BID [facility] Midodrine (Proamatine -) 5 mg PO TID-MID [facility] Last Admin: 02/28/18 09:01 Dose: 5 mg Pantoprazole Sodium (Protonix Packets For Oral Suspension -) 40 mg PO DAILY [facility] Last Admin: 02/28/18 09:01 Dose: 40 mg Polyethylene Glycol (Miralax (For Daily Use) -) 17 gm PO DAILY [facility] Last Admin: 02/28/18 09:01 Dose: Not Given Rosuvastatin Calcium (Crestor -) 10 mg PO HS [facility] Last Admin: 02/27/18 21:31 Dose: 10 mg Tamsulosin HCl (Flomax -) 0.4 mg PO HS [facility] Last Admin: 02/27/18 21:31 Dose: 0.4 mg Warfarin Sodium (Coumadin -) 4 mg PO DAILY@1800 [facility] Last Admin: 02/27/18 17:09 Dose: 4 mg 77 year old gentleman with Hx of ESRD on HD (started this year), CAD s/p PCI, Hypertension, Hyperlipidemia, CHF, Left Ventricular Thrombus on Coumadin who presented from home with weakness and hypotension. #Weakness/Hypotension #CHF/Volume overload #ESRD on HD with Hyperkalemia #Ventricular Thrombus #Anemia #Hip Hematoma w/o fracture tolerating dialysis well today UF as tolerated continue salt and fluid restriction HR control as per cardiology will give AMY with HD discharge planning as per primary Florencio Del Cid DO
--- NOTE | 2018-02-28 13:02 | PN ---
Progress Note (short form) - Note Progress Note: PULMONARY Receiving HD. States breathing better. +nonproductive cough. Vital Signs Period Temp Pulse Resp BP Sys/Simons Pulse Ox Last 24 Hr 97.8 F-98.9 F 45-77 18-20 110-138/48-83 98-99 Gen: NAD at rest Heart: RRR Lung: decreased breath sounds at the bases Abd: soft, nontender Ext: no edema CBC, BMP 02/28/18 08:00 02/28/18 08:00 Active Medications Albuterol/Ipratropium (Duoneb -) 1 amp NEB Q6H PRN PRN Reason: SHORTNESS OF BREATH Last Admin: 02/22/18 16:32 Dose: 1 amp Aspirin (Ecotrin -) 81 mg PO DAILY [facility] Last Admin: 02/28/18 09:01 Dose: 81 mg Clopidogrel Bisulfate (Plavix -) 75 mg PO DAILY [facility] Last Admin: 02/28/18 09:01 Dose: 75 mg Escitalopram Oxalate (Lexapro -) [address] [facility] Last Admin: 02/27/18 21:30 Dose: 5 mg Guaifenesin (Diabetic Tussin Dm -) 10 ml PO Q6H PRN PRN Reason: COUGH Last Admin: 02/22/18 10:27 Dose: 10 ml Sodium Chloride (Normal Saline -) 250 mls @ 3,000 mls/hr IV PRN PRN PRN Reason: Hypotension during Dialysis Stop: 03/01/18 07:43 Insulin Aspart (Novolog Vial Sliding Scale -) 1 vial SQ HS [facility]; Protocol Last Admin: 02/27/18 21:32 Dose: Not Given Insulin Aspart (Novolog Vial Sliding Scale -) 1 vial SQ TIDAC [facility]; Protocol Last Admin: 02/28/18 11:41 Dose: 4 units Insulin Detemir (Levemir Vial) 25 units SQ ACBK [facility] Last Admin: 02/28/18 06:26 Dose: 25 units Lactobacillus Acidophilus (Bacid -) 1 tab PO DAILY [facility] Last Admin: 02/28/18 09:01 Dose: 1 tab Metoprolol Tartrate (Lopressor -) 12.5 mg PO BID [facility] Midodrine (Proamatine -) 5 mg PO TID-MID [facility] Last Admin: 02/28/18 09:01 Dose: 5 mg Pantoprazole Sodium (Protonix Packets For Oral Suspension -) 40 mg PO DAILY [facility] Last Admin: 02/28/18 09:01 Dose: 40 mg Polyethylene Glycol (Miralax (For Daily Use) -) 17 gm PO DAILY [facility] Last Admin: 02/28/18 09:01 Dose: Not Given Rosuvastatin Calcium (Crestor -) 10 mg PO HS [facility] Last Admin: 02/27/18 21:31 Dose: 10 mg Tamsulosin HCl (Flomax -) 0.[address] [facility] Last Admin: 02/27/18 21:31 Dose: 0.4 mg Warfarin Sodium (Coumadin -) 4 mg PO DAILY@1800 [facility] Last Admin: 02/27/18 17:09 Dose: 4 mg A/P Syncope Sinus Pause Paroxysmal Atrial Fibrillation with RVR now in sinus rhythm CAD LV Diastolic Dysfunction HTN Hyperlipidemia DM LV thrombus h/o CVA ESRD on HD L upper thigh hematoma - rate control with metoprolol - anticoagulation with target INR 2-3 - HD per renal with UF as tolerated - cough suppressants - glucose control - O2 to keep Spo2 >90%
[2018-02-28] MEDS ORDERED: WARFARIN NA 2 MG TABLET (UD) PO ONE (16:15)
--- NOTE | 2018-02-28 16:16 | PN ---
Progress Note (short form) - Note Progress Note: ################ addendum to discharge summary ################ Current Medications Albuterol/Ipratropium (Duoneb -) 1 amp NEB Q6H PRN PRN Reason: SHORTNESS OF BREATH Last Admin: 02/22/18 16:32 Dose: 1 amp Aspirin (Ecotrin -) 81 mg PO DAILY [facility] Last Admin: 02/28/18 09:01 Dose: 81 mg Clopidogrel Bisulfate (Plavix -) 75 mg PO DAILY [facility] Last Admin: 02/28/18 09:01 Dose: 75 mg Escitalopram Oxalate (Lexapro -) 5 mg PO HS [facility] Last Admin: 02/27/18 21:30 Dose: 5 mg Guaifenesin (Diabetic Tussin Dm -) 10 ml PO Q6H PRN PRN Reason: COUGH Last Admin: 02/22/18 10:27 Dose: 10 ml Sodium Chloride (Normal Saline -) 250 mls @ 3,000 mls/hr IV PRN PRN PRN Reason: Hypotension during Dialysis Stop: 03/01/18 07:43 Insulin Aspart (Novolog Vial Sliding Scale -) 1 vial SQ HS [facility]; Protocol Last Admin: 02/27/18 21:32 Dose: Not Given Insulin Aspart (Novolog Vial Sliding Scale -) 1 vial SQ TIDAC [facility]; Protocol Last Admin: 02/28/18 11:41 Dose: 4 units Insulin Detemir (Levemir Vial) 25 units SQ ACBK [facility] Last Admin: 02/28/18 06:26 Dose: 25 units Lactobacillus Acidophilus (Bacid -) 1 tab PO DAILY [facility] Last Admin: 02/28/18 09:01 Dose: 1 tab Metoprolol Tartrate (Lopressor -) 12.5 mg PO BID [facility] Midodrine (Proamatine -) 5 mg PO TID-MID [facility] Last Admin: 02/28/18 13:10 Dose: 5 mg Midodrine (Proamatine -) 5 mg PO ONCE ONE Stop: 02/28/18 18:01 Pantoprazole Sodium (Protonix Packets For Oral Suspension -) 40 mg PO DAILY [facility] Last Admin: 02/28/18 09:01 Dose: 40 mg Polyethylene Glycol (Miralax (For Daily Use) -) 17 gm PO DAILY [facility] Last Admin: 02/28/18 09:01 Dose: Not Given Rosuvastatin Calcium (Crestor -) 10 mg PO [facility] Last Admin: 02/27/18 21:31 Dose: 10 mg Tamsulosin HCl (Flomax -) 0.4 mg PO [facility] Last Admin: 02/27/18 21:31 Dose: 0.4 mg Warfarin Sodium (Coumadin -) 4 mg PO DAILY@1800 [facility] Last Admin: 02/27/18 17:09 Dose: 4 mg Warfarin Sodium (Coumadin -) 4 mg PO NOW ONE Stop: 02/28/18 16:16 Laboratory Results - last 24 hr 02/27/18 02/27/18 02/28/18 16:54 20:41 05:24 WBC RBC Hgb Hct MCV MCH MCHC RDW Plt Count MPV PT with INR INR Sodium Potassium Chloride Carbon Dioxide Anion Gap BUN Creatinine Creat Clearance w eGFR POC Glucometer 132 220 144 Random Glucose Calcium TSH 02/28/18 02/28/18 02/28/18 08:00 08:00 08:00 WBC 6.9 RBC 3.85 L Hgb 10.7 L Hct 34.3 L MCV 89.1 MCH 27.9 MCHC 31.3 L RDW 22.6 H Plt Count 175 MPV 10.2 PT with INR 26.90 H INR 2.38 H Sodium 137 Potassium 4.7 Chloride 100 Carbon Dioxide 29 Anion Gap 8 BUN 48 H Creatinine 2.5 H Creat Clearance w eGFR 25.10 POC Glucometer Random Glucose 155 H D Calcium 8.0 L TSH 9.06 H D 02/28/18 11:40 WBC RBC Hgb Hct MCV MCH MCHC RDW Plt Count MPV PT with INR INR Sodium Potassium Chloride Carbon Dioxide Anion Gap BUN Creatinine Creat Clearance w eGFR POC Glucometer 185 Random Glucose Calcium TSH Vital Signs Temperature 97.7 F 02/28/18 14:00 Pulse Rate 64 02/28/18 14:00 Respiratory Rate 18 02/28/18 14:00 Blood Pressure 120/59 02/28/18 14:00 O2 Sat by Pulse Oximetry (%) 98 02/28/18 09:00 CC: none ~~~~~~~~~~~ skin--NL color heart--Irreg under 100 lungs--dimnished; unlabored abd--soft ext--able to lift the LLE on his own neuro--awake; drosy but verbal; moves all E's ````````````````````````````````````````` Summ > SVT--seems to under control now, no runs of SVT; but has periods of bradycardia; gonzales of BB changed to BID > Hypotension--has been better with Midodrine, and now able to have dialysis. > ESRD--on HD (see renal note) > anemia--H/h remains stable > high Transaminases--3/4 enzymes in NL range; likely due to passive hepatic congestion > CAD-- post angioplasty, ventricular thrombus, on Plavix, asa, warf. > DM--Glucose fluctating, but is prone to hypoglycemic state; see endocrine note > Hematoma left thigh and hip --due to a fall, no Fx on Xray; CT of the Hip shows no Fx > CHF--2nd volume overload; CXR still shows bilat lower lobe congestion & effusions, cont HD at [facility] ~~~~~~~~~~~~~~~ Dr Jean......for Dr Hess
[2018-02-28] MEDS: WARFARIN NA 2 MG TABLET (UD) PO SCH (17:26)
--- NOTE | 2018-02-28 17:26 | PN ---
Progress Note (short form) - Note Progress Note: Feels good No new complaints Cough resolved Has some Hicupps No hypos Apetite good Blood sugar acceptable Vital Signs Period Temp Pulse Resp BP Sys/Simons Pulse Ox Last 24 Hr 97.7 F-98.9 F 45-77 18-20 115-138/48-83 98-99 PE: awake, alert Neck: Supple HEENT: EOMI Lungs:CTA CVS: S1S2 Abd: Benign Ext: No edema CMP Sodium 137 mmol/L (136-145) 02/28/18 08:00 Potassium 4.7 mmol/L (3.5-5.1) 02/28/18 08:00 Chloride 100 mmol/L (98-107) 02/28/18 08:00 Carbon Dioxide 29 mmol/L (21-32) 02/28/18 08:00 Anion Gap 8 MMOL/L (8-16) 02/28/18 08:00 BUN 48 mg/dL (7-18) H 02/28/18 08:00 Creatinine 2.5 mg/dL (0.7-1.3) H 02/28/18 08:00 Creat Clearance w eGFR 25.10 (>60) 02/28/18 08:00 POC Glucometer 158 UNITS (80-120) 02/28/18 16:21 Random Glucose 155 mg/dL (74-106) H D 02/28/18 08:00 Lactic Acid 1.5 mmol/L (0.0-2.0) 02/13/18 05:30 Calcium 8.0 mg/dL (8.5-10.1) L 02/28/18 08:00 Phosphorus 3.1 mg/dL (2.5-4.9) D 02/27/18 05:35 Magnesium 2.5 mg/dL (1.8-2.4) H 02/23/18 06:00 Total Bilirubin 0.7 mg/dL (0.2-1.0) 02/23/18 06:00 AST 27 U/L (15-37) D 02/23/18 06:00 ALT 210 U/L (12-78) H D 02/23/18 06:00 Alkaline Phosphatase 94 U/L (45-117) 02/23/18 06:00 Ammonia 22.7 umol/L (11-32) 02/20/18 05:30 Creatine Kinase 38 IU/L (39-308) L 02/17/18 05:30 Troponin I 0.06 ng/ml (0.00-0.05) H D 02/17/18 05:30 B-Natriuretic Peptide 30675.90 pg/ml (5-450) H 02/21/18 20:05 Total Protein 5.4 g/dl (6.4-8.2) L 02/23/18 06:00 Albumin 2.6 g/dl (3.4-5.0) L 02/23/18 06:00 Total Amylase 67 U/L (25-115) 02/12/18 23:40 Lipase 236 U/L (73-393) 02/12/18 23:40 TSH 9.06 uIU/ml (0.358-3.74) H D 02/28/18 08:00 Free T4 0.84 ng/dl (0.76-1.16) 02/21/18 20:05 Current Medications Generic Name Dose Route Start Last Admin Trade Name Freq PRN Reason Stop Dose Admin Albuterol/Ipratropium 1 amp 02/14/18 12:11 02/22/18 16:32 Duoneb - NEB 1 amp Q6H PRN Administration SHORTNESS OF BREATH Aspirin 81 mg 02/15/18 10:00 02/28/18 09:01 Ecotrin - PO 81 mg DAILY [facility] Administration Clopidogrel Bisulfate 75 mg 02/25/18 10:00 02/28/18 09:01 Plavix - PO 75 mg DAILY [facility] Administration Escitalopram Oxalate 5 mg 02/13/18 22:00 02/27/18 21:30 Lexapro - PO 5 mg HS [facility] Administration Guaifenesin 10 ml 02/17/18 13:13 02/22/18 10:27 Diabetic Tussin Dm - PO 10 ml Q6H PRN Administration COUGH Sodium Chloride 250 mls @ 3,000 mls/hr 02/28/18 07:44 Normal Saline - IV 03/01/18 07:43 PRN PRN Hypotension during Dialysis Insulin Aspart 1 vial 02/18/18 22:00 02/27/18 21:32 Novolog Vial Sliding Scale - SQ Not Given HS [facility] Protocol Insulin Aspart 1 vial 02/20/18 11:12 02/28/18 16:23 Novolog Vial Sliding Scale - SQ Not Given TIDAC [facility] Protocol Insulin Detemir 25 units 02/25/18 09:46 02/28/18 06:26 Levemir Vial SQ 25 units ACBK [facility] Administration Lactobacillus Acidophilus 1 tab 02/19/18 10:00 02/28/18 09:01 Bacid - PO 1 tab DAILY [facility] Administration Metoprolol Tartrate 12.5 mg 02/28/18 22:00 Lopressor - PO BID [facility] Midodrine 5 mg 02/20/18 12:30 02/28/18 16:13 Proamatine - PO 5 mg TID-MID [facility] Administration Midodrine 5 mg 02/28/18 18:00 Proamatine - PO 02/28/18 18:01 ONCE ONE Pantoprazole Sodium 40 mg 02/22/18 16:30 02/28/18 09:01 Protonix Packets For Oral Suspension - PO 40 mg DAILY [facility] Administration Polyethylene Glycol 17 gm 02/17/18 20:15 02/28/18 09:01 Miralax (For Daily Use) - PO Not Given DAILY [facility] Rosuvastatin Calcium 10 mg 02/21/18 22:00 02/27/18 21:31 Crestor - PO 10 mg HS [facility] Administration Tamsulosin HCl 0.4 mg 02/13/18 22:00 02/27/18 21:31 Flomax - PO 0.4 mg HS [facility] Administration Warfarin Sodium 4 mg 02/18/18 18:00 02/27/18 17:09 Coumadin - PO 4 mg DAILY@1800 [facility] Administration AP: T2DM with hyperlgycemia: Stable now ESRD S/P Asystole of 4 sec CAD H/O CVA Possible Aspiration Pneumonia Left thigh hematoma: CT report noted Subclinical Hypothyroidism: Rpt TSH 9.06 Blood sugar goal around 120 to 180 to avoid hypoglycemia.Blood sugar in the hospital has been stable with no demonstrated brittleness eventhough pt had frequent hypoglycemia at home especially at night. BGM QACHS and 3 AM Snack of half sandwich if FS <120 at bedtime or 3 AM. ContinueLevemir 25 units. Novolog ss coverage No LT4 replacement in view of episodes of tachycardia. Will f/u Problem List - Problems (1) Chronic diastolic (congestive) heart failure Code(s): I50.32 - CHRONIC DIASTOLIC (CONGESTIVE) HEART FAILURE (2) Hip hematoma, left Code(s): S70.02XA - CONTUSION OF LEFT HIP, INITIAL ENCOUNTER Qualifiers: Encounter type: subsequent encounter Qualified Code(s): S70.02XD - Contusion of left hip, subsequent encounter (3) Hypotension Code(s): I95.9 - HYPOTENSION, UNSPECIFIED (4) ESRD (end stage renal disease) on dialysis Code(s): N18.6 - END STAGE RENAL DISEASE; Z99.2 - DEPENDENCE ON RENAL DIALYSIS
[2018-02-28] MEDS ORDERED: MIDODRINE HCL 5 MG TABLET PO ONE (18:00)
[2018-02-28 20:24] VITALS: BP 124/60; PULSE 68; TEMP 98
== END 2018-02-28 19:04 | DRG 811 ==
LOC: JER 21:02 → JERBED 02-13 00:16 → JICU 02-13 02:31 → J2W 02-14 15:17 → JICU 02-16 20:07 → J4W 02-22 16:58
PROVIDERS: ADMIT Internal Medicine Hematology & Oncology; ATTEND Internal Medicine Hematology & Oncology
PROC: 5A1D70Z Performance of Urinary Filtration, Intermittent, Less than 6 Hours Per Day (ICD-10-PCS; principal; 2018-02-14)
PROC: 30233N1 Transfusion of Nonautologous Red Blood Cells into Peripheral Vein, Percutaneous Approach (ICD-10-PCS; 2018-02-15)
DX: D62 Acute posthemorrhagic anemia (principal); J69.0 Pneumonitis due to inhalation of food and vomit; I13.0 Hypertensive heart and chronic kidney disease with heart failure and stage 1 through stage 4 chronic kidney disease, or unspecified chronic kidney disease; I50.32 Chronic diastolic (congestive) heart failure; I42.9 Cardiomyopathy, unspecified; E11.22 Type 2 diabetes mellitus with diabetic chronic kidney disease; E11.65 Type 2 diabetes mellitus with hyperglycemia; E11.42 Type 2 diabetes mellitus with diabetic polyneuropathy; N18.9 Chronic kidney disease, unspecified; I48.0 Paroxysmal atrial fibrillation; E87.5 Hyperkalemia; D63.1 Anemia in chronic kidney disease; E87.70 Fluid overload, unspecified; Z99.2 Dependence on renal dialysis; Z79.4 Long term (current) use of insulin; I95.9 Hypotension, unspecified; E78.5 Hyperlipidemia, unspecified; I51.3 Intracardiac thrombosis, not elsewhere classified; I25.2 Old myocardial infarction; I25.10 Atherosclerotic heart disease of native coronary artery without angina pectoris; Z95.5 Presence of coronary angioplasty implant and graft; F41.9 Anxiety disorder, unspecified; D64.9 Anemia, unspecified; Z86.73 Personal history of transient ischemic attack (TIA), and cerebral infarction without residual deficits; N40.0 Benign prostatic hyperplasia without lower urinary tract symptoms; F32.9 Major depressive disorder, single episode, unspecified; Z79.01 Long term (current) use of anticoagulants; F41.8 Other specified anxiety disorders; R55 Syncope and collapse; S70.01XA Contusion of right hip, initial encounter; W01.0XXA Fall on same level from slipping, tripping and stumbling without subsequent striking against object, initial encounter; Y93.89 Activity, other specified; Y92.018 Other place in single-family (private) house as the place of occurrence of the external cause; Y99.8 Other external cause status; R11.10 Vomiting, unspecified; R53.1 Weakness; R94.5 Abnormal results of liver function studies
CPT/HCPCS: 36415; 36430; 71045-TC-FY; 71046-TC-FY; 72192-TC; 73523-TC-FY; 73700-TC-RT; 76000-TC-FY; 80048; 80053; 82140; 82150; 82550; 82565; 82947; 82962; 83605; 83690; 83735; 83880; 84100; 84132; 84436; 84439; 84443; 84481; 84484; 84520; 85025; 85027; 85610; 85730; 86704; 86706; 86708; 86803; 86850; 86900; 86901; 86922; 87040; 87340; 93005; 93010; 93306-TC; 94640; 94760; 97116-GP; 97161-GP; 99282-25; J0885; J1644; J7620; P9038; P9047; P9058

== ENCOUNTER 2018-05-01 12:23 | Day surgery (SDC) | payer OTHER, MEDICARE ==
[2018-04-30 17:02] VITALS: BMI 23.1
[2018-05-01] MEDS ORDERED: HEPARIN NA (PORCINE) 5,000 UNITS/ML 1ML VIAL ONE (13:18)
[2018-05-01 13:40] LABS: INR 1.02 (0.83-1.09)
[2018-05-01 13:42] LABS: ANION GAP 5 MMOL/L (8-16); BLOOD UREA NITROGEN 27 mg/dL (7-18); CALCIUM 8.5 mg/dL (8.5-10.1); CHLORIDE 108 mmol/L (98-107); CO2 28 mmol/L (21-32); CREATININE 1.9 mg/dL (0.55-1.3); GLUCOSE,RANDOM 159 mg/dL (74-106); POTASSIUM 5.1 mmol/L (3.5-5.1); SODIUM 141 mmol/L (136-145)
[2018-05-01] MEDS ORDERED: MIDAZOLAM HCL 2 MG/2 ML SINGLE DOSE VIAL ONE (14:36)
--- NOTE | 2018-05-01 14:51 | HP ---
Admitting History and Physical - Admission Chief Complaint: left avf with difficult cannulation. Pt sent to the office after HD Limitations to Obtaining History: No Limitations - Past Medical History ALMOND BLANCHER: Yes: CVA, Other (had CVA in past with full recovery) Cardiovascular: Yes: CAD, CHF, HTN, Hyperlipdemia, NM Gastrointestinal: Yes: GI Bleed Renal/: Yes: Renal Failure, Hemodialysis, Other (BUN is elevated with slight elevation of creatinine) Heme/Onc: Yes: Anemia Psych: Yes: Anxiety. No: Addictions, Bipolar, Depression, Panic, Psychosis, Schizophrenia, Other Endocrine: Yes: Diabetes Mellitus. No: Chinquapin's Disease, Busby's Disease, Diabetes Insipidus, Hyperparathyroidism, Hyperthyroidism, Hypothyroidism, Osteopenia, SIADH, Other - Past Surgical History Past Surgical History: Yes: Stent - Smoking History Smoking history: Never smoked Have you smoked in the past 12 months: No - Alcohol/Substance Use Hx Alcohol Use: No History of Substance Use: reports: None - Social History ADL: Family Assistance History of Recent Travel: No Home Medications - Allergies Allergies/Adverse Reactions: Allergies Allergy/AdvReac Type Severity Reaction Status Date / Time No Known Allergies Allergy Verified 02/12/18 21:17 - Home Medications Home Medications: Ambulatory Orders Allopurinol [Zyloprim -] 300 mg PO DAILY #30 tab 02/27/18 Aspirin Coated [Ecotrin -] 81 mg PO DAILY tablet.ec 02/27/18 Clopidogrel Bisulfate [Plavix -] 75 mg PO DAILY tablet 02/27/18 Escitalopram Oxalate [Lexapro -] 5 mg PO HS tablet 02/27/18 Insulin (Levemir) [Levemir Vial] 25 units SQ ACBK units 02/27/18 Insulin Sliding Scale [Novolog Vial Sliding Scale -] 1 vial SQ HS units Insulin Sliding Scale [Novolog Vial Sliding Scale -] 1 vial SQ TIDAC units Midodrine HCl [Proamatine -] 5 mg PO TID-MID tablet 02/27/18 Rosuvastatin [Crestor -] 10 mg PO HS tablet 02/27/18 Tamsulosin HCl [Flomax -] 0.4 mg PO HS cap.er.24h 02/27/18 Warfarin Na [Coumadin -] 4 mg PO DAILY@1800 tablet 02/27/18 Metoprolol Tartrate [Lopressor -] 12.5 mg PO BID tablet 02/28/18 Calcium Acetate [Phoslo -] 667 mg PO TIDCM 04/30/18 Enoxaparin [Lovenox -] 60 mg SQ DAILY 04/30/18 Pantoprazole Suspension [Protonix Packets For Oral Suspension -] 40 mg PO DAILY PRN 05/01/18 Review of Systems - Review of Systems Constitutional: reports: No Symptoms Eyes: reports: No Symptoms HENT: reports: No Symptoms Neck: reports: No Symptoms Cardiovascular: reports: No Symptoms Respiratory: reports: No Symptoms Gastrointestinal: reports: No Symptoms Genitourinary: reports: No Symptoms Musculoskeletal: reports: No Symptoms Integumentary: reports: No Symptoms Neurological: reports: No Symptoms Endocrine: reports: No Symptoms Hematology/Lymphatic: reports: No Symptoms Psychiatric: reports: No Symptoms Physical Examination Vital Signs: Vital Signs Temperature 98.7 F 05/01/18 13:45 Pulse Rate 71 05/01/18 13:45 Respiratory Rate 16 05/01/18 13:45 Blood Pressure 131/78 05/01/18 13:45 O2 Sat by Pulse Oximetry (%) 96 05/01/18 13:45 Constitutional: Yes: Well Nourished, No Distress, Calm Eyes: Yes: WNL, Conjunctiva Clear, EOM Intact HENT: Yes: WNL, Atraumatic, Normocephalic Neck: Yes: WNL, Supple, Trachea Midline Cardiovascular: Yes: WNL, Regular Rate and Rhythm Respiratory: Yes: WNL, Regular, CTA Bilaterally Gastrointestinal: Yes: WNL, Normal Bowel Sounds Musculoskeletal: Yes: WNL Extremities: Yes: WNL Edema: No Integumentary: Yes: WNL Neurological: Yes: WNL, Alert, Oriented ...Motor Strength: WNL Psychiatric: Yes: WNL Labs: CBC, BMP 05/01/18 13:00 Problem List - Problems (1) Dialysis AV fistula malfunction Assessment/Plan: Left AVF malfuction with difficult cannulation 1. Will do venogram today , for possible venoplasty . Code(s): T82.590A - [facility] COMPL OF SURGICALLY CREATED ARTERIOVENOUS FISTULA, INIT
[2018-05-01] MEDS ORDERED: ceFAZolin SODIUM 1 GM VIAL IVPB ONE (15:13)
[2018-05-01] MEDS ORDERED: ONDANSETRON 4 MG/2 ML VIAL IVPUSH PRN (15:21)
[2018-05-01] MEDS ORDERED: oxyCODONE HCL 5 MG TABLET PO PRN (15:21)
[2018-05-01] MEDS ORDERED: LACTATED RINGERS SOLUTION 1,000 ML IV SCH (15:30)
--- NOTE | 2018-05-01 16:18 | OP ---
Operative Note - Note: Operative Date: 05/01/18 Pre-Operative Diagnosis: Stenosis left avf Operation: Venogram, venoplasty left avf Post-Operative Diagnosis: Same as Pre-op Surgeon: Walter Huff Anesthesia: Fractional Estimated Blood Loss (mls): 30 Operative Report Dictated: Yes
[2018-05-01 17:26] VITALS: TEMP 98.5
[2018-05-01 18:22] VITALS: BP 117/55; PULSE 85
--- NOTE | 2018-05-02 10:49 | OP ---
DATE OF OPERATION: 05/01/2018 PREOPERATIVE DIAGNOSIS: Stenosis, left arteriovenous fistula with malfunction of left arteriovenous fistula. POSTOPERATIVE DIAGNOSIS: Stenosis, left arteriovenous fistula with malfunction of left arteriovenous fistula. PROCEDURE: Venogram venoplasty of left arteriovenous fistula. SURGEON: Walter Fernandez MD ANESTHESIA: Fractional. BLOOD LOSS: 30 mL. INDICATIONS: The patient is a 77-year-old male who comes in to the office due to difficult cannulation and malfunctioning of his left AV fistula. He was then booked as an outpatient for his surgery. Patient came into ambulatory surgery. Patient was consented for the procedure understanding all risks, benefits, and alternatives, and then taken to the operating room. DESCRIPTION OF PROCEDURE: Once in the operating suite, he was placed on the operating table in the supine manner, and the area of the left arm was prepped and draped in a sterile surgical manner. We then injected 10 mL of lidocaine 1% at the proximal AV fistula. We then went ahead and used our micropuncture needle and punctured the AV fistula. The puncture of the AV fistula was made using ultrasound guidance. Once the puncture was made, micropuncture wire was inserted, and a short 6-Mongolian sheath was inserted. We then shot a venogram with the AV fistula, showing that the AV fistula had multiple areas of stenosis in the proximal mid and arch of the cephalic vein, and the stenosis was also 80% to 90% each. At this point, we placed a 0.035-floppy guidewire with a MORGAN catheter and crossed all our lesions, and placed a wire into the central veins. Then, 5000 units of IV heparin were administered to the patient. We then went ahead and used a 9 x 3 [place] balloon and performed venoplasty of the entire AV fistula going from the arch of the cephalic vein all the way down to the anastomosis. Completion venogram now showed that the fistula was patent. There were no areas of recoil, there were no areas of stenosis, and there was good flow into the central veins. At this point, we used a 4-0 Biosyn stitch, and a figure-of-8 stitch was placed around the sheath, and sheath was pulled. The area was wet and dried, and Dermabond was placed. The patient tolerated the procedure with no complications. Patient transferred to PACU in stable condition. WALTER FERNANDEZ DO [id number]
== END 2018-05-01 18:24 | disposition home or self-care (01) ==
LOC: JASU-SURG 12:23
PROVIDERS: ATTEND Surgery Vascular Surgery
PROC: 05773ZZ Dilation of Right Axillary Vein, Percutaneous Approach (ICD-10-PCS; principal; 2018-05-01 13:30)
DX: T82.898A Other specified complication of vascular prosthetic devices, implants and grafts, initial encounter (principal); I12.0 Hypertensive chronic kidney disease with stage 5 chronic kidney disease or end stage renal disease; E11.22 Type 2 diabetes mellitus with diabetic chronic kidney disease; N18.6 End stage renal disease; Z99.2 Dependence on renal dialysis
CPT/HCPCS: 36415; 80048; 85610; 85730; 94760; J1644

== ENCOUNTER 2018-07-23 10:52 | Inpatient (IN) | payer OTHER, MEDICARE ==
[2018-07-23] MEDS ORDERED: methylPREDNISolone NA SUCC 125 MG/2 ML VIAL IVPB ONE (11:31)
--- NOTE | 2018-07-23 11:31 | PDOC ---
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 As per patients , the patient has been coughing but unable to bring up sputum. She states the patient is normally able to ambulate on his own. However, reports today the patient has been too weak to ambulate prompting the ED visit. She states she started the patient on Augmentin antibiotics beginning yesterday and provided the patient a nebulizer treatment at home prior to arrival. She states the patient is due for dialysis at 11 am today. The patient denies chest pain, shortness of breath, headache and dizziness. Denies nausea, vomit, diarrhea and constipation. Denies dysuria, frequency, urgency and hematuria. Allergies: NKA Surgical Hx: December 05 2017 - Renal angioplasty. 02/12/18 - Left AVF with stenosis. [place] (Jul) with multiple stent placement. PCP: Coleman Hess Cash Room Clerk: Dr Moreno Manga Artist: Dr Del Cid and Dr Smith <Simeon Hernandez - Last Filed: 07/23/18 11:51> <Sarah Posey - Last Filed: 07/23/18 13:03> - General Chief Complaint: Altered Mental Status Stated Complaint: Altered Mental Status Time Seen by Provider: 07/23/18 11:20 Past History <Simeon Hernandez - Last Filed: 07/23/18 11:51> - Past Medical History Anemia: Yes (GI BLEED) Asthma: No Cancer: No Cardiac Disorders: Yes ([place], Stents) CVA: Yes (+ CVA) COPD: No CHF: Yes Dementia: No Diabetes: Yes (IDDM) GI Disorders: Yes (GI BLEED) Disorders: Yes (BPH) HTN: Yes Hypercholesterolemia: Yes Liver Disease: No Seizures: No Thyroid Disease: No - Surgical History Abdominal Surgery: No Appendectomy: No Cardiac Surgery: Yes (multiple stents) Cholecystectomy: No Lung Surgery: No Neurologic Surgery: No Orthopedic Surgery: Yes (right shoulder sx) - Immunization History Immunization Up to Date: Yes - Suicide/Smoking/Psychosocial Hx Smoking History: Unknown if ever smoked Have you smoked in the past 12 months: No Hx Alcohol Use: No Drug/Substance Use Hx: No Substance Use Type: None Hx Substance Use Treatment: No <Sarah Posey - Last Filed: 07/23/18 13:03> - Past Medical History Allergies/Adverse Reactions: Allergies Allergy/AdvReac Type Severity Reaction Status Date / Time No Known Allergies Allergy Verified 07/23/18 11:06 Home Medications: Ambulatory Orders Aspirin Coated [Ecotrin -] 81 mg PO DAILY tablet.ec 02/27/18 Clopidogrel Bisulfate [Plavix -] 75 mg PO DAILY tablet 02/27/18 Escitalopram Oxalate [Lexapro -] 5 mg PO HS tablet 02/27/18 Insulin (Levemir) [Levemir Vial] 25 units SQ ACBK units 02/27/18 Insulin Sliding Scale [Novolog Vial Sliding Scale -] 1 vial SQ HS units Insulin Sliding Scale [Novolog Vial Sliding Scale -] 1 vial SQ TIDAC units Midodrine HCl [Proamatine -] 5 mg PO TID-MID tablet 02/27/18 Rosuvastatin [Crestor -] 10 mg PO HS tablet 02/27/18 Tamsulosin HCl [Flomax -] 0.4 mg PO HS cap.er.24h 02/27/18 Metoprolol Tartrate [Lopressor -] 12.5 mg PO BID tablet 02/28/18 Calcium Acetate [Phoslo -] 667 mg PO TIDCM 04/30/18 Warfarin Na [Coumadin -] 4 mg PO ASDIR 07/23/18 Warfarin Sodium [Coumadin] 2 mg PO ASDIR 07/23/18 Review of Systems - Review of Systems Comments:: 07/23/18 11:44 GENERAL/CONSTITUTIONAL: +Fever. +Chills. +Weakness. HEAD, EYES, EARS, NOSE AND THROAT: No change in vision. No ear pain or discharge. No sore throat. CARDIOVASCULAR: No chest pain or shortness of breath. RESPIRATORY: +Cough. No wheezing, or hemoptysis. GASTROINTESTINAL: No nausea, vomiting, diarrhea or constipation. GENITOURINARY: No dysuria, frequency, or change in urination. MUSCULOSKELETAL: No joint or muscle swelling or pain. No neck or back pain. SKIN: No rash NEUROLOGIC: No headache, vertigo, loss of consciousness, or change in strength/ sensation. ENDOCRINE: No increased thirst. No abnormal weight change. HEMATOLOGIC/LYMPHATIC: No anemia, easy bleeding, or history of blood clots. ALLERGIC/IMMUNOLOGIC: No hives or skin allergy. <Simeon Hernandez - Last Filed: 07/23/18 11:51> *Physical Exam - Vital Signs Last Vital Signs Temp Pulse Resp BP Pulse Ox 99.3 F 100 H 18 135/70 91 L 07/23/18 11:05 07/23/18 11:05 07/23/18 11:05 07/23/18 11:05 07/23/18 11:05 <Simeon Hernandez - Last Filed: 07/23/18 11:51> - Vital Signs Last Vital Signs Temp Pulse Resp BP Pulse Ox 99.3 F 100 H 18 135/70 91 L 07/23/18 11:05 07/23/18 11:05 07/23/18 11:05 07/23/18 11:05 07/23/18 11:05 - Physical Exam Comments: GENERAL: Awake, alert, and oriented, in no acute distress. Mild tachypnea. + Tactile fever. HEAD: No signs of trauma EYES: PERRLA, EOMI, sclera anicteric, conjunctiva clear ENT: Auricles normal inspection, hearing grossly normal, nares patent, oropharynx clear without exudates. Dry mucosa NECK: Normal ROM, supple, no lymphadenopathy, JVD, or masses LUNGS: Good air entry B/L with diffuse exp wheezes, prolonged exp phase. HEART: Regular rate and rhythm, normal S1 and S2, no murmurs, rubs or gallops ABDOMEN: Soft, nontender, normoactive bowel sounds. No guarding, no rebound. No masses EXTREMITIES: Normal range of motion, trace edema to shins B/L. No clubbing or cyanosis. No cords, erythema, or tenderness NEUROLOGICAL: Cranial nerves II through XII grossly intact. Normal speech. Motor and sensation intact SKIN: Warm, Dry, normal turgor, no rashes or lesions noted. <Sarah Posey - Last Filed: 07/23/18 13:03> Moderate Sedation - Procedure Monitoring Vital Signs: Procedure Monitoring Vital Signs Temperature 99.3 F 07/23/18 11:05 Pulse Rate 100 H 07/23/18 11:05 Respiratory Rate 18 07/23/18 11:05 Blood Pressure 135/70 07/23/18 11:05 O2 Sat by Pulse Oximetry (%) 91 L 07/23/18 11:05 <Simeon Hernandez - Last Filed: 07/23/18 11:51> - Procedure Monitoring Vital Signs: Procedure Monitoring Vital Signs Temperature 99.3 F 07/23/18 11:05 Pulse Rate 100 H 07/23/18 11:05 Respiratory Rate 18 07/23/18 11:05 Blood Pressure 135/70 07/23/18 11:05 O2 Sat by Pulse Oximetry (%) 91 L 07/23/18 11:05 <Sarah Posey - Last Filed: 07/23/18 13:03> ED Treatment Course - LABORATORY CBC & Chemistry Diagram: 07/23/18 11:50 07/23/18 11:50 <Sarah Posey - Last Filed: 07/23/18 13:03> Medical Decision Making - Medical Decision Making 07/23/18 11:33 Pt with history of ESRD on HD, presenting with weakness, chills, fatigue. Suspect poss pneumonia based on clinical findings. Initiated sepsis protocol. Likely admission. <Sarah Posey - Last Filed: 07/23/18 13:03> *DC/Admit/Observation/Transfer - Attestations Scribe Attestion: 07/23/18 11:45 Documentation prepared by Simeon Hernandez, acting as ophthalmic medical technologist for Sarah Posey MD. 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
[2018-07-23] MEDS ORDERED: methylPREDNISolone NA SUCC 125 MG/2 ML VIAL ONE (12:08)
[2018-07-23 12:11] LABS: VENOUS PC02 39.5 mmHg (38-52); VENOUS PH 7.38 (7.32-7.42)
[2018-07-23 12:14] LABS: BASO % 0.4 % (0-2.0); EOS % 0.2 % (0-4.5); HEMATOCRIT 35.4 % (35.4-49); HEMOGLOBIN 11.5 GM/dL (11.7-16.9); LYMPH % 9.2 % (8-40); MCH 27.4 pg (25.7-33.7); MCHC 32.6 g/dl (32.0-35.9); MEAN PLT VOLUME 11.1 fl (7.5-11.1); MONO % 9.2 % (3.8-10.2); PLATELET COUNT 83 K/MM3 (134-434); RBC 4.21 M/mm3 (4.00-5.60); RDW 17.4 % (11.9-15.9); WHITE BLOOD COUNT 5.5 K/mm3 (4.0-10.0)
--- NOTE | 2018-07-23 12:18 | EKG ---
Test Reason : Blood Pressure : / mmHG Vent. Rate : 099 BPM Atrial Rate : 099 BPM P-R Int : 182 ms QRS Dur : 096 ms QT Int : 362 ms P-R-T Axes : 047 -69 106 degrees QTc Int : 464 ms NORMAL SINUS RHYTHM LEFT AXIS DEVIATION INCOMPLETE RIGHT BUNDLE BRANCH BLOCK LEFT VENTRICULAR HYPERTROPHY WITH REPOLARIZATION ABNORMALITY INFERIOR INFARCT (CITED ON OR BEFORE 09-APR-2016) ANTEROLATERAL INFARCT (CITED ON OR BEFORE 02-JAN-2015) ABNORMAL ECG WHEN COMPARED WITH ECG OF 22-FEB-2018 09:36, PREMATURE VENTRICULAR COMPLEXES ARE NO LONGER PRESENT INCOMPLETE RIGHT BUNDLE BRANCH BLOCK IS NOW PRESENT Confirmed by GRACIELA GONZÁLES MD ([id number]) on 07/23/2018 12:18:27 PM Referred By: Confirmed By:GRACIELA GONZÁLES MD
[2018-07-23 12:24] LABS: INR 1.79 (0.83-1.09); PROTHROMBIN TIME (PATIENT) 21.2 SEC (9.7-13.0)
[2018-07-23 12:27] LABS: ACTIVATED PTT 35.3 SECONDS (25.2-36.5)
[2018-07-23] MEDS ORDERED: CEFTRIAXONE 1 GM in DEXTROSE 5%-WATER - 50 ML IVPB ONE (12:44)
[2018-07-23] MEDS ORDERED: AZITHROMYCIN IVPB 500 MG in DEXTROSE 5%-WATER - 250 ML IVPB ONE (12:44)
[2018-07-23 12:56] LABS: ALBUMIN 2.8 g/dl (3.4-5.0); ALK PHOS 112 U/L (45-117); ANION GAP 9 MMOL/L (8-16); BILIRUBIN,TOTAL 0.4 mg/dL (0.2-1); BLOOD UREA NITROGEN 63 mg/dL (7-18); CALCIUM 8.3 mg/dL (8.5-10.1); CHLORIDE 107 mmol/L (98-107); CO2 23 mmol/L (21-32); CREATININE 2.7 mg/dL (0.55-1.3); SGOT/AST 18 U/L (15-37); SGPT/ALT 27 U/L (13-61); SODIUM 139 mmol/L (136-145); TOT PROT 6.6 g/dl (6.4-8.2); URIC ACID 6.3 mg/dL (2.6-7.2)
[2018-07-23 12:58] LABS: GLUCOSE,RANDOM 453 mg/dL (74-106)
[2018-07-23] MEDS ORDERED: INSULIN (LEVEMIR) 100 UNITS/ML UNITS SQ ONE ×2 (13:01→13:24)
[2018-07-23] MEDS ORDERED: SODIUM CHLORIDE 250 ML IV PRN (13:11)
[2018-07-23] MEDS ORDERED: CEFTRIAXONE 1 GM/50 ML BAG ONE (13:14)
[2018-07-23] MEDS ORDERED: AZITHROMYCIN IVPB 500 MG/250 ML BAG IVPB ONE (13:14)
[2018-07-23] MEDS: ALBUTEROL SO4 2.5/IPRATROPIUM 0.5 INH SOL 3 ML VIAL.NEB. NEB SCH ×3 (13:15→14:00)
[2018-07-23] MEDS ORDERED: ALBUTEROL SO4 2.5/IPRATROPIUM 0.5 INH SOL 3 ML VIAL.NEB. NEB ONE (13:15)
--- NOTE | 2018-07-23 13:21 | CONSULT ---
Consult - text type - Consultation Consultation Note: Renal Consult for ESRD on HD This is a 77 year old [place] Gentleman with hx of ESRD on HD (TTS), CAD s/p PCI , CHF, Hypertension, RV Thrombus, GI bleed, DM who presented with home with weakness and admitted for suspected CHF vs. PNA. Pt last had dialysis on Friday w/o complication. reports weakness following HD on Friday but was near baseline function on Friday, however this morning he was very weak and counld not walk. No overt fevers at home. Was given Augmentin at home. Pt had a non-productive cough at home. No N/V/D. No Abd pain, No chest pain. PMhx: as above Allergies: NKDA Family hx: NC Social Hx: No T/A/D ROS: as per HPI Home Medications Medication Instructions Recorded Aspirin Coated [Ecotrin -] 81 mg PO DAILY tablet.ec 02/27/18 Clopidogrel Bisulfate [Plavix -] 75 mg PO DAILY tablet 02/27/18 Escitalopram Oxalate [Lexapro -] 5 mg PO HS tablet 02/27/18 Insulin (Levemir) [Levemir Vial] 25 units SQ ACBK units 02/27/18 Insulin Sliding Scale [Novolog 1 vial SQ HS units 02/27/18 Vial Sliding Scale -] Insulin Sliding Scale [Novolog 1 vial SQ TIDAC units 02/27/18 Vial Sliding Scale -] Midodrine HCl [Proamatine -] 5 mg PO TID-MID tablet 02/27/18 Rosuvastatin [Crestor -] 10 mg PO HS tablet 02/27/18 Tamsulosin HCl [Flomax -] 0.4 mg PO HS cap.er.24h 02/27/18 Metoprolol Tartrate [Lopressor -] 12.5 mg PO BID tablet 02/28/18 Calcium Acetate [Phoslo -] 667 mg PO TIDCM 04/30/18 Warfarin Na [Coumadin -] 4 mg PO ASDIR 07/23/18 Warfarin Sodium [Coumadin] 2 mg PO ASDIR 07/23/18 Vital Signs Temperature 99.3 F 07/23/18 11:05 Pulse Rate 96 H 07/23/18 12:26 Respiratory Rate 18 07/23/18 12:26 Blood Pressure 149/86 07/23/18 12:26 O2 Sat by Pulse Oximetry (%) 98 07/23/18 12:26 Intake & Output 07/20/18 07/21/18 07/22/18 07/23/18 23:59 23:59 23:59 23:59 Weight 63.503 kg Lethargic, awake and alert Oriented x 3 Neck supple, no JVD RRR, No M/R + rales b/l lung bocanegra soft NT/ND, no guarding Trace LE edema, no cyanosis Left arm AVF + thrill CBC, BMP 07/23/18 11:50 07/23/18 11:50 Current Medications Azithromycin 500 mg/ Dextrose 250 mls @ 250 mls/hr IVPB ONCE ONE Stop: 07/23/18 13:43 Sodium Chloride (Normal Saline -) 250 mls @ 3,000 mls/hr IV PRN PRN PRN Reason: Hypotension during Dialysis Stop: 07/24/18 13:11 77 year old [place] Gentleman with hx of ESRD on HD (TTS), CAD s/p PCI, CHF, Hypertension, RV Thrombus, GI bleed, DM who presented with home with weakness and admitted for suspected CHF vs. PNA. #ESRD on HD #Lethargy + Weakess r/o infection vs. hypoxia from CHF/Fluid overload #CHF/Fluid overload #Suspected infiltrate/PNA on chest x-ray #Chronic anemia #Chronic thrombocytopenia #DM on insulin Given pt with chest congestion and CHF on CXR will plan for HD today with UF as tolerated Blood cultures collected Emeperic abx as per ER for suspected PNA Check ammonia levels Hgb stable, no AMY needed will avoid heparin given low plt counts Continue insulin sliding scale Would check CT head to r/o infarction/bleed given low pts on pt on multiple agents for anti-coagulation Thank you Will follow Florencio Del Cid DO
--- NOTE | 2018-07-23 15:57 | CON.CARD ---
Consult Consult Specialty:: cardiology Reason for Consultation:: weaknes; hx [place], coronary stents, diastolic CHF, CVA - History of Present Illness Chief Complaint: Pt feels wealk; denies chest pain. History of Present Illness: The patient is a 77 year old male (b. 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 As per patients , the patient has been coughing but unable to bring up sputum. She states the patient is normally able to ambulate on his own. However, reports today the patient has been too weak to ambulate prompting the ED visit. She states she started the patient on Augmentin antibiotics beginning yesterday and provided the patient a nebulizer treatment at home prior to arrival. She states the patient is due for dialysis at 11 am today. 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 No: Addictions, Bipolar, Depression, Panic, Psychosis, Schizophrenia, Other Endocrine: Yes: Diabetes Mellitus. No: [place]'s Disease, [place]'s Disease, Diabetes Insipidus, Hyperparathyroidism, Hyperthyroidism, Hypothyroidism, Osteopenia, SIADH, Other - Past Surgical History Past Surgical History: Yes: Stent - Alcohol/Substance Use Hx Alcohol Use: No History of Substance Use: reports: None - Smoking History Smoking history: Unknown if ever smoked Have you smoked in the past 12 months: No - Social History Usual Living Arrangement: With Spouse ADL: Family Assistance History of Recent Travel: No Home Medications - Allergies Allergies/Adverse Reactions: Allergies Allergy/AdvReac Type Severity Reaction Status Date / Time No Known Allergies Allergy Verified 07/23/18 11:06 - Home Medications Home Medications: Ambulatory Orders Aspirin Coated [Ecotrin -] 81 mg PO DAILY tablet.ec 02/27/18 Clopidogrel Bisulfate [Plavix -] 75 mg PO DAILY tablet 02/27/18 Escitalopram Oxalate [Lexapro -] 5 mg PO HS tablet 02/27/18 Insulin (Levemir) [Levemir Vial] 25 units SQ ACBK units 02/27/18 Insulin Sliding Scale [Novolog Vial Sliding Scale -] 1 vial SQ HS units Insulin Sliding Scale [Novolog Vial Sliding Scale -] 1 vial SQ TIDAC units Midodrine HCl [Proamatine -] 5 mg PO TID-MID tablet 02/27/18 Rosuvastatin [Crestor -] 10 mg PO HS tablet 02/27/18 Tamsulosin HCl [Flomax -] 0.4 mg PO HS cap.er.24h 02/27/18 Metoprolol Tartrate [Lopressor -] 12.5 mg PO BID tablet 02/28/18 Calcium Acetate [Phoslo -] 667 mg PO TIDCM 04/30/18 Warfarin Na [Coumadin -] 4 mg PO ASDIR 07/23/18 Warfarin Sodium [Coumadin] 2 mg PO ASDIR 07/23/18 Family Disease History - Family Disease History Family History: Denies Review of Systems - Review of Systems Constitutional: reports: Weakness Eyes: reports: No Symptoms HENT: reports: No Symptoms Neck: reports: No Symptoms Cardiovascular: reports: No Symptoms Respiratory: reports: Cough Gastrointestinal: reports: No Symptoms Genitourinary: reports: No Symptoms Breasts: reports: No Symptoms Reported Musculoskeletal: reports: Muscle Weakness Integumentary: reports: No Symptoms Neurological: reports: Weakness Endocrine: reports: No Symptoms Hematology/Lymphatic: reports: No Symptoms Psychiatric: reports: Anxiety, Depression - Risk Factors Known Risk Factors: Yes: Age, Gender, Hypercholesterolemia, Hypertension, Physical Inactivity, Prior [place] /Emb Stroke, Other (diastolic CHF; CAD-->coronary stent) Vital Signs: Vital Signs Temperature 99.3 F 07/23/18 11:05 Pulse Rate 96 H 07/23/18 12:26 Respiratory Rate 18 07/23/18 12:26 Blood Pressure 149/86 07/23/18 12:26 O2 Sat by Pulse Oximetry (%) 98 07/23/18 12:26 Constitutional: Yes: Anxious Eyes: Yes: WNL HENT: Yes: WNL Neck: Yes: WNL Respiratory: Yes: Regular Gastrointestinal: Yes: Soft Renal/: No: Anuria Cardiovascular: Yes: Regular Rate and Rhythm JVD: No Carotid Bruit: No PMI: Non-Displaced Heart Sounds: Yes: S1, S2 Murmur: Yes: Systolic Murmur, Grade 2 Musculoskeletal: Yes: Muscle Weakness Extremities: Yes: Cool Edema: No Peripheral Pulses WNL: Yes Integumentary: Yes: WNL Neurological: Yes: Alert, Oriented, Weakness Psychiatric: Yes: Other - Other Data Labs, Other Data: CBC, BMP 07/23/18 11:50 07/23/18 11:50 INR, PTT INR 1.79 (0.83-1.09) H 07/23/18 11:50 Troponin, BNP 07/23/18 11:50 Troponin I 0.03 Troponin, BNP 07/23/18 11:50 Troponin I 0.03 Abnormal Lab Results 07/24/18 07/24/18 07/24/18 05:30 05:30 05:30 Hgb 11.0 L Hct 33.8 L RDW 17.3 H Plt Count 82 L PT with INR 23.00 H INR 1.94 H BUN 47 H Creatinine 2.5 H Random Glucose 462 H* Calcium 8.3 L Urine Protein Urine Glucose (UA) 07/24/18 06:09 Hgb Hct RDW Plt Count PT with INR INR BUN Creatinine Random Glucose Calcium Urine Protein 1+ H Urine Glucose (UA) 3+ H Echo: Report Reviewed Prior Cardiac Procedures: PTCA with Stent Ejection Fraction %: LVEF > or = 40 % Imaging - Results Chest X-ray: Image Reviewed EKG: Image Reviewed Problem List - Problems (1) Diabetes Assessment/Plan: consider SGLT2 inhibitor for DM (reduction in cardiac events). Code(s): E11.9 - TYPE 2 DIABETES MELLITUS WITHOUT COMPLICATIONS (2) ESRD (end stage renal disease) Assessment/Plan: for hemodialysis today. Code(s): N18.6 - END STAGE RENAL DISEASE (3) ESRD (end stage renal disease) on dialysis Code(s): N18.6 - END STAGE RENAL DISEASE; Z99.2 - DEPENDENCE ON RENAL DIALYSIS (4) Hx of heart artery stent Code(s): Z95.5 - PRESENCE OF CORONARY ANGIOPLASTY IMPLANT AND GRAFT (5) Hyperlipidemia Assessment/Plan: on rosuvastatin. Code(s): E78.5 - HYPERLIPIDEMIA, UNSPECIFIED Qualifiers: Hyperlipidemia type: unspecified Qualified Code(s): E78.5 - Hyperlipidemia , unspecified (6) Hypotension Assessment/Plan: on midodrine. f/u ortostatic vital signs. Avoid dehydration. Code(s): I95.9 - HYPOTENSION, UNSPECIFIED Qualifiers: Hypotension type: unspecified hypotension type Qualified Code(s): I95.9 - Hypotension, unspecified (7) Hypothyroid Assessment/Plan: f/u TFTs. Code(s): E03.9 - HYPOTHYROIDISM, UNSPECIFIED (8) Status post myocardial infarction Assessment/Plan: on ASA and statin; metoprolol. Code(s): I25.2 - OLD MYOCARDIAL INFARCTION (9) Acute on chronic diastolic CHF (congestive heart failure) Assessment/Plan: On metoprolol. Problematic adding ACEI or ARB (elevated K) F/u BUN/Cr, electrolytes, daily weight, Is and Os. Code(s): I50.33 - ACUTE ON CHRONIC DIASTOLIC (CONGESTIVE) HEART FAILURE (10) Weakness Code(s): R53.1 - WEAKNESS
[2018-07-23 16:44] LABS: CHOLESTEROL 116 mg/dL (50-200); HDL CHOLESTEROL 35 mg/dL (40-60); TRIGLYCERIDES 93 mg/dL (0-150)
[2018-07-23] MEDS ORDERED: WARFARIN NA 2 MG TABLET (UD) PO ONE (20:33)
[2018-07-23] MEDS: ROSUVASTATIN CA 10 MG TABLET (FP) PO SCH (22:45)
[2018-07-23] MEDS: METOPROLOL TARTRATE 25 MG TABLET (FP) PO SCH (22:47)
[2018-07-24 06:42] LABS: URINE APPEARANCE SLCLOUDY; URINE BILIRUBIN NEGATIVE (<2.0 mg/dL); URINE COLOR DKYELLOW; URINE GLUCOSE (UA) 3+ (NEGATIVE); URINE KETONE NEGATIVE (NEGATIVE); URINE LEUK ESTERASE NEGATIVE (NEGATIVE); URINE NITRITE NEGATIVE (NEGATIVE); URINE PROTEIN 1+ (NEGATIVE); URINE UROBILINOGEN NEGATIVE mg/dL (0.2-1.0)
[2018-07-24 06:56] LABS: HEMATOCRIT 33.8 % (35.4-49); MCHC 32.5 g/dl (32.0-35.9); MEAN CELL VOLUME 83.1 fl (80-96); PLATELET COUNT 82 K/MM3 (134-434); RBC 4.07 M/mm3 (4.00-5.60); RDW 17.3 % (11.9-15.9); WHITE BLOOD COUNT 4.9 K/mm3 (4.0-10.0)
[2018-07-24] MEDS ORDERED: INSULIN SLIDING SCALE (NOVOLOG) 1 VIAL SQ SCH (07:00)
[2018-07-24] MEDS: INSULIN SLIDING SCALE (NOVOLOG) 1 VIAL SQ SCH ×3 (07:01→17:22)
[2018-07-24 07:08] LABS: URINE HYALINE CAST 23 /lpf; URINE MUCUS RARE
[2018-07-24 07:16] LABS: INR 1.94 (0.83-1.09)
[2018-07-24 07:56] LABS: ANION GAP 9 MMOL/L (8-16); BLOOD UREA NITROGEN 47 mg/dL (7-18); CALCIUM 8.3 mg/dL (8.5-10.1); CHLORIDE 102 mmol/L (98-107); CO2 27 mmol/L (21-32); CREATININE 2.5 mg/dL (0.55-1.3); POTASSIUM 4.9 mmol/L (3.5-5.1); SODIUM 138 mmol/L (136-145)
[2018-07-24 07:58] LABS: GLUCOSE,RANDOM 462 mg/dL (74-106)
[2018-07-24] MEDS: TAMSULOSIN HCL 0.4 MG CAP PO SCH (08:46)
[2018-07-24] MEDS: METOPROLOL TARTRATE 25 MG TABLET (FP) PO SCH ×2 (09:31→21:34)
[2018-07-24] MEDS: ASPIRIN COATED 81 MG TABLET.EC PO SCH (09:31)
[2018-07-24] MEDS: ESCITALOPRAM OXALATE 10 MG TABLET (FP) PO SCH (09:31)
[2018-07-24] MEDS: MIDODRINE HCL 5 MG TABLET PO SCH ×3 (09:31→18:06)
[2018-07-24] MEDS ORDERED: CLOPIDOGREL BISULFATE 75 MG TABLET (FP) PO SCH ×2 (10:00→12:00)
--- NOTE | 2018-07-24 11:08 | CON.PULM ---
Consult Consult Specialty:: PULMONARY Referred by:: SOPHIA Reason for Consultation:: SOB - History of Present Illness Chief Complaint: SOB/NONPRODUCTIVE COUGH History of Present Illness: The patient is a 77 year old male, with a significant PMH of CVA, CAD s/p 5 stents, CHF, HTN, HLD, [place] (Jul 2017), right ventricle thrombus (currently on plavix, ASA, and coumadin), GI Bleed, Renal Insufficiency, Anxiety, Diabetes Mellitus, ESRD on dialysis (//) who presents to the emergency department with 3 days of general malaise, non productive cough and weakness. As per patients , the patient has been coughing but unable to bring up sputum. She states the patient is normally able to ambulate on his own. However, reports today the patient has been too weak to ambulate prompting the ED visit. She states she started the patient on Augmentin antibiotics beginning yesterday and provided the patient a nebulizer treatment at home prior to arrival. She states the patient is due for dialysis at 11 am today. The patient denies chest pain, shortness of breath, headache and dizziness. Denies nausea, vomit, diarrhea and constipation. 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 No: Addictions, Bipolar, Depression, Panic, Psychosis, Schizophrenia, Other Endocrine: Yes: Diabetes Mellitus. No: Angelo's Disease, Laquita's Disease, Diabetes Insipidus, Hyperparathyroidism, Hyperthyroidism, Hypothyroidism, Osteopenia, SIADH, Other - Past Surgical History Past Surgical History: Yes: Stent - Alcohol/Substance Use Hx Alcohol Use: No History of Substance Use: reports: None - Smoking History Smoking history: Unknown if ever smoked Have you smoked in the past 12 months: No - Social History Usual Living Arrangement: With Spouse ADL: Family Assistance Place of : Other History of Recent Travel: No Home Medications - Allergies Allergies/Adverse Reactions: Allergies Allergy/AdvReac Type Severity Reaction Status Date / Time No Known Allergies Allergy Verified 07/23/18 11:06 - Home Medications Home Medications: Ambulatory Orders Aspirin Coated [Ecotrin -] 81 mg PO DAILY tablet.ec 02/27/18 Clopidogrel Bisulfate [Plavix -] 75 mg PO DAILY tablet 02/27/18 Escitalopram Oxalate [Lexapro -] 5 mg PO HS tablet 02/27/18 Insulin (Levemir) [Levemir Vial] 25 units SQ ACBK units 02/27/18 Insulin Sliding Scale [Novolog Vial Sliding Scale -] 1 vial SQ HS units Insulin Sliding Scale [Novolog Vial Sliding Scale -] 1 vial SQ TIDAC units Midodrine HCl [Proamatine -] 5 mg PO TID-MID tablet 02/27/18 Rosuvastatin [Crestor -] 10 mg PO HS tablet 02/27/18 Tamsulosin HCl [Flomax -] 0.4 mg PO HS cap.er.24h 02/27/18 Metoprolol Tartrate [Lopressor -] 12.5 mg PO BID tablet 02/28/18 Calcium Acetate [Phoslo -] 667 mg PO TIDCM 04/30/18 Warfarin Na [Coumadin -] 4 mg PO ASDIR 07/23/18 Warfarin Sodium [Coumadin] 2 mg PO ASDIR 07/23/18 Family Disease History - Family Disease History Family History: Unable to Obtain Review of Systems - Review of Systems Constitutional: reports: Lethargy, Loss of Appetite. denies: Fever Eyes: denies: Blurred Vision HENT: denies: Difficult Swallowing Neck: denies: Decreased ROM Cardiovascular: reports: Shortness of Breath. denies: Chest Pain Respiratory: reports: Cough, Exercise Intolerance, SOB on Exertion. denies: Hemoptysis, Wheezing Gastrointestinal: denies: Abdominal Pain Genitourinary: denies: Burning Physical Exam Vital Sings: Vital Signs Temperature 97.8 F 07/24/18 10:00 Pulse Rate 56 L 07/24/18 10:00 Respiratory Rate 20 07/24/18 10:00 Blood Pressure 109/62 07/24/18 10:00 O2 Sat by Pulse Oximetry (%) 98 07/24/18 10:00 Constitutional: Yes: Calm Eyes: Yes: EOM Intact HENT: Yes: Normocephalic Neck: Yes: Trachea Midline Cardiovascular: Yes: S1, S2 Respiratory: Yes: Diminished, Dullness (BASES) Gastrointestinal: Yes: Soft Edema: LLE: 1+, RLE: 1+ Neurological: Yes: Alert Labs: CBC, BMP 07/24/18 05:30 07/24/18 05:30 REST OF LABS REVIEWED Imaging - Results Chest X-ray: Report Reviewed, Image Reviewed EKG: Report Reviewed, Image Reviewed Problem List - Problems (1) Diabetes Code(s): E11.9 - TYPE 2 DIABETES MELLITUS WITHOUT COMPLICATIONS (2) ESRD (end stage renal disease) Code(s): N18.6 - END STAGE RENAL DISEASE (3) AV fistula Code(s): I77.0 - ARTERIOVENOUS FISTULA, ACQUIRED (4) Acute bronchitis Code(s): J20.9 - ACUTE BRONCHITIS, UNSPECIFIED (5) Acute on chronic systolic CHF (congestive heart failure) Code(s): I50.23 - ACUTE ON CHRONIC SYSTOLIC (CONGESTIVE) HEART FAILURE (6) Anemia Code(s): D64.9 - ANEMIA, UNSPECIFIED Qualifiers: Chronic kidney disease stage: on chronic dialysis Qualified Code(s): N18.6 - End stage renal disease; D63.1 - Anemia in chronic kidney disease; Z99.2 - Dependence on renal dialysis (7) Anxiety and depression Code(s): F41.8 - OTHER SPECIFIED ANXIETY DISORDERS (8) BPH (benign prostatic hypertrophy) Code(s): N40.0 - BENIGN PROSTATIC HYPERPLASIA WITHOUT LOWER URINRY TRACT SYMP (9) CAD (coronary artery disease) Code(s): I25.10 - ATHSCL HEART DISEASE OF [place] CORONARY ARTERY W/O ANG PCTRS (10) CVA (cerebral infarction) Code(s): I63.9 - CEREBRAL INFARCTION, UNSPECIFIED Qualifiers: Cerebral infarction mechanism: unspecified mechanism Qualified Code(s): I63.9 - Cerebral infarction, unspecified (11) Congestive heart failure Code(s): I50.9 - HEART FAILURE, UNSPECIFIED (12) Fluid overload Code(s): E87.70 - FLUID OVERLOAD, UNSPECIFIED Qualifiers: Hypervolemia type: unspecified Qualified Code(s): E87.70 - Fluid overload, unspecified (13) Hyperlipidemia Code(s): E78.5 - HYPERLIPIDEMIA, UNSPECIFIED Qualifiers: Hyperlipidemia type: pure hypercholesterolemia Qualified Code(s): E78.00 - Pure hypercholesterolemia, unspecified; E78.0 - Pure hypercholesterolemia (14) LV (left ventricular) mural thrombus Code(s): [id number] - (15) Status post myocardial infarction Code(s): I25.2 - OLD MYOCARDIAL INFARCTION Assessment/Plan DIFFICULT TO DIAGNOSE PNEUMONIA BASED ON CHRONICALLY ABNORMAL APPEARING CXR PATIENT HAS NONPRODUCTIVE COUGH/NO WBC ELEVATION/NORMAL LACTIC ACID/SPO2 98% ON 2L/M/AND DOES NOT CLINICALLY APPEAR TO BE ACUTELY ILL AGREE WITH HOLDING ANTIBIOTICS FOR NOW CHECK PANCULURE CONTINUE O2 SUPPLEMENTATION SCHEDULED FOR HD IN AM WILL FOLLOW Branden BALTAZAR MD
[2018-07-24] MEDS ORDERED: CEFTRIAXONE 1 GM in DEXTROSE 5%-WATER - 50 ML IVPB ONE (12:00)
[2018-07-24] MEDS ORDERED: CEFTRIAXONE 1 G/50 ML PREMIX 50 ML IVPB ONE (12:00)
[2018-07-24] MEDS ORDERED: cefTRIAXone SODIUM 1 GM VIAL ONE (12:10)
[2018-07-24] MEDS ORDERED: DEXTROSE 5%-WATER - 50 ML IVPB ONE (12:11)
[2018-07-24] MEDS: CALCIUM ACETATE 667 MG CAPSULE (FP) PO SCH ×2 (12:22→17:19)
[2018-07-24] MEDS ORDERED: SODIUM CHLORIDE 250 ML IV PRN (14:55)
[2018-07-24] MEDS ORDERED: ALBUTEROL SO4 2.5/IPRATROPIUM 0.5 INH SOL 3 ML VIAL.NEB. NEB PRN (14:55)
--- NOTE | 2018-07-24 15:01 | PN ---
Progress Note (short form) - Note Progress Note: Renal follow for ESRD with fluid overload vs. PNA Pt seen and examined at the bedside laying flat in bed, no complaints no sob, cp, abd pain continues to have cough no fevers s/p dialysis yesterday Vital Signs Temperature 98.3 F 07/24/18 14:00 Pulse Rate 58 L 07/24/18 14:00 Respiratory Rate 20 07/24/18 10:00 Blood Pressure 117/54 L 07/24/18 14:00 O2 Sat by Pulse Oximetry (%) 98 07/24/18 10:00 Intake & Output 07/21/18 07/22/18 07/23/18 07/24/18 23:59 23:59 23:59 23:59 Intake Total 480 Output Total 200 Balance 280 Weight 63.503 kg 66.134 kg NAD Neck supple, no JVD RRR, No M/R + rales b/l lung bocanegra soft NT/ND, no guarding Trace LE edema, no cyanosis Left arm AVF + thrill CBC, BMP 07/24/18 05:30 07/24/18 05:30 Current Medications Albuterol/Ipratropium (Duoneb -) 1 amp NEB Q6H PRN PRN Reason: SHORTNESS OF BREATH Aspirin (Ecotrin -) 81 mg PO DAILY [facility] [place] Last Admin: 07/24/18 09:31 Dose: 81 mg Calcium Acetate (Phoslo -) 667 mg PO TIDCM [facility] [place] Last Admin: 07/24/18 12:22 Dose: 667 mg Clopidogrel Bisulfate (Plavix -) 75 mg PO DAILY [facility] [place] Last Admin: 07/24/18 12:22 Dose: 75 mg Escitalopram Oxalate (Lexapro -) 5 mg PO DAILY [facility] [place] Last Admin: 07/24/18 09:31 Dose: 5 mg Sodium Chloride (Normal Saline -) 250 mls @ 3,000 mls/hr IV PRN PRN PRN Reason: Hypotension during Dialysis Stop: 07/25/18 14:55 Insulin Aspart (Novolog Vial Sliding Scale -) 1 vial SQ TIDAC [facility] [place]; Protocol Last Admin: 07/24/18 11:18 Dose: 5 units Metoprolol Tartrate (Lopressor -) 12.5 mg PO BID [facility] [place] Last Admin: 07/24/18 09:31 Dose: Not Given Midodrine (Proamatine -) 5 mg PO TID-MID [facility] [place] Last Admin: 07/24/18 14:53 Dose: Not Given Rosuvastatin Calcium (Crestor -) 10 mg PO HS [facility] [place] Last Admin: 07/23/18 22:45 Dose: 10 mg Tamsulosin HCl (Flomax -) 0.4 mg PO DAILY@0830 [facility] [place] Last Admin: 07/24/18 08:46 Dose: 0.4 mg Torsemide (Demadex -) 80 mg PO DAILY [facility] [place] Warfarin Sodium (Coumadin -) 4 mg PO DAILY@1800 [facility] [place] 77 year old Gentleman with hx of ESRD on HD (TTS), CAD s/p PCI, CHF, Hypertension, RV Thrombus, GI bleed, DM who presented with home with weakness and admitted for suspected CHF vs. PNA. #ESRD on HD #Lethargy + Weakness r/o infection vs. hypoxia from CHF/Fluid overload #CHF/Fluid overload #Suspected infiltrate/PNA on chest x-ray #Chronic anemia #Chronic thrombocytopenia #DM on insulin clinically improved s/p HD/UF and Abx no urgent indication for dialysis today will plan next treatment tomorrow with aggressive UF as tolerated Continue Abx for now f/u cultures Hgb stable Low salt Neb for mucous congestion Dose all meds for ESRD on HD Florencio Del Cid DO
[2018-07-24] MEDS: TORSEMIDE 20 MG TABLET (FP) PO SCH (15:19)
--- NOTE | 2018-07-24 15:23 | CONSULT ---
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 As per patients , the patient has been coughing but unable to bring up sputum. She states the patient is normally able to ambulate on his own. However, reports today the patient has been too weak to ambulate prompting the ED visit. She states she started the patient on Augmentin antibiotics beginning yesterday and provided the patient a nebulizer treatment at home prior to arrival. She states the patient is due for dialysis at 11 am today. The patient denies chest pain, shortness of breath, headache and dizziness. Denies nausea, vomit, diarrhea and constipation. Denies dysuria, frequency, urgency and hematuria. 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 No: Addictions, Bipolar, Depression, Panic, Psychosis, Schizophrenia, Other Endocrine: Yes: Diabetes Mellitus. No: [place]'s Disease, Laquita's Disease, Diabetes Insipidus, Hyperparathyroidism, Hyperthyroidism, Hypothyroidism, Osteopenia, SIADH, Other - Past Surgical History Past Surgical History: Yes: Stent - Alcohol/Substance Use Hx Alcohol Use: No History of Substance Use: reports: None - Smoking History Smoking history: Unknown if ever smoked Have you smoked in the past 12 months: No - Social History Usual Living Arrangement: With Spouse ADL: Family Assistance History of Recent Travel: No Home Medications - Allergies Allergies/Adverse Reactions: Allergies Allergy/AdvReac Type Severity Reaction Status Date / Time No Known Allergies Allergy Verified 07/23/18 11:06 - Home Medications Home Medications: Ambulatory Orders Aspirin Coated [Ecotrin -] 81 mg PO DAILY tablet.ec 02/27/18 Clopidogrel Bisulfate [Plavix -] 75 mg PO DAILY tablet 02/27/18 Escitalopram Oxalate [Lexapro -] 5 mg PO HS tablet 02/27/18 Insulin (Levemir) [Levemir Vial] 25 units SQ ACBK units 02/27/18 Insulin Sliding Scale [Novolog Vial Sliding Scale -] 1 vial SQ HS units Insulin Sliding Scale [Novolog Vial Sliding Scale -] 1 vial SQ TIDAC units Midodrine HCl [Proamatine -] 5 mg PO TID-MID tablet 02/27/18 Rosuvastatin [Crestor -] 10 mg PO HS tablet 02/27/18 Tamsulosin HCl [Flomax -] 0.4 mg PO HS cap.er.24h 02/27/18 Metoprolol Tartrate [Lopressor -] 12.5 mg PO BID tablet 02/28/18 Calcium Acetate [Phoslo -] 667 mg PO TIDCM 04/30/18 Warfarin Na [Coumadin -] 4 mg PO ASDIR 07/23/18 Warfarin Sodium [Coumadin] 2 mg PO ASDIR 07/23/18 Physical Exam Vital Signs: Vital Signs Temperature 98.3 F 07/24/18 14:00 Pulse Rate 58 L 07/24/18 14:00 Respiratory Rate 20 07/24/18 10:00 Blood Pressure 117/54 L 07/24/18 14:00 O2 Sat by Pulse Oximetry (%) 98 07/24/18 10:00 Labs: CBC, BMP 07/24/18 05:30 07/24/18 05:30
--- NOTE | 2018-07-24 16:34 | CONSULT ---
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 Pt was admitted and treated with IV steroids, Nebulizers, Abx with improvement in symptoms. Pt currently in bed, comfortable, but still with cough. Pt referred for management of blood sugar. As per Dr Davila pt gets Levemir 25 units daily at home and 2 to 3 units of Novolog with meals. Even 2 units of Novolog at night leads to hypoglycemia during the morning hours. 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 No: Addictions, Bipolar, Depression, Panic, Psychosis, Schizophrenia, Other Endocrine: Yes: Diabetes Mellitus. No: Angelo's Disease, [place]'s Disease, Diabetes Insipidus, Hyperparathyroidism, Hyperthyroidism, Hypothyroidism, Osteopenia, SIADH, Other - Past Surgical History Past Surgical History: Yes: Stent - Alcohol/Substance Use Hx Alcohol Use: No History of Substance Use: reports: None - Smoking History Smoking history: Unknown if ever smoked Have you smoked in the past 12 months: No - Social History Usual Living Arrangement: With Spouse ADL: Family Assistance History of Recent Travel: No Home Medications - Allergies Allergies/Adverse Reactions: Allergies Allergy/AdvReac Type Severity Reaction Status Date / Time No Known Allergies Allergy Verified 07/23/18 11:06 - Home Medications Home Medications: Ambulatory Orders Aspirin Coated [Ecotrin -] 81 mg PO DAILY tablet.ec 02/27/18 Clopidogrel Bisulfate [Plavix -] 75 mg PO DAILY tablet 02/27/18 Escitalopram Oxalate [Lexapro -] 5 mg PO HS tablet 02/27/18 Insulin (Levemir) [Levemir Vial] 25 units SQ ACBK units 02/27/18 Insulin Sliding Scale [Novolog Vial Sliding Scale -] 1 vial SQ HS units Insulin Sliding Scale [Novolog Vial Sliding Scale -] 1 vial SQ TIDAC units Midodrine HCl [Proamatine -] 5 mg PO TID-MID tablet 02/27/18 Rosuvastatin [Crestor -] 10 mg PO HS tablet 02/27/18 Tamsulosin HCl [Flomax -] 0.4 mg PO HS cap.er.24h 02/27/18 Metoprolol Tartrate [Lopressor -] 12.5 mg PO BID tablet 02/28/18 Calcium Acetate [Phoslo -] 667 mg PO TIDCM 04/30/18 Warfarin Na [Coumadin -] 4 mg PO ASDIR 07/23/18 Warfarin Sodium [Coumadin] 2 mg PO ASDIR 07/23/18 Review of Systems - Review of Systems Constitutional: reports: Malaise, Weakness Eyes: reports: No Symptoms HENT: reports: No Symptoms Neck: reports: No Symptoms Cardiovascular: reports: Shortness of Breath Respiratory: reports: Cough, SOB Gastrointestinal: reports: No Symptoms Genitourinary: reports: No Symptoms Breasts: reports: No Symptoms Reported Musculoskeletal: reports: No Symptoms Integumentary: reports: No Symptoms Neurological: reports: No Symptoms Endocrine: reports: No Symptoms Physical Exam Vital Signs: Vital Signs Temperature 98.3 F 07/24/18 14:00 Pulse Rate 58 L 07/24/18 14:00 Respiratory Rate 20 07/24/18 10:00 Blood Pressure 117/54 L 07/24/18 14:00 O2 Sat by Pulse Oximetry (%) 98 07/24/18 10:00 Constitutional: Yes: No Distress, Calm Eyes: Yes: Conjunctiva Clear, EOM Intact HENT: Yes: Atraumatic, Normocephalic Neck: Yes: Supple, Trachea Midline Cardiovascular: Yes: S1, S2 Respiratory: Yes: Regular, Rhonchi (scattered) Gastrointestinal: Yes: Normal Bowel Sounds, Soft Renal/: Yes: WNL Musculoskeletal: Yes: WNL Edema: Yes Edema: LLE: Trace, RLE: Trace Neurological: Yes: Alert, Oriented Labs: CBC, BMP 07/24/18 05:30 07/24/18 05:30 Imaging - Results Chest X-ray: Report Reviewed Assessment/Plan AP: T2DM with hyperglycemia: Blood sugar 300s in the hospital ESRD on HD CHF/Fluid overload Suspected infiltrate/PNA on chest x-ray Chronic anemia BGM TIDAC Continue Levemir 25 units daily in the morning. Novolog coverage only premeals, none at HS as pt is very sensitive with episodes of hypoglycemia during the night even with 2 or 3 units of Novolog Will F/U
--- NOTE | 2018-07-24 17:17 | HP ---
Admitting History and Physical - Primary Care Physician PCP: Coleman Hess - Admission Chief Complaint: mental status changes History of Present Illness: 77 year old M with hx of DM, ESRD on HD (TTS), CAD s/p PCI, CHF, Hypertensine heart Dz, RV Thrombus, s/p GI bleed, who presented from home with confusion & weakness. states that he'd developed a cough several days following Dialysis (this past Friday) before admission and she had been Tx'ing him with neb tx; and Augmentin but he grew more listless & confused to the point that he became incohrent and could not walk. He now has a dry cough. No N/V/D, Abd pain , or chest pain voiced. Prior to this, he has been at home with , and has been ambulatory. 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 No: Addictions, Bipolar, Depression, Panic, Psychosis, Schizophrenia, Other Endocrine: Yes: Diabetes Mellitus. No: [place]'s Disease, Laquita's Disease, Diabetes Insipidus, Hyperparathyroidism, Hyperthyroidism, Hypothyroidism, Osteopenia, SIADH, Other - Past Surgical History Past Surgical History: Yes: Stent - Smoking History Smoking history: Unknown if ever smoked Have you smoked in the past 12 months: No - Alcohol/Substance Use Hx Alcohol Use: No History of Substance Use: reports: None - Social History ADL: Family Assistance History of Recent Travel: No Home Medications - Allergies Allergies/Adverse Reactions: Allergies Allergy/AdvReac Type Severity Reaction Status Date / Time No Known Allergies Allergy Verified 07/23/18 11:06 - Home Medications Home Medications: Ambulatory Orders Aspirin Coated [Ecotrin -] 81 mg PO DAILY tablet.ec 02/27/18 Clopidogrel Bisulfate [Plavix -] 75 mg PO DAILY tablet 02/27/18 Escitalopram Oxalate [Lexapro -] 5 mg PO HS tablet 02/27/18 Insulin (Levemir) [Levemir Vial] 25 units SQ ACBK units 02/27/18 Insulin Sliding Scale [Novolog Vial Sliding Scale -] 1 vial SQ HS units Insulin Sliding Scale [Novolog Vial Sliding Scale -] 1 vial SQ TIDAC units Midodrine HCl [Proamatine -] 5 mg PO TID-MID tablet 02/27/18 Rosuvastatin [Crestor -] 10 mg PO HS tablet 02/27/18 Tamsulosin HCl [Flomax -] 0.4 mg PO HS cap.er.24h 02/27/18 Metoprolol Tartrate [Lopressor -] 12.5 mg PO BID tablet 02/28/18 Calcium Acetate [Phoslo -] 667 mg PO TIDCM 04/30/18 Warfarin Na [Coumadin -] 4 mg PO ASDIR 07/23/18 Warfarin Sodium [Coumadin] 2 mg PO ASDIR 07/23/18 Family Disease History - Family Disease History Family History: Unremarkable Review of Systems - Review of Systems Constitutional: reports: No Symptoms Eyes: reports: No Symptoms HENT: reports: No Symptoms Neck: reports: No Symptoms Cardiovascular: reports: No Symptoms Respiratory: reports: Cough Gastrointestinal: reports: No Symptoms Genitourinary: reports: No Symptoms Breasts: reports: No Symptoms Reported Musculoskeletal: reports: No Symptoms Integumentary: reports: No Symptoms Neurological: reports: No Symptoms Endocrine: reports: No Symptoms Hematology/Lymphatic: reports: No Symptoms Psychiatric: reports: No Symptoms Physical Examination Vital Signs: Vital Signs Temperature 98.3 F 07/24/18 14:00 Pulse Rate 58 L 07/24/18 14:00 Respiratory Rate 20 07/24/18 10:00 Blood Pressure 117/54 L 07/24/18 14:00 O2 Sat by Pulse Oximetry (%) 98 07/24/18 10:00 Findings/Remarks: skin--discolored LUE head--NC eyes--midline; no icterus oral--no mucosal lesions, no droop neck--no masses lungs--rhonchi bilat, and some wheezing but breaths unlabored abd--benign back--no spinal column tenderness ext--trace edema of the LE's with stasis changes; dimnished pedal pulses; palpable trill LUE neuro--awake, verbal; moves all extrem on command; good eye contact; able to verbalize and make needs known; no gross foical motor deficit Labs: CBC, BMP 07/24/18 05:30 07/24/18 05:30 Imaging - Results Chest X-ray: Report Reviewed Problem List - Problems (1) URI (upper respiratory infection) Assessment/Plan: exhibited coughing for several days [employer]; and became progressively more ill inspite of receiving oral Abs and Neb tx. CXR suggested the possibility of PNA, and he was Rx'd Abs. He improved notably as his MS improved and appeared less toxic. PLAN: Abs; IV steroids Code(s): J06.9 - ACUTE UPPER RESPIRATORY INFECTION, UNSPECIFIED Qualifiers: URI type: unspecified URI Qualified Code(s): J06.9 - Acute upper respiratory infection, unspecified (2) ESRD (end stage renal disease) Assessment/Plan: on HD; as per renal consult Code(s): N18.6 - END STAGE RENAL DISEASE (3) Diabetes 1.5, managed as type 1 Assessment/Plan: insulin requiring; see Endo note Code(s): E13.9 - OTHER SPECIFIED DIABETES MELLITUS WITHOUT COMPLICATIONS (4) Acute bronchitis Assessment/Plan: VS PNA; will cont Abs Code(s): J20.9 - ACUTE BRONCHITIS, UNSPECIFIED Qualifiers: Bronchitis organism: unspecified organism Qualified Code(s): J20.9 - Acute bronchitis, unspecified (5) Chronic diastolic (congestive) heart failure Assessment/Plan: remedied by HD; PLAN: cont current meds Code(s): I50.32 - CHRONIC DIASTOLIC (CONGESTIVE) HEART FAILURE (6) Atrial flutter Assessment/Plan: controlled with BB; and is on a/c Code(s): I48.92 - UNSPECIFIED ATRIAL FLUTTER Qualifiers: Atrial flutter type: unspecified Qualified Code(s): I48.92 - Unspecified atrial flutter (7) Ventricular mural thrombus Assessment/Plan: not new; on a/c Code(s): I51.3 - INTRACARDIAC THROMBOSIS, NOT ELSEWHERE CLASSIFIED (8) Hypotension Assessment/Plan: Tx with midodrine Code(s): I95.9 - HYPOTENSION, UNSPECIFIED Qualifiers: Hypotension type: unspecified hypotension type Qualified Code(s): I95.9 - Hypotension, unspecified (9) Hyperlipidemia Assessment/Plan: cont statin Code(s): E78.5 - HYPERLIPIDEMIA, UNSPECIFIED Qualifiers: Hyperlipidemia type: unspecified Qualified Code(s): E78.5 - Hyperlipidemia , unspecified (10) CVA (cerebral infarction) Assessment/Plan: non acute; old, with residual cogn deficits Code(s): I63.9 - CEREBRAL INFARCTION, UNSPECIFIED Qualifiers: Cerebral infarction mechanism: unspecified mechanism Qualified Code(s): I63.9 - Cerebral infarction, unspecified Assessment/Plan chronically ill 77 YOM who was admitted due to change in MS and [facility] DM with abnorla CXR to suggest acute infection. ~~~~~~~~~~~~~~~~~~~~~~~~~~~~ Dr Jean
[2018-07-24] MEDS: WARFARIN NA 2 MG TABLET (UD) PO SCH (17:19)
[2018-07-24] MEDS ORDERED: methylPREDNISolone NA SUCC 40 MG/1 ML VIAL IVPB ONE (17:37)
[2018-07-24] MEDS: ROSUVASTATIN CA 10 MG TABLET (FP) PO SCH (21:29)
--- NOTE | 2018-07-25 00:30 | PN ---
Progress Note, Physician Chief Complaint: Pt OOB in chair; feels weak, with occasional cough. History of Present Illness: The patient is a 77 year old male (b. 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 As per patients , the patient has been coughing but unable to bring up sputum. She states the patient is normally able to ambulate on his own. However, reports today the patient has been too weak to ambulate prompting the ED visit. She states she started the patient on Augmentin antibiotics beginning yesterday and provided the patient a nebulizer treatment at home prior to arrival. She states the patient is due for dialysis at 11 am today. - Current Medication List Current Medications: Active Medications Albuterol/Ipratropium (Duoneb -) 1 amp NEB Q6H PRN PRN Reason: SHORTNESS OF BREATH Last Admin: 07/24/18 15:49 Dose: 1 amp Aspirin (Ecotrin -) 81 mg PO DAILY [facility] Last Admin: 07/24/18 09:31 Dose: 81 mg Calcium Acetate (Phoslo -) 667 mg PO TIDCM [facility] Last Admin: 07/24/18 17:19 Dose: 667 mg Escitalopram Oxalate (Lexapro -) 5 mg PO DAILY [facility] Last Admin: 07/24/18 09:31 Dose: 5 mg Sodium Chloride (Normal Saline -) 250 mls @ 3,000 mls/hr IV PRN PRN PRN Reason: Hypotension during Dialysis Stop: 07/25/18 14:55 Ceftriaxone Sodium 1 gm/ (Dextrose) 50 mls @ 100 mls/hr IVPB ONCE ONE Stop: 07/25/18 08:29 Insulin Aspart (Novolog Vial Sliding Scale -) 1 vial SQ TIDAC [facility]; Protocol Last Admin: 07/24/18 17:22 Dose: Not Given Insulin Detemir (Levemir Vial) 25 units SQ AM [facility] Methylprednisolone Sodium Succinate (Solu-Medrol -) 80 mg IVPUSH DAILY [facility] Metoprolol Tartrate (Lopressor -) 12.5 mg PO BID [facility] Last Admin: 07/24/18 21:34 Dose: 12.5 mg Midodrine (Proamatine -) 5 mg PO TID-MID [facility] Last Admin: 07/24/18 18:06 Dose: Not Given Rosuvastatin Calcium (Crestor -) 10 mg PO HS [facility] Last Admin: 07/24/18 21:29 Dose: 10 mg Tamsulosin HCl (Flomax -) 0.4 mg PO DAILY@0830 [facility] Last Admin: 07/24/18 08:46 Dose: 0.4 mg Torsemide (Demadex -) 80 mg PO DAILY [facility] Last Admin: 07/24/18 15:19 Dose: 80 mg Warfarin Sodium (Coumadin -) 4 mg PO DAILY@1800 [facility] Last Admin: 07/24/18 17:19 Dose: 4 mg - Objective Vital Signs: Vital Signs Temperature 98.0 F 07/24/18 20:28 Pulse Rate 71 07/24/18 20:28 Respiratory Rate 20 07/24/18 20:28 Blood Pressure 116/54 L 07/24/18 20:28 O2 Sat by Pulse Oximetry (%) 98 07/24/18 22:00 Constitutional: Yes: Anxious Eyes: Yes: WNL HENT: Yes: WNL Neck: Yes: WNL Cardiovascular: Yes: Regular Rate and Rhythm Respiratory: Yes: Diminished, Rales, SOB on Exertion Gastrointestinal: Yes: Soft ...Rectal Exam: Yes: Deferred Genitourinary: Yes: Anuria Breast(s): Yes: WNL Musculoskeletal: Yes: Muscle Weakness Extremities: Yes: Cool Edema: No Peripheral Pulses WNL: Yes Integumentary: Yes: WNL Neurological: Yes: Alert, Oriented, Weakness Psychiatric: Yes: Other Labs: CBC, BMP 07/24/18 05:30 07/24/18 05:30 INR, PTT INR 1.94 (0.83-1.09) H 07/24/18 05:30 - ....Imaging Other: Image Reviewed (telemetry: NSR) Problem List - Problems (1) Diabetes Assessment/Plan: consider SGLT2 inhibitor for DM (reduction in cardiac events). Code(s): E11.9 - TYPE 2 DIABETES MELLITUS WITHOUT COMPLICATIONS (2) ESRD (end stage renal disease) Assessment/Plan: for hemodialysis 3x/week. Code(s): N18.6 - END STAGE RENAL DISEASE (3) Hx of heart artery stent Code(s): Z95.5 - PRESENCE OF CORONARY ANGIOPLASTY IMPLANT AND GRAFT (4) Hyperlipidemia Code(s): E78.5 - HYPERLIPIDEMIA, UNSPECIFIED Qualifiers: Hyperlipidemia type: unspecified Qualified Code(s): E78.5 - Hyperlipidemia , unspecified (5) Hypotension Assessment/Plan: on midodrine. f/u ortostatic vital signs. Avoid dehydration. Code(s): I95.9 - HYPOTENSION, UNSPECIFIED Qualifiers: Hypotension type: unspecified hypotension type Qualified Code(s): I95.9 - Hypotension, unspecified (6) Hypothyroid Assessment/Plan: f/u TFTs. Code(s): E03.9 - HYPOTHYROIDISM, UNSPECIFIED (7) Status post myocardial infarction Assessment/Plan: on ASA and statin; metoprolol. Code(s): I25.2 - OLD MYOCARDIAL INFARCTION (8) Acute on chronic diastolic CHF (congestive heart failure) Assessment/Plan: On metoprolol, torsemide. Problematic adding ACEI or ARB (elevated K) On antibiotic. F/u BUN/Cr, electrolytes, daily weight, Is and Os. Code(s): I50.33 - ACUTE ON CHRONIC DIASTOLIC (CONGESTIVE) HEART FAILURE (9) Weakness Code(s): R53.1 - WEAKNESS (10) BPH (benign prostatic hypertrophy) Assessment/Plan: on Flomax. Code(s): N40.0 - BENIGN PROSTATIC HYPERPLASIA WITHOUT LOWER URINRY TRACT SYMP (11) LV (left ventricular) mural thrombus Assessment/Plan: on warfarin; keep INR 2-3. Code(s): [id number] - (12) Anxiety and depression Assessment/Plan: on SSRI. Code(s): F41.8 - OTHER SPECIFIED ANXIETY DISORDERS
[2018-07-25] MEDS: INSULIN SLIDING SCALE (NOVOLOG) 1 VIAL SQ SCH ×4 (05:50→17:51)
[2018-07-25 06:02] LABS: HEMATOCRIT 34.5 % (35.4-49); HEMOGLOBIN 11.1 GM/dL (11.7-16.9); MCH 27.1 pg (25.7-33.7); MCHC 32.2 g/dl (32.0-35.9); MEAN CELL VOLUME 84.1 fl (80-96); MEAN PLT VOLUME 10.4 fl (7.5-11.1); PLATELET COUNT 80 K/MM3 (134-434); RDW 17.4 % (11.9-15.9); WHITE BLOOD COUNT 4.9 K/mm3 (4.0-10.0)
[2018-07-25 06:36] LABS: INR 2.56 (0.83-1.09); PROTHROMBIN TIME (PATIENT) 30.5 SEC (9.7-13.0)
[2018-07-25] MEDS: MIDODRINE HCL 5 MG TABLET PO SCH ×4 (06:48→18:42)
[2018-07-25 07:49] LABS: ANION GAP 11 MMOL/L (8-16); BLOOD UREA NITROGEN 90 mg/dL (7-18); CALCIUM 8.2 mg/dL (8.5-10.1); CHLORIDE 99 mmol/L (98-107); CO2 24 mmol/L (21-32); CREATININE 3.5 mg/dL (0.55-1.3); POTASSIUM 5.7 mmol/L (3.5-5.1); SODIUM 134 mmol/L (136-145)
[2018-07-25 07:50] LABS: GLUCOSE,RANDOM 556 mg/dL (74-106)
[2018-07-25] MEDS ORDERED: CEFTRIAXONE 1 GM in DEXTROSE 5%-WATER - 50 ML IVPB ONE (08:00)
[2018-07-25] MEDS: CALCIUM ACETATE 667 MG CAPSULE (FP) PO SCH ×3 (08:00→17:48)
[2018-07-25] MEDS ORDERED: SODIUM CHLORIDE 250 ML IV PRN (09:34)
[2018-07-25] MEDS ORDERED: cefTRIAXone SODIUM 1 GM VIAL ONE (09:42)
[2018-07-25] MEDS ORDERED: DEXTROSE 5%-WATER - 50 ML IVPB ONE (09:42)
--- NOTE | 2018-07-25 10:00 | PN ---
Progress Note, Physician Chief Complaint: Weekend coverage for [place] Patient seen and examined. He denies chest pain, SOB or dizziness. receiving HD. While on unit, prior to receiving AM Lopressor, he was in AF in 120-140s. Also noted to have a 4 second pause, asymptomatic. Fluid removal was stopped - Current Medication List Current Medications: Active Medications Albumin Human (Albumin Human 25%) 12.5 gm IVPB Q30M [facility] Stop: 07/25/18 11:16 Albuterol/Ipratropium (Duoneb -) 1 amp NEB Q6H PRN PRN Reason: SHORTNESS OF BREATH Last Admin: 07/24/18 15:49 Dose: 1 amp Aspirin (Ecotrin -) 81 mg PO DAILY [facility] Last Admin: 07/24/18 09:31 Dose: 81 mg Calcium Acetate (Phoslo -) 667 mg PO TIDCM [facility] Last Admin: 07/25/18 08:00 Dose: Not Given Escitalopram Oxalate (Lexapro -) 5 mg PO DAILY [facility] Last Admin: 07/24/18 09:31 Dose: 5 mg Sodium Chloride (Normal Saline -) 250 mls @ 3,000 mls/hr IV PRN PRN PRN Reason: Hypotension during Dialysis Stop: 07/26/18 09:34 Insulin Aspart (Novolog Vial Sliding Scale -) 1 vial SQ TIDAC [facility]; Protocol Last Admin: 07/25/18 05:50 Dose: 5 units Insulin Detemir (Levemir Vial) 25 units SQ DAILY@1000 [facility] Methylprednisolone Sodium Succinate (Solu-Medrol -) 80 mg IVPUSH DAILY [facility] Metoprolol Tartrate (Lopressor -) 12.5 mg PO BID [facility] Last Admin: 07/24/18 21:34 Dose: 12.5 mg Midodrine (Proamatine -) 5 mg PO TID-MID [facility] Last Admin: 07/25/18 06:48 Dose: 5 mg Rosuvastatin Calcium (Crestor -) 10 mg PO HS [facility] Last Admin: 07/24/18 21:29 Dose: 10 mg Tamsulosin HCl (Flomax -) 0.4 mg PO DAILY@0830 [facility] Last Admin: 07/24/18 08:46 Dose: 0.4 mg Torsemide (Demadex -) 80 mg PO DAILY [facility] Last Admin: 07/24/18 15:19 Dose: 80 mg Warfarin Sodium (Coumadin -) 4 mg PO DAILY@1800 [facility] Last Admin: 07/24/18 17:19 Dose: 4 mg - Objective Vital Signs: Vital Signs Temperature 97.8 F 07/25/18 05:32 Pulse Rate 64 07/25/18 05:32 Respiratory Rate 18 07/25/18 05:32 Blood Pressure 123/74 07/25/18 05:32 O2 Sat by Pulse Oximetry (%) 98 07/24/18 22:00 Constitutional: Yes: No Distress, Calm Cardiovascular: Yes: Pulse Irregular Respiratory: Yes: Other (decreased breath sounds bilaterally) Gastrointestinal: Yes: Soft Edema: No Neurological: Yes: Alert, Oriented Labs: CBC, BMP 07/25/18 05:30 07/25/18 05:30 INR, PTT INR 2.56 (0.83-1.09) H 07/25/18 05:30 - ....Imaging EKG: Image Reviewed (TELE: PAF, currently in 120s, asymptomatic 4 second pause noted.) Assessment/Plan IMP: PAF w/ intermittent RVR and documented pause 4 seconds, asx Tachy-stacia syndrome CAD s/p NH, normal EF (50-55%), chronic LV thrombus. ESRD REC: Case discussed with Dr. Moreno- patient has not been known to have pauses previously. 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 For now, continue current dose of Metoprolol Tartrate and observe on telemetry. Will follow. Coverage for Dr. Moreno.
[2018-07-25] MEDS: ALBUMIN HUMAN 25% 12.5 GM/50 ML VIAL IVPB SCH ×3 (10:20→11:40)
--- NOTE | 2018-07-25 10:56 | PN ---
Progress Note (short form) - Note Progress Note: PULMONARY PRESENTLY ON HD WILL HAVE 2.5 KG REMOVED APPEARS COMFORTABLE OFFERS NO COMPLAINTS NO SIGNIFICANT CHANGE IN EXAM LABS/MEDS/NOTES/IMAGES REVIEWED DM CRF/HD TIW ACUTE BRONCHITIS ANEMIA BPH CAD CVA CONTINUE CURRENT TREATMENT PLAN Branden BALTAZAR MD Problem List - Problems (1) Diabetes Code(s): E11.9 - TYPE 2 DIABETES MELLITUS WITHOUT COMPLICATIONS (2) ESRD (end stage renal disease) Code(s): N18.6 - END STAGE RENAL DISEASE (3) AV fistula Code(s): I77.0 - ARTERIOVENOUS FISTULA, ACQUIRED (4) Acute bronchitis Code(s): J20.9 - ACUTE BRONCHITIS, UNSPECIFIED Qualifiers: Bronchitis organism: unspecified organism Qualified Code(s): J20.9 - Acute bronchitis, unspecified (5) Anemia Code(s): D64.9 - ANEMIA, UNSPECIFIED Qualifiers: Chronic kidney disease stage: on chronic dialysis Qualified Code(s): N18.6 - End stage renal disease; D63.1 - Anemia in chronic kidney disease; Z99.2 - Dependence on renal dialysis (6) Anxiety and depression Code(s): F41.8 - OTHER SPECIFIED ANXIETY DISORDERS (7) BPH (benign prostatic hypertrophy) Code(s): N40.0 - BENIGN PROSTATIC HYPERPLASIA WITHOUT LOWER URINRY TRACT SYMP (8) CAD (coronary artery disease) Code(s): I25.10 - ATHSCL HEART DISEASE OF [place] CORONARY ARTERY W/O ANG PCTRS (9) CVA (cerebral infarction) Code(s): I63.9 - CEREBRAL INFARCTION, UNSPECIFIED Qualifiers: Cerebral infarction mechanism: unspecified mechanism Qualified Code(s): I63.9 - Cerebral infarction, unspecified (10) Congestive heart failure Code(s): I50.9 - HEART FAILURE, UNSPECIFIED (11) Fluid overload Code(s): E87.70 - FLUID OVERLOAD, UNSPECIFIED Qualifiers: Hypervolemia type: unspecified Qualified Code(s): E87.70 - Fluid overload, unspecified (12) Hyperlipidemia Code(s): E78.5 - HYPERLIPIDEMIA, UNSPECIFIED Qualifiers: Hyperlipidemia type: unspecified Qualified Code(s): E78.5 - Hyperlipidemia , unspecified (13) LV (left ventricular) mural thrombus Code(s): [id number] - (14) Status post myocardial infarction Code(s): I25.2 - OLD MYOCARDIAL INFARCTION
--- NOTE | 2018-07-25 10:59 | PN ---
Progress Note (short form) - Note Progress Note: Renal follow for ESRD with fluid overload vs. PNA Pt seen and examined during dialysis BP was marginal and HR elevated to 130s UF was held, albumin given Bp improved, HR remains high Total UF of 2.5L removed pt w/o any acute complaints Vital Signs Temperature 97.8 F 07/25/18 05:32 Pulse Rate 64 07/25/18 05:32 Respiratory Rate 18 07/25/18 05:32 Blood Pressure 123/74 07/25/18 05:32 O2 Sat by Pulse Oximetry (%) 98 07/24/18 22:00 NAD Neck supple, no JVD RRR, No M/R dec BS soft NT/ND, no guarding Trace LE edema, no cyanosis Left arm AVF + thrill CBC, BMP 07/25/18 05:30 07/25/18 05:30 Current Medications Albumin Human (Albumin Human 25%) 12.5 gm IVPB Q30M [facility] Stop: 07/25/18 11:16 Albuterol/Ipratropium (Duoneb -) 1 amp NEB Q6H PRN PRN Reason: SHORTNESS OF BREATH Last Admin: 07/24/18 15:49 Dose: 1 amp Aspirin (Ecotrin -) 81 mg PO DAILY [facility] Last Admin: 07/24/18 09:31 Dose: 81 mg Calcium Acetate (Phoslo -) 667 mg PO TIDCM [facility] Last Admin: 07/25/18 08:00 Dose: Not Given Escitalopram Oxalate (Lexapro -) 5 mg PO DAILY [facility] Last Admin: 07/24/18 09:31 Dose: 5 mg Sodium Chloride (Normal Saline -) 250 mls @ 3,000 mls/hr IV PRN PRN PRN Reason: Hypotension during Dialysis Stop: 07/26/18 09:34 Insulin Aspart (Novolog Vial Sliding Scale -) 1 vial SQ TIDAC [facility]; Protocol Last Admin: 07/25/18 05:50 Dose: 5 units Insulin Detemir (Levemir Vial) 25 units SQ DAILY@1000 [facility] Methylprednisolone Sodium Succinate (Solu-Medrol -) 80 mg IVPUSH DAILY [facility] Metoprolol Tartrate (Lopressor -) 12.5 mg PO BID [facility] Last Admin: 07/24/18 21:34 Dose: 12.5 mg Midodrine (Proamatine -) 5 mg PO TID-MID [facility] Last Admin: 07/25/18 06:48 Dose: 5 mg Rosuvastatin Calcium (Crestor -) 10 mg PO HS [facility] Last Admin: 07/24/18 21:29 Dose: 10 mg Tamsulosin HCl (Flomax -) 0.4 mg PO DAILY@0830 [facility] Last Admin: 07/24/18 08:46 Dose: 0.4 mg Torsemide (Demadex -) 80 mg PO DAILY [facility] Last Admin: 07/24/18 15:19 Dose: 80 mg Warfarin Sodium (Coumadin -) 4 mg PO DAILY@1800 [facility] Last Admin: 07/24/18 17:19 Dose: 4 mg 77 year old Gentleman with hx of ESRD on HD (TTS), CAD s/p PCI, CHF, Hypertension, RV Thrombus, GI bleed, DM who presented with home with weakness and admitted for suspected CHF vs. PNA. #ESRD on HD #Lethargy + Weakness r/o infection vs. hypoxia from CHF/Fluid overload #CHF/Fluid overload #Suspected infiltrate/PNA on chest x-ray #Chronic anemia #Chronic thrombocytopenia #DM on insulin overall clinically improved had HD this am however UF was limited by low BP and elevated HR, still was able to remove 2.5L Continue Abx and steroids as per primary Cardiology following, continue metoprolol as ordered Florencio Del Cid DO
--- NOTE | 2018-07-25 11:11 | PN ---
Progress Note (short form) - Note Progress Note: Undergoing dialysis Feels better Vital Signs Period Temp Pulse Resp BP Sys/Simons Pulse Ox Last 24 Hr 97.6 F-98.3 F 56-71 16-20 116-123/54-74 95-98 PE: AOx3 Neck: Supple, No JVD HEENT: EOMI Lungs: CTA CVS: S1S2 Abd: Benign Ext: Trace edema CMP Sodium 134 mmol/L (136-145) L 07/25/18 05:30 Potassium 5.7 mmol/L (3.5-5.1) H 07/25/18 05:30 Chloride 99 mmol/L (98-107) 07/25/18 05:30 Carbon Dioxide 24 mmol/L (21-32) 07/25/18 05:30 Anion Gap 11 MMOL/L (8-16) 07/25/18 05:30 BUN 90 mg/dL (7-18) H 07/25/18 05:30 Creatinine 3.5 mg/dL (0.55-1.3) H 07/25/18 05:30 Creat Clearance w eGFR 17.02 (>60) 07/25/18 05:30 POC Glucometer 235 UNITS (80-120) 07/24/18 16:53 Random Glucose 556 mg/dL (74-106) H* 07/25/18 05:30 Hemoglobin A1c % 12.2 % (4.2-6.3) H 07/23/18 17:50 Lactic Acid 0.4 mmol/L (0.4-2.0) 07/23/18 18:00 Uric Acid 6.3 mg/dL (2.6-7.2) 07/23/18 11:50 Calcium 8.2 mg/dL (8.5-10.1) L 07/25/18 05:30 Total Bilirubin 0.4 mg/dL (0.2-1) 07/23/18 11:50 AST 18 U/L (15-37) 07/23/18 11:50 ALT 27 U/L (13-61) 07/23/18 11:50 Alkaline Phosphatase 112 U/L (45-117) 07/23/18 11:50 Ammonia 41.05 umol/L (11-32) H 07/23/18 17:50 Troponin I 0.03 ng/ml (0.00-0.05) 07/23/18 11:50 B-Natriuretic Peptide 56701.5 pg/ml (5-450) H 07/23/18 17:50 Total Protein 6.6 g/dl (6.4-8.2) 07/23/18 11:50 Albumin 2.8 g/dl (3.4-5.0) L 07/23/18 11:50 Triglycerides 93 mg/dL (0-150) 07/23/18 14:45 Cholesterol 116 mg/dL (50-200) 07/23/18 14:45 Total LDL Cholesterol 62 mg/dL (5-100) 07/23/18 14:45 HDL Cholesterol 35 mg/dL (40-60) L 07/23/18 14:45 TSH 2.50 uIU/ml (0.358-3.74) D 07/23/18 14:45 Free T4 1.15 ng/dl (0.76-1.16) 07/23/18 14:45 Free T3 1.7 pg/ml (2.0-4.4) L 07/23/18 14:45 Current Medications Generic Name Dose Route Start Last Admin Trade Name Freq PRN Reason Stop Dose Admin Albumin Human 12.5 gm 07/25/18 09:45 Albumin Human 25% IVPB 07/25/18 11:16 Q30M [facility] Albuterol/Ipratropium 1 amp 07/24/18 14:55 07/24/18 15:49 Duoneb - NEB 1 amp Q6H PRN Administration SHORTNESS OF BREATH Aspirin 81 mg 07/24/18 10:00 07/24/18 09:31 Ecotrin - PO 81 mg DAILY [facility] Administration Calcium Acetate 667 mg 07/24/18 12:00 07/25/18 08:00 Phoslo - PO Not Given TIDCM [facility] Escitalopram Oxalate 5 mg 07/24/18 10:00 07/24/18 09:31 Lexapro - PO 5 mg DAILY [facility] Administration Sodium Chloride 250 mls @ 3,000 mls/hr 07/25/18 09:34 Normal Saline - IV 07/26/18 09:34 PRN PRN Hypotension during Dialysis Insulin Aspart 1 vial 07/24/18 07:00 07/25/18 05:50 Novolog Vial Sliding Scale - SQ 5 units TIDAC [facility] Administration Protocol Insulin Detemir 25 units 07/25/18 10:00 Levemir Vial SQ DAILY@1000 [facility] Methylprednisolone Sodium Succinate 80 mg 07/25/18 10:00 Solu-Medrol - IVPUSH DAILY [facility] Metoprolol Tartrate 12.5 mg 07/23/18 22:00 07/24/18 21:34 Lopressor - PO 12.5 mg BID [facility] Administration Midodrine 5 mg 07/24/18 10:00 07/25/18 06:48 Proamatine - PO 5 mg TID-MID [facility] Administration Rosuvastatin Calcium 10 mg 07/23/18 22:00 07/24/18 21:29 Crestor - PO 10 mg HS [facility] Administration Tamsulosin HCl 0.4 mg 07/24/18 08:30 07/24/18 08:46 Flomax - PO 0.4 mg DAILY@0830 [facility] Administration Torsemide 80 mg 07/24/18 15:00 07/24/18 15:19 Demadex - PO 80 mg DAILY [facility] Administration Warfarin Sodium 4 mg 07/24/18 18:00 07/24/18 17:19 Coumadin - PO 4 mg DAILY@1800 [facility] Administration AP: T2DM with hyperglycemia: Blood sugar 300s in the hospital ESRD on HD CHF/Fluid overload Suspected infiltrate/PNA on chest x-ray Chronic anemia Blood sugar fluctuating and high from IV steroids BGM TIDAC Continue Levemir 25 units daily in the morning. Novolog coverage only premeals, none at HS as pt is very sensitive with episodes of hypoglycemia during the night even with 2 or 3 units of Novolog Will F/U
[2018-07-25 11:14] LABS: HBSAG SCREEN Negative (Negative); HEP A AB, IGM Negative (Negative); HEP B CORE AB, TOT Negative (Negative)
[2018-07-25] MEDS: INSULIN (LEVEMIR) 100 UNITS/ML UNITS SQ SCH (11:34)
[2018-07-25] MEDS: methylPREDNISolone NA SUCC 40 MG/1 ML VIAL IVPUSH SCH (11:35)
[2018-07-25] MEDS: METOPROLOL TARTRATE 25 MG TABLET (FP) PO SCH ×2 (11:51→22:36)
[2018-07-25] MEDS: ASPIRIN COATED 81 MG TABLET.EC PO SCH (12:27)
[2018-07-25] MEDS: TAMSULOSIN HCL 0.4 MG CAP PO SCH (12:27)
[2018-07-25] MEDS: ESCITALOPRAM OXALATE 10 MG TABLET (FP) PO SCH (12:30)
[2018-07-25] MEDS: TORSEMIDE 20 MG TABLET (FP) PO SCH (12:33)
--- NOTE | 2018-07-25 13:22 | DS ---
Physical Examination Vital Signs: Vital Signs Temperature 97.8 F 07/25/18 05:32 Pulse Rate 130 H 07/25/18 11:20 Respiratory Rate 18 07/25/18 11:20 Blood Pressure 127/86 07/25/18 11:20 O2 Sat by Pulse Oximetry (%) 96 07/25/18 10:00 Constitutional: Yes: No Distress, Calm Eyes: Yes: Conjunctiva Clear Neck: Yes: Supple Cardiovascular: Yes: Tachycardia Respiratory: Yes: Diminished Gastrointestinal: Yes: Normal Bowel Sounds Extremities: Yes: WNL Edema: Yes Edema: LLE: 1+, RLE: 1+ Integumentary: Yes: WNL Neurological: Yes: WNL, Alert ...Motor Strength: WNL Psychiatric: Yes: WNL Labs: CBC, BMP 07/25/18 05:30 07/25/18 05:30 INR, PTT INR 2.56 (0.83-1.09) H 07/25/18 05:30 Discharge Summary Reason For Visit: PNEUMONIA Current Active Problems Acute on chronic diastolic CHF (congestive heart failure) (Acute) Diabetes 1.5, managed as type 1 (Acute) ESRD (end stage renal disease) (Acute) Pneumonia (Acute) URI (upper respiratory infection) (Acute) Ventricular mural thrombus (Acute) Weakness (Acute) toxic metabolic on HD Atrial flutter hypotension chronic use of anticoag Procedures: Principal: hemodialysis Hospital Course: 77 year old M with hx of DM, ESRD on HD (TTS), CAD s/p PCI, CHF, Hypertensine heart Dz, RV Thrombus, s/p past GI bleed, who presented from home with confusion & weakness. states that he'd developed a cough several days following Dialysis (this past Friday) before admission and she had been Tx'ing him with neb tx; and Augmentin but he grew more listless & confused to the point that he became incohrent and could not walk. He improved notably once he was given IV abs and steroids. CXR seem to suggest PNA but unclear as it could also be 2nd fluid build up (has chronic failure). He was dialized today and 2.5 L were removed but this was complicated by SVT in the 130's. This does not usually happen post dialysis. His BB was held predialysis but was now given. The othjer contributing factors were the Neb Tx and IV steroids. His glucose mandi over 500, but this was largely 2nd to IV steroids he'd gotten today and yesterday. The plan would be to d/c home in AM, on oral Abs once HR normalizes and is seen by his Renal MD. Condition: Improved - Instructions Diet, Activity, Other Instructions: as before Referrals: Coleman Hess MD [Primary Care Provider] - Disposition: HOME - Home Medications Comprehensive Discharge Medication List: Ambulatory Orders Aspirin Coated [Ecotrin -] 81 mg PO DAILY tablet.ec 02/27/18 Escitalopram Oxalate [Lexapro -] 5 mg PO HS tablet 02/27/18 Insulin (Levemir) [Levemir Vial] 25 units SQ ACBK units 02/27/18 Insulin Sliding Scale [Novolog Vial Sliding Scale -] 1 vial SQ HS units Insulin Sliding Scale [Novolog Vial Sliding Scale -] 1 vial SQ TIDAC units Midodrine HCl [Proamatine -] 5 mg PO TID-MID tablet 02/27/18 Rosuvastatin [Crestor -] 10 mg PO HS tablet 02/27/18 Tamsulosin HCl [Flomax -] 0.4 mg PO HS cap.er.24h 02/27/18 Metoprolol Tartrate [Lopressor -] 12.5 mg PO BID tablet 02/28/18 Calcium Acetate [Phoslo -] 667 mg PO TIDCM 04/30/18 Warfarin Na [Coumadin -] 4 mg PO ASDIR 07/23/18 Warfarin Sodium [Coumadin] 2 mg PO ASDIR 07/23/18 Cefuroxime Axetil [Ceftin -] 250 mg PO BID #14 tablet 07/25/18 Torsemide [Demadex -] 80 mg PO DAILY #30 tablet 07/25/18
[2018-07-25] MEDS: WARFARIN NA 2 MG TABLET (UD) PO SCH (17:48)
[2018-07-25 22:03] VITALS: BMI 21.4
[2018-07-25] MEDS: ROSUVASTATIN CA 10 MG TABLET (FP) PO SCH (22:36)
[2018-07-26] MEDS: INSULIN SLIDING SCALE (NOVOLOG) 1 VIAL SQ SCH (06:47)
[2018-07-26 06:50] LABS: INR 3.82 (0.83-1.09); PROTHROMBIN TIME (PATIENT) 45.7 SEC (9.7-13.0)
[2018-07-26 07:07] LABS: BASO % 0.1 % (0-2.0); HEMATOCRIT 34.1 % (35.4-49); HEMOGLOBIN 11.1 GM/dL (11.7-16.9); LYMPH % 9.1 % (8-40); MCH 26.8 pg (25.7-33.7); MCHC 32.6 g/dl (32.0-35.9); MONO % 7.4 % (3.8-10.2); NEUT % 83.4 % (42.8-82.8); PLATELET COUNT 100 K/MM3 (134-434); RBC 4.16 M/mm3 (4.00-5.60); RDW 16.7 % (11.9-15.9)
[2018-07-26] MEDS ORDERED: DEXTROSE 5%-WATER - 50 ML IVPB ONE (08:36)
[2018-07-26] MEDS ORDERED: cefTRIAXone SODIUM 1 GM VIAL ONE (08:36)
[2018-07-26] MEDS: ESCITALOPRAM OXALATE 10 MG TABLET (FP) PO SCH (09:05)
[2018-07-26] MEDS: TAMSULOSIN HCL 0.4 MG CAP PO SCH (09:05)
[2018-07-26] MEDS: METOPROLOL TARTRATE 25 MG TABLET (FP) PO SCH (09:05)
[2018-07-26] MEDS: ASPIRIN COATED 81 MG TABLET.EC PO SCH (09:05)
[2018-07-26] MEDS: CALCIUM ACETATE 667 MG CAPSULE (FP) PO SCH (09:05)
[2018-07-26] MEDS: TORSEMIDE 20 MG TABLET (FP) PO SCH (09:06)
[2018-07-26] MEDS: INSULIN (LEVEMIR) 100 UNITS/ML UNITS SQ SCH (09:09)
--- NOTE | 2018-07-26 09:50 | PN ---
Progress Note, Physician Chief Complaint: seen and examined () at bedside TELE: NSR, no further pauses - Current Medication List Current Medications: Active Medications Albuterol/Ipratropium (Duoneb -) 1 amp NEB Q6H PRN PRN Reason: SHORTNESS OF BREATH Last Admin: 07/24/18 15:49 Dose: 1 amp Aspirin (Ecotrin -) 81 mg PO DAILY [facility] BEDS AT [facility] Last Admin: 07/26/18 09:05 Dose: 81 mg Calcium Acetate (Phoslo -) 667 mg PO TIDCM [facility]CLUDE 234 BEDS AT THE [facility] Last Admin: 07/26/18 09:05 Dose: 667 mg Escitalopram Oxalate (Lexapro -) 5 mg PO DAILY [facility] 234 BEDS AT [facility] Last Admin: 07/26/18 09:05 Dose: 5 mg Ceftriaxone Sodium 1 gm/ (Dextrose) 50 mls @ 100 mls/hr IVPB ONCE ONE Stop: 07/26/18 10:29 Last Admin: 07/26/18 09:06 Dose: 100 mls/hr Insulin Aspart (Novolog Vial Sliding Scale -) 1 vial SQ [facility]; Protocol Last Admin: 07/26/18 06:47 Dose: 6 units Insulin Detemir (Levemir Vial) 25 units SQ DAILY@1000 [facility] 234 BEDS AT [facility] Last Admin: 07/26/18 09:09 Dose: 25 units Methylprednisolone Sodium Succinate (Solu-Medrol -) 80 mg IVPUSH DAILY [facility] 234 BEDS AT [facility] Last Admin: 07/25/18 11:35 Dose: 80 mg Metoprolol Tartrate (Lopressor -) 12.5 mg PO BID [facility] 234 BEDS AT [facility] Last Admin: 07/26/18 09:05 Dose: 12.5 mg Midodrine (Proamatine -) 5 mg PO TID-MID [facility] 234 BEDS AT [facility] Last Admin: 07/25/18 18:42 Dose: Not Given Rosuvastatin Calcium (Crestor -) 10 mg PO HS [facility] 234 BEDS AT [facility] Last Admin: 07/25/18 22:36 Dose: 10 mg Tamsulosin HCl (Flomax -) 0.4 mg PO DAILY@0830 [facility] 234 BEDS AT [facility] Last Admin: 07/26/18 09:05 Dose: 0.4 mg Torsemide (Demadex -) 80 mg PO DAILY [facility] 234 BEDS AT [facility] Last Admin: 07/26/18 09:06 Dose: 80 mg Warfarin Sodium (Coumadin -) 4 mg PO DAILY@1800 [facility] 234 BEDS AT [facility] Last Admin: 07/25/18 17:48 Dose: 4 mg - Objective Vital Signs: Vital Signs Temperature 97.8 F 07/26/18 05:51 Pulse Rate 64 07/26/18 05:51 Respiratory Rate 20 07/26/18 05:51 Blood Pressure 115/71 07/26/18 05:51 O2 Sat by Pulse Oximetry (%) 98 07/25/18 22:00 Constitutional: Yes: No Distress, Calm Cardiovascular: Yes: Regular Rate and Rhythm Respiratory: Yes: CTA Bilaterally (no rales or wheezing) Gastrointestinal: Yes: Soft (NT) Edema: No Neurological: Yes: Alert Labs: CBC, BMP 07/26/18 05:30 07/25/18 05:30 INR, PTT INR 3.82 (0.83-1.09) H 07/26/18 05:30 - ....Imaging EKG: Image Reviewed Assessment/Plan IMP: PAF w/ intermittent RVR and documented pause 4 seconds, asx Tachy-stacia syndrome CAD s/p NV, normal EF (50-55%), chronic LV thrombus. ESRD REC: No further pauses noted last 24 hours. D/w (an MD)- recommend EP f/u for consideration of PPM, electively for tachy-stacia syndrome. She will f/u w/ Dr. Silverio Daugherty, who patient has seen before. INR also mildly elevated, coumadin to be held tonight and tomorrow with INR Friday.
[2018-07-26] MEDS: methylPREDNISolone NA SUCC 40 MG/1 ML VIAL IVPUSH SCH (10:00)
[2018-07-26] MEDS: MIDODRINE HCL 5 MG TABLET PO SCH (10:00)
[2018-07-26] MEDS ORDERED: CEFTRIAXONE 1 GM in DEXTROSE 5%-WATER - 50 ML IVPB ONE (10:00)
[2018-07-26 11:26] VITALS: BP 124/67; PULSE 58; TEMP 97.6
--- NOTE | 2018-07-26 13:21 | PN ---
Progress Note (short form) - Note Progress Note: addendum Patient taken home at this time. Cardiology note read; issue of 4 sec pause addressed and discussed with patient's ; who opted to take the patient home. PLAN: instructions as per D/c summ & dr richter (Cardiology) `````````````````` Dr Jean Problem List - Problems (1) URI (upper respiratory infection) Code(s): J06.9 - ACUTE UPPER RESPIRATORY INFECTION, UNSPECIFIED Qualifiers: URI type: unspecified URI Qualified Code(s): J06.9 - Acute upper respiratory infection, unspecified (2) ESRD (end stage renal disease) Code(s): N18.6 - END STAGE RENAL DISEASE (3) Diabetes 1.5, managed as type 1 Code(s): E13.9 - OTHER SPECIFIED DIABETES MELLITUS WITHOUT COMPLICATIONS (4) Acute bronchitis Code(s): J20.9 - ACUTE BRONCHITIS, UNSPECIFIED Qualifiers: Bronchitis organism: unspecified organism Qualified Code(s): J20.9 - Acute bronchitis, unspecified (5) Chronic diastolic (congestive) heart failure Code(s): I50.32 - CHRONIC DIASTOLIC (CONGESTIVE) HEART FAILURE (6) Atrial flutter Code(s): I48.92 - UNSPECIFIED ATRIAL FLUTTER Qualifiers: Atrial flutter type: unspecified Qualified Code(s): I48.92 - Unspecified atrial flutter (7) Ventricular mural thrombus Code(s): I51.3 - INTRACARDIAC THROMBOSIS, NOT ELSEWHERE CLASSIFIED (8) Hypotension Code(s): I95.9 - HYPOTENSION, UNSPECIFIED Qualifiers: Hypotension type: unspecified hypotension type Qualified Code(s): I95.9 - Hypotension, unspecified (9) Hyperlipidemia Code(s): E78.5 - HYPERLIPIDEMIA, UNSPECIFIED Qualifiers: Hyperlipidemia type: unspecified Qualified Code(s): E78.5 - Hyperlipidemia , unspecified (10) CVA (cerebral infarction) Code(s): I63.9 - CEREBRAL INFARCTION, UNSPECIFIED Qualifiers: Cerebral infarction mechanism: unspecified mechanism Qualified Code(s): I63.9 - Cerebral infarction, unspecified
== END 2018-07-26 11:03 | disposition home or self-care (01) | DRG 291 ==
LOC: JER 10:52 → JERBED 13:03 → J4W 22:12
PROVIDERS: ADMIT Internal Medicine Hematology & Oncology; ATTEND Internal Medicine Hematology & Oncology
PROC: 5A1D70Z Performance of Urinary Filtration, Intermittent, Less than 6 Hours Per Day (ICD-10-PCS; principal; 2018-07-25)
DX: I13.2 Hypertensive heart and chronic kidney disease with heart failure and with stage 5 chronic kidney disease, or end stage renal disease (principal); J18.9 Pneumonia, unspecified organism; N18.6 End stage renal disease; I50.33 Acute on chronic diastolic (congestive) heart failure; I47.1 Supraventricular tachycardia; I48.92 Unspecified atrial flutter; J20.9 Acute bronchitis, unspecified; J06.9 Acute upper respiratory infection, unspecified; I49.5 Sick sinus syndrome; E78.5 Hyperlipidemia, unspecified; I48.0 Paroxysmal atrial fibrillation; I25.10 Atherosclerotic heart disease of native coronary artery without angina pectoris; I95.9 Hypotension, unspecified; E11.65 Type 2 diabetes mellitus with hyperglycemia; E87.70 Fluid overload, unspecified; D63.1 Anemia in chronic kidney disease; D69.6 Thrombocytopenia, unspecified; Z98.61 Coronary angioplasty status; N40.0 Benign prostatic hyperplasia without lower urinary tract symptoms; E03.9 Hypothyroidism, unspecified; R53.1 Weakness; Z99.2 Dependence on renal dialysis; Z79.4 Long term (current) use of insulin
CPT/HCPCS: 36415; 71045-TC-FY; 80048; 80053; 80061; 81003; 81015; 82140; 82803; 82962; 83036; 83605; 83721; 83880; 84439; 84443; 84481; 84484; 84550; 85025; 85027; 85610; 85730; 86704; 86706; 86708; 86803; 87040; 87086; 87340; 93005; 93010; 94640; 99282-25; P9047

== ENCOUNTER 2018-08-24 12:45 | Inpatient (IN) | payer OTHER, MEDICARE ==
[~2018-08-24 12:45] MED LIST: ceFAZolin SODIUM 1 GM VIAL IVPB ONE
[2018-08-24 13:13] LABS: BASO % 0.8 % (0-2.0); EOS % 2.7 % (0-4.5); HEMATOCRIT 38.9 % (35.4-49); HEMOGLOBIN 12.9 GM/dL (11.7-16.9); LYMPH % 24.8 % (8-40); MCH 27.7 pg (25.7-33.7); MCHC 33.2 g/dl (32.0-35.9); MEAN CELL VOLUME 83.6 fl (80-96); NEUT % 62.7 % (42.8-82.8); PLATELET COUNT 76 K/MM3 (134-434); RBC 4.65 M/mm3 (4.00-5.60); RDW 17.5 % (11.9-15.9); WHITE BLOOD COUNT 4.6 K/mm3 (4.0-10.0)
[2018-08-24 13:26] LABS: INR 1.24 (0.83-1.09); PROTHROMBIN TIME (PATIENT) 14.7 SEC (9.7-13.0)
[2018-08-24 13:36] VITALS: BMI 21.3
[2018-08-24 13:45] LABS: ALK PHOS 132 U/L (45-117); ANION GAP 2 MMOL/L (8-16); BILIRUBIN,TOTAL 0.4 mg/dL (0.2-1); BLOOD UREA NITROGEN 58 mg/dL (7-18); CALCIUM 8.4 mg/dL (8.5-10.1); CHLORIDE 106 mmol/L (98-107); CO2 27 mmol/L (21-32); CREATININE 2.6 mg/dL (0.55-1.3); POTASSIUM 5.7 mmol/L (3.5-5.1); SGOT/AST 24 U/L (15-37); SGPT/ALT 32 U/L (13-61); SODIUM 135 mmol/L (136-145); TOT PROT 6.8 g/dl (6.4-8.2)
[2018-08-24 13:49] LABS: GLUCOSE,RANDOM 341 mg/dL (74-106)
[2018-08-24] MEDS ORDERED: HEPARIN NA (PORCINE) 5,000 UNITS/ML 1ML VIAL ONE (22:44)
[2018-08-24] MEDS ORDERED: ceFAZolin SODIUM 1 GM VIAL ONE (23:14)
[2018-08-24] MEDS ORDERED: ceFAZolin SODIUM 1 GM VIAL IVPB ONE (23:14)
[2018-08-24] MEDS ORDERED: SODIUM CHLORIDE 0.9% P/F 10 ML VIAL IJ ONE (23:15)
[2018-08-24] MEDS ORDERED: MIDAZOLAM HCL 2 MG/2 ML SINGLE DOSE VIAL ONE (23:16)
[2018-08-25] MEDS ORDERED: HEPARIN NA (PORCINE) 5,000 UNITS/ML 1ML VIAL ONE (00:11)
--- NOTE | 2018-08-25 00:31 | OP ---
Operative Note - Note: Operative Date: 08/25/18 Pre-Operative Diagnosis: Clotted left avf Operation: Venogram, suction thrombectomy, venoplasty left avf Post-Operative Diagnosis: Same as Pre-op Surgeon: Walter Huff Anesthesia: Fractional Estimated Blood Loss (mls): 30 Operative Report Dictated: Yes
--- NOTE | 2018-08-25 00:33 | HP ---
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 No: Addictions, Bipolar, Depression, Panic, Psychosis, Schizophrenia, Other Endocrine: Yes: Diabetes Mellitus. No: [place]'s Disease, [place]'s Disease, Diabetes Insipidus, Hyperparathyroidism, Hyperthyroidism, Hypothyroidism, Osteopenia, SIADH, Other - Past Surgical History Past Surgical History: Yes: Stent - Smoking History Smoking history: Unknown if ever smoked Have you smoked in the past 12 months: No - Alcohol/Substance Use Hx Alcohol Use: No History of Substance Use: reports: None - Social History ADL: Family Assistance History of Recent Travel: No Home Medications - Allergies Allergies/Adverse Reactions: Allergies Allergy/AdvReac Type Severity Reaction Status Date / Time No Known Allergies Allergy Verified 07/23/18 11:06 - Home Medications Home Medications: Ambulatory Orders Aspirin Coated [Ecotrin -] 81 mg PO DAILY tablet.ec 02/27/18 Escitalopram Oxalate [Lexapro -] 5 mg PO HS tablet 02/27/18 Insulin Sliding Scale [Novolog Vial Sliding Scale -] 1 vial SQ HS units Insulin Sliding Scale [Novolog Vial Sliding Scale -] 1 vial SQ TIDAC units Rosuvastatin [Crestor -] 10 mg PO HS tablet 02/27/18 Tamsulosin HCl [Flomax -] 0.4 mg PO HS cap.er.24h 02/27/18 Metoprolol Tartrate [Lopressor -] 12.5 mg PO BID tablet 02/28/18 Calcium Acetate [Phoslo -] 667 mg PO TIDCM 04/30/18 Warfarin Na [Coumadin -] 4 mg PO ASDIR 07/23/18 Warfarin Sodium [Coumadin] 2 mg PO ASDIR 07/23/18 Clopidogrel Bisulfate [Plavix] 75 mg PO DAILY 08/24/18 Insulin Glargine,Hum.rec.anlog [Lantus] 25 unit SQ HS 08/24/18 Midodrine HCl [Proamatine -] 5 mg PO ASDIR 08/24/18 Review of Systems - Review of Systems Constitutional: reports: No Symptoms Eyes: reports: No Symptoms HENT: reports: No Symptoms Neck: reports: No Symptoms Cardiovascular: reports: No Symptoms Respiratory: reports: No Symptoms Gastrointestinal: reports: No Symptoms Genitourinary: reports: No Symptoms Musculoskeletal: reports: No Symptoms Integumentary: reports: No Symptoms Neurological: reports: No Symptoms Endocrine: reports: No Symptoms Hematology/Lymphatic: reports: No Symptoms Psychiatric: reports: No Symptoms Physical Examination Vital Signs: Vital Signs Temperature 98.0 F 08/24/18 23:50 Pulse Rate 60 08/24/18 23:50 Respiratory Rate 18 08/24/18 23:50 Blood Pressure 130/80 08/24/18 23:50 O2 Sat by Pulse Oximetry (%) 100 08/24/18 13:41 Constitutional: Yes: Well Nourished, No Distress, Calm Eyes: Yes: WNL, Conjunctiva Clear, EOM Intact HENT: Yes: WNL, Atraumatic, Normocephalic Neck: Yes: WNL, Supple, Trachea Midline Cardiovascular: Yes: WNL, Regular Rate and Rhythm Respiratory: Yes: WNL, Regular, CTA Bilaterally Gastrointestinal: Yes: WNL, Normal Bowel Sounds Musculoskeletal: Yes: WNL Extremities: Yes: WNL, Other (left avf - clotted.) Edema: No Peripheral Pulses WNL: Yes Integumentary: Yes: WNL Neurological: Yes: WNL, Alert, Oriented ...Motor Strength: WNL Psychiatric: Yes: WNL Labs: CBC, BMP 08/24/18 13:07 08/24/18 13:07 Problem List - Problems (1) AV fistula occlusion Assessment/Plan: For venogram, suction thrombectomy, venoplasty Code(s): T82.898A - [facility] COMPLICATION OF VASCULAR PROSTH DEV/GRFT, INIT
[2018-08-25] MEDS ORDERED: WARFARIN NA 5 MG TABLET (UD) PO ONE (00:45)
[2018-08-25] MEDS ORDERED: ENOXAPARIN NA (PORCINE) 60 MG/0.6 ML DISP.SYRIN SQ SCH (00:46)
[2018-08-25] MEDS ORDERED: HEPARIN NA (PORCINE) 5,000 UNITS/ML 1ML VIAL IVPUSH ONE (08:25)
[2018-08-25] MEDS ORDERED: SODIUM CHLORIDE 250 ML IV PRN (08:25)
--- NOTE | 2018-08-25 08:25 | PN ---
Progress Note (short form) - Note Progress Note: POD 1, s/p Venogram, suction thrombectomy, venoplasty left avf Pt seen and examined. States he is feeling well after surgery. Tolerating PO. Has not been oob yet. Denies cp/sob, n/v/d. Vital Signs Temp 97.5 F L 08/25/18 05:29 Pulse 66 08/25/18 05:29 Resp 19 08/25/18 05:29 BP 118/66 08/25/18 05:29 Pulse Ox 97 08/25/18 01:30 Intake & Output 08/24/18 08/24/18 08/25/18 11:59 23:59 11:59 Intake Total 250 Output Total 30 0 Balance -30 250 0 Weight 132 lb 133 lb 1 oz Intake: IV 250 Output: Urine 0 Estimated Blood Loss 30 Other: Height 5 ft 6 in Body Mass Index (BMI) 21.3 Weight Measurement Method Stated by Patient Built in [facility] CBC, BMP 08/24/18 13:07 08/24/18 13:07 Gen: awake, alert, nad Resp: Unlabored on RA Upper ext: LUE with suture c/d/i, +thrill, +bruit A/P: 78 y/o m w/ PMHx CVA, CAD, CHF, HTN, Hyperlipdemia, GIB, ESRD on HD, DM, now POD 1, s/p Venogram, suction thrombectomy, venoplasty left avf. Doing well this morning. Awaiting HD (d/w Dr Del Cid) Plan for d/c later today above d/w attending, Dr Huff
--- NOTE | 2018-08-25 09:30 | OP ---
DATE OF OPERATION: 08/24/2018 PREOPERATIVE DIAGNOSIS: Clotted left arteriorvenous fistula. POSTOPERATIVE DIAGNOSIS: Clotted left arteriorvenous fistula. PROCEDURE: Venogram, suction thrombectomy, venoplasty of left arteriorvenous fistula. SURGEON: Walter Fernandez MD ANESTHESIA: Fractional. BLOOD LOSS: 30 mL. INDICATIONS: The patient is a 78-year-old male who came into the office today with a difficult cannulation in HD. Upon getting his ultrasound in our office, it was found that the mid to distal AV fistula was clotted, and it was decided that he would need suction thrombectomy. Patient went to child daycare worker, and patient was then consented for the procedure understanding all risks, benefits, and alternatives, and was then taken to the operating room. DESCRIPTION OF PROCEDURE: Once in the operating suite, he was placed on the operating table in the supine manner, and the area of the left arm was prepped and draped in a sterile surgical manner. We then went ahead and injected 3 mL of lidocaine 1% in the proximal AV fistula above the anastomosis. We then used our micropuncture needle and punctured the AV fistula. A micropuncture wire was inserted, and a short 6-Kiswahili sheath was inserted. Then, 5000 units of IV heparin were then administered to the patient. We then used a 0.035 floppy guidewire. We then shot a venogram through our sheath which showed that the proximal fistula was patent, but the mid to distal was completely occluded. We then placed a 0.035 floppy guidewire followed by a MORGAN catheter, and we were able to selectively cross the clot and get the wire down across the central veins and into the chest. We then went ahead and used an AVX suction thrombectomy catheter and performed suction thrombectomy of the entire AV fistula. We then went ahead and used a 7 x 8 balloon and performed venoplasty of the entire AV fistula. We then used an 8 x 8 balloon and performed venoplasty of the entire AV fistula. Completion venogram now showed that the fistula was patent, but the mid portion of the fistula had some clot. We then used a 9 x 4 balloon and performed venoplasty in that area. So, venoplasty was performed with the mid AV fistula using a 9 x 4 balloon. Completion venogram now showed that the fistula was patent, there was a good thrill going all the way up the arm. At this point, we used a 4-0 Biosyn stitch and a figure-of-8 stitch was placed around the sheath, and the sheath was pulled. The area was wet and dried, and Dermabond was placed. The patient tolerated the procedure with no complications. Patient transferred to PACU in stable condition. WALTER FERNANDEZ DO NP/[id number]
[2018-08-25 09:40] VITALS: TEMP 98.2
[2018-08-25] MEDS ORDERED: CLOPIDOGREL BISULFATE 75 MG TABLET (FP) PO SCH ×2 (10:00)
[2018-08-25] MEDS ORDERED: ASPIRIN COATED 81 MG TABLET.EC PO SCH ×2 (10:00)
[2018-08-25] MEDS: HEPARIN NA (PORCINE) 5,000 UNITS/ML 1ML VIAL IVPUSH SCH ×3 (10:27→12:10)
[2018-08-25 10:36] LABS: ANION GAP 7 MMOL/L (8-16); BLOOD UREA NITROGEN 54 mg/dL (7-18); CALCIUM 8.5 mg/dL (8.5-10.1); CHLORIDE 109 mmol/L (98-107); CO2 24 mmol/L (21-32); CREATININE 2.3 mg/dL (0.55-1.3); GLUCOSE,RANDOM 259 mg/dL (74-106); POTASSIUM 5.2 mmol/L (3.5-5.1); SODIUM 139 mmol/L (136-145)
[2018-08-25 13:41] VITALS: BP 144/74; PULSE 75
--- NOTE | 2018-08-25 15:00 | PN ---
Progress Note (short form) - Note Progress Note: Renal follow up for ESRD on HD This is a 78 year old gentleman with hx of ESRD on HD, CHF, CAD, RV thrombus who presented with clotted AVF and now s/p vascular surgery intervention. Pt had dialysis this AM and tolerated it well. No SOB, CP, Abd pain, N/V. Vital Signs Temperature 98.2 F 08/25/18 09:25 Pulse Rate 75 08/25/18 13:05 Respiratory Rate 18 08/25/18 13:11 Blood Pressure 144/74 08/25/18 13:05 O2 Sat by Pulse Oximetry (%) 97 08/25/18 13:11 Intake & Output 08/22/18 08/23/18 08/24/18 08/25/18 23:59 23:59 23:59 23:59 Intake Total 250 Output Total 30 0 Balance 220 0 Weight 59.874 kg 60.356 kg NAD awake and alert RRR Dec BS at lung bases, no rales soft NT/ND trace edema left arm AVF with bruit CBC, BMP 08/24/18 13:07 08/25/18 09:30 Current Medications Aspirin (Ecotrin -) 81 mg PO DAILY [facility] Last Admin: 08/25/18 14:21 Dose: 81 mg Clopidogrel Bisulfate (Plavix -) 75 mg PO DAILY [facility] Last Admin: 08/25/18 14:21 Dose: 75 mg Enoxaparin Sodium (Lovenox -) 60 mg SQ DAILY@0100 [facility] Fentanyl (Sublimaze Injection -) 25 mcg IVPUSH [id number] PRN PRN Reason: PAIN-PACU ORDER X 4 DOSES ONLY Stop: 08/26/18 03:00 Sodium Chloride (Normal Saline -) 250 mls @ 3,000 mls/hr IV PRN PRN PRN Reason: Hypotension during Dialysis Stop: 08/26/18 08:26 78 year old gentleman with hx of ESRD on HD, CHF, CAD, RV thrombus who presented with clotted AVF #Clotted AVF #ESRD on HD #Hyperkalemia #CHF #Anemia s/p Vascular surgery intervention for clotted AVF s/p dialysis this am w/o complication stable for discharge home and to resume outpatient dialysis on Florencio Del Cid DO
[2018-08-26] MEDS ORDERED: ENOXAPARIN NA (PORCINE) 60 MG/0.6 ML DISP.SYRIN SQ SCH (01:00)
[2018-08-27 00:10] LABS: HBSAG SCREEN Negative (Negative); HEP A AB, IGM Negative (Negative); HEP B CORE AB, TOT Negative (Negative)
== END 2018-08-25 17:41 | disposition home or self-care (01) | DRG 252 ==
LOC: JASU-SURG 12:45 → JSAMEDAYSX 17:54 → J6S 19:41
PROVIDERS: ADMIT Surgery Vascular Surgery; ATTEND Surgery Vascular Surgery
PROC: 05CY3ZZ Extirpation of Matter from Upper Vein, Percutaneous Approach (ICD-10-PCS; principal; 2018-08-24 18:00)
PROC: 057Y3ZZ Dilation of Upper Vein, Percutaneous Approach (ICD-10-PCS; 2018-08-24 18:00)
PROC: 5A1D70Z Performance of Urinary Filtration, Intermittent, Less than 6 Hours Per Day (ICD-10-PCS; 2018-08-25)
DX: T82.898A Other specified complication of vascular prosthetic devices, implants and grafts, initial encounter (principal); N18.6 End stage renal disease; I13.2 Hypertensive heart and chronic kidney disease with heart failure and with stage 5 chronic kidney disease, or end stage renal disease; I50.9 Heart failure, unspecified; E11.22 Type 2 diabetes mellitus with diabetic chronic kidney disease; E87.5 Hyperkalemia; I25.10 Atherosclerotic heart disease of native coronary artery without angina pectoris; D64.9 Anemia, unspecified; Z99.2 Dependence on renal dialysis; Y83.9 Surgical procedure, unspecified as the cause of abnormal reaction of the patient, or of later complication, without mention of misadventure at the time of the procedure
CPT/HCPCS: 36415; 76000-TC-FY; 80048; 80053; 85025; 85610; 86704; 86706; 86708; 86803; 87340; 93990-TC; 94760; G0463-25; J1644

== ENCOUNTER 2018-09-28 09:31 | Day surgery (SDC) | payer OTHER, MEDICARE ==
[~2018-09-28 09:31] MED LIST changes: +HEPARIN NA (PORCINE) 5,000 UNITS/ML 1ML VIAL IV ONE; +LIDOCAINE HCL 1%, 10 MG/ML (20ML VIAL) INF ONE; -ceFAZolin SODIUM 1 GM VIAL IVPB ONE
[2018-09-28 10:03] VITALS: BMI 21.3
[2018-09-28] MEDS ORDERED: LIDOCAINE HCL 1%, 10 MG/ML (20ML VIAL) ONE (10:06)
[2018-09-28] MEDS ORDERED: HEPARIN NA (PORCINE) 5,000 UNITS/ML 1ML VIAL ONE ×2 (10:06→10:40)
[2018-09-28] MEDS ORDERED: MIDAZOLAM HCL 2 MG/2 ML SINGLE DOSE VIAL ONE (10:17)
[2018-09-28] MEDS ORDERED: LIDOCAINE HCL 1%, 10 MG/ML (20ML VIAL) INF ONE (12:03)
[2018-09-28] MEDS ORDERED: HEPARIN NA (PORCINE) 5,000 UNITS/ML 1ML VIAL IV ONE (12:03)
[2018-09-28] MEDS ORDERED: oxyCODONE HCL 5 MG TABLET PO PRN (12:08)
[2018-09-28] MEDS ORDERED: ONDANSETRON 4 MG/2 ML VIAL IVPUSH PRN (12:08)
[2018-09-28] MEDS ORDERED: SODIUM CHLORIDE 1,000 ML IV SCH (12:15)
--- NOTE | 2018-09-28 12:23 | HP ---
Admitting History and Physical - Admission Chief Complaint: clotted left avf. 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 No: Addictions, Bipolar, Depression, Panic, Psychosis, Schizophrenia, Other Endocrine: Yes: Diabetes Mellitus. No: [place]'s Disease, [place]'s Disease, Diabetes Insipidus, Hyperparathyroidism, Hyperthyroidism, Hypothyroidism, Osteopenia, SIADH, Other - Past Surgical History Past Surgical History: Yes: Stent - Smoking History Smoking history: Never smoked Have you smoked in the past 12 months: No - Alcohol/Substance Use Hx Alcohol Use: No History of Substance Use: reports: None - Social History ADL: Family Assistance History of Recent Travel: No Home Medications - Allergies Allergies/Adverse Reactions: Allergies Allergy/AdvReac Type Severity Reaction Status Date / Time No Known Allergies Allergy Verified 07/23/18 11:06 - Home Medications Home Medications: Ambulatory Orders Aspirin Coated [Ecotrin -] 81 mg PO DAILY tablet.ec 02/27/18 Escitalopram Oxalate [Lexapro -] 5 mg PO HS tablet 02/27/18 Insulin Sliding Scale [Novolog Vial Sliding Scale -] 1 vial SQ TIDAC units Rosuvastatin [Crestor -] 10 mg PO HS tablet 02/27/18 Tamsulosin HCl [Flomax -] 0.4 mg PO HS cap.er.24h 02/27/18 Metoprolol Tartrate [Lopressor -] 12.5 mg PO BID tablet 02/28/18 Calcium Acetate [Phoslo -] 667 mg PO TIDCM 04/30/18 Warfarin Na [Coumadin -] 4 mg PO ASDIR 07/23/18 Warfarin Sodium [Coumadin] 2 mg PO ASDIR 07/23/18 Clopidogrel Bisulfate [Plavix] 75 mg PO DAILY 08/24/18 Insulin Glargine,Hum.rec.anlog [Lantus] 25 unit SQ HS 08/24/18 Midodrine HCl [Proamatine -] 5 mg PO ASDIR 08/24/18 Review of Systems - Review of Systems Constitutional: reports: No Symptoms Eyes: reports: No Symptoms HENT: reports: No Symptoms Neck: reports: No Symptoms Cardiovascular: reports: No Symptoms Respiratory: reports: No Symptoms Gastrointestinal: reports: No Symptoms Genitourinary: reports: No Symptoms Musculoskeletal: reports: No Symptoms Integumentary: reports: No Symptoms Neurological: reports: No Symptoms Endocrine: reports: No Symptoms Hematology/Lymphatic: reports: No Symptoms Psychiatric: reports: No Symptoms Physical Examination Vital Signs: Vital Signs Temperature 97.5 F L 09/28/18 10:04 Pulse Rate 61 09/28/18 10:04 Respiratory Rate 20 09/28/18 10:04 Blood Pressure 148/62 09/28/18 10:04 O2 Sat by Pulse Oximetry (%) 100 09/28/18 10:04 Constitutional: Yes: Well Nourished, No Distress, Calm Eyes: Yes: WNL, Conjunctiva Clear, EOM Intact HENT: Yes: WNL, Atraumatic, Normocephalic Neck: Yes: WNL, Supple, Trachea Midline Cardiovascular: Yes: WNL, Regular Rate and Rhythm Respiratory: Yes: WNL, Regular, CTA Bilaterally Gastrointestinal: Yes: WNL, Normal Bowel Sounds Musculoskeletal: Yes: WNL Extremities: Yes: WNL Edema: No Peripheral Pulses WNL: Yes Integumentary: Yes: WNL Neurological: Yes: WNL, Alert, Oriented ...Motor Strength: WNL Psychiatric: Yes: WNL Labs: CBC, BMP 09/28/18 09:41 Problem List - Problems (1) AV fistula occlusion Assessment/Plan: For venogram, suction thrombectomy today Code(s): T82.898A - [facility] COMPLICATION OF VASCULAR PROSTH DEV/GRFT, INIT Qualifiers:
--- NOTE | 2018-09-28 12:25 | OP ---
Operative Note - Note: Operative Date: 09/28/18 Pre-Operative Diagnosis: Clotted left avf Operation: venogram, suction thrombectomy, venoplasty , stent placement left avf Post-Operative Diagnosis: Same as Pre-op Surgeon: Walter Huff Anesthesia: Fractional Estimated Blood Loss (mls): 20 Operative Report Dictated: Yes
[2018-09-28 14:57] VITALS: BP 134/60; PULSE 67; TEMP 97.7
--- NOTE | 2018-09-30 13:19 | OP ---
DATE OF OPERATION: 09/28/2018 PREOPERATIVE DIAGNOSIS: Clotted left arteriorvenous fistula. POSTOPERATIVE DIAGNOSIS: Clotted left arteriorvenous fistula. PROCEDURE: Venogram, suction thrombectomy, venoplasty and stent placement of left arteriorvenous fistula. SURGEON: Walter Fernandez MD ANESTHESIA: Fractional. BLOOD LOSS: 30 mL. INDICATIONS: The patient is a 78-year-old male who has a partially occluded AV fistula. He had a preoperative ultrasound showing that the proximal AV fistula is patent, which has a branch that is keeping the fistula open, and the rest of the fistula going from the mid upper arm to his chest is occluded. Patient came in to ambulatory surgery. Patient was consented for the procedure understanding all risks, benefits, and alternatives, and then taken to the operating room. DESCRIPTION OF PROCEDURE: Once in the operating room, he was placed on the operating table in the supine manner, and the area of the left arm was prepped and draped in a sterile surgical manner. We then injected 10 mL of lidocaine 1% in the proximal AV fistula. We then punctured the AV fistula, a micropuncture wire was inserted, micropuncture sheath was inserted, and a short 6-British sheath was inserted. We then shot a venogram showing that the proximal AV fistula was open and the rest of the fistula was occluded. We then placed a 0.035 floppy guidewire followed by a 40 MORGAN catheter, and we were able to selectively get into the occluded segment and get the wire into the chest. Once the MORGAN catheter was brought all the way up into the chest, we found that the cephalic arch was closed, but the junction is open going into the chest. At this point, we placed a wire into the central veins. We then used an AVX suction thrombectomy catheter and performed suction thrombectomy of the entire segment from the mid upper arm all the way into the chest, and we ran that 2-3 times. We then went ahead and used a 9 x 8 [place] balloon, and prior to using that, patient was given 5000 units of IV heparin. We then used a 9 x 8 [place] balloon and performed venoplasty of the chest cephalic arch all the way down to the mid upper arm. Completion of venogram now showed that the fistula was now patent. However, there were still areas of severe stenosis in the cephalic arch. At this point, we went ahead and placed a 7 x 5.6 LifeStream stent in the cephalic arch. Distal to the cephalic arch, there was another segment that was highly stenotic and we placed a 7 x 3 LifeStream stent. Both of those were ballooned in place using our 9 x 8 [place] balloon. Completion of venogram now showed that the fistula was patent. There was good brisk flow all the way going into the chest. There was a good thrill in our AV fistula. At this point, there was no more intervention needed. We used a 4-0 Biosyn stitch and a figure-of-8 stitch was placed around our sheath, and the sheath was pulled. The area was wet and dried, and Dermabond was placed. The patient tolerated the procedure with no complications. Patient transferred to PACU in stable condition. WALTER FERNANDEZ DO [id number]
== END 2018-09-28 14:50 | disposition home or self-care (01) ==
LOC: JASU-SURG 09:31
PROVIDERS: ATTEND Surgery Vascular Surgery
PROC: 057F3DZ Dilation of Left Cephalic Vein with Intraluminal Device, Percutaneous Approach (ICD-10-PCS; principal; 2018-09-28 11:00)
DX: T82.868A Thrombosis due to vascular prosthetic devices, implants and grafts, initial encounter (principal); I13.2 Hypertensive heart and chronic kidney disease with heart failure and with stage 5 chronic kidney disease, or end stage renal disease; N18.6 End stage renal disease; E11.22 Type 2 diabetes mellitus with diabetic chronic kidney disease; Z99.2 Dependence on renal dialysis
CPT/HCPCS: 36215; 36906; 36908; 75710; C1751; 36415; 76000-TC-FY; 82962; 84132; 94760; J1644

== ENCOUNTER 2019-02-02 09:27 | Inpatient (IN) | payer OTHER, MEDICARE ==
[2019-02-02 09:35] VITALS: BMI 21.6
--- NOTE | 2019-02-02 10:13 | PDOC ---
History of Present Illness - General Chief Complaint: Rectal Bleed Stated Complaint: RECTAL BLEEDING Time Seen by Provider: 02/02/19 10:13 History Source: Patient, Spouse (MD at bedside) Exam Limitations: No Limitations - History of Present Illness Initial Comments: 02/02/19 11:19 78 yo M pmh IN s/p 5 stents 2017 w/ LV thrombus, ESRD on HD, DM, HLD, CHF, CAD presenting with acute onset BRBPR w/ clots. Has gone through 3-4 diaper changes. Denies pain. Patient was recently at [facility] due to AV fistula occlusion, received tunnel catheter on 01/26/19, and discharged 01/30 after being given increased coumadin to elevate INR. Rectal bleed started a few days after discharge. Denies f/c/n/v/abdpain, chest pain, SOB, altered mental status, lightheadedness, and/or dizziness. No prior episodes, no abdominal surgeries. PMH as above MEDS see chart NKDA PCP Dr. Dante Hess LV thrombus not seen on last week's ECHO. Past History - Past Medical History Allergies/Adverse Reactions: Allergies Allergy/AdvReac Type Severity Reaction Status Date / Time No Known Allergies Allergy Verified 02/02/19 09:29 Home Medications: Ambulatory Orders Aspirin Coated [Ecotrin -] 81 mg PO DAILY tablet.ec 02/27/18 Escitalopram Oxalate [Lexapro -] 5 mg PO HS tablet 02/27/18 Insulin Sliding Scale [Novolog Vial Sliding Scale -] 1 vial SQ TIDAC units Rosuvastatin [Crestor -] 10 mg PO HS tablet 02/27/18 Tamsulosin HCl [Flomax -] 0.4 mg PO HS cap.er.24h 02/27/18 Metoprolol Tartrate [Lopressor -] 12.5 mg PO BID tablet 02/28/18 Calcium Acetate [Phoslo -] 667 mg PO TIDCM 04/30/18 Warfarin Na [Coumadin -] 4 mg PO ASDIR 07/23/18 Warfarin Sodium [Coumadin] 2 mg PO ASDIR 07/23/18 Clopidogrel Bisulfate [Plavix] 75 mg PO DAILY 08/24/18 Insulin Glargine,Hum.rec.anlog [Lantus] 25 unit SQ HS 08/24/18 Midodrine HCl [Proamatine -] 5 mg PO ASDIR 08/24/18 Anemia: Yes (GI BLEED) Asthma: No Cancer: No Cardiac Disorders: Yes (CAD, IN 06/2017, Stents, VENTRICULAR THROMBUS) CVA: Yes (+ CVA) COPD: No CHF: Yes (CHF) Dementia: No Diabetes: Yes GI Disorders: Yes (GI BLEED) Disorders: Yes (BPH) HTN: Yes Hypercholesterolemia: Yes Liver Disease: No Seizures: No Thyroid Disease: No Other medical history: HD TUES, TH, SAT - Surgical History Abdominal Surgery: No Appendectomy: No Cardiac Surgery: Yes (multiple stents) Cholecystectomy: No Lung Surgery: No Neurologic Surgery: No Orthopedic Surgery: Yes (RIGHT SHOULDER SX) - Immunization History Immunization Up to Date: Yes - Suicide/Smoking/Psychosocial Hx Smoking History: Never smoked Have you smoked in the past 12 months: No Hx Alcohol Use: No Drug/Substance Use Hx: No Substance Use Type: None Hx Substance Use Treatment: No Review of Systems - Review of Systems Able to Perform ROS?: Yes Is the patient limited Tunisian proficient: No Constitutional: No: Symptoms Reported, See HPI, Chills, Diaphoresis, Fever, Loss of Appetite, Malaise, Night Sweats, Weakness, Weight Stable, Unintentional Wgt. Loss, Unexplained wgt Loss, Other HEENTM: No: Symptoms Reported, See HPI, Eye Pain, Blurred Vision, Tearing, Recent change in vision, Double Vision, Cataracts, Ear Pain, Ocular Prothesis, Ear Discharge, Nose Pain, Nose Congestion, Tinnitus, Nose Bleeding, Hearing Loss , Throat Pain, Throat Swelling, Mouth Pain, Dental Problems, Difficulty Swallowing, Mouth Swelling, Other Respiratory: No: Symptoms reported, See HPI, Cough, Orthopnea, Shortness of Breath, SOB with Exertion, SOB at Rest, Stridor, Wheezing, Productive cough, Hemoptysis, Other Cardiac (ROS): No: Symptoms Reported, See HPI, Chest Pain, Edema, Irregular Heart Rate, Lightheadedness, Palpitations, Syncope, Chest Tightness, Other ABD/GI: Yes: See HPI, Rectal Bleeding : No: Symptoms Reported, See HPI, Burning, Dysuria, Discharge, Frequency, Flank Pain, Hematuria, Incontinence, Pain, Urgency, Testicular Mass, Testicular Swelling, Lesions, Testicular Pain, Other Musculoskeletal: No: Symptoms Reported, See HPI, Back Pain, Gout, Joint Pain, Joint Swelling, Muscle Pain, Muscle Weakness, Neck Pain, Joint Stiffness, Other Integumentary: No: Symptoms Reported, See HPI, Bruising, Change in Color, Change in Hair/Nails, Dryness, Erythema, Flushing, Lesions, Lumps, Pallor, Pruritus, Rash, Sweating, Other Neurological: No: Symptoms reported, See HPI, Headache, Numbness, Paresthesia, Pre-Existing Deficit, Seizure, Tingling, Tremors, Weakness, Unsteady Gait, Ataxia, Dizziness, Other Psychiatric: No: Anxiety, Depression, Frequent Crying, Stressors, Sleep Pattern Change, Emotional Problems, Mood Swings, Change in Appetite, Other Endocrine: No: Symptoms Reported, See HPI, Excessive Sweating, Flushing, Intolerance to Cold, Intolerance to Heat, Increased Hunger, Increased Thirst, Increased Urine, Unexplained Weight Gain, Unexplained Weight Loss, Change in Weight, Other Hematologic/Lymphatic: No: Symptoms Reported, See HPI, Anemia, Blood Clots, Easy Bleeding, Easy Bruising, Bleeding Diathesis, Lymph Node Abnormalities, Swollen Glands, Other All Other Systems: Reviewed and Negative *Physical Exam - Vital Signs Last Vital Signs Temp Pulse Resp BP Pulse Ox 97.8 F 63 18 115/60 100 02/02/19 09:31 02/02/19 09:31 02/02/19 09:31 02/02/19 09:31 02/02/19 09:31 - Physical Exam Comments: 02/02/19 11:42 GEN: Resting comfortably in bed, NAD. HEENT: NC/AT, EOMI, PERRLA, CN II-XII intact. Moist mucous membranes. CV: S1/S2, RRR, no m/r/g. Tunnel catheter site has dried blood around insertion site but no active bleeding or oozing. LUNG: CTAB, no wheezes, crackles, rales, rhonchi. GI: soft, ndnt, +BS Rectal: Dried blood soaking pad and around buttocks. No active bleeding. Normal rectal tone. Nonenlarged prostate. No masses or nodules on palpation. Nontender exam. FOBT sent. Ext: no edema ED Treatment Course - LABORATORY CBC & Chemistry Diagram: 02/02/19 11:10 02/02/19 11:10 Medical Decision Making - Medical Decision Making 02/02/19 10:59 78 yo M presenting with acute bright red rectal bleed with clots after recently being discharged from [facility] for tunnel catheter. Recent adjustment in warfarin dose to target therapeutic INR. No active bleeding but there is dried blood around the buttock and tunnel cath site. DDx - likely LGIB 2/2 AC, source includes diverticulitis, avms, hemorrhoids. Unlikely an ischemic process, colon ca Rectal bleed - CBC, CMP, T&S, Coags, trop - EKG - FOBT - 500 NS - HD? 02/02/19 11:39 Patient has not had a recent colonoscopy Dr. Del Cid [facility] GI c/s will contact PCP for admit 02/02/19 12:13 H/H, INR reviewed Discussed patient in person w/ Dr. Del Cid - possible HD today GI c/s Admit 02/02/19 13:32 Discussed patient with GI Dr. Chiu - recommended PPI bolus and drip; consult placed -40mg protonix followed by 8mg/hr drip Patient endorsed to Dr. Jean - admit to med/surg *DC/Admit/Observation/Transfer Diagnosis at time of Disposition: GI bleed Qualifiers: GI bleed type/associated pathology: unspecified gastrointestinal hemorrhage type Qualified Code(s): K92.2 - Gastrointestinal hemorrhage, unspecified - Discharge Dispostion Condition at time of disposition: Guarded Decision to Admit order: Yes - Referrals Referrals: Coleman Hess MD [Primary Care Provider] - - Patient Instructions - Post Discharge Activity
[2019-02-02] MEDS ORDERED: SODIUM CHLORIDE 0.9% 500 ML INFUS.BAG IV ONE (10:50)
[2019-02-02 11:33] LABS: BASO % 0.9 % (0-2.0); EOS % 4.4 % (0-4.5); HEMATOCRIT 30.7 % (35.4-49); HEMOGLOBIN 9.9 GM/dL (11.7-16.9); LYMPH % 13.6 % (8-40); MCH 26.9 pg (25.7-33.7); MCHC 32.1 g/dl (32.0-35.9); MEAN CELL VOLUME 83.8 fl (80-96); MEAN PLT VOLUME 10.8 fl (7.5-11.1); MONO % 6.8 % (3.8-10.2); NEUT % 74.3 % (42.8-82.8); PLATELET COUNT 106 K/MM3 (134-434); RBC 3.67 M/mm3 (4.00-5.60); RDW 15.7 % (11.9-15.9); WHITE BLOOD COUNT 6.5 K/mm3 (4.0-10.0)
[2019-02-02 12:02] LABS: ALBUMIN 3.2 g/dl (3.4-5.0); BILIRUBIN,TOTAL 0.4 mg/dL (0.2-1); BLOOD UREA NITROGEN 86.1 mg/dL (7-18); CALCIUM 9.1 mg/dL (8.5-10.1); CREATININE 2.9 mg/dL (0.55-1.3); POTASSIUM 4.7 mmol/L (3.5-5.1); TOT PROT 6.6 g/dl (6.4-8.2)
[2019-02-02 12:15] LABS: INR 2.34 (0.83-1.09); PROTHROMBIN TIME (PATIENT) 27.9 SEC (9.7-13.0)
--- NOTE | 2019-02-02 12:22 | CONSULT ---
Consult - text type - Consultation Consultation Note: Renal consult for ESRD on HD with GI bleed This is a 78 year old [place] gentleman with history of ESRD on HD (TTS), Hypertension, CHF, CAD, Hx of RV thrombus on A/C who presented from home with bright red blood from rectum. He was admitted to [facility] for clotted AVG last week during which time there were unable to declott the graft and had to place a tunneled catheter. Coumadin was held during his time there for procedure and he became subtheraputic and was placed on higher dose of coumadin on discharge. (Dr. Davila) noted him to have bright red blood with clotts from rectum last night and brought him to the ER. He denies any sob, cp, abd pain, fever, chills, N/V/D. Pt is on ASA/Plavix/Coumadin. PMhx: as above Allergies: NKDA Family hx: NC Social Hx: No T/A/D ROS: as per HPI, all other pertinent ros negative Home Medications Medication Instructions Recorded Aspirin Coated [Ecotrin -] 81 mg PO DAILY tablet.ec 02/27/18 Escitalopram Oxalate [Lexapro -] 5 mg PO HS tablet 02/27/18 Insulin Sliding Scale [Novolog 1 vial SQ TIDAC units 02/27/18 Vial Sliding Scale -] Rosuvastatin [Crestor -] 10 mg PO HS tablet 02/27/18 Tamsulosin HCl [Flomax -] 0.4 mg PO HS cap.er.24h 02/27/18 Metoprolol Tartrate [Lopressor -] 12.5 mg PO BID tablet 02/28/18 Calcium Acetate [Phoslo -] 667 mg PO TIDCM 04/30/18 Warfarin Na [Coumadin -] 4 mg PO ASDIR 07/23/18 Warfarin Sodium [Coumadin] 2 mg PO ASDIR 07/23/18 Clopidogrel Bisulfate [Plavix] 75 mg PO DAILY 08/24/18 Insulin Glargine,Hum.rec.anlog 25 unit SQ HS 08/24/18 [Lantus] Midodrine HCl [Proamatine -] 5 mg PO ASDIR 08/24/18 Vital Signs Temperature 97.8 F 02/02/19 09:31 Pulse Rate 63 02/02/19 09:31 Respiratory Rate 18 02/02/19 09:31 Blood Pressure 115/60 02/02/19 09:31 O2 Sat by Pulse Oximetry (%) 100 02/02/19 09:31 Intake & Output 01/30/19 01/31/19 02/01/19 02/02/19 23:59 23:59 23:59 23:59 Weight 62.596 kg NAD on room air neck supple, no JVD RRR, no M/R + rales left lung base, no wheeze soft NT/ND no LE edema right IJ tunneled catheter CBC, BMP 02/02/19 11:10 02/02/19 11:10 78 year old [place] gentleman with history of ESRD on HD (TTS), Hypertension , CHF, CAD, Hx of RV thrombus on A/C who presented from home with bright red blood from rectum. #Lower GI bleed #Acute on chronic anemia #ESRD on HD #Hx of RV thrombus on warfarin #Hx of CAD on ASA/Plavix #Hx of CHF outpatient Hgb at dialysis was > 11 INR is 2.3, unlikely to need FFP as pt does not appear to be actively bleeding will plan for dialysis today with UF as tolerated will repeat CBC before dialysis GI consult for GI bleed Cardiology aware, discussed case, will consider discontinuation of warfarin this admission if no RV thrombus present continue ASA/Plavix as per cardiology Thank you Will follow Florencio Del Cid DO
[2019-02-02] MEDS ORDERED: SODIUM CHLORIDE 250 ML IV PRN (12:45)
[2019-02-02] MEDS ORDERED: IRON SUCROSE INJECTION 100 MG in SODIUM CHLORIDE 95 ML IVPB ONE (13:00)
[2019-02-02] MEDS ORDERED: EPOETIN ALFA 20,000 UNIT/1 ML VIAL IVPUSH ONE (13:00)
--- NOTE | 2019-02-02 13:10 | PDOC ---
Attending Attestation - Resident Resident Name: Yousuf Mcmahan - ED Attending Attestation I have performed the following: I have examined & evaluated the patient, The case was reviewed & discussed with the resident, I agree w/resident's findings & plan - HPI HPI: 02/02/19 13:07 78-year-old male with history of end-stage renal disease on dialysis presents with painless bright red blood per rectum, no lightheadedness or syncope, no history of GI bleed for patient. - Physicial Exam PE: 02/02/19 13:07 Hemodynamically stable, O2 sat normal Slight pallor, no jaundice Lungs are clear, abdomen is soft/nontender/nondistended, no guarding or rebound or masses. Guaiac positive per resident note Right chest permacath for dialysis - Medical Decision Making 02/02/19 13:08 78-year-old male with end-stage renal disease presents with painless bright red blood per rectum, hemodynamically stable without peritoneal findings on exam. Labs, transient CBC Due to for dialysis today, renal consult EKG Transfuse as needed with dialysis Heart Score/ECG Review #1 ECG reviewed & interpreted by me at: 10:46 General ECG Interpretation: Sinus Rhythm, Normal Rate (63), Normal Intervals ( qtc 452, LVH), No acute ischemic changes (TWI I/AVL, anterolateral infarct)
[2019-02-02] MEDS ORDERED: PANTOPRAZOLE SODIUM 40 MG VIAL IVPUSH ONE (13:18)
[2019-02-02] MEDS ORDERED: PANTOPRAZOLE SODIUM 80 MG in SODIUM CHLORIDE 100 ML IVPB SCH (13:30)
[2019-02-02] MEDS ORDERED: PANTOPRAZOLE SODIUM 40 MG VIAL ONE (14:01)
--- NOTE | 2019-02-02 14:18 | CON.GI ---
Consult Consult Specialty:: GI Referred by:: Dr. Junior Reason for Consultation:: Rectal bleeding. - History of Present Illness Chief Complaint: Rectal bleeding History of Present Illness: 78M admitted through [facility] ER for evaluation of rectal bleeding. He was recently admitted to [facility] last week for evaluation of clotted AV graft. a tunnel catheter was placed and he was discharged 01/30. He is maintained on ASA/ Plavix (Significant SD 08/17) and coumadin (secondary to LV thrombus diagnosed Early this evening, his noted Mr. Davila to have a bloody bowel movement (dark, with clots). He had three such BM's promting ER visit. BP 115 systolic with P: 63 (beta blocked). He denies any associated abdominal pain. There has been no nausea/vomiting. A 250cc fluid bolus was to be given in the ER. When I had seen him in the ED his BP was 140/70 and he had received about only 1/4 of the initial bolus. He may have had a colonoscopy at age 49 that was OK. He also had an upper GI bleed 08/17 after his cardiac event. Lola, his , explained that NG lavage was performed and he was treated conservatvly secondary to his tenuous cardiac status at that time. He has never had an upper endoscopy. There is no family history of colorectal cancer or other GI malignancy. Home medication lest in ER note does not include GI prohylaxis. Dr. Davila believes that her 's usual Hgb is between 9-10. 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 No: Addictions, Bipolar, Depression, Panic, Psychosis, Schizophrenia, Other Endocrine: Yes: Diabetes Mellitus. No: Standard's Disease, Laquita's Disease, Diabetes Insipidus, Hyperparathyroidism, Hyperthyroidism, Hypothyroidism, Osteopenia, SIADH, Other - Past Surgical History Past Surgical History: Yes: Stent (Cardiac stenting, shoulder surgery, tunnel catheter placement) - Alcohol/Substance Use Hx Alcohol Use: No History of Substance Use: reports: None - Smoking History Smoking history: Never smoked Have you smoked in the past 12 months: No - Social History Usual Living Arrangement: With Spouse ADL: Family Assistance Place of : Other ([place]) History of Recent Travel: No Home Medications - Allergies Allergies/Adverse Reactions: Allergies Allergy/AdvReac Type Severity Reaction Status Date / Time No Known Allergies Allergy Verified 02/02/19 09:29 - Home Medications Home Medications: Ambulatory Orders Aspirin Coated [Ecotrin -] 81 mg PO DAILY tablet.ec 02/27/18 Escitalopram Oxalate [Lexapro -] 5 mg PO HS tablet 02/27/18 Insulin Sliding Scale [Novolog Vial Sliding Scale -] 1 vial SQ TIDAC units Rosuvastatin [Crestor -] 10 mg PO HS tablet 02/27/18 Tamsulosin HCl [Flomax -] 0.4 mg PO HS cap.er.24h 02/27/18 Metoprolol Tartrate [Lopressor -] 12.5 mg PO BID tablet 02/28/18 Calcium Acetate [Phoslo -] 667 mg PO TIDCM 04/30/18 Warfarin Na [Coumadin -] 4 mg PO ASDIR 07/23/18 Warfarin Sodium [Coumadin] 2 mg PO ASDIR 07/23/18 Clopidogrel Bisulfate [Plavix] 75 mg PO DAILY 08/24/18 Insulin Glargine,Hum.rec.anlog [Lantus] 25 unit SQ HS 08/24/18 Midodrine HCl [Proamatine -] 5 mg PO ASDIR 08/24/18 Family Disease History - Family Disease History Other Family History: Healthy brother and sister, no family history of colorectal cancer or other GI malignancy Review of Systems - Review of Systems Constitutional: denies: Chills Cardiovascular: denies: Chest Pain Respiratory: denies: SOB Gastrointestinal: reports: Rectal Bleeding. denies: Melena, Nausea, Vomiting, Vomiting Blood Physical Exam-GI Vital Signs: Vital Signs Temperature Not taken 02/02/19 1400 Pulse Rate 68 02/02/19 1400 Respiratory Rate 18 02/02/19 1400 Blood Pressure 139/70 02/02/19 1400 O2 Sat by Pulse Oximetry (%) 98% on RA 02/02/19 1400 Constitutional: Yes: Calm Eyes: No: Sclera Icterus Cardiovascular: Yes: Regular Rate and Rhythm. No: Murmur Respiratory: Yes: Diminished (at bases bilaterally with poor insp effort) Gastrointestinal Inspection: No: Distention, Scars ...Auscultate: Yes: Normoactive Bowel Sounds ...Palpate: Yes: Soft. No: Hepatomegaly, Splenomegaly, Tenderness ...Percussion: No: Tympanitic ...Rectal Exam: Yes: Other (No external lesions, no masses, appearance of old/ dark blood on tip of glove) Edema: Yes Edema: LLE: Trace, RLE: Trace Neurological: Yes: Alert Labs: CBC, BMP 02/02/19 11:10 02/02/19 11:10 INR, PTT INR 2.34 (0.83-1.09) H 02/02/19 11:10 Problem List - Problems (1) GI bleed Assessment/Plan: In the setting of DAPT and Coumadin (recently bridged with heparin last week while admitted to [facility]). Hemodynamic stability suggestive of LGIB, however with unevaluated UGIB history advise: NPO ICU monitoring, aggressive correction of coagulopathy if active bleeding continues along with CTA of the abdomen and pelvis to help localize bleeding source and obtain hematology input PPI drip for now. advised 40mg bolus to ER resident Martir followed by 8mg/hr Monitor H/H Cardiology consult placed. Spoke with Dr. Moreno and Dr. Davila. Will wait for now prior to deciding re: endoscopic evalution Dr. Fraga will be covering 02/03-02/04 Dr. Mak will be covering 02/05 through the weekend Code(s): K92.2 - GASTROINTESTINAL HEMORRHAGE, UNSPECIFIED Qualifiers: GI bleed type/associated pathology: unspecified gastrointestinal hemorrhage type Qualified Code(s): K92.2 - Gastrointestinal hemorrhage, unspecified
--- NOTE | 2019-02-02 14:33 | EKG ---
Test Reason : Blood Pressure : / mmHG Vent. Rate : 063 BPM Atrial Rate : 063 BPM P-R Int : 202 ms QRS Dur : 098 ms QT Int : 442 ms P-R-T Axes : 018 -61 121 degrees QTc Int : 452 ms NORMAL SINUS RHYTHM LEFT AXIS DEVIATION LEFT VENTRICULAR HYPERTROPHY WITH REPOLARIZATION ABNORMALITY INFERIOR INFARCT (CITED ON OR BEFORE 09-APR-2016) ANTEROLATERAL INFARCT (CITED ON OR BEFORE 02-JAN-2015) ABNORMAL ECG Confirmed by MD BURROUGHS MOYSES ([id number]) on 02/02/2019 2:33:05 PM Referred By: Confirmed By:TAMIKO BURROUGHS MD
[2019-02-02] MEDS ORDERED: MIDODRINE HCL 5 MG TABLET PO ONE (15:18)
--- NOTE | 2019-02-02 15:58 | CONSULT ---
Consultation: REQUESTING PROVIDER: Dr. 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 Patient is awake and alert but is unclear of many details of his history. Per records, patient's Dr. Davila reported that she found him in bed with his sheets covered in blood. Patient himself reports 4 episodes of bright red blood in his stool and states that the blood coated his stool but did not overtly see drops of blood in the toilet. Denies any associated abdominal pain, nausea or vomiting. Reports that this has never happened to him before. Denies NSAID use. Denies chest pain, shortness of breath, fevers, chills. Denies sick contacts. Patient was evaluated during his dialysis session. Smoking: never Alcohol: on occasion Drugs: none Family History: Denies family history of heart disease, diabetes, cancer or stroke REVIEW OF SYSTEMS: CONSTITUTIONAL: Absent: fever, chills, diaphoresis, generalized weakness, malaise, loss of appetite, weight change HEENT: Absent: rhinorrhea, nasal congestion, throat pain, throat swelling, difficulty swallowing, mouth swelling, ear pain, eye pain, visual changes CARDIOVASCULAR: Absent: chest pain, syncope, palpitations, irregular heart rate, lightheadedness , peripheral edema RESPIRATORY: Absent: cough, shortness of breath, dyspnea with exertion, orthopnea, wheezing, stridor, hemoptysis GASTROINTESTINAL: Absent: abdominal pain, abdominal distension, nausea, vomiting, diarrhea, constipation, melena, hematochezia GENITOURINARY: Absent: dysuria, frequency, urgency, hesitancy, hematuria, flank pain, genital pain MUSCULOSKELETAL: Absent: myalgia, arthralgia, joint swelling, back pain, neck pain SKIN: Absent: rash, itching, pallor HEMATOLOGIC/IMMUNOLOGIC: Absent: easy bleeding, easy bruising, lymphadenopathy, frequent infections ENDOCRINE: Absent: unexplained weight gain, unexplained weight loss, heat intolerance, cold intolerance NEUROLOGIC: Absent: headache, focal weakness or paresthesias, dizziness, unsteady gait, seizure, mental status changes, bladder or bowel incontinence PSYCHIATRIC: Absent: anxiety, depression, suicidal or homicidal ideation, hallucinations. PHYSICAL EXAMINATION Vital Signs - 24 hr 02/02/19 02/02/19 02/02/19 09:31 14:35 14:40 Temperature 97.8 F 98.2 F Pulse Rate 63 66 60 Respiratory 18 18 18 Rate Blood Pressure 115/60 124/74 125/64 O2 Sat by Pulse 100 Oximetry (%) 02/02/19 15:10 Temperature Pulse Rate 61 Respiratory 18 Rate Blood Pressure 115/64 O2 Sat by Pulse Oximetry (%) GENERAL: A&Ox2, no acute distress EYES: PERRLA, EOMI ENT: Moist mucus membranes NECK: No JVD LUNGS: CTA, no wheezes CHEST: tunneled catheter in place HEART: Distant heart sounds, regular rate and rhythm, systolic murmur ABDOMEN: Soft, nontender, BS present EXTREMITIES: 2+ pulses, no edema. NEUROLOGICAL: Cranial nerves II-XII intact. Laboratory Results - last 24 hr 02/02/19 02/02/19 02/02/19 11:10 11:10 11:10 WBC 6.5 RBC 3.67 L Hgb 9.9 L Hct 30.7 L D MCV 83.8 MCH 26.9 MCHC 32.1 RDW 15.7 D Plt Count 106 L D MPV 10.8 Absolute Neuts (auto) 4.8 Neutrophils % 74.3 Lymphocytes % 13.6 D Monocytes % 6.8 Eosinophils % 4.4 Basophils % 0.9 Nucleated RBC % 0 PT with INR 27.90 H INR 2.34 H Sodium 142 Potassium 4.7 Chloride 109 H Carbon Dioxide 28 Anion Gap 5 L BUN 86.1 H Creatinine 2.9 H Est GFR (CKD-EPI)AfAm 22.80 Est GFR (CKD-EPI)NonAf 19.67 Random Glucose 287 H Calcium 9.1 Iron 63 TIBC 264 Iron Saturation 23 Unsaturated IBC 201 Total Bilirubin 0.4 AST 25 ALT 39 Alkaline Phosphatase 86 Creatine Kinase Troponin I Total Protein 6.6 Albumin 3.2 L Stool Occult Blood Blood Type Antibody Screen 02/02/19 02/02/19 02/02/19 11:10 11:10 11:30 WBC RBC Hgb Hct MCV MCH MCHC RDW Plt Count MPV Absolute Neuts (auto) Neutrophils % Lymphocytes % Monocytes % Eosinophils % Basophils % Nucleated RBC % PT with INR INR Sodium Potassium Chloride Carbon Dioxide Anion Gap BUN Creatinine Est GFR (CKD-EPI)AfAm Est GFR (CKD-EPI)NonAf Random Glucose Calcium Iron TIBC Iron Saturation Unsaturated IBC Total Bilirubin AST ALT Alkaline Phosphatase Creatine Kinase 56 Troponin I 0.02 Total Protein Albumin Stool Occult Blood Positive Blood Type A POSITIVE Antibody Screen Negative Active Medications Generic Name Dose Route Start Last Admin Trade Name Freq PRN Reason Stop Dose Admin Calcium Acetate 667 mg 02/02/19 17:30 Phoslo - PO TIDCM COREY Chlorhexidine Gluconate 1 applic 02/02/19 22:00 Hibiclens For Decolonization - TP HS COREY Escitalopram Oxalate 5 mg 02/02/19 22:00 Lexapro - PO HS COREY Sodium Chloride 250 mls @ 3,000 mls/hr 02/02/19 12:45 Normal Saline - IV 02/03/19 12:44 PRN PRN Hypotension during Dialysis Sodium Chloride 1,000 mls @ 50 mls/hr 02/02/19 16:00 Normal Saline - IV 02/03/19 11:59 ASDIR COREY Insulin Aspart 0 vial 02/02/19 16:30 Novolog Vial Sliding Scale - SQ ACHS COREY Protocol Insulin Detemir 25 units 02/02/19 22:00 Levemir Vial SQ HS COREY Midodrine 5 mg 02/02/19 16:00 Proamatine - PO ASDIR COREY Mupirocin 1 applic 02/02/19 22:00 Bactroban Ointment (For Decolonization) - NS 02/07/19 21:59 BID COREY Pantoprazole Sodium 40 mg 02/02/19 22:00 Protonix - PO BID COREY CBC, BMP 02/02/19 14:50 02/02/19 11:10 ASSESSMENT/PLAN: 78 year old male with a past medical history of NSTEMI, CAD s/p 5 stents (most recent last year) on dual ASA/plavix therapy, CHF, diabetes, ESRD on dialysis, 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 #Acute Lower Gastrointestinal Hemorrhage #Blood Loss Anemia #Thrombocytopenia #ESRD on Dialysis #Hx NSTEMI #CAD s/p 5 Stents #DM #Hx R Ventricular Thrombus Neurological -no acute neurologic deficits Cardiovascular -history of NSTEMI, CAD s/p 5 stents, CHF, and RV thrombus -patient was on aspirin, plavix, and warfarin -hold all anticoagulation in the setting of lower GI bleed -monitor blood pressures as they appeared to be low, most recent at 3pm was 115/ 64 -continue midodrine as per home dose for BP -will need to have a discussion about holding AC in the future given risks of future GI bleeding, may need to stop plavix and warfarin and maintain on baby aspirin, but will have a discussion with cardiology. At present moment, hold all AC and antiplatelet agents until stable. -Dr. Moreno recommendations appreciated -EKG normal sinus rhythm with LAD and QTc 452 with LVH and old infarcts noted -hx R ventricular thrombus; holding warfarin; INR 2.34 today Pulmonary -no acute pulmonary pathology Gastrointestinal -acute lower gastrointestinal hemorrhage -keep NPO during acute bleed -monitor vital signs Q1-2 hours -2 large-bore IVs -transfuse PRBCs with a hgb goal of 8 due to large history of cardiac disease -hold all anticoagulants and antiplatelet agents -INR 2.34, check INR in morning -GI consultation Dr. Chiu recommendations appreciated -if bleeding continues, will get CTA abdomen and pelvis -on protonix ggt Renal -ESRD on dialysis -dialyze per nephrology through tunneled catheter -midodrine to maintain BPs Endocrine -diabetes mellitus -on long acting insulin at home 25U -continue levemir 25 at night per home medications -insulin sliding scale coverage FEN -getting dialysis now -recheck CBC to check for drop in H&H -transfuse as needed -NPO while Prophylaxis -SCDs -protonix ggt Disposition Will monitor in ICU, if stable can downgrade to telemetry tomorrow or the day after Visit type - Emergency Visit Emergency Visit: Yes Care time: The patient presented to the Emergency Department on the above date and was hospitalized for further evaluation of their emergent condition. - New Patient This patient is new to me today: Yes Date on this admission: 02/02/19 - Critical Care Critical Care patient: Yes Total Critical Care Time (in minutes): 45 Critical Care Statement: The care of this patient involved high complexity decision making to prevent further life threatening deterioration of the patient 's condition and/or to evaluate & treat vital organ system(s) failure or risk of failure. ATTENDING PHYSICIAN STATEMENT I saw and evaluated the patient. I reviewed the resident's note and discussed the case with the resident. I agree with the resident's findings and plan as documented. SUBJECTIVE: OBJECTIVE: ASSESSMENT AND PLAN:
[2019-02-02] MEDS ORDERED: SODIUM CHLORIDE 1,000 ML IV SCH (16:00)
[2019-02-02 16:14] LABS: HEMATOCRIT 27.4 % (35.4-49); MCH 27.6 pg (25.7-33.7); MCHC 32.8 g/dl (32.0-35.9); MEAN CELL VOLUME 84.1 fl (80-96); PLATELET COUNT 97 K/MM3 (134-434); RBC 3.26 M/mm3 (4.00-5.60); RDW 15.7 % (11.9-15.9); WHITE BLOOD COUNT 6.8 K/mm3 (4.0-10.0)
[2019-02-02] MEDS: CALCIUM ACETATE 667 MG CAPSULE (FP) PO SCH (19:58)
[2019-02-02] MEDS: INSULIN SLIDING SCALE (NOVOLOG) 1 VIAL SQ SCH ×2 (20:00→21:44)
--- NOTE | 2019-02-02 20:12 | HP ---
Admitting History and Physical - Primary Care Physician PCP: Antolin Jean - Admission Chief Complaint: rectal bleeding History of Present Illness: 78 year old male S male with a past medical history of NSTEMI, ASHD/CAD (s /p 5 stents most recent last year), Rt ventricular/mural thrombus (on Warf/ ASA/ plavix) therapy, diabetes, ESRD on dialysis, who was recently admitted to [facility] for clotted AVF 1 week prior and was released late last week in stable condition; who according to ; he developed painless rectal bleed (with clots)when his Dr. Davila reported that she found him in bed with his sheets covered in blood. Denies any associated abdominal pain, nausea or vomiting. Denies NSAID use. Denies chest pain, shortness of breath, fevers, chills. Denies sick contacts. Patient was evaluated during his dialysis session. 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 No: Addictions, Bipolar, Depression, Panic, Psychosis, Schizophrenia, Other Endocrine: Yes: Diabetes Mellitus. No: [place]'s Disease, [place]'s Disease, Diabetes Insipidus, Hyperparathyroidism, Hyperthyroidism, Hypothyroidism, Osteopenia, SIADH, Other - Past Surgical History Past Surgical History: Yes: AV Fistula/Graft, Stent (Cardiac stenting, shoulder surgery, tunnel catheter placement) - Smoking History Smoking history: Never smoked Have you smoked in the past 12 months: No - Alcohol/Substance Use Hx Alcohol Use: No History of Substance Use: reports: None - Social History ADL: Family Assistance History of Recent Travel: No Home Medications - Allergies Allergies/Adverse Reactions: Allergies Allergy/AdvReac Type Severity Reaction Status Date / Time No Known Allergies Allergy Verified 02/02/19 09:29 - Home Medications Home Medications: Ambulatory Orders Aspirin Coated [Ecotrin -] 81 mg PO DAILY tablet.ec 02/27/18 Escitalopram Oxalate [Lexapro -] 5 mg PO HS tablet 02/27/18 Insulin Sliding Scale [Novolog Vial Sliding Scale -] 1 vial SQ TIDAC units Rosuvastatin [Crestor -] 10 mg PO HS tablet 02/27/18 Tamsulosin HCl [Flomax -] 0.4 mg PO HS cap.er.24h 02/27/18 Metoprolol Tartrate [Lopressor -] 12.5 mg PO BID tablet 02/28/18 Calcium Acetate [Phoslo -] 667 mg PO TIDCM 04/30/18 Warfarin Na [Coumadin -] 4 mg PO ASDIR 07/23/18 Warfarin Sodium [Coumadin] 2 mg PO ASDIR 07/23/18 Clopidogrel Bisulfate [Plavix] 75 mg PO DAILY 08/24/18 Insulin Glargine,Hum.rec.anlog [Lantus] 25 unit SQ HS 08/24/18 Midodrine HCl [Proamatine -] 5 mg PO ASDIR 08/24/18 Family Disease History - Family Disease History Family History: Unremarkable Other Family History: Healthy brother and sister, no family history of colorectal cancer or other GI malignancy Review of Systems - Review of Systems Constitutional: reports: No Symptoms Eyes: reports: No Symptoms HENT: reports: No Symptoms Neck: reports: No Symptoms Cardiovascular: reports: No Symptoms Respiratory: reports: No Symptoms Gastrointestinal: reports: Rectal Bleeding Genitourinary: reports: Frequency Musculoskeletal: reports: No Symptoms Integumentary: reports: No Symptoms Neurological: reports: No Symptoms Endocrine: reports: No Symptoms Hematology/Lymphatic: reports: No Symptoms Psychiatric: reports: No Symptoms Physical Examination Vital Signs: Vital Signs Temperature 98.4 F 02/02/19 18:45 Pulse Rate 78 02/02/19 18:45 Respiratory Rate 80 H 02/02/19 18:45 Blood Pressure 140/75 02/02/19 18:45 O2 Sat by Pulse Oximetry (%) 100 02/02/19 09:31 Findings/Remarks: skin--no rashes appreciated head--NC eyes--midline; EOMI oral--NL appearing mucous membrane; no droop neck--supple heart--RR lungs--grossly clear abd--BS+; NT, ND; stool (+) for blood ext--no atrophy; no pitting edema; (+) pulsation on LUE vessel; pedal pulses not palpated; ROM non painful back--no steffen tenderness neuro--awake; exhibits paucity of speech; is aware of surroundings and others ; good eye contact; follows basic commands; able to move his limbs purposefully; no gross unilat deficits; no tremors; rigidity appreciated CBCD WBC 6.8 K/mm3 (4.0-10.0) 02/02/19 14:50 RBC 3.26 M/mm3 (4.00-5.60) L 02/02/19 14:50 Hgb 9.0 GM/dL (11.7-16.9) L 02/02/19 14:50 Hct 27.4 % (35.4-49) L 02/02/19 14:50 MCV 84.1 fl (80-96) 02/02/19 14:50 MCHC 32.8 g/dl (32.0-35.9) 02/02/19 14:50 RDW 15.7 % (11.9-15.9) 02/02/19 14:50 Plt Count 97 K/MM3 (134-434) L 02/02/19 14:50 MPV 11.0 fl (7.5-11.1) 02/02/19 14:50 CMP Sodium 142 mmol/L (136-145) 02/02/19 11:10 Potassium 4.7 mmol/L (3.5-5.1) 02/02/19 11:10 Chloride 109 mmol/L (98-107) H 02/02/19 11:10 Carbon Dioxide 28 mmol/L (21-32) 02/02/19 11:10 Anion Gap 5 MMOL/L (8-16) L 02/02/19 11:10 BUN 86.1 mg/dL (7-18) H 02/02/19 11:10 Creatinine 2.9 mg/dL (0.55-1.3) H 02/02/19 11:10 Random Glucose 287 mg/dL (74-106) H 02/02/19 11:10 Calcium 9.1 mg/dL (8.5-10.1) 02/02/19 11:10 Total Bilirubin 0.4 mg/dL (0.2-1) 02/02/19 11:10 AST 25 U/L (15-37) 02/02/19 11:10 ALT 39 U/L (13-61) 02/02/19 11:10 Alkaline Phosphatase 86 U/L (45-117) 02/02/19 11:10 Total Protein 6.6 g/dl (6.4-8.2) 02/02/19 11:10 Albumin 3.2 g/dl (3.4-5.0) L 02/02/19 11:10 CARDIAC ENZYMES Creatine Kinase 56 U/L (26-308) 02/02/19 11:10 Troponin I 0.02 ng/ml (0.00-0.05) 02/02/19 11:10 INR, PTT INR 2.34 (0.83-1.09) H 02/02/19 11:10 Labs: CBC, BMP 02/02/19 14:50 02/02/19 11:10 Imaging - Results EKG: Report Reviewed Problem List - Problems (1) Rectal hemorrhage Assessment/Plan: acute onset w/o supra-therapeutic INR. No associated abd pains; n-v. Cause and location of bleed unclear? diverticular bleed; however, does not wish to undertake and further investigations at this time. 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 Code(s): I51.3 - INTRACARDIAC THROMBOSIS, NOT ELSEWHERE CLASSIFIED (5) Anemia Assessment/Plan: chronic; low grade; 2nd chronic disease; Hgb has dropped a bit following the hemorrhagic episode but not precipitously. PLAN: check CBC Code(s): D64.9 - ANEMIA, UNSPECIFIED Qualifiers: Chronic kidney disease stage: on chronic dialysis Qualified Code(s): N18.6 - End stage renal disease; D63.1 - Anemia in chronic kidney disease; Z99.2 - Dependence on renal dialysis (6) BPH (benign prostatic hypertrophy) Assessment/Plan: cont on Tamsulosin Code(s): N40.0 - BENIGN PROSTATIC HYPERPLASIA WITHOUT LOWER URINRY TRACT SYMP Qualifiers: Lower urinary tract symptom presence: symptoms present (7) CAD (coronary artery disease) Assessment/Plan: s/p multiple stenting: ON asa/plavix. Denies CP PLAN: resume BB Code(s): I25.10 - ATHSCL HEART DISEASE OF [place] CORONARY ARTERY W/O ANG PCTRS Qualifiers: Coronary Disease-Associated Artery/Lesion type: unspecified vessel or lesion type Associated angina: without angina (8) Hypotension Assessment/Plan: occuring during dialysis; remedied by Midodrine Code(s): I95.9 - HYPOTENSION, UNSPECIFIED Qualifiers: Hypotension type: unspecified hypotension type Qualified Code(s): I95.9 - Hypotension, unspecified (9) Hyperlipidemia Assessment/Plan: on statin Code(s): E78.5 - HYPERLIPIDEMIA, UNSPECIFIED Qualifiers: Hyperlipidemia type: unspecified Qualified Code(s): E78.5 - Hyperlipidemia , unspecified (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 ~~~~~~~~~~~~~~~~~~~~~~~~~~~~~~ Dr Jean
[2019-02-02] MEDS: INSULIN (LEVEMIR) 100 UNITS/ML UNITS SQ SCH (21:44)
[2019-02-02] MEDS: ROSUVASTATIN CA 10 MG TABLET (FP) PO SCH (21:50)
[2019-02-02] MEDS: PANTOPRAZOLE SODIUM 80 MG in SODIUM CHLORIDE 100 ML IVPB SCH (21:50)
[2019-02-02] MEDS: MUPIROCIN 2% TOPICAL OINTMENT FOR DECOLONIZATION NS SCH (21:50)
[2019-02-02] MEDS: CHLORHEXIDINE GLUCONATE 4% CLEANSER FOR DECOLONIZATION TP SCH (21:50)
[2019-02-02] MEDS: ESCITALOPRAM OXALATE 10 MG TABLET (FP) PO SCH (21:50)
[2019-02-02] MEDS ORDERED: PANTOPRAZOLE 40 MG TABLET (FP) PO SCH (22:00)
[2019-02-02 22:15] LABS: HEMATOCRIT 29.1 % (35.4-49); HEMOGLOBIN 9.4 GM/dL (11.7-16.9); MCHC 32.4 g/dl (32.0-35.9); MEAN CELL VOLUME 83.3 fl (80-96); MEAN PLT VOLUME 11.2 fl (7.5-11.1); PLATELET COUNT 104 K/MM3 (134-434); RBC 3.49 M/mm3 (4.00-5.60); RDW 15.6 % (11.9-15.9); WHITE BLOOD COUNT 8.3 K/mm3 (4.0-10.0)
[2019-02-03] MEDS: PANTOPRAZOLE SODIUM 80 MG in SODIUM CHLORIDE 100 ML IVPB SCH ×4 (01:25→21:25)
[2019-02-03 06:35] LABS: HEMATOCRIT 27.9 % (35.4-49); HEMOGLOBIN 9.1 GM/dL (11.7-16.9); MCH 27.2 pg (25.7-33.7); MCHC 32.6 g/dl (32.0-35.9); MEAN CELL VOLUME 83.5 fl (80-96); MEAN PLT VOLUME 11.1 fl (7.5-11.1); PLATELET COUNT 119 K/MM3 (134-434); RBC 3.35 M/mm3 (4.00-5.60); RDW 15.7 % (11.9-15.9); WHITE BLOOD COUNT 8.6 K/mm3 (4.0-10.0)
[2019-02-03 06:57] LABS: INR 2.25 (0.83-1.09); PROTHROMBIN TIME (PATIENT) 26.8 SEC (9.7-13.0)
--- NOTE | 2019-02-03 07:07 | PN ---
Physical Exam: SUBJECTIVE: Patient seen and examined at bedside this morning. Overight one dark colored, bloody bowel movement noted by nursing staff. He endorses diffuse cramping abdominal pain. Patient denies subjective fevers, chills, shortness of breath, chest pain. OBJECTIVE: Vital Signs Period Temp Pulse Resp BP Sys/Simons Pulse Ox Last 24 Hr 97.4 F-98.4 F 60-100 15-80 75-145/43-79 98-100 GENERAL: The patient is awake, alert, and oriented to person, place, in no acute distress. HEAD: Normocephalic, atraumatic. EYES: PERRL, extraocular movements intact, sclera anicteric. No conjunctiva pallor. ENT: Oropharynx clear without exudates, moist mucous membranes. NECK: Supple, without lymphadenopathy LUNGS: Breath sounds equal, clear to auscultation bilaterally, no wheezes, no crackles, no accessory muscle use. HEART: Regular rate and rhythm, S1, S2 without murmur, rub or gallop. ABDOMEN: Soft, nondistended. Mild tenderness to deep palpation bilateral lower quadrants. Hypooactive bowel sounds. No guarding, no rebound tenderness. EXTREMITIES: 2+ radial, dorsalis pedis pulses bilaterally, warm, well-perfused, no edema. Left upper extremity fistula with palpable thrill. NEUROLOGICAL: Cranial nerves II through XII grossly intact. Normal speech. PSYCH: Normal mood, normal affect. SKIN: Warm, dry. Laboratory Results - last 24 hr 02/02/19 02/02/19 02/02/19 11:10 11:10 11:10 WBC 6.5 RBC 3.67 L Hgb 9.9 L Hct 30.7 L D MCV 83.8 MCH 26.9 MCHC 32.1 RDW 15.7 D Plt Count 106 L D MPV 10.8 Absolute Neuts (auto) 4.8 Neutrophils % 74.3 Lymphocytes % 13.6 D Monocytes % 6.8 Eosinophils % 4.4 Basophils % 0.9 Nucleated RBC % 0 PT with INR 27.90 H INR 2.34 H Sodium 142 Potassium 4.7 Chloride 109 H Carbon Dioxide 28 Anion Gap 5 L BUN 86.1 H Creatinine 2.9 H Est GFR (CKD-EPI)AfAm 22.80 Est GFR (CKD-EPI)NonAf 19.67 POC Glucometer Random Glucose 287 H Calcium 9.1 Iron 63 TIBC 264 Iron Saturation 23 Unsaturated IBC 201 Total Bilirubin 0.4 AST 25 ALT 39 Alkaline Phosphatase 86 Creatine Kinase Troponin I Total Protein 6.6 Albumin 3.2 L Stool Occult Blood Blood Type Antibody Screen 02/02/19 02/02/19 02/02/19 11:10 11:10 11:30 WBC RBC Hgb Hct MCV MCH MCHC RDW Plt Count MPV Absolute Neuts (auto) Neutrophils % Lymphocytes % Monocytes % Eosinophils % Basophils % Nucleated RBC % PT with INR INR Sodium Potassium Chloride Carbon Dioxide Anion Gap BUN Creatinine Est GFR (CKD-EPI)AfAm Est GFR (CKD-EPI)NonAf POC Glucometer Random Glucose Calcium Iron TIBC Iron Saturation Unsaturated IBC Total Bilirubin AST ALT Alkaline Phosphatase Creatine Kinase 56 Troponin I 0.02 Total Protein Albumin Stool Occult Blood Positive Blood Type A POSITIVE Antibody Screen Negative 02/02/19 02/02/19 02/02/19 14:50 21:40 21:40 WBC 6.8 8.3 RBC 3.26 L 3.49 L Hgb 9.0 L 9.4 L Hct 27.4 L 29.1 L MCV 84.1 83.3 MCH 27.6 27.0 MCHC 32.8 32.4 RDW 15.7 15.6 Plt Count 97 L 104 L MPV 11.0 11.2 H Absolute Neuts (auto) Neutrophils % Lymphocytes % Monocytes % Eosinophils % Basophils % Nucleated RBC % PT with INR INR Sodium Potassium Chloride Carbon Dioxide Anion Gap BUN Creatinine Est GFR (CKD-EPI)AfAm Est GFR (CKD-EPI)NonAf POC Glucometer 226 Random Glucose Calcium Iron TIBC Iron Saturation Unsaturated IBC Total Bilirubin AST ALT Alkaline Phosphatase Creatine Kinase Troponin I Total Protein Albumin Stool Occult Blood Blood Type Antibody Screen 02/03/19 02/03/19 05:05 05:05 WBC 8.6 RBC 3.35 L Hgb 9.1 L Hct 27.9 L MCV 83.5 MCH 27.2 MCHC 32.6 RDW 15.7 Plt Count 119 L MPV 11.1 Absolute Neuts (auto) Neutrophils % Lymphocytes % Monocytes % Eosinophils % Basophils % Nucleated RBC % PT with INR 26.80 H INR 2.25 H Sodium Potassium Chloride Carbon Dioxide Anion Gap BUN Creatinine Est GFR (CKD-EPI)AfAm Est GFR (CKD-EPI)NonAf POC Glucometer Random Glucose Calcium Iron TIBC Iron Saturation Unsaturated IBC Total Bilirubin AST ALT Alkaline Phosphatase Creatine Kinase Troponin I Total Protein Albumin Stool Occult Blood Blood Type Antibody Screen Active Medications Generic Name Dose Route Start Last Admin Trade Name Freq PRN Reason Stop Dose Admin Calcium Acetate 667 mg 02/02/19 17:30 02/02/19 19:58 Phoslo - PO Not Given TIDCM COREY Chlorhexidine Gluconate 1 applic 02/02/19 22:00 02/02/19 21:50 Hibiclens For Decolonization - TP 1 applic HS COREY Administration Escitalopram Oxalate 5 mg 02/02/19 22:00 02/02/19 21:50 Lexapro - PO 5 mg HS COREY Administration Sodium Chloride 250 mls @ 3,000 mls/hr 02/02/19 12:45 Normal Saline - IV 02/03/19 12:44 PRN PRN Hypotension during Dialysis Sodium Chloride 1,000 mls @ 50 mls/hr 02/02/19 16:00 02/02/19 21:43 Normal Saline - IV 02/03/19 11:59 Not Given ASDIR [facility] Pantoprazole Sodium 80 mg/ 100 mls @ 10 mls/hr 02/02/19 16:00 02/03/19 01:25 Sodium Chloride IVPB Not Given Q10H COREY 8 MG/HR Insulin Aspart 0 vial 02/02/19 16:30 02/02/19 21:44 Novolog Vial Sliding Scale - SQ Not Given ACHS [facility] Protocol Insulin Detemir 25 units 02/02/19 22:00 02/02/19 21:44 Levemir Vial SQ Not Given [facility] Metoprolol Succinate 12.5 mg 02/03/19 10:00 Toprol Xl - PO BID COREY Midodrine 5 mg 02/03/19 10:00 Proamatine - PO MoWeFr@1000 [facility] Mupirocin 1 applic 02/02/19 22:00 02/02/19 21:50 Bactroban Ointment (For Decolonization) - NS 02/07/19 21:59 1 applic BID C[facility] Administration Rosuvastatin Calcium 10 mg 02/02/19 22:00 02/02/19 21:50 Crestor - PO 10 mg HS [facility] Administration Tamsulosin HCl 0.4 mg 02/03/19 22:00 Flomax - PO [facility] ASSESSMENT/PLAN: Patient is a 78 year old male with history of 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 Neurological -Patient is awake, alert in no acute distress -Monitor for signs of mental status changes Cardiovascular NSTEMI Coronary artery disease s/p 5 stents Hyperlipidemia Right ventricular mural thrombus -Currently holding Aspirin, Plavix, and chemical anticoagulation -Holding Coumadin. INR 2.25 -Metoprolol 12.5mg PO BID -Rosuvastatin 10mg PO HS -Cardiology recommendations (Dr. Moreno) appreciated. Pulmonary -Patient saturating well on room air. -Maintain oxygen saturation greater than 90% Gastrointestinal -Likely lower gastrointestinal bleeding -Hb/ Hct stable at 9.1/ 27.9. Follow repeat CBC at 13:00 today. -Protonix drip -Gastroenterology recommendations (Dr. Fraga) appreciated -NPO Endocrine Diabetes mellitus -Insulin sliding scale ACHS -Fingerstick blood glucose monitoring -Levemir 25units QHS Nephrologic ESRD on HD (Fri, Fri, Fri) -Last HD 02/02 patient tolerated well -Midodrine 5mg PO (Mon, Wed, Fri) -Nephrology recommendations (Dr. Del Cid) appreciated FEN -Fluids: IV normal saline at 50mL/ hour while NPO -Electrolytes: Within normal limits. Follow CMP, replete as necessary -Nutrition: NPO Prophylaxis -Holding chemical anticoagulation in setting of gastrointestinal bleeding Disposition: -Continue monitoring in ICU. Visit type - Emergency Visit Emergency Visit: Yes ED Registration Date: 02/02/19 Care time: The patient presented to the Emergency Department on the above date and was hospitalized for further evaluation of their emergent condition. - New Patient This patient is new to me today: Yes Date on this admission: 02/03/19 - Critical Care Critical Care patient: Yes Total Critical Care Time (in minutes): 35 Critical Care Statement: The care of this patient involved high complexity decision making to prevent further life threatening deterioration of the patient 's condition and/or to evaluate & treat vital organ system(s) failure or risk of failure. - Discharge Referral Referred to [facility] Med P.C.: No ATTENDING PHYSICIAN STATEMENT I saw and evaluated the patient. I reviewed the resident's note and discussed the case with the resident. I agree with the resident's findings and plan as documented. SUBJECTIVE: OBJECTIVE: ASSESSMENT AND PLAN:
[2019-02-03 07:30] LABS: BLOOD UREA NITROGEN 43.5 mg/dL (7-18); CALCIUM 8.6 mg/dL (8.5-10.1); MAGNESIUM 2.3 mg/dL (1.8-2.4); PHOSPHOROUS 3.2 mg/dL (2.5-4.9); POTASSIUM 4.8 mmol/L (3.5-5.1)
[2019-02-03] MEDS ORDERED: PT OWN MED DRAWER 7, Y5N ONE ×2 (07:37→18:10)
[2019-02-03] MEDS: CALCIUM ACETATE 667 MG CAPSULE (FP) PO SCH ×4 (07:51→17:00)
[2019-02-03] MEDS: MUPIROCIN 2% TOPICAL OINTMENT FOR DECOLONIZATION NS SCH ×2 (09:32→21:28)
[2019-02-03] MEDS: metoPROLOL SUCCINATE 25 MG TAB.SR.24H (FP) PO SCH ×2 (09:36→21:37)
[2019-02-03] MEDS ORDERED: METOPROLOL TARTRATE 5 MG/5 ML VIAL ONE (09:51)
[2019-02-03] MEDS: METOPROLOL TARTRATE 5 MG/5 ML VIAL IVPUSH SCH ×4 (09:53→21:37)
[2019-02-03] MEDS ORDERED: MIDODRINE HCL 5 MG TABLET PO SCH (10:00)
[2019-02-03] MEDS: INSULIN SLIDING SCALE (NOVOLOG) 1 VIAL SQ SCH ×3 (11:20→21:29)
--- NOTE | 2019-02-03 11:57 | PN ---
Teaching Attending Note Name of Resident: Capo Patrick ATTENDING PHYSICIAN STATEMENT I saw and evaluated the patient. I reviewed the resident's note and discussed the case with the resident. I agree with the resident's findings and plan as documented. SUBJECTIVE: Pt seen and examined in the ICU. Still some dark bloody bowel movements overnight. H/H has been stable, has not required PRBC transfusions. Denies abdominal pain, shortness of breath or chest pain. OBJECTIVE: Vital Signs Period Temp Pulse Resp BP Sys/Simons Pulse Ox Last 24 Hr 97.4 F-98.4 F 60-106 15-80 75-159/43-85 98-98 Intake & Output 01/31/19 02/01/19 02/02/19 02/03/19 23:59 23:59 23:59 23:59 Intake Total 70 Output Total 300 Balance -230 Weight 62.596 kg Gen: NAD at rest Heart: RRR Lung: decreased breath sounds at the bases Abd: soft, nontender Ext: no edema CBC, BMP 02/03/19 05:05 02/03/19 05:05 Active Medications Calcium Acetate (Phoslo -) 667 mg PO TIDCM [facility] Last Admin: 02/03/19 11:20 Dose: Not Given Chlorhexidine Gluconate (Hibiclens For Decolonization -) 1 applic TP HS [facility] Last Admin: 02/02/19 21:50 Dose: 1 applic Escitalopram Oxalate (Lexapro -) 5 mg PO HS [facility] Last Admin: 02/02/19 21:50 Dose: 5 mg Sodium Chloride (Normal Saline -) 250 mls @ 3,000 mls/hr IV PRN PRN PRN Reason: Hypotension during Dialysis Stop: 02/03/19 12:44 Sodium Chloride (Normal Saline -) 1,000 mls @ 50 mls/hr IV ASDIR [facility] Stop: 02/03/19 11:59 Last Admin: 02/02/19 21:43 Dose: Not Given Pantoprazole Sodium 80 mg/ (Sodium Chloride) 100 mls @ 10 mls/hr IVPB Q10H [facility] Last Admin: 02/03/19 08:04 Dose: 10 mls/hr Insulin Aspart (Novolog Vial Sliding Scale -) 1 vial SQ ACHS [facility]; Protocol Last Admin: 02/03/19 11:20 Dose: Not Given Insulin Detemir (Levemir Vial) 25 units SQ [facility] Last Admin: 02/02/19 21:44 Dose: Not Given Metoprolol Succinate (Toprol Xl -) 12.5 mg PO BID [facility] Last Admin: 02/03/19 09:36 Dose: 12.5 mg Metoprolol Tartrate (Lopressor Injection -) 5 mg IVPUSH Q4H-IV [facility] Last Admin: 02/03/19 09:53 Dose: 5 mg Midodrine (Proamatine -) 5 mg PO MoWeFr@1000 [facility] Last Admin: 02/03/19 09:36 Dose: 5 mg Mupirocin (Bactroban Ointment (For Decolonization) -) 1 applic NS BID [facility] Stop: 02/07/19 21:59 Last Admin: 02/03/19 09:32 Dose: 1 applic Rosuvastatin Calcium (Crestor -) 10 mg PO [facility] Last Admin: 02/02/19 21:50 Dose: 10 mg Tamsulosin HCl (Flomax -) 0.4 mg PO [facility] ASSESSMENT AND PLAN: GI Bleed likely Lower Anemia CAD LV Diastolic Dysfunction ESRD on HD Chronic LV Thrombus DM - monitor H/H - transfuse as needed - protonix - holding anticoagulation - NPO - ensure large bore peripheral access - GI f/u - HD per renal - can monitor on telemetry
--- NOTE | 2019-02-03 14:08 | PN ---
Progress Note (short form) - Note Progress Note: Renal follow up for ESRD on HD with GI bleed Pt seen and examined in the ICU awake and alert had dark bloody BM last night tolerated HD yesterday no blood transfusions given Vital Signs Temperature 98.1 F 02/03/19 08:16 Pulse Rate 88 02/03/19 13:47 Respiratory Rate 18 02/03/19 13:23 Blood Pressure 142/72 02/03/19 13:47 O2 Sat by Pulse Oximetry (%) 98 02/03/19 09:00 Intake & Output 01/31/19 02/01/19 02/02/19 02/03/19 23:59 23:59 23:59 23:59 Intake Total 70 Output Total 300 Balance -230 Weight 62.596 kg NAD on NC O2 RRR Dec BS no LE edema CBC, BMP 02/03/19 05:05 02/03/19 05:05 Current Medications Calcium Acetate (Phoslo -) 667 mg PO TIDCM [facility] Last Admin: 02/03/19 11:20 Dose: Not Given Chlorhexidine Gluconate (Hibiclens For Decolonization -) 1 applic TP HS [facility] Last Admin: 02/02/19 21:50 Dose: 1 applic Escitalopram Oxalate (Lexapro -) 5 mg PO [facility] Last Admin: 02/02/19 21:50 Dose: 5 mg Pantoprazole Sodium 80 mg/ (Sodium Chloride) 100 mls @ 10 mls/hr IVPB Q10H [facility] Last Admin: 02/03/19 08:04 Dose: 10 mls/hr Insulin Aspart (Novolog Vial Sliding Scale -) 1 vial SQ [facility]; Protocol Last Admin: 02/03/19 11:20 Dose: Not Given Insulin Detemir (Levemir Vial) 25 units SQ [facility] Last Admin: 02/02/19 21:44 Dose: Not Given Metoprolol Succinate (Toprol Xl -) 12.5 mg PO BID [facility] Last Admin: 02/03/19 09:36 Dose: 12.5 mg Metoprolol Tartrate (Lopressor Injection -) 5 mg IVPUSH Q4H-IV [facility] Last Admin: 02/03/19 13:47 Dose: 5 mg Midodrine (Proamatine -) 5 mg PO MoWeFr@1000 [facility] Last Admin: 02/03/19 09:36 Dose: 5 mg Mupirocin (Bactroban Ointment (For Decolonization) -) 1 applic NS BID [facility] Stop: 02/07/19 21:59 Last Admin: 02/03/19 09:32 Dose: 1 applic Rosuvastatin Calcium (Crestor -) 10 mg PO HS [facility] Last Admin: 02/02/19 21:50 Dose: 10 mg Tamsulosin HCl (Flomax -) 0.4 mg PO HS [facility] 78 year old [place] gentleman with history of ESRD on HD (TTS), Hypertension , CHF, CAD, Hx of RV thrombus on A/C who presented from home with bright red blood from rectum. #Lower GI bleed in setting of Coumadin/ASA/Plavix #Acute on chronic anemia #ESRD on HD #Hx of RV thrombus on warfarin #Hx of CAD on ASA/Plavix #Hx of CHF Hgb stable at this time, does not requie PRBC transfusion Would consider transfusion if Hgb < 8 given cardiac history GI consult noted, continue PPI no acute need for further dialysis todday, will anticipate next treatment being tomorrow. will plan to given AMY and venofer with dialysis OK to have CTA of the Abd if there is any signs of active bleeding Florencio Del Cid DO
--- NOTE | 2019-02-03 16:33 | PN ---
Progress Note (short form) - Note Progress Note: Current Medications Calcium Acetate (Phoslo -) 667 mg PO TIDCM [facility] Last Admin: 02/03/19 11:20 Dose: Not Given Chlorhexidine Gluconate (Hibiclens For Decolonization -) 1 applic TP [facility] Last Admin: 02/02/19 21:50 Dose: 1 applic Escitalopram Oxalate (Lexapro -) 5 mg PO [facility] Last Admin: 02/02/19 21:50 Dose: 5 mg Pantoprazole Sodium 80 mg/ (Sodium Chloride) 100 mls @ 10 mls/hr IVPB Q10H [facility] Last Admin: 02/03/19 08:04 Dose: 10 mls/hr Insulin Aspart (Novolog Vial Sliding Scale -) 1 vial SQ [facility]; Protocol Last Admin: 02/03/19 11:20 Dose: Not Given Insulin Detemir (Levemir Vial) 25 units SQ [facility] Last Admin: 02/02/19 21:44 Dose: Not Given Metoprolol Succinate (Toprol Xl -) 12.5 mg PO BID [facility] Last Admin: 02/03/19 09:36 Dose: 12.5 mg Metoprolol Tartrate (Lopressor Injection -) 5 mg IVPUSH Q4H-IV [facility] Last Admin: 02/03/19 13:47 Dose: 5 mg Midodrine (Proamatine -) 5 mg PO MoWeFr@1000 [facility] Last Admin: 02/03/19 09:36 Dose: 5 mg Mupirocin (Bactroban Ointment (For Decolonization) -) 1 applic NS BID [facility] Stop: 02/07/19 21:59 Last Admin: 02/03/19 09:32 Dose: 1 applic Rosuvastatin Calcium (Crestor -) 10 mg PO [facility] Last Admin: 02/02/19 21:50 Dose: 10 mg Tamsulosin HCl (Flomax -) 0.4 mg PO [facility] Laboratory Results - last 24 hr 02/02/19 02/02/19 02/03/19 21:40 21:40 05:05 WBC 8.3 RBC 3.49 L Hgb 9.4 L Hct 29.1 L MCV 83.3 MCH 27.0 MCHC 32.4 RDW 15.6 Plt Count 104 L MPV 11.2 H PT with INR 26.80 H INR 2.25 H Sodium Potassium Chloride Carbon Dioxide Anion Gap BUN Creatinine Est GFR (CKD-EPI)AfAm Est GFR (CKD-EPI)NonAf POC Glucometer 226 Random Glucose Calcium Phosphorus Magnesium 02/03/19 02/03/19 02/03/19 05:05 05:05 11:18 WBC 8.6 RBC 3.35 L Hgb 9.1 L Hct 27.9 L MCV 83.5 MCH 27.2 MCHC 32.6 RDW 15.7 Plt Count 119 L MPV 11.1 PT with INR INR Sodium 145 Potassium 4.8 Chloride 108 H Carbon Dioxide 29 Anion Gap 9 BUN 43.5 H Creatinine 2.0 H Est GFR (CKD-EPI)AfAm 35.73 Est GFR (CKD-EPI)NonAf 30.83 POC Glucometer 309 Random Glucose 240 H Calcium 8.6 Phosphorus 3.2 Magnesium 2.3 02/03/19 16:08 WBC RBC Hgb Hct MCV MCH MCHC RDW Plt Count MPV PT with INR INR Sodium Potassium Chloride Carbon Dioxide Anion Gap BUN Creatinine Est GFR (CKD-EPI)AfAm Est GFR (CKD-EPI)NonAf POC Glucometer 362 Random Glucose Calcium Phosphorus Magnesium Vital Signs Temperature 97.8 F 02/03/19 16:00 Pulse Rate 86 02/03/19 16:00 Respiratory Rate 18 02/03/19 16:00 Blood Pressure 153/72 02/03/19 16:00 O2 Sat by Pulse Oximetry (%) 98 02/03/19 09:00 CC: Bloody BM in early AM ``````````````````````` skin--NL color eyes--anicteric lungs--grossly clear heart--RR chest--with supraclav catheter (dialysis) abd--soft, BS+ ext--Pulsation on the RUE fistula but no trill neuro--awake; alert to baseline; follows commands; affect flat; no gross deficits or rigidity `````````````````````````````````````````` Summ > rectal bleed--underlying cause unclear; would need endoscopy but INR still high, and is fraught with potential complications (as had been the case in the past). Will hope the bleeding subsides once the INR drifts below 1.5. not in favor of aggressive measures as co-morbidities make risks for complications much higher. PLAN: clear liquids for now; hold all antiPLt drugs; follow CBC > DM--BS high; back on insulin w/ coverage > On alf a/c--has been on Warf/asa/Plavix for mural heart thrombus, but now deemed to be absent on 2 recent echoes. Cardiology feels he should no longer require a/c PLAN: stop Warf > ASHD--with multiple stenting in the past; currently stable; will need either ASA or Plavix once GI bleeding resolved PLAN: cont BB for now > ESRD--on HD, as per Renal. ~~~~~~~~~~~~~~~~~~~~~~~~~~~~ Discussed with at bedside `````````````````````````````` Dr Jean Problem List - Problems (1) Rectal hemorrhage Code(s): K62.5 - HEMORRHAGE OF ANUS AND RECTUM (2) Diabetes Code(s): E11.9 - TYPE 2 DIABETES MELLITUS WITHOUT COMPLICATIONS Qualifiers: Diabetes mellitus type: type 2 Diabetes mellitus adjunct faculty for medical terminology insulin use: with adjunct faculty for medical terminology use Diabetes mellitus complication detail: with other ophthalmic complication (3) ESRD (end stage renal disease) on dialysis Code(s): N18.6 - END STAGE RENAL DISEASE; Z99.2 - DEPENDENCE ON RENAL DIALYSIS (4) Ventricular mural thrombus Code(s): I51.3 - INTRACARDIAC THROMBOSIS, NOT ELSEWHERE CLASSIFIED (5) Anemia Code(s): D64.9 - ANEMIA, UNSPECIFIED Qualifiers: Chronic kidney disease stage: on chronic dialysis Qualified Code(s): N18.6 - End stage renal disease; D63.1 - Anemia in chronic kidney disease; Z99.2 - Dependence on renal dialysis (6) BPH (benign prostatic hypertrophy) Code(s): N40.0 - BENIGN PROSTATIC HYPERPLASIA WITHOUT LOWER URINRY TRACT SYMP Qualifiers: Lower urinary tract symptom presence: symptoms present (7) CAD (coronary artery disease) Code(s): I25.10 - ATHSCL HEART DISEASE OF [place] CORONARY ARTERY W/O ANG PCTRS Qualifiers: Coronary Disease-Associated Artery/Lesion type: unspecified vessel or lesion type Associated angina: without angina (8) Hypotension Code(s): I95.9 - HYPOTENSION, UNSPECIFIED Qualifiers: Hypotension type: unspecified hypotension type Qualified Code(s): I95.9 - Hypotension, unspecified (9) Hyperlipidemia Code(s): E78.5 - HYPERLIPIDEMIA, UNSPECIFIED Qualifiers: Hyperlipidemia type: unspecified Qualified Code(s): E78.5 - Hyperlipidemia , unspecified (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
--- NOTE | 2019-02-03 19:08 | PN.GI ---
GI Progress Note Subjective: spoke to his at length, patient is very frail and has cardiac arrest in the past, hd bloody stool this lunch time, no further bleeding - Objective Vital Signs: Vital Signs Temperature 97.8 F 02/03/19 16:00 Pulse Rate 88 02/03/19 18:13 Respiratory Rate 18 02/03/19 18:13 Blood Pressure 136/65 02/03/19 18:13 O2 Sat by Pulse Oximetry (%) 98 02/03/19 09:00 Constitutional: Well Nourished Eyes: Yes: Conjunctiva Clear HENT: Yes: Atraumatic Neck: Yes: Trachea Midline Cardiovascular: Yes: Regular Rate and Rhythm Respiratory: Yes: CTA Bilaterally Gastrointestinal Inspection: No: Ascites ...Auscultate: Yes: Normoactive Bowel Sounds ...Palpate: Yes: Soft. No: Firm/Rigid, Guarding, Splenomegaly, Tenderness, Tenderness, Epigastium Labs: CBC, BMP 02/03/19 05:05 02/03/19 05:05 INR, PTT INR 2.25 (0.83-1.09) H 02/03/19 05:05 Problem List - Problems (1) GI bleed Assessment/Plan: lower gi bleeding--stable, no active bleeding at this time R> may have clear liquids continue supoortive care, will need reverse anticoagulation unless life threatening bleed occurs agrees with conservative management as patient is very frail Code(s): K92.2 - GASTROINTESTINAL HEMORRHAGE, UNSPECIFIED Qualifiers: GI bleed type/associated pathology: unspecified gastrointestinal hemorrhage type Qualified Code(s): K92.2 - Gastrointestinal hemorrhage, unspecified
--- NOTE | 2019-02-03 20:55 | CON.CARD ---
Consult Consult Specialty:: cardiology Reason for Consultation:: bleed in the setting of "triple therapy (ASA, clopidogrel, warfarin)" - History of Present Illness Chief Complaint: Pt A&Ox3; undergoing hemodialysis;presently without abdominal discomfort, chest pain, dizziness. Feels weak. History of Present Illness: Mr. Davila is a 78 yr old man (b. [place]) with history of ESRD on HD (TTS), s/p NSTEMI several years ago, s/p coronary stents (the last > 1 year ago), Hypertension, diastolic CHF (LVEF 50-55 %, with LV regional wall motion abnormalities, on 2018 ECHO), Hx of RV thrombus-->warfarin (though two transthoracic ECHOs in the past year, the latest last week at [facility], noted apparent resolution of ventricular thrombus), who presented from home with a large amount bright red blood from rectum (observed by pt's , Dr. Mp Davila). He was admitted to [facility] for clotted AVG last week during which time there were unable to declot the graft, and had to place a tunneled catheter. Coumadin was held during his time there for procedure; he became subtheraputic and was placed on higher dose of coumadin on discharge. He denies any sob, cp, abd pain, fever, chills, N/V/D. Pt is on ASA/Plavix/ Coumadin. - History Source History Provided By: Patient, Family Member (), Medical Record Limitations to Obtaining History: Poor Historian - Past Medical History [employer]: Yes: CVA, Other (had CVA in past with full recovery) Cardio/Vascular: Yes: CAD, CHF, HTN, Hyperlipdemia, [place], Other (LV Thrombus) Pulmonary: Yes: Other (PLEURAL EFFUSION) Gastrointestinal: Yes: GI Bleed (long agao) Renal/: Yes: Renal Failure, Hemodialysis, Other (BUN is elevated with slight elevation of creatinine) Psych: Yes: Anxiety. No: Addictions, Bipolar, Depression, Panic, Psychosis, Schizophrenia, Other Endocrine: Yes: Diabetes Mellitus. No: [place]'s Disease, Laquita's Disease, Diabetes Insipidus, Hyperparathyroidism, Hyperthyroidism, Hypothyroidism, Osteopenia, SIADH, Other - Past Surgical History Past Surgical History: Yes: AV Fistula/Graft, Stent (Cardiac stenting, shoulder surgery, tunnel catheter placement) - Alcohol/Substance Use Hx Alcohol Use: No History of Substance Use: reports: None - Smoking History Smoking history: Never smoked Have you smoked in the past 12 months: No - Social History Usual Living Arrangement: With Spouse ADL: Family Assistance History of Recent Travel: No Home Medications - Allergies Allergies/Adverse Reactions: Allergies Allergy/AdvReac Type Severity Reaction Status Date / Time No Known Allergies Allergy Verified 02/02/19 09:29 - Home Medications Home Medications: Ambulatory Orders Aspirin Coated [Ecotrin -] 81 mg PO DAILY tablet.ec 02/27/18 Escitalopram Oxalate [Lexapro -] 5 mg PO HS tablet 02/27/18 Insulin Sliding Scale [Novolog Vial Sliding Scale -] 1 vial SQ TIDAC units Rosuvastatin [Crestor -] 10 mg PO HS tablet 02/27/18 Tamsulosin HCl [Flomax -] 0.4 mg PO HS cap.er.24h 02/27/18 Metoprolol Tartrate [Lopressor -] 12.5 mg PO BID tablet 02/28/18 Calcium Acetate [Phoslo -] 667 mg PO TIDCM 04/30/18 Warfarin Na [Coumadin -] 4 mg PO ASDIR 07/23/18 Warfarin Sodium [Coumadin] 2 mg PO ASDIR 07/23/18 Clopidogrel Bisulfate [Plavix] 75 mg PO DAILY 08/24/18 Insulin Glargine,Hum.rec.anlog [Lantus] 25 unit SQ HS 08/24/18 Midodrine HCl [Proamatine -] 5 mg PO ASDIR 08/24/18 Family Disease History - Family Disease History Other Family History: Healthy brother and sister, no family history of colorectal cancer or other GI malignancy Vital Signs: Vital Signs Temperature 98 F 02/03/19 20:00 Pulse Rate 93 H 02/03/19 20:00 Respiratory Rate 22 H 02/03/19 20:18 Blood Pressure 126/62 02/03/19 20:00 O2 Sat by Pulse Oximetry (%) 98 02/03/19 20:18 - Other Data Labs, Other Data: CBC, BMP 02/03/19 05:05 02/03/19 05:05 INR, PTT INR 2.25 (0.83-1.09) H 02/03/19 05:05 Problem List - Problems (1) NSTEMI (non-ST elevated myocardial infarction) Code(s): I21.4 - NON-ST ELEVATION (NSTEMI) MYOCARDIAL INFARCTION (2) Rectal hemorrhage Assessment/Plan: INR on admission 2.4 Presently, ASA, clopidogrel, and warfarin have been held. F/u serial Hb (pt is frail, and with multiple comorbidities, is at elevated risk for peroperative cardiac events should procedures be required). Will study record of recent ECHOs; if ventricular thrombus has resolved (and no hx AF), will stop warfarin. Will also check on prior coronary angiograms. It is likely that clopidogrel will be discontinued if the last drug-eluting stent was placed more than a year ago. Code(s): K62.5 - HEMORRHAGE OF ANUS AND RECTUM (3) AV fistula occlusion Code(s): T82.898A - OTH COMPLICATION OF VASCULAR PROSTH DEV/GRFT, INIT Qualifiers: Encounter type: sequela Qualified Code(s): T82.898S - Other specified complication of vascular prosthetic devices, implants and grafts, sequela (4) Acute on chronic systolic and diastolic heart failure, NYHA class 1 Assessment/Plan: Per Dr. Davila, pt has had hypotensive episodes when placed on multiple medications for CHF and HTN. Would continue beta blockers (episodes of sinus tachycardia, HTN elin-dialysis; borderline reduced LVEF with regional wall motion abnormalities); F/u BUN/Cr, electrolytes, Is and Os, daily weight, BP and HR. Code(s): I50.43 - ACUTE ON CHRONIC COMBINED SYSTOLIC AND DIASTOLIC HRT FAIL (5) Anemia Code(s): D64.9 - ANEMIA, UNSPECIFIED Qualifiers: Chronic kidney disease stage: on chronic dialysis Qualified Code(s): N18.6 - End stage renal disease; D63.1 - Anemia in chronic kidney disease; Z99.2 - Dependence on renal dialysis (6) Anxiety and depression Code(s): F41.8 - OTHER SPECIFIED ANXIETY DISORDERS (7) BPH (benign prostatic hypertrophy) Code(s): N40.0 - BENIGN PROSTATIC HYPERPLASIA WITHOUT LOWER URINRY TRACT SYMP Qualifiers: Lower urinary tract symptom presence: symptoms present (8) Hx of heart artery stent Code(s): Z95.5 - PRESENCE OF CORONARY ANGIOPLASTY IMPLANT AND GRAFT (9) Ventricular mural thrombus Assessment/Plan: Please see under "Rectal Hemorrhage"). Code(s): I51.3 - INTRACARDIAC THROMBOSIS, NOT ELSEWHERE CLASSIFIED Assessment/Plan CCU time spent: 80 minutes.
--- NOTE | 2019-02-03 21:18 | PN ---
Progress Note, Physician Chief Complaint: Pt A&O; c/o abdominal discomfort overnight. No new rectal bleed observed by pt or staff. History of Present Illness: Mr. Davila is a 78 yr old man (b. [place]) with history of ESRD on HD (TTS), s/p NSTEMI several years ago, s/p coronary stents (the last > 1 year ago), Hypertension, diastolic CHF (LVEF 50-55 %, with LV regional wall motion abnormalities, on 2018 ECHO), Hx of RV thrombus-->warfarin (though two transthoracic ECHOs in the past year, the latest last week at [facility], noted apparent resolution of ventricular thrombus), who presented from home with a large amount bright red blood from rectum (observed by pt's , Dr. Mp Davila). He was admitted to [facility] for clotted AVG last week during which time there were unable to declot the graft, and had to place a tunneled catheter. Coumadin was held during his time there for procedure; he became subtheraputic and was placed on higher dose of coumadin on discharge. He denies any sob, cp, abd pain, fever, chills, N/V/D. Pt is on ASA/Plavix/ Coumadin. - Current Medication List Current Medications: Active Medications Calcium Acetate (Phoslo -) 667 mg PO TIDCM [facility] Last Admin: 02/03/19 17:00 Dose: Not Given Chlorhexidine Gluconate (Hibiclens For Decolonization -) 1 applic TP [facility] Last Admin: 02/02/19 21:50 Dose: 1 applic Escitalopram Oxalate (Lexapro -) 5 mg PO [facility] Last Admin: 02/02/19 21:50 Dose: 5 mg Pantoprazole Sodium 80 mg/ (Sodium Chloride) 100 mls @ 10 mls/hr IVPB Q10H [facility] Last Admin: 02/03/19 18:11 Dose: 10 mls/hr Insulin Aspart (Novolog Vial Sliding Scale -) 1 vial SQ [facility]; Protocol Last Admin: 02/03/19 17:01 Dose: Not Given Insulin Detemir (Levemir Vial) 25 units SQ [facility] Last Admin: 02/02/19 21:44 Dose: Not Given Metoprolol Succinate (Toprol Xl -) 12.5 mg PO BID [facility] Last Admin: 02/03/19 09:36 Dose: 12.5 mg Metoprolol Tartrate (Lopressor Injection -) 5 mg IVPUSH Q4H-IV [facility] Last Admin: 02/03/19 18:12 Dose: Not Given Midodrine (Proamatine -) 5 mg PO MoWeFr@1000 [facility] Last Admin: 02/03/19 09:36 Dose: 5 mg Mupirocin (Bactroban Ointment (For Decolonization) -) 1 applic NS BID [facility] Stop: 02/07/19 21:59 Last Admin: 02/03/19 09:32 Dose: 1 applic Rosuvastatin Calcium (Crestor -) 10 mg PO [facility] Last Admin: 02/02/19 21:50 Dose: 10 mg Tamsulosin HCl (Flomax -) 0.4 mg PO [facility] - Objective Vital Signs: Vital Signs Temperature 98 F 02/03/19 20:00 Pulse Rate 93 H 02/03/19 20:00 Respiratory Rate 22 H 02/03/19 20:18 Blood Pressure 126/62 02/03/19 20:00 O2 Sat by Pulse Oximetry (%) 98 02/03/19 20:18 Constitutional: Yes: Calm Eyes: Yes: WNL HENT: Yes: WNL Neck: Yes: WNL Cardiovascular: Yes: S1, S2 Respiratory: Yes: Regular Gastrointestinal: Yes: Soft, Tenderness (mild) ...Rectal Exam: Yes: Deferred Genitourinary: No: Anuria Musculoskeletal: Yes: Muscle Weakness Extremities: Yes: Cool Edema: No Peripheral Pulses WNL: No Peripheral Pulses: Left Doralis Pedis: 1+, Right Dorsalis Pedis: 1+ Integumentary: Yes: Venous Stasis Changes Neurological: Yes: Alert, Oriented, Weakness Psychiatric: Yes: Alert, Oriented, Other (anxiety/depression) Labs: CBC, BMP 02/03/19 05:05 02/03/19 05:05 INR, PTT INR 2.25 (0.83-1.09) H 02/03/19 05:05 - ....Imaging Chest X-ray: Image Reviewed EKG: Image Reviewed Other: Image Reviewed (Telemetry:NSR) Problem List - Problems (1) NSTEMI (non-ST elevated myocardial infarction) Code(s): I21.4 - NON-ST ELEVATION (NSTEMI) MYOCARDIAL INFARCTION (2) Rectal hemorrhage Assessment/Plan: INR on admission 2.4 Presently, ASA, clopidogrel, and warfarin have been held. F/u serial Hb (pt is frail, and with multiple comorbidities, is at elevated risk for peroperative cardiac events should procedures be required). Will study record of recent ECHOs; if ventricular thrombus has resolved (and no hx AF), will stop warfarin. Will also check on prior coronary angiograms. It is likely that clopidogrel will be discontinued if the last drug-eluting stent was placed more than a year ago. Code(s): K62.5 - HEMORRHAGE OF ANUS AND RECTUM (3) AV fistula occlusion Code(s): T82.898A - OTH COMPLICATION OF VASCULAR PROSTH DEV/GRFT, INIT Qualifiers: Encounter type: sequela Qualified Code(s): T82.898S - Other specified complication of vascular prosthetic devices, implants and grafts, sequela (4) Acute on chronic systolic and diastolic heart failure, NYHA class 1 Assessment/Plan: Per Dr. Davila, pt has had hypotensive episodes when placed on multiple medications for CHF and HTN. Would continue beta blockers (episodes of sinus tachycardia, HTN elin-dialysis; borderline reduced LVEF with regional wall motion abnormalities); F/u BUN/Cr, electrolytes, Is and Os, daily weight, BP and HR. Code(s): I50.43 - ACUTE ON CHRONIC COMBINED SYSTOLIC AND DIASTOLIC HRT FAIL (5) Anemia Code(s): D64.9 - ANEMIA, UNSPECIFIED Qualifiers: Chronic kidney disease stage: on chronic dialysis Qualified Code(s): N18.6 - End stage renal disease; D63.1 - Anemia in chronic kidney disease; Z99.2 - Dependence on renal dialysis (6) Anxiety and depression Code(s): F41.8 - OTHER SPECIFIED ANXIETY DISORDERS (7) BPH (benign prostatic hypertrophy) Assessment/Plan: Prostate specific Ag elevated in 2018; f/u clinically. Code(s): N40.0 - BENIGN PROSTATIC HYPERPLASIA WITHOUT LOWER URINRY TRACT SYMP Qualifiers: Lower urinary tract symptom presence: symptoms present (8) Hx of heart artery stent Code(s): Z95.5 - PRESENCE OF CORONARY ANGIOPLASTY IMPLANT AND GRAFT (9) Ventricular mural thrombus Assessment/Plan: Please see under "Rectal Hemorrhage"). Code(s): I51.3 - INTRACARDIAC THROMBOSIS, NOT ELSEWHERE CLASSIFIED Assessment/Plan CCU time spent: 35 minutes.
[2019-02-03] MEDS: ROSUVASTATIN CA 10 MG TABLET (FP) PO SCH (21:26)
[2019-02-03] MEDS: ESCITALOPRAM OXALATE 10 MG TABLET (FP) PO SCH (21:26)
[2019-02-03] MEDS: TAMSULOSIN HCL 0.4 MG CAP PO SCH (21:27)
[2019-02-03] MEDS: CHLORHEXIDINE GLUCONATE 4% CLEANSER FOR DECOLONIZATION TP SCH (21:28)
[2019-02-03] MEDS: INSULIN (LEVEMIR) 100 UNITS/ML UNITS SQ SCH (21:28)
[2019-02-03] MEDS ORDERED: TAMSULOSIN HCL 0.4 MG CAP PO SCH (22:00)
[2019-02-03] MEDS ORDERED: Insulin (LOG) Aspart 100 UNITS/ML VIAL SQ ONE (23:36)
[2019-02-04] MEDS: METOPROLOL TARTRATE 5 MG/5 ML VIAL IVPUSH SCH ×6 (03:03→21:31)
[2019-02-04] MEDS: PANTOPRAZOLE SODIUM 80 MG in SODIUM CHLORIDE 100 ML IVPB SCH ×3 (03:28→19:07)
[2019-02-04] MEDS ORDERED: INSULIN REGULAR HUMAN 100 UNITS/ML *VIAL SQ ONE (04:42)
[2019-02-04] MEDS ORDERED: INSULIN (NOVOLOG) ASPART 100 UNITS/ML 10ML VIAL SQ ONE (06:00)
[2019-02-04 06:14] LABS: HEMATOCRIT 24.9 % (35.4-49); HEMOGLOBIN 8.1 GM/dL (11.7-16.9); MCH 27.2 pg (25.7-33.7); MCHC 32.4 g/dl (32.0-35.9); MEAN CELL VOLUME 83.8 fl (80-96); MEAN PLT VOLUME 10.7 fl (7.5-11.1); PLATELET COUNT 134 K/MM3 (134-434); RBC 2.97 M/mm3 (4.00-5.60); RDW 16.1 % (11.9-15.9); WHITE BLOOD COUNT 9.8 K/mm3 (4.0-10.0)
[2019-02-04 06:27] LABS: INR 2.73 (0.83-1.09); PROTHROMBIN TIME (PATIENT) 32.6 SEC (9.7-13.0)
[2019-02-04 06:29] LABS: ACTIVATED PTT 42.4 SECONDS (25.2-36.5)
[2019-02-04] MEDS: INSULIN SLIDING SCALE (NOVOLOG) 1 VIAL SQ SCH ×4 (06:33→21:32)
[2019-02-04 07:23] LABS: ALBUMIN 2.7 g/dl (3.4-5.0); BILIRUBIN,TOTAL 0.4 mg/dL (0.2-1); BLOOD UREA NITROGEN 63.9 mg/dL (7-18); CALCIUM 8.3 mg/dL (8.5-10.1); CREATININE 2.8 mg/dL (0.55-1.3); MAGNESIUM 2.2 mg/dL (1.8-2.4); PHOSPHOROUS 3.8 mg/dL (2.5-4.9); POTASSIUM 4.4 mmol/L (3.5-5.1); TOT PROT 5.6 g/dl (6.4-8.2)
[2019-02-04] MEDS ORDERED: SODIUM CHLORIDE 250 ML IV PRN (07:40)
--- NOTE | 2019-02-04 08:51 | PN ---
Physical Exam: SUBJECTIVE: Patient seen and examined at the bedside. Patient states he's feeling better and doesn't have any pain. HgB has decreased to 8.1 from 9.1 however no bleed/ bloody BM reported since yesterday. Will continue to follow CBCs and transfuse as necessary. Patient's blood sugars have been high (400s) but holding levemir because patient getting dialysis today but he was given some novolog. OBJECTIVE: Vital Signs Period Temp Pulse Resp BP Sys/Simons Pulse Ox Last 24 Hr 97.8 F-98.2 F 75-106 14-22 105-153/53-82 98-98 GENERAL: The patient is awake, alert, and oriented to person, place, in no acute distress. HEAD: Normocephalic, atraumatic. EYES: PERRL, extraocular movements intact, sclera anicteric. No conjunctiva pallor. ENT: Oropharynx clear without exudates, moist mucous membranes. NECK: Supple, without lymphadenopathy LUNGS: Breath sounds equal, clear to auscultation bilaterally, no wheezes, no crackles, no accessory muscle use. HEART: Regular rate and rhythm, S1, S2 without murmur, rub or gallop. ABDOMEN: Soft, nondistended. Mild tenderness to deep palpation bilateral lower quadrants. Hypooactive bowel sounds. No guarding, no rebound tenderness. EXTREMITIES: 2+ radial, dorsalis pedis pulses bilaterally, warm, well-perfused, no edema. Left upper extremity fistula with palpable thrill. Small 1cm by 1cm diabetic foot ulcer on L second toe. NEUROLOGICAL: Cranial nerves II through XII grossly intact. Normal speech. PSYCH: Normal mood, normal affect. SKIN: Warm, dry. Laboratory Results - last 24 hr 02/02/19 02/03/19 02/03/19 14:00 11:18 16:08 WBC RBC Hgb Hct MCV MCH MCHC RDW Plt Count MPV PT with INR INR PTT (Actin FS) Sodium Potassium Chloride Carbon Dioxide Anion Gap BUN Creatinine Est GFR (CKD-EPI)AfAm Est GFR (CKD-EPI)NonAf POC Glucometer 309 362 Random Glucose Calcium Phosphorus Magnesium Total Bilirubin AST ALT Alkaline Phosphatase Total Protein Albumin Hep C Ab Diagnostic <0.1 02/03/19 02/03/19 02/04/19 21:16 23:34 04:34 WBC RBC Hgb Hct MCV MCH MCHC RDW Plt Count MPV PT with INR INR PTT (Actin FS) Sodium Potassium Chloride Carbon Dioxide Anion Gap BUN Creatinine Est GFR (CKD-EPI)AfAm Est GFR (CKD-EPI)NonAf POC Glucometer 520 461 447 Random Glucose Calcium Phosphorus Magnesium Total Bilirubin AST ALT Alkaline Phosphatase Total Protein Albumin Hep C Ab Diagnostic 02/04/19 02/04/19 02/04/19 05:50 05:50 05:50 WBC 9.8 RBC 2.97 L Hgb 8.1 L Hct 24.9 L MCV 83.8 MCH 27.2 MCHC 32.4 RDW 16.1 H Plt Count 134 MPV 10.7 PT with INR 32.60 H INR 2.73 H PTT (Actin FS) 42.4 H Sodium 143 Potassium 4.4 Chloride 107 Carbon Dioxide 27 Anion Gap 10 BUN 63.9 H Creatinine 2.8 H Est GFR (CKD-EPI)AfAm 23.79 Est GFR (CKD-EPI)NonAf 20.52 POC Glucometer Random Glucose 436 H* Calcium 8.3 L Phosphorus 3.8 Magnesium 2.2 Total Bilirubin 0.4 AST 12 L ALT 22 Alkaline Phosphatase 74 Total Protein 5.6 L Albumin 2.7 L Hep C Ab Diagnostic 02/04/19 06:28 WBC RBC Hgb Hct MCV MCH MCHC RDW Plt Count MPV PT with INR INR PTT (Actin FS) Sodium Potassium Chloride Carbon Dioxide Anion Gap BUN Creatinine Est GFR (CKD-EPI)AfAm Est GFR (CKD-EPI)NonAf POC Glucometer 391 Random Glucose Calcium Phosphorus Magnesium Total Bilirubin AST ALT Alkaline Phosphatase Total Protein Albumin Hep C Ab Diagnostic Active Medications Generic Name Dose Route Start Last Admin Trade Name Mp PRN Reason Stop Dose Admin Calcium Acetate 667 mg 02/02/19 17:30 02/03/19 17:00 Phoslo - PO Not Given TIDCM [facility] Chlorhexidine Gluconate 1 applic 02/02/19 22:00 02/03/19 21:28 Hibiclens For Decolonization - TP 1 applic HS [facility] Administration Epoetin Fhaad 20,000 unit 02/04/19 07:40 Procrit - IVPUSH 02/04/19 07:41 ONCE ONE Escitalopram Oxalate 5 mg 02/02/19 22:00 02/03/19 21:26 Lexapro - PO 5 mg HS [facility] Administration Pantoprazole Sodium 80 mg/ 100 mls @ 10 mls/hr 02/02/19 16:00 02/04/19 03:28 Sodium Chloride IVPB Not Given Q10H [facility] 8 MG/HR Sodium Chloride 250 mls @ 3,000 mls/hr 02/04/19 07:40 Normal Saline - IV 02/05/19 07:40 PRN PRN Hypotension during Dialysis Iron Sucrose 100 mg/ Sodium 100 mls @ 200 mls/hr 02/04/19 07:40 Chloride IVPB 02/04/19 08:09 ONCE ONE Insulin Aspart 1 vial 02/03/19 07:59 02/04/19 06:33 Novolog Vial Sliding Scale - SQ 5 units ACHS [facility] Administration Protocol Insulin Detemir 25 units 02/02/19 22:00 02/03/19 21:28 Levemir Vial SQ Not Given HS [facility] Metoprolol Succinate 12.5 mg 02/03/19 10:00 02/03/19 21:37 Toprol Xl - PO Not Given BID [facility] Metoprolol Tartrate 5 mg 02/03/19 10:00 02/04/19 06:12 Lopressor Injection - IVPUSH Not Given Q4H-IV [facility] Midodrine 5 mg 02/03/19 10:00 02/03/19 09:36 Proamatine - PO 5 mg MoWeFr@1000 [facility] Administration Mupirocin 1 applic 02/02/19 22:00 02/03/19 21:28 Bactroban Ointment (For Decolonization) - NS 02/07/19 21:59 1 applic BID [facility] Administration Rosuvastatin Calcium 10 mg 02/02/19 22:00 02/03/19 21:26 Crestor - PO 10 mg HS [facility] Administration Tamsulosin HCl 0.4 mg 02/03/19 22:00 02/03/19 21:27 Flomax - PO 0.4 mg HS [facility] Administration ASSESSMENT/PLAN: Patient is a 78 year old male with history of 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 NSTEMI Coronary artery disease s/p 5 stents Hyperlipidemia Right ventricular mural thrombus Diabetes mellitus ESRD on HD (Mon, Wed, Fri) Neurological -Patient is awake, alert in no acute distress -Monitor for signs of mental status changes Cardiovascular Was taking multiple anticoagulants for mural heart thrombus however no longer visible on most recent echos. Once bleed stabilizes will need to resume ASA or plavix. -Currently holding Aspirin, Plavix, and chemical anticoagulation -Holding Coumadin. INR 2.25 -Metoprolol 12.5mg PO BID -Rosuvastatin 10mg PO HS -Cardiology recommendations (Dr. Moreno) appreciated. Pulmonary -Patient saturating well on room air. -Maintain oxygen saturation greater than 90% Gastrointestinal Likely lower gastrointestinal bleeding> ideally would get endoscopy however the patient is currently too frail and this risk is too high with an INR >1.5, will continue with supportive measures and transfusions if necessary. -Hb/ Hct decreased to 8.1/24.9 from 9.1/ 27.9 yesterday. No report of new bleed , will continue to follow. -Protonix drip -Gastroenterology recommendations (Dr. Fraga) appreciated -NPO Endocrine -Insulin sliding scale ACHS -Fingerstick blood glucose monitoring -Levemir 25units QHS Nephrologic -Last HD 02/02 patient tolerated well -Midodrine 5mg PO (Mon, Wed, Fri) - Give AMY and venofer with dialysis per nephrology's recommendations -Nephrology recommendations (Dr. Del Cid) appreciated FEN -Fluids: IV normal saline at 50mL/ hour while NPO -Electrolytes: Within normal limits. Follow CMP, replete as necessary -Nutrition: clears Prophylaxis -Holding chemical anticoagulation in setting of gastrointestinal bleeding Disposition: -Stable for transfer to in a private room. Visit type - Emergency Visit Emergency Visit: Yes ED Registration Date: 02/02/19 Care time: The patient presented to the Emergency Department on the above date and was hospitalized for further evaluation of their emergent condition. - New Patient This patient is new to me today: Yes Date on this admission: 02/04/19 - Critical Care Critical Care patient: Yes Total Critical Care Time (in minutes): 40 Critical Care Statement: The care of this patient involved high complexity decision making to prevent further life threatening deterioration of the patient 's condition and/or to evaluate & treat vital organ system(s) failure or risk of failure. ATTENDING PHYSICIAN STATEMENT I saw and evaluated the patient. I reviewed the resident's note and discussed the case with the resident. I agree with the resident's findings and plan as documented. SUBJECTIVE: OBJECTIVE: ASSESSMENT AND PLAN:
[2019-02-04] MEDS ORDERED: EPOETIN ALFA 20,000 UNIT/1 ML VIAL IVPUSH ONE (09:00)
[2019-02-04] MEDS ORDERED: IRON SUCROSE INJECTION 100 MG in SODIUM CHLORIDE 95 ML IVPB ONE (09:00)
[2019-02-04] MEDS ORDERED: MIDODRINE HCL 5 MG TABLET PO SCH (11:53)
[2019-02-04] MEDS ORDERED: PT OWN MED DRAWER 7, Y5N ONE (12:00)
--- NOTE | 2019-02-04 12:00 | PN ---
Progress Note (short form) - Note Progress Note: Renal follow up for ESRD on HD with GI bleed Pt seen and examined in the ICU awake and alert currently getting dialysis access with good flow but BP is low 80's stolic will stop UF and give 250cc NS back Midodrine was not given prior to dialysis pt is awake and alert, offers no acute complaints Vital Signs Temperature 98.5 F 02/04/19 09:30 Pulse Rate 91 H 02/04/19 09:35 Respiratory Rate 17 02/04/19 09:35 Blood Pressure 128/62 02/04/19 09:35 O2 Sat by Pulse Oximetry (%) 98 02/04/19 08:43 Intake & Output 02/01/19 02/02/19 02/03/19 02/04/19 23:59 23:59 23:59 23:59 Intake Total 390 Output Total 300 Balance 90 Weight 62.596 kg 63.758 kg NAD on NC O2 RRR Dec BS no LE edema CBC, BMP 02/04/19 05:50 02/04/19 05:50 Current Medications Calcium Acetate (Phoslo -) 667 mg PO TIDCM [facility] Last Admin: 02/03/19 17:00 Dose: Not Given Chlorhexidine Gluconate (Hibiclens For Decolonization -) 1 applic TP [facility] Last Admin: 02/03/19 21:28 Dose: 1 applic Escitalopram Oxalate (Lexapro -) 5 mg PO [facility] Last Admin: 02/03/19 21:26 Dose: 5 mg Pantoprazole Sodium 80 mg/ (Sodium Chloride) 100 mls @ 10 mls/hr IVPB Q10H [facility] Last Admin: 02/04/19 03:28 Dose: Not Given Sodium Chloride (Normal Saline -) 250 mls @ 3,000 mls/hr IV PRN PRN PRN Reason: Hypotension during Dialysis Stop: 02/05/19 07:40 Insulin Aspart (Novolog Vial Sliding Scale -) 1 vial SQ [facility]; Protocol Last Admin: 02/04/19 06:33 Dose: 5 units Insulin Detemir (Levemir Vial) 25 units SQ [facility] Last Admin: 02/03/19 21:28 Dose: Not Given Metoprolol Succinate (Toprol Xl -) 12.5 mg PO BID [facility] Last Admin: 02/03/19 21:37 Dose: Not Given Metoprolol Tartrate (Lopressor Injection -) 5 mg IVPUSH Q4H-IV [facility] Last Admin: 02/04/19 06:12 Dose: Not Given Midodrine (Proamatine -) 5 mg PO TUTA [facility] Mupirocin (Bactroban Ointment (For Decolonization) -) 1 applic NS BID [facility] Stop: 02/07/19 21:59 Last Admin: 02/03/19 21:28 Dose: 1 applic Rosuvastatin Calcium (Crestor -) 10 mg PO HS [facility] Last Admin: 02/03/19 21:26 Dose: 10 mg Tamsulosin HCl (Flomax -) 0.4 mg PO [facility] Last Admin: 02/03/19 21:27 Dose: 0.4 mg 78 year old [place] gentleman with history of ESRD on HD (TTS), Hypertension , CHF, CAD, Hx of RV thrombus on A/C who presented from home with bright red blood from rectum. #Lower GI bleed in setting of Coumadin/ASA/Plavix #Acute on chronic anemia #ESRD on HD #Hx of RV thrombus on warfarin #Hx of CAD on ASA/Plavix #Hx of CHF will decrease UF with Hd given low Mididrine ordered to be given now Hgb continue to trend down, will give Venofer/AMY today with dialysis GI follow up off Warfarin Cardiology follow up will maintain on TTS dialysis schedule Florencio Del Cid DO
[2019-02-04] MEDS: CALCIUM ACETATE 667 MG CAPSULE (FP) PO SCH ×3 (12:04→17:59)
--- NOTE | 2019-02-04 12:11 | PN ---
Teaching Attending Note Name of Resident: Sofy Blancas ATTENDING PHYSICIAN STATEMENT I saw and evaluated the patient. I reviewed the resident's note and discussed the case with the resident. I agree with the resident's findings and plan as documented. SUBJECTIVE: Pt seen and examined in the ICU. No further bleeding noted. Currently on HD. Denies shortness of breath or chest pain. OBJECTIVE: Vital Signs Period Temp Pulse Resp BP Sys/Simons Pulse Ox Last 24 Hr 97.8 F-98.5 F 75-98 16-22 105-153/53-77 98-98 Intake & Output 02/01/19 02/02/19 02/03/19 02/04/19 23:59 23:59 23:59 23:59 Intake Total 390 Output Total 300 Balance 90 Weight 62.596 kg 63.758 kg Gen: NAD at rest Heart: RRR Lung: decreased breath sounds at the bases Abd: soft, nontender Ext: no edema CBC, BMP 02/04/19 05:50 02/04/19 05:50 Active Medications Calcium Acetate (Phoslo -) 667 mg PO TIDCM [facility] Last Admin: 02/04/19 12:08 Dose: Not Given Chlorhexidine Gluconate (Hibiclens For Decolonization -) 1 applic TP HS [facility] Last Admin: 02/03/19 21:28 Dose: 1 applic Escitalopram Oxalate (Lexapro -) 5 mg PO HS [facility] Last Admin: 02/03/19 21:26 Dose: 5 mg Pantoprazole Sodium 80 mg/ (Sodium Chloride) 100 mls @ 10 mls/hr IVPB Q10H [facility] Last Admin: 02/04/19 12:07 Dose: 10 mls/hr Sodium Chloride (Normal Saline -) 250 mls @ 3,000 mls/hr IV PRN PRN PRN Reason: Hypotension during Dialysis Stop: 02/05/19 07:40 Insulin Aspart (Novolog Vial Sliding Scale -) 1 vial SQ [facility]; Protocol Last Admin: 02/04/19 06:33 Dose: 5 units Insulin Detemir (Levemir Vial) 25 units SQ [facility] Last Admin: 02/03/19 21:28 Dose: Not Given Metoprolol Succinate (Toprol Xl -) 12.5 mg PO BID [facility] Last Admin: 02/03/19 21:37 Dose: Not Given Metoprolol Tartrate (Lopressor Injection -) 5 mg IVPUSH Q4H-IV [facility] Last Admin: 02/04/19 06:12 Dose: Not Given Midodrine (Proamatine -) 5 mg PO TUTHSA [facility] Last Admin: 02/04/19 12:02 Dose: 5 mg Mupirocin (Bactroban Ointment (For Decolonization) -) 1 applic NS BID [facility] Stop: 02/07/19 21:59 Last Admin: 02/03/19 21:28 Dose: 1 applic Rosuvastatin Calcium (Crestor -) 10 mg PO [facility] Last Admin: 02/03/19 21:26 Dose: 10 mg Tamsulosin HCl (Flomax -) 0.4 mg PO [facility] Last Admin: 02/03/19 21:27 Dose: 0.4 mg ASSESSMENT AND PLAN: GI Bleed likely Lower Anemia CAD LV Diastolic Dysfunction ESRD on HD Chronic LV Thrombus DM - monitor H/H - transfuse as needed - protonix - holding anticoagulation - PO per GI - ensure large bore peripheral access - GI f/u - HD per renal - can monitor on telemetry
[2019-02-04] MEDS: MUPIROCIN 2% TOPICAL OINTMENT FOR DECOLONIZATION NS SCH ×2 (13:32→21:30)
[2019-02-04] MEDS: metoPROLOL SUCCINATE 25 MG TAB.SR.24H (FP) PO SCH ×2 (13:33→21:31)
--- NOTE | 2019-02-04 16:19 | PN ---
Progress Note (short form) - Note Progress Note: Current Medications Calcium Acetate (Phoslo -) 667 mg PO TIDCM [facility] Last Admin: 02/04/19 12:08 Dose: Not Given Chlorhexidine Gluconate (Hibiclens For Decolonization -) 1 applic TP HS [facility] Last Admin: 02/03/19 21:28 Dose: 1 applic Escitalopram Oxalate (Lexapro -) 5 mg PO [facility] Last Admin: 02/03/19 21:26 Dose: 5 mg Pantoprazole Sodium 80 mg/ (Sodium Chloride) 100 mls @ 10 mls/hr IVPB Q10H [facility] Last Admin: 02/04/19 12:07 Dose: 10 mls/hr Sodium Chloride (Normal Saline -) 250 mls @ 3,000 mls/hr IV PRN PRN PRN Reason: Hypotension during Dialysis Stop: 02/05/19 07:40 Insulin Aspart (Novolog Vial Sliding Scale -) 1 vial SQ [facility]; Protocol Last Admin: 02/04/19 13:25 Dose: Not Given Insulin Detemir (Levemir Vial) 25 units SQ [facility] Last Admin: 02/03/19 21:28 Dose: Not Given Metoprolol Succinate (Toprol Xl -) 12.5 mg PO BID [facility] Last Admin: 02/04/19 13:33 Dose: Not Given Metoprolol Tartrate (Lopressor Injection -) 5 mg IVPUSH Q4H-IV [facility] Last Admin: 02/04/19 13:32 Dose: Not Given Midodrine (Proamatine -) 5 mg PO TUTHSA [facility] Last Admin: 02/04/19 12:02 Dose: 5 mg Mupirocin (Bactroban Ointment (For Decolonization) -) 1 applic NS BID [facility] Stop: 02/07/19 21:59 Last Admin: 02/04/19 13:32 Dose: 1 applic Rosuvastatin Calcium (Crestor -) 10 mg PO [facility] Last Admin: 02/03/19 21:26 Dose: 10 mg Tamsulosin HCl (Flomax -) 0.4 mg PO [facility] Last Admin: 02/03/19 21:27 Dose: 0.4 mg Current Medications Laboratory Results - last 24 hr 02/02/19 02/02/19 02/03/19 14:00 14:00 21:16 WBC RBC Hgb Hct MCV MCH MCHC RDW Plt Count MPV PT with INR INR PTT (Actin FS) Sodium Potassium Chloride Carbon Dioxide Anion Gap BUN Creatinine Est GFR (CKD-EPI)AfAm Est GFR (CKD-EPI)NonAf POC Glucometer 520 Random Glucose Calcium Phosphorus Magnesium Total Bilirubin AST ALT Alkaline Phosphatase Total Protein Albumin Hep Bs Antigen Negative Hep C Ab Diagnostic <0.1 02/03/19 02/04/19 02/04/19 23:34 04:34 05:50 WBC 9.8 RBC 2.97 L Hgb 8.1 L Hct 24.9 L MCV 83.8 MCH 27.2 MCHC 32.4 RDW 16.1 H Plt Count 134 MPV 10.7 PT with INR INR PTT (Actin FS) Sodium Potassium Chloride Carbon Dioxide Anion Gap BUN Creatinine Est GFR (CKD-EPI)AfAm Est GFR (CKD-EPI)NonAf POC Glucometer 461 447 Random Glucose Calcium Phosphorus Magnesium Total Bilirubin AST ALT Alkaline Phosphatase Total Protein Albumin Hep Bs Antigen Hep C Ab Diagnostic 02/04/19 02/04/19 02/04/19 05:50 05:50 06:28 WBC RBC Hgb Hct MCV MCH MCHC RDW Plt Count MPV PT with INR 32.60 H INR 2.73 H PTT (Actin FS) 42.4 H Sodium 143 Potassium 4.4 Chloride 107 Carbon Dioxide 27 Anion Gap 10 BUN 63.9 H Creatinine 2.8 H Est GFR (CKD-EPI)AfAm 23.79 Est GFR (CKD-EPI)NonAf 20.52 POC Glucometer 391 Random Glucose 436 H* Calcium 8.3 L Phosphorus 3.8 Magnesium 2.2 Total Bilirubin 0.4 AST 12 L ALT 22 Alkaline Phosphatase 74 Total Protein 5.6 L Albumin 2.7 L Hep Bs Antigen Hep C Ab Diagnostic 02/04/19 13:23 WBC RBC Hgb Hct MCV MCH MCHC RDW Plt Count MPV PT with INR INR PTT (Actin FS) Sodium Potassium Chloride Carbon Dioxide Anion Gap BUN Creatinine Est GFR (CKD-EPI)AfAm Est GFR (CKD-EPI)NonAf POC Glucometer 242 Random Glucose Calcium Phosphorus Magnesium Total Bilirubin AST ALT Alkaline Phosphatase Total Protein Albumin Hep Bs Antigen Hep C Ab Diagnostic Vital Signs Temperature 98 F 02/04/19 14:00 Pulse Rate 74 02/04/19 14:00 Respiratory Rate 18 02/04/19 14:00 Blood Pressure 112/55 L 02/04/19 14:00 O2 Sat by Pulse Oximetry (%) 98 02/04/19 08:43 CC: no complaints ``````````````````````` skin--NL color eyes--anicteric lungs--grossly clear heart--RR chest--with supraclav catheter (dialysis) abd--soft, BS+ ext--Pulsation on the RUE fistula but no trill neuro--awake; alert to baseline; follows commands; affect flat; no gross deficits or rigidity `````````````````````````````````````````` Summ > rectal bleed--underlying cause unclear; endoscopy is fraught with potential complications (as had been the case in the past). INR still high. Counts dropped to 8.1 (Donna Rajput and Nehemias did not opt to transfuse). No rectal bleeding reported today; he had 1 brown BM. GI aware and he has been placed on usual diet. not in favor of aggressive measures as co-morbidities make risks for complications much higher. PLAN: hold all antiPLt drugs; follow CBC > DM--BS high; back on insulin w/ coverage > On fpc a/c--has been on Warf/asa/Plavix for mural heart thrombus, but now deemed to be absent on 2 recent echoes. Cardiology feels he should no longer require a/c PLAN: stop Warf > ASHD--with multiple stenting in the past; currently stable; will need either ASA or Plavix once GI bleeding resolved PLAN: cont BB for now > ESRD--on HD, as per Renal. ~~~~~~~~~~~~~~~~~~~~~~~~~~~~ Discussed with at bedside `````````````````````````````` Dr Jean Problem List - Problems (1) Rectal hemorrhage Code(s): K62.5 - HEMORRHAGE OF ANUS AND RECTUM (2) Diabetes Code(s): E11.9 - TYPE 2 DIABETES MELLITUS WITHOUT COMPLICATIONS Qualifiers: Diabetes mellitus type: type 2 Diabetes mellitus termite inspector insulin use: with termite inspector use Diabetes mellitus complication detail: with other ophthalmic complication (3) ESRD (end stage renal disease) on dialysis Code(s): N18.6 - END STAGE RENAL DISEASE; Z99.2 - DEPENDENCE ON RENAL DIALYSIS (4) Ventricular mural thrombus Code(s): I51.3 - INTRACARDIAC THROMBOSIS, NOT ELSEWHERE CLASSIFIED (5) Anemia Code(s): D64.9 - ANEMIA, UNSPECIFIED Qualifiers: Chronic kidney disease stage: on chronic dialysis Qualified Code(s): N18.6 - End stage renal disease; D63.1 - Anemia in chronic kidney disease; Z99.2 - Dependence on renal dialysis (6) BPH (benign prostatic hypertrophy) Code(s): N40.0 - BENIGN PROSTATIC HYPERPLASIA WITHOUT LOWER URINRY TRACT SYMP Qualifiers: Lower urinary tract symptom presence: symptoms present (7) CAD (coronary artery disease) Code(s): I25.10 - ATHSCL HEART DISEASE OF [place] CORONARY ARTERY W/O ANG PCTRS Qualifiers: Coronary Disease-Associated Artery/Lesion type: unspecified vessel or lesion type Associated angina: without angina (8) Hypotension Code(s): I95.9 - HYPOTENSION, UNSPECIFIED Qualifiers: Hypotension type: unspecified hypotension type Qualified Code(s): I95.9 - Hypotension, unspecified (9) Hyperlipidemia Code(s): E78.5 - HYPERLIPIDEMIA, UNSPECIFIED Qualifiers: Hyperlipidemia type: unspecified Qualified Code(s): E78.5 - Hyperlipidemia , unspecified (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
--- NOTE | 2019-02-04 20:07 | PN.GI ---
GI Progress Note Subjective: patient had dark brown stool this evening, he was NPO for 4 days - Objective Vital Signs: Vital Signs Temperature 98 F 02/04/19 14:00 Pulse Rate 104 H 02/04/19 18:00 Respiratory Rate 18 02/04/19 19:36 Blood Pressure 113/85 02/04/19 18:00 O2 Sat by Pulse Oximetry (%) 98 02/04/19 19:36 Constitutional: Well Nourished Eyes: Yes: Conjunctiva Clear HENT: Yes: Atraumatic Neck: Yes: Supple Cardiovascular: Yes: Regular Rate and Rhythm Respiratory: Yes: Rhonchi (--left lower lung field) ...Palpate: Yes: Soft. No: Firm/Rigid, Guarding, Hepatomegaly, Mass, Pulsatile Mass, Splenomegaly, Tenderness, Tenderness, Epigastium Labs: CBC, BMP 02/04/19 05:50 02/04/19 05:50 INR, PTT INR 2.73 (0.83-1.09) H 02/04/19 05:50 Problem List - Problems (1) GI bleed Assessment/Plan: --observe for further bleeding R> advance diet will continue to avoid reversing anticoagulation unless sever bleeding occurs tramsfuse 1 unit of PRBC if HGB ,8 Dr Mak willl follow the patient Code(s): K92.2 - GASTROINTESTINAL HEMORRHAGE, UNSPECIFIED Qualifiers: GI bleed type/associated pathology: unspecified gastrointestinal hemorrhage type Qualified Code(s): K92.2 - Gastrointestinal hemorrhage, unspecified
[2019-02-04] MEDS: TAMSULOSIN HCL 0.4 MG CAP PO SCH (21:30)
[2019-02-04] MEDS: ESCITALOPRAM OXALATE 10 MG TABLET (FP) PO SCH (21:30)
[2019-02-04] MEDS: ROSUVASTATIN CA 10 MG TABLET (FP) PO SCH (21:30)
[2019-02-04] MEDS: CHLORHEXIDINE GLUCONATE 4% CLEANSER FOR DECOLONIZATION TP SCH (21:30)
[2019-02-04] MEDS: INSULIN (LEVEMIR) 100 UNITS/ML UNITS SQ SCH (21:31)
[2019-02-04] MEDS ORDERED: Insulin (LOG) Aspart 100 UNITS/ML VIAL SQ ONE (23:36)
[2019-02-05] MEDS: METOPROLOL TARTRATE 5 MG/5 ML VIAL IVPUSH SCH ×7 (04:24→21:45)
[2019-02-05] MEDS: PANTOPRAZOLE SODIUM 80 MG in SODIUM CHLORIDE 100 ML IVPB SCH ×3 (06:18→17:10)
[2019-02-05] MEDS: INSULIN SLIDING SCALE (NOVOLOG) 1 VIAL SQ SCH ×4 (06:18→22:01)
[2019-02-05 07:01] LABS: BLOOD UREA NITROGEN 42.2 mg/dL (7-18); CALCIUM 8.2 mg/dL (8.5-10.1); CREATININE 2.3 mg/dL (0.55-1.3); MAGNESIUM 2.1 mg/dL (1.8-2.4); PHOSPHOROUS 3.5 mg/dL (2.5-4.9); POTASSIUM 3.9 mmol/L (3.5-5.1)
[2019-02-05 07:03] LABS: INR 2.91 (0.83-1.09); PROTHROMBIN TIME (PATIENT) 34.7 SEC (9.7-13.0)
[2019-02-05 07:20] LABS: HEMATOCRIT 22.9 % (35.4-49); HEMOGLOBIN 7.5 GM/dL (11.7-16.9); MCH 27.7 pg (25.7-33.7); MCHC 32.8 g/dl (32.0-35.9); MEAN CELL VOLUME 84.3 fl (80-96); MEAN PLT VOLUME 10.2 fl (7.5-11.1); PLATELET COUNT 128 K/MM3 (134-434); RBC 2.71 M/mm3 (4.00-5.60); RDW 16.3 % (11.9-15.9); WHITE BLOOD COUNT 8.9 K/mm3 (4.0-10.0)
[2019-02-05] MEDS: CALCIUM ACETATE 667 MG CAPSULE (FP) PO SCH ×3 (08:37→17:11)
[2019-02-05] MEDS: metoPROLOL SUCCINATE 25 MG TAB.SR.24H (FP) PO SCH ×2 (10:52→21:46)
[2019-02-05] MEDS: MUPIROCIN 2% TOPICAL OINTMENT FOR DECOLONIZATION NS SCH (10:53)
--- NOTE | 2019-02-05 11:45 | PN ---
Teaching Attending Note Name of Resident: Fabio Comer ATTENDING PHYSICIAN STATEMENT I saw and evaluated the patient. I reviewed the resident's note and discussed the case with the resident. I agree with the resident's findings and plan as documented. SUBJECTIVE: Pt seen and examined in the ICU. No further bleeding noted. H/H slightly down. c /o upper chest heaviness. OBJECTIVE: Vital Signs Period Temp Pulse Resp BP Sys/Simons Pulse Ox Last 24 Hr 97.8 F-98.5 F 74-109 15-29 97-131/47-85 98-98 Intake & Output 02/02/19 02/03/19 02/04/19 02/05/19 23:59 23:59 23:59 23:59 Intake Total 390 800 270 Output Total 300 1950 Balance 90 -1150 270 Weight 62.596 kg 63.758 kg 62.596 kg Gen: NAD at rest Heart: RRR Lung: decreased breath sounds at the bases Abd: soft, nontender Ext: no edema CBC, BMP 02/05/19 05:50 02/05/19 05:50 Active Medications Calcium Acetate (Phoslo -) 667 mg PO TIDCM [facility] Last Admin: 02/05/19 08:37 Dose: 667 mg Chlorhexidine Gluconate (Hibiclens For Decolonization -) 1 applic TP HS [facility] Last Admin: 02/04/19 21:30 Dose: 1 applic Escitalopram Oxalate (Lexapro -) 5 mg PO HS [facility] Last Admin: 02/04/19 21:30 Dose: 5 mg Pantoprazole Sodium 80 mg/ (Sodium Chloride) 100 mls @ 10 mls/hr IVPB Q10H [facility] Last Admin: 02/05/19 06:18 Dose: 10 mls/hr Insulin Aspart (Novolog Vial Sliding Scale -) 1 vial SQ [facility]; Protocol Last Admin: 02/05/19 06:18 Dose: Not Given Insulin Detemir (Levemir Vial) 25 units SQ [facility] Last Admin: 02/04/19 21:31 Dose: Not Given Metoprolol Succinate (Toprol Xl -) 12.5 mg PO BID [facility] Last Admin: 02/05/19 10:52 Dose: 12.5 mg Metoprolol Tartrate (Lopressor Injection -) 5 mg IVPUSH Q4H-IV [facility] Last Admin: 02/05/19 10:53 Dose: Not Given Midodrine (Proamatine -) 5 mg PO TUTHSA [facility] Last Admin: 02/04/19 12:02 Dose: 5 mg Mupirocin (Bactroban Ointment (For Decolonization) -) 1 applic NS BID [facility] Stop: 02/07/19 21:59 Last Admin: 02/05/19 10:53 Dose: 1 applic Rosuvastatin Calcium (Crestor -) 10 mg PO [facility] Last Admin: 02/04/19 21:30 Dose: 10 mg Tamsulosin HCl (Flomax -) 0.4 mg PO [facility] Last Admin: 02/04/19 21:30 Dose: 0.4 mg ASSESSMENT AND PLAN: GI Bleed likely Lower Anemia CAD LV Diastolic Dysfunction ESRD on HD Chronic LV Thrombus DM - monitor H/H - transfuse as needed - protonix - holding anticoagulation - PO per GI - ensure large bore peripheral access - GI f/u - HD per renal - can monitor on telemetry
--- NOTE | 2019-02-05 12:04 | PN ---
Progress Note (short form) - Note Progress Note: Renal follow up for ESRD on HD with GI bleed Pt seen and examined in the ICU awake and alert currently getting PRBC transfusion s/p dialysis yesterday denies any sob, chest pain, abd pain no BM overnight as per nurse restarted on diet Vital Signs Temperature 98.5 F 02/05/19 08:00 Pulse Rate 105 H 02/05/19 10:00 Respiratory Rate 21 H 02/05/19 10:00 Blood Pressure 131/72 02/05/19 10:00 O2 Sat by Pulse Oximetry (%) 98 02/05/19 09:00 Intake & Output 02/02/19 02/03/19 02/04/19 02/05/19 23:59 23:59 23:59 23:59 Intake Total 390 800 270 Output Total 300 1950 Balance 90 -1150 270 Weight 62.596 kg 63.758 kg 62.596 kg NAD on NC O2 RRR Dec BS no LE edema CBC, BMP 02/05/19 05:50 02/05/19 05:50 Current Medications Calcium Acetate (Phoslo -) 667 mg PO TIDCM [facility] Last Admin: 02/05/19 08:37 Dose: 667 mg Chlorhexidine Gluconate (Hibiclens For Decolonization -) 1 applic TP HS [facility] Last Admin: 02/04/19 21:30 Dose: 1 applic Escitalopram Oxalate (Lexapro -) 5 mg PO HS [facility] Last Admin: 02/04/19 21:30 Dose: 5 mg Pantoprazole Sodium 80 mg/ (Sodium Chloride) 100 mls @ 10 mls/hr IVPB Q10H [facility] Last Admin: 02/05/19 06:18 Dose: 10 mls/hr Insulin Aspart (Novolog Vial Sliding Scale -) [address] [facility]; Protocol Last Admin: 02/05/19 06:18 Dose: Not Given Insulin Detemir (Levemir Vial) 25 units SQ [facility] Last Admin: 02/04/19 21:31 Dose: Not Given Metoprolol Succinate (Toprol Xl -) 12.5 mg PO BID [facility] Last Admin: 02/05/19 10:52 Dose: 12.5 mg Metoprolol Tartrate (Lopressor Injection -) 5 mg IVPUSH Q4H-IV [facility] Last Admin: 02/05/19 10:53 Dose: Not Given Midodrine (Proamatine -) 5 mg PO TUTHSA [facility] Last Admin: 02/04/19 12:02 Dose: 5 mg Mupirocin (Bactroban Ointment (For Decolonization) -) 1 applic NS BID [facility] Stop: 02/07/19 21:59 Last Admin: 02/05/19 10:53 Dose: 1 applic Rosuvastatin Calcium (Crestor -) 10 mg PO [facility] Last Admin: 02/04/19 21:30 Dose: 10 mg Tamsulosin HCl (Flomax -) 0.4 mg PO [facility] Last Admin: 02/04/19 21:30 Dose: 0.4 mg 78 year old [place] gentleman with history of ESRD on HD (TTS), Hypertension , CHF, CAD, Hx of RV thrombus on A/C who presented from home with bright red blood from rectum. 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
--- NOTE | 2019-02-05 13:50 | EKG ---
Test Reason : Blood Pressure : / mmHG Vent. Rate : 099 BPM Atrial Rate : 099 BPM P-R Int : 186 ms QRS Dur : 104 ms QT Int : 378 ms P-R-T Axes : 048 -68 116 degrees QTc Int : 485 ms NORMAL SINUS RHYTHM LEFT AXIS DEVIATION LEFT VENTRICULAR HYPERTROPHY WITH REPOLARIZATION ABNORMALITY INFERIOR INFARCT (CITED ON OR BEFORE 09-APR-2016) ANTEROLATERAL INFARCT (CITED ON OR BEFORE 02-JAN-2015) ABNORMAL ECG WHEN COMPARED WITH ECG OF 02-FEB-2019 10:46, VENT. RATE HAS INCREASED BY 36 BPM Confirmed by ALANA GONSALES MD ([id number]) on 02/05/2019 1:50:10 PM Referred By: NIKKI DUNN Confirmed By:ALANA GONSALES MD
--- NOTE | 2019-02-05 14:47 | PN ---
Progress Note (short form) - Note Progress Note: Current Medications Calcium Acetate (Phoslo -) 667 mg PO TIDCM [facility] Last Admin: 02/05/19 13:10 Dose: 667 mg Chlorhexidine Gluconate (Hibiclens For Decolonization -) 1 applic TP [facility] Last Admin: 02/04/19 21:30 Dose: 1 applic Epoetin Fahad (Procrit -) 20,000 unit IVPUSH ONCE ONE Stop: 02/06/19 06:01 Escitalopram Oxalate (Lexapro -) 5 mg PO [facility] Last Admin: 02/04/19 21:30 Dose: 5 mg Pantoprazole Sodium 80 mg/ (Sodium Chloride) 100 mls @ 10 mls/hr IVPB Q10H [facility] Last Admin: 02/05/19 06:18 Dose: 10 mls/hr Sodium Chloride (Normal Saline -) 250 mls @ 3,000 mls/hr IV PRN PRN PRN Reason: Hypotension during Dialysis Stop: 02/06/19 12:04 Iron Sucrose 100 mg/ Sodium (Chloride) 100 mls @ 200 mls/hr IVPB ONCE ONE Stop: 02/06/19 06:29 Insulin Aspart (Novolog Vial Sliding Scale -) 1 vial SQ [facility]; Protocol Last Admin: 02/05/19 13:03 Dose: 6 units Insulin Detemir (Levemir Vial) 25 units SQ [facility] Last Admin: 02/04/19 21:31 Dose: Not Given Metoprolol Succinate (Toprol Xl -) 12.5 mg PO BID [facility] Last Admin: 02/05/19 10:52 Dose: 12.5 mg Metoprolol Tartrate (Lopressor Injection -) 5 mg IVPUSH Q4H-IV [facility] Last Admin: 02/05/19 10:53 Dose: Not Given Midodrine (Proamatine -) 5 mg PO [facility] Last Admin: 02/04/19 12:02 Dose: 5 mg Mupirocin (Bactroban Ointment (For Decolonization) -) 1 applic NS BID [facility] Stop: 02/07/19 21:59 Last Admin: 02/05/19 10:53 Dose: 1 applic Rosuvastatin Calcium (Crestor -) 10 mg PO [facility] Last Admin: 02/04/19 21:30 Dose: 10 mg Tamsulosin HCl (Flomax -) 0.4 mg PO HS [facility] Last Admin: 02/04/19 21:30 Dose: 0.4 mg Laboratory Results - last 24 hr 02/02/19 02/04/19 02/04/19 11:10 17:21 21:08 WBC RBC Hgb Hct MCV MCH MCHC RDW Plt Count MPV PT with INR INR Sodium Potassium Chloride Carbon Dioxide Anion Gap BUN Creatinine Est GFR (CKD-EPI)AfAm Est GFR (CKD-EPI)NonAf POC Glucometer 319 351 Random Glucose Calcium Phosphorus Magnesium Blood Type A POSITIVE Antibody Screen Negative Crossmatch See Detail 02/05/19 02/05/19 02/05/19 02:52 05:50 05:50 WBC 8.9 RBC 2.71 L Hgb 7.5 L Hct 22.9 L MCV 84.3 MCH 27.7 MCHC 32.8 RDW 16.3 H Plt Count 128 L MPV 10.2 PT with INR INR Sodium 140 Potassium 3.9 Chloride 102 Carbon Dioxide 29 Anion Gap 9 BUN 42.2 H Creatinine 2.3 H Est GFR (CKD-EPI)AfAm 30.17 Est GFR (CKD-EPI)NonAf 26.04 POC Glucometer 286 Random Glucose 330 H* Calcium 8.2 L Phosphorus 3.5 Magnesium 2.1 Blood Type Antibody Screen Crossmatch 02/05/19 02/05/19 02/05/19 05:50 05:53 12:34 WBC RBC Hgb Hct MCV MCH MCHC RDW Plt Count MPV PT with INR 34.70 H INR 2.91 H Sodium Potassium Chloride Carbon Dioxide Anion Gap BUN Creatinine Est GFR (CKD-EPI)AfAm Est GFR (CKD-EPI)NonAf POC Glucometer 304 503 Random Glucose Calcium Phosphorus Magnesium Blood Type Antibody Screen Crossmatch Vital Signs Temperature 98.5 F 02/05/19 08:00 Pulse Rate 91 H 02/05/19 14:00 Respiratory Rate 22 H 02/05/19 14:00 Blood Pressure 119/63 02/05/19 14:00 O2 Sat by Pulse Oximetry (%) 98 02/05/19 09:00 CC: no complaints ``````````````````````` skin--NL color eyes--anicteric lungs--grossly clear heart--RR chest--with supraclav catheter (dialysis) abd--soft, BS+ ext--Pulsation on the RUE fistula but no trill neuro--awake; alert to baseline; follows commands; affect flat; no gross deficits or rigidity `````````````````````````````````````````` Summ > rectal bleed--underlying cause unclear; INR still high, now 2.9. Counts dropped to 7.5 but no rectal bleeding reported today; will now need 1 U PC. not in favor of aggressive measures as co-morbidities make risks for complications of endoscopy higher much higher. PLAN: hold all antiPLt drugs; follow CBC > DM--BS still high; back on insulin w/ coverage > On long-term a/c--has been on Warf/asa/Plavix for mural heart thrombus, but now deemed to be absent on 2 recent echoes. Cardiology feels he should no longer require a/c PLAN: stop Warf > ASHD--with multiple stenting in the past; currently stable; will need either ASA or Plavix once GI bleeding resolved PLAN: cont BB for now > ESRD--on HD, as per Renal. ~~~~~~~~~~~~~~~~~~~~~~~~~~~~ Discussed with at bedside `````````````````````````````` Dr Jean Problem List - Problems (1) Rectal hemorrhage Code(s): K62.5 - HEMORRHAGE OF ANUS AND RECTUM (2) Diabetes Code(s): E11.9 - TYPE 2 DIABETES MELLITUS WITHOUT COMPLICATIONS Qualifiers: Diabetes mellitus type: type 2 Diabetes mellitus extermination supervisor insulin use: with extermination supervisor use Diabetes mellitus complication detail: with other ophthalmic complication (3) ESRD (end stage renal disease) on dialysis Code(s): N18.6 - END STAGE RENAL DISEASE; Z99.2 - DEPENDENCE ON RENAL DIALYSIS (4) Ventricular mural thrombus Code(s): I51.3 - INTRACARDIAC THROMBOSIS, NOT ELSEWHERE CLASSIFIED (5) Anemia Code(s): D64.9 - ANEMIA, UNSPECIFIED Qualifiers: Chronic kidney disease stage: on chronic dialysis Qualified Code(s): N18.6 - End stage renal disease; D63.1 - Anemia in chronic kidney disease; Z99.2 - Dependence on renal dialysis (6) BPH (benign prostatic hypertrophy) Code(s): N40.0 - BENIGN PROSTATIC HYPERPLASIA WITHOUT LOWER URINRY TRACT SYMP Qualifiers: Lower urinary tract symptom presence: symptoms present (7) CAD (coronary artery disease) Code(s): I25.10 - ATHSCL HEART DISEASE OF [place] CORONARY ARTERY W/O ANG PCTRS Qualifiers: Coronary Disease-Associated Artery/Lesion type: unspecified vessel or lesion type Associated angina: without angina (8) Hypotension Code(s): I95.9 - HYPOTENSION, UNSPECIFIED Qualifiers: Hypotension type: unspecified hypotension type Qualified Code(s): I95.9 - Hypotension, unspecified (9) Hyperlipidemia Code(s): E78.5 - HYPERLIPIDEMIA, UNSPECIFIED Qualifiers: Hyperlipidemia type: unspecified Qualified Code(s): E78.5 - Hyperlipidemia , unspecified (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
[2019-02-05] MEDS ORDERED: LACTULOSE 20 GM/30 ML UDC (FOR ORAL USE ONLY) PO STA (14:49)
[2019-02-05] MEDS ORDERED: INSULIN (NOVOLOG) ASPART 100 UNITS/ML 10ML VIAL ONE (15:45)
--- NOTE | 2019-02-05 17:29 | PN ---
Progress Note, Physician Chief Complaint: Pt A&Ox3; pt apologizes for "making so many problems for everyone". No chest pain or abdominal pain. History of Present Illness: Mr. Davila is a 78 yr old man (b. [place]) with history of ESRD on HD (TTS), s/p NSTEMI several years ago, s/p coronary stents (the last > 1 year ago), Hypertension, diastolic CHF (LVEF 50-55 %, with LV regional wall motion abnormalities, on 2018 ECHO), Hx of RV thrombus-->warfarin (though two transthoracic ECHOs in the past year, the latest last week at [facility], noted apparent resolution of ventricular thrombus), who presented from home with a large amount bright red blood from rectum (observed by pt's , Dr. Mp Davila). He was admitted to [facility] for clotted AVG last week during which time there were unable to declot the graft, and had to place a tunneled catheter. Coumadin was held during his time there for procedure; he became subtheraputic and was placed on higher dose of coumadin on discharge. He denies any sob, cp, abd pain, fever, chills, N/V/D. Pt is on ASA/Plavix/ Coumadin. - Current Medication List Current Medications: Active Medications Calcium Acetate (Phoslo -) 667 mg PO [facility]CM [facility] Last Admin: 02/05/19 17:11 Dose: 667 mg Chlorhexidine Gluconate (Hibiclens For Decolonization -) [address] [facility] Last Admin: 02/04/19 21:30 Dose: 1 applic Epoetin Fahad (Procrit -) 20,000 unit IVPUSH ONCE ONE Stop: 02/06/19 06:01 Escitalopram Oxalate (Lexapro -) 5 mg PO HS [facility] Last Admin: 02/04/19 21:30 Dose: 5 mg Pantoprazole Sodium 80 mg/ (Sodium Chloride) 100 mls @ 10 mls/hr IVPB Q10H [facility] Last Admin: 02/05/19 17:10 Dose: 10 mls/hr Sodium Chloride (Normal Saline -) 250 mls @ 3,000 mls/hr IV PRN PRN PRN Reason: Hypotension during Dialysis Stop: 02/06/19 12:04 Iron Sucrose 100 mg/ Sodium (Chloride) 100 mls @ 200 mls/hr IVPB ONCE ONE Stop: 02/06/19 06:29 Insulin Aspart (Novolog Vial Sliding Scale -) 1 vial SQ [facility]; Protocol Last Admin: 02/05/19 15:43 Dose: 6 units Insulin Detemir (Levemir Vial) [address] [facility] Last Admin: 02/04/19 21:31 Dose: Not Given Metoprolol Succinate (Toprol Xl -) 12.5 mg PO BID [facility] Last Admin: 02/05/19 10:52 Dose: 12.5 mg Metoprolol Tartrate (Lopressor Injection -) 5 mg IVPUSH Q4H-IV [facility] Last Admin: 02/05/19 17:10 Dose: Not Given Midodrine (Proamatine -) 5 mg PO [facility] Last Admin: 02/04/19 12:02 Dose: 5 mg Mupirocin (Bactroban Ointment (For Decolonization) -) 1 applic NS BID [facility] Stop: 02/07/19 21:59 Last Admin: 02/05/19 10:53 Dose: 1 applic Rosuvastatin Calcium (Crestor -) [address] [facility] Last Admin: 02/04/19 21:30 Dose: 10 mg Tamsulosin HCl (Flomax -) 0.[address] [facility] Last Admin: 02/04/19 21:30 Dose: 0.4 mg - Objective Vital Signs: Vital Signs Temperature 98.5 F 02/05/19 08:00 Pulse Rate 91 H 02/05/19 14:00 Respiratory Rate 22 H 02/05/19 14:00 Blood Pressure 119/63 02/05/19 14:00 O2 Sat by Pulse Oximetry (%) 98 02/05/19 09:00 Constitutional: Yes: Anxious Eyes: Yes: WNL HENT: Yes: WNL Neck: Yes: WNL Cardiovascular: Yes: S1, S2 Respiratory: Yes: Regular Gastrointestinal: Yes: Soft ...Rectal Exam: Yes: Deferred Genitourinary: Yes: Other (regular hemodialysis). No: Anuria Musculoskeletal: Yes: Muscle Weakness Extremities: Yes: Cool Edema: No Peripheral Pulses WNL: No Peripheral Pulses: Left Doralis Pedis: 1+, Right Dorsalis Pedis: 1+ Integumentary: Yes: Bruising Neurological: Yes: Alert, Oriented, Weakness Psychiatric: Yes: Alert, Oriented (anxiety/depression) Labs: CBC, BMP 02/05/19 05:50 02/05/19 05:50 INR, PTT INR 2.91 (0.83-1.09) H 02/05/19 05:50 Abnormal Lab Results 02/02/19 02/06/19 02/06/19 11:10 06:10 06:10 WBC RBC Hgb Hct RDW PT with INR 22.20 H INR 1.87 H Sodium Chloride BUN Creatinine Random Glucose Calcium Crossmatch See Detail See Detail 02/06/19 02/06/19 06:10 06:23 WBC 11.3 H RBC 3.23 L Hgb 9.0 L Hct 27.6 L D RDW 16.0 H PT with INR INR Sodium 135 L Chloride 96 L BUN 62.3 H Creatinine 2.9 H Random Glucose 316 H* Calcium 8.3 L Crossmatch Problem List - Problems (1) NSTEMI (non-ST elevated myocardial infarction) Code(s): I21.4 - NON-ST ELEVATION (NSTEMI) MYOCARDIAL INFARCTION (2) Rectal hemorrhage Assessment/Plan: INR increased to 2.9, despite warfarin being stopped since admission days ago. Small additional rectal bleed, with drop in Hb--> PRBCs today. Off all antiplatelets and warfarin since admission; will discuss possible restart of an antiplatelet (likely ASA) if hematologic condition stablizes. Code(s): K62.5 - HEMORRHAGE OF ANUS AND RECTUM (3) AV fistula occlusion Code(s): T82.898A - OTH COMPLICATION OF VASCULAR PROSTH DEV/GRFT, INIT Qualifiers: Encounter type: sequela Qualified Code(s): T82.898S - Other specified complication of vascular prosthetic devices, implants and grafts, sequela (4) Acute on chronic systolic and diastolic heart failure, NYHA class 1 Assessment/Plan: Per Dr. Daivla, pt has had hypotensive episodes when placed on multiple medications for CHF and HTN. Would continue beta blockers (episodes of sinus tachycardia, HTN elin-dialysis; borderline reduced LVEF with regional wall motion abnormalities); F/u BUN/Cr, electrolytes, Is and Os, daily weight, BP and HR. Trans thoracic ECHO x 2 in 2019: low-normal LVEF; ventricular thrombus appears resolved. Code(s): I50.43 - ACUTE ON CHRONIC COMBINED SYSTOLIC AND DIASTOLIC HRT FAIL (5) Anemia Code(s): D64.9 - ANEMIA, UNSPECIFIED Qualifiers: Chronic kidney disease stage: on chronic dialysis Qualified Code(s): N18.6 - End stage renal disease; D63.1 - Anemia in chronic kidney disease; Z99.2 - Dependence on renal dialysis (6) Anxiety and depression Code(s): F41.8 - OTHER SPECIFIED ANXIETY DISORDERS (7) BPH (benign prostatic hypertrophy) Assessment/Plan: Prostate specific Ag elevated in 2018; f/u clinically. Code(s): N40.0 - BENIGN PROSTATIC HYPERPLASIA WITHOUT LOWER URINRY TRACT SYMP Qualifiers: Lower urinary tract symptom presence: symptoms present (8) Hx of heart artery stent Code(s): Z95.5 - PRESENCE OF CORONARY ANGIOPLASTY IMPLANT AND GRAFT (9) Ventricular mural thrombus Assessment/Plan: Please see under "Rectal Hemorrhage"). Code(s): I51.3 - INTRACARDIAC THROMBOSIS, NOT ELSEWHERE CLASSIFIED Assessment/Plan CCU time spent: 35 minutes.
--- NOTE | 2019-02-05 17:29 | PN ---
Progress Note, Physician - Current Medication List Current Medications: Active Medications Calcium Acetate (Phoslo -) 667 mg PO [facility]CM [facility] Last Admin: 02/05/19 17:11 Dose: 667 mg Chlorhexidine Gluconate (Hibiclens For Decolonization -) 1 applic TP [facility] Last Admin: 02/04/19 21:30 Dose: 1 applic Epoetin Fahad (Procrit -) 20,000 unit IVPUSH ONCE ONE Stop: 02/06/19 06:01 Escitalopram Oxalate (Lexapro -) 5 mg PO [facility] Last Admin: 02/04/19 21:30 Dose: 5 mg Pantoprazole Sodium 80 mg/ (Sodium Chloride) 100 mls @ 10 mls/hr IVPB Q10H [facility] Last Admin: 02/05/19 17:10 Dose: 10 mls/hr Sodium Chloride (Normal Saline -) 250 mls @ 3,000 mls/hr IV PRN PRN PRN Reason: Hypotension during Dialysis Stop: 02/06/19 12:04 Iron Sucrose 100 mg/ Sodium (Chloride) 100 mls @ 200 mls/hr IVPB ONCE ONE Stop: 02/06/19 06:29 Insulin Aspart (Novolog Vial Sliding Scale -) 1 vial SQ [facility]; Protocol Last Admin: 02/05/19 15:43 Dose: 6 units Insulin Detemir (Levemir Vial) 25 units SQ [facility] Last Admin: 02/04/19 21:31 Dose: Not Given Metoprolol Succinate (Toprol Xl -) 12.5 mg PO BID [facility] Last Admin: 02/05/19 10:52 Dose: 12.5 mg Metoprolol Tartrate (Lopressor Injection -) 5 mg IVPUSH Q4H-IV [facility] Last Admin: 02/05/19 17:10 Dose: Not Given Midodrine (Proamatine -) 5 mg PO [facility] Last Admin: 02/04/19 12:02 Dose: 5 mg Mupirocin (Bactroban Ointment (For Decolonization) -) 1 applic NS BID [facility] Stop: 02/07/19 21:59 Last Admin: 02/05/19 10:53 Dose: 1 applic Rosuvastatin Calcium (Crestor -) 10 mg PO [facility] Last Admin: 02/04/19 21:30 Dose: 10 mg Tamsulosin HCl (Flomax -) 0.4 mg PO HS [facility] Last Admin: 02/04/19 21:30 Dose: 0.4 mg - Objective Vital Signs: Vital Signs Temperature 98.5 F 02/05/19 08:00 Pulse Rate 91 H 02/05/19 14:00 Respiratory Rate 22 H 02/05/19 14:00 Blood Pressure 119/63 02/05/19 14:00 O2 Sat by Pulse Oximetry (%) 98 02/05/19 09:00 Labs: CBC, BMP 02/05/19 05:50 02/05/19 05:50 INR, PTT INR 2.91 (0.83-1.09) H 02/05/19 05:50 Problem List - Problems (1) NSTEMI (non-ST elevated myocardial infarction) Code(s): I21.4 - NON-ST ELEVATION (NSTEMI) MYOCARDIAL INFARCTION (2) Rectal hemorrhage Code(s): K62.5 - HEMORRHAGE OF ANUS AND RECTUM (3) AV fistula occlusion Code(s): T82.898A - OT COMPLICATION OF VASCULAR PROSTH DEV/GRFT, INIT Qualifiers: Encounter type: sequela Qualified Code(s): T82.898S - Other specified complication of vascular prosthetic devices, implants and grafts, sequela (4) Acute on chronic systolic and diastolic heart failure, NYHA class 1 Code(s): I50.43 - ACUTE ON CHRONIC COMBINED SYSTOLIC AND DIASTOLIC HRT FAIL (5) Anemia Code(s): D64.9 - ANEMIA, UNSPECIFIED Qualifiers: Chronic kidney disease stage: on chronic dialysis Qualified Code(s): N18.6 - End stage renal disease; D63.1 - Anemia in chronic kidney disease; Z99.2 - Dependence on renal dialysis (6) Anxiety and depression Code(s): F41.8 - OTHER SPECIFIED ANXIETY DISORDERS (7) BPH (benign prostatic hypertrophy) Code(s): N40.0 - BENIGN PROSTATIC HYPERPLASIA WITHOUT LOWER URINRY TRACT SYMP Qualifiers: Lower urinary tract symptom presence: symptoms present (8) Hx of heart artery stent Code(s): Z95.5 - PRESENCE OF CORONARY ANGIOPLASTY IMPLANT AND GRAFT (9) Ventricular mural thrombus Code(s): I51.3 - INTRACARDIAC THROMBOSIS, NOT ELSEWHERE CLASSIFIED
[2019-02-05] MEDS ORDERED: ROSUVASTATIN CA 10 MG TABLET (FP) PO SCH (22:00)
[2019-02-05] MEDS ORDERED: ESCITALOPRAM OXALATE 10 MG TABLET (FP) PO SCH (22:00)
[2019-02-05] MEDS ORDERED: INSULIN (LEVEMIR) 100 UNITS/ML UNITS SQ SCH (22:00)
[2019-02-05] MEDS ORDERED: TAMSULOSIN HCL 0.4 MG CAP PO SCH (22:00)
[2019-02-05] MEDS ORDERED: CHLORHEXIDINE GLUCONATE 4% CLEANSER FOR DECOLONIZATION TP SCH (22:00)
[2019-02-06] MEDS: METOPROLOL TARTRATE 5 MG/5 ML VIAL IVPUSH SCH ×5 (01:08→14:43)
[2019-02-06] MEDS: PANTOPRAZOLE SODIUM 80 MG in SODIUM CHLORIDE 100 ML IVPB SCH ×3 (01:08→11:08)
[2019-02-06] MEDS ORDERED: MIDODRINE HCL 5 MG TABLET PO SCH ×2 (06:12→11:53)
[2019-02-06] MEDS ORDERED: SODIUM CHLORIDE 250 ML IV PRN (07:24)
[2019-02-06 07:25] LABS: BLOOD UREA NITROGEN 62.3 mg/dL (7-18); CALCIUM 8.3 mg/dL (8.5-10.1); CREATININE 2.9 mg/dL (0.55-1.3); PHOSPHOROUS 2.7 mg/dL (2.5-4.9); POTASSIUM 3.7 mmol/L (3.5-5.1)
[2019-02-06 07:43] LABS: INR 1.87 (0.83-1.09); PROTHROMBIN TIME (PATIENT) 22.2 SEC (9.7-13.0)
[2019-02-06] MEDS ORDERED: EPOETIN ALFA 20,000 UNIT/1 ML VIAL IVPUSH ONE (08:00)
[2019-02-06 08:05] LABS: HEMATOCRIT 27.6 % (35.4-49); MCHC 32.8 g/dl (32.0-35.9); MEAN CELL VOLUME 85.3 fl (80-96); MEAN PLT VOLUME 10.2 fl (7.5-11.1); PLATELET COUNT 152 K/MM3 (134-434); RBC 3.23 M/mm3 (4.00-5.60); WHITE BLOOD COUNT 11.3 K/mm3 (4.0-10.0)
[2019-02-06] MEDS ORDERED: IRON SUCROSE INJECTION 100 MG in SODIUM CHLORIDE 95 ML IVPB ONE (09:00)
--- NOTE | 2019-02-06 09:54 | PN ---
Progress Note, Physician Chief Complaint: Cardiology for Dr. Moreno History of Present Illness: Mr. Davila is a 78 yr old man (b. [place]) with history of ESRD on HD (TTS), s/p NSTEMI several years ago, s/p coronary stents (the last > 1 year ago), Hypertension, diastolic CHF (LVEF 50-55 %, with LV regional wall motion abnormalities, on 2018 ECHO), Hx of RV thrombus-->warfarin (though two transthoracic ECHOs in the past year, the latest last week at [facility], noted apparent resolution of ventricular thrombus), who presented from home with a large amount bright red blood from rectum (observed by pt's , Dr. Gresham Lola). He was admitted to [facility] for clotted AVG last week during which time there were unable to declot the graft, and had to place a tunneled catheter. Coumadin was held during his time there for procedure; he became subtheraputic and was placed on higher dose of coumadin on discharge. He is undergoing HD and denies any sob, cp, abd pain, fever, chills, N/V/D. Pt was previously on ASA/Plavix/Coumadin since held, transfused 1 U pRBC, denies further hematochezia. Currently in rapid afib after metoprolol dose was held overnight. - Current Medication List Current Medications: Active Medications Calcium Acetate (Phoslo -) 667 mg PO TIDCM [facility] Escitalopram Oxalate (Lexapro -) 5 mg PO [facility] Last Admin: 02/05/19 22:00 Dose: 5 mg Sodium Chloride (Normal Saline -) 250 mls @ 3,000 mls/hr IV PRN PRN PRN Reason: Hypotension during Dialysis Stop: 02/07/19 07:23 Pantoprazole Sodium 80 mg/ (Sodium Chloride) 100 mls @ 10 mls/hr IVPB Q10H [facility] Last Admin: 02/06/19 03:32 Dose: 10 mls/hr Insulin Aspart (Novolog Vial Sliding Scale -) 1 vial SQ [facility]; Protocol Last Admin: 02/05/19 22:01 Dose: Not Given Insulin Detemir (Levemir Vial) 25 units SQ [facility] Last Admin: 02/05/19 22:01 Dose: 25 units Metoprolol Succinate (Toprol Xl -) 12.5 mg PO BID [facility] Last Admin: 02/05/19 21:46 Dose: Not Given Metoprolol Tartrate (Lopressor Injection -) 5 mg IVPUSH Q4H-IV [facility] Last Admin: 02/06/19 08:27 Dose: 5 mg Midodrine (Proamatine -) 5 mg PO [facility] Last Admin: 02/06/19 06:18 Dose: 5 mg Rosuvastatin Calcium (Crestor -) 10 mg PO [facility] Last Admin: 02/05/19 22:00 Dose: 10 mg Tamsulosin HCl (Flomax -) 0.4 mg PO [facility] Last Admin: 02/05/19 22:00 Dose: 0.4 mg - Objective Vital Signs: Vital Signs Temperature 98.8 F 02/06/19 06:55 Pulse Rate 129 H 02/06/19 09:30 Respiratory Rate 18 02/06/19 09:30 Blood Pressure 119/47 L 02/06/19 09:30 O2 Sat by Pulse Oximetry (%) 98 02/05/19 21:00 Constitutional: Yes: No Distress, Calm, Thin Neck: Yes: Supple Cardiovascular: Yes: Tachycardia, Pulse Irregular Respiratory: Yes: Regular, Diminished, On Nasal O2 Gastrointestinal: Yes: Normal Bowel Sounds, Soft Edema: No Labs: CBC, BMP 02/06/19 06:10 02/06/19 06:23 INR, PTT INR 1.87 (0.83-1.09) H 02/06/19 06:10 - ....Imaging EKG: Report Reviewed (Tele: Rapid afib) Assessment/Plan - Problems (1) NSTEMI (non-ST elevated myocardial infarction) Code(s): I21.4 - NON-ST ELEVATION (NSTEMI) MYOCARDIAL INFARCTION (2) Rectal hemorrhage Assessment/Plan: INR subtherapeutic with warfarin being stopped since admission days ago. Small additional rectal bleed, with drop in Hb--> PRBCs with appropriate Hgb rise. Off all antiplatelets and warfarin since admission; will discuss possible restart of oral anticoagulation (coumadin vs Eliquis) once hemostasis achieved, would avoid concomitant antiplatelets as last PCI > 1 year and CAD is stable Code(s): K62.5 - HEMORRHAGE OF ANUS AND RECTUM (3) AV fistula occlusion Code(s): T82.898A - OTH COMPLICATION OF VASCULAR PROSTH DEV/GRFT, INIT Qualifiers: Encounter type: sequela Qualified Code(s): T82.898S - Other specified complication of vascular prosthetic devices, implants and grafts, sequela (4) Acute on chronic systolic and diastolic heart failure, NYHA class 1 Assessment/Plan: Per Dr. Davila, pt has had hypotensive episodes when placed on multiple medications for CHF and HTN. Would continue beta blockers (episodes of sinus tachycardia, HTN elin-dialysis; borderline reduced LVEF with regional wall motion abnormalities); F/u BUN/Cr, electrolytes, Is and Os, daily weight, BP and HR. Trans thoracic ECHO x 2 in 2019: low-normal LVEF; ventricular thrombus appears resolved. Code(s): I50.43 - ACUTE ON CHRONIC COMBINED SYSTOLIC AND DIASTOLIC HRT FAIL (5) Anemia Code(s): D64.9 - ANEMIA, UNSPECIFIED Qualifiers: Chronic kidney disease stage: on chronic dialysis Qualified Code(s): N18.6 - End stage renal disease; D63.1 - Anemia in chronic kidney disease; Z99.2 - Dependence on renal dialysis (6) Anxiety and depression Code(s): F41.8 - OTHER SPECIFIED ANXIETY DISORDERS (7) BPH (benign prostatic hypertrophy) Assessment/Plan: Prostate specific Ag elevated in 2018; f/u clinically. Code(s): N40.0 - BENIGN PROSTATIC HYPERPLASIA WITHOUT LOWER URINRY TRACT SYMP Qualifiers: Lower urinary tract symptom presence: symptoms present (8) Hx of heart artery stent Code(s): Z95.5 - PRESENCE OF CORONARY ANGIOPLASTY IMPLANT AND GRAFT (9) Ventricular mural thrombus Assessment/Plan: Please see under "Rectal Hemorrhage"). Resume anticoagulation once hemostasis achieved Code(s): I51.3 - INTRACARDIAC THROMBOSIS, NOT ELSEWHERE CLASSIFIED (10) Rapid afib I48.91 Resume Toprol XL 12.5 bid with IV Lopressor and Cardizem as needed for rate- control, See above for a/c recommendations (11) Hyperlipidemia E78.5 Crestor 10 qhs (12) ESRD on HD N18.6
[2019-02-06] MEDS ORDERED: dilTIAZem HCL 50 MG/10 ML - 10 ML VIAL IVPUSH PRN ×2 (09:56→09:59)
[2019-02-06] MEDS ORDERED: dilTIAZem HCL 25 MG/5 ML - 5 ML VIAL IVPUSH PRN (09:57)
[2019-02-06] MEDS ORDERED: dilTIAZem HCL 25 MG/5 ML - 5 ML VIAL IVPUSH ONE (10:10)
[2019-02-06] MEDS ORDERED: PT OWN MED DRAWER 7, Y5N ONE (11:06)
[2019-02-06] MEDS: CALCIUM ACETATE 667 MG CAPSULE (FP) PO SCH ×2 (11:07→11:09)
[2019-02-06] MEDS: INSULIN SLIDING SCALE (NOVOLOG) 1 VIAL SQ SCH (11:07)
[2019-02-06] MEDS: metoPROLOL SUCCINATE 25 MG TAB.SR.24H (FP) PO SCH ×2 (11:08→11:13)
[2019-02-06 11:36] LABS: BLOOD UREA NITROGEN 11.5 mg/dL (7-18); CREATININE 0.8 mg/dL (0.55-1.3)
--- NOTE | 2019-02-06 15:17 | EKG ---
Test Reason : Blood Pressure : / mmHG Vent. Rate : 113 BPM Atrial Rate : 120 BPM P-R Int : 000 ms QRS Dur : 098 ms QT Int : 304 ms P-R-T Axes : 000 -67 119 degrees QTc Int : 416 ms ATRIAL FIBRILLATION WITH RAPID VENTRICULAR RESPONSE LEFT AXIS DEVIATION MINIMAL VOLTAGE CRITERIA FOR LVH, MAY BE NORMAL VARIANT INFERIOR INFARCT (CITED ON OR BEFORE 09-APR-2016) ANTEROSEPTAL INFARCT (CITED ON OR BEFORE 02-JAN-2015) ABNORMAL ECG WHEN COMPARED WITH ECG OF 05-FEB-2019 11:40, ATRIAL FIBRILLATION HAS REPLACED SINUS RHYTHM Confirmed by MD Brandon, Iasel ([id number]) on 02/06/2019 3:16:43 PM Referred By: Dacia VENTURA Confirmed By:Isael Taylor MD
[2019-02-06 15:48] VITALS: BP 123/66; PULSE 87; TEMP 99.4
--- NOTE | 2019-02-06 16:05 | DS ---
Physical Examination Vital Signs: Vital Signs Temperature 99.4 F 02/06/19 13:05 Pulse Rate 87 02/06/19 13:05 Respiratory Rate 18 02/06/19 13:05 Blood Pressure 123/66 02/06/19 13:05 O2 Sat by Pulse Oximetry (%) 98 02/06/19 09:00 Constitutional: Yes: No Distress, Calm Eyes: Yes: Conjunctiva Clear HENT: Yes: Atraumatic Neck: Yes: Supple Cardiovascular: Yes: Regular Rate and Rhythm Respiratory: Yes: Regular Gastrointestinal: Yes: Soft Musculoskeletal: Yes: WNL Extremities: Yes: Other (Fistula LUE) Edema: No Peripheral Pulses: Left Doralis Pedis: 0, Right Dorsalis Pedis: 0 Integumentary: Yes: WNL Neurological: Yes: Weakness (no focal deficits; asthenic; awake, verbal, follows commands; good eye contact; moves all extrems) ...Motor Strength: WNL Psychiatric: Yes: WNL Labs: CBC, BMP 02/06/19 06:10 02/06/19 10:30 INR=1.9 Discharge Summary Reason For Visit: GASTROINTESTINAL HEMORRHAGE Current Active Problems Rectal hemorrhage (Acute) ASHD S/p old CA s/p PCI Correction a/c hx ESRD on HD DM BPH anemia of renal dz SVT ATF Procedures: Principal: dialysis Hospital Course: 78 year old male S male with a past medical history of NSTEMI, ASHD/CAD (s /p 5 stents most recent last year), diabetes, ESRD on dialysis, who developed painless rectal bleed (with clots)when his Dr. Davila reported that she found him in bed with his sheets covered in blood. Denies any associated abdominal pain, nausea or vomiting. Denies NSAID use. Denies chest pain, shortness of breath, fevers, chills. He had one other episode of bloody BM's while hospitalized but soon abated as he was taken off a/c & anti-PLT agents. he required 1 unit of PC as the hgb fell to 7.5 w/o further bleeding while the INR was above 2.0. He was taken off warfarin because it was noted that the ventriculr thrombus has resolved. Asa & Plavix held in view of the rectal bleed. did wish to subject him to endoscopy because of his brittle state and co-morbidities placing him at further risk of demise. She was made aware that this bleed could be stemming from a possible GI neoplasm uncovered while anticoagulated but she still declined to put his through any procedures. His exam was benign throughout his stay, and had few if any complaints. He had no n- v; dyspepsia, he ate well and had regular BMs. He developed tachycardia while having dialysis this AM, bit reverted back to NSR. This is something that has occured in the past. She is opposed to placing him back on a/c (for his pATF). Condition: Guarded - Instructions Diet, Activity, Other Instructions: diet as usual dialysis TIW f/u with dr Hess & igor check CBC & INR as OP watch for new rectal bleed Referrals: Coleman Hess MD [Primary Care Provider] - Disposition: HOME - Home Medications Comprehensive Discharge Medication List: Ambulatory Orders Escitalopram Oxalate [Lexapro -] 5 mg PO HS tablet 02/27/18 Insulin Sliding Scale [Novolog Vial Sliding Scale -] 1 vial SQ [facility] units Rosuvastatin [Crestor -] 10 mg PO HS tablet 02/27/18 Tamsulosin HCl [Flomax -] 0.4 mg PO HS cap.er.24h 02/27/18 Metoprolol Tartrate [Lopressor -] 12.5 mg PO BID tablet 02/28/18 Calcium Acetate [Phoslo -] 667 mg PO [facility] 04/30/18 Insulin Glargine,Hum.rec.anlog [Lantus] 25 unit SQ [facility] 08/24/18 Midodrine HCl [Proamatine -] 5 mg PO [facility] 08/24/18
== END 2019-02-06 17:57 | disposition home or self-care (01) | DRG 813 ==
LOC: JER 09:27 → JERBED 13:52 → UNDOADMIN 13:52 → JICU 19:02 → J4S 02-05 16:54
PROVIDERS: ADMIT Internal Medicine; ATTEND Internal Medicine
PROC: 5A1D70Z Performance of Urinary Filtration, Intermittent, Less than 6 Hours Per Day (ICD-10-PCS; 2019-02-02)
PROC: 30233N1 Transfusion of Nonautologous Red Blood Cells into Peripheral Vein, Percutaneous Approach (ICD-10-PCS; principal; 2019-02-05)
DX: D68.32 Hemorrhagic disorder due to extrinsic circulating anticoagulants (principal); N18.6 End stage renal disease; I50.43 Acute on chronic combined systolic (congestive) and diastolic (congestive) heart failure; I13.2 Hypertensive heart and chronic kidney disease with heart failure and with stage 5 chronic kidney disease, or end stage renal disease; K62.5 Hemorrhage of anus and rectum; T45.515A Adverse effect of anticoagulants, initial encounter; I25.2 Old myocardial infarction; E11.22 Type 2 diabetes mellitus with diabetic chronic kidney disease; I50.9 Heart failure, unspecified; Z99.2 Dependence on renal dialysis; I25.10 Atherosclerotic heart disease of native coronary artery without angina pectoris; Z79.4 Long term (current) use of insulin; D64.9 Anemia, unspecified; F41.8 Other specified anxiety disorders; N40.0 Benign prostatic hyperplasia without lower urinary tract symptoms; Z95.5 Presence of coronary angioplasty implant and graft; D69.6 Thrombocytopenia, unspecified; E78.5 Hyperlipidemia, unspecified; Z86.74 Personal history of sudden cardiac arrest; I48.91 Unspecified atrial fibrillation; D63.1 Anemia in chronic kidney disease; I95.9 Hypotension, unspecified
CPT/HCPCS: 36415; 36430; 80048; 80053; 82272; 82550; 82565; 82962; 83540; 83550; 83735; 84100; 84484; 84520; 85025; 85027; 85610; 85730; 86803; 86850; 86900; 86901; 86922; 87340; 93005; 93010; 99285-25; J0885; J1756; P9038; P9058

== ENCOUNTER 2019-09-06 22:22 | Inpatient (IN) | payer OTHER, MEDICARE ==
[2019-09-06 22:33] VITALS: BMI 22.4
--- NOTE | 2019-09-06 23:05 | PDOC ---
History of Present Illness - General Chief Complaint: Weakness Stated Complaint: WEAKNESS Time Seen by Provider: 09/06/19 22:37 History Source: Family (Son), Spouse Exam Limitations: Clinical Condition, Other - History of Present Illness Initial Comments: 09/06/19 23:01 79y M with PMH of CAD s/p stents x5, LV thrombus, ESRD on HD T//, CHF, IDDM, HLD, GI bleed presenting to ED for weakness, decreased appetite and confusion for 5 days. Per (Dr. Davila) patient was improving yesterday but today she noticed patient spit up around 25mL of red blood x1. She did not notice any cuts in the mouth or bleeding gums. Denies history of TB, fever, cough, congestion, headache, vomiting, bloody stools/tarry stools, abdominal pain, sick contacts, recent illnesses. Finished dialysis on Friday. states that patient wanted ice cream today and she gave him 30u of Lantus. PMD: Deshawn Renal: Luis PMH: see hpi Meds: see med rec Allergies: nkda Past History - Past Medical History Allergies/Adverse Reactions: Allergies Allergy/AdvReac Type Severity Reaction Status Date / Time No Known Allergies Allergy Verified 09/06/19 22:33 Home Medications: Ambulatory Orders Escitalopram Oxalate [Lexapro -] 5 mg PO HS tablet 02/27/18 Insulin Sliding Scale [Novolog Vial Sliding Scale -] 1 vial SQ TIDAC units 02/27/18 Rosuvastatin [Crestor -] 10 mg PO HS tablet 02/27/18 Tamsulosin HCl [Flomax -] 0.4 mg PO HS cap.er.24h 02/27/18 Calcium Acetate [Phoslo -] 667 mg PO TID 04/30/18 Insulin Glargine,Hum.rec.anlog [Lantus] 25 unit SQ HS 08/24/18 Midodrine HCl [Proamatine -] 5 mg PO Q48H 08/24/18 Clopidogrel Bisulfate [Plavix] 75 mg PO DAILY 09/07/19 Metoprolol Tartrate [Lopressor -] 12.5 mg PO Q48H 09/07/19 Anemia: Yes (GI BLEED) Asthma: No Cancer: No Cardiac Disorders: Yes (CAD, [place] 06/2017, Stents, VENTRICULAR THROMBUS) CVA: Yes (+ CVA) COPD: No CHF: Yes (CHF) Dementia: No Diabetes: Yes GI Disorders: Yes (GI BLEED) Disorders: Yes (BPH) HTN: Yes Hypercholesterolemia: Yes Liver Disease: No Seizures: No Thyroid Disease: No - Surgical History Abdominal Surgery: No Appendectomy: No Cardiac Surgery: Yes (multiple stents) Cholecystectomy: No Lung Surgery: No Neurologic Surgery: No Orthopedic Surgery: Yes (RIGHT SHOULDER SX) - Immunization History Immunization Up to Date: Yes - Psycho Social/Smoking Cessation Hx Smoking History: Never smoked Have you smoked in the past 12 months: No Information on smoking cessation initiated: No Hx Alcohol Use: No Drug/Substance Use Hx: No Substance Use Type: None Hx Substance Use Treatment: No Review of Systems - Review of Systems Able to Perform ROS?: No *Physical Exam - Vital Signs Last Vital Signs Temp Pulse Resp BP Pulse Ox 98.7 F 113 H 15 164/84 100 09/06/19 22:29 09/06/19 22:29 09/06/19 22:29 09/06/19 22:29 09/06/19 22:29 - Physical Exam General Appearance: Yes: Appropriately Dressed, Thin. No: Apparent Distress HEENT: positive: EOMI, LUIS, Other (multiple missing teeth, no oral lesions. no dried blood seen) Neck: positive: Trachea midline, Supple. negative: Lymphadenopathy (R), Lymphadenopathy (L) Respiratory/Chest: positive: Lungs Clear, Decreased Breath Sounds (LLL). negative: Chest Tender, Labored Respiration, Rapid RR, Crackles, Rales, Rhonchi, Stridor Cardiovascular: positive: Tachycardia, Irregularly Irregular. negative: Edema, JVD, Murmur Vascular Pulses: Dorsalis-Pedis (R): 2+, Doralis-Pedis (L): 2+ Gastrointestinal/Abdominal: positive: Normal Bowel Sounds, Soft. negative: Tender, Distended, Guarding Rectal Exam: positive: heme negative stool Musculoskeletal: negative: CVA Tenderness Extremity: positive: Normal Capillary Refill. negative: Swelling, Calf Tenderness, Erythema Integumentary: positive: Normal Color, Dry, Warm Neurologic: positive: courtroom reporter II-XII NML intact, Alert, Normal Response, Motor Strength 5/5. negative: Fully Oriented (AOx2 (AOX3 at baseline)) ED Treatment Course - LABORATORY CBC & Chemistry Diagram: 09/07/19 01:05 09/07/19 00:04 - RADIOLOGY Radiology Studies Ordered: Category Date Time Status CHEST X-RAY PORTABLE* [RAD] Stat Radiology 09/06/19 22:54 Ordered Medical Decision Making - Medical Decision Making 09/07/19 06:40 79y M presenting for weakness, decreased appetite and confusion. spitting up blood today. vitals: tachycardia ekg: afib rvr at 129bpm. L axis deviation. no signs of acute ischemia. twi in lead I. similar to prior ekg. pt was admitted last year for gi bleed and AC was discontinued at that time. labs show cbc at baseline. hyperglycemia: 600. no acidosis, no anion gap. other electrolytes wnl. will give diltaizem iv. po given as well. hr 80s. sq insulin ordered, given IV. will closely monitor. guaiac negative. Head CT negative. hr elevated again in 120s. will give another 10mg push because states patient is sensitive to bb and ccb (went into asystole last time). ua negative for infection. will admit to tele. Discharge - Discharge Information Problems reviewed: Yes Clinical Impression/Diagnosis: Atrial fibrillation with RVR, Hyperglycemia, Weakness - Follow up/Referral - Patient Discharge Instructions - Post Discharge Activity
--- NOTE | 2019-09-07 00:01 | PDOC ---
Documentation entered by Victoria Ferguson SCRIBE, acting as scribe for Yolanda Rushing MD. Yolanda Rushing MD: This documentation has been prepared by the kendelle, Victoria Parker SCRIBE, under my direction and personally reviewed by me in its entirety. I confirm that the documentation accurately reflects all work, treatment, procedures, and medical decision making performed by me. 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 Per the patient is normally aao x3. notes she gave the patient ice-cream and shortly after she noticed bright red blood from mouth (hemoptysis). notes the patient had dental extractions 1 month ago. Allergies: NKDA Surgical Hx: December 05 2017 - Renal angioplasty. 02/12/18 - Left AVF with stenosis. [place] (Jul) with multiple stent placement. PCP: Coleman Hess Form Carpenter: Dr Moreno Software Development Test Engineer: Dr Del Cid and Dr Smith - Physicial Exam PE: 09/06/19 23:01 GENERAL: Awake, +slightly altered. HEAD: No signs of trauma EYES: PERRLA, EOMI, sclera anicteric, conjunctiva clear Oral exam patient is partially edentulous NECK: Normal ROM LUNGS: Breath sounds equal, clear to auscultation bilaterally. No wheezes, and no crackles HEART: +tachy, no murmurs, rubs or gallops ABDOMEN: Soft, nontender, normoactive bowel sounds. No guarding, no rebound. No masses EXTREMITIES: Left arm AV fistula with a positive bruit NEUROLOGICAL: awake but not his usual self according to family SKIN: AV fistula with + thrill,bruit 09/06/19 23:58 09/07/19 00:01 09/07/19 01:27 - Medical Decision Making 09/07/19 00:02 79-year-old male presents with rapid A. fib and 70 decreased mentation He has his hemodialysis on Friday and Friday but he did not go to dialysis on Friday because he felt weak His states he has had decreased p.o. intake and today she did try to coax some ice cream into him and she found that he had bleeding orally 09/07/19 01:09 09/07/19 01:28 CBC shows hemoglobin of 10.9. There is no leukocytosis. - chemistries show that his electrolytes are within normal limits, potassium equal to 5.1 however his hyperglycemia with a glucose of 640. He did eat ice cream prior to arrival. His LFTs are within normal limits,
[2019-09-07] MEDS ORDERED: dilTIAZem HCL 50 MG/10 ML - 10 ML VIAL IVPUSH ONE ×2 (00:20→02:24)
[2019-09-07 00:34] LABS: VENOUS PC02 47.5 mmHg (38-52); VENOUS PH 7.36 (7.31-7.41); VENOUS PO2 < 49 mmHg (28-48)
[2019-09-07 00:39] LABS: INR 0.97 (0.83-1.09); PROTHROMBIN TIME (PATIENT) 11.5 SEC (9.7-13.0)
[2019-09-07 00:41] LABS: ACTIVATED PTT 20.8 SECONDS (25.2-36.5)
[2019-09-07] MEDS ORDERED: dilTIAZem HCL 125 MG/25 ML - 25 ML VIAL ONE ×2 (00:47→02:43)
[2019-09-07 00:59] LABS: ALBUMIN 2.9 g/dl (3.4-5.0); BILIRUBIN,TOTAL 0.3 mg/dL (0.2-1); BLOOD UREA NITROGEN 87.6 mg/dL (7-18); CALCIUM 8.2 mg/dL (8.5-10.1); CREATININE 3.6 mg/dL (0.55-1.3); POTASSIUM 5.1 mmol/L (3.5-5.1); TOT PROT 6.9 g/dl (6.4-8.2)
[2019-09-07] MEDS ORDERED: dilTIAZem HCL 30 MG TABLET (FP) PO ONE (01:06)
[2019-09-07] MEDS ORDERED: INSULIN REGULAR HUMAN 100 UNITS/ML *VIAL SQ ONE (01:06)
[2019-09-07 01:12] LABS: BASO % 0.2 % (0-2.0); HEMATOCRIT 34.7 % (35.4-49); HEMOGLOBIN 10.9 GM/dL (11.7-16.9); LYMPH % 12.1 % (8-40); MCH 26.6 pg (25.7-33.7); MCHC 31.5 g/dl (32.0-35.9); MEAN CELL VOLUME 84.3 fl (80-96); MONO % 5.8 % (3.8-10.2); NEUT % 81.9 % (42.8-82.8); PLATELET COUNT 88 K/MM3 (134-434); RBC 4.12 M/mm3 (4.00-5.60); RDW 15.6 % (11.9-15.9); WHITE BLOOD COUNT 4.7 K/mm3 (4.0-10.0)
[2019-09-07] MEDS ORDERED: dilTIAZem HCL 30 MG TABLET (FP) ONE (01:54)
[2019-09-07] MEDS ORDERED: INSULIN REGULAR HUMAN 100 UNITS/ML *VIAL ONE (01:55)
--- NOTE | 2019-09-07 02:49 | HP ---
CHIEF COMPLAINT: altered mental status PCP: Dr. Hess Cardio: Dr. Moreno Nephro: Dr. Del Cid/Dr. Swan HISTORY OF PRESENT ILLNESS: 79M w/ pmhx of CVA, CAD (s/p 5 stents), CHF, HTN/HLD, IDDM, RV thrombus (p reviously on AC), ESRD (on HD TThS), Hx of GI bleed (stopped AC 02/15) was brought to the ED by due to altered mental status. present at bedside for history. Per , pt has been getting weaker and more fatigued with noticeable gate instability over the past 3 days even with use of walker. Pt's PO intake has been poor over the last 3 days and as a result, pt's had not been giving the prescribed dose of his Lantus in order to avoid hypoglycemic event, although she admits to glucose measurements of 400-500s. Additionally, she noticed yesterday he had coughed up about 20cc of blood in the sink and was concerned for possible GI bleed. Denies any vallejo/d, n/v, chest pain, sob, abd pain, urinary/bowel symptoms. Denies sick contacts. ER course was notable for: (1) HR 123, afebrile, Pl 88, BUN/Cr 87.6/3.6, Glu 640, FOBT neg (2) Head CT neg, CXR neg. IV Diltiazem 10 mg x2, PO Diltiazem 30 x1 given. Novolin 10U given. (3) Nephro and cardio consulted Recent Travel: Denies PAST MEDICAL HISTORY: As per HPI PAST SURGICAL HISTORY: December 05 2017 - Renal angioplasty. 02/12/18 - Left AVF with stenosis. [place] (Jul) with multiple stent placement. Social History: Smoking: Denies Alcohol: Denies Drugs: Denies No recent travel Denies sick contacts Allergies No Known Allergies Allergy (Verified 09/06/19 22:33) HOME MEDICATIONS: Home Medications - Reconciled Medication Instructions Recorded Escitalopram Oxalate [Lexapro -] 5 mg PO HS tablet 02/27/18 Insulin Sliding Scale [Novolog 1 vial SQ TIDAC units 02/27/18 Vial Sliding Scale -] Rosuvastatin [Crestor -] 10 mg PO HS tablet 02/27/18 Tamsulosin HCl [Flomax -] 0.4 mg PO HS cap.er.24h 02/27/18 Calcium Acetate [Phoslo -] 667 mg PO TID 04/30/18 Insulin Glargine,Hum.rec.anlog 25 unit SQ HS 08/24/18 [Lantus] Midodrine HCl [Proamatine -] 5 mg PO Q48H 08/24/18 Clopidogrel Bisulfate [Plavix] 75 mg PO DAILY 09/07/19 Metoprolol Tartrate [Lopressor -] 12.5 mg PO Q48H 09/07/19 REVIEW OF SYSTEMS CONSTITUTIONAL: generalized weakness, malaise, loss of appetite Absent: fever, chills, diaphoresis, weight change HEENT: Absent: rhinorrhea, nasal congestion, throat pain, throat swelling, difficulty swallowing, mouth swelling, ear pain, eye pain, visual changes CARDIOVASCULAR: Absent: chest pain, syncope, palpitations, irregular heart rate, lightheadedness, peripheral edema RESPIRATORY: Absent: cough, shortness of breath, dyspnea with exertion, orthopnea, wheezing, stridor, hemoptysis GASTROINTESTINAL: Absent: abdominal pain, abdominal distension, nausea, vomiting, diarrhea, constipation, melena, hematochezia GENITOURINARY: Absent: dysuria, frequency, urgency, hesitancy, hematuria, flank pain, genital pain MUSCULOSKELETAL: Absent: myalgia, arthralgia, joint swelling, back pain, neck pain SKIN: Absent: rash, itching, pallor HEMATOLOGIC/IMMUNOLOGIC: Absent: easy bleeding, easy bruising, lymphadenopathy, frequent infections ENDOCRINE: Absent: unexplained weight gain, unexplained weight loss, heat intolerance, cold intolerance NEUROLOGIC: mental status changes Absent: headache, focal weakness or paresthesias, dizziness, unsteady gait, seizure, , bladder or bowel incontinence PSYCHIATRIC: Absent: anxiety, depression, suicidal or homicidal ideation, hallucinations. PHYSICAL EXAMINATION Vital Signs - 24 hr 09/06/19 09/07/19 22:29 01:34 Temperature 98.7 F Pulse Rate 113 H Pulse Rate [ 123 H Left Radial] Respiratory 15 19 Rate Blood Pressure 164/84 Blood Pressure 141/83 [Right Arm] O2 Sat by Pulse 100 97 Oximetry (%) GENERAL: AAOx3. NAD. Resting comfortably in bed. Slow to respond, but answers appropriately. HEENT: AT/NC. EOMI. Poor dentition. No pharyngeal erythema, lesions in oral mucosa. NECK: Normal range of motion, supple without lymphadenopathy, JVD, or masses. LUNGS: Bibasilar crackles in bases noted. Symmetric chest rise. No accessory muscle use noted. HEART: Irregularly irregular. No murmurs noted. ABDOMEN: Soft, NT/ND. Normoactive bowel sounds in all 4Qs. No masses, rebound tenderness, guarding or deformity. MUSCULOSKELETAL: Normal range of motion at all joints. No bony deformities or tenderness. No CVA tenderness. EXTREMITIES: No peripheral edema noted. Moves all extremities. LUE AV fistula; palpable thrill noted. NEUROLOGICAL: Cranial nerves II-XII intact. Normal speech. Facial symmetry noted. B/l sensation intact. PSYCHIATRIC: Cooperative. Good eye contact. Appropriate mood and affect. SKIN: Warm, dry, normal turgor, no rashes or lesions noted, normal capillary refill. CBC, BMP 09/07/19 01:05 09/07/19 00:04 Laboratory Tests 09/07/19 09/07/19 09/07/19 01:38 03:25 04:07 POC Glucometer 287 Stool Occult Blood Negative RPR Titer Pending ASSESSMENT/PLAN: 79M w/ pmhx of CVA, CAD (s/p 5 stents), CHF, HTN/HLD, IDDM, RV thrombus (previo usly on AC), ESRD (on HD TThS), Hx of GI bleed (stopped AC 02/15) was brought to the ED by due to altered mental status admitted for acute metabolic encephalopathy. #Acute Metabolic Encephalopathy; likely 2/2 hyperglycemia, poor oral intake -Pt has had poor oral intake and not given his prescribed insulin regimen - Per , has BGMs in the 400-500s at home. -Head CT neg, Glu 640, BUN/Cr 87.6/3.6 -In the ED, pt given Novolin 10U -TSH/RPR ordered -Folate/B12 wnl -PT #Hemoptysis; unknown etiology. -No visible ulcers/lesions in oral mucosa seen on exam. FOBT neg. Hgb stable at 10.9. -Pt had hx of GI bleed on previous hospital admission 02/15, however, pt's declined endoscopic evaluation -Cont to monitor #Afib w/ RVR; Initial HR 140s (per ED staff), 110-120s on EMR -Cont home med: Lopressor 12.5 BID -Cardio consulted (Dr. Moreno) - Pt's reports that he is unusually sensitive to beta-pradeep. States he was given BB in the past, but went into ? asystole so currently she gives Lopressor either once a day or twice a day. Will need proper evaluation by cardio for appropriate medication regimen for rate control of afib. #ESRD; (on HD TThS) -Nephro consulted (Dr. Del Cid) for continuation of HD schedule -Per , pt does not take Metoprolol on HD days Cont home med: Midodrine 5 mg prior to HD, Phoslo 667 TID #CAD; s/p multiple stents. Cont home med: Plavix 75, Crestor 10 #HTN/HLD; Stable. Cont home meds: Lopressor 12.5 BID, Crestor 10 #Hx of Depression; Cont home med: Lexapro 5 #IDDM; Uncontrolled. Initial BGM 640. -Pt not taking insulin regimen as prescribed Cont home meds: Lantus 25U, ISS #Hx of RV Thrombus; Per EMR, thrombus deemed to be absent on last 2 echoes as of 02/15. Per cardio, AC no longer required. Cont Plavix 75. #Ppx DVT: SCDs #FEN -no IVf -recheck lytes in AM (Cr, Glu) -Renal diet Dispo -admit to tele Visit type - Emergency Visit Emergency Visit: Yes ED Registration Date: 09/07/19 Care time: The patient presented to the Emergency Department on the above date and was hospitalized for further evaluation of their emergent condition. - New Patient This patient is new to me today: Yes Date on this admission: 09/07/19 - Critical Care Critical Care patient: No ATTENDING PHYSICIAN STATEMENT I saw and evaluated the patient. I reviewed the resident's note and discussed the case with the resident. I agree with the resident's findings and plan as documented. SUBJECTIVE: OBJECTIVE: ASSESSMENT AND PLAN:
--- NOTE | 2019-09-07 03:20 | PN ---
Teaching Attending Note Name of Resident: Charity Vitale ATTENDING PHYSICIAN STATEMENT I saw and evaluated the patient. I reviewed the resident's note and discussed the case with the resident. I agree with the resident's findings and plan as documented. 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 reported that patient's glucose has been high. He has not been missing any hemodialysis doses. reports that she gave him ice cream and thought that he had a glucose spike after the. Of note, patient had dental extraction performed 1 month ago. OBJECTIVE: Last Vital Signs Temp Pulse Resp BP Pulse Ox 98.7 F 123 H 19 141/83 98 09/06/19 22:29 09/07/19 01:34 09/07/19 01:34 09/07/19 01:34 09/07/19 03:15 On physical exam patient was oriented to person, place and time, not in any acute distress. Lungs are clear to auscultation bilaterally. Cardiovascular exam was S1, S2. Left arm AV fistula with good thrill and bruit. Abdomen soft, nontender. Lower extremities with no ulcers on feet or pedal edema. Abnormal Lab Results 09/07/19 09/07/19 09/07/19 00:04 00:04 00:04 Hgb Hct MCHC Plt Count PTT (Actin FS) 20.8 L POC VBG pO2 < 49 H BUN 87.6 H Creatinine 3.6 H Random Glucose 640 H* Calcium 8.2 L Albumin 2.9 L Urine Protein Urine Glucose (UA) 09/07/19 09/07/19 01:05 04:05 Hgb 10.9 L Hct 34.7 L D MCHC 31.5 L Plt Count 88 L D PTT (Actin FS) POC VBG pO2 BUN Creatinine Random Glucose Calcium Albumin Urine Protein 2+ H Urine Glucose (UA) 3+ H Chest x-ray reviewednoted to have left lung pleural effusion EKG showed A. fib ASSESSMENT AND PLAN: #Severe hyperglycemia with concurrent metabolic encephalopathypossibly secondary to medication versus diet noncompliance.Not DKA as there is no anion gap present. NovoLog sliding scale Basal insulin Diabetic/renal diet #A. fib with RVR Continue with home dose Lopressor Consult cardiologyDrMeredith Merino telemetry for medication adjustment #End-stage renal diseaseon Friday, , Friday Receives hemodialysis through left upper extremity AV fistula Consult nephrologyDrMeredith Del Cid Fluid restriction Sodium bicarb, vitamin Dergocalciferol, calcitriol, sodium bicarb 3 times daily #History of depression Continue with Lexapro 5 mg p.o. daily #CAD Continue with Plavix, statin #History of right ventricular thrombusnot on anticoagulation due to history of GI bleed on 02/15 DVT prophylaxisSCDs
[2019-09-07 04:30] LABS: URINE APPEARANCE Clear; URINE BILIRUBIN Negative (NEGATIVE); URINE COLOR Yellow; URINE GLUCOSE (UA) 3+ (NEGATIVE); URINE KETONE Negative (NEGATIVE); URINE LEUK ESTERASE Negative (NEGATIVE); URINE NITRITE Negative (NEGATIVE); URINE PROTEIN 2+ (NEGATIVE); URINE UROBILINOGEN 0.2 mg/dL (0.2-1.0)
[2019-09-07 04:43] LABS: COCAINE, UR NEGATIVE ng/ml (CUTOFF=300); METHADONE, UR NEGATIVE ng/ml (CUTOFF=300); OPIATES, URI NEGATIVE ng/ml (CUTOFF=300); PHENCYCLIDINE,URINE NEGATIVE ng/ml (CUTOFF=25); URINE AMPHETAMINES NEGATIVE ng/ml (CUTOFF=500); URINE BARBITURATES NEGATIVE ng/ml (CUTOFF=200); URINE BENZODIAZEPINES NEGATIVE ng/ml (CUTOFF=200)
[2019-09-07 06:59] LABS: BASO % 0.1 % (0-2.0); EOS % 0.1 % (0-4.5); HEMATOCRIT 34.4 % (35.4-49); HEMOGLOBIN 11.1 GM/dL (11.7-16.9); LYMPH % 13.5 % (8-40); MCH 26.7 pg (25.7-33.7); MCHC 32.4 g/dl (32.0-35.9); MEAN CELL VOLUME 82.5 fl (80-96); MEAN PLT VOLUME 10.6 fl (7.5-11.1); MONO % 6.7 % (3.8-10.2); NEUT % 79.6 % (42.8-82.8); PLATELET COUNT 86 K/MM3 (134-434); RBC 4.17 M/mm3 (4.00-5.60); RDW 15.1 % (11.9-15.9); WHITE BLOOD COUNT 4.9 K/mm3 (4.0-10.0)
[2019-09-07] MEDS ORDERED: INSULIN SLIDING SCALE (NOVOLOG) 1 VIAL SQ SCH (07:00)
[2019-09-07 07:28] LABS: ALBUMIN 2.8 g/dl (3.4-5.0); BILIRUBIN,TOTAL 0.4 mg/dL (0.2-1); BLOOD UREA NITROGEN 89.8 mg/dL (7-18); CALCIUM 8.6 mg/dL (8.5-10.1); CREATININE 3.7 mg/dL (0.55-1.3); MAGNESIUM 3.1 mg/dL (1.8-2.4); PHOSPHOROUS 3.4 mg/dL (2.5-4.9); POTASSIUM 4.4 mmol/L (3.5-5.1); TOT PROT 6.7 g/dl (6.4-8.2)
[2019-09-07 08:08] LABS: EPI CELLS 5 /HPF (0-5/HPF); HYALINE CASTS 2 /lpf (0-8); URINE BACTERIA 5 /hpf (NEGATIVE)
[2019-09-07] MEDS ORDERED: TAMSULOSIN HCL 0.4 MG CAP PO SCH (08:30)
--- NOTE | 2019-09-07 09:34 | HOSP ---
Physical Examination Vital Signs: Vital Signs Temperature 97.5 F L 09/07/19 07:31 Pulse Rate 110 H 09/07/19 07:31 Respiratory Rate 18 09/07/19 07:31 Blood Pressure 103/58 L 09/07/19 07:31 O2 Sat by Pulse Oximetry (%) 96 09/07/19 07:31 Labs: CBC, BMP 09/07/19 05:50 09/07/19 05:50 Hospitalist Encounter Assessment: 79M w/ pmhx of CVA, CAD (s/p 5 stents), CHF, HTN/HLD, IDDM, RV thrombus (previously on AC), ESRD (on HD TThS), Hx of GI bleed (stopped AC 02/15) was brought to the ED by due to altered mental status. present at bedside for history. Per , pt has been getting weaker and more fatigued with noticeable gate instability over the past 3 days even with use of walker. Pt's PO intake has been poor over the last 3 days and as a result, pt's had not been giving the prescribed dose of his Lantus in order to avoid hypoglycemic event, although she admits to glucose measurements of 400-500s. Additionally, she noticed yesterday he had coughed up about 20cc of blood in the sink and was concerned for possible GI bleed. #Acute Metabolic Encephalopathy; likely 2/2 hyperglycemia, poor oral intake -Pt has had poor oral intake and not given his prescribed insulin regimen - Per , has BGMs in the 400-500s at home. -Head CT neg, Glu 640, BUN/Cr 87.6/3.6 -In the ED, pt given Novolin 10U -TSH/RPR ordered -Folate/B12 wnl -PT #Hemoptysis; unknown etiology. -No visible ulcers/lesions in oral mucosa seen on exam. FOBT neg. Hgb stable at 10.9. -Pt had hx of GI bleed on previous hospital admission 02/15, however, pt's declined endoscopic evaluation -Cont to monitor #Afib w/ RVR; Initial HR 140s (per ED staff), 110-120s on EMR -Cont home med: Lopressor 12.5 BID -Cardio consulted (Dr. Moreno) - Pt's reports that he is unusually sensitive to beta-pradeep. States he was given BB in the past, but went into a systole so currently she gives Lopressor either once a day or twice a day. Will need proper evaluation by cardio for appropriate medication regimen for rate control of afib. #ESRD; (on HD TThS) -Nephro consulted (Dr. Del Cid) for continuation of HD schedule -Per , pt does not take Metoprolol on HD days Cont home med: Midodrine 5 mg prior to HD, Phoslo 667 TID #CAD; s/p multiple stents. Cont home med: Plavix 75, Crestor 10 #HTN/HLD; Stable. Cont home meds: Lopressor 12.5 BID, Crestor 10 #Hx of Depression; Cont home med: Lexapro 5 #IDDM; Uncontrolled. Initial BGM 640. -Pt not taking insulin regimen as prescribed Cont home meds: Lantus 25U, ISS #Hx of RV Thrombus; Per EMR, thrombus deemed to be absent on last 2 echoes as of 02/15. Per cardio, AC no longer required. Cont Plavix 75. #Ppx DVT: SCDs #FEN -no IVf -recheck lytes in AM (Cr, Glu) -Renal diet Dispo -admit to tele
[2019-09-07] MEDS ORDERED: MIDODRINE HCL 5 MG TABLET PO SCH (09:45)
[2019-09-07] MEDS ORDERED: METOPROLOL TARTRATE 25 MG TABLET (FP) PO SCH (10:00)
[2019-09-07] MEDS ORDERED: CLOPIDOGREL BISULFATE 75 MG TABLET (FP) PO SCH (10:00)
[2019-09-07] MEDS: CALCIUM ACETATE 667 MG CAPSULE (FP) PO SCH ×3 (10:01→19:34)
[2019-09-07] MEDS ORDERED: TAMSULOSIN HCL 0.4 MG CAP ONE (10:03)
[2019-09-07] MEDS ORDERED: CLOPIDOGREL BISULFATE 75 MG TABLET (FP) ONE (10:03)
--- NOTE | 2019-09-07 10:56 | PN ---
Progress Note, Physician Chief Complaint: Pt alert; says he came in to ER because he "vomited blood"; denies chest pain or dyspnea. Lying nearly flat; no respiratory distress. History of Present Illness: The patient is a 79 year old man (b. 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 Per the patient is normally aao x3. notes she gave the patient ice-cream and shortly after she noticed bright red blood from mouth (hemoptysis). notes the patient had dental extractions 1 month ago. Allergies: NKDA Surgical Hx: December 05 2017 - Renal angioplasty. 02/12/18 - Left AVF with stenosis. VA (Jul) with multiple stent placement. PCP: Coleman Hess Mechanical Design Engineer Facilities: Dr Moreno Web[employer] Commerce Architect: Dr Del Cid and Dr Smith - Current Medication List Current Medications: Active Medications Calcium Acetate (Phoslo -) 667 mg PO TIDCM [facility] Last Admin: 09/07/19 10:01 Dose: Not Given Documented by: Escitalopram Oxalate (Lexapro -) 5 mg PO HS [facility] Insulin Aspart (Novolog Vial Sliding Scale -) 1 vial SQ [facility]; Protocol Metoprolol Tartrate (Lopressor -) 12.5 mg PO Q48H [facility] Last Admin: 09/07/19 09:33 Dose: Not Given Documented by: Midodrine (Proamatine -) 5 mg PO TuThSa [facility] Rosuvastatin Calcium (Crestor -) 10 mg PO HS [facility] Tamsulosin HCl (Flomax -) 0.4 mg PO DAILY@0830 [facility] Last Admin: 09/07/19 10:13 Dose: 0.4 mg Documented by: - Objective Vital Signs: Vital Signs Temperature 97.5 F L 09/07/19 07:31 Pulse Rate 110 H 09/07/19 07:31 Respiratory Rate 18 09/07/19 07:31 Blood Pressure 103/58 L 09/07/19 07:31 O2 Sat by Pulse Oximetry (%) 96 09/07/19 07:31 Constitutional: Yes: Calm Eyes: Yes: WNL HENT: Yes: WNL Neck: Yes: WNL Cardiovascular: Yes: Tachycardia, S1 (varies in intensity), S2 Genitourinary: Yes: Other (on hemodialysis 3x/wk). No: Anuria Musculoskeletal: Yes: Muscle Weakness Extremities: Yes: Cool Edema: Yes Edema: LLE: Trace, RLE: Trace Peripheral Pulses WNL: No Peripheral Pulses: Left Doralis Pedis: 1+, Right Dorsalis Pedis: 1+ Integumentary: Yes: Other (AV fistula) Psychiatric: Yes: Alert, Oriented Labs: CBC, BMP 09/07/19 05:50 09/07/19 05:50 INR, PTT INR 0.97 (0.83-1.09) 09/07/19 00:04 Abnormal Lab Results 09/07/19 09/07/19 05:50 05:50 Hgb 11.1 L Hct 34.4 L Plt Count 86 L BUN 89.8 H Creatinine 3.7 H Random Glucose 284 H Magnesium 3.1 H Albumin 2.8 L - ....Imaging Chest X-ray: Image Reviewed Cat Scan: Image Reviewed (head CT: no acute pathology; old infarct) Problem List - Problems (1) Ventricular mural thrombus following VA Assessment/Plan: thrombi read as resolved on most recent ECHO. No longeer on warfarin or DOAC (hx GI bleed), though he does have PAF. ECHO this admission is pending. Code(s): I23.6 - THOMBOS OF ATRIUM/AURIC APPEND/VENTR CURRENT COMP FOL AMI (2) Atrial fibrillation with RVR Assessment/Plan: ? Was on diltiazem. Now on metoprolol for HR control.TNI 0.03. TSH 1.28. Hx of GI bleed (with hemoptysis this admission) has made restarting DOAC problematic. ECHO pending (hx preserved LVEF, regional wall motion abnormalities); hx CAD and VA--> coronary stents. Code(s): I48.91 - UNSPECIFIED ATRIAL FIBRILLATION (3) Acute on chronic diastolic CHF (congestive heart failure) Assessment/Plan: + JVD CXR: CHF (slightly improved). F/u BUn/Cr, electrolytes, daily weight, Is and Os. Fluid overload: for hemodialysis today. Code(s): I50.33 - ACUTE ON CHRONIC DIASTOLIC (CONGESTIVE) HEART FAILURE (4) Anemia Assessment/Plan: Hb 11.1; f/u post-dialysis. Code(s): D64.9 - ANEMIA, UNSPECIFIED Qualifiers: Chronic kidney disease stage: on chronic dialysis Qualified Code(s): N18.6 - End stage renal disease; D63.1 - Anemia in chronic kidney disease; Z99.2 - Dependence on renal dialysis (5) Anxiety and depression Code(s): F41.8 - OTHER SPECIFIED ANXIETY DISORDERS (6) Diabetes Assessment/Plan: Glucose initially >600; now 280. F/u serially; adjust diabetic medications accordingly. Code(s): E11.9 - TYPE 2 DIABETES MELLITUS WITHOUT COMPLICATIONS Qualifiers: Diabetes mellitus type: type 2 Diabetes mellitus terminal system operator insulin use: with penitentiary use Diabetes mellitus complication detail: with other ophthalmic complication (7) ESRD (end stage renal disease) Assessment/Plan: For hemodialysis today. May use metoprolol 2.5 mg IVP if AF with RVR is difficult to control. Code(s): N18.6 - END STAGE RENAL DISEASE (8) Fluid overload Code(s): E87.70 - FLUID OVERLOAD, UNSPECIFIED Qualifiers: Hypervolemia type: unspecified Qualified Code(s): E87.70 - Fluid overload, unspecified (9) Hx of heart artery stent Code(s): Z95.5 - PRESENCE OF CORONARY ANGIOPLASTY IMPLANT AND GRAFT (10) Hyperlipidemia Assessment/Plan: on rosuvastatin. F/u lipid profile. Code(s): E78.5 - HYPERLIPIDEMIA, UNSPECIFIED Qualifiers: Hyperlipidemia type: unspecified Qualified Code(s): E78.5 - Hyperlipidemia, unspecified (11) Hypotension Code(s): I95.9 - HYPOTENSION, UNSPECIFIED Qualifiers: Hypotension type: unspecified hypotension type Qualified Code(s): I95.9 - Hypotension, unspecified (12) Mental status change resolved Assessment/Plan: Pt initially brought in for AMS change; now able to recall events leading to ER visit, knows where he is, recognizes people. Code(s): Z86.59 - PERSONAL HISTORY OF OTHER MENTAL AND BEHAVIORAL DISORDERS
--- NOTE | 2019-09-07 11:00 | EKG ---
Test Reason : Blood Pressure : / mmHG Vent. Rate : 129 BPM Atrial Rate : 129 BPM P-R Int : 000 ms QRS Dur : 096 ms QT Int : 272 ms P-R-T Axes : 000 -63 112 degrees QTc Int : 398 ms POOR DATA QUALITY, INTERPRETATION MAY BE ADVERSELY AFFECTED ATRIAL FIBRILLATION WITH RAPID VENTRICULAR RESPONSE LEFT AXIS DEVIATION VOLTAGE CRITERIA FOR LEFT VENTRICULAR HYPERTROPHY INFERIOR INFARCT (CITED ON OR BEFORE 09-APR-2016) ANTEROLATERAL INFARCT (CITED ON OR BEFORE 02-JAN-2015) ABNORMAL ECG WHEN COMPARED WITH ECG OF 06-FEB-2019 10:48, NO SIGNIFICANT CHANGE WAS FOUND Confirmed by Leroy Ham MD ([id number]) on 09/07/2019 11:00:21 AM Referred By: Confirmed By:Leroy Ham MD
[2019-09-07] MEDS ORDERED: CEFTRIAXONE 1 GM in DEXTROSE 5%-WATER - 50 ML IVPB ONE (11:15)
[2019-09-07] MEDS ORDERED: METOPROLOL TARTRATE 5 MG/5 ML VIAL IVPUSH PRN (11:18)
--- NOTE | 2019-09-07 11:51 | ECHO ---
Version: 1 Name: ONIEL DAVIS Exam: Adult Echocardiogram Study Date: 09/07/2019, 8:17 AM Age: 79 Years MMode/2D Measurements & Calculations IVSd: 1.26 cm LVIDs: 4.2 cm LVIDd: 5.4 cm LVPWd: 0.80 cm ACS: 2.02 cm Ao root diam: 3.4 cm LA dimension: 4.3 cm Doppler Measurements & Calculations MV E max luigi: 104.1 cm/sec MV A max luigi: 30.6 cm/sec MV E/A: 3.4 MR max P.7 mmHg Ao max P.1 mmHg Ao mean P.36 mmHg Ao V2 max: 100.2 cm/sec TR max luigi: 251.1 cm/sec TR max P.2 mmHg Procedure A complete two-dimensional transthoracic echocardiogram was performed (2D, M-mode, Doppler and color flow Doppler). Left Ventricle The left ventricle is normal in size. Ejection Fraction = 50%. E/A reversal consistent with but not diagnostic of poor LV compliance. There is apical akinesis. There is no thrombus. Right Ventricle The right ventricle is normal in size and function. Atria The left atrium is mildly dilated. Right atrial size is normal. Mitral Valve There is mild mitral annular calcification. There is mild mitral regurgitation. Tricuspid Valve The tricuspid valve is not well visualized. There is trace tricuspid regurgitation. Right ventricula r systolic pressure is 25 mmhg. Aortic Valve There is trivial aortic valve thickening. Pulmonic Valve The pulmonic valve is not well visualized. Great Vessels The aortic root is normal size. Pericardium/Pleura There is no pericardial effusion. There is no pleural effusion. Summary Statements The left ventricle is normal in size. There is apical akinesis. Ejection Fraction = 50%. There is no thrombus. The right ventricle is normal in size and function. The left atrium is mildly dilated. There is mild mitral annular calcification. There is mild mitral regurgitation. There is trace tricuspid regurgitation. MD Leroy Ham 09/07/2019, 10:50 AM Ordering Physician: Coleman Moreno Performed By: Whitney Mujica
--- NOTE | 2019-09-07 12:12 | CON.NEP ---
Consult Consult Specialty:: Nephrology Reason for Consultation:: ESRD on HD - History of Present Illness Chief Complaint: AMS History of Present Illness: This is a 79 year old [place] gentleman with history of ESRD on HD, CVA, CHF, CAD, Hx of RV thrombus who presented to the ED with lethargy and AMS. He is accompanied by his . Seen and examined in the ER. Last dialysis was Friday. Denies any fevers at home. Has slight cough and minimal sputum production. No chest pain or palpitations. No N/V/D. Oral intake has been poor. No change in vision or extremity weakness. No leg swelling. 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 No: Addictions, Bipolar, Depression, Panic, Psychosis, Schizophrenia, Other Endocrine: Yes: Diabetes Mellitus. No: [place]'s Disease, [place]'s Disease, Diabetes Insipidus, Hyperparathyroidism, Hyperthyroidism, Hypothyroidism, Osteopenia, SIADH, Other - Past Surgical History Past Surgical History: Yes: AV Fistula/Graft, Stent (Cardiac stenting, shoulder surgery, tunnel catheter placement) - Alcohol/Substance Use Hx Alcohol Use: No History of Substance Use: reports: None - Smoking History Smoking history: Never smoked Have you smoked in the past 12 months: No - Social History Usual Living Arrangement: With Spouse ADL: Family Assistance History of Recent Travel: No Home Medications - Allergies Allergies/Adverse Reactions: Allergies Allergy/AdvReac Type Severity Reaction Status Date / Time No Known Allergies Allergy Verified 09/06/19 22:33 - Home Medications Home Medications: Ambulatory Orders Escitalopram Oxalate [Lexapro -] 5 mg PO HS tablet 02/27/18 Insulin Sliding Scale [Novolog Vial Sliding Scale -] 1 vial SQ TIDAC units 02/27/18 Rosuvastatin [Crestor -] 10 mg PO HS tablet 02/27/18 Tamsulosin HCl [Flomax -] 0.4 mg PO HS cap.er.24h 02/27/18 Calcium Acetate [Phoslo -] 667 mg PO TID 04/30/18 Insulin Glargine,Hum.rec.anlog [Lantus] 25 unit SQ HS 08/24/18 Midodrine HCl [Proamatine -] 5 mg PO Q48H 08/24/18 Clopidogrel Bisulfate [Plavix] 75 mg PO DAILY 09/07/19 Metoprolol Tartrate [Lopressor -] 12.5 mg PO Q48H 09/07/19 Family Medical History Family History: Unremarkable Review of Systems - Review of Systems Constitutional: reports: Lethargy, Loss of Appetite, Weakness. denies: Chills, Fever, Night Sweats, Unintentional Wgt. Loss Eyes: reports: No Symptoms HENT: reports: No Symptoms Neck: reports: No Symptoms Cardiovascular: reports: No Symptoms Respiratory: reports: Cough, SOB on Exertion. denies: Exercise Intolerance, Hemoptysis, Orthopnea, PND, Snoring, SOB, Wheezing Gastrointestinal: reports: No Symptoms Genitourinary: reports: No Symptoms Musculoskeletal: reports: No Symptoms Integumentary: reports: No Symptoms Neurological: reports: Change in LOC, Weakness. denies: Change in Speech, Confusion, Dizziness, Headache, Incoordination, Numbness, Parasthesia, Pre- Existing Deficit, Seizure, Syncope, Tremors, Unsteady Gait Endocrine: reports: No Symptoms Hematology/Lymphatic: reports: No Symptoms Nephrology Consult - Height Height: 5 ft 7 in - Weight Weight: 65 kg - BMI Body Mass Index (BMI): 22.4 - Lab Results CBC,BMP: CBC, BMP 09/07/19 05:50 09/07/19 05:50 Anion Gap: Anion Gap Anion Gap 11 MMOL/L (8-16) 09/07/19 05:50 - Imaging Chest X-ray: Report Reviewed, Image Reviewed Cat Scan: Report Reviewed - Physical Examination Vital Signs: Vital Signs Temperature 97.5 F L 09/07/19 07:31 Pulse Rate 110 H 09/07/19 07:31 Respiratory Rate 18 09/07/19 07:31 Blood Pressure 103/58 L 09/07/19 07:31 O2 Sat by Pulse Oximetry (%) 96 09/07/19 07:31 Constitutional: Yes: No Distress, Calm Eyes: Yes: Conjunctiva Clear HENT: Yes: Atraumatic, Normocephalic Neck: Yes: Supple Cardiovascular: Yes: Regular Rate and Rhythm, S1. No: JVD, Murmur, Rub Respiratory: Yes: Regular, Diminished, Rales, Rhonchi Gastrointestinal: Yes: Normal Bowel Sounds, Soft. No: Abdomen, Obese, Ascites, Distention, Palpable Mass Access for Hemodialysis: AV Fistula Musculoskeletal: Yes: WNL Extremities: No: Cold, Cool, Cyanosis, Erythema Edema: Yes Edema: LLE: Trace, RLE: Trace Neurological: Yes: Alert, Oriented, Lethargy Psychiatric: Yes: Alert Assessment/Plan 79 year old [place] gentleman with history of ESRD on HD, CVA, CHF, CAD, Hx of RV thrombus who presented to the ED with lethargy and AMS. 1. Lethargy/AMS r/o CVA vs. infection 2. ESRD on HD 3. Fluid overload/CHF 4. Hx of CVA 5. CAD r/o ACS 7. Tachycardia 8. CKD related anemia 9. Renal Osteodystrophy 10. Thrombocytopenia Will arrange for urgent HD as an inpatient today with UF as tolerated will request 4 hour tx time to allow for UF with less risk for hypotension will given Albumin with dialysis as needed will check blood cultures on Hd, to get empiric vanco and ceftriaxone post HD Cardiology following, cardiac enzymes negative x 1 No heparin with HD given low plts Renal diet, 1.2L fluid restriction if mental status is stable no overt pathology found can consider discharge post dialysis Thank you Florencio Del Cid DO
[2019-09-07] MEDS ORDERED: SODIUM CHLORIDE 250 ML IV PRN (14:41)
[2019-09-07] MEDS ORDERED: VANCOMYCIN 1 GRAM (PRE-DOCKED) 1,000 MG/250 ML BAG IVPB ONE (14:45)
[2019-09-07] MEDS: ALBUMIN HUMAN 25% 12.5 GM/50 ML VIAL IVPB SCH ×2 (17:09→17:10)
--- NOTE | 2019-09-07 17:49 | DS ---
Physical Exam: SUBJECTIVE: Patient seen and examined OBJECTIVE: Vital Signs Period Temp Pulse Resp BP Sys/Simons Pulse Ox Last 24 Hr 97.5 F-98.7 F 79-123 15-19 103-164/58-94 96-100 PHYSICAL EXAM GENERAL: AAOx3. NAD. Resting comfortably in bed. Slow to respond, but answers appropriately. HEENT: AT/NC. EOMI. Poor dentition. No pharyngeal erythema, lesions in oral mucosa. NECK: Normal range of motion, supple without lymphadenopathy, JVD, or masses. LUNGS: CTA after dialysis. Symmetric chest rise. No accessory muscle use noted. HEART: Irregularly irregular. No murmurs noted. ABDOMEN: Soft, NT/ND. . MUSCULOSKELETAL: Normal range of motion at all joints. No bony deformities or tenderness. No CVA tenderness. EXTREMITIES: No peripheral edema noted. Moves all extremities. LUE AV fistula; palpable thrill noted. NEUROLOGICAL: Cranial nerves II-XII intact. Normal speech. Facial symmetry noted. B/l sensation intact. PSYCHIATRIC: Cooperative. Good eye contact. Appropriate mood and affect. SKIN: Warm, dry, normal turgor, no rashes or lesions noted, normal capillary refill. LABS Laboratory Results - last 24 hr 09/07/19 09/07/19 09/07/19 00:04 00:04 00:04 WBC Cancelled Corrected WBC (auto) Cancelled RBC Cancelled Hgb Cancelled Hct Cancelled MCV Cancelled MCH Cancelled MCHC Cancelled RDW Cancelled Plt Count Cancelled MPV Cancelled Absolute Neuts (auto) Cancelled Absolute Lymphs (auto) Cancelled Absolute Monos (auto) Cancelled Absolute Eos (auto) Cancelled Absolute Basos (auto) Cancelled Add Manual Diff Cancelled Neutrophils % Cancelled Lymphocytes % Cancelled Monocytes % Cancelled Eosinophils % Cancelled Basophils % Cancelled Nucleated RBC % Cancelled Platelet Estimate Cancelled Platelet Comment Cancelled Normal RBC Morphology Cancelled PT with INR 11.50 INR 0.97 PTT (Actin FS) 20.8 L VBG pH 7.36 POC VBG pCO2 47.5 POC VBG pO2 < 49 H VBG HCO3 26.4 VBG O2 Sat (Red) 75.1 VBG Base Excess 1.1 Sodium Potassium Chloride Carbon Dioxide Anion Gap BUN Creatinine Est GFR (CKD-EPI)AfAm Est GFR (CKD-EPI)NonAf POC Glucometer Random Glucose Lactic Acid Calcium Phosphorus Magnesium Total Bilirubin AST ALT Alkaline Phosphatase Troponin I Total Protein Albumin Vitamin B12 Serum Folate TSH Urine Color Urine Appearance Urine pH Ur Specific [place] Urine Protein Urine Glucose (UA) Urine Ketones Urine Blood Urine Nitrite Urine Bilirubin Urine Urobilinogen Ur Leukocyte Esterase Urine Casts (Auto) U Epithel Cells (Auto) Urine Bacteria (Auto) Stool Occult Blood Opiates Screen Methadone Screen Barbiturate Screen Phencyclidine Screen Ur Amphetamines Screen MDMA (Ecstasy) Screen Benzodiazepines Screen Cocaine Screen U Marijuana (THC) Screen RPR Titer Anti-A Titer Blood Type Antibody Screen 09/07/19 09/07/19 09/07/19 00:04 00:04 00:04 WBC Corrected WBC (auto) RBC Hgb Hct MCV MCH MCHC RDW Plt Count MPV Absolute Neuts (auto) Absolute Lymphs (auto) Absolute Monos (auto) Absolute Eos (auto) Absolute Basos (auto) Add Manual Diff Neutrophils % Lymphocytes % Monocytes % Eosinophils % Basophils % Nucleated RBC % Platelet Estimate Platelet Comment Normal RBC Morphology PT with INR INR PTT (Actin FS) VBG pH POC VBG pCO2 POC VBG pO2 VBG HCO3 VBG O2 Sat (Red) VBG Base Excess Sodium 136 Potassium 5.1 Chloride 101 Carbon Dioxide 24 Anion Gap 11 BUN 87.6 H Creatinine 3.6 H Est GFR (CKD-EPI)AfAm 17.43 Est GFR (CKD-EPI)NonAf 15.04 POC Glucometer Random Glucose 640 H* Lactic Acid 1.6 Calcium 8.2 L Phosphorus Magnesium Total Bilirubin 0.3 AST 32 ALT 27 Alkaline Phosphatase 97 Troponin I 0.03 Total Protein 6.9 Albumin 2.9 L Vitamin B12 Serum Folate TSH Urine Color Urine Appearance Urine pH Ur Specific [place] Urine Protein Urine Glucose (UA) Urine Ketones Urine Blood Urine Nitrite Urine Bilirubin Urine Urobilinogen Ur Leukocyte Esterase Urine Casts (Auto) U Epithel Cells (Auto) Urine Bacteria (Auto) Stool Occult Blood Opiates Screen Methadone Screen Barbiturate Screen Phencyclidine Screen Ur Amphetamines Screen MDMA (Ecstasy) Screen Benzodiazepines Screen Cocaine Screen U Marijuana (THC) Screen RPR Titer Anti-A Titer Cancelled Blood Type Cancelled Antibody Screen Cancelled 09/07/19 09/07/19 09/07/19 01:05 01:38 03:25 WBC 4.7 Corrected WBC (auto) RBC 4.12 Hgb 10.9 L Hct 34.7 L D MCV 84.3 MCH 26.6 MCHC 31.5 L RDW 15.6 Plt Count 88 L D MPV 11.0 Absolute Neuts (auto) 3.9 Absolute Lymphs (auto) Absolute Monos (auto) Absolute Eos (auto) Absolute Basos (auto) Add Manual Diff Neutrophils % 81.9 Lymphocytes % 12.1 Monocytes % 5.8 Eosinophils % 0.0 D Basophils % 0.2 Nucleated RBC % 0 Platelet Estimate Platelet Comment Normal RBC Morphology PT with INR INR PTT (Actin FS) VBG pH POC VBG pCO2 POC VBG pO2 VBG HCO3 VBG O2 Sat (Red) VBG Base Excess Sodium Potassium Chloride Carbon Dioxide Anion Gap BUN Creatinine Est GFR (CKD-EPI)AfAm Est GFR (CKD-EPI)NonAf POC Glucometer Random Glucose Lactic Acid Calcium Phosphorus Magnesium Total Bilirubin AST ALT Alkaline Phosphatase Troponin I Total Protein Albumin Vitamin B12 869 Serum Folate 12 TSH Urine Color Urine Appearance Urine pH Ur Specific [place] Urine Protein Urine Glucose (UA) Urine Ketones Urine Blood Urine Nitrite Urine Bilirubin Urine Urobilinogen Ur Leukocyte Esterase Urine Casts (Auto) U Epithel Cells (Auto) Urine Bacteria (Auto) Stool Occult Blood Negative Opiates Screen Methadone Screen Barbiturate Screen Phencyclidine Screen Ur Amphetamines Screen MDMA (Ecstasy) Screen Benzodiazepines Screen Cocaine Screen U Marijuana (THC) Screen RPR Titer Anti-A Titer Blood Type Antibody Screen 09/07/19 09/07/19 09/07/19 03:25 04:05 04:05 WBC Corrected WBC (auto) RBC Hgb Hct MCV MCH MCHC RDW Plt Count MPV Absolute Neuts (auto) Absolute Lymphs (auto) Absolute Monos (auto) Absolute Eos (auto) Absolute Basos (auto) Add Manual Diff Neutrophils % Lymphocytes % Monocytes % Eosinophils % Basophils % Nucleated RBC % Platelet Estimate Platelet Comment Normal RBC Morphology PT with INR INR PTT (Actin FS) VBG pH POC VBG pCO2 POC VBG pO2 VBG HCO3 VBG O2 Sat (Red) VBG Base Excess Sodium Potassium Chloride Carbon Dioxide Anion Gap BUN Creatinine Est GFR (CKD-EPI)AfAm Est GFR (CKD-EPI)NonAf POC Glucometer Random Glucose Lactic Acid Calcium Phosphorus Magnesium Total Bilirubin AST ALT Alkaline Phosphatase Troponin I Total Protein Albumin Vitamin B12 Serum Folate TSH Urine Color Yellow Urine Appearance Clear Urine pH 5.0 Ur Specific [place] 1.020 Urine Protein 2+ H Urine Glucose (UA) 3+ H Urine Ketones Negative Urine Blood Trace-lysed Urine Nitrite Negative Urine Bilirubin Negative Urine Urobilinogen 0.2 Ur Leukocyte Esterase Negative Urine Casts (Auto) 2 U Epithel Cells (Auto) 5 Urine Bacteria (Auto) 5 Stool Occult Blood Opiates Screen Negative Methadone Screen Negative Barbiturate Screen Negative Phencyclidine Screen Negative Ur Amphetamines Screen Negative MDMA (Ecstasy) Screen Negative Benzodiazepines Screen Negative Cocaine Screen Negative U Marijuana (THC) Screen Negative RPR Titer Nonreactive Anti-A Titer Blood Type Antibody Screen 09/07/19 09/07/19 09/07/19 04:07 05:50 05:50 WBC 4.9 Corrected WBC (auto) RBC 4.17 Hgb 11.1 L Hct 34.4 L MCV 82.5 MCH 26.7 MCHC 32.4 RDW 15.1 Plt Count 86 L MPV 10.6 Absolute Neuts (auto) 3.9 Absolute Lymphs (auto) Absolute Monos (auto) Absolute Eos (auto) Absolute Basos (auto) Add Manual Diff Neutrophils % 79.6 Lymphocytes % 13.5 Monocytes % 6.7 Eosinophils % 0.1 D Basophils % 0.1 Nucleated RBC % 0 Platelet Estimate Platelet Comment Normal RBC Morphology PT with INR INR PTT (Actin FS) VBG pH POC VBG pCO2 POC VBG pO2 VBG HCO3 VBG O2 Sat (Red) VBG Base Excess Sodium 140 Potassium 4.4 Chloride 103 Carbon Dioxide 27 Anion Gap 11 BUN 89.8 H Creatinine 3.7 H Est GFR (CKD-EPI)AfAm 16.86 Est GFR (CKD-EPI)NonAf 14.55 POC Glucometer 287 Random Glucose 284 H Lactic Acid Calcium 8.6 Phosphorus 3.4 Magnesium 3.1 H Total Bilirubin 0.4 AST 28 ALT 25 Alkaline Phosphatase 91 Troponin I Total Protein 6.7 Albumin 2.8 L Vitamin B12 Serum Folate TSH 1.28 D Urine Color Urine Appearance Urine pH Ur Specific [place] Urine Protein Urine Glucose (UA) Urine Ketones Urine Blood Urine Nitrite Urine Bilirubin Urine Urobilinogen Ur Leukocyte Esterase Urine Casts (Auto) U Epithel Cells (Auto) Urine Bacteria (Auto) Stool Occult Blood Opiates Screen Methadone Screen Barbiturate Screen Phencyclidine Screen Ur Amphetamines Screen MDMA (Ecstasy) Screen Benzodiazepines Screen Cocaine Screen U Marijuana (THC) Screen RPR Titer Anti-A Titer Blood Type Antibody Screen HOSPITAL COURSE: Date of Admission:09/07/19 Date of Discharge: 09/07/19 DISCHARGE YOUR VISIT You came to the hospital because MEDICATIONS Please continue to take your home medications as prescribed. There was XXXXX changes DIET Continue your home diet ADDITIONAL CARE Please make an appointment to see your primary care provider, [id number] 1 week from today. ADDITIONAL INFORMATION Please call 911 or come directly to the emergency department if you experience unusual headache, vision change, shortness of breath, chest pain, numbness, tingling, loss of alertness/awareness, loss of function, unusual bleeding or any alarming symptoms. Thank you for allowing me to care for you. PAULETTE Avila, [facility] [phone] Minutes to complete discharge: 35 Discharge Summary Problems reviewed: Yes Reason For Visit: ATRIAL FIBRILLATION WITH RAPID VENTRICULAR RESPONS Current Active Problems Atrial fibrillation with RVR (Acute) Hyperglycemia (Acute) Mental status change resolved (Acute) Ventricular mural thrombus following LA (Acute) Weakness (Acute) Hospital Course: HCT done without acute pathology. TTE unchanged from 2018. Urgently dialyzed and metal status improved. Vanco and ceftriaxone given. is returned physician and would like pt to return to home Condition: Improved - Instructions Diet, Activity, Other Instructions: DISCHARGE YOUR VISIT You came to the hospital because you had a change in mental status. A Head CT was done that was negative. An echocardiogram that was unchanged from the previous one in 2018. You were urgently dialyzed and your mental status improved. You were given a dose of vancomycin and rocpehin. MEDICATIONS Please continue to take your home medications as prescribed. There was no changes DIET Continue your home diet. Try to increase your calories ADDITIONAL CARE Please make an appointment to see your primary care provider, Dr Escalante 1 week from today. ADDITIONAL INFORMATION Please call 911 or come directly to the emergency department if you experience unusual headache, vision change, shortness of breath, chest pain, numbness, tingling, loss of alertness/awareness, loss of function, unusual bleeding or any alarming symptoms. Thank you for allowing me to care for you. PAULETTE Avila, KATHERINE [facility] [phone] Referrals: Coleman Hess MD [Primary Care Provider] - Disposition: HOME - Home Medications Comprehensive Discharge Medication List: Ambulatory Orders Escitalopram Oxalate [Lexapro -] 5 mg PO HS tablet 02/27/18 Insulin Sliding Scale [Novolog Vial Sliding Scale -] 1 vial SQ TIDAC units 02/27/18 Rosuvastatin [Crestor -] 10 mg PO HS tablet 02/27/18 Tamsulosin HCl [Flomax -] 0.4 mg PO HS cap.er.24h 02/27/18 Calcium Acetate [Phoslo -] 667 mg PO TID 04/30/18 Insulin Glargine,Hum.rec.anlog [Lantus] 25 unit SQ HS 08/24/18 Midodrine HCl [Proamatine -] 5 mg PO Q48H 08/24/18 Clopidogrel Bisulfate [Plavix] 75 mg PO DAILY 09/07/19 Metoprolol Tartrate [Lopressor -] 12.5 mg PO Q48H 09/07/19 Problem List - Problems (1) Mental status change resolved Code(s): Z86.59 - PERSONAL HISTORY OF OTHER MENTAL AND BEHAVIORAL DISORDERS (2) CVA (cerebral infarction) Code(s): I63.9 - CEREBRAL INFARCTION, UNSPECIFIED Qualifiers: Cerebral infarction mechanism: unspecified mechanism Qualified Code(s): I63.9 - Cerebral infarction, unspecified (3) Chronic diastolic (congestive) heart failure Code(s): I50.32 - CHRONIC DIASTOLIC (CONGESTIVE) HEART FAILURE (4) Diabetes Code(s): E11.9 - TYPE 2 DIABETES MELLITUS WITHOUT COMPLICATIONS Qualifiers: Diabetes mellitus type: type 2 Diabetes mellitus prison insulin use: with prison use Diabetes mellitus complication detail: with other ophthalmic complication This patient is new to me today: Yes Date on this admission: 09/07/19 Emergency Visit: Yes ED Registration Date: 09/07/19 Care time: The patient presented to the Emergency Department on the above date and was hospitalized for further evaluation of their emergent condition. Critical Care patient: No - Discharge Referral Referred to [facility] Med P.C.: No
[2019-09-07 19:32] VITALS: BP 106/64; PULSE 112; TEMP 100.7
[2019-09-07] MEDS ORDERED: ROSUVASTATIN CA 10 MG TABLET (FP) PO SCH (22:00)
[2019-09-07] MEDS ORDERED: ESCITALOPRAM OXALATE 10 MG TABLET PO SCH (22:00)
[2019-09-08 22:08] LABS: HEP B CORE AB, TOT Negative (Negative)
== END 2019-09-07 21:00 | disposition home or self-care (01) | DRG 640 ==
LOC: JER 22:22 → JERBED 09-07 01:09
PROVIDERS: ADMIT Internal Medicine; ATTEND Nurse Practitioner Acute Care
PROC: 5A1D70Z Performance of Urinary Filtration, Intermittent, Less than 6 Hours Per Day (ICD-10-PCS; principal; 2019-09-07)
DX: E87.70 Fluid overload, unspecified (principal); N18.6 End stage renal disease; G93.41 Metabolic encephalopathy; I13.2 Hypertensive heart and chronic kidney disease with heart failure and with stage 5 chronic kidney disease, or end stage renal disease; I50.32 Chronic diastolic (congestive) heart failure; R04.2 Hemoptysis; N40.0 Benign prostatic hyperplasia without lower urinary tract symptoms; I25.10 Atherosclerotic heart disease of native coronary artery without angina pectoris; E78.5 Hyperlipidemia, unspecified; I25.2 Old myocardial infarction; R00.0 Tachycardia, unspecified; F41.8 Other specified anxiety disorders; D63.1 Anemia in chronic kidney disease; E11.65 Type 2 diabetes mellitus with hyperglycemia; I48.0 Paroxysmal atrial fibrillation; E11.22 Type 2 diabetes mellitus with diabetic chronic kidney disease; N25.0 Renal osteodystrophy; Z99.2 Dependence on renal dialysis; Z95.5 Presence of coronary angioplasty implant and graft; Z86.73 Personal history of transient ischemic attack (TIA), and cerebral infarction without residual deficits; Z91.14 Patient's other noncompliance with medication regimen; Z86.59 Personal history of other mental and behavioral disorders
CPT/HCPCS: 36415; 70450-TC; 71045-TC-FY; 80053; 80307; 81003; 82272; 82607; 82746; 82803; 82962; 83605; 83735; 84100; 84443; 84484; 85025; 85610; 85730; 86593; 86704; 86706; 86707; 86708; 86709; 86803; 87040; 87086; 87340; 93005; 93010; 93306-TC; 99285-25